=== PATIENT | male | born 1960 | race Caucasian/White ===

== ENCOUNTER → 2017-11-30 09:32 | Outpatient (CLI) | payer OTHER, SELFPAY ==
[2017-11-30 12:21] LABS: ALB/GLOB Ratio 0.9 RATIO (0.9-2.4); AST(SGOT) 29 U/L (15-37); Alanine Aminotransfer ALT/SGPT 60 U/L (16-61); Albumin, Serum 3.5 g/dL (3.2-5.0); Alkaline Phosphatase 19 U/L (45-117); Anion Gap 6 (5-15); BUN 20 mg/dL (7-18); BUN/Creat Ratio 16.7 RATIO (10-20); Calcium,Total 8.7 mg/dL (8.5-10.1); Chloride 103 mmol/L (98-107); Cholesterol 179 mg/dL (200); EST Glomerular Filtration Rate 66 mL/min (>60); Est Glom Filt Rate - Afr Amer 80 mL/min (>60); Globulin 3.8 g/dL (2.2-4.2); Glucose 101 mg/dL (74-106); High Density Lipoprotein 44 mg/dL; PSA,Total - Annual Screen 0.57 ng/mL (0.00-4.00); Potassium 3.9 mmol/L (3.5-5.1); Protein, Total 7.3 g/dL (6.4-8.2); Sodium Level 138 mmol/L (136-145); Triglycerides 98 mg/dL; Very Low Density Lipoprotein 20 mg/dL (5-40)
== END ==
PROVIDERS: Family Provider Family Medicine; PCP Family Medicine; Visit Provider Family Medicine
DX: I10 Essential (primary) hypertension (principal); R35.0 Frequency of micturition
CPT/HCPCS: 36415; 80053; 80061; 84153; G0103

== ENCOUNTER → 2018-03-16 14:08 | Outpatient (CLI) | payer OTHER, SELFPAY ==
[2018-03-16 10:17] VITALS: BMI 33.0
--- OUTSIDE RECORDS SUMMARY | 2018-05-11 13:40 | XMS RPT_ITS ---
:1960 Author Organization [place] Support Name Relationship Address Phone [facility] Unavailable [address] + [place] [address] [facility] Unavailable [address] + [place] [address] [facility] Unavailable [address] + [place] [address] [facility] Unavailable [address] + [place] [address] [facility] Unavailable [address] + [place] [address] [facility] Unavailable [address] + [place] [address] [facility] Unavailable [address] + [place] [address] [facility] Unavailable [address] + [place] [address] [facility] Unavailable [address] + [place] [address] [facility] Unavailable [address] + [place] [address] [facility] Unavailable [address] + [place] [address] [facility] Unavailable [address] + [place] [address] [facility] Unavailable [address] + [place] [address] [facility] Unavailable [address] + [place] [address] [facility] Unavailable [address] + [place] [address] TRACY JACQUES/BETZY Unavailable [address] [facility] + [place] [address] CHARAN JACQUES Unavailable Unavailable + CHARAN JACQUES Unavailable Unavailable + [facility] Unavailable [address] + [place] [address] SAWYERTRACY Mcmanus/BETZY Unavailable [address] + [place] [address] Care Team Providers Name Role Phone ANUEL JAIMES, MR. SANDOVAL Attending Unavailable BROWN, GABINO Primary Care Unavailable EDE AGEE (THEODORE) Referring Unavailable Shabana Reeves Attending Unavailable Brown, Gabino Primary Care Unavailable Harvey, Juan Alberto [employer] Consulting Unavailable Liliane Santos Attending Unavailable Brown, Gabino Attending Unavailable Brown, Gabino Referring Unavailable Brown, Gabino Primary Care Unavailable Harvey, Juan Alberto [employer] Attending Unavailable Harvey, Juan Alberto [employer] Referring Unavailable Brown, Gabino Primary Care Unavailable Ede Agee Attending Unavailable Brown, Gabino Primary Care Unavailable Harvey, Juan Alberto [employer] Attending Unavailable Brown, Gabino Primary Care Unavailable Harvey, Juan Alberto [employer] Consulting Unavailable Harvey, Juan Alberto [employer] SAL[employer] Attending Unavailable Brown, Gabino Primary Care Unavailable Brown, Gabino Attending Unavailable Brown, Gabino Referring Unavailable Harvey, Juan Alberto [employer] Attending Unavailable Brown, Gabino Referring Unavailable Harvey, Juan Alberto [employer] SAL[employer] Attending Unavailable Brown, Gabino Referring Unavailable Harvey, Juan Alberto [employer] Attending Unavailable Brown, Gabino Referring Unavailable Brown, Gabino Attending Unavailable Brown, Gabino Referring Unavailable Brown, Gabino Attending Unavailable Brown, Gabino Referring Unavailable Harvey, Juan Alberto [employer] Attending Unavailable Brown, Gabino Attending Unavailable Brown, Gabino Referring Unavailable Brown, Gabino Primary Care Unavailable PROBLEMS PROBLEMS DATE TYPE CONDITION / CODE ATTENDING STATUS SOURCE 03/19/2018 Unknown T81.89XA - Other Juan Alberto Harvey Active [place] complications of [employer] Community procedures, not Hospital elsewhere Repository classified, initial encounter / T81.89XA(ICD-10) 01/30/2018 Unknown I10 - Essential Juan Alberto Harvey Active [place] (primary) [employer] Community hypertension / Hospital I10(ICD-10) Repository 11/30/2017 Unknown R35.0 - Frequency Brown, Gabino Active [place] of micturition / Community R35.0(ICD-10) Hospital Repository 05/04/2017 Active Unknown / NA Active [facility] UNK(Unknown) [facility] [place] Repository 03/16/2017 Unknown LOW BACK PAIN / Ede Agee Active [place] M54.5(ICD-10) [facility] Repository PROCEDURES PROCEDURES No Procedure Records FoundRESULTS RESULTS INTERNAL MEDICINE Observed: 04/03/2018 Status: F Source: [place] OFFICE VISIT 1:10 PM [facility] [place] [address] [place] [address] [place] [address] OFFICE VISIT Date of Service: 04/03/18 MR#: [id number] Acct: [id number] Name: FERMIN JACQUES Rep #: [id number] : 1960 Provider: Gabino Gandhi DO Age/Sex: 57/M Location: [facility] Status: Signed Intake Vital Signs04/03/18 Body Mass Index (BMI) 33.0 04/03/18 Height 6 ft 1 in Intake Visit Reasons: new wound starting on back 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: Incision on back draining Is patient in pain?: Yes (left leg) Allergies No Known Allergies Allergy (Verified 03/16/18 10:16) Medications albuterol sulfate HFA 90 mcg/actuation aerosol inhaler 2 puff INHALATION Q6H PRN 11/22/17 [History Confirmed 03/16/18] diclofenac 1 % topical gel 2 g TOPICAL ONCE 11/29/17 [History Confirmed 03/16/18] cyclobenzaprine 10 mg tablet 5 - 10 mg PO TID PRN #30 tab 01/30/18 [Rx Confirmed 03/16/18] ibuprofen 800 mg tablet 800 mg PO BID-TID PRN #30 tab 01/30/18 [Rx Confirmed 03/16/18] lisinopril 10 mg tablet 10 mg PO DAILY #90 tab 01/30/18 [Rx Confirmed 03/16/18] amoxicillin 875 mg-potassium clavulanate 125 mg tablet 1 tab PO BID 03/16/18 [History Confirmed 03/16/18] PFSH Medical History Hypertension (Chronic) Neuroma (Chronic) LEYDI (obstructive sleep apnea) (Acute) Surgical History History of anal fissures (Acute) History of colonoscopy (Acute) History of orthopedic surgery (Acute) History of umbilical hernia repair (Acute) Family History Grandfather Cancer Father Prostate cancer Grandfather CVA (cerebral vascular accident) Social History Smoking Status: Never smoker how long ago did patient quit smokin alcohol intake: never substance use type: does not use HPI HPI 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: Incision on back draining Details: FERMIN JACQUES, is a 57 M who presents to the office today for evaluation of a new lesion on the back, intermittent left thigh pain, and stiffness of his ring finger and his left hand. ROS Const Constitutional: No weight change, body ache, chills, fatigue, sleep problems, fever(s), change in appetite, snoring, weakness, frequent falls, headache(s) or excessive sweating Eyes Eyes: No change in vision, eye pain, light sensitivity or blurry vision ENT ENT: No headache(s), abnormal hearing, ear pain, tinnitus, nasal congestion, sore throat or neck pain Resp Respiratory: No snoring, cough, shortness of breath or wheezing Cardio Cardiology: No excessive sweating, chest pain at rest, chest pain with exertion, shortness of breath, dyspnea on exertion, palpitations, orthopnea or lightheadedness Gastro GI: No abdominal pain, change in bowel habits, constipation, diarrhea, vomiting, nausea/dyspepsia or cramping Genitourinary Male: No painful urination, urinary incontinence, urinary frequency, urinary urgency, blood in urine, testicle pain or other Musc Musculoskeletal: Positive for joint pain (left hand joints) and other (upper left thigh is sore and tingling); no neck pain, abnormal walking, back pain, limited range of motion, numbness, tingling or muscle weakness Skin Skin: Positive for other (cyst on back ); no redness, dry skin, itching, lesions, wounds or rash Breast Breast: Positive for other (cyst on back ) Neuro Neurology: No weakness, frequent falls, headache(s), abnormal hearing, abnormal walking, numbness, tingling, abnormal speech, dizziness or memory loss Psych Psychiatric: No change in appetite, No memory loss, No anxiety, No depression, No Thoughts of harming yourself/Others Endo Endocrine: No fatigue, excessive sweating, cold intolerance, increased thirst/drinking, heat intolerance, flushing or increased hunger Aller/Imm Allergy/Immunologic: No wheezing, itchy eyes, hives or seasonal allergy symptoms Leland/Lymp Hematologic/Lymphatic: No easy bleeding, easy bruising or enlarged lymph nodes Exam Const General: healthy appearing Nutritional Appearance: well nourished Musc Musculoskeletal: No joint tenderness, joint redness, joint warmth, decreased ROM, spinal deformity, scoliosis to L, scoliosis to R, lordosis or muscle weakness Skin Lesions: lesion noted (1 cm lesion, clear drainage no erythema) Neuro General: oriented x3 Cranial Nerves: CN's II-XI intact bilaterally Extrem General: normal to inspection Assessment AND Plan Problems 1. Nonhealing surgical wound T81.89XA 2. Hypertension I10 3. Radicular low back pain M54.10 Plan Patient had a very small less than 1 cm superficial skin cyst almost look just like a pimple that had tended over and was draining clear ear fluid. I marsupialized this lesion using silver nitrate told him to keep it covered with antibiotic ointment and to have it followed up by the wound clinic at the same time he has the chronic draining wound on his left side evaluated. The pain in the thigh appeared to be radicular and coming from the back he sees a chiropractor for this. And the right hand pain and could be an early tenosynovitis but he had really no restriction it was just more comfortable when he flexed his fingers and when he extended him I suggested using capsaicin cream for that and if that did not work perhaps referring him to hand surgeon for an injection. Coding Level of Care Code Off vis,est,level 3 Diagnoses Nonhealing surgical wound T81.89XA Hypertension I10 Radicular low back pain M54.10 04/03/18 1310 <Electronically signed by Gabino Gandhi DO> Date Gabino Gandhi DO Cosigner Signature: Date (if applicable) CC: WOUND CTR HISTORY Observed: 03/22/2018 Status: F Source: [place] AND PHYSICAL 5:39 PM [facility] [address] [place] [address] Wound Ctr History AND Physical 03/22/18 1726 MR#: [id number] Acct: [id number] Name: FERMIN JACQUES Rep #: [id number] : 1960 57 From: Juan Alberto Harvey [employer] PCP: Gabino Gandhi, DO Status: REG RCR Y Location: WC (1) Nonhealing surgical wound Status: Acute Current Visit: Yes Code(s): T81.89XA - Other complications of procedures, not elsewhere classified, initial encounter (2) Hypertension Status: Chronic Current Visit: No Code(s): I10 - Essential (primary) hypertension (3) Sebaceous cyst Status: Chronic Current Visit: No Code(s): L72.3 - Sebaceous cyst History of Present Illness Date of Service: 03/22/18 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: Nonhealing wound on left lumbar back status post sebaceous cyst I AND D on 02/14/2018 History of Wound: February 14, 2018 the patient had an i and d of a sebaceous cyst by his PCP. The patient has had ongoing moderate amount of serosanguineous drainage and nonhealing of the area since. The patient presents today and states the area is still draining bloody drainage. His does dressing changes to the site daily with christie, which she is currently out of. He has been doing the Christie for approximately 4 weeks. He denies any other treatments and denies any other aggravating or relieving factors. A recent wound culture was taken last week and was negative. He denies fever chills or other signs of infection. The patient otherwise denies any fever, chills, nausea, vomiting, shortness of breath, chest pain or pressure, palpitations, orthopnea, lower extremity edema, syncope or presyncopal episodes. Past Medical History Past Medical History: Chronic Problems (Last Reviewed 03/16/18 @ 10:09 by Val Yanez) Sebaceous cyst (Chronic) Hypertension (Chronic) Neuroma (Chronic) Surgical History: - Allergies/Adverse Reactions: Allergies No Known Allergies Allergy (Verified 03/16/18 10:16) Home Medications: Ambulatory Orders Medication Instructions Recorded albuterol sulfate HFA 90 2 puff INHALATION Q6H PRN 11/22/17 - Family History Paternal Family History: Family History (Last Reviewed 03/16/18 @ 10:09 by Val Yanez) Grandfather Cancer Father Prostate cancer Grandfather CVA (cerebral vascular accident) Cancer - Prostate, - - Strip colon polyps Smoking Status: Never smoker Review of Systems Constitutional: Denies: Chills, Fever, Weight Change Eyes: Denies: Pain, Vision Change HEENT: Denies: Difficulty Hearing, Difficulty Swallowing, Sinus Congestion Cardiovascular: Denies: Chest Pain, Palpitations Respiratory: Denies: Cough, Shortness of Breath Gastrointestinal: Denies: Diarrhea, Nausea, Vomiting Genitourinary: Denies: Dysuria, Hematuria Skin: Reports: Wounds - See HPI Endocrine: Denies: Heat/ Cold Intolerance, Polydipsia, Polyuria Hematologic/ Lymphatic: Denies: Easy Bruising, Easy Bleeding - Physical Exam Vital Signs Temp Pulse Resp BP 98.2 F 101 H 16 133/79 H 03/22/18 13:32 03/22/18 13:32 03/22/18 13:32 03/22/18 13:32 General: Alert, Oriented x3, Cooperative, No apparent distress HEENT: Atraumatic Oral: Moist Mucosa Lungs: Clear to auscultation, Normal air movement Cardiovascular: Regular rate, Regular Rhythm Abdomen: Bowel Sounds Present, Soft, Non Tender, Non-Distended, Obese Extremities: No clubbing, No cyanosis, No edema, Peripheral Pulses Normal Skin: Ulcer/ Wound - Nonhealing postsurgical wound I AND D of the left lumbar back with adherent slough in wound bed, no signs of obvious infection at this time, site was tender to palpation. No fluctuance felt. 0.5 circular undermining Wound Measurements and Assessment WC - Nurse 1 - General Ulcer Measurement Start: 03/22/18 13:32 Freq: Status: Active Protocol: Activity Type Activity Date Activity User E-Sign Co-Sign Detail Recorded Client Recorded Date Recorded By Document 03/22/18 13:32 [id number] 03/22/18 13:53 Wound Center Nurse 1 [Ulcer Assessment] #1 left lumbar back non healing post WC - Nurse 2 - General Ulcer CM Notes Start: 03/22/18 13:32 Freq: Status: Active Protocol: Activity Type Activity Date Activity User E-Sign Co-Sign Detail Recorded Client Recorded Date Recorded By Document 03/22/18 14:25 [id number] 03/22/18 14:46 Wound Center Nurse 2 [Procedure/Treatment] #1 left lumbar back non healing post surgical -Time 14:34 -Correct Patient Yes -Correct Side, Site, Position Yes Musculoskeletal: No Tenderness to Palpation of Joints or Extremities, No Muscle Wasting Lymphatic: No Cervical, Supraclavicular, or Inguinal Adenopathy Neurological: Neuro grossly intact Psych/Mental Status: Normal Affect, Appropriate, Alert and oriented to time, place, person, mood and affect Debridement Note Post-Debridement Measurements/Treatment - Nurse 2 - General Ulcer CM Notes Start: 03/22/18 13:32 Freq: Status: Active Protocol: Activity Type Activity Date Activity User E-Sign Co-Sign Detail Recorded Client Recorded Date Recorded By Document 03/22/18 14:25 [id number] 03/22/18 14:46 Wound Center Nurse 2 #1 left lumbar back non healing post Wound debrided: Nonhealing postsurgical wound left lumbar status post I AND D sebaceous cyst Laterality: Left Type of Debridement: Excisional debridement Anesthesia Used: 5% Lidocaine Gel, - - Lidocaine and epinephrine injection for localized anesthesia Depth: in the subcutaneous layer Percentage of wound debrided: 100 Instrument Used: 7mm curette, #15 blade, Forceps Tissue Removed: After site was anesthetized, excess necrotic tissue excised and slough Severity: Fat Layer Exposed Amount of bleeding with debridement: Mild Bleeding Controlled with: Pressure Patient tolerated procedure well Assessment/Plan Active Problems (Last Reviewed 03/16/18 @ 10:09 by Val Yanez) Nonhealing surgical wound (Acute) Assessment: Nonhealing post surgical wound status post I AND D sebaceous cyst Plan: The patient was seen and examined at the wound center today and was updated on the plan of care. A subcutaneous debridement was performed today. The patient tolerated the procedure well. The patients wound care will consist of: Packing the site with Christie daily, will apply for snapvac given the serosanguineous drainage and depth and will also apply for pure apply given the fact that he has had standard wound care times 4 weeks and still has delayed healing. Wound cultures were collected last week and were negative. Baseline bloodwork reviewed from PCP and an A1c should be ordered next week. Patient educated on the importance of diet on wound healing and instructed to increase protein and vitamin C intake. Patient verbalized understanding. Patient will follow up at wound healing center in one week or sooner if needed. Patient is leaving for a [facility] trip and is only able to be seen on Monday of the following week. He will be seen by Yamileth STAUFFER for his pure apply application and VAC application. Pending insurance approval. This note was generated with [employer]so[employer] dictation software. It may contain incorrect words, spelling, and punctuation that were not noted in checking the note before signing. Code Visit Office Visits / Consults: 38481 OV L3 Est 111xxx-113xx: [id number] Pooja subq tissue 20 sq cm/< 03/22/18 1739 <Electronically signed by Juan Alberto DOMINGUEZ> Date Juan Alberto DOMINGUEZ CC: Signed INTERNAL MEDICINE Observed: 03/19/2018 Status: F Source: [place] OFFICE VISIT 12:12 PM [facility] [place] [address] [place] [address] OFFICE VISIT Date of Service: 03/16/18 MR#: [id number] Acct: [id number] Name: FERMIN JACQUES Rep #: [id number] : 1960 Provider: Juan Alberto Harvey NP Age/Sex: 57/M Location: [facility] Status: Signed Intake Vital Signs03/16/18 Body Mass Index (BMI) 33.0 03/16/18 Height 6 ft 1 in Intake Visit Reasons: 2 week follow up 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: Incision on back draining Is patient in pain?: No Allergies No Known Allergies Allergy (Verified 03/16/18 10:16) Medications albuterol sulfate HFA 90 mcg/actuation aerosol inhaler 2 puff INHALATION Q6H PRN 11/22/17 [History Confirmed 03/16/18] diclofenac 1 % topical gel 2 g TOPICAL ONCE 11/29/17 [History Confirmed 03/16/18] cyclobenzaprine 10 mg tablet 5 - 10 mg PO TID PRN #30 tab 01/30/18 [Rx Confirmed 03/16/18] ibuprofen 800 mg tablet 800 mg PO BID-TID PRN #30 tab 01/30/18 [Rx Confirmed 03/16/18] lisinopril 10 mg tablet 10 mg PO DAILY #90 tab 01/30/18 [Rx Confirmed 03/16/18] amoxicillin 875 mg-potassium clavulanate 125 mg tablet 1 tab PO BID 03/16/18 [History Confirmed 03/16/18] Nurse's Note: Pt presents for a 2 wk f/u. [facility] Medical History Hypertension (Chronic) Neuroma (Chronic) LEYDI (obstructive sleep apnea) (Acute) Surgical History History of anal fissures (Acute) History of colonoscopy (Acute) History of orthopedic surgery (Acute) History of umbilical hernia repair (Acute) Family History Grandfather Cancer Father Prostate cancer Grandfather CVA (cerebral vascular accident) Social History Smoking Status: Former smoker how long ago did patient quit smokin alcohol intake: never substance use type: does not use HPI HPI 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: Incision on back draining Details: FERMIN JACQUES, is a 57 M who presents to the office today for follow-up from i and d sebaceous cyst. The patient has a past medical history as listed above. February 14, 2018 the patient had an i and d of a sebaceous cyst in office. The patient has had ongoing drainage and nonhealing of the area since. The patient presents today and states the area is still draining bloody drainage. His does dressing changes to the site daily with christie. He denies fever chills or other signs of infection. The patient otherwise denies any fever, chills, nausea, vomiting, shortness of breath, chest pain or pressure, palpitations, orthopnea, lower extremity edema, syncope or presyncopal episodes. ROS Const Constitutional: No anorexia, body ache, chills, fever(s), decreased energy, malaise, night sweats, weight change, sleep problems, other, snoring, weakness, frequent falls, headache(s), abnormal sleep pattern, change in appetite, excessive sweating or fatigue Eyes Eyes: No blurry vision, change in vision, double vision, discharge, dry eyes, bulging eyes, floaters, eye pain, light sensitivity, spots in vision, tunnel vision, other or visual disturbances ENT ENT: No ear pain, ear discharge, ear pressure, hearing loss, tinnitus, dizziness/vertigo, balance problems, nosebleed/epistaxis, nasal congestion, nasal obstruction, nose pain, sinus pressure, sinus pain, nasal discharge, post nasal drip, facial pain, dental pain, dry mouth, bad breath, hoarseness, mouth lesions, mouth pain, sore throat, difficulty swallowing, neck pain, abnormal hearing, headache(s), other, lip swelling, throat swelling or tongue swelling Resp Respiratory: No cough, change in phlegm color, chest congestion, excessive phlegm production, hemoptysis, pain on inspiration, shortness of breath, pain with cough, snoring, stridor, other or wheezing Cardio Cardiology: No chest pain at rest, chest pain with exertion, leg pain with exertion, shortness of breath, dyspnea on exertion, generalized swelling, irregular heart rhythm, lightheadedness, orthopnea, radiating jaw, neck or arm pain, fast heart rate, slow heart rate, palpitations, other or excessive sweating Gastro GI: No abdominal pain, belching, bloating, change in bowel habits, change in stool character, coffee ground emesis, constipation, cramping, diarrhea, heartburn, difficulty swallowing, feeling full early, excessive flatus, incontinent of stools, Vomiting blood/hematemesis, blood in stool, loose stools, Black,tarry stools, nausea/dyspepsia, pain with swallowing, vomiting or other Genitourinary Male: No difficulty urinating, burning urination, painful urination, urinary incontinence, urinary frequency, urinary urgency, urinary hesitancy, urinary retention, blood in urine, Frequent nighttime urination/ nocturia, post void dribbling, suprapubic fullness, side pain, sexual problems, genital lesions, genital itching, erectile dysfunction, penile discharge, difficulty with ejaculations, blood in semen, scrotal swelling, testicle lump, testicle pain or other Musc Musculoskeletal: No joint pain, back pain, deformity, joint swelling, limited range of motion, loss of height, muscle cramps, decreased muscle mass, body aches, neck pain, radiating pain into limb, stiffness, other, abnormal walking, numbness or tingling Skin Skin: No acne, hair loss, change in hair, nail changes, boil, change in skin color, dry skin, redness, excessive hair growth, yellowing of the skin, lesions, rash, skin pain, skin ulcer, sores, skin swelling, wounds, other or itching Breast Breast: No change in breast shape, breast lump, breast pain, breast skin changes, breast swelling, nipple discharge or other Neuro Neurology: No abnormal walking, abnormal hearing, abnormal movements, abnormal speech, unsteady gait/balance, dizziness, weakness, frequent falls, headache(s), lack of coordination, loss of vision, numbness, tingling, visual disturbances, restless legs, fainting, tremor(s), other, behavioral changes, confusion or memory loss Psych Psychiatric: No abnormal sleep pattern, No lack of enjoyment, No anxiety, No behavioral changes, No change in appetite, No confusion, No depression, No difficulty concentrating, No hopelessness, No irritability, No memory loss, No mood swings, No panic attacks, No paranoia, No Thoughts of harming yourself/Others, No hallucinations, No other Endo Endocrine: No change in body appearance, cold intolerance, excessive sweating, fatigue, flushing, heat intolerance, increased thirst/drinking, increased hunger, increased urination or other Aller/Imm Allergy/Immunologic: No food intolerance, itchy eyes, lip swelling, seasonal allergy symptoms, throat swelling, tongue swelling, hives, wheezing or other Leland/Lymp Hematologic/Lymphatic: No easy bleeding, easy bruising, enlarged lymph nodes or other Exam Const General: cooperative, comfortable, no acute distress Nutritional Appearance: average body habitus, well nourished Orientation: alert, oriented x3 Limitations: mental status not altered [facility]: normal to inspection Ears: hearing grossly normal bilaterally Nose: external nose normal Eyes General: appearance normal, both eyes and all related structures Resp Effort AND Inspection: normal respiratory effort, able to speak in complete sentences, normal respiratory pattern, symmetric chest movement, no audible wheezes, no cough Auscultation: Bilateral: Clear to Auscultation Cardio Palpation: normal PMI Rate: regular rate Heart Sounds: S1 normal, S2 normal, normal S1 and S2, no click, no gallops, no murmurs, no rubs Skin General: no rashes or lesions noted Lesions: no lesions Rashes: no rashes Wounds: wounds noted (Left side mid back) Hair: normal Nails: normal Other: Incisional wound approximately 1 cm x 0.5 cm by 0.4 cm. Tunneling from 11:00 to 1:00 of 1.2 cm Neuro General: alert, awake, oriented x3, CN's II-XI intact bilaterally Speech: speech normal Gait: normal gait Motor: muscle tone normal throughout Extrem General: normal to inspection, normal gait, no edema, no pedal edema Psych Appearance: grossly normal Mental Status: mental status grossly normal Affect: normal affect Attitude: cooperative Thought Process: normal Assessment AND Plan Problems 1. Sebaceous cyst L72.3 Plan Repeat wound culture today due to delayed healing, no obvious clinical infection. Refer to wound center. Continue daily dressing changes until seen by wound center. Patient educated on signs and symptoms that would warrant emergency medical care. This note was generated with Isoflux dictation software. It may contain incorrect words, spelling, and punctuation that were not noted in checking the note before signing. Orders Orders: Referrals: Coding Level of Care Code No Charge Diagnoses Sebaceous cyst L72.3 03/19/18 1212 <Electronically signed by Juan Alberto DOMINGUEZ> Date Juan Alberto DOMINGUEZ Cosigner Signature: Date (if applicable) CC: Observed: 03/16/2018 Status: F Source: [place] CULTURE, WOUND 2:24 PM [facility] [facility] [place] Gram Stain Gram Stain 3+ Red Blood Cells 2+ White Blood Cells No organisms seen Wound Culture No growth aerobically. Performed By: #### [id number] #### [facility] [place], [id number] PROGRESS Observed: 03/10/2018 Status: COMPLETED Source: [place] 9:21 AM [facility] [place] REPOSITORY HNO ID: [id number] Author: Lebron Worthy Service: (none) Author Type: Nurse Practitioner Type: Progress Notes Filed: 03/10/2018 9:42 AM Note Text: Subjective HPI Fermin Jacques is a 57 year old male who presents with cough, sore throat, and head congestion, and left sided sinus pain for the past 10 days. He has used dayquil/nyquil and oregano nasal spray. Review of Systems Constitutional: Positive for chills. Negative for fever. HENT: Positive for congestion, sinus pain and sore throat. Respiratory: Positive for cough, sputum production and shortness of breath (occasional). Cardiovascular: Negative. Negative for chest pain. Gastrointestinal: Negative for nausea and vomiting. BP 106/72 Pulse 101 Temp 36.4 ?C (97.6 ?F) (Left Tympanic) Resp 20 Wt 112.4 kg (247 lb 12.8 oz) SpO2 98% BMI 33.61 kg/m? PAST MEDICAL HISTORY Diagnosis Date - Anal fissure - Anal fistula - Diverticulosis of colon (without mention of hemorrhage) - Hemorrhage of rectum and anus - Sleep apnea PAST SURGICAL HISTORY Procedure Laterality Date - COLONOSCOP W/ OR W/O [facility] 06/20/08 Sigmoid diverticulosis/anal scarring - FISTULECT/FISTULOT, SUBMUSCULAR [facility] - REPAIR UMBILICAL PRABHA,5+Y/O,REDUC 01/16/06 ALLERGIES Nka [Other] MEDICATIONS famotidine (PEPCID) 20 mg tablet Take 1 tablet by mouth at bedtime as needed. albuterol HFA (PROAIR HFA) 90 mcg/actuation inhaler Inhale 2 Puffs as instructed every 4 hours as needed. Diclofenac Sodium (VOLTAREN) 1 % gel Apply 1 g to affected area twice daily. lisinopril 10 mg ORAL tablet Take 10 mg by mouth once daily. FAMILY HISTORY Problem Relation Age of Onset - other (RSD [Other]) Mother - Prostate Cancer Father Social History Substance Use Topics - Smoking status: Never Smoker - Smokeless tobacco: Never Used - Alcohol use No Objective Physical Exam Constitutional: He is well-developed, well-nourished, and in no distress. HENT: Right Ear: Tympanic membrane, external ear and ear canal normal. Left Ear: Tympanic membrane, external ear and ear canal normal. Nose: Mucosal edema, rhinorrhea and sinus tenderness present. Left sinus exhibits maxillary sinus tenderness. Mouth/Throat: Uvula is midline, oropharynx is clear and moist and mucous membranes are normal. No posterior oropharyngeal edema or posterior oropharyngeal erythema. Eyes: Conjunctivae are normal. Neck: Neck supple. Cardiovascular: Normal rate and regular rhythm. Pulmonary/Chest: Effort normal and breath sounds normal. No respiratory distress. He has no wheezes. He has no rales. Lymphadenopathy: He has no cervical adenopathy. Neurological: He is alert. Skin: Skin is warm and dry. Nursing note and vitals reviewed. ASSESSMENT/PLAN: 1. Sinobronchitis - ICD9: 473.9, 490, ICD10: J32.9, J40 - Will begin treatment with Augmentin 875 mg PO BID for 10 days - Supportive care with plenty of fluids, rest, and analgesia prn. - FLUTICASONE 50 MCG/ACTUATION NASAL SPRAY,SUSPENSION - AMOXICILLIN 875 MG-POTASSIUM CLAVULANATE 125 MG TABLET - Follow-up with your PCP in 3-5 days if symptoms have not improved or sooner if symptoms worsen - Discussed red flags and need for immediate medical evaluation if any occur. - Discussed supportive care treatment with fluids, rest and analgesia. - Discussed expected course of illness Lebron Worthy APRN.FREDERIC GALLEGOSOV Observed: 03/10/2018 Status: COMPLETED Source: [place] 9:15 AM [facility] REPOSITORY Office Visit ([facility]) FERMIN JACQUES ([id number]) 1960 M Date Time Provider Department 03/10/18 9:15 AM LEBRON WORTHY (FREDERIC) [facility] During your visit today, we recorded the following information about you: Temperature Pulse Respiration Blood pressure 97.6 degrees 101/minute 20/minute 106/72 Weight 112.4 kg Lebron Worthy APRN.FREDERIC 03/10/2018 9:42 AM Signed Subjective HPI Fermin Jacques is a 57 year old male who presents with cough, sore throat, and head congestion, and left sided sinus pain for the past 10 days. He has used dayquil/nyquil and oregano nasal spray. Review of Systems Constitutional: Positive for chills. Negative for fever. HENT: Positive for congestion, sinus pain and sore throat. Respiratory: Positive for cough, sputum production and shortness of breath (occasional). Cardiovascular: Negative. Negative for chest pain. Gastrointestinal: Negative for nausea and vomiting. BP 106/72 Pulse 101 Temp 36.4 ?C (97.6 ?F) (Left Tympanic) Resp 20 Wt 112.4 kg (247 lb 12.8 oz) SpO2 98% BMI 33.61 kg/m? PAST MEDICAL HISTORY Diagnosis Date - Anal fissure - Anal fistula - Diverticulosis of colon (without mention of hemorrhage) - Hemorrhage of rectum and anus - Sleep apnea PAST SURGICAL HISTORY Procedure Laterality Date - COLONOSCOP W/ OR W/O [facility]C 06/20/08 Sigmoid diverticulosis/anal scarring - FISTULECT/FISTULOT, SUBMUSCULAR [facility] - REPAIR UMBILICAL PRABHA,5+Y/O,REDUC 01/16/06 ALLERGIES Nka [Other] MEDICATIONS famotidine (PEPCID) 20 mg tablet Take 1 tablet by mouth at bedtime as needed. albuterol HFA (PROAIR HFA) 90 mcg/actuation inhaler Inhale 2 Puffs as instructed every 4 hours as needed. Diclofenac Sodium (VOLTAREN) 1 % gel Apply 1 g to affected area twice daily. lisinopril 10 mg ORAL tablet Take 10 mg by mouth once daily. FAMILY HISTORY Problem Relation Age of Onset - other (RSD [Other]) Mother - Prostate Cancer Father Social History Substance Use Topics - Smoking status: Never Smoker - Smokeless tobacco: Never Used - Alcohol use No Objective Physical Exam Constitutional: He is well-developed, well-nourished, and in no distress. HENT: Right Ear: Tympanic membrane, external ear and ear canal normal. Left Ear: Tympanic membrane, external ear and ear canal normal. Nose: Mucosal edema, rhinorrhea and sinus tenderness present. Left sinus exhibits maxillary sinus tenderness. Mouth/Throat: Uvula is midline, oropharynx is clear and moist and mucous membranes are normal. No posterior oropharyngeal edema or posterior oropharyngeal erythema. Eyes: Conjunctivae are normal. Neck: Neck supple. Cardiovascular: Normal rate and regular rhythm. Pulmonary/Chest: Effort normal and breath sounds normal. No respiratory distress. He has no wheezes. He has no rales. Lymphadenopathy: He has no cervical adenopathy. Neurological: He is alert. Skin: Skin is warm and dry. Nursing note and vitals reviewed. ASSESSMENT/PLAN: 1. Sinobronchitis - ICD9: 473.9, 490, ICD10: J32.9, J40 - Will begin treatment with Augmentin 875 mg PO BID for 10 days - Supportive care with plenty of fluids, rest, and analgesia prn. - FLUTICASONE 50 MCG/ACTUATION NASAL SPRAY,SUSPENSION - AMOXICILLIN 875 MG-POTASSIUM CLAVULANATE 125 MG TABLET - Follow-up with your PCP in 3-5 days if symptoms have not improved or sooner if symptoms worsen - Discussed red flags and need for immediate medical evaluation if any occur. - Discussed supportive care treatment with fluids, rest and analgesia. - Discussed expected course of illness AJ Hyde APRN.CNP 03/10/2018 9:29 AM Signed ASSESSMENT/PLAN: 1. Sinobronchitis - ICD9: 473.9, 490, ICD10: J32.9, J40 - Will begin treatment with Augmentin 875 mg PO BID for 10 days - Supportive care with plenty of fluids, rest, and analgesia prn. - FLUTICASONE 50 MCG/ACTUATION NASAL SPRAY,SUSPENSION - AMOXICILLIN 875 MG-POTASSIUM CLAVULANATE 125 MG TABLET - Follow-up with your PCP in 3-5 days if symptoms have not improved or sooner if symptoms worsen - Discussed red flags and need for immediate medical evaluation if any occur. - Discussed supportive care treatment with fluids, rest and analgesia. - Discussed expected course of illness Lebron Worthy APRN.CNP Acute Sinusitis Each of us has four paired cavities (spaces) in our head that are connected to the nose by narrow channels. These cavities, known as sinuses, produce thin mucus that drains out of the channels of the nose. This drainage helps keep the nose clean and free of particles and bacteria. Normally, sinuses are filled with air. But when sinuses become blocked and filled with fluid, bacteria can grow and cause an infection (bacterial sinusitis). Conditions that cause sinus blockage include: ? the common cold ? allergic rhinitis (swelling of the lining of the nose due to allergies) ? nasal polyps (small growths in the lining of the nose), or ? a deviated septum (the wall between the left and right nostril is crooked). Allergies, such as hay fever, can also cause swelling and poor drainage of the sinuses. One confusing factor to consider is that many people with ?sinus headaches? are actually suffering from migraines. In fact, in large clinical studies, up to 90% of people who reported sinus headaches were diagnosed with migraines instead. Migraines can cause headaches in combination with facial pressure over the sinuses, a runny nose, and nasal congestion. If you have symptoms that involve the sinuses, it may be difficult to tell if you have sinusitis, a cold, nasal allergy, or even a migraine. This article will describe the symptoms, diagnosis, and treatment of sinusitis, and how to tell the difference between sinusitis, cold, migraines, and nasal allergy. What is sinusitis? Sinusitis is an inflammation, or swelling, of the tissue lining the sinuses. There are two types of sinusitis: ? Acute bacterial sinusitis: a sudden onset of cold symptoms such as runny nose, stuffy nose, and facial pain that does not go away after 10 days, or symptoms that seem to begin improving but return worse than the initial symptoms. It responds well to antibiotics and decongestants. ? Chronic sinusitis: a condition defined by nasal congestion, drainage, facial pain/pressure, and decreased sense of smell for at least 12 weeks. Who gets sinusitis? Every year, approximately 1 billion Americans have at least one episode of viral sinusitis. About 37 million will develop a bacterial sinusitis. People who have the following conditions have a higher risk of sinusitis: ? Nasal mucus membrane swelling, as from a common cold or allergies ? Blockage of drainage ducts, leading to trapping of mucus ? Structure differences that narrow the drainage ducts ? Conditions that result in an increased risk of infection ? Polyps (growths) In children, common factors in the environment that contribute to sinusitis include allergies, illness from other children at day care or school, and smoke in the environment. In adults, the contributing factors are most frequently viral infections, allergies, and smoking. What are the signs and symptoms of acute sinusitis? The primary symptoms of acute sinusitis include: ? Facial pain/pressure/tenderness ? Nasal stuffiness ? Nasal discharge (thick yellow or green discharge from nose), especially if it is long-lasting. These also may be present with viral illness. ? Loss of smell and taste ? Cough/congestion Additional symptoms may include: ? Fever of 102? or higher ? Ear pain ? Headache ? Bad breath ? Fatigue ? Ache in upper jaw and teeth How is sinusitis diagnosed? To diagnose sinusitis, your doctor will discuss your symptoms and examine your nose for swelling and drainage. Your personal history is most important in diagnosing sinusitis. A physical exam of the ears, nose, and throat is performed to look for signs of obstruction (blockage) or infection. Some patients may have conditions that may need to be referred to a specialist, such as an ear, nose, and throat (ENT) physician. How is sinusitis treated? Acute sinusitis. If you have a simple sinusitis infection, your health care provider may recommend treatment with [id number] medications for cold and allergy, nasal saline irrigation, and drinking fluids (as most sinusitis is viral). Use of prescription intranasal steroid sprays might be added to help control symptoms. However, non-prescription drops or sprays should not be used beyond 5 days -- or they may actually increase congestion. If symptoms do not improve after at least 10 days, if the symptoms seem to be getting worse, or if medications for cold or allergy do not improve symptoms, a bacterial infection may be causing the sinusitis. In this case, antibiotics are given for 7 days in adults and 10 days in children. Antibiotics should improve symptoms within 48 hours. Chronic sinusitis. Treating chronic sinusitis begins with controlling the underlying condition, which is most often allergies. Standard treatments include intranasal steroid sprays, topical antihistamine sprays, or antihistamine pills, and leukotriene antagonists such as montelukast. Often you will be encouraged to rinse the nose with saline irrigations. Sometimes medications may be added to these irrigations. If sinusitis is not controlled, the next step is a visit with an Ear, Nose and Throat Specialist. Will I need to make lifestyle changes? If you have indoor allergies, avoiding triggers -- such as animal dander and dust mites ? is recommended in addition to medications. Smoking is never recommended, but if you do smoke, strongly consider a program to help you stop smoking, as this may be the main reason you have sinus infections. No special diet is required, but drinking extra fluids helps to thin nasal secretions. What are the symptoms of the common cold? An upper respiratory infection (the common cold) is usually caused by a virus that infects the nose and throat. Most upper respiratory infections are not bacterial and do not respond to antibiotics. A cold may cause swelling in the sinuses, preventing the outflow of mucus. Cold symptoms include nasal congestion, runny nose, post-nasal drip (oeji-oc-tvty release of nasal fluid into the back of the throat), headache, achiness, and fatigue. Cough and fever may also go along with these symptoms. Cold symptoms usually build, peak, and slowly disappear. No treatment is necessary for a cold, but some medications can ease symptoms. For example, decongestants may decrease drainage and open the nasal passages. Analgesics (pain relievers) may help with fever and headache. Cough medication may help, as well. Colds will typically last from a few days to about a week. What is the harm in getting an antibiotic for a common cold? Viral infections like the common cold are not cured by antibiotics. Taking an antibiotic for a viral infection unnecessarily puts you at risk for side effects related to the antibiotic. In addition, the overuse of antibiotics leads to antibiotic resistance, which may make future infections more difficult to treat. Finally, the use of inappropriate medication increases health care costs unnecessarily. What are the symptoms of nasal allergy? Symptoms of nasal allergy include: ? Sneezing ? Itchy nose ? Clear, watery nasal discharge ? Nasal blockage ? Feeling fatigued How is nasal allergy treated? Usually medications are prescribed to relieve symptoms. These may include antihistamines, with or without decongestants, or steroid nasal sprays. Other nasal sprays, which deliver antihistamines or cromolyn sodium, are sometimes helpful. If allergy symptoms are chronic (long-term), allergy testing and allergy shots (immunotherapy) may be helpful. How can I tell if I have a sinus infection, cold, or nasal allergy? Although the symptoms of sinusitis and nasal allergy may occur with a common cold, in general, cold-related symptoms disappear within 1 week. The point at which a normal cold ends and a sinus condition begins is not always easy to know. If you are fighting off a cold and develop symptoms of a sinus infection or nasal allergy, see your health care provider. You will be asked to describe your symptoms and medical history. ? How do I know if my sinus condition requires the care of an ear, nose, and throat specialist? Most routine sinus conditions are easily cared for by primary care physicians. If, however, you are bothered by ongoing abnormal symptoms, recurring infections, or have abnormal X-ray findings or complications, a referral to a specialist is appropriate. References ? Carlo Schuster et al., IDSA Clinical Practice Guideline for Acute Bacterial Rhinosinusitis in Children and Adults. Clinical Infectious Diseases; 2012;54(8):2303-6858. ? Manuel Zheng, Sinusitis: Allergies, antibiotics, aspirin, asthma. [facility] Journal of Medicine 2006; 73(7): 671-678 ? [employer]. Sinusitis (Sinus Infection) Accessed 02/24/2015. ? [place] [employer], [employer]. Sinusitis Accessed 02/24/2015. ? [place] [employer]. Sinus Information Accessed 02/24/2015. ? Florentino FieldsP., Prevalence of migraine in patients with a history of self-reported or physician-diagnosed sinus headache. Arch Assistant [employer] Med, 2004. 164(16):1769-72. ? Copyright 4515-5293 [facility]. All rights reserved. Referring Provider: SELF [200] Allergies As of Date: 03/10/2018 Noted Allergy Reaction Nka [Other] 03/26/2003 Date Reviewed: 03/10/2018 Reviewed by: Lebron ([facility]) Zaynab - Fully Assessed Reason for Visit: URI [115] Cmt: x 1 week Primary Visit Diagnosis:Sinobronchitis [J32.9, J40] Order(s):fluticasone (FLONASE) 50 mcg/actuation nasal sprayUse 2 Sprays in each nostril once daily. 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 Sinobronchitis - ICD9: 473.9, 490, ICD10: J32.9, J40 - Will begin treatment with Augmentin 875 mg PO BID for 10 days - Supportive care with plenty of fluids, rest, and analgesia prn. - FLUTICASONE 50 MCG/ACTUATION NASAL SPRAY,SUSPENSION - AMOXICILLIN 875 MG-POTASSIUM CLAVULANATE 125 MG TABLET - Follow-up with your PCP in 3-5 days if symptoms have not improved or sooner if symptoms worsen - Discussed red flags and need for immediate medical evaluation if any occur. - Discussed supportive care treatment with fluids, rest and analgesia. - Discussed expected course of illness Lebron Worthy APRN.TAPE CALENDER Acute Sinusitis Each of us has four paired cavities (spaces) in our head that are connected to the nose by narrow channels. These cavities, known as sinuses, produce thin mucus that drains out of the channels of the nose. This drainage helps keep the nose clean and free of particles and bacteria. Normally, sinuses are filled with air. But when sinuses become blocked and filled with fluid, bacteria can grow and cause an infection (bacterial sinusitis). Conditions that cause sinus blockage include: ? the common cold ? allergic rhinitis (swelling of the lining of the nose due to allergies) ? nasal polyps (small growths in the lining of the nose), or ? a deviated septum (the wall between the left and right nostril is crooked). Allergies, such as hay fever, can also cause swelling and poor drainage of the sinuses. One confusing factor to consider is that many people with ?sinus headaches? are actually suffering from migraines. In fact, in large clinical studies, up to 90% of people who reported sinus headaches were diagnosed with migraines instead. Migraines can cause headaches in combination with facial pressure over the sinuses, a runny nose, and nasal congestion. If you have symptoms that involve the sinuses, it may be difficult to tell if you have sinusitis, a cold, nasal allergy, or even a migraine. This article will describe the symptoms, diagnosis, and treatment of sinusitis, and how to tell the difference between sinusitis, cold, migraines, and nasal allergy. What is sinusitis? Sinusitis is an inflammation, or swelling, of the tissue lining the sinuses. There are two types of sinusitis: ? Acute bacterial sinusitis: a sudden onset of cold symptoms such as runny nose, stuffy nose, and facial pain that does not go away after 10 days, or symptoms that seem to begin improving but return worse than the initial symptoms. It responds well to antibiotics and decongestants. ? Chronic sinusitis: a condition defined by nasal congestion, drainage, facial pain/pressure, and decreased sense of smell for at least 12 weeks. Who gets sinusitis? Every year, approximately 1 billion Americans have at least one episode of viral sinusitis. About 37 million will develop a bacterial sinusitis. People who have the following conditions have a higher risk of sinusitis: ? Nasal mucus membrane swelling, as from a common cold or allergies ? Blockage of drainage ducts, leading to trapping of mucus ? Structure differences that narrow the drainage ducts ? Conditions that result in an increased risk of infection ? Polyps (growths) In children, common factors in the environment that contribute to sinusitis include allergies, illness from other children at day care or school, and smoke in the environment. In adults, the contributing factors are most frequently viral infections, allergies, and smoking. What are the signs and symptoms of acute sinusitis? The primary symptoms of acute sinusitis include: ? Facial pain/pressure/tenderness ? Nasal stuffiness ? Nasal discharge (thick yellow or green discharge from nose), especially if it is long-lasting. These also may be present with viral illness. ? Loss of smell and taste ? Cough/congestion Additional symptoms may include: ? Fever of 102? or higher ? Ear pain ? Headache ? Bad breath ? Fatigue ? Ache in upper jaw and teeth How is sinusitis diagnosed? To diagnose sinusitis, your doctor will discuss your symptoms and examine your nose for swelling and drainage. Your personal history is most important in diagnosing sinusitis. A physical exam of the ears, nose, and throat is performed to look for signs of obstruction (blockage) or infection. Some patients may have conditions that may need to be referred to a specialist, such as an ear, nose, and throat (ENT) physician. How is sinusitis treated? Acute sinusitis. If you have a simple sinusitis infection, your health care provider may recommend treatment with [id number] medications for cold and allergy, nasal saline irrigation, and drinking fluids (as most sinusitis is viral). Use of prescription intranasal steroid sprays might be added to help control symptoms. However, non- prescription drops or sprays should not be used beyond 5 days -- or they may actually increase congestion. If symptoms do not improve after at least 10 days, if the symptoms seem to be getting worse, or if medications for cold or allergy do not improve symptoms, a bacterial infection may be causing the sinusitis. In this case, antibiotics are given for 7 days in adults and 10 days in children. Antibiotics should improve symptoms within 48 hours. Chronic sinusitis. Treating chronic sinusitis begins with controlling the underlying condition, which is most often allergies. Standard treatments include intranasal steroid sprays, topical antihistamine sprays, or antihistamine pills, and leukotriene antagonists such as montelukast. Often you will be encouraged to rinse the nose with saline irrigations. Sometimes medications may be added to these irrigations. If sinusitis is not controlled, the next step is a visit with an Ear, Nose and Throat Specialist. Will I need to make lifestyle changes? If you have indoor allergies, avoiding triggers -- such as animal dander and dust mites ? is recommended in addition to medications. Smoking is never recommended, but if you do smoke, strongly consider a program to help you stop smoking, as this may be the main reason you have sinus infections. No special diet is required, but drinking extra fluids helps to thin nasal secretions. What are the symptoms of the common cold? An upper respiratory infection (the common cold) is usually caused by a virus that infects the nose and throat. Most upper respiratory infections are not bacterial and do not respond to antibiotics. A cold may cause swelling in the sinuses, preventing the outflow of mucus. Cold symptoms include nasal congestion, runny nose, post- nasal drip ([id number]-[id number]-[id number] release of nasal fluid into the back of the throat), headache, achiness, and fatigue. Cough and fever may also go along with these symptoms. Cold symptoms usually build, peak, and slowly disappear. No treatment is necessary for a cold, but some medications can ease symptoms. For example, decongestants may decrease drainage and open the nasal passages. Analgesics (pain relievers) may help with fever and headache. Cough medication may help, as well. Colds will typically last from a few days to about a week. What is the harm in getting an antibiotic for a common cold? Viral infections like the common cold are not cured by antibiotics. Taking an antibiotic for a viral infection unnecessarily puts you at risk for side effects related to the antibiotic. In addition, the overuse of antibiotics leads to antibiotic resistance, which may make future infections more difficult to treat. Finally, the use of inappropriate medication increases health care costs unnecessarily. What are the symptoms of nasal allergy? Symptoms of nasal allergy include: ? Sneezing ? Itchy nose ? Clear, watery nasal discharge ? Nasal blockage ? Feeling fatigued How is nasal allergy treated? Usually medications are prescribed to relieve symptoms. These may include antihistamines, with or without decongestants, or steroid nasal sprays. Other nasal sprays, which deliver antihistamines or cromolyn sodium, are sometimes helpful. If allergy symptoms are chronic (long- term), allergy testing and allergy shots (immunotherapy) may be helpful. How can I tell if I have a sinus infection, cold, or nasal allergy? Although the symptoms of sinusitis and nasal allergy may occur with a common cold, in general, cold-related symptoms disappear within 1 week. The point at which a normal cold ends and a sinus condition begins is not always easy to know. If you are fighting off a cold and develop symptoms of a sinus infection or nasal allergy, see your health care provider. You will be asked to describe your symptoms and medical history. ? How do I know if my sinus condition requires the care of an ear, nose, and throat specialist? Most routine sinus conditions are easily cared for by primary care physicians. If, however, you are bothered by ongoing abnormal symptoms, recurring infections, or have abnormal X-ray findings or complications, a referral to a specialist is appropriate. References ? Lynne Schuster. et al., IDSA Clinical Practice Guideline for Acute Bacterial Rhinosinusitis in Children and Adults. Clinical Infectious Diseases; 2012;54(8):6152-6635. ? Manuel Zheng, Sinusitis: Allergies, antibiotics, aspirin, asthma. [facility] Journal of Medicine 2006; 73(7): 671-678 ? National [place] [employer]ious [employer]. Sinusitis (Sinus Infection) Accessed 02/24/2015. ? [place] [employer], [employer]. Sinusitis Accessed 02/24/2015. ? [place] [employer]. Sinus Information Accessed 02/24/2015. ? Todd Fields, Prevalence of migraine in patients with a history of self-reported or physician-diagnosed sinus headache. [employer] Med, 2004. 164(16):1769-72. ? Copyright 0474-3412 [facility]. All rights reserved. Prescriptions ordered this encounter Disp Refills Start End FLUTICASONE 50 MCG/ACTUATION NASAL S* 1 [place]* 0 03/10/2018 Route: EACH NOSTRIL Sig: Use 2 Sprays in each nostril once daily. Rinse mouth after use. AMOXICILLIN 875 MG-POTASSIUM CLAVULA* 20 t* 0 03/10/2018 03/20/2018 Route: ORAL Sig: Take 1 tablet by mouth twice daily for 10 days. Medications Discontinued During This Encounter famotidine (PEPCID) 20 mg tablet 30 t* 0 12/27/2016 03/10/2018 Route: ORAL Sig: Take 1 tablet by mouth at bedtime as needed. Disc: Reason for discontinue is not on file. Encounter Status:Closed by LEBRON WORTHY on 03/10/18 INTERNAL MEDICINE Observed: 03/05/2018 Status: F Source: [facility] OFFICE VISIT 2:46 PM [facility] [place] [address] [place] [address] OFFICE VISIT Date of Service: 03/02/18 MR#: [id number] Acct: [id number] Name: FERMIN JACQUES Rep #: [id number] : 1960 Provider: Juan Alberto Harvey NP Age/Sex: 57/M Location: [facility] Status: Signed Intake Intake Visit Reasons: 1 W FU wound 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: Surgical wound Allergies No Known Allergies Allergy (Verified 02/23/18 13:36) Medications albuterol sulfate HFA 90 mcg/actuation aerosol inhaler 2 puff INHALATION Q6H PRN 11/22/17 [History Confirmed 02/23/18] diclofenac 1 % topical gel 2 g TOPICAL ONCE 11/29/17 [History Confirmed 02/23/18] cyclobenzaprine 10 mg tablet 5 - 10 mg PO TID PRN #30 tab 01/30/18 [Rx Confirmed 02/23/18] ibuprofen 800 mg tablet 800 mg PO BID-TID PRN #30 tab 01/30/18 [Rx Confirmed 02/23/18] lisinopril 10 mg tablet 10 mg PO DAILY #90 tab 01/30/18 [Rx Confirmed 02/23/18] PFSH Medical History Hypertension (Chronic) Neuroma (Chronic) LEYDI (obstructive sleep apnea) (Acute) Surgical History History of anal fissures (Acute) History of colonoscopy (Acute) History of orthopedic surgery (Acute) History of umbilical hernia repair (Acute) Family History Grandfather Cancer Father Prostate cancer Grandfather CVA (cerebral vascular accident) Social History Smoking Status: Former smoker how long ago did patient quit smokin alcohol intake: never substance use type: does not use HPI HPI 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: Surgical wound Details: See scanned in documentation ROS Musc Musculoskeletal: No muscle weakness Exam Const General: cooperative, comfortable, no acute distress Nutritional Appearance: average body habitus, well nourished Orientation: alert, oriented x3 Limitations: mental status not altered [facility] Head: normal to inspection Ears: hearing grossly normal bilaterally Nose: external nose normal Eyes General: appearance normal, both eyes and all related structures Resp Effort AND Inspection: normal respiratory effort, able to speak in complete sentences, normal respiratory pattern, symmetric chest movement, no audible wheezes, no cough Auscultation: Bilateral: Clear to Auscultation Cardio Palpation: normal PMI Rate: regular rate Heart Sounds: S1 normal, S2 normal, normal S1 and S2, no click, no gallops, no murmurs, no rubs GI Inspection: normal to inspection Auscultation: normal bowel sounds, no hyperactive bowel sounds, no hypoactive bowel sounds Palpation: soft, no hepatosplenomegaly Musc Musculoskeletal: No joint tenderness, decreased ROM or muscle weakness Skin General: no rashes or lesions noted Lesions: no lesions Rashes: no rashes Wounds: wounds noted (Left side mid back) Hair: normal Nails: normal Other: Incisional wound approximately 0.4 cm with minor tunneling from 11 to 2:00. Neuro General: alert, awake, oriented x3, CN's II-XI intact bilaterally Speech: speech normal Gait: normal gait Motor: muscle tone normal throughout Extrem General: normal to inspection, normal gait, no edema, no pedal edema Psych Appearance: grossly normal Mental Status: mental status grossly normal Affect: normal affect Attitude: cooperative Thought Process: normal Assessment AND Plan Problems 1. Sebaceous cyst L72.3 Plan Coding Level of Care Code No Charge Diagnoses Sebaceous cyst L72.3 03/05/18 1446 <Electronically signed by Juan Alberto DOMINGUEZ> Date Juan Alberto DOMINGUEZ Cosigner Signature: Date (if applicable) CC: INTERNAL MEDICINE Observed: 02/27/2018 Status: F Source: [facility] OFFICE VISIT 2:15 PM [facility] [address] [place] [address] [place] [address] OFFICE VISIT Date of Service: 02/23/18 MR#: [id number] Acct: [id number] Name: FERMIN JACQUES Justina Rep #: [id number] : 1960 Provider: Juan Alberto Harvey NP Age/Sex: 57/M Location: [facility] Status: Signed Intake Vital Signs02/23/18 Height 6 ft 1 in 02/23/18 Weight: 250 lb 02/23/18 Body Mass Index (BMI) 33.0 02/23/18 Blood Pressure 111/76 Intake Visit Reasons: INCISION ON BACK DRAINING 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: Incision on back draining Is patient in pain?: No Allergies No Known Allergies Allergy (Verified 02/23/18 13:36) Medications albuterol sulfate HFA 90 mcg/actuation aerosol inhaler 2 puff INHALATION Q6H PRN 11/22/17 [History Confirmed 02/23/18] diclofenac 1 % topical gel 2 g TOPICAL ONCE 11/29/17 [History Confirmed 02/23/18] cyclobenzaprine 10 mg tablet 5 - 10 mg PO TID PRN #30 tab 01/30/18 [Rx Confirmed 02/23/18] ibuprofen 800 mg tablet 800 mg PO BID-TID PRN #30 tab 01/30/18 [Rx Confirmed 02/23/18] lisinopril 10 mg tablet 10 mg PO DAILY #90 tab 01/30/18 [Rx Confirmed 02/23/18] PFSH Medical History Hypertension (Chronic) Neuroma (Chronic) LEYDI (obstructive sleep apnea) (Acute) Surgical History History of anal fissures (Acute) History of colonoscopy (Acute) History of orthopedic surgery (Acute) History of umbilical hernia repair (Acute) Family History Grandfather Cancer Father Prostate cancer Grandfather CVA (cerebral vascular accident) Social History Smoking Status: Former smoker how long ago did patient quit smokin alcohol intake: never substance use type: does not use HPI HPI 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: Incision on back draining Details: FERMIN JACQUES, is a 57 M who presents to the office today for follow-up after sebaceous gland surgical removal. Patient was seen a week ago here in the office for sebaceous gland surgical removal incision has been draining clear bloody discharge. Discharge has been daily moderate amounts. He denies any fever, chills or rashes. The patient otherwise denies any fever, chills, nausea, vomiting, shortness of breath, chest pain or pressure, palpitations, orthopnea, lower extremity edema, syncope or presyncopal episodes. ROS Const Constitutional: No chills, fatigue, fever(s), frequent falls, malaise, weakness, sleep problems or change in appetite Eyes Eyes: No blurry vision, change in vision, double vision, discharge or visual disturbances ENT ENT: No abnormal hearing, ear pain, ear pressure, tinnitus or dizziness/vertigo Resp Respiratory: No cough, shortness of breath or wheezing Cardio Cardiology: No chest pain at rest, chest pain with exertion, shortness of breath, dyspnea on exertion, generalized swelling, irregular heart rhythm, lightheadedness, orthopnea, fast heart rate or palpitations Gastro GI: No abdominal pain, change in bowel habits, constipation, diarrhea, nausea/dyspepsia or vomiting Genitourinary Male: No difficulty urinating, burning urination, painful urination, urinary incontinence, urinary frequency, urinary urgency, urinary hesitancy, urinary retention, blood in urine, Frequent nighttime urination/ nocturia, sexual problems, testicle lump or testicle pain Musc Musculoskeletal: No joint pain, back pain, joint swelling, limited range of motion, muscle weakness, numbness or tingling Skin Skin: Positive for wounds (Incision draining - red) and sores (Incision site); no change in skin color, itching or rash Breast Breast: No breast lump or breast pain Neuro Neurology: No frequent falls, weakness, abnormal hearing, numbness, tingling, unsteady gait/balance, dizziness, loss of vision, memory loss or visual disturbances Psych Psychiatric: No memory loss, No anxiety, No change in appetite, No depression, No Thoughts of harming yourself/Others Endo Endocrine: No fatigue, heat intolerance, increased thirst/drinking, increased hunger or increased urination Aller/Imm Allergy/Immunologic: No wheezing, itchy eyes or seasonal allergy symptoms Leland/Lymp Hematologic/Lymphatic: No easy bleeding, easy bruising or enlarged lymph nodes Exam Const General: cooperative, comfortable, no acute distress Nutritional Appearance: average body habitus, well nourished Orientation: alert, oriented x3 Limitations: mental status not altered Resp Effort AND Inspection: normal respiratory effort, able to speak in complete sentences, normal respiratory pattern, symmetric chest movement, no audible wheezes, no cough Auscultation: Bilateral: Clear to Auscultation Cardio Palpation: normal PMI Rate: regular rate Heart Sounds: S1 normal, S2 normal, normal S1 and S2, no click, no gallops, no murmurs, no rubs Musc Musculoskeletal: No muscle weakness Skin General: elasticity normal, turgor normal Other: incision site on back drainaing serousanguinous drainage, depth of .5 cm and circular undermining, no signs of infection at this time. No tenderness or fluctuance noted. Neuro General: alert, awake, oriented x3, CN's II-XI intact bilaterally Speech: speech normal Gait: normal gait Motor: muscle tone normal throughout Assessment AND Plan Problems 1. Nonhealing surgical wound T81.89XA 2. Sebaceous cyst L72.3 Plan Evaluation of surgical site is non-reddened not erythematous or raised there is no purulent drainage only clear and bloody drainage. No signs of obvious infection around surgical incision. Dressed and bandaged wound, daily christie dressing changes ordered, supplies given, advised patient to return in 1 week if no change. Plan Detail Follow Up 1 Week 1 week or sooner if needed Coding Level of Care Code No Charge Diagnoses Nonhealing surgical wound T81.89XA Sebaceous cyst L72.3 02/27/18 1415 <Electronically signed by Juan Alberto DOMINGUEZ> Date Juan Alberto DOMINGUEZ Cosigner Signature: Date (if applicable) CC: INTERNAL MEDICINE Observed: 02/15/2018 Status: F Source: [facility] OFFICE VISIT 5:07 PM [facility] [place] [address] OFFICE VISIT Date of Service: 02/15/18 MR#: [id number] Acct: [id number] Name: FERMIN JACQUES Rep #: [id number] : 1960 Provider: Gabino Gandhi DO Age/Sex: 57/M Location: [facility] Status: Signed Intake Vital Signs02/15/18 Height 6 ft 1 in 02/15/18 Weight: 249 lb 02/15/18 Body Mass Index (BMI) 32.8 02/15/18 Blood Pressure 126/78 H 02/15/18 Blood Pressure Location Lt brachial Intake Visit Reasons: change packing 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: Remove packing Is patient in pain?: No Allergies No Known Allergies Allergy (Verified 02/15/18 16:20) Medications albuterol sulfate HFA 90 mcg/actuation aerosol inhaler 2 puff INHALATION Q6H PRN 11/22/17 [History Confirmed 02/15/18] diclofenac 1 % topical gel 2 g TOPICAL ONCE 11/29/17 [History Confirmed 02/15/18] cyclobenzaprine 10 mg tablet 5 - 10 mg PO TID PRN #30 tab 01/30/18 [Rx Confirmed 02/15/18] ibuprofen 800 mg tablet 800 mg PO BID-TID PRN #30 tab 01/30/18 [Rx Confirmed 02/15/18] lisinopril 10 mg tablet 10 mg PO DAILY #90 tab 01/30/18 [Rx Confirmed 02/15/18] PFSH Medical History Hypertension (Chronic) Neuroma (Chronic) LEYDI (obstructive sleep apnea) (Acute) Surgical History History of anal fissures (Acute) History of colonoscopy (Acute) History of orthopedic surgery (Acute) History of umbilical hernia repair (Acute) Family History Grandfather Cancer Father Prostate cancer Grandfather CVA (cerebral vascular accident) Social History Smoking Status: Former smoker how long ago did patient quit smokin alcohol intake: never substance use type: does not use HPI HPI 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: Remove packing Details: FERMIN JACQUES, is a 57 M who presents to the office today for ROS Const Constitutional: No chills, fatigue, fever(s), frequent falls, malaise, weakness, sleep problems or change in appetite Eyes Eyes: No blurry vision, change in vision, double vision, discharge or visual disturbances ENT ENT: No abnormal hearing, ear pain, ear pressure, tinnitus or dizziness/vertigo Resp Respiratory: No cough, shortness of breath or wheezing Cardio Cardiology: No chest pain at rest, chest pain with exertion, shortness of breath, dyspnea on exertion, generalized swelling, irregular heart rhythm, lightheadedness, orthopnea, fast heart rate or palpitations Gastro GI: No abdominal pain, change in bowel habits, constipation, diarrhea, nausea/dyspepsia or vomiting Genitourinary Male: No difficulty urinating, burning urination, painful urination, urinary incontinence, urinary frequency, urinary urgency, urinary hesitancy, urinary retention, blood in urine, Frequent nighttime urination/ nocturia, sexual problems, testicle lump or testicle pain Musc Musculoskeletal: No joint pain, back pain, joint swelling, limited range of motion, muscle weakness, numbness or tingling Skin Skin: No change in skin color, itching, rash or wounds Breast Breast: No breast lump or breast pain Neuro Neurology: No frequent falls, weakness, abnormal hearing, numbness, tingling, unsteady gait/balance, dizziness, loss of vision, memory loss or visual disturbances Psych Psychiatric: No memory loss, No anxiety, No change in appetite, No depression, No Thoughts of harming yourself/Others Endo Endocrine: No fatigue, heat intolerance, increased thirst/drinking, increased hunger or increased urination Aller/Imm Allergy/Immunologic: No wheezing, itchy eyes or seasonal allergy symptoms Leland/Lymp Hematologic/Lymphatic: No easy bleeding, easy bruising or enlarged lymph nodes Exam Musc Musculoskeletal: No muscle weakness Assessment AND Plan Problems 1. Sebaceous cyst L72.3 Plan Packing was removed from the cyst and there was absolutely no drainage was irrigated with peroxide I told him of my expectation that this is going to heal by secondary retention simply needs to be kept clean with a little black Band-Aid over it. I requested that his looks at it daily and if there is any sign of infection redness drainage or pain he is to let me know immediately otherwise if it has completely healed over as I expect in 10-14 days there is no reason to recheck, but if it has not healed over that I do want to recheck it in the office. Coding Level of Care Code No Charge Diagnoses Sebaceous cyst L72.3 02/15/18 4607 <Electronically signed by Gabino Gandhi DO> Date Gabino Gandhi DO Cosigner Signature: Date (if applicable) CC: INTERNAL MEDICINE Observed: 02/14/2018 Status: F Source: [facility] OFFICE VISIT 2:46 PM [facility] [address] [place] [address] [place] [address] OFFICE VISIT Date of Service: 02/14/18 MR#: [id number] Acct: [id number] Name: FERMIN JACQUES Rep #: [id number] : 1960 Provider: Gabino Gandhi DO Age/Sex: 57/M Location: [facility] Status: Signed Intake Vital Signs02/14/18 Height 6 ft 1 in Intake Visit Reasons: REMOVE CYST 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: 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 Is patient in pain?: No Allergies No Known Allergies Allergy (Verified 11/22/17 10:55) Medications albuterol sulfate HFA 90 mcg/actuation aerosol inhaler 2 puff INHALATION Q6H PRN 11/22/17 [History Confirmed 11/29/17] diclofenac 1 % topical gel 2 g TOPICAL ONCE 11/29/17 [History Confirmed 11/29/17] cyclobenzaprine 10 mg tablet 5 - 10 mg PO TID PRN #30 tab 01/30/18 [Rx Confirmed 01/30/18] ibuprofen 800 mg tablet 800 mg PO BID-TID PRN #30 tab 01/30/18 [Rx Confirmed 01/30/18] lisinopril 10 mg tablet 10 mg PO DAILY #90 tab 01/30/18 [Rx Confirmed 01/30/18] PFSH Medical History Hypertension (Chronic) Neuroma (Chronic) LEYDI (obstructive sleep apnea) (Acute) Surgical History History of anal fissures (Acute) History of colonoscopy (Acute) History of orthopedic surgery (Acute) History of umbilical hernia repair (Acute) Family History Grandfather Cancer Father Prostate cancer Grandfather CVA (cerebral vascular accident) Social History Smoking Status: Former smoker how long ago did patient quit smokin alcohol intake: never substance use type: does not use HPI HPI 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: cyst removal Details: FERMIN JACQUES, is a 57 M who presents to the office today for excision of a small lipoma or sebaceous cyst on the back. Since I last saw this patient he must of had some type of trauma to the area and the cyst is now hemorrhagic and appears filled with blood he says it is not painful although it had drained very foul-smelling material in the past. ROS Const Constitutional: No weight change, body ache, chills, fatigue, sleep problems, fever(s), change in appetite, snoring, weakness, frequent falls, headache(s) or excessive sweating Eyes Eyes: No change in vision, eye pain, light sensitivity or blurry vision ENT ENT: No headache(s), abnormal hearing, ear pain, tinnitus, nasal congestion, sore throat or neck pain Resp Respiratory: No snoring, cough, shortness of breath or wheezing Cardio Cardiology: No excessive sweating, chest pain at rest, chest pain with exertion, shortness of breath, dyspnea on exertion, palpitations, orthopnea or lightheadedness Gastro GI: No abdominal pain, change in bowel habits, constipation, diarrhea, vomiting, nausea/dyspepsia or cramping Genitourinary Male: No painful urination, urinary incontinence, urinary frequency, urinary urgency, blood in urine, testicle pain or other Musc Musculoskeletal: Positive for other (right sided pain along the rib line.); no neck pain, abnormal walking, joint pain, back pain, limited range of motion, numbness or tingling Skin Skin: No redness, dry skin, itching, lesions, wounds or rash Neuro Neurology: No weakness, frequent falls, headache(s), abnormal hearing, abnormal walking, numbness, tingling, abnormal speech, dizziness or memory loss Psych Psychiatric: No change in appetite, No memory loss, No anxiety, No depression, No Thoughts of harming yourself/Others Endo Endocrine: No fatigue, excessive sweating, cold intolerance, increased thirst/drinking, heat intolerance, flushing or increased hunger Aller/Imm Allergy/Immunologic: No wheezing, itchy eyes, hives or seasonal allergy symptoms Leland/Lymp Hematologic/Lymphatic: No easy bleeding, easy bruising or enlarged lymph nodes Office Procedures I AND D Alert Charlie Alert Billing: Yes Incision and Drainage 13004 Abscess Simp/Single Subungual Hematoma Details:: This patient had what appeared to be a simple sebaceous cyst on his back when I last saw him it was relatively small about 1 cm. On this visit however it is 2-1/2 cm and it is very dark in color after anesthetizing the area an incision was made and a fairly large amount of dark blood was evacuated along with mild to moderate amount of purulent drainage. Because of the bleeding and the infection I did not think complete excision was a good idea. So I packed the cyst with quarter inch iodoform gauze hemostasis was good it was bandaged will pull the gauze out tomorrow and hopefully get this lesion to heal by secondary intention. Assessment AND Plan Problems 1. Infected sebaceous cyst L72.3; L08.9 Coding Level of Care Code Off vis,est,level 3 Diagnoses Infected sebaceous cyst L72.3; L08.9 Additional Codes Incision and Drainage - I AND D: 09720 Abscess Simp/Single (15786) 02/14/18 1446 <Electronically signed by Gabino Gandhi DO> Date Gabino Gandhi DO Cosignmirtha Signature: Date (if applicable) CC: INTERNAL MEDICINE Observed: 01/30/2018 Status: F Source: [place] OFFICE VISIT 2:19 PM [facility] [address] [place], [place] [address] OFFICE VISIT Date of Service: 01/30/18 MR#: [id number] Acct: [id number] Name: FERMIN JACQUES Rep #: [id number] : 1960 Provider: Juan Alberto Harvey NP Age/Sex: 57/M Location: [facility] Status: Signed Intake Vital Signs01/30/18 Height 6 ft 1 in 01/30/18 Weight: 243 lb 01/30/18 Body Mass Index (BMI) 32.0 01/30/18 Blood Pressure 105/69 01/30/18 Blood Pressure Location Lt brachial 01/30/18 Blood Pressure Position Sitting Intake Visit Reasons: left arm pain for 2 weeks 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: pain in left arm Is patient in pain?: Yes (pain in left arm) Pain scale (1- 10): 5 Allergies No Known Allergies Allergy (Verified 11/22/17 10:55) Medications albuterol sulfate HFA 90 mcg/actuation aerosol inhaler 2 puff INHALATION Q6H PRN 11/22/17 [History Confirmed 11/29/17] diclofenac 1 % topical gel 2 g TOPICAL ONCE 11/29/17 [History Confirmed 11/29/17] cyclobenzaprine 10 mg tablet 5 - 10 mg PO TID PRN #30 tab 01/30/18 [Rx Confirmed 01/30/18] ibuprofen 800 mg tablet 800 mg PO BID-TID PRN #30 tab 01/30/18 [Rx Confirmed 01/30/18] lisinopril 10 mg tablet 10 mg PO DAILY #90 tab 01/30/18 [Rx Confirmed 01/30/18] PFSH Medical History Hypertension (Chronic) Neuroma (Chronic) LEYDI (obstructive sleep apnea) (Acute) Surgical History History of anal fissures (Acute) History of colonoscopy (Acute) History of orthopedic surgery (Acute) History of umbilical hernia repair (Acute) Family History Grandfather Cancer Father Prostate cancer Grandfather CVA (cerebral vascular accident) Social History Smoking Status: Former smoker how long ago did patient quit smokin alcohol intake: never substance use type: does not use HPI HPI 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: pain in left arm Details: FERMIN JACQUES, is a 57 M who presents to the office today for an acute visit for left shoulder pain x 2 weeks. Patient has a past medical history of hypertension. Patient states yesterday he had significant pain in his left shoulder area. The pain radiated down his left arm, down his left side of his chest and his left shoulder blade area. He denied chest pain, palpitations, shortness of breath or diaphoresis. He denied weakness to his left side, trouble with speech or facial droop. He described the pain as aching with muscle spasm and states that the pain was so bad he needed help with dressing. He denies any trauma or injury but he states he does left his 2 children frequently, who weigh about 50 pounds each. He attempted to use Tylenol for pain relief but had no effectiveness. Today he states the pain is significantly better but still bothersome (4/10 dull intermittent pain, worse with different position changes such as internal rotation). He denies any other aggravating or alleviating factors. The patient otherwise denies any fever, chills, nausea, vomiting, shortness of breath, chest pain or pressure, palpitations, orthopnea, lower extremity edema, syncope or presyncopal episodes. ROS Const Constitutional: No weight change, body ache, chills, fatigue, sleep problems, fever(s), change in appetite, snoring, weakness, frequent falls, headache(s) or excessive sweating Eyes Eyes: No change in vision, eye pain, light sensitivity or blurry vision ENT ENT: No headache(s), abnormal hearing, ear pain, tinnitus, nasal congestion, sore throat or neck pain Resp Respiratory: No snoring, cough, shortness of breath or wheezing Cardio Cardiology: No excessive sweating, chest pain at rest, chest pain with exertion, shortness of breath, dyspnea on exertion, palpitations, orthopnea or lightheadedness Gastro GI: No abdominal pain, change in bowel habits, constipation, diarrhea, vomiting, nausea/dyspepsia or cramping Genitourinary Male: No painful urination, urinary incontinence, urinary frequency, urinary urgency, blood in urine, testicle pain or other Musc Musculoskeletal: Positive for numbness, tingling (left arm) and other (left arm pain, especially in the elbow); no neck pain, abnormal walking, joint pain, back pain, limited range of motion or muscle weakness Skin Skin: No redness, dry skin, itching, lesions, wounds or rash Neuro Neurology: Positive for numbness and tingling (left arm); no weakness, frequent falls, headache(s), abnormal hearing, abnormal walking, abnormal speech, dizziness or memory loss Psych Psychiatric: No change in appetite, No memory loss, No anxiety, No depression, No Thoughts of harming yourself/Others Endo Endocrine: No fatigue, excessive sweating, cold intolerance, increased thirst/drinking, heat intolerance, flushing or increased hunger Aller/Imm Allergy/Immunologic: No wheezing, itchy eyes, hives or seasonal allergy symptoms Leland/Lymp Hematologic/Lymphatic: No easy bleeding, easy bruising or enlarged lymph nodes Exam Const General: cooperative, comfortable, no acute distress Nutritional Appearance: average body habitus, well nourished Orientation: alert, oriented x3 Limitations: mental status not altered Eyes General: appearance normal, both eyes and all related structures Resp Effort AND Inspection: normal respiratory effort, able to speak in complete sentences, normal respiratory pattern, symmetric chest movement, no audible wheezes, no cough Auscultation: Bilateral: Clear to Auscultation Cardio Palpation: normal PMI Rate: regular rate Heart Sounds: S1 normal, S2 normal, normal S1 and S2, no click, no gallops, no murmurs, no rubs Musc Musculoskeletal: No joint tenderness, decreased ROM or muscle weakness Cervical Spine: cervical ROM normal and cervical muscular tenderness Other: Palpable muscle tension noted left posterior shoulder, palpable tenderness on exam to left tricep area, full ROM Skin General: no rashes or lesions noted, elasticity normal, turgor normal Lesions: no lesions Rashes: no rashes Neuro General: alert, awake, oriented x3, CN's II-XI intact bilaterally Speech: speech normal Gait: normal gait Motor: muscle tone normal throughout, strength 5/5 throughout Sensory Exam: no sensory deficits noted Extrem General: normal to inspection, normal gait, no edema, no pedal edema, full ROM (To left arm and shoulder, active and passive) Psych Appearance: grossly normal Mental Status: mental status grossly normal Affect: normal affect Attitude: cooperative Thought Process: normal Assessment AND Plan Problems 1. Acute pain of left shoulder M25.512 2. Strain of left triceps muscle S46.312A Plan The patient's symptoms are consistent with that of an acute muscular strain. Given patient prescription for ibuprofen and Flexeril as needed. Patient educated on medication side effects. Encouraged not to drive while taking Flexeril. Encouraged to take ibuprofen with food. Patient educated on signs and symptoms that would warrant emergency medical care. Advised on ice therapy as well. If problem persists may need referral to PT and/or imaging. Patient follow-up as previously scheduled or sooner if needed. This note was generated with Isoflux dictation software. It may contain incorrect words, spelling, and punctuation that were not noted in checking the note before signing. Medications New: Plan Detail Follow Up As previously scheduled Coding Level of Care Code Off vis,est,level 3 Diagnoses Acute pain of left shoulder M25.512 Strain of left triceps muscle S46.312A 01/30/18 1419 <Electronically signed by Juan Alberto DOMINGUEZ> Date Juan Alberto DOMINGUEZ Cosigner Signature: Date (if applicable) CC: COMPREHENSIVE METABOLIC Collected: 11/30/2017 Status: F Source: [place] 9:[place] [facility] [place] CODE TESTS RESULT OUT OF RANGE REFERENCE UNITS LAB L501.0100 74-106 mg/dL Normal GLU 101 Result Comment: Fasting Glucose result from 100 to 125 mg/dL suggests IMPAIRED HOMEOSTASIS per A.D.A. criteria. Please note revised GLUCOSE reference range effective 2017. LAB L501.1000 7-18 mg/dL High BUN 20 LAB L501.1100 0.70-1.30 mg/dL Normal CREAT,SERUM 1.20 Result Comment: The validity of the calculated GFR AND GFRAA in patients over 70 years has not been determined. Clinical correlation is essential. LAB L501.1110 >60 mL/min Normal EST GFR 66 Result Comment: Non- GFR Calc LAB L501.1115 >60 mL/min Normal EST GFR - AA 80 Result Comment: GFR Calc LAB L501.1300 10-20 RATIO Normal BUN/CRE 16.7 LAB L501.1500 6.4-8.2 g/dL T Normal PROT 7.3 LAB L501.1800 3.2-5.0 g/dL Normal ALB 3.5 LAB L501.1950 2.2-4.2 g/dL Normal GLOB 3.8 LAB L501.2000 0.9-2.4 RATIO Normal A/G 0.9 LAB L501.2200 8.5-10.1 mg/dL CA Normal 8.7 LAB L501.4100 15-37 U/L Normal AST 29 LAB L501.4305 45-117 U/L Low ALK P 19 LAB L501.4405 16-61 U/L Normal ALT 60 LAB L501.4600 0.20-1.00 mg/dL T Normal BILI 0.60 LAB L501.5300 136-145 mmol/L NA Normal 138 LAB L501.5600 3.5-5.1 mmol/L K Normal 3.9 LAB L501.5900 98-107 mmol/L CL Normal 103 LAB L501.6100 21.0-32.0 mmol/L Normal CO2 29.0 LAB L501.6200 5-15 Normal GAP 6 Performed By: #### L500.4050, L500.4100, L501.9910 #### [facility] [address] [place], [address] LIPID PROFILE Collected: 11/30/2017 Status: F Source: [place] 9:40 AM [facility] [place] TYPE CODE TESTS RESULT OUT OF RANGE REFERENCE UNITS LAB L501.4900 200 mg/dL Normal CHOL 179 Result Comment: <200 mg/dL Desirable 200-240 mg/dL Borderline >240 mg/dL High Risk LAB L501.5000 mg/dL Normal TRIG 98 Result Comment: The drugs N-Acetylcysteine and Metamizole may falsely depress this assay. Serum Triglycerides Reference Interval Normal <150 mg/dL Borderline high 150 - 199 mg/dL High 200 - 499 mg/dL Very High > or = 500 mg/dL LAB L501.6400 mg/dL Normal HDL 44 Result Comment: The drugs N-Acetylcysteine and Metamizole may falsely depress this assay. Reference Range HDL <40 mg/dL Low HDL Cholesterol HDL >or= 60 mg/dL High HDL Cholesterol LAB L501.6500 0-130 mg/dL Normal LDL 115 LAB L501.6600 5-40 mg/dL Normal VLDL 20 Performed By: #### L500.4050, L500.4100, L501.9910 #### [facility] [address] [place], [address] PSA,TOTAL - ANNUAL Collected: 11/30/2017 Status: F Source: [place] 9:40 AM [facility] [place] CODE TESTS RESULT OUT OF RANGE REFERENCE UNITS LAB L501.9910 0.00-4.00 ng/mL Normal PSA,TOT 0.57 SCREEN Result Comment: This test was performed using the TPSA assay method for the [employer] chemistry system. Values obtained with different assay methods cannot be used interchangably. When changing PSA assays in the course of monitoring a patient, additional sequential testing should be carried out to confirm baseline values. Performed By: #### L500.4050, L500.4100, L501.9910 #### [facility] [address] [place], [address] INTERNAL MEDICINE Observed: 11/29/2017 Status: F Source: [place] OFFICE VISIT 12:57 PM [facility] [place] [facility] [address] [place] [address] OFFICE VISIT Date of Service: 11/29/17 MR#: [id number] Acct: [id number] Name: FERMIN JACQUES Rep #: [id number] : 1960 Provider: Gabino Gandhi DO Age/Sex: 57/M Location: [facility] Status: Signed Intake Vital Signs11/29/17 Height 6 ft 1 in 11/29/17 Weight: 240 lb 11/29/17 Body Mass Index (BMI) 31.6 11/29/17 Blood Pressure 112/70 Intake Visit Reasons: PHYSICAL 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: PHYSICAL Is patient in pain?: Yes (left foot) Pain scale (1-10): 3 Allergies No Known Allergies Allergy (Verified 11/22/17 10:55) Medications Lisinopril [Prinivil] 10 mg PO DAILY 03/23/17 [History Confirmed 11/29/17] albuterol sulfate HFA 90 mcg/actuation aerosol inhaler 2 puff INHALATION Q6H PRN 11/22/17 [History Confirmed 11/29/17] diclofenac 1 % topical gel 2 g TOPICAL ONCE 11/29/17 [History Confirmed 11/29/17] PFSH Medical History Hypertension (Chronic) Neuroma (Chronic) LEYDI (obstructive sleep apnea) (Acute) Surgical History History of anal fissures (Acute) History of colonoscopy (Acute) History of orthopedic surgery (Acute) History of umbilical hernia repair (Acute) Family History Grandfather Cancer Father Prostate cancer Grandfather CVA (cerebral vascular accident) Social History Smoking Status: Former smoker how long ago did patient quit smokin alcohol intake: never substance use type: does not use HPI HPI 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: PHYSICAL Details: FERMIN JACQUES, is a 57 M who presents to the office today for a routine check up ROS Const Constitutional: No weight change, body ache, chills, fatigue, sleep problems, fever(s), change in appetite, snoring, weakness, frequent falls, headache(s) or excessive sweating Eyes Eyes: No change in vision, eye pain, light sensitivity or blurry vision ENT ENT: No headache(s), abnormal hearing, ear pain, tinnitus, nasal congestion, sore throat or neck pain Resp Respiratory: No snoring, cough, shortness of breath or wheezing Cardio Cardiology: No excessive sweating, chest pain at rest, chest pain with exertion, shortness of breath, dyspnea on exertion, palpitations, orthopnea or lightheadedness Gastro GI: No abdominal pain, change in bowel habits, constipation, diarrhea, vomiting, nausea/dyspepsia or cramping Genitourinary Male: No painful urination, urinary incontinence, urinary frequency, urinary urgency, blood in urine, testicle pain or other Musc Musculoskeletal: Positive for numbness (left leg, upper thigh) and tingling; no neck pain, abnormal walking, joint pain, back pain, limited range of motion or muscle weakness Skin Skin: Positive for lesions (bump on back); no redness, dry skin, itching, wounds or rash Neuro Neurology: Positive for numbness (left leg, upper thigh) and tingling; no weakness, frequent falls, headache(s), abnormal hearing, abnormal walking, abnormal speech, dizziness or memory loss Psych Psychiatric: No change in appetite, No memory loss, No anxiety, No depression, No Thoughts of harming yourself/Others Endo Endocrine: No fatigue, excessive sweating, cold intolerance, increased thirst/drinking, heat intolerance, flushing or increased hunger Aller/Imm Allergy/Immunologic: No wheezing, itchy eyes, hives or seasonal allergy symptoms Leland/Lymp Hematologic/Lymphatic: No easy bleeding, easy bruising or enlarged lymph nodes Exam Const General: cooperative Nutritional Appearance: average body habitus Orientation: oriented x3 HENMT Head: normal to inspection Ears: hearing grossly normal bilaterally Nose: external nose normal Face and sinus: normal facial exam Mouth: oral mucosae normal Teeth and gingiva: dentition normal Throat: posterior oropharynx normal Eyes General: appearance normal, both eyes and all related structures Neck Neck: normal visual inspection Neck mass: No Thyroid: thyroid normal Resp Effort AND Inspection: normal respiratory effort Auscultation: Bilateral: Clear to Auscultation Cardio Palpation: normal PMI Rate: regular rate Rhythm: regular rhythm GI Inspection: normal to inspection Auscultation: normal bowel sounds Musc Musculoskeletal: No joint tenderness, joint redness, joint warmth, decreased ROM, spinal deformity, scoliosis to L, scoliosis to R, lordosis or muscle weakness Thoracic/Lumbar Spine: thoracic and lumbar spine normal to inspection Skin Lesions: lesion noted (lipoma on the back about 3 cm in size) Extrem General: normal to inspection, normal exam except as noted Other: 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 Assessment AND Plan Problems 1. Annual physical exam Z00.00 2. Hypertension I10 Plan This patient was seen today for a routine annual exam. He really voices only 2 significant complaints one is a small lipoma on his back and the other is that he has been treated for a neuroma of his left foot. Otherwise physical examination was completely normal labs were ordered he needs to be seen on a yearly basis. Orders Orders: Plan Detail Follow Up 1 Year Coding Level of Care Code Off vis,est,prev 40-64yrs Diagnoses Annual physical exam Z00.00 Hypertension I10 11/29/17 1257 <Electronically signed by Gabino Gandhi DO> Date Gabino Gandhi DO Cosigner Signature: Date (if applicable) CC: PROGRESS Observed: 08/06/2017 Status: COMPLETED Source: [place] 10:47 AM [facility] REPOSITORY HNO ID: [id number] Author: Jennifer (Frederic) Older Service: (none) Author Type: Nurse Practitioner Type: Progress Notes Filed: 08/06/2017 10:56 AM Note Text: CC: Patient presents with: Cough HPI: Fermin Jacques is a 57 year old male who presents to the office with complaint of respiratory symptoms for 3 days. Symptoms are worsening Associated symptoms includes sore throat, nasal congestion, body aches and cough. Denies fever, wheezing and dyspnea. Treatments tried include OTC cold medicine with minor relief of symptoms. Sick contacts: unknown. History of asthma, frequent episodes of bronchitis, chronic bronchitis, bronchiectasis or COPD: No Smoker: No Seasonal/environmental allergies: No The ROS is otherwise negative. The patient's pmh, medications, allergies, and past visits are reviewed. PHYSICAL EXAM: BP 100/70 Pulse 97 Temp 36 ?C (96.8 ?F) (Left Tympanic) Resp 18 Wt 108.4 kg (239 lb) SpO2 95% BMI 32.41 kg/m2 General appearance: tired/ill appearing, in no acute distress Head: Normocephalic Eyes: conjunctiva pink and moist, no icterus, sclera white, non-injected Ears: Right ear: External ear/canal- Normal, TM - dull. Left ear: External ear/canal- Normal, TM - dull Nose: mucosa erythematous and swollen, no sinus tenderness. Oropharynx:mild erythema Neck:supple and positive findings: few small anterior cervical nodes Heart: Negative. RRR without obvious murmur, gallop, or rubs. No ectopy. Lungs: clear to auscultation, without rales or wheeze, good air exchange ASSESSMENT/PLAN: 1. Viral URI with cough - ICD9: 465.9, ICD10: J06.9, B97.89 - Discussed viral etiology and rationale for treatment. - Symptomatic treatment with prn analgesia - Supportive care with fluids and rest - The patient may also use OTC cough and cold meds as needed. - Follow up in 5 to 7 days if symptoms persist or sooner if worsening of symptoms Prescription instructions reviewed with patient as applicable. Potential red flag symptoms discussed with the patient. Reviewed appropriate action plan to take if red flag symptoms occur. Patient agreeable to treatment plan. Jennifer Castellanos APRN.CNP CNOV Observed: 08/06/2017 Status: COMPLETED Source: [place] 10:45 AM [facility] REPOSITORY Office Visit ([facility]) SAWYERFERMIN Horn ([id number]) 1960 M Date Time Provider Department 08/06/17 10:45 AM JENNIFER CASTELLANOS (FREDERIC) [facility] During your visit today, we recorded the following information about you: Temperature Pulse Respiration Blood pressure 96.8 degrees 97/minute 18/minute 100/70 Weight 108.4 kg Jennifer Castellanos APRN.CNP 08/06/2017 10:56 AM Signed CC: Patient presents with: Cough HPI: Fermin Gonzalesntz is a 57 year old male who presents to the office with complaint of respiratory symptoms for 3 days. Symptoms are worsening Associated symptoms includes sore throat, nasal congestion, body aches and cough. Denies fever, wheezing and dyspnea. Treatments tried include OTC cold medicine with minor relief of symptoms. Sick contacts: unknown. History of asthma, frequent episodes of bronchitis, chronic bronchitis, bronchiectasis or COPD: No Smoker: No Seasonal/environmental allergies: No The ROS is otherwise negative. The patient's pmh, medications, allergies, and past visits are reviewed. PHYSICAL EXAM: BP 100/70 Pulse 97 Temp 36 ?C (96.8 ?F) (Left Tympanic) Resp 18 Wt 108.4 kg (239 lb) SpO2 95% BMI 32.41 kg/m2 General appearance: tired/ill appearing, in no acute distress Head: Normocephalic Eyes: conjunctiva pink and moist, no icterus, sclera white, non-injected Ears: Right ear: External ear/canal- Normal, TM - dull. Left ear: External ear/canal- Normal, TM - dull Nose: mucosa erythematous and swollen, no sinus tenderness. Oropharynx:mild erythema Neck:supple and positive findings: few small anterior cervical nodes Heart: Negative. RRR without obvious murmur, gallop, or rubs. No ectopy. Lungs: clear to auscultation, without rales or wheeze, good air exchange ASSESSMENT/PLAN: 1. Viral URI with cough - ICD9: 465.9, ICD10: J06.9, B97.89 - Discussed viral etiology and rationale for treatment. - Symptomatic treatment with prn analgesia - Supportive care with fluids and rest - The patient may also use OTC cough and cold meds as needed. - Follow up in 5 to 7 days if symptoms persist or sooner if worsening of symptoms Prescription instructions reviewed with patient as applicable. Potential red flag symptoms discussed with the patient. Reviewed appropriate action plan to take if red flag symptoms occur. Patient agreeable to treatment plan. AJ Black APRN.FREDERIC 08/06/2017 10:53 AM Signed Here is some cold and flu information to help ease your symptoms: 1.) Get more rest than you usually do - this will speed your recovery. If you push hard with your usual busy schedule, you will be sicker longer. 2.) Drink a lot of water - enough to make you urinate every 2-3 hours (your urine should be a light yellow color). This helps thin the phlegm and sooth the airways. Gatorade (G2) is less in sugar and replaces your electrolytes if not eating well. 3.) Run a cool mist humidifier in your bedroom on high with the door closed. This is a natural way to decongest, and it helps lessen scratchy throats, nasal stuffiness and coughs. 4.) For those without blood pressure concerns, take over the counter combination medication such as Tylenol cold and flu. Those with high blood pressure and not with prostate problems can try lcon-dic-kjxbyuh Coricidin HBP for congestion. 5) For nasal congestion, sinus pain/pressure: Nasal spray such as Flonase of Nasacort, available over the counter General information: * Green or yellow color does not mean you need an antibiotic; secretions can be green or yellow with viruses, such as the common cold * The average cold lasts 6-12 days. If you are not improving or are worsening by day 10 of symptoms follow up with the office Referring Provider: SELF [200] Allergies As of Date: 08/06/2017 Noted Allergy Reaction Nka [Other] 03/26/2003 Date Reviewed: 08/06/2017 Reviewed by: Page Gray Ma - Fully Assessed Reason for Visit: Cough [28] Primary Visit Diagnosis:Viral URI with cough [J06.9, B97.89] Prescriptions as of 08/06/2017 Sig: ALBUTEROL SULFATE HFA 90 MCG/* Inhale 2 Puffs as instructed * DICLOFENAC 1 % TOPICAL GEL Apply 1 g to affected area tw* * LISINOPRIL 10 MG TABLET Take 10 mg by mouth once laz* FAMOTIDINE 20 MG TABLET Take 1 tablet by mouth at bed* Problem List As Of Date 08/06/2017 Noted Resolved HERNIA UMBILICAL [K42.9] INVALID FOR* 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 If you push hard with your usual busy schedule, you will be sicker longer. 2.) Drink a lot of water - enough to make you urinate every 2-3 hours (your urine should be a light yellow color). This helps thin the phlegm and sooth the airways. Gatorade (G2) is less in sugar and replaces your electrolytes if not eating well. 3.) Run a cool mist humidifier in your bedroom on high with the door closed. This is a natural way to decongest, and it helps lessen scratchy throats, nasal stuffiness and coughs. 4.) For those without blood pressure concerns, take over the counter combination medication such as Tylenol cold and flu. Those with high blood pressure and not with prostate problems can try jspo-nin-nzyepdf Coricidin HBP for congestion. 5) For nasal congestion, sinus pain/pressure: Nasal spray such as Flonase of Nasacort, available over the counter General information: * Green or yellow color does not mean you need an antibiotic; secretions can be green or yellow with viruses, such as the common cold * The average cold lasts 6-12 days. If you are not improving or are worsening by day 10 of symptoms follow up with the office Encounter Status:Closed by JENNIFER CASTELLANOS CNP on 08/06/17 MRI LUMBAR SPINE WO Observed: 05/04/2017 Status: F Source: [place] IVCON 10:24 AM [facility] [place] REPOSITORY * * *Final Report* * * DATE OF EXAM: May 04 2017 10:24AM [facility] 0303 - MRI LUMBAR SPINE WO IVCON / PROCEDURE REASON: low back pain * * * * Physician Interpretation * * * * MRI LUMBAR SPINE WO IVCON HISTORY: Low back pain. COMPARISON: None. TECHNIQUE: Routine lumbosacral spine MR protocol without gadolinium. RESULT: MR LUMBAR: Counting reference: Lumbosacral junction. For the purposes of this report, L4-5 is considered the level of the iliac crest. Alignment: Alignment is anatomic. Bone marrow signal/fracture: No evidence of pathologic marrow infiltration. No evidence of prior fracture. Conus: The conus is within normal limits of signal intensity and morphology. Paraspinal soft tissues: Paraspinal soft tissues are within normal limits. Lower thoracic spine: Visualized lower thoracic canal and foramina are patent. T12-L1: Canal and foramina are patent. L1-L2: Canal and foramina are patent. L2-L3: Canal and foramina are patent L3-L4: Canal and foramina are patent L4-L5: Mild to moderate facet degenerative changes. Canal and foramina are patent. L5-S1: Moderate facet degenerative change. Canal and foramina are patent. Sacrum and iliac wings: The visualized sacrum and iliac wings are within normal limits. IMPRESSION: Facet degenerative changes in the lower lumbar spine. Canal and foramina remain patent Frame Stripper And Crusher: CURTIS Transcribe Date/Time: May 04 2017 10:22A Dictated by : ANKITA LIGHT MD This examination was interpreted and the report reviewed and electronically signed by: ANKITA LIGHT MD on May 04 2017 10:24AM EST [id number] Observed: 05/04/2017 Status: COMPLETED Source: [place] 9:44 AM [facility] REPOSITORY O ID: [id number] Author: Betzy Whitman Service: (none) Author Type: (none) Type: Progress Notes Filed: 05/04/2017 9:44 AM Note Text: Radiology Service Progress Note PATIENT NAME: Fermin Jacques DATE OF SERVICE: May 04, 2017 TIME: 9:44 AM PATIENT IDENTITY VERIFICATION COMPLETED USING TWO (2) METHODS: Patient confirmed name verbally and Date of . PATIENT GENDER DATA: Male PATIENT RELEVANT IMPLANT DATA REVIEWED: Yes RADIOLOGY DEPARTMENT: MR; Exam(s) Completed: Spine: Lumbar spine PERIPHERAL IV DATA: Not applicable SIGNED BY: Betzy Morley Rt May 04, 2017 9:44 AM PT D/C SUMMARY (1) Observed: 04/21/2017 Status: F Source: [place] 3:33 PM [facility] [address] [place] [address]. [address] [place], [place] [address] Fax REHABILITATION SERVICES DISCHARGE SUMMARY MR#: [id number] Acct: [id number] Name: FERMIN JACQUES Rep #: [id number] : 1960 56 From: David Zuniga PT, Cert. T, OCS Referring Dr.: Ede Agee Status: REG RCR Insurance: [facility] - PT D/C Summary It has been my pleasure to treat FERMIN JACQUES under orders from Ede Agee, for the diagnosis of LOW BACK PAIN for a total of 8 visit(s). Discharge Date: Please see the following information for a summary of their discharge status. - Subjective Subjective: Dont much better.But better from intial pain. Worse at night. Today some better. Ex's makes symtoms worse the next day - Pain Bilateral Back Pain Intensity (Out of 10): 2 - Overall Improvement % Improvement: 10 - Objective Objective/Function: POSTURE: mild foward posture. GAIT: normal liane. PALAPTION: tender thoracic lumbar paraspinals. LUMBAR THORACIC MOD LOSS ALL PLANES. FLEXABILITY: hams mod tightness ,piriformis tight - Goals Goal 1:: Independant with HEP Goal Progress: Goal Met Goal 2:: Independant with posture/body mechanics Goal Progress: Progressing Goal 3:: Decrease thoracic /lumbar pain by 75% or greater to improve function. Goal Progress: Progressing Goal 4:: Improve throcic ROM WFL for function of recovery Goal Progress: Progressing Goal 5:: Patient be able to perform ADL'S and job demands without limitations Goal Progress: Progressing Goal 6:: D/C to prophalaxis Goal Progress: Progressing - Plan Plan: D/C. RECOMMEND MRI - D/C Information If there are questions or concerns regarding this patient's physical therapy, please feel free to call me at [phone]. Thank you for the referral of this patient. Sincerely, David Zuniga PT, <Electronically signed by David Zuniga PT, Cert. T, OCS> 04/21/17 1533 CC: Ede Agee; Gabino Gandhi MD BENJAMIN Signed .GFR Collected: 04/04/2017 Status: F Source: [place] 5:00 PM [facility] REPOSITORY TYPE CODE TESTS RESULT OUT OF REFERENCE UNITS RANGE LAB GFRAA(LOINC ml/min/1.73 ) sqm GFR 80 [place] Result Comment: GFR Population mean for , Non- Americans Ages 20-29 = 116 mL/min/1.73 sq.m. Ages 30-39 = 107 mL/min/1.73 sq.m. Ages 40-49 = 99 mL/min/1.73 sq.m. Ages 50-59 = 93 mL/min/1.73 sq.m. Ages 60-69 = 85 mL/min/1.73 sq.m. Ages 70+ = 75 mL/min/1.73 sq.m. Chronic Kidney Disease: Less than 60 mL/min/1.73 square meters End Stage Renal Disease: Less than 15 mL/min/1.73 square meters LAB GFRNO(LOINC) ml/min/1.73sqm GFR Non- >60 Result Comment: GFR Population mean for , Non- Americans Ages 20-29 = 116 mL/min/1.73 sq.m. Ages 30-39 = 107 mL/min/1.73 sq.m. Ages 40-49 = 99 mL/min/1.73 sq.m. Ages 50-59 = 93 mL/min/1.73 sq.m. Ages 60-69 = 85 mL/min/1.73 sq.m. Ages 70+ = 75 mL/min/1.73 sq.m. Chronic Kidney Disease: Less than 60 mL/min/1.73 square meters End Stage Renal Disease: Less than 15 mL/min/1.73 square meters Performed By: #### CMP, GFR #### [address] [place], [place] [address] CMP Collected: 04/04/2017 Status: F Source: [place] 5:00 PM [facility] REPOSITORY TYPE CODE TESTS RESULT OUT OF REFERENCE UNITS RANGE LAB 1547-9 70-105 mg/dL GLUCOSE High 111 LAB NA(LOINC) 136-146 mEq/L Sodium Level 141 LAB K(LOINC) 3.5-5.1 mEq/L Potassium Level 4.2 LAB CL(LOINC) 98-107 mEq/L Chloride 107 LAB CO2(LOINC) 22-29 mEq/L CO2 28 LAB EBAL(LOINC mEq/L ) Electrolyte Balance 6.0 LAB BUN(LOINC) 7.0-18.0 mg/dL BUN High 23.4 LAB CRE(LOINC) 0.6-1.2 mg/dL Creatinine Lvl (s) 1.1 LAB BC(LOINC) 7-27 ratio BUN/Creatinine 21 Ratio LAB CA(LOINC) 8.4-10.2 mg/dL Calcium Lvl 8.8 LAB PROT(LOINC 6.0-8.3 G/dL ) Total Protein 6.3 LAB ALB(LOINC) 3.5-5.0 G/dL Albumin Level 4.0 LAB GLB(LOINC) G/dL Globulin 2.3 LAB AG(LOINC) 1.1-2.5 ratio A/G Ratio 1.7 LAB BILT(LOINC 0.2-1.0 mg/dL ) Bili Total 0.2 LAB AP(LOINC) 40-135 IU/L Low Alk Phos 30 LAB AST(LOINC) 10-40 IU/L AST/SGOT 21 LAB ALT(LOINC) 10-35 IU/L ALT/SGPT 32 Performed By: #### CMP, GFR #### [address] [place], [place] [address] INITAL EVALUATION (1) Observed: 02/16/2017 Status: F Source: [place] - [place] 3:58 PM [facility] [address] [place] [address] Fax REHABILITATION SERVICES INITIAL EVALUATION MR#: [id number] Acct: [id number] Name: FERMIN JACQUES Rep #: [id number] : 1960 56 From: David Zuniga PT, Cert. MDT, OCS Referring Dr.: Ede Agee Status: REG RCR Insurance: [facility] Patient's Visit Information FERMIN JACQUES is a 56 year old M referred to Physical Therapy by Ede Agee with a diagnosis of LOW BACK PAIN. Date of Evaluation: 02/13/17 Physical Therapist: David Zuniga PT, - Visit Plan Frequency: 2x /Week Duration: 4 Weeks Plan: thoracic posture /strengthening ex's ,posture,mobilization - Subjective Subjective: This 56 y/o male presents to physical therapy with low back pain . Although , mid thoracic spine about 6weeks. Syptome worse several weeks ago unable to get out of bed. Seen Dr Swenson recommended muscle relaxers,did x-rays.Seen DR Mcrae chiropractor tried manipulation. Symptosm worse at night ,morning. Symptoms better on the move. Denies parathesia/tingling. Coughing/sneezing (+). Bowel/bladder good. Symptoms better with MEDS. 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 SOCAIL: - Pain Bilateral Back Pain Intensity (Out of 10): 1 Pain Intensity Range: 10 - Objective POSTURE:rounded shoulders foward ,mild thoracic spine. NEURO: denies parathesia/tingling,reflexes L3-4,L4-5,L5-S1. MMT: UE 4/5,QUADS/HAMS/HIP ANKLE 4/5. LUMBAR ROM: flexion min loss,extension min ,side glides min loss. THORACIC ROM: flexion min loss,extension mod loss,rotation mod. --SLR. SYMMMTRIES : align - Special Tests Thoracic Sitting: Flexion - Mechanical Response: No effect Thoracic Sitting: Flexion - Symptoms During Testing: No effect Thoracic Sitting: Flexion - Symptoms After Testing: No effect Thoracic Sitting: Extension - Mechanical Response: No effect Thoracic Sitting: Extension - Symptoms During Testing: Increases Thoracic Sitting: Extension - Symptoms After Testing: No worse Thoracic Sitting: Right rotation - Mechanical Response: No effect Thoracic Sitting: Right Rotation - Symptoms During Testing: Increases Thoracic Sitting: Right Rotation - Symptoms After Testing: No worse Thoracic Sitting: Left rotation - Mechanical Response: No effect Thoracic Sitting: Left Rotation - Symptoms During Testing: Increases Thoracic Sitting: Left Rotation - Symptoms After Testing: No worse L/S Slump test left side: Negative L/S Slump test right side: Negative L/S Left Straight Leg Raise: Negative L/S Right Straight Leg Raise: Negative Lumbar Standing: Flexion - Mechanical Response: No effect Lumbar Standing: Flexion - Symptoms During Testing: No effect Lumbar Standing: Flexion - Symptoms After Testing: No effect Lumbar Standing: Extension - Mechanical Response: No effect Lumbar Standing: Extension - Symptoms During Testing: No effect Lumbar Standing: Extension - Symptoms After Testing: No effect - Goals Goal 1:: Independant with HEP Goal Time Frame: 2-4 Weeks Goal 2:: Independant with posture/body mechanics Goal Time Frame: 2-4 Weeks Goal 3:: Decrease thoracic /lumbar pain by 75% or greater to improve function. Goal Time Frame: 2-4 Weeks Goal 4:: Improve throcic ROM WFL for function of recovery Goal Time Frame: 2-4 Weeks Goal 5:: Patient be able to perform ADL'S and job demands without limitations Goal Time Frame: 2-4 Weeks Goal 6:: D/C to prophalaxis Goal Time Frame: 2-4 Weeks - Rehabilitation Potential Physical Therapy Diagnosis: This patient has low thoracic pain possible derrangemnt with decrease posture ,pain ,loss thoracic ROM thus benifit from skilled PT Rehabilitation Potential: Good - Anticipated Interventions Patient/Client Instruction: Educate patient on: Condition, Plan of Care For the Purpose of:: To decrease pain, To increase ROM, To improve muscle performance and motor function, To improve ability to perform ADL's, To increase tolerance to activity/condition/position, To improve ability of physical actions for home/community/work/leisure, To improve health of tissue, To decrease soft tissue restriction, To increase flexibility/ROM, To improve ability to perform tasks related to life management Therapeutic Exercise to Include: Strength training, Body mechanics, Postural training, Flexibilty training, Active ROM, Dean Exercises Comment: thoracic For the Purpose of:: To decrease pain, To increase ROM, To improve muscle performance and motor function, To improve ability to perform ADL's, To increase tolerance to activity/condition/position, To improve performance and independence with ADL's, To improve ability of physical actions for home/community/work/leisure, To improve health of tissue, To decrease soft tissue restriction, To increase flexibility/ROM, To improve ability to perform tasks related to life management Manual Therapy Techniques to Include: Mobilization Comment: thoracic For the Purpose of:: To decrease pain, To increase ROM, To improve muscle performance and motor function, To increase tolerance to activity/condition/position, To improve ability of physical actions for home/community/work/leisure, To improve health of tissue, To decrease soft tissue restriction, To increase flexibility/ROM, To improve ability to perform tasks related to life management IF ES: Yes Cryotherapy (ice pack, ice massage): Yes Thermo therapy (hot pack): Yes For the Purpose of:: To decrease pain, To increase ROM, To improve nutrient delivery to tissue, To increase oxygenation perfusion, To decrease soft tissue restriction, To increase flexibility/ROM Thank you for the opportunity to evaluate your patient. For Medicare and Medicare HMO plans, please review the plan of care and approve it. It will need to be FAXED BACK to us at [phone] for Medicare purposes. Please let me know if there are questions or concerns regarding this plan of care. Physician Signature: Date: <Electronically signed by David Zuniga PT, Cert. AMBROCIO, OCS> 02/16/17 1558 CC: Ede Agee; Gabino Gandhi MD BENJAMIN Signed For Medicare only, by signing this I certify the plan of care. Physicians Signature Date ALLERGIES ALLERGIES DATE TYPE / CODE NAME / CODE REACTION SEVERITY SOURCE 03/16/2018 Drug No Known Unknown [place] Allergy/[id number]( Allergies/[facility]) [id number]([facility] XNORM) Repository 03/26/2003 Miscellaneous OTHER [facility] Allergy/[id number]([facility] NOMED CT) Repository ENCOUNTERS ENCOUNTERS ADMIT/DISCHARGE ACCOUNT NUMBER ADMITTING ENCOUNTER LOCATION SOURCE CLASS 04/03/2018/04/03/20 [id number] Ambulatory BMSBuilding: [place] 18 BMS.[facility] Repository 04/02/2018 [id number] Ambulatory [facility] ding:WC Repository 03/26/2018 [id number] Ambulatory BMSBuilding: [place] BMS.CF.[facility] Repository 03/22/2018 [id number] Ambulatory BMSBuilding: [place] BMS.CF.[facility] Repository 03/16/2018 [id number] Ambulatory [facility] ding:LABSPEC Repository 03/16/2018/03/16/20 [id number] Ambulatory BMSBuilding: [place] 18 BMS.[facility] Repository 03/10/2018/03/12/20 [id number] Ambulatory [address] Repository 03/02/2018/03/02/20 [id number] Ambulatory BMSBuilding: [place] 18 BMS.[facility] Repository 02/23/2018/02/24/20 [id number] Ambulatory BMSBuilding: [place] 18 BMS.[facility] Repository 02/15/2018/02/16/20 [id number] Ambulatory BMSBuilding: [place] 18 BMS.[facility] Repository 02/14/2018/02/15/20 [id number] Ambulatory BMSBuilding: [place] 18 BMS.[facility] Repository 01/30/2018/01/31/20 [id number] Ambulatory BMSBuilding: [place] 18 BMS.[facility] Repository 11/30/2017 [id number] Ambulatory [facility] ding:MTLAB Repository 11/29/2017/11/30/19 [id number] Ambulatory BMSBuilding: [place] 18 BMS.[facility] Repository 11/22/2017 [id number] Ambulatory BMSBuilding: [place] BMS.[facility] Repository 08/06/2017/08/09/19 [id number] Ambulatory [address] Repository 05/04/2017/05/04/19 [id number] Ambulatory [address] Repository 04/04/2017/04/04/20 [id number] Ambulatory [address] ding:[facility] Repository 03/22/2017/03/22/20 [id number] Ambulatory [place] 17 [facility] ding:PT Repository PAYERS PAYERS ENCOUNTER GUARANTOR PAYER SUBSCRIBER SOURCE 04/03/2018 FERMIN Horn Primary FERMIN [id number] Insurance:MEDICAL FRANTZDOB: [facility] [id number] Number: Repository [address]Hda: 330 [id number] [phone] () Date:6660-73-[place] [address]01-[address]WP: 04/03/2018 Secondary NOT GIVENUNK [place] Insurance:SELF PAY [facility] Number: Effective Repository Date:2018-04-03 04/02/2018 FERMIN Justina Primary FERMIN Justina [id number] Insurance:MEDICAL FRANTZDOB: [facility] [id number] Number: Repository [address]Ftb: 330 [id number] [phone] () Date:8309-75-69IB[address] [address]ZA: 04/02/2018 Secondary NOT GIVENUNK [place] Insurance:SELF PAY [facility] Number: Effective Repository Date:2018-03-19 03/26/2018 FERMIN Justina Primary FERMIN Justina [id number] Insurance:MEDICAL FRANTZDOB: [facility] [id number], [place] Number: Repository [address]Jym: 330 [id number] [phone] (HP) Date:3880-75-44AM [address] [address]JR: 03/26/2018 Secondary NOT GIVENUNK [place] Insurance:SELF PAY [facility] Number: Effective Repository Date:2018-03-26 03/22/2018 FERMIN Horn Primary FERMIN Cruz [id number] Insurance:MEDICAL FRANTZDOB: [facility] [id number], [place] Number: Repository [address]Dzi: 330 [id number] [phone] (HP) Date:7502-76-84EX [address] [address]SB: 03/22/2018 Secondary NOT GIVENUNK [place] Insurance:SELF PAY [facility] Number: Effective Repository Date:2018-03-22 03/16/2018 FERMIN L Primary FERMIN Hawkinsoster [id number] Insurance:MEDICAL FRANTZDOB: [facility] [id number] Number: Repository [address]Zxx: 330 [id number] [phone] (HP) Date:8419-18-79UP [address] [address]CO: 03/16/2018 Secondary NOT GIVENUNK [place] Insurance:SELF PAY [facility] Number: Effective Repository Date:2018-03-16 03/16/2018 FERMIN L Primary FERMIN L [place] [id number] Insurance:MEDICAL FRANTZDOB: [facility] [id number] Number: Repository [address]Bhv: 330 [id number] [phone] (HP) Date:3075-77-22EI [address] [address]CK: 03/16/2018 Secondary NOT GIVENUNK [place] Insurance:SELF PAY [facility] Number: Effective Repository Date:2018-03-16 03/02/2018 FERMIN L Primary FERMIN Cruz [id number] Insurance:MEDICAL FRANTZDOB: [facility] [id number] [place] Number: Repository [address]Rjt: 330 [id number] [phone] (HP) Date:1929-58-93TY [address] [address]UR: 03/02/2018 Secondary NOT GIVENUNK [place] Insurance:SELF PAY [facility] Number: Effective Repository Date:2018-03-02 02/23/2018 FERMIN Horn Primary FERMIN Cruz [id number] Insurance:MEDICAL FRANTZDOB: [facility] [id number] [place] Number: Repository [address]Ayu: 330 [id number] [phone] (HP) Date:0455-64-35XJ [address] [address]WI: 02/23/2018 Secondary NOT GIVENUNK [place] Insurance:SELF PAY [facility] Number: Effective Repository Date:2018-02-23 02/15/2018 FERMIN Horn Primary FERMIN Cruz [id number] Insurance:MEDICAL FRANTZDOB: [facility] [id number], [place] Number: Repository [address]Qkt: 330 [id number] [phone] (HP) Date:1283-10-63TL [address] [place] [address]NK: 02/15/2018 Secondary NOT GIVENUNK [place] Insurance:SELF PAY [facility] Number: Effective Repository Date:2018-02-15 02/14/2018 FERMIN Horn Primary FERMIN Cruz [id number] Insurance:MEDICAL FRANTZDOB: [facility] [id number], [place] Number: Repository [address]Kif: 330 [id number] [phone] (HP) Date:0168-36-47VB [address] [address]ET: 02/14/2018 Secondary NOT GIVENUNK [place] Insurance:SELF PAY [facility] Number: Effective Repository Date:2018-02-13 01/30/2018 FERMIN Horn Primary FERMIN Horn [place] [id number] Insurance:MEDICAL FRANTZDOB: [facility] [id number], [place] Number: Repository [address]Reg: 330 [id number] [phone] (HP) Date:4373-78-00XN [address] [address]JJ: 01/30/2018 Secondary NOT GIVENUNK [place] Insurance:SELF PAY [facility] Number: Effective Repository Date:2018-01-30 11/30/2017 FERMIN Horn Primary FERMIN Horn [place] [id number] Insurance:MEDICAL FRANTZDOB: [facility] [id number] Number: Repository [address]Ubz: 330 [id number] [phone] (HP) Date:0063-18-30SS [address] [address]IX: 11/30/2017 Secondary NOT GIVENUNK [place] Insurance:SELF PAY [facility] Number: Effective Repository Date:2017-11-30 11/29/2017 FERMIN Horn Primary FERMIN Horn [place] [id number] Insurance:MEDICAL FRANTZDOB: [facility] [id number], [place] Number: Repository [address]Jsh: 330 [id number] [phone] (HP) Date:0845-28-10XN [address] [address]EJ: 11/29/2017 Secondary NOT GIVENUNK [place] Insurance:SELF PAY [facility] Number: Effective Repository Date:2017-11-29 11/22/2017 Fermin L Primary Fermin Horn [place] [id number] Insurance:MEDICAL FrantzDOB: [facility] [id number], [place] Number: Repository [address]Sxm: 330 [id number] [phone] (HP) Date:8578-44-20MU [address] [place] [address]ZS: 11/22/2017 Secondary NOT GIVENUNK [place] Insurance:SELF PAY [facility] Number: Effective Repository Date:2017-11-22 04/04/2017 FERMIN Horn [facility] FRANTZDOB: Insurance:SUPERMED FRANTZDOB: [facility] Number: [id number] Repository [place] [id number] [place], [place] Date:2017-04-04 - [place], [place] [address]Mth: [phone] [id number] [address]Wia: Name:[facility] [phone] ()Tel: [phone], [place] () (WP) [address]XU: ([phone] 03/22/2017 [id number] [facility] Insurance:MEDICAL FrantzDOB: [facility] [id number], [place] Number: Repository [address]Qfs: [id number] [phone] Date:1877-45-82KL [address] (HP) [address] [place] [address]UN: 03/22/2017 Secondary NOT GIVENUNK [place] Insurance:SELF PAY [facility] Number: Effective Repository Date:2017-02-13
== END ==
PROVIDERS: Family Provider Family Medicine; PCP Family Medicine; Referring Provider Nurse Practitioner Family; Visit Provider Nurse Practitioner Family
DX: T81.89XA Other complications of procedures, not elsewhere classified, initial encounter (principal)
CPT/HCPCS: 87070; 87205

== ENCOUNTER 2018-04-12 14:45 | Outpatient (RCR) | payer OTHER, SELFPAY ==
[2018-03-16 10:17] VITALS: BMI 33.0
[2018-03-22 13:32] VITALS: BP 133/79; PULSE 101; RESP 16; TEMP 36.8; BMI 33.0
--- NOTE | 2018-03-22 17:26 | PCM.WC.HP ---
(1) Nonhealing surgical wound Status: Acute Current Visit: Yes Code(s): T81.89XA - Other complications of procedures, not elsewhere classified, initial encounter (2) Hypertension Status: Chronic Current Visit: No Code(s): I10 - Essential (primary) hypertension (3) Sebaceous cyst Status: Chronic Current Visit: No Code(s): L72.3 - Sebaceous cyst History of Present Illness Date of Service: 03/22/18 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: Nonhealing wound on left lumbar back status post sebaceous cyst I&D on 02/14/2018 History of Wound: February 14, 2018 the patient had an i and d of a sebaceous cyst by his PCP. The patient has had ongoing moderate amount of serosanguineous drainage and nonhealing of the area since. The patient presents today and states the area is still draining bloody drainage. His does dressing changes to the site daily with saroj, which she is currently out of. He has been doing the Saroj for approximately 4 weeks. He denies any other treatments and denies any other aggravating or relieving factors. A recent wound culture was taken last week and was negative. He denies fever chills or other signs of infection. The patient otherwise denies any fever, chills, nausea, vomiting, shortness of breath, chest pain or pressure, palpitations, orthopnea, lower extremity edema, syncope or presyncopal episodes. Past Medical History Past Medical History: Chronic Problems (Last Reviewed 03/16/18 @ 10:09 by Val Yanez) Sebaceous cyst (Chronic) Hypertension (Chronic) Neuroma (Chronic) Surgical History: - Allergies/Adverse Reactions: Allergies No Known Allergies Allergy (Verified 03/16/18 10:16) Home Medications: Ambulatory Orders Medication Instructions Recorded albuterol sulfate HFA 90 2 puff INHALATION Q6H PRN 11/22/17 mcg/actuation aerosol inhaler diclofenac 1 % topical gel 2 g TOPICAL ONCE 11/29/17 cyclobenzaprine 10 mg tablet 5 - 10 mg PO TID PRN #30 tab 01/30/18 ibuprofen 800 mg tablet 800 mg PO BID-TID PRN #30 tab 01/30/18 lisinopril 10 mg tablet 10 mg PO DAILY #90 tab 01/30/18 amoxicillin 875 mg-potassium 1 tab PO BID 03/16/18 clavulanate 125 mg tablet - Family History Paternal Family History: Family History (Last Reviewed 03/16/18 @ 10:09 by Val Yanez) Grandfather Cancer Father Prostate cancer Grandfather CVA (cerebral vascular accident) Cancer - Prostate, - - Strip colon polyps Smoking Status: Never smoker Review of Systems Constitutional: Denies: Chills, Fever, Weight Change Eyes: Denies: Pain, Vision Change HEENT: Denies: Difficulty Hearing, Difficulty Swallowing, Sinus Congestion Cardiovascular: Denies: Chest Pain, Palpitations Respiratory: Denies: Cough, Shortness of Breath Gastrointestinal: Denies: Diarrhea, Nausea, Vomiting Genitourinary: Denies: Dysuria, Hematuria Skin: Reports: Wounds - See HPI Endocrine: Denies: Heat/ Cold Intolerance, Polydipsia, Polyuria Hematologic/ Lymphatic: Denies: Easy Bruising, Easy Bleeding - Physical Exam Vital Signs Temp Pulse Resp BP 98.2 F 101 H 16 133/79 H 03/22/18 13:32 03/22/18 13:32 03/22/18 13:32 03/22/18 13:32 General: Alert, Oriented x3, Cooperative, No apparent distress HEENT: Atraumatic Oral: Moist Mucosa Lungs: Clear to auscultation, Normal air movement Cardiovascular: Regular rate, Regular Rhythm Abdomen: Bowel Sounds Present, Soft, Non Tender, Non-Distended, Obese Extremities: No clubbing, No cyanosis, No edema, Peripheral Pulses Normal Skin: Ulcer/ Wound - Nonhealing postsurgical wound I&D of the left lumbar back with adherent slough in wound bed, no signs of obvious infection at this time, site was tender to palpation. No fluctuance felt. 0.5 circular undermining Wound Measurements and Assessment - Nurse 1 - General Ulcer Measurement Start: 03/22/18 13:32 Freq: Status: Active Protocol: Activity Type Activity Date Activity User E-Sign Co-Sign Detail Recorded Client Recorded Date Recorded By Document 03/22/18 13:32 [id number] 03/22/18 13:53 03/22/18 13:32 Wound Center Nurse 1 [Ulcer Assessment] #1 left lumbar back non healing post surgical -Combined with other wound No -Current Size (cm) - Length 1.6 -Current Size (cm) - Width 1.3 -Current Size (cm) - Depth 0.3 -Total Square Cm 2.08 -Date of Last Picture (Recall this 03/22/18 field) -Photo Taken Yes -Epithelialization None Present -Tunneling No -Undermining/Tunneling No -Circular Undermining No -Exudate Amt Large (67-100%) -Exudate Type Sanguineous -Wound Margin Distinct, Outline Attached -Granulation Amt None Present (0 %) -Granulation Quality N/A -Slough/Fibrin No -Necrosis Amt None Present (0 %) -Structure Exposed None/Limited to Skin Breakdown -Texture (Mayra-wound Skin Appearance) No Abnormality Assessed -Moisture (Mayra-wound Skin Appearance No Abnormality ) Assessed -Color (Mayra-wound Skin Appearance) No Abnormality Assessed -Temperature (Mayar-wound Skin No Abnormality Appearance) (Pt Warm) -Tenderness on Palpation (Mayra-wound Yes Skin Appearance) -Ulcer Cleansing Rinsed/ Irrigated with Saline -Foul Odor after Cleansing No -Anesthetic Used 4% Lidocaine Solution [Edema Assessment] -Lower Limb Edema Present NA WC - Nurse 2 - General Ulcer CM Notes Start: 03/22/18 13:32 Freq: Status: Active Protocol: Activity Type Activity Date Activity User E-Sign Co-Sign Detail Recorded Client Recorded Date Recorded By Document 03/22/18 14:25 [id number] 03/22/18 14:46 03/22/18 14:25 Wound Center Nurse 2 [Procedure/Treatment] #1 left lumbar back non healing post surgical -Time 14:34 -Correct Patient Yes -Correct Side, Site, Position Yes -Correct Procedure Yes -Procedure Performed Yes -Type of Procedure Debridement -Clinical Debridement Subcutaneous -Post Debridement Size (cm) - Length 1.6 -Post Debridement Size (cm) - Width 1.3 -Post Debridement Size (cm) - Depth 0.5 -Total Square Cm 2.08 -Wound/Ulcer Outcome Not Healed -Ulcer Cleansing Rinsed/ Irrigated with Saline -Foul Odor after Cleansing No -Bioengineered Tissue No -Injectable Lidocaine w/ Epi (%) 1 -Injectable Lidocaine w/ Epi (mls) 4 -Bleeding Controlled with Pressure Silver Nitrate -Other circular underming 0.5cm -Treatment Response Procedure Tolerated Well [See Physician Procedure note for Specifics] Pain Scale: 0-10 Numeric [Pain] -Is Patient Pain Free? Yes Musculoskeletal: No Tenderness to Palpation of Joints or Extremities, No Muscle Wasting Lymphatic: No Cervical, Supraclavicular, or Inguinal Adenopathy Neurological: Neuro grossly intact Psych/Mental Status: Normal Affect, Appropriate, Alert and oriented to time, place, person, mood and affect Debridement Note Post-Debridement Measurements/Treatment WC - Nurse 2 - General Ulcer CM Notes Start: 03/22/18 13:32 Freq: Status: Active Protocol: Activity Type Activity Date Activity User E-Sign Co-Sign Detail Recorded Client Recorded Date Recorded By Document 03/22/18 14:25 [id number] 03/22/18 14:46 03/22/18 14:25 Wound Center Nurse 2 #1 left lumbar back non healing post surgical -Time 14:34 -Correct Patient Yes -Correct Side, Site, Position Yes -Correct Procedure Yes -Procedure Performed Yes -Type of Procedure Debridement -Clinical Debridement Subcutaneous -Post Debridement Size (cm) - Length 1.6 -Post Debridement Size (cm) - Width 1.3 -Post Debridement Size (cm) - Depth 0.5 -Total Square Cm 2.08 -Wound/Ulcer Outcome Not Healed -Ulcer Cleansing Rinsed/ Irrigated with Saline -Foul Odor after Cleansing No -Bioengineered Tissue No -Injectable Lidocaine w/ Epi (%) 1 -Injectable Lidocaine w/ Epi (mls) 4 -Bleeding Controlled with Pressure Silver Nitrate -Other circular underming 0.5cm -Treatment Response Procedure Tolerated Well Pain Scale: 0-10 Numeric Is Patient Pain Free? Yes Wound debrided: Nonhealing postsurgical wound left lumbar status post I&D sebaceous cyst Laterality: Left Type of Debridement: Excisional debridement Anesthesia Used: 5% Lidocaine Gel, - - Lidocaine and epinephrine injection for localized anesthesia Depth: in the subcutaneous layer Percentage of wound debrided: 100 Instrument Used: 7mm curette, #15 blade, Forceps Tissue Removed: After site was anesthetized, excess necrotic tissue excised and slough Severity: Fat Layer Exposed Amount of bleeding with debridement: Mild Bleeding Controlled with: Pressure Patient tolerated procedure well Assessment/Plan Active Problems (Last Reviewed 03/16/18 @ 10:09 by Val Yanez) Nonhealing surgical wound (Acute) Assessment: Nonhealing post surgical wound status post I&D sebaceous cyst Plan: The patient was seen and examined at the wound center today and was updated on the plan of care. A subcutaneous debridement was performed today. The patient tolerated the procedure well. The patients wound care will consist of: Packing the site with Saroj daily, will apply for snapvac given the serosanguineous drainage and depth and will also apply for pure apply given the fact that he has had standard wound care times 4 weeks and still has delayed healing. Wound cultures were collected last week and were negative. Baseline bloodwork reviewed from PCP and an A1c should be ordered next week. Patient educated on the importance of diet on wound healing and instructed to increase protein and vitamin C intake. Patient verbalized understanding. Patient will follow up at wound healing center in one week or sooner if needed. Patient is leaving for a [facility] trip and is only able to be seen on Monday of the following week. He will be seen by Yamileth STAUFFER for his pure apply application and VAC application. Pending insurance approval. This note was generated with [employer] dictation software. It may contain incorrect words, spelling, and punctuation that were not noted in checking the note before signing. Code Visit Office Visits / Consults: [id number] OV L3 Est 111xxx-113xx: [id number] Pooja subq tissue 20 sq cm/<
--- NOTE | 2018-03-22 17:30 | HP.PCM_ITS ---
(1) Nonhealing surgical wound Status: Acute Current Visit: Yes Code(s): T81.89XA - Other complications of procedures, not elsewhere classified, initial encounter (2) Hypertension Status: Chronic Current Visit: No Code(s): I10 - Essential (primary) hypertension (3) Sebaceous cyst Status: Chronic Current Visit: No Code(s): L72.3 - Sebaceous cyst History of Present Illness Date of Service: 03/22/18 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: Nonhealing wound on left lumbar back status post sebaceous cyst I&D on 02/14/2018 History of Wound: February 14, 2018 the patient had an i and d of a sebaceous cyst by his PCP. The patient has had ongoing moderate amount of serosanguineous drainage and nonhealing of the area since. The patient presents today and states the area is still draining bloody drainage. His does dressing chavez ges to the site daily with saroj, which she is currently out of. He has been doing the Saroj for approximately 4 weeks. He denies any other treatments and denies any other aggravating or relieving factors. A recent wound culture was taken last week and was negative. He denies fever chills or other signs of infection. The patient otherwise denies any fever, chills, nausea, vomiting, shortness of breath, chest pain or pressure, palpitations, orthopnea, lower extremity edema, syncope or presyncopal episodes. Past Medical History Past Medical History: Chronic Problems (Last Reviewed 03/16/18 @ 10:09 by Val Yanez) Sebaceous cyst (Chronic) Hypertension (Chronic) Neuroma (Chronic) Surgical History: - Allergies/Adverse Reactions: Allergies No Known Allergies Allergy (Verified 03/16/18 10:16) Home Medications: Ambulatory Orders Medication Instructions Recorded albuterol sulfate HFA 90 2 puff INHALATION Q6H PRN 11/22/17 mcg/actuation aerosol inhaler diclofenac 1 % topical gel 2 g TOPICAL ONCE 11/29/17 cyclobenzaprine 10 mg tablet 5 - 10 mg PO TID PRN #30 tab 01/30/18 ibuprofen 800 mg tablet 800 mg PO BID-TID PRN #30 tab 01/30/18 lisinopril 10 mg tablet 10 mg PO DAILY #90 tab 01/30/18 amoxicillin 875 mg-potassium 1 tab PO BID 11/30/18 clavulanate 125 mg tablet - Family History Paternal Family History: Family History (Last Reviewed 03/16/18 @ 10:09 by Val Yanez) Grandfather Cancer Father Prostate cancer Grandfather CVA (cerebral vascular accident) Cancer - Prostate, - - Strip colon polyps Smoking Status: Never smoker Review of Systems Constitutional: Denies: Chills, Fever, Weight Change Eyes: Denies: Pain, Vision Change HEENT: Denies: Difficulty Hearing, Difficulty Swallowing, Sinus Congestion Cardiovascular: Denies: Chest Pain, Palpitations Respiratory: Denies: Cough, Shortness of Breath Gastrointestinal: Denies: Diarrhea, Nausea, Vomiting Genitourinary: Denies: Dysuria, Hematuria Skin: Reports: Wounds - See HPI Endocrine: Denies: Heat/ Cold Intolerance, Polydipsia, Polyuria Hematologic/ Lymphatic: Denies: Easy Bruising, Easy Bleeding - Physical Exam Vital Signs Temp Pulse Resp BP 98.2 F 101 H 16 133/79 H 03/22/18 13:32 03/22/18 13:32 03/22/18 13:32 03/22/18 13:32 General: Alert, Oriented x3, Cooperative, No apparent distress HEENT: Atraumatic Oral: Moist Mucosa Lungs: Clear to auscultation, Normal air movement Cardiovascular: Regular rate, Regular Rhythm Abdomen: Bowel Sounds Present, Soft, Non Tender, Non-Distended, Obese Extremities: No clubbing, No cyanosis, No edema, Peripheral Pulses Normal Skin: Ulcer/ Wound - Nonhealing postsurgical wound I&D of the left lumbar back with adherent slough in wound bed, no signs of obvious infection at this time, site was tender to palpation. No fluctuance felt. 0.5 circular undermining Wound Measurements and Assessment WC - Nurse 1 - General Ulcer Measurement Start: 03/22/18 13:32 Freq: Status: Active Protocol: Activity Type Activity Date Activity User E-Sign Co-Sign Detail Recorded Client Recorded Date Recorded By Document 03/22/18 13:32 [id number] 03/22/18 13:53 03/22/18 13:32 Wound Center Nurse 1 [Ulcer Assessment] #1 left lumbar back non healing post surgical -Combined with other wound No -Current Size (cm) - Length 1.6 -Current Size (cm) - Width 1.3 -Current Size (cm) - Depth 0.3 -Total Square Cm 2.08 -Date of Last Picture (Recall this 03/22/18 field) -Photo Taken Yes -Epithelialization None Present -Tunneling No -Undermining/Tunneling No -Circular Undermining No -Exudate Amt Large (67-100%) -Exudate Type Sanguineous -Wound Margin Distinct, Outline Attached -Granulation Amt None Present (0 %) -Granulation Quality N/A -Slough/Fibrin No -Necrosis Amt None Present (0 %) -Structure Exposed None/Limited to Skin Breakdown -Texture (Mayra-wound Skin Appearance) No Abnormality Assessed -Moisture (Mayra-wound Skin Appearance No Abnormality ) Assessed -Color (Mayra-wound Skin Appearance) No Abnormality Assessed -Temperature (Mayra-wound Skin No Abnormality Appearance) (Pt Warm) -Tenderness on Palpation (Mayra-wound Yes Skin Appearance) -Ulcer Cleansing Rinsed/ Irrigated with Saline -Foul Odor after Cleansing No -Anesthetic Used 4% Lidocaine Solution [Edema Assessment] -Lower Limb Edema Present NA WC - Nurse 2 - General Ulcer CM Notes Start: 03/22/18 13:32 Freq: Status: Active Protocol: Activity Type Activity Date Activity User E-Sign Co-Sign Detail Recorded Client Recorded Date Recorded By Document 03/22/18 14:25 [id number] 03/22/18 14:46 03/22/18 14:25 Wound Center Nurse 2 [Procedure/Treatment] #1 left lumbar back non healing post surgical -Time 14:34 -Correct Patient Yes -Correct Side, Site, Position Yes -Correct Procedure Yes -Procedure Performed Yes -Type of Procedure Debridement -Clinical Debridement Subcutaneous -Post Debridement Size (cm) - Length 1.6 -Post Debridement Size (cm) - Width 1.3 -Post Debridement Size (cm) - Depth 0.5 -Total Square Cm 2.08 -Wound/Ulcer Outcome Not Healed -Ulcer Cleansing Rinsed/ Irrigated with Saline -Foul Odor after Cleansing No -Bioengineered Tissue No -Injectable Lidocaine w/ Epi (%) 1 -Injectable Lidocaine w/ Epi (mls) 4 -Bleeding Controlled with Pressure Silver Nitrate -Other circular underming 0.5cm -Treatment Response Procedure Tolerated Well [See Physician Procedure note for Specifics] Pain Scale: 0-10 Numeric [Pain] -Is Patient Pain Free? Yes Musculoskeletal: No Tenderness to Palpation of Joints or Extremities, No Muscle Wasting Lymphatic: No Cervical, Supraclavicular, or Inguinal Adenopathy Neurological: Neuro grossly intact Psych/Mental Status: Normal Affect, Appropriate, Alert and oriented to time, place, person, mood and affect Debridement Note Post-Debridement Measurements/Treatment WC - Nurse 2 - General Ulcer CM Notes Start: 03/22/18 13:32 Freq: Status: Active Protocol: Activity Type Activity Date Activity User E-Sign Co-Sign Detail Recorded Client Recorded Date Recorded By Document 03/22/18 14:25 [id number] 03/22/18 14:46 03/22/18 14:25 Wound Center Nurse 2 #1 left lumbar back non healing post surgical -Time 14:34 -Correct Patient Yes -Correct Side, Site, Position Yes -Correct Procedure Yes -Procedure Performed Yes -Type of Procedure Debridement -Clinical Debridement Subcutaneous -Post Debridement Size (cm) - Length 1.6 -Post Debridement Size (cm) - Width 1.3 -Post Debridement Size (cm) - Depth 0.5 -Total Square Cm 2.08 -Wound/Ulcer Outcome Not Healed -Ulcer Cleansing Rinsed/ Irrigated with Saline -Foul Odor after Cleansing No -Bioengineered Tissue No -Injectable Lidocaine w/ Epi (%) 1 -Injectable Lidocaine w/ Epi (mls) 4 -Bleeding Controlled with Pressure Silver Nitrate -Other circular underming 0.5cm -Treatment Response Procedure Tolerated Well Pain Scale: 0-10 Numeric Is Patient Pain Free? Yes Wound debrided: Nonhealing postsurgical wound left lumbar status post I&D sebaceous cyst Laterality: Left Type of Debridement: Excisional debridement Anesthesia Used: 5% Lidocaine Gel, - - Lidocaine and epinephrine injection for localized anesthesia Depth: in the subcutaneous layer Percentage of wound debrided: 100 Instrument Used: 7mm curette, #15 blade, Forceps Tissue Removed: After site was anesthetized, excess necrotic tissue excised and slough Severity: Fat Layer Exposed Amount of bleeding with debridement: Mild Bleeding Controlled with: Pressure Patient tolerated procedure well Assessment/Plan Active Problems (Last Reviewed 03/16/18 @ 10:09 by Val Yanez) Nonhealing surgical wound (Acute) Assessment: Nonhealing post surgical wound status post I&D sebaceous cyst Plan: The patient was seen and examined at the wound center today and was updated on the plan of care. A subcutaneous debridement was performed today. The patient tolerated the procedure well. The patients wound care will consist of: Packing the site with Saroj daily, will apply for snapvac given the serosanguineous drainage and depth and will also apply for pure apply given the fact that he has had standard wound care times 4 weeks and still has delayed healing. Wound cultures were collected last week and were negative. Baseline bloodwork reviewed from PCP and an A1c should be ordered next week. Patient educated on the importance of diet on wound healing and instructed to increase protein and vitamin C intake. Patient verbalized understanding. Patient will follow up at wound healing center in one week or sooner if needed. Patient is leaving for a [facility] trip and is only able to be seen on Monday of the following week. He will be seen by Yamileth STAUFFER for his pure apply application and VAC application. Pending insurance approval. This note was generated with [employer] dictation software. It may contain incorrect words, spelling, and punctuation that were not noted in checking the note before signing. Code Visit Office Visits / Consults: [id number] OV L3 Est 111xxx-113xx: [id number] Pooja subq tissue 20 sq cm/<
[2018-03-26 09:47] VITALS: BP 134/74; PULSE 80; RESP 16; TEMP 36.8; BMI 33.0
--- NOTE | 2018-03-26 16:52 | PCM.WC.PN ---
(1) Nonhealing surgical wound Status: Acute Current Visit: Yes Code(s): T81.89XA - Other complications of procedures, not elsewhere classified, initial encounter (2) Sebaceous cyst Status: Acute Current Visit: No Code(s): L72.3 - Sebaceous cyst Type of Wound Date of Service: 03/26/18 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: Nonhealing wound on left lumbar back status post sebaceous cyst I&D on 02/14/2018 History of Wound: February 14, 2018 the patient had an i and d of a sebaceous cyst by his PCP. The patient has had ongoing moderate amount of serosanguineous drainage and nonhealing of the area since. The patient presents today and states the area is still draining bloody drainage. His does dressing changes to the site daily with saroj, which she is currently out of. He has been doing the Saroj for approximately 4 weeks. He denies any other treatments and denies any other aggravating or relieving factors. A recent wound culture was taken last week and was negative. He denies fever chills or other signs of infection. The patient otherwise denies any fever, chills, nausea, vomiting, shortness of breath, chest pain or pressure, palpitations, orthopnea, lower extremity edema, syncope or presyncopal episodes. Progress of Wound: Wound is clean and pink. - Physical Exam Vital Signs Temp Pulse Resp BP 98.2 F 80 16 134/74 H 03/26/18 09:47 03/26/18 09:47 03/26/18 09:47 03/26/18 09:47 General: Alert, Oriented x3, Cooperative HEENT: Atraumatic Oral: Moist Mucosa Lungs: Normal air movement Cardiovascular: Regular rate Extremities: No edema, Capillary Refill Less than 3 Seconds Skin: Ulcer/ Wound - Non healing wound left medial back, clean and dry Wound Measurements and Assessment WC - Nurse 1 - General Ulcer Measurement Start: 03/22/18 13:32 Freq: Status: Active Protocol: Activity Type Activity Date Activity User E-Sign Co-Sign Detail Recorded Client Recorded Date Recorded By Document 03/26/18 09:47 ARIADNE [id number] 03/26/18 09:59 ARIADNE 03/26/18 09:47 Wound Center Nurse 1 [Ulcer Assessment] #1 left lumbar back non healing post surgical -Combined with other wound No -Current Size (cm) - Length 1.9 -Current Size (cm) - Width 1.0 -Current Size (cm) - Depth 0.3 -Total Square Cm 1.90 -Photo Taken No -Epithelialization None Present -Tunneling No -Undermining/Tunneling Yes -Undermining/Tunneling Starts (O' 12 clock) -Undermining/Tunneling Ends (O'clock) 9 -Maximum Distance (cm) 0.3 -Circular Undermining No -Classification - Thickness Full Thickness without Exposed Support Structure -Exudate Amt Small (1-33%) -Exudate Type Serosanguineous -Wound Margin Distinct, Outline Attached -Granulation Amt Small (1-33%) -Granulation Quality Pale [place] -Slough/Fibrin Yes -Necrosis Amt None Present (0 %) -Necrotic Tissue Type Adherent Slough -Structure Exposed None/Limited to Skin Breakdown -Texture (Mayra-wound Skin Appearance) No Abnormality -Moisture (Mayra-wound Skin Appearance No Abnormality ) -Color (Mayra-wound Skin Appearance) No Abnormality -Temperature (Mayra-wound Skin No Abnormality Appearance) (Pt Warm) -Tenderness on Palpation (Mayra-wound No Skin Appearance) -Ulcer Cleansing Rinsed/ Irrigated with Saline -Foul Odor after Cleansing Yes -Anesthetic Used 5% Lidocaine Gel WC - Nurse 2 - General Ulcer CM Notes Start: 03/22/18 13:32 Freq: Status: Active Protocol: Activity Type Activity Date Activity User E-Sign Co-Sign Detail Recorded Client Recorded Date Recorded By Document 03/26/18 10:02 ARIADNE [id number] 03/26/18 10:14 ARIADNE 03/26/18 10:02 Wound Center Nurse 2 [Procedure/Treatment] -Time 10:13 -Correct Patient Yes -Correct Side, Site, Position Yes -Correct Procedure Yes -Procedure Performed Yes -Type of Procedure Debridement -Clinical Debridement Subcutaneous -Post Debridement Size (cm) - Length 2.0 -Post Debridement Size (cm) - Width 1.2 -Post Debridement Size (cm) - Depth 0.3 -Total Square Cm 2.40 -Wound/Ulcer Outcome Healed- Epithelialized -Ulcer Cleansing Rinsed/ Irrigated with Saline -Foul Odor after Cleansing No -Bioengineered Tissue No -Topical Lidocaine (%) 5 -Bleeding Controlled with NA -Offloading No -Treatment Response Procedure Tolerated Well [See Physician Procedure note for Specifics] Pain Scale: 0-10 Numeric [Pain] -Is Patient Pain Free? Yes Musculoskeletal: No Tenderness to Palpation of Joints or Extremities Neurological: Neuro grossly intact Psych/Mental Status: Normal Affect, Appropriate Debridement Note Post-Debridement Measurements/Treatment WC - Nurse 2 - General Ulcer CM Notes Start: 03/22/18 13:32 Freq: Status: Active Protocol: Activity Type Activity Date Activity User E-Sign Co-Sign Detail Recorded Client Recorded Date Recorded By Document 03/22/18 14:25 [id number] 03/22/18 14:46 Document 03/26/18 10:02 [id number] 03/26/18 10:14 03/22/18 03/26/18 14:25 10:02 Wound Center Nurse 2 #1 left lumbar back non healing post surgical -Time 14:34 10:13 -Correct Patient Yes Yes -Correct Side, Site, Position Yes Yes -Correct Procedure Yes Yes -Procedure Performed Yes Yes -Type of Procedure Debridement Debridement -Clinical Debridement Subcutaneous Subcutaneous -Post Debridement Size (cm) - Length 1.6 2.0 -Post Debridement Size (cm) - Width 1.3 1.2 -Post Debridement Size (cm) - Depth 0.5 0.3 -Total Square Cm 2.08 2.40 -Wound/Ulcer Outcome Not Healed Healed- Epithelialized -Ulcer Cleansing Rinsed/ Rinsed/ Irrigated with Irrigated with Saline Saline -Foul Odor after Cleansing No No -Bioengineered Tissue No No -Topical Lidocaine (%) 5 -Injectable Lidocaine w/ Epi (%) 1 -Injectable Lidocaine w/ Epi (mls) 4 -Bleeding Controlled with Pressure NA Silver Nitrate -Other circular underming 0.5cm -Offloading No -Treatment Response Procedure Procedure Tolerated Well Tolerated Well Pain Scale: 0-10 Numeric Is Patient Pain Free? Yes Yes Wound debrided: Left medial back opened wound Anesthesia Used: 4% Lidocaine Solution Depth: Down to and including healthy tissue, in the subcutaneous layer Percentage of wound debrided: 100 Instrument Used: 3mm curette Tissue Removed: Subcutaneous tissue and slough Severity: Limited To Skin Breakdown Amount of bleeding with debridement: Mild Bleeding Controlled with: Pressure Patient tolerated procedure well Assessment/Plan Active Problems (Last Reviewed 03/16/18 @ 10:09 by Val Yanez) Nonhealing surgical wound (Acute) Assessment: Nonhealing post surgical wound status post I&D sebaceous cyst Plan: This a courtesy visit. The patient typically sees Juan Alberto Harvey NP, but the patient is going to be out of town at the end of the week. The patient was seen and examined at the wound center today and was updated on the plan of care. A subcutaneous debridement was performed today. The patient tolerated the procedure well. We will start the SNAP VAC today. We are still waiting for approval for pure apply. Wound cultures were collected last week and were negative. Baseline bloodwork reviewed from PCP and an A1c should be ordered next week. Patient educated on the importance of diet on wound healing and instructed to increase protein and vitamin C intake. Patient verbalized understanding. Patient will follow up at wound healing center next Monday for a SNAP vac change, then to see Juan Alberto STAUFFER. Patient is leaving for a [facility] tomorrow. He will try to keep the VAC on for the week. He has been instructed that if he has issues with the VAC then he should do daily Saroj dressing changes. This note was generated with [employer] dictation software. It may contain incorrect words, spelling, and punctuation that were not noted in checking the note before signing. Code Visit 111xxx-113xx: [id number] Pooja subq tissue 20 sq cm/<
--- NOTE | 2018-03-26 16:59 | PN.PCM_ITS ---
(1) Nonhealing surgical wound Status: Acute Current Visit: Yes Code(s): T81.89XA - Other complications of procedures, not elsewhere classified, initial encounter (2) Sebaceous cyst Status: Acute Current Visit: No Code(s): L72.3 - Sebaceous cyst Type of Wound Date of Service: 03/26/18 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: Nonhealing wound on left lumbar back status post sebaceous cyst I&D on 02/14/2018 History of Wound: February 14, 2018 the patient had an i and d of a sebaceous cyst by his PCP. The patient has had ongoing moderate amount of serosanguineous drainage and nonhealing of the area since. The patient presents today and states the area is still draining bloody drainage. His does dressing changes to the site daily with saroj, which she is currently out of. He has been doing the Saroj for approximately 4 weeks. He denies any other treatments and denies any other aggravating or relieving factors. A recent wound culture was taken last week and was negative. He denies fever chills or other signs of infection. The patient otherwise denies any fever, chills, nausea, vomiting, shortness of breath, chest pain or pressure, palpitations, orthopnea, lower extremity edema, syncope or presyncopal episodes. Progress of Wound: Wound is clean and pink. - Physical Exam Vital Signs Temp Pulse Resp BP 98.2 F 80 16 134/74 H 03/26/18 09:47 03/26/18 09:47 03/26/18 09:47 03/26/18 09:47 General: Alert, Oriented x3, Cooperative HEENT: Atraumatic Oral: Moist Mucosa Lungs: Normal air movement Cardiovascular: Regular rate Extremities: No edema, Capillary Refill Less than 3 Seconds Skin: Ulcer/ Wound - Non healing wound left medial back, clean and dry Wound Measurements and Assessment WC - Nurse 1 - General Ulcer Measurement Start: 03/22/18 13:32 Freq: Status: Active Protocol: Activity Type Activity Date Activity User E-Sign Co-Sign Detail Recorded Client Recorded Date Recorded By Document 03/26/18 09:47 ARIADNE [id number] 03/26/18 09:59 ARIADNE 03/26/18 09:47 Wound Center Nurse 1 [Ulcer Assessment] #1 left lumbar back non healing post surgical -Combined with other wound No -Current Size (cm) - Length 1.9 -Current Size (cm) - Width 1.0 -Current Size (cm) - Depth 0.3 -Total Square Cm 1.90 -Photo Taken No -Epithelialization None Present -Tunneling No -Undermining/Tunneling Yes -Undermining/Tunneling Starts (O' 12 clock) -Undermining/Tunneling Ends (O'clock) 9 -Maximum Distance (cm) 0.3 -Circular Undermining No -Classification - Thickness Full Thickness without Exposed Support Structure -Exudate Amt Small (1-33%) -Exudate Type Serosanguineous -Wound Margin Distinct, Outline Attached -Granulation Amt Small (1-33%) -Granulation Quality Pale [place] -Slough/Fibrin Yes -Necrosis Amt None Present (0 %) -Necrotic Tissue Type Adherent Slough -Structure Exposed None/Limited to Skin Breakdown -Texture (Mayra-wound Skin Appearance) No Abnormality -Moisture (Mayra-wound Skin Appearance No Abnormality ) -Color (Mayra-wound Skin Appearance) No Abnormality -Temperature (Mayra-wound Skin No Abnormality Appearance) (Pt Warm) -Tenderness on Palpation (Mayra-wound No Skin Appearance) -Ulcer Cleansing Rinsed/ Irrigated with Saline -Foul Odor after Cleansing Yes -Anesthetic Used 5% Lidocaine Gel WC - Nurse 2 - General Ulcer CM Notes Start: 03/22/18 13:32 Freq: Status: Active Protocol: Activity Type Activity Date Activity User E-Sign Co-Sign Detail Recorded Client Recorded Date Recorded By Document 03/26/18 10:02 ARIADNE [id number] 03/26/18 10:14 ARIADNE 03/26/18 10:02 Wound Center Nurse 2 [Procedure/Treatment] -Time 10:13 -Correct Patient Yes -Correct Side, Site, Position Yes -Correct Procedure Yes -Procedure Performed Yes -Type of Procedure Debridement -Clinical Debridement Subcutaneous -Post Debridement Size (cm) - Length 2.0 -Post Debridement Size (cm) - Width 1.2 -Post Debridement Size (cm) - Depth 0.3 -Total Square Cm 2.40 -Wound/Ulcer Outcome Healed- Epithelialized -Ulcer Cleansing Rinsed/ Irrigated with Saline -Foul Odor after Cleansing No -Bioengineered Tissue No -Topical Lidocaine (%) 5 -Bleeding Controlled with NA -Offloading No -Treatment Response Procedure Tolerated Well [See Physician Procedure note for Specifics] Pain Scale: 0-10 Numeric [Pain] -Is Patient Pain Free? Yes Musculoskeletal: No Tenderness to Palpation of Joints or Extremities Neurological: Neuro grossly intact Psych/Mental Status: Normal Affect, Appropriate Debridement Note Post-Debridement Measurements/Treatment WC - Nurse 2 - General Ulcer CM Notes Start: 03/22/18 13:32 Freq: Status: Active Protocol: Activity Type Activity Date Activity User E-Sign Co-Sign Detail Recorded Client Recorded Date Recorded By Document 03/22/18 14:25 [id number] 03/22/18 14:46 Document 03/26/18 10:02 [id number] 03/26/18 10:14 03/22/18 03/26/18 14:25 10:02 Wound Center Nurse 2 #1 left lumbar back non healing post surgical -Time 14:34 10:13 -Correct Patient Yes Yes -Correct Side, Site, Position Yes Yes -Correct Procedure Yes Yes -Procedure Performed Yes Yes -Type of Procedure Debridement Debridement -Clinical Debridement Subcutaneous Subcutaneous -Post Debridement Size (cm) - Length 1.6 2.0 -Post Debridement Size (cm) - Width 1.3 1.2 -Post Debridement Size (cm) - Depth 0.5 0.3 -Total Square Cm 2.08 2.40 -Wound/Ulcer Outcome Not Healed Healed- Epithelialized -Ulcer Cleansing Rinsed/ Rinsed/ Irrigated with Irrigated with Saline Saline -Foul Odor after Cleansing No No -Bioengineered Tissue No No -Topical Lidocaine (%) 5 -Injectable Lidocaine w/ Epi (%) 1 -Injectable Lidocaine w/ Epi (mls) 4 -Bleeding Controlled with Pressure NA Silver Nitrate -Other circular underming 0.5cm -Offloading No -Treatment Response Procedure Procedure Tolerated Well Tolerated Well Pain Scale: 0-10 Numeric Is Patient Pain Free? Yes Yes Wound debrided: Left medial back opened wound Anesthesia Used: 4% Lidocaine Solution Depth: Down to and including healthy tissue, in the subcutaneous layer Percentage of wound debrided: 100 Instrument Used: 3mm curette Tissue Removed: Subcutaneous tissue and slough Severity: Limited To Skin Breakdown Amount of bleeding with debridement: Mild Bleeding Controlled with: Pressure Patient tolerated procedure well Assessment/Plan Active Problems (Last Reviewed 03/16/18 @ 10:09 by Val Yanez) Nonhealing surgical wound (Acute) Assessment: Nonhealing post surgical wound status post I&D sebaceous cyst Plan: This a courtesy visit. The patient typically sees Juan Alberto Harvey NP, but the patient is going to be out of town at the end of the week. The patient was seen and examined at the wound center today and was updated on the plan of care. A subcutaneous debridement was performed today. The patient tolerated the procedure well. We will start the SNAP VAC today. We are still waiting for approval for pure apply. Wound cultures were collected last week and were negative. Baseline bloodwork reviewed from PCP and an A1c should be ordered next week. Patient educated on the importance of diet on wound healing and instructed to increase protein and vitamin C intake. Patient verbalized understanding. Patient will follow up at wound healing center next Monday for a SNAP vac change, then to see Juan Alberto STAUFFER. Patient is leaving for a [facility] tomorrow. He will try to keep the VAC on for the week. He has been instructed that if he has issues with the VAC then he should do daily Saroj dressing changes. This note was generated with [employer] dictation software. It may contain incorrect words, spelling, and punctuation that were not noted in checking the note before signing. Code Visit 111xxx-113xx: 43434 Pooja subq tissue 20 sq cm/<
[2018-04-02 14:39] VITALS: BP 148/78; PULSE 89; RESP 18; TEMP 36.4; BMI 33.0
[2018-04-05 14:52] VITALS: BP 129/83; PULSE 113; RESP 16; TEMP 36.6; BMI 33.0
[2018-04-05 17:27] LABS: Absolute Lymphocyte Count 1.46 X10^3/ul (0.83-4.51); Absolute Neutrophil Count 5.6 X10^3/uL (2.0-7.7); Basophil# 0.03 X10^3/uL; Basophil% 0.4 % (0-1); Eosinophil# 0.07 X10^3/uL; Eosinophils% 0.9 % (0-5); Hematocrit 42.3 % (40-54); Hemoglobin 13.8 g/dl (13.0-16.5); Lymphocyte # 1.46 X10^3/ul (4.0); Lymphocyte % 18.9 % (19-41); Mean Corp Hgb Conc 32.6 g/gl (32-36); Mean Corpuscular Hgb 29.5 pg (27.0-32.0); Mean Corpuscular Volume 90.4 fL (80-94); Monocyte# 0.59 X10^3/uL; Monocyte% 7.6 % (0-10); Neutrophil # 5.58 X10^3/uL (2.7-7.7); Neutrophil % 72.2 % (47-70); Platelet Count 255 K/mm3 (150-450); RBC Distribution Width SD 42.6 fl (35.1-43.9); Red Blood Count 4.68 M/mm3 (4.6-6.2); White Blood Count 7.7 K/mm3 (4.4-11.0)
[2018-04-05 17:31] LABS: POSITIVE COUNT NO; POSITIVE DIFFERENTIAL NO; POSITIVE MORPHOLOGY NO
--- NOTE | 2018-04-05 20:44 | PCM.WC.PN ---
(1) Nonhealing surgical wound Status: Acute Code(s): T81.89XA - Other complications of procedures, not elsewhere classified, initial encounter Comment: x 2 s/p incision and drainage sebaceous cyst on left and right back (2) Hypertension Status: Chronic Code(s): I10 - Essential (primary) hypertension (3) Sebaceous cyst Status: Acute Code(s): L72.3 - Sebaceous cyst (4) Type 2 diabetes mellitus Status: Acute Qualifiers: Diabetes mellitus fci insulin use: without fci use Diabetes mellitus complication status: with skin complications Diabetes mellitus complication detail: with other skin complication Qualified Code(s): E11.628 - Type 2 diabetes mellitus with other skin complications Code(s): E11.9 - Type 2 diabetes mellitus without complications Type of Wound Date of Service: 04/05/18 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: Nonhealing wound on left lumbar back status post sebaceous cyst I&D on 02/14/2018 and right throacic back I and D of sebaceous cyst on 04/03/18 by pcp History of Wound: February 14, 2018 the patient had an i and d of a sebaceous cyst by his PCP. The patient has had ongoing moderate amount of serosanguineous drainage and nonhealing of the area since. The patient presents today and states the area is still draining bloody drainage. His does dressing changes to the site daily with saroj, which she is currently out of. He has been doing the Saroj for approximately 4 weeks. He denies any other treatments and denies any other aggravating or relieving factors. A recent wound culture was taken last week and was negative. He denies fever chills or other signs of infection. The patient otherwise denies any fever, chills, nausea, vomiting, shortness of breath, chest pain or pressure, palpitations, orthopnea, lower extremity edema, syncope or presyncopal episodes. Progress of Wound: Wound is clean and pink without signs of infection at this time, new wound status post I&D present right upper back without signs of infection either, large amount of slough present in wound bed. - Physical Exam Vital Signs Temp Pulse Resp BP 98 F 113 H 16 129/83 H 04/05/18 14:52 04/05/18 14:52 04/05/18 14:52 04/05/18 14:52 General: Alert, Oriented x3, Cooperative, No apparent distress HEENT: Atraumatic Oral: Moist Mucosa Lungs: Clear to auscultation Cardiovascular: Regular rate Abdomen: Soft, Non Tender, Obese Extremities: No clubbing, No cyanosis, No edema Skin: Ulcer/ Wound - See nursing documentation of wounds, left lower back wound without signs of infection healthy granular wound bed, some undermining present from 5 to 7 PM 0.5 cm, large amount of slough present right upper back status post I&D wound Neurological: Neuro grossly intact Psych/Mental Status: Normal Affect, Appropriate, Alert and oriented to time, place, person, mood and affect Debridement Note Post-Debridement Measurements/Treatment WC - Nurse 2 - General Ulcer CM Notes Start: 03/22/18 13:32 Freq: Status: Active Protocol: Activity Type Activity Date Activity User E-Sign Co-Sign Detail Recorded Client Recorded Date Recorded By Document 03/22/18 14:25 [id number] 03/22/18 14:46 TM Document 03/26/18 10:02 JS [id number] 03/26/18 10:14 JS Document 04/05/18 15:12 [id number] 04/05/18 15:15 03/22/18 03/26/18 04/05/18 14:25 10:02 15:12 Wound Center Nurse 2 # 2- RT SCAPULA -Time 15:15 -Correct Patient Yes -Correct Side, Site, Position Yes -Correct Procedure Yes -Procedure Performed Yes -Type of Procedure Debridement -Clinical Debridement Subcutaneous -Post Debridement Size (cm) - Length 0.6 -Post Debridement Size (cm) - Width 0.7 -Post Debridement Size (cm) - Depth 0.5 -Total Square Cm 0.42 -Wound/Ulcer Outcome Not Healed -Ulcer Cleansing Not Cleansed -Foul Odor after Cleansing No -Bioengineered Tissue No -Bleeding Controlled with Pressure -Offloading No -Treatment Response Procedure Tolerated Well #1 left lumbar back non healing post surgical -Time 14:34 10:13 15:12 -Correct Patient Yes Yes Yes -Correct Side, Site, Position Yes Yes Yes -Correct Procedure Yes Yes Yes -Procedure Performed Yes Yes Yes -Type of Procedure Debridement Debridement Debridement -Clinical Debridement Subcutaneous Subcutaneous Subcutaneous -Post Debridement Size (cm) - Length 1.6 2.0 2 -Post Debridement Size (cm) - Width 1.3 1.2 1.2 -Post Debridement Size (cm) - Depth 0.5 0.3 0.3 -Total Square Cm 2.08 2.40 2.4 -Wound/Ulcer Outcome Not Healed Healed- Not Healed Epithelialized -Ulcer Cleansing Rinsed/ Rinsed/ Not Cleansed Irrigated with Irrigated with Saline Saline -Foul Odor after Cleansing No No No -Bioengineered Tissue No No No -Topical Lidocaine (%) 5 -Injectable Lidocaine w/ Epi (%) 1 -Injectable Lidocaine w/ Epi (mls) 4 -Bleeding Controlled with Pressure NA NA Silver Nitrate -Other circular underming 0.5cm -Offloading No No -Treatment Response Procedure Procedure Procedure Tolerated Well Tolerated Well Tolerated Well Pain Scale: 0-10 Numeric Is Patient Pain Free? Yes Yes Yes Wound debrided: Left lower back wound Laterality: Left Type of Debridement: Excisional debridement Anesthesia Used: 5% Lidocaine Gel Depth: in the subcutaneous layer Percentage of wound debrided: 100 Instrument Used: 7mm curette Tissue Removed: Slough and devitalized tissue Severity: Fat Layer Exposed Amount of bleeding with debridement: Mild Bleeding Controlled with: Pressure Patient tolerated procedure well - Additional Wound Wound debrided: Right upper back wound Type of Debridement: Excisional debridement Anesthesia Used: 5% Lidocaine Gel Depth: in the subcutaneous layer Percentage of wound debrided: 100 Instrument Used: 7mm curette Tissue Removed: Slough and devitalized tissue Severity: Fat Layer Exposed Amount of bleeding with debridement: Mild Bleeding Controlled with: Pressure Assessment/Plan Assessment: Nonhealing post surgical wound status post I&D sebaceous cyst Plan: The patient was seen and examined at the wound center today and was updated on the plan of care. A subcutaneous debridement was performed today. The patient tolerated the procedure well. We will continue the SNAP VAC today on the left lower back wound and Saroj to the right upper back wound. Wound cultures were collected last week and were negative. Baseline bloodwork reviewed from PCP and an A1c was elevated at 6.6 and is being managed by PCP. Patient educated on the importance of diet on wound healing and instructed to increase protein and vitamin C intake. Discussed importance of improved glycemic control. Patient verbalized understanding. Patient will follow up at wound healing center in 1 week or sooner if needed. He has been instructed that if he has issues with the VAC then he should do daily Saroj dressing changes. This note was generated with [employer] software. It may contain incorrect words, spelling, and punctuation that were not noted in checking the note before signing. Code Visit 111xxx-113xx: 62252 Pooja subq tissue 20 sq cm/<
[2018-04-06 08:51] LABS: Hemoglobin A1c 6.6 % (4.2-6.3)
--- NOTE | 2018-04-11 08:48 | PN.PCM_ITS ---
(1) Nonhealing surgical wound Status: Acute Code(s): T81.89XA - Other complications of procedures, not elsewhere classified, initial encounter Comment: x 2 s/p incision and drainage sebaceous cyst on left and right back (2) Hypertension Status: Chronic Code(s): I10 - Essential (primary) hypertension (3) Sebaceous cyst Status: Acute Code(s): L72.3 - Sebaceous cyst (4) Type 2 diabetes mellitus Status: Acute Qualifiers: Diabetes mellitus skilled nursing insulin use: without skilled nursing use Diabetes mellitus complication status: with skin complications Diabetes mellitus complication detail: with other skin complication Qualified Code(s): E11.628 - Type 2 diabetes mellitus with other skin complications Code(s): E11.9 - Type 2 diabetes mellitus without complications Type of Wound Date of Service: 04/05/18 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: Nonhealing wound on left lumbar back status post sebaceous cyst I&D on 02/14/2018 and right throacic back I and D of sebaceous cyst on 04/03/18 by pcp History of Wound: February 14, 2018 the patient had an i and d of a sebaceous cyst by his PCP. The patient has had ongoing moderate amount of serosanguineous drainage and nonhealing of the area since. The patient presents today and states the area is still draining bloody drainage. His does dressing ch anges to the site daily with saroj, which she is currently out of. He has been doing the Saroj for approximately 4 weeks. He denies any other treatments and denies any other aggravating or relieving factors. A recent wound culture was taken last week and was negative. He denies fever chills or other signs of infection. The patient otherwise denies any fever, chills, nausea, vomiting, shortness of breath, chest pain or pressure, palpitations, orthopnea, lower extremity edema, syncope or presyncopal episodes. Progress of Wound: Wound is clean and pink without signs of infection at this time, new wound status post I&D present right upper back without signs of infection either, large amount of slough present in wound bed. - Physical Exam Vital Signs Temp Pulse Resp BP 98 F 113 H 16 129/83 H 04/05/18 14:52 04/05/18 14:52 04/05/18 14:52 04/05/18 14:52 General: Alert, Oriented x3, Cooperative, No apparent distress HEENT: Atraumatic Oral: Moist Mucosa Lungs: Clear to auscultation Cardiovascular: Regular rate Abdomen: Soft, Non Tender, Obese Extremities: No clubbing, No cyanosis, No edema Skin: Ulcer/ Wound - See nursing documentation of wounds, left lower back wound without signs of infection healthy granular wound bed, some undermining present from 5 to 7 PM 0.5 cm, large amount of slough present right upper back status post I&D wound Neurological: Neuro grossly intact Psych/Mental Status: Normal Affect, Appropriate, Alert and oriented to time, place, person, mood and affect Debridement Note Post-Debridement Measurements/Treatment WC - Nurse 2 - General Ulcer CM Notes Start: 03/22/18 13:32 Freq: Status: Active Protocol: Activity Type Activity Date Activity User E-Sign Co-Sign Detail Recorded Client Recorded Date Recorded By Document 03/22/18 14:25 [id number] 03/22/18 14:46 Document 03/26/18 10:02 JS [id number] 03/26/18 10:14 Document 04/05/18 15:12 [id number] 04/05/18 15:15 03/22/18 03/26/18 04/05/18 14:25 10:02 15:12 Wound Center Nurse 2 # 2- RT SCAPULA -Time 15:15 -Correct Patient Yes -Correct Side, Site, Position Yes -Correct Procedure Yes -Procedure Performed Yes -Type of Procedure Debridement -Clinical Debridement Subcutaneous -Post Debridement Size (cm) - Length 0.6 -Post Debridement Size (cm) - Width 0.7 -Post Debridement Size (cm) - Depth 0.5 -Total Square Cm 0.42 -Wound/Ulcer Outcome Not Healed -Ulcer Cleansing Not Cleansed -Foul Odor after Cleansing No -Bioengineered Tissue No -Bleeding Controlled with Pressure -Offloading No -Treatment Response Procedure Tolerated Well #1 left lumbar back non healing post surgical -Time 14:34 10:13 15:12 -Correct Patient Yes Yes Yes -Correct Side, Site, Position Yes Yes Yes -Correct Procedure Yes Yes Yes -Procedure Performed Yes Yes Yes -Type of Procedure Debridement Debridement Debridement -Clinical Debridement Subcutaneous Subcutaneous Subcutaneous -Post Debridement Size (cm) - Length 1.6 2.0 2 -Post Debridement Size (cm) - Width 1.3 1.2 1.2 -Post Debridement Size (cm) - Depth 0.5 0.3 0.3 -Total Square Cm 2.08 2.40 2.4 -Wound/Ulcer Outcome Not Healed Healed- Not Healed Epithelialized -Ulcer Cleansing Rinsed/ Rinsed/ Not Cleansed Irrigated with Irrigated with Saline Saline -Foul Odor after Cleansing No No No -Bioengineered Tissue No No No -Topical Lidocaine (%) 5 -Injectable Lidocaine w/ Epi (%) 1 -Injectable Lidocaine w/ Epi (mls) 4 -Bleeding Controlled with Pressure NA NA Silver Nitrate -Other circular underming 0.5cm -Offloading No No -Treatment Response Procedure Procedure Procedure Tolerated Well Tolerated Well Tolerated Well Pain Scale: 0-10 Numeric Is Patient Pain Free? Yes Yes Yes Wound debrided: Left lower back wound Laterality: Left Type of Debridement: Excisional debridement Anesthesia Used: 5% Lidocaine Gel Depth: in the subcutaneous layer Percentage of wound debrided: 100 Instrument Used: 7mm curette Tissue Removed: Slough and devitalized tissue Severity: Fat Layer Exposed Amount of bleeding with debridement: Mild Bleeding Controlled with: Pressure Patient tolerated procedure well - Additional Wound Wound debrided: Right upper back wound Type of Debridement: Excisional debridement Anesthesia Used: 5% Lidocaine Gel Depth: in the subcutaneous layer Percentage of wound debrided: 100 Instrument Used: 7mm curette Tissue Removed: Slough and devitalized tissue Severity: Fat Layer Exposed Amount of bleeding with debridement: Mild Bleeding Controlled with: Pressure Assessment/Plan Assessment: Nonhealing post surgical wound status post I&D sebaceous cyst Plan: The patient was seen and examined at the wound center today and was updated on the plan of care. A subcutaneous debridement was performed today. The patient tolerated the procedure well. We will continue the SNAP VAC today on the left lower back wound and Saroj to the right upper back wound. Wound cultures were collected last week and were negative. Baseline bloodwork reviewed from PCP and an A1c was elevated at 6.6 and is being managed by PCP. Patient educated on the importance of diet on wound healing and instructed to increase protein and vitamin C intake. Discussed importance of improved glycemic control. Patient verbalized understanding. Patient will follow up at wound healing center in 1 week or sooner if needed. He has been instructed that if he has issues with the VAC then he should do daily Saroj dressing changes. This note was generated with [employer] dictation software. It may contain incorrect words, spelling, and punctuation that were not noted in checking the note before signing. Code Visit 111xxx-113xx: [id number] Pooja subq tissue 20 sq cm/<
[2018-04-12 14:46] VITALS: BP 134/84; PULSE 89; RESP 18; TEMP 36.6; BMI 33.0
--- NOTE | 2018-04-12 20:17 | PCM.WC.PN ---
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 The patient has had ongoing moderate amount of serosanguineous drainage and nonhealing of the area since. The patient presents today and states the area is still draining bloody drainage. His does dressing changes to the site daily with saroj, which she is currently out of. He has been doing the Saroj for approximately 4 weeks. He denies any other treatments and denies any other aggravating or relieving factors. A recent wound culture was taken last week and was negative. He denies fever chills or other signs of infection. The patient otherwise denies any fever, chills, nausea, vomiting, shortness of breath, chest pain or pressure, palpitations, orthopnea, lower extremity edema, syncope or presyncopal episodes. Progress of Wound: Left back Wound is stable, size slightly worsened this week, tolerating snap vac well, clean and pink without signs of infection at this time, right upper back wound size improving without signs of infection either, large amount of slough present in wound bed. Patient was recently seen by his PCP and diagnosed with type 2 DM. - Physical Exam Vital Signs Temp Pulse Resp BP 98 F 89 18 134/84 H 04/12/18 14:46 04/12/18 14:46 04/12/18 14:46 04/12/18 14:46 General: Alert, Oriented x3, Cooperative, No apparent distress HEENT: Atraumatic Oral: Moist Mucosa Lungs: Clear to auscultation Cardiovascular: Regular rate Abdomen: Bowel Sounds Present, Soft, Non Tender, Obese Extremities: No clubbing, No cyanosis, No edema Skin: Ulcer/ Wound - Wound to left lower back and right upper back with adherent slough, no signs of obvious infection at this time, no purulent drainage, some serosanguineous drainage still present. Wound Measurements and Assessment WC - Nurse 1 - General Ulcer Measurement Start: 03/22/18 13:32 Freq: Status: Active Protocol: Activity Type Activity Date Activity User E-Sign Co-Sign Detail Recorded Client Recorded Date Recorded By Document 04/12/18 14:46 [facility] [id number] 04/12/18 14:48 BM 04/12/18 14:46 Wound Center Nurse 1 [Ulcer Assessment] # 2- RT SCAPULA -Combined with other wound No -Current Size (cm) - Length 0.4 -Current Size (cm) - Width 0.5 -Current Size (cm) - Depth 0.3 -Total Square Cm 0.20 -Photo Taken No -Epithelialization Small 1-33% -Tunneling No -Undermining/Tunneling No -Circular Undermining No -Exudate Amt Small (1-33%) -Exudate Type Sanguineous -Wound Margin Distinct, Outline Attached -Granulation Amt Large (67-100%) -Granulation Quality Red -Slough/Fibrin No -Necrosis Amt None Present (0 %) -Texture (Mayra-wound Skin Appearance) Scarring Rash -Moisture (Mayra-wound Skin Appearance Assessed ) -Color (Mayra-wound Skin Appearance) Assessed Erythema -Temperature (Mayra-wound Skin No Abnormality Appearance) (Pt Warm) -Tenderness on Palpation (Mayra-wound No Skin Appearance) -Ulcer Cleansing Rinsed/ Irrigated with Saline -Foul Odor after Cleansing No -Anesthetic Used 5% Lidocaine Gel #1 left lumbar back non healing post surgical -Combined with other wound No -Current Size (cm) - Length 2.3 -Current Size (cm) - Width 1.3 -Current Size (cm) - Depth 0.4 -Total Square Cm 2.99 -Photo Taken No -Epithelialization None Present -Tunneling No -Undermining/Tunneling No -Circular Undermining No -Exudate Amt Medium (34-66%) -Exudate Type Serosanguineous -Wound Margin Distinct, Outline Attached -Granulation Amt Large (67-100%) -Granulation Quality Red -Slough/Fibrin No -Necrosis Amt None Present (0 %) -Texture (Mayra-wound Skin Appearance) Scarring -Moisture (Mayra-wound Skin Appearance Assessed ) -Color (Mayra-wound Skin Appearance) Assessed -Temperature (Mayra-wound Skin No Abnormality Appearance) (Pt Warm) -Tenderness on Palpation (Mayra-wound No Skin Appearance) -Ulcer Cleansing Rinsed/ Irrigated with Saline -Foul Odor after Cleansing No -Anesthetic Used 5% Lidocaine Gel WC - Nurse 2 - General Ulcer CM Notes Start: 03/22/18 13:32 Freq: Status: Active Protocol: Activity Type Activity Date Activity User E-Sign Co-Sign Detail Recorded Client Recorded Date Recorded By Document 04/12/18 14:56 [email or web address] 04/12/18 15:00 04/12/18 14:56 Wound Center Nurse 2 [Procedure/Treatment] # 2- RT SCAPULA -Time 14:58 -Correct Patient Yes -Correct Side, Site, Position Yes -Correct Procedure Yes -Procedure Performed Yes -Type of Procedure Debridement -Clinical Debridement Subcutaneous -Post Debridement Size (cm) - Length 0.5 -Post Debridement Size (cm) - Width 0.6 -Post Debridement Size (cm) - Depth 0.4 -Total Square Cm 0.30 -Wound/Ulcer Outcome Not Healed -Ulcer Cleansing Not Cleansed -Foul Odor after Cleansing No -Bioengineered Tissue No -Bleeding Controlled with Pressure -Offloading No -Treatment Response Procedure Tolerated Well #1 left lumbar back non healing post surgical -Time 14:59 -Correct Patient Yes -Correct Side, Site, Position Yes -Correct Procedure Yes -Procedure Performed Yes -Type of Procedure Debridement -Clinical Debridement Subcutaneous -Post Debridement Size (cm) - Length 2.3 -Post Debridement Size (cm) - Width 1.2 -Post Debridement Size (cm) - Depth 0.3 -Total Square Cm 2.76 -Wound/Ulcer Outcome Not Healed -Ulcer Cleansing Not Cleansed -Foul Odor after Cleansing No -Bioengineered Tissue No -Bleeding Controlled with Pressure -Offloading No -Treatment Response Procedure Tolerated Well [See Physician Procedure note for Specifics] Pain Scale: 0-10 Numeric [Pain] -Is Patient Pain Free? Yes Neurological: Neuro grossly intact Psych/Mental Status: Normal Affect, Appropriate, Alert and oriented to time, place, person, mood and affect Debridement Note Post-Debridement Measurements/Treatment WC - Nurse 2 - General Ulcer CM Notes Start: 03/22/18 13:32 Freq: Status: Active Protocol: Activity Type Activity Date Activity User E-Sign Co-Sign Detail Recorded Client Recorded Date Recorded By Document 03/22/18 14:25 TM [email or web address] 03/22/18 14:46 TM Document 03/26/18 10:02 JS [email or web address] 03/26/18 10:14 JS Document 04/05/18 15:12 CS [id number] 04/05/18 15:15 CS Document 04/12/18 14:56 CS [id number] 04/12/18 15:00 CS 03/22/18 03/26/18 04/05/18 14:25 10:02 15:12 Wound Center Nurse 2 # 2- RT SCAPULA -Time 15:15 -Correct Patient Yes -Correct Side, Site, Position Yes -Correct Procedure Yes -Procedure Performed Yes -Type of Procedure Debridement -Clinical Debridement Subcutaneous -Post Debridement Size (cm) - Length 0.6 -Post Debridement Size (cm) - Width 0.7 -Post Debridement Size (cm) - Depth 0.5 -Total Square Cm 0.42 -Wound/Ulcer Outcome Not Healed -Ulcer Cleansing Not Cleansed -Foul Odor after Cleansing No -Bioengineered Tissue No -Bleeding Controlled with Pressure -Offloading No -Treatment Response Procedure Tolerated Well #1 left lumbar back non healing post surgical -Time 14:34 10:13 15:12 -Correct Patient Yes Yes Yes -Correct Side, Site, Position Yes Yes Yes -Correct Procedure Yes Yes Yes -Procedure Performed Yes Yes Yes -Type of Procedure Debridement Debridement Debridement -Clinical Debridement Subcutaneous Subcutaneous Subcutaneous -Post Debridement Size (cm) - Length 1.6 2.0 2 -Post Debridement Size (cm) - Width 1.3 1.2 1.2 -Post Debridement Size (cm) - Depth 0.5 0.3 0.3 -Total Square Cm 2.08 2.40 2.4 -Wound/Ulcer Outcome Not Healed Healed- Not Healed Epithelialized -Ulcer Cleansing Rinsed/ Rinsed/ Not Cleansed Irrigated with Irrigated with Saline Saline -Foul Odor after Cleansing No No No -Bioengineered Tissue No No No -Topical Lidocaine (%) 5 -Injectable Lidocaine w/ Epi (%) 1 -Injectable Lidocaine w/ Epi (mls) 4 -Bleeding Controlled with Pressure NA NA Silver Nitrate -Other circular underming 0.5cm -Offloading No No -Treatment Response Procedure Procedure Procedure Tolerated Well Tolerated Well Tolerated Well Pain Scale: 0-10 Numeric Is Patient Pain Free? Yes Yes Yes 04/12/18 14:56 Wound Center Nurse 2 # 2- RT SCAPULA -Time 14:58 -Correct Patient Yes -Correct Side, Site, Position Yes -Correct Procedure Yes -Procedure Performed Yes -Type of Procedure Debridement -Clinical Debridement Subcutaneous -Post Debridement Size (cm) - Length 0.5 -Post Debridement Size (cm) - Width 0.6 -Post Debridement Size (cm) - Depth 0.4 -Total Square Cm 0.30 -Wound/Ulcer Outcome Not Healed -Ulcer Cleansing Not Cleansed -Foul Odor after Cleansing No -Bioengineered Tissue No -Bleeding Controlled with Pressure -Offloading No -Treatment Response Procedure Tolerated Well #1 left lumbar back non healing post surgical -Time 14:59 -Correct Patient Yes -Correct Side, Site, Position Yes -Correct Procedure Yes -Procedure Performed Yes -Type of Procedure Debridement -Clinical Debridement Subcutaneous -Post Debridement Size (cm) - Length 2.3 -Post Debridement Size (cm) - Width 1.2 -Post Debridement Size (cm) - Depth 0.3 -Total Square Cm 2.76 -Wound/Ulcer Outcome Not Healed -Ulcer Cleansing Not Cleansed -Foul Odor after Cleansing No -Bioengineered Tissue No -Topical Lidocaine (%) -Injectable Lidocaine w/ Epi (%) -Injectable Lidocaine w/ Epi (mls) -Bleeding Controlled with Pressure -Other -Offloading No -Treatment Response Procedure Tolerated Well Pain Scale: 0-10 Numeric Is Patient Pain Free? Yes Wound debrided: Wound left lower back Laterality: Left Type of Debridement: Excisional debridement Anesthesia Used: 5% Lidocaine Gel Depth: in the subcutaneous layer Percentage of wound debrided: 100 Instrument Used: 7mm curette Tissue Removed: Slough and devitalized tissue Severity: Fat Layer Exposed Bleeding Controlled with: Pressure Patient continues to have undermining from 5 to 6:00 - Additional Wound Wound debrided: Wound right upper back Laterality: Right Type of Debridement: Excisional debridement Anesthesia Used: 5% Lidocaine Gel Depth: in the subcutaneous layer Percentage of wound debrided: 100 Instrument Used: 5mm curette Tissue Removed: Circular undermining 0.4, slough and devitalized tissue removed Severity: Fat Layer Exposed Amount of bleeding with debridement: Mild Bleeding Controlled with: Pressure Patient tolerated procedure: Patient tolerated procedure well Assessment/Plan Active Problems (Last Reviewed 04/03/18 @ 13:04 by Ryan Gandhi, DO) Nonhealing surgical wound (Acute) x 2 s/p incision and drainage sebaceous cyst on left and right back Type 2 diabetes mellitus (Acute) Sebaceous cyst (Acute) Hypertension (Chronic) Assessment: Nonhealing post surgical wound status post I&D sebaceous cyst Plan: The patient was seen and examined at the wound center today and was updated on the plan of care. A subcutaneous debridement was performed today. The patient tolerated the procedure well. We will continue the SNAP VAC today on the left lower back wound and Saroj to the right upper back wound. Wound cultures were collected last week and were negative. Baseline bloodwork reviewed from PCP and an A1c was elevated at 6.6 and is being managed by PCP. Patient educated on the importance of diet on wound healing and instructed to increase protein and vitamin C intake. Discussed importance of improved glycemic control. Patient verbalized understanding. Patient will follow up at wound healing center in 1 week or sooner if needed. He has been instructed that if he has issues with the VAC then he should do daily Saroj dressing changes. Due to patient's delayed wound healing and treatment failure of greater than 4 weeks standard wound care, will apply for the use of epicord or another skin substitute for the wound to the left lower back. This note was generated with [employer] dictation software. It may contain incorrect words, spelling, and punctuation that were not noted in checking the note before signing. Code Visit 111xxx-113xx: [id number] Pooja subq tissue 20 sq cm/<
--- NOTE | 2018-04-13 08:21 | PN.PCM_ITS ---
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 The patient has had ongoing moderate amount of serosanguineous drainage and nonhealing of the area since. The patient presents today and states the area is still draining bloody drainage. His does dressing changes to the site daily with saroj, which she is currently out of. He has been doing the Saroj for approximately 4 weeks. He denies any other treatments and denies any other aggravating or relieving factors. A recent wound culture was taken last week and was negative. He denies fever chills or other signs of infection. The patient otherwise denies any fever, chills, nausea, vomiting, shortness of breath, chest pain or pressure, palpitations, orthopnea, lower extremity edema, syncope or presyncopal episodes. Progress of Wound: Left back Wound is stable, size slightly worsened this week, tolerating snap vac well, clean and pink without signs of infection at this time, right upper back wound size improving without signs of infection either, large amount of slough present in wound bed. Patient was recently seen by his PCP and diagnosed with type 2 DM. - Physical Exam Vital Signs Temp Pulse Resp BP 98 F 89 18 134/84 H 04/12/18 14:46 04/12/18 14:46 04/12/18 14:46 04/12/18 14:46 General: Alert, Oriented x3, Cooperative, No apparent distress HEENT: Atraumatic Oral: Moist Mucosa Lungs: Clear to auscultation Cardiovascular: Regular rate Abdomen: Bowel Sounds Present, Soft, Non Tender, Obese Extremities: No clubbing, No cyanosis, No edema Skin: Ulcer/ Wound - Wound to left lower back and right upper back with adherent slough, no signs of obvious infection at this time, no purulent drainage, some serosanguineous drainage still present. Wound Measurements and Assessment WC - Nurse 1 - General Ulcer Measurement Start: 03/22/18 13:32 Freq: Status: Active Protocol: Activity Type Activity Date Activity User E-Sign Co-Sign Detail Recorded Client Recorded Date Recorded By Document 04/12/18 14:46 [facility] [id number] 04/12/18 14:48 BM 04/12/18 14:46 Wound Center Nurse 1 [Ulcer Assessment] # 2- RT SCAPULA -Combined with other wound No -Current Size (cm) - Length 0.4 -Current Size (cm) - Width 0.5 -Current Size (cm) - Depth 0.3 -Total Square Cm 0.20 -Photo Taken No -Epithelialization Small 1-33% -Tunneling No -Undermining/Tunneling No -Circular Undermining No -Exudate Amt Small (1-33%) -Exudate Type Sanguineous -Wound Margin Distinct, Outline Attached -Granulation Amt Large (67-100%) -Granulation Quality Red -Slough/Fibrin No -Necrosis Amt None Present (0 %) -Texture (Mayra-wound Skin Appearance) Scarring Rash -Moisture (Mayra-wound Skin Appearance Assessed ) -Color (Mayra-wound Skin Appearance) Assessed Erythema -Temperature (Mayra-wound Skin No Abnormality Appearance) (Pt Warm) -Tenderness on Palpation (Mayra-wound No Skin Appearance) -Ulcer Cleansing Rinsed/ Irrigated with Saline -Foul Odor after Cleansing No -Anesthetic Used 5% Lidocaine Gel #1 left lumbar back non healing post surgical -Combined with other wound No -Current Size (cm) - Length 2.3 -Current Size (cm) - Width 1.3 -Current Size (cm) - Depth 0.4 -Total Square Cm 2.99 -Photo Taken No -Epithelialization None Present -Tunneling No -Undermining/Tunneling No -Circular Undermining No -Exudate Amt Medium (34-66%) -Exudate Type Serosanguineous -Wound Margin Distinct, Outline Attached -Granulation Amt Large (67-100%) -Granulation Quality Red -Slough/Fibrin No -Necrosis Amt None Present (0 %) -Texture (Mayra-wound Skin Appearance) Scarring -Moisture (Mayra-wound Skin Appearance Assessed ) -Color (Mayra-wound Skin Appearance) Assessed -Temperature (Mayra-wound Skin No Abnormality Appearance) (Pt Warm) -Tenderness on Palpation (Mayra-wound No Skin Appearance) -Ulcer Cleansing Rinsed/ Irrigated with Saline -Foul Odor after Cleansing No -Anesthetic Used 5% Lidocaine Gel WC - Nurse 2 - General Ulcer CM Notes Start: 03/22/18 13:32 Freq: Status: Active Protocol: Activity Type Activity Date Activity User E-Sign Co-Sign Detail Recorded Client Recorded Date Recorded By Document 04/12/18 14:56 [id number] 04/12/18 15:00 04/12/18 14:56 Wound Center Nurse 2 [Procedure/Treatment] # 2- RT SCAPULA -Time 14:58 -Correct Patient Yes -Correct Side, Site, Position Yes -Correct Procedure Yes -Procedure Performed Yes -Type of Procedure Debridement -Clinical Debridement Subcutaneous -Post Debridement Size (cm) - Length 0.5 -Post Debridement Size (cm) - Width 0.6 -Post Debridement Size (cm) - Depth 0.4 -Total Square Cm 0.30 -Wound/Ulcer Outcome Not Healed -Ulcer Cleansing Not Cleansed -Foul Odor after Cleansing No -Bioengineered Tissue No -Bleeding Controlled with Pressure -Offloading No -Treatment Response Procedure Tolerated Well #1 left lumbar back non healing post surgical -Time 14:59 -Correct Patient Yes -Correct Side, Site, Position Yes -Correct Procedure Yes -Procedure Performed Yes -Type of Procedure Debridement -Clinical Debridement Subcutaneous -Post Debridement Size (cm) - Length 2.3 -Post Debridement Size (cm) - Width 1.2 -Post Debridement Size (cm) - Depth 0.3 -Total Square Cm 2.76 -Wound/Ulcer Outcome Not Healed -Ulcer Cleansing Not Cleansed -Foul Odor after Cleansing No -Bioengineered Tissue No -Bleeding Controlled with Pressure -Offloading No -Treatment Response Procedure Tolerated Well [See Physician Procedure note for Specifics] Pain Scale: 0-10 Numeric [Pain] -Is Patient Pain Free? Yes Neurological: Neuro grossly intact Psych/Mental Status: Normal Affect, Appropriate, Alert and oriented to time, place, person, mood and affect Debridement Note Post-Debridement Measurements/Treatment WC - Nurse 2 - General Ulcer CM Notes Start: 03/22/18 13:32 Freq: Status: Active Protocol: Activity Type Activity Date Activity User E-Sign Co-Sign Detail Recorded Client Recorded Date Recorded By Document 03/22/18 14:25 TM [id number] 03/22/18 14:46 TM Document 03/26/18 10:02 JS [id number] 03/26/18 10:14 JS Document 04/05/18 15:12 CS [id number] 04/05/18 15:15 CS Document 04/12/18 14:56 CS [id number] 04/12/18 15:00 CS 03/22/18 03/26/18 04/05/18 14:25 10:02 15:12 Wound Center Nurse 2 # 2- RT SCAPULA -Time 15:15 -Correct Patient Yes -Correct Side, Site, Position Yes -Correct Procedure Yes -Procedure Performed Yes -Type of Procedure Debridement -Clinical Debridement Subcutaneous -Post Debridement Size (cm) - Length 0.6 -Post Debridement Size (cm) - Width 0.7 -Post Debridement Size (cm) - Depth 0.5 -Total Square Cm 0.42 -Wound/Ulcer Outcome Not Healed -Ulcer Cleansing Not Cleansed -Foul Odor after Cleansing No -Bioengineered Tissue No -Bleeding Controlled with Pressure -Offloading No -Treatment Response Procedure Tolerated Well #1 left lumbar back non healing post surgical -Time 14:34 10:13 15:12 -Correct Patient Yes Yes Yes -Correct Side, Site, Position Yes Yes Yes -Correct Procedure Yes Yes Yes -Procedure Performed Yes Yes Yes -Type of Procedure Debridement Debridement Debridement -Clinical Debridement Subcutaneous Subcutaneous Subcutaneous -Post Debridement Size (cm) - Length 1.6 2.0 2 -Post Debridement Size (cm) - Width 1.3 1.2 1.2 -Post Debridement Size (cm) - Depth 0.5 0.3 0.3 -Total Square Cm 2.08 2.40 2.4 -Wound/Ulcer Outcome Not Healed Healed- Not Healed Epithelialized -Ulcer Cleansing Rinsed/ Rinsed/ Not Cleansed Irrigated with Irrigated with Saline Saline -Foul Odor after Cleansing No No No -Bioengineered Tissue No No No -Topical Lidocaine (%) 5 -Injectable Lidocaine w/ Epi (%) 1 -Injectable Lidocaine w/ Epi (mls) 4 -Bleeding Controlled with Pressure NA NA Silver Nitrate -Other circular underming 0.5cm -Offloading No No -Treatment Response Procedure Procedure Procedure Tolerated Well Tolerated Well Tolerated Well Pain Scale: 0-10 Numeric Is Patient Pain Free? Yes Yes Yes 04/12/18 14:56 Wound Center Nurse 2 # 2- RT SCAPULA -Time 14:58 -Correct Patient Yes -Correct Side, Site, Position Yes -Correct Procedure Yes -Procedure Performed Yes -Type of Procedure Debridement -Clinical Debridement Subcutaneous -Post Debridement Size (cm) - Length 0.5 -Post Debridement Size (cm) - Width 0.6 -Post Debridement Size (cm) - Depth 0.4 -Total Square Cm 0.30 -Wound/Ulcer Outcome Not Healed -Ulcer Cleansing Not Cleansed -Foul Odor after Cleansing No -Bioengineered Tissue No -Bleeding Controlled with Pressure -Offloading No -Treatment Response Procedure Tolerated Well #1 left lumbar back non healing post surgical -Time 14:59 -Correct Patient Yes -Correct Side, Site, Position Yes -Correct Procedure Yes -Procedure Performed Yes -Type of Procedure Debridement -Clinical Debridement Subcutaneous -Post Debridement Size (cm) - Length 2.3 -Post Debridement Size (cm) - Width 1.2 -Post Debridement Size (cm) - Depth 0.3 -Total Square Cm 2.76 -Wound/Ulcer Outcome Not Healed -Ulcer Cleansing Not Cleansed -Foul Odor after Cleansing No -Bioengineered Tissue No -Topical Lidocaine (%) -Injectable Lidocaine w/ Epi (%) -Injectable Lidocaine w/ Epi (mls) -Bleeding Controlled with Pressure -Other -Offloading No -Treatment Response Procedure Tolerated Well Pain Scale: 0-10 Numeric Is Patient Pain Free? Yes Wound debrided: Wound left lower back Laterality: Left Type of Debridement: Excisional debridement Anesthesia Used: 5% Lidocaine Gel Depth: in the subcutaneous layer Percentage of wound debrided: 100 Instrument Used: 7mm curette Tissue Removed: Slough and devitalized tissue Severity: Fat Layer Exposed Bleeding Controlled with: Pressure Patient continues to have undermining from 5 to 6:00 - Additional Wound Wound debrided: Wound right upper back Laterality: Right Type of Debridement: Excisional debridement Anesthesia Used: 5% Lidocaine Gel Depth: in the subcutaneous layer Percentage of wound debrided: 100 Instrument Used: 5mm curette Tissue Removed: Circular undermining 0.4, slough and devitalized tissue removed Severity: Fat Layer Exposed Amount of bleeding with debridement: Mild Bleeding Controlled with: Pressure Patient tolerated procedure: Patient tolerated procedure well Assessment/Plan Active Problems (Last Reviewed 04/03/18 @ 13:04 by Ryan Gandhi, DO) Nonhealing surgical wound (Acute) x 2 s/p incision and drainage sebaceous cyst on left and right back Type 2 diabetes mellitus (Acute) Sebaceous cyst (Acute) Hypertension (Chronic) Assessment: Nonhealing post surgical wound status post I&D sebaceous cyst Plan: The patient was seen and examined at the wound center today and was updated on the plan of care. A subcutaneous debridement was performed today. The patient tolerated the procedure well. We will continue the SNAP VAC today on the left lower back wound and Saroj to the right upper back wound. Wound cultures were collected last week and were negative. Baseline bloodwork reviewed from PCP and an A1c was elevated at 6.6 and is being managed by PCP. Patient educated on the importance of diet on wound healing and instructed to increase protein and vitamin C intake. Discussed importance of improved glycemic control. Patient verbalized understanding. Patient will follow up at wound healing center in 1 week or sooner if needed. He has been instructed that if he has issues with the VAC then he should do daily Saroj dressing changes. Due to patient's delayed wound healing and treatment failure of greater than 4 weeks standard wound care, will apply for the use of epicord or another skin substitute for the wound to the left lower back. This note was generated with [employer] dictation software. It may contain incorrect words, spelling, and punctuation that were not noted in checking the note before signing. Code Visit 111xxx-113xx: [id number] Pooja subq tissue 20 sq cm/<
== END 2018-04-16 23:59 ==
LOC: WC 14:45
PROVIDERS: Family Provider Family Medicine; PCP Family Medicine; Visit Provider Nurse Practitioner Family
DX: T81.89XA Other complications of procedures, not elsewhere classified, initial encounter (principal); Y83.8 Other surgical procedures as the cause of abnormal reaction of the patient, or of later complication, without mention of misadventure at the time of the procedure; I10 Essential (primary) hypertension; L72.3 Sebaceous cyst; E11.9 Type 2 diabetes mellitus without complications
CPT/HCPCS: 11042; 83036; 85025; 97607; 99212; 99213; G0463

== ENCOUNTER 2018-05-10 16:00 | Outpatient (RCR) | payer OTHER, SELFPAY ==
[2018-04-26 13:59] VITALS: BMI 33.0
== END 2018-05-17 23:59 ==
LOC: DC 16:00
PROVIDERS: Family Provider Family Medicine; PCP Family Medicine; Referring Provider Internal Medicine; Visit Provider Internal Medicine
DX: E11.9 Type 2 diabetes mellitus without complications (principal); Z71.3 Dietary counseling and surveillance
CPT/HCPCS: 97802; G0108

== ENCOUNTER 2018-05-17 13:00 | Outpatient (RCR) | payer OTHER, SELFPAY ==
[2018-04-17 01:28] VITALS: BP 134/84; PULSE 89; RESP 18; TEMP 36.6
[2018-04-19 15:06] VITALS: BP 121/74; PULSE 85; RESP 18; TEMP 36.6; BMI 33.0
--- NOTE | 2018-04-20 08:13 | PN.PCM_ITS ---
(1) Nonhealing surgical wound Status: Acute Current Visit: Yes Code(s): T81.89XA - Other complications of procedures, not elsewhere classified, initial encounter Comment: x 2 s/p incision and drainage sebaceous cyst on left and right back (2) Sebaceous cyst Status: Acute Current Visit: Yes Code(s): L72.3 - Sebaceous cyst (3) Type 2 diabetes mellitus Status: Acute Current Visit: Yes Qualifiers: Code(s): E11.9 - Type 2 diabetes mellitus without complications (4) Hypertension Status: Chronic Current Visit: No Code(s): I10 - Essential (primary) hypertension Type of Wound Date of Service: 04/19/18 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: Nonhealing wound on left lumbar back status post sebaceous cyst I&D on 02/14/2018 and right thoracic back I and D of sebaceous cyst on 04/03/18 by pcp History of Wound: February 14, 2018 the patient had an i and d of a sebaceous cyst by his PCP. The patient has had ongoing moderate amount of serosanguineous drainage and nonhealing of the area since. The patient presents today and states the area is still draining bloody drainage. His does dressing changes to the site daily with saroj, which she is currently out of. He has been doing the Saroj for approximately 4 weeks. He denies any other treatments and denies any other aggravating or relieving factors. A recent wound culture was taken last week and was negative. He denies fever chills or other signs of infection. The patient otherwise denies any fever, chills, nausea, vomiting, shortness of breath, chest pain or pressure, palpitations, orthopnea, lower extremity edema, syncope or presyncopal episodes. Progress of Wound: Left back Wound is stable, size slightly improved this week, tolerating snap vac well, clean and pink without signs of infection at this time, right upper back wound size improving without signs of infection either, large amount of slough present in wound bed. Patient was recently seen by his PCP and diagnosed with type 2 DM. - Physical Exam Vital Signs Temp Pulse Resp BP 97.9 F 85 18 121/74 H 04/19/18 15:06 04/19/18 15:06 04/19/18 15:06 04/19/18 15:06 General: Alert, Oriented x3, Cooperative, No apparent distress HEENT: Atraumatic Oral: Moist Mucosa Lungs: Clear to auscultation Cardiovascular: Regular rate Abdomen: Soft, Non Tender, Obese Extremities: No clubbing, No cyanosis, No edema Skin: Ulcer/ Wound - wound to left back with adhernat slough, still a pocket from 5-7 pm, no purulent drainage or signs of infection at this time, wound to right upper back with adherhant slough, no signs of infection Wound Measurements and Assessment WC - Nurse 1 - General Ulcer Measurement Start: 04/19/18 15:06 Freq: Status: Active Protocol: Activity Type Activity Date Activity User E-Sign Co-Sign Detail Recorded Client Recorded Date Recorded By Document 04/19/18 15:06 DL [id number] 04/19/18 15:18 DL 04/19/18 15:06 Wound Center Nurse 1 [Ulcer Assessment] # 2- RT SCAPULA -Current Size (cm) - Length 0.4 -Current Size (cm) - Width 0.4 -Current Size (cm) - Depth 0.2 -Total Square Cm 0.16 -Photo Taken No -Exudate Amt Small (1-33%) -Exudate Type Serosanguineous -Wound Margin Flat & Intact -Granulation Amt Large (67-100%) -Granulation Quality Red -Necrosis Amt Small (1-33%) -Necrotic Tissue Type Adherent Slough -Structure Exposed N/A -Texture (Mayra-wound Skin Appearance) Scarring -Moisture (Mayra-wound Skin Appearance No Abnormality ) -Color (Mayra-wound Skin Appearance) No Abnormality -Temperature (Mayra-wound Skin No Abnormality Appearance) (Pt Warm) -Tenderness on Palpation (Mayra-wound No Skin Appearance) -Ulcer Cleansing Wound Cleanser -Foul Odor after Cleansing No -Anesthetic Used 5% Lidocaine Gel #1 left lumbar back non healing post surgical -Current Size (cm) - Length 2.2 -Current Size (cm) - Width 1.3 -Current Size (cm) - Depth 0.2 -Total Square Cm 2.86 -Photo Taken No -Undermining/Tunneling Starts (O' 4 clock) -Undermining/Tunneling Ends (O'clock) 7 -Maximum Distance (cm) 0.3 -Exudate Amt Small (1-33%) -Exudate Type Serosanguineous -Wound Margin Thickened & Rolled Under -Granulation Amt Large (67-100%) -Granulation Quality Red -Necrosis Amt Small (1-33%) -Necrotic Tissue Type Adherent Slough -Structure Exposed N/A -Texture (Mayra-wound Skin Appearance) Scarring -Moisture (Mayra-wound Skin Appearance Dry/Scaly ) -Color (Mayra-wound Skin Appearance) No Abnormality -Temperature (Mayra-wound Skin No Abnormality Appearance) (Pt Warm) -Tenderness on Palpation (Mayra-wound No Skin Appearance) -Ulcer Cleansing Rinsed/ Irrigated with Saline -Foul Odor after Cleansing No -Anesthetic Used 5% Lidocaine Gel WC - Nurse 2 - General Ulcer CM Notes Start: 04/19/18 15:06 Freq: Status: Active Protocol: Activity Type Activity Date Activity User E-Sign Co-Sign Detail Recorded Client Recorded Date Recorded By Document 04/19/18 15:27 [id number] 04/19/18 15:28 04/19/18 15:27 Wound Center Nurse 2 [Procedure/Treatment] # 2- RT SCAPULA -Time 15:27 -Correct Patient Yes -Correct Side, Site, Position Yes -Correct Procedure Yes -Procedure Performed Yes -Type of Procedure Debridement -Clinical Debridement Subcutaneous -Post Debridement Size (cm) - Length 0.4 -Post Debridement Size (cm) - Width 0.4 -Post Debridement Size (cm) - Depth 0.2 -Total Square Cm 0.16 -Wound/Ulcer Outcome Not Healed -Ulcer Cleansing Not Cleansed -Foul Odor after Cleansing No -Bioengineered Tissue No -Bleeding Controlled with Pressure -Offloading No -Treatment Response Procedure Tolerated Well #1 left lumbar back non healing post surgical -Time 15:27 -Correct Patient Yes -Correct Side, Site, Position Yes -Correct Procedure Yes -Procedure Performed Yes -Type of Procedure Debridement -Clinical Debridement Subcutaneous -Post Debridement Size (cm) - Length 2.1 -Post Debridement Size (cm) - Width 1.5 -Post Debridement Size (cm) - Depth 0.2 -Total Square Cm 3.15 -Wound/Ulcer Outcome Not Healed -Ulcer Cleansing Not Cleansed -Foul Odor after Cleansing No -Bioengineered Tissue No -Bleeding Controlled with Pressure -Offloading No -Treatment Response Procedure Tolerated Well [See Physician Procedure note for Specifics] Pain Scale: 0-10 Numeric [Pain] -Is Patient Pain Free? Yes Neurological: Neuro grossly intact Psych/Mental Status: Normal Affect, Appropriate, Alert and oriented to time, place, person, mood and affect Debridement Note Post-Debridement Measurements/Treatment WC - Nurse 2 - General Ulcer CM Notes Start: 04/19/18 15:06 Freq: Status: Active Protocol: Activity Type Activity Date Activity User E-Sign Co-Sign Detail Recorded Client Recorded Date Recorded By Document 04/19/18 15:27 [id number] 04/19/18 15:28 04/19/18 15:27 Wound Center Nurse 2 # 2- RT SCAPULA -Time 15:27 -Correct Patient Yes -Correct Side, Site, Position Yes -Correct Procedure Yes -Procedure Performed Yes -Type of Procedure Debridement -Clinical Debridement Subcutaneous -Post Debridement Size (cm) - Length 0.4 -Post Debridement Size (cm) - Width 0.4 -Post Debridement Size (cm) - Depth 0.2 -Total Square Cm 0.16 -Wound/Ulcer Outcome Not Healed -Ulcer Cleansing Not Cleansed -Foul Odor after Cleansing No -Bioengineered Tissue No -Bleeding Controlled with Pressure -Offloading No -Treatment Response Procedure Tolerated Well #1 left lumbar back non healing post surgical -Time 15:27 -Correct Patient Yes -Correct Side, Site, Position Yes -Correct Procedure Yes -Procedure Performed Yes -Type of Procedure Debridement -Clinical Debridement Subcutaneous -Post Debridement Size (cm) - Length 2.1 -Post Debridement Size (cm) - Width 1.5 -Post Debridement Size (cm) - Depth 0.2 -Total Square Cm 3.15 -Wound/Ulcer Outcome Not Healed -Ulcer Cleansing Not Cleansed -Foul Odor after Cleansing No -Bioengineered Tissue No -Bleeding Controlled with Pressure -Offloading No -Treatment Response Procedure Tolerated Well Pain Scale: 0-10 Numeric Is Patient Pain Free? Yes Wound debrided: left back wound s/p i and d Laterality: Left Type of Debridement: Excisional debridement Anesthesia Used: 5% Lidocaine Gel Depth: in the subcutaneous layer Percentage of wound debrided: 100 Instrument Used: 7mm curette Tissue Removed: slough and devitalized tissue Severity: Fat Layer Exposed Amount of bleeding with debridement: Mild Bleeding Controlled with: Pressure Patient tolerated procedure well - Additional Wound Wound debrided: right back wound s/p i and d Laterality: Right Type of Debridement: Excisional debridement Anesthesia Used: 5% Lidocaine Gel Depth: in the subcutaneous layer Percentage of wound debrided: 100 Instrument Used: 7mm curette Tissue Removed: slough and devitalized tissue Severity: Fat Layer Exposed Amount of bleeding with debridement: Mild Bleeding Controlled with: Pressure Patient tolerated procedure: Patient tolerated procedure well Assessment/Plan Active Problems (Last Reviewed 04/03/18 @ 13:04 by Ryan Gandhi DO) Nonhealing surgical wound (Acute) x 2 s/p incision and drainage sebaceous cyst on left and right back Type 2 diabetes mellitus (Acute) Sebaceous cyst (Acute) Assessment: Nonhealing post surgical wound status post I&D sebaceous cyst Plan: The patient was seen and examined at the wound center today and was updated on the plan of care. A subcutaneous debridement was performed today. The patient tolerated the procedure well. We will continue the SNAP VAC today on the left lower back wound and Saroj to the right upper back wound. Wound cultures were collected last week and were negative. Baseline bloodwork reviewed from PCP and an A1c was elevated at 6.6 and is being managed by PCP. Patient educated on the importance of diet on wound healing and instructed to increase protein and vitamin C intake. Discussed importance of improved glycemic control. Patient verbalized understanding. Patient will follow up at wound healing center in 1 week or sooner if needed. He has been instructed that if he has issues with the VAC then he should do daily Saroj dressing changes. Due to patient's delayed wound healing and treatment failure of greater than 4 weeks standard wound care, will apply for the use of epicord or another skin s ubstitute for the wound to the left lower back. This note was generated with [employer] dictation software. It may contain incorrect words, spelling, and punctuation that were not noted in checking the note before signing. Code Visit 111xxx-113xx: 33271 Pooja subq tissue 20 sq cm/<
[2018-04-26 13:59] VITALS: BP 121/73; PULSE 89; RESP 16; TEMP 36.2; BMI 33.0
--- NOTE | 2018-04-26 16:44 | PCM.WC.PN ---
(1) Nonhealing surgical wound Status: Acute Current Visit: Yes Code(s): T81.89XA - Other complications of procedures, not elsewhere classified, initial encounter Comment: x 2 s/p incision and drainage sebaceous cyst on left and right back (2) Sebaceous cyst Status: Acute Current Visit: Yes Code(s): L72.3 - Sebaceous cyst (3) Type 2 diabetes mellitus Status: Acute Current Visit: Yes Qualifiers: Code(s): E11.9 - Type 2 diabetes mellitus without complications (4) Hypertension Status: Chronic Current Visit: No Code(s): I10 - Essential (primary) hypertension Type of Wound Date of Service: 04/26/18 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: Nonhealing wound on left lumbar back status post sebaceous cyst I&D on 02/14/2018 and right thoracic back I and D of sebaceous cyst on 04/03/18 by pcp History of Wound: February 14, 2018 the patient had an i and d of a sebaceous cyst by his PCP. The patient has had ongoing moderate amount of serosanguineous drainage and nonhealing of the area since. The patient presents today and states the area is still draining bloody drainage. His does dressing changes to the site daily with saroj, which she is currently out of. He has been doing the Saroj for approximately 4 weeks. He denies any other treatments and denies any other aggravating or relieving factors. A recent wound culture was taken last week and was negative. He denies fever chills or other signs of infection. The patient otherwise denies any fever, chills, nausea, vomiting, shortness of breath, chest pain or pressure, palpitations, orthopnea, lower extremity edema, syncope or presyncopal episodes. Progress of Wound: Left back Wound is stable, size slightly worsened this week,tolerated vac well with moderate serosanguinous drainage, clean and pink without signs of infection at this time, right upper back wound size stable without signs of infection either, large amount of slough present in wound bed. Patient was recently seen by his PCP and diagnosed with type 2 DM. - Physical Exam Vital Signs Temp Pulse Resp BP 97.1 F L 89 16 121/73 H 04/26/18 13:59 04/26/18 13:59 04/26/18 13:59 04/26/18 13:59 General: Alert, Oriented x3, Cooperative, No apparent distress HEENT: Atraumatic Lungs: Clear to auscultation Cardiovascular: Regular rate Abdomen: Soft, Non Tender Extremities: No clubbing, No cyanosis, No edema Skin: Ulcer/ Wound - Wound to left lower back with adherent slough to wound bed, site still undermines by 0.5 cm and is painful from 5 PM to 7 PM. No obvious signs of infection however at this time. Wound to right upper back with adherent slough, no signs of obvious infection at this time. Wound Measurements and Assessment WC - Nurse 1 - General Ulcer Measurement Start: 04/19/18 15:06 Freq: Status: Active Protocol: Activity Type Activity Date Activity User E-Sign Co-Sign Detail Recorded Client Recorded Date Recorded By Document 04/26/18 13:59 MD [id number] 04/26/18 14:05 MD 04/26/18 13:59 Wound Center Nurse 1 [Ulcer Assessment] # 2- RT SCAPULA -Combined with other wound No -Current Size (cm) - Length 0.5 -Current Size (cm) - Width 0.5 -Current Size (cm) - Depth 0.3 -Total Square Cm 0.25 -Photo Taken No -Epithelialization None Present -Tunneling No -Undermining/Tunneling No -Circular Undermining No -Exudate Amt Small -Exudate Type Serosanguineous -Wound Margin Distinct, Outline Attached -Granulation Amt Large (67-100%) -Granulation Quality Red -Slough/Fibrin No -Necrosis Amt None Present (0 %) -Texture (Mayra-wound Skin Appearance) Assessed Scarring -Moisture (Mayra-wound Skin Appearance Assessed ) Dry/Scaly -Color (Mayra-wound Skin Appearance) Assessed -Temperature (Mayra-wound Skin No Abnormality Appearance) (Pt Warm) -Tenderness on Palpation (Mayra-wound Yes Skin Appearance) -Ulcer Cleansing Rinsed/ Irrigated with Saline -Foul Odor after Cleansing No -Anesthetic Used 5% Lidocaine Gel #1 left lumbar back non healing post surgical -Combined with other wound No -Current Size (cm) - Length 2.4 -Current Size (cm) - Width 1.5 -Current Size (cm) - Depth 0.2 -Total Square Cm 3.60 -Photo Taken No -Epithelialization None Present -Tunneling No -Undermining/Tunneling Yes -Undermining/Tunneling Starts (O' 4 clock) -Undermining/Tunneling Ends (O'clock) 8 -Maximum Distance (cm) 0.5 -Circular Undermining No -Exudate Amt Medium -Exudate Type Sanguineous -Wound Margin Thickened -Granulation Amt Large (67-100%) -Granulation Quality Red -Slough/Fibrin No -Necrosis Amt None Present (0 %) -Texture (Mayra-wound Skin Appearance) Scarring -Moisture (Mayra-wound Skin Appearance Dry/Scaly ) -Color (Mayra-wound Skin Appearance) Assessed -Temperature (Mayra-wound Skin No Abnormality Appearance) (Pt Warm) -Tenderness on Palpation (Mayra-wound Yes Skin Appearance) -Ulcer Cleansing Rinsed/ Irrigated with Saline -Foul Odor after Cleansing No -Anesthetic Used 5% Lidocaine Gel WC - Nurse 2 - General Ulcer CM Notes Start: 04/19/18 15:06 Freq: Status: Active Protocol: Activity Type Activity Date Activity User E-Sign Co-Sign Detail Recorded Client Recorded Date Recorded By Document 04/26/18 14:43 DV [id number] 04/26/18 15:00 DV 04/26/18 14:43 Wound Center Nurse 2 [Procedure/Treatment] # 2- RT SCAPULA -Time 14:45 -Correct Patient Yes -Correct Side, Site, Position Yes -Correct Procedure Yes -Procedure Performed Yes -Type of Procedure Debridement -Clinical Debridement Subcutaneous -Post Debridement Size (cm) - Length 0.5 -Post Debridement Size (cm) - Width 0.5 -Post Debridement Size (cm) - Depth 0.3 -Total Square Cm 0.25 -Wound/Ulcer Outcome Not Healed -Ulcer Cleansing Rinsed/ Irrigated with Saline -Foul Odor after Cleansing No -Bioengineered Tissue No -Bleeding Controlled with Pressure -Offloading No -Treatment Response Procedure Tolerated Well #1 left lumbar back non healing post surgical -Time 14:46 -Correct Patient Yes -Correct Side, Site, Position Yes -Correct Procedure Yes -Procedure Performed Yes -Type of Procedure Debridement -Clinical Debridement Subcutaneous -Post Debridement Size (cm) - Length 2.3 -Post Debridement Size (cm) - Width 1.5 -Post Debridement Size (cm) - Depth 0.4 -Total Square Cm 3.45 -Wound/Ulcer Outcome Not Healed -Ulcer Cleansing Rinsed/ Irrigated with Saline -Foul Odor after Cleansing No -Bioengineered Tissue No -Bleeding Controlled with Pressure -Offloading No -Treatment Response Procedure Tolerated Well [See Physician Procedure note for Specifics] Pain Scale: 0-10 Numeric [Pain] -Is Patient Pain Free? Yes Musculoskeletal: No Muscle Wasting Neurological: Neuro grossly intact Psych/Mental Status: Normal Affect, Appropriate, Alert and oriented to time, place, person, mood and affect Debridement Note Post-Debridement Measurements/Treatment WC - Nurse 2 - General Ulcer CM Notes Start: 04/19/18 15:06 Freq: Status: Active Protocol: Activity Type Activity Date Activity User E-Sign Co-Sign Detail Recorded Client Recorded Date Recorded By Document 04/19/18 15:27 CS [id number] 04/19/18 15:28 CS Document 04/26/18 14:43 DV [id number] 04/26/18 15:00 DV 04/19/18 04/26/18 15:27 14:43 Wound Center Nurse 2 # 2- RT SCAPULA -Time 15:27 14:45 -Correct Patient Yes Yes -Correct Side, Site, Position Yes Yes -Correct Procedure Yes Yes -Procedure Performed Yes Yes -Type of Procedure Debridement Debridement -Clinical Debridement Subcutaneous Subcutaneous -Post Debridement Size (cm) - Length 0.4 0.5 -Post Debridement Size (cm) - Width 0.4 0.5 -Post Debridement Size (cm) - Depth 0.2 0.3 -Total Square Cm 0.16 0.25 -Wound/Ulcer Outcome Not Healed Not Healed -Ulcer Cleansing Not Cleansed Rinsed/ Irrigated with Saline -Foul Odor after Cleansing No No -Bioengineered Tissue No No -Bleeding Controlled with Pressure Pressure -Offloading No No -Treatment Response Procedure Procedure Tolerated Well Tolerated Well #1 left lumbar back non healing post surgical -Time 15:27 14:46 -Correct Patient Yes Yes -Correct Side, Site, Position Yes Yes -Correct Procedure Yes Yes -Procedure Performed Yes Yes -Type of Procedure Debridement Debridement -Clinical Debridement Subcutaneous Subcutaneous -Post Debridement Size (cm) - Length 2.1 2.3 -Post Debridement Size (cm) - Width 1.5 1.5 -Post Debridement Size (cm) - Depth 0.2 0.4 -Total Square Cm 3.15 3.45 -Wound/Ulcer Outcome Not Healed Not Healed -Ulcer Cleansing Not Cleansed Rinsed/ Irrigated with Saline -Foul Odor after Cleansing No No -Bioengineered Tissue No No -Bleeding Controlled with Pressure Pressure -Offloading No No -Treatment Response Procedure Procedure Tolerated Well Tolerated Well Pain Scale: 0-10 Numeric Is Patient Pain Free? Yes Yes Wound debrided: Left lower back wound status post incision and drainage sebaceous cyst Laterality: Left Type of Debridement: Excisional debridement Anesthesia Used: 5% Lidocaine Gel Depth: in the subcutaneous layer Percentage of wound debrided: 100 Instrument Used: 5mm curette Tissue Removed: Slough and devitalized tissue Severity: Fat Layer Exposed Amount of bleeding with debridement: Mild Bleeding Controlled with: Pressure Patient tolerated procedure well - Additional Wound Wound debrided: Right upper back wound status post I&D sebaceous cyst Laterality: Right Type of Debridement: Excisional debridement Anesthesia Used: 5% Lidocaine Gel Depth: in the subcutaneous layer Percentage of wound debrided: 100 Instrument Used: 5mm curette Tissue Removed: Slough and devitalized tissue Severity: Fat Layer Exposed Amount of bleeding with debridement: Mild Bleeding Controlled with: Pressure Patient tolerated procedure: Patient tolerated procedure well Assessment/Plan Active Problems (Last Reviewed 04/26/18 @ 13:21 by Liliane Santos) Nonhealing surgical wound (Acute) x 2 s/p incision and drainage sebaceous cyst on left and right back Type 2 diabetes mellitus (Acute) Sebaceous cyst (Acute) Assessment: Nonhealing post surgical wound status post I&D sebaceous cyst Plan: The patient was seen and examined at the wound center today and was updated on the plan of care. A subcutaneous debridement was performed today. The patient tolerated the procedure well. We will placed on hold the SNAP VAC today and take a break from the silver containing wound products and utilize Aquacel extra to both wounds. Wound cultures were collected prior and were negative, however given patient's increase in pain, wound cultures were collected today to the left lower back wound. Baseline bloodwork reviewed from PCP and an A1c was elevated at 6.6 and is being managed by PCP. Patient educated on the importance of diet on wound healing and instructed to increase protein and vitamin C intake. Discussed importance of improved glycemic control. Patient verbalized understanding. Patient will follow up at wound healing center in 1 week or sooner if needed. Due to patient's delayed wound healing and treatment failure of greater than 4 weeks standard wound care, will apply for the use of epicord or another skin substitute for the wound to the left lower back. This note was generated with [employer] software. It may contain incorrect words, spelling, and punctuation that were not noted in checking the note before signing. Code Visit 111xxx-113xx: 20599 Pooja subq tissue 20 sq cm/<
--- NOTE | 2018-04-26 16:49 | PN.PCM_ITS ---
(1) Nonhealing surgical wound Status: Acute Current Visit: Yes Code(s): T81.89XA - Other complications of procedures, not elsewhere classified, initial encounter Comment: x 2 s/p incision and drainage sebaceous cyst on left and right back (2) Sebaceous cyst Status: Acute Current Visit: Yes Code(s): L72.3 - Sebaceous cyst (3) Type 2 diabetes mellitus Status: Acute Current Visit: Yes Qualifiers: Code(s): E11.9 - Type 2 diabetes mellitus without complications (4) Hypertension Status: Chronic Current Visit: No Code(s): I10 - Essential (primary) hypertension Type of Wound Date of Service: 04/26/18 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: Nonhealing wound on left lumbar back status post sebaceous cyst I&D on 02/14/2018 and right thoracic back I and D of sebaceous cyst on 04/03/18 by pcp History of Wound: February 14, 2018 the patient had an i and d of a sebaceous cyst by his PCP. The patient has had ongoing moderate amount of serosanguineous drainage and nonhealing of the area since. The patient presents today and states the area is still draining bloody drainage. His does dressing changes to the site daily with saroj, which she is currently out of. He has been doing the Saroj for approximately 4 weeks. He denies any other treatments and denies any other aggravating or relieving factors. A recent wound culture was taken last week and was negative. He denies fever chills or other signs of infection. The patient otherwise denies any fever, chills, nausea, vomiting, shortness of breath, chest pain or pressure, palpitations, orthopnea, lower extremity edema, syncope or presyncopal episodes. Progress of Wound: Left back Wound is stable, size slightly worsened this week,tolerated vac well with moderate serosanguinous drainage, clean and pink without signs of infection at this time, right upper back wound size stable without signs of infection either, large amount of slough present in wound bed. Patient was recently seen by his PCP and diagnosed with type 2 DM. - Physical Exam Vital Signs Temp Pulse Resp BP 97.1 F L 89 16 121/73 H 04/26/18 13:59 04/26/18 13:59 04/26/18 13:59 04/26/18 13:59 General: Alert, Oriented x3, Cooperative, No apparent distress HEENT: Atraumatic Lungs: Clear to auscultation Cardiovascular: Regular rate Abdomen: Soft, Non Tender Extremities: No clubbing, No cyanosis, No edema Skin: Ulcer/ Wound - Wound to left lower back with adherent slough to wound bed, site still undermines by 0.5 cm and is painful from 5 PM to 7 PM. No obvious signs of infection however at this time. Wound to right upper back with adherent slough, no signs of obvious infection at this time. Wound Measurements and Assessment WC - Nurse 1 - General Ulcer Measurement Start: 04/19/18 15:06 Freq: Status: Active Protocol: Activity Type Activity Date Activity User E-Sign Co-Sign Detail Recorded Client Recorded Date Recorded By Document 04/26/18 13:59 [place] [id number] 04/26/18 14:05 [place] 04/26/18 13:59 Wound Center Nurse 1 [Ulcer Assessment] # 2- RT SCAPULA -Combined with other wound No -Current Size (cm) - Length 0.5 -Current Size (cm) - Width 0.5 -Current Size (cm) - Depth 0.3 -Total Square Cm 0.25 -Photo Taken No -Epithelialization None Present -Tunneling No -Undermining/Tunneling No -Circular Undermining No -Exudate Amt Small -Exudate Type Serosanguineous -Wound Margin Distinct, Outline Attached -Granulation Amt Large (67-100%) -Granulation Quality Red -Slough/Fibrin No -Necrosis Amt None Present (0 %) -Texture (Mayra-wound Skin Appearance) Assessed Scarring -Moisture (Mayra-wound Skin Appearance Assessed ) Dry/Scaly -Color (Mayra-wound Skin Appearance) Assessed -Temperature (Mayra-wound Skin No Abnormality Appearance) (Pt Warm) -Tenderness on Palpation (Mayra-wound Yes Skin Appearance) -Ulcer Cleansing Rinsed/ Irrigated with Saline -Foul Odor after Cleansing No -Anesthetic Used 5% Lidocaine Gel #1 left lumbar back non healing post surgical -Combined with other wound No -Current Size (cm) - Length 2.4 -Current Size (cm) - Width 1.5 -Current Size (cm) - Depth 0.2 -Total Square Cm 3.60 -Photo Taken No -Epithelialization None Present -Tunneling No -Undermining/Tunneling Yes -Undermining/Tunneling Starts (O' 4 clock) -Undermining/Tunneling Ends (O'clock) 8 -Maximum Distance (cm) 0.5 -Circular Undermining No -Exudate Amt Medium -Exudate Type Sanguineous -Wound Margin Thickened -Granulation Amt Large (67-100%) -Granulation Quality Red -Slough/Fibrin No -Necrosis Amt None Present (0 %) -Texture (Mayra-wound Skin Appearance) Scarring -Moisture (Mayra-wound Skin Appearance Dry/Scaly ) -Color (Mayra-wound Skin Appearance) Assessed -Temperature (Mayra-wound Skin No Abnormality Appearance) (Pt Warm) -Tenderness on Palpation (Mayra-wound Yes Skin Appearance) -Ulcer Cleansing Rinsed/ Irrigated with Saline -Foul Odor after Cleansing No -Anesthetic Used 5% Lidocaine Gel WC - Nurse 2 - General Ulcer CM Notes Start: 04/19/18 15:06 Freq: Status: Active Protocol: Activity Type Activity Date Activity User E-Sign Co-Sign Detail Recorded Client Recorded Date Recorded By Document 04/26/18 14:43 DV [id number] 04/26/18 15:00 DV 04/26/18 14:43 Wound Center Nurse 2 [Procedure/Treatment] # 2- RT SCAPULA -Time 14:45 -Correct Patient Yes -Correct Side, Site, Position Yes -Correct Procedure Yes -Procedure Performed Yes -Type of Procedure Debridement -Clinical Debridement Subcutaneous -Post Debridement Size (cm) - Length 0.5 -Post Debridement Size (cm) - Width 0.5 -Post Debridement Size (cm) - Depth 0.3 -Total Square Cm 0.25 -Wound/Ulcer Outcome Not Healed -Ulcer Cleansing Rinsed/ Irrigated with Saline -Foul Odor after Cleansing No -Bioengineered Tissue No -Bleeding Controlled with Pressure -Offloading No -Treatment Response Procedure Tolerated Well #1 left lumbar back non healing post surgical -Time 14:46 -Correct Patient Yes -Correct Side, Site, Position Yes -Correct Procedure Yes -Procedure Performed Yes -Type of Procedure Debridement -Clinical Debridement Subcutaneous -Post Debridement Size (cm) - Length 2.3 -Post Debridement Size (cm) - Width 1.5 -Post Debridement Size (cm) - Depth 0.4 -Total Square Cm 3.45 -Wound/Ulcer Outcome Not Healed -Ulcer Cleansing Rinsed/ Irrigated with Saline -Foul Odor after Cleansing No -Bioengineered Tissue No -Bleeding Controlled with Pressure -Offloading No -Treatment Response Procedure Tolerated Well [See Physician Procedure note for Specifics] Pain Scale: 0-10 Numeric [Pain] -Is Patient Pain Free? Yes Musculoskeletal: No Muscle Wasting Neurological: Neuro grossly intact Psych/Mental Status: Normal Affect, Appropriate, Alert and oriented to time, place, person, mood and affect Debridement Note Post-Debridement Measurements/Treatment WC - Nurse 2 - General Ulcer CM Notes Start: 04/19/18 15:06 Freq: Status: Active Protocol: Activity Type Activity Date Activity User E-Sign Co-Sign Detail Recorded Client Recorded Date Recorded By Document 04/19/18 15:27 CS [id number] 04/19/18 15:28 CS Document 04/26/18 14:43 DV [id number] 04/26/18 15:00 DV 04/19/18 04/26/18 15:27 14:43 Wound Center Nurse 2 # 2- RT SCAPULA -Time 15:27 14:45 -Correct Patient Yes Yes -Correct Side, Site, Position Yes Yes -Correct Procedure Yes Yes -Procedure Performed Yes Yes -Type of Procedure Debridement Debridement -Clinical Debridement Subcutaneous Subcutaneous -Post Debridement Size (cm) - Length 0.4 0.5 -Post Debridement Size (cm) - Width 0.4 0.5 -Post Debridement Size (cm) - Depth 0.2 0.3 -Total Square Cm 0.16 0.25 -Wound/Ulcer Outcome Not Healed Not Healed -Ulcer Cleansing Not Cleansed Rinsed/ Irrigated with Saline -Foul Odor after Cleansing No No -Bioengineered Tissue No No -Bleeding Controlled with Pressure Pressure -Offloading No No -Treatment Response Procedure Procedure Tolerated Well Tolerated Well #1 left lumbar back non healing post surgical -Time 15:27 14:46 -Correct Patient Yes Yes -Correct Side, Site, Position Yes Yes -Correct Procedure Yes Yes -Procedure Performed Yes Yes -Type of Procedure Debridement Debridement -Clinical Debridement Subcutaneous Subcutaneous -Post Debridement Size (cm) - Length 2.1 2.3 -Post Debridement Size (cm) - Width 1.5 1.5 -Post Debridement Size (cm) - Depth 0.2 0.4 -Total Square Cm 3.15 3.45 -Wound/Ulcer Outcome Not Healed Not Healed -Ulcer Cleansing Not Cleansed Rinsed/ Irrigated with Saline -Foul Odor after Cleansing No No -Bioengineered Tissue No No -Bleeding Controlled with Pressure Pressure -Offloading No No -Treatment Response Procedure Procedure Tolerated Well Tolerated Well Pain Scale: 0-10 Numeric Is Patient Pain Free? Yes Yes Wound debrided: Left lower back wound status post incision and drainage sebaceous cyst Laterality: Left Type of Debridement: Excisional debridement Anesthesia Used: 5% Lidocaine Gel Depth: in the subcutaneous layer Percentage of wound debrided: 100 Instrument Used: 5mm curette Tissue Removed: Slough and devitalized tissue Severity: Fat Layer Exposed Amount of bleeding with debridement: Mild Bleeding Controlled with: Pressure Patient tolerated procedure well - Additional Wound Wound debrided: Right upper back wound status post I&D sebaceous cyst Laterality: Right Type of Debridement: Excisional debridement Anesthesia Used: 5% Lidocaine Gel Depth: in the subcutaneous layer Percentage of wound debrided: 100 Instrument Used: 5mm curette Tissue Removed: Slough and devitalized tissue Severity: Fat Layer Exposed Amount of bleeding with debridement: Mild Bleeding Controlled with: Pressure Patient tolerated procedure: Patient tolerated procedure well Assessment/Plan Active Problems (Last Reviewed 04/26/18 @ 13:21 by Liliane Santos) Nonhealing surgical wound (Acute) x 2 s/p incision and drainage sebaceous cyst on left and right back Type 2 diabetes mellitus (Acute) Sebaceous cyst (Acute) Assessment: Nonhealing post surgical wound status post I&D sebaceous cyst Plan: The patient was seen and examined at the wound center today and was updated on the plan of care. A subcutaneous debridement was performed today. The patient tolerated the procedure well. We will placed on hold the SNAP VAC today and take a break from the silver containing wound products and utilize Aquacel extra to both wounds. Wound cultures were collected prior and were negative, however given patient's increase in pain, wound cultures were collected today to the left lower back wound. Baseline bloodwork reviewed from PCP and an A1c was elevated at 6.6 and is being managed by PCP. Patient educated on the importance of diet on wound healing and instructed to increase protein and vitamin C intake. Discussed importance of improved glycemic control. Patient verbalized understanding. Patient will follow up at wound healing center in 1 week or sooner if needed. Due to patient's delayed wound healing and treatment failure of greater than 4 weeks standard wound care, will apply for the use of epicord or another skin substitute for the wound to the left lower back. This note was generated with [employer] software. It may contain incorrect words, s pelling, and punctuation that were not noted in checking the note before signing. Code Visit 111xxx-113xx: 03698 Pooja subq tissue 20 sq cm/<
[2018-05-03 14:11] VITALS: BP 124/62; PULSE 97; RESP 18; TEMP 37; BMI 33.0
--- NOTE | 2018-05-03 15:21 | PCM.WC.PN ---
(1) Nonhealing surgical wound Status: Acute Current Visit: Yes Code(s): T81.89XA - Other complications of procedures, not elsewhere classified, initial encounter Comment: x 2 s/p incision and drainage sebaceous cyst on left and right back (2) Sebaceous cyst Status: Acute Current Visit: Yes Code(s): L72.3 - Sebaceous cyst (3) Type 2 diabetes mellitus Status: Acute Current Visit: Yes Qualifiers: Code(s): E11.9 - Type 2 diabetes mellitus without complications (4) Hypertension Status: Chronic Current Visit: No Code(s): I10 - Essential (primary) hypertension Type of Wound Date of Service: 05/03/18 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: Nonhealing wound on left lumbar back status post sebaceous cyst I&D on 02/14/2018 and right thoracic back I and D of sebaceous cyst on 04/03/18 by pcp History of Wound: February 14, 2018 the patient had an i and d of a sebaceous cyst by his PCP. The patient has had ongoing moderate amount of serosanguineous drainage and nonhealing of the area since. The patient presents today and states the area is still draining bloody drainage. His does dressing changes to the site daily with saroj, which she is currently out of. He has been doing the Saroj for approximately 4 weeks. He denies any other treatments and denies any other aggravating or relieving factors. A recent wound culture was taken last week and was negative. He denies fever chills or other signs of infection. The patient otherwise denies any fever, chills, nausea, vomiting, shortness of breath, chest pain or pressure, palpitations, orthopnea, lower extremity edema, syncope or presyncopal episodes. Progress of Wound: Left back Wound is stable, still having moderate serosanguinous drainage, clean and pink without signs of infection at this time, right upper back wound size stable without signs of infection either, large amount of slough present in wound bed. Patient was recently seen by his PCP and diagnosed with type 2 DM. - Physical Exam Vital Signs Temp Pulse Resp BP 98.6 F 97 18 124/62 H 05/03/18 14:11 05/03/18 14:11 05/03/18 14:11 05/03/18 14:11 General: Alert, Oriented x3, Cooperative, No apparent distress HEENT: Atraumatic, PERRLA Lungs: Clear to auscultation, Normal air movement Cardiovascular: Regular rate, Regular Rhythm Abdomen: Soft, Non Tender, Obese Extremities: No clubbing, No cyanosis, No edema Skin: Ulcer/ Wound - Wounds to left lower back and right upper back with adherent slough to wound bed, some undermining present from 5:00 to 9:00 on left lower back wound Wound Measurements and Assessment WC - Nurse 1 - General Ulcer Measurement Start: 04/19/18 15:06 Freq: Status: Active Protocol: Activity Type Activity Date Activity User E-Sign Co-Sign Detail Recorded Client Recorded Date Recorded By Document 05/03/18 14:11 RB [id number] 05/03/18 14:22 RB 05/03/18 14:11 Wound Center Nurse 1 [Ulcer Assessment] # 2- RT SCAPULA -Combined with other wound No -Current Size (cm) - Length 0.5 -Current Size (cm) - Width 0.7 -Current Size (cm) - Depth 0.4 -Total Square Cm 0.35 -Tunneling No -Undermining/Tunneling No -Circular Undermining No -Exudate Amt Small -Exudate Type Serosanguineous -Wound Margin Distinct, Outline Attached -Granulation Amt Large (67-100%) -Granulation Quality [place] Red -Slough/Fibrin Yes -Necrosis Amt Small (1-33%) -Necrotic Tissue Type Adherent Slough -Structure Exposed N/A -Texture (Mayra-wound Skin Appearance) Assessed -Moisture (Mayra-wound Skin Appearance Assessed ) -Color (Mayra-wound Skin Appearance) Assessed -Temperature (Mayra-wound Skin No Abnormality Appearance) (Pt Warm) -Tenderness on Palpation (Mayra-wound No Skin Appearance) -Ulcer Cleansing Rinsed/ Irrigated with Saline -Foul Odor after Cleansing No -Anesthetic Used 5% Lidocaine Gel #1 left lumbar back non healing post surgical -Combined with other wound No -Current Size (cm) - Length 2.4 -Current Size (cm) - Width 1.5 -Current Size (cm) - Depth 0.2 -Total Square Cm 3.60 -Tunneling No -Undermining/Tunneling No -Circular Undermining No -Exudate Amt Small -Exudate Type Serosanguineous -Wound Margin Distinct, Outline Attached -Granulation Amt Large (67-100%) -Granulation Quality [place] Red -Slough/Fibrin Yes -Necrosis Amt Small (1-33%) -Necrotic Tissue Type Adherent Slough -Structure Exposed N/A -Texture (Mayra-wound Skin Appearance) Assessed -Moisture (Mayra-wound Skin Appearance Assessed ) -Color (Mayra-wound Skin Appearance) Assessed -Temperature (Mayra-wound Skin No Abnormality Appearance) (Pt Warm) -Tenderness on Palpation (Mayra-wound No Skin Appearance) -Ulcer Cleansing Rinsed/ Irrigated with Saline -Foul Odor after Cleansing No -Anesthetic Used 5% Lidocaine Gel WC - Nurse 2 - General Ulcer CM Notes Start: 04/19/18 15:06 Freq: Status: Active Protocol: Activity Type Activity Date Activity User E-Sign Co-Sign Detail Recorded Client Recorded Date Recorded By Document 05/03/18 14:44 [id number] 05/03/18 14:47 CS 05/03/18 14:44 Wound Center Nurse 2 [Procedure/Treatment] # 2- RT SCAPULA -Time 14:44 -Correct Patient Yes -Correct Side, Site, Position Yes -Correct Procedure Yes -Procedure Performed Yes -Type of Procedure Debridement -Clinical Debridement Subcutaneous -Post Debridement Size (cm) - Length 0.7 -Post Debridement Size (cm) - Width 0.7 -Post Debridement Size (cm) - Depth 0.4 -Total Square Cm 0.49 -Wound/Ulcer Outcome Not Healed -Ulcer Cleansing Not Cleansed -Foul Odor after Cleansing No -Bioengineered Tissue No -Bleeding Controlled with Pressure -Offloading No -Treatment Response Procedure Tolerated Well #1 left lumbar back non healing post surgical -Time 14:44 -Correct Patient Yes -Correct Side, Site, Position Yes -Correct Procedure Yes -Procedure Performed Yes -Type of Procedure Debridement -Clinical Debridement Subcutaneous -Post Debridement Size (cm) - Length 2.1 -Post Debridement Size (cm) - Width 1.6 -Post Debridement Size (cm) - Depth 0.3 -Total Square Cm 3.36 -Wound/Ulcer Outcome Not Healed -Ulcer Cleansing Not Cleansed -Foul Odor after Cleansing No -Bioengineered Tissue No -Bleeding Controlled with Pressure -Offloading No -Treatment Response Procedure Tolerated Well [See Physician Procedure note for Specifics] Pain Scale: 0-10 Numeric [Pain] -Is Patient Pain Free? Yes Musculoskeletal: No Tenderness to Palpation of Joints or Extremities Neurological: Neuro grossly intact Psych/Mental Status: Normal Affect, Appropriate, Alert and oriented to time, place, person, mood and affect Debridement Note Post-Debridement Measurements/Treatment WC - Nurse 2 - General Ulcer CM Notes Start: 04/19/18 15:06 Freq: Status: Active Protocol: Activity Type Activity Date Activity User E-Sign Co-Sign Detail Recorded Client Recorded Date Recorded By Document 04/19/18 15:27 [id number] 04/19/18 15:28 CS Document 04/26/18 14:43 DV [id number] 04/26/18 15:00 DV Document 05/03/18 14:44 CS [id number] 05/03/18 14:47 CS 04/19/18 04/26/18 05/03/18 15:27 14:43 14:44 Wound Center Nurse 2 # 2- RT SCAPULA -Time 15:27 14:45 14:44 -Correct Patient Yes Yes Yes -Correct Side, Site, Position Yes Yes Yes -Correct Procedure Yes Yes Yes -Procedure Performed Yes Yes Yes -Type of Procedure Debridement Debridement Debridement -Clinical Debridement Subcutaneous Subcutaneous Subcutaneous -Post Debridement Size (cm) - Length 0.4 0.5 0.7 -Post Debridement Size (cm) - Width 0.4 0.5 0.7 -Post Debridement Size (cm) - Depth 0.2 0.3 0.4 -Total Square Cm 0.16 0.25 0.49 -Wound/Ulcer Outcome Not Healed Not Healed Not Healed -Ulcer Cleansing Not Cleansed Rinsed/ Not Cleansed Irrigated with Saline -Foul Odor after Cleansing No No No -Bioengineered Tissue No No No -Bleeding Controlled with Pressure Pressure Pressure -Offloading No No No -Treatment Response Procedure Procedure Procedure Tolerated Well Tolerated Well Tolerated Well #1 left lumbar back non healing post surgical -Time 15:27 14:46 14:44 -Correct Patient Yes Yes Yes -Correct Side, Site, Position Yes Yes Yes -Correct Procedure Yes Yes Yes -Procedure Performed Yes Yes Yes -Type of Procedure Debridement Debridement Debridement -Clinical Debridement Subcutaneous Subcutaneous Subcutaneous -Post Debridement Size (cm) - Length 2.1 2.3 2.1 -Post Debridement Size (cm) - Width 1.5 1.5 1.6 -Post Debridement Size (cm) - Depth 0.2 0.4 0.3 -Total Square Cm 3.15 3.45 3.36 -Wound/Ulcer Outcome Not Healed Not Healed Not Healed -Ulcer Cleansing Not Cleansed Rinsed/ Not Cleansed Irrigated with Saline -Foul Odor after Cleansing No No No -Bioengineered Tissue No No No -Bleeding Controlled with Pressure Pressure Pressure -Offloading No No No -Treatment Response Procedure Procedure Procedure Tolerated Well Tolerated Well Tolerated Well Pain Scale: 0-10 Numeric Is Patient Pain Free? Yes Yes Yes Wound debrided: Wound to left lower back status post I&D sebaceous cyst Laterality: Left Type of Debridement: Excisional debridement Anesthesia Used: 5% Lidocaine Gel Depth: in the subcutaneous layer Percentage of wound debrided: 100 Instrument Used: 5mm curette Tissue Removed: Slough and devitalized tissue Severity: Fat Layer Exposed Amount of bleeding with debridement: Mild Bleeding Controlled with: Pressure Patient tolerated procedure well - Additional Wound Wound debrided: Wound right upper back status post I&D sebaceous cyst Laterality: Right Type of Debridement: Excisional debridement Anesthesia Used: 5% Lidocaine Gel Depth: in the subcutaneous layer Percentage of wound debrided: 100 Instrument Used: 3mm curette Tissue Removed: Slough and devitalized tissue Severity: Fat Layer Exposed Amount of bleeding with debridement: Mild Bleeding Controlled with: Pressure Patient tolerated procedure: Patient tolerated procedure well Assessment/Plan Active Problems (Last Reviewed 04/26/18 @ 13:21 by Liliane Santos) Nonhealing surgical wound (Acute) x 2 s/p incision and drainage sebaceous cyst on left and right back Type 2 diabetes mellitus (Acute) Sebaceous cyst (Acute) Assessment: Nonhealing post surgical wound status post I&D sebaceous cyst Plan: The patient was seen and examined at the wound center today and was updated on the plan of care. A subcutaneous debridement was performed today. The patient tolerated the procedure well. We will resume the SNAP VAC today and Aquacel extra to right upper back wound. Wound cultures were collected and showed staph epidermidis and patient was placed on a course of doxycycline which she is tolerating well. Baseline bloodwork reviewed from PCP and an A1c was elevated at 6.6 and is being managed by PCP. Patient educated on the importance of diet on wound healing and instructed to increase protein and vitamin C intake. Discussed importance of improved glycemic control. Patient verbalized understanding. Patient will follow up at wound healing center in 1 week or sooner if needed. Due to patient's delayed wound healing and treatment failure of greater than 4 weeks standard wound care, will apply for the use of epicord or another skin substitute for the wound to the left lower back. This note was generated with [employer] dictation software. It may contain incorrect words, spelling, and punctuation that were not noted in checking the note before signing. Code Visit 111xxx-113xx: 41586 Pooja subq tissue 20 sq cm/<
--- NOTE | 2018-05-04 14:25 | PN.PCM_ITS ---
(1) Nonhealing surgical wound Status: Acute Current Visit: Yes Code(s): T81.89XA - Other complications of procedures, not elsewhere classified, initial encounter Comment: x 2 s/p incision and drainage sebaceous cyst on left and right back (2) Sebaceous cyst Status: Acute Current Visit: Yes Code(s): L72.3 - Sebaceous cyst (3) Type 2 diabetes mellitus Status: Acute Current Visit: Yes Qualifiers: Code(s): E11.9 - Type 2 diabetes mellitus without complications (4) Hypertension Status: Chronic Current Visit: No Code(s): I10 - Essential (primary) hypertension Type of Wound Date of Service: 05/03/18 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: Nonhealing wound on left lumbar back status post sebaceous cyst I&D on 02/14/2018 and right thoracic back I and D of sebaceous cyst on 04/03/18 by pcp History of Wound: February 14, 2018 the patient had an i and d of a sebaceous cyst by his PCP. The patient has had ongoing moderate amount of serosanguineous drainage and nonhealing of the area since. The patient presents today and states the area is still draining bloody drainage. His does dressing changes to the site daily with saroj, which she is currently out of. He has been doing the Saroj for approximately 4 weeks. He denies any other treatments and denies any other aggravating or relieving factors. A recent wound culture was taken last week and was negative. He denies fever chills or other signs of infection. The patient otherwise denies any fever, chills, nausea, vomiting, shortness of breath, chest pain or pressure, palpitations, orthopnea, lower extremity edema, syncope or presyncopal episodes. Progress of Wound: Left back Wound is stable, still having moderate serosanguinous drainage, clean and pink without signs of infection at this time, right upper back wound size stable without signs of infection either, large amount of slough present in wound bed. Patient was recently seen by his PCP and diagnosed with type 2 DM. - Physical Exam Vital Signs Temp Pulse Resp BP 98.6 F 97 18 124/62 H 05/03/18 14:11 05/03/18 14:11 05/03/18 14:11 05/03/18 14:11 General: Alert, Oriented x3, Cooperative, No apparent distress HEENT: Atraumatic, PERRLA Lungs: Clear to auscultation, Normal air movement Cardiovascular: Regular rate, Regular Rhythm Abdomen: Soft, Non Tender, Obese Extremities: No clubbing, No cyanosis, No edema Skin: Ulcer/ Wound - Wounds to left lower back and right upper back with adherent slough to wound bed, some undermining present from 5:00 to 9:00 on left lower back wound Wound Measurements and Assessment WC - Nurse 1 - General Ulcer Measurement Start: 04/19/18 15:06 Freq: Status: Active Protocol: Activity Type Activity Date Activity User E-Sign Co-Sign Detail Recorded Client Recorded Date Recorded By Document 05/03/18 14:11 RB [id number] 05/03/18 14:22 RB 05/03/18 14:11 Wound Center Nurse 1 [Ulcer Assessment] # 2- RT SCAPULA -Combined with other wound No -Current Size (cm) - Length 0.5 -Current Size (cm) - Width 0.7 -Current Size (cm) - Depth 0.4 -Total Square Cm 0.35 -Tunneling No -Undermining/Tunneling No -Circular Undermining No -Exudate Amt Small -Exudate Type Serosanguineous -Wound Margin Distinct, Outline Attached -Granulation Amt Large (67-100%) -Granulation Quality [place] Red -Slough/Fibrin Yes -Necrosis Amt Small (1-33%) -Necrotic Tissue Type Adherent Slough -Structure Exposed N/A -Texture (Mayra-wound Skin Appearance) Assessed -Moisture (Mayra-wound Skin Appearance Assessed ) -Color (Mayra-wound Skin Appearance) Assessed -Temperature (Mayra-wound Skin No Abnormality Appearance) (Pt Warm) -Tenderness on Palpation (Mayra-wound No Skin Appearance) -Ulcer Cleansing Rinsed/ Irrigated with Saline -Foul Odor after Cleansing No -Anesthetic Used 5% Lidocaine Gel #1 left lumbar back non healing post surgical -Combined with other wound No -Current Size (cm) - Length 2.4 -Current Size (cm) - Width 1.5 -Current Size (cm) - Depth 0.2 -Total Square Cm 3.60 -Tunneling No -Undermining/Tunneling No -Circular Undermining No -Exudate Amt Small -Exudate Type Serosanguineous -Wound Margin Distinct, Outline Attached -Granulation Amt Large (67-100%) -Granulation Quality [place] Red -Slough/Fibrin Yes -Necrosis Amt Small (1-33%) -Necrotic Tissue Type Adherent Slough -Structure Exposed N/A -Texture (Mayra-wound Skin Appearance) Assessed -Moisture (Mayra-wound Skin Appearance Assessed ) -Color (Mayra-wound Skin Appearance) Assessed -Temperature (Mayra-wound Skin No Abnormality Appearance) (Pt Warm) -Tenderness on Palpation (Mayra-wound No Skin Appearance) -Ulcer Cleansing Rinsed/ Irrigated with Saline -Foul Odor after Cleansing No -Anesthetic Used 5% Lidocaine Gel WC - Nurse 2 - General Ulcer CM Notes Start: 04/19/18 15:06 Freq: Status: Active Protocol: Activity Type Activity Date Activity User E-Sign Co-Sign Detail Recorded Client Recorded Date Recorded By Document 05/03/18 14:44 [id number] 05/03/18 14:47 CS 05/03/18 14:44 Wound Center Nurse 2 [Procedure/Treatment] # 2- RT SCAPULA -Time 14:44 -Correct Patient Yes -Correct Side, Site, Position Yes -Correct Procedure Yes -Procedure Performed Yes -Type of Procedure Debridement -Clinical Debridement Subcutaneous -Post Debridement Size (cm) - Length 0.7 -Post Debridement Size (cm) - Width 0.7 -Post Debridement Size (cm) - Depth 0.4 -Total Square Cm 0.49 -Wound/Ulcer Outcome Not Healed -Ulcer Cleansing Not Cleansed -Foul Odor after Cleansing No -Bioengineered Tissue No -Bleeding Controlled with Pressure -Offloading No -Treatment Response Procedure Tolerated Well #1 left lumbar back non healing post surgical -Time 14:44 -Correct Patient Yes -Correct Side, Site, Position Yes -Correct Procedure Yes -Procedure Performed Yes -Type of Procedure Debridement -Clinical Debridement Subcutaneous -Post Debridement Size (cm) - Length 2.1 -Post Debridement Size (cm) - Width 1.6 -Post Debridement Size (cm) - Depth 0.3 -Total Square Cm 3.36 -Wound/Ulcer Outcome Not Healed -Ulcer Cleansing Not Cleansed -Foul Odor after Cleansing No -Bioengineered Tissue No -Bleeding Controlled with Pressure -Offloading No -Treatment Response Procedure Tolerated Well [See Physician Procedure note for Specifics] Pain Scale: 0-10 Numeric [Pain] -Is Patient Pain Free? Yes Musculoskeletal: No Tenderness to Palpation of Joints or Extremities Neurological: Neuro grossly intact Psych/Mental Status: Normal Affect, Appropriate, Alert and oriented to time, place, person, mood and affect Debridement Note Post-Debridement Measurements/Treatment WC - Nurse 2 - General Ulcer CM Notes Start: 04/19/18 15:06 Freq: Status: Active Protocol: Activity Type Activity Date Activity User E-Sign Co-Sign Detail Recorded Client Recorded Date Recorded By Document 04/19/18 15:27 [id number] 04/19/18 15:28 CS Document 04/26/18 14:43 DV [id number] 04/26/18 15:00 DV Document 05/03/18 14:44 CS [id number] 05/03/18 14:47 CS 04/19/18 04/26/18 05/03/18 15:27 14:43 14:44 Wound Center Nurse 2 # 2- RT SCAPULA -Time 15:27 14:45 14:44 -Correct Patient Yes Yes Yes -Correct Side, Site, Position Yes Yes Yes -Correct Procedure Yes Yes Yes -Procedure Performed Yes Yes Yes -Type of Procedure Debridement Debridement Debridement -Clinical Debridement Subcutaneous Subcutaneous Subcutaneous -Post Debridement Size (cm) - Length 0.4 0.5 0.7 -Post Debridement Size (cm) - Width 0.4 0.5 0.7 -Post Debridement Size (cm) - Depth 0.2 0.3 0.4 -Total Square Cm 0.16 0.25 0.49 -Wound/Ulcer Outcome Not Healed Not Healed Not Healed -Ulcer Cleansing Not Cleansed Rinsed/ Not Cleansed Irrigated with Saline -Foul Odor after Cleansing No No No -Bioengineered Tissue No No No -Bleeding Controlled with Pressure Pressure Pressure -Offloading No No No -Treatment Response Procedure Procedure Procedure Tolerated Well Tolerated Well Tolerated Well #1 left lumbar back non healing post surgical -Time 15:27 14:46 14:44 -Correct Patient Yes Yes Yes -Correct Side, Site, Position Yes Yes Yes -Correct Procedure Yes Yes Yes -Procedure Performed Yes Yes Yes -Type of Procedure Debridement Debridement Debridement -Clinical Debridement Subcutaneous Subcutaneous Subcutaneous -Post Debridement Size (cm) - Length 2.1 2.3 2.1 -Post Debridement Size (cm) - Width 1.5 1.5 1.6 -Post Debridement Size (cm) - Depth 0.2 0.4 0.3 -Total Square Cm 3.15 3.45 3.36 -Wound/Ulcer Outcome Not Healed Not Healed Not Healed -Ulcer Cleansing Not Cleansed Rinsed/ Not Cleansed Irrigated with Saline -Foul Odor after Cleansing No No No -Bioengineered Tissue No No No -Bleeding Controlled with Pressure Pressure Pressure -Offloading No No No -Treatment Response Procedure Procedure Procedure Tolerated Well Tolerated Well Tolerated Well Pain Scale: 0-10 Numeric Is Patient Pain Free? Yes Yes Yes Wound debrided: Wound to left lower back status post I&D sebaceous cyst Laterality: Left Type of Debridement: Excisional debridement Anesthesia Used: 5% Lidocaine Gel Depth: in the subcutaneous layer Percentage of wound debrided: 100 Instrument Used: 5mm curette Tissue Removed: Slough and devitalized tissue Severity: Fat Layer Exposed Amount of bleeding with debridement: Mild Bleeding Controlled with: Pressure Patient tolerated procedure well - Additional Wound Wound debrided: Wound right upper back status post I&D sebaceous cyst Laterality: Right Type of Debridement: Excisional debridement Anesthesia Used: 5% Lidocaine Gel Depth: in the subcutaneous layer Percentage of wound debrided: 100 Instrument Used: 3mm curette Tissue Removed: Slough and devitalized tissue Severity: Fat Layer Exposed Amount of bleeding with debridement: Mild Bleeding Controlled with: Pressure Patient tolerated procedure: Patient tolerated procedure well Assessment/Plan Active Problems (Last Reviewed 04/26/18 @ 13:21 by Liliane Santos) Nonhealing surgical wound (Acute) x 2 s/p incision and drainage sebaceous cyst on left and right back Type 2 diabetes mellitus (Acute) Sebaceous cyst (Acute) Assessment: Nonhealing post surgical wound status post I&D sebaceous cyst Plan: The patient was seen and examined at the wound center today and was updated on the plan of care. A subcutaneous debridement was performed today. The patient tolerated the procedure well. We will resume the SNAP VAC today and Aquacel extra to right upper back wound. Wound cultures were collected and showed staph epidermidis and patient was placed on a course of doxycycline which she is tolerating well. Baseline bloodwork reviewed from PCP and an A1c was elevated at 6.6 and is being managed by PCP. Patient educated on the importance of diet on wound healing and instructed to increase protein and vitamin C intake. Discussed importance of improved glycemic control. Patient verbalized understanding. Patient will follow up at wound healing center in 1 week or sooner if needed. Due to patient's delayed wound healing and treatment failure of greater than 4 weeks standard wound care, will apply for the use of epicord or another skin substitute for the wound to the left lower back. This note was generated with [employer] dictation software. It may contain incorrect words, spelling, and punctuation that were not noted in checking the note before signing. Code Visit 111xxx-113xx: 22596 Pooja subq tissue 20 sq cm/<
[2018-05-07 13:27] VITALS: BP 102/66; PULSE 81; RESP 16; TEMP 36.9; BMI 33.0
[2018-05-10 13:26] VITALS: BP 132/76; PULSE 87; RESP 18; TEMP 36.6; BMI 33.0
--- NOTE | 2018-05-10 20:31 | PCM.WC.PN ---
(1) Nonhealing surgical wound Status: Acute Current Visit: Yes Code(s): T81.89XA - Other complications of procedures, not elsewhere classified, initial encounter Comment: x 2 s/p incision and drainage sebaceous cyst on left and right back (2) Sebaceous cyst Status: Acute Current Visit: Yes Code(s): L72.3 - Sebaceous cyst (3) Type 2 diabetes mellitus Status: Acute Current Visit: Yes Qualifiers: Code(s): E11.9 - Type 2 diabetes mellitus without complications (4) Hypertension Status: Chronic Current Visit: No Code(s): I10 - Essential (primary) hypertension Type of Wound Date of Service: 05/10/18 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: Nonhealing wound on left lumbar back status post sebaceous cyst I&D on 02/14/2018 and right thoracic back I and D of sebaceous cyst on 04/03/18 by pcp History of Wound: February 14, 2018 the patient had an i and d of a sebaceous cyst by his PCP. The patient has had ongoing moderate amount of serosanguineous drainage and nonhealing of the area since. The patient presents today and states the area is still draining bloody drainage. His does dressing changes to the site daily with saroj, which she is currently out of. He has been doing the Saroj for approximately 4 weeks. He denies any other treatments and denies any other aggravating or relieving factors. A recent wound culture was taken last week and was negative. He denies fever chills or other signs of infection. The patient otherwise denies any fever, chills, nausea, vomiting, shortness of breath, chest pain or pressure, palpitations, orthopnea, lower extremity edema, syncope or presyncopal episodes. Progress of Wound: Left back Wound is stable, still having moderate serosanguinous drainage, clean and pink without signs of infection at this time, right upper back wound size stable without signs of infection either, moderate amount of slough present in wound bed. Patient was recently seen by his PCP and diagnosed with type 2 DM. He has finished his doxycycline for his staph epidermidis that was shown in his most recent wound culture. - Physical Exam Vital Signs Temp Pulse Resp BP 97.8 F 87 18 132/76 H 05/10/18 13:26 05/10/18 13:26 05/10/18 13:26 05/10/18 13:26 General: Alert, Oriented x3, Cooperative, No apparent distress HEENT: Atraumatic Lungs: Clear to auscultation Cardiovascular: Regular rate Abdomen: Bowel Sounds Present, Soft, Non Tender, Obese Extremities: No clubbing, No cyanosis, No edema Skin: Ulcer/ Wound - Wound to left lower back and right upper back with adherent slough, no signs of infection at this time, no redness, warmth, or streaking. Left lower back wound still has 0.4 cm of undermining from 6:00 to 9:00. Wound Measurements and Assessment WC - Nurse 1 - General Ulcer Measurement Start: 04/19/18 15:06 Freq: Status: Active Protocol: Activity Type Activity Date Activity User E-Sign Co-Sign Detail Recorded Client Recorded Date Recorded By Document 05/10/18 13:26 RB [id number] 05/10/18 13:28 RB 05/10/18 13:26 Wound Center Nurse 1 [Ulcer Assessment] # 2- RT SCAPULA -Combined with other wound No -Current Size (cm) - Length 0.5 -Current Size (cm) - Width 0.7 -Current Size (cm) - Depth 0.4 -Total Square Cm 0.35 -Photo Taken No -Epithelialization Small 1-33% -Tunneling No -Undermining/Tunneling No -Circular Undermining No -Exudate Amt Small -Exudate Type Serosanguineous -Wound Margin Thickened & Rolled Under -Granulation Amt Medium (34-66%) -Granulation Quality [place] -Slough/Fibrin Yes -Necrosis Amt Small (1-33%) -Necrotic Tissue Type Adherent Slough -Structure Exposed N/A -Texture (Mayra-wound Skin Appearance) Assessed -Moisture (Mayra-wound Skin Appearance Assessed ) -Color (Mayra-wound Skin Appearance) Assessed -Temperature (Mayra-wound Skin No Abnormality Appearance) (Pt Warm) -Tenderness on Palpation (Mayra-wound No Skin Appearance) -Ulcer Cleansing Wound Cleanser -Foul Odor after Cleansing No -Anesthetic Used 5% Lidocaine Gel #1 left lumbar back non healing post surgical -Combined with other wound No -Current Size (cm) - Length 3 -Current Size (cm) - Width 1.7 -Current Size (cm) - Depth 0.3 -Total Square Cm 5.1 -Photo Taken No -Epithelialization Small 1-33% -Tunneling No -Undermining/Tunneling No -Circular Undermining No -Exudate Amt Medium -Exudate Type Serosanguineous -Wound Margin Distinct, Outline Attached -Granulation Amt Medium (34-66%) -Granulation Quality [place] -Slough/Fibrin Yes -Necrosis Amt Small (1-33%) -Necrotic Tissue Type Adherent Slough -Structure Exposed N/A -Texture (Mayra-wound Skin Appearance) Assessed Excoriation -Moisture (Mayra-wound Skin Appearance Assessed ) -Color (Mayra-wound Skin Appearance) Assessed -Temperature (Mayra-wound Skin No Abnormality Appearance) (Pt Warm) -Ulcer Cleansing Wound Cleanser -Foul Odor after Cleansing No -Anesthetic Used 5% Lidocaine Gel [Edema Assessment] -Lower Limb Edema Present NA WC - Nurse 2 - General Ulcer CM Notes Start: 04/19/18 15:06 Freq: Status: Active Protocol: Activity Type Activity Date Activity User E-Sign Co-Sign Detail Recorded Client Recorded Date Recorded By Document 05/10/18 13:36 [id number] 05/10/18 13:40 05/10/18 13:36 Wound Center Nurse 2 [Procedure/Treatment] # 2- RT SCAPULA -Time 13:36 -Correct Patient Yes -Correct Side, Site, Position Yes -Correct Procedure Yes -Procedure Performed Yes -Type of Procedure Debridement -Clinical Debridement Subcutaneous -Post Debridement Size (cm) - Length 0.9 -Post Debridement Size (cm) - Width 0.8 -Post Debridement Size (cm) - Depth 0.5 -Total Square Cm 0.72 -Wound/Ulcer Outcome Not Healed -Ulcer Cleansing Not Cleansed -Foul Odor after Cleansing No -Bioengineered Tissue No -Bleeding Controlled with Pressure -Offloading No -Treatment Response Procedure Tolerated Well #1 left lumbar back non healing post surgical -Time 13:37 -Correct Patient Yes -Correct Side, Site, Position Yes -Correct Procedure Yes -Procedure Performed Yes -Type of Procedure Debridement -Clinical Debridement Subcutaneous -Post Debridement Size (cm) - Length 2.1 -Post Debridement Size (cm) - Width 1.6 -Post Debridement Size (cm) - Depth 0.3 -Total Square Cm 3.36 -Wound/Ulcer Outcome Not Healed -Ulcer Cleansing Not Cleansed -Foul Odor after Cleansing No -Bioengineered Tissue No -Bleeding Controlled with Pressure -Offloading No -Treatment Response Procedure Tolerated Well [See Physician Procedure note for Specifics] Pain Scale: 0-10 Numeric [Pain] -Is Patient Pain Free? Yes Neurological: Neuro grossly intact Psych/Mental Status: Normal Affect, Appropriate, Alert and oriented to time, place, person, mood and affect Debridement Note Post-Debridement Measurements/Treatment WC - Nurse 2 - General Ulcer CM Notes Start: 04/19/18 15:06 Freq: Status: Active Protocol: Activity Type Activity Date Activity User E-Sign Co-Sign Detail Recorded Client Recorded Date Recorded By Document 04/19/18 15:27 CS [id number] 04/19/18 15:28 CS Document 04/26/18 14:43 DV [id number] 04/26/18 15:00 DV Document 05/03/18 14:44 CS [id number] 05/03/18 14:47 CS Document 05/10/18 13:36 CS [id number] 05/10/18 13:40 CS 04/19/18 04/26/18 05/03/18 15:27 14:43 14:44 Wound Center Nurse 2 # 2- RT SCAPULA -Time 15:27 14:45 14:44 -Correct Patient Yes Yes Yes -Correct Side, Site, Position Yes Yes Yes -Correct Procedure Yes Yes Yes -Procedure Performed Yes Yes Yes -Type of Procedure Debridement Debridement Debridement -Clinical Debridement Subcutaneous Subcutaneous Subcutaneous -Post Debridement Size (cm) - Length 0.4 0.5 0.7 -Post Debridement Size (cm) - Width 0.4 0.5 0.7 -Post Debridement Size (cm) - Depth 0.2 0.3 0.4 -Total Square Cm 0.16 0.25 0.49 -Wound/Ulcer Outcome Not Healed Not Healed Not Healed -Ulcer Cleansing Not Cleansed Rinsed/ Not Cleansed Irrigated with Saline -Foul Odor after Cleansing No No No -Bioengineered Tissue No No No -Bleeding Controlled with Pressure Pressure Pressure -Offloading No No No -Treatment Response Procedure Procedure Procedure Tolerated Well Tolerated Well Tolerated Well #1 left lumbar back non healing post surgical -Time 15:27 14:46 14:44 -Correct Patient Yes Yes Yes -Correct Side, Site, Position Yes Yes Yes -Correct Procedure Yes Yes Yes -Procedure Performed Yes Yes Yes -Type of Procedure Debridement Debridement Debridement -Clinical Debridement Subcutaneous Subcutaneous Subcutaneous -Post Debridement Size (cm) - Length 2.1 2.3 2.1 -Post Debridement Size (cm) - Width 1.5 1.5 1.6 -Post Debridement Size (cm) - Depth 0.2 0.4 0.3 -Total Square Cm 3.15 3.45 3.36 -Wound/Ulcer Outcome Not Healed Not Healed Not Healed -Ulcer Cleansing Not Cleansed Rinsed/ Not Cleansed Irrigated with Saline -Foul Odor after Cleansing No No No -Bioengineered Tissue No No No -Bleeding Controlled with Pressure Pressure Pressure -Offloading No No No -Treatment Response Procedure Procedure Procedure Tolerated Well Tolerated Well Tolerated Well Pain Scale: 0-10 Numeric Is Patient Pain Free? Yes Yes Yes 05/10/18 13:36 Wound Center Nurse 2 # 2- RT SCAPULA -Time 13:36 -Correct Patient Yes -Correct Side, Site, Position Yes -Correct Procedure Yes -Procedure Performed Yes -Type of Procedure Debridement -Clinical Debridement Subcutaneous -Post Debridement Size (cm) - Length 0.9 -Post Debridement Size (cm) - Width 0.8 -Post Debridement Size (cm) - Depth 0.5 -Total Square Cm 0.72 -Wound/Ulcer Outcome Not Healed -Ulcer Cleansing Not Cleansed -Foul Odor after Cleansing No -Bioengineered Tissue No -Bleeding Controlled with Pressure -Offloading No -Treatment Response Procedure Tolerated Well #1 left lumbar back non healing post surgical -Time 13:37 -Correct Patient Yes -Correct Side, Site, Position Yes -Correct Procedure Yes -Procedure Performed Yes -Type of Procedure Debridement -Clinical Debridement Subcutaneous -Post Debridement Size (cm) - Length 2.1 -Post Debridement Size (cm) - Width 1.6 -Post Debridement Size (cm) - Depth 0.3 -Total Square Cm 3.36 -Wound/Ulcer Outcome Not Healed -Ulcer Cleansing Not Cleansed -Foul Odor after Cleansing No -Bioengineered Tissue No -Bleeding Controlled with Pressure -Offloading No -Treatment Response Procedure Tolerated Well Pain Scale: 0-10 Numeric Is Patient Pain Free? Yes Wound debrided: Left lower back wound Laterality: Left Type of Debridement: Excisional debridement Anesthesia Used: 5% Lidocaine Gel Depth: in the subcutaneous layer Percentage of wound debrided: 100 Instrument Used: 5mm curette Tissue Removed: Slough and devitalized tissue Severity: Fat Layer Exposed Amount of bleeding with debridement: Mild Bleeding Controlled with: Pressure Patient tolerated procedure well - Additional Wound Wound debrided: Right upper back wound Laterality: Right Type of Debridement: Excisional debridement Anesthesia Used: 5% Lidocaine Gel Depth: in the subcutaneous layer Percentage of wound debrided: 100 Instrument Used: 5mm curette Tissue Removed: Slough and devitalized tissue Severity: Fat Layer Exposed Amount of bleeding with debridement: Mild Bleeding Controlled with: Pressure Patient tolerated procedure: Patient tolerated procedure well Assessment/Plan Active Problems (Last Reviewed 04/26/18 @ 13:21 by Liliane Santos) Nonhealing surgical wound (Acute) x 2 s/p incision and drainage sebaceous cyst on left and right back Type 2 diabetes mellitus (Acute) Sebaceous cyst (Acute) Assessment: Nonhealing post surgical wound status post I&D sebaceous cyst Plan: The patient was seen and examined at the wound center today and was updated on the plan of care. A subcutaneous debridement was performed today. The patient tolerated the procedure well. We will resume the SNAP VAC today and Aquacel extra to right upper back wound. Wound cultures were collected and showed staph epidermidis and patient was placed on a course of doxycycline which he completed. Baseline bloodwork reviewed from PCP and an A1c was elevated at 6.6 and is being managed by PCP. Patient educated on the importance of diet on wound healing and instructed to increase protein supplementation to 3 times a day and vitamin C intake. Discussed importance of improved glycemic control. Patient verbalized understanding. Patient will follow up at wound healing center in 1 week or sooner if needed. Due to patient's delayed wound healing and treatment failure of greater than 4 weeks standard wound care, will apply for the use of epicord or another skin substitute for the wound to the left lower back. This note was generated with [employer] software. It may contain incorrect words, spelling, and punctuation that were not noted in checking the note before signing. Code Visit 111xxx-113xx: 52020 Pooja subq tissue 20 sq cm/<
--- NOTE | 2018-05-13 11:35 | PN.PCM_ITS ---
(1) Nonhealing surgical wound Status: Acute Current Visit: Yes Code(s): T81.89XA - Other complications of procedures, not elsewhere classified, initial encounter Comment: x 2 s/p incision and drainage sebaceous cyst on left and right back (2) Sebaceous cyst Status: Acute Current Visit: Yes Code(s): L72.3 - Sebaceous cyst (3) Type 2 diabetes mellitus Status: Acute Current Visit: Yes Qualifiers: Code(s): E11.9 - Type 2 diabetes mellitus without complications (4) Hypertension Status: Chronic Current Visit: No Code(s): I10 - Essential (primary) hypertension Type of Wound Date of Service: 05/10/18 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: Nonhealing wound on left lumbar back status post sebaceous cyst I&D on 02/14/2018 and right thoracic back I and D of sebaceous cyst on 04/03/18 by pcp History of Wound: February 14, 2018 the patient had an i and d of a sebaceous cyst by his PCP. The patient has had ongoing moderate amount of serosanguineous drainage and nonhealing of the area since. The patient presents today and states the area is still draining bloody drainage. His does dressing changes to the site daily with saroj, which she is currently out of. He has been doing the Saroj for approximately 4 weeks. He denies any other treatments and denies any other aggravating or relieving factors. A recent wound culture was taken last week and was negative. He denies fever chills or other signs of infection. The patient otherwise denies any fever, chills, nausea, vomiting, shortness of breath, chest pain or pressure, palpitations, orthopnea, lower extremity edema, syncope or presyncopal episodes. Progress of Wound: Left back Wound is stable, still having moderate serosanguinous drainage, clean and pink without signs of infection at this time, right upper back wound size stable without signs of infection either, moderate amount of slough present in wound bed. Patient was recently seen by his PCP and diagnosed with type 2 DM. He has finished his doxycycline for his staph epidermidis that was shown in his most recent wound culture. - Physical Exam Vital Signs Temp Pulse Resp BP 97.8 F 87 18 132/76 H 05/10/18 13:26 05/10/18 13:26 05/10/18 13:26 05/10/18 13:26 General: Alert, Oriented x3, Cooperative, No apparent distress HEENT: Atraumatic Lungs: Clear to auscultation Cardiovascular: Regular rate Abdomen: Bowel Sounds Present, Soft, Non Tender, Obese Extremities: No clubbing, No cyanosis, No edema Skin: Ulcer/ Wound - Wound to left lower back and right upper back with adherent slough, no signs of infection at this time, no redness, warmth, or streaking. Left lower back wound still has 0.4 cm of undermining from 6:00 to 9:00. Wound Measurements and Assessment WC - Nurse 1 - General Ulcer Measurement Start: 04/19/18 15:06 Freq: Status: Active Protocol: Activity Type Activity Date Activity User E-Sign Co-Sign Detail Recorded Client Recorded Date Recorded By Document 05/10/18 13:26 RB [id number] 05/10/18 13:28 RB 05/10/18 13:26 Wound Center Nurse 1 [Ulcer Assessment] # 2- RT SCAPULA -Combined with other wound No -Current Size (cm) - Length 0.5 -Current Size (cm) - Width 0.7 -Current Size (cm) - Depth 0.4 -Total Square Cm 0.35 -Photo Taken No -Epithelialization Small 1-33% -Tunneling No -Undermining/Tunneling No -Circular Undermining No -Exudate Amt Small -Exudate Type Serosanguineous -Wound Margin Thickened & Rolled Under -Granulation Amt Medium (34-66%) -Granulation Quality [place] -Slough/Fibrin Yes -Necrosis Amt Small (1-33%) -Necrotic Tissue Type Adherent Slough -Structure Exposed N/A -Texture (Mayra-wound Skin Appearance) Assessed -Moisture (Mayra-wound Skin Appearance Assessed ) -Color (Mayra-wound Skin Appearance) Assessed -Temperature (Mayra-wound Skin No Abnormality Appearance) (Pt Warm) -Tenderness on Palpation (Mayra-wound No Skin Appearance) -Ulcer Cleansing Wound Cleanser -Foul Odor after Cleansing No -Anesthetic Used 5% Lidocaine Gel #1 left lumbar back non healing post surgical -Combined with other wound No -Current Size (cm) - Length 3 -Current Size (cm) - Width 1.7 -Current Size (cm) - Depth 0.3 -Total Square Cm 5.1 -Photo Taken No -Epithelialization Small 1-33% -Tunneling No -Undermining/Tunneling No -Circular Undermining No -Exudate Amt Medium -Exudate Type Serosanguineous -Wound Margin Distinct, Outline Attached -Granulation Amt Medium (34-66%) -Granulation Quality [place] -Slough/Fibrin Yes -Necrosis Amt Small (1-33%) -Necrotic Tissue Type Adherent Slough -Structure Exposed N/A -Texture (Mayra-wound Skin Appearance) Assessed Excoriation -Moisture (Mayra-wound Skin Appearance Assessed ) -Color (Mayra-wound Skin Appearance) Assessed -Temperature (Mayra-wound Skin No Abnormality Appearance) (Pt Warm) -Ulcer Cleansing Wound Cleanser -Foul Odor after Cleansing No -Anesthetic Used 5% Lidocaine Gel [Edema Assessment] -Lower Limb Edema Present NA WC - Nurse 2 - General Ulcer CM Notes Start: 04/19/18 15:06 Freq: Status: Active Protocol: Activity Type Activity Date Activity User E-Sign Co-Sign Detail Recorded Client Recorded Date Recorded By Document 05/10/18 13:36 [id number] 05/10/18 13:40 05/10/18 13:36 Wound Center Nurse 2 [Procedure/Treatment] # 2- RT SCAPULA -Time 13:36 -Correct Patient Yes -Correct Side, Site, Position Yes -Correct Procedure Yes -Procedure Performed Yes -Type of Procedure Debridement -Clinical Debridement Subcutaneous -Post Debridement Size (cm) - Length 0.9 -Post Debridement Size (cm) - Width 0.8 -Post Debridement Size (cm) - Depth 0.5 -Total Square Cm 0.72 -Wound/Ulcer Outcome Not Healed -Ulcer Cleansing Not Cleansed -Foul Odor after Cleansing No -Bioengineered Tissue No -Bleeding Controlled with Pressure -Offloading No -Treatment Response Procedure Tolerated Well #1 left lumbar back non healing post surgical -Time 13:37 -Correct Patient Yes -Correct Side, Site, Position Yes -Correct Procedure Yes -Procedure Performed Yes -Type of Procedure Debridement -Clinical Debridement Subcutaneous -Post Debridement Size (cm) - Length 2.1 -Post Debridement Size (cm) - Width 1.6 -Post Debridement Size (cm) - Depth 0.3 -Total Square Cm 3.36 -Wound/Ulcer Outcome Not Healed -Ulcer Cleansing Not Cleansed -Foul Odor after Cleansing No -Bioengineered Tissue No -Bleeding Controlled with Pressure -Offloading No -Treatment Response Procedure Tolerated Well [See Physician Procedure note for Specifics] Pain Scale: 0-10 Numeric [Pain] -Is Patient Pain Free? Yes Neurological: Neuro grossly intact Psych/Mental Status: Normal Affect, Appropriate, Alert and oriented to time, place, person, mood and affect Debridement Note Post-Debridement Measurements/Treatment WC - Nurse 2 - General Ulcer CM Notes Start: 04/19/18 15:06 Freq: Status: Active Protocol: Activity Type Activity Date Activity User E-Sign Co-Sign Detail Recorded Client Recorded Date Recorded By Document 04/19/18 15:27 CS [id number] 04/19/18 15:28 CS Document 04/26/18 14:43 DV [id number] 04/26/18 15:00 DV Document 05/03/18 14:44 CS [id number] 05/03/18 14:47 CS Document 05/10/18 13:36 CS [id number] 05/10/18 13:40 CS 04/19/18 04/26/18 05/03/18 15:27 14:43 14:44 Wound Center Nurse 2 # 2- RT SCAPULA -Time 15:27 14:45 14:44 -Correct Patient Yes Yes Yes -Correct Side, Site, Position Yes Yes Yes -Correct Procedure Yes Yes Yes -Procedure Performed Yes Yes Yes -Type of Procedure Debridement Debridement Debridement -Clinical Debridement Subcutaneous Subcutaneous Subcutaneous -Post Debridement Size (cm) - Length 0.4 0.5 0.7 -Post Debridement Size (cm) - Width 0.4 0.5 0.7 -Post Debridement Size (cm) - Depth 0.2 0.3 0.4 -Total Square Cm 0.16 0.25 0.49 -Wound/Ulcer Outcome Not Healed Not Healed Not Healed -Ulcer Cleansing Not Cleansed Rinsed/ Not Cleansed Irrigated with Saline -Foul Odor after Cleansing No No No -Bioengineered Tissue No No No -Bleeding Controlled with Pressure Pressure Pressure -Offloading No No No -Treatment Response Procedure Procedure Procedure Tolerated Well Tolerated Well Tolerated Well #1 left lumbar back non healing post surgical -Time 15:27 14:46 14:44 -Correct Patient Yes Yes Yes -Correct Side, Site, Position Yes Yes Yes -Correct Procedure Yes Yes Yes -Procedure Performed Yes Yes Yes -Type of Procedure Debridement Debridement Debridement -Clinical Debridement Subcutaneous Subcutaneous Subcutaneous -Post Debridement Size (cm) - Length 2.1 2.3 2.1 -Post Debridement Size (cm) - Width 1.5 1.5 1.6 -Post Debridement Size (cm) - Depth 0.2 0.4 0.3 -Total Square Cm 3.15 3.45 3.36 -Wound/Ulcer Outcome Not Healed Not Healed Not Healed -Ulcer Cleansing Not Cleansed Rinsed/ Not Cleansed Irrigated with Saline -Foul Odor after Cleansing No No No -Bioengineered Tissue No No No -Bleeding Controlled with Pressure Pressure Pressure -Offloading No No No -Treatment Response Procedure Procedure Procedure Tolerated Well Tolerated Well Tolerated Well Pain Scale: 0-10 Numeric Is Patient Pain Free? Yes Yes Yes 05/10/18 13:36 Wound Center Nurse 2 # 2- RT SCAPULA -Time 13:36 -Correct Patient Yes -Correct Side, Site, Position Yes -Correct Procedure Yes -Procedure Performed Yes -Type of Procedure Debridement -Clinical Debridement Subcutaneous -Post Debridement Size (cm) - Length 0.9 -Post Debridement Size (cm) - Width 0.8 -Post Debridement Size (cm) - Depth 0.5 -Total Square Cm 0.72 -Wound/Ulcer Outcome Not Healed -Ulcer Cleansing Not Cleansed -Foul Odor after Cleansing No -Bioengineered Tissue No -Bleeding Controlled with Pressure -Offloading No -Treatment Response Procedure Tolerated Well #1 left lumbar back non healing post surgical -Time 13:37 -Correct Patient Yes -Correct Side, Site, Position Yes -Correct Procedure Yes -Procedure Performed Yes -Type of Procedure Debridement -Clinical Debridement Subcutaneous -Post Debridement Size (cm) - Length 2.1 -Post Debridement Size (cm) - Width 1.6 -Post Debridement Size (cm) - Depth 0.3 -Total Square Cm 3.36 -Wound/Ulcer Outcome Not Healed -Ulcer Cleansing Not Cleansed -Foul Odor after Cleansing No -Bioengineered Tissue No -Bleeding Controlled with Pressure -Offloading No -Treatment Response Procedure Tolerated Well Pain Scale: 0-10 Numeric Is Patient Pain Free? Yes Wound debrided: Left lower back wound Laterality: Left Type of Debridement: Excisional debridement Anesthesia Used: 5% Lidocaine Gel Depth: in the subcutaneous layer Percentage of wound debrided: 100 Instrument Used: 5mm curette Tissue Removed: Slough and devitalized tissue Severity: Fat Layer Exposed Amount of bleeding with debridement: Mild Bleeding Controlled with: Pressure Patient tolerated procedure well - Additional Wound Wound debrided: Right upper back wound Laterality: Right Type of Debridement: Excisional debridement Anesthesia Used: 5% Lidocaine Gel Depth: in the subcutaneous layer Percentage of wound debrided: 100 Instrument Used: 5mm curette Tissue Removed: Slough and devitalized tissue Severity: Fat Layer Exposed Amount of bleeding with debridement: Mild Bleeding Controlled with: Pressure Patient tolerated procedure: Patient tolerated procedure well Assessment/Plan Active Problems (Last Reviewed 04/26/18 @ 13:21 by Liliane Santos) Nonhealing surgical wound (Acute) x 2 s/p incision and drainage sebaceous cyst on left and right back Type 2 diabetes mellitus (Acute) Sebaceous cyst (Acute) Assessment: Nonhealing post surgical wound status post I&D sebaceous cyst Plan: The patient was seen and examined at the wound center today and was updated on the plan of care. A subcutaneous debridement was performed today. The patient tolerated the procedure well. We will resume the SNAP VAC today and Aquacel extra to right upper back wound. Wound cultures were collected and showed staph epidermidis and patient was placed on a course of doxycycline which he completed. Baseline bloodwork reviewed from PCP and an A1c was elevated at 6.6 and is being managed by PCP. Patient educated on the importance of diet on wound healing and instructed to increase protein supplementation to 3 times a day and vitamin C intake. Discussed importance of improved glycemic control. Patient verbalized understanding. Patient will follow up at wound healing center in 1 week or sooner if needed. Due to patient's delayed wound healing and treatment failure of greater than 4 weeks standard wound care, will apply for the use of epicord or another skin substitute for the wound to the left lower back. This note was generated with [employer] software. It may contain incorrect words, spelling, and punctuation that were not noted in checking the note before signing. Code Visit [id number]: 16016 Pooja subq tissue 20 sq cm/<
[2018-05-14 13:07] VITALS: BP 115/53; PULSE 110; RESP 16; TEMP 35.7; BMI 33.0
[2018-05-17 13:09] VITALS: BP 104/65; PULSE 90; RESP 18; TEMP 36.4; BMI 33.0
--- NOTE | 2018-05-18 16:15 | PCM.WC.PN ---
(1) Nonhealing surgical wound Status: Acute Code(s): T81.89XA - Other complications of procedures, not elsewhere classified, initial encounter Comment: x 2 s/p incision and drainage sebaceous cyst on left and right back (2) Sebaceous cyst Status: Acute Code(s): L72.3 - Sebaceous cyst (3) Type 2 diabetes mellitus Status: Acute Qualifiers: Code(s): E11.9 - Type 2 diabetes mellitus without complications (4) Hypertension Status: Chronic Code(s): I10 - Essential (primary) hypertension Type of Wound Date of Service: 05/17/18 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: Nonhealing wound on left lumbar back status post sebaceous cyst I&D on 02/14/2018 and right thoracic back I and D of sebaceous cyst on 04/03/18 by pcp History of Wound: February 14, 2018 the patient had an i and d of a sebaceous cyst by his PCP. The patient has had ongoing moderate amount of serosanguineous drainage and nonhealing of the area since. The patient presents today and states the area is still draining bloody drainage. His does dressing changes to the site daily with saroj, which she is currently out of. He has been doing the Saroj for approximately 4 weeks. He denies any other treatments and denies any other aggravating or relieving factors. A recent wound culture was taken last week and was negative. He denies fever chills or other signs of infection. The patient otherwise denies any fever, chills, nausea, vomiting, shortness of breath, chest pain or pressure, palpitations, orthopnea, lower extremity edema, syncope or presyncopal episodes. Progress of Wound: Left back Wound is stable, still having moderate serosanguinous drainage, clean and pink without signs of infection at this time, right upper back wound size stable without signs of infection either, moderate amount of slough present in wound bed. Patient was recently seen by his PCP and diagnosed with type 2 DM. He has finished his doxycycline for his staph epidermidis that was shown in his most recent wound culture. Patient does have an upcoming appointment for plastic surgery in consultation on 05/21/2018. In brief, the patient has failed standard wound care over the last 4 months with the use of collagen products, wound VAC, and serial debridements. Patient's been cultured twice and grew staph epidermidis which was treated with a course of doxycycline. Patient's wounds continue to slowly worsen each week. Patient continues to maintain good blood sugar control for his diabetes, utilize protein supplementation, and do daily dressing changes. Denies any signs of systemic infection or localized infection at this time. - Physical Exam Vital Signs Temp Pulse Resp BP 97.6 F L 90 18 104/65 05/17/18 13:09 05/17/18 13:09 05/17/18 13:09 05/17/18 13:09 General: Alert, Oriented x3, Cooperative, No apparent distress HEENT: Atraumatic Oral: Moist Mucosa Lungs: Clear to auscultation Cardiovascular: Regular rate Abdomen: Soft, Non Tender, Obese Extremities: No clubbing, No cyanosis, No edema Skin: Ulcer/ Wound - Wound to right upper back and left lower back with adherent slough to wound bed, wound to left lower back with 0.3 mm undermining present from 6 to 9 PM, no obvious signs of infection at this time, wound bed is granular, moist, and beefy red. Wound Measurements and Assessment WC - Nurse 1 - General Ulcer Measurement Start: 04/19/18 15:06 Freq: Status: Active Protocol: Activity Type Activity Date Activity User E-Sign Co-Sign Detail Recorded Client Recorded Date Recorded By Document 05/17/18 13:09 [id number] 05/17/18 13:18 DL 05/17/18 13:09 Wound Center Nurse 1 [Ulcer Assessment] # 2- RT SCAPULA -Current Size (cm) - Length 0.8 -Current Size (cm) - Width 1 -Current Size (cm) - Depth 0.3 -Total Square Cm 0.8 -Photo Taken No -Maximum Distance #2 (cm) 0.2 -Circular Undermining Yes -Exudate Amt Small -Exudate Type Serosanguineous -Wound Margin Distinct, Outline Attached -Granulation Amt Large (67-100%) -Granulation Quality Red -Necrosis Amt Small (1-33%) -Necrotic Tissue Type Adherent Slough -Structure Exposed N/A -Texture (Mayra-wound Skin Appearance) Scarring -Moisture (Mayra-wound Skin Appearance No Abnormality ) -Color (Mayra-wound Skin Appearance) No Abnormality -Temperature (Mayra-wound Skin No Abnormality Appearance) (Pt Warm) -Tenderness on Palpation (Mayra-wound Yes Skin Appearance) -Ulcer Cleansing Rinsed/ Irrigated with Saline -Foul Odor after Cleansing No -Anesthetic Used 5% Lidocaine Gel #1 left lumbar back non healing post surgical -Current Size (cm) - Length 2.7 -Current Size (cm) - Width 1.8 -Current Size (cm) - Depth 0.5 -Total Square Cm 4.86 -Undermining/Tunneling Starts (O' 7 clock) -Undermining/Tunneling Ends (O'clock) 10 -Maximum Distance (cm) 0.2 -Exudate Amt Small -Exudate Type Sanguineous -Wound Margin Thickened & Rolled Under -Granulation Amt Large (67-100%) -Granulation Quality Red -Necrosis Amt Small (1-33%) -Necrotic Tissue Type Adherent Slough -Structure Exposed N/A -Texture (Mayra-wound Skin Appearance) Scarring -Moisture (Mayra-wound Skin Appearance No Abnormality ) -Color (Mayra-wound Skin Appearance) No Abnormality -Tenderness on Palpation (Mayra-wound Yes Skin Appearance) -Foul Odor after Cleansing No -Anesthetic Used 5% Lidocaine Gel WC - Nurse 2 - General Ulcer CM Notes Start: 04/19/18 15:06 Freq: Status: Active Protocol: Activity Type Activity Date Activity User E-Sign Co-Sign Detail Recorded Client Recorded Date Recorded By Document 05/17/18 13:46 MW [id number] 05/17/18 13:52 MW 05/17/18 13:46 Wound Center Nurse 2 [Procedure/Treatment] # 2- RT SCAPULA -Time 13:47 -Correct Patient Yes -Correct Side, Site, Position Yes -Correct Procedure Yes -Procedure Performed Yes -Type of Procedure Debridement -Clinical Debridement Subcutaneous -Post Debridement Size (cm) - Length 1.0 -Post Debridement Size (cm) - Width 0.9 -Post Debridement Size (cm) - Depth 0.3 -Total Square Cm 0.90 -Wound/Ulcer Outcome Not Healed -Ulcer Cleansing Rinsed/ Irrigated with Saline -Foul Odor after Cleansing No -Bioengineered Tissue No -Bleeding Controlled with Pressure -Offloading No -Treatment Response Procedure Tolerated Well #1 left lumbar back non healing post surgical -Time 13:47 -Correct Patient Yes -Correct Side, Site, Position Yes -Correct Procedure Yes -Procedure Performed Yes -Type of Procedure Debridement -Clinical Debridement Subcutaneous -Post Debridement Size (cm) - Length 2.8 -Post Debridement Size (cm) - Width 1.9 -Post Debridement Size (cm) - Depth 0.4 -Total Square Cm 5.32 -Wound/Ulcer Outcome Not Healed -Ulcer Cleansing Rinsed/ Irrigated with Saline -Foul Odor after Cleansing No -Bioengineered Tissue No -Bleeding Controlled with Pressure -Other undermining 7 to 9- 0.3cm -Offloading No -Treatment Response Procedure Tolerated Well [See Physician Procedure note for Specifics] Pain Scale: 0-10 Numeric [Pain] -Is Patient Pain Free? Yes Neurological: Neuro grossly intact Psych/Mental Status: Normal Affect, Appropriate, Alert and oriented to time, place, person, mood and affect Debridement Note Post-Debridement Measurements/Treatment WC - Nurse 2 - General Ulcer CM Notes Start: 04/19/18 15:06 Freq: Status: Active Protocol: Activity Type Activity Date Activity User E-Sign Co-Sign Detail Recorded Client Recorded Date Recorded By Document 04/19/18 15:27 CS [id number] 04/19/18 15:28 CS Document 04/26/18 14:43 DV [id number] 04/26/18 15:00 DV Document 05/03/18 14:44 CS [id number] 05/03/18 14:47 CS Document 05/10/18 13:36 CS [id number] 05/10/18 13:40 CS Document 05/17/18 13:46 MW [id number] 05/17/18 13:52 MW 04/19/18 04/26/18 05/03/18 15:27 14:43 14:44 Wound Center Nurse 2 # 2- RT SCAPULA -Time 15:27 14:45 14:44 -Correct Patient Yes Yes Yes -Correct Side, Site, Position Yes Yes Yes -Correct Procedure Yes Yes Yes -Procedure Performed Yes Yes Yes -Type of Procedure Debridement Debridement Debridement -Clinical Debridement Subcutaneous Subcutaneous Subcutaneous -Post Debridement Size (cm) - Length 0.4 0.5 0.7 -Post Debridement Size (cm) - Width 0.4 0.5 0.7 -Post Debridement Size (cm) - Depth 0.2 0.3 0.4 -Total Square Cm 0.16 0.25 0.49 -Wound/Ulcer Outcome Not Healed Not Healed Not Healed -Ulcer Cleansing Not Cleansed Rinsed/ Not Cleansed Irrigated with Saline -Foul Odor after Cleansing No No No -Bioengineered Tissue No No No -Bleeding Controlled with Pressure Pressure Pressure -Offloading No No No -Treatment Response Procedure Procedure Procedure Tolerated Well Tolerated Well Tolerated Well #1 left lumbar back non healing post surgical -Time 15:27 14:46 14:44 -Correct Patient Yes Yes Yes -Correct Side, Site, Position Yes Yes Yes -Correct Procedure Yes Yes Yes -Procedure Performed Yes Yes Yes -Type of Procedure Debridement Debridement Debridement -Clinical Debridement Subcutaneous Subcutaneous Subcutaneous -Post Debridement Size (cm) - Length 2.1 2.3 2.1 -Post Debridement Size (cm) - Width 1.5 1.5 1.6 -Post Debridement Size (cm) - Depth 0.2 0.4 0.3 -Total Square Cm 3.15 3.45 3.36 -Wound/Ulcer Outcome Not Healed Not Healed Not Healed -Ulcer Cleansing Not Cleansed Rinsed/ Not Cleansed Irrigated with Saline -Foul Odor after Cleansing No No No -Bioengineered Tissue No No No -Bleeding Controlled with Pressure Pressure Pressure -Other -Offloading No No No -Treatment Response Procedure Procedure Procedure Tolerated Well Tolerated Well Tolerated Well Pain Scale: 0-10 Numeric Is Patient Pain Free? Yes Yes Yes 05/10/18 05/17/18 13:36 13:46 Wound Center Nurse 2 # 2- RT SCAPULA -Time 13:36 13:47 -Correct Patient Yes Yes -Correct Side, Site, Position Yes Yes -Correct Procedure Yes Yes -Procedure Performed Yes Yes -Type of Procedure Debridement Debridement -Clinical Debridement Subcutaneous Subcutaneous -Post Debridement Size (cm) - Length 0.9 1.0 -Post Debridement Size (cm) - Width 0.8 0.9 -Post Debridement Size (cm) - Depth 0.5 0.3 -Total Square Cm 0.72 0.90 -Wound/Ulcer Outcome Not Healed Not Healed -Ulcer Cleansing Not Cleansed Rinsed/ Irrigated with Saline -Foul Odor after Cleansing No No -Bioengineered Tissue No No -Bleeding Controlled with Pressure Pressure -Offloading No No -Treatment Response Procedure Procedure Tolerated Well Tolerated Well #1 left lumbar back non healing post surgical -Time 13:37 13:47 -Correct Patient Yes Yes -Correct Side, Site, Position Yes Yes -Correct Procedure Yes Yes -Procedure Performed Yes Yes -Type of Procedure Debridement Debridement -Clinical Debridement Subcutaneous Subcutaneous -Post Debridement Size (cm) - Length 2.1 2.8 -Post Debridement Size (cm) - Width 1.6 1.9 -Post Debridement Size (cm) - Depth 0.3 0.4 -Total Square Cm 3.36 5.32 -Wound/Ulcer Outcome Not Healed Not Healed -Ulcer Cleansing Not Cleansed Rinsed/ Irrigated with Saline -Foul Odor after Cleansing No No -Bioengineered Tissue No No -Bleeding Controlled with Pressure Pressure -Other undermining 7 to 9- 0.3cm -Offloading No No -Treatment Response Procedure Procedure Tolerated Well Tolerated Well Pain Scale: 0-10 Numeric Is Patient Pain Free? Yes Yes Wound debrided: Wound to left lower back Laterality: Left Type of Debridement: Excisional debridement Anesthesia Used: 5% Lidocaine Gel Depth: in the subcutaneous layer Percentage of wound debrided: 100 Instrument Used: 7mm curette Tissue Removed: Slough and devitalized tissue Severity: Fat Layer Exposed Amount of bleeding with debridement: Mild Bleeding Controlled with: Pressure Patient tolerated procedure well - Additional Wound Wound debrided: Wound to right upper back Laterality: Right Type of Debridement: Excisional debridement Anesthesia Used: 5% Lidocaine Gel Depth: in the subcutaneous layer Percentage of wound debrided: 100 Instrument Used: 5mm curette Tissue Removed: Slough and devitalized tissue Severity: Fat Layer Exposed Amount of bleeding with debridement: Mild Bleeding Controlled with: Pressure Patient tolerated procedure: Patient tolerated procedure well Assessment/Plan Assessment: Nonhealing post surgical wound status post I&D sebaceous cyst Plan: The patient was seen and examined at the wound center today and was updated on the plan of care. A subcutaneous debridement was performed today. The patient tolerated the procedure well. For wound care the patient will continue with Saroj to both wounds. Wound cultures were collected in April 2018 and showed staph epidermidis and patient was placed on a course of doxycycline which he completed. Baseline bloodwork reviewed from PCP and an A1c was elevated at 6.6 and is being managed by PCP. Patient educated on the importance of diet on wound healing and instructed to increase protein supplementation to 3 times a day and vitamin C intake. Discussed importance of improved glycemic control. Patient verbalized understanding. Patient will follow up at wound healing center in 1 week for plastic surgery consultation in 2 weeks with myself or sooner if needed. This note was generated with [email or web address] software. It may contain incorrect words, spelling, and punctuation that were not noted in checking the note before signing. Code Visit [id number]: [id number] Pooja subq tissue 20 sq cm/<
--- NOTE | 2018-05-18 16:20 | PN.PCM_ITS ---
(1) Nonhealing surgical wound Status: Acute Code(s): T81.89XA - Other complications of procedures, not elsewhere classified, initial encounter Comment: x 2 s/p incision and drainage sebaceous cyst on left and right back (2) Sebaceous cyst Status: Acute Code(s): L72.3 - Sebaceous cyst (3) Type 2 diabetes mellitus Status: Acute Qualifiers: Code(s): E11.9 - Type 2 diabetes mellitus without complications (4) Hypertension Status: Chronic Code(s): I10 - Essential (primary) hypertension Type of Wound Date of Service: 05/17/18 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: Nonhealing wound on left lumbar back status post sebaceous cyst I&D on 02/14/2018 and right thoracic back I and D of sebaceous cyst on 04/03/18 by pcp History of Wound: February 14, 2018 the patient had an i and d of a sebaceous cyst by his PCP. The patient has had ongoing moderate amount of serosanguineous drainage and nonhealing of the area since. The patient presents today and states the area is still draining bloody drainage. His does dressing changes to the site daily with saroj, which she is currently out of. He has been doing the Saroj for approximately 4 weeks. He denies any other treatments and denies any other aggravating or relieving factors. A recent wound culture was taken last week and was negative. He denies fever chills or other signs of infection. The patient otherwise denies any fever, chills, nausea, vomiting, shortness of breath, chest pain or pressure, palpitations, orthopnea, lower extremity edema, syncope or presyncopal episodes. Progress of Wound: Left back Wound is stable, still having moderate serosanguinous drainage, clean and pink without signs of infection at this time, right upper back wound size stable without signs of infection either, moderate amount of slough present in wound bed. Patient was recently seen by his PCP and diagnosed with type 2 DM. He has finished his doxycycline for his staph epidermidis that was shown in his most recent wound culture. Patient does have an upcoming appointment for plastic surgery in consultation on 05/21/2018. In brief, the patient has failed standard wound care over the last 4 months with the use of collagen products, wound VAC, and serial debridements. Patient's been cultured twice and grew staph epidermidis which was treated with a course of doxycycline. Patient's wounds continue to slowly worsen each week. Patient continues to maintain good blood sugar control for his diabetes, utilize protein supplementation, and do daily dressing changes. Denies any signs of systemic infection or localized infection at this time. - Physical Exam Vital Signs Temp Pulse Resp BP 97.6 F L 90 18 104/65 05/17/18 13:09 05/17/18 13:09 05/17/18 13:09 05/17/18 13:09 General: Alert, Oriented x3, Cooperative, No apparent distress HEENT: Atraumatic Oral: Moist Mucosa Lungs: Clear to auscultation Cardiovascular: Regular rate Abdomen: Soft, Non Tender, Obese Extremities: No clubbing, No cyanosis, No edema Skin: Ulcer/ Wound - Wound to right upper back and left lower back with adherent slough to wound bed, wound to left lower back with 0.3 mm undermining present from 6 to 9 PM, no obvious signs of infection at this time, wound bed is granular, moist, and beefy red. Wound Measurements and Assessment WC - Nurse 1 - General Ulcer Measurement Start: 04/19/18 15:06 Freq: Status: Active Protocol: Activity Type Activity Date Activity User E-Sign Co-Sign Detail Recorded Client Recorded Date Recorded By Document 05/17/18 13:09 [id number] 05/17/18 13:18 DL 05/17/18 13:09 Wound Center Nurse 1 [Ulcer Assessment] # 2- RT SCAPULA -Current Size (cm) - Length 0.8 -Current Size (cm) - Width 1 -Current Size (cm) - Depth 0.3 -Total Square Cm 0.8 -Photo Taken No -Maximum Distance #2 (cm) 0.2 -Circular Undermining Yes -Exudate Amt Small -Exudate Type Serosanguineous -Wound Margin Distinct, Outline Attached -Granulation Amt Large (67-100%) -Granulation Quality Red -Necrosis Amt Small (1-33%) -Necrotic Tissue Type Adherent Slough -Structure Exposed N/A -Texture (Mayra-wound Skin Appearance) Scarring -Moisture (Mayra-wound Skin Appearance No Abnormality ) -Color (Mayra-wound Skin Appearance) No Abnormality -Temperature (Mayra-wound Skin No Abnormality Appearance) (Pt Warm) -Tenderness on Palpation (Mayar-wound Yes Skin Appearance) -Ulcer Cleansing Rinsed/ Irrigated with Saline -Foul Odor after Cleansing No -Anesthetic Used 5% Lidocaine Gel #1 left lumbar back non healing post surgical -Current Size (cm) - Length 2.7 -Current Size (cm) - Width 1.8 -Current Size (cm) - Depth 0.5 -Total Square Cm 4.86 -Undermining/Tunneling Starts (O' 7 clock) -Undermining/Tunneling Ends (O'clock) 10 -Maximum Distance (cm) 0.2 -Exudate Amt Small -Exudate Type Sanguineous -Wound Margin Thickened & Rolled Under -Granulation Amt Large (67-100%) -Granulation Quality Red -Necrosis Amt Small (1-33%) -Necrotic Tissue Type Adherent Slough -Structure Exposed N/A -Texture (Mayra-wound Skin Appearance) Scarring -Moisture (Mayra-wound Skin Appearance No Abnormality ) -Color (Mayra-wound Skin Appearance) No Abnormality -Tenderness on Palpation (Mayra-wound Yes Skin Appearance) -Foul Odor after Cleansing No -Anesthetic Used 5% Lidocaine Gel WC - Nurse 2 - General Ulcer CM Notes Start: 04/19/18 15:06 Freq: Status: Active Protocol: Activity Type Activity Date Activity User E-Sign Co-Sign Detail Recorded Client Recorded Date Recorded By Document 05/17/18 13:46 MW [id number] 05/17/18 13:52 MW 05/17/18 13:46 Wound Center Nurse 2 [Procedure/Treatment] # 2- RT SCAPULA -Time 13:47 -Correct Patient Yes -Correct Side, Site, Position Yes -Correct Procedure Yes -Procedure Performed Yes -Type of Procedure Debridement -Clinical Debridement Subcutaneous -Post Debridement Size (cm) - Length 1.0 -Post Debridement Size (cm) - Width 0.9 -Post Debridement Size (cm) - Depth 0.3 -Total Square Cm 0.90 -Wound/Ulcer Outcome Not Healed -Ulcer Cleansing Rinsed/ Irrigated with Saline -Foul Odor after Cleansing No -Bioengineered Tissue No -Bleeding Controlled with Pressure -Offloading No -Treatment Response Procedure Tolerated Well #1 left lumbar back non healing post surgical -Time 13:47 -Correct Patient Yes -Correct Side, Site, Position Yes -Correct Procedure Yes -Procedure Performed Yes -Type of Procedure Debridement -Clinical Debridement Subcutaneous -Post Debridement Size (cm) - Length 2.8 -Post Debridement Size (cm) - Width 1.9 -Post Debridement Size (cm) - Depth 0.4 -Total Square Cm 5.32 -Wound/Ulcer Outcome Not Healed -Ulcer Cleansing Rinsed/ Irrigated with Saline -Foul Odor after Cleansing No -Bioengineered Tissue No -Bleeding Controlled with Pressure -Other undermining 7 to 9- 0.3cm -Offloading No -Treatment Response Procedure Tolerated Well [See Physician Procedure note for Specifics] Pain Scale: 0-10 Numeric [Pain] -Is Patient Pain Free? Yes Neurological: Neuro grossly intact Psych/Mental Status: Normal Affect, Appropriate, Alert and oriented to time, p lace, person, mood and affect Debridement Note Post-Debridement Measurements/Treatment WC - Nurse 2 - General Ulcer CM Notes Start: 04/19/18 15:06 Freq: Status: Active Protocol: Activity Type Activity Date Activity User E-Sign Co-Sign Detail Recorded Client Recorded Date Recorded By Document 04/19/18 15:27 CS [id number] 04/19/18 15:28 CS Document 04/26/18 14:43 DV [id number] 04/26/18 15:00 DV Document 05/03/18 14:44 CS [id number] 05/03/18 14:47 CS Document 05/10/18 13:36 CS [id number] 05/10/18 13:40 CS Document 05/17/18 13:46 MW [id number] 05/17/18 13:52 MW 04/19/18 04/26/18 05/03/18 15:27 14:43 14:44 Wound Center Nurse 2 # 2- RT SCAPULA -Time 15:27 14:45 14:44 -Correct Patient Yes Yes Yes -Correct Side, Site, Position Yes Yes Yes -Correct Procedure Yes Yes Yes -Procedure Performed Yes Yes Yes -Type of Procedure Debridement Debridement Debridement -Clinical Debridement Subcutaneous Subcutaneous Subcutaneous -Post Debridement Size (cm) - Length 0.4 0.5 0.7 -Post Debridement Size (cm) - Width 0.4 0.5 0.7 -Post Debridement Size (cm) - Depth 0.2 0.3 0.4 -Total Square Cm 0.16 0.25 0.49 -Wound/Ulcer Outcome Not Healed Not Healed Not Healed -Ulcer Cleansing Not Cleansed Rinsed/ Not Cleansed Irrigated with Saline -Foul Odor after Cleansing No No No -Bioengineered Tissue No No No -Bleeding Controlled with Pressure Pressure Pressure -Offloading No No No -Treatment Response Procedure Procedure Procedure Tolerated Well Tolerated Well Tolerated Well #1 left lumbar back non healing post surgical -Time 15:27 14:46 14:44 -Correct Patient Yes Yes Yes -Correct Side, Site, Position Yes Yes Yes -Correct Procedure Yes Yes Yes -Procedure Performed Yes Yes Yes -Type of Procedure Debridement Debridement Debridement -Clinical Debridement Subcutaneous Subcutaneous Subcutaneous -Post Debridement Size (cm) - Length 2.1 2.3 2.1 -Post Debridement Size (cm) - Width 1.5 1.5 1.6 -Post Debridement Size (cm) - Depth 0.2 0.4 0.3 -Total Square Cm 3.15 3.45 3.36 -Wound/Ulcer Outcome Not Healed Not Healed Not Healed -Ulcer Cleansing Not Cleansed Rinsed/ Not Cleansed Irrigated with Saline -Foul Odor after Cleansing No No No -Bioengineered Tissue No No No -Bleeding Controlled with Pressure Pressure Pressure -Other -Offloading No No No -Treatment Response Procedure Procedure Procedure Tolerated Well Tolerated Well Tolerated Well Pain Scale: 0-10 Numeric Is Patient Pain Free? Yes Yes Yes 05/10/18 05/17/18 13:36 13:46 Wound Center Nurse 2 # 2- RT SCAPULA -Time 13:36 13:47 -Correct Patient Yes Yes -Correct Side, Site, Position Yes Yes -Correct Procedure Yes Yes -Procedure Performed Yes Yes -Type of Procedure Debridement Debridement -Clinical Debridement Subcutaneous Subcutaneous -Post Debridement Size (cm) - Length 0.9 1.0 -Post Debridement Size (cm) - Width 0.8 0.9 -Post Debridement Size (cm) - Depth 0.5 0.3 -Total Square Cm 0.72 0.90 -Wound/Ulcer Outcome Not Healed Not Healed -Ulcer Cleansing Not Cleansed Rinsed/ Irrigated with Saline -Foul Odor after Cleansing No No -Bioengineered Tissue No No -Bleeding Controlled with Pressure Pressure -Offloading No No -Treatment Response Procedure Procedure Tolerated Well Tolerated Well #1 left lumbar back non healing post surgical -Time 13:37 13:47 -Correct Patient Yes Yes -Correct Side, Site, Position Yes Yes -Correct Procedure Yes Yes -Procedure Performed Yes Yes -Type of Procedure Debridement Debridement -Clinical Debridement Subcutaneous Subcutaneous -Post Debridement Size (cm) - Length 2.1 2.8 -Post Debridement Size (cm) - Width 1.6 1.9 -Post Debridement Size (cm) - Depth 0.3 0.4 -Total Square Cm 3.36 5.32 -Wound/Ulcer Outcome Not Healed Not Healed -Ulcer Cleansing Not Cleansed Rinsed/ Irrigated with Saline -Foul Odor after Cleansing No No -Bioengineered Tissue No No -Bleeding Controlled with Pressure Pressure -Other undermining 7 to 9- 0.3cm -Offloading No No -Treatment Response Procedure Procedure Tolerated Well Tolerated Well Pain Scale: 0-10 Numeric Is Patient Pain Free? Yes Yes Wound debrided: Wound to left lower back Laterality: Left Type of Debridement: Excisional debridement Anesthesia Used: 5% Lidocaine Gel Depth: in the subcutaneous layer Percentage of wound debrided: 100 Instrument Used: 7mm curette Tissue Removed: Slough and devitalized tissue Severity: Fat Layer Exposed Amount of bleeding with debridement: Mild Bleeding Controlled with: Pressure Patient tolerated procedure well - Additional Wound Wound debrided: Wound to right upper back Laterality: Right Type of Debridement: Excisional debridement Anesthesia Used: 5% Lidocaine Gel Depth: in the subcutaneous layer Percentage of wound debrided: 100 Instrument Used: 5mm curette Tissue Removed: Slough and devitalized tissue Severity: Fat Layer Exposed Amount of bleeding with debridement: Mild Bleeding Controlled with: Pressure Patient tolerated procedure: Patient tolerated procedure well Assessment/Plan Assessment: Nonhealing post surgical wound status post I&D sebaceous cyst Plan: The patient was seen and examined at the wound center today and was updated on the plan of care. A subcutaneous debridement was performed today. The patient tolerated the procedure well. For wound care the patient will continue with Saroj to both wounds. Wound cultures were collected in April 2018 and showed staph epidermidis and patient was placed on a course of doxycycline which he completed. Baseline bloodwork reviewed from PCP and an A1c was elevated at 6.6 and is being managed by PCP. Patient educated on the importance of diet on wound healing and instructed to increase protein supplementation to 3 times a day and vitamin C intake. Discussed importance of improved glycemic control. Patient verbalized understanding. Patient will follow up at wound healing center in 1 week for plastic surgery consultation in 2 weeks with myself or sooner if needed. This note was generated with [employer] software. It may contain incorrect words, spelling, and punctuation that were not noted in checking the note before signing. Code Visit [id number]: [id number] Pooja subq tissue 20 sq cm/<
== END 2018-05-17 23:59 ==
LOC: WC 13:00
PROVIDERS: Family Provider Family Medicine; PCP Family Medicine; Referring Provider Nurse Practitioner Family; Visit Provider Nurse Practitioner Family
DX: T81.89XA Other complications of procedures, not elsewhere classified, initial encounter (principal); Y83.8 Other surgical procedures as the cause of abnormal reaction of the patient, or of later complication, without mention of misadventure at the time of the procedure; I10 Essential (primary) hypertension; L72.3 Sebaceous cyst; E11.9 Type 2 diabetes mellitus without complications
CPT/HCPCS: 11042; 87070; 87075; 87077; 87186; 87205; 97607; 99213; G0463

== ENCOUNTER 2018-05-31 13:07 | Outpatient (RCR) | payer OTHER, SELFPAY | END 2018-06-14 23:59 | LOC: DC 13:07 | PROVIDERS: Family Provider Family Medicine; PCP Family Medicine; Referring Provider Internal Medicine; Visit Provider Internal Medicine | DX: E11.9 Type 2 diabetes mellitus without complications (principal); Z71.3 Dietary counseling and surveillance | CPT/HCPCS: 97803 ==

== ENCOUNTER 2018-06-07 15:22 | Outpatient (RCR) | payer OTHER, SELFPAY ==
[2018-05-18 01:30] VITALS: BP 104/65; PULSE 90; RESP 18; TEMP 36.4
[2018-05-21 08:08] VITALS: BP 120/63; PULSE 82; RESP 18; TEMP 36.7; BMI 33.0
--- NOTE | 2018-05-21 09:57 | HP.PCM_ITS ---
History of Present Illness Date of Service: 05/21/18 - WOUND CENTER CONSULT REFERRING PHYSICIAN: Juan Alberto Harvey NP. DIGITAL PRODUCT SPECIALIST: Dr. Lemus. 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: Nonhealing diabetic ulcers left lateral middle back and right lateral middle back. History of Wound: Patient presents today for continued evaluation and treatment of his nonhealing diabetic ulcers right lateral middle back and left lateral middle back. Patient states he had I&D procedures by his PCP of sebaceous cysts on his back in January, and March,. He has been coming to the Wound Center since March. Various wound care modalities have been tried such as a SNAP VAC, Puroply, and most recently Christie dressing changes. Healing has been slow. Patient is diabetic and his recent HgbA1c was 6.6. He had a recent wound culture on 04/26/18 which showed Staphylococcus epidermidis and he was treated with Doxycycline. Patient takes nutritional supplementation with protein to help the healing process. 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 Since healing is slow, I was asked to evaluate this patient for surgical options for treatment. 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) Nonhealing ulcers right lateral middle back and left lateral middle back Trigger finger, left ring finger (Chronic) Hypertension (Chronic) Neuroma (Chronic) Surgical History: - Allergies/Adverse Reactions: Allergies No Known Allergies Allergy (Verified 04/26/18 13:20) Home Medications: Ambulatory Orders Medication Instructions Recorded albuterol sulfate HFA 90 2 puff INHALATION Q6H PRN 11/22/17 mcg/actuation aerosol inhaler diclofenac 1 % topical gel 2 g TOPICAL ONCE 11/29/17 cyclobenzaprine 10 mg tablet 5 - 10 mg PO TID PRN #30 tab 01/30/18 ibuprofen 800 mg tablet 800 mg PO BID-TID PRN #30 tab 01/30/18 lisinopril 10 mg tablet 10 mg PO DAILY #90 tab 01/30/18 blood sugar diagnostic strips See Dose Instructions .ROUTE 04/06/18 .MEDSUPPLY #50 ea blood-glucose meter kit See Dose Instructions .ROUTE 04/06/18 .MEDSUPPLY #1 ea lancets 28 gauge See Dose Instructions .ROUTE 04/06/18 .MEDSUPPLY #50 ea metformin ER 500 mg 500 mg PO QPM #90 tab 04/22/18 tablet,extended release 24hr Kenalog 40 mg/mL suspension for 10 mg INTRAARTIC ONCE #0.25 ml NS 04/26/18 injection - Family History Paternal Family History: Family History (Last Reviewed 04/26/18 @ 13:21 by Liliane Santos) Grandfather Cancer Father Prostate cancer Grandfather CVA (cerebral vascular accident) Cancer - Prostate, - - Strip colon polyps Smoking Status: Never smoker Review of Systems Constitutional: Denies: Chills, Fever, Weight Change. Eyes: Denies: Pain, Vision Change. HEENT: Denies: Difficulty Hearing, Difficulty Swallowing, Sinus Congestion. Cardiovascular: Denies: Chest Pain, Palpitations. Respiratory: Denies: Cough, Shortness of Breath. Gastrointestinal: Denies: Diarrhea, Nausea, Vomiting. Genitourinary: Denies: Dysuria, Hematuria. Skin: Reports: Wounds - See HPI. Endocrine: Denies: Heat/ Cold Intolerance, Polydipsia, Polyuria. Hematologic/ Lymphatic: Denies: Easy Bruising, Easy Bleeding - Physical Exam Vital Signs Temp Pulse Resp BP 98.0 F 82 18 120/63 05/21/18 08:08 05/21/18 08:08 05/21/18 08:08 05/21/18 08:08 General: Alert, Oriented x3 HEENT: PERRLA, EOMI Oral: Moist Mucosa Neck: Supple Lungs: Clear to auscultation Cardiovascular: Regular rate, Regular Rhythm Abdomen: Soft, Non-Distended Extremities: No clubbing, No cyanosis, No edema Skin: Ulcer/ Wound - There are nonhealing diabetic ulcers right lateral middle back and left lateral middle back. Good granulation tissue is seen. No evidence of cellulitis, fluctuance, or purulent drainage. Mild tenderness to palpation. Measures 2.5 x 1.8 x 0.3 cm on the left and 0.8 x 0.9 x 0.3 cm on the right. Wound Measurements and Assessment WC - Nurse 1 - General Ulcer Measurement Start: 05/21/18 08:08 Freq: Status: Active Protocol: Activity Type Activity Date Activity User E-Sign Co-Sign Detail Recorded Client Recorded Date Recorded By Document 05/21/18 08:08 MW [id number] 05/21/18 08:19 MW 02/04/19 08:08 Wound Center Nurse 1 [Ulcer Assessment] # 2- RT SCAPULA -Combined with other wound No -Current Size (cm) - Length 0.8 -Current Size (cm) - Width 0.9 -Current Size (cm) - Depth 0.3 -Total Square Cm 0.72 -Photo Taken No -Epithelialization None Present -Tunneling No -Undermining/Tunneling No -Circular Undermining No -Exudate Amt Small -Exudate Type Serosanguineous -Wound Margin Distinct, Outline Attached -Granulation Amt Large (67-100%) -Granulation Quality [place] -Slough/Fibrin Yes -Necrosis Amt Small (1-33%) -Necrotic Tissue Type Adherent Slough -Texture (Mayra-wound Skin Appearance) Assessed Scarring -Moisture (Mayra-wound Skin Appearance No Abnormality ) Assessed -Color (Mayra-wound Skin Appearance) No Abnormality Assessed -Temperature (Mayra-wound Skin No Abnormality Appearance) (Pt Warm) -Tenderness on Palpation (Mayra-wound No Skin Appearance) -Ulcer Cleansing Rinsed/ Irrigated with Saline -Foul Odor after Cleansing No -Anesthetic Used 4% Lidocaine Solution 5% Lidocaine Gel #1 left lumbar back non healing post surgical -Combined with other wound No -Current Size (cm) - Length 2.5 -Current Size (cm) - Width 1.8 -Current Size (cm) - Depth 0.3 -Total Square Cm 4.50 -Photo Taken No -Epithelialization None Present -Tunneling No -Undermining/Tunneling No -Circular Undermining No -Exudate Amt Small -Exudate Type Serosanguineous -Wound Margin Thickened & Rolled Under -Granulation Amt Large (67-100%) -Granulation Quality [place] -Slough/Fibrin Yes -Necrosis Amt Small (1-33%) -Necrotic Tissue Type Adherent Slough -Structure Exposed N/A -Texture (Mayra-wound Skin Appearance) Assessed Scarring -Moisture (Mayra-wound Skin Appearance No Abnormality ) Assessed -Color (Mayra-wound Skin Appearance) No Abnormality Assessed -Temperature (Mayra-wound Skin No Abnormality Appearance) (Pt Warm) -Tenderness on Palpation (Mayra-wound No Skin Appearance) -Ulcer Cleansing Rinsed/ Irrigated with Saline -Foul Odor after Cleansing No -Anesthetic Used 4% Lidocaine Solution 5% Lidocaine Gel [Edema Assessment] -Lower Limb Edema Present No WC - Nurse 2 - General Ulcer CM Notes Start: 05/21/18 08:08 Freq: Status: Active Protocol: Activity Type Activity Date Activity User E-Sign Co-Sign Detail Recorded Client Recorded Date Recorded By Document 05/21/18 09:07 JF [id number] 05/21/18 09:08 05/21/18 09:07 Wound Center Nurse 2 [Procedure/Treatment] # 2- RT SCAPULA -Correct Patient No -Correct Side, Site, Position No -Correct Procedure No -Procedure Performed No #1 left lumbar back non healing post surgical -Correct Patient No -Correct Side, Site, Position No -Correct Procedure No -Procedure Performed No [See Physician Procedure note for Specifics] Pain Scale: 0-10 Numeric [Pain] -Is Patient Pain Free? Yes Lymphatic: - - no axillary adenopathy. Neurological: Cranial nerves II-XII grossly intact Psych/Mental Status: Normal Affect, Appropriate Debridement Note Post-Debridement Measurements/Treatment WC - Nurse 2 - General Ulcer CM Notes Start: 05/21/18 08:08 Freq: Status: Active Protocol: Activity Type Activity Date Activity User E-Sign Co-Sign Detail Recorded Client Recorded Date Recorded By Document 05/21/18 09:07 JF [id number] 05/21/18 09:08 05/21/18 09:07 Wound Center Nurse 2 # 2- RT SCAPULA -Correct Patient No -Correct Side, Site, Position No -Correct Procedure No -Procedure Performed No #1 left lumbar back non healing post surgical -Correct Patient No -Correct Side, Site, Position No -Correct Procedure No -Procedure Performed No Pain Scale: 0-10 Numeric Is Patient Pain Free? Yes Wound debrided: #1 Left lateral middle back. Laterality: Left Wound Grade/Stage: 2. No debridement was completed today - his PCP will debride the ulcer later this week. - Additional Wound Wound debrided: #2 Right lateral middle back. Laterality: Right Wound Grade/Stage: 2. Patient tolerated procedure: - - No debridement was done today as his PCP will debride the ulcer later this week. Assessment/Plan Assessment: 1. Nonhealing diabetic ulcer right lateral middle back. 2. Nonhealing diabetic ulcer left lateral middle back. 3. Diabetes mellitus. Plan: Continue Christie dressing changes daily. Patient's HgbA1c was 6.6. Discussed with the patient that healing has been slow. Recommended operative debridement and wound closure with a local skin flap or skin grafting can be done. A delay in healing can be caused by presence of a foreign body, infection, inflammatory process such as autoimmune disease, radiation therapy, or cancer. Will send tissue to Pathology for analysis to rule out carcinoma and to Microbiology for culture. A positive culture will necessitate antibiotic therapy. Since the SNAP VAC has been stopped, the measurements are slightly smaller. The patient wants to think about this surgery and let me know when he wants to proceed. Surgery can be done under local anesthesia and IV sedation on an outpatient basis. Patient was informed of the risks and complications of the procedure including alternatives to surgery. These were discussed with him personally. He voices understanding and wishes to proceed with the current plan of continued wound care and will consider surgery over the next few weeks. Depending on the healing progress, would consider another wound culture. When he decides on surgery, will need a wound culture preop. Followup one week.
[2018-05-24 13:29] VITALS: BP 116/69; PULSE 98; RESP 18; TEMP 37.1; BMI 33.0
--- NOTE | 2018-05-24 16:03 | PCM.WC.PN ---
(1) Nonhealing surgical wound Status: Acute Current Visit: Yes Code(s): T81.89XA - Other complications of procedures, not elsewhere classified, initial encounter Comment: x 2 s/p incision and drainage sebaceous cyst on left and right back (2) Sebaceous cyst Status: Acute Current Visit: Yes Code(s): L72.3 - Sebaceous cyst (3) Type 2 diabetes mellitus Status: Acute Current Visit: Yes Qualifiers: Code(s): E11.9 - Type 2 diabetes mellitus without complications (4) Hypertension Status: Chronic Current Visit: No Code(s): I10 - Essential (primary) hypertension Type of Wound Date of Service: 05/24/18 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: Nonhealing diabetic ulcers left lateral middle back and right lateral middle back. History of Wound: Patient presents today for continued evaluation and treatment of his nonhealing diabetic ulcers right lateral middle back and left lateral middle back. Patient states he had I&D procedures by his PCP of sebaceous cysts on his back in January, and March,. He has been coming [facility] since March. Various wound care modalities have been tried such as a SNAP VAC, Puroply, and most recently Christie dressing changes. Healing has been slow. Patient is diabetic and his recent HgbA1c was 6.6. He had a recent wound culture on 04/26/18 which showed Staphylococcus epidermidis and he was treated with Doxycycline. Patient takes nutritional supplementation with protein to help the healing process. 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 Since healing is slow, I was asked to evaluate this patient for surgical options for treatment. Progress of Wound: Left back Wound has slight improvement, still having moderate serosanguinous drainage, clean and pink without signs of infection at this time, right upper back wound size stable/slowly deteriorating without signs of infection either, moderate amount of slough present in wound bed. Patient was recently seen by his PCP and diagnosed with type 2 DM. Plastic surgery was consulted earlier this week and discussed surgical options, patient wishes to hold off at this time. - Physical Exam Vital Signs Temp Pulse Resp BP 98.7 F 98 18 116/69 05/24/18 13:29 05/24/18 13:29 05/24/18 13:29 05/24/18 13:29 General: Alert, Oriented x3, Cooperative, No apparent distress HEENT: Atraumatic Lungs: Clear to auscultation Cardiovascular: Regular rate Abdomen: Soft, Non Tender, Obese Extremities: No clubbing, No cyanosis, No edema Skin: Ulcer/ Wound - Wound to right and left back with adherent slough present, no purulent drainage, erythema, odor, redness or streaking present. Wound Measurements and Assessment WC - Nurse 1 - General Ulcer Measurement Start: 05/21/18 08:08 Freq: Status: Active Protocol: Activity Type Activity Date Activity User E-Sign Co-Sign Detail Recorded Client Recorded Date Recorded By Document 05/24/18 13:29 NM [id number] 05/24/18 13:33 NM 05/24/18 13:29 Wound Center Nurse 1 [Ulcer Assessment] # 2- RT SCAPULA -Combined with other wound No -Current Size (cm) - Length 0.9 -Current Size (cm) - Width 0.9 -Current Size (cm) - Depth 0.2 -Total Square Cm 0.81 -Photo Taken No -Epithelialization Medium 34-66% -Tunneling No -Undermining/Tunneling No -Circular Undermining No -Exudate Amt Small -Exudate Type Serosanguineous -Wound Margin Thickened & Rolled Under -Granulation Amt Large (67-100%) -Granulation Quality Pale [place] -Slough/Fibrin No -Necrosis Amt None Present (0 %) -Texture (Mayra-wound Skin Appearance) Assessed -Moisture (Mayra-wound Skin Appearance Assessed ) -Color (Mayra-wound Skin Appearance) Assessed -Temperature (Mayra-wound Skin No Abnormality Appearance) (Pt Warm) -Tenderness on Palpation (Mayra-wound No Skin Appearance) -Ulcer Cleansing Rinsed/ Irrigated with Saline -Foul Odor after Cleansing No -Anesthetic Used 4% Lidocaine Solution 5% Lidocaine Gel #1 left lumbar back non healing post surgical -Combined with other wound No -Current Size (cm) - Length 2.5 -Current Size (cm) - Width 1.9 -Current Size (cm) - Depth 0.3 -Total Square Cm 4.75 -Photo Taken No -Epithelialization Large 67-100% -Tunneling No -Undermining/Tunneling No -Circular Undermining No -Exudate Amt Small -Exudate Type Serosanguineous -Wound Margin Thickened & Rolled Under -Granulation Amt Large (67-100%) -Granulation Quality Pale [place] -Slough/Fibrin No -Texture (Mayra-wound Skin Appearance) Assessed -Moisture (Mayra-wound Skin Appearance Assessed ) -Color (Mayra-wound Skin Appearance) Assessed -Temperature (Mayra-wound Skin No Abnormality Appearance) (Pt Warm) -Tenderness on Palpation (Mayra-wound No Skin Appearance) -Ulcer Cleansing Rinsed/ Irrigated with Saline -Foul Odor after Cleansing No -Anesthetic Used 5% Lidocaine Gel WC - Nurse 2 - General Ulcer CM Notes Start: 05/21/18 08:08 Freq: Status: Active Protocol: Activity Type Activity Date Activity User E-Sign Co-Sign Detail Recorded Client Recorded Date Recorded By Document 05/24/18 13:51 DV [id number] 05/24/18 13:57 DV 05/24/18 13:51 Wound Center Nurse 2 [Procedure/Treatment] # 2- RT SCAPULA -Time 13:52 -Correct Patient Yes -Correct Side, Site, Position Yes -Correct Procedure Yes -Procedure Performed Yes -Type of Procedure Debridement -Clinical Debridement Subcutaneous -Post Debridement Size (cm) - Length 1.0 -Post Debridement Size (cm) - Width 1.0 -Post Debridement Size (cm) - Depth 0.5 -Total Square Cm 1.00 -Wound/Ulcer Outcome Not Healed -Ulcer Cleansing Rinsed/ Irrigated with Saline -Foul Odor after Cleansing No -Bioengineered Tissue No -Bleeding Controlled with Pressure #1 left lumbar back non healing post surgical -Time 13:54 -Correct Patient Yes -Correct Side, Site, Position Yes -Correct Procedure Yes -Procedure Performed Yes -Type of Procedure Debridement -Clinical Debridement Subcutaneous -Post Debridement Size (cm) - Length 2.5 -Post Debridement Size (cm) - Width 1.5 -Post Debridement Size (cm) - Depth 0.3 -Total Square Cm 3.75 -Wound/Ulcer Outcome Not Healed -Ulcer Cleansing Rinsed/ Irrigated with Saline -Foul Odor after Cleansing No -Bleeding Controlled with Pressure -Treatment Response Procedure Tolerated Well [See Physician Procedure note for Specifics] Pain Scale: 0-10 Numeric [Pain] -Is Patient Pain Free? Yes Neurological: Neuro grossly intact Psych/Mental Status: Normal Affect, Appropriate, Alert and oriented to time, place, person, mood and affect Debridement Note Post-Debridement Measurements/Treatment WC - Nurse 2 - General Ulcer CM Notes Start: 05/21/18 08:08 Freq: Status: Active Protocol: Activity Type Activity Date Activity User E-Sign Co-Sign Detail Recorded Client Recorded Date Recorded By Document 05/21/18 09:07 [facility] [id number] 05/21/18 09:08 Document 05/24/18 13:51 DV [id number] 05/24/18 13:57 DV 05/21/18 05/24/18 09:07 13:51 Wound Center Nurse 2 # 2- RT SCAPULA -Time 13:52 -Correct Patient No Yes -Correct Side, Site, Position No Yes -Correct Procedure No Yes -Procedure Performed No Yes -Type of Procedure Debridement -Clinical Debridement Subcutaneous -Post Debridement Size (cm) - Length 1.0 -Post Debridement Size (cm) - Width 1.0 -Post Debridement Size (cm) - Depth 0.5 -Total Square Cm 1.00 -Wound/Ulcer Outcome Not Healed -Ulcer Cleansing Rinsed/ Irrigated with Saline -Foul Odor after Cleansing No -Bioengineered Tissue No -Bleeding Controlled with Pressure #1 left lumbar back non healing post surgical -Time 13:54 -Correct Patient No Yes -Correct Side, Site, Position No Yes -Correct Procedure No Yes -Procedure Performed No Yes -Type of Procedure Debridement -Clinical Debridement Subcutaneous -Post Debridement Size (cm) - Length 2.5 -Post Debridement Size (cm) - Width 1.5 -Post Debridement Size (cm) - Depth 0.3 -Total Square Cm 3.75 -Wound/Ulcer Outcome Not Healed -Ulcer Cleansing Rinsed/ Irrigated with Saline -Foul Odor after Cleansing No -Bleeding Controlled with Pressure -Treatment Response Procedure Tolerated Well Pain Scale: 0-10 Numeric Is Patient Pain Free? Yes Yes Wound debrided: Left lower back wound Laterality: Left Type of Debridement: Excisional debridement Anesthesia Used: 5% Lidocaine Gel Depth: in the subcutaneous layer Percentage of wound debrided: 100 Instrument Used: 5mm curette Tissue Removed: Slough and devitalized tissue Severity: Fat Layer Exposed Amount of bleeding with debridement: Mild Bleeding Controlled with: Pressure Patient tolerated procedure well - Additional Wound Wound debrided: Right upper back wound Laterality: Right Type of Debridement: Excisional debridement Anesthesia Used: 5% Lidocaine Gel Depth: in the subcutaneous layer Percentage of wound debrided: 100 Instrument Used: 5mm curette Tissue Removed: Slough and devitalized tissue Severity: Fat Layer Exposed Amount of bleeding with debridement: Mild Bleeding Controlled with: Pressure Patient tolerated procedure: Patient tolerated procedure well Assessment/Plan Active Problems (Last Reviewed 04/26/18 @ 13:21 by Liliane Santos) Nonhealing surgical wound (Acute) x 2 s/p incision and drainage sebaceous cyst on left and right back Type 2 diabetes mellitus (Acute) Sebaceous cyst (Acute) Assessment: 1. Nonhealing diabetic ulcer right lateral middle back. 2. Nonhealing diabetic ulcer left lateral middle back. 3. Diabetes mellitus. Plan: The patient was seen and examined at the wound center today and was updated on the plan of care. A subcutaneous debridement was performed today. The patient tolerated the procedure well. The patients wound care will consist of: Moistened Christie daily. Wound cultures were collected prior which showed staph epidermidis and patient was treated with a course of doxycycline. Plastic surgery was consulted prior and discussed surgical options, however patient wishes to hold off at this time. Patient educated on the importance of diet on wound healing and instructed to increase protein and vitamin C intake. Patient verbalized understanding. Patient will follow up at wound healing center in one week or sooner if needed. This note was generated with [employer] dictation software. It may contain incorrect words, spelling, and punctuation that were not noted in checking the note before signing. Code Visit 111xxx-113xx: [id number] Pooja subq tissue 20 sq cm/<
--- NOTE | 2018-05-25 16:08 | PN.PCM_ITS ---
(1) Nonhealing surgical wound Status: Acute Current Visit: Yes Code(s): T81.89XA - Other complications of procedures, not elsewhere classified, initial encounter Comment: x 2 s/p incision and drainage sebaceous cyst on left and right back (2) Sebaceous cyst Status: Acute Current Visit: Yes Code(s): L72.3 - Sebaceous cyst (3) Type 2 diabetes mellitus Status: Acute Current Visit: Yes Qualifiers: Code(s): E11.9 - Type 2 diabetes mellitus without complications (4) Hypertension Status: Chronic Current Visit: No Code(s): I10 - Essential (primary) hypertension Type of Wound Date of Service: 05/24/18 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: Nonhealing diabetic ulcers left lateral middle back and right lateral middle back. History of Wound: Patient presents today for continued evaluation and treatment of his nonhealing diabetic ulcers right lateral middle back and left lateral middle back. Patient states he had I&D procedures by his PCP of sebaceous cysts on his back in January, and March,. He has been coming to the [facility] Center since March. Various wound care modalities have been tried such as a SNAP VAC, Puroply, and most recently Christie dressing changes. Healing has been slow. Patient is diabetic and his recent HgbA1c was 6.6. He had a recent wound culture on 04/26/18 which showed Staphylococcus epidermidis and he was treated with Doxycycline. Patient takes nutritional supplementation with protein to help the healing process. 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 Since healing is slow, I was asked to evaluate this patient for surgical options for treatment. Progress of Wound: Left back Wound has slight improvement, still having moderate serosanguinous drainage, clean and pink without signs of infection at this time, right upper back wound size stable/slowly deteriorating without signs of infection either, moderate amount of slough present in wound bed. Patient was recently seen by his PCP and diagnosed with type 2 DM. Plastic surgery was consulted earlier this week and discussed surgical options, patient wishes to hold off at this time. - Physical Exam Vital Signs Temp Pulse Resp BP 98.7 F 98 18 116/69 05/24/18 13:29 05/24/18 13:29 05/24/18 13:29 05/24/18 13:29 General: Alert, Oriented x3, Cooperative, No apparent distress HEENT: Atraumatic Lungs: Clear to auscultation Cardiovascular: Regular rate Abdomen: Soft, Non Tender, Obese Extremities: No clubbing, No cyanosis, No edema Skin: Ulcer/ Wound - Wound to right and left back with adherent slough present, no purulent drainage, erythema, odor, redness or streaking present. Wound Measurements and Assessment WC - Nurse 1 - General Ulcer Measurement Start: 05/21/18 08:08 Freq: Status: Active Protocol: Activity Type Activity Date Activity User E-Sign Co-Sign Detail Recorded Client Recorded Date Recorded By Document 05/24/18 13:29 PA [id number] 05/24/18 13:33 PA 05/24/18 13:29 Wound Center Nurse 1 [Ulcer Assessment] # 2- RT SCAPULA -Combined with other wound No -Current Size (cm) - Length 0.9 -Current Size (cm) - Width 0.9 -Current Size (cm) - Depth 0.2 -Total Square Cm 0.81 -Photo Taken No -Epithelialization Medium 34-66% -Tunneling No -Undermining/Tunneling No -Circular Undermining No -Exudate Amt Small -Exudate Type Serosanguineous -Wound Margin Thickened & Rolled Under -Granulation Amt Large (67-100%) -Granulation Quality Pale [place] -Slough/Fibrin No -Necrosis Amt None Present (0 %) -Texture (Mayra-wound Skin Appearance) Assessed -Moisture (Mayra-wound Skin Appearance Assessed ) -Color (Mayra-wound Skin Appearance) Assessed -Temperature (Mayra-wound Skin No Abnormality Appearance) (Pt Warm) -Tenderness on Palpation (Mayra-wound No Skin Appearance) -Ulcer Cleansing Rinsed/ Irrigated with Saline -Foul Odor after Cleansing No -Anesthetic Used 4% Lidocaine Solution 5% Lidocaine Gel #1 left lumbar back non healing post surgical -Combined with other wound No -Current Size (cm) - Length 2.5 -Current Size (cm) - Width 1.9 -Current Size (cm) - Depth 0.3 -Total Square Cm 4.75 -Photo Taken No -Epithelialization Large 67-100% -Tunneling No -Undermining/Tunneling No -Circular Undermining No -Exudate Amt Small -Exudate Type Serosanguineous -Wound Margin Thickened & Rolled Under -Granulation Amt Large (67-100%) -Granulation Quality Pale [place] -Slough/Fibrin No -Texture (Mayra-wound Skin Appearance) Assessed -Moisture (Mayra-wound Skin Appearance Assessed ) -Color (Mayra-wound Skin Appearance) Assessed -Temperature (Mayra-wound Skin No Abnormality Appearance) (Pt Warm) -Tenderness on Palpation (Mayra-wound No Skin Appearance) -Ulcer Cleansing Rinsed/ Irrigated with Saline -Foul Odor after Cleansing No -Anesthetic Used 5% Lidocaine Gel WC - Nurse 2 - General Ulcer CM Notes Start: 05/21/18 08:08 Freq: Status: Active Protocol: Activity Type Activity Date Activity User E-Sign Co-Sign Detail Recorded Client Recorded Date Recorded By Document 05/24/18 13:51 DV [id number] 05/24/18 13:57 DV 05/24/18 13:51 Wound Center Nurse 2 [Procedure/Treatment] # 2- RT SCAPULA -Time 13:52 -Correct Patient Yes -Correct Side, Site, Position Yes -Correct Procedure Yes -Procedure Performed Yes -Type of Procedure Debridement -Clinical Debridement Subcutaneous -Post Debridement Size (cm) - Length 1.0 -Post Debridement Size (cm) - Width 1.0 -Post Debridement Size (cm) - Depth 0.5 -Total Square Cm 1.00 -Wound/Ulcer Outcome Not Healed -Ulcer Cleansing Rinsed/ Irrigated with Saline -Foul Odor after Cleansing No -Bioengineered Tissue No -Bleeding Controlled with Pressure #1 left lumbar back non healing post surgical -Time 13:54 -Correct Patient Yes -Correct Side, Site, Position Yes -Correct Procedure Yes -Procedure Performed Yes -Type of Procedure Debridement -Clinical Debridement Subcutaneous -Post Debridement Size (cm) - Length 2.5 -Post Debridement Size (cm) - Width 1.5 -Post Debridement Size (cm) - Depth 0.3 -Total Square Cm 3.75 -Wound/Ulcer Outcome Not Healed -Ulcer Cleansing Rinsed/ Irrigated with Saline -Foul Odor after Cleansing No -Bleeding Controlled with Pressure -Treatment Response Procedure Tolerated Well [See Physician Procedure note for Specifics] Pain Scale: 0-10 Numeric [Pain] -Is Patient Pain Free? Yes Neurological: Neuro grossly intact Psych/Mental Status: Normal Affect, Appropriate, Alert and oriented to time, place, person, mood and affect Debridement Note Post-Debridement Measurements/Treatment WC - Nurse 2 - General Ulcer CM Notes Start: 05/21/18 08:08 Freq: Status: Active Protocol: Activity Type Activity Date Activity User E-Sign Co-Sign Detail Recorded Client Recorded Date Recorded By Document 05/21/18 09:07 [facility] [id number] 05/21/18 09:08 Document 05/24/18 13:51 DV [id number] 05/24/18 13:57 DV 05/21/18 05/24/18 09:07 13:51 Wound Center Nurse 2 # 2- RT SCAPULA -Time 13:52 -Correct Patient No Yes -Correct Side, Site, Position No Yes -Correct Procedure No Yes -Procedure Performed No Yes -Type of Procedure Debridement -Clinical Debridement Subcutaneous -Post Debridement Size (cm) - Length 1.0 -Post Debridement Size (cm) - Width 1.0 -Post Debridement Size (cm) - Depth 0.5 -Total Square Cm 1.00 -Wound/Ulcer Outcome Not Healed -Ulcer Cleansing Rinsed/ Irrigated with Saline -Foul Odor after Cleansing No -Bioengineered Tissue No -Bleeding Controlled with Pressure #1 left lumbar back non healing post surgical -Time 13:54 -Correct Patient No Yes -Correct Side, Site, Position No Yes -Correct Procedure No Yes -Procedure Performed No Yes -Type of Procedure Debridement -Clinical Debridement Subcutaneous -Post Debridement Size (cm) - Length 2.5 -Post Debridement Size (cm) - Width 1.5 -Post Debridement Size (cm) - Depth 0.3 -Total Square Cm 3.75 -Wound/Ulcer Outcome Not Healed -Ulcer Cleansing Rinsed/ Irrigated with Saline -Foul Odor after Cleansing No -Bleeding Controlled with Pressure -Treatment Response Procedure Tolerated Well Pain Scale: 0-10 Numeric Is Patient Pain Free? Yes Yes Wound debrided: Left lower back wound Laterality: Left Type of Debridement: Excisional debridement Anesthesia Used: 5% Lidocaine Gel Depth: in the subcutaneous layer Percentage of wound debrided: 100 Instrument Used: 5mm curette Tissue Removed: Slough and devitalized tissue Severity: Fat Layer Exposed Amount of bleeding with debridement: Mild Bleeding Controlled with: Pressure Patient tolerated procedure well - Additional Wound Wound debrided: Right upper back wound Laterality: Right Type of Debridement: Excisional debridement Anesthesia Used: 5% Lidocaine Gel Depth: in the subcutaneous layer Percentage of wound debrided: 100 Instrument Used: 5mm curette Tissue Removed: Slough and devitalized tissue Severity: Fat Layer Exposed Amount of bleeding with debridement: Mild Bleeding Controlled with: Pressure Patient tolerated procedure: Patient tolerated procedure well Assessment/Plan Active Problems (Last Reviewed 04/26/18 @ 13:21 by Liliane Santos) Nonhealing surgical wound (Acute) x 2 s/p incision and drainage sebaceous cyst on left and right back Type 2 diabetes mellitus (Acute) Sebaceous cyst (Acute) Assessment: 1. Nonhealing diabetic ulcer right lateral middle back. 2. Nonhealing diabetic ulcer left lateral middle back. 3. Diabetes mellitus. Plan: The patient was seen and examined at the wound center today and was updated on the plan of care. A subcutaneous debridement was performed today. The patient tolerated the procedure well. The patients wound care will consist of: Moistened Christie daily. Wound cultures were collected prior which showed staph epidermidis and patient was treated with a course of doxycycline. Plastic surgery was consulted prior and discussed surgical options, however patient wishes to hold off at this time. Patient educated on the importance of diet on wound healing and instructed to increase protein and vitamin C intake. Patient verbalized understanding. Patient will follow up at wound healing center in one week or sooner if needed. This note was generated with [employer] dictation software. It may contain incorrect words, spelling, and punctuation that were not noted in checking the note before signing. Code Visit 111xxx-113xx: [id number] Pooja subq tissue 20 sq cm/<
[2018-05-31 14:47] VITALS: BP 142/75; PULSE 91; RESP 18; TEMP 36.6; BMI 33.0
--- NOTE | 2018-05-31 16:39 | PCM.WC.PN ---
(1) Nonhealing surgical wound Status: Acute Code(s): T81.89XA - Other complications of procedures, not elsewhere classified, initial encounter Comment: x 2 s/p incision and drainage sebaceous cyst on left and right back (2) Sebaceous cyst Status: Acute Code(s): L72.3 - Sebaceous cyst (3) Type 2 diabetes mellitus Status: Acute Qualifiers: Code(s): E11.9 - Type 2 diabetes mellitus without complications (4) Hypertension Status: Chronic Code(s): I10 - Essential (primary) hypertension Type of Wound Date of Service: 05/31/18 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: Nonhealing diabetic ulcers left lateral middle back and right lateral middle back. History of Wound: Patient presents today for continued evaluation and treatment of his nonhealing diabetic ulcers right lateral middle back and left lateral middle back. Patient states he had I&D procedures by his PCP of sebaceous cysts on his back in January, and March,. He has been coming to the [facility] since March. Various wound care modalities have been tried such as a SNAP VAC, Puroply, and most recently Christie dressing changes. Healing has been slow. Patient is diabetic and his recent HgbA1c was 6.6. He had a recent wound culture on 04/26/18 which showed Staphylococcus epidermidis and he was treated with Doxycycline. Patient takes nutritional supplementation with protein to help the healing process. Patient denies any systemic or local signs of infection at this time. Progress of Wound: Both wounds continue with delayed wound healing without much improvement, without signs of infection either, moderate amount of slough present in wound bed. Patient was recently seen by his PCP and diagnosed with type 2 DM. Plastic surgery was consulted prior and discussed surgical options, patient wishes to hold off at this time. - Physical Exam Vital Signs Temp Pulse Resp BP 97.8 F 91 18 142/75 H 05/31/18 14:47 05/31/18 14:47 05/31/18 14:47 05/31/18 14:47 General: Alert, Oriented x3, Cooperative, No apparent distress HEENT: Atraumatic Oral: Moist Mucosa Lungs: Clear to auscultation Cardiovascular: Regular rate Abdomen: Soft, Non Tender, Obese Extremities: No clubbing, No cyanosis, No edema Skin: Ulcer/ Wound - Wound to left and right back with adherent slough, no signs of infection at this time, small amount of serosanguineous drainage Musculoskeletal: No Tenderness to Palpation of Joints or Extremities, No Muscle Wasting Neurological: Neuro grossly intact Psych/Mental Status: Normal Affect, Appropriate, Alert and oriented to time, place, person, mood and affect Debridement Note Post-Debridement Measurements/Treatment WC - Nurse 2 - General Ulcer CM Notes Start: 05/21/18 08:08 Freq: Status: Active Protocol: Activity Type Activity Date Activity User E-Sign Co-Sign Detail Recorded Client Recorded Date Recorded By Document 05/21/18 09:07 [id number] 05/21/18 09:08 JF Document 05/24/18 13:51 DV [id number] 05/24/18 13:57 DV Document 05/31/18 15:45 DV [id number] 05/31/18 15:48 DV 05/21/18 05/24/18 05/31/18 09:07 13:51 15:45 Wound Center Nurse 2 # 2- RT SCAPULA -Time 13:52 15:45 -Correct Patient No Yes Yes -Correct Side, Site, Position No Yes Yes -Correct Procedure No Yes Yes -Procedure Performed No Yes Yes -Type of Procedure Debridement Debridement -Clinical Debridement Subcutaneous Subcutaneous -Post Debridement Size (cm) - Length 1.0 1.1 -Post Debridement Size (cm) - Width 1.0 1.0 -Post Debridement Size (cm) - Depth 0.5 0.3 -Total Square Cm 1.00 1.10 -Wound/Ulcer Outcome Not Healed Not Healed -Ulcer Cleansing Rinsed/ Rinsed/ Irrigated with Irrigated with Saline Saline -Foul Odor after Cleansing No No -Bioengineered Tissue No No -Bleeding Controlled with Pressure Pressure -Offloading No -Treatment Response Procedure Tolerated Well #1 left lumbar back non healing post surgical -Time 13:54 15:46 -Correct Patient No Yes Yes -Correct Side, Site, Position No Yes Yes -Correct Procedure No Yes Yes -Procedure Performed No Yes Yes -Type of Procedure Debridement Debridement -Clinical Debridement Subcutaneous Subcutaneous -Post Debridement Size (cm) - Length 2.5 2.5 -Post Debridement Size (cm) - Width 1.5 2.0 -Post Debridement Size (cm) - Depth 0.3 0.4 -Total Square Cm 3.75 5.00 -Wound/Ulcer Outcome Not Healed Not Healed -Ulcer Cleansing Rinsed/ Rinsed/ Irrigated with Irrigated with Saline Saline -Foul Odor after Cleansing No No -Bioengineered Tissue No -Bleeding Controlled with Pressure Pressure -Offloading No -Treatment Response Procedure Procedure Tolerated Well Tolerated Well Pain Scale: 0-10 Numeric Is Patient Pain Free? Yes Yes Yes Wound debrided: Right upper back wound Laterality: Right Type of Debridement: Excisional debridement Anesthesia Used: 5% Lidocaine Gel Depth: in the subcutaneous layer Percentage of wound debrided: 100 Instrument Used: 5mm curette Tissue Removed: Slough and devitalized tissue Severity: Fat Layer Exposed Amount of bleeding with debridement: Mild Bleeding Controlled with: Pressure Patient tolerated procedure well - Additional Wound Wound debrided: Left thoracic back wound Laterality: Left Type of Debridement: Excisional debridement Anesthesia Used: 4% Lidocaine Solution Depth: in the subcutaneous layer Percentage of wound debrided: 100 Instrument Used: 5mm curette Tissue Removed: Slough and devitalized tissue Severity: Fat Layer Exposed Amount of bleeding with debridement: Mild Bleeding Controlled with: Pressure Patient tolerated procedure: Patient tolerated procedure well Assessment/Plan Assessment: 1. Nonhealing diabetic ulcer right lateral middle back. 2. Nonhealing diabetic ulcer left lateral middle back. 3. Diabetes mellitus. Plan: The patient was seen and examined at the wound center today and was updated on the plan of care. A subcutaneous debridement was performed today. The patient tolerated the procedure well. The patients wound care will consist of: application of hydrofera blue change daily. Wound cultures were collected prior which showed staph epidermidis and patient was treated with a course of doxycycline. Plastic surgery was consulted prior and discussed surgical options, however patient wishes to hold off at this time. Patient educated on the importance of diet on wound healing and instructed to increase protein and vitamin C intake. Patient also encouraged to continue with tight blood glucose control for management of his diabetes. Patient verbalized understanding. Patient will follow up at wound healing center in one week or sooner if needed. This note was generated with [employer] dictation software. It may contain incorrect words, spelling, and punctuation that were not noted in checking the note before signing. Code Visit 111xxx-[id number]: [id number] Pooja subq tissue 20 sq cm/<
--- NOTE | 2018-06-05 15:43 | PN.PCM_ITS ---
(1) Nonhealing surgical wound Status: Acute Code(s): T81.89XA - Other complications of procedures, not elsewhere classified, initial encounter Comment: x 2 s/p incision and drainage sebaceous cyst on left and right back (2) Sebaceous cyst Status: Acute Code(s): L72.3 - Sebaceous cyst (3) Type 2 diabetes mellitus Status: Acute Qualifiers: Code(s): E11.9 - Type 2 diabetes mellitus without complications (4) Hypertension Status: Chronic Code(s): I10 - Essential (primary) hypertension Type of Wound Date of Service: 05/31/18 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: Nonhealing diabetic ulcers left lateral middle back and right lateral middle back. History of Wound: Patient presents today for continued evaluation and treatment of his nonhealing diabetic ulcers right lateral middle back and left lateral middle back. Patient states he had I&D procedures by his PCP of sebaceous cysts on his back in January, and March,. He has been coming to the Wound Center since March. Various wound care modalities have been tried such as a SNAP VAC, Puroply, and most recently Christie dressing changes. Healing has been slow. Patient is diabetic and his recent HgbA1c was 6.6. He had a recent wound culture on 04/26/18 which showed Staphylococcus epidermidis and he was treated with Doxycycline. Patient takes nutritional supplementation with protein to help the healing process. Patient denies any systemic or local signs of infection at this time. Progress of Wound: Both wounds continue with delayed wound healing without much improvement, without signs of infection either, moderate amount of slough present in wound bed. Patient was recently seen by his PCP and diagnosed with type 2 DM. Plastic surgery was consulted prior and discussed surgical options, patient wishes to hold off at this time. - Physical Exam Vital Signs Temp Pulse Resp BP 97.8 F 91 18 142/75 H 05/31/18 14:47 05/31/18 14:47 05/31/18 14:47 05/31/18 14:47 General: Alert, Oriented x3, Cooperative, No apparent distress HEENT: Atraumatic Oral: Moist Mucosa Lungs: Clear to auscultation Cardiovascular: Regular rate Abdomen: Soft, Non Tender, Obese Extremities: No clubbing, No cyanosis, No edema Skin: Ulcer/ Wound - Wound to left and right back with adherent slough, no signs of infection at this time, small amount of serosanguineous drainage Musculoskeletal: No Tenderness to Palpation of Joints or Extremities, No Muscle Wasting Neurological: Neuro grossly intact Psych/Mental Status: Normal Affect, Appropriate, Alert and oriented to time, place, person, mood and affect Debridement Note Post-Debridement Measurements/Treatment WC - Nurse 2 - General Ulcer CM Notes Start: 05/21/18 08:08 Freq: Status: Active Protocol: Activity Type Activity Date Activity User E-Sign Co-Sign Detail Recorded Client Recorded Date Recorded By Document 05/21/18 09:07 [id number] 05/21/18 09:08 JF Document 05/24/18 13:51 DV [id number] 05/24/18 13:57 DV Document 05/31/18 15:45 DV [id number] 05/31/18 15:48 DV 05/21/18 05/24/18 05/31/18 09:07 13:51 15:45 Wound Center Nurse 2 # 2- RT SCAPULA -Time 13:52 15:45 -Correct Patient No Yes Yes -Correct Side, Site, Position No Yes Yes -Correct Procedure No Yes Yes -Procedure Performed No Yes Yes -Type of Procedure Debridement Debridement -Clinical Debridement Subcutaneous Subcutaneous -Post Debridement Size (cm) - Length 1.0 1.1 -Post Debridement Size (cm) - Width 1.0 1.0 -Post Debridement Size (cm) - Depth 0.5 0.3 -Total Square Cm 1.00 1.10 -Wound/Ulcer Outcome Not Healed Not Healed -Ulcer Cleansing Rinsed/ Rinsed/ Irrigated with Irrigated with Saline Saline -Foul Odor after Cleansing No No -Bioengineered Tissue No No -Bleeding Controlled with Pressure Pressure -Offloading No -Treatment Response Procedure Tolerated Well #1 left lumbar back non healing post surgical -Time 13:54 15:46 -Correct Patient No Yes Yes -Correct Side, Site, Position No Yes Yes -Correct Procedure No Yes Yes -Procedure Performed No Yes Yes -Type of Procedure Debridement Debridement -Clinical Debridement Subcutaneous Subcutaneous -Post Debridement Size (cm) - Length 2.5 2.5 -Post Debridement Size (cm) - Width 1.5 2.0 -Post Debridement Size (cm) - Depth 0.3 0.4 -Total Square Cm 3.75 5.00 -Wound/Ulcer Outcome Not Healed Not Healed -Ulcer Cleansing Rinsed/ Rinsed/ Irrigated with Irrigated with Saline Saline -Foul Odor after Cleansing No No -Bioengineered Tissue No -Bleeding Controlled with Pressure Pressure -Offloading No -Treatment Response Procedure Procedure Tolerated Well Tolerated Well Pain Scale: 0-10 Numeric Is Patient Pain Free? Yes Yes Yes Wound debrided: Right upper back wound Laterality: Right Type of Debridement: Excisional debridement Anesthesia Used: 5% Lidocaine Gel Depth: in the subcutaneous layer Percentage of wound debrided: 100 Instrument Used: 5mm curette Tissue Removed: Slough and devitalized tissue Severity: Fat Layer Exposed Amount of bleeding with debridement: Mild Bleeding Controlled with: Pressure Patient tolerated procedure well - Additional Wound Wound debrided: Left thoracic back wound Laterality: Left Type of Debridement: Excisional debridement Anesthesia Used: 4% Lidocaine Solution Depth: in the subcutaneous layer Percentage of wound debrided: 100 Instrument Used: 5mm curette Tissue Removed: Slough and devitalized tissue Severity: Fat Layer Exposed Amount of bleeding with debridement: Mild Bleeding Controlled with: Pressure Patient tolerated procedure: Patient tolerated procedure well Assessment/Plan Assessment: 1. Nonhealing diabetic ulcer right lateral middle back. 2. Nonhealing diabetic ulcer left lateral middle back. 3. Diabetes mellitus. Plan: The patient was seen and examined at the wound center today and was updated on the plan of care. A subcutaneous debridement was performed today. The patient tolerated the procedure well. The patients wound care will consist of: application of hydrofera blue change daily. Wound cultures were collected prior which showed staph epidermidis and patient was treated with a course of doxycycline. Plastic surgery was consulted prior and discussed surgical options, however patient wishes to hold off at this time. Patient educated on the importance of diet on wound healing and instructed to increase protein and vitamin C intake. Patient also encouraged to continue with tight blood glucose control for management of his diabetes. Patient verbalized understanding. Patient will follow up at wound healing center in one week or sooner if needed. This note was generated with [employer] dictation software. It may contain incorrect words, spelling, and punctuation that were not noted in checking the note before signing. Code Visit 111xxx-[id number]: [id number] Pooja subq tissue 20 sq cm/<
[2018-06-07 13:20] VITALS: BP 119/70; PULSE 91; RESP 16; TEMP 36.8; BMI 33.0
--- NOTE | 2018-06-07 16:43 | PCM.WC.PN ---
(1) Nonhealing surgical wound Status: Acute Current Visit: Yes Code(s): T81.89XA - Other complications of procedures, not elsewhere classified, initial encounter Comment: x 2 s/p incision and drainage sebaceous cyst on left and right back (2) Sebaceous cyst Status: Acute Current Visit: Yes Code(s): L72.3 - Sebaceous cyst (3) Type 2 diabetes mellitus Status: Acute Current Visit: Yes Qualifiers: Code(s): E11.9 - Type 2 diabetes mellitus without complications (4) Hypertension Status: Chronic Current Visit: Yes Code(s): I10 - Essential (primary) hypertension Type of Wound Date of Service: 06/07/18 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: Nonhealing diabetic ulcers left lateral middle back and right lateral middle back. History of Wound: Patient presents today for continued evaluation and treatment of his nonhealing diabetic ulcers right lateral middle back and left lateral middle back. Patient states he had I&D procedures by his PCP of sebaceous cysts on his back in January, and March,. He has been coming to [facility] since March. Various wound care modalities have been tried such as a SNAP VAC, Puroply, and most recently Christie dressing changes. Healing has been slow. Patient is diabetic and his recent HgbA1c was 6.6. He had a recent wound culture on 04/26/18 which showed Staphylococcus epidermidis and he was treated with Doxycycline. Patient takes nutritional supplementation with protein to help the healing process. Patient denies any systemic or local signs of infection at this time. Progress of Wound: Both wounds continue with delayed wound healing without much improvement, without signs of infection either, moderate amount of slough present in wound bed. Patient was recently seen by his PCP and diagnosed with type 2 DM. Plastic surgery was consulted prior and discussed surgical options, patient patient now wishes to undergo surgical excision at this time given the amount of delayed wound healing. - Physical Exam Vital Signs Temp Pulse Resp BP 98.2 F 91 16 119/70 06/07/18 13:20 06/07/18 13:20 06/07/18 13:20 06/07/18 13:20 General: Alert, Oriented x3, Cooperative, No apparent distress HEENT: Atraumatic Oral: Moist Mucosa Lungs: Clear to auscultation Cardiovascular: Regular rate Abdomen: Soft, Non Tender, Obese Extremities: No clubbing, No cyanosis, No edema Skin: Ulcer/ Wound - Wound to right and left thoracic lumbar region with adherent slough to wound bed, slightly erythematous wound edges, serosanguineous drainage, otherwise no purulent drainage or foul smelling discharge at this time Wound Measurements and Assessment WC - Nurse 1 - General Ulcer Measurement Start: 05/21/18 08:08 Freq: Status: Active Protocol: Activity Type Activity Date Activity User E-Sign Co-Sign Detail Recorded Client Recorded Date Recorded By Document 06/07/18 13:20 [facility] [id number] 06/07/18 13:30 [facility] 06/07/18 13:20 Wound Center Nurse 1 [Ulcer Assessment] # 2- RT SCAPULA -Combined with other wound No -Current Size (cm) - Length 2.7 -Current Size (cm) - Width 1.8 -Current Size (cm) - Depth 0.3 -Total Square Cm 4.86 -Photo Taken No -Epithelialization None Present -Tunneling No -Undermining/Tunneling No -Circular Undermining No -Exudate Amt Small -Exudate Type Sanguineous -Wound Margin Thickened -Granulation Amt Large (67-100%) -Granulation Quality Red -Slough/Fibrin Yes -Necrosis Amt Small (1-33%) -Necrotic Tissue Type Adherent Slough -Texture (Mayra-wound Skin Appearance) Scarring -Moisture (Mayra-wound Skin Appearance Assessed ) -Color (Mayra-wound Skin Appearance) Erythema -Temperature (Mayra-wound Skin No Abnormality Appearance) (Pt Warm) -Tenderness on Palpation (Mayra-wound Yes Skin Appearance) -Ulcer Cleansing Rinsed/ Irrigated with Saline -Foul Odor after Cleansing No -Anesthetic Used 4% Lidocaine Solution 5% Lidocaine Gel #1 left lumbar back non healing post surgical -Combined with other wound No -Current Size (cm) - Length 1.2 -Current Size (cm) - Width 1 -Current Size (cm) - Depth 0.3 -Total Square Cm 1.2 -Photo Taken No -Epithelialization None Present -Tunneling No -Undermining/Tunneling No -Circular Undermining No -Exudate Amt Small -Exudate Type Sanguineous -Wound Margin Thickened -Granulation Amt Large (67-100%) -Granulation Quality Red -Slough/Fibrin Yes -Necrosis Amt Small (1-33%) -Necrotic Tissue Type Adherent Slough -Texture (Mayra-wound Skin Appearance) Scarring Rash -Moisture (Mayra-wound Skin Appearance Assessed ) -Color (Mayra-wound Skin Appearance) Erythema -Temperature (Mayra-wound Skin No Abnormality Appearance) (Pt Warm) -Tenderness on Palpation (Mayra-wound Yes Skin Appearance) -Ulcer Cleansing Rinsed/ Irrigated with Saline -Foul Odor after Cleansing No -Anesthetic Used 4% Lidocaine Solution 5% Lidocaine Gel WC - Nurse 2 - General Ulcer CM Notes Start: 05/21/18 08:08 Freq: Status: Active Protocol: Activity Type Activity Date Activity User E-Sign Co-Sign Detail Recorded Client Recorded Date Recorded By Document 06/07/18 14:08 DV [id number] 06/07/18 14:13 DV 06/07/18 14:08 Wound Center Nurse 2 [Procedure/Treatment] # 2- RT SCAPULA -Time 14:09 -Correct Patient Yes -Correct Side, Site, Position Yes -Correct Procedure Yes -Procedure Performed Yes -Type of Procedure Debridement -Clinical Debridement Subcutaneous -Post Debridement Size (cm) - Length 1.2 -Post Debridement Size (cm) - Width 1.1 -Post Debridement Size (cm) - Depth 0.4 -Total Square Cm 1.32 -Wound/Ulcer Outcome Not Healed -Ulcer Cleansing Rinsed/ Irrigated with Saline -Foul Odor after Cleansing No -Bioengineered Tissue No -Bleeding Controlled with Pressure -Offloading No -Treatment Response Procedure Tolerated Well #1 left lumbar back non healing post surgical -Time 14:10 -Correct Patient Yes -Correct Side, Site, Position Yes -Correct Procedure Yes -Procedure Performed Yes -Type of Procedure Debridement -Clinical Debridement Subcutaneous -Post Debridement Size (cm) - Length 3.0 -Post Debridement Size (cm) - Width 1.9 -Post Debridement Size (cm) - Depth 0.2 -Total Square Cm 5.70 -Wound/Ulcer Outcome Not Healed -Ulcer Cleansing Rinsed/ Irrigated with Saline -Foul Odor after Cleansing No -Bioengineered Tissue No -Bleeding Controlled with Pressure -Offloading No -Treatment Response Procedure Tolerated Well [See Physician Procedure note for Specifics] Pain Scale: 0-10 Numeric [Pain] -Is Patient Pain Free? Yes Neurological: Neuro grossly intact Psych/Mental Status: Normal Affect, Appropriate, Alert and oriented to time, place, person, mood and affect Debridement Note Post-Debridement Measurements/Treatment WC - Nurse 2 - General Ulcer CM Notes Start: 05/21/18 08:08 Freq: Status: Active Protocol: Activity Type Activity Date Activity User E-Sign Co-Sign Detail Recorded Client Recorded Date Recorded By Document 05/21/18 09:07 [email or web address] [id number] 05/21/18 09:08 Document 05/24/18 13:51 DV [id number] 05/24/18 13:57 DV Document 05/31/18 15:45 DV [id number] 05/31/18 15:48 DV Document 06/07/18 14:08 DV [id number] 06/07/18 14:13 DV 05/21/18 05/24/18 05/31/18 09:07 13:51 15:45 Wound Center Nurse 2 # 2- RT SCAPULA -Time 13:52 15:45 -Correct Patient No Yes Yes -Correct Side, Site, Position No Yes Yes -Correct Procedure No Yes Yes -Procedure Performed No Yes Yes -Type of Procedure Debridement Debridement -Clinical Debridement Subcutaneous Subcutaneous -Post Debridement Size (cm) - Length 1.0 1.1 -Post Debridement Size (cm) - Width 1.0 1.0 -Post Debridement Size (cm) - Depth 0.5 0.3 -Total Square Cm 1.00 1.10 -Wound/Ulcer Outcome Not Healed Not Healed -Ulcer Cleansing Rinsed/ Rinsed/ Irrigated with Irrigated with Saline Saline -Foul Odor after Cleansing No No -Bioengineered Tissue No No -Bleeding Controlled with Pressure Pressure -Offloading No -Treatment Response Procedure Tolerated Well #1 left lumbar back non healing post surgical -Time 13:54 15:46 -Correct Patient No Yes Yes -Correct Side, Site, Position No Yes Yes -Correct Procedure No Yes Yes -Procedure Performed No Yes Yes -Type of Procedure Debridement Debridement -Clinical Debridement Subcutaneous Subcutaneous -Post Debridement Size (cm) - Length 2.5 2.5 -Post Debridement Size (cm) - Width 1.5 2.0 -Post Debridement Size (cm) - Depth 0.3 0.4 -Total Square Cm 3.75 5.00 -Wound/Ulcer Outcome Not Healed Not Healed -Ulcer Cleansing Rinsed/ Rinsed/ Irrigated with Irrigated with Saline Saline -Foul Odor after Cleansing No No -Bioengineered Tissue No -Bleeding Controlled with Pressure Pressure -Offloading No -Treatment Response Procedure Procedure Tolerated Well Tolerated Well Pain Scale: 0-10 Numeric Is Patient Pain Free? Yes Yes Yes 06/07/18 14:08 Wound Center Nurse 2 # 2- RT SCAPULA -Time 14:09 -Correct Patient Yes -Correct Side, Site, Position Yes -Correct Procedure Yes -Procedure Performed Yes -Type of Procedure Debridement -Clinical Debridement Subcutaneous -Post Debridement Size (cm) - Length 1.2 -Post Debridement Size (cm) - Width 1.1 -Post Debridement Size (cm) - Depth 0.4 -Total Square Cm 1.32 -Wound/Ulcer Outcome Not Healed -Ulcer Cleansing Rinsed/ Irrigated with Saline -Foul Odor after Cleansing No -Bioengineered Tissue No -Bleeding Controlled with Pressure -Offloading No -Treatment Response Procedure Tolerated Well #1 left lumbar back non healing post surgical -Time 14:10 -Correct Patient Yes -Correct Side, Site, Position Yes -Correct Procedure Yes -Procedure Performed Yes -Type of Procedure Debridement -Clinical Debridement Subcutaneous -Post Debridement Size (cm) - Length 3.0 -Post Debridement Size (cm) - Width 1.9 -Post Debridement Size (cm) - Depth 0.2 -Total Square Cm 5.70 -Wound/Ulcer Outcome Not Healed -Ulcer Cleansing Rinsed/ Irrigated with Saline -Foul Odor after Cleansing No -Bioengineered Tissue No -Bleeding Controlled with Pressure -Offloading No -Treatment Response Procedure Tolerated Well Pain Scale: 0-10 Numeric Is Patient Pain Free? Yes Wound debrided: Diabetic wound of right back Laterality: Right Type of Debridement: Excisional debridement Anesthesia Used: 5% Lidocaine Gel Depth: in the subcutaneous layer Percentage of wound debrided: 100 Instrument Used: 5mm curette Tissue Removed: Slough and devitalized tissue Severity: Fat Layer Exposed Amount of bleeding with debridement: Mild Bleeding Controlled with: Pressure Patient tolerated procedure well - Additional Wound Wound debrided: Diabetic wound of left back Laterality: Left Type of Debridement: Excisional debridement Anesthesia Used: 5% Lidocaine Gel Depth: in the subcutaneous layer Percentage of wound debrided: 100 Instrument Used: 5mm curette Tissue Removed: Slough and devitalized tissue Severity: Fat Layer Exposed Amount of bleeding with debridement: Mild Bleeding Controlled with: Pressure Patient tolerated procedure: Patient tolerated procedure well Assessment/Plan Active Problems (Last Reviewed 04/26/18 @ 13:21 by Liliane Santos) Nonhealing surgical wound (Acute) x 2 s/p incision and drainage sebaceous cyst on left and right back Type 2 diabetes mellitus (Acute) Sebaceous cyst (Acute) Hypertension (Chronic) Assessment: 1. Nonhealing diabetic ulcer right lateral middle back. 2. Nonhealing diabetic ulcer left lateral middle back. 3. Diabetes mellitus. Plan: The patient was seen and examined at the wound center today and was updated on the plan of care. A subcutaneous debridement was performed today. The patient tolerated the procedure well. The patients wound care will consist of: application of Christie change daily. Wound cultures were collected today as he wishes to undergo surgical excision given the duration of delayed wound healing and increase in pain which was an option given by a plastic surgery, will also check a BMP prior. Patient educated on the importance of diet on wound healing and instructed to increase protein and vitamin C intake. Patient also encouraged to continue with tight blood glucose control for management of his diabetes. Patient verbalized understanding. Patient will follow up at wound healing center in one week or sooner if needed. This note was generated with [employer] dictation software. It may contain incorrect words, spelling, and punctuation that were not noted in checking the note before signing. Code Visit [id number]: [id number] Pooja subq tissue 20 sq cm/<
[2018-06-07 17:44] LABS: M R Staph aureus DNA By PCR Negative (Negative); Probe Check PASS; Specimen Processing Control PASS; Staph aureus DNA By PCR NEGATIVE (Negative)
[2018-06-07 17:44] LABS: M R Staph aureus DNA By PCR Negative (Negative); Probe Check PASS; Specimen Processing Control PASS; Staph aureus DNA By PCR NEGATIVE (Negative)
--- NOTE | 2018-06-08 16:47 | PN.PCM_ITS ---
(1) Nonhealing surgical wound Status: Acute Current Visit: Yes Code(s): T81.89XA - Other complications of procedures, not elsewhere classified, initial encounter Comment: x 2 s/p incision and drainage sebaceous cyst on left and right back (2) Sebaceous cyst Status: Acute Current Visit: Yes Code(s): L72.3 - Sebaceous cyst (3) Type 2 diabetes mellitus Status: Acute Current Visit: Yes Qualifiers: Code(s): E11.9 - Type 2 diabetes mellitus without complications (4) Hypertension Status: Chronic Current Visit: Yes Code(s): I10 - Essential (primary) hypertension Type of Wound Date of Service: 06/07/18 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: Nonhealing diabetic ulcers left lateral middle back and right lateral middle back. History of Wound: Patient presents today for continued evaluation and treatment of his nonhealing diabetic ulcers right lateral middle back and left lateral middle back. Patient states he had I&D procedures by his PCP of sebaceous cysts on his back in January, and March,. He has been coming to the [facility] since March. Various wound care modalities have been tried such as a SNAP VAC, Puroply, and most recently Christie dressing changes. Healing has been slow. Patient is diabetic and his recent HgbA1c was 6.6. He had a recent wound culture on 04/26/18 which showed Staphylococcus epidermidis and he was treated with Doxycycline. Patient takes nutritional supplementation with protein to help the healing process. Patient denies any systemic or local signs of infection at this time. Progress of Wound: Both wounds continue with delayed wound healing without much improvement, without signs of infection either, moderate amount of slough present in wound bed. Patient was recently seen by his PCP and diagnosed with type 2 DM. Plastic surgery was consulted prior and discussed surgical options, patient patient now wishes to undergo surgical excision at this time given the amount of delayed wound healing. - Physical Exam Vital Signs Temp Pulse Resp BP 98.2 F 91 16 119/70 06/07/18 13:20 06/07/18 13:20 06/07/18 13:20 06/07/18 13:20 General: Alert, Oriented x3, Cooperative, No apparent distress HEENT: Atraumatic Oral: Moist Mucosa Lungs: Clear to auscultation Cardiovascular: Regular rate Abdomen: Soft, Non Tender, Obese Extremities: No clubbing, No cyanosis, No edema Skin: Ulcer/ Wound - Wound to right and left thoracic lumbar region with adherent slough to wound bed, slightly erythematous wound edges, serosanguineous drainage, otherwise no purulent drainage or foul smelling discharge at this time Wound Measurements and Assessment WC - Nurse 1 - General Ulcer Measurement Start: 05/21/18 08:08 Freq: Status: Active Protocol: Activity Type Activity Date Activity User E-Sign Co-Sign Detail Recorded Client Recorded Date Recorded By Document 06/07/18 13:20 [facility] [id number] 06/07/18 13:30 [facility] 06/07/18 13:20 Wound Center Nurse 1 [Ulcer Assessment] # 2- RT SCAPULA -Combined with other wound No -Current Size (cm) - Length 2.7 -Current Size (cm) - Width 1.8 -Current Size (cm) - Depth 0.3 -Total Square Cm 4.86 -Photo Taken No -Epithelialization None Present -Tunneling No -Undermining/Tunneling No -Circular Undermining No -Exudate Amt Small -Exudate Type Sanguineous -Wound Margin Thickened -Granulation Amt Large (67-100%) -Granulation Quality Red -Slough/Fibrin Yes -Necrosis Amt Small (1-33%) -Necrotic Tissue Type Adherent Slough -Texture (Mayra-wound Skin Appearance) Scarring -Moisture (Mayra-wound Skin Appearance Assessed ) -Color (Mayra-wound Skin Appearance) Erythema -Temperature (Mayra-wound Skin No Abnormality Appearance) (Pt Warm) -Tenderness on Palpation (Mayra-wound Yes Skin Appearance) -Ulcer Cleansing Rinsed/ Irrigated with Saline -Foul Odor after Cleansing No -Anesthetic Used 4% Lidocaine Solution 5% Lidocaine Gel #1 left lumbar back non healing post surgical -Combined with other wound No -Current Size (cm) - Length 1.2 -Current Size (cm) - Width 1 -Current Size (cm) - Depth 0.3 -Total Square Cm 1.2 -Photo Taken No -Epithelialization None Present -Tunneling No -Undermining/Tunneling No -Circular Undermining No -Exudate Amt Small -Exudate Type Sanguineous -Wound Margin Thickened -Granulation Amt Large (67-100%) -Granulation Quality Red -Slough/Fibrin Yes -Necrosis Amt Small (1-33%) -Necrotic Tissue Type Adherent Slough -Texture (Mayra-wound Skin Appearance) Scarring Rash -Moisture (Mayra-wound Skin Appearance Assessed ) -Color (Mayra-wound Skin Appearance) Erythema -Temperature (Mayra-wound Skin No Abnormality Appearance) (Pt Warm) -Tenderness on Palpation (Mayra-wound Yes Skin Appearance) -Ulcer Cleansing Rinsed/ Irrigated with Saline -Foul Odor after Cleansing No -Anesthetic Used 4% Lidocaine Solution 5% Lidocaine Gel WC - Nurse 2 - General Ulcer CM Notes Start: 05/21/18 08:08 Freq: Status: Active Protocol: Activity Type Activity Date Activity User E-Sign Co-Sign Detail Recorded Client Recorded Date Recorded By Document 06/07/18 14:08 DV [id number] 06/07/18 14:13 DV 06/07/18 14:08 Wound Center Nurse 2 [Procedure/Treatment] # 2- RT SCAPULA -Time 14:09 -Correct Patient Yes -Correct Side, Site, Position Yes -Correct Procedure Yes -Procedure Performed Yes -Type of Procedure Debridement -Clinical Debridement Subcutaneous -Post Debridement Size (cm) - Length 1.2 -Post Debridement Size (cm) - Width 1.1 -Post Debridement Size (cm) - Depth 0.4 -Total Square Cm 1.32 -Wound/Ulcer Outcome Not Healed -Ulcer Cleansing Rinsed/ Irrigated with Saline -Foul Odor after Cleansing No -Bioengineered Tissue No -Bleeding Controlled with Pressure -Offloading No -Treatment Response Procedure Tolerated Well #1 left lumbar back non healing post surgical -Time 14:10 -Correct Patient Yes -Correct Side, Site, Position Yes -Correct Procedure Yes -Procedure Performed Yes -Type of Procedure Debridement -Clinical Debridement Subcutaneous -Post Debridement Size (cm) - Length 3.0 -Post Debridement Size (cm) - Width 1.9 -Post Debridement Size (cm) - Depth 0.2 -Total Square Cm 5.70 -Wound/Ulcer Outcome Not Healed -Ulcer Cleansing Rinsed/ Irrigated with Saline -Foul Odor after Cleansing No -Bioengineered Tissue No -Bleeding Controlled with Pressure -Offloading No -Treatment Response Procedure Tolerated Well [See Physician Procedure note for Specifics] Pain Scale: 0-10 Numeric [Pain] -Is Patient Pain Free? Yes Neurological: Neuro grossly intact Psych/Mental Status: Normal Affect, Appropriate, Alert and oriented to time, place, person, mood and affect Debridement Note Post-Debridement Measurements/Treatment WC - Nurse 2 - General Ulcer CM Notes Start: 05/21/18 08:08 Freq: Status: Active Protocol: Activity Type Activity Date Activity User E-Sign Co-Sign Detail Recorded Client Recorded Date Recorded By Document 05/21/18 09:07 [facility] [id number] 05/21/18 09:08 Document 05/24/18 13:51 DV [id number] 05/24/18 13:57 DV Document 05/31/18 15:45 DV [id number] 05/31/18 15:48 DV Document 06/07/18 14:08 DV [id number] 06/07/18 14:13 DV 05/21/18 05/24/18 05/31/18 09:07 13:51 15:45 Wound Center Nurse 2 # 2- RT SCAPULA -Time 13:52 15:45 -Correct Patient No Yes Yes -Correct Side, Site, Position No Yes Yes -Correct Procedure No Yes Yes -Procedure Performed No Yes Yes -Type of Procedure Debridement Debridement -Clinical Debridement Subcutaneous Subcutaneous -Post Debridement Size (cm) - Length 1.0 1.1 -Post Debridement Size (cm) - Width 1.0 1.0 -Post Debridement Size (cm) - Depth 0.5 0.3 -Total Square Cm 1.00 1.10 -Wound/Ulcer Outcome Not Healed Not Healed -Ulcer Cleansing Rinsed/ Rinsed/ Irrigated with Irrigated with Saline Saline -Foul Odor after Cleansing No No -Bioengineered Tissue No No -Bleeding Controlled with Pressure Pressure -Offloading No -Treatment Response Procedure Tolerated Well #1 left lumbar back non healing post surgical -Time 13:54 15:46 -Correct Patient No Yes Yes -Correct Side, Site, Position No Yes Yes -Correct Procedure No Yes Yes -Procedure Performed No Yes Yes -Type of Procedure Debridement Debridement -Clinical Debridement Subcutaneous Subcutaneous -Post Debridement Size (cm) - Length 2.5 2.5 -Post Debridement Size (cm) - Width 1.5 2.0 -Post Debridement Size (cm) - Depth 0.3 0.4 -Total Square Cm 3.75 5.00 -Wound/Ulcer Outcome Not Healed Not Healed -Ulcer Cleansing Rinsed/ Rinsed/ Irrigated with Irrigated with Saline Saline -Foul Odor after Cleansing No No -Bioengineered Tissue No -Bleeding Controlled with Pressure Pressure -Offloading No -Treatment Response Procedure Procedure Tolerated Well Tolerated Well Pain Scale: 0-10 Numeric Is Patient Pain Free? Yes Yes Yes 06/07/18 14:08 Wound Center Nurse 2 # 2- RT SCAPULA -Time 14:09 -Correct Patient Yes -Correct Side, Site, Position Yes -Correct Procedure Yes -Procedure Performed Yes -Type of Procedure Debridement -Clinical Debridement Subcutaneous -Post Debridement Size (cm) - Length 1.2 -Post Debridement Size (cm) - Width 1.1 -Post Debridement Size (cm) - Depth 0.4 -Total Square Cm 1.32 -Wound/Ulcer Outcome Not Healed -Ulcer Cleansing Rinsed/ Irrigated with Saline -Foul Odor after Cleansing No -Bioengineered Tissue No -Bleeding Controlled with Pressure -Offloading No -Treatment Response Procedure Tolerated Well #1 left lumbar back non healing post surgical -Time 14:10 -Correct Patient Yes -Correct Side, Site, Position Yes -Correct Procedure Yes -Procedure Performed Yes -Type of Procedure Debridement -Clinical Debridement Subcutaneous -Post Debridement Size (cm) - Length 3.0 -Post Debridement Size (cm) - Width 1.9 -Post Debridement Size (cm) - Depth 0.2 -Total Square Cm 5.70 -Wound/Ulcer Outcome Not Healed -Ulcer Cleansing Rinsed/ Irrigated with Saline -Foul Odor after Cleansing No -Bioengineered Tissue No -Bleeding Controlled with Pressure -Offloading No -Treatment Response Procedure Tolerated Well Pain Scale: 0-10 Numeric Is Patient Pain Free? Yes Wound debrided: Diabetic wound of right back Laterality: Right Type of Debridement: Excisional debridement Anesthesia Used: 5% Lidocaine Gel Depth: in the subcutaneous layer Percentage of wound debrided: 100 Instrument Used: 5mm curette Tissue Removed: Slough and devitalized tissue Severity: Fat Layer Exposed Amount of bleeding with debridement: Mild Bleeding Controlled with: Pressure Patient tolerated procedure well - Additional Wound Wound debrided: Diabetic wound of left back Laterality: Left Type of Debridement: Excisional debridement Anesthesia Used: 5% Lidocaine Gel Depth: in the subcutaneous layer Percentage of wound debrided: 100 Instrument Used: 5mm curette Tissue Removed: Slough and devitalized tissue Severity: Fat Layer Exposed Amount of bleeding with debridement: Mild Bleeding Controlled with: Pressure Patient tolerated procedure: Patient tolerated procedure well Assessment/Plan Active Problems (Last Reviewed 04/26/18 @ 13:21 by Liliane Santos) Nonhealing surgical wound (Acute) x 2 s/p incision and drainage sebaceous cyst on left and right back Type 2 diabetes mellitus (Acute) Sebaceous cyst (Acute) Hypertension (Chronic) Assessment: 1. Nonhealing diabetic ulcer right lateral middle back. 2. Nonhealing diabetic ulcer left lateral middle back. 3. Diabetes mellitus. Plan: The patient was seen and examined at the wound center today and was updated on the plan of care. A subcutaneous debridement was performed today. The patient tolerated the procedure well. The patients wound care will consist of: application of Christie change daily. Wound cultures were collected today as he wishes to undergo surgical excision given the duration of delayed wound healing and increase in pain which was an option given by a plastic surgery, will also check a BMP prior. Patient educated on the importance of diet on wound healing and instructed to increase protein and vitamin C intake. Patient also encouraged to continue with tight blood glucose control for management of his diabetes. Patient verbalized understanding. Patient will follow up at wound healing center in one week or sooner if needed. This note was generated with [employer] dictation software. It may contain incorrect words, spelling, and punctuation that were not noted in checking the note before signing. Code Visit 111xxx-113xx: 48879 Pooja subq tissue 20 sq cm/<
== END 2018-06-14 23:59 ==
LOC: WC 15:22
PROVIDERS: Family Provider Family Medicine; PCP Family Medicine; Referring Provider Nurse Practitioner Family; Visit Provider Nurse Practitioner Family
DX: T81.89XA Other complications of procedures, not elsewhere classified, initial encounter (principal); Y83.8 Other surgical procedures as the cause of abnormal reaction of the patient, or of later complication, without mention of misadventure at the time of the procedure; I10 Essential (primary) hypertension; L72.3 Sebaceous cyst; E11.9 Type 2 diabetes mellitus without complications
CPT/HCPCS: 11042; 87070; 87075; 87077; 87186; 87205; 87640; 99213; G0463

== ENCOUNTER 2018-06-12 11:02 | Day surgery (SDC) | payer OTHER, SELFPAY ==
[2018-06-12] VITALS (8 sets, daily range): BP systolic 92–119; BP diastolic 59–77; PULSE 60–84; RESP 16–18; TEMP 36.6–36.8; O2SAT 94–99; BMI 29.7
--- NOTE | 2018-06-12 12:30 | UL_PTH ---
PATIENT: BILL JACQUES LOC: [facility] [place] U#:[id number] AGE/SX: 57/M ROOM: RE06/12/[address]: Dr. David Lemus MD : 1960 BED: DIS: 06/12/2018 SPEC #: [id number] RECD: 06/13/18 16:19 STATUS: LORAINE REKristyn #: [id number] DELMY: 06/12/18 12:[address]: David Lemus DEPT: SURGICAL PATHOLOGY RECD BY: Jerry Tompkins ENTERED: 06/14/18 12:17 SP TYPE: ULCER OTHR DR: Dr. Ryan Gandhi, DO Tissues: A - Back, NOS B - Back, NOS Procedures: PAS Fungus (control) Special Stain Group I Surgery Specimen Level III AFB Stain (control) HEADER OPERATION: Right and left lateral mid back surgical preparation PRE-OP DIAGNOSIS: Nonhealing diabetic ulcers of right lateral middle back and left lateral middle back TISSUE SUBMITTED: A - Right lateral middle back ulcer, suture at 12 o'clock, B - Left lateral middle back ulcer, suture at 12 o'clock MICROSCOPIC DIAGNOSIS A. Right lateral middle back ulcer: Focal ulceration and associated acute and chronic inflammation and abscess formation. Special stains for acid fast bacilli and fungi are negative for organisms; matched controls are appropriate. B. Left lateral middle back ulcer: Focal ulceration and associated acute and chronic inflammation and abscess formation. Special stains for acid fast bacilli and fungi are negative for organisms; matched controls are appropriate. RIGO:js 06/18/18 MICROSCOPIC DESCRIPTION Slides are reviewed. GROSS DESCRIPTION A - Received in fixative is one container labeled with the patient's name and designated right lateral middle back ulcer, suture at 12 o'clock. The specimen consists of a elvira-shaped piece of sharma-white skin ellipse measuring 3.2 x 3 cm and up to 1 cm in thickness. There is a central area of round ulceration measuring 1 x 1 cm and depth of 0.5 cm. The specimen is inked as follows: 12 to 3 o'clock - black, 3 to 6 o'clock - blue, 6 to 9 o'clock - green and 9 to 12 o'clock - yellow. The entire specimen is submitted in seven cassettes. Cassette 1 contains the 6 and 12 o'clock tips. Sections will be submitted after overnight fixation. B - Received in fixative is one container labeled with the patient's name and designated left lateral middle back ulcer, suture at 12 o'clock. The specimen consists of a elvira-shaped piece of sharma-white skin ellipse measuring 6 x 4.2 x 1.2 cm. The skin surface shows focal area of ulceration measuring 3 x 2 cm. The entire specimen is submitted in 11 cassettes. Cassette 1 contains the 6 and 12 o'clock tips. Sections will be submitted after overnight fixation. / SJ:js 06/14/18 TC:2 CPT: 48773 x2, 59657 x4
[2018-06-12] MEDS: levoFLOXacin IV 500 MG/100 ML BAG 100 MG IV (12:32)
[2018-06-12 12:35] LABS: Bedside Glucose 90 mg/dL (70-110)
[2018-06-12] MEDS: Mupirocin Ointment 22gm Tube 1 APPLIC (13:43)
--- NOTE | 2018-06-12 13:50 | PCM.OPRPT ---
Report of Operation Date of Procedure: 06/12/18 Pre-Operative Diagnosis: 1. 1.2 cm nonhealing diabetic ulcer right lateral middle back. 2. 3 cm nonhealing diabetic ulcer left lateral middle back. 3. Diabetes mellitus. Post-Operative Diagnosis: Same. Surgery/Procedure Performed:: 1. Surgical preparation right lateral middle back with excision 1.2 cm nonhealing diabetic ulcer and rhomboid transposition skin flap reconstruction (18 cm2). 2. Surgical preparation left lateral middle back with excision 3 cm nonhealing diabetic ulcer and rhomboid transpositon skin flap reconstruciton (50 cm2). 3. Diabetes mellitus. Description of Surgical Findings:: Patient presented for evaluation and treatment of his nonhealing diabetic ulcers right lateral middle back and left lateral middle back. Patient states he had I&D procedures by his PCP of sebaceous cysts on his back in January, and March,. He has been coming to the Wound Center since March. Various wound care modalities have been tried such as a SNAP VAC, Puroply, and most recently Christie dressing changes. Healing has been slow. Patient is diabetic and his recent HgbA1c was 6.6. He had a recent wound culture on 04/26/18 which showed Staphylococcus epidermidis and he was treated with Doxycycline. Recent wound culture on 06/07/18 for surgery showed Staphylococcus lugdunensis and Actinomyces odontolyticus. Patient takes nutritional supplementation with protein to help the healing process. 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 Since healing is slow, I was asked to evaluate this patient for surgical options for treatment. Patient was informed of the risks and complications of the procedure including alternatives to surgery. These were discussed with the patient personally. Patient voices understanding and wishes to proceed. Some of the risks and complications were included in a form from the [employer]. Size of defect right lateral middle back - 3 x 3 cm. Size of defect left lateral middle back - 5 x 5 cm. I used Marlin absorbable hemostat. Reference Number - [id number]. Lot Number - [id number]. Expiration - February 11, 2023. recruiting manager: None Type of Anesthesia:: Local MAC - xylocaine with epinephrine and IV sedation. Specimen's removed: 1. Nonhealing diabetic ulcer right lateral middle back to Pathology and Microbiology. 2. Nonhealing diabetic ulcer left lateral middle back to Pathology and Microbiology. Drains: None. Estimated Blood Loss (mL): 20 ml. Description of Procedure: Patient was taken to OR in supine position and was given IV sedation. He was then placed in the prone position. The back was prepped and draped in the usual fashion. SCD's were placed for DVT prophylaxis. Perioperative antibiotics were given intravenously. The nonhealing diabetic ulcers right lateral middle back and left lateral middle back were infiltrated with xylocaine and epinephrine. After waiting 5 minutes for the anesthetic to take effect, I excised both ulcers in a rhomboid fashion with a 1 cm margin in all directions. I proceeded with a 1 cm margin in case carcinoma is present, so the margin would be adequate. A suture was marked at the 12 oclock position for pathology orientation. The ulcerated lesions were sent to Pathology for analysis to rule out carcinoma. The ulcers were excised at the level of the muscular fascia. I also sent a piece of tissue in the ulcerations to Microbiology for culture. A positive culture will necessitate antibiotic therapy. For the right lateral middle back the size of the defect after excision was 3 x 3 cm. For the left lateral middle back the size of the defect after excision was 5 x 5 cm. I designed rhomboid flaps adjacent to the defects. Incisions were made and the flaps were elevated on a subcutaneous pedicle at the level of the muscular fascia. Hemostasis was obtained with electrocautery. The wounds were then sprayed with Marlin absorbable hemostat to minimize seroma formation postop. Both rhomboid flaps were transposed into their defects with minimal tension and minimal distortion. The size of the defect on the right and the size of the flap needed to close the defect was 18 cm2. The size of the defect on the left and the size of the flap needed to close the defect was 50 cm2. The wounds were then closed in a layered fashion with 3-0 Monocryl interrupted sutures for the deep dermis and subcutaneous tissue. The skin was approximated with 3-0 Prolene simple interrupted sutures. Antibiotic ointment was applied to both incisions followed by gauze compression dressing. At the end of the procedure, there was no vascular compromise on the skin flaps. Patient tolerated the procedure well and was sent to PACU in satisfactory condition. Patient will be sent home on antibiotics and pain medication. Patient will followup in a week for a wound check and for discussion of the pathology report and for discussion of the microbiology report and for removal of the sutures. A positive culture may necessitate antibiotic modification. He will be initially discharged home on Augmentin for the preop culture that showed Staphylococcus lugdunensis and Actinomyces odontolyticus. Grafts/Implants Used: None. - Complications None. - Admit VTE Documentation VTE Present on Admission: No VTE Mechan Device Prophylaxis: SCD's VTE Pharm Prophylaxis ordered?: No Code Visit Surgery Charges CPT - 18370 ICD-10 - L98.492, E11.9 13454 L98.492, E11.9 32195 L98.492, E11.9 95095 L98.492, E11.9
--- NOTE | 2018-06-12 13:55 | OP.PCM_ITS ---
Report of Operation Date of Procedure: 06/12/18 Pre-Operative Diagnosis: 1. 1.2 cm nonhealing diabetic ulcer right lateral middle back. 2. 3 cm nonhealing diabetic ulcer left lateral middle back. 3. Diabetes mellitus. Post-Operative Diagnosis: Same. Surgery/Procedure Performed:: 1. Surgical preparation right lateral middle back with excision 1.2 cm nonhealing diabetic ulcer and rhomboid transposition skin flap reconstruction (18 cm2). 2. Surgical preparation left lateral middle back with excision 3 cm nonhealing diabetic ulcer and rhomboid transpositon skin flap reconstruciton (50 cm2). 3. Diabetes mellitus. Description of Surgical Findings:: Patient presented for evaluation and treatment of his nonhealing diabetic ulcers right lateral middle back and left lateral middle back. Patient states he had I&D procedures by his PCP of sebaceous cysts on his back in January, and March,. He has been coming [facility] since March. Various wound care modalities have been tried such as a SNAP VAC, Puroply, and most recently Christie dressing changes. Healing has been slow. Patient is diabetic and his recent HgbA1c was 6.6. He had a recent wound culture on 04/26/18 which showed Staphylococcus epidermidis and he was treated with Doxycycline. Recent wound culture on 06/07/18 for surgery showed Staphylococcus lugdunensis and Actinomyces odontolyticus. Patient takes nutritional supplementation with pr otein to help the healing process. 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 Since healing is slow, I was asked to evaluate this patient for surgical options for treatment. Patient was informed of the risks and complications of the procedure including alternatives to surgery. These were discussed with the patient personally. Patient voices understanding and wishes to proceed. Some of the risks and complications were included in a form from the [employer]. Size of defect right lateral middle back - 3 x 3 cm. Size of defect left lateral middle back - 5 x 5 cm. I used Marlin absorbable hemostat. Reference Number - [id number]. Lot Number - [id number]. Expiration - February 11, 2023. juvenile correctional officer: None Type of Anesthesia:: Local MAC - xylocaine with epinephrine and IV sedation. Specimen's removed: 1. Nonhealing diabetic ulcer right lateral middle back to Pathology and Microbiology. 2. Nonhealing diabetic ulcer left lateral middle back to Pathology and Microbiology. Drains: None. Estimated Blood Loss (mL): 20 ml. Description of Procedure: Patient was taken to OR in supine position and was given IV sedation. He was then placed in the prone position. The back was prepped and draped in the usual fashion. SCD's were placed for DVT prophylaxis. Perioperative antibiotics were given intravenously. The nonhealing diabetic ulcers right lateral middle back and left lateral middle back were infiltrated with xylocaine and epinephrine. After waiting 5 minutes for the anesthetic to take effect, I excised both ulcers in a rhomboid fashion with a 1 cm margin in all directions. I proceeded with a 1 cm margin in case carcinoma is present, so the margin would be adequate. A suture was marked at the 12 oclock position for pathology orientation. The ulcerated lesions were sent to Pathology for analysis to rule out carcinoma. The ulcers were excised at the level of the muscular fascia. I also sent a piece of tissue in the ulcerations to Microbiology for culture. A positive culture will necessitate antibiotic therapy. For the right lateral middle back the size of the defect after excision was 3 x 3 cm. For the left lateral middle back the size of the defect after excision was 5 x 5 cm. I designed rhomboid flaps adjacent to the defects. Incisions were made and the flaps were elevated on a subcutaneous pedicle at the level of the muscular fascia. Hemostasis was obtained with electrocautery. The wounds were then sprayed with Marlin absorbable hemostat to minimize seroma formation postop. Both rhomboid flaps were transposed into their defects with minimal tension and minimal distortion. The size of the defect on the right and the size of the flap needed to close the defect was 18 cm2. The size of the defect on the left and the size of the flap needed to close the defect was 50 cm2. The wounds were then closed in a layered fashion with 3-0 Monocryl interrupted sutures for the deep dermis and subcutaneous tissue. The skin was approximated with 3-0 Prolene simple interrupted sutures. Antibiotic ointment was applied to both incisions followed by gauze compression dressing. At the end of the procedure, there was no vascular compromise on the skin flaps. Patient tolerated the procedure well and was sent to PACU in satisfactory condition. Patient will be sent home on antibiotics and pain medication. Patient will followup in a week for a wound check and for discussion of the pathology report and for discussion of the microbiology report and for removal of the sutures. A positive culture may necessitate antibiotic modification. He will be initially discharged home on Augmentin for the preop culture that showed Staphylococcus lugdunensis and Actinomyces odontolyticus. Grafts/Implants Used: None. - Complications None. - Admit VTE Documentation VTE Present on Admission: No VTE Mechan Device Prophylaxis: SCD's VTE Pharm Prophylaxis ordered?: No Code Visit Surgery Charges CPT - 60973 ICD-10 - L98.492, E11.9 72124 L98.492, E11.9 04589 L98.492, E11.9 51625 L98.492, E11.9
--- NOTE | 2018-06-12 14:00 | PCM.DC ---
You will use the following diet at home:: Calorie/Carbohydrate Controlled (specify 1200, 1400, etc) Discharge Activity: May not drive while taking narcotic pain medications., May Shower - in two days., - - no heavy lifting. May shower in (days): 2 May resume sexual activity in: No Restrictions Weight Bearing Status: Weight bearing as tolerated Lifting Restrictions: 20 lbs. Call your doctor if your incision/area has: Continuous Slow Oozing, Sudden Increased Bleeding, Increased Pain/ Swelling, Increased Redness, Foul Smelling Discharge, Swelling at the incision site Call your doctor if you observe: Fever of 101 or Higher, Coldness, Increased Pain, Shortness of breath, Chest pain, Calf discomfort, Uncontrolled pain Suture Line Care: - - after operative dressing removed in two days, apply antibiotic ointment to suture line daily. Change Dressing in (Days):: 2 Cleanse incision/area with: - - may get incisions wet in the shower in two days. Allergies/Adverse Reactions: Allergies No Known Allergies Allergy (Verified 06/08/18 15:35) Medications to take at Discharge albuterol sulfate HFA 90 mcg/actuation aerosol inhaler 2 puff INHALATION Q6H PRN 11/22/17 diclofenac 1 % topical gel 2 g TOPICAL ONCE 11/29/17 lisinopril 10 mg tablet 10 mg PO DAILY #90 tab 01/30/18 blood sugar diagnostic strips See Dose Instructions .ROUTE .MEDSUPPLY #50 ea 04/06/18 blood-glucose meter kit See Dose Instructions .ROUTE .MEDSUPPLY #1 ea 04/06/18 lancets 28 gauge See Dose Instructions .ROUTE .MEDSUPPLY #50 ea 04/06/18 metformin ER 500 mg tablet,extended release 24hr 500 mg PO QPM #90 tab 04/22/18 0.9% Saline Lock 5 - 15 ml IV UD PRN syringe 06/12/18 Amoxicillin/Potassium Clav [Amox-Clav 875-125 mg Tablet] 1 tab PO BID #28 tab 06/12/18 Lactobacillus Acidophilus/Fos [Acidophilus Probiotic Tablet] 1 ea PO BID #30 tab 06/12/18 Oxycodone HCl/Acetaminophen [Percocet 5/325] 1 - 2 tab PO 4X/DAY PRN PRN 5 Days #40 tab 06/12/18 The following prescriptions were given: Oxycodone HCl/Acetaminophen [Percocet 5/325] 1 - 2 tab PO 4X/DAY PRN PRN 5 Days #40 tab PRN Reason: Pain Amoxicillin/Potassium Clav [Amox-Clav 875-125 mg Tablet] 1 tab PO BID #28 tab Lactobacillus Acidophilus/Fos [Acidophilus Probiotic Tablet] 1 ea PO BID #30 tab Primary Care Physician: Ryan Gandhi DO [Primary Care Provider] - Test Results: Test results from this visit will be discussed in further detail at your follow-up appointment, if applicable. Please Follow Up With: David Lemus MD When: one week. call [phone] for appt. Proposed Discharge Date: 06/12/18
--- NOTE | 2018-06-12 14:03 | DCINST_ITS ---
You will use the following diet at home:: Calorie/Carbohydrate Controlled (specify 1200, 1400, etc) Discharge Activity: May not drive while taking narcotic pain medications., May Shower - in two days., - - no heavy lifting. May shower in (days): 2 May resume sexual activity in: No Restrictions Weight Bearing Status: Weight bearing as tolerated Lifting Restrictions: 20 lbs. Call your doctor if your incision/area has: Continuous Slow Oozing, Sudden Increased Bleeding, Increased Pain/ Swelling, Increased Redness, Foul Smelling Discharge, Swelling at the incision site Call your doctor if you observe: Fever of 101 or Higher, Coldness, Increased Pain, Shortness of breath, Chest pain, Calf discomfort, Uncontrolled pain Suture Line Care: - - after operative dressing removed in two days, apply antibiotic ointment to suture line daily. Change Dressing in (Days):: 2 Cleanse incision/area with: - - may get incisions wet in the shower in two days. Allergies/Adverse Reactions: Allergies No Known Allergies Allergy (Verified 06/08/18 15:35) Medications to take at Discharge albuterol sulfate HFA 90 mcg/actuation aerosol inhaler 2 puff INHALATION Q6H PRN 11/22/17 diclofenac 1 % topical gel 2 g TOPICAL ONCE 11/29/17 lisinopril 10 mg tablet 10 mg PO DAILY #90 tab 01/30/18 blood sugar diagnostic strips See Dose Instructions .ROUTE .MEDSUPPLY #50 ea 04/06/18 blood-glucose meter kit See Dose Instructions .ROUTE .MEDSUPPLY #1 ea 04/06/18 lancets 28 gauge See Dose Instructions .ROUTE .MEDSUPPLY #50 ea 04/06/18 metformin ER 500 mg tablet,extended release 24hr 500 mg PO QPM #90 tab 04/22/18 0.9% Saline Lock 5 - 15 ml IV UD PRN syringe 06/12/18 Amoxicillin/Potassium Clav [Amox-Clav 875-125 mg Tablet] 1 tab PO BID #28 tab 06/12/18 Lactobacillus Acidophilus/Fos [Acidophilus Probiotic Tablet] 1 ea PO BID #30 tab 06/12/18 Oxycodone HCl/Acetaminophen [Percocet 5/325] 1 - 2 tab PO 4X/DAY PRN PRN 5 Days #40 tab 06/12/18 The following prescriptions were given: Oxycodone HCl/Acetaminophen [Percocet 5/325] 1 - 2 tab PO 4X/DAY PRN PRN 5 Days #40 tab PRN Reason: Pain Amoxicillin/Potassium Clav [Amox-Clav 875-125 mg Tablet] 1 tab PO BID #28 tab Lactobacillus Acidophilus/Fos [Acidophilus Probiotic Tablet] 1 ea PO BID #30 tab Primary Care Physician: Ryan Gandhi DO [Primary Care Provider] - Test Results: Test results from this visit will be discussed in further detail at your follow- up appointment, if applicable. Please Follow Up With: David Lemus MD When: one week. call [phone] for appt. Proposed Discharge Date: 06/12/18
[2018-06-12 14:21] LABS: Bedside Glucose 134 mg/dL (70-110)
== END 2018-06-12 15:30 | disposition home or self-care (01) ==
LOC: SDC 11:05 → AC 11:10
PROVIDERS: Family Provider Family Medicine; PCP Family Medicine; Referring Provider Surgery; Visit Provider Surgery
PROC: (CPT 11406; principal; 2018-06-12 12:15)
DX: E11.622 Type 2 diabetes mellitus with other skin ulcer (principal); L98.422 Non-pressure chronic ulcer of back with fat layer exposed; I10 Essential (primary) hypertension; G47.30 Sleep apnea, unspecified; Z79.84 Long term (current) use of oral hypoglycemic drugs; Z79.899 Other long term (current) drug therapy
CPT/HCPCS: 00300; 11406; 15650; 82962; 87015; 87070; 87075; 87077; 87102; 87116; 87186; 87205; 87206; 88304; 88312; J7120; J2405

== ENCOUNTER → 2018-07-09 13:58 | Outpatient (CLI) | payer OTHER, SELFPAY ==
[2018-07-09 11:04] VITALS: BMI 29.5
== END ==
PROVIDERS: Family Provider Family Medicine; PCP Family Medicine; Referring Provider Surgery; Visit Provider Surgery
DX: T81.89XA Other complications of procedures, not elsewhere classified, initial encounter (principal); E11.9 Type 2 diabetes mellitus without complications
CPT/HCPCS: 87070; 87075; 87077; 87186; 87205

== ENCOUNTER 2018-07-18 19:06 | Emergency (ER) | payer OTHER, SELFPAY ==
[2018-07-09 11:04] VITALS: BMI 29.5
[2018-07-18 19:07] VITALS: BP 119/73; PULSE 83; RESP 18; TEMP 36.7; O2SAT 97; BMI 29.7
--- NOTE | 2018-07-18 20:15 | ED.VISSUMM ---
- ER Visit Summary Date of Service: 07/18/18 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: Left calf pain History of Present Illness: The patient is a 58 M nontraumatic left calf pain since this afternoon. No chest pains or shortness of breath. No history of DVT PE. Reports having cyst on his back removed 5 months ago with continued wound care followed by Dr. Lemus. Went to urgent care sent to the ED for evaluation. Physical Examination: General: Alert and oriented ?3, no acute distress HEENT: Normocephalic, atraumatic. Moist mucosa membranes Neck: supple, nontender. Cardiovascular: Regular rate and rhythm, no murmurs Respiratory: Normal breath sounds, symmetric, no distress Abdomen: Soft, nontender, nondistended Extremities: Left leg: No medial thigh tenderness there is calf tenderness with no swelling or asymmetry. DP pulses intact. No edema. Neuro: no focal neurological deficits. Test Results: Left leg ultrasound: Negative for DVT Emergency Department Course and Treatment: Pulses intact distally. Ultrasound left leg negative for DVT. Discussed monitoring symptoms Tylenol or Motrin as needed. Follow-up with PCP. All questions were answered. Treatment Plan: [] Disposition: Discharge Impression: Left calf muscle strain This note was generated with [employer] dictation software. It may contain incorrect words, spelling, and punctuation that were not noted in review of the chart prior to signing ED Disposition - Plan for ED Patient: Disposition: Home or Assisted Living Diagnosis: Left calf muscle strain Instructions: ED Strain Muscle Ext Referrals: Ryan Gandhi DO [Primary Care Provider] - 5-7 Days Additional Instructions: left leg DVT study negative.
--- NOTE | 2018-07-18 20:17 | US_ITS ---
STUDY: VENOUS DOPPLER ULTRASOUND - LEFT LOWER EXTREMITY REASON FOR EXAM: Male, 58 years old. Calf pain. TECHNIQUE: Ultrasound evaluation of the deep vein system to include medina-scale imaging and compression was performed. Medina-scale imaging and Doppler sonographic evaluation, including duplex spectral analysis and qualitative color flow sonography, was performed. COMPARISON: None. FINDINGS: Common Femoral Vein: Normal compression, spontaneity and augmentation. Normal color Doppler. Common Femoral Vein/Greater Saphenous Junction: Normal compression. Femoral Proximal: Normal compression. Femoral Middle: Normal compression, spontaneity and augmentation. Normal color Doppler. Femoral Distal: Normal compression, spontaneity and augmentation. Normal color Doppler. Popliteal Vein: Normal compression, spontaneity and augmentation. Normal color Doppler. Posterior Tibial Vein: Normal compression. Peroneal Vein: Normal compression. US/Venous Duplex Imag/Limited/Uni IMPRESSION: No demonstrated deep vein thrombosis. Electronically Signed: Selina Evans MD at 21:21 EDT Tel , Service support ,
[2018-07-18 21:33] VITALS: BP 115/76; PULSE 83; RESP 12; O2SAT 99
== END 2018-07-18 21:43 | disposition home or self-care (01) ==
PROVIDERS: Emergency Provider Emergency Medicine; Family Provider Family Medicine; PCP Family Medicine
DX: S86.112A Strain of other muscle(s) and tendon(s) of posterior muscle group at lower leg level, left leg, initial encounter (principal); I10 Essential (primary) hypertension; X58.XXXA Exposure to other specified factors, initial encounter; Y93.89 Activity, other specified; Y92.89 Other specified places as the place of occurrence of the external cause; Y99.8 Other external cause status
CPT/HCPCS: 93971; 99282

== ENCOUNTER 2018-07-23 10:17 | Outpatient (RCR) | payer OTHER, SELFPAY ==
[2018-06-15 01:11] VITALS: BMI 33.0
== END 2018-07-23 23:59 | disposition home or self-care (01) ==
LOC: DC 10:17
PROVIDERS: Family Provider Family Medicine; PCP Family Medicine; Referring Provider Internal Medicine; Visit Provider Internal Medicine
DX: E11.9 Type 2 diabetes mellitus without complications (principal); Z71.3 Dietary counseling and surveillance
CPT/HCPCS: 97803

== ENCOUNTER 2018-08-14 13:00 | Outpatient (RCR) | payer OTHER, SELFPAY ==
[2018-07-30 13:58] VITALS: BMI 29.7
[2018-08-06 11:32] VITALS: BP 115/66; PULSE 72; RESP 18; TEMP 36.6; BMI 29.7
--- NOTE | 2018-08-06 13:02 | PN.PCM_ITS ---
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 Comment: Nonhealing ulcers right lateral middle back and left lateral middle back (2) Nonhealing surgical wound Status: Acute Current Visit: Yes Code(s): T81.89XA - Other complications of procedures, not elsewhere classified, initial encounter Comment: right lateral middle back and left lateral middle back after excision of nonhealing diabetic ulcers with skin flap reconstruction (3) Type 2 diabetes mellitus Status: Chronic Current Visit: Yes Qualifiers: Code(s): E11.9 - Type 2 diabetes mellitus without complications Type of Wound Date of Service: 08/06/18 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: Nonhealing diabetic ulcers left lateral middle back and right lateral middle back. History of Wound: Patient presents today for continued evaluation and treatment of his nonhealing diabetic ulcers right lateral middle back and left lateral middle back. Patient states he had I&D procedures by his PCP of sebaceous cysts on his back in January, and March,. He has been coming to the [facility] Center since March. Various wound care modalities have been tried such as a SNAP VAC, Puroply, and most recently Christie dressing changes. Healing has been slow. Patient is diabetic and his recent HgbA1c was 6.6. He had a recent wound culture on 04/26/18 which showed Staphylococcus epidermidis and he was treated with Doxycycline. Patient takes nutritional supplementation with protein to help the healing process. On 06/12/18 Dr. Lemus to to the OR where he underwent surgical preparation right lateral middle back with excision 1.2 cm nonhealing diabetic ulcer and rhomboid transposition skin flap reconstruction (18 cm2) and surgical preparation left lateral middle back with excision 3 cm nonhealing diabetic ulcer and rhomboid transposition skin flap reconstruction (50 cm2). The operative culture of the left grew left lateral middle back ulcer grew Staphylococcus lugdunsis and Staphylococcus epidermidis. He was placed on Augmentin. These flaps opened up and started to drain. A wound culture was done on where the left lateral middle back ulcer grew Staphylococcus haemolyticus. He was placed on Levaquin. Patient denies any fevers or loss of appetite today. Progress of Wound: Right back ulcer is improved. Left ulcer has tunneling. - Physical Exam Vital Signs Temp Pulse Resp BP 97.8 F 72 18 115/66 08/06/18 11:32 08/06/18 11:32 08/06/18 11:32 08/06/18 11:32 General: Alert, Oriented x3, Cooperative HEENT: Atraumatic Oral: Moist Mucosa Lungs: Normal air movement Cardiovascular: Regular rate Extremities: No edema, Capillary Refill Less than 3 Seconds, Peripheral Pulses Normal Skin: Ulcer/ Wound - Left middle back ulcer and right middle back ulcer. Wound Measurements and Assessment WC - Nurse 1 - General Ulcer Measurement Start: 08/06/18 11:31 Freq: Status: Active Protocol: Activity Type Activity Date Activity User E-Sign Co-Sign Detail Recorded Client Recorded Date Recorded By Document 08/06/18 11:32 DL [id number] 08/06/18 11:44 DL 08/06/18 11:32 [facility] Center Nurse 1 [Ulcer Assessment] # 2- RT SCAPULA -Current Size (cm) - Length 0.2 -Current Size (cm) - Width 0.3 -Current Size (cm) - Depth 0.1 -Total Square Cm 0.06 -Photo Taken Yes -Exudate Amt None Present -Wound Margin Flat & Intact -Granulation Amt Small (1-33%) -Granulation Quality [place] -Necrosis Amt None Present (0 %) -Structure Exposed N/A -Texture (Mayra-wound Skin Appearance) Scarring -Moisture (Mayra-wound Skin Appearance No Abnormality ) -Color (Mayra-wound Skin Appearance) No Abnormality -Temperature (Mayra-wound Skin No Abnormality Appearance) (Pt Warm) -Tenderness on Palpation (Mayra-wound No Skin Appearance) -Ulcer Cleansing Wound Cleanser -Foul Odor after Cleansing No -Anesthetic Used 5% Lidocaine Gel #1 left lumbar back non healing post surgical -Current Size (cm) - Length 5 -Current Size (cm) - Width 3.4 -Current Size (cm) - Depth 0.2 -Total Square Cm 17.0 -Photo Taken Yes -Undermining/Tunneling Starts (O' 11 clock) -Undermining/Tunneling Ends (O'clock) 12 -Maximum Distance (cm) 2 -Exudate Amt Small -Exudate Type Serosanguineous -Wound Margin Distinct, Outline Attached -Granulation Amt Large (67-100%) -Granulation Quality [place] -Necrosis Amt Small (1-33%) -Necrotic Tissue Type Adherent Slough -Structure Exposed N/A -Texture (Mayra-wound Skin Appearance) Scarring -Moisture (Mayra-wound Skin Appearance No Abnormality ) -Color (Mayra-wound Skin Appearance) Rubor -Temperature (Mayra-wound Skin No Abnormality Appearance) (Pt Warm) -Tenderness on Palpation (Mayra-wound No Skin Appearance) -Ulcer Cleansing Wound Cleanser -Foul Odor after Cleansing No -Anesthetic Used 4% Lidocaine Solution WC - Nurse 2 - General Ulcer CM Notes Start: 08/06/18 11:31 Freq: Status: Active Protocol: Activity Type Activity Date Activity User E-Sign Co-Sign Detail Recorded Client Recorded Date Recorded By Document 08/06/18 12:13 [email or web address] [id number] 08/06/18 12:24 [facility] 08/06/18 12:13 [facility] Center Nurse 2 [Procedure/Treatment] # 2- RT SCAPULA -Time 12:14 -Correct Patient Yes -Correct Side, Site, Position Yes -Correct Procedure Yes -Procedure Performed Yes -Type of Procedure Debridement -Clinical Debridement Subcutaneous -Post Debridement Size (cm) - Length 0.5 -Post Debridement Size (cm) - Width 1.0 -Post Debridement Size (cm) - Depth 0.2 -Total Square Cm 0.50 -Wound/Ulcer Outcome Not Healed -Ulcer Cleansing Rinsed/ Irrigated with Saline -Foul Odor after Cleansing No -Bioengineered Tissue No -Bleeding Controlled with Pressure -Offloading No -Treatment Response Procedure Tolerated Well #1 left lumbar back non healing post surgical -Time 12:14 -Correct Patient Yes -Correct Side, Site, Position Yes -Correct Procedure Yes -Procedure Performed Yes -Type of Procedure Debridement -Clinical Debridement Subcutaneous -Post Debridement Size (cm) - Length 5 -Post Debridement Size (cm) - Width 3 -Post Debridement Size (cm) - Depth 0.2 -Total Square Cm 15 -Wound/Ulcer Outcome Not Healed -Ulcer Cleansing Rinsed/ Irrigated with Saline -Foul Odor after Cleansing No -Bioengineered Tissue No -Bleeding Controlled with Pressure -Offloading No -Treatment Response Procedure Tolerated Well [See Physician Procedure note for Specifics] Pain Scale: 0-10 Numeric [Pain] -Is Patient Pain Free? Yes Musculoskeletal: No Tenderness to Palpation of Joints or Extremities Neurological: Neuro grossly intact Psych/Mental Status: Normal Affect, Appropriate Debridement Note Post-Debridement Measurements/Treatment WC - Nurse 2 - General Ulcer CM Notes Start: 08/06/18 11:31 Freq: Status: Active Protocol: Activity Type Activity Date Activity User E-Sign Co-Sign Detail Recorded Client Recorded Date Recorded By Document 08/06/18 12:13 [facility] [id number] 08/06/18 12:24 [facility] 08/06/18 12:13 [facility] Center Nurse 2 # 2- RT SCAPULA -Time 12:14 -Correct Patient Yes -Correct Side, Site, Position Yes -Correct Procedure Yes -Procedure Performed Yes -Type of Procedure Debridement -Clinical Debridement Subcutaneous -Post Debridement Size (cm) - Length 0.5 -Post Debridement Size (cm) - Width 1.0 -Post Debridement Size (cm) - Depth 0.2 -Total Square Cm 0.50 -Wound/Ulcer Outcome Not Healed -Ulcer Cleansing Rinsed/ Irrigated with Saline -Foul Odor after Cleansing No -Bioengineered Tissue No -Bleeding Controlled with Pressure -Offloading No -Treatment Response Procedure Tolerated Well #1 left lumbar back non healing post surgical -Time 12:14 -Correct Patient Yes -Correct Side, Site, Position Yes -Correct Procedure Yes -Procedure Performed Yes -Type of Procedure Debridement -Clinical Debridement Subcutaneous -Post Debridement Size (cm) - Length 5 -Post Debridement Size (cm) - Width 3 -Post Debridement Size (cm) - Depth 0.2 -Total Square Cm 15 -Wound/Ulcer Outcome Not Healed -Ulcer Cleansing Rinsed/ Irrigated with Saline -Foul Odor after Cleansing No -Bioengineered Tissue No -Bleeding Controlled with Pressure -Offloading No -Treatment Response Procedure Tolerated Well Pain Scale: 0-10 Numeric Is Patient Pain Free? Yes Wound debrided: Right middle back ulcer Laterality: Right Type of Debridement: Excisional debridement Anesthesia Used: 4% Lidocaine Solution Depth: Down to and including healthy tissue, in the subcutaneous layer Percentage of wound debrided: 100 Instrument Used: 7mm curette Tissue Removed: Subcutaneous tissue and slough Severity: Fat Layer Exposed Amount of bleeding with debridement: Mild Bleeding Controlled with: Compression and gauze Patient tolerated procedure well - Additional Wound Wound debrided: Left middle back ulcer Laterality: Left Type of Debridement: Excisional debridement Anesthesia Used: 4% Lidocaine Solution Depth: Down to and including healthy tissue, in the subcutaneous layer Percentage of wound debrided: 100 Instrument Used: 5mm curette Tissue Removed: Subcutaneous tissue and slough Severity: Fat Layer Exposed Amount of bleeding with debridement: Mild Bleeding Controlled with: Pressure Patient tolerated procedure: Patient tolerated procedure well Assessment/Plan Active Problems (Last Reviewed 07/05/18 @ 16:08 by Ryan Gandhi DO) Non-pressure chronic ulcer of skin of other sites with fat layer exposed (Chronic) Nonhealing ulcers right lateral middle back and left lateral middle back Nonhealing surgical wound (Acute) right lateral middle back and left lateral middle back after excision of nonhealing diabetic ulcers with skin flap reconstruction Type 2 diabetes mellitus (Chronic) Assessment: 1. Nonhealing diabetic ulcer right lateral middle back. 2. Nonhealing diabetic ulcer left lateral middle back. 3. Diabetes mellitus. Plan: The patient was seen and examined at the wound center today and was updated on the plan of care. A subcutaneous debridement was performed today. The patient tolerated the procedure well. The patients wound care will consist of: right middle back will continue the aquacel silver dressing changes daily. The left middle back will apply for SNAP vac to the ulcer. Unti it is approved, we will continue aquacel silver until approved. He will follow up in one week. Code Visit 22507
[2018-08-09 09:07] VITALS: BP 115/72; PULSE 71; RESP 18; TEMP 36.3; BMI 29.7
--- NOTE | 2018-08-09 09:34 | WC ---
pt states a nurse called him yesterday and stated snap was approved. L lumbar wounds window paned with drape and snap applied
[2018-08-14 13:03] VITALS: BP 116/84; PULSE 97; RESP 16; TEMP 36.4; BMI 29.7
--- NOTE | 2018-08-14 17:03 | PCM.WC.PN ---
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 Comment: Nonhealing ulcers right lateral middle back and left lateral middle back (2) Type 2 diabetes mellitus Status: Chronic Qualifiers: Code(s): E11.9 - Type 2 diabetes mellitus without complications Type of Wound Date of Service: 08/14/18 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: Nonhealing diabetic ulcers left lateral middle back and right lateral middle back. History of Wound: Patient presents today for continued evaluation and treatment of his nonhealing diabetic ulcers right lateral middle back and left lateral middle back. Patient states he had I&D procedures by his PCP of sebaceous cysts on his back in January, and March,. He has been coming to [facility] since March. Various wound care modalities have been tried such as a SNAP VAC, Puroply, and most recently Christie dressing changes. Healing has been slow. Patient is diabetic and his recent HgbA1c was 6.6. Patient takes nutritional supplementation with protein to help the healing process. On 06/12/18 Dr. Lemus to to the OR where he underwent surgical preparation right lateral middle back with excision 1.2 cm nonhealing diabetic ulcer and rhomboid transposition skin flap reconstruction (18 cm2) and surgical preparation left lateral middle back with excision 3 cm nonhealing diabetic ulcer and rhomboid transposition skin flap reconstruction (50 cm2). The operative culture of the left grew left lateral middle back ulcer grew Staphylococcus lugdunsis and Staphylococcus epidermidis. He was placed on Augmentin. These flaps opened up and started to drain. A wound culture was done on where the left lateral middle back ulcer grew Staphylococcus haemolyticus. He was placed on Levaquin. Restarted the SNAP VAC to the left back ulcer. Using aquacel silver to the right back ulcer. Patient denies any fevers or loss of appetite today. Progress of Wound: Right back ulcer and left back ulcer have both improved. - Physical Exam Vital Signs Temp Pulse Resp BP 97.5 F L 97 16 116/84 H 08/14/18 13:03 08/14/18 13:03 08/14/18 13:03 08/14/18 13:03 General: Alert, Oriented x3, Cooperative HEENT: Atraumatic Oral: Moist Mucosa Lungs: Normal air movement Cardiovascular: Regular rate Extremities: No edema, Capillary Refill Less than 3 Seconds, Peripheral Pulses Normal Skin: Ulcer/ Wound - Left middle back and right middle back uclers Wound Measurements and Assessment WC - Nurse 1 - General Ulcer Measurement Start: 08/06/18 11:31 Freq: Status: Active Protocol: Activity Type Activity Date Activity User E-Sign Co-Sign Detail Recorded Client Recorded Date Recorded By Document 08/14/18 13:03 MW [id number] 08/14/18 13:15 MW 08/14/18 13:03 Wound Center Nurse 1 [Ulcer Assessment] # 3- RT SCAPULA cluster -Combined with other wound No -Current Size (cm) - Length 0.1 -Current Size (cm) - Width 0.1 -Current Size (cm) - Depth 0.1 -Total Square Cm 0.01 -Photo Taken No -Epithelialization Large 67-100% -Tunneling No -Undermining/Tunneling No -Circular Undermining No -Exudate Amt None Present -Wound Margin Flat & Intact -Granulation Amt None Present (0 %) -Granulation Quality N/A -Slough/Fibrin Yes -Necrosis Amt Small (1-33%) -Necrotic Tissue Type Adherent Slough -Structure Exposed N/A -Texture (Mayra-wound Skin Appearance) Assessed Scarring -Moisture (Mayra-wound Skin Appearance Assessed ) Dry/Scaly -Color (Mayra-wound Skin Appearance) No Abnormality Assessed -Temperature (Mayra-wound Skin No Abnormality Appearance) (Pt Warm) -Tenderness on Palpation (Mayra-wound No Skin Appearance) -Ulcer Cleansing soap and water -Anesthetic Used 5% Lidocaine Gel #4 left lumbar back non healing post surgical -Combined with other wound No -Current Size (cm) - Length 5.0 -Current Size (cm) - Width 4.0 -Current Size (cm) - Depth 0.4 -Total Square Cm 20.00 -Photo Taken No -Epithelialization Small 1-33% -Tunneling No -Undermining/Tunneling No -Circular Undermining No -Exudate Amt Medium -Exudate Type Serosanguineous -Wound Margin Flat & Intact -Granulation Amt Medium (34-66%) -Granulation Quality [place] -Slough/Fibrin Yes -Necrosis Amt Small (1-33%) -Necrotic Tissue Type Adherent Slough -Structure Exposed N/A -Texture (Mayra-wound Skin Appearance) Assessed Scarring -Moisture (Mayra-wound Skin Appearance No Abnormality ) Assessed -Color (Mayra-wound Skin Appearance) No Abnormality Assessed -Temperature (Mayra-wound Skin No Abnormality Appearance) (Pt Warm) -Tenderness on Palpation (Mayra-wound Yes Skin Appearance) -Ulcer Cleansing soap and water -Foul Odor after Cleansing No -Anesthetic Used 5% Lidocaine Gel [Edema Assessment] -Lower Limb Edema Present No WC - Nurse 2 - General Ulcer CM Notes Start: 08/06/18 11:31 Freq: Status: Active Protocol: Activity Type Activity Date Activity User E-Sign Co-Sign Detail Recorded Client Recorded Date Recorded By Document 08/14/18 13:26 [facility] [id number] 08/14/18 13:30 [facility] 08/14/18 13:26 Wound Center Nurse 2 [Procedure/Treatment] # 3- RT SCAPULA cluster -Time 13:29 -Correct Patient Yes -Correct Side, Site, Position Yes -Correct Procedure Yes -Procedure Performed Yes -Type of Procedure Debridement -Clinical Debridement Subcutaneous -Post Debridement Size (cm) - Length 1.7 -Post Debridement Size (cm) - Width 0.7 -Post Debridement Size (cm) - Depth 0.2 -Total Square Cm 1.19 -Wound/Ulcer Outcome Not Healed -Ulcer Cleansing Rinsed/ Irrigated with Saline -Foul Odor after Cleansing No -Bioengineered Tissue No -Bleeding Controlled with Pressure -Offloading No -Treatment Response Procedure Tolerated Well #4 left lumbar back non healing post surgical -Time 13:27 -Correct Patient Yes -Correct Side, Site, Position Yes -Correct Procedure Yes -Procedure Performed Yes -Type of Procedure Debridement -Clinical Debridement Subcutaneous -Post Debridement Size (cm) - Length 5 -Post Debridement Size (cm) - Width 3 -Post Debridement Size (cm) - Depth 0.5 -Total Square Cm 15 -Wound/Ulcer Outcome Not Healed -Ulcer Cleansing Rinsed/ Irrigated with Saline -Foul Odor after Cleansing No -Bioengineered Tissue No -Bleeding Controlled with Pressure -Other 9:00-4.6/ 12:00 -1.4cm/ 2:00--3 .5cm -Offloading No -Treatment Response Procedure Tolerated Well [See Physician Procedure note for Specifics] Pain Scale: 0-10 Numeric [Pain] -Is Patient Pain Free? Yes Musculoskeletal: No Tenderness to Palpation of Joints or Extremities Neurological: Neuro grossly intact Psych/Mental Status: Normal Affect, Appropriate Debridement Note Post-Debridement Measurements/Treatment WC - Nurse 2 - General Ulcer CM Notes Start: 08/06/18 11:31 Freq: Status: Active Protocol: Activity Type Activity Date Activity User E-Sign Co-Sign Detail Recorded Client Recorded Date Recorded By Document 08/06/18 12:13 [id number] 08/06/18 12:24 Document 08/14/18 13:26 [id number] 08/14/18 13:30 08/06/18 08/14/18 12:13 13:26 Wound Center Nurse 2 # 3- RT SCAPULA cluster -Time 12:14 13:29 -Correct Patient Yes Yes -Correct Side, Site, Position Yes Yes -Correct Procedure Yes Yes -Procedure Performed Yes Yes -Type of Procedure Debridement Debridement -Clinical Debridement Subcutaneous Subcutaneous -Post Debridement Size (cm) - Length 0.5 1.7 -Post Debridement Size (cm) - Width 1.0 0.7 -Post Debridement Size (cm) - Depth 0.2 0.2 -Total Square Cm 0.50 1.19 -Wound/Ulcer Outcome Not Healed Not Healed -Ulcer Cleansing Rinsed/ Rinsed/ Irrigated with Irrigated with Saline Saline -Foul Odor after Cleansing No No -Bioengineered Tissue No No -Bleeding Controlled with Pressure Pressure -Offloading No No -Treatment Response Procedure Procedure Tolerated Well Tolerated Well #4 left lumbar back non healing post surgical -Time 12:14 13:27 -Correct Patient Yes Yes -Correct Side, Site, Position Yes Yes -Correct Procedure Yes Yes -Procedure Performed Yes Yes -Type of Procedure Debridement Debridement -Clinical Debridement Subcutaneous Subcutaneous -Post Debridement Size (cm) - Length 5 5 -Post Debridement Size (cm) - Width 3 3 -Post Debridement Size (cm) - Depth 0.2 0.5 -Total Square Cm 15 15 -Wound/Ulcer Outcome Not Healed Not Healed -Ulcer Cleansing Rinsed/ Rinsed/ Irrigated with Irrigated with Saline Saline -Foul Odor after Cleansing No No -Bioengineered Tissue No No -Bleeding Controlled with Pressure Pressure -Other 9:00-4.6/ 12:00 -1.4cm/ 2:00--3 .5cm -Offloading No No -Treatment Response Procedure Procedure Tolerated Well Tolerated Well Pain Scale: 0-10 Numeric Is Patient Pain Free? Yes Yes Wound debrided: Left middle back Type of Debridement: Excisional debridement Anesthesia Used: 5% Lidocaine Gel Depth: Down to and including healthy tissue, in the subcutaneous layer Percentage of wound debrided: 100 Instrument Used: 5mm curette Tissue Removed: Subcutaneous tissue and slough Severity: Fat Layer Exposed Amount of bleeding with debridement: Mild Bleeding Controlled with: Pressure Patient tolerated procedure well - Additional Wound Wound debrided: Right middle back Laterality: Right Type of Debridement: Excisional debridement Anesthesia Used: 5% Lidocaine Gel Depth: Down to and including healthy tissue, in the subcutaneous layer Percentage of wound debrided: 100 Instrument Used: 5mm curette Tissue Removed: Subcutaneous tissue and slough Severity: Fat Layer Exposed Amount of bleeding with debridement: Mild Bleeding Controlled with: Pressure Patient tolerated procedure: Patient tolerated procedure well Assessment/Plan Assessment: 1. Nonhealing diabetic ulcer right lateral middle back. 2. Nonhealing diabetic ulcer left lateral middle back. 3. Diabetes mellitus. Plan: The patient was seen and examined at the wound center today and was updated on the plan of care. A subcutaneous debridement was performed today. The patient tolerated the procedure well. The patients wound care will consist of: right middle back will continue the aquacel silver dressing changes daily. The left middle back will apply for SNAP vac to the ulcer. There has been improvement with the left back ulcer in the tunneling/undermining. Encouraged high protein intake to help with wound healing. He will follow up in one week. Code Visit [id number]
== END 2018-08-14 23:59 ==
LOC: WC 13:00
PROVIDERS: Family Provider Family Medicine; PCP Family Medicine; Visit Provider Surgery
DX: E11.622 Type 2 diabetes mellitus with other skin ulcer (principal); L98.422 Non-pressure chronic ulcer of back with fat layer exposed
CPT/HCPCS: 11042; 97607; 99212; G0463

== ENCOUNTER 2018-09-03 15:00 | Outpatient (RCR) | payer OTHER, SELFPAY ==
[2018-08-15 01:56] VITALS: BP 116/84; PULSE 97; RESP 16; TEMP 36.4
[2018-08-17 09:43] VITALS: BP 109/65; PULSE 84; RESP 16; TEMP 36.1; BMI 29.7
[2018-08-20 14:22] VITALS: BP 104/46; PULSE 67; RESP 18; TEMP 36.6; BMI 29.7
--- NOTE | 2018-08-20 16:27 | PN.PCM_ITS ---
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 Comment: Nonhealing ulcers right lateral middle back and left lateral middle back (2) Nonhealing surgical wound Status: Chronic Current Visit: Yes Code(s): T81.89XA - Other complications of procedures, not elsewhere classified, initial encounter Comment: right lateral middle back and left lateral middle back after excision of nonhealing di abetic ulcers with skin flap reconstruction (3) Type 2 diabetes mellitus Status: Chronic Current Visit: Yes Qualifiers: Code(s): E11.9 - Type 2 diabetes mellitus without complications Type of Wound Date of Service: 08/20/18 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: Nonhealing diabetic ulcers left lateral middle back and right lateral middle back. History of Wound: Patient presents today for continued evaluation and treatment of his nonhealing diabetic ulcers right lateral middle back and left lateral middle back. Patient states he had I&D procedures by his PCP of sebaceous cysts on his back in January, and March,. He has been coming to the Wound Center since March. Various wound care modalities have been tried such as a SNAP VAC, Puroply, and most recently Christie dressing changes. Healing has been slow. Patient is diabetic and his recent HgbA1c was 6.6. He had a recent wound culture on 04/26/18 which showed Staphylococcus epidermidis and he was treated with Doxycycline. Patient takes nutritional supplementation with protein to help the healing process. On 06/12/18 Dr. Lemus to to the OR where he underwent surgical preparation right lateral middle back with excision 1.2 cm nonhealing diabetic ulcer and rhomboid transposition skin flap reconstruction (18 cm2) and surgical preparation left lateral middle back with excision 3 cm nonhealing diabetic ulcer and rhomboid transposition skin flap reconstruction (50 cm2). The operative culture of the left grew left lateral middle back ulcer grew Staphylococcus lugdunsis and Staphylococcus epidermidis. He was placed on Augmentin. These flaps opened up and started to drain. A wound culture was done on where the left lateral middle back ulcer grew Staphylococcus haemolyticus. He was placed on Levaquin. Patient denies any fevers or loss of appetite today. Progress of Wound: Right back ulcer has improved and is almost healed. Left ulcer is improving and the tunneling is decreasing. - Physical Exam Vital Signs Temp Pulse Resp BP 97.8 F 67 18 104/46 L 08/20/18 14:22 08/20/18 14:22 08/20/18 14:22 08/20/18 14:22 General: Alert, Oriented x3, Cooperative HEENT: Atraumatic Oral: Moist Mucosa Cardiovascular: Regular rate Extremities: No edema, Capillary Refill Less than 3 Seconds Skin: Ulcer/ Wound - Left back ulcer has tunneling but is improving, right back ulcer is almost healed. Wound Measurements and Assessment WC - Nurse 1 - General Ulcer Measurement Start: 08/17/18 09:43 Freq: Status: Active Protocol: Activity Type Activity Date Activity User E-Sign Co-Sign Detail Recorded Client Recorded Date Recorded By Document 08/20/18 14:22 DL [id number] 08/20/18 14:38 DL 08/20/18 14:22 Wound Center Nurse 1 [Ulcer Assessment] # 3- RT SCAPULA cluster -Current Size (cm) - Length 0 -Current Size (cm) - Width 0 -Current Size (cm) - Depth 0 -Total Square Cm 0 -Photo Taken Yes -Exudate Amt None Present -Wound Margin Flat & Intact -Granulation Amt Large (67-100%) -Granulation Quality [place] -Necrosis Amt None Present (0 %) -Structure Exposed N/A -Texture (Mayra-wound Skin Appearance) Scarring -Moisture (Mayra-wound Skin Appearance No Abnormality ) -Color (Mayra-wound Skin Appearance) No Abnormality -Temperature (Mayra-wound Skin No Abnormality Appearance) (Pt Warm) -Tenderness on Palpation (Mayra-wound No Skin Appearance) -Ulcer Cleansing Wound Cleanser -Foul Odor after Cleansing No #4 left lumbar back non healing post surgical -Current Size (cm) - Length 5.5 -Current Size (cm) - Width 3 -Current Size (cm) - Depth 0.2 -Total Square Cm 16.5 -Photo Taken No -Tunneling Position (O'clock) 12 -Tunneling Distance (cm) 1 -Exudate Amt Small -Exudate Type Serosanguineous -Wound Margin Distinct, Outline Attached -Granulation Amt Large (67-100%) -Granulation Quality Red -Necrosis Amt None Present (0 %) -Structure Exposed N/A -Texture (Mayra-wound Skin Appearance) Scarring -Moisture (Mayra-wound Skin Appearance No Abnormality ) -Color (Mayra-wound Skin Appearance) No Abnormality -Temperature (Mayra-wound Skin No Abnormality Appearance) (Pt Warm) -Tenderness on Palpation (Mayra-wound No Skin Appearance) -Ulcer Cleansing Wound Cleanser -Foul Odor after Cleansing No -Anesthetic Used 4% Lidocaine Solution WC - Nurse 2 - General Ulcer CM Notes Start: 08/17/18 09:43 Freq: Status: Active Protocol: Activity Type Activity Date Activity User E-Sign Co-Sign Detail Recorded Client Recorded Date Recorded By Document 08/20/18 15:12 [facility] [id number] 08/20/18 15:16 [facility] 08/20/18 15:12 Wound Center Nurse 2 [Procedure/Treatment] # 3- RT SCAPULA cluster -Time 15:12 -Correct Patient Yes -Correct Side, Site, Position Yes -Correct Procedure Yes -Procedure Performed Yes -Type of Procedure Debridement -Clinical Debridement Subcutaneous -Post Debridement Size (cm) - Length 2 -Post Debridement Size (cm) - Width 1 -Post Debridement Size (cm) - Depth 0.1 -Total Square Cm 2 -Wound/Ulcer Outcome Not Healed -Ulcer Cleansing Rinsed/ Irrigated with Saline -Foul Odor after Cleansing No -Bioengineered Tissue No -Bleeding Controlled with Pressure -Offloading No -Treatment Response Procedure Tolerated Well #4 left lumbar back non healing post surgical -Time 15:13 -Correct Patient Yes -Correct Side, Site, Position Yes -Correct Procedure Yes -Procedure Performed Yes -Type of Procedure Debridement -Clinical Debridement Subcutaneous -Post Debridement Size (cm) - Length 4.5 -Post Debridement Size (cm) - Width 6 -Post Debridement Size (cm) - Depth 1.1 -Total Square Cm 27.0 -Wound/Ulcer Outcome Not Healed -Ulcer Cleansing Rinsed/ Irrigated with Saline -Foul Odor after Cleansing No -Bioengineered Tissue No -Bleeding Controlled with Pressure -Other 9:00-2.2cm/12: 00-1.1cm/ 2:00- 2.1cm -Offloading No -Treatment Response Procedure Tolerated Well [See Physician Procedure note for Specifics] Pain Scale: 0-10 Numeric [Pain] -Is Patient Pain Free? Yes Musculoskeletal: No Tenderness to Palpation of Joints or Extremities Neurological: Neuro grossly intact Psych/Mental Status: Normal Affect, Appropriate Debridement Note Post-Debridement Measurements/Treatment WC - Nurse 2 - General Ulcer CM Notes Start: 08/17/18 09:43 Freq: Status: Active Protocol: Activity Type Activity Date Activity User E-Sign Co-Sign Detail Recorded Client Recorded Date Recorded By Document 08/20/18 15:12 [facility] [id number] 08/20/18 15:16 [facility] 08/20/18 15:12 Wound Center Nurse 2 # 3- RT SCAPULA cluster -Time 15:12 -Correct Patient Yes -Correct Side, Site, Position Yes -Correct Procedure Yes -Procedure Performed Yes -Type of Procedure Debridement -Clinical Debridement Subcutaneous -Post Debridement Size (cm) - Length 2 -Post Debridement Size (cm) - Width 1 -Post Debridement Size (cm) - Depth 0.1 -Total Square Cm 2 -Wound/Ulcer Outcome Not Healed -Ulcer Cleansing Rinsed/ Irrigated with Saline -Foul Odor after Cleansing No -Bioengineered Tissue No -Bleeding Controlled with Pressure -Offloading No -Treatment Response Procedure Tolerated Well #4 left lumbar back non healing post surgical -Time 15:13 -Correct Patient Yes -Correct Side, Site, Position Yes -Correct Procedure Yes -Procedure Performed Yes -Type of Procedure Debridement -Clinical Debridement Subcutaneous -Post Debridement Size (cm) - Length 4.5 -Post Debridement Size (cm) - Width 6 -Post Debridement Size (cm) - Depth 1.1 -Total Square Cm 27.0 -Wound/Ulcer Outcome Not Healed -Ulcer Cleansing Rinsed/ Irrigated with Saline -Foul Odor after Cleansing No -Bioengineered Tissue No -Bleeding Controlled with Pressure -Other 9:00-2.2cm/12: 00-1.1cm/ 2:00- 2.1cm -Offloading No -Treatment Response Procedure Tolerated Well Pain Scale: 0-10 Numeric Is Patient Pain Free? Yes Wound debrided: Right back Type of Debridement: Excisional debridement Anesthesia Used: 5% Lidocaine Gel Depth: Down to and including healthy tissue, in the subcutaneous layer Percentage of wound debrided: 100 Instrument Used: 3mm curette Tissue Removed: Subcutaneous tissue and slough Severity: Limited To Skin Breakdown Amount of bleeding with debridement: Mild Bleeding Controlled with: Pressure Patient tolerated procedure well - Additional Wound Wound debrided: Left back Laterality: Left Type of Debridement: Excisional debridement Anesthesia Used: 5% Lidocaine Gel Depth: Down to and including healthy tissue, in the subcutaneous layer Percentage of wound debrided: 100 Instrument Used: 5mm curette Tissue Removed: Subcutaneous tissue and slough Severity: Fat Layer Exposed Amount of bleeding with debridement: Mild Bleeding Controlled with: Pressure Patient tolerated procedure: Patient tolerated procedure well Assessment/Plan Active Problems (Last Reviewed 07/05/18 @ 16:08 by Ryan Gandhi DO) 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 Assessment: 1. Nonhealing diabetic ulcer right lateral middle back. 2. Nonhealing diabetic ulcer left lateral middle back. 3. Diabetes mellitus. Plan: The patient was seen and examined at the wound center today and was updated on the plan of care. A subcutaneous debridement was performed today. The patient tolerated the procedure well. The patients wound care will consist of: right middle back will place collagen hydrogel with adaptic dressing. The left middle back will apply a SNAP vac to the ulcer. He will return for a VAC change. He will follow up in one week. Code Visit [id number]
[2018-08-24 08:00] VITALS: BP 106/92; PULSE 77; RESP 16; TEMP 36.1; BMI 29.7
[2018-08-27 15:17] VITALS: BP 136/80; PULSE 91; RESP 18; TEMP 36.8; BMI 29.7
--- NOTE | 2018-08-27 16:56 | PN.PCM_ITS ---
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 Comment: Nonhealing ulcers right lateral middle back and left lateral middle back (2) Nonhealing surgical wound Status: Chronic Current Visit: Yes Code(s): T81.89XA - Other complications of procedures, not elsewhere classified, initial encounter Comment: right lateral middle back and left lateral middle back after excision of nonhealing di abetic ulcers with skin flap reconstruction (3) Type 2 diabetes mellitus Status: Chronic Current Visit: Yes Qualifiers: Code(s): E11.9 - Type 2 diabetes mellitus without complications Type of Wound Date of Service: 08/27/18 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: Nonhealing diabetic ulcers left lateral middle back and right lateral middle back. History of Wound: Patient presents today for continued evaluation and treatment of his nonhealing diabetic ulcers right lateral middle back and left lateral middle back. Patient states he had I&D procedures by his PCP of sebaceous cysts on his back in January, and March,. He has been coming to the [facility] since March. Various wound care modalities have been tried such as a SNAP VAC, Puroply, and most recently Christie dressing changes. Healing has been slow. Patient is diabetic and his recent HgbA1c was 6.6. He had a recent wound culture on 04/26/18 which showed Staphylococcus epidermidis and he was treated with Doxycycline. Patient takes nutritional supplementation with protein to help the healing process. On 06/12/18 Dr. Lemus to to the OR where he underwent surgical preparation right lateral middle back with excision 1.2 cm nonhealing diabetic ulcer and rhomboid transposition skin flap reconstruction (18 cm2) and surgical preparation left lateral middle back with excision 3 cm nonhealing diabetic ulcer and rhomboid transposition skin flap reconstruction (50 cm2). The operative culture of the left grew left lateral middle back ulcer grew Staphylococcus lugdunsis and Staphylococcus epidermidis. He was placed on Augmentin. These flaps opened up and started to drain. A wound culture was done on where the left lateral middle back ulcer grew Staphylococcus haemolyticus. He was placed on Levaquin. Patient denies any fevers or loss of appetite today. Progress of Wound: Right back ulcer has improved and is healed. Left ulcer is improving and the tunneling is stable. - Physical Exam Vital Signs Temp Pulse Resp BP 98.3 F 91 18 136/80 H 08/27/18 15:17 08/27/18 15:17 08/27/18 15:17 08/27/18 15:17 General: Alert, Oriented x3, Cooperative HEENT: Atraumatic, PERRLA Oral: Moist Mucosa Lungs: Normal air movement Cardiovascular: Regular rate Extremities: No edema, Capillary Refill Less than 3 Seconds Skin: Ulcer/ Wound - Right back ulcer is healed. Left back ulcer is improved, the tunneling is stable Wound Measurements and Assessment WC - Nurse 1 - General Ulcer Measurement Start: 08/17/18 09:43 Freq: Status: Active Protocol: Activity Type Activity Date Activity User E-Sign Co-Sign Detail Recorded Client Recorded Date Recorded By Document 08/27/18 15:17 DL [id number] 08/27/18 15:32 DL 08/27/18 15:17 Wound Center Nurse 1 [Ulcer Assessment] # 3- RT SCAPULA cluster -Current Size (cm) - Length 0.1 -Current Size (cm) - Width 0.1 -Current Size (cm) - Depth 0.1 -Total Square Cm 0.01 -Photo Taken No -Exudate Amt None Present -Wound Margin Distinct, Outline Attached -Granulation Amt Large (67-100%) -Granulation Quality [place] -Necrosis Amt None Present (0 %) -Structure Exposed N/A -Texture (Mayra-wound Skin Appearance) Scarring -Moisture (Mayra-wound Skin Appearance No Abnormality ) -Color (Mayra-wound Skin Appearance) No Abnormality -Temperature (Mayra-wound Skin No Abnormality Appearance) (Pt Warm) -Tenderness on Palpation (Mayra-wound No Skin Appearance) -Ulcer Cleansing Rinsed/ Irrigated with Saline -Foul Odor after Cleansing No #4 left lumbar back non healing post surgical -Current Size (cm) - Length 5 -Current Size (cm) - Width 4 -Current Size (cm) - Depth 0.3 -Total Square Cm 20 -Photo Taken No -Tunneling Position (O'clock) 12 -Tunneling Distance (cm) 1.1 -Exudate Amt Small -Exudate Type Sanguineous -Wound Margin Distinct, Outline Attached -Granulation Amt Large (67-100%) -Granulation Quality Red -Necrosis Amt Small (1-33%) -Necrotic Tissue Type Adherent Slough -Structure Exposed N/A -Texture (Mayra-wound Skin Appearance) Scarring -Moisture (Mayra-wound Skin Appearance No Abnormality ) -Color (Mayra-wound Skin Appearance) No Abnormality -Temperature (Mayra-wound Skin No Abnormality Appearance) (Pt Warm) -Tenderness on Palpation (Mayra-wound No Skin Appearance) -Ulcer Cleansing Wound Cleanser -Foul Odor after Cleansing No -Anesthetic Used 5% Lidocaine Gel WC - Nurse 2 - General Ulcer CM Notes Start: 08/17/18 09:43 Freq: Status: Active Protocol: Activity Type Activity Date Activity User E-Sign Co-Sign Detail Recorded Client Recorded Date Recorded By Document 08/27/18 16:19 [facility] [id number] 08/27/18 16:23 [facility] 08/27/18 16:19 Wound Center Nurse 2 [Procedure/Treatment] # 3- RT SCAPULA cluster -Correct Patient No -Correct Side, Site, Position No -Correct Procedure No -Procedure Performed No -Post Debridement Size (cm) - Length 0 -Post Debridement Size (cm) - Width 0 -Post Debridement Size (cm) - Depth 0 -Total Square Cm 0 -Wound/Ulcer Outcome Healed- Epithelialized #4 left lumbar back non healing post surgical -Time 16:20 -Correct Patient Yes -Correct Side, Site, Position Yes -Correct Procedure Yes -Procedure Performed Yes -Type of Procedure Debridement -Clinical Debridement Subcutaneous -Post Debridement Size (cm) - Length 4.5 -Post Debridement Size (cm) - Width 5.7 -Post Debridement Size (cm) - Depth 1.0 -Total Square Cm 25.65 -Wound/Ulcer Outcome Not Healed -Ulcer Cleansing Rinsed/ Irrigated with Saline -Foul Odor after Cleansing No -Bioengineered Tissue No -Bleeding Controlled with Pressure -Other 11:00-1.8cm/12: 00-0.9cm/2:00-2 .3cm -Offloading No -Treatment Response Procedure Tolerated Well [See Physician Procedure note for Specifics] Pain Scale: 0-10 Numeric [Pain] -Is Patient Pain Free? Yes Debridement Note Post-Debridement Measurements/Treatment SANDEEP - Nurse 2 - General Ulcer CM Notes Start: 08/17/18 09:43 Freq: Status: Active Protocol: Activity Type Activity Date Activity User E-Sign Co-Sign Detail Recorded Client Recorded Date Recorded By Document 08/20/18 15:12 [id number] 08/20/18 15:16 Document 08/27/18 16:19 [id number] 08/27/18 16:23 08/20/18 08/27/18 15:12 16:19 Wound Center Nurse 2 # 3- RT SCAPULA cluster -Time 15:12 -Correct Patient Yes No -Correct Side, Site, Position Yes No -Correct Procedure Yes No -Procedure Performed Yes No -Type of Procedure Debridement -Clinical Debridement Subcutaneous -Post Debridement Size (cm) - Length 2 0 -Post Debridement Size (cm) - Width 1 0 -Post Debridement Size (cm) - Depth 0.1 0 -Total Square Cm 2 0 -Wound/Ulcer Outcome Not Healed Healed- Epithelialized -Ulcer Cleansing Rinsed/ Irrigated with Saline -Foul Odor after Cleansing No -Bioengineered Tissue No -Bleeding Controlled with Pressure -Offloading No -Treatment Response Procedure Tolerated Well #4 left lumbar back non healing post surgical -Time 15:13 16:20 -Correct Patient Yes Yes -Correct Side, Site, Position Yes Yes -Correct Procedure Yes Yes -Procedure Performed Yes Yes -Type of Procedure Debridement Debridement -Clinical Debridement Subcutaneous Subcutaneous -Post Debridement Size (cm) - Length 4.5 4.5 -Post Debridement Size (cm) - Width 6 5.7 -Post Debridement Size (cm) - Depth 1.1 1.0 -Total Square Cm 27.0 25.65 -Wound/Ulcer Outcome Not Healed Not Healed -Ulcer Cleansing Rinsed/ Rinsed/ Irrigated with Irrigated with Saline Saline -Foul Odor after Cleansing No No -Bioengineered Tissue No No -Bleeding Controlled with Pressure Pressure -Other 9:00-2.2cm/12: 11:00-1.8cm/12: 00-1.1cm/ 2:00- 00-0.9cm/2:00-2 2.1cm .3cm -Offloading No No -Treatment Response Procedure Procedure Tolerated Well Tolerated Well Pain Scale: 0-10 Numeric Is Patient Pain Free? Yes Yes Wound debrided: Left back Laterality: Left Type of Debridement: Excisional debridement Anesthesia Used: 5% Lidocaine Gel Depth: Down to and including healthy tissue, in the subcutaneous layer Percentage of wound debrided: 100 Instrument Used: 3mm curette Tissue Removed: Subcutaneous tissue and slough Severity: Fat Layer Exposed Amount of bleeding with debridement: Mild Bleeding Controlled with: Pressure Patient tolerated procedure well Assessment/Plan Active Problems (Last Reviewed 07/05/18 @ 16:08 by Ryan Gandhi DO) 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 Assessment: 1. Nonhealing diabetic ulcer right lateral middle back. 2. Nonhealing diabetic ulcer left lateral middle back. 3. Diabetes mellitus. Plan: The patient was seen and examined at the wound center today and was updated on the plan of care. A subcutaneous debridement was performed today. The patient tolerated the procedure well. The patients wound care will consist of: right middle back is healed. The left middle back will continue to apply a SNAP vac to the ulcer. He will return for a VAC change. He will follow up in one week. Code Visit [id number]
[2018-08-31 08:14] VITALS: BP 102/67; PULSE 74; RESP 18; TEMP 36.2; BMI 29.7
[2018-09-03 15:45] VITALS: BP 120/51; PULSE 88; RESP 18; TEMP 36.6; BMI 29.7
--- NOTE | 2018-09-03 17:11 | PCM.WC.PN ---
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 Comment: Nonhealing ulcers right lateral middle back and left lateral middle back (2) Nonhealing surgical wound Status: Chronic Current Visit: Yes Code(s): T81.89XA - Other complications of procedures, not elsewhere classified, initial encounter Comment: right lateral middle back and left lateral middle back after excision of nonhealing diabetic ulcers with skin flap reconstruction (3) Type 2 diabetes mellitus Status: Chronic Current Visit: Yes Qualifiers: Code(s): E11.9 - Type 2 diabetes mellitus without complications Type of Wound Date of Service: 09/03/18 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: Nonhealing diabetic ulcers left lateral middle back and right lateral middle back. History of Wound: Patient presents today for continued evaluation and treatment of his nonhealing diabetic ulcers right lateral middle back and left lateral middle back. Patient states he had I&D procedures by his PCP of sebaceous cysts on his back in January, and March,. He has been coming to the Wound Center since March. Various wound care modalities have been tried such as a SNAP VAC, Puroply, and Christie dressing changes. Healing has been slow. Patient is diabetic and his recent HgbA1c was 6.6. He had a recent wound culture on 04/26/18 which showed Staphylococcus epidermidis and he was treated with Doxycycline. Patient takes nutritional supplementation with protein to help the healing process. On 06/12/18 Dr. Lemus to to the OR where he underwent surgical preparation right lateral middle back with excision 1.2 cm nonhealing diabetic ulcer and rhomboid transposition skin flap reconstruction (18 cm2) and surgical preparation left lateral middle back with excision 3 cm nonhealing diabetic ulcer and rhomboid transposition skin flap reconstruction (50 cm2). The operative culture of the left grew left lateral middle back ulcer grew Staphylococcus lugdunsis and Staphylococcus epidermidis. He was placed on Augmentin. These flaps opened up and started to drain. A wound culture was done on where the left lateral middle back ulcer grew Staphylococcus haemolyticus. He was placed on Levaquin. Patient denies any fevers or loss of appetite today. Progress of Wound: Right back ulcer is healed. Left ulcer is stable, tunneling is showing no improvement. - Physical Exam Vital Signs Temp Pulse Resp BP 97.8 F 88 18 120/51 L 09/03/18 15:45 09/03/18 15:45 09/03/18 15:45 09/03/18 15:45 General: Alert, Oriented x3, Cooperative HEENT: Atraumatic Oral: Moist Mucosa Lungs: Normal air movement Cardiovascular: Regular rate Extremities: No edema, Capillary Refill Less than 3 Seconds Skin: Ulcer/ Wound - Right back is healed. Left back is stable, not showing much improvment with the SNAP vac. Wound Measurements and Assessment WC - Nurse 1 - General Ulcer Measurement Start: 08/17/18 09:43 Freq: Status: Active Protocol: Activity Type Activity Date Activity User E-Sign Co-Sign Detail Recorded Client Recorded Date Recorded By Document 09/03/18 15:45 AN [id number] 09/03/18 15:53 AN 09/03/18 15:45 Wound Center Nurse 1 [Ulcer Assessment] #4 left lumbar back non healing post surgical -Current Size (cm) - Length 4.4 -Current Size (cm) - Width 3.4 -Current Size (cm) - Depth 0.2 -Total Square Cm 14.96 -Photo Taken No -Exudate Type Serosanguineous -Wound Margin Distinct, Outline Attached -Granulation Amt Large (67-100%) -Granulation Quality [place] Red -Necrosis Amt Small (1-33%) -Necrotic Tissue Type Adherent Slough -Structure Exposed N/A -Texture (Mayra-wound Skin Appearance) Scarring -Moisture (Mayra-wound Skin Appearance No Abnormality ) -Color (Mayra-wound Skin Appearance) No Abnormality -Temperature (Mayra-wound Skin No Abnormality Appearance) (Pt Warm) -Tenderness on Palpation (Mayra-wound No Skin Appearance) -Ulcer Cleansing Wound Cleanser -Foul Odor after Cleansing No -Anesthetic Used 4% Lidocaine Solution WC - Nurse 2 - General Ulcer CM Notes Start: 08/17/18 09:43 Freq: Status: Active Protocol: Activity Type Activity Date Activity User E-Sign Co-Sign Detail Recorded Client Recorded Date Recorded By Document 09/03/18 16:06 AN [id number] 09/03/18 16:07 AN 09/03/18 16:06 Wound Center Nurse 2 [Procedure/Treatment] -Time 16:06 -Correct Patient Yes -Correct Side, Site, Position Yes -Correct Procedure Yes -Procedure Performed Yes -Type of Procedure Debridement -Clinical Debridement Subcutaneous -Post Debridement Size (cm) - Length 5.5 -Post Debridement Size (cm) - Width 3.2 -Post Debridement Size (cm) - Depth 0.5 -Total Square Cm 17.60 -Wound/Ulcer Outcome Not Healed -Ulcer Cleansing Rinsed/ Irrigated with Saline -Foul Odor after Cleansing No -Bioengineered Tissue No -Bleeding Controlled with Pressure -Offloading No -Treatment Response Procedure Tolerated Well [See Physician Procedure note for Specifics] Pain Scale: 0-10 Numeric [Pain] -Is Patient Pain Free? Yes Musculoskeletal: No Tenderness to Palpation of Joints or Extremities Neurological: Neuro grossly intact Psych/Mental Status: Normal Affect, Appropriate Debridement Note Post-Debridement Measurements/Treatment WC - Nurse 2 - General Ulcer CM Notes Start: 08/17/18 09:43 Freq: Status: Active Protocol: Activity Type Activity Date Activity User E-Sign Co-Sign Detail Recorded Client Recorded Date Recorded By Document 08/20/18 15:12 [id number] 08/20/18 15:16 Document 08/27/18 16:19 [id number] 08/27/18 16:23 Document 09/03/18 16:06 AN [id number] 09/03/18 16:07 AN 08/20/18 08/27/18 09/03/18 15:12 16:19 16:06 Wound Center Nurse 2 # 3- RT SCAPULA cluster -Time 15:12 -Correct Patient Yes No -Correct Side, Site, Position Yes No -Correct Procedure Yes No -Procedure Performed Yes No -Type of Procedure Debridement -Clinical Debridement Subcutaneous -Post Debridement Size (cm) - Length 2 0 -Post Debridement Size (cm) - Width 1 0 -Post Debridement Size (cm) - Depth 0.1 0 -Total Square Cm 2 0 -Wound/Ulcer Outcome Not Healed Healed- Epithelialized -Ulcer Cleansing Rinsed/ Irrigated with Saline -Foul Odor after Cleansing No -Bioengineered Tissue No -Bleeding Controlled with Pressure -Offloading No -Treatment Response Procedure Tolerated Well #4 left lumbar back non healing post surgical -Time 15:13 16:20 16:06 -Correct Patient Yes Yes Yes -Correct Side, Site, Position Yes Yes Yes -Correct Procedure Yes Yes Yes -Procedure Performed Yes Yes Yes -Type of Procedure Debridement Debridement Debridement -Clinical Debridement Subcutaneous Subcutaneous Subcutaneous -Post Debridement Size (cm) - Length 4.5 4.5 5.5 -Post Debridement Size (cm) - Width 6 5.7 3.2 -Post Debridement Size (cm) - Depth 1.1 1.0 0.5 -Total Square Cm 27.0 25.65 17.60 -Wound/Ulcer Outcome Not Healed Not Healed Not Healed -Ulcer Cleansing Rinsed/ Rinsed/ Rinsed/ Irrigated with Irrigated with Irrigated with Saline Saline Saline -Foul Odor after Cleansing No No No -Bioengineered Tissue No No No -Bleeding Controlled with Pressure Pressure Pressure -Other 9:00-2.2cm/12: 11:00-1.8cm/12: 00-1.1cm/ 2:00- 00-0.9cm/2:00-2 2.1cm .3cm -Offloading No No No -Treatment Response Procedure Procedure Procedure Tolerated Well Tolerated Well Tolerated Well Pain Scale: 0-10 Numeric Is Patient Pain Free? Yes Yes Yes Wound debrided: Left back Laterality: Left Type of Debridement: Excisional debridement Anesthesia Used: 5% Lidocaine Gel Depth: Down to and including healthy tissue, in the subcutaneous layer Percentage of wound debrided: 100 Instrument Used: 3mm curette Tissue Removed: Subcutaneous tissue and slough Severity: Limited To Skin Breakdown Amount of bleeding with debridement: Mild Bleeding Controlled with: Pressure Patient tolerated procedure well Assessment/Plan Active Problems (Last Reviewed 07/05/18 @ 16:08 by Ryan Gandhi DO) 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 Assessment: 1. Nonhealing diabetic ulcer right lateral middle back. 2. Nonhealing diabetic ulcer left lateral middle back. 3. Diabetes mellitus. Plan: The patient was seen and examined at the wound center today and was updated on the plan of care. A subcutaneous debridement was performed today. The patient tolerated the procedure well. The patients wound care will consist of: right middle back is healed and thhe left middle back will stop the SNAP vac and start using Dakin's solution to the ulcer. Discussed with him having Dr. Slaby do a skin graft to the the left back and he is declining surgery at this time. He is supposed to go to [facility] with his in September to visit her family there. He would like to do daily dressing changes at this time. He will follow up in one week. Code Visit [id number]
== END 2018-09-14 23:59 ==
LOC: WC 15:00
PROVIDERS: Family Provider Family Medicine; PCP Family Medicine; Visit Provider Surgery
DX: E11.622 Type 2 diabetes mellitus with other skin ulcer (principal); L98.422 Non-pressure chronic ulcer of back with fat layer exposed; L98.421 Non-pressure chronic ulcer of back limited to breakdown of skin
CPT/HCPCS: 11042; 11045; 97605; 97607; 99212; 99213; G0463

== ENCOUNTER → 2018-10-22 | Outpatient (CLI) | payer OTHER, SELFPAY ==
[2018-10-22 14:19] VITALS: BMI 29.7
== END | disposition home or self-care (01) ==
LOC: LABSPEC 17:22
PROVIDERS: Family Provider Family Medicine; PCP Family Medicine; Visit Provider Nurse Practitioner Family
DX: L98.492 Non-pressure chronic ulcer of skin of other sites with fat layer exposed (principal); T81.89XA Other complications of procedures, not elsewhere classified, initial encounter; E11.9 Type 2 diabetes mellitus without complications
CPT/HCPCS: 87070; 87077; 87186; 87205

== ENCOUNTER 2018-11-12 12:00 | Outpatient (RCR) | payer OTHER, SELFPAY ==
[2018-09-12 10:03] VITALS: BMI 29.7
[2018-11-02 08:08] VITALS: BMI 29.7
[2018-11-06 15:43] VITALS: BP 121/75; PULSE 78; RESP 18; TEMP 36.6; BMI 29.7
--- NOTE | 2018-11-06 17:57 | PCM.WC.PN ---
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 Comment: Nonhealing ulcers right lateral middle back and left lateral middle back (2) Type 2 diabetes mellitus Status: Chronic Current Visit: Yes Qualifiers: Code(s): E11.9 - Type 2 diabetes mellitus without complications Type of Wound Date of Service: 11/06/18 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: Nonhealing diabetic ulcers left lateral middle back and right lateral middle back. History of Wound: Patient presents today for continued evaluation and treatment of his nonhealing diabetic ulcers right lateral middle back and left lateral middle back. Patient states he had I&D procedures by his PCP of sebaceous cysts on his back in January, and March,. He has been coming to the [facility] since March. Various wound care modalities have been tried such as a SNAP VAC, Puroply, and Christie dressing changes. Healing has been slow. Patient is diabetic and his recent HgbA1c was 5.8 from 10/23/18. He had a wound culture on 04/26/18 which showed Staphylococcus epidermidis and he was treated with Doxycycline. Patient takes nutritional supplementation with protein to help the healing process. On 06/12/18 Dr. Lemus to to the OR where he underwent surgical preparation right lateral middle back with excision 1.2 cm nonhealing diabetic ulcer and rhomboid transposition skin flap reconstruction (18 cm2) and surgical preparation left lateral middle back with excision 3 cm nonhealing diabetic ulcer and rhomboid transposition skin flap reconstruction (50 cm2). The operative culture of the left grew left lateral middle back ulcer grew Staphylococcus lugdunsis and Staphylococcus epidermidis. He was placed on Augmentin. These flaps opened up and started to drain. A wound culture was done on 07/09/18 where the left lateral middle back ulcer grew Staphylococcus haemolyticus. He was placed on Levaquin. Wound Culture from 10/22/18 grew Staphylococcus auras and he was started on Bactrim DS. Patient denies any fevers or loss of appetite today. Progress of Wound: Non healing ulcer right lateral middle back and non heaing ulcers left lateral middle back. - Physical Exam Vital Signs Temp Pulse Resp BP 98 F 78 18 121/75 H 11/06/18 15:43 11/06/18 15:43 11/06/18 15:43 11/06/18 15:43 General: Alert, Oriented x3, Cooperative HEENT: Atraumatic Lungs: Normal air movement Cardiovascular: Regular rate Abdomen: Soft Extremities: No edema, Capillary Refill Less than 3 Seconds Skin: Ulcer/ Wound - Right medial and left medial back Wound Measurements and Assessment WC - Nurse 1 - General Ulcer Measurement Start: 11/06/18 15:43 Freq: Status: Active Protocol: Activity Type Activity Date Activity User E-Sign Co-Sign Detail Recorded Client Recorded Date Recorded By Document 11/06/18 15:43 RB [id number] 11/06/18 16:00 RB 11/06/18 15:43 Wound Center Nurse 1 [Ulcer Assessment] 6. L lumbar back -Combined with other wound No -Current Size (cm) - Length 5 -Current Size (cm) - Width 4.7 -Current Size (cm) - Depth 0.2 -Total Square Cm 23.5 -Tunneling No -Undermining/Tunneling No -Circular Undermining No -Exudate Amt Medium -Exudate Type Serosanguineous -Wound Margin Thickened & Rolled Under -Granulation Amt Medium (34-66%) -Granulation Quality [place] -Slough/Fibrin Yes -Necrosis Amt Small (1-33%) -Necrotic Tissue Type Adherent Slough -Structure Exposed N/A -Texture (Mayra-wound Skin Appearance) Assessed, Friable, Scarring -Moisture (Mayra-wound Skin Appearance Assessed ) -Color (Mayra-wound Skin Appearance) Assessed -Temperature (Mayra-wound Skin No Abnormality Appearance) (Pt Warm) -Tenderness on Palpation (Mayra-wound No Skin Appearance) -Ulcer Cleansing Wound Cleanser -Foul Odor after Cleansing No -Anesthetic Used 4% Lidocaine Solution,5% Lidocaine Gel 5. R scapula -Combined with other wound No -Current Size (cm) - Length 0.5 -Current Size (cm) - Width 1.7 -Current Size (cm) - Depth 0.2 -Total Square Cm 0.85 -Tunneling No -Undermining/Tunneling No -Circular Undermining No -Exudate Amt Medium -Exudate Type Serosanguineous -Wound Margin Thickened & Rolled Under -Granulation Amt Medium (34-66%) -Granulation Quality [place],Red -Necrosis Amt Small (1-33%) -Necrotic Tissue Type Adherent Slough -Structure Exposed N/A -Texture (Mayra-wound Skin Appearance) Assessed, Friable, Scarring -Moisture (Mayra-wound Skin Appearance Assessed ) -Color (Mayra-wound Skin Appearance) Assessed -Temperature (Mayra-wound Skin No Abnormality Appearance) (Pt Warm) -Tenderness on Palpation (Mayra-wound No Skin Appearance) -Ulcer Cleansing Wound Cleanser -Foul Odor after Cleansing No -Anesthetic Used 4% Lidocaine Solution,5% Lidocaine Gel WC - Nurse 2 - General Ulcer CM Notes Start: 11/06/18 15:43 Freq: Status: Active Protocol: Activity Type Activity Date Activity User E-Sign Co-Sign Detail Recorded Client Recorded Date Recorded By Document 11/06/18 16:54 MW [id number] 11/06/18 17:02 MW 11/06/18 16:54 Wound Center Nurse 2 [Procedure/Treatment] 6. L lumbar back -Time 16:54 -Correct Patient Yes -Correct Side, Site, Position Yes -Correct Procedure Yes -Procedure Performed Yes -Type of Procedure Debridement -Clinical Debridement Subcutaneous -Post Debridement Size (cm) - Length 4.0 -Post Debridement Size (cm) - Width 5.0 -Post Debridement Size (cm) - Depth 0.3 -Total Square Cm 20.00 -Wound/Ulcer Outcome Not Healed -Ulcer Cleansing Rinsed/ Irrigated with Saline -Foul Odor after Cleansing No -Bioengineered Tissue No -Bleeding Controlled with Pressure -Other undermining @ 12 - 0.5cm , @7 - 0.5cm -Offloading No -Treatment Response Procedure Tolerated Well 5. R scapula -Time 16:55 -Correct Patient Yes -Correct Side, Site, Position Yes -Correct Procedure Yes -Procedure Performed Yes -Type of Procedure Debridement -Clinical Debridement Subcutaneous -Post Debridement Size (cm) - Length 1.0 -Post Debridement Size (cm) - Width 2.2 -Post Debridement Size (cm) - Depth 0.2 -Total Square Cm 2.20 -Wound/Ulcer Outcome Not Healed -Ulcer Cleansing Rinsed/ Irrigated with Saline -Foul Odor after Cleansing No -Bioengineered Tissue No -Bleeding Controlled with Pressure -Offloading No -Treatment Response Procedure Tolerated Well [See Physician Procedure note for Specifics] Musculoskeletal: No Tenderness to Palpation of Joints or Extremities Neurological: Neuro grossly intact Psych/Mental Status: Normal Affect, Appropriate Debridement Note Post-Debridement Measurements/Treatment WC - Nurse 2 - General Ulcer CM Notes Start: 11/06/18 15:43 Freq: Status: Active Protocol: Activity Type Activity Date Activity User E-Sign Co-Sign Detail Recorded Client Recorded Date Recorded By Document 11/06/18 16:54 MW [id number] 11/06/18 17:02 MW 11/06/18 16:54 Wound Center Nurse 2 6. L lumbar back -Time 16:54 -Correct Patient Yes -Correct Side, Site, Position Yes -Correct Procedure Yes -Procedure Performed Yes -Type of Procedure Debridement -Clinical Debridement Subcutaneous -Post Debridement Size (cm) - Length 4.0 -Post Debridement Size (cm) - Width 5.0 -Post Debridement Size (cm) - Depth 0.3 -Total Square Cm 20.00 -Wound/Ulcer Outcome Not Healed -Ulcer Cleansing Rinsed/ Irrigated with Saline -Foul Odor after Cleansing No -Bioengineered Tissue No -Bleeding Controlled with Pressure -Other undermining @ 12 - 0.5cm , @7 - 0.5cm -Offloading No -Treatment Response Procedure Tolerated Well 5. R scapula -Time 16:55 -Correct Patient Yes -Correct Side, Site, Position Yes -Correct Procedure Yes -Procedure Performed Yes -Type of Procedure Debridement -Clinical Debridement Subcutaneous -Post Debridement Size (cm) - Length 1.0 -Post Debridement Size (cm) - Width 2.2 -Post Debridement Size (cm) - Depth 0.2 -Total Square Cm 2.20 -Wound/Ulcer Outcome Not Healed -Ulcer Cleansing Rinsed/ Irrigated with Saline -Foul Odor after Cleansing No -Bioengineered Tissue No -Bleeding Controlled with Pressure -Offloading No -Treatment Response Procedure Tolerated Well Wound debrided: right lateral middle back Laterality: Right Type of Debridement: Excisional debridement Anesthesia Used: 5% Lidocaine Gel Depth: Down to and including healthy tissue, in the subcutaneous layer Percentage of wound debrided: 100 Instrument Used: 5mm curette Tissue Removed: Subcutaneous tissue and slough Severity: Fat Layer Exposed Amount of bleeding with debridement: Mild Bleeding Controlled with: Compression and gauze Patient tolerated procedure well - Additional Wound Wound debrided: Left lateral middle back Laterality: Left Type of Debridement: Excisional debridement Anesthesia Used: 5% Lidocaine Gel Depth: Down to and including healthy tissue, in the subcutaneous layer Percentage of wound debrided: 100 Instrument Used: 5mm curette Tissue Removed: Subcutaneous tissue and slough Severity: Fat Layer Exposed Amount of bleeding with debridement: Mild Bleeding Controlled with: Compression and gauze Patient tolerated procedure: Patient tolerated procedure well Assessment/Plan Active Problems (Last Reviewed 10/23/18 @ 12:33 by Ryan Gandhi DO) Non-pressure chronic ulcer of skin of other sites with fat layer exposed (Chronic) Nonhealing ulcers right lateral middle back and left lateral middle back Type 2 diabetes mellitus (Chronic) Assessment: 1. Nonhealing diabetic ulcer right lateral middle back. 2. Nonhealing diabetic ulcer left lateral middle back. 3. Diabetes mellitus. Plan: The patient was seen and examined at the wound center today and was updated on the plan of care. A subcutaneous debridement was performed today. The patient tolerated the procedure well. The patients wound care will consist of: right middle back ulcer and the left middle back ulcers. We will apply for Theraskin to see if this will help heal his ulcers. He really would like to avoid having another surgery, therefore it is medically necessary for him to have an advanced skin product to get these ulcers to heal. Continue daily silver dressing changes. He will continue his Bactrim DS for his positive wound culture on 10/22/18 Staphylocoocus aureas. He will follow up in one week. Code Visit [id number]: 98353 Pooja subq tissue 20 sq cm/< Add On Codes: 15628 Pooja subq tissue add-on
[2018-11-12 12:05] VITALS: BP 128/77; PULSE 73; RESP 18; TEMP 37.1; BMI 29.7
--- NOTE | 2018-11-12 18:19 | PN.PCM_ITS ---
Type of Wound Date of Service: 11/12/18 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: Nonhealing diabetic ulcers left lateral middle back and right lateral middle back. History of Wound: Patient presents today for continued evaluation and treatment of his nonhealing diabetic ulcers right lateral middle back and left lateral middle back. Patient states he had I&D procedures by his PCP of sebaceous cysts on his back in January, and March,. He has been coming to the Wound Center since March. Various wound care modalities have been tried such as a SNAP VAC, Puroply, and Christie dressing changes. Healing has been slow. Patient is diabetic and his recent HgbA1c was 5.8 from 10/23/18. He had a wound culture on 04/26/18 which showed Staphylococcus epidermidis and he was treated with Doxycycline. Patient takes nutritional supplementation with protein to help the healing process. On 06/12/18 Dr. Lemus took him to the OR where he underwent surgical preparation right lateral middle back with excision 1.2 cm nonhealing diabetic ulcer and rhomboid transposition skin flap reconstruction (18 cm2) and surgical preparation left lateral middle back with excision 3 cm nonhealing diabetic ulcer and rhomboid transposition skin flap reconstruction (50 cm2). The operative culture of the left grew left lateral middle back ulcer grew Staphylococcus lugdunsis and Staphylococcus epidermidis. He was placed on Augmentin. These flaps opened up and started to drain. A wound culture was done on 07/09/18 where the left lateral middle back ulcer grew Staphylococcus haemolyticus. He was placed on Levaquin. Wound Culture from 10/22/18 grew Staphylococcus aureus and he was started on Bactrim DS. Patient denies any fevers or loss of appetite today. He has been approved for [employer] and will have it applied today. Progress of Wound: Non healing ulcer right lateral middle back and non heaing ulcers left lateral middle back. - Physical Exam Vital Signs Temp Pulse Resp BP 98.7 F 73 18 128/77 H 11/12/18 12:05 11/12/18 12:05 11/12/18 12:05 11/12/18 12:05 Debridement Note Post-Debridement Measurements/Treatment WC - Nurse 2 - General Ulcer CM Notes Start: 11/06/18 15:43 Freq: Status: Active Protocol: Activity Type Activity Date Activity User E-Sign Co-Sign Detail Recorded Client Recorded Date Recorded By Document 11/06/18 16:54 MW [id number] 11/06/18 17:02 MW Document 11/12/18 12:27 MW [id number] 11/12/18 12:34 MW 11/06/18 11/12/18 16:54 12:27 Wound Center Nurse 2 6. L lumbar back -Time 16:54 12:27 -Correct Patient Yes Yes -Correct Side, Site, Position Yes Yes -Correct Procedure Yes Yes -Procedure Performed Yes Yes -Type of Procedure Debridement Debridement -Clinical Debridement Subcutaneous Subcutaneous -Post Debridement Size (cm) - Length 4.0 5.3 -Post Debridement Size (cm) - Width 5.0 4.6 -Post Debridement Size (cm) - Depth 0.3 0.2 -Total Square Cm 20.00 24.38 -Wound/Ulcer Outcome Not Healed Not Healed -Ulcer Cleansing Rinsed/ Rinsed/ Irrigated with Irrigated with Saline Saline -Foul Odor after Cleansing No No -Bioengineered Tissue No Yes -Type of bioengineered Tissue THERASKIN -Bleeding Controlled with Pressure Pressure -Other undermining @ 12 - 0.5cm , @7 - 0.5cm -Offloading No No -Treatment Response Procedure Procedure Tolerated Well Tolerated Well 5. R scapula -Time 16:55 12:28 -Correct Patient Yes Yes -Correct Side, Site, Position Yes Yes -Correct Procedure Yes Yes -Procedure Performed Yes Yes -Type of Procedure Debridement Debridement -Clinical Debridement Subcutaneous Subcutaneous -Post Debridement Size (cm) - Length 1.0 1.9 -Post Debridement Size (cm) - Width 2.2 1.7 -Post Debridement Size (cm) - Depth 0.2 0.1 -Total Square Cm 2.20 3.23 -Wound/Ulcer Outcome Not Healed Not Healed -Ulcer Cleansing Rinsed/ Rinsed/ Irrigated with Irrigated with Saline Saline -Foul Odor after Cleansing No No -Bioengineered Tissue No Yes -Type of bioengineered Tissue [place] -Bleeding Controlled with Pressure Pressure -Offloading No No -Treatment Response Procedure Procedure Tolerated Well Tolerated Well Pain Scale: 0-10 Numeric Is Patient Pain Free? Yes Wound debrided: #5 Right lateral middle back. Laterality: Right Wound Grade/Stage: 2. Type of Debridement: Excisional debridement Anesthesia Used: 4% Lidocaine Solution Depth: Down to and including healthy tissue, in the subcutaneous layer Percentage of wound debrided: 100 Instrument Used: 5mm curette Tissue Removed: subcutaneous tissue. Severity: Fat Layer Exposed Amount of bleeding with debridement: Mild Bleeding Controlled with: Pressure Patient tolerated procedure well, - - Theraskin application #1 was done today. - Additional Wound Wound debrided: #6 Left lateral middle back. Laterality: Left Wound Grade/Stage: 2. Type of Debridement: Excisional debridement Anesthesia Used: 4% Lidocaine Solution Depth: Down to and including healthy tissue, in the subcutaneous layer Percentage of wound debrided: 100 Instrument Used: 5mm curette Tissue Removed: subcutaneous tissue. Severity: Fat Layer Exposed Amount of bleeding with debridement: Mild Bleeding Controlled with: Pressure, Silver Nitrate Patient tolerated procedure: - - Theraskin application #1 was done today. Assessment/Plan Assessment: 1. Nonhealing diabetic ulcer right lateral middle back. 2. Nonhealing diabetic ulcer left lateral middle back. 3. Diabetes mellitus. Plan: Theraskin #1 was applied today without difficulty. I used 39 cm2. Continue daily silver dressing changes. He will continue his Bactrim DS for his the Staphylocoocus aureus culture from 10/22/18. He will follow up in one week for another Theraskin application.
== END 2018-11-14 23:59 ==
LOC: WC 12:00
PROVIDERS: Family Provider Family Medicine; PCP Family Medicine; Visit Provider Nurse Practitioner Family
DX: E11.622 Type 2 diabetes mellitus with other skin ulcer (principal); L98.422 Non-pressure chronic ulcer of back with fat layer exposed; L72.3 Sebaceous cyst
CPT/HCPCS: 11042; 11045; 15271; 15272; 15275; 99213; Q4121; G0463

== ENCOUNTER → 2018-12-05 | Outpatient (CLI) | payer OTHER, SELFPAY ==
[2018-12-05 14:43] VITALS: BMI 29.7
[2018-12-05 17:33] LABS: Absolute Lymphocyte Count 1.34 X10^3/uL (0.83-4.51); Absolute Neutrophil Count 2.8 X10^3/uL (2.0-7.7); Basophil# 0.04 X10^3/uL; Basophil% 0.8 % (0-1); Eosinophil# 0.11 X10^3/uL; Eosinophils% 2.3 % (0-5); Hematocrit 41.4 % (40-54); Hemoglobin 13.2 g/dL (13.0-16.5); Lymphocyte # 1.34 X10^3/ul (4.0); Lymphocyte % 27.6 % (19-41); Mean Corp Hgb Conc 31.9 g/dL (32-36); Mean Corpuscular Hgb 28.9 pg (27.0-32.0); Mean Corpuscular Volume 90.6 fL (80-94); Mean Platelet Vol. 9.4 fl (6.2-12.0); Monocyte# 0.51 X10^3/uL; Monocyte% 10.5 % (0-10); NRBC Flagged by Analyzer 0 % (0-5); Neutrophil # 2.83 X10^3/uL (2.7-7.7); Neutrophil % 58.4 % (47-70); Platelet Count 222 K/mm3 (150-450); RBC Distribution Width CV 12.9 % (11.6-14.6); RBC Distribution Width SD 42.8 fl (35.1-43.9); Red Blood Count 4.57 M/mm3 (4.6-6.2); White Blood Count 4.9 K/mm3 (4.4-11.0)
[2018-12-05 17:52] LABS: Erythrocyte Sedimentation Rate 25 mm/hr (0-20)
[2018-12-05 18:28] LABS: ALB/GLOB Ratio 0.9 RATIO (0.9-2.4); AST(SGOT) 18 U/L (15-37); Alanine Aminotransfer ALT/SGPT 37 U/L (16-61); Albumin, Serum 3.5 g/dL (3.2-5.0); Alkaline Phosphatase 32 U/L (45-117); Anion Gap 7 (5-15); BUN 27 mg/dL (7-18); BUN/Creat Ratio 18.4 RATIO (10-20); Calcium,Total 8.9 mg/dL (8.5-10.1); Chloride 106 mmol/L (98-107); Creatinine, Serum 1.47 mg/dL (0.70-1.30); EST Glomerular Filtration Rate 52 mL/min (>60); Est Glom Filt Rate - Afr Amer 63 mL/min (>60); Globulin 3.9 g/dL (2.2-4.2); Glucose 97 mg/dL (74-106); Potassium 3.8 mmol/L (3.5-5.1); Prealbumin 22.5 mg/dL (20.0-40.0); Protein, Total 7.4 g/dL (6.4-8.2); Rheumatoid Factor < 10.0 IU/mL (<15); Sodium Level 140 mmol/L (136-145)
[2018-12-05 19:18] LABS: HIV - WCH Non-Reactive (Nonreactive)
[2018-12-08 03:06] LABS: HEPATITIS B SURFACE AG Negative (Negative); Hepatitis A AB, Total Positive (Negative); Hepatitis A IgM Antibody Negative (Negative); Hepatitis B Core AB IgM Negative (Negative); Hepatitis B Core Ab Total Negative (Negative); Hepatitis C Ab <0.1 s/co ratio (0.0-0.9)
[2018-12-10 13:45] LABS: CCP IgG Antibodies 45 units (0-19); Hep B Surface Antibodies Reactive (.)
[2018-12-10 13:55] LABS: ANTINUCLEAR ANTIBODIES DIRECT Negative (Negative)
== END | disposition home or self-care (01) ==
LOC: MTLAB 15:42
PROVIDERS: Family Provider Family Medicine; PCP Family Medicine; Referring Provider Nurse Practitioner Family; Visit Provider Nurse Practitioner Family
DX: T81.89XA Other complications of procedures, not elsewhere classified, initial encounter (principal); M25.50 Pain in unspecified joint; I10 Essential (primary) hypertension; E11.9 Type 2 diabetes mellitus without complications; L98.492 Non-pressure chronic ulcer of skin of other sites with fat layer exposed; Z20.5 Contact with and (suspected) exposure to viral hepatitis
CPT/HCPCS: 36415; 80053; 84134; 85025; 85652; 86038; 86200; 86225; 86235; 86431; 86703; 86704; 86705; 86706; 86708; 86709; 86803; 87340

== ENCOUNTER 2018-12-10 11:00 | Outpatient (RCR) | payer OTHER, SELFPAY ==
[2018-11-15 01:16] VITALS: BP 128/77; PULSE 73; RESP 18; TEMP 37.1
[2018-11-19 08:16] VITALS: BP 126/71; PULSE 62; RESP 18; TEMP 35.8; BMI 29.7
--- NOTE | 2018-11-19 10:52 | PCM.WC.PN ---
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 Comment: Nonhealing ulcers right lateral middle back and left lateral middle back (2) Type 2 diabetes mellitus Status: Chronic Qualifiers: Code(s): E11.9 - Type 2 diabetes mellitus without complications Type of Wound Date of Service: 11/19/18 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: Nonhealing diabetic ulcers left lateral middle back and right lateral middle back. History of Wound: Patient presents today for continued evaluation and treatment of his nonhealing diabetic ulcers right lateral middle back and left lateral middle back. Patient states he had I&D procedures by his PCP of sebaceous cysts on his back in January, and March,. He has been coming to the Wound Center since March. Various wound care modalities have been tried such as a SNAP VAC, Puroply, and Christie dressing changes. Healing has been slow. Patient is diabetic and his recent HgbA1c was 5.8 from 10/23/18. He had a wound culture on 04/26/18 which showed Staphylococcus epidermidis and he was treated with Doxycycline. Patient takes nutritional supplementation with protein to help the healing process. On 06/12/18 Dr. Lemus to to the OR where he underwent surgical preparation right lateral middle back with excision 1.2 cm nonhealing diabetic ulcer and rhomboid transposition skin flap reconstruction (18 cm2) and surgical preparation left lateral middle back with excision 3 cm nonhealing diabetic ulcer and rhomboid transposition skin flap reconstruction (50 cm2). The operative culture of the left grew left lateral middle back ulcer grew Staphylococcus lugdunsis and Staphylococcus epidermidis. He was placed on Augmentin. These flaps opened up and started to drain. A wound culture was done on 07/09/18 where the left lateral middle back ulcer grew Staphylococcus haemolyticus. He was placed on Levaquin. Wound Culture from 10/22/18 grew Staphylococcus auras and he was started on Bactrim DS. He was approved for Theraskin and first treatment was applied 11/12/18. The product is not available today so we will leave it on for another week. Patient denies any fevers or loss of appetite today. Progress of Wound: Right back ulcer is healed. Left ulcer is stable, tunneling is showing no improvement. - Physical Exam Vital Signs Temp Pulse Resp BP 96.4 F L 62 18 126/71 H 11/19/18 08:16 11/19/18 08:16 11/19/18 08:16 11/19/18 08:16 General: Alert, Oriented x3, Cooperative HEENT: Atraumatic Oral: Moist Mucosa Lungs: Normal air movement Cardiovascular: Regular rate Extremities: No edema, Peripheral Pulses Normal Skin: Ulcer/ Wound - Left lateral middle back and right lateral middle back ulcers. Theraskin and wound veil is intact. Wound Measurements and Assessment WC - Nurse 1 - General Ulcer Measurement Start: 11/19/18 08:16 Freq: Status: Active Protocol: Activity Type Activity Date Activity User E-Sign Co-Sign Detail Recorded Client Recorded Date Recorded By Document 11/19/18 08:16 DL [id number] 11/19/18 08:22 DL 11/19/18 08:16 Wound Center Nurse 1 [Ulcer Assessment] 6. L lumbar back -Exudate Amt Small -Exudate Type Serosanguineous -Texture (Mayra-wound Skin Appearance) Scarring -Tenderness on Palpation (Mayra-wound No Skin Appearance) -Foul Odor after Cleansing No 5. R scapula -Exudate Amt Medium -Exudate Type Serosanguineous -Foul Odor after Cleansing No WC - Nurse 2 - General Ulcer CM Notes Start: 11/19/18 08:16 Freq: Status: Active Protocol: Activity Type Activity Date Activity User E-Sign Co-Sign Detail Recorded Client Recorded Date Recorded By Document 11/19/18 09:00 JF [id number] 11/19/18 09:01 11/19/18 09:00 Wound Center Nurse 2 [Procedure/Treatment] 6. L lumbar back -Correct Patient No -Correct Side, Site, Position No -Correct Procedure No -Procedure Performed No -Wound/Ulcer Outcome Not Healed 5. R scapula -Correct Patient No -Correct Side, Site, Position No -Correct Procedure No -Procedure Performed No -Wound/Ulcer Outcome Not Healed [See Physician Procedure note for Specifics] Pain Scale: 0-10 Numeric [Pain] -Is Patient Pain Free? Yes Musculoskeletal: No Tenderness to Palpation of Joints or Extremities Neurological: Neuro grossly intact Psych/Mental Status: Normal Affect, Appropriate Debridement Note Post-Debridement Measurements/Treatment WC - Nurse 2 - General Ulcer CM Notes Start: 11/19/18 08:16 Freq: Status: Active Protocol: Activity Type Activity Date Activity User E-Sign Co-Sign Detail Recorded Client Recorded Date Recorded By Document 11/19/18 09:00 [id number] 11/19/18 09:01 [facility] 11/19/18 09:00 Wound Center Nurse 2 6. L lumbar back -Correct Patient No -Correct Side, Site, Position No -Correct Procedure No -Procedure Performed No -Wound/Ulcer Outcome Not Healed 5. R scapula -Correct Patient No -Correct Side, Site, Position No -Correct Procedure No -Procedure Performed No -Wound/Ulcer Outcome Not Healed Pain Scale: 0-10 Numeric Is Patient Pain Free? Yes No debridement was completed today Assessment/Plan Assessment: 1. Nonhealing diabetic ulcer right lateral middle back. 2. Nonhealing diabetic ulcer left lateral middle back. 3. Diabetes mellitus. Plan: The patient was seen and examined at the wound center today and was updated on the plan of care. A subcutaneous debridement was performed today. The patient tolerated the procedure well. The patients wound care will consist of: right middle back ulcer and the left middle back ulcers. We will apply for Theraskin to see if this will help heal his ulcers. He really would like to avoid having another surgery, therefore it is medically necessary for him to have an advanced skin product to get these ulcers to heal. Continue daily silver dressing changes. He will continue his Bactrim DS for his positive wound culture on 10/22/18 Staphylocoocus aureas. He will follow up in one week. Code Visit Office Visits / Consults: [id number] OV L3 Est
[2018-11-26 13:42] VITALS: BP 127/68; PULSE 93; RESP 16; TEMP 36.7; BMI 29.7
--- NOTE | 2018-11-26 23:47 | PCM.WC.PN ---
Type of Wound Date of Service: 11/26/18 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: Nonhealing diabetic ulcers left lateral middle back and right lateral middle back. History of Wound: Patient presents today for continued evaluation and treatment of his nonhealing diabetic ulcers right lateral middle back and left lateral middle back. Patient states he had I&D procedures by his PCP of sebaceous cysts on his back in January, and March,. He has been coming to [facility] since March. Various wound care modalities have been tried such as a SNAP VAC, Puroply, and Christie dressing changes. Healing has been slow. Patient is diabetic and his recent HgbA1c was 5.8 from 10/23/18. He had a wound culture on 04/26/18 which showed Staphylococcus epidermidis and he was treated with Doxycycline. Patient takes nutritional supplementation with protein to help the healing process. On 06/12/18 Dr. Lemus took him to the OR where he underwent surgical preparation right lateral middle back with excision 1.2 cm nonhealing diabetic ulcer and rhomboid transposition skin flap reconstruction (18 cm2) and surgical preparation left lateral middle back with excision 3 cm nonhealing diabetic ulcer and rhomboid transposition skin flap reconstruction (50 cm2). The operative culture of the left grew left lateral middle back ulcer grew Staphylococcus lugdunsis and Staphylococcus epidermidis. He was placed on Augmentin. These flaps opened up and started to drain. A wound culture was done on 07/09/18 where the left lateral middle back ulcer grew Staphylococcus haemolyticus. He was placed on Levaquin. Wound Culture from 10/22/18 grew Staphylococcus aureus and he was started on Bactrim DS. Patient denies any fevers or loss of appetite today. He has been approved for Theraskin. He had Therakin #1 applied. Progress of Wound: Slight improvement. - Physical Exam Vital Signs Temp Pulse Resp BP 98.0 F 93 16 127/68 H 11/26/18 13:42 11/26/18 13:42 11/26/18 13:42 11/26/18 13:42 Wound Measurements and Assessment WC - Nurse 1 - General Ulcer Measurement Start: 11/19/18 08:16 Freq: Status: Active Protocol: Activity Type Activity Date Activity User E-Sign Co-Sign Detail Recorded Client Recorded Date Recorded By Document 11/26/18 13:42 DV [id number] 11/26/18 13:51 DV 11/26/18 13:42 Wound Center Nurse 1 [Ulcer Assessment] 6. L lumbar back -Combined with other wound No -Current Size (cm) - Length 4.5 -Current Size (cm) - Width 4.5 -Current Size (cm) - Depth 0.2 -Total Square Cm 20.25 -Photo Taken No -Epithelialization None Present -Tunneling No -Undermining/Tunneling No -Circular Undermining No -Exudate Amt Medium -Exudate Type Serosanguineous -Wound Margin Flat & Intact -Granulation Amt Large (67-100%) -Granulation Quality Red -Slough/Fibrin Yes -Necrosis Amt Small (1-33%) -Necrotic Tissue Type Adherent Slough -Structure Exposed N/A -Texture (Mayra-wound Skin Appearance) Assessed, Scarring -Moisture (Mayra-wound Skin Appearance Assessed,Dry/ ) Scaly -Color (Mayra-wound Skin Appearance) Assessed -Temperature (Mayra-wound Skin No Abnormality Appearance) (Pt Warm) -Tenderness on Palpation (Mayra-wound No Skin Appearance) -Ulcer Cleansing Wound Cleanser -Foul Odor after Cleansing No -Anesthetic Used 4% Lidocaine Solution 5. R scapula -Combined with other wound No -Current Size (cm) - Length 1.5 -Current Size (cm) - Width 2.5 -Current Size (cm) - Depth 0.2 -Total Square Cm 3.75 -Photo Taken No -Epithelialization None Present -Tunneling No -Undermining/Tunneling No -Circular Undermining No -Exudate Amt Small -Exudate Type Serosanguineous -Wound Margin Flat & Intact -Granulation Amt Large (67-100%) -Granulation Quality Red -Slough/Fibrin Yes -Necrosis Amt Small (1-33%) -Necrotic Tissue Type Adherent Slough -Structure Exposed N/A -Texture (Mayra-wound Skin Appearance) Assessed, Scarring -Moisture (Mayra-wound Skin Appearance Assessed,Dry/ ) Scaly -Color (Mayra-wound Skin Appearance) Assessed -Temperature (Mayra-wound Skin No Abnormality Appearance) (Pt Warm) -Tenderness on Palpation (Mayra-wound No Skin Appearance) -Ulcer Cleansing Wound Cleanser -Foul Odor after Cleansing No -Anesthetic Used 4% Lidocaine Solution [Edema Assessment] -Lower Limb Edema Present NA WC - Nurse 2 - General Ulcer CM Notes Start: 11/19/18 08:16 Freq: Status: Active Protocol: Activity Type Activity Date Activity User E-Sign Co-Sign Detail Recorded Client Recorded Date Recorded By Document 11/26/18 13:57 DV [id number] 11/26/18 14:04 DV 11/26/18 13:57 Wound Center Nurse 2 [Procedure/Treatment] 6. L lumbar back -Time 14:01 -Correct Patient Yes -Correct Side, Site, Position Yes -Correct Procedure Yes -Procedure Performed Yes -Type of Procedure Debridement -Clinical Debridement Subcutaneous -Post Debridement Size (cm) - Length 4.5 -Post Debridement Size (cm) - Width 4.6 -Post Debridement Size (cm) - Depth 0.2 -Total Square Cm 20.70 -Wound/Ulcer Outcome Not Healed -Ulcer Cleansing Rinsed/ Irrigated with Saline -Foul Odor after Cleansing No -Bioengineered Tissue Yes -Type of bioengineered Tissue THERASKIN -Expiration Date 06/25/23 -Product Lot Number [id number] -Percent Used 100 -Saline Lot Number [id number] -Bleeding Controlled with Pressure -Offloading No -Treatment Response Procedure Tolerated Well 5. R scapula -Time 14:03 -Correct Patient Yes -Correct Side, Site, Position Yes -Correct Procedure Yes -Procedure Performed Yes -Type of Procedure Debridement -Clinical Debridement Subcutaneous -Post Debridement Size (cm) - Length 1.5 -Post Debridement Size (cm) - Width 2.6 -Post Debridement Size (cm) - Depth 0.2 -Total Square Cm 3.90 -Wound/Ulcer Outcome Not Healed -Ulcer Cleansing Rinsed/ Irrigated with Saline -Foul Odor after Cleansing No -Bioengineered Tissue Yes -Type of bioengineered Tissue THERASKIN -Expiration Date 06/25/23 -Product Lot Number [id number] -Percent Used 100 -Saline Lot Number [id number] -Bleeding Controlled with Pressure -Offloading No -Treatment Response Procedure Tolerated Well [See Physician Procedure note for Specifics] Pain Scale: 0-10 Numeric [Pain] -Is Patient Pain Free? Yes Debridement Note Post-Debridement Measurements/Treatment WC - Nurse 2 - General Ulcer CM Notes Start: 11/19/18 08:16 Freq: Status: Active Protocol: Activity Type Activity Date Activity User E-Sign Co-Sign Detail Recorded Client Recorded Date Recorded By Document 11/19/18 09:00 [id number] 11/19/18 09:01 JF Document 11/26/18 13:57 DV [id number] 11/26/18 14:04 DV 11/19/18 11/26/18 09:00 13:57 Wound Center Nurse 2 6. L lumbar back -Time 14:01 -Correct Patient No Yes -Correct Side, Site, Position No Yes -Correct Procedure No Yes -Procedure Performed No Yes -Type of Procedure Debridement -Clinical Debridement Subcutaneous -Post Debridement Size (cm) - Length 4.5 -Post Debridement Size (cm) - Width 4.6 -Post Debridement Size (cm) - Depth 0.2 -Total Square Cm 20.70 -Wound/Ulcer Outcome Not Healed Not Healed -Ulcer Cleansing Rinsed/ Irrigated with Saline -Foul Odor after Cleansing No -Bioengineered Tissue Yes -Type of bioengineered Tissue THERASKIN -Expiration Date 06/25/23 -Product Lot Number [id number] -Percent Used 100 -Saline Lot Number [id number] -Bleeding Controlled with Pressure -Offloading No -Treatment Response Procedure Tolerated Well 5. R scapula -Time 14:03 -Correct Patient No Yes -Correct Side, Site, Position No Yes -Correct Procedure No Yes -Procedure Performed No Yes -Type of Procedure Debridement -Clinical Debridement Subcutaneous -Post Debridement Size (cm) - Length 1.5 -Post Debridement Size (cm) - Width 2.6 -Post Debridement Size (cm) - Depth 0.2 -Total Square Cm 3.90 -Wound/Ulcer Outcome Not Healed Not Healed -Ulcer Cleansing Rinsed/ Irrigated with Saline -Foul Odor after Cleansing No -Bioengineered Tissue Yes -Type of bioengineered Tissue THERASKIN #2 -Expiration Date 06/25/23 -Product Lot Number [id number] -Percent Used 100 -Saline Lot Number [id number] -Bleeding Controlled with Pressure -Offloading No -Treatment Response Procedure Tolerated Well Pain Scale: 0-10 Numeric Is Patient Pain Free? Yes Yes Wound debrided: #5 Right lateral middle back. Laterality: Right Wound Grade/Stage: 2. Type of Debridement: Excisional debridement Anesthesia Used: 4% Lidocaine Solution Depth: Down to and including healthy tissue, in the subcutaneous layer Percentage of wound debrided: 100 Instrument Used: 5mm curette Tissue Removed: subcutaneous tissue. Severity: Fat Layer Exposed Amount of bleeding with debridement: Mild Bleeding Controlled with: Pressure Patient tolerated procedure well, - - Theraskin #2 applied today. Expiration - 06/25/23. Product Lot Number - [id number]. Percent used - 100%. Saline Lot Number - [id number]. - Additional Wound Wound debrided: #6 Left lateral middle back. Laterality: Left Wound Grade/Stage: 2. Type of Debridement: Excisional debridement Anesthesia Used: 4% Lidocaine Solution Depth: Down to and including healthy tissue, in the subcutaneous layer Percentage of wound debrided: 100 Instrument Used: 5mm curette Tissue Removed: subcutaneous tissue. Severity: Fat Layer Exposed Amount of bleeding with debridement: Mild Bleeding Controlled with: Pressure Patient tolerated procedure: Patient tolerated procedure well, - - Theraskin #2 applied today. Expiration - 06/25/23. Product Lot Number - [id number]. Percent used - 100%. Saline Lot Number - [id number]. Assessment/Plan Assessment: 1. Nonhealing diabetic ulcer right lateral middle back. 2. Nonhealing diabetic ulcer left lateral middle back. 3. Diabetes mellitus. Plan: Theraskin #2 was applied today without difficulty. I used 39 cm2. Continue daily silver dressing changes. He will continue his Bactrim DS for the Staphylocoocus aureus culture from 10/22/18. Renewed his Percocet for pain (20 tabs). He will follow up in one week for another Theraskin application.
[2018-12-03 13:43] VITALS: BP 144/79; PULSE 88; TEMP 36.9; BMI 29.7
--- NOTE | 2018-12-03 21:44 | PCM.WC.PN ---
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 History of Wound: Patient presents today for continued evaluation and treatment of his nonhealing diabetic ulcers right lateral middle back and left lateral middle back. Patient states he had I&D procedures by his PCP of sebaceous cysts on his back in January, and March,. He has been coming to the [facility] since March. Various wound care modalities have been tried such as a SNAP VAC, Puroply, and Christie dressing changes. Healing has been slow. Patient is diabetic and his recent HgbA1c was 5.8 from 10/23/18. He had a wound culture on 04/26/18 which showed Staphylococcus epidermidis and he was treated with Doxycycline. Patient takes nutritional supplementation with protein to help the healing process. On 06/12/18 Dr. Lemus took him to the OR where he underwent surgical preparation right lateral middle back with excision 1.2 cm nonhealing diabetic ulcer and rhomboid transposition skin flap reconstruction (18 cm2) and surgical preparation left lateral middle back with excision 3 cm nonhealing diabetic ulcer and rhomboid transposition skin flap reconstruction (50 cm2). The operative culture of the left grew left lateral middle back ulcer grew Staphylococcus lugdunsis and Staphylococcus epidermidis. He was placed on Augmentin. These flaps opened up and started to drain. A wound culture was done on 07/09/18 where the left lateral middle back ulcer grew Staphylococcus haemolyticus. He was placed on Levaquin. Wound Culture from 10/22/18 grew Staphylococcus aureus and he was started on Bactrim DS. Patient denies any fevers or loss of appetite today. He has not shown as much improvement as we had hoped with the two application of Theraskin thus far, obtained a wound culture to make sure there isn't bacteria preventing wound healing. If the cultures are positive then we may need change his current antibiotic of Bactrim. Referred him back to his PCP for blood work up to make sure there is nothing medical going on to prevent wound healing. He had Therakin #3 applied today. Progress of Wound: Stable. - Physical Exam Vital Signs Temp Pulse Resp BP 98.4 F 88 16 144/79 H 12/03/18 13:43 12/03/18 13:43 11/26/18 13:42 12/03/18 13:43 General: Alert, Oriented x3, Cooperative HEENT: Atraumatic Oral: Moist Mucosa Lungs: Normal air movement Cardiovascular: Regular rate Extremities: No edema, Capillary Refill Less than 3 Seconds Skin: Ulcer/ Wound - Right middle back and left middle back Wound Measurements and Assessment WC - Nurse 1 - General Ulcer Measurement Start: 11/19/18 08:16 Freq: Status: Active Protocol: Activity Type Activity Date Activity User E-Sign Co-Sign Detail Recorded Client Recorded Date Recorded By Document 12/03/18 13:43 [place] [id number] 12/03/18 13:56 [place] 12/03/18 13:43 Wound Center Nurse 1 [Ulcer Assessment] 6. L lumbar back -Current Size (cm) - Length 5.5 -Current Size (cm) - Width 5.0 -Current Size (cm) - Depth 0.1 -Total Square Cm 27.50 -Exudate Amt Small -Exudate Type Serosanguineous -Wound Margin Flat & Intact -Granulation Amt Large (67-100%) -Granulation Quality Pale,[place] -Slough/Fibrin No -Texture (Mayra-wound Skin Appearance) Assessed -Moisture (Mayra-wound Skin Appearance Assessed, ) Maceration -Color (Mayra-wound Skin Appearance) Assessed -Temperature (Mayra-wound Skin No Abnormality Appearance) (Pt Warm) -Tenderness on Palpation (Mayra-wound Yes Skin Appearance) -Ulcer Cleansing Rinsed/ Irrigated with Saline -Foul Odor after Cleansing No -Anesthetic Used 4% Lidocaine Solution 5. R scapula -Current Size (cm) - Length 3.0 -Current Size (cm) - Width 1.5 -Current Size (cm) - Depth 0.1 -Total Square Cm 4.50 -Exudate Amt Small -Exudate Type Serosanguineous -Wound Margin Flat & Intact -Granulation Amt Large (67-100%) -Granulation Quality Pale,[place] -Slough/Fibrin No -Texture (Mayra-wound Skin Appearance) Assessed -Moisture (Mayra-wound Skin Appearance Assessed, ) Maceration -Color (Mayra-wound Skin Appearance) Assessed -Temperature (Mayra-wound Skin No Abnormality Appearance) (Pt Warm) -Tenderness on Palpation (Mayra-wound Yes Skin Appearance) -Ulcer Cleansing Rinsed/ Irrigated with Saline -Foul Odor after Cleansing No -Anesthetic Used 4% Lidocaine Solution [Edema Assessment] -Lower Limb Edema Present NA WC - Nurse 2 - General Ulcer CM Notes Start: 11/19/18 08:16 Freq: Status: Active Protocol: Activity Type Activity Date Activity User E-Sign Co-Sign Detail Recorded Client Recorded Date Recorded By Document 12/03/18 14:12 [facility] [id number] 12/03/18 14:15 [facility] 12/03/18 14:12 Wound Center Nurse 2 [Procedure/Treatment] 6. L lumbar back -Time 14:13 -Correct Patient Yes -Correct Side, Site, Position Yes -Correct Procedure Yes -Procedure Performed Yes -Type of Procedure Debridement -Clinical Debridement Subcutaneous -Post Debridement Size (cm) - Length 4.5 -Post Debridement Size (cm) - Width 4.5 -Post Debridement Size (cm) - Depth 0.2 -Total Square Cm 20.25 -Wound/Ulcer Outcome Not Healed -Ulcer Cleansing Rinsed/ Irrigated with Saline -Foul Odor after Cleansing No -Bioengineered Tissue Yes -Type of bioengineered Tissue THERASKIN -Expiration Date 08/09/23 -Product Lot Number [id number] -Percent Used 100 -Saline Lot Number [id number] -Bleeding Controlled with Pressure -Offloading No -Treatment Response Procedure Tolerated Well 5. R scapula -Time 14:14 -Correct Patient Yes -Correct Side, Site, Position Yes -Correct Procedure Yes -Procedure Performed Yes -Type of Procedure Debridement -Clinical Debridement Subcutaneous -Post Debridement Size (cm) - Length 1.1 -Post Debridement Size (cm) - Width 3 -Post Debridement Size (cm) - Depth 0.1 -Total Square Cm 3.3 -Wound/Ulcer Outcome Not Healed -Ulcer Cleansing Rinsed/ Irrigated with Saline -Foul Odor after Cleansing No -Bioengineered Tissue Yes -Type of bioengineered Tissue THERASKIN -Expiration Date 08/09/23 -Product Lot Number [id number] -Percent Used 100 -Saline Lot Number [id number] -Bleeding Controlled with Pressure -Offloading No -Treatment Response Procedure Tolerated Well [See Physician Procedure note for Specifics] Pain Scale: 0-10 Numeric [Pain] -Is Patient Pain Free? Yes Musculoskeletal: No Tenderness to Palpation of Joints or Extremities Neurological: Neuro grossly intact Psych/Mental Status: Normal Affect, Appropriate Debridement Note Post-Debridement Measurements/Treatment WC - Nurse 2 - General Ulcer CM Notes Start: 11/19/18 08:16 Freq: Status: Active Protocol: Activity Type Activity Date Activity User E-Sign Co-Sign Detail Recorded Client Recorded Date Recorded By Document 11/19/18 09:00 [id number] 11/19/18 09:01 Document 11/26/18 13:57 DV [id number] 11/26/18 14:04 Document 12/03/18 14:12 [id number] 12/03/18 14:15 11/19/18 11/26/18 12/03/18 09:00 13:57 14:12 Wound Center Nurse 2 6. L lumbar back -Time 14:01 14:13 -Correct Patient No Yes Yes -Correct Side, Site, Position No Yes Yes -Correct Procedure No Yes Yes -Procedure Performed No Yes Yes -Type of Procedure Debridement Debridement -Clinical Debridement Subcutaneous Subcutaneous -Post Debridement Size (cm) - Length 4.5 4.5 -Post Debridement Size (cm) - Width 4.6 4.5 -Post Debridement Size (cm) - Depth 0.2 0.2 -Total Square Cm 20.70 20.25 -Wound/Ulcer Outcome Not Healed Not Healed Not Healed -Ulcer Cleansing Rinsed/ Rinsed/ Irrigated with Irrigated with Saline Saline -Foul Odor after Cleansing No No -Bioengineered Tissue Yes Yes -Type of bioengineered Tissue THERASKIN THERASKIN -Expiration Date 06/25/23 08/09/23 -Product Lot Number [id number] -Percent Used 100 100 -Saline Lot Number [id number] -Bleeding Controlled with Pressure Pressure -Offloading No No -Treatment Response Procedure Procedure Tolerated Well Tolerated Well 5. R scapula -Time 14:03 14:14 -Correct Patient No Yes Yes -Correct Side, Site, Position No Yes Yes -Correct Procedure No Yes Yes -Procedure Performed No Yes Yes -Type of Procedure Debridement Debridement -Clinical Debridement Subcutaneous Subcutaneous -Post Debridement Size (cm) - Length 1.5 1.1 -Post Debridement Size (cm) - Width 2.6 3 -Post Debridement Size (cm) - Depth 0.2 0.1 -Total Square Cm 3.90 3.3 -Wound/Ulcer Outcome Not Healed Not Healed Not Healed -Ulcer Cleansing Rinsed/ Rinsed/ Irrigated with Irrigated with Saline Saline -Foul Odor after Cleansing No No -Bioengineered Tissue Yes Yes -Type of bioengineered Tissue THERASKIN THERASKIN -Expiration Date 06/25/23 08/09/23 -Product Lot Number [id number] -Percent Used 100 100 -Saline Lot Number [id number] -Bleeding Controlled with Pressure Pressure -Offloading No No -Treatment Response Procedure Procedure Tolerated Well Tolerated Well Pain Scale: 0-10 Numeric Is Patient Pain Free? Yes Yes Yes Wound debrided: Right middle back Type of Debridement: Excisional debridement Anesthesia Used: 4% Lidocaine Solution, 5% Lidocaine Gel Depth: Down to and including healthy tissue, in the subcutaneous layer Percentage of wound debrided: 100 Instrument Used: 7mm curette Tissue Removed: Subcutaneous tissue and slough Severity: Fat Layer Exposed Amount of bleeding with debridement: Mild Bleeding Controlled with: Compression and gauze Patient tolerated procedure well, Patient did not tolerate procedure well - Additional Wound Wound debrided: Left middle back ulcer Type of Debridement: Excisional debridement Anesthesia Used: 4% Lidocaine Solution, 5% Lidocaine Gel Depth: Down to and including healthy tissue, in the subcutaneous layer Percentage of wound debrided: 100 Instrument Used: 7mm curette Tissue Removed: Subcutaneous tissue and slough Severity: Fat Layer Exposed Amount of bleeding with debridement: Mild Bleeding Controlled with: Pressure, Compression and gauze Patient tolerated procedure: Patient tolerated procedure well Assessment/Plan Assessment: 1. Nonhealing diabetic ulcer right lateral middle back. 2. Nonhealing diabetic ulcer left lateral middle back. 3. Diabetes mellitus. Plan: Theraskin #3 was applied today without difficulty. I used 39 cm2. 100% of the product was used. He will continue his Bactrim DS for the Staphylocoocus aureus culture from 10/22/18. He has not shown as much improvement as we had expected with the two applications of Theraskin, obtained a wound culture to make sure there isn't bacteria preventing wound healing. If the cultures are positive then we may need change or add to his current antibiotic of Bactrim. Referred him back to his PCP for blood work up to make sure there is nothing medical going on to prevent wound healing. He had Dimitri #3 applied today. He will follow up in one week. Code Visit [id number]: [id number] Skin sub graft trnk/arm/leg
[2018-12-10 11:30] VITALS: BP 125/69; PULSE 83; RESP 16; TEMP 36.9; BMI 29.7
--- NOTE | 2018-12-10 17:18 | PN.PCM_ITS ---
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 Comment: Nonhealing ulcers right lateral middle back and left lateral middle back (2) Type 2 diabetes mellitus Status: Chronic Qualifiers: Code(s): E11.9 - Type 2 diabetes mellitus without complications Type of Wound Date of Service: 12/10/18 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: Nonhealing diabetic ulcers left lateral middle back and right lateral middle back. History of Wound: Patient presents today for continued evaluation and treatment of his nonhealing diabetic ulcers right lateral middle back and left lateral middle back. Patient states he had I&D procedures by his PCP of sebaceous cysts on his back in January, and March,. He has been coming to [facility] since March. Various wound care modalities have been tried such as a SNAP VAC, Puroply, and Christie dressing changes. Healing has been slow. Patient is diabetic and his recent HgbA1c was 5.8 from 10/23/18. He had a wound culture on 04/26/18 which showed Staphylococcus epidermidis and he was treated with Doxycycline. Patient takes nutritional supplementation with protein to help the healing process. On 06/12/18 Dr. Lemus took him to the OR where he underwent surgical preparation right lateral middle back with excision 1.2 cm nonhealing diabetic ulcer and rhomboid transposition skin flap reconstruction (18 cm2) and surgical preparation left lateral middle back with excision 3 cm nonhealing diabetic ulcer and rhomboid transposition skin flap reconstruction (50 cm2). The operative culture of the left grew left lateral middle back ulcer grew Staphylococcus lugdunsis and Staphylococcus epidermidis. He was placed on Augmentin. These flaps opened up and started to drain. A wound culture was done on 07/09/18 where the left lateral middle back ulcer grew Staphylococcus haemolyticus. He was placed on Levaquin. Wound Culture from 10/22/18 grew Staphylococcus aureus and he was started on Bactrim DS. Patient denies any fevers or loss of appetite today. He has not shown as much improvement as we had hoped with the two application of Theraskin thus far, obtained a wound culture to make sure there isn't bacteria preventing wound healing. If the cultures are positive then we may need change his current antibiotic of Bactrim. Referred him back to his PCP for blood work up to make sure there is nothing medical going on to prevent wound healing. He had Therakin #3 applied last week. Progress of Wound: Stable. - Physical Exam Vital Signs Temp Pulse Resp BP 98.4 F 83 16 125/69 H 12/10/18 11:30 12/10/18 11:30 12/10/18 11:30 12/10/18 11:30 General: Alert, Oriented x3, Cooperative HEENT: Atraumatic Oral: Moist Mucosa Lungs: Normal air movement Cardiovascular: Regular rate Extremities: No edema, Capillary Refill Less than 3 Seconds Skin: Ulcer/ Wound - Right middle back ulcer and left middle back ulcer Wound Measurements and Assessment WC - Nurse 1 - General Ulcer Measurement Start: 11/19/18 08:16 Freq: Status: Active Protocol: Activity Type Activity Date Activity User E-Sign Co-Sign Detail Recorded Client Recorded Date Recorded By Document 12/10/18 11:30 MW [id number] 12/10/18 11:33 MW 12/10/18 11:30 Wound Center Nurse 1 [Ulcer Assessment] 6. L lumbar back -Combined with other wound No [Edema Assessment] -Lower Limb Edema Present No WC - Nurse 2 - General Ulcer CM Notes Start: 11/19/18 08:16 Freq: Status: Active Protocol: Activity Type Activity Date Activity User E-Sign Co-Sign Detail Recorded Client Recorded Date Recorded By Document 12/10/18 12:02 [id number] 12/10/18 12:03 12/10/18 12:02 Wound Center Nurse 2 [Procedure/Treatment] 6. L lumbar back -Correct Patient No -Correct Side, Site, Position No -Correct Procedure No -Procedure Performed No -Wound/Ulcer Outcome Not Healed -Ulcer Cleansing Rinsed/ Irrigated with Saline -Foul Odor after Cleansing No 5. R scapula -Correct Patient No -Correct Side, Site, Position No -Correct Procedure No -Procedure Performed No -Wound/Ulcer Outcome Not Healed -Bleeding Controlled with Pressure -Offloading No -Treatment Response Procedure Tolerated Well [See Physician Procedure note for Specifics] Pain Scale: 0-10 Numeric [Pain] -Is Patient Pain Free? Yes Musculoskeletal: No Tenderness to Palpation of Joints or Extremities Neurological: Neuro grossly intact Psych/Mental Status: Normal Affect, Appropriate Debridement Note Post-Debridement Measurements/Treatment WC - Nurse 2 - General Ulcer CM Notes Start: 11/19/18 08:16 Freq: Status: Active Protocol: Activity Type Activity Date Activity User E-Sign Co-Sign Detail Recorded Client Recorded Date Recorded By Document 11/19/18 09:00 [id number] 11/19/18 09:01 Document 11/26/18 13:57 [id number] 11/26/18 14:04 DV Document 12/03/18 14:12 [id number] 12/03/18 14:15 Document 12/10/18 12:02 [id number] 12/10/18 12:03 11/19/18 11/26/18 12/03/18 09:00 13:57 14:12 Wound Center Nurse 2 6. L lumbar back -Time 14:01 14:13 -Correct Patient No Yes Yes -Correct Side, Site, Position No Yes Yes -Correct Procedure No Yes Yes -Procedure Performed No Yes Yes -Type of Procedure Debridement Debridement -Clinical Debridement Subcutaneous Subcutaneous -Post Debridement Size (cm) - Length 4.5 4.5 -Post Debridement Size (cm) - Width 4.6 4.5 -Post Debridement Size (cm) - Depth 0.2 0.2 -Total Square Cm 20.70 20.25 -Wound/Ulcer Outcome Not Healed Not Healed Not Healed -Ulcer Cleansing Rinsed/ Rinsed/ Irrigated with Irrigated with Saline Saline -Foul Odor after Cleansing No No -Bioengineered Tissue Yes Yes -Type of bioengineered Tissue THERASKIN THERASKIN -Expiration Date 06/25/23 08/09/23 -Product Lot Number [id number] -Percent Used 100 100 -Saline Lot Number [id number] -Bleeding Controlled with Pressure Pressure -Offloading No No -Treatment Response Procedure Procedure Tolerated Well Tolerated Well 5. R scapula -Time 14:03 14:14 -Correct Patient No Yes Yes -Correct Side, Site, Position No Yes Yes -Correct Procedure No Yes Yes -Procedure Performed No Yes Yes -Type of Procedure Debridement Debridement -Clinical Debridement Subcutaneous Subcutaneous -Post Debridement Size (cm) - Length 1.5 1.1 -Post Debridement Size (cm) - Width 2.6 3 -Post Debridement Size (cm) - Depth 0.2 0.1 -Total Square Cm 3.90 3.3 -Wound/Ulcer Outcome Not Healed Not Healed Not Healed -Ulcer Cleansing Rinsed/ Rinsed/ Irrigated with Irrigated with Saline Saline -Foul Odor after Cleansing No No -Bioengineered Tissue Yes Yes -Type of bioengineered Tissue THERASKIN THERASKIN -Expiration Date 06/25/23 08/09/23 -Product Lot Number [id number] -Percent Used 100 100 -Saline Lot Number [id number] -Bleeding Controlled with Pressure Pressure -Offloading No No -Treatment Response Procedure Procedure Tolerated Well Tolerated Well Pain Scale: 0-10 Numeric Is Patient Pain Free? Yes Yes Yes 12/10/18 12:02 Wound Center Nurse 2 6. L lumbar back -Time -Correct Patient No -Correct Side, Site, Position No -Correct Procedure No -Procedure Performed No -Type of Procedure -Clinical Debridement -Post Debridement Size (cm) - Length -Post Debridement Size (cm) - Width -Post Debridement Size (cm) - Depth -Total Square Cm -Wound/Ulcer Outcome Not Healed -Ulcer Cleansing Rinsed/ Irrigated with Saline -Foul Odor after Cleansing No -Bioengineered Tissue -Type of bioengineered Tissue -Expiration Date -Product Lot Number -Percent Used -Saline Lot Number -Bleeding Controlled with -Offloading -Treatment Response 5. R scapula -Time -Correct Patient No -Correct Side, Site, Position No -Correct Procedure No -Procedure Performed No -Type of Procedure -Clinical Debridement -Post Debridement Size (cm) - Length -Post Debridement Size (cm) - Width -Post Debridement Size (cm) - Depth -Total Square Cm -Wound/Ulcer Outcome Not Healed -Ulcer Cleansing -Foul Odor after Cleansing -Bioengineered Tissue -Type of bioengineered Tissue -Expiration Date -Product Lot Number -Percent Used -Saline Lot Number -Bleeding Controlled with Pressure -Offloading No -Treatment Response Procedure Tolerated Well Pain Scale: 0-10 Numeric Is Patient Pain Free? Yes No debridement was completed today Assessment/Plan Assessment: 1. Nonhealing diabetic ulcer right lateral middle back. 2. Nonhealing diabetic ulcer left lateral middle back. 3. Diabetes mellitus. Plan: Theraskin #3 was applied last week. I used 39 cm2. 100% of the product was used. He will continue his Bactrim DS for the Staphylocoocus aureus culture from 10/22/18. He has not shown as much improvement as we had expected with the two applications of Theraskin, obtained a wound culture to make sure there isn't bacteria preventing wound healing. Wound cultures from 12/03/2018 grew Staphylococcus aureus, Staphylococcus epidermidis, Staphylococcus haemolyticus. He was instructed to stop the Bactrim and was ordered Doxycycline. We referred him back to his PCP for blood work up to make sure there is nothing medical going on to prevent wound healing, those lab results are not back yet. He had Therakin #3 applied last week. Measured ulcers and they appear smaller. Will leave the TheraSkin in place this week, then continue with TheraSkin treatment n ext week. He will follow up in one week. Code Visit Office Visits / Consults: [id number] OV L3 Est
== END 2018-12-15 23:59 ==
LOC: WC 11:00
PROVIDERS: Family Provider Family Medicine; PCP Family Medicine; Visit Provider Nurse Practitioner Family
DX: E11.622 Type 2 diabetes mellitus with other skin ulcer (principal); L98.422 Non-pressure chronic ulcer of back with fat layer exposed; L72.3 Sebaceous cyst
CPT/HCPCS: 15271; 15272; 87070; 87075; 87077; 87186; 87205; 99213; Q4121; Q4187; G0463

== ENCOUNTER 2018-12-25 07:32 | Day surgery (SDC) | payer OTHER, SELFPAY ==
[2018-12-18 14:34] VITALS: BMI 29.7
--- NOTE | 2018-12-24 22:56 | PCM.HP.BLA ---
History and Physical Date of Admission: 12/25/18 HISTORY OF PRESENT ILLNESS 58 year old man presents with nonhealing diabetic ulcers right lateral middle back and left lateral middle back. Patient states he had I&D procedures by his PCP of sebaceous cysts on his back in January, and March,. He developed nonhealing ulcers and was taken to surgery on 06/12/18 where he underwent surgical preparation right lateral middle back with excision 1.2 cm nonhealing diabetic ulcer and rhomboid transposition skin flap reconstruction (18 cm2) and surgical preparation left lateral middle back with excision 3 cm nonhealing diabetic ulcer and rhomboid transposition skin flap reconstruction (50 cm2). There was concern for skin cancer at that time because of the nonhealing nature of the ulcers. Pathology was negative for carcinoma. Operative culture was positive for Staphylococcus epidermidis and Staphylococcus lugdunensis on the left. The right side was negative. He was treated with antibiotics. He has intermittently had the left side cultured which has always shown Staphylococcus. His most recent culture was done on 12/03/18 which showed Staphylococcus aureus, Staphylococcus epidermidis, and Methicillin resistant Staphylococcus haemolyticus. He was placed on Doxycycline. Thera-skin allograft was recently tried on these nonhealing ulcers without much improvement. It was recommended to the patient to proceed with an operative debridement of these ulcers to see if a fresh wound base was needed to jump start the healing process. Will also place Thera-skin in the OR as well. Will send the tissue to Pathology and to Microbiology as well. His latest HgbA1c was 5.8 on 10/23/18. He was not interested in an autograft for reconstruction because of the fear that the donor site may have trouble healing as well. PAST MEDICAL HISTORY Nonhealing ulcers right lateral middle back and left lateral middle back Trigger finger, left ring finger Hypertension Neuroma PAST SURGICAL HISTORY surgical preparation right lateral middle back with excision 1.2 cm nonhealing diabetic ulcer and rhomboid transposition skin flap reconstruction (18 cm2) and surgical preparation left lateral middle back with excision 3 cm nonhealing diabetic ulcer and rhomboid transposition skin flap reconstruction (50 cm2) - 06/12/18 ALLERGIES No Known Allergies Allergy MEDICATIONS Albuterol. Diclofenac. Doxycycline. Acidophilus. FAMILY HISTORY Grandfather - Cancer Father - Prostate cancer Grandfather - CVA (cerebral vascular accident) SOCIAL HISTORY Smoking Status: Never smoker REVIEW OF SYSTEMS Constitutional: Denies: Chills, Fever, Weight Change. Eyes: Denies: Pain, Vision Change. HEENT: Denies: Difficulty Hearing, Difficulty Swallowing, Sinus Congestion. Cardiovascular: Denies: Chest Pain, Palpitations. Respiratory: Denies: Cough, Shortness of Breath. Gastrointestinal: Denies: Diarrhea, Nausea, Vomiting. Genitourinary: Denies: Dysuria, Hematuria. Skin: Reports: Wounds - See HPI. Endocrine: Denies: Heat/ Cold Intolerance, Polydipsia, Polyuria. Hematologic/ Lymphatic: Denies: Easy Bruising, Easy Bleeding PHYSICAL EXAMINATION General: Alert, Oriented x3 HEENT: PERRLA, EOMI Oral: Moist Mucosa Neck: Supple Lungs: Clear to auscultation Cardiovascular: Regular rate, Regular Rhythm Abdomen: Soft, Non-Distended Extremities: No clubbing, No cyanosis, No edema Skin: Ulcer/ Wound - There are nonhealing diabetic ulcers right lateral middle back and left lateral middle back. Good granulation tissue is seen. No evidence of cellulitis, fluctuance, or purulent drainage. Mild tenderness to palpation. Measures 6 X 5 cm on the left and 4 X 2 cm on the right. Lymphatic: - - no axillary adenopathy. Neurological: Cranial nerves II-XII grossly intact Psych/Mental Status: Normal Affect, Appropriate ASSESSMENT 1. Nonhealing diabetic ulcer right lateral middle back. 2. Nonhealing diabetic ulcer left lateral middle back. 3. Diabetes mellitus. PLAN Continue Doxycycline antibiotics. Recommend operative intervention with excisional debridement of the nonhealing diabetic ulcers right lateral middle back and left lateral middle back. Will send tissue to Pathology for analysis to rule out carcinoma and to Microbiology for culture. A positive culture will necessitate antibiotic therapy. Will place a Thera-skin allograft over the surgical wounds. Will continue placement of Thera-skin allograft at the Wound Center on a weekly basis. The patient did not want to use an autograft because of the concern that his donor site would not heal properly. His latest HgbA1c was 5.8 on 10/23/18. Surgery will be done under general anesthesia on an outpatient basis. Patient was informed of the risks and complications of the procedure including alternatives to surgery. These were discussed with the patient personally. Patient voices understanding and wishes to proceed.
[2018-12-25 08:01] VITALS: BP 125/65; PULSE 76; RESP 16; TEMP 36.7; O2SAT 100; BMI 28.0
[2018-12-25] MEDS: Lactated Ringers 1,000 ML 100 ML IV (08:16)
[2018-12-25] MEDS: Vancomycin IV 1,000 MG/200 ML BAG 200 MG IV (08:16)
--- NOTE | 2018-12-25 09:00 | UL_PTH ---
PATIENT: BILL JACQUES [place] [facility] [id number] AGE/SX: 58/M ROOM: RE12/25/[address]: Dr. David Lemus MD : 1960 BED: DIS: 12/25/2018 SPEC #: [id number] RECD: 12/25/18 10:53 STATUS: LORAINE REQ #: [id number] DELMY: 12/25/18 09:[address]: David Lemus DEPT: SURGICAL PATHOLOGY RECD BY: Sheila Martinez ENTERED: 12/25/18 12:03 SP TYPE: ULCER OTHR DR: Dr. Ryan Gandhi, DO Tissues: A - ULCER B - ULCER Procedures: PAS Fungus (control) Special Stain Group I Surgery Specimen Level IV HEADER OPERATION: Surgical prep bilateral back with excisional debridement PRE-OP DIAGNOSIS: Nonhealing diabetic ulcer right lateral middle back TISSUE SUBMITTED: A. Left lateral middle back, B. Right lateral middle back MICROSCOPIC DIAGNOSIS A. Skin and soft tissue, left lateral middle back, excision: Ulceration with associated acute and chronic inflammation and granulation. Negative for fungal organisms. See comment. B. Skin and soft tissue, right lateral middle back, excision: Ulceration with associated acute and chronic inflammation and granulation. Negative for fungal organisms. See comment. AM:js 12/26/18 COMMENT A & B. PASF stain with matched control supports the above diagnosis. MICROSCOPIC DESCRIPTION Slides are reviewed. GROSS DESCRIPTION A - Received in fixative is one container labeled with the patient's name and designated left lateral middle back diabetic ulcer. The specimen consists of an irregular piece of sharma-white skin measuring 6.5 x 3 cm and up to 0.7 cm in thickness. The skin surface shows extensive area of ulceration. Hog Feeder sections are submitted in two cassettes. B - Received in fixative is one container labeled with the patient's name and designated right lateral middle back diabetic ulcer. The specimen consists of a piece of skin with underlying tissue measuring 4 x 1.5 x 1.5 cm. The skin surface shows extensive ulceration. The entire specimen is submitted in two cassettes. / RIGO:js 12/25/18 TC:2 CPT: 37733 x2, 74114 x2
[2018-12-25] MEDS: Mupirocin Ointment 22gm Tube 1 APPLIC (10:14)
[2018-12-25 10:31] VITALS: BP 125/65; BP 129/69; PULSE 74; RESP 14; TEMP 36.2; O2SAT 95
--- NOTE | 2018-12-25 10:32 | PCM.OPRPT ---
Report of Operation Date of Procedure: 12/25/18 Pre-Operative Diagnosis: 1. Nonhealing diabetic ulcer right lateral middle back. 2. Nonhealing diabetic ulcer left lateral middle back. 3. Diabetes mellitus. Post-Operative Diagnosis: Same. Surgery/Procedure Performed:: 1. Surgical preparation left lateral middle back with excisional debridement nonhealing diabetic ulcer and reconstruction with placement of Thera-skin allograft (56 cm2) and AmnioFill Placental Connective Tissue Powder (500 mg) and placement of TAYLOR NPWT. 2. Surgical preparation right lateral middle back with excisional debridement nonhealing diabetic ulcer and reconstruction with placement of Thera-skin allograft (15 cm2) and AmnioFill Placental Connective Tissue Powder (250 mg) and placement of TAYLOR NPWT. Description of Surgical Findings:: 58 year old man presents with nonhealing diabetic ulcers right lateral middle back and left lateral middle back. Patient states he had I&D procedures by his PCP of sebaceous cysts on his back in January, and March,. He developed nonhealing ulcers and was taken to surgery on 06/12/18 where he underwent surgical preparation right lateral middle back with excision 1.2 cm nonhealing diabetic ulcer and rhomboid transposition skin flap reconstruction (18 cm2) and surgical preparation left lateral middle back with excision 3 cm nonhealing diabetic ulcer and rhomboid transposition skin flap reconstruction (50 cm2). There was concern for skin cancer at that time because of the nonhealing nature of the ulcers. Pathology was negative for carcinoma. Operative culture was positive for Staphylococcus epidermidis and Staphylococcus lugdunensis on the left. The right side was negative. He was treated with antibiotics. He has intermittently had the left side cultured which has always shown Staphylococcus. His most recent culture was done on 12/03/18 which showed Staphylococcus aureus, Staphylococcus epidermidis, and Methicillin resistant Staphylococcus haemolyticus. He was placed on Doxycycline. Thera-skin allograft was recently tried on these nonhealing ulcers without much improvement. It was recommended to the patient to proceed with an operative debridement of these ulcers to see if a fresh wound base was needed to jump start the healing process. Will also place Thera-skin in the OR as well. Will send the tissue to Pathology and to Microbiology as well. His latest HgbA1c was 5.8 on 10/23/18. He was not interested in an autograft for reconstruction because of the fear that the donor site may have trouble healing as well. Size of graft left lateral middle back - 8 x 7 cm. Size of graft right lateral middle back - 5 x 3 cm. I used Thera-skin Allograft, (3 x 6 inches or 116 cm2, 56 cm2 on the left and 15 cm2 on the right). Catalog Number - [id number]. Lot Number - [id number]. ID Number - [id number]. Expiration - September 27, 2023. I used AmnioFill Placental Connective Tissue Powder, (500 mg on the left and 250 mg on the right). Catalog Number - [id number]. Lot Number - [id number]. Expiration - May 18, 2023, (left). Catalog Number - [id number]. Lot Number - [id number]. Expiration - May 18, 2023, (right). customer support analyst: None Type of Anesthesia:: Local MAC - xylocaine with epinephrine and IV sedation. Specimen's removed: 1. Nonhealing diabetic ulcer left lateral middle back to Pathology and Microbiology. 2. Nonhealing diabetic ulcer right lateral middle back to Pathology and Microbiology. Drains: None. Estimated Blood Loss (mL): 25 ml. Description of Procedure: Patient was taken to OR in supine position and was given IV sedation. He was placed in the prone position. The back was prepped and draped in the usual fashion. SCD's were placed for DVT prophylaxis. Perioperative antibiotics were given intravenously. The nonhealing diabetic ulcers on the left lateral middle back and right lateral middle back were infiltrated with xylocaine and epinephrine. After waiting 5 minutes for the anesthetic to take effect, I proceeded with excisional debridement of these nonhealing diabetic ulcers down into the subcutaneous tissue. Some of the tissue was sent to Pathology for analysis to rule out carcinoma. Some of the tissue was sent to Microbiology for culture. A positive culture will necessitate antibiotic therapy. The wounds were irrigated with saline. Hemostasis was obtained with electrocautery. The size of the wound left lateral middle back was 8 x 7 cm or 56 cm2. The size of the wound right lateral middle back was 5 x 3 cm or 15 cm2. I sprayed AmnioFill Placental Connective Tissue Powder into both wounds. I used 500 mg in the left lateral middle back wound and I used 250 mg in the right lateral middle back wound. This will help improve the base of the wounds for healing with the Thera-skin allograft. I then placed Thera-skin allograft into both back wounds and secured to the skin edge using surgical clips. Surgical clips were also used for central quilting stabilization. The size of the Thera-skin allograft for the left lateral middle back wound was 8 x 7 cm or 56 cm2. The size of the Thera-skin allograft for the right lateral middle back wound was 5 x 3 cm or 15 cm2. I then applied Bactroban ointment to the graft followed by Mepitel nonadherent dressing. I used TAYLOR NPWT device to stabilize the graft during the initial healing process. Patient tolerated the procedure well and was sent to PACU in satisfactory condition. Patient will be sent home on antibiotics and pain medication. Patient will followup at the Wound Center next week for a wound check and takedown of the TAYLOR NPWT device and for discussion of the pathology report and for discussion of the Microbiology report. He will stay on Doxycycline perioperatively. Will continue re-application of Thera-skin at the Wound Center as needed. Grafts/Implants Used: Thera-skin allograft. AmnioFill Placental Connective Tissue Powder. - Complications None. - Admit VTE Documentation VTE Present on Admission: No VTE Mechan Device Prophylaxis: SCD's VTE Pharm Prophylaxis ordered?: No Code Visit Surgery Charges CPT - 23752 ICD-10 - L98.492, E11.9 45194 L98.492, E11.9 86557 L98.492, E11.9 68922 L98.492, E11.9 17471 L98.492, E11.9 34291 L98.492, E11.9
--- NOTE | 2018-12-25 10:38 | DCINST_ITS ---
You will use the following diet at home:: Calorie/Carbohydrate Controlled (specify 1200, 1400, etc) Discharge Activity: May Shower - wrap trunk with saran wrap during the shower. don't get TAYLOR dressing wet., - - no heavy lifting. May shower in (days): 2 - use saran wrap. do not get TAYLOR wet. May resume sexual activity in: No Restrictions Weight Bearing Status: Weight bearing as tolerated Lifting Restrictions: 20 lbs. Call your doctor if your incision/area has: Continuous Slow Oozing, Sudden Increased Bleeding, Increased Pain/ Swelling, Increased Redness, Foul Smelling Discharge, Swelling at the incision site Call your doctor if you observe: Fever of 101 or Higher, Coldness, Increased Pain, Shortness of breath, Chest pain, Calf discomfort, Uncontrolled pain Suture Line Care: - - TAYLOR NPWT device dressing. Change Dressing in (Days):: 6 - will change TAYLOR dressing at wound center. Cleanse incision/area with: - - may shower in two days. do not get TAYLOR wet. may use saran wrap around his trunk to cover the TAYLOR during the shower. Allergies/Adverse Reactions: Allergies No Known Allergies Allergy (Verified 12/24/18 11:47) Medications to take at Discharge albuterol sulfate HFA 90 mcg/actuation aerosol inhaler 2 puff INHALATION Q6H PRN 11/22/17 diclofenac 1 % topical gel 2 g TOPICAL ONCE PRN 10/23/18 Doxycycline Monohydrate 100 mg PO BID 14 Days #28 tab 12/25/18 Lactobacillus Acidophilus/Fos [Acidophilus Probiotic Tablet] 1 tab PO BID #30 tab 12/25/18 Oxycodone HCl/Acetaminophen [Percocet 5/325] 1 tab PO Q4H PRN PRN 7 Days #40 tab 12/25/18 The following prescriptions were given: Lactobacillus Acidophilus/Fos [Acidophilus Probiotic Tablet] 1 tab PO BID #30 tab Prescription Printed Doxycycline Monohydrate 100 mg PO BID 14 Days #28 tab Prescription Printed Oxycodone HCl/Acetaminophen [Percocet 5/325] 1 tab PO Q4H PRN PRN 7 Days #40 tab PRN Reason: Pain Prescription Printed Primary Care Physician: Ryan Gandhi DO [Primary Care Provider] - Test Results: Test results from this visit will be discussed in further detail at your follow- up appointment, if applicable. Please Follow Up With: David Lemus MD When: one week at wound center. call [phone] for appt. Proposed Discharge Date: 12/25/18
[2018-12-25 10:40] VITALS: BP 121/71; BP 125/65; PULSE 66; RESP 14; O2SAT 98
[2018-12-25 10:45] VITALS: BP 116/76; BP 125/65; PULSE 72; RESP 14; O2SAT 98
[2018-12-25 10:49] VITALS: BP 123/80; BP 125/65; PULSE 72; RESP 16; TEMP 36.2; O2SAT 98
[2018-12-25 11:31] VITALS: BP 125/65
== END 2018-12-25 12:00 | disposition home or self-care (01) ==
LOC: SDC 07:33 → AC 07:34
PROVIDERS: Family Provider Family Medicine; PCP Family Medicine; Referring Provider Surgery; Visit Provider Surgery
PROC: (CPT 15271; principal; 2018-12-25 08:45)
DX: E11.622 Type 2 diabetes mellitus with other skin ulcer (principal); L98.428 Non-pressure chronic ulcer of back with other specified severity; I10 Essential (primary) hypertension; G47.30 Sleep apnea, unspecified; Z87.891 Personal history of nicotine dependence
CPT/HCPCS: 00300; 15271; 15272; Q4121; 87070; 87075; 87077; 87102; 87186; 87205; 87206; 88304; 88305; 88312; J7120

== ENCOUNTER 2019-01-07 08:00 | Outpatient (RCR) | payer OTHER, SELFPAY ==
[2018-12-16 01:01] VITALS: BP 125/69; PULSE 83; RESP 16; TEMP 36.9
[2018-12-18 14:34] VITALS: BP 130/63; PULSE 76; RESP 18; TEMP 36.6; BMI 29.7
--- NOTE | 2018-12-18 17:11 | PCM.WC.PN ---
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 Comment: Nonhealing ulcers right lateral middle back and left lateral middle back (2) Type 2 diabetes mellitus Status: Chronic Qualifiers: Code(s): E11.9 - Type 2 diabetes mellitus without complications Type of Wound Date of Service: 12/18/18 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: Nonhealing diabetic ulcers left lateral middle back and right lateral middle back. History of Wound: Patient presents today for continued evaluation and treatment of his nonhealing diabetic ulcers right lateral middle back and left lateral middle back. Patient states he had I&D procedures by his PCP of sebaceous cysts on his back in January, and March,. He has been coming to the Wound Center since March. Various wound care modalities have been tried such as a SNAP VAC, Puroply, and Christie dressing changes. Healing has been slow. Patient is diabetic and his recent HgbA1c was 5.8 from 10/23/18. He had a wound culture on 04/26/18 which showed Staphylococcus epidermidis and he was treated with Doxycycline. Patient takes nutritional supplementation with protein to help the healing process. On 06/12/18 Dr. Lemus took him to the OR where he underwent surgical preparation right lateral middle back with excision 1.2 cm nonhealing diabetic ulcer and rhomboid transposition skin flap reconstruction (18 cm2) and surgical preparation left lateral middle back with excision 3 cm nonhealing diabetic ulcer and rhomboid transposition skin flap reconstruction (50 cm2). The operative culture of the left grew left lateral middle back ulcer grew Staphylococcus lugdunsis and Staphylococcus epidermidis. He was placed on Augmentin. These flaps opened up and started to drain. A wound culture was done on 07/09/18 where the left lateral middle back ulcer grew Staphylococcus haemolyticus. He was placed on Levaquin. Wound Culture from 10/22/18 grew Staphylococcus aureus and he was started on Bactrim DS. Patient denies any fevers or loss of appetite today. He has not shown as much improvement as we had hoped with the two application of Theraskin thus far, obtained a wound culture to make sure there isn't bacteria preventing wound healing. If the cultures are positive then we may need change his current antibiotic of Bactrim. Referred him back to his PCP for blood work up to make sure there is nothing medical going on to prevent wound healing. He had Therakin #4 applied last week. Progress of Wound: Stable. - Physical Exam Vital Signs Temp Pulse Resp BP 97.8 F 76 18 130/63 H 12/18/18 14:34 12/18/18 14:34 12/18/18 14:34 12/18/18 14:34 General: Alert, Oriented x3, Cooperative HEENT: Atraumatic Oral: Moist Mucosa Lungs: Normal air movement Cardiovascular: Regular rate Extremities: No edema, Capillary Refill Less than 3 Seconds Skin: Ulcer/ Wound - Two ulcer on left and right middle back Wound Measurements and Assessment WC - Nurse 1 - General Ulcer Measurement Start: 12/18/18 14:34 Freq: Status: Active Protocol: Activity Type Activity Date Activity User E-Sign Co-Sign Detail Recorded Client Recorded Date Recorded By Document 12/18/18 14:34 RB [id number] 12/18/18 14:38 RB 12/18/18 14:34 Wound Center Nurse 1 [Ulcer Assessment] 6. L lumbar back -Combined with other wound No -Current Size (cm) - Length 5.8 -Current Size (cm) - Width 5.1 -Current Size (cm) - Depth 0.2 -Total Square Cm 29.58 -Tunneling No -Undermining/Tunneling No -Circular Undermining No -Exudate Amt Medium -Exudate Type Serosanguineous -Wound Margin Flat & Intact -Granulation Amt Medium (34-66%) -Granulation Quality [place] -Slough/Fibrin Yes -Necrosis Amt Medium (34-66%) -Necrotic Tissue Type Adherent Slough -Structure Exposed N/A -Texture (Mayra-wound Skin Appearance) Assessed, Scarring -Moisture (Mayra-wound Skin Appearance Assessed ) -Color (Mayra-wound Skin Appearance) Assessed -Temperature (Mayra-wound Skin No Abnormality Appearance) (Pt Warm) -Tenderness on Palpation (Mayra-wound No Skin Appearance) -Ulcer Cleansing Wound Cleanser -Foul Odor after Cleansing No -Anesthetic Used 4% Lidocaine Solution,5% Lidocaine Gel 5. R scapula -Combined with other wound No -Current Size (cm) - Length 3.8 -Current Size (cm) - Width 1.5 -Current Size (cm) - Depth 0.1 -Total Square Cm 5.70 -Tunneling No -Undermining/Tunneling No -Circular Undermining No -Exudate Amt Medium -Exudate Type Serosanguineous -Wound Margin Flat & Intact -Granulation Amt Medium (34-66%) -Granulation Quality [place] -Slough/Fibrin Yes -Necrosis Amt Medium (34-66%) -Necrotic Tissue Type Adherent Slough -Structure Exposed N/A -Texture (Mayra-wound Skin Appearance) Assessed, Scarring -Moisture (Mayra-wound Skin Appearance Assessed ) -Color (Mayra-wound Skin Appearance) Assessed -Temperature (Mayra-wound Skin No Abnormality Appearance) (Pt Warm) -Tenderness on Palpation (Mayra-wound No Skin Appearance) -Ulcer Cleansing Wound Cleanser -Foul Odor after Cleansing No -Anesthetic Used 4% Lidocaine Solution,5% Lidocaine Gel WC - Nurse 2 - General Ulcer CM Notes Start: 12/18/18 14:34 Freq: Status: Active Protocol: Activity Type Activity Date Activity User E-Sign Co-Sign Detail Recorded Client Recorded Date Recorded By Document 12/18/18 14:57 [id number] 12/18/18 15:09 12/18/18 14:57 Wound Center Nurse 2 [Procedure/Treatment] 6. L lumbar back -Time 14:57 -Correct Patient Yes -Correct Side, Site, Position Yes -Correct Procedure Yes -Procedure Performed Yes -Type of Procedure Debridement -Clinical Debridement Subcutaneous -Post Debridement Size (cm) - Length 6 -Post Debridement Size (cm) - Width 4.5 -Post Debridement Size (cm) - Depth 0.2 -Total Square Cm 27.0 -Wound/Ulcer Outcome Not Healed -Ulcer Cleansing Rinsed/ Irrigated with Saline -Foul Odor after Cleansing No -Bioengineered Tissue Yes -Type of bioengineered Tissue THERASKIN -Expiration Date 09/20/23 -Product Lot Number [id number] -Percent Used 100 -Saline Lot Number [id number] -Bleeding Controlled with Pressure -Offloading No -Treatment Response Procedure Tolerated Well 5. R scapula -Time 14:58 -Correct Patient Yes -Correct Side, Site, Position Yes -Correct Procedure Yes -Procedure Performed Yes -Type of Procedure Debridement -Clinical Debridement Subcutaneous -Post Debridement Size (cm) - Length 1.7 -Post Debridement Size (cm) - Width 1.7 -Post Debridement Size (cm) - Depth 0.1 -Total Square Cm 2.89 -Wound/Ulcer Outcome Not Healed -Ulcer Cleansing Rinsed/ Irrigated with Saline -Foul Odor after Cleansing No -Bioengineered Tissue Yes -Type of bioengineered Tissue THERASKIN -Expiration Date 09/20/23 -Product Lot Number [id number] -Percent Used 100 -Saline Lot Number [id number] -Bleeding Controlled with Pressure -Offloading No -Treatment Response Procedure Tolerated Well [See Physician Procedure note for Specifics] Pain Scale: 0-10 Numeric [Pain] -Is Patient Pain Free? Yes Musculoskeletal: No Tenderness to Palpation of Joints or Extremities Neurological: Neuro grossly intact Psych/Mental Status: Normal Affect, Appropriate Debridement Note Post-Debridement Measurements/Treatment WC - Nurse 2 - General Ulcer CM Notes Start: 12/18/18 14:34 Freq: Status: Active Protocol: Activity Type Activity Date Activity User E-Sign Co-Sign Detail Recorded Client Recorded Date Recorded By Document 12/18/18 14:57 [id number] 12/18/18 15:09 12/18/18 14:57 Wound Center Nurse 2 6. L lumbar back -Time 14:57 -Correct Patient Yes -Correct Side, Site, Position Yes -Correct Procedure Yes -Procedure Performed Yes -Type of Procedure Debridement -Clinical Debridement Subcutaneous -Post Debridement Size (cm) - Length 6 -Post Debridement Size (cm) - Width 4.5 -Post Debridement Size (cm) - Depth 0.2 -Total Square Cm 27.0 -Wound/Ulcer Outcome Not Healed -Ulcer Cleansing Rinsed/ Irrigated with Saline -Foul Odor after Cleansing No -Bioengineered Tissue Yes -Type of bioengineered Tissue THERASKIN -Expiration Date 09/20/23 -Product Lot Number [id number] -Percent Used 100 -Saline Lot Number [id number] -Bleeding Controlled with Pressure -Offloading No -Treatment Response Procedure Tolerated Well 5. R scapula -Time 14:58 -Correct Patient Yes -Correct Side, Site, Position Yes -Correct Procedure Yes -Procedure Performed Yes -Type of Procedure Debridement -Clinical Debridement Subcutaneous -Post Debridement Size (cm) - Length 1.7 -Post Debridement Size (cm) - Width 1.7 -Post Debridement Size (cm) - Depth 0.1 -Total Square Cm 2.89 -Wound/Ulcer Outcome Not Healed -Ulcer Cleansing Rinsed/ Irrigated with Saline -Foul Odor after Cleansing No -Bioengineered Tissue Yes -Type of bioengineered Tissue THERASKIN -Expiration Date 09/20/23 -Product Lot Number [id number] -Percent Used 100 -Saline Lot Number [id number] -Bleeding Controlled with Pressure -Offloading No -Treatment Response Procedure Tolerated Well Pain Scale: 0-10 Numeric Is Patient Pain Free? Yes Wound debrided: Right middle back Laterality: Right Type of Debridement: Excisional debridement Anesthesia Used: 4% Lidocaine Solution, 5% Lidocaine Gel Depth: Down to and including healthy tissue, in the subcutaneous layer Percentage of wound debrided: 100 Instrument Used: 7mm curette Tissue Removed: Subcutaneous tissue and slough Severity: Fat Layer Exposed Amount of bleeding with debridement: Mild Bleeding Controlled with: Pressure, Compression and gauze Patient tolerated procedure well - Additional Wound Wound debrided: Left middle back ulcer Laterality: Left Type of Debridement: Excisional debridement Anesthesia Used: 4% Lidocaine Solution, 5% Lidocaine Gel Depth: Down to and including healthy tissue, in the subcutaneous layer Percentage of wound debrided: 100 Instrument Used: 5mm curette Tissue Removed: Subcutaneous tissue and slough Severity: Fat Layer Exposed Amount of bleeding with debridement: Mild Bleeding Controlled with: Pressure, Compression and gauze Patient tolerated procedure: Patient tolerated procedure well Assessment/Plan Assessment: 1. Nonhealing diabetic ulcer right lateral middle back. 2. Nonhealing diabetic ulcer left lateral middle back. 3. Diabetes mellitus. Plan: Theraskin #3 applied. I used 39 cm2. 100% of the product was used. He has not shown as much improvement as we had expected with the two applications of Theraskin, obtained a wound culture to make sure there isn't bacteria preventing wound healing. Wound cultures from 12/03/2018 grew Staphylococcus aureus, Staphylococcus epidermidis, Staphylococcus haemolyticus. He was instructed to stop the Bactrim and was ordered Doxycycline. We referred him back to his PCP for blood work up to make sure there is nothing medical going on to prevent wound healing, those lab results are not back yet. He continues to have more discomfort with the ulcers now than he has in the past. He is interested in having a surgical debridement with the placement of Theraskin afterward. Discussed options including nonsurgical options, and he would like to proceed with the surgical debridement. Reviewed risks and complications and he verbalizes understanding. This has been scheduled for next Monday. Code Visit 111xxx-113xx: 61186 Pooja subq tissue 20 sq cm/< Add On Codes: 86351 Pooja subq tissue add-on
[2018-12-31 08:12] VITALS: BP 109/65; PULSE 69; RESP 18; TEMP 37.1; BMI 29.7
--- NOTE | 2018-12-31 08:51 | PN.PCM_ITS ---
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 History of Wound: Patient presents today for continued evaluation and treatment of his nonhealing diabetic ulcers right lateral middle back and left lateral middle back. Patient states he had I&D procedures by his PCP of sebaceous cysts on his back in January, and March,. He has been coming to the [facility] since March. Various wound care modalities have been tried such as a SNAP VAC, Puroply, and Christie dressing changes. Healing has been slow. Patient is diabetic and his recent HgbA1c was 5.8 from 10/23/18. He had a wound culture on 04/26/18 which showed Staphylococcus epidermidis and he was treated with Doxycycline. Patient takes nutritional supplementation with protein to h elp the healing process. On 06/12/18 Dr. Lemus took him to the OR where he underwent surgical preparation right lateral middle back with excision 1.2 cm nonhealing diabetic ulcer and rhomboid transposition skin flap reconstruction (18 cm2) and surgical preparation left lateral middle back with excision 3 cm nonhealing diabetic ulcer and rhomboid transposition skin flap reconstruction (50 cm2). The operative culture of the left grew left lateral middle back ulcer grew Staphylococcus lugdunsis and Staphylococcus epidermidis. He was placed on Augmentin. These flaps opened up and started to drain. A wound culture was done on 07/09/18 where the left lateral middle back ulcer grew Staphylococcus haemolyticus. He was placed on Levaquin. Wound Culture from 10/22/18 grew Staphylococcus aureus and he was started on Bactrim DS. Patient denies any fevers or loss of appetite today. He has not shown as much improvement as we had hoped with the two application of Theraskin thus far, obtained a wound culture to make sure there isn't bacteria preventing wound healing. If the cultures are positive then we may need change his current antibiotic of Bactrim. Referred him back to his PCP for blood work up to make sure there is nothing medical going on to prevent wound healing. He had Therakin #3 placed. He went to OR on 12/25/18 for surgical preparation left lateral middle back with excisional debridement nonhealing diabetic ulcer and reconstruction with placement of Thera-skin allograft (56 cm2) and AmnioFill Placental Connective Tissue Powder (500 mg) and placement of TAYLOR NPWT and surgical preparation right lateral middle back with excisional debridement nonhealing diabetic ulcer and reconstruction with placement of Thera-skin allograft (15 cm2) and AmnioFill Placental Connective Tissue Powder (250 mg) and placement of TAYLOR NPWT. This week the ulcers look good. The operative theraskin is still in place. He would definately benefit from having the TAYLOR dressing placed at least for another week. There has been improvement of the depth of the ulcer. He is currently not having any of the pain that he was having before the surgical debridement. Progress of Wound: Ulcers improved with the TAYLOR vac that was placed after surgery last week. - Physical Exam Vital Signs Temp Pulse Resp BP 98.8 F 69 18 109/65 12/31/18 08:12 12/31/18 08:12 12/31/18 08:12 12/31/18 08:12 General: Alert, Oriented x3, Cooperative HEENT: Atraumatic Oral: Moist Mucosa Lungs: Normal air movement Cardiovascular: Regular rate Extremities: No edema Skin: Ulcer/ Wound - right lateral middle back and left lateral middle back ulcers currently with theraskin that was placed in the OR with surgical clips in place. Wound Measurements and Assessment WC - Nurse 1 - General Ulcer Measurement Start: 12/18/18 14:34 Freq: Status: Active Protocol: Activity Type Activity Date Activity User E-Sign Co-Sign Detail Recorded Client Recorded Date Recorded By Document 12/31/18 08:12 DL [id number] 12/31/18 08:24 DL 12/31/18 08:12 Wound Center Nurse 1 [Ulcer Assessment] 6. L lumbar back -Current Size (cm) - Length 0.1 -Current Size (cm) - Width 0.1 -Current Size (cm) - Depth 0.1 -Total Square Cm 0.01 -Photo Taken No -Exudate Amt Small -Exudate Type Serosanguineous -Wound Margin Distinct, Outline Attached -Texture (Mayra-wound Skin Appearance) No Abnormality -Moisture (Mayra-wound Skin Appearance No Abnormality ) -Color (Mayra-wound Skin Appearance) No Abnormality -Temperature (Mayra-wound Skin No Abnormality Appearance) (Pt Warm) -Tenderness on Palpation (Mayra-wound No Skin Appearance) -Ulcer Cleansing Wound Cleanser -Foul Odor after Cleansing No 5. R scapula -Current Size (cm) - Length 0.1 -Current Size (cm) - Width 0.1 -Current Size (cm) - Depth 1.1 -Total Square Cm 0.01 -Photo Taken No -Exudate Amt Small -Exudate Type Serosanguineous -Wound Margin Distinct, Outline Attached -Texture (Mayra-wound Skin Appearance) No Abnormality -Moisture (Mayra-wound Skin Appearance No Abnormality ) -Color (Mayra-wound Skin Appearance) No Abnormality -Temperature (Mayra-wound Skin No Abnormality Appearance) (Pt Warm) -Tenderness on Palpation (Mayra-wound No Skin Appearance) -Ulcer Cleansing Wound Cleanser -Foul Odor after Cleansing No WC - Nurse 2 - General Ulcer CM Notes Start: 12/18/18 14:34 Freq: Status: Active Protocol: Activity Type Activity Date Activity User E-Sign Co-Sign Detail Recorded Client Recorded Date Recorded By Document 12/31/18 08:36 [id number] 12/31/18 08:37 12/31/18 08:36 Wound Center Nurse 2 [Procedure/Treatment] 6. L lumbar back -Correct Patient No -Correct Side, Site, Position No -Correct Procedure No -Procedure Performed No -Wound/Ulcer Outcome Not Healed 5. R scapula -Correct Patient No -Correct Side, Site, Position No -Correct Procedure No -Procedure Performed No -Wound/Ulcer Outcome Not Healed [See Physician Procedure note for Specifics] Pain Scale: 0-10 Numeric [Pain] -Is Patient Pain Free? Yes Musculoskeletal: No Tenderness to Palpation of Joints or Extremities Neurological: Neuro grossly intact Psych/Mental Status: Normal Affect, Appropriate Debridement Note Post-Debridement Measurements/Treatment WC - Nurse 2 - General Ulcer CM Notes Start: 12/18/18 14:34 Freq: Status: Active Protocol: Activity Type Activity Date Activity User E-Sign Co-Sign Detail Recorded Client Recorded Date Recorded By Document 12/18/18 14:57 [id number] 12/18/18 15:09 Document 12/31/18 08:36 [id number] 12/31/18 08:37 12/18/18 12/31/18 14:57 08:36 Wound Center Nurse 2 6. L lumbar back -Time 14:57 -Correct Patient Yes No -Correct Side, Site, Position Yes No -Correct Procedure Yes No -Procedure Performed Yes No -Type of Procedure Debridement -Clinical Debridement Subcutaneous -Post Debridement Size (cm) - Length 6 -Post Debridement Size (cm) - Width 4.5 -Post Debridement Size (cm) - Depth 0.2 -Total Square Cm 27.0 -Wound/Ulcer Outcome Not Healed Not Healed -Ulcer Cleansing Rinsed/ Irrigated with Saline -Foul Odor after Cleansing No -Bioengineered Tissue Yes -Type of bioengineered Tissue THERASKIN -Expiration Date 09/20/23 -Product Lot Number [id number] -Percent Used 100 -Saline Lot Number [id number] -Bleeding Controlled with Pressure -Offloading No -Treatment Response Procedure Tolerated Well 5. R scapula -Time 14:58 -Correct Patient Yes No -Correct Side, Site, Position Yes No -Correct Procedure Yes No -Procedure Performed Yes No -Type of Procedure Debridement -Clinical Debridement Subcutaneous -Post Debridement Size (cm) - Length 1.7 -Post Debridement Size (cm) - Width 1.7 -Post Debridement Size (cm) - Depth 0.1 -Total Square Cm 2.89 -Wound/Ulcer Outcome Not Healed Not Healed -Ulcer Cleansing Rinsed/ Irrigated with Saline -Foul Odor after Cleansing No -Bioengineered Tissue Yes -Type of bioengineered Tissue THERASKIN -Expiration Date 09/20/23 -Product Lot Number [id number] -Percent Used 100 -Saline Lot Number [id number] -Bleeding Controlled with Pressure -Offloading No -Treatment Response Procedure Tolerated Well Pain Scale: 0-10 Numeric Is Patient Pain Free? 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 Nonhealing diabetic ulcer right lateral middle back. 2. Nonhealing diabetic ulcer left lateral middle back. 3. Diabetes mellitus. Plan: Theraskin #3 was applied 12/18/09. I used 39 cm2. 100% of the product was used. Wound cultures from 12/03/2018 grew Staphylococcus aureus, Staphylococcus epidermidis, Staphylococcus haemolyticus. He was instructed to stop the Bactrim and was ordered Doxycycline. We referred him back to his PCP for blood work up to make sure there is nothing medical going on to prevent wound healing, those lab results are not back yet. He went to OR on 12/25/18 for surgical preparation left lateral middle back with excisional debridement nonhealing diabetic ulcer and reconstruction with placement of Thera-skin allograft (56 cm2) and AmnioFill Placental Connective Tissue Powder (500 mg) and placement of TAYLOR NPWT and surgical preparation right lateral middle back with excisional debridement nonhealing diabetic ulcer and reconstruction with placement of Thera-skin allograft (15 cm2) and AmnioFill Placental Connective Tissue Powder (250 mg) and placement of TAYLOR NPWT. This week the ulcers look good. The operative theraskin is still in place. He would definately benefit from having the TAYLOR dressing placed at least for another week. There has been improvement of the depth of the ulcer. He is currently not having any of the pain that he was having before the surgical debridement. We need to await for approval of TAYLOR so will dress july wound with dry gauze. Hopefully TAYLOR will be approved within the next couple days so that we do not lose the progress that the surgical debridement and theraskin have done. Follow up this week for the TAYLOR vac placement then next week. Code Visit 30129
[2019-01-04 13:39] VITALS: BP 113/61; PULSE 88; RESP 20; TEMP 36.4; BMI 29.7
[2019-01-07 08:10] VITALS: BP 117/70; PULSE 69; RESP 16; TEMP 36.8; BMI 29.7
--- NOTE | 2019-01-07 23:00 | PCM.WC.PN ---
Type of Wound Date of Service: 01/07/19 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: Nonhealing diabetic ulcers left lateral middle back and right lateral middle back. History of Wound: Surgery 12/25/18 - 1. Surgical preparation left lateral middle back with excisional debridement nonhealing diabetic ulcer and reconstruction with placement of Thera-skin allograft (56 cm2) and AmnioFill Placental Connective Tissue Powder (500 mg) and placement of TAYLOR NPWT. 2. Surgical preparation right lateral middle back with excisional debridement nonhealing diabetic ulcer and reconstruction with placement of Thera-skin allograft (15 cm2) and AmnioFill Placental Connective Tissue Powder (250 mg) and placement of TAYLOR NPWT. Wound care - TAYLOR NPWT. Operative culture - MRSE in the left lateral middle back ulcer and the right lateral middle back ulcer. He is currently on Doxycycline. Patient is diabetic and his recent HgbA1c was 5.8 from 10/23/18. The operative theraskin is still in place. He is currently not having any of the pain that he was having before the surgical debridement. Today he denies fever. His appetite is ok. Progress of Wound: Improved since surgery on 12/25/18. - Physical Exam Vital Signs Temp Pulse Resp BP 98.2 F 69 16 117/70 01/07/19 08:10 01/07/19 08:10 01/07/19 08:10 01/07/19 08:10 Wound Measurements and Assessment WC - Nurse 1 - General Ulcer Measurement Start: 12/18/18 14:34 Freq: Status: Active Protocol: Activity Type Activity Date Activity User E-Sign Co-Sign Detail Recorded Client Recorded Date Recorded By Document 01/07/19 08:10 MW [id number] 01/07/19 08:19 MW 01/07/19 08:10 Wound Center Nurse 1 [Ulcer Assessment] 6. L lumbar back -Combined with other wound No 5. R scapula -Combined with other wound No [Edema Assessment] -Lower Limb Edema Present No WC - Nurse 2 - General Ulcer CM Notes Start: 12/18/18 14:34 Freq: Status: Active Protocol: Activity Type Activity Date Activity User E-Sign Co-Sign Detail Recorded Client Recorded Date Recorded By Document 01/07/19 09:37 JF [id number] 01/07/19 09:37 JF 01/07/19 09:37 Wound Center Nurse 2 [Procedure/Treatment] 6. L lumbar back -Correct Patient No -Correct Side, Site, Position No -Correct Procedure No -Procedure Performed No -Wound/Ulcer Outcome Not Healed 5. R scapula -Correct Patient No -Correct Side, Site, Position No -Correct Procedure No -Procedure Performed No -Wound/Ulcer Outcome Not Healed [See Physician Procedure note for Specifics] Pain Scale: 0-10 Numeric [Pain] -Is Patient Pain Free? Yes Debridement Note Post-Debridement Measurements/Treatment WC - Nurse 2 - General Ulcer CM Notes Start: 12/18/18 14:34 Freq: Status: Active Protocol: Activity Type Activity Date Activity User E-Sign Co-Sign Detail Recorded Client Recorded Date Recorded By Document 12/18/18 14:57 [id number] 12/18/18 15:09 Document 12/31/18 08:36 [id number] 12/31/18 08:37 Document 01/07/19 09:37 [id number] 01/07/19 09:37 12/18/18 12/31/18 01/07/19 14:57 08:36 09:37 Wound Center Nurse 2 6. L lumbar back -Time 14:57 -Correct Patient Yes No No -Correct Side, Site, Position Yes No No -Correct Procedure Yes No No -Procedure Performed Yes No No -Type of Procedure Debridement -Clinical Debridement Subcutaneous -Post Debridement Size (cm) - Length 6 -Post Debridement Size (cm) - Width 4.5 -Post Debridement Size (cm) - Depth 0.2 -Total Square Cm 27.0 -Wound/Ulcer Outcome Not Healed Not Healed Not Healed -Ulcer Cleansing Rinsed/ Irrigated with Saline -Foul Odor after Cleansing No -Bioengineered Tissue Yes -Type of bioengineered Tissue THERASKIN -Expiration Date 09/20/23 -Product Lot Number [id number] -Percent Used 100 -Saline Lot Number [id number] -Bleeding Controlled with Pressure -Offloading No -Treatment Response Procedure Tolerated Well 5. R scapula -Time 14:58 -Correct Patient Yes No No -Correct Side, Site, Position Yes No No -Correct Procedure Yes No No -Procedure Performed Yes No No -Type of Procedure Debridement -Clinical Debridement Subcutaneous -Post Debridement Size (cm) - Length 1.7 -Post Debridement Size (cm) - Width 1.7 -Post Debridement Size (cm) - Depth 0.1 -Total Square Cm 2.89 -Wound/Ulcer Outcome Not Healed Not Healed Not Healed -Ulcer Cleansing Rinsed/ Irrigated with Saline -Foul Odor after Cleansing No -Bioengineered Tissue Yes -Type of bioengineered Tissue THERASKIN -Expiration Date 09/20/23 -Product Lot Number [id number] -Percent Used 100 -Saline Lot Number [id number] -Bleeding Controlled with Pressure -Offloading No -Treatment Response Procedure Tolerated Well Pain Scale: 0-10 Numeric Is Patient Pain Free? Yes Yes Yes Wound debrided: #5 Right lateral middle back. Laterality: Right Wound Grade/Stage: 2. No debridement was completed today - He had recent surgery on 12/25/18 with placement of Thera-Skin graft. The surgical clips were removed today without difficulty. The Thera-Skin allograft shows good adherence. - Additional Wound Wound debrided: #6 Left lateral middle back. Laterality: Left Wound Grade/Stage: 2. Patient tolerated procedure: - - No debridement was done today as he had recent surgery on 12/25/18 with placement of Thera-Skin graft. The surgical clips were removed today without difficulty. The Thera-Skin allograft shows good adherence. Assessment/Plan Assessment: 1. Nonhealing diabetic ulcer right lateral middle back. 2. Nonhealing diabetic ulcer left lateral middle back. 3. Diabetes mellitus. Plan: Theraskin shows good adherence with granulation tissue. Continue TAYLOR NPWT to the graft. Continue Doxycycline for MRSE in both ulcers. This week the ulcers look good. The operative Thera-Skin is still in place. The surgical clips were removed today without difficulty. He is currently not having any of the pain that he was having before the surgical debridement. gauze. Followup one week for another application of Thera-Skin.
== END 2019-01-14 23:59 ==
LOC: WC 08:00
PROVIDERS: Family Provider Family Medicine; PCP Family Medicine; Visit Provider Nurse Practitioner Family
DX: E11.622 Type 2 diabetes mellitus with other skin ulcer (principal); L98.422 Non-pressure chronic ulcer of back with fat layer exposed; L72.3 Sebaceous cyst
CPT/HCPCS: 11042; 11045; 15271; 15272; 97607; 99212; 99213; Q4121; G0463

== ENCOUNTER 2019-02-12 14:15 | Outpatient (RCR) | payer OTHER, SELFPAY ==
[2019-01-15 00:55] VITALS: BP 117/70; PULSE 69; RESP 16; TEMP 36.8; BMI 28.0
[2019-01-15 13:27] VITALS: BP 147/75; PULSE 89; RESP 18; TEMP 37.1; O2SAT 97; BMI 28.0
--- NOTE | 2019-01-15 14:31 | PN.PCM_ITS ---
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 Comment: Nonhealing ulcers right lateral middle back and left lateral middle back (2) Type 2 diabetes mellitus Status: Chronic Current Visit: Yes Qualifiers: Code(s): E11.9 - Type 2 diabetes mellitus without complications Type of Wound Date of Service: 01/15/19 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: Nonhealing diabetic ulcers left lateral middle back and right lateral middle back. History of Wound: Patient presents today for continued evaluation and treatment of his nonhealing diabetic ulcers right lateral middle back and left lateral middle back. Patient states he had I&D procedures by his PCP of sebaceous cysts on his back in January, and March,. He has been coming to the [facility] since March. Various wound care modalities have been tried such as a SNAP VAC, Puroply, and Christie dressing changes. Healing has been slow. Patient is diabetic and his recent HgbA1c was 5.8 from 10/23/18. He had a wound culture on 04/26/18 which showed Staphylococcus epidermidis and he was treated with Doxycycline. Patient takes nutritional supplementation with protein to h elp the healing process. On 06/12/18 Dr. Lemus took him to the OR where he underwent surgical preparation right lateral middle back with excision 1.2 cm nonhealing diabetic ulcer and rhomboid transposition skin flap reconstruction (18 cm2) and surgical preparation left lateral middle back with excision 3 cm nonhealing diabetic ulcer and rhomboid transposition skin flap reconstruction (50 cm2). The operative culture of the left grew left lateral middle back ulcer grew Staphylococcus lugdunsis and Staphylococcus epidermidis. He was placed on Augmentin. These flaps opened up and started to drain. A wound culture was done on 07/09/18 where the left lateral middle back ulcer grew Staphylococcus haemolyticus. He was placed on Levaquin. Wound Culture from 10/22/18 grew Staphylococcus aureus and he was started on Bactrim DS. Patient denies any fevers or loss of appetite today. He has not shown as much improvement as we had hoped with the two application of Theraskin thus far, obtained a wound culture to make sure there isn't bacteria preventing wound healing. If the cultures are positive then we may need change his current antibiotic of Bactrim. Referred him back to his PCP for blood work up to make sure there is nothing medical going on to prevent wound healing. He had Therakin placed. He went to OR on 12/25/18 for surgical preparation left lateral middle back with excisional d ebridement nonhealing diabetic ulcer and reconstruction with placement of Thera- skin allograft (56 cm2) and AmnioFill Placental Connective Tissue Powder (500 mg) and placement of TAYLOR NPWT and surgical preparation right lateral middle back with excisional debridement nonhealing diabetic ulcer and reconstruction with placement of Thera-skin allograft (15 cm2) and AmnioFill Placental Connective Tissue Powder (250 mg) and placement of TAYLOR NPWT. The operative theraskin is still in place on the left and Theraskin placed on the right ulcer. 100 % of product used today. Continue TAYLOR dressing. There has been improvement of the depth of the ulcer. He is currently not having any of the pain that he was having before the surgical debridement. Denies fever or chills. States appetite is good. Progress of Wound: Improving - Physical Exam Vital Signs Temp Pulse Resp BP Pulse Ox 98.8 F 89 18 147/75 H 97 01/15/19 13:27 01/15/19 13:27 01/15/19 13:27 01/15/19 13:27 01/15/19 13:27 General: Alert, Oriented x3, Cooperative HEENT: Atraumatic Oral: Moist Mucosa Lungs: Normal air movement Cardiovascular: Regular rate Extremities: No edema, Capillary Refill Less than 3 Seconds Skin: Ulcer/ Wound - Right mid back ulcer and left mid back ulcer Wound Measurements and Assessment WC - Nurse 1 - General Ulcer Measurement Start: 01/15/19 13:27 Freq: Status: Active Protocol: Activity Type Activity Date Activity User E-Sign Co-Sign Detail Recorded Client Recorded Date Recorded By Document 01/15/19 13:27 PA [id number] 01/15/19 13:33 PA 01/15/19 13:27 Wound Center Nurse 1 [Ulcer Assessment] 6. L lumbar back -Current Size (cm) - Length 7.5 -Current Size (cm) - Width 6.2 -Current Size (cm) - Depth 0.1 -Total Square Cm 46.50 -Epithelialization Medium 34-66% -Exudate Amt Small -Exudate Type Serosanguineous -Wound Margin Flat & Intact -Granulation Amt Medium (34-66%) -Granulation Quality Pale,[place] -Necrosis Amt Medium (34-66%) -Necrotic Tissue Type Adherent Slough -Texture (Mayra-wound Skin Appearance) Assessed, Scarring -Moisture (Mayra-wound Skin Appearance Assessed ) -Color (Mayra-wound Skin Appearance) Assessed -Temperature (Mayra-wound Skin No Abnormality Appearance) (Pt Warm) -Tenderness on Palpation (Mayra-wound No Skin Appearance) -Ulcer Cleansing Rinsed/ Irrigated with Saline -Foul Odor after Cleansing No -Anesthetic Used 4% Lidocaine Solution 5. R scapula -Current Size (cm) - Length 5.5 -Current Size (cm) - Width 2.8 -Current Size (cm) - Depth 0.1 -Total Square Cm 15.40 -Epithelialization Medium 34-66% -Exudate Amt Small -Exudate Type Serosanguineous -Wound Margin Flat & Intact -Granulation Amt Medium (34-66%) -Granulation Quality Pale,[place] -Necrosis Amt Medium (34-66%) -Necrotic Tissue Type Adherent Slough -Texture (Mayra-wound Skin Appearance) Assessed, Scarring -Moisture (Mayra-wound Skin Appearance Assessed ) -Color (Mayra-wound Skin Appearance) Assessed -Temperature (Mayra-wound Skin No Abnormality Appearance) (Pt Warm) -Tenderness on Palpation (Mayra-wound No Skin Appearance) -Ulcer Cleansing Rinsed/ Irrigated with Saline -Foul Odor after Cleansing No -Anesthetic Used 4% Lidocaine Solution [Edema Assessment] -Lower Limb Edema Present NA WC - Nurse 2 - General Ulcer CM Notes Start: 01/15/19 13:27 Freq: Status: Active Protocol: Activity Type Activity Date Activity User E-Sign Co-Sign Detail Recorded Client Recorded Date Recorded By Document 01/15/19 13:54 [facility] [id number] 01/15/19 14:05 [facility] 01/15/19 13:54 Wound Center Nurse 2 [Procedure/Treatment] 6. L lumbar back -Time 13:54 -Correct Patient Yes -Correct Side, Site, Position Yes -Correct Procedure Yes -Procedure Performed Yes -Type of Procedure Debridement -Clinical Debridement Subcutaneous -Post Debridement Size (cm) - Length 5.5 -Post Debridement Size (cm) - Width 8.5 -Post Debridement Size (cm) - Depth 0.2 -Total Square Cm 46.75 -Wound/Ulcer Outcome Not Healed -Ulcer Cleansing Rinsed/ Irrigated with Saline -Foul Odor after Cleansing No -Bioengineered Tissue No -Offloading No -Treatment Response Procedure Tolerated Well 5. R scapula -Time 13:54 -Correct Patient Yes -Correct Side, Site, Position Yes -Correct Procedure Yes -Procedure Performed Yes -Type of Procedure Debridement -Clinical Debridement Subcutaneous -Post Debridement Size (cm) - Length 5.5 -Post Debridement Size (cm) - Width 3 -Post Debridement Size (cm) - Depth 0.2 -Total Square Cm 16.5 -Wound/Ulcer Outcome Not Healed -Ulcer Cleansing Rinsed/ Irrigated with Saline -Foul Odor after Cleansing No -Bioengineered Tissue Yes -Type of bioengineered Tissue THERASKIN -Expiration Date 11/05/20 -Product Lot Number [id number] -Percent Used 100 -Bleeding Controlled with Pressure -Other saline [id number] -Offloading No -Treatment Response Procedure Tolerated Well [See Physician Procedure note for Specifics] Pain Scale: 0-10 Numeric [Pain] -Is Patient Pain Free? Yes Musculoskeletal: No Tenderness to Palpation of Joints or Extremities Lymphatic: No Cervical, Supraclavicular, or Inguinal Adenopathy Neurological: Neuro grossly intact Psych/Mental Status: Normal Affect, Appropriate Debridement Note Post-Debridement Measurements/Treatment WC - Nurse 2 - General Ulcer CM Notes Start: 01/15/19 13:27 Freq: Status: Active Protocol: Activity Type Activity Date Activity User E-Sign Co-Sign Detail Recorded Client Recorded Date Recorded By Document 01/15/19 13:54 [id number] 01/15/19 14:05 [facility] 01/15/19 13:54 Wound Center Nurse 2 6. L lumbar back -Time 13:54 -Correct Patient Yes -Correct Side, Site, Position Yes -Correct Procedure Yes -Procedure Performed Yes -Type of Procedure Debridement -Clinical Debridement Subcutaneous -Post Debridement Size (cm) - Length 5.5 -Post Debridement Size (cm) - Width 8.5 -Post Debridement Size (cm) - Depth 0.2 -Total Square Cm 46.75 -Wound/Ulcer Outcome Not Healed -Ulcer Cleansing Rinsed/ Irrigated with Saline -Foul Odor after Cleansing No -Bioengineered Tissue No -Offloading No -Treatment Response Procedure Tolerated Well 5. R scapula -Time 13:54 -Correct Patient Yes -Correct Side, Site, Position Yes -Correct Procedure Yes -Procedure Performed Yes -Type of Procedure Debridement -Clinical Debridement Subcutaneous -Post Debridement Size (cm) - Length 5.5 -Post Debridement Size (cm) - Width 3 -Post Debridement Size (cm) - Depth 0.2 -Total Square Cm 16.5 -Wound/Ulcer Outcome Not Healed -Ulcer Cleansing Rinsed/ Irrigated with Saline -Foul Odor after Cleansing No -Bioengineered Tissue Yes -Type of bioengineered Tissue THERASKIN -Expiration Date 11/05/20 -Product Lot Number [id number] -Percent Used 100 -Bleeding Controlled with Pressure -Other saline [id number] -Offloading No -Treatment Response Procedure Tolerated Well Pain Scale: 0-10 Numeric Is Patient Pain Free? Yes Wound debrided: Right middle back ulcer Laterality: Right Type of Debridement: Excisional debridement Anesthesia Used: 4% Lidocaine Solution, 5% Lidocaine Gel Depth: Down to and including healthy tissue, in the subcutaneous layer Percentage of wound debrided: 100 Instrument Used: 7mm curette Tissue Removed: Subcutaneous tissue and slough Severity: Fat Layer Exposed Amount of bleeding with debridement: Moderate Bleeding Controlled with: Pressure, Compression and gauze Patient tolerated procedure well - Additional Wound Wound debrided: Left middle back ulcer Laterality: Left Type of Debridement: Selective debridement Anesthesia Used: 4% Lidocaine Solution, 5% Lidocaine Gel Depth: Down to and including healthy tissue, in the subcutaneous layer Percentage of wound debrided: 80 Instrument Used: 5mm curette Tissue Removed: Subcutaneous tissue and slough Amount of bleeding with debridement: Mild Bleeding Controlled with: Pressure, Compression and gauze Assessment/Plan Active Problems (Last Reviewed 12/26/18 @ 14:24 by Yeimy Li) Non-pressure chronic ulcer of skin of other sites with fat layer exposed (Chronic) Nonhealing ulcers right lateral middle back and left lateral middle back Type 2 diabetes mellitus (Chronic) Assessment: 1. Nonhealing diabetic ulcer right lateral middle back. 2. Nonhealing diabetic ulcer left lateral middle back. 3. Diabetes mellitus. Plan: Theraskin #3 was applied 12/18/09. Wound cultures from 12/03/2018 grew Staphylococcus aureus, Staphylococcus epidermidis, Staphylococcus haemolyticus. He was instructed to stop the Bactrim and was ordered Doxycycline. We referred him back to his PCP for blood work up to make sure there is nothing medical going on to prevent wound healing, those lab results are not back yet. He went to OR on 12/25/18 for surgical preparation left lateral middle back with excisional debridement nonhealing diabetic ulcer and reconstruction with placement of Thera-skin allograft (56 cm2) and AmnioFill Placental Connective Tissue Powder (500 mg) and placement of TAYLOR NPWT and surgical preparation right lateral middle back with excisional debridement nonhealing diabetic ulcer and reconstruction with placement of Thera-skin allograft (15 cm2) and AmnioFill Placental Connective Tissue Powder (250 mg) and placement of TAYLOR NPWT. Theraskin placed on the right middle back ulcer after debridement. 100% of the product was used. The operative theraskin is still in place on the left middle back ulcer. Continue TAYLOR NWPT. There has been improvement of the depth of the ulcers. He is currently not having any of the pain that he was having before the surgical debridement. Follow up this week for the TAYLOR vac placement then next week. Code Visit 150xxx-152xx: 31812 Skin sub graft trnk/arm/leg
[2019-01-22 13:30] VITALS: BP 132/76; PULSE 79; RESP 16; BMI 28.0
--- NOTE | 2019-01-22 15:32 | PCM.WC.PN ---
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 Comment: Nonhealing ulcers right lateral middle back and left lateral middle back (2) Type 2 diabetes mellitus Status: Chronic Qualifiers: Code(s): E11.9 - Type 2 diabetes mellitus without complications Type of Wound Date of Service: 01/22/19 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: Nonhealing diabetic ulcers left lateral middle back and right lateral middle back. History of Wound: Surgery 12/25/18 - 1. Surgical preparation left lateral middle back with excisional debridement nonhealing diabetic ulcer and reconstruction with placement of Thera-skin allograft (56 cm2) and AmnioFill Placental Connective Tissue Powder (500 mg) and placement of TAYLOR NPWT. 2. Surgical preparation right lateral middle back with excisional debridement nonhealing diabetic ulcer and reconstruction with placement of Thera-skin allograft (15 cm2) and AmnioFill Placental Connective Tissue Powder (250 mg) and placement of TAYLOR NPWT. Wound care -He has had 4 Theraskin placements before his surgery and #5 placed on right ulcer last week. Operative culture - MRSE in the left lateral middle back ulcer and the right lateral middle back ulcer. He is currently on Doxycycline. Patient is diabetic and his recent HgbA1c was 5.8 from 10/23/18. The operative theraskin is still in place. He is currently not having any of the pain that he was having before the surgical debridement. Today he denies fever. His appetite is ok. Progress of Wound: Improving - Physical Exam Vital Signs Temp Pulse Resp BP Pulse Ox 98.8 F 79 16 132/76 H 97 01/15/19 13:27 01/22/19 13:30 01/22/19 13:30 01/22/19 13:30 01/15/19 13:27 General: Alert, Oriented x3, Cooperative HEENT: Atraumatic Oral: Moist Mucosa Lungs: Normal air movement Cardiovascular: Regular rate Extremities: No edema, Capillary Refill Less than 3 Seconds Skin: Ulcer/ Wound - Right and left middle back ulcers Wound Measurements and Assessment WC - Nurse 1 - General Ulcer Measurement Start: 01/15/19 13:27 Freq: Status: Active Protocol: Activity Type Activity Date Activity User E-Sign Co-Sign Detail Recorded Client Recorded Date Recorded By Document 01/22/19 13:30 [place] [id number] 01/22/19 13:36 [place] 01/22/19 13:30 Wound Center Nurse 1 [Ulcer Assessment] 6. L lumbar back -Current Size (cm) - Length 6.5 -Current Size (cm) - Width 6.4 -Current Size (cm) - Depth 0.1 -Total Square Cm 41.60 -Exudate Amt Small -Exudate Type Sanguineous -Wound Margin Flat & Intact -Granulation Amt Large (67-100%) -Granulation Quality Red -Slough/Fibrin No -Texture (Mayra-wound Skin Appearance) Assessed -Moisture (Mayra-wound Skin Appearance Assessed, ) Maceration -Color (Mayra-wound Skin Appearance) Assessed -Temperature (Mayra-wound Skin No Abnormality Appearance) (Pt Warm) -Tenderness on Palpation (Mayra-wound Yes Skin Appearance) -Ulcer Cleansing Rinsed/ Irrigated with Saline -Anesthetic Used 4% Lidocaine Solution 5. R scapula -Current Size (cm) - Length 0.1 -Current Size (cm) - Width 0.1 -Current Size (cm) - Depth 0.1 -Total Square Cm 0.01 -Wound Margin Flat & Intact -Texture (Mayra-wound Skin Appearance) Assessed -Color (Mayra-wound Skin Appearance) Assessed -Temperature (Mayra-wound Skin No Abnormality Appearance) (Pt Warm) -Tenderness on Palpation (Mayra-wound No Skin Appearance) -Ulcer Cleansing Rinsed/ Irrigated with Saline WC - Nurse 2 - General Ulcer CM Notes Start: 01/15/19 13:27 Freq: Status: Active Protocol: Activity Type Activity Date Activity User E-Sign Co-Sign Detail Recorded Client Recorded Date Recorded By Document 01/22/19 14:28 [id number] 01/22/19 14:30 01/22/19 14:28 Wound Center Nurse 2 [Procedure/Treatment] 6. L lumbar back -Time 14:28 -Correct Patient Yes -Correct Side, Site, Position Yes -Correct Procedure Yes -Procedure Performed Yes -Type of Procedure Debridement -Clinical Debridement Subcutaneous -Post Debridement Size (cm) - Length 5.5 -Post Debridement Size (cm) - Width 7 -Post Debridement Size (cm) - Depth 0.2 -Total Square Cm 38.5 -Wound/Ulcer Outcome Not Healed -Ulcer Cleansing Rinsed/ Irrigated with Saline -Foul Odor after Cleansing No -Bioengineered Tissue No -Bleeding Controlled with Pressure -Offloading No -Treatment Response Procedure Tolerated Well 5. R scapula -Correct Patient No -Correct Side, Site, Position No -Correct Procedure No -Procedure Performed No [See Physician Procedure note for Specifics] Pain Scale: 0-10 Numeric [Pain] -Is Patient Pain Free? Yes Musculoskeletal: No Tenderness to Palpation of Joints or Extremities Neurological: Neuro grossly intact Psych/Mental Status: Normal Affect, Appropriate Debridement Note Post-Debridement Measurements/Treatment WC - Nurse 2 - General Ulcer CM Notes Start: 01/15/19 13:27 Freq: Status: Active Protocol: Activity Type Activity Date Activity User E-Sign Co-Sign Detail Recorded Client Recorded Date Recorded By Document 01/15/19 13:54 [id number] 01/15/19 14:05 Document 01/22/19 14:28 [id number] 01/22/19 14:30 01/15/19 01/22/19 13:54 14:28 Wound Center Nurse 2 6. L lumbar back -Time 13:54 14:28 -Correct Patient Yes Yes -Correct Side, Site, Position Yes Yes -Correct Procedure Yes Yes -Procedure Performed Yes Yes -Type of Procedure Debridement Debridement -Clinical Debridement Subcutaneous Subcutaneous -Post Debridement Size (cm) - Length 5.5 5.5 -Post Debridement Size (cm) - Width 8.5 7 -Post Debridement Size (cm) - Depth 0.2 0.2 -Total Square Cm 46.75 38.5 -Wound/Ulcer Outcome Not Healed Not Healed -Ulcer Cleansing Rinsed/ Rinsed/ Irrigated with Irrigated with Saline Saline -Foul Odor after Cleansing No No -Bioengineered Tissue No No -Bleeding Controlled with Pressure -Offloading No No -Treatment Response Procedure Procedure Tolerated Well Tolerated Well 5. R scapula -Time 13:54 -Correct Patient Yes No -Correct Side, Site, Position Yes No -Correct Procedure Yes No -Procedure Performed Yes No -Type of Procedure Debridement -Clinical Debridement Subcutaneous -Post Debridement Size (cm) - Length 5.5 -Post Debridement Size (cm) - Width 3 -Post Debridement Size (cm) - Depth 0.2 -Total Square Cm 16.5 -Wound/Ulcer Outcome Not Healed -Ulcer Cleansing Rinsed/ Irrigated with Saline -Foul Odor after Cleansing No -Bioengineered Tissue Yes -Type of bioengineered Tissue THERASKIN -Expiration Date 11/05/20 -Product Lot Number [id number] -Percent Used 100 -Bleeding Controlled with Pressure -Other saline [id number] -Offloading No -Treatment Response Procedure Tolerated Well Pain Scale: 0-10 Numeric Is Patient Pain Free? Yes Yes Wound debrided: Left middle back ulcer Laterality: Right Type of Debridement: Excisional debridement Anesthesia Used: 4% Lidocaine Solution, 5% Lidocaine Gel, - - 1 % lidocaine 5 cc injected Depth: Down to and including healthy tissue Percentage of wound debrided: 100 Instrument Used: 7mm curette, - - scissors and pickups Tissue Removed: hyper granulation tissue Severity: Limited To Skin Breakdown Amount of bleeding with debridement: Moderate Bleeding Controlled with: Pressure, Compression and gauze Patient tolerated procedure well Having difficulty removing the theraskin due to the amount of hypergranulation of tissue. No debridement of the right middle back ulcer. Assessment/Plan Assessment: 1. Nonhealing diabetic ulcer right lateral middle back. 2. Nonhealing diabetic ulcer left lateral middle back. 3. Diabetes mellitus. Plan: Theraskin on the left is has hypergranulation tissue and is difficult removing the theraskin. Stop TAYLOR NPWT to the graft, it is causing hypergranulation, will stop the TAYLOR. Continue Doxycycline for MRSE in both ulcers. The right ulcer looks back. He is currently not having any of the pain that he was having before the surgical debridement. gauze. He has had 4 application of Theraskin to the left middle back and 5 applications to the right middle back. Patient is interested in having a second opinion on options. He still is hesitant to having an autograft. Followup one week for another application of Thera-Skin. Code Visit 111xxx-113xx: 55602 Pooja subq tissue 20 sq cm/< Add On Codes: 56430 Pooja subq tissue add-on
[2019-01-29 13:53] VITALS: BP 138/78; PULSE 83; RESP 16; TEMP 37; BMI 28.0
--- NOTE | 2019-01-29 14:00 | WC ---
brian left intact to r scapula
--- NOTE | 2019-01-29 17:04 | PN.PCM_ITS ---
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 Comment: Nonhealing ulcers right lateral middle back and left lateral middle back (2) Type 2 diabetes mellitus Status: Chronic Current Visit: Yes Qualifiers: Code(s): E11.9 - Type 2 diabetes mellitus without complications Type of Wound Date of Service: 01/29/19 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: Nonhealing diabetic ulcers left lateral middle back and right lateral middle back. History of Wound: Surgery 12/25/18 - 1. Surgical preparation left lateral middle back with excisional debridement nonhealing diabetic ulcer and reconstruction with placement of Thera-skin allograft (56 cm2) and AmnioFill Placental Connective Tissue Powder (500 mg) and placement of TAYLOR NPWT. 2. Surgical pr eparation right lateral middle back with excisional debridement nonhealing diabetic ulcer and reconstruction with placement of Thera-skin allograft (15 cm2) and AmnioFill Placental Connective Tissue Powder (250 mg) and placement of TAYLOR NPWT. Wound care -He has had 4 Theraskin placements before his surgery and #6 placed on right ulcer this week. 50% of Theraskin was used on the right and the remainder was placed on the left upper ulcer. The left ulcer had hypergranulation of the theraskin with the TAYLOR and we have had a difficult time debriding the theraskin. The remainder theraskin from the right was placed over an area that has been debrided. Operative culture - MRSE in the left lateral middle back ulcer and the right lateral middle back ulcer. He is currently on Doxycycline. Patient is diabetic and his recent HgbA1c was 5.8 from 10/23/18. The operative theraskin is still in place. He is currently not having any of the pain that he was having before the surgical debridement. Today he denies fever. His appetite is ok. Progress of Wound: Improving - Physical Exam Vital Signs Temp Pulse Resp BP Pulse Ox 98.6 F 83 16 138/78 H 97 01/29/19 13:53 01/29/19 13:53 01/29/19 13:53 01/29/19 13:53 01/15/19 13:27 General: Alert, Oriented x3, Cooperative HEENT: Atraumatic, PERRLA Oral: Moist Mucosa Lungs: Normal air movement Cardiovascular: Regular rate Extremities: No edema, Capillary Refill Less than 3 Seconds Skin: Ulcer/ Wound - Right and left middle back ulcers Wound Measurements and Assessment WC - Nurse 1 - General Ulcer Measurement Start: 01/15/19 13:27 Freq: Status: Active Protocol: Activity Type Activity Date Activity User E-Sign Co-Sign Detail Recorded Client Recorded Date Recorded By Document 01/29/19 13:53 [facility] [id number] 01/29/19 14:00 [facility] 01/29/19 13:53 Wound Center Nurse 1 [Ulcer Assessment] 6. L lumbar back -Combined with other wound No -Current Size (cm) - Length 7 -Current Size (cm) - Width 5.8 -Current Size (cm) - Depth 0.2 -Total Square Cm 40.6 -Photo Taken No -Epithelialization None Present -Tunneling No -Undermining/Tunneling No -Circular Undermining No -Exudate Amt Small -Exudate Type Serous -Wound Margin Distinct, Outline Attached -Granulation Amt Large (67-100%) -Granulation Quality Red -Slough/Fibrin Yes -Necrosis Amt Small (1-33%) -Necrotic Tissue Type Adherent Slough -Texture (Mayra-wound Skin Appearance) Assessed -Moisture (Mayra-wound Skin Appearance Assessed ) -Color (Mayra-wound Skin Appearance) Assessed -Temperature (Mayra-wound Skin No Abnormality Appearance) (Pt Warm) -Tenderness on Palpation (Mayra-wound No Skin Appearance) -Ulcer Cleansing Rinsed/ Irrigated with Saline -Foul Odor after Cleansing No -Anesthetic Used 5% Lidocaine Gel 5. R scapula -Combined with other wound No -Current Size (cm) - Length 0.1 -Current Size (cm) - Width 0.1 -Current Size (cm) - Depth 0.1 -Total Square Cm 0.01 -Photo Taken No WC - Nurse 2 - General Ulcer CM Notes Start: 01/15/19 13:27 Freq: Status: Active Protocol: Activity Type Activity Date Activity User E-Sign Co-Sign Detail Recorded Client Recorded Date Recorded By Document 01/29/19 14:20 [id number] 01/29/19 14:34 01/29/19 14:20 Wound Center Nurse 2 [Procedure/Treatment] 6. L lumbar back -Time 14:33 -Correct Patient Yes -Correct Side, Site, Position Yes -Correct Procedure Yes -Procedure Performed Yes -Type of Procedure Debridement -Clinical Debridement Subcutaneous -Post Debridement Size (cm) - Length 4.5 -Post Debridement Size (cm) - Width 7.5 -Post Debridement Size (cm) - Depth 0.3 -Total Square Cm 33.75 -Wound/Ulcer Outcome Not Healed -Ulcer Cleansing Rinsed/ Irrigated with Saline -Foul Odor after Cleansing No -Bioengineered Tissue Yes -Type of bioengineered Tissue THERASKIN -Expiration Date 08/06/23 -Product Lot Number [id number] -Percent Used 100 -Saline Lot Number [id number] -Bleeding Controlled with Pressure -Offloading No -Treatment Response Procedure Tolerated Well 5. R scapula -Time 14:21 -Correct Patient Yes -Correct Side, Site, Position Yes -Correct Procedure Yes -Procedure Performed Yes -Type of Procedure Debridement -Clinical Debridement Subcutaneous -Post Debridement Size (cm) - Length 5.0 -Post Debridement Size (cm) - Width 2.3 -Post Debridement Size (cm) - Depth 0.2 -Total Square Cm 11.50 -Wound/Ulcer Outcome Not Healed -Ulcer Cleansing Rinsed/ Irrigated with Saline -Foul Odor after Cleansing No -Bioengineered Tissue Yes -Type of bioengineered Tissue [place]ER[place]IN -Expiration Date 08/06/23 -Product Lot Number [id number] -Percent Used 100 -Saline Lot Number [id number] -Bleeding Controlled with Pressure -Offloading No -Treatment Response Procedure Tolerated Well [See Physician Procedure note for Specifics] Pain Scale: 0-10 Numeric [Pain] -Is Patient Pain Free? Yes Musculoskeletal: No Tenderness to Palpation of Joints or Extremities Neurological: Neuro grossly intact Psych/Mental Status: Normal Affect, Appropriate Debridement Note Post-Debridement Measurements/Treatment WC - Nurse 2 - General Ulcer CM Notes Start: 01/15/19 13:27 Freq: Status: Active Protocol: Activity Type Activity Date Activity User E-Sign Co-Sign Detail Recorded Client Recorded Date Recorded By Document 01/15/19 13:54 [id number] 01/15/19 14:05 Document 01/22/19 14:28 [id number] 01/22/19 14:30 Document 01/29/19 14:20 [id number] 01/29/19 14:34 01/15/19 01/22/19 01/29/19 13:54 14:28 14:20 Wound Center Nurse 2 6. L lumbar back -Time 13:54 14:28 14:33 -Correct Patient Yes Yes Yes -Correct Side, Site, Position Yes Yes Yes -Correct Procedure Yes Yes Yes -Procedure Performed Yes Yes Yes -Type of Procedure Debridement Debridement Debridement -Clinical Debridement Subcutaneous Subcutaneous Subcutaneous -Post Debridement Size (cm) - Length 5.5 5.5 4.5 -Post Debridement Size (cm) - Width 8.5 7 7.5 -Post Debridement Size (cm) - Depth 0.2 0.2 0.3 -Total Square Cm 46.75 38.5 33.75 -Wound/Ulcer Outcome Not Healed Not Healed Not Healed -Ulcer Cleansing Rinsed/ Rinsed/ Rinsed/ Irrigated with Irrigated with Irrigated with Saline Saline Saline -Foul Odor after Cleansing No No No -Bioengineered Tissue No No Yes -Type of bioengineered Tissue THER[place]IN -Expiration Date 08/06/23 -Product Lot Number [id number] -Percent Used 100 -Saline Lot Number [id number] -Bleeding Controlled with Pressure Pressure -Offloading No No No -Treatment Response Procedure Procedure Procedure Tolerated Well Tolerated Well Tolerated Well 5. R scapula -Time 13:54 14:21 -Correct Patient Yes No Yes -Correct Side, Site, Position Yes No Yes -Correct Procedure Yes No Yes -Procedure Performed Yes No Yes -Type of Procedure Debridement Debridement -Clinical Debridement Subcutaneous Subcutaneous -Post Debridement Size (cm) - Length 5.5 5.0 -Post Debridement Size (cm) - Width 3 2.3 -Post Debridement Size (cm) - Depth 0.2 0.2 -Total Square Cm 16.5 11.50 -Wound/Ulcer Outcome Not Healed Not Healed -Ulcer Cleansing Rinsed/ Rinsed/ Irrigated with Irrigated with Saline Saline -Foul Odor after Cleansing No No -Bioengineered Tissue Yes Yes -Type of bioengineered Tissue THERASKIN THERASKIN -Expiration Date 11/05/20 08/06/23 -Product Lot Number [id number] -Percent Used 100 100 -Saline Lot Number [id number] -Bleeding Controlled with Pressure Pressure -Other saline [id number] -Offloading No No -Treatment Response Procedure Procedure Tolerated Well Tolerated Well Pain Scale: 0-10 Numeric Is Patient Pain Free? Yes Yes Yes Wound debrided: Right middle back Laterality: Right Type of Debridement: Excisional debridement Anesthesia Used: 4% Lidocaine Solution, 5% Lidocaine Gel Depth: Down to and including healthy tissue, in the subcutaneous layer, to muscle Percentage of wound debrided: 100 Instrument Used: 5mm curette Tissue Removed: Subcutaneous tissue and slough Severity: Fat Layer Exposed Amount of bleeding with debridement: Mild Bleeding Controlled with: Pressure, Compression and gauze Patient tolerated procedure well - Additional Wound Wound debrided: left middle back ulcer Laterality: Left Type of Debridement: Excisional debridement Anesthesia Used: 4% Lidocaine Solution, 5% Lidocaine Gel Depth: Down to and including healthy tissue, in the subcutaneous layer Percentage of wound debrided: 100 Instrument Used: 7mm curette Tissue Removed: Subcutaneous tissue and slough Severity: Fat Layer Exposed Amount of bleeding with debridement: Moderate Bleeding Controlled with: Pressure, Compression and gauze Patient tolerated procedure: Patient tolerated procedure well Assessment/Plan Active Problems (Last Reviewed 12/26/18 @ 14:24 by Yeimy Li) Non-pressure chronic ulcer of skin of other sites with fat layer exposed (Chronic) Nonhealing ulcers right lateral middle back and left lateral middle back Type 2 diabetes mellitus (Chronic) Assessment: 1. Nonhealing diabetic ulcer right lateral middle back. 2. Nonhealing diabetic ulcer left lateral middle back. 3. Diabetes mellitus. Plan: Theraskin on the left is has hypergranulation tissue and is difficult removing the theraskin. Aggressive debridement today to get more of the theraskin removed. Theraskin #6 placed on left ulcer. 50% ulcer placed on the right. The remaining theraskin placed on the left ulcer where the theraksin has been removed. Continue Doxycycline for MRSE in both ulcers. The right ulcer looks back. He is currently not having any of the pain that he was having before the surgical debridement. gauze. He has had 4 application of Theraskin to the left middle back and 5 applications to the right middle back. Patient is interested in having a second opinion on options. He still is hesitant to having an autograft. Referred to plastic surgery at [facility] at the end of January. Followup one week Code Visit [id number]: [id number] Skin sub graft trnk/arm/leg
[2019-02-05 13:51] VITALS: BP 130/74; PULSE 78; RESP 16; TEMP 36.4; BMI 28.0
--- NOTE | 2019-02-05 14:44 | PCM.WC.PN ---
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 Comment: Nonhealing ulcers right lateral middle back and left lateral middle back (2) Type 2 diabetes mellitus Status: Chronic Current Visit: Yes Qualifiers: Code(s): E11.9 - Type 2 diabetes mellitus without complications Type of Wound Date of Service: 02/05/19 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: Nonhealing diabetic ulcers left lateral middle back and right lateral middle back. History of Wound: Surgery 12/25/18 - 1. Surgical preparation left lateral middle back with excisional debridement nonhealing diabetic ulcer and reconstruction with placement of Thera-skin allograft (56 cm2) and AmnioFill Placental Connective Tissue Powder (500 mg) and placement of TAYLOR NPWT. 2. Surgical preparation right lateral middle back with excisional debridement nonhealing diabetic ulcer and reconstruction with placement of Thera-skin allograft (15 cm2) and AmnioFill Placental Connective Tissue Powder (250 mg) and placement of TAYLOR NPWT. Wound care -He has had 4 Theraskin placements before his surgery and #7 placed on right ulcer this week. 50% of Theraskin was used on the right and the remainder was placed on the left upper ulcer. The left ulcer had hypergranulation of the theraskin with the TAYLOR and we have had a difficult time debriding the theraskin. The remainder theraskin from the right was placed over an area that has been debrided. Operative culture - MRSE in the left lateral middle back ulcer and the right lateral middle back ulcer. He is currently on Doxycycline. Patient is diabetic and his recent HgbA1c was 5.8 from 10/23/18. The operative theraskin is still in place. He is currently not having any of the pain that he was having before the surgical debridement. Today he denies fever. His appetite is ok. Progress of Wound: Improving - Physical Exam Vital Signs Temp Pulse Resp BP Pulse Ox 97.5 F L 78 16 130/74 H 97 02/05/19 13:51 02/05/19 13:51 02/05/19 13:51 02/05/19 13:51 01/15/19 13:27 General: Alert, Oriented x3, Cooperative HEENT: Atraumatic Oral: Moist Mucosa Lungs: Normal air movement Cardiovascular: Regular rate Extremities: No edema, Capillary Refill Less than 3 Seconds Skin: Ulcer/ Wound - Lef Wound Measurements and Assessment WC - Nurse 1 - General Ulcer Measurement Start: 01/15/19 13:27 Freq: Status: Active Protocol: Activity Type Activity Date Activity User E-Sign Co-Sign Detail Recorded Client Recorded Date Recorded By Document 02/05/19 13:51 [facility] [id number] 02/05/19 14:03 [facility] 02/05/19 13:51 Wound Center Nurse 1 [Ulcer Assessment] 6. L lumbar back -Combined with other wound No -Current Size (cm) - Length 6 -Current Size (cm) - Width 6 -Current Size (cm) - Depth 0.1 -Total Square Cm 36 -Photo Taken No -Epithelialization None Present -Tunneling No -Undermining/Tunneling No -Circular Undermining No -Exudate Amt Small -Exudate Type Serosanguineous -Wound Margin Distinct, Outline Attached -Granulation Amt Medium (34-66%) -Granulation Quality Red -Slough/Fibrin Yes -Necrosis Amt Small (1-33%) -Necrotic Tissue Type Adherent Slough -Texture (Mayra-wound Skin Appearance) Assessed, Scarring -Moisture (Mayra-wound Skin Appearance Assessed ) -Color (Mayra-wound Skin Appearance) Assessed -Temperature (Mayra-wound Skin No Abnormality Appearance) (Pt Warm) -Tenderness on Palpation (Mayra-wound No Skin Appearance) -Ulcer Cleansing soap and water -Foul Odor after Cleansing No -Anesthetic Used 5% Lidocaine Gel 5. R scapula -Combined with other wound No -Current Size (cm) - Length 0.1 -Current Size (cm) - Width 0.1 -Current Size (cm) - Depth 0.1 -Total Square Cm 0.01 -Photo Taken No -Epithelialization None Present -Tunneling No -Undermining/Tunneling No -Circular Undermining No -Exudate Amt Small -Exudate Type Serosanguineous -Wound Margin Distinct, Outline Attached -Granulation Amt Small (1-33%) -Granulation Quality Red -Slough/Fibrin Yes -Necrosis Amt Medium (34-66%) -Necrotic Tissue Type Adherent Slough -Texture (Mayra-wound Skin Appearance) Assessed, Scarring -Moisture (Mayra-wound Skin Appearance Assessed ) -Color (Mayra-wound Skin Appearance) Assessed -Temperature (Mayra-wound Skin No Abnormality Appearance) (Pt Warm) -Tenderness on Palpation (Mayra-wound No Skin Appearance) -Ulcer Cleansing soap and water -Foul Odor after Cleansing No -Anesthetic Used 5% Lidocaine Gel WC - Nurse 2 - General Ulcer CM Notes Start: 01/15/19 13:27 Freq: Status: Active Protocol: Activity Type Activity Date Activity User E-Sign Co-Sign Detail Recorded Client Recorded Date Recorded By Document 02/05/19 14:14 [id number] 02/05/19 14:23 02/05/19 14:14 Wound Center Nurse 2 [Procedure/Treatment] 6. L lumbar back -Correct Patient No -Correct Side, Site, Position No -Correct Procedure No -Procedure Performed No -Wound/Ulcer Outcome Not Healed -Bleeding Controlled with Pressure -Offloading No -Treatment Response Procedure Tolerated Well 5. R scapula -Time 14:18 -Correct Patient Yes -Correct Side, Site, Position Yes -Correct Procedure Yes -Procedure Performed Yes -Type of Procedure Debridement -Clinical Debridement Subcutaneous -Post Debridement Size (cm) - Length 4.5 -Post Debridement Size (cm) - Width 2.2 -Post Debridement Size (cm) - Depth 0.1 -Total Square Cm 9.90 -Wound/Ulcer Outcome Not Healed -Ulcer Cleansing Rinsed/ Irrigated with Saline -Foul Odor after Cleansing No -Bioengineered Tissue Yes -Type of bioengineered Tissue THERASKIN -Expiration Date 12/07/21 -Product Lot Number [id number] -Percent Used 100 -Saline Lot Number [id number] -Bleeding Controlled with Pressure -Offloading No -Treatment Response Procedure Tolerated Well [See Physician Procedure note for Specifics] Pain Scale: 0-10 Numeric [Pain] -Is Patient Pain Free? Yes Musculoskeletal: No Tenderness to Palpation of Joints or Extremities Neurological: Neuro grossly intact Psych/Mental Status: Normal Affect, Appropriate Debridement Note Post-Debridement Measurements/Treatment WC - Nurse 2 - General Ulcer CM Notes Start: 01/15/19 13:27 Freq: Status: Active Protocol: Activity Type Activity Date Activity User E-Sign Co-Sign Detail Recorded Client Recorded Date Recorded By Document 01/15/19 13:54 [email or web address] [id number] 01/15/19 14:05 Document 01/22/19 14:28 [id number] 01/22/19 14:30 Document 01/29/19 14:20 [id number] 01/29/19 14:34 Document 02/05/19 14:14 [id number] 02/05/19 14:23 01/15/19 01/22/19 01/29/19 13:54 14:28 14:20 Wound Center Nurse 2 6. L lumbar back -Time 13:54 14:28 14:33 -Correct Patient Yes Yes Yes -Correct Side, Site, Position Yes Yes Yes -Correct Procedure Yes Yes Yes -Procedure Performed Yes Yes Yes -Type of Procedure Debridement Debridement Debridement -Clinical Debridement Subcutaneous Subcutaneous Subcutaneous -Post Debridement Size (cm) - Length 5.5 5.5 4.5 -Post Debridement Size (cm) - Width 8.5 7 7.5 -Post Debridement Size (cm) - Depth 0.2 0.2 0.3 -Total Square Cm 46.75 38.5 33.75 -Wound/Ulcer Outcome Not Healed Not Healed Not Healed -Ulcer Cleansing Rinsed/ Rinsed/ Rinsed/ Irrigated with Irrigated with Irrigated with Saline Saline Saline -Foul Odor after Cleansing No No No -Bioengineered Tissue No No Yes -Type of bioengineered Tissue THER[place]IN -Expiration Date 08/06/23 -Product Lot Number [id number] -Percent Used 100 -Saline Lot Number [id number] -Bleeding Controlled with Pressure Pressure -Offloading No No No -Treatment Response Procedure Procedure Procedure Tolerated Well Tolerated Well Tolerated Well 5. R scapula -Time 13:54 14:21 -Correct Patient Yes No Yes -Correct Side, Site, Position Yes No Yes -Correct Procedure Yes No Yes -Procedure Performed Yes No Yes -Type of Procedure Debridement Debridement -Clinical Debridement Subcutaneous Subcutaneous -Post Debridement Size (cm) - Length 5.5 5.0 -Post Debridement Size (cm) - Width 3 2.3 -Post Debridement Size (cm) - Depth 0.2 0.2 -Total Square Cm 16.5 11.50 -Wound/Ulcer Outcome Not Healed Not Healed -Ulcer Cleansing Rinsed/ Rinsed/ Irrigated with Irrigated with Saline Saline -Foul Odor after Cleansing No No -Bioengineered Tissue Yes Yes -Type of bioengineered Tissue THERASKIN THERASKIN -Expiration Date 11/05/20 08/06/23 -Product Lot Number [id number] -Percent Used 100 100 -Saline Lot Number [id number] -Bleeding Controlled with Pressure Pressure -Other saline [id number] -Offloading No No -Treatment Response Procedure Procedure Tolerated Well Tolerated Well Pain Scale: 0-10 Numeric Is Patient Pain Free? Yes Yes Yes 02/05/19 14:14 Wound Center Nurse 2 6. L lumbar back -Time -Correct Patient No -Correct Side, Site, Position No -Correct Procedure No -Procedure Performed No -Type of Procedure -Clinical Debridement -Post Debridement Size (cm) - Length -Post Debridement Size (cm) - Width -Post Debridement Size (cm) - Depth -Total Square Cm -Wound/Ulcer Outcome Not Healed -Ulcer Cleansing -Foul Odor after Cleansing -Bioengineered Tissue -Type of bioengineered Tissue -Expiration Date -Product Lot Number -Percent Used -Saline Lot Number -Bleeding Controlled with Pressure -Offloading No -Treatment Response Procedure Tolerated Well 5. R scapula -Time 14:18 -Correct Patient Yes -Correct Side, Site, Position Yes -Correct Procedure Yes -Procedure Performed Yes -Type of Procedure Debridement -Clinical Debridement Subcutaneous -Post Debridement Size (cm) - Length 4.5 -Post Debridement Size (cm) - Width 2.2 -Post Debridement Size (cm) - Depth 0.1 -Total Square Cm 9.90 -Wound/Ulcer Outcome Not Healed -Ulcer Cleansing Rinsed/ Irrigated with Saline -Foul Odor after Cleansing No -Bioengineered Tissue Yes -Type of bioengineered Tissue [place]ER[place]IN -Expiration Date 12/07/21 -Product Lot Number [id number] -Percent Used 100 -Saline Lot Number [id number] -Bleeding Controlled with Pressure -Other -Offloading No -Treatment Response Procedure Tolerated Well Pain Scale: 0-10 Numeric Is Patient Pain Free? 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 Nonhealing diabetic ulcer right lateral middle back. 2. Nonhealing diabetic ulcer left lateral middle back. 3. Diabetes mellitus. Plan: Theraskin on the left is has hypergranulation tissue and is difficult removing the theraskin. Aggressive debridement today to get more of the theraskin removed. Theraskin #7 placed on right ulcer. 100% of Theraskin placed on the right. Left ulcer has theraskin on it and will leave it on for another week. Continue Doxycycline for MRSE in both ulcers. He is currently not having any of the pain that he was having before the surgical debridement. gauze. He has had 4 application of Theraskin to the left middle back and 5 applications to the right middle back. Patient is interested in having a second opinion on options. He still is hesitant to having an autograft. Referred to plastic surgery at [facility] on . Followup one week Code Visit [id number]: [id number] Skin sub graft trnk/arm/leg
[2019-02-12 14:23] VITALS: BP 124/71; PULSE 85; RESP 16; TEMP 36.6; BMI 28.0
--- NOTE | 2019-02-12 17:52 | PN.PCM_ITS ---
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 Comment: Nonhealing ulcers right lateral middle back and left lateral middle back (2) Type 2 diabetes mellitus Status: Chronic Qualifiers: Code(s): E11.9 - Type 2 diabetes mellitus without complications Type of Wound Date of Service: 02/12/19 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: Nonhealing diabetic ulcers left lateral middle back and right lateral middle back. History of Wound: Surgery 12/25/18 - 1. Surgical preparation left lateral middle back with excisional debridement nonhealing diabetic ulcer and reconstruction with placement of Thera-skin allograft (56 cm2) and AmnioFill Placental Connective Tissue Powder (500 mg) and placement of TAYLOR NPWT. 2. Surgical preparation right lateral middle back with excisional debridement nonhealing diabetic ulcer and reconstruction with placement of Thera-skin allograft (15 cm2) and AmnioFill Placental Connective Tissue Powder (250 mg) and placement of TAYLOR NPWT. Wound care -He has had 4 Theraskin placements before his surgery and #7 placed on right ulcer last week. 50% of Theraskin was used on the right and the remainder was placed on the left upper ulcer. The left ulcer had hypergranulation of the theraskin with the TAYLOR and we have had a difficult time debriding the theraskin. The remainder theraskin from the right was placed over an area that has been debrided. Operative culture - MRSE in the left lateral middle back ulcer and the right lateral middle back ulcer. He is currently on Doxycycline. Patient is diabetic and his recent HgbA1c was 5.8 from 10/23/18. He is currently not having any of the pain that he was having before the surgical debridement. He went to [facility] for a second opinion last week and they recommend an autograft of the right ulcer. They did not discuss the left ulcer. He would like Dr. Lemus to do the autografts to both ulcers with TAYLOR NWPT afterwards (with amniofil placed at the time of the autografts). This will be scheduled for next week. We will not place any theraskin today. Today he denies fever. His appetite is ok. Progress of Wound: Improving - Physical Exam Vital Signs Temp Pulse Resp BP Pulse Ox 97.8 F 85 16 124/71 H 97 02/12/19 14:23 02/12/19 14:23 02/12/19 14:23 02/12/19 14:23 01/15/19 13:27 General: Alert, Oriented x3, Cooperative HEENT: Atraumatic Oral: Moist Mucosa Lungs: Normal air movement Cardiovascular: Regular rate Extremities: No edema, Capillary Refill Less than 3 Seconds Skin: Ulcer/ Wound - Right middle back and left middle back ulcers. Wound Measurements and Assessment WC - Nurse 1 - General Ulcer Measurement Start: 01/15/19 13:27 Freq: Status: Active Protocol: Activity Type Activity Date Activity User E-Sign Co-Sign Detail Recorded Client Recorded Date Recorded By Document 02/12/19 14:23 DL [id number] 02/12/19 14:31 DL 02/12/19 14:23 Wound Center Nurse 1 [Ulcer Assessment] 6. L lumbar back -Combined with other wound No -Current Size (cm) - Length 6.7 -Current Size (cm) - Width 3.8 -Current Size (cm) - Depth 0.1 -Total Square Cm 25.46 -Photo Taken No -Epithelialization Small 1-33% -Tunneling No -Undermining/Tunneling No -Circular Undermining No -Exudate Amt Small -Exudate Type Serosanguineous -Wound Margin Distinct, Outline Attached -Granulation Amt Large (67-100%) -Granulation Quality Red -Slough/Fibrin Yes -Necrosis Amt Small (1-33%) -Necrotic Tissue Type Adherent Slough -Texture (Mayra-wound Skin Appearance) Assessed, Scarring -Moisture (Mayra-wound Skin Appearance Assessed ) -Color (Mayra-wound Skin Appearance) Assessed -Temperature (Mayra-wound Skin No Abnormality Appearance) (Pt Warm) -Tenderness on Palpation (Mayra-wound No Skin Appearance) -Ulcer Cleansing Rinsed/ Irrigated with Saline -Foul Odor after Cleansing No -Anesthetic Used 5% Lidocaine Gel 5. R scapula -Combined with other wound No -Current Size (cm) - Length 4.4 -Current Size (cm) - Width 1.4 -Current Size (cm) - Depth 0.1 -Total Square Cm 6.16 -Photo Taken No -Epithelialization Small 1-33% -Tunneling No -Undermining/Tunneling No -Circular Undermining No -Exudate Amt Small -Exudate Type Serosanguineous -Wound Margin Distinct, Outline Attached -Granulation Amt Small (1-33%) -Granulation Quality Red -Slough/Fibrin Yes -Necrosis Amt Large (67-100%) -Necrotic Tissue Type Adherent Slough -Texture (Mayra-wound Skin Appearance) Assessed, Scarring -Moisture (Mayra-wound Skin Appearance Assessed ) -Color (Mayra-wound Skin Appearance) Assessed -Temperature (Mayra-wound Skin No Abnormality Appearance) (Pt Warm) -Tenderness on Palpation (Mayra-wound No Skin Appearance) -Ulcer Cleansing soap and water -Foul Odor after Cleansing No -Anesthetic Used 5% Lidocaine Gel WC - Nurse 2 - General Ulcer CM Notes Start: 01/15/19 13:27 Freq: Status: Active Protocol: Activity Type Activity Date Activity User E-Sign Co-Sign Detail Recorded Client Recorded Date Recorded By Document 02/12/19 14:55 [id number] 02/12/19 15:02 02/12/19 14:55 Wound Center Nurse 2 [Procedure/Treatment] 6. L lumbar back -Time 14:56 -Correct Patient Yes -Correct Side, Site, Position Yes -Correct Procedure Yes -Procedure Performed Yes -Type of Procedure Debridement -Clinical Debridement Subcutaneous -Post Debridement Size (cm) - Length 7 -Post Debridement Size (cm) - Width 3 -Post Debridement Size (cm) - Depth 0.2 -Total Square Cm 21 -Wound/Ulcer Outcome Not Healed -Ulcer Cleansing Rinsed/ Irrigated with Saline -Foul Odor after Cleansing No -Bioengineered Tissue No -Bleeding Controlled with Pressure -Offloading No -Treatment Response Procedure Tolerated Well 5. R scapula -Time 14:56 -Correct Patient Yes -Correct Side, Site, Position Yes -Correct Procedure Yes -Procedure Performed Yes -Type of Procedure Debridement -Clinical Debridement Subcutaneous -Post Debridement Size (cm) - Length 4.5 -Post Debridement Size (cm) - Width 1.3 -Post Debridement Size (cm) - Depth 0.1 -Total Square Cm 5.85 -Wound/Ulcer Outcome Not Healed -Ulcer Cleansing Rinsed/ Irrigated with Saline -Foul Odor after Cleansing No -Bioengineered Tissue No -Bleeding Controlled with Pressure -Offloading No -Treatment Response Procedure Tolerated Well [See Physician Procedure note for Specifics] Pain Scale: 0-10 Numeric [Pain] -Is Patient Pain Free? Yes Musculoskeletal: No Tenderness to Palpation of Joints or Extremities Neurological: Neuro grossly intact Psych/Mental Status: Normal Affect, Appropriate Debridement Note Post-Debridement Measurements/Treatment WC - Nurse 2 - General Ulcer CM Notes Start: 01/15/19 13:27 Freq: Status: Active Protocol: Activity Type Activity Date Activity User E-Sign Co-Sign Detail Recorded Client Recorded Date Recorded By Document 01/15/19 13:54 [id number] 01/15/19 14:05 Document 01/22/19 14:28 [id number] 01/22/19 14:30 Document 01/29/19 14:20 [id number] 01/29/19 14:34 Document 02/05/19 14:14 [id number] 02/05/19 14:23 Document 02/12/19 14:55 [id number] 02/12/19 15:02 01/15/19 01/22/19 01/29/19 13:54 14:28 14:20 Wound Center Nurse 2 6. L lumbar back -Time 13:54 14:28 14:33 -Correct Patient Yes Yes Yes -Correct Side, Site, Position Yes Yes Yes -Correct Procedure Yes Yes Yes -Procedure Performed Yes Yes Yes -Type of Procedure Debridement Debridement Debridement -Clinical Debridement Subcutaneous Subcutaneous Subcutaneous -Post Debridement Size (cm) - Length 5.5 5.5 4.5 -Post Debridement Size (cm) - Width 8.5 7 7.5 -Post Debridement Size (cm) - Depth 0.2 0.2 0.3 -Total Square Cm 46.75 38.5 33.75 -Wound/Ulcer Outcome Not Healed Not Healed Not Healed -Ulcer Cleansing Rinsed/ Rinsed/ Rinsed/ Irrigated with Irrigated with Irrigated with Saline Saline Saline -Foul Odor after Cleansing No No No -Bioengineered Tissue No No Yes -Type of bioengineered Tissue THERASKIN -Expiration Date 08/06/23 -Product Lot Number [id number] -Percent Used 100 -Saline Lot Number [id number] -Bleeding Controlled with Pressure Pressure -Offloading No No No -Treatment Response Procedure Procedure Procedure Tolerated Well Tolerated Well Tolerated Well 5. R scapula -Time 13:54 14:21 -Correct Patient Yes No Yes -Correct Side, Site, Position Yes No Yes -Correct Procedure Yes No Yes -Procedure Performed Yes No Yes -Type of Procedure Debridement Debridement -Clinical Debridement Subcutaneous Subcutaneous -Post Debridement Size (cm) - Length 5.5 5.0 -Post Debridement Size (cm) - Width 3 2.3 -Post Debridement Size (cm) - Depth 0.2 0.2 -Total Square Cm 16.5 11.50 -Wound/Ulcer Outcome Not Healed Not Healed -Ulcer Cleansing Rinsed/ Rinsed/ Irrigated with Irrigated with Saline Saline -Foul Odor after Cleansing No No -Bioengineered Tissue Yes Yes -Type of bioengineered Tissue THERASKIN THERASKIN -Expiration Date 11/05/20 08/06/23 -Product Lot Number [id number] -Percent Used 100 100 -Saline Lot Number [id number] -Bleeding Controlled with Pressure Pressure -Other saline [id number] -Offloading No No -Treatment Response Procedure Procedure Tolerated Well Tolerated Well Pain Scale: 0-10 Numeric Is Patient Pain Free? Yes Yes Yes 02/05/19 02/12/19 14:14 14:55 Wound Center Nurse 2 6. L lumbar back -Time 14:56 -Correct Patient No Yes -Correct Side, Site, Position No Yes -Correct Procedure No Yes -Procedure Performed No Yes -Type of Procedure Debridement -Clinical Debridement Subcutaneous -Post Debridement Size (cm) - Length 7 -Post Debridement Size (cm) - Width 3 -Post Debridement Size (cm) - Depth 0.2 -Total Square Cm 21 -Wound/Ulcer Outcome Not Healed Not Healed -Ulcer Cleansing Rinsed/ Irrigated with Saline -Foul Odor after Cleansing No -Bioengineered Tissue No -Type of bioengineered Tissue -Expiration Date -Product Lot Number -Percent Used -Saline Lot Number -Bleeding Controlled with Pressure Pressure -Offloading No No -Treatment Response Procedure Procedure Tolerated Well Tolerated Well 5. R scapula -Time 14:18 14:56 -Correct Patient Yes Yes -Correct Side, Site, Position Yes Yes -Correct Procedure Yes Yes -Procedure Performed Yes Yes -Type of Procedure Debridement Debridement -Clinical Debridement Subcutaneous Subcutaneous -Post Debridement Size (cm) - Length 4.5 4.5 -Post Debridement Size (cm) - Width 2.2 1.3 -Post Debridement Size (cm) - Depth 0.1 0.1 -Total Square Cm 9.90 5.85 -Wound/Ulcer Outcome Not Healed Not Healed -Ulcer Cleansing Rinsed/ Rinsed/ Irrigated with Irrigated with Saline Saline -Foul Odor after Cleansing No No -Bioengineered Tissue Yes No -Type of bioengineered Tissue THERASKIN -Expiration Date 12/07/21 -Product Lot Number [id number] -Percent Used 100 -Saline Lot Number [id number] -Bleeding Controlled with Pressure Pressure -Other -Offloading No No -Treatment Response Procedure Procedure Tolerated Well Tolerated Well Pain Scale: 0-10 Numeric Is Patient Pain Free? Yes Yes Wound debrided: Left middle back ulcer Laterality: Left Type of Debridement: Excisional debridement Anesthesia Used: 5% Lidocaine Gel Depth: Down to and including healthy tissue, in the subcutaneous layer Percentage of wound debrided: 100 Instrument Used: 7mm curette Tissue Removed: Subcutaneous tissue and slough Severity: Fat Layer Exposed Amount of bleeding with debridement: Moderate Bleeding Controlled with: Pressure, Compression and gauze Patient tolerated procedure well - Additional Wound Wound debrided: middle back ulcer Laterality: Right Type of Debridement: Excisional debridement Anesthesia Used: 5% Lidocaine Gel Depth: Down to and including healthy tissue, in the subcutaneous layer Percentage of wound debrided: 100 Instrument Used: 5mm curette Tissue Removed: Subcutaneous tissue and slough Severity: Fat Layer Exposed Amount of bleeding with debridement: Mild Bleeding Controlled with: Compression and gauze Patient tolerated procedure: Patient tolerated procedure well Assessment/Plan Assessment: 1. Nonhealing diabetic ulcer right lateral middle back. 2. Nonhealing diabetic ulcer left lateral middle back. 3. Diabetes mellitus. Plan: Theraskin #7 placed on right ulcer last week. 100% of Theraskin placed on the right. Left ulcer had theraskin on for 2 weeks. Removed Theraskin from both ulcers. Debrided both ulcers. Wound care will be daily silver dressings. He went to [facility] for a second opinion last week and they recommend an autograft of the right ulcer. They did not discuss the left ulcer. He would like Dr. Lemus to do the autografts to both ulcers with TAYLOR NWPT afterwards (with amniofil placed at the time of the autografts). This will be scheduled for next week. We will not place any theraskin today. Continue Doxycycline for MRSE in both ulcers. He is currently not having any of the pain that he was having before the surgical debridement. gauze. Follow up after auto graft is placed next week. Code Visit 111xxx-113xx: 45727 Pooja subq tissue 20 sq cm/< Add On Codes: 71303 Pooja subq tissue add-on
== END 2019-02-14 23:59 ==
LOC: WC 14:15
PROVIDERS: Family Provider Family Medicine; PCP Family Medicine; Visit Provider Nurse Practitioner Family
DX: E11.622 Type 2 diabetes mellitus with other skin ulcer (principal); L98.422 Non-pressure chronic ulcer of back with fat layer exposed; L98.421 Non-pressure chronic ulcer of back limited to breakdown of skin
CPT/HCPCS: 11042; 11045; 15271; 15272; 97607; Q4121

== ENCOUNTER 2019-02-18 06:23 | Day surgery (SDC) | payer OTHER, SELFPAY ==
[2019-02-05 13:51] VITALS: BMI 28.0
--- NOTE | 2019-02-17 15:41 | PCM.HP.BLA ---
History and Physical Date of Admission: 02/18/19 HISTORY OF PRESENT ILLNESS 58 year old man presents with nonhealing diabetic ulcers right lateral middle back and left lateral middle back. Patient states he had I&D procedures by his PCP of sebaceous cysts on his back in January, and March,. He developed nonhealing ulcers and was taken to surgery on 06/12/18 where he underwent surgical preparation right lateral middle back with excision 1.2 cm nonhealing diabetic ulcer and rhomboid transposition skin flap reconstruction (18 cm2) and surgical preparation left lateral middle back with excision 3 cm nonhealing diabetic ulcer and rhomboid transposition skin flap reconstruction (50 cm2). There was concern for skin cancer at that time because of the nonhealing nature of the ulcers. Pathology was negative for carcinoma. Operative culture was positive for Staphylococcus epidermidis and Staphylococcus lugdunensis on the left. The right side was negative. He was treated with antibiotics. He has intermittently had the left side cultured which has always shown Staphylococcus. His most recent culture was done on 12/03/18 which showed Staphylococcus aureus, Staphylococcus epidermidis, and Methicillin resistant Staphylococcus haemolyticus. He was placed on Doxycycline. Thera-skin allograft was recently tried on these nonhealing ulcers without much improvement. It was recommended to the patient to proceed with an operative debridement of these ulcers to see if a fresh wound base was needed to jump start the healing process. Will also place Thera-skin in the OR as well. Will send the tissue to Pathology and to Microbiology as well. His latest HgbA1c was 5.8 on 10/23/18. On 12/25/18, he went back to surgery where he underwent surgical preparation left lateral middle back with excisional debridement nonhealing diabetic ulcer and reconstruction with placement of Thera-skin allograft (56 cm2) and AmnioFill Placental Connective Tissue Powder (500 mg) and placement of TAYLOR NPWT and surgical preparation right lateral middle back with excisional debridement nonhealing diabetic ulcer and reconstruction with placement of Thera-skin allograft (15 cm2) and AmnioFill Placental Connective Tissue Powder (250 mg) and placement of TAYLOR NPWT. Operative culture showed Staphylococcus aureus and he was treated with Doxycycline. After surgery he had additional applications of Thera-skin. The ulcers improved but still had evidence of nonhealing. Initially he was hesitant about proceeding with an autograft because of the fear of the donor incision not healing. He went to [facility] for a second opinion, and they recommended skin grafting using his own tissue (autograft). That convinced him to proceed with the autograft, and he wanted it done locally here in [place]. PAST MEDICAL HISTORY Nonhealing ulcers right lateral middle back and left lateral middle back Trigger finger, left ring finger Hypertension Neuroma PAST SURGICAL HISTORY surgical preparation right lateral middle back with excision 1.2 cm nonhealing diabetic ulcer and rhomboid transposition skin flap reconstruction (18 cm2) and surgical preparation left lateral middle back with excision 3 cm nonhealing diabetic ulcer and rhomboid transposition skin flap reconstruction (50 cm2) - 06/12/18 surgical preparation left lateral middle back with excisional debridement nonhealing diabetic ulcer and reconstruction with placement of Thera-skin allograft (56 cm2) and AmnioFill Placental Connective Tissue Powder (500 mg) and placement of TAYLOR NPWT and surgical preparation right lateral middle back with excisional debridement nonhealing diabetic ulcer and reconstruction with placement of Thera-skin allograft (15 cm2) and AmnioFill Placental Connective Tissue Powder (250 mg) and placement of TAYLOR NPWT - 12/25/18 ALLERGIES No Known Allergies Allergy MEDICATIONS Albuterol. Diclofenac. Doxycycline. Acidophilus. FAMILY HISTORY Grandfather - Cancer Father - Prostate cancer Grandfather - CVA (cerebral vascular accident) SOCIAL HISTORY Smoking Status: Never smoker REVIEW OF SYSTEMS Constitutional: Denies: Chills, Fever, Weight Change. Eyes: Denies: Pain, Vision Change. HEENT: Denies: Difficulty Hearing, Difficulty Swallowing, Sinus Congestion. Cardiovascular: Denies: Chest Pain, Palpitations. Respiratory: Denies: Cough, Shortness of Breath. Gastrointestinal: Denies: Diarrhea, Nausea, Vomiting. Genitourinary: Denies: Dysuria, Hematuria. Skin: Reports: Wounds - See HPI. Endocrine: Denies: Heat/ Cold Intolerance, Polydipsia, Polyuria. Hematologic/ Lymphatic: Denies: Easy Bruising, Easy Bleeding PHYSICAL EXAMINATION General: Alert, Oriented x3 HEENT: PERRLA, EOMI Oral: Moist Mucosa Neck: Supple Lungs: Clear to auscultation Cardiovascular: Regular rate, Regular Rhythm Abdomen: Soft, Non-Distended Extremities: No clubbing, No cyanosis, No edema Skin: Ulcer/ Wound - There are nonhealing diabetic ulcers right lateral middle back and left lateral middle back. Good granulation tissue is seen. No evidence of cellulitis, fluctuance, or purulent drainage. Minimal tenderness to palpation. There is some healing of the Thera-skin as not all of it could be debrided at this time without increasing pain and bleeding. Measures 7.5 X 4.5 cm on the left and 5 X 2.5 cm on the right. Lymphatic: - - no axillary adenopathy. Neurological: Cranial nerves II-XII grossly intact Psych/Mental Status: Normal Affect, Appropriate ASSESSMENT 1. Nonhealing diabetic ulcer right lateral middle back, s/p debridement and placement of Thera-skin. 2. Nonhealing diabetic ulcer left lateral middle back, s/p debridement and placement of Thera-skin. 3. Diabetes mellitus. PLAN Continue Doxycycline antibiotics. Recommend operative intervention with excisional debridement of the nonhealing diabetic ulcers right lateral middle back and left lateral middle back. Will send tissue to Pathology for analysis to rule out carcinoma and to Microbiology for culture. A positive culture will necessitate antibiotic therapy. Will use his own skin for the skin graft (autograft). To improve healing, will use AmnioFill placental connective tissue powder underneath the graft. Will place a TAYLOR NPWT device over the skin grafts for compression to help with healing of the graft. The TAYLOR NPWT device will be removed up to a week after surgery. His latest HgbA1c was 5.8 on 10/23/18. Surgery will be done under general anesthesia on an outpatient basis. Patient was informed of the risks and complications of the procedure including alternatives to surgery. These were discussed with the patient personally. Patient voices understanding and wishes to proceed.
[2019-02-18] VITALS (7 sets, daily range): BP systolic 113–147; BP diastolic 69–80; PULSE 58–76; RESP 14–18; TEMP 36–36.8; O2SAT 93–100; BMI 28.4
[2019-02-18] MEDS: Lactated Ringers 1,000 ML 75 ML IV (06:58)
--- NOTE | 2019-02-18 08:00 | UL_PTH ---
PATIENT: BILL JACQUES LOC: [facility] [place] U#:[id number] AGE/SX: 58/M ROOM: RE02/18/[address]: Dr. David Lemus MD : 1960 BED: DIS: 02/18/2019 SPEC #: [id number] RECD: 02/18/19 13:58 STATUS: LORAINE REQ #: [id number] DELMY: 02/18/19 08:[address]: David Lemus DEPT: SURGICAL PATHOLOGY RECD BY: Sheila Martinez ENTERED: 02/18/19 14:20 SP TYPE: ULCER OTHR DR: Dr. Ryan Gandhi, DO Tissues: A - ULCER B - ULCER Procedures: Surgery Specimen Level III HEADER OPERATION: Surgical prep left lateral middle back and right lateral middle back PRE-OP DIAGNOSIS: Nonhealing diabetic ulcer right and left middle back status post debridement and placement of Thera-skin TISSUE SUBMITTED: A. Nonhealing diabetic ulcers, right lateral middle back, B. Nonhealing diabetic ulcers left lateral middle back MICROSCOPIC DIAGNOSIS A. Nonhealing diabetic ulcer, right lateral middle back, debridement: A piece of skin with underlying tissue with ulceration, acute and chronic inflammation, focal abscess formation, granulation tissue reaction and foreign body giant cell reaction. B. Nonhealing diabetic ulcer, left lateral middle back, debridement: A piece of skin with underlying tissue with ulceration, acute and chronic inflammation, granulation tissue reaction and foreign body giant cell reaction. RIGO:js 02/19/19 MICROSCOPIC DESCRIPTION Slides are reviewed. GROSS DESCRIPTION A - Received in fixative is one container labeled with the patient's name and designated nonhealing diabetic ulcers, right lateral middle back. The specimen consists of a piece of sharma-white skin measuring 3.5 x 3 cm and up to 0.5 cm in thickness. The skin surface shows area of ulceration measuring 2.5 x 1.5 cm. No mass lesion is identified. Menagerie Superintendent sections are submitted in two cassettes. B - Received in fixative is one container labeled with the patient's name and designated nonhealing diabetic ulcers, left lateral middle back. The specimen consists of a piece of sharma-white skin measuring 5.5 x 5 cm and up to 0.8 cm in thickness. The skin surface shows area of ulceration measuring 4 x 4 cm. No mass lesion is identified. Menagerie Superintendent sections are submitted in two cassettes. / RIGO:js 02/18/19 TC:2 CPT: 34714 x2
[2019-02-18] MEDS: Cefazolin 2 GM in 0.9% Normal Saline 100 ML IV (08:45)
[2019-02-18] MEDS: Mupirocin Ointment 22gm Tube 1 APPLIC (11:01)
--- NOTE | 2019-02-18 11:41 | OP.PCM_ITS ---
Report of Operation Date of Procedure: 02/18/19 Pre-Operative Diagnosis: 1. Nonhealing diabetic ulcer right lateral middle back, s/p debridement and placement of Thera-skin. 2. Nonhealing diabetic ulcer left lateral middle back, s/p debridement and placement of Thera-skin. 3. Diabetes mellitus. Post-Operative Diagnosis: Same. Surgery/Procedure Performed:: 1. Surgical preparation right lateral middle back with excision nonhealing diabetic ulcer. 2. Reconstruction with STSG from right posterior flank (21 cm2) and placement AmnioFill Placental Connective Tissue Powder (250 mg) and placement TAYLOR NPWT. 3. Surgical preparation left lateral middle back with excision nonhealing diabetic ulcer. 4. Reconstruction with STSG from left posterior flank (48 cm2) and placement of AmnioFill Placental Connective Tissue Powder (500 mg) and placement of TAYLOR NPWT. Description of Surgical Findings:: 58 year old man presents with nonhealing diabetic ulcers right lateral middle back and left lateral middle back. Patient states he had I&D procedures by his PCP of sebaceous cysts on his back in January, and March,. He developed nonhealing ulcers and was taken to surgery on 06/12/18 where he underwent surgical preparation right lateral middle back with excision 1.2 cm nonhealing diabetic ulcer and rhomboid transposition skin flap reconstruction (18 cm2) and surgical preparation left lateral middle back with excision 3 cm nonhealing diabetic ulcer and rhomboid transposition skin flap reconstruction (50 cm2). There was concern for skin cancer at that time because of the nonhealing nature of the ulcers. Pathology was negative for carcinoma. Operative culture was positive for Staphylococcus epidermidis and Staphylococcus lugdunensis on the left. The right side was negative. He was treated with antibiotics. He has intermittently had the left side cultured which has always shown Staphylococcus. His most recent culture was done on 12/03/18 which showed Staphylococcus aureus, Staphylococcus epidermidis, and Methicillin resistant Staphylococcus haemolyticus. He was placed on Doxycycline. Thera-skin allograft was recently tried on these nonhealing ulcers without much improvement. It was recommended to the patient to proceed with an operative debridement of these ulcers to see if a fresh wound base was needed to jump start the healing process. Will also place Thera-skin in the OR as well. Will send the tissue to Pathology and to Microbiology as well. His latest HgbA1c was 5.8 on 10/23/18. On 12/25/18, he went back to surgery where he underwent surgical preparation left lateral middle back with excisional debridement nonhealing diabetic ulcer and reconstruction with placement of Thera-skin allograft (56 cm2) and AmnioFill Placental Connective Tissue Powder (500 mg) and placement of TAYLOR NPWT and surgical preparation right lateral middle back with excisional debridement nonhealing diabetic ulcer and reconstruction with placement of Thera-skin allograft (15 cm2) and AmnioFill Placental Connective Tissue Powder (250 mg) and placement of TAYLOR NPWT. Operative culture showed Staphylococcus aureus and he was treated with Doxycycline. After surgery he had additional applications of Thera-skin. The ulcers improved but still had evidence of nonhealing. Initially he was hesitant about proceeding with an autograft because of the fear of the donor incision not healing. He went to [facility] for a second opinion, and they recommended skin grafting using his own tissue (autograft). That convinced him to proceed with the autograft, and he wanted it done locally here in [place]. Patient was informed of the risks and complications of the procedure including alternatives to surgery. These were discussed with the patient personally. Patient voices understanding and wishes to proceed. Some of the risks and complications were included in a form from the [employer]. Size of skin graft right lateral middle back - 3 x 7 cm. Size of skin graft left lateral middle back - 8 x 6 cm. I used AmnioFill Placental Connective Tissue Powder, (500 mg) to the left back wound). Lot Number - [id number]. Catalog Number - [id number]. Expiration - September 16, 2023. I used AmnioFill Placental Connective Tissue Powder, (250 mg to the right back wound). Lot Number - [id number]. Catalog Number - [id number]. Expiration - October 16, 2023. I used Marlin absorbable hemostat. Reference Number - [id number]. Lot Number - [id number]. Expiration - November 12, 2023. linux unix system administrator: Joselin Jaramillo. Type of Anesthesia:: General Specimen's removed: 1. Nonhealing diabetic ulcer right lateral middle back to Pathology and Microbiology. 2. Nonhealing diabetic ulcer left lateral middle back to Pathology and Microbiology. Drains: None. Estimated Blood Loss (mL): 50 ml. Description of Procedure: Patient was taken to OR in supine position and was placed under general anesthesia. He was placed in the prone position. The back was prepped and draped including the posterior flanks in the usual fashion. SCD's were placed for DVT prophylaxis. Perioperative antibiotics were given intravenously. The nonhealing diabetic ulcers on the left lateral middle back and right lateral middle back were infiltrated with xylocaine and epinephrine. After waiting 5 minutes for the anesthetic to take effect, I proceeded with excisional debridement of these nonhealing diabetic ulcers down into the subcutaneous tissue. Some of the tissue was sent to Pathology for analysis to rule out carcinoma. Some of the tissue was sent to Microbiology for culture. A positive culture will necessitate antibiotic therapy. The wounds were irrigated with saline. Hemostasis was obtained with electrocautery. The size of the wound left lateral middle back was 8 x 6 cm or 48 cm2. The size of the wound right lateral middle back was 3 x 7 cm or 21 cm2. I sprayed AmnioFill Placental Connective Tissue Powder into both wounds. I used 500 mg in the left lateral middle back wound and I used 250 mg in the right lateral middle back wound. This will help improve the base of the wounds for healing of the skin grafts. I marked out ellipses on both posterior flanks and infiltrated the markings with xylocaine with epinephrine. After waiting 5 minutes for the anesthetic to take effect, I made elliptical incisions in both the right and then the left post erior flanks. I removed the subcutaneous tissue from the undersurface of the dermis and additional deep dermis to make these thick split thickness skin grafts. Both skin grafts were placed on stretch and meshed with a 15 Scalpel. The skin grafts were placed in saline. For both of the donor incisions, I removed additional subcutaneous tissue to aid in wound closure. Hemostasis was obtained with electrocautery. The wounds were irrigated with saline. I sprayed Marlin absorbable hemostat into both posterior flank donor wounds. I then closed the right posterior flank wound and then the left posterior flank wound in a layered fashion with 2-0 Vicryl figure of eight interrupted sutures for the Artur's fascial layer. The deep dermis and subcutaneous tissue was approximated with 3-0 Monocryl interrupted sutures. The skin was approximated with 3-0 V lock unidirectional barbed running subcuticular suture. This was followed by Histoacryl skin tissue adhesive followed by gauze dressing. I then placed the split thickness skin grafts into the left lateral middle back wound and then the right lateral middle back wound. The skin grafts were secured to the skin edges with 3-0 Chromic simple interrupted sutures. I then used 3-0 Chromic interrupted sutures for central quilting stabilization. The size of the skin graft for the left lateral middle back wound was 8 x 6 cm or 48 cm2. The size of the skin graft for the right lateral middle back wound was 3 x 7 cm or 21 cm2. I then applied Bactroban ointment to the grafts followed by Mepitel nonadherent dressing. I used TAYLOR NPWT device to stabilize the graft during the initial healing process. He will be sent home with a compression francisco wrap. Patient tolerated the procedure well and was sent to PACU in satisfactory condition. Patient will be sent home on antibiotics and pain medication. Patient will followup at the Wound Center next week for a wound check and takedown of the TAYLOR NPWT device and for discussion of the pathology report and for discussion of the Microbiology report. He will stay on Doxycycline perioperatively. Depending on the amount of drainage present at the time of the TAYLOR NPWT device change, reapplication of the TAYLOR NPWT may be necessary. Grafts/Implants Used: AmnioFill Placental Connective Tissue Powder, (250 mg and 500 mg). - Complications None. - Admit VTE Documentation VTE Present on Admission: No VTE Mechan Device Prophylaxis: SCD's VTE Pharm Prophylaxis ordered?: No Code Visit Surgery Charges CPT - 27134 ICD-10 - L98.492, E11.9 15794 L98.492, E11.9 92875 L98.492, E11.9 83343 L98.492, E11.9
--- NOTE | 2019-02-18 11:59 | DCINST_ITS ---
You will use the following diet at home:: Calorie/Carbohydrate Controlled (specify 1200, 1400, etc) Discharge Activity: May not drive while taking narcotic pain medications., May Shower - in two days. Wear saran wrap over trunk to cover the TAYLOR device while showering. Avoid getting the TAYLOR dressing wet., - - keep head elevated. no h eavy lifting. May shower in (days): 2 - wear saran wrap over the TAYLOR device during the shower. May resume sexual activity in: No Restrictions Weight Bearing Status: Weight bearing as tolerated Lifting Restrictions: 20 lbs. Keep extremity elevated above heart level: - - elevate head. Call your doctor if your incision/area has: Continuous Slow Oozing, Sudden Increased Bleeding, Increased Pain/ Swelling, Increased Redness, Foul Smelling Discharge, Swelling at the incision site, - - if the TAYLOR device stops blinking green and is blinking yellow. Call your doctor if you observe: Fever of 101 or Higher, Coldness, Increased Pain, Shortness of breath, Chest pain, Calf discomfort, Uncontrolled pain Suture Line Care: - - dry dressing daily to the bilateral flank areas. Change Dressing in (Days):: 2 - bilateral flank dressings only. Remove Dressing in (days):: 7 - will remove the TAYLOR dressing at wound center. Allergies/Adverse Reactions: Allergies No Known Allergies Allergy (Verified 02/14/19 14:25) Medications to take at Discharge albuterol sulfate HFA 90 mcg/actuation aerosol inhaler 2 puff INHALATION Q6H PRN 11/22/17 Multivitamin with Minerals [Multiple Vitamin] 1 ea PO DAILY 02/14/19 Doxycycline [Vibramycin] 100 mg PO BID #28 cap 02/18/19 Lactobacillus Acidophilus/Fos [Acidophilus Probiotic Tablet] 1 ea PO BID #30 tab 02/18/19 Oxycodone HCl/Acetaminophen [Percocet 5/325] 1 tab PO Q4H PRN PRN 7 Days #40 tab 02/18/19 The following prescriptions were given: Lactobacillus Acidophilus/Fos [Acidophilus Probiotic Tablet] 1 ea PO BID #30 tab Prescription Printed Oxycodone HCl/Acetaminophen [Percocet 5/325] 1 tab PO Q4H PRN PRN 7 Days #40 tab PRN Reason: Pain Score 4-5/10 Prescription Printed Doxycycline [Vibramycin] 100 mg PO BID #28 cap Prescription Printed Primary Care Physician: Ryan Gandhi DO [Primary Care Provider] - Test Results: Test results from this visit will be discussed in further detail at your follow- up appointment, if applicable. Please Follow Up With: David Lemus MD When: monday at wound center 02/25/19. call [phone] for appt. Proposed Discharge Date: 02/18/19
[2019-02-18] MEDS: oxyCODONE 5 MG Tablet PO (13:20)
[2019-02-18] MEDS: Acetaminophen 325 MG Tablet PO (13:20)
== END 2019-02-18 14:20 | disposition home or self-care (01) ==
LOC: SDC 06:24 → AC 06:24
PROVIDERS: Family Provider Family Medicine; PCP Family Medicine; Referring Provider Surgery; Visit Provider Surgery
PROC: (CPT 11406; principal; 2019-02-18 07:45)
DX: E11.622 Type 2 diabetes mellitus with other skin ulcer (principal); L98.429 Non-pressure chronic ulcer of back with unspecified severity; I10 Essential (primary) hypertension; Z79.899 Other long term (current) drug therapy; Z87.891 Personal history of nicotine dependence
CPT/HCPCS: 11406; 15100; 87070; 87075; 87077; 87102; 87106; 87176; 87186; 87205; 87206; 88304; J7120; J2405

== ENCOUNTER → 2019-02-26 | Outpatient (CLI) | payer OTHER, SELFPAY ==
[2019-02-25 13:20] VITALS: BMI 28.4
--- NOTE | 2019-02-26 15:09 | EKG12_ITS ---
Test Reason : PRE HBO Blood Pressure : / mmHG Vent. Rate : 081 BPM Atrial Rate : 081 BPM P-R Int : 188 ms QRS Dur : 084 ms QT Int : 374 ms P-R-T Axes : 052 076 051 degrees QTc Int : 434 ms Sinus rhythm with sinus arrhythmia with occasional Premature ventricular complexes Otherwise normal ECG Confirmed by TESSIE DIEGO, SHERICE ([id number]), social media editor SAIDA OBRIEN ([id number]) on 02/27/2019 9:41:00 AM Referred By: ANGELICA Cool Confirmed By:SHERICE KURTZ MD
--- NOTE | 2019-02-26 15:30 | RAD_ITS ---
STUDY: X-RAY CHEST REASON FOR EXAM: Male, 58 years old. Chest pain and cough TECHNIQUE: PA and lateral views of the chest. COMPARISON: None. FINDINGS: The lungs are clear and expanded. There is no demonstrated pleural abnormality. Normal size heart. Normal mediastinum and vanda. Normal visualized pulmonary arteries. Normal visualized aortic arch and descending thoracic aorta. There are diffuse degenerative changes of the visualized thoracic spine. Normal visualized ribs, clavicles, and shoulders. There is no demonstrated abnormality of the visualized soft tissue structures of the upper abdomen. RAD/Chest PA and Lateral IMPRESSION: No acute pulmonary process Electronically Signed: Irving Mejias MD at 15:51 EST , Service support ,
[2019-02-26 16:19] LABS: ALB/GLOB Ratio 0.8 RATIO (0.9-2.4); AST(SGOT) 27 U/L (15-37); Alanine Aminotransfer ALT/SGPT 50 U/L (16-61); Albumin, Serum 3.3 g/dL (3.2-5.0); Alkaline Phosphatase 32 U/L (45-117); Anion Gap 5 (5-15); BUN 20 mg/dL (7-18); BUN/Creat Ratio 18.9 RATIO (10-20); Calcium,Total 9.1 mg/dL (8.5-10.1); Chloride 108 mmol/L (98-107); Creatinine, Serum 1.06 mg/dL (0.70-1.30); EST Glomerular Filtration Rate 76 mL/min (>60); Est Glom Filt Rate - Afr Amer 92 mL/min (>60); Globulin 3.9 g/dL (2.2-4.2); Glucose 127 mg/dL (74-106); Potassium 3.7 mmol/L (3.5-5.1); Protein, Total 7.2 g/dL (6.4-8.2); Sodium Level 142 mmol/L (136-145)
[2019-02-26 16:37] LABS: Hemoglobin A1c 5.9 % (4.2-6.3)
== END | disposition home or self-care (01) ==
LOC: LAB 14:37
PROVIDERS: Family Provider Family Medicine; PCP Family Medicine; Referring Provider Nurse Practitioner Family; Visit Provider Nurse Practitioner Family
DX: E11.622 Type 2 diabetes mellitus with other skin ulcer (principal); L98.422 Non-pressure chronic ulcer of back with fat layer exposed; T86.829 Unspecified complication of skin graft (allograft) (autograft)
CPT/HCPCS: 36415; 71046; 80053; 83036; 93005

== ENCOUNTER 2019-03-13 10:00 | Outpatient (RCR) | payer OTHER, SELFPAY ==
[2019-02-15 00:54] VITALS: BP 124/71; PULSE 85; RESP 16; TEMP 36.6; O2SAT 97
[2019-02-21 08:45] VITALS: BMI 28.4
[2019-02-25 13:20] VITALS: BP 127/86; PULSE 83; RESP 16; TEMP 37; BMI 28.4
--- NOTE | 2019-02-25 14:55 | PN.PCM_ITS ---
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 Comment: Nonhealing ulcers right lateral middle back and left lateral middle back (2) Unspecified complication of skin graft (allograft) (autograft) Status: Acute Current Visit: Yes Code(s): T86.829 - Unspecified complication of skin graft (allograft) (autograft) (3) Skin graft (allograft) (autograft) failure Status: Acute Current Visit: Yes Code(s): T86.821 - Skin graft (allograft) (autograft) failure (4) Type 2 diabetes mellitus Status: Chronic Current Visit: Yes Qualifiers: Code(s): E11.9 - Type 2 diabetes mellitus without complications Type of Wound Date of Service: 02/25/19 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: Nonhealing diabetic ulcers left lateral middle back and right lateral middle back. History of Wound: Surgery 12/25/18 - 1. Surgical preparation left lateral middle back with excisional debridement nonhealing diabetic ulcer and reconstruction with placement of Thera-skin allograft (56 cm2) and AmnioFill Placental Connective Tissue Powder (500 mg) and placement of TAYLOR NPWT. 2. Surgical preparation right lateral middle back with excisional debridement nonhealing diabetic ulcer and reconstruction with placement of Thera-skin allograft (15 cm2) and AmnioFill Placental Connective Tissue Powder (250 mg) and placement of TAYLOR NPWT. Wound care -He has had 4 Theraskin placements before his surgery and #7 placed on right ulcer this week. 50% of Theraskin was used on the right and the remainder was placed on the left upper ulcer. The left ulcer had hypergranulation of the theraskin with the TAYLOR and we have had a difficult time debriding the theraskin. The remainder theraskin from the right was placed over an area that has been debrided. Operative culture - MRSE in the left lateral middle back ulcer and the right lateral middle back ulcer. Patient is diabetic and his recent HgbA1c was 5.8 from 10/23/18. Surgery 02/18/19 - 1. Surgical preparation right lateral middle back with excision non healing diabetic ulcer. 2. Reconstruction with STSG from right posterior flank (21 cm2) and placment Amnio Fill Placental Connective Tissue Powder (250 mg) and placement TAYLOR NPWT. 3. Surgical preparation left lateral middle back with excision nonhealing diabetic ulcer. 4. Reconstruction with STSG from left posterio flank (48 cm2) and placment of AmnioFill Placental Connective Tissue Powder (500mg) and placement of TAYLOR NPWT. Surgical cultures came back positive for Staphylococcus epidermidis and Staphylococcus epidermidis #2, and Corynebacterium amycolatum/ xer. Stopped his Doxycycline and started him on Clindamycin. Today he denies fever. His appetite is ok. Progress of Wound: Improving - Physical Exam Vital Signs Temp Pulse Resp BP Pulse Ox 98.6 F 83 16 127/86 H 97 02/25/19 13:20 02/25/19 13:20 02/25/19 13:20 02/25/19 13:20 02/15/19 00:54 General: Alert, Oriented x3, Cooperative HEENT: Atraumatic, PERRLA, TM's Clear Oral: Moist Mucosa Neck: Supple Lungs: Clear to auscultation, Normal air movement, No rhonchi, No wheeze Cardiovascular: Regular rate, Regular Rhythm, No murmurs Abdomen: Bowel Sounds Present, Soft Extremities: No edema, Capillary Refill Less than 3 Seconds Skin: Ulcer/ Wound - Right middle back ulcer with skin graft with vascularization but with 10% skin graft compromise. Left middle back ulcer with skin graft that has 15% compromise. Wound Measurements and Assessment WC - Nurse 1 - General Ulcer Measurement Start: 02/25/19 13:20 Freq: Status: Active Protocol: Activity Type Activity Date Activity User E-Sign Co-Sign Detail Recorded Client Recorded Date Recorded By Document 02/25/19 13:20 MW [id number] 02/25/19 13:29 MW 02/25/19 13:20 Wound Center Nurse 1 [Ulcer Assessment] 6. L lumbar back -Combined with other wound No -Current Size (cm) - Length 6.6 -Current Size (cm) - Width 7.0 -Current Size (cm) - Depth 0.1 -Total Square Cm 46.20 -Date of Last Picture (Recall this 02/25/19 field) -Photo Taken Yes -Epithelialization None Present -Tunneling No -Undermining/Tunneling No -Circular Undermining No -Texture (Mayra-wound Skin Appearance) Assessed -Moisture (Mayra-wound Skin Appearance Assessed ) -Color (Mayra-wound Skin Appearance) Assessed -Ulcer Cleansing surrounding skin soap and water 5. R scapula -Combined with other wound No -Current Size (cm) - Length 4.0 -Current Size (cm) - Width 4.5 -Current Size (cm) - Depth 0.1 -Total Square Cm 18.00 -Date of Last Picture (Recall this 02/25/19 field) -Photo Taken Yes -Epithelialization None Present -Tunneling No -Undermining/Tunneling No -Circular Undermining No -Texture (Mayra-wound Skin Appearance) Assessed -Moisture (Mayra-wound Skin Appearance Assessed ) -Color (Mayra-wound Skin Appearance) Not Assessed -Ulcer Cleansing surrounding skin soap and water -Foul Odor after Cleansing No [Edema Assessment] -Lower Limb Edema Present No WC - Nurse 2 - General Ulcer CM Notes Start: 02/25/19 13:20 Freq: Status: Active Protocol: Activity Type Activity Date Activity User E-Sign Co-Sign Detail Recorded Client Recorded Date Recorded By Document 02/25/19 13:39 [id number] 02/25/19 13:40 02/25/19 13:39 Wound Center Nurse 2 [Procedure/Treatment] 6. L lumbar back -Correct Patient No -Correct Side, Site, Position No -Correct Procedure No -Procedure Performed No -Wound/Ulcer Outcome Not Healed -Ulcer Cleansing Rinsed/ Irrigated with Saline -Foul Odor after Cleansing No -Bioengineered Tissue No -Bleeding Controlled with Pressure -Offloading No -Treatment Response Procedure Tolerated Well 5. R scapula -Correct Patient No -Correct Side, Site, Position No -Correct Procedure No -Procedure Performed No -Wound/Ulcer Outcome Not Healed -Ulcer Cleansing Rinsed/ Irrigated with Saline -Foul Odor after Cleansing No -Bioengineered Tissue No -Bleeding Controlled with Pressure -Offloading No -Treatment Response Procedure Tolerated Well [See Physician Procedure note for Specifics] Pain Scale: 0-10 Numeric [Pain] -Is Patient Pain Free? Yes Musculoskeletal: No Muscle Wasting Neurological: Neuro grossly intact Psych/Mental Status: Normal Affect, Appropriate Debridement Note Post-Debridement Measurements/Treatment WC - Nurse 2 - General Ulcer CM Notes Start: 02/25/19 13:20 Freq: Status: Active Protocol: Activity Type Activity Date Activity User E-Sign Co-Sign Detail Recorded Client Recorded Date Recorded By Document 02/25/19 13:39 [id number] 02/25/19 13:40 [facility] 02/25/19 13:39 Wound Center Nurse 2 6. L lumbar back -Correct Patient No -Correct Side, Site, Position No -Correct Procedure No -Procedure Performed No -Wound/Ulcer Outcome Not Healed -Ulcer Cleansing Rinsed/ Irrigated with Saline -Foul Odor after Cleansing No -Bioengineered Tissue No -Bleeding Controlled with Pressure -Offloading No -Treatment Response Procedure Tolerated Well 5. R scapula -Correct Patient No -Correct Side, Site, Position No -Correct Procedure No -Procedure Performed No -Wound/Ulcer Outcome Not Healed -Ulcer Cleansing Rinsed/ Irrigated with Saline -Foul Odor after Cleansing No -Bioengineered Tissue No -Bleeding Controlled with Pressure -Offloading No -Treatment Response Procedure Tolerated Well Pain Scale: 0-10 Numeric Is Patient Pain Free? 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 Nonhealing diabetic ulcer right lateral middle back. 2. Nonhealing diabetic ulcer left lateral middle back. 3. Diabetes mellitus. Plan: He has had 7 application of Theraskin total. Patient had a second opinion on options at plastic surgery at [facility] who recommended an autograft. He would like to proceed with an autograft but have it at [place]. Surgery 02/18/19 - 1. Surgical preparation right lateral middle back with excision non healing diabetic ulcer. 2. Reconstruction with STSG from right posterior flank (21 cm2) and placment Amnio Fill Placental Connective Tissue Powder (250 mg) and placement TAYLOR NPWT. 3. Surgical preparation left lateral middle back with excision nonhealing diabetic ulcer. 4. Reconstruction with STSG from left posterio flank (48 cm2) and placment of AmnioFill Placental Connective Tissue Powder (500mg) and placement of TAYLOR NPWT. Surgical cultures came back positive for Staphylococcus epidermidis and Staphylococcus epidermidis #2, and Corynebacterium amycolatum/xer. Stopped his Doxycycline and started him on Clindamycin. He is having some compromise of the skin graft. On the right he has 10% compromise and on the left 15% compromise. He would benefit from having HBO therapy to help prevent further compromise of his skin graft. He should have 20-40 treatments at 2 [facility]. Will order a chest xray, EKG, labwork for a current CMP and HgA1C. Will continue to TAYLOR NPWT for another week since he is having a significant amount of drainage from his left middle back graft. Shital sibley one week Code Visit [id number]
[2019-03-04 13:13] VITALS: BP 110/71; PULSE 87; RESP 20; TEMP 37.1; BMI 28.4
--- NOTE | 2019-03-04 16:14 | PCM.WC.PN ---
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 Comment: Nonhealing ulcers right lateral middle back and left lateral middle back (2) Unspecified complication of skin graft (allograft) (autograft) Status: Acute Current Visit: Yes Code(s): T86.829 - Unspecified complication of skin graft (allograft) (autograft) (3) Skin graft (allograft) (autograft) failure Status: Acute Current Visit: Yes Code(s): T86.821 - Skin graft (allograft) (autograft) failure (4) Type 2 diabetes mellitus Status: Chronic Current Visit: Yes Qualifiers: Code(s): E11.9 - Type 2 diabetes mellitus without complications Type of Wound Date of Service: 03/04/19 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: Nonhealing diabetic ulcers left lateral middle back and right lateral middle back. History of Wound: Surgery 12/25/18 - 1. Surgical preparation left lateral middle back with excisional debridement nonhealing diabetic ulcer and reconstruction with placement of Thera-skin allograft (56 cm2) and AmnioFill Placental Connective Tissue Powder (500 mg) and placement of TAYLOR NPWT. 2. Surgical preparation right lateral middle back with excisional debridement nonhealing diabetic ulcer and reconstruction with placement of Thera-skin allograft (15 cm2) and AmnioFill Placental Connective Tissue Powder (250 mg) and placement of TAYLOR NPWT. Wound care -He has had 4 Theraskin placements before his surgery and #7 placed on right ulcer this week. 50% of Theraskin was used on the right and the remainder was placed on the left upper ulcer. The left ulcer had hypergranulation of the theraskin with the TAYLOR and we have had a difficult time debriding the theraskin. The remainder theraskin from the right was placed over an area that has been debrided. Operative culture - MRSE in the left lateral middle back ulcer and the right lateral middle back ulcer. Patient is diabetic and his recent HgbA1c was 5.8 from 10/23/18. Surgery 02/18/19 - 1. Surgical preparation right lateral middle back with excision non healing diabetic ulcer. 2. Reconstruction with STSG from right posterior flank (21 cm2) and placment Amnio Fill Placental Connective Tissue Powder (250 mg) and placement TAYLOR NPWT. 3. Surgical preparation left lateral middle back with excision nonhealing diabetic ulcer. 4. Reconstruction with STSG from left posterio flank (48 cm2) and placment of AmnioFill Placental Connective Tissue Powder (500mg) and placement of TAYLOR NPWT. Surgical cultures came back positive for Staphylococcus epidermidis and Staphylococcus epidermidis #2, and Corynebacterium amycolatum/xer. Stopped his Doxycycline and started him on Clindamycin. He has been approved for HBOT because of the compromise of his grafts. Today he denies fever. His appetite is ok. Progress of Wound: Stable - Physical Exam Vital Signs Temp Pulse Resp BP Pulse Ox 98.8 F 87 20 H 110/71 97 03/04/19 13:13 03/04/19 13:13 03/04/19 13:13 03/04/19 13:13 02/15/19 00:54 General: Alert, Oriented x3, Cooperative HEENT: Atraumatic Oral: Moist Mucosa Lungs: Normal air movement Cardiovascular: Regular rate Extremities: Capillary Refill Less than 3 Seconds Skin: Ulcer/ Wound - Left middle back and right middle back ulcers with skin graft. Wound Measurements and Assessment WC - Nurse 1 - General Ulcer Measurement Start: 02/25/19 13:20 Freq: Status: Active Protocol: Activity Type Activity Date Activity User E-Sign Co-Sign Detail Recorded Client Recorded Date Recorded By Document 03/04/19 13:13 DL [id number] 03/04/19 13:22 DL 03/04/19 13:13 Wound Center Nurse 1 [Ulcer Assessment] 6. L lumbar back -Current Size (cm) - Length 3.7 -Current Size (cm) - Width 6 -Current Size (cm) - Depth 0.1 -Total Square Cm 22.2 -Photo Taken No -Exudate Amt Small -Exudate Type Serosanguineous -Wound Margin Distinct, Outline Attached -Granulation Amt Medium (34-66%) -Granulation Quality Aquilla,Red -Necrosis Amt Medium (34-66%) -Necrotic Tissue Type Adherent Slough -Structure Exposed N/A -Texture (Mayra-wound Skin Appearance) Scarring -Moisture (Mayra-wound Skin Appearance No Abnormality ) -Color (Mayra-wound Skin Appearance) Erythema,Rubor -Temperature (Mayra-wound Skin No Abnormality Appearance) (Pt Warm) -Tenderness on Palpation (Mayra-wound No Skin Appearance) -Ulcer Cleansing Wound Cleanser -Foul Odor after Cleansing No -Anesthetic Used 4% Lidocaine Solution 5. R scapula -Current Size (cm) - Length 5.7 -Current Size (cm) - Width 8 -Current Size (cm) - Depth 1.3 -Total Square Cm 45.6 -Photo Taken No -Undermining/Tunneling Starts (O' 11 clock) -Undermining/Tunneling Ends (O'clock) 1 -Maximum Distance (cm) 1.1 -Circular Undermining No -Exudate Amt Small -Exudate Type Serosanguineous -Wound Margin Distinct, Outline Attached -Granulation Amt Medium (34-66%) -Granulation Quality Aquilla -Necrosis Amt Medium (34-66%) -Necrotic Tissue Type Adherent Slough -Structure Exposed N/A -Texture (Mayra-wound Skin Appearance) Scarring -Moisture (Mayra-wound Skin Appearance No Abnormality ) -Color (Mayra-wound Skin Appearance) Erythema,Rubor -Temperature (Mayra-wound Skin No Abnormality Appearance) (Pt Warm) -Ulcer Cleansing Wound Cleanser -Foul Odor after Cleansing No -Anesthetic Used 4% Lidocaine Solution WC - Nurse 2 - General Ulcer CM Notes Start: 02/25/19 13:20 Freq: Status: Active Protocol: Activity Type Activity Date Activity User E-Sign Co-Sign Detail Recorded Client Recorded Date Recorded By Document 03/04/19 13:41 [id number] 03/04/19 13:43 03/04/19 13:41 Wound Center Nurse 2 [Procedure/Treatment] 6. L lumbar back -Time 13:42 -Correct Patient Yes -Correct Side, Site, Position Yes -Correct Procedure Yes -Procedure Performed Yes -Type of Procedure Debridement -Clinical Debridement Selective -Post Debridement Size (cm) - Length 0.4 -Post Debridement Size (cm) - Width 2.3 -Post Debridement Size (cm) - Depth 1.0 -Total Square Cm 0.92 -Wound/Ulcer Outcome Not Healed -Ulcer Cleansing Rinsed/ Irrigated with Saline -Foul Odor after Cleansing No -Bioengineered Tissue No -Bleeding Controlled with Pressure -Offloading No -Treatment Response Procedure Tolerated Well 5. R scapula -Correct Patient No -Correct Side, Site, Position No -Correct Procedure No -Procedure Performed No -Wound/Ulcer Outcome Not Healed [See Physician Procedure note for Specifics] Pain Scale: 0-10 Numeric [Pain] -Is Patient Pain Free? Yes Musculoskeletal: No Muscle Wasting Neurological: Neuro grossly intact Psych/Mental Status: Normal Affect, Appropriate Debridement Note Post-Debridement Measurements/Treatment WC - Nurse 2 - General Ulcer CM Notes Start: 02/25/19 13:20 Freq: Status: Active Protocol: Activity Type Activity Date Activity User E-Sign Co-Sign Detail Recorded Client Recorded Date Recorded By Document 02/25/19 13:39 [id number] 02/25/19 13:40 Document 03/04/19 13:41 [id number] 03/04/19 13:43 02/25/19 03/04/19 13:39 13:41 Wound Center Nurse 2 6. L lumbar back -Time 13:42 -Correct Patient No Yes -Correct Side, Site, Position No Yes -Correct Procedure No Yes -Procedure Performed No Yes -Type of Procedure Debridement -Clinical Debridement Selective -Post Debridement Size (cm) - Length 0.4 -Post Debridement Size (cm) - Width 2.3 -Post Debridement Size (cm) - Depth 1.0 -Total Square Cm 0.92 -Wound/Ulcer Outcome Not Healed Not Healed -Ulcer Cleansing Rinsed/ Rinsed/ Irrigated with Irrigated with Saline Saline -Foul Odor after Cleansing No No -Bioengineered Tissue No No -Bleeding Controlled with Pressure Pressure -Offloading No No -Treatment Response Procedure Procedure Tolerated Well Tolerated Well 5. R scapula -Correct Patient No No -Correct Side, Site, Position No No -Correct Procedure No No -Procedure Performed No No -Wound/Ulcer Outcome Not Healed Not Healed -Ulcer Cleansing Rinsed/ Irrigated with Saline -Foul Odor after Cleansing No -Bioengineered Tissue No -Bleeding Controlled with Pressure -Offloading No -Treatment Response Procedure Tolerated Well Pain Scale: 0-10 Numeric Is Patient Pain Free? Yes Yes Wound debrided: Edge separation of ucler at 12 o'clock Laterality: Left Type of Debridement: Selective debridement Anesthesia Used: 5% Lidocaine Gel Depth: Down to and including healthy tissue, in the subcutaneous layer Percentage of wound debrided: 10 Instrument Used: 3mm curette Tissue Removed: subcutaneous tissue and slough Severity: Fat Layer Exposed Amount of bleeding with debridement: Mild Bleeding Controlled with: Pressure, Compression and gauze Patient tolerated procedure well Assessment/Plan Active Problems (Last Reviewed 02/21/19 @ 08:45 by Yeimy Li) Unspecified complication of skin graft (allograft) (autograft) (Acute) Skin graft (allograft) (autograft) failure (Acute) Non-pressure chronic ulcer of skin of other sites with fat layer exposed (Chronic) Nonhealing ulcers right lateral middle back and left lateral middle back Type 2 diabetes mellitus (Chronic) Assessment: 1. Nonhealing diabetic ulcer right lateral middle back. 2. Nonhealing diabetic ulcer left lateral middle back. 3. Diabetes mellitus. Plan: He has had 7 application of Theraskin total. Patient had a second opinion on options at plastic surgery at [facility] who recommended an autograft. Surgery 02/18/19 - 1. Surgical preparation right lateral middle back with excision non healing diabetic ulcer. 2. Reconstruction with STSG from right posterior flank (21 cm2) and placment Amnio Fill Placental Connective Tissue Powder (250 mg) and placement TAYLOR NPWT. 3. Surgical preparation left lateral middle back with excision nonhealing diabetic ulcer. 4. Reconstruction with STSG from left posterio flank (48 cm2) and placment of AmnioFill Placental Connective Tissue Powder (500mg) and placement of TAYLOR NPWT. Surgical cultures came back positive for Staphylococcus epidermidis and Staphylococcus epidermidis #2, and Corynebacterium amycolatum/xer. Stopped his Doxycycline and started him on Clindamycin. He is having some compromise of the skin graft. On the right he has 10% compromise and on the left 15% compromise. He would benefit from having HBO therapy to help prevent further compromise of his skin graft. He was approved for HBOT which will start this week. Chest x-ray and ECG normal. HgA1C 5.9 from 02/26/19. Will continue to TAYLOR NPWT for another week since he is having a significant amount of drainage from his left middle back graft. Followup one week Code Visit [id number]
--- NOTE | 2019-03-05 12:47 | HBO.PN.PCM_ITS ---
History of Present Illness Date of Service: 03/05/19 Presenting 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: Nonhealing diabetic ulcers left lateral middle back and right lateral middle back. BILL JACQUES is a 58 year old currently undergoing hyperbaric oxygen therapy for Nonhealing diabetic ulcers left lateral middle back and right lateral middle back With graft compromise. Progress: Today represents the patient's initial hyperbaric oxygen therapy session, of a planned total of 40 sessions. Tolerance of hyperbaric oxygen therapy: Hyperbaric oxygen therapy was administered today as per our facility's protocol. The patient tolerated hyperbaric oxygen therapy well without complaints or complications. Upon emergence from the hyperbaric oxygen chamber, the patient's vital signs remained stable. Past Medical History Chronic Problems (Last Reviewed 02/21/19 @ 08:45 by Yeimy Li) LEYDI (obstructive sleep apnea) (Chronic) Diabetes (Chronic) Hearing problem (Chronic) Non-pressure chronic ulcer of skin of other sites with fat layer exposed (Ch ronic) Nonhealing ulcers right lateral middle back and left lateral middle back Nonhealing surgical wound (Chronic) right lateral middle back and left lateral middle back after excision of nonhealing diabetic ulcers with skin flap reconstruction Type 2 diabetes mellitus (Chronic) Trigger finger, left ring finger (Chronic) Hypertension (Chronic) Neuroma (Chronic) Allergies/Adverse Reactions: Allergies No Known Allergies Allergy (Verified 02/21/19 08:44) Home Medications: Ambulatory Orders Medication Instructions Recorded albuterol sulfate HFA 90 2 puff INHALATION Q6H PRN 11/22/17 mcg/actuation aerosol inhaler Multivitamin with Minerals 1 ea PO DAILY 02/14/19 [Multiple Vitamin] Doxycycline [Vibramycin] 100 mg PO BID #28 cap 02/18/19 Lactobacillus Acidophilus/Fos 1 ea PO BID #30 tab 02/18/19 [Acidophilus Probiotic Tablet] clindamycin HCl 300 mg capsule 300 mg PO Q8H 14 Days #42 cap 02/21/19 Paternal Family History: Family History (Last Reviewed 02/21/19 @ 08:45 by Yeimy Li) Grandfather Cancer Father Prostate cancer Grandfather CVA (cerebral vascular accident) Family History: Cancer, - Smoking Status: Unknown if ever smoked Physical Exam Vital Signs Temp Pulse Resp BP Pulse Ox 98.8 F 87 20 H 110/71 97 03/04/19 13:13 03/04/19 13:13 03/04/19 13:13 03/04/19 13:13 02/15/19 00:54 General: Alert, Oriented x3, Cooperative, No apparent distress HEENT: Atraumatic, TM's Clear Lungs: Clear to auscultation, Normal air movement Cardiovascular: Regular rate, Regular Rhythm Psych/Mental Status: Normal Affect, Appropriate, Alert and oriented to time, place, person, mood and affect Assessment/Plan Active Problems (Last Reviewed 02/21/19 @ 08:45 by Yeimy Li) Unspecified complication of skin graft (allograft) (autograft) (Acute) 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
[2019-03-05 14:20] VITALS: BP 109/61; PULSE 79; RESP 16; TEMP 36.7
--- NOTE | 2019-03-06 12:45 | PCM.HBO.PN ---
History of Present Illness Date of Service: 03/06/19 Presenting 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: Nonhealing diabetic ulcers left lateral middle back and right lateral middle back. BILL JACQUES is a 58 year old currently undergoing hyperbaric oxygen therapy for Nonhealing diabetic ulcers left lateral middle back and right lateral middle back With graft compromise. Progress: Today represents the patient's2nd hyperbaric oxygen therapy session, of a planned total of 40 sessions. Tolerance of hyperbaric oxygen therapy: Hyperbaric oxygen therapy was administered today as per our facility's protocol. The patient tolerated hyperbaric oxygen therapy well without complaints or complications. Upon emergence from the hyperbaric oxygen chamber, the patient's vital signs remained stable. 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 Trigger finger, left ring finger (Chronic) Hypertension (Chronic) Neuroma (Chronic) Allergies/Adverse Reactions: Allergies No Known Allergies Allergy (Verified 02/21/19 08:44) Home Medications: Ambulatory Orders Medication Instructions Recorded albuterol sulfate HFA 90 2 puff INHALATION Q6H PRN 11/22/17 mcg/actuation aerosol inhaler Multivitamin with Minerals 1 ea PO DAILY 02/14/19 [Multiple Vitamin] Doxycycline [Vibramycin] 100 mg PO BID #28 cap 02/18/19 Lactobacillus Acidophilus/Fos 1 ea PO BID #30 tab 02/18/19 [Acidophilus Probiotic Tablet] clindamycin HCl 300 mg capsule 300 mg PO Q8H 14 Days #42 cap 02/21/19 Paternal Family History: Family History (Last Reviewed 02/21/19 @ 08:45 by Yeimy Li) Grandfather Cancer Father Prostate cancer Grandfather CVA (cerebral vascular accident) Family History: Cancer, - Smoking Status: Unknown if ever smoked Physical Exam Vital Signs Temp Pulse Resp BP Pulse Ox 98.8 F 87 20 H 110/71 97 03/04/19 13:13 03/04/19 13:13 03/04/19 13:13 03/04/19 13:13 02/15/19 00:54 General: Alert, Oriented x3, Cooperative, No apparent distress HEENT: Atraumatic, TM's Clear Lungs: Clear to auscultation, Normal air movement Cardiovascular: Regular rate, Regular Rhythm Psych/Mental Status: Normal Affect, Appropriate, Alert and oriented to time, place, person, mood and affect Assessment/Plan Active Problems (Last Reviewed 02/21/19 @ 08:45 by Yeimy Li) Unspecified complication of skin graft (allograft) (autograft) (Acute) 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
[2019-03-06 12:57] VITALS: BP 124/72; BP 132/70; PULSE 83; PULSE 88; RESP 16; RESP 18; TEMP 36.7; TEMP 36.9
[2019-03-07 12:29] VITALS: BP 124/75; BP 132/70; PULSE 75; PULSE 88; RESP 16; RESP 18; TEMP 36.6; TEMP 36.8
--- NOTE | 2019-03-07 13:07 | HBO.PN.PCM_ITS ---
History of Present Illness Date of Service: 03/07/19 Presenting 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: Nonhealing diabetic ulcers left lateral middle back and right lateral middle back. BILL JACQUES is a 58 year old currently undergoing hyperbaric oxygen therapy for Nonhealing diabetic ulcers left lateral middle back and right lateral middle back With graft compromise. Progress: Today represents the patient's 3rd hyperbaric oxygen therapy session, of a planned total of 40 sessions. Tolerance of hyperbaric oxygen therapy: Hyperbaric oxygen therapy was administered today as per our facility's protocol. The patient tolerated hyperbaric oxygen therapy well without complaints or complications. Upon emergence from the hyperbaric oxygen chamber, the patient's vital signs remained stable. 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 c) Nonhealing ulcers right lateral middle back and left lateral middle back Nonhealing surgical wound (Chronic) right lateral middle back and left lateral middle back after excision of nonhealing diabetic ulcers with skin flap reconstruction Type 2 diabetes mellitus (Chronic) Trigger finger, left ring finger (Chronic) Hypertension (Chronic) Neuroma (Chronic) Allergies/Adverse Reactions: Allergies No Known Allergies Allergy (Verified 02/21/19 08:44) Home Medications: Ambulatory Orders Medication Instructions Recorded albuterol sulfate HFA 90 2 puff INHALATION Q6H PRN 11/22/17 mcg/actuation aerosol inhaler Multivitamin with Minerals 1 ea PO DAILY 02/14/19 [Multiple Vitamin] Doxycycline [Vibramycin] 100 mg PO BID #28 cap 02/18/19 Lactobacillus Acidophilus/Fos 1 ea PO BID #30 tab 02/18/19 [Acidophilus Probiotic Tablet] Paternal Family History: Family History (Last Reviewed 02/21/19 @ 08:45 by Yeimy Li) Grandfather Cancer Father Prostate cancer Grandfather CVA (cerebral vascular accident) Family History: Cancer, - Smoking Status: Unknown if ever smoked Physical Exam Vital Signs Temp Pulse Resp BP Pulse Ox 98.2 F 88 18 124/75 H 97 03/07/19 12:29 03/07/19 12:29 03/07/19 12:29 03/07/19 12:29 02/15/19 00:54 General: Alert, Oriented x3, Cooperative, No apparent distress HEENT: Atraumatic, TM's Clear Lungs: Clear to auscultation, Normal air movement Cardiovascular: Regular rate, Regular Rhythm Psych/Mental Status: Normal Affect, Appropriate, Alert and oriented to time, place, person, mood and affect Assessment/Plan Active Problems (Last Reviewed 02/21/19 @ 08:45 by Yeimy Li) Unspecified complication of skin graft (allograft) (autograft) (Acute) 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
[2019-03-08 10:33] VITALS: BP 149/81; PULSE 79; RESP 16; TEMP 36.4
--- NOTE | 2019-03-08 13:44 | HBO.PN.PCM_ITS ---
History of Present Illness Date of Service: 03/08/19 Presenting 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: Nonhealing diabetic ulcers left lateral middle back and right lateral middle back. BILL JACQUES is a 58 year old currently undergoing hyperbaric oxygen therapy for Nonhealing diabetic ulcers left lateral middle back and right lateral middle back With graft compromise. Progress: Today represents the patient's 4th hyperbaric oxygen therapy session, of a planned total of 40 sessions. Tolerance of hyperbaric oxygen therapy: Hyperbaric oxygen therapy was administered today as per our facility's protocol. The patient tolerated hyperbaric oxygen therapy well without complaints or complications. Upon emergence from the hyperbaric oxygen chamber, the patient's vital signs remained stable. 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 c) Nonhealing ulcers right lateral middle back and left lateral middle back Nonhealing surgical wound (Chronic) right lateral middle back and left lateral middle back after excision of nonhealing diabetic ulcers with skin flap reconstruction Type 2 diabetes mellitus (Chronic) Trigger finger, left ring finger (Chronic) Hypertension (Chronic) Neuroma (Chronic) Allergies/Adverse Reactions: Allergies No Known Allergies Allergy (Verified 02/21/19 08:44) Home Medications: Ambulatory Orders Medication Instructions Recorded albuterol sulfate HFA 90 2 puff INHALATION Q6H PRN 11/22/17 mcg/actuation aerosol inhaler Multivitamin with Minerals 1 ea PO DAILY 02/14/19 [Multiple Vitamin] Doxycycline [Vibramycin] 100 mg PO BID #28 cap 02/18/19 Lactobacillus Acidophilus/Fos 1 ea PO BID #30 tab 02/18/19 [Acidophilus Probiotic Tablet] Paternal Family History: Family History (Last Reviewed 02/21/19 @ 08:45 by Yeimy Li) Grandfather Cancer Father Prostate cancer Grandfather CVA (cerebral vascular accident) Family History: Cancer, - Lives: Spouse/ Significant Other Smoking Status: Unknown if ever smoked Tobacco Use: Non-smoker Alcohol: None Drugs: None Physical Exam Vital Signs Temp Pulse Resp BP Pulse Ox 97.5 F L 79 16 149/81 H 97 03/08/19 10:33 03/08/19 10:33 03/08/19 10:33 03/08/19 10:33 02/15/19 00:54 General: Alert, Oriented x3, Cooperative, No apparent distress Psych/Mental Status: Normal Affect, Appropriate Assessment/Plan Active Problems (Last Reviewed 02/21/19 @ 08:45 by Yeimy Li) Unspecified complication of skin graft (allograft) (autograft) (Acute) 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
[2019-03-11 11:09] VITALS: BP 133/69; PULSE 80; RESP 20; TEMP 36.6; BMI 28.4
[2019-03-11 13:24] VITALS: BP 133/69; BP 138/76; PULSE 68; PULSE 80; RESP 16; RESP 18; TEMP 36.5; TEMP 36.7
--- NOTE | 2019-03-11 14:04 | HBO.PN.PCM_ITS ---
History of Present Illness Date of Service: 03/11/19 Presenting 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: Nonhealing diabetic ulcers left lateral middle back and right lateral middle back. BILL JACQUES is a 58 year old currently undergoing hyperbaric oxygen therapy for Nonhealing diabetic ulcers left lateral middle back and right lateral middle back With graft compromise. Progress: Today represents the patient's 5th hyperbaric oxygen therapy session, of a planned total of 40 sessions. Tolerance of hyperbaric oxygen therapy: Hyperbaric oxygen therapy was administered today as per our facility's protocol. The patient tolerated hyperbaric oxygen therapy well without complaints or complications. Upon emergence from the hyperbaric oxygen chamber, the patient's vital signs remained stable. 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 c) Nonhealing ulcers right lateral middle back and left lateral middle back Nonhealing surgical wound (Chronic) right lateral middle back and left lateral middle back after excision of nonhealing diabetic ulcers with skin flap reconstruction Type 2 diabetes mellitus (Chronic) Trigger finger, left ring finger (Chronic) Hypertension (Chronic) Neuroma (Chronic) Allergies/Adverse Reactions: Allergies No Known Allergies Allergy (Verified 02/21/19 08:44) Home Medications: Ambulatory Orders Medication Instructions Recorded albuterol sulfate HFA 90 2 puff INHALATION Q6H PRN 11/22/17 mcg/actuation aerosol inhaler Multivitamin with Minerals 1 ea PO DAILY 02/14/19 [Multiple Vitamin] Doxycycline [Vibramycin] 100 mg PO BID #28 cap 02/18/19 Lactobacillus Acidophilus/Fos 1 ea PO BID #30 tab 02/18/19 [Acidophilus Probiotic Tablet] Paternal Family History: Family History (Last Reviewed 02/21/19 @ 08:45 by Yeimy Li) Grandfather Cancer Father Prostate cancer Grandfather CVA (cerebral vascular accident) Family History: Cancer, - Lives: Spouse/ Significant Other Smoking Status: Unknown if ever smoked Tobacco Use: Non-smoker Alcohol: None Drugs: None Physical Exam Vital Signs Temp Pulse Resp BP Pulse Ox 98.0 F 80 18 133/69 H 97 03/11/19 13:24 03/11/19 13:24 03/11/19 13:24 03/11/19 13:24 02/15/19 00:54 General: Alert, Oriented x3, Cooperative HEENT: Atraumatic, TM's Clear Lungs: Clear to auscultation, Normal air movement Cardiovascular: Regular rate, Regular Rhythm Psych/Mental Status: Normal Affect, Appropriate, Alert and oriented to time, place, person, mood and affect Assessment/Plan Active Problems (Last Reviewed 02/21/19 @ 08:45 by Yeimy Li) Unspecified complication of skin graft (allograft) (autograft) (Acute) 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
--- NOTE | 2019-03-11 14:06 | PCM.WC.PN ---
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 Comment: Nonhealing ulcers right lateral middle back and left lateral middle back (2) Unspecified complication of skin graft (allograft) (autograft) Status: Acute Code(s): T86.829 - Unspecified complication of skin graft (allograft) (autograft) (3) Skin graft (allograft) (autograft) failure Status: Acute Code(s): T86.821 - Skin graft (allograft) (autograft) failure (4) Type 2 diabetes mellitus Status: Chronic Qualifiers: Code(s): E11.9 - Type 2 diabetes mellitus without complications Type of Wound Date of Service: 03/11/19 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: Nonhealing diabetic ulcers left lateral middle back and right lateral middle back. History of Wound: Surgery 12/25/18 - 1. Surgical preparation left lateral middle back with excisional debridement nonhealing diabetic ulcer and reconstruction with placement of Thera-skin allograft (56 cm2) and AmnioFill Placental Connective Tissue Powder (500 mg) and placement of TAYLOR NPWT. 2. Surgical preparation right lateral middle back with excisional debridement nonhealing diabetic ulcer and reconstruction with placement of Thera-skin allograft (15 cm2) and AmnioFill Placental Connective Tissue Powder (250 mg) and placement of TAYLOR NPWT. Had 7 placements of Theraskin. Operative culture - MRSE in the left lateral middle back ulcer and the right lateral middle back ulcer. Patient is diabetic and his recent HgbA1c was 5.8 from 10/23/18. Surgery 02/18/19 - 1. Surgical preparation right lateral middle back with excision non healing diabetic ulcer. 2. Reconstruction with STSG from right posterior flank (21 cm2) and placment Amnio Fill Placental Connective Tissue Powder (250 mg) and placement TAYLOR NPWT. 3. Surgical preparation left lateral middle back with excision nonhealing diabetic ulcer. 4. Reconstruction with STSG from left posterio flank (48 cm2) and placment of AmnioFill Placental Connective Tissue Powder (500mg) and placement of TAYLOR NPWT. Surgical cultures came back positive for Staphylococcus epidermidis and Staphylococcus epidermidis #2, and Corynebacterium amycolatum/xer. Stopped his Doxycycline and started him on Clindamycin. He has been approved for HBOT because of the compromise of his grafts he is tolerating it well. Wound care- stop TAYLOR and start calcium alginate dressings. Today he denies fever. His appetite is ok. Progress of Wound: Stable - Physical Exam Vital Signs Temp Pulse Resp BP Pulse Ox 98.0 F 80 18 133/69 H 97 03/11/19 13:24 03/11/19 13:24 03/11/19 13:24 03/11/19 13:24 02/15/19 00:54 General: Alert, Oriented x3, Cooperative HEENT: Atraumatic Oral: Moist Mucosa Lungs: Normal air movement Cardiovascular: Regular rate Extremities: No edema, Capillary Refill Less than 3 Seconds Skin: Ulcer/ Wound - Right middle back and left middle back ulcers. Left ulcer has some separation at 11-12 o'clock, will monitor it closely. Wound Measurements and Assessment WC - Nurse 1 - General Ulcer Measurement Start: 02/25/19 13:20 Freq: Status: Active Protocol: Activity Type Activity Date Activity User E-Sign Co-Sign Detail Recorded Client Recorded Date Recorded By Document 03/11/19 11:09 DL [id number] 03/11/19 11:18 DL 03/11/19 11:09 Wound Center Nurse 1 [Ulcer Assessment] 6. L lumbar back -Current Size (cm) - Length 9 -Current Size (cm) - Width 5.4 -Current Size (cm) - Depth 0.1 -Total Square Cm 48.6 -Photo Taken No -Exudate Amt Small -Exudate Type Serosanguineous -Wound Margin Distinct, Outline Attached -Granulation Amt Medium (34-66%) -Granulation Quality [place],Red -Necrosis Amt Medium (34-66%) -Necrotic Tissue Type Adherent Slough -Structure Exposed N/A -Texture (Mayra-wound Skin Appearance) Scarring -Moisture (Mayra-wound Skin Appearance No Abnormality ) -Color (Mayra-wound Skin Appearance) No Abnormality -Temperature (Mayra-wound Skin No Abnormality Appearance) (Pt Warm) -Tenderness on Palpation (Mayra-wound No Skin Appearance) -Ulcer Cleansing Wound Cleanser -Foul Odor after Cleansing No -Anesthetic Used 4% Lidocaine Solution 5. R scapula -Current Size (cm) - Length 6 -Current Size (cm) - Width 3.5 -Current Size (cm) - Depth 0.1 -Total Square Cm 21.0 -Photo Taken No -Exudate Amt Small -Exudate Type Serosanguineous -Wound Margin Distinct, Outline Attached -Granulation Amt Medium (34-66%) -Granulation Quality [place],Red -Necrosis Amt Medium (34-66%) -Necrotic Tissue Type Adherent Slough -Texture (Mayra-wound Skin Appearance) Scarring -Moisture (Mayra-wound Skin Appearance No Abnormality ) -Color (Mayra-wound Skin Appearance) No Abnormality -Temperature (Mayra-wound Skin No Abnormality Appearance) (Pt Warm) -Tenderness on Palpation (Mayra-wound No Skin Appearance) -Ulcer Cleansing Wound Cleanser -Foul Odor after Cleansing No -Anesthetic Used 4% Lidocaine Solution WC - Nurse 2 - General Ulcer CM Notes Start: 02/25/19 13:20 Freq: Status: Active Protocol: Activity Type Activity Date Activity User E-Sign Co-Sign Detail Recorded Client Recorded Date Recorded By Document 03/11/19 12:12 [email or web address] [id number] 03/11/19 12:16 [facility] 03/11/19 12:12 Wound Center Nurse 2 [Procedure/Treatment] 6. L lumbar back -Time 12:12 -Correct Patient Yes -Correct Side, Site, Position Yes -Correct Procedure Yes -Procedure Performed Yes -Type of Procedure Debridement -Clinical Debridement Selective -Post Debridement Size (cm) - Length 0.5 -Post Debridement Size (cm) - Width 3.0 -Post Debridement Size (cm) - Depth 0.5 -Total Square Cm 1.50 -Wound/Ulcer Outcome Not Healed -Ulcer Cleansing Rinsed/ Irrigated with Saline -Foul Odor after Cleansing No -Bioengineered Tissue No -Bleeding Controlled with Pressure -Offloading No -Treatment Response Procedure Tolerated Well 5. R scapula -Time 12:14 -Correct Patient No -Correct Side, Site, Position No -Correct Procedure No -Procedure Performed No -Wound/Ulcer Outcome Not Healed -Ulcer Cleansing Rinsed/ Irrigated with Saline -Foul Odor after Cleansing No -Bioengineered Tissue No [See Physician Procedure note for Specifics] Pain Scale: 0-10 Numeric [Pain] -Is Patient Pain Free? Yes Debridement Note Post-Debridement Measurements/Treatment WC - Nurse 2 - General Ulcer CM Notes Start: 02/25/19 13:20 Freq: Status: Active Protocol: Activity Type Activity Date Activity User E-Sign Co-Sign Detail Recorded Client Recorded Date Recorded By Document 02/25/19 13:39 [id number] 02/25/19 13:40 Document 03/04/19 13:41 [id number] 03/04/19 13:43 Document 03/11/19 12:12 [id number] 03/11/19 12:16 02/25/19 03/04/19 03/11/19 13:39 13:41 12:12 Wound Center Nurse 2 6. L lumbar back -Time 13:42 12:12 -Correct Patient No Yes Yes -Correct Side, Site, Position No Yes Yes -Correct Procedure No Yes Yes -Procedure Performed No Yes Yes -Type of Procedure Debridement Debridement -Clinical Debridement Selective Selective -Post Debridement Size (cm) - Length 0.4 0.5 -Post Debridement Size (cm) - Width 2.3 3.0 -Post Debridement Size (cm) - Depth 1.0 0.5 -Total Square Cm 0.92 1.50 -Wound/Ulcer Outcome Not Healed Not Healed Not Healed -Ulcer Cleansing Rinsed/ Rinsed/ Rinsed/ Irrigated with Irrigated with Irrigated with Saline Saline Saline -Foul Odor after Cleansing No No No -Bioengineered Tissue No No No -Bleeding Controlled with Pressure Pressure Pressure -Offloading No No No -Treatment Response Procedure Procedure Procedure Tolerated Well Tolerated Well Tolerated Well 5. R scapula -Time 12:14 -Correct Patient No No No -Correct Side, Site, Position No No No -Correct Procedure No No No -Procedure Performed No No No -Wound/Ulcer Outcome Not Healed Not Healed Not Healed -Ulcer Cleansing Rinsed/ Rinsed/ Irrigated with Irrigated with Saline Saline -Foul Odor after Cleansing No No -Bioengineered Tissue No No -Bleeding Controlled with Pressure -Offloading No -Treatment Response Procedure Tolerated Well Pain Scale: 0-10 Numeric Is Patient Pain Free? Yes Yes Yes Wound debrided: left middle back ulcer Laterality: Left Type of Debridement: Selective debridement Anesthesia Used: 5% Lidocaine Gel Depth: Down to and including healthy tissue, in the subcutaneous layer Percentage of wound debrided: 20 Instrument Used: 3mm curette Tissue Removed: subcutaneous tissue and slough Severity: Fat Layer Exposed Amount of bleeding with debridement: Mild Bleeding Controlled with: Pressure Patient tolerated procedure well Assessment/Plan Assessment: 1. Nonhealing diabetic ulcer right lateral middle back. 2. Nonhealing diabetic ulcer left lateral middle back. 3. Diabetes mellitus. Plan: He has had 7 application of Theraskin total. Patient had a second opinion on options at plastic surgery at [facility] who recommended an autograft. Surgery 02/18/19 - 1. Surgical preparation right lateral middle back with excision non healing diabetic ulcer. 2. Reconstruction with STSG from right posterior flank (21 cm2) and placment Amnio Fill Placental Connective Tissue Powder (250 mg) and placement TAYLOR NPWT. 3. Surgical preparation left lateral middle back with excision nonhealing diabetic ulcer. 4. Reconstruction with STSG from left posterio flank (48 cm2) and placment of AmnioFill Placental Connective Tissue Powder (500mg) and placement of TAYLOR NPWT. Surgical cultures came back positive for Staphylococcus epidermidis and Staphylococcus epidermidis #2, and Corynebacterium amycolatum/xer. Stopped his Doxycycline and started him on Clindamycin. He is having some compromise of the skin graft. On the right he has 10% compromise and on the left 15% compromise. He would benefit from having HBO therapy to help prevent further compromise of his skin graft. He was approved for HBOT and is tolerating it well thus far. Chest x-ray and ECG normal. HgA1C 5.9 from 02/26/19. Stop TAYLOR NPWT due to hypergranulation and start calcium alginate dressing daily. He has some separation at 11-12 o'clock on the left middle back ulcer. A selective debridement was performed today. Will monitor this area closely. Followup one week Code Visit [id number]
--- NOTE | 2019-03-12 12:20 | PCM.HBO.PN ---
History of Present Illness Date of Service: 03/12/19 Presenting 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: Nonhealing diabetic ulcers left lateral middle back and right lateral middle back. BILL JACQUES is a 58 year old currently undergoing hyperbaric oxygen therapy for Nonhealing diabetic ulcers left lateral middle back and right lateral middle back With graft compromise. Progress: Today represents the patient's 6th hyperbaric oxygen therapy session, of a planned total of 40 sessions. Tolerance of hyperbaric oxygen therapy: Hyperbaric oxygen therapy was administered today as per our facility's protocol. The patient tolerated hyperbaric oxygen therapy well without complaints or complications. Upon emergence from the hyperbaric oxygen chamber, the patient's vital signs remained stable. 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 Trigger finger, left ring finger (Chronic) Hypertension (Chronic) Neuroma (Chronic) Allergies/Adverse Reactions: Allergies No Known Allergies Allergy (Verified 02/21/19 08:44) Home Medications: Ambulatory Orders Medication Instructions Recorded albuterol sulfate HFA 90 2 puff INHALATION Q6H PRN 11/22/17 mcg/actuation aerosol inhaler Multivitamin with Minerals 1 ea PO DAILY 02/14/19 [Multiple Vitamin] Doxycycline [Vibramycin] 100 mg PO BID #28 cap 02/18/19 Lactobacillus Acidophilus/Fos 1 ea PO BID #30 tab 02/18/19 [Acidophilus Probiotic Tablet] Paternal Family History: Family History (Last Reviewed 02/21/19 @ 08:45 by Yeimy Li) Grandfather Cancer Father Prostate cancer Grandfather CVA (cerebral vascular accident) Family History: Cancer, - Lives: Spouse/ Significant Other Smoking Status: Unknown if ever smoked Tobacco Use: Non-smoker Alcohol: None Drugs: None Physical Exam Vital Signs Temp Pulse Resp BP Pulse Ox 98.0 F 80 18 133/69 H 97 03/11/19 13:24 03/11/19 13:24 03/11/19 13:24 03/11/19 13:24 02/15/19 00:54 General: Alert, Oriented x3, Cooperative HEENT: Atraumatic, TM's Clear Lungs: Clear to auscultation, Normal air movement Cardiovascular: Regular rate, Regular Rhythm Psych/Mental Status: Normal Affect, Appropriate, Alert and oriented to time, place, person, mood and affect Assessment/Plan Active Problems (Last Reviewed 02/21/19 @ 08:45 by Yeimy Li) Unspecified complication of skin graft (allograft) (autograft) (Acute) 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
[2019-03-12 15:50] VITALS: BP 112/72; BP 125/79; PULSE 75; PULSE 88; RESP 16; TEMP 36.7
[2019-03-13 10:12] VITALS: BP 118/80; BP 131/79; PULSE 69; PULSE 79; RESP 16; RESP 18; TEMP 36.3; TEMP 36.5
--- NOTE | 2019-03-13 11:19 | HBO.PN.PCM_ITS ---
History of Present Illness Date of Service: 03/13/19 Presenting 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: Nonhealing diabetic ulcers left lateral middle back and right lateral middle back. BILL JACQUES is a 58 year old currently undergoing hyperbaric oxygen therapy for Nonhealing diabetic ulcers left lateral middle back and right lateral middle back With graft compromise. Progress: Today represents the patient's 7th hyperbaric oxygen therapy session, of a planned total of 40 sessions. Tolerance of hyperbaric oxygen therapy: Hyperbaric oxygen therapy was administered today as per our facility's protocol. The patient tolerated hyperbaric oxygen therapy well without complaints or complications. Upon emergence from the hyperbaric oxygen chamber, the patient's vital signs remained stable. 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 c) Nonhealing ulcers right lateral middle back and left lateral middle back Nonhealing surgical wound (Chronic) right lateral middle back and left lateral middle back after excision of nonhealing diabetic ulcers with skin flap reconstruction Type 2 diabetes mellitus (Chronic) Trigger finger, left ring finger (Chronic) Hypertension (Chronic) Neuroma (Chronic) Allergies/Adverse Reactions: Allergies No Known Allergies Allergy (Verified 02/21/19 08:44) Home Medications: Ambulatory Orders Medication Instructions Recorded albuterol sulfate HFA 90 2 puff INHALATION Q6H PRN 11/22/17 mcg/actuation aerosol inhaler Multivitamin with Minerals 1 ea PO DAILY 02/14/19 [Multiple Vitamin] Doxycycline [Vibramycin] 100 mg PO BID #28 cap 02/18/19 Lactobacillus Acidophilus/Fos 1 ea PO BID #30 tab 02/18/19 [Acidophilus Probiotic Tablet] Paternal Family History: Family History (Last Reviewed 02/21/19 @ 08:45 by Yeimy Li) Grandfather Cancer Father Prostate cancer Grandfather CVA (cerebral vascular accident) Family History: Cancer, - Lives: Spouse/ Significant Other Smoking Status: Unknown if ever smoked Tobacco Use: Non-smoker Alcohol: None Drugs: None Physical Exam Vital Signs Temp Pulse Resp BP Pulse Ox 97.7 F L 79 18 118/80 97 03/13/19 10:12 03/13/19 10:12 03/13/19 10:12 03/13/19 10:12 02/15/19 00:54 Assessment/Plan Active Problems (Last Reviewed 02/21/19 @ 08:45 by Yeimy Li) Unspecified complication of skin graft (allograft) (autograft) (Acute) 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
== END 2019-03-16 23:59 ==
LOC: WC 10:00
PROVIDERS: Family Provider Family Medicine; PCP Family Medicine; Visit Provider Nurse Practitioner Family
DX: E11.622 Type 2 diabetes mellitus with other skin ulcer (principal); L98.422 Non-pressure chronic ulcer of back with fat layer exposed; T86.821 Skin graft (allograft) (autograft) failure
CPT/HCPCS: 97597; 97607; 99183; 99212; G0277; G0463

== ENCOUNTER → 2019-03-19 13:00 | Outpatient (CLI) | payer OTHER, SELFPAY ==
[2019-03-18 10:37] VITALS: BMI 28.4
[2019-03-19 14:04] LABS: ALB/GLOB Ratio 1.1 RATIO (0.9-2.4); AST(SGOT) 18 U/L (15-37); Alanine Aminotransfer ALT/SGPT 36 U/L (16-61); Albumin, Serum 3.9 g/dL (3.2-5.0); Alkaline Phosphatase 22 U/L (45-117); Anion Gap 4 (5-15); BUN 27 mg/dL (7-18); BUN/Creat Ratio 24.3 RATIO (10-20); Calcium,Total 9.6 mg/dL (8.5-10.1); Chloride 104 mmol/L (98-107); Creatinine, Serum 1.11 mg/dL (0.70-1.30); EST Glomerular Filtration Rate 72 mL/min (>60); Est Glom Filt Rate - Afr Amer 87 mL/min (>60); Globulin 3.7 g/dL (2.2-4.2); Glucose 85 mg/dL (74-106); Protein, Total 7.6 g/dL (6.4-8.2); Sodium Level 138 mmol/L (136-145)
== END ==
PROVIDERS: Family Provider Family Medicine; PCP Family Medicine; Referring Provider Nurse Practitioner Family; Visit Provider Nurse Practitioner Family
DX: L98.492 Non-pressure chronic ulcer of skin of other sites with fat layer exposed (principal); T81.89XA Other complications of procedures, not elsewhere classified, initial encounter
CPT/HCPCS: 36415; 80053

== ENCOUNTER 2019-04-16 08:00 | Outpatient (RCR) | payer OTHER, SELFPAY ==
[2019-03-11 11:09] VITALS: BMI 28.4
[2019-03-17 00:43] VITALS: BP 131/79; PULSE 69; RESP 16; TEMP 36.3; O2SAT 97
[2019-03-18 10:37] VITALS: BP 118/77; PULSE 77; RESP 18; TEMP 36.2; BMI 28.4
[2019-03-18 12:51] VITALS: BP 116/70; BP 136/78; PULSE 60; PULSE 75; RESP 16; RESP 18; TEMP 36.3
--- NOTE | 2019-03-18 13:05 | PCM.HBO.PN ---
History of Present Illness Date of Service: 03/18/19 Presenting 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: Nonhealing diabetic ulcers left lateral middle back and right lateral middle back. BILL JACQUES is a 58 year old currently undergoing hyperbaric oxygen therapy for Nonhealing diabetic ulcers left lateral middle back and right lateral middle back with graft compromise. Progress: Today represent the patient's eighth hyperbaric oxygen therapy session, of a total planned 40 sessions. Tolerance of hyperbaric oxygen therapy: Hyperbaric oxygen therapy was administered today as per our facility's protocol. The patient tolerated hyperbaric oxygen therapy well, without complaints. He does appear to have some barotrauma to the right tympanic membrane posttreatment. He did admit to feeling some discomfort in the right ear on descent. Patient will be referred to research and development researcher. I would suggest that the patient hold off on any additional hyperbaric oxygen treatments until cleared by research and development researcher. Vital signs were stable. Patient was just charged home. 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 Trigger finger, left ring finger (Chronic) Hypertension (Chronic) Neuroma (Chronic) Allergies/Adverse Reactions: Allergies No Known Allergies Allergy (Verified 02/21/19 08:44) Home Medications: Ambulatory Orders Medication Instructions Recorded albuterol sulfate HFA 90 2 puff INHALATION Q6H PRN 11/22/17 mcg/actuation aerosol inhaler Multivitamin with Minerals 1 ea PO DAILY 02/14/19 [Multiple Vitamin] Doxycycline [Vibramycin] 100 mg PO BID #28 cap 02/18/19 Lactobacillus Acidophilus/Fos 1 ea PO BID #30 tab 02/18/19 [Acidophilus Probiotic Tablet] doxycycline monohydrate 100 mg 100 mg PO BID 30 Days #60 tab 03/13/19 tablet fluconazole 200 mg tablet 400 mg PO DAILY 30 Days #60 tab 03/13/19 Paternal Family History: Family History (Last Reviewed 02/21/19 @ 08:45 by Yeimy Li) Grandfather Cancer Father Prostate cancer Grandfather CVA (cerebral vascular accident) Family History: Cancer, - Smoking Status: Unknown if ever smoked Tobacco Use: Non-smoker Physical Exam Vital Signs Temp Pulse Resp BP Pulse Ox 97.3 F L 75 18 116/70 97 03/18/19 12:51 03/18/19 12:51 03/18/19 12:51 03/18/19 12:51 03/17/19 00:43 General: Alert, Oriented x3, Cooperative, No apparent distress HEENT: Atraumatic, TM's Clear Lungs: Clear to auscultation, Normal air movement Cardiovascular: Regular rate, Regular Rhythm Psych/Mental Status: Normal Affect, Appropriate, Alert and oriented to time, place, person, mood and affect Assessment/Plan Sending for research and development researcher evaluation for possible right tympanic membrane barotrauma. Further treatment is on hold until cleared by ENT.
--- NOTE | 2019-03-18 13:40 | PN.PCM_ITS ---
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 History of Wound: Surgery 12/25/18 - 1. Surgical preparation left lateral middle back with excisional debridement nonhealing diabetic ulcer and reconstruction with placement of Thera-skin allograft (56 cm2) and AmnioFill Placental Connective Tissue Powder (500 mg) and placement of TAYLOR NPWT. 2. Surgical preparation right lateral middle back with excisional debridement nonhealing diabetic ulcer and reconstruction with placement of Thera-skin allograft (15 cm2) and AmnioFill Placental Connective Tissue Powder (250 mg) and placement of TAYLOR NPWT. Had 7 placements of Theraskin. Operative culture - MRSE in the left lateral middle back ulcer and the right lateral middle back ulcer. Patient is diabetic and his recent HgbA1c was 5.8 from 10/23/18. Surgery 02/18/19 - 1. Surgical preparation right lateral middle back with excision non healing diabetic ulcer. 2. Reconstruction with STSG from right posterior flank (21 cm2) and placment Amnio Fill Placental Connective Tissue Powder (250 mg) and placement TAYLOR NPWT. 3. Surgical preparation left lateral middle back with excision nonhealing diabetic ulcer. 4. Reconstruction with STSG from left posterio flank (48 cm2) and placment of AmnioFill Placental Connective Tissue Powder (500mg) and placement of TAYLOR NPWT. Surgical cultures came back positive for Staphylococcus epidermidis and Staphylococcus epidermidis #2, and Cor ynebacterium amycolatum/xer. Stopped his Doxycycline. Renewed his Clindamycin. He was started on Diflucan for positive surgical fungal culture for Salma albican. He has been approved for HBOT because of the compromise of his grafts he is tolerating it well. Wound care- daily calcium alginate dressings. Today he denies fever. His appetite is ok. Progress of Wound: Improved - Physical Exam Vital Signs Temp Pulse Resp BP Pulse Ox 97.3 F L 75 18 116/70 97 03/18/19 12:51 03/18/19 12:51 03/18/19 12:51 03/18/19 12:51 03/17/19 00:43 General: Alert, Oriented x3, Cooperative HEENT: Atraumatic Oral: Moist Mucosa Lungs: Normal air movement Cardiovascular: Regular rate Abdomen: Soft Extremities: Capillary Refill Less than 3 Seconds Skin: Ulcer/ Wound - left middle back and right middle back ulcers are both are showing improvement with HBOT Wound Measurements and Assessment WC - Nurse 1 - General Ulcer Measurement Start: 03/18/19 10:37 Freq: Status: Active Protocol: Activity Type Activity Date Activity User E-Sign Co-Sign Detail Recorded Client Recorded Date Recorded By Document 03/18/19 10:37 DL [id number] 03/18/19 10:45 DL 03/18/19 10:37 Wound Center Nurse 1 [Ulcer Assessment] 6. L lumbar back -Current Size (cm) - Length 9 -Current Size (cm) - Width 4.8 -Current Size (cm) - Depth 0.2 -Total Square Cm 43.2 -Photo Taken No -Exudate Amt Small -Exudate Type Serosanguineous -Wound Margin Distinct, Outline Attached -Granulation Amt Medium (34-66%) -Granulation Quality Red -Necrosis Amt Medium (34-66%) -Necrotic Tissue Type Adherent Slough -Structure Exposed N/A -Texture (Mayra-wound Skin Appearance) Scarring -Moisture (Mayra-wound Skin Appearance No Abnormality ) -Color (Mayra-wound Skin Appearance) No Abnormality -Temperature (Mayra-wound Skin No Abnormality Appearance) (Pt Warm) -Tenderness on Palpation (Mayra-wound No Skin Appearance) -Ulcer Cleansing Wound Cleanser -Foul Odor after Cleansing No -Anesthetic Used 4% Lidocaine Solution 5. R scapula -Current Size (cm) - Length 5.5 -Current Size (cm) - Width 1 -Current Size (cm) - Depth 0.1 -Total Square Cm 5.5 -Photo Taken No -Exudate Amt Small -Exudate Type Serosanguineous -Wound Margin Distinct, Outline Attached -Granulation Amt Medium (34-66%) -Granulation Quality Red -Necrosis Amt Medium (34-66%) -Necrotic Tissue Type Adherent Slough -Structure Exposed N/A -Texture (Mayra-wound Skin Appearance) Scarring -Moisture (Mayra-wound Skin Appearance No Abnormality ) -Color (Mayra-wound Skin Appearance) No Abnormality -Temperature (Mayra-wound Skin No Abnormality Appearance) (Pt Warm) -Tenderness on Palpation (Mayra-wound No Skin Appearance) -Ulcer Cleansing Rinsed/ Irrigated with Saline -Foul Odor after Cleansing No -Anesthetic Used 4% Lidocaine Solution WC - Nurse 2 - General Ulcer CM Notes Start: 03/18/19 10:37 Freq: Status: Active Protocol: Activity Type Activity Date Activity User E-Sign Co-Sign Detail Recorded Client Recorded Date Recorded By Document 03/18/19 11:10 [email or web address] [id number] 03/18/19 11:20 [facility] 03/18/19 11:10 Wound Center Nurse 2 [Procedure/Treatment] 6. L lumbar back -Time 11:10 -Correct Patient Yes -Correct Side, Site, Position Yes -Correct Procedure Yes -Procedure Performed Yes -Type of Procedure Debridement -Clinical Debridement Selective -Post Debridement Size (cm) - Length 7 -Post Debridement Size (cm) - Width 7.5 -Post Debridement Size (cm) - Depth 0.3 -Total Square Cm 52.5 -Wound/Ulcer Outcome Not Healed -Ulcer Cleansing Rinsed/ Irrigated with Saline -Foul Odor after Cleansing No -Bioengineered Tissue No -Bleeding Controlled with Pressure -Offloading No -Treatment Response Procedure Tolerated Well 5. R scapula -Time 11:10 -Correct Patient Yes -Correct Side, Site, Position Yes -Correct Procedure Yes -Procedure Performed Yes -Type of Procedure Debridement -Clinical Debridement Selective -Post Debridement Size (cm) - Length 4.6 -Post Debridement Size (cm) - Width 4.5 -Post Debridement Size (cm) - Depth 0.3 -Total Square Cm 20.70 -Wound/Ulcer Outcome Not Healed -Ulcer Cleansing Rinsed/ Irrigated with Saline -Foul Odor after Cleansing No -Bioengineered Tissue No -Bleeding Controlled with Pressure -Offloading No -Treatment Response Procedure Tolerated Well [See Physician Procedure note for Specifics] Pain Scale: 0-10 Numeric [Pain] -Is Patient Pain Free? Yes Musculoskeletal: No Muscle Wasting Psych/Mental Status: Normal Affect, Appropriate Debridement Note Post-Debridement Measurements/Treatment WC - Nurse 2 - General Ulcer CM Notes Start: 03/18/19 10:37 Freq: Status: Active Protocol: Activity Type Activity Date Activity User E-Sign Co-Sign Detail Recorded Client Recorded Date Recorded By Document 03/18/19 11:10 [id number] 03/18/19 11:20 [facility] 03/18/19 11:10 Wound Center Nurse 2 6. L lumbar back -Time 11:10 -Correct Patient Yes -Correct Side, Site, Position Yes -Correct Procedure Yes -Procedure Performed Yes -Type of Procedure Debridement -Clinical Debridement Selective -Post Debridement Size (cm) - Length 7 -Post Debridement Size (cm) - Width 7.5 -Post Debridement Size (cm) - Depth 0.3 -Total Square Cm 52.5 -Wound/Ulcer Outcome Not Healed -Ulcer Cleansing Rinsed/ Irrigated with Saline -Foul Odor after Cleansing No -Bioengineered Tissue No -Bleeding Controlled with Pressure -Offloading No -Treatment Response Procedure Tolerated Well 5. R scapula -Time 11:10 -Correct Patient Yes -Correct Side, Site, Position Yes -Correct Procedure Yes -Procedure Performed Yes -Type of Procedure Debridement -Clinical Debridement Selective -Post Debridement Size (cm) - Length 4.6 -Post Debridement Size (cm) - Width 4.5 -Post Debridement Size (cm) - Depth 0.3 -Total Square Cm 20.70 -Wound/Ulcer Outcome Not Healed -Ulcer Cleansing Rinsed/ Irrigated with Saline -Foul Odor after Cleansing No -Bioengineered Tissue No -Bleeding Controlled with Pressure -Offloading No -Treatment Response Procedure Tolerated Well Pain Scale: 0-10 Numeric Is Patient Pain Free? Yes Wound debrided: middle back ulcer Laterality: Right Type of Debridement: Selective debridement Anesthesia Used: 5% Lidocaine Gel Depth: Down to and including healthy tissue, in the subcutaneous layer Percentage of wound debrided: 100 Instrument Used: 5mm curette Tissue Removed: subcutaneous tissue and slough Severity: Fat Layer Exposed Amount of bleeding with debridement: Mild Bleeding Controlled with: Pressure Patient tolerated procedure well - Additional Wound Wound debrided: middle back ulcer Laterality: Left Type of Debridement: Selective debridement Anesthesia Used: 5% Lidocaine Gel Depth: Down to and including healthy tissue, in the subcutaneous layer Percentage of wound debrided: 100 Instrument Used: 5mm curette Tissue Removed: subcutaneous tissue and slough Severity: Fat Layer Exposed Amount of bleeding with debridement: Mild Bleeding Controlled with: Pressure Patient tolerated procedure: Patient tolerated procedure well Assessment/Plan Active Problems (Last Updated 03/22/19 @ 16:03 by Terra Conteh DO) 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 Assessment: 1. Nonhealing diabetic ulcer right lateral middle back. 2. Nonhealing diabetic ulcer left lateral middle back. 3. Diabetes mellitus. Plan: He has had 7 application of Theraskin total. Patient had a second opinion on options at plastic surgery at [facility] who recommended an autograft. Surgery 02/18/19 - 1. Surgical preparation right lateral middle back with excision non healing diabetic ulcer. 2. Reconstruction with STSG from right posterior flank (21 cm2) and placment Amnio Fill Placental Connective Tissue Powder (250 mg) and placement TAYLOR NPWT. 3. Surgical preparation left lateral middle back with excision nonhealing diabetic ulcer. 4. Reconstruction with STSG from left posterio flank (48 cm2) and placment of AmnioFill Placental Connective Tissue Powder (500mg) and placement of TAYLOR NPWT. Surgical cultures came back positive for Staphylococcus epidermidis and Staphylococcus epidermidis #2, and Corynebacterium amycolatum/xer. Stopped his Doxycycline and started him on Clindamycin which was refilled this week. Surgical culture also came back positive for Salma albicans which he was started on diflucan. He is having some compromise of the skin graft. On the right he has 10% compromise and on the left 15% compromise. He would benefit from having HBO therapy to help prevent further compromise of his skin graft. He was approved for HBOT and is tolerating it well thus far. Chest x-ray and ECG normal. HgA1C 5.9 from 02/26/19. Stop TAYLOR NPWT due to hypergranulation and start calcium alginate dressing daily. He has some separation at 11-12 o'clock on the left middle back ulcer which has shown improvement. A selective debridement was performed today. Will monitor this area closely. Followup one week Code Visit [id number]
--- NOTE | 2019-03-20 13:10 | PCM.HBO.PN ---
History of Present Illness Date of Service: 03/20/19 Presenting 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: Nonhealing diabetic ulcers left lateral middle back and right lateral middle back. BILL JACQUES is a 58 year old currently undergoing hyperbaric oxygen therapy for Nonhealing diabetic ulcers left lateral middle back and right lateral middle back with graft compromise. Progress: Today represent the patient's eighth hyperbaric oxygen therapy session, of a total planned 40 sessions. Tolerance of hyperbaric oxygen therapy: Hyperbaric oxygen therapy was administered today as per our facility's protocol. Status post placement of eustachian tube to the right tympanic membrane. The patient tolerated hyperbaric oxygen therapy well, without complaints. No signs of complications. Vital signs were stable. He was discharged in good condition. 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 Trigger finger, left ring finger (Chronic) Hypertension (Chronic) Neuroma (Chronic) Allergies/Adverse Reactions: Allergies No Known Allergies Allergy (Verified 02/21/19 08:44) Home Medications: Ambulatory Orders Medication Instructions Recorded albuterol sulfate HFA 90 2 puff INHALATION Q6H PRN 11/22/17 mcg/actuation aerosol inhaler Multivitamin with Minerals 1 ea PO DAILY 02/14/19 [Multiple Vitamin] Doxycycline [Vibramycin] 100 mg PO BID #28 cap 02/18/19 Lactobacillus Acidophilus/Fos 1 ea PO BID #30 tab 02/18/19 [Acidophilus Probiotic Tablet] doxycycline monohydrate 100 mg 100 mg PO BID 30 Days #60 tab 03/13/19 tablet fluconazole 200 mg tablet 400 mg PO DAILY 30 Days #60 tab 03/13/19 Paternal Family History: Family History (Last Reviewed 02/21/19 @ 08:45 by Yeimy Li) Grandfather Cancer Father Prostate cancer Grandfather CVA (cerebral vascular accident) Family History: Cancer, - Smoking Status: Unknown if ever smoked Tobacco Use: Non-smoker Physical Exam Vital Signs Temp Pulse Resp BP Pulse Ox 97.3 F L 75 18 116/70 97 03/18/19 12:51 03/18/19 12:51 03/18/19 12:51 03/18/19 12:51 03/17/19 00:43 General: Alert, Oriented x3, Cooperative HEENT: Atraumatic, TM's Clear Lungs: Clear to auscultation, Normal air movement Cardiovascular: Regular rate, Regular Rhythm Psych/Mental Status: Normal Affect, Appropriate, Alert and oriented to time, place, person, mood and affect Assessment/Plan The patient appears to be tolerating hyperbaric oxygen therapy well, which will be continued as per his medical plan.
[2019-03-20 14:23] VITALS: BP 121/68; BP 129/80; PULSE 84; PULSE 88; RESP 16; RESP 18; TEMP 36.1; TEMP 36.4
[2019-03-21 10:14] VITALS: BP 123/79; BP 130/75; PULSE 63; PULSE 80; RESP 16; RESP 18; TEMP 36.1; TEMP 36.3
--- NOTE | 2019-03-21 10:52 | PCM.HBO.PN ---
History of Present Illness Date of Service: 03/21/19 Presenting 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: Nonhealing diabetic ulcers left lateral middle back and right lateral middle back. BILL JACQUES is a 58 year old currently undergoing hyperbaric oxygen therapy for Nonhealing diabetic ulcers left lateral middle back and right lateral middle back with graft compromise. Progress: Today represent the patient's 10th hyperbaric oxygen therapy session, of a total planned 40 sessions. Tolerance of hyperbaric oxygen therapy: Hyperbaric oxygen therapy was administered today as per our facility's protocol. Status post placement of eustachian tube to the right tympanic membrane. The patient tolerated hyperbaric oxygen therapy well, without complaints. No signs of complications. Vital signs were stable. He was discharged in good condition. 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 Trigger finger, left ring finger (Chronic) Hypertension (Chronic) Neuroma (Chronic) Allergies/Adverse Reactions: Allergies No Known Allergies Allergy (Verified 02/21/19 08:44) Home Medications: Ambulatory Orders Medication Instructions Recorded albuterol sulfate HFA 90 2 puff INHALATION Q6H PRN 11/22/17 mcg/actuation aerosol inhaler Multivitamin with Minerals 1 ea PO DAILY 02/14/19 [Multiple Vitamin] Doxycycline [Vibramycin] 100 mg PO BID #28 cap 02/18/19 Lactobacillus Acidophilus/Fos 1 ea PO BID #30 tab 02/18/19 [Acidophilus Probiotic Tablet] doxycycline monohydrate 100 mg 100 mg PO BID 30 Days #60 tab 03/13/19 tablet fluconazole 200 mg tablet 400 mg PO DAILY 30 Days #60 tab 03/13/19 Paternal Family History: Family History (Last Reviewed 02/21/19 @ 08:45 by Yeimy Li) Grandfather Cancer Father Prostate cancer Grandfather CVA (cerebral vascular accident) Family History: Cancer, - Smoking Status: Unknown if ever smoked Tobacco Use: Non-smoker Physical Exam Vital Signs Temp Pulse Resp BP Pulse Ox 97.4 F L 80 18 123/79 H 97 03/21/19 10:14 03/21/19 10:14 03/21/19 10:14 03/21/19 10:14 03/17/19 00:43 General: Alert, Oriented x3, Cooperative, No apparent distress HEENT: Atraumatic, Normocephalic Lungs: Normal air movement Cardiovascular: Regular rate Psych/Mental Status: Normal Affect Assessment/Plan The patient appears to be tolerating hyperbaric oxygen therapy well, which will be continued as per his medical plan.
[2019-03-22 10:19] VITALS: BP 129/69; BP 137/69; PULSE 67; PULSE 73; RESP 16; TEMP 36.2
--- NOTE | 2019-03-22 16:00 | PCM.HBO.PN ---
History of Present Illness Date of Service: 03/22/19 Presenting 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: Nonhealing diabetic ulcers left lateral middle back and right lateral middle back. BILL JACQUES is a 58 year old currently undergoing hyperbaric oxygen therapy for Nonhealing diabetic ulcers left lateral middle back and right lateral middle back with graft compromise. Progress: Today represent the patient's 11th hyperbaric oxygen therapy session, of a total planned 40 sessions. Tolerance of hyperbaric oxygen therapy: Hyperbaric oxygen therapy was administered today as per our facility's protocol. Status post placement of eustachian tube to the right tympanic membrane on Monday03/19/19. The patient tolerated hyperbaric oxygen therapy well, without complaints. No signs of complications. Vital signs were stable. He was discharged in good condition. 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 Trigger finger, left ring finger (Chronic) Hypertension (Chronic) Neuroma (Chronic) Allergies/Adverse Reactions: Allergies No Known Allergies Allergy (Verified 02/21/19 08:44) Home Medications: Ambulatory Orders Medication Instructions Recorded albuterol sulfate HFA 90 2 puff INHALATION Q6H PRN 11/22/17 mcg/actuation aerosol inhaler Multivitamin with Minerals 1 ea PO DAILY 02/14/19 [Multiple Vitamin] Doxycycline [Vibramycin] 100 mg PO BID #28 cap 02/18/19 Lactobacillus Acidophilus/Fos 1 ea PO BID #30 tab 02/18/19 [Acidophilus Probiotic Tablet] doxycycline monohydrate 100 mg 100 mg PO BID 30 Days #60 tab 03/13/19 tablet fluconazole 200 mg tablet 400 mg PO DAILY 30 Days #60 tab 03/13/19 Paternal Family History: Family History (Last Reviewed 02/21/19 @ 08:45 by Yeimy Li) Grandfather Cancer Father Prostate cancer Grandfather CVA (cerebral vascular accident) Family History: Cancer, - Smoking Status: Unknown if ever smoked Tobacco Use: Non-smoker Physical Exam Vital Signs Temp Pulse Resp BP Pulse Ox 97.2 F L 73 16 129/69 H 97 03/22/19 10:19 03/22/19 10:19 03/22/19 10:19 03/22/19 10:03/17/19 00:43 General: Alert, Oriented x3, Cooperative, No apparent distress Psych/Mental Status: Normal Affect, Appropriate Assessment/Plan Active Problems (Last Reviewed 02/21/19 @ 08:45 by Yeimy Li) Unspecified complication of skin graft (allograft) (autograft) (Acute) Skin graft (allograft) (autograft) failure (Acute) Diabetes (Chronic) 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
[2019-03-25 10:49] VITALS: BP 135/70; PULSE 86; RESP 16; TEMP 36.8; BMI 28.4
[2019-03-25 12:22] VITALS: BP 135/71; BP 148/79; PULSE 78; PULSE 86; RESP 16; RESP 18; TEMP 36.4; TEMP 36.8
--- NOTE | 2019-03-25 13:25 | PCM.HBO.PN ---
History of Present Illness Date of Service: 03/25/19 Presenting 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: Nonhealing diabetic ulcers left lateral middle back and right lateral middle back. BILL JACQUES is a 58 year old currently undergoing hyperbaric oxygen therapy for Nonhealing diabetic ulcers left lateral middle back and right lateral middle back with graft compromise. Progress: Today represent the patient's 12th hyperbaric oxygen therapy session, of a total planned 40 sessions. Tolerance of hyperbaric oxygen therapy: Hyperbaric oxygen therapy was administered today as per our facility's protocol. Status post placement of eustachian tube to the right tympanic membrane on Monday03/19/19. The patient tolerated hyperbaric oxygen therapy well, without complaints. No signs of complications. Vital signs were stable. He was discharged in good condition. 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 Trigger finger, left ring finger (Chronic) Hypertension (Chronic) Neuroma (Chronic) Allergies/Adverse Reactions: Allergies No Known Allergies Allergy (Verified 02/21/19 08:44) Home Medications: Ambulatory Orders Medication Instructions Recorded albuterol sulfate HFA 90 2 puff INHALATION Q6H PRN 11/22/17 mcg/actuation aerosol inhaler Multivitamin with Minerals 1 ea PO DAILY 02/14/19 [Multiple Vitamin] Doxycycline [Vibramycin] 100 mg PO BID #28 cap 02/18/19 Lactobacillus Acidophilus/Fos 1 ea PO BID #30 tab 02/18/19 [Acidophilus Probiotic Tablet] doxycycline monohydrate 100 mg 100 mg PO BID 30 Days #60 tab 03/13/19 tablet fluconazole 200 mg tablet 400 mg PO DAILY 30 Days #60 tab 03/13/19 Paternal Family History: Family History (Last Reviewed 02/21/19 @ 08:45 by Yeimy Li) Grandfather Cancer Father Prostate cancer Grandfather CVA (cerebral vascular accident) Family History: Cancer, - Smoking Status: Unknown if ever smoked Tobacco Use: Non-smoker Physical Exam Vital Signs Temp Pulse Resp BP Pulse Ox 98.2 F 86 16 135/71 H 97 03/25/19 12:22 03/25/19 12:22 03/25/19 12:22 03/25/19 12:22 03/17/19 00:43 General: Alert, Oriented x3, Cooperative, No apparent distress HEENT: Atraumatic, TM's Clear Lungs: Clear to auscultation, Normal air movement Cardiovascular: Regular rate, Regular Rhythm Psych/Mental Status: Normal Affect, Appropriate, Alert and oriented to time, place, person, mood and affect Assessment/Plan Active Problems (Last Updated 03/22/19 @ 16:03 by Terra Conteh DO) 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
--- NOTE | 2019-03-25 14:47 | PN.PCM_ITS ---
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 Current Visit: Yes Code(s): T86.829 - Unspecified complication of skin graft (allograft) (autograft) (3) Skin graft (allograft) (autograft) failure Status: Chronic Current Visit: Yes Code(s): T86.821 - Skin graft (allograft) (autograft) failure (4) Type 2 diabetes mellitus Status: Chronic Current Visit: Yes Qualifiers: Code(s): E11.9 - Type 2 diabetes mellitus without complications Type of Wound Date of Service: 03/25/19 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: Nonhealing diabetic ulcers left lateral middle back and right lateral middle back. History of Wound: Surgery 12/25/18 - 1. Surgical preparation left lateral middle back with excisional debridement nonhealing diabetic ulcer and reconstruction with placement of Thera-skin allograft (56 cm2) and AmnioFill Placental Connective Tissue Powder (500 mg) and placement of TAYLOR NPWT. 2. Surgical preparation right lateral middle back with excisional debridement nonhealing diabetic ulcer and reconstruction with placement of Thera-skin allograft (15 cm2) and AmnioFill Placental Connective Tissue Powder (250 mg) and placement of TAYLOR NPWT. Had 7 placements of Theraskin. Operative culture - MRSE in the left lateral middle back ulcer and the right lateral middle back ulcer. Patient is diabetic and his recent HgbA1c was 5.8 from 10/23/18. Surgery 02/18/19 - 1. Surgical preparation right lateral middle back with excision non healing diabetic ulcer. 2. Reconstruction with STSG from right posterior flank (21 cm2) and placment Amnio Fill Placental Connective Tissue Powder (250 mg) and placement TAYLOR NPWT. 3. Surgical preparation left lateral middle back with excision nonhealing diabetic ulcer. 4. Reconstruction with STSG from left posterio flank (48 cm2) and placment of AmnioFill Placental Connective Tissue Powder (500mg) and placement of TAYLOR NPWT. Surgical cultures came back positive for Staphylococcus epidermidis and Staphylococcus epidermidis #2, and Cor ynebacterium amycolatum/xer. Stopped his Doxycycline. Renewed his Clindamycin. He was started on Diflucan for positive surgical fungal culture for Salma albican. He has been approved for HBOT because of the compromise of his grafts he is tolerating it well. Wound care- daily calcium alginate dressings. Today he denies fever. His appetite is ok. Progress of Wound: Improved - Physical Exam Vital Signs Temp Pulse Resp BP Pulse Ox 98.2 F 86 16 135/71 H 97 03/25/19 12:22 03/25/19 12:22 03/25/19 12:22 03/25/19 12:22 03/17/19 00:43 General: Alert, Oriented x3, Cooperative HEENT: Atraumatic Oral: Moist Mucosa Lungs: Normal air movement Cardiovascular: Regular rate Extremities: Capillary Refill Less than 3 Seconds Skin: Ulcer/ Wound - left middle back ulcer cluster and right middle back ulcer cluster. Skin graft is healing well with the help of the HBOT therapy. There has been an improvement in the ulcers. Wound Measurements and Assessment WC - Nurse 1 - General Ulcer Measurement Start: 03/18/19 10:37 Freq: Status: Active Protocol: Activity Type Activity Date Activity User E-Sign Co-Sign Detail Recorded Client Recorded Date Recorded By Document 03/25/19 10:49 [facility] [id number] 03/25/19 10:57 [facility] 03/25/19 10:49 Wound Center Nurse 1 [Ulcer Assessment] 6. L lumbar back -Combined with other wound No -Current Size (cm) - Length 6.9 -Current Size (cm) - Width 5.9 -Current Size (cm) - Depth 0.1 -Total Square Cm 40.71 -Photo Taken No -Epithelialization Medium 34-66% -Tunneling No -Undermining/Tunneling No -Circular Undermining No -Exudate Amt Small -Exudate Type Serosanguineous -Wound Margin Distinct, Outline Attached -Granulation Amt Medium (34-66%) -Granulation Quality Red -Slough/Fibrin Yes -Necrosis Amt Medium (34-66%) -Necrotic Tissue Type Adherent Slough -Texture (Mayra-wound Skin Appearance) Assessed, Scarring -Moisture (Mayra-wound Skin Appearance Assessed ) -Color (Mayra-wound Skin Appearance) Assessed -Temperature (Mayra-wound Skin No Abnormality Appearance) (Pt Warm) -Tenderness on Palpation (Mayra-wound No Skin Appearance) -Ulcer Cleansing Rinsed/ Irrigated with Saline -Foul Odor after Cleansing No -Anesthetic Used 5% Lidocaine Gel 5. R scapula -Combined with other wound No -Current Size (cm) - Length 4.5 -Current Size (cm) - Width 3.4 -Current Size (cm) - Depth 0.3 -Total Square Cm 15.30 -Photo Taken No -Epithelialization Small 1-33% -Tunneling No -Undermining/Tunneling No -Circular Undermining No -Exudate Amt Small -Exudate Type Serosanguineous -Wound Margin Distinct, Outline Attached -Granulation Amt Small (1-33%) -Granulation Quality Red -Slough/Fibrin Yes -Necrosis Amt Medium (34-66%) -Necrotic Tissue Type Adherent Slough -Texture (Mayra-wound Skin Appearance) Assessed -Moisture (Mayra-wound Skin Appearance Assessed ) -Color (Mayra-wound Skin Appearance) Assessed -Temperature (Mayra-wound Skin No Abnormality Appearance) (Pt Warm) -Tenderness on Palpation (Mayra-wound No Skin Appearance) -Ulcer Cleansing Rinsed/ Irrigated with Saline -Foul Odor after Cleansing No -Anesthetic Used 5% Lidocaine Gel WC - Nurse 2 - General Ulcer CM Notes Start: 03/18/19 10:37 Freq: Status: Active Protocol: Activity Type Activity Date Activity User E-Sign Co-Sign Detail Recorded Client Recorded Date Recorded By Document 03/25/19 11:09 [facility] [id number] 03/25/19 11:23 [facility] 03/25/19 11:09 Wound Center Nurse 2 [Procedure/Treatment] 6. L lumbar back -Time 11:12 -Correct Patient Yes -Correct Side, Site, Position Yes -Correct Procedure Yes -Procedure Performed Yes -Type of Procedure Debridement -Clinical Debridement Selective -Post Debridement Size (cm) - Length 8.5 -Post Debridement Size (cm) - Width 5 -Post Debridement Size (cm) - Depth 0.2 -Total Square Cm 42.5 -Wound/Ulcer Outcome Not Healed -Ulcer Cleansing Rinsed/ Irrigated with Saline -Foul Odor after Cleansing No -Bioengineered Tissue No -Bleeding Controlled with Pressure -Offloading No -Treatment Response Procedure Tolerated Well 5. R scapula -Time 11:12 -Correct Patient Yes -Correct Side, Site, Position Yes -Correct Procedure Yes -Procedure Performed Yes -Type of Procedure Debridement -Clinical Debridement Selective -Post Debridement Size (cm) - Length 5.7 -Post Debridement Size (cm) - Width 3.0 -Post Debridement Size (cm) - Depth 0.4 -Total Square Cm 17.10 -Wound/Ulcer Outcome Not Healed -Ulcer Cleansing Rinsed/ Irrigated with Saline -Foul Odor after Cleansing No -Bioengineered Tissue No -Bleeding Controlled with Pressure -Offloading No -Treatment Response Procedure Tolerated Well [See Physician Procedure note for Specifics] Pain Scale: 0-10 Numeric [Pain] -Is Patient Pain Free? Yes Musculoskeletal: No Muscle Wasting Neurological: Neuro grossly intact Psych/Mental Status: Normal Affect, Appropriate Debridement Note Post-Debridement Measurements/Treatment WC - Nurse 2 - General Ulcer CM Notes Start: 03/18/19 10:37 Freq: Status: Active Protocol: Activity Type Activity Date Activity User E-Sign Co-Sign Detail Recorded Client Recorded Date Recorded By Document 03/18/19 11:10 [id number] 03/18/19 11:20 Document 03/25/19 11:09 [id number] 03/25/19 11:23 03/18/19 03/25/19 11:10 11:09 Wound Center Nurse 2 6. L lumbar back -Time 11:10 11:12 -Correct Patient Yes Yes -Correct Side, Site, Position Yes Yes -Correct Procedure Yes Yes -Procedure Performed Yes Yes -Type of Procedure Debridement Debridement -Clinical Debridement Selective Selective -Post Debridement Size (cm) - Length 7 8.5 -Post Debridement Size (cm) - Width 7.5 5 -Post Debridement Size (cm) - Depth 0.3 0.2 -Total Square Cm 52.5 42.5 -Wound/Ulcer Outcome Not Healed Not Healed -Ulcer Cleansing Rinsed/ Rinsed/ Irrigated with Irrigated with Saline Saline -Foul Odor after Cleansing No No -Bioengineered Tissue No No -Bleeding Controlled with Pressure Pressure -Offloading No No -Treatment Response Procedure Procedure Tolerated Well Tolerated Well 5. R scapula -Time 11:10 11:12 -Correct Patient Yes Yes -Correct Side, Site, Position Yes Yes -Correct Procedure Yes Yes -Procedure Performed Yes Yes -Type of Procedure Debridement Debridement -Clinical Debridement Selective Selective -Post Debridement Size (cm) - Length 4.6 5.7 -Post Debridement Size (cm) - Width 4.5 3.0 -Post Debridement Size (cm) - Depth 0.3 0.4 -Total Square Cm 20.70 17.10 -Wound/Ulcer Outcome Not Healed Not Healed -Ulcer Cleansing Rinsed/ Rinsed/ Irrigated with Irrigated with Saline Saline -Foul Odor after Cleansing No No -Bioengineered Tissue No No -Bleeding Controlled with Pressure Pressure -Offloading No No -Treatment Response Procedure Procedure Tolerated Well Tolerated Well Pain Scale: 0-10 Numeric Is Patient Pain Free? Yes Yes Wound debrided: Middle back ulcer cluster Laterality: Left Type of Debridement: Selective debridement Anesthesia Used: 5% Lidocaine Gel Depth: Down to and including healthy tissue, in the subcutaneous layer Percentage of wound debrided: 40 Instrument Used: 5mm curette Tissue Removed: Subcutaneous tissues and slough Severity: Limited To Skin Breakdown Amount of bleeding with debridement: Mild Bleeding Controlled with: Pressure Patient tolerated procedure well - Additional Wound Wound debrided: Middle back ulcer cluster Laterality: Right Type of Debridement: Excisional debridement Anesthesia Used: 5% Lidocaine Gel Depth: Down to and including healthy tissue, in the subcutaneous layer Percentage of wound debrided: 40 Instrument Used: 3mm curette Tissue Removed: Subcutaneous tissue and slough Severity: Fat Layer Exposed Amount of bleeding with debridement: Mild Bleeding Controlled with: Pressure, Compression and gauze Patient tolerated procedure: Patient tolerated procedure well Assessment/Plan Active Problems (Last Updated 03/22/19 @ 16:03 by Terra Conteh DO) Unspecified complication of skin graft (allograft) (autograft) (Chronic) Skin graft (allograft) (autograft) failure (Chronic) Diabetes (Chronic) Non-pressure chronic ulcer of skin of other sites with fat layer exposed ( Chronic) Nonhealing ulcers right lateral middle back and left lateral middle back Nonhealing surgical wound (Chronic) right lateral middle back and left lateral middle back after excision of nonhealing diabetic ulcers with skin flap reconstruction Type 2 diabetes mellitus (Chronic) Assessment: 1. Nonhealing diabetic ulcer right lateral middle back. 2. Nonhealing diabetic ulcer left lateral middle back. 3. Diabetes mellitus. Plan: He has had 7 application of Theraskin total. Patient had a second opinion on options at plastic surgery at [facility] who recommended an autograft. Surgery 02/18/19 - 1. Surgical preparation right lateral middle back with excision non healing diabetic ulcer. 2. Reconstruction with STSG from right posterior flank (21 cm2) and placment Amnio Fill Placental Connective Tissue Powder (250 mg) and placement TAYLOR NPWT. 3. Surgical preparation left lateral middle back with excision nonhealing diabetic ulcer. 4. Reconstruction with STSG from left posterio flank (48 cm2) and placment of AmnioFill Placental Connective Tissue Powder (500mg) and placement of TAYLOR NPWT. Surgical cultures came back positive for Staphylococcus epidermidis and Staphylococcus epidermidis #2, and Corynebacterium amycolatum/xer. Stopped his Doxycycline and started him on Clindamycin which was refilled this week. Surgical culture also came back positive for Salma albicans which he was started on diflucan. He is having some compromise of the skin graft. On the right he has 10% compromise and on the left 15% compromise. He would benefit from having HBO therapy to help prevent further compromise of his skin graft. He was approved for HBOT and is tolerating it well thus far. Chest x-ray and ECG normal. HgA1C 5.9 from 02/26/19. Stop TAYLOR NPWT due to hypergranulation and start calcium alginate dressing daily. He has some separation at 11-12 o'clock on the left middle back ulcer which has shown improvement. A selective debridement was performed today. Will monitor this area closely. Followup one week Code Visit [id number]
[2019-03-26 12:37] VITALS: BP 119/60; BP 122/71; PULSE 64; PULSE 86; RESP 16; RESP 18; TEMP 36.3; TEMP 36.7
--- NOTE | 2019-03-26 13:16 | PCM.HBO.PN ---
History of Present Illness Date of Service: 03/26/19 Presenting 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: Nonhealing diabetic ulcers left lateral middle back and right lateral middle back with failing/compromised flap/graft. BILL JACQUES is a 58 year old currently undergoing hyperbaric oxygen therapy for Nonhealing diabetic ulcers left lateral middle back and right lateral middle back with graft compromise. Progress: Today represent the patient's 13th hyperbaric oxygen therapy session, of a total planned 40 sessions. Tolerance of hyperbaric oxygen therapy: Hyperbaric oxygen therapy was administered today as per our facility's protocol. The patient is status-post placement of a right tympanic membrane tube on Monday03/19/19. The patient tolerated hyperbaric oxygen therapy well today, without complaints or complications. Vital signs were stable following his hyperbaric session. He was discharged in good condition. Tympanic membranes were normal in appearance prior to hyperbaric oxygen therapy, and lungs were clear to auscultation. Hyperbaric oxygen therapy was administered at 2 manda for a total of 90 minutes, with no air breaks. 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 Trigger finger, left ring finger (Chronic) Hypertension (Chronic) Neuroma (Chronic) Allergies/Adverse Reactions: Allergies No Known Allergies Allergy (Verified 02/21/19 08:44) Home Medications: Ambulatory Orders Medication Instructions Recorded albuterol sulfate HFA 90 2 puff INHALATION Q6H PRN 11/22/17 mcg/actuation aerosol inhaler Multivitamin with Minerals 1 ea PO DAILY 02/14/19 [Multiple Vitamin] Doxycycline [Vibramycin] 100 mg PO BID #28 cap 02/18/19 Lactobacillus Acidophilus/Fos 1 ea PO BID #30 tab 02/18/19 [Acidophilus Probiotic Tablet] doxycycline monohydrate 100 mg 100 mg PO BID 30 Days #60 tab 03/13/19 tablet fluconazole 200 mg tablet 400 mg PO DAILY 30 Days #60 tab 03/13/19 Paternal Family History: Family History (Last Reviewed 02/21/19 @ 08:45 by Yeimy Li) Grandfather Cancer Father Prostate cancer Grandfather CVA (cerebral vascular accident) Family History: Cancer, - Smoking Status: Unknown if ever smoked Tobacco Use: Non-smoker Physical Exam Vital Signs Temp Pulse Resp BP Pulse Ox 98.0 F 86 18 119/60 97 03/26/19 12:37 03/26/19 12:37 03/26/19 12:37 03/26/19 12:37 03/17/19 00:43 General: Alert, Oriented x3, Cooperative, No apparent distress, Well developed, Well nourished HEENT: Atraumatic, PERRLA, EOMI, Normocephalic, TM's Clear Lungs: Clear to auscultation, Normal air movement, No rhonchi, No wheeze, No rales Cardiovascular: Regular Rhythm, Normal S1, Normal S2 Psych/Mental Status: Normal Affect, Appropriate, Alert and oriented to time, place, person, mood and affect Assessment/Plan Active Problems (Last Updated 03/22/19 @ 16:03 by Terra Conteh DO) 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
[2019-03-27 10:02] VITALS: BP 123/71; BP 132/79; PULSE 72; PULSE 77; RESP 16; RESP 18; TEMP 36.4
--- NOTE | 2019-03-27 12:57 | PCM.HBO.PN ---
History of Present Illness Date of Service: 03/27/19 Presenting 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: Nonhealing diabetic ulcers left lateral middle back and right lateral middle back with failing/compromised flap/graft. BILL JACQUES is a 58 year old currently undergoing hyperbaric oxygen therapy for Nonhealing diabetic ulcers left lateral middle back and right lateral middle back with graft compromise. Progress: Today represent the patient's 14th hyperbaric oxygen therapy session, of a total planned 40 sessions. Tolerance of hyperbaric oxygen therapy: Hyperbaric oxygen therapy was administered today as per our facility's protocol. The patient is status-post placement of a right tympanic membrane tube on Monday03/19/19. The patient tolerated hyperbaric oxygen therapy well today, without complaints or complications. Vital signs were stable following his hyperbaric session. He was discharged in good condition. Tympanic membranes were normal in appearance prior to hyperbaric oxygen therapy, and lungs were clear to auscultation. Hyperbaric oxygen therapy was administered at 2 manda for a total of 90 minutes, with no air breaks. 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 Trigger finger, left ring finger (Chronic) Hypertension (Chronic) Neuroma (Chronic) Allergies/Adverse Reactions: Allergies No Known Allergies Allergy (Verified 02/21/19 08:44) Home Medications: Ambulatory Orders Medication Instructions Recorded albuterol sulfate HFA 90 2 puff INHALATION Q6H PRN 11/22/17 mcg/actuation aerosol inhaler Multivitamin with Minerals 1 ea PO DAILY 02/14/19 [Multiple Vitamin] Doxycycline [Vibramycin] 100 mg PO BID #28 cap 02/18/19 Lactobacillus Acidophilus/Fos 1 ea PO BID #30 tab 02/18/19 [Acidophilus Probiotic Tablet] doxycycline monohydrate 100 mg 100 mg PO BID 30 Days #60 tab 03/13/19 tablet fluconazole 200 mg tablet 400 mg PO DAILY 30 Days #60 tab 03/13/19 Paternal Family History: Family History (Last Reviewed 02/21/19 @ 08:45 by Yeimy Li) Grandfather Cancer Father Prostate cancer Grandfather CVA (cerebral vascular accident) Family History: Cancer, - Smoking Status: Unknown if ever smoked Tobacco Use: Non-smoker Physical Exam Vital Signs Temp Pulse Resp BP Pulse Ox 97.6 F L 77 18 123/71 H 97 03/27/19 10:02 03/27/19 10:02 03/27/19 10:02 03/27/19 10:02 03/17/19 00:43 Assessment/Plan Active Problems (Last Updated 03/22/19 @ 16:03 by Terra Conteh DO) 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
[2019-03-28 10:22] VITALS: BP 119/87; BP 132/76; PULSE 74; PULSE 77; RESP 16; RESP 18; TEMP 36.3; TEMP 36.4
--- NOTE | 2019-03-28 10:28 | PCM.HBO.PN ---
History of Present Illness Date of Service: 03/28/19 Presenting 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: Nonhealing diabetic ulcers left lateral middle back and right lateral middle back with failing/compromised flap/graft. BILL JACQUES is a 58 year old currently undergoing hyperbaric oxygen therapy for Nonhealing diabetic ulcers left lateral middle back and right lateral middle back with graft compromise. Progress: Today represent the patient's 15th hyperbaric oxygen therapy session, of a total planned 40 sessions. Tolerance of hyperbaric oxygen therapy: Hyperbaric oxygen therapy was administered today as per our facility's protocol. The patient is status-post placement of a right tympanic membrane tube on Monday03/19/19. The patient tolerated hyperbaric oxygen therapy well today, without complaints or complications. Vital signs were stable following his hyperbaric session. He was discharged in good condition. Tympanic membranes were normal in appearance prior to hyperbaric oxygen therapy, and lungs were clear to auscultation. Hyperbaric oxygen therapy was administered at 2 manda for a total of 90 minutes, with no air breaks. 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 Trigger finger, left ring finger (Chronic) Hypertension (Chronic) Neuroma (Chronic) Allergies/Adverse Reactions: Allergies No Known Allergies Allergy (Verified 02/21/19 08:44) Home Medications: Ambulatory Orders Medication Instructions Recorded albuterol sulfate HFA 90 2 puff INHALATION Q6H PRN 11/22/17 mcg/actuation aerosol inhaler Multivitamin with Minerals 1 ea PO DAILY 02/14/19 [Multiple Vitamin] Doxycycline [Vibramycin] 100 mg PO BID #28 cap 02/18/19 Lactobacillus Acidophilus/Fos 1 ea PO BID #30 tab 02/18/19 [Acidophilus Probiotic Tablet] doxycycline monohydrate 100 mg 100 mg PO BID 30 Days #60 tab 03/13/19 tablet fluconazole 200 mg tablet 400 mg PO DAILY 30 Days #60 tab 03/13/19 Paternal Family History: Family History (Last Reviewed 02/21/19 @ 08:45 by Yeimy Li) Grandfather Cancer Father Prostate cancer Grandfather CVA (cerebral vascular accident) Family History: Cancer, - Smoking Status: Unknown if ever smoked Tobacco Use: Non-smoker Physical Exam Vital Signs Temp Pulse Resp BP Pulse Ox 97.5 F L 77 18 132/76 H 97 03/28/19 10:22 03/28/19 10:22 03/28/19 10:22 03/28/19 10:22 03/17/19 00:43 General: Alert, Oriented x3, Cooperative, No apparent distress HEENT: Atraumatic, Normocephalic Lungs: Normal air movement Psych/Mental Status: Normal Affect Assessment/Plan Active Problems (Last Updated 03/22/19 @ 16:03 by Terra Conteh DO) 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
[2019-03-29 10:34] VITALS: BP 128/73; BP 140/78; PULSE 64; PULSE 75; RESP 16; RESP 18; TEMP 36.2; TEMP 36.3
--- NOTE | 2019-03-29 15:44 | PCM.HBO.PN ---
History of Present Illness Date of Service: 03/29/19 Presenting 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: Nonhealing diabetic ulcers left lateral middle back and right lateral middle back with failing/compromised flap/graft. BILL JACQUES is a 58 year old currently undergoing hyperbaric oxygen therapy for Nonhealing diabetic ulcers left lateral middle back and right lateral middle back with graft compromise. Progress: Today represent the patient's 17th hyperbaric oxygen therapy session, of a total planned 40 sessions. Tolerance of hyperbaric oxygen therapy: Hyperbaric oxygen therapy was administered today as per our facility's protocol. The patient is status-post placement of a right tympanic membrane tube on Monday03/19/19. The patient tolerated hyperbaric oxygen therapy well today, without complaints or complications. Vital signs were stable following his hyperbaric session. He was discharged in good condition. Tympanic membranes were normal in appearance prior to hyperbaric oxygen therapy, and lungs were clear to auscultation. Hyperbaric oxygen therapy was administered at 2 manda for a total of 90 minutes, with no air breaks. 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 Trigger finger, left ring finger (Chronic) Hypertension (Chronic) Neuroma (Chronic) Allergies/Adverse Reactions: Allergies No Known Allergies Allergy (Verified 02/21/19 08:44) Home Medications: Ambulatory Orders Medication Instructions Recorded albuterol sulfate HFA 90 2 puff INHALATION Q6H PRN 11/22/17 mcg/actuation aerosol inhaler Multivitamin with Minerals 1 ea PO DAILY 02/14/19 [Multiple Vitamin] Doxycycline [Vibramycin] 100 mg PO BID #28 cap 02/18/19 Lactobacillus Acidophilus/Fos 1 ea PO BID #30 tab 02/18/19 [Acidophilus Probiotic Tablet] doxycycline monohydrate 100 mg 100 mg PO BID 30 Days #60 tab 03/13/19 tablet fluconazole 200 mg tablet 400 mg PO DAILY 30 Days #60 tab 03/13/19 Paternal Family History: Family History (Last Reviewed 02/21/19 @ 08:45 by Yeimy Li) Grandfather Cancer Father Prostate cancer Grandfather CVA (cerebral vascular accident) Family History: Cancer, - Smoking Status: Unknown if ever smoked Tobacco Use: Non-smoker Alcohol: None Drugs: None Physical Exam Vital Signs Temp Pulse Resp BP Pulse Ox 97.4 F L 75 18 140/78 H 97 03/29/19 10:34 03/29/19 10:34 03/29/19 10:34 03/29/19 10:34 03/17/19 00:43 General: Alert, Oriented x3, Cooperative, No apparent distress Psych/Mental Status: Normal Affect, Appropriate Assessment/Plan Active Problems (Last Updated 03/22/19 @ 16:03 by Terra Conteh DO) 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
[2019-04-01 09:15] VITALS: BP 149/79; PULSE 70; RESP 18; TEMP 36.1; BMI 28.4
[2019-04-01 10:06] VITALS: BP 132/79; BP 132/83; PULSE 59; PULSE 71; RESP 16; RESP 18; TEMP 36.2
--- NOTE | 2019-04-01 17:49 | PN.PCM_ITS ---
Type of Wound Date of Service: 04/01/19 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: Nonhealing diabetic ulcers left lateral middle back and right lateral middle back with compromised skin grafts. History of Wound: Surgery 02/18/19 - 1. Surgical preparation right lateral middle back with excision nonhealing diabetic ulcer. 2. Reconstruction with STSG from right posterior flank (21 cm2) and placement AmnioFill Placental Connective Tissue Powder (250 mg) and placement TAYLOR NPWT. 3. Surgical preparation left lateral middle back with excision nonhealing diabetic ulcer. 4. Reconstruction with STSG from left posterior flank (48 cm2) and placement of AmnioFill Placental Connective Tissue Powder (500 mg) and placement of TAYLOR NPWT. Wound care - Calcium alginate. Operative cultures - MRSE, Staphylococcus epidermidis, and Corynebacterium amycolatum/xer in the left lateral middle back and Corynebacterium amycolatum/xer and Salma albicans in the right lateral middle back. Prealbumin from 12/05/18 was 22.5. Encourage nutritonal supplementation with protein to help the healing process. He developed some compromise to the skin grafts on his back. He has started HBO treatments and has tolerated them thus far. Today he denies fever. His appetite is good. Progress of Wound: Improved. - Physical Exam Vital Signs Temp Pulse Resp BP Pulse Ox 97.2 F L 71 18 132/83 H 97 04/01/19 10:06 04/01/19 10:06 04/01/19 10:06 04/01/19 10:06 03/17/19 00:43 Wound Measurements and Assessment WC - Nurse 1 - General Ulcer Measurement Start: 03/18/19 10:37 Freq: Status: Active Protocol: Activity Type Activity Date Activity User E-Sign Co-Sign Detail Recorded Client Recorded Date Recorded By Document 04/01/19 09:15 RB [id number] 04/01/19 09:17 RB 04/01/19 09:15 Wound Center Nurse 1 [Ulcer Assessment] 6. L lumbar back -Combined with other wound No -Current Size (cm) - Length 5.8 -Current Size (cm) - Width 6 -Current Size (cm) - Depth 0.1 -Total Square Cm 34.8 -Tunneling No -Undermining/Tunneling No -Circular Undermining No -Exudate Amt Medium -Exudate Type Serosanguineous -Wound Margin Fibrotic Scar, Thickened Scar -Granulation Amt Medium (34-66%) -Granulation Quality [place] -Slough/Fibrin Yes -Necrosis Amt Small (1-33%) -Necrotic Tissue Type Adherent Slough -Structure Exposed N/A -Texture (Mayra-wound Skin Appearance) Assessed, Scarring -Moisture (Mayra-wound Skin Appearance Assessed ) -Color (Mayra-wound Skin Appearance) Assessed -Temperature (Mayra-wound Skin No Abnormality Appearance) (Pt Warm) -Tenderness on Palpation (Mayra-wound No Skin Appearance) -Ulcer Cleansing Rinsed/ Irrigated with Saline -Foul Odor after Cleansing No -Anesthetic Used 4% Lidocaine Solution,5% Lidocaine Gel 5. R scapula -Combined with other wound No -Current Size (cm) - Length 3 -Current Size (cm) - Width 4.2 -Current Size (cm) - Depth 0.2 -Total Square Cm 12.6 -Tunneling No -Undermining/Tunneling No -Circular Undermining No -Exudate Amt Medium -Exudate Type Serosanguineous -Wound Margin Fibrotic Scar, Thickened Scar -Granulation Amt Medium (34-66%) -Granulation Quality [place] -Slough/Fibrin Yes -Necrosis Amt Small (1-33%) -Necrotic Tissue Type Adherent Slough -Structure Exposed N/A -Texture (Mayra-wound Skin Appearance) Assessed, Scarring -Moisture (Mayra-wound Skin Appearance Assessed ) -Color (Mayra-wound Skin Appearance) Assessed -Temperature (Mayra-wound Skin No Abnormality Appearance) (Pt Warm) -Tenderness on Palpation (Mayra-wound No Skin Appearance) -Ulcer Cleansing Wound Cleanser -Foul Odor after Cleansing No -Anesthetic Used 4% Lidocaine Solution,5% Lidocaine Gel WC - Nurse 2 - General Ulcer CM Notes Start: 03/18/19 10:37 Freq: Status: Active Protocol: Activity Type Activity Date Activity User E-Sign Co-Sign Detail Recorded Client Recorded Date Recorded By Document 04/01/19 09:39 [email or web address] [id number] 04/01/19 09:46 [facility] 04/01/19 09:39 Wound Center Nurse 2 [Procedure/Treatment] 6. L lumbar back -Time 09:40 -Correct Patient Yes -Correct Side, Site, Position Yes -Correct Procedure Yes -Procedure Performed Yes -Type of Procedure Debridement -Clinical Debridement Selective -Post Debridement Size (cm) - Length 8 -Post Debridement Size (cm) - Width 4.5 -Post Debridement Size (cm) - Depth 0.1 -Total Square Cm 36.0 -Wound/Ulcer Outcome Not Healed -Ulcer Cleansing Rinsed/ Irrigated with Saline -Foul Odor after Cleansing No -Bioengineered Tissue No -Bleeding Controlled with Pressure -Offloading No -Treatment Response Procedure Tolerated Well 5. R scapula -Time 09:40 -Correct Patient Yes -Correct Side, Site, Position Yes -Correct Procedure Yes -Procedure Performed Yes -Type of Procedure Debridement -Clinical Debridement Selective -Post Debridement Size (cm) - Length 5.5 -Post Debridement Size (cm) - Width 3 -Post Debridement Size (cm) - Depth 0.3 -Total Square Cm 16.5 -Wound/Ulcer Outcome Not Healed -Ulcer Cleansing Rinsed/ Irrigated with Saline -Foul Odor after Cleansing No -Bioengineered Tissue No -Bleeding Controlled with Pressure -Offloading No -Treatment Response Procedure Tolerated Well [See Physician Procedure note for Specifics] Pain Scale: 0-10 Numeric [Pain] -Is Patient Pain Free? Yes Debridement Note Post-Debridement Measurements/Treatment WC - Nurse 2 - General Ulcer CM Notes Start: 03/18/19 10:37 Freq: Status: Active Protocol: Activity Type Activity Date Activity User E-Sign Co-Sign Detail Recorded Client Recorded Date Recorded By Document 03/18/19 11:10 [id number] 03/18/19 11:20 Document 03/25/19 11:09 [id number] 03/25/19 11:23 Document 04/01/19 09:39 [id number] 04/01/19 09:46 03/18/19 03/25/19 04/01/19 11:10 11:09 09:39 Wound Center Nurse 2 6. L lumbar back -Time 11:10 11:12 09:40 -Correct Patient Yes Yes Yes -Correct Side, Site, Position Yes Yes Yes -Correct Procedure Yes Yes Yes -Procedure Performed Yes Yes Yes -Type of Procedure Debridement Debridement Debridement -Clinical Debridement Selective Selective Selective -Post Debridement Size (cm) - Length 7 8.5 8 -Post Debridement Size (cm) - Width 7.5 5 4.5 -Post Debridement Size (cm) - Depth 0.3 0.2 0.1 -Total Square Cm 52.5 42.5 36.0 -Wound/Ulcer Outcome Not Healed Not Healed Not Healed -Ulcer Cleansing Rinsed/ Rinsed/ Rinsed/ Irrigated with Irrigated with Irrigated with Saline Saline Saline -Foul Odor after Cleansing No No No -Bioengineered Tissue No No No -Bleeding Controlled with Pressure Pressure Pressure -Offloading No No No -Treatment Response Procedure Procedure Procedure Tolerated Well Tolerated Well Tolerated Well 5. R scapula -Time 11:10 11:12 09:40 -Correct Patient Yes Yes Yes -Correct Side, Site, Position Yes Yes Yes -Correct Procedure Yes Yes Yes -Procedure Performed Yes Yes Yes -Type of Procedure Debridement Debridement Debridement -Clinical Debridement Selective Selective Selective -Post Debridement Size (cm) - Length 4.6 5.7 5.5 -Post Debridement Size (cm) - Width 4.5 3.0 3 -Post Debridement Size (cm) - Depth 0.3 0.4 0.3 -Total Square Cm 20.70 17.10 16.5 -Wound/Ulcer Outcome Not Healed Not Healed Not Healed -Ulcer Cleansing Rinsed/ Rinsed/ Rinsed/ Irrigated with Irrigated with Irrigated with Saline Saline Saline -Foul Odor after Cleansing No No No -Bioengineered Tissue No No No -Bleeding Controlled with Pressure Pressure Pressure -Offloading No No No -Treatment Response Procedure Procedure Procedure Tolerated Well Tolerated Well Tolerated Well Pain Scale: 0-10 Numeric Is Patient Pain Free? Yes Yes Yes Wound debrided: #5 Right lateral middle back. Laterality: Right Wound Grade/Stage: 2. Type of Debridement: Selective debridement Anesthesia Used: 4% Lidocaine Solution Depth: Down to and including healthy tissue Percentage of wound debrided: 100 Instrument Used: 3mm curette Tissue Removed: scattered dermis. Severity: Limited To Skin Breakdown Amount of bleeding with debridement: Mild Bleeding Controlled with: Pressure Patient tolerated procedure well - Additional Wound Wound debrided: #6 Left lateral middle back. Laterality: Left Wound Grade/Stage: 2. Type of Debridement: Selective debridement Anesthesia Used: 4% Lidocaine Solution Depth: Down to and including healthy tissue Percentage of wound debrided: 100 Instrument Used: 3mm curette Tissue Removed: scattered dermis. 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 Nonhealing diabetic ulcer right lateral middle back. 2. Nonhealing diabetic ulcer left lateral middle back. 3. Diabetes mellitus. 4. s/p surgical preparation right lateral middle back with excision nonhealing diabetic ulcer and reconstruction with STSG from right posterior flank (21 cm2) and placement AmnioFill Placental Connective Tissue Powder (250 mg) and placement TAYLOR NPWT and surgical preparation left lateral middle back with excision nonhealing diabetic ulcer and reconstruction with STSG from left posterior flank (48 cm2) and placement of AmnioFill Placental Connective Tissue Powder (500 mg) and placement of TAYLOR NPWT. 5. Mild compromised skin grafts. Plan: Continue Calcium Alginate to the compromised areas of both skin graft ulcers. He is tolerating HBO. He will continue the treatments to help salvage the compromised skin grafts. Operative cultures showed Corynebaterium amycolatum/xer and Salma albicans in the right lateral middle back ulcer and MRSE, Staphylococcus epidermidis, and Corynebacterium amycolatum/xer in the left lateral middle back ulcer. He is finishing the Cleocin and will continue the Diflucan. Will need to check a CMP while on Diflucan. Prealbumin from 12/05/18 was 22.5. Encourage nutritional supplementation with protein to help the healing process. Followup one week. Code Visit Wound Center Charges CPT - 19088 ICD-10 - V58.49, L98.492. E11.9, T86.829
--- NOTE | 2019-04-01 18:03 | PCM.HBO.PN ---
History of Present Illness Date of Service: 04/01/19 Presenting 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: Nonhealing diabetic ulcers left lateral middle back and right lateral middle back with compromised skin grafts. BILL JACQUES is a 58 year old currently undergoing hyperbaric oxygen therapy for Nonhealing diabetic ulcers left lateral middle back and right lateral middle back with compromised skin grafts. Progress: Today represent the patient's 17th hyperbaric oxygen therapy session, of a total planned 40 sessions. Tolerance of hyperbaric oxygen therapy: Hyperbaric oxygen therapy was administered today as per our facility's protocol. The patient is status-post placement of a right tympanic membrane tube on Monday03/19/19. The patient tolerated hyperbaric oxygen therapy well today, without complaints or complications. Vital signs were stable following his hyperbaric session. He was discharged in good condition. . 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 Trigger finger, left ring finger (Chronic) Hypertension (Chronic) Neuroma (Chronic) Allergies/Adverse Reactions: Allergies No Known Allergies Allergy (Verified 02/21/19 08:44) Home Medications: Ambulatory Orders Medication Instructions Recorded albuterol sulfate 90 mcg/actuation 2 puff INHALATION Q6H PRN 11/22/17 aerosol inhaler Multivitamin with Minerals 1 ea PO DAILY 02/14/19 [Multiple Vitamin] Doxycycline [Vibramycin] 100 mg PO BID #28 cap 02/18/19 Lactobacillus Acidophilus/Fos 1 ea PO BID #30 tab 02/18/19 [Acidophilus Probiotic Tablet] doxycycline monohydrate 100 mg 100 mg PO BID 30 Days #60 tab 03/13/19 tablet fluconazole 200 mg tablet 400 mg PO DAILY 30 Days #60 tab 03/13/19 Paternal Family History: Family History (Last Reviewed 02/21/19 @ 08:45 by Yeimy Li) Grandfather Cancer Father Prostate cancer Grandfather CVA (cerebral vascular accident) Family History: Cancer, - Smoking Status: Unknown if ever smoked Tobacco Use: Non-smoker Alcohol: None Drugs: None Physical Exam Vital Signs Temp Pulse Resp BP Pulse Ox 97.2 F L 71 18 132/83 H 97 04/01/19 10:06 04/01/19 10:06 04/01/19 10:06 04/01/19 10:06 03/17/19 00:43 Assessment/Plan Active Problems (Last Updated 03/22/19 @ 16:03 by Terra Conteh DO) 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
[2019-04-02 10:15] VITALS: BP 133/79; BP 140/86; PULSE 76; PULSE 79; RESP 16; RESP 18; TEMP 36.4
--- NOTE | 2019-04-02 12:15 | PCM.HBO.PN ---
History of Present Illness Date of Service: 04/02/19 Presenting 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: Nonhealing diabetic ulcers left lateral middle back and right lateral middle back with failing/compromised flap/graft. BILL JACQUES is a 58 year old currently undergoing hyperbaric oxygen therapy for Nonhealing diabetic ulcers left lateral middle back and right lateral middle back with graft compromise. Progress: Today represent the patient's 18th hyperbaric oxygen therapy session, of a total planned 40 sessions. Tolerance of hyperbaric oxygen therapy: Hyperbaric oxygen therapy was administered today as per our facility's protocol. The patient is status-post placement of a right tympanic membrane tube on Monday03/19/19. The patient tolerated hyperbaric oxygen therapy well today, without complaints or complications. Vital signs were stable following his hyperbaric session. He was discharged in good condition. Tympanic membranes were normal in appearance prior to hyperbaric oxygen therapy, and lungs were clear to auscultation. Hyperbaric oxygen therapy was administered at 2 manda for a total of 90 minutes, with no air breaks. 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 Trigger finger, left ring finger (Chronic) Hypertension (Chronic) Neuroma (Chronic) Allergies/Adverse Reactions: Allergies No Known Allergies Allergy (Verified 02/21/19 08:44) Home Medications: Ambulatory Orders Medication Instructions Recorded albuterol sulfate 90 mcg/actuation 2 puff INHALATION Q6H PRN 11/22/17 aerosol inhaler Multivitamin with Minerals 1 ea PO DAILY 02/14/19 [Multiple Vitamin] Doxycycline [Vibramycin] 100 mg PO BID #28 cap 02/18/19 Lactobacillus Acidophilus/Fos 1 ea PO BID #30 tab 02/18/19 [Acidophilus Probiotic Tablet] doxycycline monohydrate 100 mg 100 mg PO BID 30 Days #60 tab 03/13/19 tablet fluconazole 200 mg tablet 400 mg PO DAILY 30 Days #60 tab 03/13/19 Paternal Family History: Family History (Last Reviewed 02/21/19 @ 08:45 by Yeimy Li) Grandfather Cancer Father Prostate cancer Grandfather CVA (cerebral vascular accident) Family History: Cancer, - Smoking Status: Unknown if ever smoked Tobacco Use: Non-smoker Alcohol: None Drugs: None Physical Exam Vital Signs Temp Pulse Resp BP Pulse Ox 97.6 F L 79 18 133/79 H 97 04/02/19 10:15 04/02/19 10:15 04/02/19 10:15 04/02/19 10:15 03/17/19 00:43 General: Alert, Oriented x3, Cooperative, No apparent distress, Well developed, Well nourished HEENT: Atraumatic, PERRLA, EOMI, Normocephalic Lungs: Clear to auscultation, Normal air movement, No rhonchi, No wheeze, No rales Psych/Mental Status: Normal Affect, Appropriate, Alert and oriented to time, place, person, mood and affect Assessment/Plan Active Problems (Last Updated 03/22/19 @ 16:03 by Terra Conteh DO) 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
--- NOTE | 2019-04-03 11:06 | PCM.HBO.PN ---
History of Present Illness Date of Service: 04/03/19 Presenting 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: Nonhealing diabetic ulcers left lateral middle back and right lateral middle back with failing/compromised flap/graft. BILL JACQUES is a 58 year old currently undergoing hyperbaric oxygen therapy for Nonhealing diabetic ulcers left lateral middle back and right lateral middle back with graft compromise. Progress: Today represent the patient's th hyperbaric oxygen therapy session, of a total planned 40 sessions. Tolerance of hyperbaric oxygen therapy: Hyperbaric oxygen therapy was administered today as per our facility's protocol. The patient is status-post placement of a right tympanic membrane tube on Monday03/19/19. The patient tolerated hyperbaric oxygen therapy well today, without complaints or complications. Vital signs were stable following his hyperbaric session. He was discharged in good condition. Tympanic membranes were normal in appearance prior to hyperbaric oxygen therapy, and lungs were clear to auscultation. Hyperbaric oxygen therapy was administered at 2 manda for a total of 90 minutes, with no air breaks. 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 Trigger finger, left ring finger (Chronic) Hypertension (Chronic) Neuroma (Chronic) Allergies/Adverse Reactions: Allergies No Known Allergies Allergy (Verified 02/21/19 08:44) Home Medications: Ambulatory Orders Medication Instructions Recorded albuterol sulfate 90 mcg/actuation 2 puff INHALATION Q6H PRN 11/22/17 aerosol inhaler Multivitamin with Minerals 1 ea PO DAILY 02/14/19 [Multiple Vitamin] Doxycycline [Vibramycin] 100 mg PO BID #28 cap 02/18/19 Lactobacillus Acidophilus/Fos 1 ea PO BID #30 tab 02/18/19 [Acidophilus Probiotic Tablet] doxycycline monohydrate 100 mg 100 mg PO BID 30 Days #60 tab 03/13/19 tablet fluconazole 200 mg tablet 400 mg PO DAILY 30 Days #60 tab 03/13/19 Paternal Family History: Family History (Last Reviewed 02/21/19 @ 08:45 by Yeimy Li) Grandfather Cancer Father Prostate cancer Grandfather CVA (cerebral vascular accident) Family History: Cancer, - Smoking Status: Unknown if ever smoked Tobacco Use: Non-smoker Alcohol: None Drugs: None Physical Exam Vital Signs Temp Pulse Resp BP Pulse Ox 97.6 F L 79 18 133/79 H 97 04/02/19 10:15 04/02/19 10:15 04/02/19 10:15 04/02/19 10:15 03/17/19 00:43 Assessment/Plan Active Problems (Last Updated 03/22/19 @ 16:03 by Terra Conteh DO) 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
[2019-04-03 11:09] VITALS: BP 126/78; BP 137/75; PULSE 64; PULSE 76; RESP 16; RESP 18; TEMP 36.4; TEMP 36.7
[2019-04-04 10:22] VITALS: BP 134/82; BP 143/76; PULSE 84; RESP 16; RESP 18; TEMP 36.3; TEMP 36.6
--- NOTE | 2019-04-04 10:44 | PCM.HBO.PN ---
History of Present Illness Date of Service: 04/04/19 Presenting 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: Nonhealing diabetic ulcers left lateral middle back and right lateral middle back with compromised skin grafts. BILL JACQUES is a 58 year old currently undergoing hyperbaric oxygen therapy for Nonhealing diabetic ulcers left lateral middle back and right lateral middle back with compromised skin grafts. Progress: Today represent the patient's 18th hyperbaric oxygen therapy session, of a total planned 40 sessions. Tolerance of hyperbaric oxygen therapy: Hyperbaric oxygen therapy was administered today as per our facility's protocol. The patient is status-post placement of a right tympanic membrane tube on Monday03/19/19. The patient tolerated hyperbaric oxygen therapy well today, without complaints or complications. Vital signs were stable following his hyperbaric session. He was discharged in good condition. . 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 Trigger finger, left ring finger (Chronic) Hypertension (Chronic) Neuroma (Chronic) Allergies/Adverse Reactions: Allergies No Known Allergies Allergy (Verified 02/21/19 08:44) Home Medications: Ambulatory Orders Medication Instructions Recorded albuterol sulfate 90 mcg/actuation 2 puff INHALATION Q6H PRN 11/22/17 aerosol inhaler Multivitamin with Minerals 1 ea PO DAILY 02/14/19 [Multiple Vitamin] Doxycycline [Vibramycin] 100 mg PO BID #28 cap 02/18/19 Lactobacillus Acidophilus/Fos 1 ea PO BID #30 tab 02/18/19 [Acidophilus Probiotic Tablet] doxycycline monohydrate 100 mg 100 mg PO BID 30 Days #60 tab 03/13/19 tablet fluconazole 200 mg tablet 400 mg PO DAILY 30 Days #60 tab 03/13/19 Paternal Family History: Family History (Last Reviewed 02/21/19 @ 08:45 by Yeimy Li) Grandfather Cancer Father Prostate cancer Grandfather CVA (cerebral vascular accident) Family History: Cancer, - Smoking Status: Unknown if ever smoked Tobacco Use: Non-smoker Alcohol: None Drugs: None Physical Exam Vital Signs Temp Pulse Resp BP Pulse Ox 97.9 F 84 18 143/76 H 97 04/04/19 10:22 04/04/19 10:22 04/04/19 10:22 04/04/19 10:22 03/17/19 00:43 General: Alert, Oriented x3, Cooperative, No apparent distress HEENT: Atraumatic, Normocephalic Lungs: Normal air movement Psych/Mental Status: Normal Affect Assessment/Plan Active Problems (Last Updated 03/22/19 @ 16:03 by Terra Conteh DO) 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
[2019-04-05 11:10] VITALS: BP 121/79; BP 130/76; PULSE 77; PULSE 83; RESP 16; RESP 18; TEMP 36.3; TEMP 36.4
--- NOTE | 2019-04-05 13:24 | PCM.HBO.PN ---
History of Present Illness Date of Service: 04/05/19 Presenting 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: Nonhealing diabetic ulcers left lateral middle back and right lateral middle back with compromised skin grafts. BILL JACQUES is a 58 year old currently undergoing hyperbaric oxygen therapy for Nonhealing diabetic ulcers left lateral middle back and right lateral middle back with compromised skin grafts. Progress: Today represent the patient's 21st hyperbaric oxygen therapy session, of a total planned 40 sessions. Tolerance of hyperbaric oxygen therapy: Hyperbaric oxygen therapy was administered today as per our facility's protocol. The patient is status-post placement of a right tympanic membrane tube on Monday03/19/19. The patient tolerated hyperbaric oxygen therapy well today, without complaints or complications. Vital signs were stable following his hyperbaric session. He was discharged in good condition. . 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 Trigger finger, left ring finger (Chronic) Hypertension (Chronic) Neuroma (Chronic) Allergies/Adverse Reactions: Allergies No Known Allergies Allergy (Verified 02/21/19 08:44) Home Medications: Ambulatory Orders Medication Instructions Recorded albuterol sulfate 90 mcg/actuation 2 puff INHALATION Q6H PRN 11/22/17 aerosol inhaler Multivitamin with Minerals 1 ea PO DAILY 02/14/19 [Multiple Vitamin] Doxycycline [Vibramycin] 100 mg PO BID #28 cap 02/18/19 Lactobacillus Acidophilus/Fos 1 ea PO BID #30 tab 02/18/19 [Acidophilus Probiotic Tablet] doxycycline monohydrate 100 mg 100 mg PO BID 30 Days #60 tab 03/13/19 tablet fluconazole 200 mg tablet 400 mg PO DAILY 30 Days #60 tab 03/13/19 Paternal Family History: Family History (Last Reviewed 02/21/19 @ 08:45 by Yeimy Li) Grandfather Cancer Father Prostate cancer Grandfather CVA (cerebral vascular accident) Family History: Cancer, - Smoking Status: Unknown if ever smoked Tobacco Use: Non-smoker Alcohol: None Drugs: None Physical Exam Vital Signs Temp Pulse Resp BP Pulse Ox 97.6 F L 83 18 130/76 H 97 04/05/19 11:10 04/05/19 11:10 04/05/19 11:10 04/05/19 11:10 03/17/19 00:43 General: Alert, Oriented x3, Cooperative, No apparent distress Psych/Mental Status: Normal Affect, Appropriate Assessment/Plan Active Problems (Last Updated 03/22/19 @ 16:03 by Terra Conteh DO) 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
[2019-04-08 08:22] VITALS: BP 135/63; PULSE 62; RESP 16; TEMP 36.4; BMI 28.4
[2019-04-08 09:34] VITALS: BP 130/79; BP 141/90; PULSE 58; PULSE 69; RESP 16; RESP 18; TEMP 36.3
--- NOTE | 2019-04-08 15:41 | PCM.WC.PN ---
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 History of Wound: Surgery 02/18/19 - 1. Surgical preparation right lateral middle back with excision nonhealing diabetic ulcer. 2. Reconstruction with STSG from right posterior flank (21 cm2) and placement AmnioFill Placental Connective Tissue Powder (250 mg) and placement TAYLOR NPWT. 3. Surgical preparation left lateral middle back with excision nonhealing diabetic ulcer. 4. Reconstruction with STSG from left posterior flank (48 cm2) and placement of AmnioFill Placental Connective Tissue Powder (500 mg) and placement of TAYLOR NPWT. Wound care - Calcium alginate. Operative cultures - MRSE, Staphylococcus epidermidis, and Corynebacterium amycolatum/xer in the left lateral middle back and Corynebacterium amycolatum/xer and Salma albicans in the right lateral middle back. Prealbumin from 12/05/18 was 22.5. Encourage nutritonal supplementation with protein to help the healing process. He developed some compromise to the skin grafts on his back. He has started HBO treatments and has tolerated them thus far. Today he denies fever. His appetite is good. Progress of Wound: Improved. - Physical Exam Vital Signs Temp Pulse Resp BP Pulse Ox 97.3 F L 69 18 130/79 H 97 04/08/19 09:34 04/08/19 09:34 04/08/19 09:34 04/08/19 09:34 03/17/19 00:43 General: Alert, Oriented x3, Cooperative HEENT: Atraumatic Oral: Moist Mucosa Lungs: Clear to auscultation, Normal air movement Cardiovascular: Regular rate Skin: Ulcer/ Wound - left and right medial back ulcers Wound Measurements and Assessment WC - Nurse 1 - General Ulcer Measurement Start: 03/18/19 10:37 Freq: Status: Active Protocol: Activity Type Activity Date Activity User E-Sign Co-Sign Detail Recorded Client Recorded Date Recorded By Document 04/08/19 08:22 [facility] [id number] 04/08/19 08:27 [facility] 04/08/19 08:22 Wound Center Nurse 1 [Ulcer Assessment] 6. L lumbar back -Combined with other wound No -Current Size (cm) - Length 3 -Current Size (cm) - Width 4.2 -Current Size (cm) - Depth 0.2 -Total Square Cm 12.6 -Photo Taken No -Epithelialization Small 1-33% -Tunneling No -Undermining/Tunneling No -Circular Undermining No -Exudate Amt Small -Exudate Type Serosanguineous -Wound Margin Distinct, Outline Attached -Granulation Amt Large (67-100%) -Granulation Quality Red -Slough/Fibrin Yes -Necrosis Amt Small (1-33%) -Necrotic Tissue Type Adherent Slough -Texture (Mayra-wound Skin Appearance) Assessed, Scarring -Moisture (Mayra-wound Skin Appearance Assessed,Dry/ ) Scaly -Color (Mayra-wound Skin Appearance) Assessed -Temperature (Mayra-wound Skin No Abnormality Appearance) (Pt Warm) -Tenderness on Palpation (Mayra-wound No Skin Appearance) -Ulcer Cleansing Rinsed/ Irrigated with Saline -Foul Odor after Cleansing No -Anesthetic Used 5% Lidocaine Gel 5. R scapula -Combined with other wound No -Current Size (cm) - Length 6.7 -Current Size (cm) - Width 5.6 -Current Size (cm) - Depth 0.1 -Total Square Cm 37.52 -Photo Taken No -Epithelialization Small 1-33% -Tunneling No -Undermining/Tunneling No -Circular Undermining No -Exudate Amt Small -Exudate Type Serosanguineous -Wound Margin Distinct, Outline Attached -Granulation Amt Large (67-100%) -Granulation Quality Red -Slough/Fibrin Yes -Necrosis Amt Small (1-33%) -Necrotic Tissue Type Adherent Slough -Texture (Mayra-wound Skin Appearance) Assessed, Scarring -Moisture (Mayra-wound Skin Appearance Assessed,Dry/ ) Scaly -Color (Mayra-wound Skin Appearance) Assessed -Temperature (Mayra-wound Skin No Abnormality Appearance) (Pt Warm) -Tenderness on Palpation (Mayra-wound No Skin Appearance) -Ulcer Cleansing Rinsed/ Irrigated with Saline -Foul Odor after Cleansing No -Anesthetic Used 5% Lidocaine Gel WC - Nurse 2 - General Ulcer CM Notes Start: 03/18/19 10:37 Freq: Status: Active Protocol: Activity Type Activity Date Activity User E-Sign Co-Sign Detail Recorded Client Recorded Date Recorded By Document 04/08/19 09:02 [facility] [id number] 04/08/19 09:08 [facility] 04/08/19 09:02 Wound Center Nurse 2 [Procedure/Treatment] 6. L lumbar back -Time 09:02 -Correct Patient Yes -Correct Side, Site, Position Yes -Correct Procedure Yes -Procedure Performed Yes -Type of Procedure Debridement -Clinical Debridement Subcutaneous -Post Debridement Size (cm) - Length 8.0 -Post Debridement Size (cm) - Width 4.4 -Post Debridement Size (cm) - Depth 0.1 -Total Square Cm 35.20 -Wound/Ulcer Outcome Not Healed -Ulcer Cleansing Rinsed/ Irrigated with Saline -Foul Odor after Cleansing No -Bioengineered Tissue No -Bleeding Controlled with Pressure -Offloading No -Treatment Response Procedure Tolerated Well 5. R scapula -Time 09:03 -Correct Patient Yes -Correct Side, Site, Position Yes -Correct Procedure Yes -Procedure Performed Yes -Type of Procedure Debridement -Clinical Debridement Subcutaneous -Post Debridement Size (cm) - Length 6.7 -Post Debridement Size (cm) - Width 2.5 -Post Debridement Size (cm) - Depth 0.2 -Total Square Cm 16.75 -Wound/Ulcer Outcome Not Healed -Ulcer Cleansing Rinsed/ Irrigated with Saline -Foul Odor after Cleansing No -Bioengineered Tissue No -Bleeding Controlled with Pressure -Offloading No -Treatment Response Procedure Tolerated Well [See Physician Procedure note for Specifics] Pain Scale: 0-10 Numeric [Pain] -Is Patient Pain Free? Yes Musculoskeletal: No Tenderness to Palpation of Joints or Extremities Neurological: Neuro grossly intact Psych/Mental Status: Normal Affect, Appropriate Debridement Note Post-Debridement Measurements/Treatment WC - Nurse 2 - General Ulcer CM Notes Start: 03/18/19 10:37 Freq: Status: Active Protocol: Activity Type Activity Date Activity User E-Sign Co-Sign Detail Recorded Client Recorded Date Recorded By Document 03/18/19 11:10 [id number] 03/18/19 11:20 Document 03/25/19 11:09 [id number] 03/25/19 11:23 Document 04/01/19 09:39 [id number] 04/01/19 09:46 Document 04/08/19 09:02 [id number] 04/08/19 09:08 03/18/19 03/25/19 04/01/19 11:10 11:09 09:39 Wound Center Nurse 2 6. L lumbar back -Time 11:10 11:12 09:40 -Correct Patient Yes Yes Yes -Correct Side, Site, Position Yes Yes Yes -Correct Procedure Yes Yes Yes -Procedure Performed Yes Yes Yes -Type of Procedure Debridement Debridement Debridement -Clinical Debridement Selective Selective Selective -Post Debridement Size (cm) - Length 7 8.5 8 -Post Debridement Size (cm) - Width 7.5 5 4.5 -Post Debridement Size (cm) - Depth 0.3 0.2 0.1 -Total Square Cm 52.5 42.5 36.0 -Wound/Ulcer Outcome Not Healed Not Healed Not Healed -Ulcer Cleansing Rinsed/ Rinsed/ Rinsed/ Irrigated with Irrigated with Irrigated with Saline Saline Saline -Foul Odor after Cleansing No No No -Bioengineered Tissue No No No -Bleeding Controlled with Pressure Pressure Pressure -Offloading No No No -Treatment Response Procedure Procedure Procedure Tolerated Well Tolerated Well Tolerated Well 5. R scapula -Time 11:10 11:12 09:40 -Correct Patient Yes Yes Yes -Correct Side, Site, Position Yes Yes Yes -Correct Procedure Yes Yes Yes -Procedure Performed Yes Yes Yes -Type of Procedure Debridement Debridement Debridement -Clinical Debridement Selective Selective Selective -Post Debridement Size (cm) - Length 4.6 5.7 5.5 -Post Debridement Size (cm) - Width 4.5 3.0 3 -Post Debridement Size (cm) - Depth 0.3 0.4 0.3 -Total Square Cm 20.70 17.10 16.5 -Wound/Ulcer Outcome Not Healed Not Healed Not Healed -Ulcer Cleansing Rinsed/ Rinsed/ Rinsed/ Irrigated with Irrigated with Irrigated with Saline Saline Saline -Foul Odor after Cleansing No No No -Bioengineered Tissue No No No -Bleeding Controlled with Pressure Pressure Pressure -Offloading No No No -Treatment Response Procedure Procedure Procedure Tolerated Well Tolerated Well Tolerated Well Pain Scale: 0-10 Numeric Is Patient Pain Free? Yes Yes Yes 04/08/19 09:02 Wound Center Nurse 2 6. L lumbar back -Time 09:02 -Correct Patient Yes -Correct Side, Site, Position Yes -Correct Procedure Yes -Procedure Performed Yes -Type of Procedure Debridement -Clinical Debridement Subcutaneous -Post Debridement Size (cm) - Length 8.0 -Post Debridement Size (cm) - Width 4.4 -Post Debridement Size (cm) - Depth 0.1 -Total Square Cm 35.20 -Wound/Ulcer Outcome Not Healed -Ulcer Cleansing Rinsed/ Irrigated with Saline -Foul Odor after Cleansing No -Bioengineered Tissue No -Bleeding Controlled with Pressure -Offloading No -Treatment Response Procedure Tolerated Well 5. R scapula -Time 09:03 -Correct Patient Yes -Correct Side, Site, Position Yes -Correct Procedure Yes -Procedure Performed Yes -Type of Procedure Debridement -Clinical Debridement Subcutaneous -Post Debridement Size (cm) - Length 6.7 -Post Debridement Size (cm) - Width 2.5 -Post Debridement Size (cm) - Depth 0.2 -Total Square Cm 16.75 -Wound/Ulcer Outcome Not Healed -Ulcer Cleansing Rinsed/ Irrigated with Saline -Foul Odor after Cleansing No -Bioengineered Tissue No -Bleeding Controlled with Pressure -Offloading No -Treatment Response Procedure Tolerated Well Pain Scale: 0-10 Numeric Is Patient Pain Free? Yes Wound debrided: middle back Laterality: Right Type of Debridement: Excisional debridement Anesthesia Used: 5% Lidocaine Gel Depth: Down to and including healthy tissue, in the subcutaneous layer Percentage of wound debrided: 100 Instrument Used: 3mm curette Tissue Removed: Subcutaneous tissue and slough Severity: Fat Layer Exposed Amount of bleeding with debridement: Mild Bleeding Controlled with: Pressure Patient tolerated procedure well - Additional Wound Wound debrided: middle back ulcer Laterality: Left Type of Debridement: Excisional debridement Anesthesia Used: 5% Lidocaine Gel Depth: Down to and including healthy tissue, in the subcutaneous layer Percentage of wound debrided: 100 Instrument Used: 3mm curette Tissue Removed: subcutaneous tissue and slough Severity: Fat Layer Exposed Amount of bleeding with debridement: Mild Bleeding Controlled with: Pressure Patient tolerated procedure: Patient tolerated procedure well Assessment/Plan Active Problems (Last Updated 03/22/19 @ 16:03 by Terra Conteh DO) 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 Assessment: 1. Nonhealing diabetic ulcer right lateral middle back. 2. Nonhealing diabetic ulcer left lateral middle back. 3. Diabetes mellitus. 4. s/p surgical preparation right lateral middle back with excision nonhealing diabetic ulcer and reconstruction with STSG from right posterior flank (21 cm2) and placement AmnioFill Placental Connective Tissue Powder (250 mg) and placement TAYLOR NPWT and surgical preparation left lateral middle back with excision nonhealing diabetic ulcer and reconstruction with STSG from left posterior flank (48 cm2) and placement of AmnioFill Placental Connective Tissue Powder (500 mg) and placement of TAYLOR NPWT. 5. Mild compromised skin grafts. Plan: Continue Calcium Alginate to the compromised areas of both skin graft ulcers. He is tolerating HBO. He will continue the treatments to help salvage the compromised skin grafts. Operative cultures showed Corynebaterium amycolatum/xer and Salma albicans in the right lateral middle back ulcer and MRSE, Staphylococcus epidermidis, and Corynebacterium amycolatum/xer in the left lateral middle back ulcer. He is finishing the Cleocin and will continue the Diflucan. Will need to check a CMP while on Diflucan. Prealbumin from 12/05/18 was 22.5. Encourage nutritional supplementation with protein to help the healing process. Followup one week. Code Visit 30631
--- NOTE | 2019-04-08 15:42 | PCM.HBO.PN ---
History of Present Illness Date of Service: 04/08/19 Presenting 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: Nonhealing diabetic ulcers left lateral middle back and right lateral middle back with compromised skin grafts. BILL JACQUES is a 58 year old currently undergoing hyperbaric oxygen therapy for Nonhealing diabetic ulcers left lateral middle back and right lateral middle back with compromised skin grafts. Progress: Today represent the patient's 22nd hyperbaric oxygen therapy session, of a total planned 40 sessions. Tolerance of hyperbaric oxygen therapy: Hyperbaric oxygen therapy was administered today as per our facility's protocol. The patient is status-post placement of a right tympanic membrane tube on Monday03/19/19. The patient tolerated hyperbaric oxygen therapy well today, without complaints or complications. Vital signs were stable following his hyperbaric session. He was discharged in good condition. . 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 Trigger finger, left ring finger (Chronic) Hypertension (Chronic) Neuroma (Chronic) Allergies/Adverse Reactions: Allergies No Known Allergies Allergy (Verified 02/21/19 08:44) Home Medications: Ambulatory Orders Medication Instructions Recorded albuterol sulfate 90 mcg/actuation 2 puff INHALATION Q6H PRN 11/22/17 aerosol inhaler Multivitamin with Minerals 1 ea PO DAILY 02/14/19 [Multiple Vitamin] Doxycycline [Vibramycin] 100 mg PO BID #28 cap 02/18/19 Lactobacillus Acidophilus/Fos 1 ea PO BID #30 tab 02/18/19 [Acidophilus Probiotic Tablet] doxycycline monohydrate 100 mg 100 mg PO BID 30 Days #60 tab 03/13/19 tablet fluconazole 200 mg tablet 400 mg PO DAILY 30 Days #60 tab 03/13/19 Paternal Family History: Family History (Last Reviewed 02/21/19 @ 08:45 by Yeimy Li) Grandfather Cancer Father Prostate cancer Grandfather CVA (cerebral vascular accident) Family History: Cancer, - Smoking Status: Unknown if ever smoked Tobacco Use: Non-smoker Alcohol: None Drugs: None Physical Exam Vital Signs Temp Pulse Resp BP Pulse Ox 97.3 F L 69 18 130/79 H 97 04/08/19 09:34 04/08/19 09:34 04/08/19 09:34 04/08/19 09:34 03/17/19 00:43 General: Alert, Oriented x3, Cooperative HEENT: Atraumatic, TM's Clear Lungs: Clear to auscultation, Normal air movement Cardiovascular: Regular rate Psych/Mental Status: Normal Affect Assessment/Plan Patient appears to be tolerating hyperbaric oxygen therapy well, which will be continued as per the patient's medical plan. Code Visit [id number]
[2019-04-12 08:14] VITALS: BP 112/81; BP 133/96; PULSE 65; PULSE 71; RESP 16; RESP 18; TEMP 36.2; TEMP 36.4
--- NOTE | 2019-04-12 10:42 | PCM.HBO.PN ---
History of Present Illness Date of Service: 04/12/19 Presenting 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: Nonhealing diabetic ulcers left lateral middle back and right lateral middle back with compromised skin grafts. BILL JACQUES is a 58 year old currently undergoing hyperbaric oxygen therapy for Nonhealing diabetic ulcers left lateral middle back and right lateral middle back with compromised skin grafts. Progress: Today represent the patient's 23rd hyperbaric oxygen therapy session, of a total planned 40 sessions. Tolerance of hyperbaric oxygen therapy: Hyperbaric oxygen therapy was administered today as per our facility's protocol. The patient is status-post placement of a right tympanic membrane tube on Monday03/19/19. The patient tolerated hyperbaric oxygen therapy well today, without complaints or complications. Vital signs were stable following his hyperbaric session. He was discharged in good condition. . 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 Trigger finger, left ring finger (Chronic) Hypertension (Chronic) Neuroma (Chronic) Allergies/Adverse Reactions: Allergies No Known Allergies Allergy (Verified 02/21/19 08:44) Home Medications: Ambulatory Orders Medication Instructions Recorded albuterol sulfate 90 mcg/actuation 2 puff INHALATION Q6H PRN 11/22/17 aerosol inhaler Multivitamin with Minerals 1 ea PO DAILY 02/14/19 [Multiple Vitamin] Doxycycline [Vibramycin] 100 mg PO BID #28 cap 02/18/19 Lactobacillus Acidophilus/Fos 1 ea PO BID #30 tab 02/18/19 [Acidophilus Probiotic Tablet] fluconazole 200 mg tablet 400 mg PO DAILY 30 Days #60 tab 03/13/19 Paternal Family History: Family History (Last Reviewed 02/21/19 @ 08:45 by Yeimy Li) Grandfather Cancer Father Prostate cancer Grandfather CVA (cerebral vascular accident) Family History: Cancer, - Smoking Status: Unknown if ever smoked Tobacco Use: Non-smoker Alcohol: None Drugs: None Physical Exam Vital Signs Temp Pulse Resp BP Pulse Ox 97.2 F L 71 18 133/96 H 97 04/12/19 08:14 04/12/19 08:14 04/12/19 08:14 04/12/19 08:14 03/17/19 00:43 General: Alert, Oriented x3, Cooperative, No apparent distress HEENT: Atraumatic, PERRLA, TM's Clear, - - Right tympanostomy tube Lungs: Clear to auscultation, Normal air movement, No rhonchi, No wheeze, No rales Cardiovascular: Regular rate, Regular Rhythm, Normal S1, Normal S2, No murmurs Psych/Mental Status: Normal Affect, Alert and oriented to time, place, person, mood and affect Assessment/Plan Active Problems (Last Updated 03/22/19 @ 16:03 by Terra Conteh DO) 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
[2019-04-15 08:18] VITALS: BP 169/76; PULSE 65; RESP 18; TEMP 36.8; BMI 28.4
[2019-04-15 09:45] VITALS: BP 133/82; BP 137/75; PULSE 60; PULSE 67; RESP 16; RESP 18; TEMP 36.2; TEMP 36.5
--- NOTE | 2019-04-15 13:46 | PCM.WC.PN ---
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 History of Wound: Surgery 02/18/19 - 1. Surgical preparation right lateral middle back with excision nonhealing diabetic ulcer. 2. Reconstruction with STSG from right posterior flank (21 cm2) and placement AmnioFill Placental Connective Tissue Powder (250 mg) and placement TAYLOR NPWT. 3. Surgical preparation left lateral middle back with excision nonhealing diabetic ulcer. 4. Reconstruction with STSG from left posterior flank (48 cm2) and placement of AmnioFill Placental Connective Tissue Powder (500 mg) and placement of TAYLOR NPWT. Wound care - Calcium alginate. Operative cultures - MRSE, Staphylococcus epidermidis, and Corynebacterium amycolatum/xer in the left lateral middle back and Corynebacterium amycolatum/xer and Salma albicans in the right lateral middle back. Prealbumin from 12/05/18 was 22.5. Encourage nutritonal supplementation with protein to help the healing process. He developed some compromise to the skin grafts on his back. He has started HBO treatments and has tolerated them thus far. He is having increased pain on his right middle back ulcer. Will send a wound culture today. Depending on the results of the culture, it may necessatate treatment with antibiotics. Today he denies fever. His appetite is good. Progress of Wound: Improved. - Physical Exam Vital Signs Temp Pulse Resp BP Pulse Ox 97.7 F L 67 18 137/75 H 97 04/15/19 09:45 04/15/19 09:45 04/15/19 09:45 04/15/19 09:45 03/17/19 00:43 General: Alert, Oriented x3, Cooperative HEENT: Atraumatic Oral: Moist Mucosa Lungs: Normal air movement Cardiovascular: Regular rate Extremities: Capillary Refill Less than 3 Seconds Skin: Ulcer/ Wound - Right middle back ulcer and left middle back ulcer. Wound Measurements and Assessment WC - Nurse 1 - General Ulcer Measurement Start: 03/18/19 10:37 Freq: Status: Active Protocol: Activity Type Activity Date Activity User E-Sign Co-Sign Detail Recorded Client Recorded Date Recorded By Document 04/15/19 08:18 [id number] 04/15/19 08:25 [facility] 04/15/19 08:18 Wound Center Nurse 1 [Ulcer Assessment] 6. L lumbar back -Combined with other wound No -Current Size (cm) - Length 4.9 -Current Size (cm) - Width 4.5 -Current Size (cm) - Depth 0.2 -Total Square Cm 22.05 -Photo Taken No -Epithelialization Medium 34-66% -Tunneling No -Undermining/Tunneling No -Circular Undermining No -Exudate Amt Medium -Exudate Type Serosanguineous -Wound Margin Flat & Intact -Granulation Amt Medium (34-66%) -Granulation Quality Red -Slough/Fibrin Yes -Necrosis Amt Medium (34-66%) -Necrotic Tissue Type Adherent Slough -Structure Exposed N/A -Texture (Mayra-wound Skin Appearance) Assessed -Moisture (Mayra-wound Skin Appearance Assessed,Dry/ ) Scaly -Color (Mayra-wound Skin Appearance) Assessed -Temperature (Mayra-wound Skin No Abnormality Appearance) (Pt Warm) -Tenderness on Palpation (Mayra-wound No Skin Appearance) -Ulcer Cleansing Rinsed/ Irrigated with Saline -Foul Odor after Cleansing No -Anesthetic Used 4% Lidocaine Solution 5. R scapula -Combined with other wound No -Current Size (cm) - Length 4 -Current Size (cm) - Width 4 -Current Size (cm) - Depth 0.2 -Total Square Cm 16 -Photo Taken No -Epithelialization Small 1-33% -Tunneling No -Undermining/Tunneling No -Circular Undermining No -Exudate Amt Medium -Exudate Type Serosanguineous -Wound Margin Flat & Intact -Granulation Amt Medium (34-66%) -Granulation Quality Red -Slough/Fibrin Yes -Necrosis Amt Medium (34-66%) -Necrotic Tissue Type Adherent Slough -Structure Exposed N/A -Texture (Mayra-wound Skin Appearance) Assessed -Moisture (Mayra-wound Skin Appearance Assessed,Dry/ ) Scaly -Color (Mayra-wound Skin Appearance) Assessed -Temperature (Mayra-wound Skin No Abnormality Appearance) (Pt Warm) -Tenderness on Palpation (Mayra-wound No Skin Appearance) -Ulcer Cleansing Rinsed/ Irrigated with Saline -Foul Odor after Cleansing No -Anesthetic Used 4% Lidocaine Solution [Edema Assessment] -Lower Limb Edema Present NA WC - Nurse 2 - General Ulcer CM Notes Start: 03/18/19 10:37 Freq: Status: Active Protocol: Activity Type Activity Date Activity User E-Sign Co-Sign Detail Recorded Client Recorded Date Recorded By Document 04/15/19 08:47 [facility] [id number] 04/15/19 08:55 [facility] 04/15/19 08:47 Wound Center Nurse 2 [Procedure/Treatment] 6. L lumbar back -Time 08:49 -Correct Patient Yes -Correct Side, Site, Position Yes -Correct Procedure Yes -Procedure Performed Yes -Type of Procedure Debridement -Clinical Debridement Subcutaneous -Post Debridement Size (cm) - Length 8 -Post Debridement Size (cm) - Width 4.6 -Post Debridement Size (cm) - Depth 0.3 -Total Square Cm 36.8 -Wound/Ulcer Outcome Not Healed -Ulcer Cleansing Rinsed/ Irrigated with Saline -Foul Odor after Cleansing No -Bioengineered Tissue No -Bleeding Controlled with Pressure -Offloading No -Treatment Response Procedure Tolerated Well 5. R scapula -Time 08:49 -Correct Patient Yes -Correct Side, Site, Position Yes -Correct Procedure Yes -Procedure Performed Yes -Type of Procedure Debridement -Clinical Debridement Subcutaneous -Post Debridement Size (cm) - Length 6.5 -Post Debridement Size (cm) - Width 2.4 -Post Debridement Size (cm) - Depth 0.4 -Total Square Cm 15.60 -Wound/Ulcer Outcome Not Healed -Ulcer Cleansing Rinsed/ Irrigated with Saline -Foul Odor after Cleansing No -Bioengineered Tissue No -Bleeding Controlled with Pressure -Offloading No -Treatment Response Procedure Tolerated Well [See Physician Procedure note for Specifics] Pain Scale: 0-10 Numeric [Pain] -Is Patient Pain Free? Yes Musculoskeletal: No Tenderness to Palpation of Joints or Extremities Neurological: Neuro grossly intact Psych/Mental Status: Normal Affect, Appropriate Debridement Note Post-Debridement Measurements/Treatment WC - Nurse 2 - General Ulcer CM Notes Start: 03/18/19 10:37 Freq: Status: Active Protocol: Activity Type Activity Date Activity User E-Sign Co-Sign Detail Recorded Client Recorded Date Recorded By Document 03/18/19 11:10 [id number] 03/18/19 11:20 Document 03/25/19 11:09 [id number] 03/25/19 11:23 Document 04/01/19 09:39 [id number] 04/01/19 09:46 Document 04/08/19 09:02 [id number] 04/08/19 09:08 Document 04/15/19 08:47 [id number] 04/15/19 08:55 03/18/19 03/25/19 04/01/19 11:10 11:09 09:39 Wound Center Nurse 2 6. L lumbar back -Time 11:10 11:12 09:40 -Correct Patient Yes Yes Yes -Correct Side, Site, Position Yes Yes Yes -Correct Procedure Yes Yes Yes -Procedure Performed Yes Yes Yes -Type of Procedure Debridement Debridement Debridement -Clinical Debridement Selective Selective Selective -Post Debridement Size (cm) - Length 7 8.5 8 -Post Debridement Size (cm) - Width 7.5 5 4.5 -Post Debridement Size (cm) - Depth 0.3 0.2 0.1 -Total Square Cm 52.5 42.5 36.0 -Wound/Ulcer Outcome Not Healed Not Healed Not Healed -Ulcer Cleansing Rinsed/ Rinsed/ Rinsed/ Irrigated with Irrigated with Irrigated with Saline Saline Saline -Foul Odor after Cleansing No No No -Bioengineered Tissue No No No -Bleeding Controlled with Pressure Pressure Pressure -Offloading No No No -Treatment Response Procedure Procedure Procedure Tolerated Well Tolerated Well Tolerated Well 5. R scapula -Time 11:10 11:12 09:40 -Correct Patient Yes Yes Yes -Correct Side, Site, Position Yes Yes Yes -Correct Procedure Yes Yes Yes -Procedure Performed Yes Yes Yes -Type of Procedure Debridement Debridement Debridement -Clinical Debridement Selective Selective Selective -Post Debridement Size (cm) - Length 4.6 5.7 5.5 -Post Debridement Size (cm) - Width 4.5 3.0 3 -Post Debridement Size (cm) - Depth 0.3 0.4 0.3 -Total Square Cm 20.70 17.10 16.5 -Wound/Ulcer Outcome Not Healed Not Healed Not Healed -Ulcer Cleansing Rinsed/ Rinsed/ Rinsed/ Irrigated with Irrigated with Irrigated with Saline Saline Saline -Foul Odor after Cleansing No No No -Bioengineered Tissue No No No -Bleeding Controlled with Pressure Pressure Pressure -Offloading No No No -Treatment Response Procedure Procedure Procedure Tolerated Well Tolerated Well Tolerated Well Pain Scale: 0-10 Numeric Is Patient Pain Free? Yes Yes Yes 04/08/19 04/15/19 09:02 08:47 Wound Center Nurse 2 6. L lumbar back -Time 09:02 08:49 -Correct Patient Yes Yes -Correct Side, Site, Position Yes Yes -Correct Procedure Yes Yes -Procedure Performed Yes Yes -Type of Procedure Debridement Debridement -Clinical Debridement Subcutaneous Subcutaneous -Post Debridement Size (cm) - Length 8.0 8 -Post Debridement Size (cm) - Width 4.4 4.6 -Post Debridement Size (cm) - Depth 0.1 0.3 -Total Square Cm 35.20 36.8 -Wound/Ulcer Outcome Not Healed Not Healed -Ulcer Cleansing Rinsed/ Rinsed/ Irrigated with Irrigated with Saline Saline -Foul Odor after Cleansing No No -Bioengineered Tissue No No -Bleeding Controlled with Pressure Pressure -Offloading No No -Treatment Response Procedure Procedure Tolerated Well Tolerated Well 5. R scapula -Time 09:03 08:49 -Correct Patient Yes Yes -Correct Side, Site, Position Yes Yes -Correct Procedure Yes Yes -Procedure Performed Yes Yes -Type of Procedure Debridement Debridement -Clinical Debridement Subcutaneous Subcutaneous -Post Debridement Size (cm) - Length 6.7 6.5 -Post Debridement Size (cm) - Width 2.5 2.4 -Post Debridement Size (cm) - Depth 0.2 0.4 -Total Square Cm 16.75 15.60 -Wound/Ulcer Outcome Not Healed Not Healed -Ulcer Cleansing Rinsed/ Rinsed/ Irrigated with Irrigated with Saline Saline -Foul Odor after Cleansing No No -Bioengineered Tissue No No -Bleeding Controlled with Pressure Pressure -Offloading No No -Treatment Response Procedure Procedure Tolerated Well Tolerated Well Pain Scale: 0-10 Numeric Is Patient Pain Free? Yes Yes Wound debrided: middle back ulcer Laterality: Right Type of Debridement: Selective debridement Anesthesia Used: 5% Lidocaine Gel Depth: Down to and including healthy tissue, in the subcutaneous layer Percentage of wound debrided: 30 Instrument Used: 3mm curette Tissue Removed: subcutaneous tissue and slough Severity: Limited To Skin Breakdown Amount of bleeding with debridement: Mild Bleeding Controlled with: Pressure Patient tolerated procedure well - Additional Wound Wound debrided: middle back ulcer Laterality: Left Type of Debridement: Selective debridement Anesthesia Used: 5% Lidocaine Gel Depth: Down to and including healthy tissue, in the subcutaneous layer Percentage of wound debrided: 30 Instrument Used: 3mm curette Tissue Removed: subcutaneous tissue and slough Severity: Limited To Skin Breakdown Amount of bleeding with debridement: Mild Bleeding Controlled with: Pressure Patient tolerated procedure: Patient tolerated procedure well Assessment/Plan Active Problems (Last Updated 04/19/19 @ 13:25 by Terra Conteh DO) Unspecified complication of skin graft (allograft) (autograft) (Chronic) 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 Nonhealing diabetic ulcer right lateral middle back. 2. Nonhealing diabetic ulcer left lateral middle back. 3. Diabetes mellitus. 4. s/p surgical preparation right lateral middle back with excision nonhealing diabetic ulcer and reconstruction with STSG from right posterior flank (21 cm2) and placement AmnioFill Placental Connective Tissue Powder (250 mg) and placement TAYLOR NPWT and surgical preparation left lateral middle back with excision nonhealing diabetic ulcer and reconstruction with STSG from left posterior flank (48 cm2) and placement of AmnioFill Placental Connective Tissue Powder (500 mg) and placement of TAYLOR NPWT. 5. Mild compromised skin grafts. Plan: Continue Calcium Alginate to the compromised areas of both skin graft ulcers. He is tolerating HBO. He will continue the treatments to help salvage the compromised skin grafts. Operative cultures showed Corynebaterium amycolatum/xer and Salma albicans in the right lateral middle back ulcer and MRSE, Staphylococcus epidermidis, and Corynebacterium amycolatum/xer in the left lateral middle back ulcer. He is finishing the Cleocin and will continue the Diflucan. Will need to check a CMP while on Diflucan. He has been having increased pain on his right middle back ulcer, sent a culture. Depending on the results of the culture, it may necessatate treatment with an antibiotic. Prealbumin from 12/05/18 was 22.5. Encourage nutritional supplementation with protein to help the healing process. Followup one week. Code Visit [id number]: [id number] Global Visit
--- NOTE | 2019-04-15 13:46 | PCM.HBO.PN ---
History of Present Illness Date of Service: 04/15/19 Presenting 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: Nonhealing diabetic ulcers left lateral middle back and right lateral middle back with compromised skin grafts. BILL JACQUES is a 58 year old currently undergoing hyperbaric oxygen therapy for Nonhealing diabetic ulcers left lateral middle back and right lateral middle back with compromised skin grafts. Progress: Today represent the patient's 24th hyperbaric oxygen therapy session, of a total planned 40 sessions. Tolerance of hyperbaric oxygen therapy: Hyperbaric oxygen therapy was administered today as per our facility's protocol. The patient is status-post placement of a right tympanic membrane tube on Monday03/19/19. The patient tolerated hyperbaric oxygen therapy well today, without complaints or complications. Vital signs were stable following his hyperbaric session. He was discharged in good condition. 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 Trigger finger, left ring finger (Chronic) Hypertension (Chronic) Neuroma (Chronic) Allergies/Adverse Reactions: Allergies No Known Allergies Allergy (Verified 02/21/19 08:44) Home Medications: Ambulatory Orders Medication Instructions Recorded albuterol sulfate 90 mcg/actuation 2 puff INHALATION Q6H PRN 11/22/17 aerosol inhaler Multivitamin with Minerals 1 ea PO DAILY 02/14/19 [Multiple Vitamin] Doxycycline [Vibramycin] 100 mg PO BID #28 cap 02/18/19 Lactobacillus Acidophilus/Fos 1 ea PO BID #30 tab 02/18/19 [Acidophilus Probiotic Tablet] fluconazole 200 mg tablet 400 mg PO DAILY 30 Days #60 tab 03/13/19 Paternal Family History: Family History (Last Reviewed 02/21/19 @ 08:45 by Yeimy Li) Grandfather Cancer Father Prostate cancer Grandfather CVA (cerebral vascular accident) Family History: Cancer, - Smoking Status: Unknown if ever smoked Tobacco Use: Non-smoker Alcohol: None Drugs: None Physical Exam Vital Signs Temp Pulse Resp BP Pulse Ox 97.7 F L 67 18 137/75 H 97 04/15/19 09:45 04/15/19 09:45 04/15/19 09:45 04/15/19 09:45 03/17/19 00:43 General: Alert, Oriented x3, Cooperative HEENT: Atraumatic, TM's Clear - right ear tube visualized Lungs: Clear to auscultation, Normal air movement Cardiovascular: Regular rate, Regular Rhythm Psych/Mental Status: Normal Affect, Appropriate Assessment/Plan Active Problems (Last Updated 03/22/19 @ 16:03 by Terra Conteh DO) 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 Code Visit 64553
[2019-04-16 08:31] VITALS: BP 127/80; BP 128/83; PULSE 56; PULSE 63; RESP 16; RESP 18; TEMP 36.1; TEMP 36.3
--- NOTE | 2019-04-16 13:58 | PCM.HBO.PN ---
History of Present Illness Date of Service: 04/16/19 Presenting 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: Nonhealing diabetic ulcers left lateral middle back and right lateral middle back with compromised skin grafts. BILL JACQUES is a 58 year old currently undergoing hyperbaric oxygen therapy for non-healing diabetic ulcers left lateral middle back and right lateral middle back with compromised skin grafts. Progress: Today represent the patient's 25th hyperbaric oxygen therapy session, of a total planned 40 sessions. Tolerance of hyperbaric oxygen therapy: Hyperbaric oxygen therapy was administered today as per our facility's protocol. The patient is status-post placement of a right tympanic membrane tube on Monday03/19/19. The patient tolerated hyperbaric oxygen therapy well today, without complaints or complications. The treatment protocol today for hyperbaric oxygen therapy was a total of 90 minutes at 2 manda, with no air breaks. Vital signs were stable following his hyperbaric session. He was discharged in good condition. 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 Trigger finger, left ring finger (Chronic) Hypertension (Chronic) Neuroma (Chronic) Allergies/Adverse Reactions: Allergies No Known Allergies Allergy (Verified 02/21/19 08:44) Home Medications: Ambulatory Orders Medication Instructions Recorded albuterol sulfate 90 mcg/actuation 2 puff INHALATION Q6H PRN 11/22/17 aerosol inhaler Multivitamin with Minerals 1 ea PO DAILY 02/14/19 [Multiple Vitamin] Doxycycline [Vibramycin] 100 mg PO BID #28 cap 02/18/19 Lactobacillus Acidophilus/Fos 1 ea PO BID #30 tab 02/18/19 [Acidophilus Probiotic Tablet] fluconazole 200 mg tablet 400 mg PO DAILY 30 Days #60 tab 03/13/19 Paternal Family History: Family History (Last Reviewed 02/21/19 @ 08:45 by Yeimy Li) Grandfather Cancer Father Prostate cancer Grandfather CVA (cerebral vascular accident) Family History: Cancer, - Smoking Status: Unknown if ever smoked Tobacco Use: Non-smoker Alcohol: None Drugs: None Physical Exam Vital Signs Temp Pulse Resp BP Pulse Ox 97.3 F L 63 18 127/80 H 97 04/16/19 08:31 04/16/19 08:31 04/16/19 08:31 04/16/19 08:31 03/17/19 00:43 General: Alert, Oriented x3, Cooperative, No apparent distress, Well developed, Well nourished HEENT: Atraumatic, PERRLA, EOMI, Normocephalic Lungs: Normal air movement Psych/Mental Status: Normal Affect, Appropriate, Alert and oriented to time, place, person, mood and affect Assessment/Plan Active Problems (Last Updated 03/22/19 @ 16:03 by Terra Conteh DO) 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
== END 2019-04-16 23:59 ==
LOC: WC 08:00
PROVIDERS: Family Provider Family Medicine; PCP Family Medicine; Visit Provider Nurse Practitioner Family
DX: E11.622 Type 2 diabetes mellitus with other skin ulcer (principal); T86.821 Skin graft (allograft) (autograft) failure; L98.422 Non-pressure chronic ulcer of back with fat layer exposed; Y83.2 Surgical operation with anastomosis, bypass or graft as the cause of abnormal reaction of the patient, or of later complication, without mention of misadventure at the time of the procedure; L98.421 Non-pressure chronic ulcer of back limited to breakdown of skin
CPT/HCPCS: 11042; 11045; 87070; 87075; 87077; 87186; 87205; 97597; 97598; 99183; G0277

== ENCOUNTER → 2019-04-18 11:13 | Outpatient (CLI) | payer OTHER, SELFPAY ==
[2019-04-15 08:18] VITALS: BMI 28.4
[2019-04-18 13:00] LABS: ALB/GLOB Ratio 1.1 RATIO (0.9-2.4); AST(SGOT) 22 U/L (15-37); Alanine Aminotransfer ALT/SGPT 40 U/L (16-61); Albumin, Serum 3.8 g/dL (3.2-5.0); Alkaline Phosphatase 24 U/L (45-117); Anion Gap 4 (5-15); BUN 29 mg/dL (7-18); BUN/Creat Ratio 26.1 RATIO (10-20); Calcium,Total 9.1 mg/dL (8.5-10.1); Chloride 108 mmol/L (98-107); Creatinine, Serum 1.11 mg/dL (0.70-1.30); EST Glomerular Filtration Rate 72 mL/min (>60); Est Glom Filt Rate - Afr Amer 87 mL/min (>60); Globulin 3.6 g/dL (2.2-4.2); Glucose 84 mg/dL (74-106); Protein, Total 7.4 g/dL (6.4-8.2); Sodium Level 142 mmol/L (136-145)
== END ==
PROVIDERS: Family Provider Family Medicine; PCP Family Medicine; Referring Provider Nurse Practitioner Family; Visit Provider Nurse Practitioner Family
DX: L98.429 Non-pressure chronic ulcer of back with unspecified severity (principal)
CPT/HCPCS: 36415; 80053

== ENCOUNTER → 2019-04-25 11:43 | Outpatient (CLI) | payer OTHER, SELFPAY ==
[2019-04-25 10:31] VITALS: BMI 28.4
--- NOTE | 2019-04-25 11:45 | RAD_ITS ---
STUDY: X-RAY - LUMBAR SPINE REASON FOR EXAM: Male, 58 years old. mid to low back pain, feels a lump TECHNIQUE: 3 view(s) of the lumbar spine were obtained. COMPARISON: 01/20/2017 FINDINGS: Normal lumbar lordosis. There is no substantial scoliosis. There is a normal alignment of the vertebrae. There is mild multilevel endplate spondylosis of the lumbar vertebrae. There is mild multi-level degenerative disc disease with multi-level disc space narrowing. There is no demonstrated fracture. There is atherosclerotic calcification of the abdominal aorta without a demonstrated aneurysm. RAD/Lumbar Spine 2 or 3 Views IMPRESSION: No change and no acute abnormality. Mild degenerative changes. Electronically Signed: João Laughlin MD at 18:31 EST , Service support ,
== END ==
PROVIDERS: Family Provider Family Medicine; PCP Family Medicine; Referring Provider Nurse Practitioner Family; Visit Provider Nurse Practitioner Family
DX: M54.5 Low back pain (principal)
CPT/HCPCS: 72100

== ENCOUNTER 2019-05-13 08:00 | Outpatient (RCR) | payer OTHER, SELFPAY ==
[2019-04-15 08:18] VITALS: BMI 28.4
[2019-04-17 00:35] VITALS: BP 128/83; PULSE 56; RESP 16; TEMP 36.1; O2SAT 97
[2019-04-18 08:38] VITALS: BP 121/79; BP 127/82; PULSE 68; PULSE 77; RESP 16; RESP 18; TEMP 36.5; TEMP 36.7
--- NOTE | 2019-04-18 13:04 | PCM.HBO.PN ---
History of Present Illness Date of Service: 04/18/19 Presenting 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: Nonhealing diabetic ulcers left lateral middle back and right lateral middle back with compromised skin grafts. BILL JACQUES is a 58 year old currently undergoing hyperbaric oxygen therapy for Progress: Tolerance of hyperbaric oxygen therapy: Tolerating hyperbaric oxygen therapy #26 without problems vital signs stable 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 Trigger finger, left ring finger (Chronic) Hypertension (Chronic) Neuroma (Chronic) Allergies/Adverse Reactions: Allergies No Known Allergies Allergy (Verified 02/21/19 08:44) Home Medications: Ambulatory Orders Medication Instructions Recorded albuterol sulfate 90 mcg/actuation 2 puff INHALATION Q6H PRN 11/22/17 aerosol inhaler Multivitamin with Minerals 1 ea PO DAILY 02/14/19 [Multiple Vitamin] Doxycycline [Vibramycin] 100 mg PO BID #28 cap 02/18/19 Lactobacillus Acidophilus/Fos 1 ea PO BID #30 tab 02/18/19 [Acidophilus Probiotic Tablet] fluconazole 200 mg tablet 400 mg PO DAILY 30 Days #60 tab 03/13/19 Paternal Family History: Family History (Last Reviewed 02/21/19 @ 08:45 by Yeimy Li) Grandfather Cancer Father Prostate cancer Grandfather CVA (cerebral vascular accident) Family History: Cancer, - Smoking Status: Unknown if ever smoked Tobacco Use: Non-smoker Physical Exam Vital Signs Temp Pulse Resp BP Pulse Ox 98.0 F 77 18 127/82 H 97 04/18/19 08:38 04/18/19 08:38 04/18/19 08:38 04/18/19 08:38 04/17/19 00:35 Assessment/Plan Active Problems (Last Updated 03/22/19 @ 16:03 by Terra Conteh DO) Diabetes (Chronic) Nonhealing surgical wound (Chronic) right lateral middle back and left lateral middle back after excision of nonhealing diabetic ulcers with skin flap reconstruction Continue hyperbaric oxygen therapy
[2019-04-19 08:36] VITALS: BP 128/84; BP 137/87; PULSE 54; PULSE 61; RESP 16; RESP 18; TEMP 36.1; TEMP 36.2
--- NOTE | 2019-04-19 13:18 | HBO.PN.PCM_ITS ---
History of Present Illness Date of Service: 04/19/19 Presenting 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: Nonhealing diabetic ulcers left lateral middle back and right lateral middle back with compromised skin grafts. BILL JACQUES is a 58 year old currently undergoing hyperbaric oxygen therapy for nonhealing diabetic ulcers of his left lateral mid-back and right lateral mid-back with compromised skin grafts. Progress: Today represents the patient's 27th hyperbaric oxygen therapy session of a total planned 40 sessions. Tolerance of hyperbaric oxygen therapy: Hyperbaric oxygen therapy was administered today as per our facility's protocol. The patient is status-post placement of a right tympanic membrane tube on Monday03/19/19. Hyperbaric oxygen therapy was administered for a total of 90 minutes at 2.0 HAO without any air breaks. The patient tolerated hyperbaric oxygen therapy well without complaints or complications. Vital signs were stable and he was discharged in good condition. See clinical panel for blood sugars. 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 Trigger finger, left ring finger (Chronic) Hypertension (Chronic) Neuroma (Chronic) Allergies/Adverse Reactions: Allergies No Known Allergies Allergy (Verified 02/21/19 08:44) Home Medications: Ambulatory Orders Medication Instructions Recorded albuterol sulfate 90 mcg/actuation 2 puff INHALATION Q6H PRN 11/22/17 aerosol inhaler Multivitamin with Minerals 1 ea PO DAILY 02/14/19 [Multiple Vitamin] Doxycycline [Vibramycin] 100 mg PO BID #28 cap 02/18/19 Lactobacillus Acidophilus/Fos 1 ea PO BID #30 tab 02/18/19 [Acidophilus Probiotic Tablet] fluconazole 200 mg tablet 400 mg PO DAILY 30 Days #60 tab 03/13/19 linezolid 600 mg tablet 600 mg PO Q12H 30 Days #60 tab 04/18/19 Paternal Family History: Family History (Last Reviewed 02/21/19 @ 08:45 by Yeimy Li) Grandfather Cancer Father Prostate cancer Grandfather CVA (cerebral vascular accident) Family History: Cancer, - Lives: Spouse/ Significant Other Smoking Status: Unknown if ever smoked Tobacco Use: Non-smoker Alcohol: None Drugs: None Physical Exam Vital Signs Temp Pulse Resp BP Pulse Ox 97.1 F L 54 L 18 128/84 H 97 04/19/19 08:36 04/19/19 08:36 04/19/19 08:36 04/19/19 08:36 04/17/19 00:35 General: Alert, Oriented x3, Cooperative, No apparent distress Psych/Mental Status: Normal Affect, Appropriate Assessment/Plan Active Problems (Last Updated 04/18/19 @ 13:05 by Sophie Garcia APPLICATION CONSULTANT-C) 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
[2019-04-22 08:26] VITALS: BMI 28.4
--- NOTE | 2019-04-22 14:41 | PCM.WC.PN ---
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 Current Visit: Yes Code(s): T86.829 - Unspecified complication of skin graft (allograft) (autograft) (3) Skin graft (allograft) (autograft) failure Status: Chronic Current Visit: Yes Code(s): T86.821 - Skin graft (allograft) (autograft) failure (4) Diabetes Status: Chronic Current Visit: No Code(s): E11.9 - Type 2 diabetes mellitus without complications Type of Wound Date of Service: 04/22/19 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: Nonhealing diabetic ulcers left lateral middle back and right lateral middle back with compromised skin grafts. History of Wound: Surgery 02/18/19 - 1. Surgical preparation right lateral middle back with excision nonhealing diabetic ulcer. 2. Reconstruction with STSG from right posterior flank (21 cm2) and placement AmnioFill Placental Connective Tissue Powder (250 mg) and placement TAYLOR NPWT. 3. Surgical preparation left lateral middle back with excision nonhealing diabetic ulcer. 4. Reconstruction with STSG from left posterior flank (48 cm2) and placement of AmnioFill Placental Connective Tissue Powder (500 mg) and placement of TAYLOR NPWT. Wound care - Calcium alginate. Operative cultures - MRSE, Staphylococcus epidermidis, and Corynebacterium amycolatum/xer in the left lateral middle back and Corynebacterium amycolatum/xer and Salma albicans in the right lateral middle back. Prealbumin from 12/05/18 was 22.5. Encourage nutritonal supplementation with protein to help the healing process. He developed some compromise to the skin grafts on his back. He has started HBO treatments and has tolerated them thus far. Today he denies fever. His appetite is good. Progress of Wound: Right improved, left is stable. - Physical Exam Vital Signs Temp Pulse Resp BP Pulse Ox 97.1 F L 54 L 18 128/84 H 97 04/19/19 08:36 04/19/19 08:36 04/19/19 08:36 04/19/19 08:36 04/17/19 00:35 General: Alert, Oriented x3, Cooperative HEENT: Atraumatic Oral: Moist Mucosa Lungs: Normal air movement Cardiovascular: Regular rate Extremities: Capillary Refill Less than 3 Seconds Skin: Ulcer/ Wound - Right middle back ulcer and left middle back ulcer Wound Measurements and Assessment WC - Nurse 1 - General Ulcer Measurement Start: 04/18/19 08:38 Freq: Status: Active Protocol: Activity Type Activity Date Activity User E-Sign Co-Sign Detail Recorded Client Recorded Date Recorded By Document 04/22/19 08:26 MW [id number] 04/22/19 08:37 MW 04/22/19 08:26 Wound Center Nurse 1 [Ulcer Assessment] 6. L lumbar back -Combined with other wound No -Current Size (cm) - Length 6.5 -Current Size (cm) - Width 7.5 -Current Size (cm) - Depth 0.1 -Total Square Cm 48.75 -Date of Last Picture (Recall this 04/22/19 field) -Photo Taken Yes -Epithelialization Small 1-33% -Tunneling No -Undermining/Tunneling No -Circular Undermining No -Exudate Amt Small -Exudate Type Serosanguineous -Wound Margin Flat & Intact -Granulation Amt Large (67-100%) -Granulation Quality Red -Slough/Fibrin Yes -Necrosis Amt Small (1-33%) -Necrotic Tissue Type Adherent Slough -Structure Exposed N/A -Texture (Mayra-wound Skin Appearance) Assessed, Scarring -Moisture (Mayra-wound Skin Appearance No Abnormality, ) Assessed -Color (Mayra-wound Skin Appearance) No Abnormality, Assessed -Temperature (Mayra-wound Skin No Abnormality Appearance) (Pt Warm) -Tenderness on Palpation (Mayra-wound No Skin Appearance) -Foul Odor after Cleansing No -Anesthetic Used 5% Lidocaine Gel 5. R scapula -Combined with other wound No -Current Size (cm) - Length 3.5 -Current Size (cm) - Width 4.5 -Current Size (cm) - Depth 0.2 -Total Square Cm 15.75 -Date of Last Picture (Recall this 04/22/19 field) -Photo Taken Yes -Epithelialization Small 1-33% -Tunneling No -Undermining/Tunneling No -Circular Undermining No -Exudate Amt Small -Exudate Type Serosanguineous -Wound Margin Flat & Intact -Granulation Amt Large (67-100%) -Granulation Quality Red -Slough/Fibrin Yes -Necrosis Amt Small (1-33%) -Necrotic Tissue Type Adherent Slough -Structure Exposed N/A -Texture (Mayra-wound Skin Appearance) Assessed, Scarring -Moisture (Mayra-wound Skin Appearance No Abnormality, ) Assessed -Color (Mayra-wound Skin Appearance) No Abnormality, Assessed -Temperature (Mayra-wound Skin No Abnormality Appearance) (Pt Warm) -Tenderness on Palpation (Mayra-wound No Skin Appearance) -Ulcer Cleansing Rinsed/ Irrigated with Saline -Foul Odor after Cleansing No -Anesthetic Used 5% Lidocaine Gel [Edema Assessment] -Lower Limb Edema Present No WC - Nurse 2 - General Ulcer CM Notes Start: 04/18/19 08:38 Freq: Status: Active Protocol: Activity Type Activity Date Activity User E-Sign Co-Sign Detail Recorded Client Recorded Date Recorded By Document 04/22/19 08:53 [facility] [id number] 04/22/19 09:02 [facility] 04/22/19 08:53 Wound Center Nurse 2 [Procedure/Treatment] 6. L lumbar back -Time 08:53 -Correct Patient Yes -Correct Side, Site, Position Yes -Correct Procedure Yes -Procedure Performed Yes -Type of Procedure Debridement -Clinical Debridement Subcutaneous -Post Debridement Size (cm) - Length 8.0 -Post Debridement Size (cm) - Width 4.7 -Post Debridement Size (cm) - Depth 0.2 -Total Square Cm 37.60 -Wound/Ulcer Outcome Not Healed -Ulcer Cleansing Rinsed/ Irrigated with Saline -Foul Odor after Cleansing No -Bioengineered Tissue No -Bleeding Controlled with Pressure -Offloading No -Treatment Response Procedure Tolerated Well 5. R scapula -Time 08:54 -Correct Patient Yes -Correct Side, Site, Position Yes -Correct Procedure Yes -Procedure Performed Yes -Type of Procedure Debridement -Clinical Debridement Subcutaneous -Post Debridement Size (cm) - Length 5.7 -Post Debridement Size (cm) - Width 1.8 -Post Debridement Size (cm) - Depth 0.2 -Total Square Cm 10.26 -Wound/Ulcer Outcome Not Healed -Ulcer Cleansing Rinsed/ Irrigated with Saline -Foul Odor after Cleansing No -Bioengineered Tissue No -Bleeding Controlled with Pressure -Offloading No -Treatment Response Procedure Tolerated Well [See Physician Procedure note for Specifics] Pain Scale: 0-10 Numeric [Pain] -Is Patient Pain Free? Yes Musculoskeletal: No Muscle Wasting Neurological: Neuro grossly intact Psych/Mental Status: Normal Affect, Appropriate Debridement Note Post-Debridement Measurements/Treatment WC - Nurse 2 - General Ulcer CM Notes Start: 04/18/19 08:38 Freq: Status: Active Protocol: Activity Type Activity Date Activity User E-Sign Co-Sign Detail Recorded Client Recorded Date Recorded By Document 04/22/19 08:53 [id number] 04/22/19 09:02 [facility] 04/22/19 08:53 Wound Center Nurse 2 6. L lumbar back -Time 08:53 -Correct Patient Yes -Correct Side, Site, Position Yes -Correct Procedure Yes -Procedure Performed Yes -Type of Procedure Debridement -Clinical Debridement Subcutaneous -Post Debridement Size (cm) - Length 8.0 -Post Debridement Size (cm) - Width 4.7 -Post Debridement Size (cm) - Depth 0.2 -Total Square Cm 37.60 -Wound/Ulcer Outcome Not Healed -Ulcer Cleansing Rinsed/ Irrigated with Saline -Foul Odor after Cleansing No -Bioengineered Tissue No -Bleeding Controlled with Pressure -Offloading No -Treatment Response Procedure Tolerated Well 5. R scapula -Time 08:54 -Correct Patient Yes -Correct Side, Site, Position Yes -Correct Procedure Yes -Procedure Performed Yes -Type of Procedure Debridement -Clinical Debridement Subcutaneous -Post Debridement Size (cm) - Length 5.7 -Post Debridement Size (cm) - Width 1.8 -Post Debridement Size (cm) - Depth 0.2 -Total Square Cm 10.26 -Wound/Ulcer Outcome Not Healed -Ulcer Cleansing Rinsed/ Irrigated with Saline -Foul Odor after Cleansing No -Bioengineered Tissue No -Bleeding Controlled with Pressure -Offloading No -Treatment Response Procedure Tolerated Well Pain Scale: 0-10 Numeric Is Patient Pain Free? Yes Wound debrided: middle back ulcer Laterality: Right Type of Debridement: Excisional debridement Anesthesia Used: 5% Lidocaine Gel Depth: Down to and including healthy tissue, in the subcutaneous layer Percentage of wound debrided: 100 Instrument Used: 3mm curette Tissue Removed: subcutaneous tissue and slough Severity: Fat Layer Exposed Amount of bleeding with debridement: Mild Bleeding Controlled with: Pressure Patient tolerated procedure well - Additional Wound Wound debrided: middle back ulcer Laterality: Left Type of Debridement: Excisional debridement Anesthesia Used: 5% Lidocaine Gel Depth: Down to and including healthy tissue, in the subcutaneous layer Percentage of wound debrided: 100 Instrument Used: 3mm curette Tissue Removed: subcutaneous tissue and slough Severity: Fat Layer Exposed Amount of bleeding with debridement: Mild Bleeding Controlled with: Pressure Patient tolerated procedure: Patient tolerated procedure well Assessment/Plan Active Problems (Last Updated 04/19/19 @ 13:25 by Terra Conteh DO) Unspecified complication of skin graft (allograft) (autograft) (Chronic) 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 Nonhealing diabetic ulcer right lateral middle back. 2. Nonhealing diabetic ulcer left lateral middle back. 3. Diabetes mellitus. 4. s/p surgical preparation right lateral middle back with excision nonhealing diabetic ulcer and reconstruction with STSG from right posterior flank (21 cm2) and placement AmnioFill Placental Connective Tissue Powder (250 mg) and placement TAYLOR NPWT and surgical preparation left lateral middle back with excision nonhealing diabetic ulcer and reconstruction with STSG from left posterior flank (48 cm2) and placement of AmnioFill Placental Connective Tissue Powder (500 mg) and placement of TAYLOR NPWT. 5. Mild compromised skin grafts. Plan: Continue Calcium Alginate to the compromised areas of both skin graft ulcers. He is tolerating HBO. He will continue the treatments to help salvage the compromised skin grafts. Operative cultures showed Corynebaterium amycolatum/xer and Salma albicans in the right lateral middle back ulcer and MRSE, Staphylococcus epidermidis, and Corynebacterium amycolatum/xer in the left lateral middle back ulcer. He is finishing the Cleocin and will continue the Diflucan. Checked a CMP on 04/18/19 which was normal. Will continue to monitor while on Diflucan. Wound culture from 04/15/19 positive for resistant Staphylococcus epidermidis. Started him on Linzolid. Prealbumin from 12/05/18 was 22.5. Encourage nutritional supplementation with protein to help the healing process. He is having issues with headache today and is going to not do his HBOT today. Followup one week. Code Visit [id number]
[2019-04-23 12:13] VITALS: BP 126/72; BP 135/76; PULSE 69; PULSE 80; RESP 16; RESP 18; TEMP 36.2; TEMP 36.6
--- NOTE | 2019-04-23 12:48 | PCM.HBO.PN ---
History of Present Illness Date of Service: 04/23/19 Presenting 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: Nonhealing diabetic ulcers left lateral middle back and right lateral middle back with compromised skin grafts. BILL JACQUES is a 58 year old currently undergoing hyperbaric oxygen therapy for nonhealing diabetic ulcers of his left lateral mid-back and right lateral mid-back with compromised skin grafts. Progress: Today represents the patient's 28th hyperbaric oxygen therapy session of a total planned 40 sessions. Tolerance of hyperbaric oxygen therapy: Hyperbaric oxygen therapy was administered today as per our facility's protocol. The patient is status-post placement of a right tympanic membrane tube on Monday03/19/19. Hyperbaric oxygen therapy was administered for a total of 90 minutes at 2.0 HAO without any air breaks. The patient tolerated hyperbaric oxygen therapy well without complaints or complications. Vital signs were stable and he was discharged in good condition. 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 Trigger finger, left ring finger (Chronic) Hypertension (Chronic) Neuroma (Chronic) Allergies/Adverse Reactions: Allergies No Known Allergies Allergy (Verified 02/21/19 08:44) Home Medications: Ambulatory Orders Medication Instructions Recorded albuterol sulfate 90 mcg/actuation 2 puff INHALATION Q6H PRN 11/22/17 aerosol inhaler Multivitamin with Minerals 1 ea PO DAILY 02/14/19 [Multiple Vitamin] Doxycycline [Vibramycin] 100 mg PO BID #28 cap 02/18/19 Lactobacillus Acidophilus/Fos 1 ea PO BID #30 tab 02/18/19 [Acidophilus Probiotic Tablet] fluconazole 200 mg tablet 400 mg PO DAILY 30 Days #60 tab 03/13/19 linezolid 600 mg tablet 600 mg PO Q12H 30 Days #60 tab 04/18/19 Paternal Family History: Family History (Last Reviewed 02/21/19 @ 08:45 by Yeimy Li) Grandfather Cancer Father Prostate cancer Grandfather CVA (cerebral vascular accident) Family History: Cancer, - Lives: Spouse/ Significant Other Smoking Status: Unknown if ever smoked Tobacco Use: Non-smoker Alcohol: None Drugs: None Physical Exam Vital Signs Temp Pulse Resp BP Pulse Ox 97.8 F 80 18 126/72 H 97 04/23/19 12:13 04/23/19 12:13 04/23/19 12:13 04/23/19 12:13 04/17/19 00:35 General: Alert, Oriented x3, Cooperative, No apparent distress, Well developed, Well nourished HEENT: Atraumatic, PERRLA, EOMI, Normocephalic Lungs: Normal air movement Psych/Mental Status: Normal Affect, Appropriate, Alert and oriented to time, place, person, mood and affect Assessment/Plan Active Problems (Last Updated 04/19/19 @ 13:25 by Terra Conteh DO) Unspecified complication of skin graft (allograft) (autograft) (Chronic) 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
[2019-04-25 10:31] VITALS: BMI 28.4
[2019-04-25 14:07] VITALS: BP 130/81; BP 141/81; PULSE 59; PULSE 83; RESP 16; RESP 18; TEMP 36.3; TEMP 36.5
--- NOTE | 2019-04-25 17:01 | PCM.HBO.PN ---
History of Present Illness Date of Service: 04/25/19 Presenting 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: Nonhealing diabetic ulcers left lateral middle back and right lateral middle back with compromised skin grafts. BILL JACQUES is a 58 year old currently undergoing hyperbaric oxygen therapy for nonhealing diabetic ulcers of his left lateral mid-back and right lateral mid-back with compromised skin grafts. Progress: Today represents the patient's 29th hyperbaric oxygen therapy session of a total planned 40 sessions. Tolerance of hyperbaric oxygen therapy: Hyperbaric oxygen therapy was administered today as per our facility's protocol. The patient is status-post placement of a right tympanic membrane tube on Monday03/19/19. Hyperbaric oxygen therapy was administered for a total of 90 minutes at 2.0 HAO without any air breaks. The patient tolerated hyperbaric oxygen therapy well without complaints or complications. Vital signs were stable and he was discharged in good condition. 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 Trigger finger, left ring finger (Chronic) Hypertension (Chronic) Neuroma (Chronic) Allergies/Adverse Reactions: Allergies No Known Allergies Allergy (Verified 02/21/19 08:44) Home Medications: Ambulatory Orders Medication Instructions Recorded albuterol sulfate 90 mcg/actuation 2 puff INHALATION Q6H PRN 11/22/17 aerosol inhaler Multivitamin with Minerals 1 ea PO DAILY 02/14/19 [Multiple Vitamin] Lactobacillus Acidophilus/Fos 1 ea PO BID #30 tab 02/18/19 [Acidophilus Probiotic Tablet] fluconazole 200 mg tablet 400 mg PO DAILY 30 Days #60 tab 03/13/19 linezolid 600 mg tablet 600 mg PO Q12H 30 Days #60 tab 04/18/19 diclofenac sodium 1 % topical gel 2 g TOPICAL ONCE 04/25/19 Paternal Family History: Family History (Last Reviewed 02/21/19 @ 08:45 by Yeimy Li) Grandfather Cancer Father Prostate cancer Grandfather CVA (cerebral vascular accident) Family History: Cancer, - Lives: Spouse/ Significant Other Smoking Status: Unknown if ever smoked Tobacco Use: Non-smoker Alcohol: None Drugs: None Physical Exam Vital Signs Temp Pulse Resp BP Pulse Ox 97.4 F L 59 L 18 141/81 H 97 04/25/19 14:07 04/25/19 14:07 04/25/19 14:07 04/25/19 14:04/17/19 00:35 General: Alert, Oriented x3, Cooperative, No apparent distress HEENT: Atraumatic, PERRLA, EOMI, Normocephalic, TM's Clear - Tympanostomy tube right ear, EAC Clear Lungs: Clear to auscultation, Normal air movement, No rhonchi, No wheeze, No rales Cardiovascular: Regular rate, Regular Rhythm, Normal S1, Normal S2, No murmurs Psych/Mental Status: Normal Affect, Appropriate, Alert and oriented to time, place, person, mood and affect Assessment/Plan Active Problems (Last Updated 04/19/19 @ 13:25 by Terra Conteh DO) Unspecified complication of skin graft (allograft) (autograft) (Chronic) 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
[2019-04-26 10:09] VITALS: BP 111/78; BP 124/75; PULSE 72; PULSE 73; RESP 16; RESP 18; TEMP 36.2; TEMP 36.3
--- NOTE | 2019-04-26 14:53 | PCM.HBO.PN ---
History of Present Illness Date of Service: 04/26/19 Presenting 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: Nonhealing diabetic ulcers left lateral middle back and right lateral middle back with compromised skin grafts. BILL JACQUES is a 58 year old currently undergoing hyperbaric oxygen therapy for nonhealing diabetic ulcers of his left lateral mid-back and right lateral mid-back with compromised skin grafts. Progress: Today represents the patient's 30th hyperbaric oxygen therapy session of a total planned 40 sessions. Tolerance of hyperbaric oxygen therapy: Hyperbaric oxygen therapy was administered today as per our facility's protocol. The patient is status-post placement of a right tympanic membrane tube on Monday03/19/19. Hyperbaric oxygen therapy was administered for a total of 90 minutes at 2.0 HAO without any air breaks. The patient tolerated hyperbaric oxygen therapy well without complaints or complications. Vital signs were stable and he was discharged in good condition. 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 Trigger finger, left ring finger (Chronic) Hypertension (Chronic) Neuroma (Chronic) Allergies/Adverse Reactions: Allergies No Known Allergies Allergy (Verified 02/21/19 08:44) Home Medications: Ambulatory Orders Medication Instructions Recorded albuterol sulfate 90 mcg/actuation 2 puff INHALATION Q6H PRN 11/22/17 aerosol inhaler Multivitamin with Minerals 1 ea PO DAILY 02/14/19 [Multiple Vitamin] Lactobacillus Acidophilus/Fos 1 ea PO BID #30 tab 02/18/19 [Acidophilus Probiotic Tablet] fluconazole 200 mg tablet 400 mg PO DAILY 30 Days #60 tab 03/13/19 linezolid 600 mg tablet 600 mg PO Q12H 30 Days #60 tab 04/18/19 diclofenac sodium 1 % topical gel 2 g TOPICAL ONCE 04/25/19 Paternal Family History: Family History (Last Reviewed 02/21/19 @ 08:45 by Yeimy Li) Grandfather Cancer Father Prostate cancer Grandfather CVA (cerebral vascular accident) Family History: Cancer, - Lives: Spouse/ Significant Other Smoking Status: Unknown if ever smoked Tobacco Use: Non-smoker Alcohol: None Drugs: None Physical Exam Vital Signs Temp Pulse Resp BP Pulse Ox 97.4 F L 73 18 124/75 H 97 04/26/19 10:04/26/19 10:04/26/19 10:04/26/19 10:04/17/19 00:35 General: Alert, Oriented x3, Cooperative, No apparent distress Psych/Mental Status: Normal Affect, Appropriate Assessment/Plan Active Problems (Last Updated 04/19/19 @ 13:25 by Terra Conteh DO) Unspecified complication of skin graft (allograft) (autograft) (Chronic) 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
[2019-04-29 08:22] VITALS: BP 134/74; PULSE 54; RESP 18; BMI 28.4
[2019-04-29 10:51] VITALS: BP 110/86; BP 113/65; PULSE 76; PULSE 77; RESP 16; TEMP 36.2; TEMP 36.3
--- NOTE | 2019-04-29 14:11 | PCM.HBO.PN ---
History of Present Illness Date of Service: 04/29/19 Presenting 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: Nonhealing diabetic ulcers left lateral middle back and right lateral middle back with compromised skin grafts. BILL JACQUES is a 58 year old currently undergoing hyperbaric oxygen therapy for nonhealing diabetic ulcers of his left lateral mid-back and right lateral mid-back with compromised skin grafts. Progress: Today represents the patient's 31 st hyperbaric oxygen therapy session of a total planned 40 sessions. Tolerance of hyperbaric oxygen therapy: Hyperbaric oxygen therapy was administered today as per our facility's protocol. The patient is status-post placement of a right tympanic membrane tube on Monday03/19/19. Hyperbaric oxygen therapy was administered for a total of 90 minutes at 2.0 HAO without any air breaks. The patient tolerated hyperbaric oxygen therapy well without complaints or complications. Vital signs were stable and he was discharged in good condition. 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 Trigger finger, left ring finger (Chronic) Hypertension (Chronic) Neuroma (Chronic) Allergies/Adverse Reactions: Allergies No Known Allergies Allergy (Verified 02/21/19 08:44) Home Medications: Ambulatory Orders Medication Instructions Recorded albuterol sulfate 90 mcg/actuation 2 puff INHALATION Q6H PRN 11/22/17 aerosol inhaler Multivitamin with Minerals 1 ea PO DAILY 02/14/19 [Multiple Vitamin] Lactobacillus Acidophilus/Fos 1 ea PO BID #30 tab 02/18/19 [Acidophilus Probiotic Tablet] fluconazole 200 mg tablet 400 mg PO DAILY 30 Days #60 tab 03/13/19 linezolid 600 mg tablet 600 mg PO Q12H 30 Days #60 tab 04/18/19 diclofenac sodium 1 % topical gel 2 g TOPICAL ONCE 04/25/19 Paternal Family History: Family History (Last Reviewed 02/21/19 @ 08:45 by Yeimy Li) Grandfather Cancer Father Prostate cancer Grandfather CVA (cerebral vascular accident) Family History: Cancer, - Lives: Spouse/ Significant Other Smoking Status: Unknown if ever smoked Tobacco Use: Non-smoker Alcohol: None Drugs: None Physical Exam Vital Signs Temp Pulse Resp BP Pulse Ox 97.2 F L 77 16 113/65 97 04/29/19 10:51 04/29/19 10:51 04/29/19 10:51 04/29/19 10:51 04/17/19 00:35 General: Alert, Oriented x3, Cooperative HEENT: Atraumatic, TM's Clear - ear tube present in right TM Lungs: Clear to auscultation, Normal air movement Cardiovascular: Regular rate, Regular Rhythm Psych/Mental Status: Normal Affect, Appropriate Assessment/Plan Active Problems (Last Updated 04/19/19 @ 13:25 by Terra Conteh DO) Unspecified complication of skin graft (allograft) (autograft) (Chronic) 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 Code Visit 11336
--- NOTE | 2019-04-29 14:14 | PCM.WC.PN ---
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 Current Visit: Yes Code(s): T86.829 - Unspecified complication of skin graft (allograft) (autograft) (3) Skin graft (allograft) (autograft) failure Status: Chronic Current Visit: Yes Code(s): T86.821 - Skin graft (allograft) (autograft) failure (4) Diabetes Status: Chronic Current Visit: Yes Code(s): E11.9 - Type 2 diabetes mellitus without complications Type of Wound Date of Service: 04/29/19 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: Nonhealing diabetic ulcers left lateral middle back and right lateral middle back with compromised skin grafts. History of Wound: Surgery 02/18/19 - 1. Surgical preparation right lateral middle back with excision nonhealing diabetic ulcer. 2. Reconstruction with STSG from right posterior flank (21 cm2) and placement AmnioFill Placental Connective Tissue Powder (250 mg) and placement TAYLOR NPWT. 3. Surgical preparation left lateral middle back with excision nonhealing diabetic ulcer. 4. Reconstruction with STSG from left posterior flank (48 cm2) and placement of AmnioFill Placental Connective Tissue Powder (500 mg) and placement of TAYLOR NPWT. Wound care - Will stop the Calcium alginate and start collagen hydrogel covered by adaptic. Operative cultures - MRSE, Staphylococcus epidermidis, and Corynebacterium amycolatum/xer in the left lateral middle back and Corynebacterium amycolatum/xer and Salma albicans in the right lateral middle back. Prealbumin from 12/05/18 was 22.5. Encourage nutritonal supplementation with protein to help the healing process. He developed some compromise to the skin grafts on his back. He has started HBO treatments and has tolerated them thus far. He is having increased pain on his right middle back ulcer. Will send a wound culture today. Depending on the results of the culture, it may necessatate treatment with antibiotics. Today he denies fever. His appetite is good. Progress of Wound: Right improved, left is stable. - Physical Exam Vital Signs Temp Pulse Resp BP Pulse Ox 97.2 F L 77 16 113/65 97 04/29/19 10:51 04/29/19 10:51 04/29/19 10:51 04/29/19 10:51 04/17/19 00:35 General: Alert, Oriented x3, Cooperative HEENT: Atraumatic Oral: Moist Mucosa Lungs: Normal air movement Cardiovascular: Regular rate Extremities: No edema, Capillary Refill Less than 3 Seconds Skin: Ulcer/ Wound - Right middle back and left middle back ulcers Wound Measurements and Assessment - Nurse 1 - General Ulcer Measurement Start: 04/18/19 08:38 Freq: Status: Active Protocol: Activity Type Activity Date Activity User E-Sign Co-Sign Detail Recorded Client Recorded Date Recorded By Document 04/29/19 08:22 BS [id number] 04/29/19 08:28 BS 04/29/19 08:22 Wound Center Nurse 1 [Ulcer Assessment] 6. L lumbar back -Combined with other wound No -Current Size (cm) - Length 6 -Current Size (cm) - Width 8 -Current Size (cm) - Depth 0.2 -Total Square Cm 48 -Anesthetic Used 4% Lidocaine Solution 5. R scapula -Combined with other wound No -Current Size (cm) - Length 2.5 -Current Size (cm) - Width 6.5 -Current Size (cm) - Depth 0.2 -Total Square Cm 16.25 -Anesthetic Used 4% Lidocaine Solution - Nurse 2 - General Ulcer CM Notes Start: 04/18/19 08:38 Freq: Status: Active Protocol: Activity Type Activity Date Activity User E-Sign Co-Sign Detail Recorded Client Recorded Date Recorded By Document 04/29/19 08:44 [id number] 04/29/19 08:47 04/29/19 08:44 Wound Center Nurse 2 [Procedure/Treatment] 6. L lumbar back -Time 08:44 -Correct Patient Yes -Correct Side, Site, Position Yes -Correct Procedure Yes -Procedure Performed Yes -Type of Procedure Debridement -Clinical Debridement Subcutaneous -Post Debridement Size (cm) - Length 8 -Post Debridement Size (cm) - Width 5.2 -Post Debridement Size (cm) - Depth 0.2 -Total Square Cm 41.6 -Wound/Ulcer Outcome Not Healed -Ulcer Cleansing Rinsed/ Irrigated with Saline -Foul Odor after Cleansing No -Bioengineered Tissue No -Bleeding Controlled with Pressure -Offloading No -Treatment Response Procedure Tolerated Well 5. R scapula -Time 08:45 -Correct Patient Yes -Correct Side, Site, Position Yes -Correct Procedure Yes -Procedure Performed Yes -Type of Procedure Debridement -Clinical Debridement Subcutaneous -Post Debridement Size (cm) - Length 6.3 -Post Debridement Size (cm) - Width 2.1 -Post Debridement Size (cm) - Depth 0.3 -Total Square Cm 13.23 -Wound/Ulcer Outcome Not Healed -Ulcer Cleansing Rinsed/ Irrigated with Saline -Foul Odor after Cleansing No -Bioengineered Tissue No -Bleeding Controlled with Pressure -Offloading No -Treatment Response Procedure Tolerated Well [See Physician Procedure note for Specifics] Pain Scale: 0-10 Numeric [Pain] -Is Patient Pain Free? Yes Musculoskeletal: No Tenderness to Palpation of Joints or Extremities Neurological: Neuro grossly intact Psych/Mental Status: Normal Affect, Appropriate Debridement Note Post-Debridement Measurements/Treatment WC - Nurse 2 - General Ulcer CM Notes Start: 04/18/19 08:38 Freq: Status: Active Protocol: Activity Type Activity Date Activity User E-Sign Co-Sign Detail Recorded Client Recorded Date Recorded By Document 04/22/19 08:53 [id number] 04/22/19 09:02 Document 04/29/19 08:44 [id number] 04/29/19 08:47 04/22/19 04/29/19 08:53 08:44 Wound Center Nurse 2 6. L lumbar back -Time 08:53 08:44 -Correct Patient Yes Yes -Correct Side, Site, Position Yes Yes -Correct Procedure Yes Yes -Procedure Performed Yes Yes -Type of Procedure Debridement Debridement -Clinical Debridement Subcutaneous Subcutaneous -Post Debridement Size (cm) - Length 8.0 8 -Post Debridement Size (cm) - Width 4.7 5.2 -Post Debridement Size (cm) - Depth 0.2 0.2 -Total Square Cm 37.60 41.6 -Wound/Ulcer Outcome Not Healed Not Healed -Ulcer Cleansing Rinsed/ Rinsed/ Irrigated with Irrigated with Saline Saline -Foul Odor after Cleansing No No -Bioengineered Tissue No No -Bleeding Controlled with Pressure Pressure -Offloading No No -Treatment Response Procedure Procedure Tolerated Well Tolerated Well 5. R scapula -Time 08:54 08:45 -Correct Patient Yes Yes -Correct Side, Site, Position Yes Yes -Correct Procedure Yes Yes -Procedure Performed Yes Yes -Type of Procedure Debridement Debridement -Clinical Debridement Subcutaneous Subcutaneous -Post Debridement Size (cm) - Length 5.7 6.3 -Post Debridement Size (cm) - Width 1.8 2.1 -Post Debridement Size (cm) - Depth 0.2 0.3 -Total Square Cm 10.26 13.23 -Wound/Ulcer Outcome Not Healed Not Healed -Ulcer Cleansing Rinsed/ Rinsed/ Irrigated with Irrigated with Saline Saline -Foul Odor after Cleansing No No -Bioengineered Tissue No No -Bleeding Controlled with Pressure Pressure -Offloading No No -Treatment Response Procedure Procedure Tolerated Well Tolerated Well Pain Scale: 0-10 Numeric Is Patient Pain Free? Yes Yes Wound debrided: middle lateral back Laterality: Right Type of Debridement: Excisional debridement Anesthesia Used: 5% Lidocaine Gel Depth: Down to and including healthy tissue, in the subcutaneous layer Percentage of wound debrided: 100 Instrument Used: 3mm curette Tissue Removed: subcutaneous tissue and slough Severity: Fat Layer Exposed Amount of bleeding with debridement: Mild Bleeding Controlled with: Pressure Patient tolerated procedure well - Additional Wound Wound debrided: middle lateral back Laterality: Left Type of Debridement: Excisional debridement Anesthesia Used: 5% Lidocaine Gel Depth: Down to and including healthy tissue, in the subcutaneous layer Percentage of wound debrided: 100 Instrument Used: 3mm curette Tissue Removed: subcutaneous tissue and slough Severity: Fat Layer Exposed Amount of bleeding with debridement: Mild Bleeding Controlled with: Pressure Patient tolerated procedure: Patient tolerated procedure well Assessment/Plan Active Problems (Last Reviewed 04/30/19 @ 09:14 by Ryan Gandhi DO) Unspecified complication of skin graft (allograft) (autograft) (Chronic) Skin graft (allograft) (autograft) failure (Chronic) Diabetes (Chronic) 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 Nonhealing diabetic ulcer right lateral middle back. 2. Nonhealing diabetic ulcer left lateral middle back. 3. Diabetes mellitus. 4. s/p surgical preparation right lateral middle back with excision nonhealing diabetic ulcer and reconstruction with STSG from right posterior flank (21 cm2) and placement AmnioFill Placental Connective Tissue Powder (250 mg) and placement TAYLOR NPWT and surgical preparation left lateral middle back with excision nonhealing diabetic ulcer and reconstruction with STSG from left posterior flank (48 cm2) and placement of AmnioFill Placental Connective Tissue Powder (500 mg) and placement of TAYLOR NPWT. 5. Mild compromised skin grafts. Plan: Stop CalciumAlginate to the compromised areas of both skin graft ulcers and start collagen hydrogel covered with adaptic. He is tolerating HBO. He will continue the treatments to help salvage the compromised skin grafts. Operative cultures showed Corynebaterium amycolatum/xer and Salma albicans in the right lateral middle back ulcer and MRSE, Staphylococcus epidermidis, and Corynebacterium amycolatum/xer in the left lateral middle back ulcer. He is finishing the Cleocin and will continue the Diflucan. Will need to check a CMP while on Diflucan. He has been having increased pain on his right middle back ulcer, sent a culture. Depending on the results of the culture, it may necessatate treatment with an antibiotic. Prealbumin from 12/05/18 was 22.5. Encourage nutritional supplementation with protein to help the healing process. Followup one week. Code Visit [id number]: [id number] Global Visit
[2019-04-30 09:07] VITALS: BMI 28.4
[2019-04-30 11:10] VITALS: BP 116/77; BP 149/96; PULSE 63; PULSE 66; RESP 18; RESP 20; TEMP 36.2; TEMP 36.3
--- NOTE | 2019-04-30 13:05 | PCM.HBO.PN ---
History of Present Illness Date of Service: 04/30/19 Presenting 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: Nonhealing diabetic ulcers left lateral middle back and right lateral middle back with compromised skin grafts. BILL JACQUES is a 58 year old currently undergoing hyperbaric oxygen therapy for nonhealing diabetic ulcers of his left lateral mid-back and right lateral mid-back with compromised skin grafts. Progress: Today represents the patient's 32nd hyperbaric oxygen therapy session of a total planned 40 sessions. Tolerance of hyperbaric oxygen therapy: Hyperbaric oxygen therapy was administered today as per our facility's protocol. The patient is status-post placement of a right tympanic membrane tube on Monday03/19/19. Hyperbaric oxygen therapy was administered for a total of 90 minutes at 2.0 HAO without any air breaks. The patient tolerated hyperbaric oxygen therapy well without complaints or complications. Vital signs were stable and he was discharged in good condition. 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 Trigger finger, left ring finger (Chronic) Hypertension (Chronic) Neuroma (Chronic) Allergies/Adverse Reactions: Allergies No Known Allergies Allergy (Verified 02/21/19 08:44) Home Medications: Ambulatory Orders Medication Instructions Recorded Multivitamin with Minerals 1 ea PO DAILY 02/14/19 [Multiple Vitamin] Lactobacillus Acidophilus/Fos 1 ea PO BID #30 tab 02/18/19 [Acidophilus Probiotic Tablet] linezolid 600 mg tablet 600 mg PO Q12H 30 Days #60 tab 04/18/19 diclofenac sodium 1 % topical gel 2 g TOPICAL ONCE 04/25/19 albuterol sulfate 90 mcg/actuation 2 puff INHALATION Q6H PRN #8.5 g 04/30/19 aerosol inhaler lisinopril 5 mg tablet 5 mg PO DAILY 04/30/19 Paternal Family History: Family History (Last Reviewed 04/30/19 @ 09:14 by Ryan Gandhi DO) Grandfather Cancer Father Prostate cancer Grandfather CVA (cerebral vascular accident) Family History: Cancer, - Lives: Spouse/ Significant Other Smoking Status: Unknown if ever smoked Tobacco Use: Non-smoker Alcohol: None Drugs: None Physical Exam Vital Signs Temp Pulse Resp BP Pulse Ox 97.4 F L 63 20 H 149/96 H 97 04/30/19 11:10 04/30/19 11:10 04/30/19 11:10 04/30/19 11:10 04/17/19 00:35 General: Alert, Oriented x3, Cooperative, No apparent distress, Well developed, Well nourished HEENT: Atraumatic, PERRLA, EOMI, Normocephalic Lungs: Normal air movement Psych/Mental Status: Normal Affect, Appropriate, Alert and oriented to time, place, person, mood and affect Assessment/Plan Active Problems (Last Reviewed 04/30/19 @ 09:14 by Ryan Gandhi DO) Unspecified complication of skin graft (allograft) (autograft) (Chronic) 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
[2019-05-01 08:39] VITALS: BP 122/74; BP 131/75; PULSE 60; PULSE 67; RESP 16; RESP 18; TEMP 36.1; TEMP 36.2
--- NOTE | 2019-05-01 10:52 | PCM.HBO.PN ---
History of Present Illness Date of Service: 05/01/19 Presenting 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: Nonhealing diabetic ulcers left lateral middle back and right lateral middle back with compromised skin grafts. BILL JACQUES is a 58 year old currently undergoing hyperbaric oxygen therapy for nonhealing diabetic ulcers of his left lateral mid-back and right lateral mid-back with compromised skin grafts. Progress: Today represents the patient's 33nd hyperbaric oxygen therapy session of a total planned 40 sessions. Tolerance of hyperbaric oxygen therapy: Hyperbaric oxygen therapy was administered today as per our facility's protocol. The patient is status-post placement of a right tympanic membrane tube on Monday03/19/19. Hyperbaric oxygen therapy was administered for a total of 90 minutes at 2.0 HAO without any air breaks. The patient tolerated hyperbaric oxygen therapy well without complaints or complications. Vital signs were stable and he was discharged in good condition. 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 Trigger finger, left ring finger (Chronic) Hypertension (Chronic) Neuroma (Chronic) Allergies/Adverse Reactions: Allergies No Known Allergies Allergy (Verified 02/21/19 08:44) Home Medications: Ambulatory Orders Medication Instructions Recorded Multivitamin with Minerals 1 ea PO DAILY 02/14/19 [Multiple Vitamin] Lactobacillus Acidophilus/Fos 1 ea PO BID #30 tab 02/18/19 [Acidophilus Probiotic Tablet] linezolid 600 mg tablet 600 mg PO Q12H 30 Days #60 tab 04/18/19 diclofenac sodium 1 % topical gel 2 g TOPICAL ONCE 04/25/19 albuterol sulfate 90 mcg/actuation 2 puff INHALATION Q6H PRN #8.5 g 04/30/19 aerosol inhaler lisinopril 5 mg tablet 5 mg PO DAILY 04/30/19 Paternal Family History: Family History (Last Reviewed 04/30/19 @ 09:14 by Ryan Gandhi DO) Grandfather Cancer Father Prostate cancer Grandfather CVA (cerebral vascular accident) Family History: Cancer, - Lives: Spouse/ Significant Other Smoking Status: Unknown if ever smoked Tobacco Use: Non-smoker Alcohol: None Drugs: None Physical Exam Vital Signs Temp Pulse Resp BP Pulse Ox 97.2 F L 60 18 131/75 H 97 05/01/19 08:39 05/01/19 08:39 05/01/19 08:39 05/01/19 08:39 04/17/19 00:35 Assessment/Plan Active Problems (Last Reviewed 04/30/19 @ 09:14 by Ryan Gandhi DO) Unspecified complication of skin graft (allograft) (autograft) (Chronic) Skin graft (allograft) (autograft) failure (Chronic) Diabetes (Chronic) 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
[2019-05-02 08:25] VITALS: BP 120/80; BP 130/72; PULSE 59; PULSE 68; RESP 16; RESP 18; TEMP 36.2
--- NOTE | 2019-05-02 11:51 | PCM.HBO.PN ---
History of Present Illness Date of Service: 05/02/19 Presenting 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: Nonhealing diabetic ulcers left lateral middle back and right lateral middle back with compromised skin grafts. BILL JACQUES is a 58 year old currently undergoing hyperbaric oxygen therapy for nonhealing diabetic ulcers of his left lateral mid-back and right lateral mid-back with compromised skin grafts. Progress: Today represents the patient's 34th hyperbaric oxygen therapy session of a total planned 40 sessions. Tolerance of hyperbaric oxygen therapy: Hyperbaric oxygen therapy was administered today as per our facility's protocol. The patient is status-post placement of a right tympanic membrane tube on Monday03/19/19. Hyperbaric oxygen therapy was administered for a total of 90 minutes at 2.0 HAO without any air breaks. The patient tolerated hyperbaric oxygen therapy well without complaints or complications. Vital signs were stable and he was discharged in good condition. 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 Trigger finger, left ring finger (Chronic) Hypertension (Chronic) Neuroma (Chronic) Allergies/Adverse Reactions: Allergies No Known Allergies Allergy (Verified 02/21/19 08:44) Home Medications: Ambulatory Orders Medication Instructions Recorded Multivitamin with Minerals 1 ea PO DAILY 02/14/19 [Multiple Vitamin] Lactobacillus Acidophilus/Fos 1 ea PO BID #30 tab 02/18/19 [Acidophilus Probiotic Tablet] linezolid 600 mg tablet 600 mg PO Q12H 30 Days #60 tab 04/18/19 diclofenac sodium 1 % topical gel 2 g TOPICAL ONCE 04/25/19 albuterol sulfate 90 mcg/actuation 2 puff INHALATION Q6H PRN #8.5 g 04/30/19 aerosol inhaler lisinopril 5 mg tablet 5 mg PO DAILY 04/30/19 Paternal Family History: Family History (Last Reviewed 04/30/19 @ 09:14 by Ryan Gandhi DO) Grandfather Cancer Father Prostate cancer Grandfather CVA (cerebral vascular accident) Family History: Cancer, - Lives: Spouse/ Significant Other Smoking Status: Unknown if ever smoked Tobacco Use: Non-smoker Alcohol: None Drugs: None Physical Exam Vital Signs Temp Pulse Resp BP Pulse Ox 97.2 F L 59 L 18 130/72 H 97 05/02/19 08:25 05/02/19 08:25 05/02/19 08:25 05/02/19 08:25 04/17/19 00:35 General: Alert, Oriented x3, Cooperative, No apparent distress HEENT: Atraumatic, Normocephalic Lungs: Normal air movement Psych/Mental Status: Normal Affect Assessment/Plan Active Problems (Last Reviewed 04/30/19 @ 09:14 by Ryan Gandhi DO) Unspecified complication of skin graft (allograft) (autograft) (Chronic) Skin graft (allograft) (autograft) failure (Chronic) Diabetes (Chronic) 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 Code Visit HBO Supervision.
--- NOTE | 2019-05-03 08:21 | PCM.HBO.PN ---
History of Present Illness Date of Service: 05/03/19 Presenting 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: Nonhealing diabetic ulcers left lateral middle back and right lateral middle back with compromised skin grafts. BILL JACQUES is a 58 year old currently undergoing hyperbaric oxygen therapy for nonhealing diabetic ulcers of his left lateral mid-back and right lateral mid-back with compromised skin grafts. Progress: Today represents the patient's 35th hyperbaric oxygen therapy session of a total planned 40 sessions. Tolerance of hyperbaric oxygen therapy: Hyperbaric oxygen therapy was administered today as per our facility's protocol. The patient is status-post placement of a right tympanic membrane tube on Monday03/19/19. Hyperbaric oxygen therapy was administered for a total of 90 minutes at 2.0 HAO without any air breaks. The patient tolerated hyperbaric oxygen therapy well without complaints or complications. Vital signs were stable and he was discharged in good condition. 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 Trigger finger, left ring finger (Chronic) Hypertension (Chronic) Neuroma (Chronic) Allergies/Adverse Reactions: Allergies No Known Allergies Allergy (Verified 02/21/19 08:44) Home Medications: Ambulatory Orders Medication Instructions Recorded Multivitamin with Minerals 1 ea PO DAILY 02/14/19 [Multiple Vitamin] Lactobacillus Acidophilus/Fos 1 ea PO BID #30 tab 02/18/19 [Acidophilus Probiotic Tablet] linezolid 600 mg tablet 600 mg PO Q12H 30 Days #60 tab 04/18/19 diclofenac sodium 1 % topical gel 2 g TOPICAL ONCE 04/25/19 albuterol sulfate 90 mcg/actuation 2 puff INHALATION Q6H PRN #8.5 g 04/30/19 aerosol inhaler lisinopril 5 mg tablet 5 mg PO DAILY 04/30/19 Paternal Family History: Family History (Last Reviewed 04/30/19 @ 09:14 by Ryan Gandhi DO) Grandfather Cancer Father Prostate cancer Grandfather CVA (cerebral vascular accident) Family History: Cancer, - Lives: Spouse/ Significant Other Smoking Status: Unknown if ever smoked Tobacco Use: Non-smoker Alcohol: None Drugs: None Physical Exam Vital Signs Temp Pulse Resp BP Pulse Ox 97.2 F L 59 L 18 130/72 H 97 05/02/19 08:25 05/02/19 08:25 05/02/19 08:25 05/02/19 08:25 04/17/19 00:35 General: Alert, Oriented x3, Cooperative, No apparent distress HEENT: Atraumatic, TM's Clear Lungs: Clear to auscultation, Normal air movement Cardiovascular: Regular rate, Regular Rhythm Psych/Mental Status: Normal Affect, Appropriate, Alert and oriented to time, place, person, mood and affect Assessment/Plan Active Problems (Last Reviewed 04/30/19 @ 09:14 by Ryan Gandhi DO) Unspecified complication of skin graft (allograft) (autograft) (Chronic) Skin graft (allograft) (autograft) failure (Chronic) Diabetes (Chronic) 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
[2019-05-03 13:38] VITALS: BP 118/73; BP 124/78; PULSE 57; PULSE 58; RESP 16; RESP 18; TEMP 36.2; TEMP 36.3
[2019-05-06 08:47] VITALS: BP 127/81; BP 127/82; PULSE 63; PULSE 66; RESP 16; RESP 18; TEMP 36.1; TEMP 36.2
[2019-05-06 11:04] VITALS: BP 127/81; PULSE 63; RESP 16; TEMP 36.2; BMI 28.4
--- NOTE | 2019-05-06 17:38 | PCM.WC.PN ---
Type of Wound Date of Service: 05/06/19 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: Nonhealing diabetic ulcers left lateral middle back and right lateral middle back with compromised skin grafts. History of Wound: Surgery 02/18/19 - 1. Surgical preparation right lateral middle back with excision nonhealing diabetic ulcer. 2. Reconstruction with STSG from right posterior flank (21 cm2) and placement AmnioFill Placental Connective Tissue Powder (250 mg) and placement TAYLOR NPWT. 3. Surgical preparation left lateral middle back with excision nonhealing diabetic ulcer. 4. Reconstruction with STSG from left posterior flank (48 cm2) and placement of AmnioFill Placental Connective Tissue Powder (500 mg) and placement of TAYLOR NPWT. Wound care - Collagen hydrogel. Operative cultures - MRSE, Staphylococcus epidermidis, and Corynebacterium amycolatum/xer in the left lateral middle back and Corynebacterium amycolatum/xer and Salma albicans in the right lateral middle back. He was placed on Cleocin and Diflucan and has finished them. A repeat culture on 04/15/19 showed MRSE. He was placed on Zyvox. Prealbumin from 12/05/18 was 22.5. Encourage nutritonal supplementation with protein to help the healing process. He developed some compromise to the skin grafts on his back. He has started HBO treatments and has tolerated them thus far. He has 4 out of 40 treatments remaining. Today he denies fever. His appetite is good. Progress of Wound: Improved. - Physical Exam Vital Signs Temp Pulse Resp BP Pulse Ox 97.1 F L 63 16 127/81 H 97 05/06/19 11:04 05/06/19 11:04 05/06/19 11:04 05/06/19 11:04 04/17/19 00:35 Wound Measurements and Assessment WC - Nurse 1 - General Ulcer Measurement Start: 04/18/19 08:38 Freq: Status: Active Protocol: Activity Type Activity Date Activity User E-Sign Co-Sign Detail Recorded Client Recorded Date Recorded By Document 05/06/19 11:04 [email or web address] [id number] 05/06/19 11:10 DL 05/06/19 11:04 Wound Center Nurse 1 [Ulcer Assessment] 6. L lumbar back -Current Size (cm) - Length 3.3 -Current Size (cm) - Width 7.3 -Current Size (cm) - Depth 0.1 -Total Square Cm 24.09 -Photo Taken No -Exudate Amt Small -Exudate Type Serosanguineous -Wound Margin Distinct, Outline Attached -Granulation Amt Large (67-100%) -Granulation Quality Red -Necrosis Amt Small (1-33%) -Necrotic Tissue Type Adherent Slough -Structure Exposed N/A -Texture (Mayra-wound Skin Appearance) Scarring -Moisture (Mayra-wound Skin Appearance No Abnormality ) -Color (Mayra-wound Skin Appearance) No Abnormality -Temperature (Mayra-wound Skin No Abnormality Appearance) (Pt Warm) -Tenderness on Palpation (Mayra-wound No Skin Appearance) -Ulcer Cleansing Wound Cleanser -Foul Odor after Cleansing No -Anesthetic Used 4% Lidocaine Solution,5% Lidocaine Gel 5. R scapula -Current Size (cm) - Length 4 -Current Size (cm) - Width 4.8 -Current Size (cm) - Depth 0.2 -Total Square Cm 19.2 -Photo Taken No -Exudate Amt Small -Exudate Type Serosanguineous -Wound Margin Distinct, Outline Attached -Granulation Amt Large (67-100%) -Granulation Quality Red -Necrosis Amt Small (1-33%) -Necrotic Tissue Type Adherent Slough -Structure Exposed N/A -Texture (Mayra-wound Skin Appearance) Scarring -Moisture (Mayra-wound Skin Appearance No Abnormality ) -Color (Mayra-wound Skin Appearance) No Abnormality -Temperature (Mayra-wound Skin No Abnormality Appearance) (Pt Warm) -Tenderness on Palpation (Mayra-wound No Skin Appearance) -Ulcer Cleansing Wound Cleanser -Foul Odor after Cleansing No WC - Nurse 2 - General Ulcer CM Notes Start: 04/18/19 08:38 Freq: Status: Active Protocol: Activity Type Activity Date Activity User E-Sign Co-Sign Detail Recorded Client Recorded Date Recorded By Document 05/06/19 11:28 [facility] [id number] 05/06/19 11:31 [facility] 05/06/19 11:28 Wound Center Nurse 2 [Procedure/Treatment] 6. L lumbar back -Time 11:30 -Correct Patient Yes -Correct Side, Site, Position Yes -Correct Procedure Yes -Procedure Performed Yes -Type of Procedure Debridement -Clinical Debridement Subcutaneous -Post Debridement Size (cm) - Length 7.5 -Post Debridement Size (cm) - Width 5 -Post Debridement Size (cm) - Depth 0.2 -Total Square Cm 37.5 -Wound/Ulcer Outcome Not Healed -Ulcer Cleansing Rinsed/ Irrigated with Saline -Foul Odor after Cleansing No -Bioengineered Tissue No -Bleeding Controlled with Pressure -Offloading No -Treatment Response Procedure Tolerated Well 5. R scapula -Time 11:31 -Correct Patient Yes -Correct Side, Site, Position Yes -Correct Procedure Yes -Procedure Performed Yes -Type of Procedure Debridement -Clinical Debridement Subcutaneous -Post Debridement Size (cm) - Length 5.7 -Post Debridement Size (cm) - Width 2.6 -Post Debridement Size (cm) - Depth 0.3 -Total Square Cm 14.82 -Wound/Ulcer Outcome Not Healed -Ulcer Cleansing Rinsed/ Irrigated with Saline -Foul Odor after Cleansing No -Bioengineered Tissue No -Bleeding Controlled with Pressure -Offloading No -Treatment Response Procedure Tolerated Well [See Physician Procedure note for Specifics] Pain Scale: 0-10 Numeric [Pain] -Is Patient Pain Free? Yes Debridement Note Post-Debridement Measurements/Treatment WC - Nurse 2 - General Ulcer CM Notes Start: 04/18/19 08:38 Freq: Status: Active Protocol: Activity Type Activity Date Activity User E-Sign Co-Sign Detail Recorded Client Recorded Date Recorded By Document 04/22/19 08:53 [email or web address] 04/22/19 09:02 Document 04/29/19 08:44 [id number] 04/29/19 08:47 Document 05/06/19 11:28 [id number] 05/06/19 11:31 04/22/19 04/29/19 05/06/19 08:53 08:44 11:28 Wound Center Nurse 2 6. L lumbar back -Time 08:53 08:44 11:30 -Correct Patient Yes Yes Yes -Correct Side, Site, Position Yes Yes Yes -Correct Procedure Yes Yes Yes -Procedure Performed Yes Yes Yes -Type of Procedure Debridement Debridement Debridement -Clinical Debridement Subcutaneous Subcutaneous Subcutaneous -Post Debridement Size (cm) - Length 8.0 8 7.5 -Post Debridement Size (cm) - Width 4.7 5.2 5 -Post Debridement Size (cm) - Depth 0.2 0.2 0.2 -Total Square Cm 37.60 41.6 37.5 -Wound/Ulcer Outcome Not Healed Not Healed Not Healed -Ulcer Cleansing Rinsed/ Rinsed/ Rinsed/ Irrigated with Irrigated with Irrigated with Saline Saline Saline -Foul Odor after Cleansing No No No -Bioengineered Tissue No No No -Bleeding Controlled with Pressure Pressure Pressure -Offloading No No No -Treatment Response Procedure Procedure Procedure Tolerated Well Tolerated Well Tolerated Well 5. R scapula -Time 08:54 08:45 11:31 -Correct Patient Yes Yes Yes -Correct Side, Site, Position Yes Yes Yes -Correct Procedure Yes Yes Yes -Procedure Performed Yes Yes Yes -Type of Procedure Debridement Debridement Debridement -Clinical Debridement Subcutaneous Subcutaneous Subcutaneous -Post Debridement Size (cm) - Length 5.7 6.3 5.7 -Post Debridement Size (cm) - Width 1.8 2.1 2.6 -Post Debridement Size (cm) - Depth 0.2 0.3 0.3 -Total Square Cm 10.26 13.23 14.82 -Wound/Ulcer Outcome Not Healed Not Healed Not Healed -Ulcer Cleansing Rinsed/ Rinsed/ Rinsed/ Irrigated with Irrigated with Irrigated with Saline Saline Saline -Foul Odor after Cleansing No No No -Bioengineered Tissue No No No -Bleeding Controlled with Pressure Pressure Pressure -Offloading No No No -Treatment Response Procedure Procedure Procedure Tolerated Well Tolerated Well Tolerated Well Pain Scale: 0-10 Numeric Is Patient Pain Free? Yes Yes Yes Wound debrided: #5 Right lateral middle back. Laterality: Right Wound Grade/Stage: 2. Type of Debridement: Excisional debridement Anesthesia Used: 4% Lidocaine Solution Depth: Down to and including healthy tissue, in the subcutaneous layer Percentage of wound debrided: 100 Instrument Used: 3mm curette Tissue Removed: subcutaneous tissue. Severity: Fat Layer Exposed Amount of bleeding with debridement: Mild Bleeding Controlled with: Pressure Patient tolerated procedure well - Additional Wound Wound debrided: #6 Left lateral middle back. Laterality: Left Wound Grade/Stage: 2. Type of Debridement: Excisional debridement Anesthesia Used: 4% Lidocaine Solution Depth: Down to and including healthy tissue, in the subcutaneous layer Percentage of wound debrided: 100 Instrument Used: 3mm curette Tissue Removed: subcutaneous tissue. 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 Nonhealing diabetic ulcer right lateral middle back. 2. Nonhealing diabetic ulcer left lateral middle back. 3. Diabetes mellitus. 4. s/p surgical preparation right lateral middle back with excision nonhealing diabetic ulcer and reconstruction with STSG from right posterior flank (21 cm2) and placement AmnioFill Placental Connective Tissue Powder (250 mg) and placement TAYLOR NPWT and surgical preparation left lateral middle back with excision nonhealing diabetic ulcer and reconstruction with STSG from left posterior flank (48 cm2) and placement of AmnioFill Placental Connective Tissue Powder (500 mg) and placement of TAYLOR NPWT. 5. Mild compromised skin grafts. Plan: Continue Collagen hydrogel to the compromised areas of both skin graft ulcers. He is tolerating HBO. He will continue the treatments to help salvage the compromised skin grafts. He has 4 out of 40 treatments left. Operative cultures showed Corynebaterium amycolatum/xer and Salma albicans in the right lateral middle back ulcer and MRSE, Staphylococcus epidermidis, and Corynebacterium amycolatum/xer in the left lateral middle back ulcer. He has finished the Cleocin and the Diflucan. His LFT's on 02/26/19 were normal. A recent culture on 04/15/19 showed MRSE and he was placed on Zyvox. Prealbumin from 12/05/18 was 22.5. Encourage nutritional supplementation with protein to help the healing process. Followup one week. Code Visit [id number]: [id number] Global Visit - ICD-10 - V58.49, L98.492. E11.9, T86.829
--- NOTE | 2019-05-06 17:49 | HBO.PN.PCM_ITS ---
History of Present Illness Date of Service: 05/06/19 Presenting 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: Nonhealing diabetic ulcers left lateral middle back and right lateral middle back with compromised skin grafts. BILL JACQUES is a 58 year old currently undergoing hyperbaric oxygen therapy for nonhealing diabetic ulcers of his left lateral mid-back and right lateral mid-back with compromised skin grafts. Progress: Today represents the patient's 36th hyperbaric oxygen therapy session of a total planned 40 sessions. Tolerance of hyperbaric oxygen therapy: Hyperbaric oxygen therapy was administered today as per our facility's protocol. The patient is status-post placement of a right tympanic membrane tube on Monday03/19/19. The patient tolerated hyperbaric oxygen therapy well without complaints or complications. Vital signs were stable and he was discharged in good condition. 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) LEYDI (obstructive sleep apnea) (Chronic) Diabetes (Chronic) Hearing problem (Chronic) Non-pressure chronic ulcer of skin of other sites with fat layer exposed (Chr onic) Nonhealing ulcers right lateral middle back and left lateral middle back Nonhealing surgical wound (Chronic) right lateral middle back and left lateral middle back after excision of nonhealing diabetic ulcers with skin flap reconstruction Type 2 diabetes mellitus (Chronic) Trigger finger, left ring finger (Chronic) Hypertension (Chronic) Neuroma (Chronic) Allergies/Adverse Reactions: Allergies No Known Allergies Allergy (Verified 02/21/19 08:44) Home Medications: Ambulatory Orders Medication Instructions Recorded Multivitamin with Minerals 1 ea PO DAILY 02/14/19 [Multiple Vitamin] Lactobacillus Acidophilus/Fos 1 ea PO BID #30 tab 02/18/19 [Acidophilus Probiotic Tablet] linezolid 600 mg tablet 600 mg PO Q12H 30 Days #60 tab 04/18/19 diclofenac sodium 1 % topical gel 2 g TOPICAL ONCE 04/25/19 albuterol sulfate 90 mcg/actuation 2 puff INHALATION Q6H PRN #8.5 g 04/30/19 aerosol inhaler lisinopril 5 mg tablet 5 mg PO DAILY 04/30/19 Paternal Family History: Family History (Last Reviewed 04/30/19 @ 09:14 by Ryan Gandhi DO) Grandfather Cancer Father Prostate cancer Grandfather CVA (cerebral vascular accident) Family History: Cancer, - Lives: Spouse/ Significant Other Smoking Status: Unknown if ever smoked Tobacco Use: Non-smoker Alcohol: None Drugs: None Physical Exam Vital Signs Temp Pulse Resp BP Pulse Ox 97.1 F L 63 16 127/81 H 97 05/06/19 11:04 05/06/19 11:04 05/06/19 11:04 05/06/19 11:04 04/17/19 00:35 Assessment/Plan Active Problems (Last Reviewed 04/30/19 @ 09:14 by Ryan Gandhi DO) Unspecified complication of skin graft (allograft) (autograft) (Chronic) Skin graft (allograft) (autograft) failure (Chronic) Diabetes (Chronic) 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
[2019-05-07 08:40] VITALS: BP 123/71; BP 126/80; PULSE 66; RESP 16; RESP 18; TEMP 36.2; TEMP 36.3
--- NOTE | 2019-05-07 11:47 | PCM.HBO.PN ---
History of Present Illness Date of Service: 05/07/19 Presenting 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: Nonhealing diabetic ulcers left lateral middle back and right lateral middle back with compromised skin grafts. BILL JACQUES is a 58 year old currently undergoing hyperbaric oxygen therapy for nonhealing diabetic ulcers of his left lateral mid-back and right lateral mid-back with compromised skin grafts. Progress: Today represents the patient's 37th hyperbaric oxygen therapy session of a total planned 40 sessions. Tolerance of hyperbaric oxygen therapy: Hyperbaric oxygen therapy was administered today as per our facility's protocol. The patient is status-post placement of a right tympanic membrane tube on Monday03/19/19. Hyperbaric oxygen therapy was administered for a total of 90 minutes at 2.0 HAO without any air breaks. The patient tolerated hyperbaric oxygen therapy well without complaints or complications. Vital signs were stable and he was discharged in good condition. 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 Trigger finger, left ring finger (Chronic) Hypertension (Chronic) Neuroma (Chronic) Allergies/Adverse Reactions: Allergies No Known Allergies Allergy (Verified 02/21/19 08:44) Home Medications: Ambulatory Orders Medication Instructions Recorded Multivitamin with Minerals 1 ea PO DAILY 02/14/19 [Multiple Vitamin] Lactobacillus Acidophilus/Fos 1 ea PO BID #30 tab 02/18/19 [Acidophilus Probiotic Tablet] linezolid 600 mg tablet 600 mg PO Q12H 30 Days #60 tab 04/18/19 diclofenac sodium 1 % topical gel 2 g TOPICAL ONCE 04/25/19 albuterol sulfate 90 mcg/actuation 2 puff INHALATION Q6H PRN #8.5 g 04/30/19 aerosol inhaler lisinopril 5 mg tablet 5 mg PO DAILY 04/30/19 Paternal Family History: Family History (Last Reviewed 04/30/19 @ 09:14 by Ryan Gandhi DO) Grandfather Cancer Father Prostate cancer Grandfather CVA (cerebral vascular accident) Family History: Cancer, - Lives: Spouse/ Significant Other Smoking Status: Unknown if ever smoked Tobacco Use: Non-smoker Alcohol: None Drugs: None Physical Exam Vital Signs Temp Pulse Resp BP Pulse Ox 97.4 F L 66 18 123/71 H 97 05/07/19 08:40 05/07/19 08:40 05/07/19 08:40 05/07/19 08:40 04/17/19 00:35 General: Alert, Oriented x3, Cooperative, No apparent distress, Well developed, Well nourished HEENT: Atraumatic, PERRLA, EOMI, Normocephalic Lungs: Normal air movement Psych/Mental Status: Normal Affect, Appropriate, Alert and oriented to time, place, person, mood and affect Assessment/Plan Active Problems (Last Reviewed 04/30/19 @ 09:14 by Ryan Gandhi DO) Unspecified complication of skin graft (allograft) (autograft) (Chronic) Skin graft (allograft) (autograft) failure (Chronic) Diabetes (Chronic) 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
[2019-05-08 08:30] VITALS: BP 116/71; BP 128/78; PULSE 62; PULSE 69; RESP 16; RESP 18; TEMP 35.9; TEMP 36.4
--- NOTE | 2019-05-08 11:41 | HBO.PN.PCM_ITS ---
History of Present Illness Date of Service: 05/08/19 Presenting 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: Nonhealing diabetic ulcers left lateral middle back and right lateral middle back with compromised skin grafts. BILL JACQUES is a 58 year old currently undergoing hyperbaric oxygen therapy for nonhealing diabetic ulcers of his left lateral mid-back and right lateral mid-back with compromised skin grafts. Progress: Today represents the patient's 38th hyperbaric oxygen therapy session of a total planned 40 sessions. Tolerance of hyperbaric oxygen therapy: Hyperbaric oxygen therapy was administered today as per our facility's protocol. The patient is status-post placement of a right tympanic membrane tube on Monday03/19/19. The patient tolerated hyperbaric oxygen therapy well without complaints or complications. Vital signs were stable and he was discharged in good condition. 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) LEYDI (obstructive sleep apnea) (Chronic) Diabetes (Chronic) Hearing problem (Chronic) Non-pressure chronic ulcer of skin of other sites with fat layer exposed (Chr onic) Nonhealing ulcers right lateral middle back and left lateral middle back Nonhealing surgical wound (Chronic) right lateral middle back and left lateral middle back after excision of nonhealing diabetic ulcers with skin flap reconstruction Type 2 diabetes mellitus (Chronic) Trigger finger, left ring finger (Chronic) Hypertension (Chronic) Neuroma (Chronic) Allergies/Adverse Reactions: Allergies No Known Allergies Allergy (Verified 02/21/19 08:44) Home Medications: Ambulatory Orders Medication Instructions Recorded Multivitamin with Minerals 1 ea PO DAILY 02/14/19 [Multiple Vitamin] Lactobacillus Acidophilus/Fos 1 ea PO BID #30 tab 02/18/19 [Acidophilus Probiotic Tablet] linezolid 600 mg tablet 600 mg PO Q12H 30 Days #60 tab 04/18/19 diclofenac sodium 1 % topical gel 2 g TOPICAL ONCE 04/25/19 albuterol sulfate 90 mcg/actuation 2 puff INHALATION Q6H PRN #8.5 g 04/30/19 aerosol inhaler lisinopril 5 mg tablet 5 mg PO DAILY 04/30/19 Paternal Family History: Family History (Last Reviewed 04/30/19 @ 09:14 by Ryan Gandhi DO) Grandfather Cancer Father Prostate cancer Grandfather CVA (cerebral vascular accident) Family History: Cancer, - Lives: Spouse/ Significant Other Smoking Status: Unknown if ever smoked Tobacco Use: Non-smoker Alcohol: None Drugs: None Physical Exam Vital Signs Temp Pulse Resp BP Pulse Ox 97.6 F L 69 18 116/71 97 05/08/19 08:30 05/08/19 08:30 05/08/19 08:30 05/08/19 08:30 04/17/19 00:35 Assessment/Plan Active Problems (Last Reviewed 04/30/19 @ 09:14 by Ryan Gandhi DO) Unspecified complication of skin graft (allograft) (autograft) (Chronic) Skin graft (allograft) (autograft) failure (Chronic) Diabetes (Chronic) 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
--- NOTE | 2019-05-09 08:24 | HBO.PN.PCM_ITS ---
History of Present Illness Date of Service: 05/09/19 Presenting 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: Nonhealing diabetic ulcers left lateral middle back and right lateral middle back with compromised skin grafts. BILL JACQUES is a 58 year old currently undergoing hyperbaric oxygen therapy for nonhealing diabetic ulcers of his left lateral mid-back and right lateral mid-back with compromised skin grafts. Progress: Today represents the patient's 39th hyperbaric oxygen therapy session of a total planned 40 sessions. Tolerance of hyperbaric oxygen therapy: Hyperbaric oxygen therapy was administered today as per our facility's protocol. The patient is status-post placement of a right tympanic membrane tube on Monday03/19/19. The patient tolerated hyperbaric oxygen therapy well without complaints or complications. Vital signs were stable and he was discharged in good condition. 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) LEYDI (obstructive sleep apnea) (Chronic) Diabetes (Chronic) Hearing problem (Chronic) Non-pressure chronic ulcer of skin of other sites with fat layer exposed (Chr onic) Nonhealing ulcers right lateral middle back and left lateral middle back Nonhealing surgical wound (Chronic) right lateral middle back and left lateral middle back after excision of nonhealing diabetic ulcers with skin flap reconstruction Type 2 diabetes mellitus (Chronic) Trigger finger, left ring finger (Chronic) Hypertension (Chronic) Neuroma (Chronic) Allergies/Adverse Reactions: Allergies No Known Allergies Allergy (Verified 02/21/19 08:44) Home Medications: Ambulatory Orders Medication Instructions Recorded Multivitamin with Minerals 1 ea PO DAILY 02/14/19 [Multiple Vitamin] Lactobacillus Acidophilus/Fos 1 ea PO BID #30 tab 02/18/19 [Acidophilus Probiotic Tablet] linezolid 600 mg tablet 600 mg PO Q12H 30 Days #60 tab 04/18/19 diclofenac sodium 1 % topical gel 2 g TOPICAL ONCE 04/25/19 albuterol sulfate 90 mcg/actuation 2 puff INHALATION Q6H PRN #8.5 g 04/30/19 aerosol inhaler lisinopril 5 mg tablet 5 mg PO DAILY 04/30/19 Paternal Family History: Family History (Last Reviewed 04/30/19 @ 09:14 by Ryan Gandhi DO) Grandfather Cancer Father Prostate cancer Grandfather CVA (cerebral vascular accident) Family History: Cancer, - Lives: Spouse/ Significant Other Smoking Status: Unknown if ever smoked Tobacco Use: Non-smoker Alcohol: None Drugs: None Physical Exam Vital Signs Temp Pulse Resp BP Pulse Ox 97.6 F L 69 18 116/71 97 05/08/19 08:30 05/08/19 08:30 05/08/19 08:30 05/08/19 08:30 04/17/19 00:35 General: Alert, Oriented x3, Cooperative, No apparent distress HEENT: Atraumatic, TM's Clear Lungs: Clear to auscultation, Normal air movement Cardiovascular: Regular rate, Regular Rhythm Psych/Mental Status: Normal Affect, Appropriate, Alert and oriented to time, place, person, mood and affect Assessment/Plan Active Problems (Last Reviewed 04/30/19 @ 09:14 by Ryan Gandhi DO) Unspecified complication of skin graft (allograft) (autograft) (Chronic) Skin graft (allograft) (autograft) failure (Chronic) Diabetes (Chronic) 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
[2019-05-09 08:40] VITALS: BP 109/69; BP 127/80; PULSE 68; PULSE 69; RESP 16; RESP 18; TEMP 36.3; TEMP 36.5
--- NOTE | 2019-05-10 08:28 | PCM.HBO.PN ---
History of Present Illness Date of Service: 05/10/19 Presenting 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: Nonhealing diabetic ulcers left lateral middle back and right lateral middle back with compromised skin grafts. BILL JACQUES is a 58 year old currently undergoing hyperbaric oxygen therapy for nonhealing diabetic ulcers of his left lateral mid-back and right lateral mid-back with compromised skin grafts. Progress: Today represents the patient's 40th and last scheduled hyperbaric oxygen therapy session of a total planned 40 sessions. Tolerance of hyperbaric oxygen therapy: Hyperbaric oxygen therapy was administered today as per our facility's protocol. The patient is status-post placement of a right tympanic membrane tube on Monday03/19/19. The patient tolerated hyperbaric oxygen therapy well without complaints or complications. Vital signs were stable and he was discharged in good condition. 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 Trigger finger, left ring finger (Chronic) Hypertension (Chronic) Neuroma (Chronic) Allergies/Adverse Reactions: Allergies No Known Allergies Allergy (Verified 02/21/19 08:44) Home Medications: Ambulatory Orders Medication Instructions Recorded Multivitamin with Minerals 1 ea PO DAILY 02/14/19 [Multiple Vitamin] Lactobacillus Acidophilus/Fos 1 ea PO BID #30 tab 02/18/19 [Acidophilus Probiotic Tablet] linezolid 600 mg tablet 600 mg PO Q12H 30 Days #60 tab 04/18/19 diclofenac sodium 1 % topical gel 2 g TOPICAL ONCE 04/25/19 albuterol sulfate 90 mcg/actuation 2 puff INHALATION Q6H PRN #8.5 g 04/30/19 aerosol inhaler lisinopril 5 mg tablet 5 mg PO DAILY 04/30/19 Paternal Family History: Family History (Last Reviewed 04/30/19 @ 09:14 by Ryan Gandhi DO) Grandfather Cancer Father Prostate cancer Grandfather CVA (cerebral vascular accident) Family History: Cancer, - Lives: Spouse/ Significant Other Smoking Status: Unknown if ever smoked Tobacco Use: Non-smoker Alcohol: None Drugs: None Physical Exam Vital Signs Temp Pulse Resp BP Pulse Ox 97.7 F L 68 18 109/69 97 05/09/19 08:40 05/09/19 08:40 05/09/19 08:40 05/09/19 08:40 04/17/19 00:35 General: Alert, Oriented x3, Cooperative, No apparent distress HEENT: Atraumatic, TM's Clear Lungs: Clear to auscultation, Normal air movement Cardiovascular: Regular rate, Regular Rhythm Psych/Mental Status: Normal Affect, Appropriate, Alert and oriented to time, place, person, mood and affect Assessment/Plan Active Problems (Last Reviewed 04/30/19 @ 09:14 by Ryan Gandhi DO) Unspecified complication of skin graft (allograft) (autograft) (Chronic) Skin graft (allograft) (autograft) failure (Chronic) Diabetes (Chronic) 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 The patient will continue with medical management of his wound, per his plan.
[2019-05-10 09:50] VITALS: BP 112/69; BP 112/78; PULSE 73; PULSE 79; RESP 18; TEMP 19.9; TEMP 36.2
[2019-05-13 08:11] VITALS: BP 117/71; PULSE 79; RESP 18; TEMP 36.7; BMI 28.4
--- NOTE | 2019-05-13 13:15 | PN.PCM_ITS ---
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 History of Wound: Surgery 02/18/19 - 1. Surgical preparation right lateral middle back with excision nonhealing diabetic ulcer. 2. Reconstruction with STSG from right posterior flank (21 cm2) and placement AmnioFill Placental Connective Tissue Powder (250 mg) and placement TAYLOR NPWT. 3. Surgical preparation left lateral middle back with excision nonhealing diabetic ulcer. 4. Reconstruction with STSG from left posterior flank (48 cm2) and placement of AmnioFill Placental Connective Tissue Powder (500 mg) and placement of TAYLOR NPWT. Wound care - Collagen hydrogel. Will apply for [employer]. He would benefit from an advanced wound healing product to help complete his healing process. Operative cultures - MRSE, Staphylococcus epidermidis, and Corynebacterium amycolatum/xer in the left lateral middle back and Corynebacterium amycolatum/xer and Salma albicans in the right lateral middle back. He was placed on Cleocin and Diflucan and has finished them. A repeat culture on 04/15/19 showed MRSE. He was placed on Zyvox. Prealbumin from 12/05/18 was 22.5. Encourage nutritonal supplementation with protein to help the healing process. He developed some compromise to the skin grafts on his back. He completed hisHBO treatments last week. Today he denies fever. His appetite is good. Progress of Wound: Improved. - Physical Exam Vital Signs Temp Pulse Resp BP Pulse Ox 98.0 F 79 18 117/71 97 05/13/19 08:11 05/13/19 08:11 05/13/19 08:11 05/13/19 08:11 04/17/19 00:35 General: Alert, Oriented x3, Cooperative HEENT: Atraumatic Oral: Moist Mucosa Lungs: Normal air movement Cardiovascular: Regular rate Extremities: No edema, Capillary Refill Less than 3 Seconds Skin: Ulcer/ Wound - Right middle back and left middle back ulcers Wound Measurements and Assessment WC - Nurse 1 - General Ulcer Measurement Start: 04/18/19 08:38 Freq: Status: Active Protocol: Activity Type Activity Date Activity User E-Sign Co-Sign Detail Recorded Client Recorded Date Recorded By Document 05/13/19 08:11 [facility] [id number] 05/13/19 08:13 [facility] 05/13/19 08:11 Wound Center Nurse 1 [Ulcer Assessment] 6. L lumbar back -Combined with other wound No -Current Size (cm) - Length 5 -Current Size (cm) - Width 8 -Current Size (cm) - Depth 0.2 -Total Square Cm 40 -Photo Taken No -Epithelialization None Present -Tunneling No -Undermining/Tunneling No -Circular Undermining No -Exudate Amt Medium -Exudate Type Serosanguineous -Wound Margin Flat & Intact -Granulation Amt Large (67-100%) -Granulation Quality Red -Slough/Fibrin Yes -Necrosis Amt Small (1-33%) -Necrotic Tissue Type Adherent Slough -Structure Exposed N/A -Texture (Mayra-wound Skin Appearance) Assessed -Moisture (Mayra-wound Skin Appearance Assessed,Dry/ ) Scaly -Color (Mayra-wound Skin Appearance) Assessed -Temperature (Mayra-wound Skin No Abnormality Appearance) (Pt Warm) -Tenderness on Palpation (Mayra-wound No Skin Appearance) -Ulcer Cleansing Rinsed/ Irrigated with Saline -Foul Odor after Cleansing No -Anesthetic Used 4% Lidocaine Solution 5. R scapula -Combined with other wound No -Current Size (cm) - Length 4 -Current Size (cm) - Width 6 -Current Size (cm) - Depth 0.2 -Total Square Cm 24 -Photo Taken No -Epithelialization None Present -Tunneling No -Undermining/Tunneling No -Circular Undermining No -Exudate Amt Small -Exudate Type Serosanguineous -Wound Margin Flat & Intact -Granulation Amt Large (67-100%) -Granulation Quality Red -Slough/Fibrin Yes -Necrosis Amt Small (1-33%) -Necrotic Tissue Type Adherent Slough -Structure Exposed N/A -Texture (Mayra-wound Skin Appearance) Assessed, Scarring -Moisture (Mayra-wound Skin Appearance Assessed,Dry/ ) Scaly -Color (Mayra-wound Skin Appearance) Assessed -Temperature (Mayra-wound Skin No Abnormality Appearance) (Pt Warm) -Tenderness on Palpation (Mayra-wound No Skin Appearance) -Ulcer Cleansing Rinsed/ Irrigated with Saline -Foul Odor after Cleansing No -Anesthetic Used 4% Lidocaine Solution [Edema Assessment] -Lower Limb Edema Present NA WC - Nurse 2 - General Ulcer CM Notes Start: 04/18/19 08:38 Freq: Status: Active Protocol: Activity Type Activity Date Activity User E-Sign Co-Sign Detail Recorded Client Recorded Date Recorded By Document 05/13/19 08:37 [facility] [id number] 05/13/19 08:47 [facility] 05/13/19 08:37 Wound Center Nurse 2 [Procedure/Treatment] 6. L lumbar back -Time 08:41 -Correct Patient Yes -Correct Side, Site, Position Yes -Correct Procedure Yes -Procedure Performed Yes -Type of Procedure Debridement -Clinical Debridement Subcutaneous -Post Debridement Size (cm) - Length 8 -Post Debridement Size (cm) - Width 5.1 -Post Debridement Size (cm) - Depth 0.2 -Total Square Cm 40.8 -Wound/Ulcer Outcome Not Healed -Ulcer Cleansing Rinsed/ Irrigated with Saline -Foul Odor after Cleansing No -Bioengineered Tissue No -Bleeding Controlled with Pressure -Offloading No -Treatment Response Procedure Tolerated Well 5. R scapula -Time 08:42 -Correct Patient Yes -Correct Side, Site, Position Yes -Correct Procedure Yes -Procedure Performed Yes -Type of Procedure Debridement -Clinical Debridement Subcutaneous -Post Debridement Size (cm) - Length 5.5 -Post Debridement Size (cm) - Width 2.0 -Post Debridement Size (cm) - Depth 0.3 -Total Square Cm 11.00 -Wound/Ulcer Outcome Not Healed -Ulcer Cleansing Rinsed/ Irrigated with Saline -Foul Odor after Cleansing No -Bioengineered Tissue No -Bleeding Controlled with Pressure -Offloading No -Treatment Response Procedure Tolerated Well [See Physician Procedure note for Specifics] Pain Scale: 0-10 Numeric [Pain] -Is Patient Pain Free? Yes Musculoskeletal: No Muscle Wasting Neurological: Neuro grossly intact Psych/Mental Status: Normal Affect, Appropriate Debridement Note Post-Debridement Measurements/Treatment WC - Nurse 2 - General Ulcer CM Notes Start: 04/18/19 08:38 Freq: Status: Active Protocol: Activity Type Activity Date Activity User E-Sign Co-Sign Detail Recorded Client Recorded Date Recorded By Document 04/22/19 08:53 [id number] 04/22/19 09:02 Document 04/29/19 08:44 [id number] 04/29/19 08:47 Document 05/06/19 11:28 [id number] 05/06/19 11:31 Document 05/13/19 08:37 [id number] 05/13/19 08:47 04/22/19 04/29/19 05/06/19 08:53 08:44 11:28 Wound Center Nurse 2 6. L lumbar back -Time 08:53 08:44 11:30 -Correct Patient Yes Yes Yes -Correct Side, Site, Position Yes Yes Yes -Correct Procedure Yes Yes Yes -Procedure Performed Yes Yes Yes -Type of Procedure Debridement Debridement Debridement -Clinical Debridement Subcutaneous Subcutaneous Subcutaneous -Post Debridement Size (cm) - Length 8.0 8 7.5 -Post Debridement Size (cm) - Width 4.7 5.2 5 -Post Debridement Size (cm) - Depth 0.2 0.2 0.2 -Total Square Cm 37.60 41.6 37.5 -Wound/Ulcer Outcome Not Healed Not Healed Not Healed -Ulcer Cleansing Rinsed/ Rinsed/ Rinsed/ Irrigated with Irrigated with Irrigated with Saline Saline Saline -Foul Odor after Cleansing No No No -Bioengineered Tissue No No No -Bleeding Controlled with Pressure Pressure Pressure -Offloading No No No -Treatment Response Procedure Procedure Procedure Tolerated Well Tolerated Well Tolerated Well 5. R scapula -Time 08:54 08:45 11:31 -Correct Patient Yes Yes Yes -Correct Side, Site, Position Yes Yes Yes -Correct Procedure Yes Yes Yes -Procedure Performed Yes Yes Yes -Type of Procedure Debridement Debridement Debridement -Clinical Debridement Subcutaneous Subcutaneous Subcutaneous -Post Debridement Size (cm) - Length 5.7 6.3 5.7 -Post Debridement Size (cm) - Width 1.8 2.1 2.6 -Post Debridement Size (cm) - Depth 0.2 0.3 0.3 -Total Square Cm 10.26 13.23 14.82 -Wound/Ulcer Outcome Not Healed Not Healed Not Healed -Ulcer Cleansing Rinsed/ Rinsed/ Rinsed/ Irrigated with Irrigated with Irrigated with Saline Saline Saline -Foul Odor after Cleansing No No No -Bioengineered Tissue No No No -Bleeding Controlled with Pressure Pressure Pressure -Offloading No No No -Treatment Response Procedure Procedure Procedure Tolerated Well Tolerated Well Tolerated Well Pain Scale: 0-10 Numeric Is Patient Pain Free? Yes Yes Yes 05/13/19 08:37 Wound Center Nurse 2 6. L lumbar back -Time 08:41 -Correct Patient Yes -Correct Side, Site, Position Yes -Correct Procedure Yes -Procedure Performed Yes -Type of Procedure Debridement -Clinical Debridement Subcutaneous -Post Debridement Size (cm) - Length 8 -Post Debridement Size (cm) - Width 5.1 -Post Debridement Size (cm) - Depth 0.2 -Total Square Cm 40.8 -Wound/Ulcer Outcome Not Healed -Ulcer Cleansing Rinsed/ Irrigated with Saline -Foul Odor after Cleansing No -Bioengineered Tissue No -Bleeding Controlled with Pressure -Offloading No -Treatment Response Procedure Tolerated Well 5. R scapula -Time 08:42 -Correct Patient Yes -Correct Side, Site, Position Yes -Correct Procedure Yes -Procedure Performed Yes -Type of Procedure Debridement -Clinical Debridement Subcutaneous -Post Debridement Size (cm) - Length 5.5 -Post Debridement Size (cm) - Width 2.0 -Post Debridement Size (cm) - Depth 0.3 -Total Square Cm 11.00 -Wound/Ulcer Outcome Not Healed -Ulcer Cleansing Rinsed/ Irrigated with Saline -Foul Odor after Cleansing No -Bioengineered Tissue No -Bleeding Controlled with Pressure -Offloading No -Treatment Response Procedure Tolerated Well Pain Scale: 0-10 Numeric Is Patient Pain Free? Yes Wound debrided: Middle back cluster Laterality: Right Type of Debridement: Excisional debridement Anesthesia Used: 5% Lidocaine Gel Depth: Down to and including healthy tissue, in the subcutaneous layer, to muscle Percentage of wound debrided: 100 Instrument Used: 3mm curette Tissue Removed: Subcutaneous tissue and slough Severity: Fat Layer Exposed Amount of bleeding with debridement: Mild Bleeding Controlled with: Pressure Patient tolerated procedure well - Additional Wound Wound debrided: Middle back cluster Laterality: Left Type of Debridement: Excisional debridement Anesthesia Used: 5% Lidocaine Gel Depth: Down to and including healthy tissue, in the subcutaneous layer Percentage of wound debrided: 100 Instrument Used: 3mm curette Tissue Removed: Subcutaneous tissue and slough Severity: Fat Layer Exposed Amount of bleeding with debridement: None Bleeding Controlled with: Pressure Patient tolerated procedure: Patient tolerated procedure well Assessment/Plan Assessment: 1. Nonhealing diabetic ulcer right lateral middle back. 2. Nonhealing diabetic ulcer left lateral middle back. 3. Diabetes mellitus. 4. s/p surgical preparation right lateral middle back with excision nonhealing diabetic ulcer and reconstruction with STSG from right posterior flank (21 cm2) and placement AmnioFill Placental Connective Tissue Powder (250 mg) and placement TAYLOR NPWT and surgical preparation left lateral middle back with excision nonhealing diabetic ulcer and reconstruction with STSG from left posterior flank (48 cm2) and placement of AmnioFill Placental Connective Tissue Powder (500 mg) and placement of TAYLOR NPWT. 5. Mild compromised skin grafts. Plan: Continue Collagen hydrogel to the compromised areas of both skin graft ulcers, cover with Adaptic. He would benefit from [employer] advanced wound healing product to help finish healing his right and left cluster ulcer. He completed HBO last week. Operative cultures showed Corynebaterium amycolatum/xer and Salma albicans in the right lateral middle back ulcer and MRSE, Staphylococcus epidermidis, and Corynebacterium amycolatum/xer in the left lateral middle back ulcer. He has finished the Cleocin and the Diflucan. His LFT's on 02/26/19 were normal. A recent culture on 04/15/19 showed MRSE and he was placed on Zyvox, which he is tolerating. Prealbumin from 12/05/18 was 22.5. Encourage nutritional supplementation with protein to help the healing process. Followup one week. Code Visit [id number]: [id number] Global Visit
== END 2019-05-17 23:59 ==
LOC: WC 08:00
PROVIDERS: Family Provider Family Medicine; PCP Family Medicine; Visit Provider Nurse Practitioner Family
DX: E11.622 Type 2 diabetes mellitus with other skin ulcer (principal); L98.422 Non-pressure chronic ulcer of back with fat layer exposed; T86.821 Skin graft (allograft) (autograft) failure; Y83.2 Surgical operation with anastomosis, bypass or graft as the cause of abnormal reaction of the patient, or of later complication, without mention of misadventure at the time of the procedure; R51 Headache; G47.33 Obstructive sleep apnea (adult) (pediatric); I10 Essential (primary) hypertension
CPT/HCPCS: 11042; 11045; 99183; G0277

== ENCOUNTER 2019-06-10 08:00 | Outpatient (RCR) | payer OTHER, SELFPAY ==
[2019-05-18 00:37] VITALS: BP 117/71; PULSE 79; RESP 18; TEMP 36.7; O2SAT 97
[2019-05-20 08:10] VITALS: BP 117/72; PULSE 75; RESP 20; TEMP 36.6; BMI 28.4
--- NOTE | 2019-05-20 14:57 | PCM.WC.PN ---
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 History of Wound: Surgery 02/18/19 - 1. Surgical preparation right lateral middle back with excision nonhealing diabetic ulcer. 2. Reconstruction with STSG from right posterior flank (21 cm2) and placement AmnioFill Placental Connective Tissue Powder (250 mg) and placement TAYLOR NPWT. 3. Surgical preparation left lateral middle back with excision nonhealing diabetic ulcer. 4. Reconstruction with STSG from left posterior flank (48 cm2) and placement of AmnioFill Placental Connective Tissue Powder (500 mg) and placement of TAYLOR NPWT. Wound care - Collagen hydrogel with adaptic. Applied for [employer], waiting for insurance approval. He would benefit from an advanced wound healing product to help complete his healing process. Operative cultures - MRSE, Staphylococcus epidermidis, and Corynebacterium amycolatum/xer in the left lateral middle back and Corynebacterium amycolatum/xer and Salma albicans in the right lateral middle back. He was placed on Cleocin and Diflucan and has finished them. A repeat culture on 04/15/19 showed MRSE. He was placed on Zyvox. Prealbumin from 12/05/18 was 22.5. Encourage nutritonal supplementation with protein to help the healing process. He developed some compromise to the skin grafts on his back. He completed his HBO treatments. Today he denies fever. His appetite is good. Progress of Wound: Improved. - Physical Exam Vital Signs Temp Pulse Resp BP Pulse Ox 97.8 F 75 20 H 117/72 97 05/20/19 08:10 05/20/19 08:10 05/20/19 08:10 05/20/19 08:10 05/18/19 00:37 General: Alert, Oriented x3, Cooperative HEENT: Atraumatic Oral: Moist Mucosa Lungs: Normal air movement Cardiovascular: Regular rate Extremities: Capillary Refill Less than 3 Seconds Skin: Ulcer/ Wound - right middle lateral back and left middle lateral back ulcers Wound Measurements and Assessment WC - Nurse 1 - General Ulcer Measurement Start: 05/20/19 08:10 Freq: Status: Active Protocol: Activity Type Activity Date Activity User E-Sign Co-Sign Detail Recorded Client Recorded Date Recorded By Document 05/20/19 08:10 DL [id number] 05/20/19 08:17 DL 05/20/19 08:10 Wound Center Nurse 1 [Ulcer Assessment] 6. L lumbar back -Current Size (cm) - Length 4.7 -Current Size (cm) - Width 7.2 -Current Size (cm) - Depth 0.2 -Total Square Cm 33.84 -Photo Taken No -Epithelialization Large 67-100% -Exudate Amt Small -Exudate Type Serosanguineous -Wound Margin Distinct, Outline Attached -Granulation Amt Large (67-100%) -Granulation Quality Red -Necrosis Amt Small (1-33%) -Necrotic Tissue Type Adherent Slough -Structure Exposed N/A -Texture (Mayra-wound Skin Appearance) Scarring -Moisture (Mayra-wound Skin Appearance No Abnormality ) -Color (Mayra-wound Skin Appearance) No Abnormality -Temperature (Mayra-wound Skin No Abnormality Appearance) (Pt Warm) -Tenderness on Palpation (Mayra-wound No Skin Appearance) -Ulcer Cleansing Rinsed/ Irrigated with Saline -Foul Odor after Cleansing No -Anesthetic Used 4% Lidocaine Solution 5. R scapula -Current Size (cm) - Length 4 -Current Size (cm) - Width 4 -Current Size (cm) - Depth 0.2 -Total Square Cm 16 -Photo Taken No -Exudate Amt Small -Exudate Type Serosanguineous -Wound Margin Distinct, Outline Attached -Granulation Amt Large (67-100%) -Granulation Quality Red -Necrosis Amt Small (1-33%) -Necrotic Tissue Type Adherent Slough -Texture (Mayra-wound Skin Appearance) Scarring -Moisture (Mayra-wound Skin Appearance No Abnormality ) -Color (Mayra-wound Skin Appearance) No Abnormality -Temperature (Mayra-wound Skin No Abnormality Appearance) (Pt Warm) -Tenderness on Palpation (Mayra-wound Yes Skin Appearance) -Ulcer Cleansing Rinsed/ Irrigated with Saline -Foul Odor after Cleansing No -Anesthetic Used 4% Lidocaine Solution SANDEEP - Nurse 2 - General Ulcer CM Notes Start: 05/20/19 08:10 Freq: Status: Active Protocol: Activity Type Activity Date Activity User E-Sign Co-Sign Detail Recorded Client Recorded Date Recorded By Document 05/20/19 08:31 [id number] 05/20/19 08:37 05/20/19 08:31 Wound Center Nurse 2 [Procedure/Treatment] 6. L lumbar back -Time 08:31 -Correct Patient Yes -Correct Side, Site, Position Yes -Correct Procedure Yes -Procedure Performed Yes -Type of Procedure Debridement -Clinical Debridement Subcutaneous -Post Debridement Size (cm) - Length 8.5 -Post Debridement Size (cm) - Width 4.5 -Post Debridement Size (cm) - Depth 0.2 -Total Square Cm 38.25 -Wound/Ulcer Outcome Not Healed -Ulcer Cleansing Rinsed/ Irrigated with Saline -Foul Odor after Cleansing No -Bioengineered Tissue No -Bleeding Controlled with Pressure -Offloading No -Treatment Response Procedure Tolerated Well 5. R scapula -Time 08:31 -Correct Patient Yes -Correct Side, Site, Position Yes -Correct Procedure Yes -Procedure Performed Yes -Type of Procedure Debridement -Clinical Debridement Subcutaneous -Post Debridement Size (cm) - Length 5.8 -Post Debridement Size (cm) - Width 2.4 -Post Debridement Size (cm) - Depth 0.2 -Total Square Cm 13.92 -Wound/Ulcer Outcome Not Healed -Ulcer Cleansing Rinsed/ Irrigated with Saline -Foul Odor after Cleansing No -Bioengineered Tissue No -Bleeding Controlled with Pressure -Offloading No -Treatment Response Procedure Tolerated Well [See Physician Procedure note for Specifics] Pain Scale: 0-10 Numeric [Pain] -Is Patient Pain Free? Yes Musculoskeletal: No Muscle Wasting Neurological: Neuro grossly intact Psych/Mental Status: Normal Affect, Appropriate Debridement Note Post-Debridement Measurements/Treatment SANDEEP - Nurse 2 - General Ulcer CM Notes Start: 05/20/19 08:10 Freq: Status: Active Protocol: Activity Type Activity Date Activity User E-Sign Co-Sign Detail Recorded Client Recorded Date Recorded By Document 05/20/19 08:31 [id number] 05/20/19 08:37 [facility] 05/20/19 08:31 Wound Center Nurse 2 6. L lumbar back -Time 08:31 -Correct Patient Yes -Correct Side, Site, Position Yes -Correct Procedure Yes -Procedure Performed Yes -Type of Procedure Debridement -Clinical Debridement Subcutaneous -Post Debridement Size (cm) - Length 8.5 -Post Debridement Size (cm) - Width 4.5 -Post Debridement Size (cm) - Depth 0.2 -Total Square Cm 38.25 -Wound/Ulcer Outcome Not Healed -Ulcer Cleansing Rinsed/ Irrigated with Saline -Foul Odor after Cleansing No -Bioengineered Tissue No -Bleeding Controlled with Pressure -Offloading No -Treatment Response Procedure Tolerated Well 5. R scapula -Time 08:31 -Correct Patient Yes -Correct Side, Site, Position Yes -Correct Procedure Yes -Procedure Performed Yes -Type of Procedure Debridement -Clinical Debridement Subcutaneous -Post Debridement Size (cm) - Length 5.8 -Post Debridement Size (cm) - Width 2.4 -Post Debridement Size (cm) - Depth 0.2 -Total Square Cm 13.92 -Wound/Ulcer Outcome Not Healed -Ulcer Cleansing Rinsed/ Irrigated with Saline -Foul Odor after Cleansing No -Bioengineered Tissue No -Bleeding Controlled with Pressure -Offloading No -Treatment Response Procedure Tolerated Well Pain Scale: 0-10 Numeric Is Patient Pain Free? Yes Wound debrided: middle lateral back ulcer cluster Laterality: Left Type of Debridement: Excisional debridement Anesthesia Used: 5% Lidocaine Gel Depth: Down to and including healthy tissue, in the subcutaneous layer Percentage of wound debrided: 100 Instrument Used: 3mm curette Tissue Removed: subcutaneous tissue and slough Severity: Limited To Skin Breakdown Amount of bleeding with debridement: Mild Bleeding Controlled with: Pressure Patient tolerated procedure well - Additional Wound Wound debrided: middle lateral back Laterality: Right Type of Debridement: Excisional debridement Anesthesia Used: 5% Lidocaine Gel Depth: Down to and including healthy tissue, in the subcutaneous layer Percentage of wound debrided: 100 Instrument Used: 3mm curette Tissue Removed: subcutaneous tissue and slough Severity: Limited To Skin Breakdown Amount of bleeding with debridement: Mild Bleeding Controlled with: Pressure Patient tolerated procedure: Patient tolerated procedure well Assessment/Plan Assessment: 1. Nonhealing diabetic ulcer right lateral middle back. 2. Nonhealing diabetic ulcer left lateral middle back. 3. Diabetes mellitus. 4. s/p surgical preparation right lateral middle back with excision nonhealing diabetic ulcer and reconstruction with STSG from right posterior flank (21 cm2) and placement AmnioFill Placental Connective Tissue Powder (250 mg) and placement TAYLOR NPWT and surgical preparation left lateral middle back with excision nonhealing diabetic ulcer and reconstruction with STSG from left posterior flank (48 cm2) and placement of AmnioFill Placental Connective Tissue Powder (500 mg) and placement of TAYLOR NPWT. 5. Mild compromised skin grafts. Plan: Continue Collagen hydrogel to the compromised areas of both skin graft ulcers, cover with Adaptic. He would benefit from [employer] advanced wound healing product to help finish healing his right and left cluster ulcer. He completed HBO. Operative cultures showed Corynebaterium amycolatum/xer and Salma albicans in the right lateral middle back ulcer and MRSE, Staphylococcus epidermidis, and Corynebacterium amycolatum/xer in the left lateral middle back ulcer. He has finished the Cleocin and the Diflucan. His LFT's on 02/26/19 were normal. A recent culture on 04/15/19 showed MRSE and he was placed on Zyvox, which he is tolerating. Prealbumin from 12/05/18 was 22.5. Encourage nutritional supplementation with protein to help the healing process. Followup one week. Code Visit [id number]: [id number] Global Visit
[2019-05-27 08:09] VITALS: BP 125/69; PULSE 79; RESP 18; TEMP 36.6; BMI 28.4
--- NOTE | 2019-05-27 12:17 | PN.PCM_ITS ---
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 History of Wound: Surgery 02/18/19 - 1. Surgical preparation right lateral middle back with excision nonhealing diabetic ulcer. 2. Reconstruction with STSG from right posterior flank (21 cm2) and placement AmnioFill Placental Connective Tissue Powder (250 mg) and placement TAYLOR NPWT. 3. Surgical preparation left lateral middle back with excision nonhealing diabetic ulcer. 4. Reconstruction with STSG from left posterior flank (48 cm2) and placement of AmnioFill Placental Connective Tissue Powder (500 mg) and placement of TAYLOR NPWT. Wound care - Collagen hydrogel with adaptic. Applied for Outcome Referrals, waiting for insurance approval. He would benefit from an advanced wound healing product to help complete his healing process. Operative cultures - MRSE, Staphylococcus epidermidis, and Corynebacterium amycolatum/xer in the left lateral middle back and Corynebacterium amycolatum/xer and Salma albicans in the right lateral middle back. He was placed on Cleocin and Diflucan and has finished them. A repeat culture on 04/15/19 showed MRSE. He was placed on Zyvox. Prealbumin from 12/05/18 was 22.5. Encourage nutritonal supplementation with protein to help the healing process. He developed some compromise to the skin grafts on his back. He completed his HBO treatments. Cultures were obtained today bilaterally. If there is bacterial growth, it may necessitate treatment with antibiotics. Today he denies fever. His appetite is good. Progress of Wound: Improved. - Physical Exam Vital Signs Temp Pulse Resp BP Pulse Ox 97.9 F 79 18 125/69 H 97 05/27/19 08:09 05/27/19 08:09 05/27/19 08:09 05/27/19 08:09 05/18/19 00:37 General: Alert, Oriented x3, Cooperative HEENT: Atraumatic Oral: Moist Mucosa Lungs: Normal air movement Cardiovascular: Regular rate Abdomen: Soft Extremities: No edema, Capillary Refill Less than 3 Seconds Skin: Ulcer/ Wound - Right middle back ulcer cluster and left middle back ulcer cluster Wound Measurements and Assessment WC - Nurse 1 - General Ulcer Measurement Start: 05/20/19 08:10 Freq: Status: Active Protocol: Activity Type Activity Date Activity User E-Sign Co-Sign Detail Recorded Client Recorded Date Recorded By Document 05/27/19 08:09 BS [id number] 05/27/19 08:17 BS 05/27/19 08:09 Wound Center Nurse 1 [Ulcer Assessment] 6. L lumbar back -Combined with other wound No -Current Size (cm) - Length 9 -Current Size (cm) - Width 4.5 -Current Size (cm) - Depth 0.1 -Total Square Cm 40.5 -Anesthetic Used 4% Lidocaine Solution 5. R scapula -Combined with other wound No -Current Size (cm) - Length 2 -Current Size (cm) - Width 4 -Current Size (cm) - Depth 0.1 -Total Square Cm 8 -Temperature (Mayra-wound Skin No Abnormality Appearance) (Pt Warm) -Tenderness on Palpation (Mayra-wound No Skin Appearance) -Ulcer Cleansing Rinsed/ Irrigated with Saline -Foul Odor after Cleansing No -Anesthetic Used 4% Lidocaine Solution WC - Nurse 2 - General Ulcer CM Notes Start: 05/20/19 08:10 Freq: Status: Active Protocol: Activity Type Activity Date Activity User E-Sign Co-Sign Detail Recorded Client Recorded Date Recorded By Document 05/27/19 08:53 [facility] [id number] 05/27/19 09:01 [facility] 05/27/19 08:53 Wound Center Nurse 2 [Procedure/Treatment] 6. L lumbar back -Time 08:53 -Correct Patient Yes -Correct Side, Site, Position Yes -Correct Procedure Yes -Procedure Performed Yes -Type of Procedure Debridement -Clinical Debridement Subcutaneous -Post Debridement Size (cm) - Length 5.5 -Post Debridement Size (cm) - Width 8.3 -Post Debridement Size (cm) - Depth 0.3 -Total Square Cm 45.65 -Wound/Ulcer Outcome Not Healed -Ulcer Cleansing Rinsed/ Irrigated with Saline -Foul Odor after Cleansing No -Bioengineered Tissue No -Bleeding Controlled with Pressure -Offloading No -Treatment Response Procedure Tolerated Well 5. R scapula -Time 08:54 -Correct Patient Yes -Correct Side, Site, Position Yes -Correct Procedure Yes -Procedure Performed Yes -Type of Procedure Debridement -Clinical Debridement Subcutaneous -Post Debridement Size (cm) - Length 5.8 -Post Debridement Size (cm) - Width 1.7 -Post Debridement Size (cm) - Depth 0.3 -Total Square Cm 9.86 -Wound/Ulcer Outcome Not Healed -Ulcer Cleansing Rinsed/ Irrigated with Saline -Foul Odor after Cleansing No -Bioengineered Tissue No -Bleeding Controlled with Pressure -Offloading No -Treatment Response Procedure Tolerated Well [See Physician Procedure note for Specifics] Pain Scale: 0-10 Numeric [Pain] -Is Patient Pain Free? Yes Musculoskeletal: No Muscle Wasting Neurological: Neuro grossly intact Psych/Mental Status: Normal Affect, Appropriate Debridement Note Post-Debridement Measurements/Treatment WC - Nurse 2 - General Ulcer CM Notes Start: 05/20/19 08:10 Freq: Status: Active Protocol: Activity Type Activity Date Activity User E-Sign Co-Sign Detail Recorded Client Recorded Date Recorded By Document 05/20/19 08:31 [id number] 05/20/19 08:37 Document 05/27/19 08:53 [id number] 05/27/19 09:01 05/20/19 05/27/19 08:31 08:53 Wound Center Nurse 2 6. L lumbar back -Time 08:31 08:53 -Correct Patient Yes Yes -Correct Side, Site, Position Yes Yes -Correct Procedure Yes Yes -Procedure Performed Yes Yes -Type of Procedure Debridement Debridement -Clinical Debridement Subcutaneous Subcutaneous -Post Debridement Size (cm) - Length 8.5 5.5 -Post Debridement Size (cm) - Width 4.5 8.3 -Post Debridement Size (cm) - Depth 0.2 0.3 -Total Square Cm 38.25 45.65 -Wound/Ulcer Outcome Not Healed Not Healed -Ulcer Cleansing Rinsed/ Rinsed/ Irrigated with Irrigated with Saline Saline -Foul Odor after Cleansing No No -Bioengineered Tissue No No -Bleeding Controlled with Pressure Pressure -Offloading No No -Treatment Response Procedure Procedure Tolerated Well Tolerated Well 5. R scapula -Time 08:31 08:54 -Correct Patient Yes Yes -Correct Side, Site, Position Yes Yes -Correct Procedure Yes Yes -Procedure Performed Yes Yes -Type of Procedure Debridement Debridement -Clinical Debridement Subcutaneous Subcutaneous -Post Debridement Size (cm) - Length 5.8 5.8 -Post Debridement Size (cm) - Width 2.4 1.7 -Post Debridement Size (cm) - Depth 0.2 0.3 -Total Square Cm 13.92 9.86 -Wound/Ulcer Outcome Not Healed Not Healed -Ulcer Cleansing Rinsed/ Rinsed/ Irrigated with Irrigated with Saline Saline -Foul Odor after Cleansing No No -Bioengineered Tissue No No -Bleeding Controlled with Pressure Pressure -Offloading No No -Treatment Response Procedure Procedure Tolerated Well Tolerated Well Pain Scale: 0-10 Numeric Is Patient Pain Free? Yes Yes Wound debrided: middle back Laterality: Right Type of Debridement: Excisional debridement Anesthesia Used: 5% Lidocaine Gel Depth: Down to and including healthy tissue, in the subcutaneous layer Percentage of wound debrided: 100 Instrument Used: 3mm curette Tissue Removed: Subcutaneous tissue and slough Severity: Limited To Skin Breakdown Amount of bleeding with debridement: Mild Bleeding Controlled with: Pressure Patient tolerated procedure well - Additional Wound Wound debrided: middle back cluster Laterality: Left Type of Debridement: Excisional debridement Anesthesia Used: 5% Lidocaine Gel Depth: Down to and including healthy tissue, in the subcutaneous layer Percentage of wound debrided: 100 Instrument Used: 3mm curette Tissue Removed: Subcutaneous tissue and slough Severity: Limited To Skin Breakdown Amount of bleeding with debridement: Mild Bleeding Controlled with: Pressure Patient tolerated procedure: Patient tolerated procedure well Assessment/Plan Active Problems (Last Reviewed 04/30/19 @ 09:[address] 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 Nonhealing diabetic ulcer right lateral middle back. 2. Nonhealing diabetic ulcer left lateral middle back. 3. Diabetes mellitus. 4. s/p surgical preparation right lateral middle back with excision nonhealing diabetic ulcer and reconstruction with STSG from right posterior flank (21 cm2) and placement AmnioFill Placental Connective Tissue Powder (250 mg) and placement TAYLOR NPWT and surgical preparation left lateral middle back with excision nonhealing diabetic ulcer and reconstruction with STSG from left posterior flank (48 cm2) and placement of AmnioFill Placental Connective Tissue Powder (500 mg) and placement of TAYLOR NPWT. 5. Mild compromised skin grafts. Plan: Continue Collagen hydrogel to the compromised areas of both skin graft ulcers, cover with Adaptic. He would benefit from Silentium advanced wound healing product to help finish healing his right and left cluster ulcer. Waiting for approval from his insurance company. He completed HBO. Operative cultures showed Corynebaterium amycolatum/xer and Salma albicans in the right lateral middle back ulcer and MRSE, Staphylococcus epidermidis, and Corynebacterium amycolatum/xer in the left lateral middle back ulcer. He has finished the Cleocin and the Diflucan. His LFT's on 02/26/19 were normal. A culture on 04/15/19 showed MRSE and he was placed on Zyvox, which he is tolerating. A culture was obtained today of both ulcer clustes due to the pain he is having in one area on both ulcers. Prealbumin from 12/05/18 was 22.5. Encourage nutritional supplementation with protein to help the healing process. Followup one week. Code Visit [id number]: [id number] Global Visit
[2019-06-03 08:15] VITALS: BP 120/67; PULSE 70; RESP 16; TEMP 36.8; BMI 28.4
--- NOTE | 2019-06-03 17:22 | PN.PCM_ITS ---
Type of Wound Date of Service: 06/03/19 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: Nonhealing diabetic ulcers left lateral middle back and right lateral middle back with compromised skin grafts. History of Wound: Surgery 02/18/19 - 1. Surgical preparation right lateral middle back with excision nonhealing diabetic ulcer. 2. Reconstruction with STSG from right posterior flank (21 cm2) and placement AmnioFill Placental Connective Tissue Powder (250 mg) and placement TAYLOR NPWT. 3. Surgical preparation left lateral middle back with excision nonhealing diabetic ulcer. 4. Reconstruction with STSG from left posterior flank (48 cm2) and placement of AmnioFill Placental Connective Tissue Powder (500 mg) and placement of TAYLOR NPWT. Wound care - Collagen hydrogel. Operative cultures - MRSE, Staphylococcus epidermidis, and Corynebacterium amycolatum/xer in the left lateral middle back and Corynebacterium amycolatum/xer and Salma albicans in the right lateral middle back. He was placed on Cleocin and Diflucan and has finished them. A repeat culture on 04/15/19 showed MRSE. He was placed on Zyvox and has finished them. Repeat wound culture on 05/27/19 showed Staphylococcus epidermidis in both ulcers. Doxycycline was restarted. Prealbumin from 12/05/18 was 22.5. Encourage nutritonal supplementation with protein to help the healing process. He developed some compromise to the skin grafts on his back. He completed HBO treatments and has tolerated them. Today he denies fever. His appetite is good. He is interested in placement of Amnio [place] advanced skin product to the ulcers. Insurance approval has been obtained. Progress of Wound: Improved. - Physical Exam Vital Signs Temp Pulse Resp BP Pulse Ox 98.2 F 70 16 120/67 97 06/03/19 08:15 06/03/19 08:15 06/03/19 08:15 06/03/19 08:15 05/18/19 00:37 Wound Measurements and Assessment WC - Nurse 1 - General Ulcer Measurement Start: 05/20/19 08:10 Freq: Status: Active Protocol: Activity Type Activity Date Activity User E-Sign Co-Sign Detail Recorded Client Recorded Date Recorded By Document 06/03/19 08:15 MW [id number] 06/03/19 08:22 MW 06/03/19 08:15 Wound Center Nurse 1 [Ulcer Assessment] 6. L lumbar back -Combined with other wound No -Current Size (cm) - Length 6.0 -Current Size (cm) - Width 7.5 -Current Size (cm) - Depth 0.1 -Total Square Cm 45.00 -Photo Taken No -Epithelialization None Present -Tunneling No -Undermining/Tunneling No -Circular Undermining No -Exudate Amt Small -Exudate Type Serosanguineous -Wound Margin Flat & Intact -Granulation Amt Medium (34-66%) -Granulation Quality [place] -Slough/Fibrin Yes -Necrosis Amt Small (1-33%) -Necrotic Tissue Type Adherent Slough -Structure Exposed N/A -Texture (Mayra-wound Skin Appearance) Assessed, Scarring -Moisture (Mayra-wound Skin Appearance No Abnormality, ) Assessed -Color (Mayra-wound Skin Appearance) No Abnormality, Assessed -Temperature (Mayra-wound Skin No Abnormality Appearance) (Pt Warm) -Tenderness on Palpation (Mayra-wound No Skin Appearance) -Ulcer Cleansing Rinsed/ Irrigated with Saline -Foul Odor after Cleansing No -Anesthetic Used 5% Lidocaine Gel 5. R scapula -Combined with other wound No -Current Size (cm) - Length 3.8 -Current Size (cm) - Width 4.7 -Current Size (cm) - Depth 0.1 -Total Square Cm 17.86 -Photo Taken No -Epithelialization None Present -Tunneling No -Undermining/Tunneling No -Circular Undermining No -Exudate Amt Small -Exudate Type Serosanguineous -Wound Margin Flat & Intact -Granulation Amt Medium (34-66%) -Granulation Quality [place] -Slough/Fibrin Yes -Necrosis Amt Small (1-33%) -Necrotic Tissue Type Adherent Slough -Structure Exposed N/A -Texture (Mayra-wound Skin Appearance) Assessed, Scarring -Moisture (Mayra-wound Skin Appearance No Abnormality, ) Assessed -Color (Mayra-wound Skin Appearance) No Abnormality, Assessed -Temperature (Mayra-wound Skin No Abnormality Appearance) (Pt Warm) -Tenderness on Palpation (Mayra-wound No Skin Appearance) -Ulcer Cleansing Rinsed/ Irrigated with Saline -Foul Odor after Cleansing No -Anesthetic Used 5% Lidocaine Gel [Edema Assessment] -Lower Limb Edema Present No WC - Nurse 2 - General Ulcer CM Notes Start: 05/20/19 08:10 Freq: Status: Active Protocol: Activity Type Activity Date Activity User E-Sign Co-Sign Detail Recorded Client Recorded Date Recorded By Document 06/03/19 08:33 [id number] 06/03/19 08:36 06/03/19 08:33 Wound Center Nurse 2 [Procedure/Treatment] 6. L lumbar back -Time 08:34 -Correct Patient Yes -Correct Side, Site, Position Yes -Correct Procedure Yes -Procedure Performed Yes -Type of Procedure Debridement -Clinical Debridement Subcutaneous -Post Debridement Size (cm) - Length 5 -Post Debridement Size (cm) - Width 3.5 -Post Debridement Size (cm) - Depth 0.2 -Total Square Cm 17.5 -Wound/Ulcer Outcome Not Healed -Ulcer Cleansing Rinsed/ Irrigated with Saline -Foul Odor after Cleansing No -Bioengineered Tissue No -Expiration Date 01/22/24 -Product Lot Number [id number] -Percent Used 100 -Saline Lot Number [id number] -Bleeding Controlled with Pressure -Other amnioexcel -Offloading No -Treatment Response Procedure Tolerated Well 5. R scapula -Time 08:35 -Correct Patient Yes -Correct Side, Site, Position Yes -Correct Procedure Yes -Procedure Performed Yes -Type of Procedure Debridement -Clinical Debridement Subcutaneous -Post Debridement Size (cm) - Length 6.0 -Post Debridement Size (cm) - Width 2.2 -Post Debridement Size (cm) - Depth 0.2 -Total Square Cm 13.20 -Wound/Ulcer Outcome Not Healed -Ulcer Cleansing Rinsed/ Irrigated with Saline -Foul Odor after Cleansing No -Bioengineered Tissue No -Expiration Date 01/22/24 -Product Lot Number [id number] -Percent Used 100 -Saline Lot Number [id number] -Bleeding Controlled with Pressure -Other amnioexcel -Offloading No -Treatment Response Procedure Tolerated Well [See Physician Procedure note for Specifics] Pain Scale: 0-10 Numeric [Pain] -Is Patient Pain Free? Yes Debridement Note Post-Debridement Measurements/Treatment WC - Nurse 2 - General Ulcer CM Notes Start: 05/20/19 08:10 Freq: Status: Active Protocol: Activity Type Activity Date Activity User E-Sign Co-Sign Detail Recorded Client Recorded Date Recorded By Document 05/20/19 08:31 [id number] 05/20/19 08:37 Document 05/27/19 08:53 [id number] 05/27/19 09:01 Document 06/03/19 08:33 [id number] 06/03/19 08:36 05/20/19 05/27/19 06/03/19 08:31 08:53 08:33 Wound Center Nurse 2 6. L lumbar back -Time 08:31 08:53 08:34 -Correct Patient Yes Yes Yes -Correct Side, Site, Position Yes Yes Yes -Correct Procedure Yes Yes Yes -Procedure Performed Yes Yes Yes -Type of Procedure Debridement Debridement Debridement -Clinical Debridement Subcutaneous Subcutaneous Subcutaneous -Post Debridement Size (cm) - Length 8.5 5.5 5 -Post Debridement Size (cm) - Width 4.5 8.3 3.5 -Post Debridement Size (cm) - Depth 0.2 0.3 0.2 -Total Square Cm 38.25 45.65 17.5 -Wound/Ulcer Outcome Not Healed Not Healed Not Healed -Ulcer Cleansing Rinsed/ Rinsed/ Rinsed/ Irrigated with Irrigated with Irrigated with Saline Saline Saline -Foul Odor after Cleansing No No No -Bioengineered Tissue No No No -Expiration Date 01/22/24 -Product Lot Number [id number] -Percent Used 100 -Saline Lot Number [id number] -Bleeding Controlled with Pressure Pressure Pressure -Other amnioexcel -Offloading No No No -Treatment Response Procedure Procedure Procedure Tolerated Well Tolerated Well Tolerated Well 5. R scapula -Time 08:31 08:54 08:35 -Correct Patient Yes Yes Yes -Correct Side, Site, Position Yes Yes Yes -Correct Procedure Yes Yes Yes -Procedure Performed Yes Yes Yes -Type of Procedure Debridement Debridement Debridement -Clinical Debridement Subcutaneous Subcutaneous Subcutaneous -Post Debridement Size (cm) - Length 5.8 5.8 6.0 -Post Debridement Size (cm) - Width 2.4 1.7 2.2 -Post Debridement Size (cm) - Depth 0.2 0.3 0.2 -Total Square Cm 13.92 9.86 13.20 -Wound/Ulcer Outcome Not Healed Not Healed Not Healed -Ulcer Cleansing Rinsed/ Rinsed/ Rinsed/ Irrigated with Irrigated with Irrigated with Saline Saline Saline -Foul Odor after Cleansing No No No -Bioengineered Tissue No No No -Expiration Date 01/22/24 -Product Lot Number [id number] -Percent Used 100 -Saline Lot Number [id number] -Bleeding Controlled with Pressure Pressure Pressure -Other amnioexcel -Offloading No No No -Treatment Response Procedure Procedure Procedure Tolerated Well Tolerated Well Tolerated Well Pain Scale: 0-10 Numeric Is Patient Pain Free? Yes Yes Yes Wound debrided: #5 Right lateral middle back. Laterality: Right Wound Grade/Stage: 2. Type of Debridement: Excisional debridement Anesthesia Used: 4% Lidocaine Solution Depth: Down to and including healthy tissue, in the subcutaneous layer Percentage of wound debrided: 100 Instrument Used: 3mm curette Tissue Removed: subcutaneous tissue. Severity: Fat Layer Exposed Amount of bleeding with debridement: Mild Bleeding Controlled with: Pressure Patient tolerated procedure well, - - I placed Amnio [place] into the ulcer. This is application #1. Expiration - 01/22/24. Product Lot Number - [id number]. Percent used - 100%. Saline Lot Number - [id number]. - Additional Wound Wound debrided: #6 Left lateral middle back. Laterality: Left Wound Grade/Stage: 2. Type of Debridement: Excisional debridement Anesthesia Used: 4% Lidocaine Solution Depth: Down to and including healthy tissue, in the subcutaneous layer Percentage of wound debrided: 100 Instrument Used: 3mm curette Tissue Removed: subcutaneous tissue. Severity: Fat Layer Exposed Amount of bleeding with debridement: Mild Bleeding Controlled with: Pressure Patient tolerated procedure: Patient tolerated procedure well, - - I placed Amnio [place] into the ulcer. This is application #1. Expiration - 01/22/24. Product Lot Number - [id number]. Percent used - 100%. Saline Lot Number - [id number]. Assessment/Plan Assessment: 1. Nonhealing diabetic ulcer right lateral middle back. 2. Nonhealing diabetic ulcer left lateral middle back. 3. Diabetes mellitus. 4. s/p surgical preparation right lateral middle back with excision nonhealing diabetic ulcer and reconstruction with STSG from right posterior flank (21 cm2) and placement AmnioFill Placental Connective Tissue Powder (250 mg) and placement TAYLOR NPWT and surgical preparation left lateral middle back with excision nonhealing diabetic ulcer and reconstruction with STSG from left posterior flank (48 cm2) and placement of AmnioFill Placental Connective Tissue Powder (500 mg) and placement of TAYLOR NPWT. 5. Mild compromised skin grafts. Plan: Amnio [place] advanced skin product was placed on both back ulcers today without difficulty. It was application #1. A veil was placed with steri-strips and a dry dressing. He has finished the HBO. Operative cultures showed Corynebaterium amycolatum/xer and Salma albicans in the right lateral middle back ulcer and MRSE, Staphylococcus epidermidis, and Corynebacterium amycolatum/xer in the left lateral middle back ulcer. He has finished the Cleocin and the Diflucan. His LFT's on 02/26/19 were normal. A recent culture on 04/15/19 showed MRSE and he was placed on Zyvox and has finished them. Another wound culture was done on 05/27/19. It showed Staphylococcus epidermidis in both ulcers. He restarted his Doxycycline. Had a discussion with the patient about his persistent Staphylococcus in the ulcers despite multiple oral antibiotic treatments. He would benefit from IV antibiotics to see if that helps to jump start the healing process. He is almost healed but there are scattered areas of nonhealing. In addition to the IV antibiotics, another operative debridement may be necessary in case any abnormal residual scar tissue is present that is hindering healing as well. He will think about that option but for now he wants to try more oral antibiotics and Amnio [place] product. Prealbumin from 12/05/18 was 22.5. Encourage nutritional supplementation with protein to help the healing process. Followup one week. Code Visit [id number]: [id number] Skin sub graft trnk/arm/leg - ICD-10 - L98.492. E11.9, T86.829 Add On Codes: 76413 Skin sub graft t/a/l add-on - ICD-10 - L98.492. E11.9, T86.829
[2019-06-10 08:18] VITALS: BP 109/69; PULSE 61; RESP 18; TEMP 36.9; BMI 28.4
--- NOTE | 2019-06-10 10:09 | PN.PCM_ITS ---
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 History of Wound: Surgery 02/18/19 - 1. Surgical preparation right lateral middle back with excision nonhealing diabetic ulcer. 2. Reconstruction with STSG from right posterior flank (21 cm2) and placement AmnioFill Placental Connective Tissue Powder (250 mg) and placement TAYLOR NPWT. 3. Surgical preparation left lateral middle back with excision nonhealing diabetic ulcer. 4. Reconstruction with STSG from left posterior flank (48 cm2) and placement of AmnioFill Placental Connective Tissue Powder (500 mg) and placement of TAYLOR NPWT. Wound care - He had Amnio excel #1 placed last week. He has increase in the size of his ulcers. Will apply Medihoney once daily after washing with chlorahexadine or dial soap. Operative cultures - MRSE, Staphylococcus epidermidis, and Corynebacterium amycolatum/xer in the left lateral middle back and Corynebacterium amycolatum/xer and Salma albicans in the right lateral middle back. He was placed on Cleocin and Diflucan and has finished them. A r epeat culture on 04/15/19 showed MRSE. He was placed on Zyvox and has finished them. Repeat wound culture on 05/27/19 showed Staphylococcus epidermidis in both ulcers. Doxycycline was restarted. Prealbumin from 12/05/18 was 22.5. Encourage nutritonal supplementation with protein to help the healing process. He developed some compromise to the skin grafts on his back. He completed HBO treatments and has tolerated them. Today he denies fever. His appetite is good. Progress of Wound: Increased ulcer clusters with new openings. - Physical Exam Vital Signs Temp Pulse Resp BP Pulse Ox 98.4 F 61 18 109/69 97 06/10/19 08:18 06/10/19 08:18 06/10/19 08:18 06/10/19 08:18 05/18/19 00:37 General: Alert, Oriented x3, Cooperative HEENT: Atraumatic Oral: Moist Mucosa Lungs: Normal air movement Cardiovascular: Regular rate Extremities: No edema, Capillary Refill Less than 3 Seconds Skin: Ulcer/ Wound - Right lateral middle back ulcer cluster and left middle back ulcer clusters. There are new areas that have opened up this week and some of the older areas have enlarged. Wound Measurements and Assessment WC - Nurse 1 - General Ulcer Measurement Start: 05/20/19 08:10 Freq: Status: Active Protocol: Activity Type Activity Date Activity User E-Sign Co-Sign Detail Recorded Client Recorded Date Recorded By Document 06/10/19 08:18 DL [id number] 06/10/19 08:30 DL 06/10/19 08:18 Wound Center Nurse 1 [Ulcer Assessment] 6. L lumbar back -Current Size (cm) - Length 7 -Current Size (cm) - Width 8 -Current Size (cm) - Depth 0.2 -Total Square Cm 56 -Photo Taken No -Exudate Amt Small -Exudate Type Serosanguineous -Wound Margin Distinct, Outline Attached -Granulation Amt Medium (34-66%) -Granulation Quality [place],Red -Necrosis Amt Medium (34-66%) -Necrotic Tissue Type Adherent Slough -Structure Exposed N/A -Texture (Mayra-wound Skin Appearance) Scarring -Moisture (Mayra-wound Skin Appearance No Abnormality ) -Color (Mayra-wound Skin Appearance) No Abnormality -Temperature (Mayra-wound Skin No Abnormality Appearance) (Pt Warm) -Tenderness on Palpation (Mayra-wound No Skin Appearance) -Ulcer Cleansing Wound Cleanser -Foul Odor after Cleansing No -Anesthetic Used 4% Lidocaine Solution 5. R scapula -Current Size (cm) - Length 5.1 -Current Size (cm) - Width 4.2 -Current Size (cm) - Depth 0.2 -Total Square Cm 21.42 -Photo Taken No -Exudate Amt Small -Exudate Type Serosanguineous -Wound Margin Distinct, Outline Attached -Granulation Amt Medium (34-66%) -Granulation Quality [place] -Necrosis Amt Medium (34-66%) -Necrotic Tissue Type Adherent Slough -Structure Exposed N/A -Texture (Mayra-wound Skin Appearance) Scarring -Moisture (Mayra-wound Skin Appearance No Abnormality ) -Color (Mayra-wound Skin Appearance) No Abnormality -Temperature (Mayra-wound Skin No Abnormality Appearance) (Pt Warm) -Tenderness on Palpation (Mayra-wound No Skin Appearance) -Ulcer Cleansing Wound Cleanser -Foul Odor after Cleansing No -Anesthetic Used 4% Lidocaine Solution WC - Nurse 2 - General Ulcer CM Notes Start: 05/20/19 08:10 Freq: Status: Active Protocol: Activity Type Activity Date Activity User E-Sign Co-Sign Detail Recorded Client Recorded Date Recorded By Document 06/10/19 08:49 [facility] [id number] 06/10/19 08:59 [facility] 06/10/19 08:49 Wound Center Nurse 2 [Procedure/Treatment] 6. L lumbar back -Time 08:50 -Correct Patient Yes -Correct Side, Site, Position Yes -Correct Procedure Yes -Procedure Performed Yes -Type of Procedure Debridement -Clinical Debridement Subcutaneous -Post Debridement Size (cm) - Length 9.8 -Post Debridement Size (cm) - Width 4.4 -Post Debridement Size (cm) - Depth 0.3 -Total Square Cm 43.12 -Wound/Ulcer Outcome Not Healed -Ulcer Cleansing Rinsed/ Irrigated with Saline -Foul Odor after Cleansing No -Bioengineered Tissue No -Bleeding Controlled with Pressure -Offloading No -Treatment Response Procedure Tolerated Well 5. R scapula -Time 08:50 -Correct Patient Yes -Correct Side, Site, Position Yes -Correct Procedure Yes -Procedure Performed Yes -Type of Procedure Debridement -Clinical Debridement Subcutaneous -Post Debridement Size (cm) - Length 6.5 -Post Debridement Size (cm) - Width 2.2 -Post Debridement Size (cm) - Depth 0.3 -Total Square Cm 14.30 -Wound/Ulcer Outcome Not Healed -Ulcer Cleansing Rinsed/ Irrigated with Saline -Foul Odor after Cleansing No -Bioengineered Tissue No -Bleeding Controlled with Pressure -Offloading No -Treatment Response Procedure Tolerated Well [See Physician Procedure note for Specifics] Pain Scale: 0-10 Numeric [Pain] -Is Patient Pain Free? Yes Musculoskeletal: No Tenderness to Palpation of Joints or Extremities Neurological: Neuro grossly intact Psych/Mental Status: Normal Affect, Appropriate Debridement Note Post-Debridement Measurements/Treatment WC - Nurse 2 - General Ulcer CM Notes Start: 05/20/19 08:10 Freq: Status: Active Protocol: Activity Type Activity Date Activity User E-Sign Co-Sign Detail Recorded Client Recorded Date Recorded By Document 05/20/19 08:31 [id number] 05/20/19 08:37 Document 05/27/19 08:53 [id number] 05/27/19 09:01 Document 06/03/19 08:33 [id number] 06/03/19 08:36 Document 06/10/19 08:49 [id number] 06/10/19 08:59 05/20/19 05/27/19 06/03/19 08:31 08:53 08:33 Wound Center Nurse 2 6. L lumbar back -Time 08:31 08:53 08:34 -Correct Patient Yes Yes Yes -Correct Side, Site, Position Yes Yes Yes -Correct Procedure Yes Yes Yes -Procedure Performed Yes Yes Yes -Type of Procedure Debridement Debridement Debridement -Clinical Debridement Subcutaneous Subcutaneous Subcutaneous -Post Debridement Size (cm) - Length 8.5 5.5 5 -Post Debridement Size (cm) - Width 4.5 8.3 3.5 -Post Debridement Size (cm) - Depth 0.2 0.3 0.2 -Total Square Cm 38.25 45.65 17.5 -Wound/Ulcer Outcome Not Healed Not Healed Not Healed -Ulcer Cleansing Rinsed/ Rinsed/ Rinsed/ Irrigated with Irrigated with Irrigated with Saline Saline Saline -Foul Odor after Cleansing No No No -Bioengineered Tissue No No No -Expiration Date 01/22/24 -Product Lot Number [id number] -Percent Used 100 -Saline Lot Number [id number] -Bleeding Controlled with Pressure Pressure Pressure -Other amnioexcel -Offloading No No No -Treatment Response Procedure Procedure Procedure Tolerated Well Tolerated Well Tolerated Well 5. R scapula -Time 08:31 08:54 08:35 -Correct Patient Yes Yes Yes -Correct Side, Site, Position Yes Yes Yes -Correct Procedure Yes Yes Yes -Procedure Performed Yes Yes Yes -Type of Procedure Debridement Debridement Debridement -Clinical Debridement Subcutaneous Subcutaneous Subcutaneous -Post Debridement Size (cm) - Length 5.8 5.8 6.0 -Post Debridement Size (cm) - Width 2.4 1.7 2.2 -Post Debridement Size (cm) - Depth 0.2 0.3 0.2 -Total Square Cm 13.92 9.86 13.20 -Wound/Ulcer Outcome Not Healed Not Healed Not Healed -Ulcer Cleansing Rinsed/ Rinsed/ Rinsed/ Irrigated with Irrigated with Irrigated with Saline Saline Saline -Foul Odor after Cleansing No No No -Bioengineered Tissue No No No -Expiration Date 01/22/24 -Product Lot Number [id number] -Percent Used 100 -Saline Lot Number [id number] -Bleeding Controlled with Pressure Pressure Pressure -Other amnioexcel -Offloading No No No -Treatment Response Procedure Procedure Procedure Tolerated Well Tolerated Well Tolerated Well Pain Scale: 0-10 Numeric Is Patient Pain Free? Yes Yes Yes 06/10/19 08:49 Wound Center Nurse 2 6. L lumbar back -Time 08:50 -Correct Patient Yes -Correct Side, Site, Position Yes -Correct Procedure Yes -Procedure Performed Yes -Type of Procedure Debridement -Clinical Debridement Subcutaneous -Post Debridement Size (cm) - Length 9.8 -Post Debridement Size (cm) - Width 4.4 -Post Debridement Size (cm) - Depth 0.3 -Total Square Cm 43.12 -Wound/Ulcer Outcome Not Healed -Ulcer Cleansing Rinsed/ Irrigated with Saline -Foul Odor after Cleansing No -Bioengineered Tissue No -Expiration Date -Product Lot Number -Percent Used -Saline Lot Number -Bleeding Controlled with Pressure -Other -Offloading No -Treatment Response Procedure Tolerated Well 5. R scapula -Time 08:50 -Correct Patient Yes -Correct Side, Site, Position Yes -Correct Procedure Yes -Procedure Performed Yes -Type of Procedure Debridement -Clinical Debridement Subcutaneous -Post Debridement Size (cm) - Length 6.5 -Post Debridement Size (cm) - Width 2.2 -Post Debridement Size (cm) - Depth 0.3 -Total Square Cm 14.30 -Wound/Ulcer Outcome Not Healed -Ulcer Cleansing Rinsed/ Irrigated with Saline -Foul Odor after Cleansing No -Bioengineered Tissue No -Expiration Date -Product Lot Number -Percent Used -Saline Lot Number -Bleeding Controlled with Pressure -Other -Offloading No -Treatment Response Procedure Tolerated Well Pain Scale: 0-10 Numeric Is Patient Pain Free? Yes Wound debrided: Lateral middle back ulcer cluster Laterality: Right Type of Debridement: Excisional debridement Anesthesia Used: 5% Lidocaine Gel Depth: Down to and including healthy tissue, in the subcutaneous layer Percentage of wound debrided: 100 Instrument Used: 3mm curette, 5mm curette Tissue Removed: Subcutaneous tissue and slough Severity: Fat Layer Exposed Amount of bleeding with debridement: Mild Bleeding Controlled with: Pressure, Compression and gauze Patient tolerated procedure well - Additional Wound Wound debrided: Lateral middle back ulcer cluster Laterality: Left Type of Debridement: Excisional debridement Anesthesia Used: 5% Lidocaine Gel Depth: Down to and including healthy tissue, in the subcutaneous layer Percentage of wound debrided: 100 Instrument Used: 3mm curette Tissue Removed: Subcutaneous tissue and slough Severity: Fat Layer Exposed Amount of bleeding with debridement: Mild Bleeding Controlled with: Pressure, Compression and gauze Patient tolerated procedure: Patient tolerated procedure well Assessment/Plan Active Problems (Last Reviewed 04/30/19 @ 09:[address] 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 Nonhealing diabetic ulcer right lateral middle back. 2. Nonhealing diabetic ulcer left lateral middle back. 3. Diabetes mellitus. 4. s/p surgical preparation right lateral middle back with excision nonhealing diabetic ulcer and reconstruction with STSG from right posterior flank (21 cm2) and placement AmnioFill Placental Connective Tissue Powder (250 mg) and placement TAYLOR NPWT and surgical preparation left lateral middle back with excision nonhealing diabetic ulcer and reconstruction with STSG from left posterior flank (48 cm2) and placement of AmnioFill Placental Connective Tissue Powder (500 mg) and placement of TAYLOR NPWT. 5. Mild compromised skin grafts. Plan: Amnio [place] advanced skin product was placed on both back ulcers last week. It was application #1. A veil was placed with steri-strips and a dry dressing. This week he has more areas opened and several of the previously open areas have enlarged. Will have him wash daily with either chlorhexidine or Dial soap and then apply meta honey to the open areas. We may revisit the amnio XL in the future. He has finished the HBO. Operative cultures showed Corynebaterium amycolatum/xer and Salma albicans in the right lateral middle back ulcer and MRSE, Staphylococcus epidermidis, and Corynebacterium amycolatum/xer in the left lateral middle back ulcer. He has finished the Cleocin and the Diflucan. His LFT's on 02/26/19 were normal. A recent culture on 04/15/19 showed MRSE and he was placed on Zyvox and has finished them. Another wound culture was done on 05/27/19. It showed Staphylococcus epidermidis in both ulcers. He restarted his Doxycycline. Had a discussion with the patient about his persistent Staphylococcus in the ulcers despite multiple oral antibiotic treatments. He would benefit from IV antibiotics to see if that helps to jump start the healing process. He is almost healed but there are scattered areas of nonhealing. In addition to the IV antibiotics, another operative debridement may be necessary in case any abnormal residual scar tissue is present that is hindering healing as well. He will think about that option but for now he wants to try more oral antibiotics and Amnio [place] product. Prealbumin from 12/05/18 was 22.5. Encourage nutritional supplementation with protein to help the healing process. Due to the increase in his ulcer clusters and the length of time this is been going on, we will refer him to Dr. Jerez for another wound center evaluation, to see if he has any other suggestions. Followup one week. Code Visit 111xxx-113xx: [id number] Pooja subq tissue 20 sq cm/< Add On Codes: 94799 Pooja subq tissue add-on - x2
== END 2019-06-15 23:59 ==
LOC: WC 08:00
PROVIDERS: Family Provider Family Medicine; PCP Family Medicine; Visit Provider Nurse Practitioner Family
DX: E11.622 Type 2 diabetes mellitus with other skin ulcer (principal); L98.421 Non-pressure chronic ulcer of back limited to breakdown of skin; T86.821 Skin graft (allograft) (autograft) failure; Y83.2 Surgical operation with anastomosis, bypass or graft as the cause of abnormal reaction of the patient, or of later complication, without mention of misadventure at the time of the procedure; L98.422 Non-pressure chronic ulcer of back with fat layer exposed
CPT/HCPCS: 11042; 11045; 15271; 15272; 87070; 87075; 87077; 87186; 87205; Q4137

== ENCOUNTER 2019-07-15 08:00 | Outpatient (RCR) | payer OTHER, SELFPAY ==
[2019-06-16 00:30] VITALS: BP 109/69; PULSE 61; RESP 18; TEMP 36.9; O2SAT 97
[2019-06-18 08:04] VITALS: BP 104/66; PULSE 77; RESP 18; TEMP 36.5; BMI 28.4
--- NOTE | 2019-06-18 14:45 | PCM.WC.HP ---
(1) Chronic renal insufficiency, stage I Status: Chronic Current Visit: No Code(s): N18.1 - Chronic kidney disease, stage 1 (2) Diabetes Status: Chronic Current Visit: Yes Qualifiers: Diabetes mellitus type: type 2 Code(s): E11.9 - Type 2 diabetes mellitus without complications (3) Hypertension Status: Chronic Current Visit: No Code(s): I10 - Essential (primary) hypertension (4) Non-pressure chronic ulcer of skin of other sites with fat layer exposed Status: Chronic Current Visit: Yes Code(s): L98.492 - Non-pressure chronic ulcer of skin of other sites with fat layer exposed Comment: Nonhealing ulcers right lateral middle back and left lateral middle back (5) Nonhealing surgical wound Status: Chronic Current Visit: Yes Qualifiers: Encounter type: subsequent encounter Qualified Code(s): T81.89XD - Other complications of procedures, not elsewhere classified, subsequent encounter Code(s): T81.89XA - Other complications of procedures, not elsewhere classified, initial encounter Comment: right lateral middle back and left lateral middle back after excision of nonhealing diabetic ulcers with skin flap reconstruction (6) LEYDI (obstructive sleep apnea) Status: Chronic Current Visit: No Code(s): G47.33 - Obstructive sleep apnea (adult) (pediatric) (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 Current Visit: No Code(s): T86.821 - Skin graft (allograft) (autograft) failure (8) Type 2 diabetes mellitus Status: Chronic Current Visit: No Qualifiers: Code(s): E11.9 - Type 2 diabetes mellitus without complications (9) Unspecified complication of skin graft (allograft) (autograft) Status: Chronic Current Visit: Yes Qualifiers: Transplant complication type: failure Qualified Code(s): T86.821 - Skin graft (allograft) (autograft) failure Code(s): T86.829 - Unspecified complication of skin graft (allograft) (autograft) (10) History of bleeding ulcers Status: Resolved Current Visit: No Code(s): Z87.11 - Personal history of peptic ulcer disease (11) Dehiscence of external surgical wound Status: Chronic Current Visit: Yes Qualifiers: Encounter type: initial encounter Qualified Code(s): T81.31XA - Disruption of external operation (surgical) wound, not elsewhere classified, initial encounter Code(s): T81.31XA - Disruption of external operation (surgical) wound, not elsewhere classified, initial encounter History of Present Illness Date of Service: 06/18/19 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: Nonhealing diabetic ulcers left lateral middle back and right lateral middle back with compromised skin grafts. History of Wound: Surgery 02/18/19 - 1. Surgical preparation right lateral middle back with excision nonhealing diabetic ulcer. 2. Reconstruction with STSG from right posterior flank (21 cm2) and placement AmnioFill Placental Connective Tissue Powder (250 mg) and placement TAYLOR NPWT. 3. Surgical preparation left lateral middle back with excision nonhealing diabetic ulcer. 4. Reconstruction with STSG from left posterior flank (48 cm2) and placement of AmnioFill Placental Connective Tissue Powder (500 mg) and placement of TAYLOR NPWT. Wound care - He had Amnio excel #1 placed last week. He has increase in the size of his ulcers. Will apply Medihoney once daily after washing with chlorahexadine or dial soap. Operative cultures - MRSE, Staphylococcus epidermidis, and Corynebacterium amycolatum/xer in the left lateral middle back and Corynebacterium amycolatum/xer and Salma albicans in the right lateral middle back. He was placed on Cleocin and Diflucan and has finished them. A repeat culture on 04/15/19 showed MRSE. He was placed on Zyvox and has finished them. Repeat wound culture on 05/27/19 showed Staphylococcus epidermidis in both ulcers. Doxycycline was restarted. Prealbumin from 12/05/18 was 22.5. Encourage nutritonal supplementation with protein to help the healing process. He developed some compromise to the skin grafts on his back. He completed HBO treatments and has tolerated them. Today he denies fever. His appetite is good. This is a 58-year-old male who has been under the care of providers at the [facility] since March 2018. Prior to his initial presentation here, he was treated by his primary care physician for bothersome sebaceous cysts of the back. The patient's primary care physician apparently incised and drained the cysts, for the purpose of decompression. It is presumed that they may have been infected at the time of incision and drainage. The patient then presented thereafter for evaluation and management at the wound center, and has been under care since early 2018. A variety of methods and interventions have been implemented in an effort to achieve healing. Wound infections have been treated with courses of antibiotics tailored to culture and sensitivity results. On June 12, 2018, the patient underwent surgical debridement, wound excision, and skin graft of right- and left- sided mid back wounds. Wound compromise of the skin grafts developed, and the patient underwent a series of 40 hyperbaric oxygen therapy sessions, which were completed on May 10, 2019. The patient has also undergone a series of allograft applications, negative pressure wound therapy, and other contemporary wound care measures. Despite all interventions, the ulcerations on the patient's back have failed to heal to completion. He presents today for further evaluation, where it is noted that the right lateral abdominal wall skin graft donor site has also become dehiscent, and the site of a new open wound. It is noted that the ulcerations on the patient's back have recently enlarged, despite all measures to promote healing. The patient has a history of diabetes mellitus. He has purposely made efforts to lose weight, and has recently lost approximately 45 pounds. He is generally active and functional. Past Medical History Past Medical History: Chronic Problems (Last Reviewed 04/30/19 @ 09:[address] Ryan Gandhi, DO) Chronic renal insufficiency, stage I (Chronic) Dehiscence of external surgical wound (Chronic) Unspecified complication of skin graft (allograft) (autograft) (Chronic) Skin graft (allograft) (autograft) failure (Chronic) LEYDI (obstructive sleep apnea) (Chronic) Diabetes (Chronic) Hearing problem (Chronic) 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 Trigger finger, left ring finger (Chronic) Hypertension (Chronic) Neuroma (Chronic) Past Medical History: The patient's history is negative for myocardial infarction, congestive heart failure, cerebrovascular accident, pulmonary disease, thyroid disease, and hyperlipidemia. Patient's other medical problems are listed elsewhere. Surgical History: - - Patient is undergone right radial tunnel syndrome surgery, umbilical hernia repair, and 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 Allergies/Adverse Reactions: Allergies No Known Allergies Allergy (Verified 02/21/19 08:44) Home Medications: Ambulatory Orders Medication Instructions Recorded Multivitamin with Minerals 1 ea PO DAILY 02/14/19 [Multiple Vitamin] Lactobacillus Acidophilus/Fos 1 ea PO BID #30 tab 02/18/19 [Acidophilus Probiotic Tablet] diclofenac sodium 1 % topical gel 2 g TOPICAL ONCE 04/25/19 albuterol sulfate 90 mcg/actuation 2 puff INHALATION Q6H PRN #8.5 g 04/30/19 aerosol inhaler lisinopril 5 mg tablet 5 mg PO DAILY 04/30/19 - Family History Paternal Family History: Family History (Last Reviewed 04/30/19 @ 09:[address] 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 He is . He denies the use of tobacco and alcohol products. Lives: Spouse/ Significant Other Smoking Status: Unknown if ever smoked Tobacco Use: Non-smoker Alcohol: None Drugs: None Review of Systems Constitutional: Denies: Chills, Fever, Weight Change Eyes: Denies: Pain, Vision Change HEENT: Denies: Difficulty Hearing, Difficulty Swallowing, Sinus Congestion Cardiovascular: Denies: Chest Pain, Palpitations Respiratory: Denies: Cough, Shortness of Breath Gastrointestinal: Denies: Diarrhea, Nausea, Vomiting Genitourinary: Denies: Dysuria, Hematuria Endocrine: Denies: Heat/ Cold Intolerance, Polydipsia, Polyuria Hematologic/ Lymphatic: Denies: Easy Bruising, Easy Bleeding - Physical Exam Vital Signs Temp Pulse Resp BP Pulse Ox 97.7 F L 77 18 104/66 97 06/18/19 08:04 06/18/19 08:04 06/18/19 08:04 06/18/19 08:04 06/16/19 00:30 General: Alert, Oriented x3, Cooperative, No apparent distress, Well developed, Well nourished, - - The patient is of relatively normal body habitus. HEENT: Atraumatic, PERRLA, EOMI, Normocephalic Oral: Moist Mucosa Neck: Supple, No JVD, Negative Carotid Bruits, Negative Hepatojugular Reflux, No Nodes, No Nuchal Rigidity, Trachea Midline Lungs: Clear to auscultation, Normal air movement, No rhonchi, No wheeze, No rales, Diminished Cardiovascular: Regular rate, Regular Rhythm, Normal S1, Normal S2, No murmurs Abdomen: Soft, Non Tender, Non-Distended Extremities: No clubbing, No cyanosis, No edema, No Calf Tenderness Skin: No rashes, - - Clustered superficial ulcerations are noted on the patient's right and left mid back. These clustered ulcerations are located at the site of a previous skin flap reconstruction which was performed on June 12, 2018. There is a mild amount of bioburden at the site of these clustered ulcerations. Jareth ulceration is not apparent. However, swab cultures have been obtained of the right mid back ulceration, for both aerobic and anaerobic growth. A well-healed skin flap donor site is noted on the left lateral abdomen. A dehiscent skin flap donor site is noted on the right lateral abdomen. The dehiscence is small, and located in the midportion of the linear incision. There is no sign of infection or ulceration at the donor site dehiscence. Wound Measurements and Assessment WC - Nurse 1 - General Ulcer Measurement Start: 06/18/19 08:04 Freq: Status: Active Protocol: Activity Type Activity Date Activity User E-Sign Co-Sign Detail Recorded Client Recorded Date Recorded By Document 06/18/19 08:04 DL [id number] 06/18/19 08:17 DL 06/18/19 08:04 Wound Center Nurse 1 [Ulcer Assessment] #7 R Lower Side -Current Size (cm) - Length 0.7 -Current Size (cm) - Width 0.6 -Current Size (cm) - Depth 0.2 -Total Square Cm 0.42 -Photo Taken Yes -Exudate Amt Small -Exudate Type Serosanguineous -Wound Margin Distinct, Outline Attached -Granulation Amt Small (1-33%) -Granulation Quality [place] -Necrosis Amt Small (1-33%) -Necrotic Tissue Type Adherent Slough -Structure Exposed N/A -Texture (Mayra-wound Skin Appearance) Scarring -Moisture (Mayra-wound Skin Appearance No Abnormality ) -Color (Mayra-wound Skin Appearance) Rubor -Temperature (Mayra-wound Skin No Abnormality Appearance) (Pt Warm) -Tenderness on Palpation (Mayra-wound No Skin Appearance) -Ulcer Cleansing Wound Cleanser -Foul Odor after Cleansing No -Anesthetic Used 4% Lidocaine Solution 6. L lumbar back -Current Size (cm) - Length 6.2 -Current Size (cm) - Width 8.8 -Current Size (cm) - Depth 0.2 -Total Square Cm 54.56 -Photo Taken No -Exudate Amt Small -Exudate Type Serosanguineous -Wound Margin Distinct, Outline Attached -Granulation Amt Medium (34-66%) -Granulation Quality Red -Necrosis Amt Medium (34-66%) -Necrotic Tissue Type Adherent Slough -Structure Exposed N/A -Texture (Mayra-wound Skin Appearance) Scarring -Moisture (Mayra-wound Skin Appearance No Abnormality ) -Color (Mayra-wound Skin Appearance) Rubor -Temperature (Mayra-wound Skin No Abnormality Appearance) (Pt Warm) -Tenderness on Palpation (Mayra-wound Yes Skin Appearance) -Ulcer Cleansing Wound Cleanser -Foul Odor after Cleansing No -Anesthetic Used 4% Lidocaine Solution 5. R scapula -Current Size (cm) - Length 5.1 -Current Size (cm) - Width 4.8 -Current Size (cm) - Depth 0.2 -Total Square Cm 24.48 -Photo Taken No -Exudate Amt Small -Exudate Type Serosanguineous -Wound Margin Distinct, Outline Attached -Granulation Amt Medium (34-66%) -Granulation Quality Red -Necrosis Amt Medium (34-66%) -Necrotic Tissue Type Adherent Slough -Structure Exposed N/A -Texture (Mayra-wound Skin Appearance) Scarring -Moisture (Mayra-wound Skin Appearance No Abnormality ) -Color (Mayra-wound Skin Appearance) Rubor -Temperature (Mayra-wound Skin No Abnormality Appearance) (Pt Warm) -Tenderness on Palpation (Mayra-wound No Skin Appearance) -Ulcer Cleansing Wound Cleanser -Foul Odor after Cleansing No -Anesthetic Used 4% Lidocaine Solution WC - Nurse 2 - General Ulcer CM Notes Start: 06/18/19 08:04 Freq: Status: Active Protocol: Activity Type Activity Date Activity User E-Sign Co-Sign Detail Recorded Client Recorded Date Recorded By Document 06/18/19 08:43 DV [id number] 06/18/19 08:54 DV 06/18/19 08:43 Wound Center Nurse 2 [Procedure/Treatment] #7 R Lower Side -Time 08:47 -Correct Patient Yes -Correct Side, Site, Position Yes -Correct Procedure Yes -Procedure Performed Yes -Type of Procedure Debridement -Clinical Debridement Subcutaneous -Post Debridement Size (cm) - Length 0.3 -Post Debridement Size (cm) - Width 0.9 -Post Debridement Size (cm) - Depth 0.4 -Total Square Cm 0.27 -Wound/Ulcer Outcome Not Healed -Ulcer Cleansing Rinsed/ Irrigated with Saline -Foul Odor after Cleansing No -Bioengineered Tissue No -Bleeding Controlled with Pressure -Offloading No -Treatment Response Procedure Tolerated Well 6. L lumbar back -Time 08:49 -Correct Patient Yes -Correct Side, Site, Position Yes -Correct Procedure Yes -Procedure Performed Yes -Type of Procedure Debridement -Clinical Debridement Subcutaneous -Post Debridement Size (cm) - Length 10.0 -Post Debridement Size (cm) - Width 4.4 -Post Debridement Size (cm) - Depth 0.3 -Total Square Cm 44.00 -Wound/Ulcer Outcome Not Healed -Ulcer Cleansing Rinsed/ Irrigated with Saline -Foul Odor after Cleansing No -Bioengineered Tissue No -Bleeding Controlled with Pressure -Offloading No -Treatment Response Procedure Tolerated Well 5. R scapula -Time 08:50 -Correct Patient Yes -Correct Side, Site, Position Yes -Correct Procedure Yes -Procedure Performed Yes -Type of Procedure Debridement -Clinical Debridement Subcutaneous -Post Debridement Size (cm) - Length 6.5 -Post Debridement Size (cm) - Width 2.3 -Post Debridement Size (cm) - Depth 0.3 -Total Square Cm 14.95 -Wound/Ulcer Outcome Not Healed -Ulcer Cleansing Rinsed/ Irrigated with Saline -Foul Odor after Cleansing No -Bioengineered Tissue No -Bleeding Controlled with Pressure -Treatment Response Procedure Tolerated Well [See Physician Procedure note for Specifics] Pain Scale: 0-10 Numeric [Pain] -Is Patient Pain Free? Yes Musculoskeletal: No Muscle Wasting Neurological: Cranial nerves II-XII grossly intact, Neuro grossly intact Psych/Mental Status: Normal Affect, Appropriate, Alert and oriented to time, place, person, mood and affect Debridement Note Post-Debridement Measurements/Treatment WC - Nurse 2 - General Ulcer CM Notes Start: 06/18/19 08:04 Freq: Status: Active Protocol: Activity Type Activity Date Activity User E-Sign Co-Sign Detail Recorded Client Recorded Date Recorded By Document 06/18/19 08:43 DV [id number] 06/18/19 08:54 DV 06/18/19 08:43 Wound Center Nurse 2 #7 R Lower Side -Time 08:47 -Correct Patient Yes -Correct Side, Site, Position Yes -Correct Procedure Yes -Procedure Performed Yes -Type of Procedure Debridement -Clinical Debridement Subcutaneous -Post Debridement Size (cm) - Length 0.3 -Post Debridement Size (cm) - Width 0.9 -Post Debridement Size (cm) - Depth 0.4 -Total Square Cm 0.27 -Wound/Ulcer Outcome Not Healed -Ulcer Cleansing Rinsed/ Irrigated with Saline -Foul Odor after Cleansing No -Bioengineered Tissue No -Bleeding Controlled with Pressure -Offloading No -Treatment Response Procedure Tolerated Well 6. L lumbar back -Time 08:49 -Correct Patient Yes -Correct Side, Site, Position Yes -Correct Procedure Yes -Procedure Performed Yes -Type of Procedure Debridement -Clinical Debridement Subcutaneous -Post Debridement Size (cm) - Length 10.0 -Post Debridement Size (cm) - Width 4.4 -Post Debridement Size (cm) - Depth 0.3 -Total Square Cm 44.00 -Wound/Ulcer Outcome Not Healed -Ulcer Cleansing Rinsed/ Irrigated with Saline -Foul Odor after Cleansing No -Bioengineered Tissue No -Bleeding Controlled with Pressure -Offloading No -Treatment Response Procedure Tolerated Well 5. R scapula -Time 08:50 -Correct Patient Yes -Correct Side, Site, Position Yes -Correct Procedure Yes -Procedure Performed Yes -Type of Procedure Debridement -Clinical Debridement Subcutaneous -Post Debridement Size (cm) - Length 6.5 -Post Debridement Size (cm) - Width 2.3 -Post Debridement Size (cm) - Depth 0.3 -Total Square Cm 14.95 -Wound/Ulcer Outcome Not Healed -Ulcer Cleansing Rinsed/ Irrigated with Saline -Foul Odor after Cleansing No -Bioengineered Tissue No -Bleeding Controlled with Pressure -Treatment Response Procedure Tolerated Well Pain Scale: 0-10 Numeric Is Patient Pain Free? Yes Laterality: Right - Mid back Type of Debridement: Excisional debridement Anesthesia Used: 5% Lidocaine Gel Depth: Down to and including healthy tissue, in the subcutaneous layer Percentage of wound debrided: 100 Instrument Used: 5mm curette Tissue Removed: Bioburden and nonviable tissue Severity: Fat Layer Exposed Amount of bleeding with debridement: Mild Bleeding Controlled with: Compression and gauze Patient tolerated procedure well - Additional Wound Laterality: Left - Mid back Type of Debridement: Excisional debridement Anesthesia Used: 5% Lidocaine Gel Depth: Down to and including healthy tissue, in the subcutaneous layer Percentage of wound debrided: 100 Instrument Used: 5mm curette Tissue Removed: Bioburden and nonviable tissue Severity: Fat Layer Exposed Amount of bleeding with debridement: Mild Bleeding Controlled with: Compression and gauze Patient tolerated procedure: Patient tolerated procedure well Assessment/Plan Active Problems (Last Reviewed 04/30/19 @ 09:[address] Ryan Gandhi, DO) Dehiscence of external surgical wound (Chronic) Unspecified complication of skin graft (allograft) (autograft) (Chronic) Diabetes (Chronic) Non-pressure chronic ulcer of skin of other sites with fat layer exposed (Chronic) Nonhealing ulcers right lateral middle back and left lateral middle back Nonhealing surgical wound (Chronic) right lateral middle back and left lateral middle back after excision of nonhealing diabetic ulcers with skin flap reconstruction Assessment: 1. Nonhealing diabetic ulcer right lateral middle back. 2. Nonhealing diabetic ulcer left lateral middle back. 3. Diabetes mellitus. 4. s/p surgical preparation right lateral middle back with excision nonhealing diabetic ulcer and reconstruction with STSG from right posterior flank (21 cm2) and placement AmnioFill Placental Connective Tissue Powder (250 mg) and placement TAYLOR NPWT and surgical preparation left lateral middle back with excision nonhealing diabetic ulcer and reconstruction with STSG from left posterior flank (48 cm2) and placement of AmnioFill Placental Connective Tissue Powder (500 mg) and placement of TAYLOR NPWT. 5. Mild compromised skin grafts. Plan: Amnio Hanna advanced skin product was placed on both back ulcers last week. It was application #1. A veil was placed with steri-strips and a dry dressing. This week he has more areas opened and several of the previously open areas have enlarged. Will have him wash daily with either chlorhexidine or Dial soap and then apply meta honey to the open areas. We may revisit the amnio XL in the future. He has finished the HBO. Operative cultures showed Corynebaterium amycolatum/xer and Salma albicans in the right lateral middle back ulcer and MRSE, Staphylococcus epidermidis, and Corynebacterium amycolatum/xer in the left lateral middle back ulcer. He has finished the Cleocin and the Diflucan. His LFT's on 02/26/19 were normal. A recent culture on 04/15/19 showed MRSE and he was placed on Zyvox and has finished them. Another wound culture was done on 05/27/19. It showed Staphylococcus epidermidis in both ulcers. He restarted his Doxycycline. Had a discussion with the patient about his persistent Staphylococcus in the ulcers despite multiple oral antibiotic treatments. He would benefit from IV antibiotics to see if that helps to jump start the healing process. He is almost healed but there are scattered areas of nonhealing. In addition to the IV antibiotics, another operative debridement may be necessary in case any abnormal residual scar tissue is present that is hindering healing as well. He will think about that option but for now he wants to try more oral antibiotics and Amnio Hanna product. Prealbumin from 12/05/18 was 22.5. Encourage nutritional supplementation with protein to help the healing process. Due to the increase in his ulcer clusters and the length of time this is been going on, we will refer him to Dr. Jerez for another wound center evaluation, to see if he has any other suggestions. Followup one week. Upon evaluation, it is evident that the patient has a very complicated past medical history. Despite all efforts to date, the ulcerations on his back have failed to heal. In fact, recently, the ulcerations have enlarged, becoming larger in size. The reason for which the ulcerations have failed to heal, and have worsened, remains enigmatic. In speaking with the patient, he indicates that the intervention which seemed to result in the most improvement was that of hyperbaric oxygen therapy. He has undergone a total of 40 such treatments. It may well be that reimplementation of hyperbaric oxygen therapy will be of benefit. In addition, wound infection or colonization may impair wound healing. Swab cultures have been obtained today for both aerobic and anaerobic growth, and results will be awaited. It is my intention to speak with Yamileth Reeves NP, and Dr. Lemus to discuss further treatment options. Certainly, bacterial infection and or impaired tissue perfusion may account for the lack of healing progress. Were either or both of these factors still exist, appropriate antibiotic management and hyperbaric oxygen therapy may be of benefit. I agree with the role of skin substitutes, though determining the optimal product may be consequential. I will plan to discuss the matter in more detail with the patient's other providers in an effort to create a collaborative plan of management moving forward. Another consideration would be to evaluate the patient in terms of an autoimmune process. Malignancy appears to have been ruled out based upon prior biopsy results. Cultures, if positive, may reveal some evidence of recurring infection by similar organisms to prior infections, which may have specific implications. The patient is to use MediHoney topically on a daily basis until he is reevaluated next week.
[2019-06-18 15:08] LABS: M R Staph aureus DNA By PCR Negative (Negative); Probe Check PASS; Specimen Processing Control PASS; Staph aureus DNA By PCR NEGATIVE (Negative)
[2019-06-24 07:58] VITALS: BP 117/60; PULSE 72; RESP 18; TEMP 37.1; BMI 28.4
--- NOTE | 2019-06-24 09:56 | PCM.WC.PN ---
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 Current Visit: Yes Code(s): T86.821 - Skin graft (allograft) (autograft) failure (4) Dehiscence of external surgical wound Status: Chronic Current Visit: Yes Qualifiers: Encounter type: initial encounter Qualified Code(s): T81.31XA - Disruption of external operation (surgical) wound, not elsewhere classified, initial encounter Code(s): T81.31XA - Disruption of external operation (surgical) wound, not elsewhere classified, initial encounter (5) Type 2 diabetes mellitus Status: Chronic Current Visit: Yes Qualifiers: Code(s): E11.9 - Type 2 diabetes mellitus without complications Type of Wound Date of Service: 06/24/19 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: Nonhealing diabetic ulcers left lateral middle back and right lateral middle back with compromised skin grafts. History of Wound: Surgery 02/18/19 - 1. Surgical preparation right lateral middle back with excision nonhealing diabetic ulcer. 2. Reconstruction with STSG from right posterior flank (21 cm2) and placement AmnioFill Placental Connective Tissue Powder (250 mg) and placement TAYLOR NPWT. 3. Surgical preparation left lateral middle back with excision nonhealing diabetic ulcer. 4. Reconstruction with STSG from left posterior flank (48 cm2) and placement of AmnioFill Placental Connective Tissue Powder (500 mg) and placement of TAYLOR NPWT. Wound care - OTC antibiotic ointment once daily after washing with chlorahexadine or dial soap.. He had Amnio excel #1 placed which he had an increase in the size of his ulcers. Will have him use nasal mupirocin twice daily x 5 days to cover a potential colonization of staph epi. Operative cultures - MRSE, Staphylococcus epidermidis, and Corynebacterium amycolatum/xer in the left lateral middle back and Corynebacterium amycolatum/xer and Salma albicans in the right lateral middle back. He was placed on Cleocin and Diflucan and has finished them. A repeat culture on 04/15/19 showed MRSE. He was placed on Zyvox and has finished them. Repeat wound culture on 05/27/19 showed Staphylococcus epidermidis in both ulcers. Doxycycline was restarted. Prealbumin from 12/05/18 was 22.5. Wound culture from 06/17/19 negative for growth. Encourage nutritonal supplementation with protein to help the healing process. He developed some compromise to the skin grafts on his back. He completed HBO treatments and has tolerated them. Today he denies fever. His appetite is good. He saw Dr. Jerez last week as a consult: This is a 58-year-old male who has been under the care of providers at the [facility] since March 2018. Prior to his initial presentation here, he was treated by his primary care physician for bothersome sebaceous cysts of the back. The patient's primary care physician apparently incised and drained the cysts, for the purpose of decompression. It is presumed that they may have been infected at the time of incision and drainage. The patient then presented thereafter for evaluation and management at the wound center, and has been under care since early 2018. A variety of methods and interventions have been implemented in an effort to achieve healing. Wound infections have been treated with courses of antibiotics tailored to culture and sensitivity results. On June 12, 2018, the patient underwent surgical debridement, wound excision, and skin graft of right- and left- sided mid back wounds. Wound compromise of the skin grafts developed, and the patient underwent a series of 40 hyperbaric oxygen therapy sessions, which were completed on May 10, 2019. The patient has also undergone a series of allograft applications, negative pressure wound therapy, and other contemporary wound care measures. Despite all interventions, the ulcerations on the patient's back have failed to heal to completion. He presents today for further evaluation, where it is noted that the right lateral abdominal wall skin graft donor site has also become dehiscent, and the site of a new open wound. It is noted that the ulcerations on the patient's back have recently enlarged, despite all measures to promote healing. The patient has a history of diabetes mellitus. He has purposely made efforts to lose weight, and has recently lost approximately 45 pounds. He is generally active and functional. Progress of Wound: Increased ulcer clusters with new openings. Right donor site also has small opening. - Physical Exam Vital Signs Temp Pulse Resp BP Pulse Ox 98.7 F 72 18 117/60 97 06/24/19 07:58 06/24/19 07:58 06/24/19 07:58 06/24/19 07:58 06/16/19 00:30 General: Alert, Oriented x3, Cooperative HEENT: Atraumatic Oral: Moist Mucosa Lungs: Normal air movement Cardiovascular: Regular rate Abdomen: Bowel Sounds Present Extremities: Capillary Refill Less than 3 Seconds Skin: Ulcer/ Wound - Left lateral middle back ulcer cluster, right lateral middle back ulcer cluster, right flank donor site with small opening that is new. Wound Measurements and Assessment WC - Nurse 1 - General Ulcer Measurement Start: 06/18/19 08:04 Freq: Status: Active Protocol: Activity Type Activity Date Activity User E-Sign Co-Sign Detail Recorded Client Recorded Date Recorded By Document 06/24/19 07:58 [facility] [id number] 06/24/19 08:03 [facility] 06/24/19 07:58 Wound Center Nurse 1 [Ulcer Assessment] #7 R Lower Side -Combined with other wound No -Current Size (cm) - Length 0.3 -Current Size (cm) - Width 1.1 -Current Size (cm) - Depth 0.1 -Total Square Cm 0.33 -Photo Taken Yes -Epithelialization Small 1-33% -Tunneling No -Undermining/Tunneling No -Circular Undermining No -Exudate Amt Small -Exudate Type Serosanguineous -Wound Margin Flat & Intact -Granulation Amt Large (67-100%) -Granulation Quality Red -Slough/Fibrin Yes -Necrosis Amt Small (1-33%) -Necrotic Tissue Type Adherent Slough -Structure Exposed N/A -Texture (Mayra-wound Skin Appearance) Assessed, Scarring -Moisture (Mayra-wound Skin Appearance Assessed,Dry/ ) Scaly -Color (Mayra-wound Skin Appearance) Assessed -Temperature (Mayra-wound Skin No Abnormality Appearance) (Pt Warm) -Tenderness on Palpation (Mayra-wound No Skin Appearance) -Ulcer Cleansing Rinsed/ Irrigated with Saline -Foul Odor after Cleansing No -Anesthetic Used 4% Lidocaine Solution 6. L lumbar back -Combined with other wound No -Current Size (cm) - Length 6.5 -Current Size (cm) - Width 9 -Current Size (cm) - Depth 0.1 -Total Square Cm 58.5 -Photo Taken Yes -Epithelialization Small 1-33% -Tunneling No -Undermining/Tunneling No -Circular Undermining No -Exudate Amt Small -Exudate Type Serosanguineous -Wound Margin Flat & Intact -Granulation Amt Large (67-100%) -Granulation Quality Red -Slough/Fibrin Yes -Necrosis Amt Small (1-33%) -Necrotic Tissue Type Adherent Slough -Structure Exposed N/A -Texture (Mayra-wound Skin Appearance) Assessed, Scarring -Moisture (Mayra-wound Skin Appearance Assessed,Dry/ ) Scaly -Color (Mayra-wound Skin Appearance) Assessed -Temperature (Mayra-wound Skin No Abnormality Appearance) (Pt Warm) -Tenderness on Palpation (Mayra-wound No Skin Appearance) -Ulcer Cleansing Rinsed/ Irrigated with Saline -Foul Odor after Cleansing No -Anesthetic Used 4% Lidocaine Solution 5. R scapula -Combined with other wound No -Current Size (cm) - Length 4.4 -Current Size (cm) - Width 4.6 -Current Size (cm) - Depth 0.1 -Total Square Cm 20.24 -Photo Taken Yes -Epithelialization Small 1-33% -Tunneling No -Undermining/Tunneling No -Circular Undermining No -Exudate Amt Medium -Exudate Type Serosanguineous -Wound Margin Flat & Intact -Granulation Amt Large (67-100%) -Granulation Quality Red -Slough/Fibrin Yes -Necrosis Amt Small (1-33%) -Necrotic Tissue Type Adherent Slough -Structure Exposed N/A -Texture (Mayra-wound Skin Appearance) Assessed, Scarring -Moisture (Mayra-wound Skin Appearance Assessed,Dry/ ) Scaly -Color (Mayra-wound Skin Appearance) Assessed -Temperature (Mayra-wound Skin No Abnormality Appearance) (Pt Warm) -Tenderness on Palpation (Mayra-wound No Skin Appearance) -Ulcer Cleansing Rinsed/ Irrigated with Saline -Foul Odor after Cleansing No -Anesthetic Used 4% Lidocaine Solution [Edema Assessment] -Lower Limb Edema Present NA WC - Nurse 2 - General Ulcer CM Notes Start: 06/18/19 08:04 Freq: Status: Active Protocol: Activity Type Activity Date Activity User E-Sign Co-Sign Detail Recorded Client Recorded Date Recorded By Document 06/24/19 08:34 [facility] [id number] 06/24/19 08:47 [facility] 06/24/19 08:34 Wound Center Nurse 2 [Procedure/Treatment] #7 R Lower Side -Time 08:36 -Correct Patient Yes -Correct Side, Site, Position Yes -Correct Procedure Yes -Procedure Performed Yes -Type of Procedure Debridement -Clinical Debridement Subcutaneous -Post Debridement Size (cm) - Length 0.3 -Post Debridement Size (cm) - Width 1.0 -Post Debridement Size (cm) - Depth 0.2 -Total Square Cm 0.30 -Wound/Ulcer Outcome Not Healed -Ulcer Cleansing Rinsed/ Irrigated with Saline -Foul Odor after Cleansing No -Bioengineered Tissue No -Bleeding Controlled with Pressure -Offloading No -Treatment Response Procedure Tolerated Well 6. L lumbar back -Time 08:36 -Correct Patient Yes -Correct Side, Site, Position Yes -Correct Procedure Yes -Procedure Performed Yes -Type of Procedure Debridement -Clinical Debridement Subcutaneous -Post Debridement Size (cm) - Length 9.9 -Post Debridement Size (cm) - Width 5.5 -Post Debridement Size (cm) - Depth 0.3 -Total Square Cm 54.45 -Wound/Ulcer Outcome Not Healed -Ulcer Cleansing Rinsed/ Irrigated with Saline -Foul Odor after Cleansing No -Bioengineered Tissue No -Bleeding Controlled with Pressure -Offloading No -Treatment Response Procedure Tolerated Well 5. R scapula -Time 08:39 -Correct Patient Yes -Correct Side, Site, Position Yes -Correct Procedure Yes -Procedure Performed Yes -Type of Procedure Debridement -Clinical Debridement Subcutaneous -Post Debridement Size (cm) - Length 6.5 -Post Debridement Size (cm) - Width 2.2 -Post Debridement Size (cm) - Depth 0.3 -Total Square Cm 14.30 -Wound/Ulcer Outcome Not Healed -Ulcer Cleansing Rinsed/ Irrigated with Saline -Foul Odor after Cleansing No -Bioengineered Tissue No -Bleeding Controlled with Pressure -Offloading No -Treatment Response Procedure Tolerated Well [See Physician Procedure note for Specifics] Pain Scale: 0-10 Numeric [Pain] -Is Patient Pain Free? Yes Musculoskeletal: No Tenderness to Palpation of Joints or Extremities Neurological: Neuro grossly intact Psych/Mental Status: Normal Affect, Appropriate Debridement Note Post-Debridement Measurements/Treatment WC - Nurse 2 - General Ulcer CM Notes Start: 06/18/19 08:04 Freq: Status: Active Protocol: Activity Type Activity Date Activity User E-Sign Co-Sign Detail Recorded Client Recorded Date Recorded By Document 06/18/19 08:43 DV [id number] 06/18/19 08:54 DV Document 06/24/19 08:34 [id number] 06/24/19 08:47 06/18/19 06/24/19 08:43 08:34 Wound Center Nurse 2 #7 R Lower Side -Time 08:47 08:36 -Correct Patient Yes Yes -Correct Side, Site, Position Yes Yes -Correct Procedure Yes Yes -Procedure Performed Yes Yes -Type of Procedure Debridement Debridement -Clinical Debridement Subcutaneous Subcutaneous -Post Debridement Size (cm) - Length 0.3 0.3 -Post Debridement Size (cm) - Width 0.9 1.0 -Post Debridement Size (cm) - Depth 0.4 0.2 -Total Square Cm 0.27 0.30 -Wound/Ulcer Outcome Not Healed Not Healed -Ulcer Cleansing Rinsed/ Rinsed/ Irrigated with Irrigated with Saline Saline -Foul Odor after Cleansing No No -Bioengineered Tissue No No -Bleeding Controlled with Pressure Pressure -Offloading No No -Treatment Response Procedure Procedure Tolerated Well Tolerated Well 6. L lumbar back -Time 08:49 08:36 -Correct Patient Yes Yes -Correct Side, Site, Position Yes Yes -Correct Procedure Yes Yes -Procedure Performed Yes Yes -Type of Procedure Debridement Debridement -Clinical Debridement Subcutaneous Subcutaneous -Post Debridement Size (cm) - Length 10.0 9.9 -Post Debridement Size (cm) - Width 4.4 5.5 -Post Debridement Size (cm) - Depth 0.3 0.3 -Total Square Cm 44.00 54.45 -Wound/Ulcer Outcome Not Healed Not Healed -Ulcer Cleansing Rinsed/ Rinsed/ Irrigated with Irrigated with Saline Saline -Foul Odor after Cleansing No No -Bioengineered Tissue No No -Bleeding Controlled with Pressure Pressure -Offloading No No -Treatment Response Procedure Procedure Tolerated Well Tolerated Well 5. R scapula -Time 08:50 08:39 -Correct Patient Yes Yes -Correct Side, Site, Position Yes Yes -Correct Procedure Yes Yes -Procedure Performed Yes Yes -Type of Procedure Debridement Debridement -Clinical Debridement Subcutaneous Subcutaneous -Post Debridement Size (cm) - Length 6.5 6.5 -Post Debridement Size (cm) - Width 2.3 2.2 -Post Debridement Size (cm) - Depth 0.3 0.3 -Total Square Cm 14.95 14.30 -Wound/Ulcer Outcome Not Healed Not Healed -Ulcer Cleansing Rinsed/ Rinsed/ Irrigated with Irrigated with Saline Saline -Foul Odor after Cleansing No No -Bioengineered Tissue No No -Bleeding Controlled with Pressure Pressure -Offloading No -Treatment Response Procedure Procedure Tolerated Well Tolerated Well Pain Scale: 0-10 Numeric Is Patient Pain Free? Yes Yes Wound debrided: Lateral middle back ulcer cluster Laterality: Right Type of Debridement: Excisional debridement Anesthesia Used: 5% Lidocaine Gel Depth: Down to and including healthy tissue, in the subcutaneous layer Percentage of wound debrided: 100 Instrument Used: 5mm curette Tissue Removed: Subcutaneous tissue and slough Severity: Limited To Skin Breakdown Amount of bleeding with debridement: Mild Bleeding Controlled with: Pressure Patient tolerated procedure well Base of open areas are beefy pink. - Additional Wound Wound debrided: Lateral middle back ulcer clusters Laterality: Left Type of Debridement: Excisional debridement Anesthesia Used: 4% Lidocaine Solution, 5% Lidocaine Gel Depth: Down to and including healthy tissue, in the subcutaneous layer Percentage of wound debrided: 100 Instrument Used: 3mm curette Tissue Removed: Subcutaneous tissue and slough Severity: Fat Layer Exposed Amount of bleeding with debridement: Mild Bleeding Controlled with: Pressure Patient tolerated procedure: Patient tolerated procedure well - Additional Wound Wound debrided: Flank donor site with small opening Laterality: Right Type of Debridement: Excisional debridement Anesthesia Used: 5% Lidocaine Gel Depth: Down to and including healthy tissue, in the subcutaneous layer Percentage of wound debrided: 100 Instrument Used: 3mm curette Tissue Removed: Subcutaneous tissue and slough Severity: Limited To Skin Breakdown Amount of bleeding with debridement: Mild Bleeding Controlled with: Pressure Patient tolerated procedure: Patient tolerated procedure well Assessment/Plan Active Problems (Last Reviewed 04/30/19 @ 09:[address] 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 Nonhealing diabetic ulcer right lateral middle back. 2. Nonhealing diabetic ulcer left lateral middle back. 3. Diabetes mellitus. 4. s/p surgical preparation right lateral middle back with excision nonhealing diabetic ulcer and reconstruction with STSG from right posterior flank (21 cm2) and placement AmnioFill Placental Connective Tissue Powder (250 mg) and placement TAYLOR NPWT and surgical preparation left lateral middle back with excision nonhealing diabetic ulcer and reconstruction with STSG from left posterior flank (48 cm2) and placement of AmnioFill Placental Connective Tissue Powder (500 mg) and placement of TAYLOR NPWT. 5. Mild compromised skin grafts. Plan: Amnio [place] advanced skin product was placed on both back ulcers, he developed more areas opened and several of the previously open areas have enlarged. Will have him wash daily with either chlorhexidine or Dial soap and then apply OTC antibiotic ointment (this is something the patient bought that is a collagen hydrogel with silver in it- he would like to try it). Will have him use mupirocin ointment twice daily to nares to make sure he does not have any colonization of staph epi. He has finished the HBO. Operative cultures showed Corynebaterium amycolatum/xer and Salma albicans in the right lateral middle back ulcer and MRSE, Staphylococcus epidermidis, and Corynebacterium amycolatum/xer in the left lateral middle back ulcer. He has finished the Cleocin and the Diflucan. His LFT's on 02/26/19 were normal. A recent culture on 04/15/19 showed MRSE and he was placed on Zyvox and has finished them. Another wound culture was done on 05/27/19. It showed Staphylococcus epidermidis in both ulcers. He restarted his Doxycycline. Had a discussion with the patient about his persistent Staphylococcus in the ulcers despite multiple oral antibiotic treatments. He would benefit from IV antibiotics to see if that helps to jump start the healing process. In addition to the IV antibiotics, another operative debridement may be necessary in case any abnormal residual scar tissue is present that is hindering healing as well. He will think about that option but for now he wants to try more oral antibiotics and Amnio [place] product. Prealbumin from 12/05/18 was 22.5. Encourage nutritional supplementation with protein to help the healing process. He saw Dr. Jerez last week as consult. Will look into possible further HBO therapy since that is the one thing the patient feels has worked the best. Will discuss with Dr. Lemus. Follow up one week. Dr. Jerez's plan: Upon evaluation, it is evident that the patient has a very complicated past medical history. Despite all efforts to date, the ulcerations on his back have failed to heal. In fact, recently, the ulcerations have enlarged, becoming larger in size. The reason for which the ulcerations have failed to heal, and have worsened, remains enigmatic. In speaking with the patient, he indicates that the intervention which seemed to result in the most improvement was that of hyperbaric oxygen therapy. He has undergone a total of 40 such treatments. It may well be that reimplementation of hyperbaric oxygen therapy will be of benefit. In addition, wound infection or colonization may impair wound healing. Swab cultures have been obtained today for both aerobic and anaerobic growth, and results will be awaited. It is my intention to speak with Shabana Reeves, [facility], and Dr. Lemus to discuss further treatment options. Certainly, bacterial infection and or impaired tissue perfusion may account for the lack of healing progress. Were either or both of these factors still exist, appropriate antibiotic management and hyperbaric oxygen therapy may be of benefit. I agree with the role of skin substitutes, though determining the optimal product may be consequential. I will plan to discuss the matter in more detail with the patient's other providers in an effort to create a collaborative plan of management moving forward. Another consideration would be to evaluate the patient in terms of an autoimmune process. Malignancy appears to have been ruled out based upon prior biopsy results. Cultures, if positive, may reveal some evidence of recurring infection by similar organisms to prior infections, which may have specific implications. The patient is to use MediHoney topically on a daily basis until he is reevaluated next week. [id number]: [id number] Pooja subq tissue 20 sq cm/< Add On Codes: [id number] Pooja subq tissue add-on - x3
[2019-07-01 07:58] VITALS: BP 127/76; PULSE 78; RESP 16; TEMP 37.2; BMI 28.4
--- NOTE | 2019-07-01 09:54 | PCM.WC.PN ---
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 Current Visit: Yes Code(s): T86.821 - Skin graft (allograft) (autograft) failure (4) Dehiscence of external surgical wound Status: Chronic Current Visit: Yes Qualifiers: Encounter type: initial encounter Qualified Code(s): T81.31XA - Disruption of external operation (surgical) wound, not elsewhere classified, initial encounter Code(s): T81.31XA - Disruption of external operation (surgical) wound, not elsewhere classified, initial encounter (5) Type 2 diabetes mellitus Status: Chronic Current Visit: Yes Qualifiers: Code(s): E11.9 - Type 2 diabetes mellitus without complications Type of Wound Date of Service: 07/01/19 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: Nonhealing diabetic ulcers left lateral middle back and right lateral middle back with compromised skin grafts. History of Wound: Surgery 02/18/19 - 1. Surgical preparation right lateral middle back with excision nonhealing diabetic ulcer. 2. Reconstruction with STSG from right posterior flank (21 cm2) and placement AmnioFill Placental Connective Tissue Powder (250 mg) and placement TAYLOR NPWT. 3. Surgical preparation left lateral middle back with excision nonhealing diabetic ulcer. 4. Reconstruction with STSG from left posterior flank (48 cm2) and placement of AmnioFill Placental Connective Tissue Powder (500 mg) and placement of TAYLOR NPWT. Wound care - OTC antibiotic ointment once daily after washing with chlorahexadine or dial soap. He had Amnio excel #1 placed which he had an increase in the size of his ulcers. Will have him use nasal mupirocin twice daily x 5 days to cover a potential colonization of staph epi. Operative cultures - MRSE, Staphylococcus epidermidis, and Corynebacterium amycolatum/xer in the left lateral middle back and Corynebacterium amycolatum/xer and Salma albicans in the right lateral middle back. He was placed on Cleocin and Diflucan and has finished them. A repeat culture on 04/15/19 showed MRSE. He was placed on Zyvox and has finished them. Repeat wound culture on 05/27/19 showed Staphylococcus epidermidis in both ulcers. Doxycycline was restarted. Prealbumin from 12/05/18 was 22.5. Wound culture from 06/17/19 negative for growth. Encourage nutritonal supplementation with protein to help the healing process. He developed some compromise to the skin grafts on his back. He completed HBO treatments and has tolerated them. Today he denies fever. His appetite is good. He will see Dr. Lemus next week who can discuss surgical options or more HBO therapy since the patient states that is the only thing that really has helped his wound progress the effectively. He saw Dr. Jerez as a consult on 06/18/19: This is a 58-year-old male who has been under the care of providers at the [facility] since March 2018. Prior to his initial presentation here, he was treated by his primary care physician for bothersome sebaceous cysts of the back. The patient's primary care physician apparently incised and drained the cysts, for the purpose of decompression. It is presumed that they may have been infected at the time of incision and drainage. The patient then presented thereafter for evaluation and management at the wound center, and has been under care since early 2018. A variety of methods and interventions have been implemented in an effort to achieve healing. Wound infections have been treated with courses of antibiotics tailored to culture and sensitivity results. On June 12, 2018, the patient underwent surgical debridement, wound excision, and skin graft of right- and left- sided mid back wounds. Wound compromise of the skin grafts developed, and the patient underwent a series of 40 hyperbaric oxygen therapy sessions, which were completed on May 10, 2019. The patient has also undergone a series of allograft applications, negative pressure wound therapy, and other contemporary wound care measures. Despite all interventions, the ulcerations on the patient's back have failed to heal to completion. He presents today for further evaluation, where it is noted that the right lateral abdominal wall skin graft donor site has also become dehiscent, and the site of a new open wound. It is noted that the ulcerations on the patient's back have recently enlarged, despite all measures to promote healing. The patient has a history of diabetes mellitus. He has purposely made efforts to lose weight, and has recently lost approximately 45 pounds. He is generally active and functional. Progress of Wound: Increased ulcer clusters with new openings. Right donor site also has small opening. - Physical Exam Vital Signs Temp Pulse Resp BP Pulse Ox 98.9 F 78 16 127/76 H 97 07/01/19 07:58 07/01/19 07:58 07/01/19 07:58 07/01/19 07:58 06/16/19 00:30 General: Alert, Oriented x3, Cooperative HEENT: Atraumatic Oral: Moist Mucosa Lungs: Normal air movement Cardiovascular: Regular rate Abdomen: Soft Extremities: Capillary Refill Less than 3 Seconds Skin: Ulcer/ Wound - right lateral middle back skin graft with ulcer cluster, left lateral middle back skin graft ulcer cluster and left flank ulcer Wound Measurements and Assessment WC - Nurse 1 - General Ulcer Measurement Start: 06/18/19 08:04 Freq: Status: Active Protocol: Activity Type Activity Date Activity User E-Sign Co-Sign Detail Recorded Client Recorded Date Recorded By Document 07/01/19 07:58 MW [id number] 07/01/19 08:03 MW 07/01/19 07:58 Wound Center Nurse 1 [Ulcer Assessment] #7 R Lower Side -Combined with other wound No -Current Size (cm) - Length 0.3 -Current Size (cm) - Width 0.6 -Current Size (cm) - Depth 0.2 -Total Square Cm 0.18 -Photo Taken No -Epithelialization None Present -Tunneling No -Undermining/Tunneling No -Circular Undermining No -Exudate Amt Small -Exudate Type Serous -Wound Margin Flat & Intact -Granulation Amt Large (67-100%) -Granulation Quality [place] -Slough/Fibrin Yes -Necrosis Amt Small (1-33%) -Necrotic Tissue Type Adherent Slough -Structure Exposed N/A -Texture (Mayra-wound Skin Appearance) Assessed, Scarring -Moisture (Mayra-wound Skin Appearance No Abnormality, ) Assessed -Color (Mayra-wound Skin Appearance) No Abnormality, Assessed -Temperature (Mayra-wound Skin No Abnormality Appearance) (Pt Warm) -Tenderness on Palpation (Mayra-wound No Skin Appearance) -Ulcer Cleansing Rinsed/ Irrigated with Saline -Foul Odor after Cleansing No -Anesthetic Used 5% Lidocaine Gel 6. L lumbar back -Combined with other wound No -Current Size (cm) - Length 8.0 -Current Size (cm) - Width 9.4 -Current Size (cm) - Depth 0.2 -Total Square Cm 75.20 -Photo Taken No -Epithelialization None Present -Tunneling No -Undermining/Tunneling No -Circular Undermining No -Exudate Amt Small -Exudate Type Serosanguineous -Wound Margin Flat & Intact -Granulation Amt Large (67-100%) -Granulation Quality [place] -Necrosis Amt Small (1-33%) -Necrotic Tissue Type Adherent Slough -Structure Exposed N/A -Texture (Mayra-wound Skin Appearance) Assessed, Scarring -Moisture (Mayra-wound Skin Appearance No Abnormality, ) Assessed -Color (Mayra-wound Skin Appearance) No Abnormality, Assessed -Temperature (Mayra-wound Skin No Abnormality Appearance) (Pt Warm) -Tenderness on Palpation (Mayra-wound Yes Skin Appearance) -Ulcer Cleansing Rinsed/ Irrigated with Saline -Foul Odor after Cleansing No -Anesthetic Used 5% Lidocaine Gel 5. R scapula -Combined with other wound No -Current Size (cm) - Length 4.0 -Current Size (cm) - Width 4.8 -Current Size (cm) - Depth 0.2 -Total Square Cm 19.20 -Photo Taken No -Epithelialization None Present -Tunneling No -Undermining/Tunneling No -Circular Undermining No -Exudate Amt Small -Exudate Type Serosanguineous -Wound Margin Flat & Intact -Granulation Amt Large (67-100%) -Granulation Quality [place] -Slough/Fibrin Yes -Necrosis Amt Small (1-33%) -Necrotic Tissue Type Adherent Slough -Structure Exposed N/A -Texture (Mayra-wound Skin Appearance) Assessed, Scarring -Moisture (Mayra-wound Skin Appearance No Abnormality, ) Assessed -Color (Mayra-wound Skin Appearance) No Abnormality, Assessed -Temperature (Mayra-wound Skin No Abnormality Appearance) (Pt Warm) -Tenderness on Palpation (Mayra-wound No Skin Appearance) -Ulcer Cleansing Rinsed/ Irrigated with Saline -Foul Odor after Cleansing No -Anesthetic Used 5% Lidocaine Gel [Edema Assessment] -Lower Limb Edema Present No WC - Nurse 2 - General Ulcer CM Notes Start: 06/18/19 08:04 Freq: Status: Active Protocol: Activity Type Activity Date Activity User E-Sign Co-Sign Detail Recorded Client Recorded Date Recorded By Document 07/01/19 08:23 [facility] [id number] 07/01/19 08:31 [facility] 07/01/19 08:23 Wound Center Nurse 2 [Procedure/Treatment] #7 R Lower Side -Time 08:23 -Correct Patient Yes -Correct Side, Site, Position Yes -Correct Procedure Yes -Procedure Performed Yes -Type of Procedure Debridement -Clinical Debridement Subcutaneous -Post Debridement Size (cm) - Length 0.5 -Post Debridement Size (cm) - Width 1.2 -Post Debridement Size (cm) - Depth 0.2 -Total Square Cm 0.60 -Wound/Ulcer Outcome Not Healed -Ulcer Cleansing Rinsed/ Irrigated with Saline -Foul Odor after Cleansing No -Bioengineered Tissue No -Bleeding Controlled with Pressure -Offloading No -Treatment Response Procedure Tolerated Well 6. L lumbar back -Time 08:23 -Correct Patient Yes -Correct Side, Site, Position Yes -Correct Procedure Yes -Procedure Performed Yes -Type of Procedure Debridement -Clinical Debridement Subcutaneous -Post Debridement Size (cm) - Length 10.2 -Post Debridement Size (cm) - Width 5.2 -Post Debridement Size (cm) - Depth 0.2 -Total Square Cm 53.04 -Wound/Ulcer Outcome Not Healed -Ulcer Cleansing Rinsed/ Irrigated with Saline -Foul Odor after Cleansing No -Bioengineered Tissue No -Bleeding Controlled with Pressure -Offloading No -Treatment Response Procedure Tolerated Well 5. R scapula -Time 08:24 -Correct Patient Yes -Correct Side, Site, Position Yes -Correct Procedure Yes -Procedure Performed Yes -Type of Procedure Debridement -Clinical Debridement Subcutaneous -Post Debridement Size (cm) - Length 7.1 -Post Debridement Size (cm) - Width 2.2 -Post Debridement Size (cm) - Depth 0.2 -Total Square Cm 15.62 -Wound/Ulcer Outcome Not Healed -Ulcer Cleansing Rinsed/ Irrigated with Saline -Foul Odor after Cleansing No -Bioengineered Tissue No -Bleeding Controlled with Pressure -Offloading No -Treatment Response Procedure Tolerated Well [See Physician Procedure note for Specifics] Pain Scale: 0-10 Numeric [Pain] -Is Patient Pain Free? Yes Musculoskeletal: No Tenderness to Palpation of Joints or Extremities Neurological: Neuro grossly intact Psych/Mental Status: Normal Affect, Appropriate Debridement Note Post-Debridement Measurements/Treatment WC - Nurse 2 - General Ulcer CM Notes Start: 06/18/19 08:04 Freq: Status: Active Protocol: Activity Type Activity Date Activity User E-Sign Co-Sign Detail Recorded Client Recorded Date Recorded By Document 06/18/19 08:43 DV [id number] 06/18/19 08:54 DV Document 06/24/19 08:34 JF [id number] 06/24/19 08:47 JF Document 07/01/19 08:23 JF [id number] 07/01/19 08:31 06/18/19 06/24/19 07/01/19 08:43 08:34 08:23 Wound Center Nurse 2 #7 R Lower Side -Time 08:47 08:36 08:23 -Correct Patient Yes Yes Yes -Correct Side, Site, Position Yes Yes Yes -Correct Procedure Yes Yes Yes -Procedure Performed Yes Yes Yes -Type of Procedure Debridement Debridement Debridement -Clinical Debridement Subcutaneous Subcutaneous Subcutaneous -Post Debridement Size (cm) - Length 0.3 0.3 0.5 -Post Debridement Size (cm) - Width 0.9 1.0 1.2 -Post Debridement Size (cm) - Depth 0.4 0.2 0.2 -Total Square Cm 0.27 0.30 0.60 -Wound/Ulcer Outcome Not Healed Not Healed Not Healed -Ulcer Cleansing Rinsed/ Rinsed/ Rinsed/ Irrigated with Irrigated with Irrigated with Saline Saline Saline -Foul Odor after Cleansing No No No -Bioengineered Tissue No No No -Bleeding Controlled with Pressure Pressure Pressure -Offloading No No No -Treatment Response Procedure Procedure Procedure Tolerated Well Tolerated Well Tolerated Well 6. L lumbar back -Time 08:49 08:36 08:23 -Correct Patient Yes Yes Yes -Correct Side, Site, Position Yes Yes Yes -Correct Procedure Yes Yes Yes -Procedure Performed Yes Yes Yes -Type of Procedure Debridement Debridement Debridement -Clinical Debridement Subcutaneous Subcutaneous Subcutaneous -Post Debridement Size (cm) - Length 10.0 9.9 10.2 -Post Debridement Size (cm) - Width 4.4 5.5 5.2 -Post Debridement Size (cm) - Depth 0.3 0.3 0.2 -Total Square Cm 44.00 54.45 53.04 -Wound/Ulcer Outcome Not Healed Not Healed Not Healed -Ulcer Cleansing Rinsed/ Rinsed/ Rinsed/ Irrigated with Irrigated with Irrigated with Saline Saline Saline -Foul Odor after Cleansing No No No -Bioengineered Tissue No No No -Bleeding Controlled with Pressure Pressure Pressure -Offloading No No No -Treatment Response Procedure Procedure Procedure Tolerated Well Tolerated Well Tolerated Well 5. R scapula -Time 08:50 08:39 08:24 -Correct Patient Yes Yes Yes -Correct Side, Site, Position Yes Yes Yes -Correct Procedure Yes Yes Yes -Procedure Performed Yes Yes Yes -Type of Procedure Debridement Debridement Debridement -Clinical Debridement Subcutaneous Subcutaneous Subcutaneous -Post Debridement Size (cm) - Length 6.5 6.5 7.1 -Post Debridement Size (cm) - Width 2.3 2.2 2.2 -Post Debridement Size (cm) - Depth 0.3 0.3 0.2 -Total Square Cm 14.95 14.30 15.62 -Wound/Ulcer Outcome Not Healed Not Healed Not Healed -Ulcer Cleansing Rinsed/ Rinsed/ Rinsed/ Irrigated with Irrigated with Irrigated with Saline Saline Saline -Foul Odor after Cleansing No No No -Bioengineered Tissue No No No -Bleeding Controlled with Pressure Pressure Pressure -Offloading No No -Treatment Response Procedure Procedure Procedure Tolerated Well Tolerated Well Tolerated Well Pain Scale: 0-10 Numeric Is Patient Pain Free? Yes Yes Yes Wound debrided: flank ulcer Laterality: Right Type of Debridement: Excisional debridement Anesthesia Used: 4% Lidocaine Solution, 5% Lidocaine Gel Depth: Down to and including healthy tissue, in the subcutaneous layer Percentage of wound debrided: 100 Instrument Used: 3mm curette Tissue Removed: subcutaneous tissue and slough Severity: Fat Layer Exposed Amount of bleeding with debridement: Mild Bleeding Controlled with: Pressure Patient tolerated procedure well - Additional Wound Wound debrided: lateral middle back ulcer cluster in skin grafted area Laterality: Right Type of Debridement: Excisional debridement Anesthesia Used: 4% Lidocaine Solution, 5% Lidocaine Gel Depth: Down to and including healthy tissue, in the subcutaneous layer Percentage of wound debrided: 100 Instrument Used: 5mm curette Tissue Removed: subcutaneous tissue and slough Severity: Fat Layer Exposed Amount of bleeding with debridement: Mild Bleeding Controlled with: Pressure Patient tolerated procedure: Patient did not tolerate procedure well - Patient has increased pain and sensitivity to this ulcer cluster, he can hardly stand to have it touched but does manage to allow debridement. - Additional Wound Wound debrided: middle back skin graft with ulcer clusters in the graft Laterality: Left Type of Debridement: Excisional debridement Anesthesia Used: 4% Lidocaine Solution, 5% Lidocaine Gel Depth: Down to and including healthy tissue, in the subcutaneous layer Percentage of wound debrided: 100 Instrument Used: 5mm curette Tissue Removed: subcutaneous tissue and slough Severity: Fat Layer Exposed Amount of bleeding with debridement: Mild Bleeding Controlled with: Pressure, Compression and gauze Patient tolerated procedure: Patient tolerated procedure well Assessment/Plan Active Problems (Last Reviewed 04/30/19 @ 09:[address] 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 Nonhealing diabetic ulcer right lateral middle back. 2. Nonhealing diabetic ulcer left lateral middle back. 3. Diabetes mellitus. 4. s/p surgical preparation right lateral middle back with excision nonhealing diabetic ulcer and reconstruction with STSG from right posterior flank (21 cm2) and placement AmnioFill Placental Connective Tissue Powder (250 mg) and placement TAYLOR NPWT and surgical preparation left lateral middle back with excision nonhealing diabetic ulcer and reconstruction with STSG from left posterior flank (48 cm2) and placement of AmnioFill Placental Connective Tissue Powder (500 mg) and placement of TAYLOR NPWT. 5. Mild compromised skin grafts. Plan: Amnio [place] advanced skin product was placed on both back ulcers, he developed more areas opened and several of the previously open areas have enlarged. Will have him wash daily with either chlorhexidine or Dial soap and then apply OTC antibiotic ointment (this is something the patient bought that is a collagen hydrogel with silver in it- he would like to try it). He completed the mupirocin ointment twice daily to nares to make sure he does not have any colonization of staph epi. He has finished the HBO. Operative cultures showed Corynebaterium amycolatum/xer and Salma albicans in the right lateral middle back ulcer and MRSE, Staphylococcus epidermidis, and Corynebacterium amycolatum/xer in the left lateral middle back ulcer. He has finished the Cleocin and the Diflucan. His LFT's on 02/26/19 were normal. A recent culture on 04/15/19 showed MRSE and he was placed on Zyvox and has finished them. Another wound culture was done on 05/27/19. It showed Staphylococcus epidermidis in both ulcers. He restarted his Doxycycline. Dr. Jerez did cultures on 06/18/19 when he saw him and they were negative for bacterial growth, but patient was still on Doxycycline when the cultures were obtained. Had a discussion with the patient about his persistent Staphylococcus in the ulcers despite multiple oral antibiotic treatments. He would benefit from IV antibiotics to see if that helps to jump start the healing process. In addition to the IV antibiotics, another operative debridement may be necessary in case any abnormal residual scar tissue is present that is hindering healing as well. He will think about that option but for now he wants to try more oral antibiotics and Amnio [place] product. Prealbumin from 12/05/18 was 22.5. Encourage nutritional supplementation with protein to help the healing process. He saw Dr. Jerez last week as consult. Will look into possible further HBO therapy since that is the one thing the patient feels has worked the best. Will discuss with Dr. Lemus. Follow up one week. Dr. Jerez's plan: Upon evaluation, it is evident that the patient has a very complicated past medical history. Despite all efforts to date, the ulcerations on his back have failed to heal. In fact, recently, the ulcerations have enlarged, becoming larger in size. The reason for which the ulcerations have failed to heal, and have worsened, remains enigmatic. In speaking with the patient, he indicates that the intervention which seemed to result in the most improvement was that of hyperbaric oxygen therapy. He has undergone a total of 40 such treatments. It may well be that reimplementation of hyperbaric oxygen therapy will be of benefit. In addition, wound infection or colonization may impair wound healing. Swab cultures have been obtained today for both aerobic and anaerobic growth, and results will be awaited. It is my intention to speak with Shabana Reeves NP, and Dr. Lemus to discuss further treatment options. Certainly, bacterial infection and or impaired tissue perfusion may account for the lack of healing progress. Were either or both of these factors still exist, appropriate antibiotic management and hyperbaric oxygen therapy may be of benefit. I agree with the role of skin substitutes, though determining the optimal product may be consequential. I will plan to discuss the matter in more detail with the patient's other providers in an effort to create a collaborative plan of management moving forward. Another consideration would be to evaluate the patient in terms of an autoimmune process. Malignancy appears to have been ruled out based upon prior biopsy results. Cultures, if positive, may reveal some evidence of recurring infection by similar organisms to prior infections, which may have specific implications. The patient is to use MediHoney topically on a daily basis until he is reevaluated next week. [id number]: [id number] Pooja subq tissue 20 sq cm/< Add On Codes: [id number] Pooja subq tissue add-on - x3
[2019-07-08 08:03] VITALS: BP 110/65; PULSE 78; RESP 18; TEMP 35.9; BMI 28.4
--- NOTE | 2019-07-08 17:17 | PCM.WC.PN ---
Type of Wound Date of Service: 07/08/19 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: Nonhealing diabetic ulcers left lateral middle back and right lateral middle back with compromised skin grafts. History of Wound: Surgery 02/18/19 - 1. Surgical preparation right lateral middle back with excision nonhealing diabetic ulcer. 2. Reconstruction with STSG from right posterior flank (21 cm2) and placement AmnioFill Placental Connective Tissue Powder (250 mg) and placement TAYLOR NPWT. 3. Surgical preparation left lateral middle back with excision nonhealing diabetic ulcer. 4. Reconstruction with STSG from left posterior flank (48 cm2) and placement of AmnioFill Placental Connective Tissue Powder (500 mg) and placement of TAYLOR NPWT. Wound care - OTC antibiotic ointment once daily after washing with chlorhexadine or dial soap. Wound cultures from 05/27/19 showed Staphylococcus epidermidis in both ulcers. He was started on Doxycycline. While on Doxycycline, he had another wound culture done on 06/18/19 which was negative. He has had persistent cultures over the past year showing MRSE, Staphylococcus aureus, Methicillin resistant Staphylococcus haemolyticus, Staphylococcus lugdunensis, and Salma albicans. Prealbumin from 12/05/18 was 22.5. Encourage nutritonal supplementation with protein to help the healing process. He developed some compromise to the skin grafts on his back. He completed HBO treatments and has tolerated them. Today he denies fever. His appetite is good. Amnio [place] advanced skin product has been placed without improvement in the scattered ulcerations in the skin grafts. He is also developing increasing pain in the ulcerations making wound center debridements less than optimal. He has also noticed a small opening in the right posterior flank donor incision. Progress of Wound: Increased ulcer clusters with new openings. Right donor site also has small opening. - Physical Exam Vital Signs Temp Pulse Resp BP Pulse Ox 96.7 F L 78 18 110/65 97 07/08/19 08:03 07/08/19 08:03 07/08/19 08:03 07/08/19 08:03 06/16/19 00:30 Wound Measurements and Assessment WC - Nurse 1 - General Ulcer Measurement Start: 06/18/19 08:04 Freq: Status: Active Protocol: Activity Type Activity Date Activity User E-Sign Co-Sign Detail Recorded Client Recorded Date Recorded By Document 07/08/19 08:03 DL [id number] 07/08/19 08:10 DL 07/08/19 08:03 Wound Center Nurse 1 [Ulcer Assessment] #7 R Lower Side -Current Size (cm) - Length 0.4 -Current Size (cm) - Width 0.5 -Current Size (cm) - Depth 0.2 -Total Square Cm 0.20 -Photo Taken No -Exudate Amt Small -Exudate Type Serosanguineous -Wound Margin Distinct, Outline Attached -Granulation Amt Small (1-33%) -Granulation Quality Red -Necrosis Amt Small (1-33%) -Necrotic Tissue Type Adherent Slough -Structure Exposed N/A -Texture (Mayra-wound Skin Appearance) Scarring -Moisture (Mayra-wound Skin Appearance Maceration ) -Color (Mayra-wound Skin Appearance) Erythema,Rubor -Temperature (Mayra-wound Skin No Abnormality Appearance) (Pt Warm) -Tenderness on Palpation (Mayra-wound No Skin Appearance) -Ulcer Cleansing Wound Cleanser -Foul Odor after Cleansing No -Anesthetic Used 4% Lidocaine Solution 6. L lumbar back -Current Size (cm) - Length 7.4 -Current Size (cm) - Width 8.6 -Current Size (cm) - Depth 0.2 -Total Square Cm 63.64 -Photo Taken No -Exudate Amt Small -Exudate Type Serosanguineous -Wound Margin Distinct, Outline Attached -Granulation Amt Medium (34-66%) -Granulation Quality Red -Necrosis Amt Medium (34-66%) -Necrotic Tissue Type Adherent Slough -Structure Exposed N/A -Texture (Mayra-wound Skin Appearance) Scarring -Moisture (Mayra-wound Skin Appearance Maceration ) -Color (Mayra-wound Skin Appearance) Erythema,Rubor -Temperature (Mayra-wound Skin No Abnormality Appearance) (Pt Warm) -Tenderness on Palpation (Mayra-wound No Skin Appearance) -Ulcer Cleansing Wound Cleanser -Foul Odor after Cleansing No -Anesthetic Used 4% Lidocaine Solution 5. R scapula -Current Size (cm) - Length 6 -Current Size (cm) - Width 5 -Current Size (cm) - Depth 0.2 -Total Square Cm 30 -Photo Taken No -Exudate Amt Small -Exudate Type Serosanguineous -Wound Margin Distinct, Outline Attached -Granulation Amt Medium (34-66%) -Granulation Quality Red -Necrosis Amt Medium (34-66%) -Necrotic Tissue Type Adherent Slough -Structure Exposed N/A -Texture (Mayra-wound Skin Appearance) Scarring -Moisture (Mayra-wound Skin Appearance Maceration ) -Color (Mayra-wound Skin Appearance) Erythema,Rubor -Temperature (Mayra-wound Skin No Abnormality Appearance) (Pt Warm) -Tenderness on Palpation (Mayra-wound No Skin Appearance) -Ulcer Cleansing Wound Cleanser -Foul Odor after Cleansing No -Anesthetic Used 4% Lidocaine Solution WC - Nurse 2 - General Ulcer CM Notes Start: 06/18/19 08:04 Freq: Status: Active Protocol: Activity Type Activity Date Activity User E-Sign Co-Sign Detail Recorded Client Recorded Date Recorded By Document 07/08/19 08:33 [facility] [id number] 07/08/19 08:35 [facility] 07/08/19 08:33 Wound Center Nurse 2 [Procedure/Treatment] #7 R Lower Side -Time 08:34 -Correct Patient Yes -Correct Side, Site, Position Yes -Correct Procedure Yes -Procedure Performed Yes -Type of Procedure Debridement -Clinical Debridement Subcutaneous -Post Debridement Size (cm) - Length 0.5 -Post Debridement Size (cm) - Width 0.5 -Post Debridement Size (cm) - Depth 0.2 -Total Square Cm 0.25 -Wound/Ulcer Outcome Not Healed -Ulcer Cleansing Rinsed/ Irrigated with Saline -Foul Odor after Cleansing No -Bioengineered Tissue No -Bleeding Controlled with Pressure -Offloading No -Treatment Response Procedure Tolerated Well 6. L lumbar back -Time 08:34 -Correct Patient Yes -Correct Side, Site, Position Yes -Correct Procedure Yes -Procedure Performed Yes -Type of Procedure Debridement -Clinical Debridement Subcutaneous -Post Debridement Size (cm) - Length 7.5 -Post Debridement Size (cm) - Width 8.6 -Post Debridement Size (cm) - Depth 0.2 -Total Square Cm 64.50 -Wound/Ulcer Outcome Not Healed -Ulcer Cleansing Rinsed/ Irrigated with Saline -Foul Odor after Cleansing No -Bioengineered Tissue No -Bleeding Controlled with Pressure -Offloading No -Treatment Response Procedure Tolerated Well 5. R scapula -Time 08:34 -Correct Patient Yes -Correct Side, Site, Position Yes -Correct Procedure Yes -Procedure Performed Yes -Type of Procedure Debridement -Clinical Debridement Subcutaneous -Post Debridement Size (cm) - Length 6.1 -Post Debridement Size (cm) - Width 5 -Post Debridement Size (cm) - Depth 0.2 -Total Square Cm 30.5 -Wound/Ulcer Outcome Not Healed -Ulcer Cleansing Rinsed/ Irrigated with Saline -Foul Odor after Cleansing No -Bioengineered Tissue No -Bleeding Controlled with Pressure -Offloading No -Treatment Response Procedure Tolerated Well [See Physician Procedure note for Specifics] Pain Scale: 0-10 Numeric [Pain] -Is Patient Pain Free? Yes Debridement Note Post-Debridement Measurements/Treatment WC - Nurse 2 - General Ulcer CM Notes Start: 06/18/19 08:04 Freq: Status: Active Protocol: Activity Type Activity Date Activity User E-Sign Co-Sign Detail Recorded Client Recorded Date Recorded By Document 06/18/19 08:43 DV [id number] 06/18/19 08:54 DV Document 06/24/19 08:34 JF [id number] 06/24/19 08:47 JF Document 07/01/19 08:23 JF [id number] 07/01/19 08:31 JF Document 07/08/19 08:33 [id number] 07/08/19 08:35 JF 06/18/19 06/24/19 07/01/19 08:43 08:34 08:23 Wound Center Nurse 2 #7 R Lower Side -Time 08:47 08:36 08:23 -Correct Patient Yes Yes Yes -Correct Side, Site, Position Yes Yes Yes -Correct Procedure Yes Yes Yes -Procedure Performed Yes Yes Yes -Type of Procedure Debridement Debridement Debridement -Clinical Debridement Subcutaneous Subcutaneous Subcutaneous -Post Debridement Size (cm) - Length 0.3 0.3 0.5 -Post Debridement Size (cm) - Width 0.9 1.0 1.2 -Post Debridement Size (cm) - Depth 0.4 0.2 0.2 -Total Square Cm 0.27 0.30 0.60 -Wound/Ulcer Outcome Not Healed Not Healed Not Healed -Ulcer Cleansing Rinsed/ Rinsed/ Rinsed/ Irrigated with Irrigated with Irrigated with Saline Saline Saline -Foul Odor after Cleansing No No No -Bioengineered Tissue No No No -Bleeding Controlled with Pressure Pressure Pressure -Offloading No No No -Treatment Response Procedure Procedure Procedure Tolerated Well Tolerated Well Tolerated Well 6. L lumbar back -Time 08:49 08:36 08:23 -Correct Patient Yes Yes Yes -Correct Side, Site, Position Yes Yes Yes -Correct Procedure Yes Yes Yes -Procedure Performed Yes Yes Yes -Type of Procedure Debridement Debridement Debridement -Clinical Debridement Subcutaneous Subcutaneous Subcutaneous -Post Debridement Size (cm) - Length 10.0 9.9 10.2 -Post Debridement Size (cm) - Width 4.4 5.5 5.2 -Post Debridement Size (cm) - Depth 0.3 0.3 0.2 -Total Square Cm 44.00 54.45 53.04 -Wound/Ulcer Outcome Not Healed Not Healed Not Healed -Ulcer Cleansing Rinsed/ Rinsed/ Rinsed/ Irrigated with Irrigated with Irrigated with Saline Saline Saline -Foul Odor after Cleansing No No No -Bioengineered Tissue No No No -Bleeding Controlled with Pressure Pressure Pressure -Offloading No No No -Treatment Response Procedure Procedure Procedure Tolerated Well Tolerated Well Tolerated Well 5. R scapula -Time 08:50 08:39 08:24 -Correct Patient Yes Yes Yes -Correct Side, Site, Position Yes Yes Yes -Correct Procedure Yes Yes Yes -Procedure Performed Yes Yes Yes -Type of Procedure Debridement Debridement Debridement -Clinical Debridement Subcutaneous Subcutaneous Subcutaneous -Post Debridement Size (cm) - Length 6.5 6.5 7.1 -Post Debridement Size (cm) - Width 2.3 2.2 2.2 -Post Debridement Size (cm) - Depth 0.3 0.3 0.2 -Total Square Cm 14.95 14.30 15.62 -Wound/Ulcer Outcome Not Healed Not Healed Not Healed -Ulcer Cleansing Rinsed/ Rinsed/ Rinsed/ Irrigated with Irrigated with Irrigated with Saline Saline Saline -Foul Odor after Cleansing No No No -Bioengineered Tissue No No No -Bleeding Controlled with Pressure Pressure Pressure -Offloading No No -Treatment Response Procedure Procedure Procedure Tolerated Well Tolerated Well Tolerated Well Pain Scale: 0-10 Numeric Is Patient Pain Free? Yes Yes Yes 07/08/19 08:33 Wound Center Nurse 2 #7 Right posterior flank -Time 08:34 -Correct Patient Yes -Correct Side, Site, Position Yes -Correct Procedure Yes -Procedure Performed Yes -Type of Procedure Debridement -Clinical Debridement Subcutaneous -Post Debridement Size (cm) - Length 0.5 -Post Debridement Size (cm) - Width 0.5 -Post Debridement Size (cm) - Depth 0.2 -Total Square Cm 0.25 -Wound/Ulcer Outcome Not Healed -Ulcer Cleansing Rinsed/ Irrigated with Saline -Foul Odor after Cleansing No -Bioengineered Tissue No -Bleeding Controlled with Pressure -Offloading No -Treatment Response Procedure Tolerated Well #6 Left lateral middle back -Time 08:34 -Correct Patient Yes -Correct Side, Site, Position Yes -Correct Procedure Yes -Procedure Performed Yes -Type of Procedure Debridement -Clinical Debridement Subcutaneous -Post Debridement Size (cm) - Length 7.5 -Post Debridement Size (cm) - Width 8.6 -Post Debridement Size (cm) - Depth 0.2 -Total Square Cm 64.50 -Wound/Ulcer Outcome Not Healed -Ulcer Cleansing Rinsed/ Irrigated with Saline -Foul Odor after Cleansing No -Bioengineered Tissue No -Bleeding Controlled with Pressure -Offloading No -Treatment Response Procedure Tolerated Well #5 Right lateral middle back -Time 08:34 -Correct Patient Yes -Correct Side, Site, Position Yes -Correct Procedure Yes -Procedure Performed Yes -Type of Procedure Debridement -Clinical Debridement Subcutaneous -Post Debridement Size (cm) - Length 6.1 -Post Debridement Size (cm) - Width 5 -Post Debridement Size (cm) - Depth 0.2 -Total Square Cm 30.5 -Wound/Ulcer Outcome Not Healed -Ulcer Cleansing Rinsed/ Irrigated with Saline -Foul Odor after Cleansing No -Bioengineered Tissue No -Bleeding Controlled with Pressure -Offloading No -Treatment Response Procedure Tolerated Well Pain Scale: 0-10 Numeric Is Patient Pain Free? Yes Wound debrided: #5 Right lateral middle back. Laterality: Right Wound Grade/Stage: 2. Type of Debridement: Excisional debridement Anesthesia Used: 4% Lidocaine Solution Depth: Down to and including healthy tissue, in the subcutaneous layer Percentage of wound debrided: 100 Instrument Used: 5mm curette Tissue Removed: subcutaneous tissue. Severity: Fat Layer Exposed Amount of bleeding with debridement: Mild Bleeding Controlled with: Pressure Patient tolerated procedure well - Additional Wound Wound debrided: #6 Left lateral middle back. Laterality: Left Wound Grade/Stage: 2. Type of Debridement: Excisional debridement Anesthesia Used: 4% Lidocaine Solution Depth: Down to and including healthy tissue, in the subcutaneous layer Percentage of wound debrided: 100 Instrument Used: 5mm curette Tissue Removed: subcutaneous tissue. Severity: Fat Layer Exposed Amount of bleeding with debridement: Mild Bleeding Controlled with: Pressure Patient tolerated procedure: Patient tolerated procedure well - Additional Wound Wound debrided: #7 Right posterior flank. Laterality: Right Wound Grade/Stage: 2. Type of Debridement: Excisional debridement Anesthesia Used: 4% Lidocaine Solution Depth: Down to and including healthy tissue, in the subcutaneous layer Percentage of wound debrided: 100 Instrument Used: 3mm curette Tissue Removed: subcutaneous tissue. Severity: Fat Layer Exposed Amount of bleeding with debridement: Mild Bleeding Controlled with: Pressure Patient tolerated procedure: Patient tolerated procedure well Assessment/Plan Active Problems (Last Reviewed 04/30/19 @ 09:[address] 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 Nonhealing diabetic ulcer right lateral middle back. 2. Nonhealing diabetic ulcer left lateral middle back. 3. Nonhealing diabetic ulcer right posterior flank. 4. Diabetes mellitus. 5. s/p surgical preparation right lateral middle back with excision nonhealing diabetic ulcer and reconstruction with STSG from right posterior flank (21 cm2) and placement AmnioFill Placental Connective Tissue Powder (250 mg) and placement TAYLOR NPWT and surgical preparation left lateral middle back with excision nonhealing diabetic ulcer and reconstruction with STSG from left posterior flank (48 cm2) and placement of AmnioFill Placental Connective Tissue Powder (500 mg) and placement of TAYLOR NPWT. 6. Mild compromised skin grafts. Plan: Amnio [place] advanced skin product was tried on both back ulcers, and he developed more areas of ulceration. Will have him wash daily with either chlorhexidine or Dial soap and then apply OTC antibiotic ointment (this is something the patient bought that is a collagen hydrogel with silver in it- he would like to try it). He completed the mupirocin ointment twice daily to nares to make sure he does not have any colonization of staph epi. He has finished the HBO. A wound culture was done on 05/27/19. It showed Staphylococcus epidermidis in both ulcers. He restarted his Doxycycline. Dr. Jerez did cultures on 06/18/19 when he saw him and they were negative for bacterial growth, but patient was still on Doxycycline when the cultures were obtained. Had a discussion with the patient about his persistent Staphylococcus in the ulcers despite multiple oral antibiotic treatments. He would benefit from IV antibiotics to see if that helps to jump start the healing process. In addition to the IV antibiotics, another operative debridement may be necessary in case any abnormal residual scar tissue is present that is hindering healing as well. He will think about that option and will let us know. This would necessitate admission to the hospital to get the IV antibiotics started. With persistent Staph, will start Vancomycin. In the meantime, continue the wound care and finish the Doxycycline. Prealbumin from 12/05/18 was 22.5. Encourage nutritional supplementation with protein to help the healing process. For his increasing pain with wound center debridements, will renew his Percocet for pain (28 tabs). Followup one week.
[2019-07-15 08:16] VITALS: BP 124/67; PULSE 78; RESP 18; TEMP 35.3; BMI 28.4
--- NOTE | 2019-07-15 09:10 | PCM.WC.PN ---
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 Current Visit: Yes Code(s): T86.821 - Skin graft (allograft) (autograft) failure (4) Dehiscence of external surgical wound Status: Chronic Current Visit: Yes Qualifiers: Encounter type: initial encounter Qualified Code(s): T81.31XA - Disruption of external operation (surgical) wound, not elsewhere classified, initial encounter Code(s): T81.31XA - Disruption of external operation (surgical) wound, not elsewhere classified, initial encounter (5) Type 2 diabetes mellitus Status: Chronic Current Visit: Yes Qualifiers: Code(s): E11.9 - Type 2 diabetes mellitus without complications Type of Wound Date of Service: 07/15/19 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: Nonhealing diabetic ulcers left lateral middle back and right lateral middle back with compromised skin grafts. History of Wound: Surgery 02/18/19 - 1. Surgical preparation right lateral middle back with excision nonhealing diabetic ulcer. 2. Reconstruction with STSG from right posterior flank (21 cm2) and placement AmnioFill Placental Connective Tissue Powder (250 mg) and placement TAYLOR NPWT. 3. Surgical preparation left lateral middle back with excision nonhealing diabetic ulcer. 4. Reconstruction with STSG from left posterior flank (48 cm2) and placement of AmnioFill Placental Connective Tissue Powder (500 mg) and placement of TAYLOR NPWT. Wound care - Stop the mupirocin ointment and start Silver dressing daily. Wound cultures from 05/27/19 showed Staphylococcus epidermidis in both ulcers. He was started on Doxycycline. While on Doxycycline, he had another wound culture done on 06/18/19 which was negative. He has had persistent cultures over the past year showing MRSE, Staphylococcus aureus, Methicillin resistant Staphylococcus haemolyticus, Staphylococcus lugdunensis, and Salma albicans. Prealbumin from 12/05/18 was 22.5. Encourage nutritonal supplementation with protein to help the healing process. He developed some compromise to the skin grafts on his back. He completed HBO treatments and has tolerated them. Today he denies fever. His appetite is good. Amnio [place] advanced skin product has been placed without improvement in the scattered ulcerations in the skin grafts. He is also developing increasing pain in the ulcerations making wound center debridements less than optimal. He has also noticed a small opening in the right posterior flank donor incision. Progress of Wound: The ulcer clusters have increased in size to the point that they are covering more area where the skin graft had been. He is also having increase in pain. - Physical Exam Vital Signs Temp Pulse Resp BP Pulse Ox 95.6 F L 78 18 124/67 H 97 07/15/19 08:16 07/15/19 08:16 07/15/19 08:16 07/15/19 08:16 06/16/19 00:30 General: Alert, Oriented x3, Cooperative HEENT: Atraumatic Oral: Moist Mucosa Lungs: Normal air movement Cardiovascular: Regular rate Extremities: Capillary Refill Less than 3 Seconds Skin: Ulcer/ Wound - Right middle lateral back ulcer, left middle lateral back ulcer cluster, right flank ulcer Wound Measurements and Assessment WC - Nurse 1 - General Ulcer Measurement Start: 06/18/19 08:04 Freq: Status: Active Protocol: Activity Type Activity Date Activity User E-Sign Co-Sign Detail Recorded Client Recorded Date Recorded By Document 07/15/19 08:16 DL [id number] 07/15/19 08:22 DL 07/15/19 08:16 Wound Center Nurse 1 [Ulcer Assessment] #7 R Lower Side -Combined with other wound No -Current Size (cm) - Length 0.8 -Current Size (cm) - Width 1.2 -Current Size (cm) - Depth 0.2 -Total Square Cm 0.96 -Photo Taken No -Tunneling No -Undermining/Tunneling No -Circular Undermining No -Exudate Amt Small -Exudate Type Serosanguineous -Wound Margin Thickened & Rolled Under -Granulation Amt Medium (34-66%) -Granulation Quality Red -Slough/Fibrin Yes -Necrosis Amt Medium (34-66%) -Necrotic Tissue Type Adherent Slough -Structure Exposed N/A -Texture (Mayra-wound Skin Appearance) Scarring -Moisture (Mayra-wound Skin Appearance Assessed ) -Color (Mayra-wound Skin Appearance) Assessed -Temperature (Mayra-wound Skin No Abnormality Appearance) (Pt Warm) -Tenderness on Palpation (Mayra-wound No Skin Appearance) -Ulcer Cleansing Wound Cleanser -Foul Odor after Cleansing No -Anesthetic Used 4% Lidocaine Solution,5% Lidocaine Gel 6. L lumbar back -Combined with other wound No -Current Size (cm) - Length 6 -Current Size (cm) - Width 10 -Current Size (cm) - Depth 0.2 -Total Square Cm 60 -Photo Taken No -Tunneling No -Undermining/Tunneling No -Circular Undermining No -Exudate Amt Small -Exudate Type Serosanguineous -Wound Margin Thickened & Rolled Under -Granulation Amt Medium (34-66%) -Granulation Quality Red -Slough/Fibrin Yes -Necrosis Amt Medium (34-66%) -Necrotic Tissue Type Adherent Slough -Structure Exposed N/A -Texture (Mayra-wound Skin Appearance) Scarring -Moisture (Mayra-wound Skin Appearance Assessed ) -Color (Mayra-wound Skin Appearance) Assessed -Temperature (Mayra-wound Skin No Abnormality Appearance) (Pt Warm) -Tenderness on Palpation (Mayra-wound No Skin Appearance) -Ulcer Cleansing Wound Cleanser -Foul Odor after Cleansing No -Anesthetic Used 4% Lidocaine Solution,5% Lidocaine Gel 5. R scapula -Combined with other wound No -Current Size (cm) - Length 2.8 -Current Size (cm) - Width 6.6 -Current Size (cm) - Depth 0.2 -Total Square Cm 18.48 -Photo Taken No -Tunneling No -Undermining/Tunneling No -Circular Undermining No -Exudate Amt Small -Exudate Type Serosanguineous -Wound Margin Thickened & Rolled Under -Granulation Amt Medium (34-66%) -Granulation Quality Red -Slough/Fibrin Yes -Necrosis Amt Medium (34-66%) -Necrotic Tissue Type Adherent Slough -Structure Exposed N/A -Texture (Mayra-wound Skin Appearance) Assessed, Scarring -Moisture (Mayra-wound Skin Appearance Assessed ) -Color (Mayra-wound Skin Appearance) Assessed -Temperature (Mayra-wound Skin No Abnormality Appearance) (Pt Warm) -Tenderness on Palpation (Mayra-wound No Skin Appearance) -Ulcer Cleansing Wound Cleanser -Foul Odor after Cleansing No -Anesthetic Used 4% Lidocaine Solution,5% Lidocaine Gel WC - Nurse 2 - General Ulcer CM Notes Start: 06/18/19 08:04 Freq: Status: Active Protocol: Activity Type Activity Date Activity User E-Sign Co-Sign Detail Recorded Client Recorded Date Recorded By Document 07/15/19 08:31 MW [id number] 07/15/19 08:40 MW 07/15/19 08:31 Wound Center Nurse 2 [Procedure/Treatment] #7 R Lower Side -Time 08:31 -Correct Patient Yes -Correct Side, Site, Position Yes -Correct Procedure Yes -Procedure Performed Yes -Type of Procedure Debridement -Clinical Debridement Subcutaneous -Post Debridement Size (cm) - Length 1.0 -Post Debridement Size (cm) - Width 1.5 -Post Debridement Size (cm) - Depth 0.3 -Total Square Cm 1.50 -Wound/Ulcer Outcome Not Healed -Ulcer Cleansing Rinsed/ Irrigated with Saline -Foul Odor after Cleansing No -Bioengineered Tissue No -Bleeding Controlled with Pressure -Offloading No -Treatment Response Procedure Tolerated Well 6. L lumbar back -Time 08:31 -Correct Patient Yes -Correct Side, Site, Position Yes -Correct Procedure Yes -Procedure Performed Yes -Type of Procedure Debridement -Clinical Debridement Subcutaneous -Post Debridement Size (cm) - Length 10.5 -Post Debridement Size (cm) - Width 4.5 -Post Debridement Size (cm) - Depth 0.3 -Total Square Cm 47.25 -Wound/Ulcer Outcome Not Healed -Ulcer Cleansing Rinsed/ Irrigated with Saline -Foul Odor after Cleansing No -Bioengineered Tissue No -Bleeding Controlled with Pressure -Offloading No -Treatment Response Procedure Tolerated Well 5. R scapula -Time 08:31 -Correct Patient Yes -Correct Side, Site, Position Yes -Correct Procedure Yes -Procedure Performed Yes -Type of Procedure Debridement -Clinical Debridement Subcutaneous -Post Debridement Size (cm) - Length 7.4 -Post Debridement Size (cm) - Width 3.0 -Post Debridement Size (cm) - Depth 0.3 -Total Square Cm 22.20 -Wound/Ulcer Outcome Not Healed -Ulcer Cleansing Rinsed/ Irrigated with Saline -Foul Odor after Cleansing No -Bioengineered Tissue No -Bleeding Controlled with Pressure -Offloading No -Treatment Response Procedure Tolerated Well [See Physician Procedure note for Specifics] Pain Scale: 0-10 Numeric [Pain] -Is Patient Pain Free? Yes Musculoskeletal: No Tenderness to Palpation of Joints or Extremities Neurological: Neuro grossly intact Psych/Mental Status: Normal Affect, Appropriate Debridement Note Post-Debridement Measurements/Treatment WC - Nurse 2 - General Ulcer CM Notes Start: 06/18/19 08:04 Freq: Status: Active Protocol: Activity Type Activity Date Activity User E-Sign Co-Sign Detail Recorded Client Recorded Date Recorded By Document 06/18/19 08:43 DV [id number] 06/18/19 08:54 DV Document 06/24/19 08:34 JF [id number] 06/24/19 08:47 JF Document 07/01/19 08:23 JF [id number] 07/01/19 08:31 JF Document 07/08/19 08:33 JF [id number] 07/08/19 08:35 JF Document 07/15/19 08:31 MW [id number] 07/15/19 08:40 MW 06/18/19 06/24/19 07/01/19 08:43 08:34 08:23 Wound Center Nurse 2 #7 R Lower Side -Time 08:47 08:36 08:23 -Correct Patient Yes Yes Yes -Correct Side, Site, Position Yes Yes Yes -Correct Procedure Yes Yes Yes -Procedure Performed Yes Yes Yes -Type of Procedure Debridement Debridement Debridement -Clinical Debridement Subcutaneous Subcutaneous Subcutaneous -Post Debridement Size (cm) - Length 0.3 0.3 0.5 -Post Debridement Size (cm) - Width 0.9 1.0 1.2 -Post Debridement Size (cm) - Depth 0.4 0.2 0.2 -Total Square Cm 0.27 0.30 0.60 -Wound/Ulcer Outcome Not Healed Not Healed Not Healed -Ulcer Cleansing Rinsed/ Rinsed/ Rinsed/ Irrigated with Irrigated with Irrigated with Saline Saline Saline -Foul Odor after Cleansing No No No -Bioengineered Tissue No No No -Bleeding Controlled with Pressure Pressure Pressure -Offloading No No No -Treatment Response Procedure Procedure Procedure Tolerated Well Tolerated Well Tolerated Well 6. L lumbar back -Time 08:49 08:36 08:23 -Correct Patient Yes Yes Yes -Correct Side, Site, Position Yes Yes Yes -Correct Procedure Yes Yes Yes -Procedure Performed Yes Yes Yes -Type of Procedure Debridement Debridement Debridement -Clinical Debridement Subcutaneous Subcutaneous Subcutaneous -Post Debridement Size (cm) - Length 10.0 9.9 10.2 -Post Debridement Size (cm) - Width 4.4 5.5 5.2 -Post Debridement Size (cm) - Depth 0.3 0.3 0.2 -Total Square Cm 44.00 54.45 53.04 -Wound/Ulcer Outcome Not Healed Not Healed Not Healed -Ulcer Cleansing Rinsed/ Rinsed/ Rinsed/ Irrigated with Irrigated with Irrigated with Saline Saline Saline -Foul Odor after Cleansing No No No -Bioengineered Tissue No No No -Bleeding Controlled with Pressure Pressure Pressure -Offloading No No No -Treatment Response Procedure Procedure Procedure Tolerated Well Tolerated Well Tolerated Well 5. R scapula -Time 08:50 08:39 08:24 -Correct Patient Yes Yes Yes -Correct Side, Site, Position Yes Yes Yes -Correct Procedure Yes Yes Yes -Procedure Performed Yes Yes Yes -Type of Procedure Debridement Debridement Debridement -Clinical Debridement Subcutaneous Subcutaneous Subcutaneous -Post Debridement Size (cm) - Length 6.5 6.5 7.1 -Post Debridement Size (cm) - Width 2.3 2.2 2.2 -Post Debridement Size (cm) - Depth 0.3 0.3 0.2 -Total Square Cm 14.95 14.30 15.62 -Wound/Ulcer Outcome Not Healed Not Healed Not Healed -Ulcer Cleansing Rinsed/ Rinsed/ Rinsed/ Irrigated with Irrigated with Irrigated with Saline Saline Saline -Foul Odor after Cleansing No No No -Bioengineered Tissue No No No -Bleeding Controlled with Pressure Pressure Pressure -Offloading No No -Treatment Response Procedure Procedure Procedure Tolerated Well Tolerated Well Tolerated Well Pain Scale: 0-10 Numeric Is Patient Pain Free? Yes Yes Yes 07/08/19 07/15/19 08:33 08:31 Wound Center Nurse 2 #7 R Lower Side -Time 08:34 08:31 -Correct Patient Yes Yes -Correct Side, Site, Position Yes Yes -Correct Procedure Yes Yes -Procedure Performed Yes Yes -Type of Procedure Debridement Debridement -Clinical Debridement Subcutaneous Subcutaneous -Post Debridement Size (cm) - Length 0.5 1.0 -Post Debridement Size (cm) - Width 0.5 1.5 -Post Debridement Size (cm) - Depth 0.2 0.3 -Total Square Cm 0.25 1.50 -Wound/Ulcer Outcome Not Healed Not Healed -Ulcer Cleansing Rinsed/ Rinsed/ Irrigated with Irrigated with Saline Saline -Foul Odor after Cleansing No No -Bioengineered Tissue No No -Bleeding Controlled with Pressure Pressure -Offloading No No -Treatment Response Procedure Procedure Tolerated Well Tolerated Well 6. L lumbar back -Time 08:34 08:31 -Correct Patient Yes Yes -Correct Side, Site, Position Yes Yes -Correct Procedure Yes Yes -Procedure Performed Yes Yes -Type of Procedure Debridement Debridement -Clinical Debridement Subcutaneous Subcutaneous -Post Debridement Size (cm) - Length 7.5 10.5 -Post Debridement Size (cm) - Width 8.6 4.5 -Post Debridement Size (cm) - Depth 0.2 0.3 -Total Square Cm 64.50 47.25 -Wound/Ulcer Outcome Not Healed Not Healed -Ulcer Cleansing Rinsed/ Rinsed/ Irrigated with Irrigated with Saline Saline -Foul Odor after Cleansing No No -Bioengineered Tissue No No -Bleeding Controlled with Pressure Pressure -Offloading No No -Treatment Response Procedure Procedure Tolerated Well Tolerated Well 5. R scapula -Time 08:34 08:31 -Correct Patient Yes Yes -Correct Side, Site, Position Yes Yes -Correct Procedure Yes Yes -Procedure Performed Yes Yes -Type of Procedure Debridement Debridement -Clinical Debridement Subcutaneous Subcutaneous -Post Debridement Size (cm) - Length 6.1 7.4 -Post Debridement Size (cm) - Width 5 3.0 -Post Debridement Size (cm) - Depth 0.2 0.3 -Total Square Cm 30.5 22.20 -Wound/Ulcer Outcome Not Healed Not Healed -Ulcer Cleansing Rinsed/ Rinsed/ Irrigated with Irrigated with Saline Saline -Foul Odor after Cleansing No No -Bioengineered Tissue No No -Bleeding Controlled with Pressure Pressure -Offloading No No -Treatment Response Procedure Procedure Tolerated Well Tolerated Well Pain Scale: 0-10 Numeric Is Patient Pain Free? Yes Yes Wound debrided: Middle lateral back ulcer Laterality: Left Type of Debridement: Excisional debridement Anesthesia Used: 5% Lidocaine Gel Depth: Down to and including healthy tissue, in the subcutaneous layer Percentage of wound debrided: 100 Instrument Used: 5mm curette Tissue Removed: Subcutaneous tissue and slough Severity: Fat Layer Exposed Amount of bleeding with debridement: Mild Bleeding Controlled with: Pressure Patient did not tolerate procedure well - Additional Wound Wound debrided: Middle lateral back Laterality: Right Type of Debridement: Excisional debridement Anesthesia Used: 5% Lidocaine Gel Depth: Down to and including healthy tissue, in the subcutaneous layer Percentage of wound debrided: 100 Instrument Used: 5mm curette Tissue Removed: Subcutaneous tissue and slough Severity: Fat Layer Exposed Amount of bleeding with debridement: Mild Bleeding Controlled with: Pressure, Compression and gauze Patient tolerated procedure: Patient tolerated procedure well, Patient did not tolerate procedure well - Additional Wound Wound debrided: Flank ulcer Laterality: Right Type of Debridement: Excisional debridement Anesthesia Used: 5% Lidocaine Gel Depth: Down to and including healthy tissue, in the subcutaneous layer Percentage of wound debrided: 100 Instrument Used: 3mm curette Tissue Removed: Subcutaneous tissue and slough Severity: Fat Layer Exposed Amount of bleeding with debridement: Mild Bleeding Controlled with: Pressure Patient tolerated procedure: Patient tolerated procedure well Assessment/Plan Active Problems (Last Reviewed 04/30/19 @ 09:[address] 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 Nonhealing diabetic ulcer right lateral middle back. 2. Nonhealing diabetic ulcer left lateral middle back. 3. Nonhealing diabetic ulcer right posterior flank. 4. Diabetes mellitus. 5. s/p surgical preparation right lateral middle back with excision nonhealing diabetic ulcer and reconstruction with STSG from right posterior flank (21 cm2) and placement AmnioFill Placental Connective Tissue Powder (250 mg) and placement TAYLOR NPWT and surgical preparation left lateral middle back with excision nonhealing diabetic ulcer and reconstruction with STSG from left posterior flank (48 cm2) and placement of AmnioFill Placental Connective Tissue Powder (500 mg) and placement of TAYLOR NPWT. 6. Mild compromised skin grafts. Plan: Amnio [place] advanced skin product was tried on both back ulcers, and he developed more areas of ulceration. He washes daily with either chlorhexidine or Dial soap and will have him start daily Silver dressing changes due to the significant amount of enlargement of his ulcers. He is having increased amount of pain, especially with debridement. He had a difficult time with the debridement today due to the increased pain. He has finished the HBO. A wound culture was done on 05/27/19. It showed Staphylococcus epidermidis in both ulcers. He restarted his Doxycycline. Dr. Jerez did cultures on 06/18/19 when he saw him and they were negative for bacterial growth, but patient was still on Doxycycline when the cultures were obtained. Had a discussion with the patient about his persistent Staphylococcus in the ulcers despite multiple oral antibiotic treatments. He would benefit from IV antibiotics to see if that helps to jump start the healing process. In addition to the IV antibiotics, another operative debridement may be necessary in case any abnormal residual scar tissue is present that is hindering healing as well. He will think about that option and will let us know. This would necessitate admission to the hospital to get the IV antibiotics started. With persistent Staph, will start Vancomycin. In the meantime, continue the wound care and finish the Doxycycline. Prealbumin from 12/05/18 was 22.5. Encourage nutritional supplementation with protein to help the healing process. Followup one week. [id number]: [id number] Pooja subq tissue 20 sq cm/< Add On Codes: [id number] Pooja subq tissue add-on - x3
== END 2019-07-16 23:59 ==
LOC: WC 08:00
PROVIDERS: Family Provider Family Medicine; PCP Family Medicine; Visit Provider Nurse Practitioner Family
DX: E11.622 Type 2 diabetes mellitus with other skin ulcer (principal); T86.821 Skin graft (allograft) (autograft) failure; Y83.2 Surgical operation with anastomosis, bypass or graft as the cause of abnormal reaction of the patient, or of later complication, without mention of misadventure at the time of the procedure; L98.422 Non-pressure chronic ulcer of back with fat layer exposed; G47.33 Obstructive sleep apnea (adult) (pediatric); T81.31XA Disruption of external operation (surgical) wound, not elsewhere classified, initial encounter; E11.22 Type 2 diabetes mellitus with diabetic chronic kidney disease; N18.1 Chronic kidney disease, stage 1; I12.9 Hypertensive chronic kidney disease with stage 1 through stage 4 chronic kidney disease, or unspecified chronic kidney disease; Z79.899 Other long term (current) drug therapy; L98.421 Non-pressure chronic ulcer of back limited to breakdown of skin
CPT/HCPCS: 11042; 11045; 87070; 87075; 87205; 87640

== ENCOUNTER 2019-07-22 16:34 | Inpatient (IN) | payer OTHER, SELFPAY ==
[2019-07-22 15:00] VITALS: BMI 28.4
[2019-07-22 16:01] VITALS: BMI 28.2
[2019-07-22 16:17] VITALS: BMI 28.2
[2019-07-22 16:29] VITALS: BP 100/70; PULSE 77; RESP 14; TEMP 37.1; O2SAT 97
[2019-07-22 18:29] LABS: Hematocrit 38.1 % (40-54); Hemoglobin 12.3 g/dL (13.0-16.5); Mean Corp Hgb Conc 32.3 g/dL (32-36); Mean Corpuscular Hgb 29.5 pg (27.0-32.0); Mean Corpuscular Volume 91.4 fL (80-94); Mean Platelet Vol. 9.2 fl (6.2-12.0); Platelet Count 284 K/mm3 (150-450); RBC Distribution Width CV 12.8 % (11.6-14.6); RBC Distribution Width SD 42.5 fl (35.1-43.9); Red Blood Count 4.17 M/mm3 (4.6-6.2); White Blood Count 6.1 K/mm3 (4.4-11.0)
[2019-07-22 18:36] LABS: Erythrocyte Sedimentation Rate 35 mm/hr (0-20)
[2019-07-22 19:02] LABS: ALB/GLOB Ratio 0.9 RATIO (0.9-2.4); AST(SGOT) 19 U/L (15-37); Alanine Aminotransfer ALT/SGPT 28 U/L (16-61); Albumin, Serum 3.6 g/dL (3.2-5.0); Alkaline Phosphatase 37 U/L (45-117); Anion Gap 6 (5-15); BUN 26 mg/dL (7-18); BUN/Creat Ratio 21.8 RATIO (10-20); Chloride 103 mmol/L (98-107); Creatinine, Serum 1.19 mg/dL (0.70-1.30); EST Glomerular Filtration Rate 66 mL/min (>60); Est Glom Filt Rate - Afr Amer 80 mL/min (>60); Estimated Creatinine Clearance 72.46 ml/min; Globulin 3.8 g/dL (2.2-4.2); Glucose 131 mg/dL (74-106); Potassium 3.9 mmol/L (3.5-5.1); Prealbumin 18.7 mg/dL (20.0-40.0); Protein, Total 7.4 g/dL (6.4-8.2); Sodium Level 138 mmol/L (136-145)
[2019-07-22 19:05] LABS: Hemoglobin A1c 5.9 % (4.2-6.3)
[2019-07-22] MEDS: Lactated Ringers 1,000 ML 60 ML IV (21:02)
[2019-07-22] MEDS: HYDROmorphone 0.5 MG/0.5 ML SYRINGE IV (21:04)
[2019-07-22] MEDS: 0.9% Saline Lock 10 ML Syringe IV ×2 (21:04→21:09)
[2019-07-22 21:30] VITALS: BP 126/70; PULSE 83; RESP 18; TEMP 36.8; O2SAT 94
[2019-07-22] MEDS: Docusate Sodium 100 MG Capsule PO (21:39)
--- NOTE | 2019-07-22 22:12 | PCM.RX.CS ---
Consult Pharmacy has been consulted to manage selected antiobiotic: Vancomycin Type of Consult: New start Suspected Infection: Skin/Soft tissue Prior Doses of Antibiotics Received/Current Regimen: Medications Vancomycin HCl (Vancomycin) 1,000 mg in 200 mls @ 200 mls/hr IV Q12H DIAMOND Discontinued Medications Vancomycin HCl 1,500 mg/ (Sodium Chloride) 530 mls @ 250 mls/hr IV X1 ONE Stop: 07/22/19 19:37 Last Admin: 07/22/19 21:03 Dose: 250 mls/hr Labs: Sodium 138 mmol/L (136-145) 07/22/19 18:10 Potassium 3.9 mmol/L (3.5-5.1) 07/22/19 18:10 Chloride 103 mmol/L (98-107) 07/22/19 18:10 Carbon Dioxide 29.0 mmol/L (21.0-32.0) 07/22/19 18:10 Anion Gap 6 (5-15) 07/22/19 18:10 BUN 26 mg/dL (7-18) H 07/22/19 18:10 Creatinine 1.19 mg/dL (0.70-1.30) 07/22/19 18:10 Est GFR (MDRD) Af Amer 80 mL/min (>60) 07/22/19 18:10 Est GFR (MDRD) Non-Af 66 mL/min (>60) 07/22/19 18:10 BUN/Creatinine Ratio 21.8 RATIO (10-20) H 07/22/19 18:10 Glucose 131 mg/dL (74-106) H 07/22/19 18:10 Weight used for dosin.4 kg Estimated Creatinine Clearance: 72 Goal Trough: 10-15 mcg/mL Pharmacy Plan for Drug Dosing: Pharmacy Service will continue to monitor and adjust dosing as required. Follow-Up Labs: Trough Vancomycin Labs to be done on [date and time ordered]: 07/24/19 @0830
[2019-07-22] MEDS: oxyCODONE 5 MG Tablet 10 MG PO (23:11)
[2019-07-22 23:25] LABS: M R Staph aureus DNA By PCR Negative (Negative); Probe Check PASS; Specimen Processing Control PASS; Staph aureus DNA By PCR NEGATIVE (Negative)
--- NOTE | 2019-07-22 23:25 | PCM.HP.BLA ---
History and Physical Date of Admission: 07/22/19 HISTORY OF PRESENT ILLNESS 59 year old man presented to the Wound Center today with increasing pain and redness and swelling and drainage from his nonhealing infected diabetic ulcers right lateral middle back and left lateral middle back. These ulcers started a year ago and multiple attempts at wound closure were done with skin flaps and skin grafts. The wound cultures have shown resistant Staphylococcus and Salma albicans. He has been treated with multiple oral antibiotics over this time frame. He had some compromise to the skin graft and needed HBO treatments. The skin graft was salvaged. Recently he started developing increasing pain and redness and swelling and drainage with near total breakdown of the skin grafts. He denies fever at this time. The patient has a history of diabetes , and I am concerned that he has an underlying necrotizing process because of the recent destruction of the skin graft tissue. He had been on Doxycycline recently and has failed outpatient therapy. He is being admitted for IV antibiotics and more aggressive wound care with Silver dressing changes daily. PAST MEDICAL HISTORY Nonhealing ulcers right lateral middle back and left lateral middle back Diabetes mellitus Trigger finger, left ring finger Hypertension Neuroma PAST SURGICAL HISTORY surgical preparation right lateral middle back with excision 1.2 cm nonhealing diabetic ulcer and rhomboid transposition skin flap reconstruction (18 cm2) and surgical preparation left lateral middle back with excision 3 cm nonhealing diabetic ulcer and rhomboid transposition skin flap reconstruction (50 cm2) - 06/12/18 surgical preparation left lateral middle back with excisional debridement nonhealing diabetic ulcer and reconstruction with placement of Thera-skin allograft (56 cm2) and AmnioFill Placental Connective Tissue Powder (500 mg) and placement of TAYLOR NPWT and surgical preparation right lateral middle back with excisional debridement nonhealing diabetic ulcer and reconstruction with placement of Thera-skin allograft (15 cm2) and AmnioFill Placental Connective Tissue Powder (250 mg) and placement of TAYLOR NPWT - 12/25/18 1. Surgical preparation right lateral middle back with excision nonhealing diabetic ulcer. 2. Reconstruction with STSG from right posterior flank (21 cm2) and placement AmnioFill Placental Connective Tissue Powder (250 mg) and placement TAYLOR NPWT. 3. Surgical preparation left lateral middle back with excision nonhealing diabetic ulcer. 4. Reconstruction with STSG from left posterior flank (48 cm2) and placement of AmnioFill Placental Connective Tissue Powder (500 mg) and placement of TAYLOR NPWT - 02/18/19 ALLERGIES No Known Allergies MEDICATIONS Albuterol. Diclofenac. Doxycycline. Acidophilus. FAMILY HISTORY Grandfather - Cancer Father - Prostate cancer Grandfather - CVA (cerebral vascular accident) SOCIAL HISTORY Smoking Status: Never smoker REVIEW OF SYSTEMS Constitutional: Denies: Chills, Fever, Weight Change. Eyes: Denies: Pain, Vision Change. HEENT: Denies: Difficulty Hearing, Difficulty Swallowing, Sinus Congestion. Cardiovascular: Denies: Chest Pain, Palpitations. Respiratory: Denies: Cough, Shortness of Breath. Gastrointestinal: Denies: Diarrhea, Nausea, Vomiting. Genitourinary: Denies: Dysuria, Hematuria. Skin: Reports: Wounds - See HPI. Endocrine: Denies: Heat/ Cold Intolerance, Polydipsia, Polyuria. Hematologic/ Lymphatic: Denies: Easy Bruising, Easy Bleeding PHYSICAL EXAMINATION General: Alert, Oriented x3 HEENT: PERRLA, EOMI Oral: Moist Mucosa Neck: Supple Lungs: Clear to auscultation Cardiovascular: Regular rate, Regular Rhythm Abdomen: Soft, Non-Distended Extremities: No clubbing, No cyanosis, No edema Skin: Ulcer/ Wound - There are nonhealing diabetic ulcers right lateral middle back and left lateral middle back. Tissue destruction is noted, worse on the left. There is redness. Some drainage noted. Increased tenderness with palpation, much worse than last month. It has been difficult wearing a shirt secondary to the pain. The ulcer on the left lateral middle back measures worse at 10 x 7 cm. The ulcer on the right lateral middle back measures worse at 6 x 6 cm. Lymphatic: - - no axillary adenopathy. Neurological: Cranial nerves II-XII grossly intact Psych/Mental Status: Normal Affect, Appropriate ASSESSMENT 1. Worsening nonhealing infected diabetic ulcer right lateral middle back. 2. Worsening nonhealing infected diabetic ulcer left lateral middle back. 3. Diabetes mellitus. PLAN He had been on Doxycycline antibiotics, and the ulcers worsened with increasing pain and redness and swelling and drainage suggestive of a necrotizing process. He has failed outpatient therapy and admission to the hospital was recommended to start IV antibiotics with Vancomycin and Diflucan because of previous cultures showing resistant Staph and Salma albicans. Will have PICC line placed. Will also be more aggressive with wound care by starting Silver dressing changes daily. Will check a HgbA1c. I anticipate increased metabolic demands with the worsening infected ulcers. Will check a Prealbumin and encourage nutritional supplementation with protein to help the healing process. I am concerned that because of his diabetes, if more aggressive treatment is not done, a more systemic infection may develop which can be life threatening. If the diabetic ulcers continue to deteriorate with tissue destruction despite IV antibiotics, will need urgent operative debridement. After discharge, will followup at the Wound Center.
[2019-07-23] VITALS (13 sets, daily range): BP systolic 99–139; BP diastolic 58–73; PULSE 64–105; RESP 16–18; TEMP 36.3–37.2; O2SAT 93–99; BMI 28.2
[2019-07-23] MEDS: oxyCODONE 5 MG Tablet 10 MG PO ×3 (03:37→23:01)
--- NOTE | 2019-07-23 09:15 | NURSING ---
Discussed patient with Dr Lemus. Dr Lemus had been in to see patient and plans to take pt to surgery later today. possible need for wound VAC post op. will leave dressings in place since pt is going to surgery later today. pt sitting up in chair at this time. does not appear to be painful at this time.
[2019-07-23] MEDS: Vancomycin IV 1,000 MG/200 ML BAG 200 MG IV ×2 (09:44→20:21)
--- NOTE | 2019-07-23 10:33 | PN.SURG_ITS ---
Subjective: Patient has more pain in his back ulcers. - Physical Exam Vitals/I&O's: Vital Signs Temp Pulse Resp BP Pulse Ox 97.4 F L 64 16 105/60 97 07/23/19 08:50 07/23/19 08:56 07/23/19 08:50 07/23/19 08:50 07/23/19 08:50 Oxygen Delivery Method Room Air Weight: 208 lb 1.862 oz Body Mass Index (BMI) 28.2 Finger Stick Blood Glucose 134 Intake and Output for Last 24 Hours 07/21/19 07/22/19 07/23/19 23:59 23:59 23:59 Intake Total 1710 / 1710 1262 / 1262 Balance 1710 / 1710 1262 / 1262 General: Alert, Oriented x3 HEENT: PERRLA, EOMI Oral: Moist Mucosa Neck: Supple Lungs: Clear to auscultation Cardiovascular: Regular rate, Regular Rhythm Abdomen: Soft, Non-Distended Skin: Ulcer/ Wound - more tenderness is noted in the back ulcers. More drainage is noted. Abnormal granulation tissue present with some fluctuance. Neurological: Cranial nerves II-XII grossly intact Psych/Mental Status: Normal Affect, Appropriate Laboratory Results 07/22/19 18:10: WBC 6.1, RBC 4.17 L, Hgb 12.3 L, Hct 38.1 L, MCV 91.4, MCH 29.5, MCHC 32.3, RDW Std Deviation 42.5, RDW Coeff of Bernardino 12.8, Plt Count 284, MPV 9.2, ESR 35 H 07/22/19 18:10: Sodium 138, Potassium 3.9, Chloride 103, Carbon Dioxide 29.0, Anion Gap 6, BUN 26 H, Creatinine 1.19, Estim Creat Clear Calc 72.46, Est GFR (MDRD) Af Amer 80, Est GFR (MDRD) Non-Af 66, BUN/Creatinine Ratio 21.8 H, Glucose 131 H, Calcium 9.0, Total Bilirubin 0.30, AST 19, ALT 28, Alkaline Phosphatase 37 L, C-React Prot Ext Range 34.90 H, Total Protein 7.4, Albumin 3.6, Globulin 3.8, Albumin/Globulin Ratio 0.9, Prealbumin 18.7 L 07/22/19 18:10: Hemoglobin A1c 5.9 07/22/19 21:25: S.aureus Protein A PCR NEGATIVE, MRSA (PCR) Negative 07/22/19 21:25: S.aureus Protein A PCR NEGATIVE, MRSA (PCR) Negative Current Medications Albuterol Sulfate (Ventolin Aerosols) 2.5 mg INHALATION Q6H PRN PRN Reason: SOB &/OR WHEEZING Docusate Sodium (Colace) 100 mg PO BID [facility] Last Admin: 07/23/19 09:18 Dose: Not Given Documented by: Heparin Sodium (Beef Lung) () 50 units IV UD PRN PRN Reason: PICC Line Heparin Flush Hydromorphone HCl (Dilaudid Inj) 0.5 mg IV Q8H PRN PRN PRN Reason: Pain Score 6-10/10 Last Admin: 07/22/19 21:04 Dose: 0.5 mg Documented by: Lactated Ringer's () 1,000 mls @ 60 mls/hr IV .[id number] [facility] Last Infusion: 07/23/19 09:44 Dose: 0 mls/hr Documented by: Vancomycin IV Pharmacy to Dose (1 ea/ Sodium Chloride) 500 mls @ 250 mls/hr IV PRN PRN; Protocol PRN Reason: Rx to Dose Vancomycin HCl (Vancomycin) 1,000 mg in 200 mls @ 200 mls/hr IV Q12H [facility] Last Admin: 07/23/19 09:44 Dose: 200 mls/hr Documented by: Lisinopril (Zestril) 5 mg PO DAILY [facility] Last Admin: 07/23/19 09:18 Dose: Not Given Documented by: Non-Formulary Medication (Diclofenac Sodium) 2 g TOPICAL DAILY PRN PRN PRN Reason: Pain Score 1-10/10 Nutritional [facility] Last Admin: 07/23/19 09:17 Dose: Not Given Documented by: Ondansetron HCl (Zofran) 4 mg IV Q6H PRN PRN PRN Reason: NAUSEA Oxycodone HCl (Oxyir) 10 mg PO Q4H PRN PRN PRN Reason: Pain Score 6-10/10 Last Admin: 07/23/19 03:37 Dose: 10 mg Documented by: Promethazine HCl (Phenergan Tablet) 25 mg PO Q4H PRN PRN PRN Reason: NAUSEA/VOMITING Sodium Chloride () 10 - 40 ml IV UD PRN PRN Reason: Open End PICC Flush Last Admin: 07/22/19 21:09 Dose: 10 ml Documented by: Sodium Chloride (0.9% Nacl (Sterile) Posiflush) 10 - 40 ml IV UD PRN PRN Reason: Port access or dressing change Sodium Chloride () 10 - 40 ml IV UD PRN PRN Reason: SALINE FLUSH Medical Necessity - Tobacco Use Smoking Status: Never smoker Tobacco Use: Non-smoker Assessment/Plan All Active Problems (Last Reviewed 04/30/19 @ 09:[address] Ryan Gandhi, DO) Bone fracture (Resolved) History of bleeding ulcers (Resolved) Sebaceous cyst (Acute) Screening for intestinal cancer (Acute) 1. Worsening nonhealing infected diabetic ulcer right lateral middle back. 2. Worsening nonhealing infected diabetic ulcer left lateral middle back. 3. Diabetes mellitus. Continue Vancomycin and Diflucan because of previous cultures showing resistant Staph and Slama albicans. PICC line has been placed. Continue Silver dressing changes. HgbA1c was 5.9. I anticipate increased metabolic demands with the worsening infected ulcers. Prealbumin was 18.7. Encourage nutritional supplementation with protein to help the healing process. The diabetic ulcers continue to deteriorate with tissue destruction despite IV antibiotics. Will proceed with urgent operative debridement today. Postop will begin wound care with the VAC. Patient was informed of the risks and complications of the procedure including alternatives to surgery. These were discussed with the patient personally. Patient voices understanding and wishes to proceed. Essential Procedure Criteria Procedure Essential: Yes Criteria Note: On 07/02/2019 the [place] Department of Health ([facility]) Public Order signed by [facility] Director Jory Collins M.D., regarding the Management of Non- Essential Surgeries and Procedures for the purpose of preserving Personal Protective Equipment (PPE) and critical hospital capacity and resources within [place] went into effect as of 07/03/2019 at 5:00PM. According to the [facility] Public Order: This action will remain in full force and effect until the State of Emergency declared by the Governor no longer exists or the Director of the [facility] rescinds or modifies this Order.. This [facility] order stated all non-essential or elective surgeries and procedures that utilize PPE should be delayed unless there is undue risk to the current or future health of a patient. After reviewing the aforementioned [facility] Public Order and the patients clinical case, I have determined that the scheduled procedure meets the criteria to go forward. Risk to Patient if Procedure Delayed: Risk of rapidly worsening to severe symptoms - worsening painful infected diabetic ulcers
[2019-07-23] MEDS: HYDROmorphone 0.5 MG/0.5 ML SYRINGE IV (10:55)
[2019-07-23] MEDS: 0.9% Saline Lock 10 ML Syringe IV ×2 (10:56→16:13)
--- NOTE | 2019-07-23 11:03 | CASEMGMT ---
ARIAS DE LEON Face to Face with patient for initial transition planning/care coordination assessment. ARIAS DE LEON introduced self and role at [facility]. Patient lying in bed, alert and oriented. Patient willing to participate in assessment and is able to answer all questions appropriately. Care providers, pharmacy, and demographics verified. Patient wishes to discharge home and will need HHC and IV ATBs at discharge. ARIAS DE LEON reviewed companies and patient would like [facility] HHC and [facility]. Patient states he has no further needs or concerns at this time. CM to follow for discharge planning needs that may arise. PCP: Hiram Specialists: Mariah Fong Pharmacy: [facility] Insurance: Prescription Benefit: yes Living Will/HPOA: yes, Hna Amezquita LNOK: , who is teachable Living Arrangements: Patient lives with in 2 story home with bed and bath on first floor. Patient states he is independent at home. Transportation: self/ DME/HHC: Patient states he has raised toilet and bipap at home. No HHC previously. Patient would like [facility] HHC and [facility]. ARIAS DE LEON sent referrals and awaiting call back. Disposition Plan: Patient to discharge home with HHC, family support, and follow-up plans in place. Mel LOWE, RN, CM
[2019-07-23] MEDS: Lactated Ringers 1,000 ML 100 ML IV ×2 (12:40→14:57)
--- NOTE | 2019-07-23 13:00 | UL_PTH ---
PATIENT: BILL JACQUES LOC: [facility] U#:[id number] AGE/SX: 59/M ROOM: [facility] RE07/22/[address]: Dr. David Lemus MD : 1960 BED: 1 DIS: 07/24/2019 SPEC #: [id number] RECD: 07/23/19 14:35 STATUS: SOUDarío REQ #: [id number] DELMY: 07/23/19 13:[address]: David Lemus DEPT: SURGICAL PATHOLOGY RECD BY: Remington Reynolds ENTERED: 07/24/19 09:30 SP TYPE: ULCER OTHR DR: Dr. Ryan Gandhi, DO Tissues: A - Back, NOS B - Back, NOS Procedures: Special Stain Group I Surgery Specimen Level III AFB Stain (control) GMS Stain (control) HEADER OPERATION: Surgical preparation right lateral middle back and left lateral middle back PRE-OP DIAGNOSIS: Worsening nonhealing infected diabetic ulcer right and left lateral middle back TISSUE SUBMITTED: A - Diabetic ulcer right lateral middle back, B - Diabetic ulcer left lateral middle back MICROSCOPIC DIAGNOSIS A. Diabetic ulcer right lateral middle back: Focal ulceration, associated acute and chronic inflammation, granulation tissue reaction, abscess formation and focal foreign body giant cell reaction. Special stains for acid fast bacilli and fungi are negative for organisms; matched controls are appropriate. B. Diabetic ulcer left lateral middle back: Focal ulceration, associated acute and chronic inflammation, granulation tissue reaction, abscess formation and focal foreign body giant cell reaction. Special stains for acid fast bacilli and fungi are negative for organisms; matched controls are appropriate. SJ:js 07/25/19 MICROSCOPIC DESCRIPTION Slides are reviewed. GROSS DESCRIPTION A - Received in fixative is one container labeled with the patient's name and designated diabetic ulcer right lateral middle back. The specimen consists of an irregular piece of sharma-white skin with underlying tissue measuring 7.5 x 3.5 cm and up to 1.5 cm in thickness. Two areas of ulceration are noted on the skin surface measuring 2 and 3 cm in greatest dimension. Sections do not reveal any mass lesion. Personnel Security Specialist sections are submitted in two cassettes. B - Received in fixative is one container labeled with the patient's name and designated diabetic ulcer left lateral middle back. The specimen consists of a piece of sharma-white skin with underlying tissue measuring 9 x 6 cm and up to 2 cm in thickness. The skin surface shows an extensive area of ulceration with the largest measuring 3.5 cm in greatest dimension. Sections do not reveal any mass lesion. Personnel Security Specialist sections are submitted in two cassettes. / SJ:js 07/24/19 TC:2 CPT: 75703 x2, 30498 x4
[2019-07-23 13:05] LABS: Bedside Glucose 103 mg/dL (70-110)
--- NOTE | 2019-07-23 13:30 | CASEMGMT ---
Call from Tayler at [employer] and she states that pt still has about $1000 left on deductible and then it will be paid at 100%. She states that pt's cost/day will be about $18.84. Tayler's contact info is [phone]. Pt is just went down for surgery so this RN CM will inform him tomorrow am. Pt has been set up with [facility] per preference for SN at this time and Lili at [facility] is aware that pt most likely will be discharged tomorrow per Dr. Lemus, voices understanding. SStaten RN CM
--- NOTE | 2019-07-23 14:33 | PCM.OPRPT ---
Report of Operation Date of Procedure: 07/23/19 Pre-Operative Diagnosis: 1. Worsening nonhealing infected diabetic ulcer right lateral middle back. 2. Worsening nonhealing infected diabetic ulcer left lateral middle back. 3. Diabetes mellitus. Post-Operative Diagnosis: Same. Surgery/Procedure Performed:: 1. Surgical preparation right lateral middle back with incision and drainage and excisional debridement nonhealing infected diabetic ulcer (66 cm2). 2. Surgical preparation left lateral middle back with incision and drainage and excisional debridement nonhealing infected diabetic ulcer (137.75 cm2). Description of Surgical Findings:: 59 year old man presented to [facility] today with increasing pain and redness and swelling and drainage from his nonhealing infected diabetic ulcers right lateral middle back and left lateral middle back. These ulcers started a year ago and multiple attempts at wound closure were done with skin flaps and skin grafts. The wound cultures have shown resistant Staphylococcus and Salma albicans. He has been treated with multiple oral antibiotics over this time frame. He had some compromise to the skin graft and needed HBO treatments. The skin graft was salvaged. Recently he started developing increasing pain and redness and swelling and drainage with near total breakdown of the skin grafts. He denies fever at this time. The patient has a history of diabetes , and I am concerned that he has an underlying necrotizing process because of the recent destruction of the skin graft tissue. He had been on Doxycycline recently and has failed outpatient therapy. He is being admitted for IV antibiotics with Vancomycin and Diflucan because of previous cultures showing resistant Staph and Salma albicans. I am concerned that because of his diabetes, if more aggressive treatment is not done, a more systemic infection may develop which can be life threatening. The diabetic ulcers continue to deteriorate with tissue destruction despite IV antibiotics. Will proceed with urgent operative debridement today. Postop will begin wound care with the VAC. Patient was informed of the risks and complications of the procedure including alternatives to surgery. These were discussed with the patient personally. Patient voices understanding and wishes to proceed. Size of defect right lateral middle back - 6 x 11 x 2 cm. Size of defect left lateral middle back - 9.5 x 14.5 x 1.5 cm. salon customer experience specialist: None Type of Anesthesia:: General Specimen's removed: 1. Nonhealing infected diabetic ulcer right lateral middle back to Pathology and Microbiology. 2. Nonhealing infected diabetic ulcer left lateral middle back to Pathology and Microbiology. Drains: None. Estimated Blood Loss (mL): 50 ml. Description of Procedure: Patient was taken to OR in supine position and was placed under general anesthesia. He was then placed in the prone position. The back was prepped and draped in the usual fashion. SCD's were placed for DVT prophylaxis. Perioperative antibiotics were given intravenously. Using xylocaine with epinephrine, the nonhealing diabetic ulcers right lateral middle back and left lateral middle back were infiltrated. After waiting 5 minutes for the anesthetic to take effect, I proceeded with incision and drainage of these nonhealing diabetic ulcers down into the subcutaneous tissue. No pus was seen. A lot of fat necrosis was seen extending to the underlying muscle. The fat necrosis was excised and debrided. There was abnormal granulation tissue seen in the ulcers that were also excised and debrided. Half the soft tissue for each ulcer was sent to Pathology for analysis to rule out carcinoma and half the soft tissue for each ulcer was sent to Microbiology for culture. A positive culture may necessitate antibiotic modification. The wounds were irrigated with saline. Hemostasis was obtained with electrocautery. The size of the wounds, right lateral middle back and left lateral middle back, after incision and drainage and excisional debridement are 6 x 11 x 2 cm or 66 cm2 for the right lateral middle back ulcer and 9.5 x 14.5 x 1.5 cm or 137.75 cm2 for the left lateral middle back ulcer. The wounds were dressed with Mepitel nonadherent dressing followed by Kerlix gauze and Betadine followed by dry Kerlix gauze and ABD pads. Patient tolerated the procedure well and was sent to PACU in satisfactory condition. Patient will be sent upstairs for continued postop care. The VAC will be applied tomorrow. Will continue IV Vancomycin. If the operative cultures are positive, then antibiotic modification may be necessary. Grafts/Implants Used: None. - Complications None. - Admit VTE Documentation VTE Present on Admission: No VTE Mechan Device Prophylaxis: SCD's VTE Pharm Prophylaxis ordered?: No Surgery Charges CPT - 48100 ICD-10 - L98.492, L03.312, E11.9, T86.829 62427 L98.492, L03.312, E11.9, T86.829 40814 L98.492, L03.312, E11.9, T86.829
[2019-07-23] MEDS: HYDROmorphone 1 MG/ML Syringe IV (16:13)
[2019-07-23] MEDS: Docusate Sodium 100 MG Capsule PO (20:21)
[2019-07-24] MEDS: Lactated Ringers 1,000 ML 100 ML IV (01:33)
[2019-07-24 04:30] VITALS: BP 119/59; PULSE 93; RESP 18; TEMP 37.2; O2SAT 94
[2019-07-24] MEDS: Lisinopril 5 MG Tablet PO (09:23)
[2019-07-24] MEDS: Vancomycin IV 1,000 MG/200 ML BAG 200 MG IV (09:23)
[2019-07-24] MEDS: Docusate Sodium 100 MG Capsule PO (09:24)
[2019-07-24] MEDS: HYDROmorphone 1 MG/ML Syringe IV (09:26)
[2019-07-24] MEDS: 0.9% Saline Lock 10 ML Syringe IV ×2 (09:27→14:45)
[2019-07-24 09:36] VITALS: BP 115/62; PULSE 97; RESP 16; TEMP 37.4; O2SAT 93
[2019-07-24 10:28] LABS: Hematocrit 37.3 % (40-54); Hemoglobin 12.2 g/dL (13.0-16.5); Mean Corp Hgb Conc 32.7 g/dL (32-36); Mean Corpuscular Hgb 29.8 pg (27.0-32.0); Mean Corpuscular Volume 91.2 fL (80-94); Mean Platelet Vol. 8.8 fl (6.2-12.0); Platelet Count 269 K/mm3 (150-450); RBC Distribution Width CV 12.9 % (11.6-14.6); Red Blood Count 4.09 M/mm3 (4.6-6.2); White Blood Count 7.3 K/mm3 (4.4-11.0)
--- NOTE | 2019-07-24 10:55 | NURSING ---
wound photo: back
[2019-07-24 11:12] LABS: Anion Gap 3 (5-15); BUN 20 mg/dL (7-18); BUN/Creat Ratio 16.8 RATIO (10-20); Calcium,Total 9.3 mg/dL (8.5-10.1); Chloride 105 mmol/L (98-107); Creatinine, Serum 1.19 mg/dL (0.70-1.30); EST Glomerular Filtration Rate 66 mL/min (>60); Est Glom Filt Rate - Afr Amer 80 mL/min (>60); Estimated Creatinine Clearance 72.46 ml/min; Glucose 145 mg/dL (74-106); Potassium 4.1 mmol/L (3.5-5.1); Sodium Level 138 mmol/L (136-145)
--- NOTE | 2019-07-24 11:53 | PCM.RX.CS ---
Consult Pharmacy has been consulted to manage selected antiobiotic: Vancomycin Type of Consult: Follow-up Suspected Infection: Skin/Soft tissue Labs: Sodium 138 mmol/L (136-145) 07/24/19 09:14 Potassium 4.1 mmol/L (3.5-5.1) 07/24/19 09:14 Chloride 105 mmol/L (98-107) 07/24/19 09:14 Carbon Dioxide 30.0 mmol/L (21.0-32.0) 07/24/19 09:14 Anion Gap 3 (5-15) L 07/24/19 09:14 BUN 20 mg/dL (7-18) H 07/24/19 09:14 Creatinine 1.19 mg/dL (0.70-1.30) 07/24/19 09:14 Est GFR (MDRD) Af Amer 80 mL/min (>60) 07/24/19 09:14 Est GFR (MDRD) Non-Af 66 mL/min (>60) 07/24/19 09:14 BUN/Creatinine Ratio 16.8 RATIO (10-20) 07/24/19 09:14 Glucose 145 mg/dL (74-106) H 07/24/19 09:14 Vancomycin Trough 39.0 ug/mL (5.0-15.0) H 07/24/19 09:14 Microbiology: Microbiology 07/23/19 14:25 Tissue Ulcer - Back Gram Stain - Final 07/23/19 14:25 Tissue Ulcer - Back Wound Culture - Preliminary 07/23/19 14:25 Tissue Ulcer - Back Gram Stain - Final 07/23/19 14:25 Tissue Ulcer - Back Wound Culture - Preliminary No growth-Final to follow 07/22/19 21:25 Wound Drainage - Back Gram Stain - Final 07/22/19 21:25 Wound Drainage - Back Wound Culture - Preliminary No growth-Final to follow Weight used for dosin kg Pharmacy Plan for Drug Dosing: Trough level resulted at 39. Pt has received a dose of Vancomycin 1500mg on 07/22/2019 and 2 doses of Vancomycin 1000mg prior to the trough. Pt's SrCr is stable and unchanged at 1.19. Recommendation is to hold current doses of Vancomycin and check another level on 07/24/2019 at 2030 in case of false reading. Pharmacy Service will continue to monitor and adjust dosing as required. Follow-Up Labs: Trough Vancomycin - 07/24/19 at 2030
--- NOTE | 2019-07-24 12:49 | CASEMGMT ---
Pt updated on plan on care, [facility] and [facility] prices at this time-pt voices understanding and states he would like this RN CM to call this with all of the same info as he feels he is 'a little cloudy' at this time after having pain meds. Per Myleswound RN, pt's vac should get approval today and pt will be able to go home with vac, [facility], and [facility] at discharge. Call to Tayler at [facility] to make sure that they will still have meds delivered this afternoon for start of care tonight and she verifies that they will. This RN CM advised her to call pt's on her cell phone with all details per pt preference, voices understanding. Call to pt's , Han Amezquita, to update on all at this time and she voices understanding at this time. Pt/ voice no further questions/concerns/needs at this time. [facility] is aware that pt will need start of care tonight at around 1999,voices understanding. Fe BIANCHI CM
--- NOTE | 2019-07-24 14:20 | NURSING ---
Pt switched over to the home VAC. pt to be discharged later today. Pt denies questions or further needs.
[2019-07-24] MEDS: oxyCODONE 5 MG Tablet 10 MG PO (14:45)
--- NOTE | 2019-07-24 16:39 | PCM.DC.SUM ---
Discharge Date and Diagnosis Date of Admission: 07/22/19 Date of Discharge: 07/24/19 - Primary Discharge Diagnosis Worsening nonhealing infected diabetic ulcer right lateral middle back. Worsening nonhealing infected diabetic ulcer left lateral middle back. 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 Surgical preparation right lateral middle back with incision and drainage and excisional debridement nonhealing infected diabetic ulcer (66 cm2). 2. Surgical preparation left lateral middle back with incision and drainage and excisional debridement nonhealing infected diabetic ulcer (137.75 cm2). Procedures: PICC line placement, Wound vac placement Summary of Care Provided: 59 year old man presented to [facility] 07/22/19 with increasing pain and redness and swelling and drainage from his nonhealing infected diabetic ulcers right lateral middle back and left lateral middle back. These ulcers started a year ago and multiple attempts at wound closure were done with skin flaps and skin grafts. The wound cultures have shown resistant Staphylococcus and Salma albicans. He has been treated with multiple oral antibiotics over this time frame. He had some compromise to the skin graft and needed HBO treatments. The skin graft was salvaged. Recently he started developing increasing pain and redness and swelling and drainage with near total breakdown of the skin grafts. He denies fever at this time. The patient has a history of diabetes , and I am concerned that he has an underlying necrotizing process because of the recent destruction of the skin graft tissue. He had been on Doxycycline recently and has failed outpatient therapy. He is being admitted for IV antibiotics with Vancomycin and Diflucan because of previous cultures showing resistant Staph and Salma albicans. I am concerned that because of his diabetes, if more aggressive treatment is not done, a more systemic infection may develop which can be life threatening. The diabetic ulcers continue to deteriorate with tissue destruction despite IV antibiotics. Will proceed with urgent operative debridement today, 07/23/19, where he underwent surgical preparation right lateral middle back with incision and drainage and excisional debridement nonhealing infected diabetic ulcer (66 cm2) and surgical preparation left lateral middle back with incision and drainage and excisional debridement nonhealing infected diabetic ulcer (137.75 cm2). He tolerated the procedure well. The VAC was applied the following day 07/24/19. The VAC was approved. Valium was added because of spasm from the VAC. The IV antibiotics were set up for home and he was discharged home in satisfactory condition. Operative cultures are pending thus far. When they are available, if they are positive, then antibiotic modification may be necessary. Followup [facility] on Monday07/29/19. Wrote scripts for Vancomycin for a 6 week course of therapy, for Acidophilus, for Percocet for pain (40 tabs) and for Valium for spasm (30 tabs). Condition upon discharge is good. Subjective: Postop #1 Patient has wound pain. VAC applied today. - Physical Exam Vitals/I&O's: Vital Signs Temp Pulse Resp BP Pulse Ox 99.4 F H 97 16 115/62 93 07/24/19 09:36 07/24/19 09:36 07/24/19 09:36 07/24/19 09:36 07/24/19 09:36 Oxygen Delivery Method Room Air Weight: 208 lb 1.862 oz Body Mass Index (BMI) 28.2 Finger Stick Blood Glucose 134 Intake and Output for Last 24 Hours 07/22/19 07/23/19 07/24/19 23:59 23:59 23:59 Intake Total 1710 / 1710 2804 / 3304 3200.00 / 3200.00 Balance 1710 / 1710 2804 / 3304 3200.00 / 3200.00 General: Alert, Oriented x3 HEENT: PERRLA, EOMI Oral: Moist Mucosa Neck: Supple Abdomen: Soft, Non-Distended Skin: Ulcer/ Wound - back wounds (right lateral middle back and left lateral middle back) are stable. No active bleeding seen. VAC applied today. Neurological: Cranial nerves II-XII grossly intact Psych/Mental Status: Normal Affect, Appropriate Microbiology Past 72 Hours 07/23/19 14:25 Tissue Ulcer - Back Gram Stain - Final 07/23/19 14:25 Tissue Ulcer - Back Wound Culture - Preliminary 07/23/19 14:25 Tissue Ulcer - Back Gram Stain - Final 07/23/19 14:25 Tissue Ulcer - Back Wound Culture - Preliminary No growth-Final to follow 07/22/19 21:25 Wound Drainage - Back Gram Stain - Final 07/22/19 21:25 Wound Drainage - Back Wound Culture - Preliminary No growth-Final to follow Laboratory Results 07/24/19 09:14: Vancomycin Trough 39.0 H 07/24/19 09:14: WBC 7.3, RBC 4.09 L, Hgb 12.2 L, Hct 37.3 L, MCV 91.2, MCH 29.8, MCHC 32.7, RDW Std Deviation 43.0, RDW Coeff of Bernardino 12.9, Plt Count 269, MPV 8.8 07/24/19 09:14: Sodium 138, Potassium 4.1, Chloride 105, Carbon Dioxide 30.0, Anion Gap 3 L, BUN 20 H, Creatinine 1.19, Estim Creat Clear Calc 72.46, Est GFR (MDRD) Af Amer 80, Est GFR (MDRD) Non-Af 66, BUN/Creatinine Ratio 16.8, Glucose 145 H, Calcium 9.3 Current Medications Albuterol Sulfate (Ventolin Aerosols) 2.5 mg INHALATION Q6H PRN PRN Reason: SOB &/OR WHEEZING Diazepam (Valium) 5 mg PO 4X/DAY PRN PRN PRN Reason: SPASMS Docusate Sodium (Colace) 100 mg PO BID [facility] Last Admin: 07/24/19 09:24 Dose: 100 mg Documented by: Heparin Sodium (Beef Lung) () 50 units IV UD PRN PRN Reason: PICC Line Heparin Flush Hydromorphone HCl (Dilaudid Inj) 1 mg IV Q4H PRN PRN PRN Reason: Pain Score 6-10/10 Last Admin: 07/24/19 09:26 Dose: 1 mg Documented by: Lactated Ringer's () 1,000 mls @ 60 mls/hr IV .[id number] [facility] Last Admin: 07/24/19 05:06 Dose: Not Given Documented by: Vancomycin IV Pharmacy to Dose (1 ea/ Sodium Chloride) 500 mls @ 250 mls/hr IV PRN PRN; Protocol PRN Reason: Rx to Dose Fluconazole (Diflucan) 200 mg in 100 mls @ 100 mls/hr IV Q24 [facility] Last Infusion: 07/24/19 12:05 Dose: Infused Documented by: Lactated Ringer's () 1,000 mls @ 100 mls/hr IV .Q10H [facility] Last Infusion: 07/24/19 14:45 Dose: Infused Documented by: Lisinopril (Zestril) 5 mg PO DAILY [facility] Last Admin: 07/24/19 09:23 Dose: 5 mg Documented by: Nutritional Formula ([place] Flavor) 1 packet PO BIDCM [facility] Last Admin: 07/24/19 09:23 Dose: 1 packet Documented by: Ondansetron HCl (Zofran) 4 mg IV Q6H PRN PRN PRN Reason: NAUSEA Oxycodone HCl (Oxyir) 10 mg PO Q4H PRN PRN PRN Reason: Pain Score 4-5/10 Last Admin: 07/24/19 14:45 Dose: 10 mg Documented by: Promethazine HCl (Phenergan Tablet) 25 mg PO Q4H PRN PRN PRN Reason: NAUSEA/VOMITING Sodium Chloride () 10 - 40 ml IV UD PRN PRN Reason: Open End PICC Flush Last Admin: 07/24/19 14:45 Dose: 10 ml Documented by: Sodium Chloride (0.9% Nacl (Sterile) Posiflush) 10 - 40 ml IV UD PRN PRN Reason: Port access or dressing change Sodium Chloride () 10 - 40 ml IV UD PRN PRN Reason: SALINE FLUSH Discharge Diet: Carb Control Diet, - - encourage nutritional supplementation with protein to help the healing process. Home Medications: Medications to take at Discharge diclofenac sodium 1 % topical gel 2 g TOPICAL DAILY PRN PRN 04/25/19 albuterol sulfate 90 mcg/actuation aerosol inhaler 2 puff INHALATION Q6H PRN #8.5 g 04/30/19 lisinopril 5 mg tablet 5 mg PO DAILY 04/30/19 Vancomycin IV [Vancomycin] 1,000 mg IV Q12H #82 bag 07/23/19 Diazepam [Valium] 5 mg PO 4X/DAY PRN PRN #30 tab 07/24/19 Lactobacillus Acidophilus/Fos [Acidophilus Probiotic Tablet] 1 ea PO BID #60 tab 07/24/19 Oxycodone HCl/Acetaminophen [Oxycodone-Acetaminophen 5-325] 1 tab PO .[id number] PRN PRN 7 Days #40 tab MDD PAIN 07/24/19 Following Prescrptions Were Given to Patient: Lactobacillus Acidophilus/Fos [Acidophilus Probiotic Tablet] 1 ea PO BID #60 tab [id number] Oxycodone HCl/Acetaminophen [Oxycodone-Acetaminophen 5-325] 1 tab PO .[id number] PRN PRN 7 Days #40 tab MDD PAIN PRN Reason: Pain Score 4-5/10 Transmission Status: Received by [id number] Diazepam [Valium] 5 mg PO 4X/DAY PRN PRN #30 tab PRN Reason: Spasms Transmission Status: Received by [id number] Vancomycin IV [Vancomycin] 1,000 mg IV Q12H #82 bag Prescription Printed Primary Care Physician: Ryan Gandhi DO [Primary Care Provider] - Please Follow Up With: David Lemus MD When: Monday07/29/19 at [facility]. Call [phone] for appointment time. Disposition: Home with Home Health Minutes spent on discharge:: 30 Patient Condition:: Good Medical Necessity - Tobacco Use Smoking Status: Never smoker Tobacco Use: Non-smoker Meaningful Use Info Meaningful Use Diagnoses (Choose all that apply): None applicable Inpatient E&M: 21766 Disch Hosp - ICD-10 - L98.492, L03.312, E11.9, T86.829
--- NOTE | 2019-07-24 16:45 | PCM.DC ---
- Discharge Diagnoses Current Active Problems: Current Active and Chronic Problems (Last Reviewed 04/30/19 @ 09:[address] 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 Discharge Activity: May not drive while taking narcotic pain medications., May Shower - in two days on the days the vac is changed. May shower in (days): 2 - may shower on the days the vac is changed. May resume sexual activity in: No Restrictions Weight Bearing Status: Weight bearing as tolerated Call your doctor if your incision/area has: Continuous Slow Oozing, Sudden Increased Bleeding, Increased Pain/ Swelling, Increased Redness, Foul Smelling Discharge, Swelling at the incision site Call your doctor if you observe: Fever of 101 or Higher, Coldness, Increased Pain, Shortness of breath, Chest pain, Calf discomfort, Uncontrolled pain Suture Line Care: - - vac changes to back three times per week at 150 mmHg continuous suction. Change Dressing in (Days):: 2 - vac changes three times per week. Cleanse incision/area with: Soap & Water - may cleanse the wound with soap and water at the time of the vac change., - - may shower on the days the vac is changed. Additional Dressing/Incision Instructions:: Home Health to assist with vac changes three times per week at 150 mmHg continous suction. May cleanse the wound with soap and water at the time of the vac change. Additional Instructions: Home Health to draw labs qMonday (CBC, CMP, ESR, CRP, and Vancomycin Trough). Please fax results to [phone] and [phone]. Pharmacy to dose the Vancomycin. Allergies/Adverse Reactions: Allergies No Known Allergies Allergy (Verified 02/21/19 08:44) Medications to take at Discharge diclofenac sodium 1 % topical gel 2 g TOPICAL DAILY PRN PRN 04/25/19 albuterol sulfate 90 mcg/actuation aerosol inhaler 2 puff INHALATION Q6H PRN #8.5 g 04/30/19 lisinopril 5 mg tablet 5 mg PO DAILY 04/30/19 Vancomycin IV [Vancomycin] 1,000 mg IV Q12H #82 bag 07/23/19 Diazepam [Valium] 5 mg PO 4X/DAY PRN PRN #30 tablet 07/24/19 Lactobacillus Acidophilus/Fos [Acidophilus Probiotic Tablet] 1 ea PO BID #60 tab 07/24/19 Oxycodone HCl/Acetaminophen [Oxycodone-Acetaminophen 5-325] 1 tab PO .[id number] PRN PRN 7 Days #40 tab MDD PAIN 07/24/19 The following prescriptions were given: Lactobacillus Acidophilus/Fos [Acidophilus Probiotic Tablet] 1 ea PO BID #60 tab Transmission Status: Pending to [facility] Oxycodone HCl/Acetaminophen [Oxycodone-Acetaminophen 5-325] 1 tab PO .[id number] PRN PRN 7 Days #40 tab MDD PAIN PRN Reason: Pain Score 4-5/10 Transmission Status: Sent to [facility] Diazepam [Valium] 5 mg PO 4X/DAY PRN PRN #30 tablet PRN Reason: Spasms [facility] Vancomycin IV [Vancomycin] 1,000 mg IV Q12H #82 bag Prescription Printed Primary Care Physician: Ryan Gandhi DO [Primary Care Provider] - Test Results: Test results from this visit will be discussed in further detail at your follow-up appointment, if applicable. Please Follow Up With: David Lemus MD When: 07/29/19, at [facility]. Call [phone] for appointment time. Proposed Discharge Date: 07/24/19
--- NOTE | 2019-07-24 16:58 | PCA ---
Faxed discharge paperwork to [facility] home health and spoke with Gemma,nurse on-call, on the phone and notified her of discharge.
[2019-07-24 17:09] VITALS: BP 122/68; PULSE 101; RESP 18; TEMP 36.9; O2SAT 94
== END 2019-07-24 17:35 | disposition home or self-care (01) | DRG 623 ==
PROVIDERS: Admitting Provider Surgery; PCP Family Medicine; Visit Provider Surgery
PROC: 0JB70ZZ Excision of Back Subcutaneous Tissue and Fascia, Open Approach (ICD-10-PCS; principal; 2019-07-23 12:50)
DX: E11.622 Type 2 diabetes mellitus with other skin ulcer (principal); Z16.30 Resistance to unspecified antimicrobial drugs; T86.821 Skin graft (allograft) (autograft) failure; L02.212 Cutaneous abscess of back [any part, except buttock and flank]; L98.422 Non-pressure chronic ulcer of back with fat layer exposed; Z79.899 Other long term (current) drug therapy; B95.8 Unspecified staphylococcus as the cause of diseases classified elsewhere; B37.9 Candidiasis, unspecified; G47.33 Obstructive sleep apnea (adult) (pediatric); I12.9 Hypertensive chronic kidney disease with stage 1 through stage 4 chronic kidney disease, or unspecified chronic kidney disease; N18.1 Chronic kidney disease, stage 1; E11.22 Type 2 diabetes mellitus with diabetic chronic kidney disease
CPT/HCPCS: 36415; 36569; 80048; 80053; 80202; 82962; 83036; 84134; 85027; 85652; 86140; 87015; 87070; 87075; 87077; 87102; 87116; 87186; 87205; 87206; 87640; 88304; 88305; 88312; 97802; J7040; J7120; A4216; J2405

== ENCOUNTER → 2019-07-29 | Outpatient (CLI) | payer OTHER, SELFPAY ==
[2019-07-23 11:37] VITALS: BMI 28.2
[2019-07-29 11:21] LABS: Vancomycin, Trough Level 11.7 ug/mL (5.0-15.0)
== END | disposition home or self-care (01) ==
LOC: LABSPEC 10:38
PROVIDERS: PCP Surgery; Referring Provider Surgery; Visit Provider Surgery
DX: T86.828 Other complications of skin graft (allograft) (autograft) (principal); E11.622 Type 2 diabetes mellitus with other skin ulcer; L98.492 Non-pressure chronic ulcer of skin of other sites with fat layer exposed
CPT/HCPCS: 80202

== ENCOUNTER → 2019-08-05 | Outpatient (CLI) | payer OTHER, SELFPAY ==
[2019-08-05 13:59] VITALS: BMI 28.2
[2019-08-05 14:57] LABS: Hematocrit 38.1 % (40-54); Mean Corp Hgb Conc 31.5 g/dL (32-36); Mean Corpuscular Hgb 28.4 pg (27.0-32.0); Mean Corpuscular Volume 90.3 fL (80-94); Mean Platelet Vol. 9.9 fl (6.2-12.0); Platelet Count 299 K/mm3 (150-450); RBC Distribution Width CV 12.7 % (11.6-14.6); Red Blood Count 4.22 M/mm3 (4.6-6.2); White Blood Count 5.8 K/mm3 (4.4-11.0)
[2019-08-05 15:01] LABS: ALB/GLOB Ratio 0.9 RATIO (0.9-2.4); AST(SGOT) 17 U/L (15-37); Alanine Aminotransfer ALT/SGPT 29 U/L (16-61); Albumin, Serum 3.5 g/dL (3.2-5.0); Alkaline Phosphatase 25 U/L (45-117); Anion Gap 6 (5-15); BUN 19 mg/dL (7-18); BUN/Creat Ratio 19.3 RATIO (10-20); Calcium,Total 9.2 mg/dL (8.5-10.1); Chloride 102 mmol/L (98-107); Creatinine, Serum 0.99 mg/dL (0.70-1.30); EST Glomerular Filtration Rate 82 mL/min (>60); Est Glom Filt Rate - Afr Amer 100 mL/min (>60); Glucose 92 mg/dL (74-106); Potassium 3.9 mmol/L (3.5-5.1); Protein, Total 7.5 g/dL (6.4-8.2); Sodium Level 139 mmol/L (136-145)
[2019-08-05 15:05] LABS: Vancomycin, Trough Level 12.5 ug/mL (5.0-15.0)
[2019-08-05 15:08] LABS: Erythrocyte Sedimentation Rate 32 mm/hr (0-20)
== END | disposition home or self-care (01) ==
LOC: LABSPEC 14:01
PROVIDERS: PCP Surgery; Referring Provider Surgery; Visit Provider Surgery
DX: S21.209D Unspecified open wound of unspecified back wall of thorax without penetration into thoracic cavity, subsequent encounter (principal); X58.XXXD Exposure to other specified factors, subsequent encounter; I12.9 Hypertensive chronic kidney disease with stage 1 through stage 4 chronic kidney disease, or unspecified chronic kidney disease; E11.22 Type 2 diabetes mellitus with diabetic chronic kidney disease; N18.9 Chronic kidney disease, unspecified; G47.33 Obstructive sleep apnea (adult) (pediatric); D36.10 Benign neoplasm of peripheral nerves and autonomic nervous system, unspecified
CPT/HCPCS: 80053; 80202; 85027; 85652; 86140

== ENCOUNTER 2019-08-12 11:30 | Outpatient (RCR) | payer OTHER, SELFPAY ==
[2019-07-17 00:26] VITALS: BP 124/67; PULSE 78; RESP 18; TEMP 35.3; O2SAT 97
[2019-07-22 15:00] VITALS: BP 121/68; PULSE 73; RESP 18; TEMP 36.6
--- NOTE | 2019-07-22 16:01 | PCM.WC.PN ---
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 History of Wound: Surgery 02/18/19 - 1. Surgical preparation right lateral middle back with excision nonhealing diabetic ulcer. 2. Reconstruction with STSG from right posterior flank (21 cm2) and placement AmnioFill Placental Connective Tissue Powder (250 mg) and placement TAYLOR NPWT. 3. Surgical preparation left lateral middle back with excision nonhealing diabetic ulcer. 4. Reconstruction with STSG from left posterior flank (48 cm2) and placement of AmnioFill Placental Connective Tissue Powder (500 mg) and placement of TAYLOR NPWT. Wound care - Stop the mupirocin ointment and start Silver dressing daily. Wound cultures from 05/27/19 showed Staphylococcus epidermidis in both ulcers. He was started on Doxycycline. While on Doxycycline, he had another wound culture done on 06/18/19 which was negative. He has had persistent cultures over the past year showing MRSE, Staphylococcus aureus, Methicillin resistant Staphylococcus haemolyticus, Staphylococcus lugdunensis, and Salma albicans. Prealbumin from 12/05/18 was 22.5. Encourage nutritonal supplementation with protein to help the healing process. He developed some compromise to the skin grafts on his back. He completed HBO treatments and has tolerated them. Today he denies fever. His appetite is good. Amnio [place] advanced skin product has been placed without improvement in the scattered ulcerations in the skin grafts. He is also developing increasing pain in the ulcerations making wound center debridements less than optimal. He has also noticed a small opening in the right posterior flank donor incision. Progress of Wound: The ulcer clusters have increased in size to the point that they are covering more area where the skin graft had been. He is also having increase in pain and drainage. Spoke with Dr. Lemus and he would like to have him admitted for IV antibiotics for worsening infection. - Physical Exam Vital Signs Temp Pulse Resp BP Pulse Ox 97.8 F 73 18 121/68 H 97 07/22/19 15:00 07/22/19 15:00 07/22/19 15:00 07/22/19 15:00 07/17/19 00:26 General: Alert, Oriented x3, Cooperative HEENT: Atraumatic Oral: Moist Mucosa Neck: Supple Lungs: Clear to auscultation, Normal air movement Cardiovascular: Regular rate Abdomen: Bowel Sounds Present, Soft Extremities: No edema, Capillary Refill Less than 3 Seconds Skin: Ulcer/ Wound - Right middle lateral back ulcer and left middle lateral back ulcers are both enlarged, with increased pain and drainage. Wound Measurements and Assessment WC - Nurse 1 - General Ulcer Measurement Start: 07/22/19 15:00 Freq: Status: Active Protocol: Activity Type Activity Date Activity User E-Sign Co-Sign Detail Recorded Client Recorded Date Recorded By Document 07/22/19 15:00 DL [id number] 07/22/19 15:08 DL 07/22/19 15:00 Wound Center Nurse 1 [Ulcer Assessment] #7 R Lower Side -Current Size (cm) - Length 1 -Current Size (cm) - Width 1.7 -Current Size (cm) - Depth 0.2 -Total Square Cm 1.7 -Photo Taken No -Exudate Amt Small -Exudate Type Serosanguineous -Wound Margin Distinct, Outline Attached -Granulation Amt Medium (34-66%) -Granulation Quality Red -Necrosis Amt Medium (34-66%) -Necrotic Tissue Type Adherent Slough -Structure Exposed N/A -Texture (Mayra-wound Skin Appearance) Scarring -Moisture (Mayra-wound Skin Appearance No Abnormality ) -Color (Mayra-wound Skin Appearance) Erythema,Rubor -Temperature (Mayra-wound Skin No Abnormality Appearance) (Pt Warm) -Tenderness on Palpation (Mayra-wound No Skin Appearance) -Ulcer Cleansing Rinsed/ Irrigated with Saline -Foul Odor after Cleansing No -Anesthetic Used 4% Lidocaine Solution 6. L lumbar back -Current Size (cm) - Length 7 -Current Size (cm) - Width 9.6 -Current Size (cm) - Depth 0.3 -Total Square Cm 67.2 -Photo Taken Yes -Exudate Amt Medium -Exudate Type Serosanguineous -Wound Margin Distinct, Outline Attached -Granulation Amt Medium (34-66%) -Granulation Quality Red -Necrosis Amt Medium (34-66%) -Necrotic Tissue Type Adherent Slough -Structure Exposed N/A -Texture (Mayra-wound Skin Appearance) Scarring -Moisture (Mayra-wound Skin Appearance No Abnormality ) -Color (Mayra-wound Skin Appearance) Erythema,Rubor -Temperature (Mayra-wound Skin No Abnormality Appearance) (Pt Warm) -Tenderness on Palpation (Mayra-wound Yes Skin Appearance) -Ulcer Cleansing Rinsed/ Irrigated with Saline -Foul Odor after Cleansing No -Anesthetic Used 4% Lidocaine Solution 5. R scapula -Current Size (cm) - Length 6 -Current Size (cm) - Width 5.5 -Current Size (cm) - Depth 0.2 -Total Square Cm 33.0 -Photo Taken No -Exudate Amt Medium -Exudate Type Serosanguineous -Wound Margin Distinct, Outline Attached -Granulation Amt Medium (34-66%) -Granulation Quality Red -Necrosis Amt Medium (34-66%) -Necrotic Tissue Type Adherent Slough -Structure Exposed N/A -Texture (Mayra-wound Skin Appearance) Scarring -Moisture (Mayra-wound Skin Appearance No Abnormality ) -Color (Mayra-wound Skin Appearance) Erythema,Rubor -Temperature (Mayra-wound Skin No Abnormality Appearance) (Pt Warm) -Tenderness on Palpation (Mayra-wound No Skin Appearance) -Ulcer Cleansing Rinsed/ Irrigated with Saline -Foul Odor after Cleansing Yes -Anesthetic Used 4% Lidocaine Solution WC - Nurse 2 - General Ulcer CM Notes Start: 07/22/19 15:00 Freq: Status: Active Protocol: Activity Type Activity Date Activity User E-Sign Co-Sign Detail Recorded Client Recorded Date Recorded By Document 07/22/19 15:21 [facility] [id number] 07/22/19 15:22 [facility] 07/22/19 15:21 Wound Center Nurse 2 [Procedure/Treatment] #7 R Lower Side -Correct Patient No -Correct Side, Site, Position No -Correct Procedure No -Procedure Performed No -Wound/Ulcer Outcome Not Healed 6. L lumbar back -Correct Patient No -Correct Side, Site, Position No -Correct Procedure No -Procedure Performed No -Wound/Ulcer Outcome Not Healed 5. R scapula -Correct Patient No -Correct Side, Site, Position No -Correct Procedure No -Procedure Performed No -Wound/Ulcer Outcome Not Healed [See Physician Procedure note for Specifics] Pain Scale: 0-10 Numeric [Pain] -Is Patient Pain Free? Yes Musculoskeletal: No Tenderness to Palpation of Joints or Extremities Lymphatic: - - No cervical adenopathy Neurological: Neuro grossly intact Psych/Mental Status: Normal Affect, Appropriate Debridement Note Post-Debridement Measurements/Treatment WC - Nurse 2 - General Ulcer CM Notes Start: 07/22/19 15:00 Freq: Status: Active Protocol: Activity Type Activity Date Activity User E-Sign Co-Sign Detail Recorded Client Recorded Date Recorded By Document 07/22/19 15:21 [id number] 07/22/19 15:22 [facility] 07/22/19 15:21 Wound Center Nurse 2 #7 R Lower Side -Correct Patient No -Correct Side, Site, Position No -Correct Procedure No -Procedure Performed No -Wound/Ulcer Outcome Not Healed 6. L lumbar back -Correct Patient No -Correct Side, Site, Position No -Correct Procedure No -Procedure Performed No -Wound/Ulcer Outcome Not Healed 5. R scapula -Correct Patient No -Correct Side, Site, Position No -Correct Procedure No -Procedure Performed No -Wound/Ulcer Outcome Not Healed Pain Scale: 0-10 Numeric Is Patient Pain Free? Yes No debridement was completed today Assessment/Plan Active Problems (Last Reviewed 04/30/19 @ 09:[address] 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 Worsening nonhealing diabetic ulcer right lateral middle back. 2. Worsening nonhealing diabetic ulcer left lateral middle back. 3. Nonhealing diabetic ulcer right posterior flank. 4. Diabetes mellitus. 5. s/p surgical preparation right lateral middle back with excision nonhealing diabetic ulcer and reconstruction with STSG from right posterior flank (21 cm2) and placement AmnioFill Placental Connective Tissue Powder (250 mg) and placement TAYLOR NPWT and surgical preparation left lateral middle back with excision nonhealing diabetic ulcer and reconstruction with STSG from left posterior flank (48 cm2) and placement of AmnioFill Placental Connective Tissue Powder (500 mg) and placement of TAYLOR NPWT. 6. Mild compromised skin grafts. Plan: Amnio [place] advanced skin product was tried on both back ulcers, and he developed more areas of ulceration. He washes daily with either chlorhexidine or Dial soap and will have him start daily Silver dressing changes due to the significant amount of enlargement of his ulcers. He is having increased amount of pain. I spoke with Dr. Lemus about my concern of the enlarging ulcers and the increased pain. He would like to start him on IV antibiotics for worsening infection. He will plan on admitting him for PICC line and IV antibiotics. Patient is to go to the hospital to get admitted before 4:30 he can go to the registration desk. (Greater than 25 minutes spent on coordination of care with Dr. Lemus and patient education on different options of care). He has finished the HBO. A wound culture was done on 05/27/19. It showed Staphylococcus epidermidis in both ulcers. He restarted his Doxycycline. Dr. Jerez did cultures on 06/18/19 when he saw him and they were negative for bacterial growth, but patient was still on Doxycycline when the cultures were obtained. Had a discussion with the patient about his persistent Staphylococcus in the ulcers despite multiple oral antibiotic treatments. He would benefit from IV antibiotics to see if that helps to jump start the healing process. In addition to the IV antibiotics, another operative debridement may be necessary in case any abnormal residual scar tissue is present that is hindering healing as well. He will think about that option and will let us know. This would necessitate admission to the hospital to get the IV antibiotics started. With persistent Staph, will start Vancomycin. In the meantime, continue the wound care and finish the Doxycycline. Prealbumin from 12/05/18 was 22.5. Encourage nutritional supplementation with protein to help the healing process. Followup one week. Office Visits / Consults: [id number] L4 Est
[2019-07-29 14:45] VITALS: BP 107/71; PULSE 82; RESP 20; TEMP 36.8; BMI 28.4
--- NOTE | 2019-07-29 15:02 | PN.PCM_ITS ---
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 History of Wound: Surgery 07/23/19 - 1. Surgical preparation right lateral middle back with incision and drainage and excisional debridement nonhealing infected diabetic ulcer (66 cm2). 2. Surgical preparation left lateral middle back with incision and drainage and excisional debridement nonhealing infected diabetic ulcer (137.75 cm2). Surgical wound cultures from 07/23/19 were positive for resistant Staphylococcus epidermidis. He was started on IV Vancomycin for treatment. Wound care- Wound VAC at 150mmHg. He has [facility] to help with his wound VAC changes. He states his pain has been controlled with his pain medication. He also has a right flank ulcer from his previous donor tissue that has a small opening that we are placing Silver dressing daily to that area. Surgery 02/18/19 - 1. Surgical preparation right lateral middle back with excision nonhealing diabetic ulcer. 2. Reconstruction with STSG from right posterior flank (21 cm2) and placement AmnioFill Placental Connective Tissue Powder (250 mg) and placement TAYLOR NPWT. 3. Surgical preparation left lateral middle back with excision nonhealing diabetic ulcer. 4. Reconstruction with STSG from left posterior flank (48 cm2) and placement of AmnioFill Placental Connective Tissue Powder (500 mg) and placement of TAYLOR NPWT. Wound care - Stop the mupirocin ointment and start Silver dressing daily. Wound cultures from 05/27/19 showed Staphylococcus epidermidis in both ulcers. He was started on Doxycycline. While on Doxycycline, he had another wound culture done on 06/18/19 which was negative. He has had persistent cultures over the past year showing MRSE, Staphylococcus aureus, Methicillin resistant Staphylococcus haemolyticus, Staphylococcus lugdunensis, and Salma albicans. Prealbumin from 12/05/18 was 22.5. Encourage nutritonal supplementation with protein to help the healing process. He developed some compromise to the skin g rafts on his back. He completed HBO treatments and has tolerated them. Today he denies fever. His appetite is good. Amnio Carroll advanced skin product has been placed without improvement in the scattered ulcerations in the skin grafts. He is also developing increasing pain in the ulcerations making wound center debridements less than optimal. He has also noticed a small opening in the right posterior flank donor incision. Progress of Wound: Patient was admitted on 07/22/19 after being seen at the wound center for worsening right middle back and left middle back ulcers that were more painful and increased drainage. On 07/23/19 he was taken to surgery for incision and drainage of these two ulcers and started on IV Vancomycin. Today they are stable with the wound VAC. - Physical Exam Vital Signs Temp Pulse Resp BP Pulse Ox 98.2 F 82 20 H 107/71 97 07/29/19 14:45 07/29/19 14:45 07/29/19 14:45 07/29/19 14:45 07/17/19 00:26 General: Alert, Oriented x3, Cooperative HEENT: Atraumatic Oral: Moist Mucosa Lungs: Normal air movement Cardiovascular: Regular rate Extremities: Capillary Refill Less than 3 Seconds Skin: Ulcer/ Wound - Right middle back ulcer and left middle back ulcer. Right flank donor site ulcer Wound Measurements and Assessment WC - Nurse 1 - General Ulcer Measurement Start: 07/22/19 15:00 Freq: Status: Active Protocol: Activity Type Activity Date Activity User E-Sign Co-Sign Detail Recorded Client Recorded Date Recorded By Document 07/29/19 14:45 DL [id number] 07/29/19 14:59 DL 07/29/19 14:45 Wound Center Nurse 1 [Ulcer Assessment] #7 R Lower Side -Current Size (cm) - Length 1 -Current Size (cm) - Width 2.2 -Current Size (cm) - Depth 0.3 -Total Square Cm 2.2 -Photo Taken No -Exudate Amt Small -Exudate Type Serosanguineous -Wound Margin Distinct, Outline Attached -Granulation Amt Large (67-100%) -Granulation Quality Red -Slough/Fibrin Yes -Necrosis Amt Small (1-33%) -Structure Exposed N/A -Texture (Mayra-wound Skin Appearance) Scarring -Moisture (Mayra-wound Skin Appearance No Abnormality ) -Color (Mayra-wound Skin Appearance) Erythema,Rubor -Temperature (Mayra-wound Skin No Abnormality Appearance) (Pt Warm) -Tenderness on Palpation (Mayra-wound Yes Skin Appearance) -Ulcer Cleansing Wound Cleanser -Foul Odor after Cleansing No -Anesthetic Used 4% Lidocaine Solution 6. L lumbar back -Current Size (cm) - Length 7.2 -Current Size (cm) - Width 14.3 -Current Size (cm) - Depth 1.2 -Total Square Cm 102.96 -Photo Taken No -Exudate Amt Medium -Exudate Type Serosanguineous -Wound Margin Distinct, Outline Attached -Granulation Amt Large (67-100%) -Granulation Quality Red -Necrosis Amt Small (1-33%) -Necrotic Tissue Type Adherent Slough -Structure Exposed N/A -Texture (Mayra-wound Skin Appearance) Scarring -Moisture (Mayra-wound Skin Appearance No Abnormality ) -Color (Mayra-wound Skin Appearance) Rubor -Temperature (Mayra-wound Skin No Abnormality Appearance) (Pt Warm) -Tenderness on Palpation (Mayra-wound Yes Skin Appearance) -Ulcer Cleansing Wound Cleanser -Foul Odor after Cleansing No -Anesthetic Used 4% Lidocaine Solution 5. R scapula -Current Size (cm) - Length 5 -Current Size (cm) - Width 11.2 -Current Size (cm) - Depth 1.3 -Total Square Cm 56.0 -Photo Taken No -Exudate Amt Medium -Exudate Type Serosanguineous -Wound Margin Distinct, Outline Attached -Granulation Amt Large (67-100%) -Granulation Quality Red -Necrosis Amt Small (1-33%) -Necrotic Tissue Type Adherent Slough -Structure Exposed N/A -Texture (Mayra-wound Skin Appearance) Scarring -Moisture (Mayra-wound Skin Appearance No Abnormality ) -Color (Mayra-wound Skin Appearance) Rubor -Temperature (Mayra-wound Skin No Abnormality Appearance) (Pt Warm) -Tenderness on Palpation (Mayra-wound Yes Skin Appearance) -Ulcer Cleansing Wound Cleanser -Foul Odor after Cleansing No -Anesthetic Used 4% Lidocaine Solution Neurological: Neuro grossly intact Psych/Mental Status: Normal Affect, Appropriate Debridement Note Post-Debridement Measurements/Treatment WC - Nurse 2 - General Ulcer CM Notes Start: 07/22/19 15:00 Freq: Status: Active Protocol: Activity Type Activity Date Activity User E-Sign Co-Sign Detail Recorded Client Recorded Date Recorded By Document 07/22/19 15:21 [id number] 07/22/19 15:22 [facility] 07/22/19 15:21 Wound Center Nurse 2 #7 R Lower Side -Correct Patient No -Correct Side, Site, Position No -Correct Procedure No -Procedure Performed No -Wound/Ulcer Outcome Not Healed 6. L lumbar back -Correct Patient No -Correct Side, Site, Position No -Correct Procedure No -Procedure Performed No -Wound/Ulcer Outcome Not Healed 5. R scapula -Correct Patient No -Correct Side, Site, Position No -Correct Procedure No -Procedure Performed No -Wound/Ulcer Outcome Not Healed Pain Scale: 0-10 Numeric Is Patient Pain Free? Yes Wound debrided: Flank ulcer Laterality: Right Type of Debridement: Excisional debridement Anesthesia Used: 5% Lidocaine Gel Depth: Down to and including healthy tissue, in the subcutaneous layer Percentage of wound debrided: 100 Instrument Used: 3mm curette Tissue Removed: Subcutaneous tissue and slough Severity: Fat Layer Exposed Amount of bleeding with debridement: Mild Bleeding Controlled with: Pressure Patient tolerated procedure well Assessment/Plan Active Problems (Last Reviewed 04/30/19 @ 09:[address] 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 Worsening nonhealing diabetic ulcer right lateral middle back. 2. Worsening nonhealing diabetic ulcer left lateral middle back. 3. Nonhealing diabetic ulcer right posterior flank. 4. Diabetes mellitus. 5. s/p surgical preparation right lateral middle back with excision nonhealing diabetic ulcer and reconstruction with STSG from right posterior flank (21 cm2) and placement AmnioFill Placental Connective Tissue Powder (250 mg) and placement TAYLOR NPWT and surgical preparation left lateral middle back with excision nonhealing diabetic ulcer and reconstruction with STSG from left posterior flank (48 cm2) and placement of AmnioFill Placental Connective Tissue Powder (500 mg) and placement of TAYLOR NPWT. 6. Mild compromised skin grafts. Plan: Surgery 07/23/19 - 1. Surgical preparation right lateral middle back with incision and drainage and excisional debridement nonhealing infected diabetic ulcer (66 cm2). 2. Surgical preparation left lateral middle back with incision and drainage and excisional debridement nonhealing infected diabetic ulcer (137.75 cm2). Surgical wound cultures from 07/23/19 were positive for resistant Staphylococcus epidermidis. He was started on IV Vancomycin for treatment after PICC line placed. Wound care- Wound VAC at 150mmHg. Labs from 07/22/19- Prealbumin 18.7 and HgA1c 5.9. He states his pain is well controlled with pain medication and valium for the muscle spasms. Encourage nutritional supplementation with protein to help the healing process. Followup one week. His previous history of this ulcer is: He had Amnio Carroll placed but the ulcers worsened on it. He has finished the HBO which is the only intervention thus far that he made significant progress. A wound culture was done on 05/27/19. It showed Staphylococcus epidermidis in both ulcers. He restarted his Doxycycline. Dr. Jerez did cultures on 06/18/19 when he saw him and they were negative for bacterial growth, but patient was still on Doxycycline when the cultures were obtained. Had a discussion with the patient about his persistent Staphylococcus in the ulcers despite multiple oral antibiotic treatments. He would benefit from IV antibiotics to see if that helps to jump start the healing process. In addition to the IV antibiotics, another operative debridement may be necessary in case any abnormal residual scar tissue is present that is hindering healing as well. He will think about that option and will let us know. This would necessitate admission to the hospital to get the IV antibiotics started. With persistent Staph, will start Vancomycin. In the meantime, continue the wound care and finish the Doxycycline. Prealbumin from 12/05/18 was 22.5. [id number]: [id number] Global Visit
[2019-08-05 12:05] VITALS: BP 117/60; PULSE 91; RESP 18; TEMP 36.4; BMI 28.4
--- NOTE | 2019-08-05 21:26 | PCM.WC.PN ---
Type of Wound Date of Service: 08/05/19 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: Nonhealing diabetic ulcers left lateral middle back and right lateral middle back with compromised skin grafts and nonhealing ulcer right flank. History of Wound: Surgery 07/23/19 - 1. Surgical preparation right lateral middle back with incision and drainage and excisional debridement nonhealing infected diabetic ulcer (66 cm2). 2. Surgical preparation left lateral middle back with incision and drainage and excisional debridement nonhealing infected diabetic ulcer (137.75 cm2). Wound care - VAC. For the right flank ulcer, Silver dressings daily. Operative cultures from 07/23/19 were positive for resistant Staphylococcus epidermidis (MRSE). He was started on IV Vancomycin since he has been on Doxycyline, Cleocin, and Zyvox in the past for the persistent Staph infections. Surgery 02/18/19 - 1. Surgical preparation right lateral middle back with excision nonhealing diabetic ulcer. 2. Reconstruction with STSG from right posterior flank (21 cm2) and placement AmnioFill Placental Connective Tissue Powder (250 mg) and placement TAYLOR NPWT. 3. Surgical preparation left lateral middle back with excision nonhealing diabetic ulcer. 4. Reconstruction with STSG from left posterior flank (48 cm2) and placement of AmnioFill Placental Connective Tissue Powder (500 mg) and placement of TAYLOR NPWT. He developed compromise to the healing skin grafts that necessitated HBO Treatments. He has had persistent cultures over the past year showing MRSE, Staphylococcus aureus, Methicillin resistant Staphylococcus haemolyticus, Staphylococcus lugdunensis, and Salma albicans. He has been on Doxycycline, Cleocin, and Zyvox, and Diflucan in the past. Prealbumin from 07/22/19 was 18.7. Encourage nutritonal supplementation with protein to help the healing process. His HgbA1c from 07/22/19 was 5.9. His weekly labs while on Vancomycin showed from 08/05/19 a Creatinine of 0.99, improved from 1.19 from 07/22/19. The AST from 08/05/19 was 19 and it was 17 from 07/22/19. The ALT from 08/05/19 was 29 and it was 28 from 07/22/19. The Alkaline Phosphatase from 08/05/19 was 25 and it was 37 from 07/22/19. The Total Bilirubin from 08/05/19 was 0.5 and it was 0.3 from 07/22/19. Today he denies fever. His appetite is good. Progress of Wound: Recent surgery on 07/23/19. - Physical Exam Vital Signs Temp Pulse Resp BP Pulse Ox 97.5 F L 91 18 117/60 97 08/05/19 12:05 08/05/19 12:05 08/05/19 12:05 08/05/19 12:05 07/17/19 00:26 Wound Measurements and Assessment WC - Nurse 1 - General Ulcer Measurement Start: 07/22/19 15:00 Freq: Status: Active Protocol: Activity Type Activity Date Activity User E-Sign Co-Sign Detail Recorded Client Recorded Date Recorded By Document 08/05/19 12:05 RB [id number] 08/05/19 12:10 RB 08/05/19 12:05 Wound Center Nurse 1 [Ulcer Assessment] #7 Right Flank -Combined with other wound No -Current Size (cm) - Length 1.4 -Current Size (cm) - Width 2.4 -Current Size (cm) - Depth 0.2 -Total Square Cm 3.36 -Tunneling No -Undermining/Tunneling No -Circular Undermining No -Exudate Amt Medium -Exudate Type Serosanguineous -Wound Margin Flat & Intact -Granulation Amt Medium (34-66%) -Granulation Quality Big Pool,Red -Slough/Fibrin Yes -Necrosis Amt Medium (34-66%) -Necrotic Tissue Type Adherent Slough -Structure Exposed N/A -Texture (Mayra-wound Skin Appearance) Assessed -Moisture (Mayra-wound Skin Appearance Assessed ) -Color (Mayra-wound Skin Appearance) Assessed -Temperature (Mayra-wound Skin No Abnormality Appearance) (Pt Warm) -Tenderness on Palpation (Mayra-wound No Skin Appearance) -Ulcer Cleansing Wound Cleanser -Foul Odor after Cleansing No -Anesthetic Used 4% Lidocaine Solution,5% Lidocaine Gel #6 Left Lateral Middle Back -Combined with other wound No -Current Size (cm) - Length 8 -Current Size (cm) - Width 14.2 -Current Size (cm) - Depth 1.5 -Total Square Cm 113.6 -Tunneling No -Undermining/Tunneling No -Circular Undermining No -Exudate Amt Large -Exudate Type Serosanguineous -Wound Margin Thickened & Rolled Under -Granulation Amt Medium (34-66%) -Granulation Quality Big Pool,Red -Slough/Fibrin Yes -Necrosis Amt Medium (34-66%) -Necrotic Tissue Type Adherent Slough -Structure Exposed N/A -Texture (Mayra-wound Skin Appearance) Assessed, Excoriation -Moisture (Mayra-wound Skin Appearance Assessed ) -Color (Mayra-wound Skin Appearance) Assessed -Temperature (Mayra-wound Skin No Abnormality Appearance) (Pt Warm) -Tenderness on Palpation (Mayra-wound No Skin Appearance) -Ulcer Cleansing Wound Cleanser -Foul Odor after Cleansing No -Anesthetic Used 4% Lidocaine Solution,5% Lidocaine Gel #5 Right Lateral Middle Back -Combined with other wound No -Current Size (cm) - Length 6.2 -Current Size (cm) - Width 8.5 -Current Size (cm) - Depth 1 -Total Square Cm 52.70 -Tunneling No -Undermining/Tunneling No -Circular Undermining No -Exudate Amt Large -Exudate Type Serosanguineous -Wound Margin Thickened & Rolled Under -Granulation Amt Medium (34-66%) -Granulation Quality Big Pool -Slough/Fibrin Yes -Necrosis Amt Medium (34-66%) -Necrotic Tissue Type Adherent Slough -Structure Exposed N/A -Texture (Mayra-wound Skin Appearance) Assessed, Excoriation -Moisture (Mayra-wound Skin Appearance Assessed ) -Color (Mayra-wound Skin Appearance) Assessed -Temperature (Mayra-wound Skin No Abnormality Appearance) (Pt Warm) -Tenderness on Palpation (Mayra-wound No Skin Appearance) -Ulcer Cleansing Wound Cleanser -Foul Odor after Cleansing No -Anesthetic Used 4% Lidocaine Solution,5% Lidocaine Gel WC - Nurse 2 - General Ulcer CM Notes Start: 07/22/19 15:00 Freq: Status: Active Protocol: Activity Type Activity Date Activity User E-Sign Co-Sign Detail Recorded Client Recorded Date Recorded By Document 08/05/19 12:14 [facility] [id number] 08/05/19 12:20 [facility] 08/05/19 12:14 Wound Center Nurse 2 [Procedure/Treatment] #7 Right Flank -Time 12:19 -Correct Patient Yes -Correct Side, Site, Position Yes -Correct Procedure Yes -Procedure Performed Yes -Type of Procedure Debridement -Clinical Debridement Subcutaneous -Post Debridement Size (cm) - Length 1.2 -Post Debridement Size (cm) - Width 2.5 -Post Debridement Size (cm) - Depth 0.3 -Total Square Cm 3.00 -Wound/Ulcer Outcome Not Healed -Ulcer Cleansing Rinsed/ Irrigated with Saline -Foul Odor after Cleansing No -Bioengineered Tissue No -Bleeding Controlled with Pressure -Offloading No -Treatment Response Procedure Tolerated Well #6 Left Lateral Middle Back -Time 12:15 -Correct Patient Yes -Correct Side, Site, Position Yes -Correct Procedure Yes -Procedure Performed Yes -Type of Procedure Debridement -Clinical Debridement Muscle -Post Debridement Size (cm) - Length 6.5 -Post Debridement Size (cm) - Width 14.5 -Post Debridement Size (cm) - Depth 1.0 -Total Square Cm 94.25 -Wound/Ulcer Outcome Not Healed -Ulcer Cleansing Rinsed/ Irrigated with Saline -Foul Odor after Cleansing No -Bioengineered Tissue No -Bleeding Controlled with Pressure -Offloading No -Treatment Response Procedure Tolerated Well #5 Right Lateral Middle Back -Time 12:15 -Correct Patient Yes -Correct Side, Site, Position Yes -Correct Procedure Yes -Procedure Performed Yes -Type of Procedure Debridement -Clinical Debridement Muscle -Post Debridement Size (cm) - Length 11.0 -Post Debridement Size (cm) - Width 5.5 -Post Debridement Size (cm) - Depth 1.0 -Total Square Cm 60.50 -Wound/Ulcer Outcome Not Healed -Ulcer Cleansing Rinsed/ Irrigated with Saline -Foul Odor after Cleansing No -Bioengineered Tissue No -Bleeding Controlled with Pressure -Offloading No -Treatment Response Procedure Tolerated Well [See Physician Procedure note for Specifics] Pain Scale: 0-10 Numeric [Pain] -Is Patient Pain Free? Yes Debridement Note Post-Debridement Measurements/Treatment WC - Nurse 2 - General Ulcer CM Notes Start: 07/22/19 15:00 Freq: Status: Active Protocol: Activity Type Activity Date Activity User E-Sign Co-Sign Detail Recorded Client Recorded Date Recorded By Document 07/22/19 15:21 JF [id number] 07/22/19 15:22 JF Document 07/29/19 15:17 DL [id number] 07/29/19 15:18 DL Document 08/05/19 12:14 JF [id number] 08/05/19 12:20 JF 07/22/19 07/29/19 08/05/19 15:21 15:17 12:14 Wound Center Nurse 2 #7 Right Flank -Time 15:20 12:19 -Correct Patient No Yes Yes -Correct Side, Site, Position No Yes Yes -Correct Procedure No Yes Yes -Procedure Performed No Yes Yes -Type of Procedure Debridement Debridement -Clinical Debridement Subcutaneous Subcutaneous -Post Debridement Size (cm) - Length 1.0 1.2 -Post Debridement Size (cm) - Width 2.0 2.5 -Post Debridement Size (cm) - Depth 0.2 0.3 -Total Square Cm 2.00 3.00 -Wound/Ulcer Outcome Not Healed Not Healed Not Healed -Ulcer Cleansing Rinsed/ Irrigated with Saline -Foul Odor after Cleansing No -Bioengineered Tissue No -Bleeding Controlled with Pressure -Offloading No -Treatment Response Procedure Tolerated Well #6 Left Lateral Middle Back -Time 12:15 -Correct Patient No No Yes -Correct Side, Site, Position No No Yes -Correct Procedure No No Yes -Procedure Performed No No Yes -Type of Procedure Debridement -Clinical Debridement Muscle -Post Debridement Size (cm) - Length 6.5 -Post Debridement Size (cm) - Width 14.5 -Post Debridement Size (cm) - Depth 1.0 -Total Square Cm 94.25 -Wound/Ulcer Outcome Not Healed Not Healed Not Healed -Ulcer Cleansing Rinsed/ Irrigated with Saline -Foul Odor after Cleansing No -Bioengineered Tissue No -Bleeding Controlled with Pressure -Offloading No -Treatment Response Procedure Tolerated Well #5 Right Lateral Middle Back -Time 12:15 -Correct Patient No No Yes -Correct Side, Site, Position No No Yes -Correct Procedure No No Yes -Procedure Performed No No Yes -Type of Procedure Debridement -Clinical Debridement Muscle -Post Debridement Size (cm) - Length 11.0 -Post Debridement Size (cm) - Width 5.5 -Post Debridement Size (cm) - Depth 1.0 -Total Square Cm 60.50 -Wound/Ulcer Outcome Not Healed Not Healed Not Healed -Ulcer Cleansing Rinsed/ Irrigated with Saline -Foul Odor after Cleansing No -Bioengineered Tissue No -Bleeding Controlled with Pressure -Offloading No -Treatment Response Procedure Tolerated Well Pain Scale: 0-10 Numeric Is Patient Pain Free? Yes Yes Yes Wound debrided: #5 Right lateral middle back. Laterality: Right Wound Grade/Stage: 3. Type of Debridement: Excisional debridement Anesthesia Used: 4% Lidocaine Solution Depth: Down to and including healthy tissue, in the subcutaneous layer, to muscle Percentage of wound debrided: 100 Instrument Used: 7mm curette Tissue Removed: subcutaneous tissue and muscle Severity: Fat Layer Exposed - muscle is exposed. Amount of bleeding with debridement: Mild Bleeding Controlled with: Pressure Patient tolerated procedure well - Additional Wound Wound debrided: #6 Left lateral middle back. Laterality: Left Wound Grade/Stage: 3. Type of Debridement: Excisional debridement Anesthesia Used: 4% Lidocaine Solution Depth: Down to and including healthy tissue, in the subcutaneous layer, to muscle Percentage of wound debrided: 100 Instrument Used: 7mm curette Tissue Removed: subcutaneous tissue and muscle. Severity: Fat Layer Exposed - muscle is exposed. Amount of bleeding with debridement: Mild Bleeding Controlled with: Pressure Patient tolerated procedure: Patient tolerated procedure well - Additional Wound Wound debrided: #7 Right flank. Laterality: Right Wound Grade/Stage: 2. Type of Debridement: Excisional debridement Anesthesia Used: 4% Lidocaine Solution Depth: Down to and including healthy tissue, in the subcutaneous layer Percentage of wound debrided: 100 Instrument Used: 3mm curette Tissue Removed: subcutaneous tissue. Severity: Fat Layer Exposed Amount of bleeding with debridement: Mild Bleeding Controlled with: Pressure Patient tolerated procedure: Patient tolerated procedure well Assessment/Plan Active Problems (Last Reviewed 04/30/19 @ 09:[address] 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 Nonhealing diabetic ulcer right lateral middle back. 2. Nonhealing diabetic ulcer left lateral middle back. 3. Nonhealing diabetic ulcer right posterior flank. 4. Diabetes mellitus. 5. s/p surgical preparation right lateral middle back with incision and drainage and excisional debridement nonhealing infected diabetic ulcer (66 cm2) and surgical preparation left lateral middle back with incision and drainage and excisional debridement nonhealing infected diabetic ulcer (137.75 cm2). 6. Mild compromised skin grafts. Plan: Continue the VAC to both back ulcers to be changed three times per week at 150 mmHg continuous suction. For the right flank ulcer, continue Silver dressing changes daily. Continue IV Vancomycin for the MRSE. Labs from 07/22/19- Prealbumin 18.7 and HgA1c 5.9. Encourage nutritional supplementation with protein to help the healing process. His weekly labs while on Vancomycin showed from 08/05/19 a Creatinine of 0.99, improved from 1.19 from 07/22/19. The AST from 08/05/19 was 19 and it was 17 from 07/22/19. The ALT from 08/05/19 was 29 and it was 28 from 07/22/19. The Alkaline Phosphatase from 08/05/19 was 25 and it was 37 from 07/22/19. The Total Bilirubin from 08/05/19 was 0.5 and it was 0.3 from 07/22/19. Renewed his Percocet for pain (28 tabs) and his Valium for spasm (20 tabs). Followup one week. [id number]: [id number] Pooja musc/fascia 20 sq cm/< - ICD-10 - L98.492, L03.312, E11.9, T86.829 Add On Codes: 88187 Pooja musc/fascia add-on - X 7 Units ICD-10 - L98.492, L03.312, E11.9, T86.829 Multi Select Codes - Integumentary Integumentary CPT Codes: 09897 Pooja subq tissue 20 sq cm/< - ICD-10 - L98.492, L03.312, E11.9, T86.829
[2019-08-12 11:40] VITALS: BP 112/62; PULSE 74; RESP 20; TEMP 36.2; BMI 28.4
--- NOTE | 2019-08-12 11:59 | PN.PCM_ITS ---
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 History of Wound: Surgery 07/23/19 - 1. Surgical preparation right lateral middle back with incision and drainage and excisional debridement nonhealing infected diabetic ulcer (66 cm2). 2. Surgical preparation left lateral middle back with incision and drainage and excisional debridement nonhealing infected diabetic ulcer (137.75 cm2). Wound care - VAC. For the right flank ulcer, Silver dressings daily. Operative cultures from 07/23/19 were positive for resistant Staphylococcus epidermidis (MRSE). He was started on IV Vancomycin since he has been on Doxycyline, Cleocin, and Zyvox in the past for the persistent Staph infections. Surgery 02/18/19 - 1. Surgical preparation right lateral middle back with excision nonhealing diabetic ulcer. 2. Reconstruction with STSG from right posterior flank (21 cm2) and placement AmnioFill Placental Connective Tissue Powder (250 mg) and placement TAYLOR NPWT. 3. Surgical preparation left lateral middle back with excision nonhealing diabetic ulcer. 4. Reconstruction with STSG from left posterior flank (48 cm2) and placement of AmnioFill Ru cental Connective Tissue Powder (500 mg) and placement of TAYLOR NPWT. He developed compromise to the healing skin grafts that necessitated HBO Treatments. He has had persistent cultures over the past year showing MRSE, Staphylococcus aureus, Methicillin resistant Staphylococcus haemolyticus, Staphylococcus lugdunensis, and Salma albicans. He has been on Doxycycline, Cleocin, and Zyvox, and Diflucan in the past. Prealbumin from 07/22/19 was 18.7. Encourage nutritonal supplementation with protein to help the healing process. His HgbA1c from 07/22/19 was 5.9. His weekly labs while on Vancomycin showed from 08/05/19 a Creatinine of 0.99, improved from 1.19 from 07/22/19. The AST from 08/05/19 was 19 and it was 17 from 07/22/19. The ALT from 08/05/19 was 29 and it was 28 from 07/22/19. The Alkaline Phosphatase from 08/05/19 was 25 and it was 37 from 07/22/19. The Total Bilirubin from 08/05/19 was 0.5 and it was 0.3 from 07/22/19. Today he denies fever. His appetite is good. Progress of Wound: Recent surgery on 07/23/19. Depth decreasing bilateral back ulcers. Right flank ulcer stable. - Physical Exam Vital Signs Temp Pulse Resp BP Pulse Ox 97.1 F L 74 20 H 112/62 97 08/12/19 11:40 08/12/19 11:40 08/12/19 11:40 08/12/19 11:40 07/17/19 00:26 General: Alert, Oriented x3, Cooperative HEENT: Atraumatic Oral: Moist Mucosa Lungs: Normal air movement Cardiovascular: Regular rate Extremities: No edema, Capillary Refill Less than 3 Seconds Skin: Ulcer/ Wound - Right lateral middle back ulcer, left lateral middle back ulcer and right flank ulcer are stable and beefy pink. Wound Measurements and Assessment WC - Nurse 1 - General Ulcer Measurement Start: 07/22/19 15:00 Freq: Status: Active Protocol: Activity Type Activity Date Activity User E-Sign Co-Sign Detail Recorded Client Recorded Date Recorded By Document 08/12/19 11:40 DL [id number] 08/12/19 11:54 DL 08/12/19 11:40 Wound Center Nurse 1 [Ulcer Assessment] #7 R Lower Side -Current Size (cm) - Length 1 -Current Size (cm) - Width 2.6 -Current Size (cm) - Depth 0.3 -Total Square Cm 2.6 -Photo Taken No -Exudate Amt Small -Exudate Type Serosanguineous -Wound Margin Distinct, Outline Attached -Granulation Amt Large (67-100%) -Granulation Quality Red -Necrosis Amt Small (1-33%) -Necrotic Tissue Type Adherent Slough -Structure Exposed N/A -Texture (Mayra-wound Skin Appearance) Excoriation, Scarring -Moisture (Mayra-wound Skin Appearance No Abnormality ) -Color (Mayra-wound Skin Appearance) No Abnormality, Rubor -Temperature (Mayra-wound Skin No Abnormality Appearance) (Pt Warm) -Tenderness on Palpation (Mayra-wound No Skin Appearance) -Ulcer Cleansing Wound Cleanser -Foul Odor after Cleansing No -Anesthetic Used 4% Lidocaine Solution 6. L lumbar back -Current Size (cm) - Length 6.4 -Current Size (cm) - Width 14 -Current Size (cm) - Depth 0.5 -Total Square Cm 89.6 -Photo Taken No -Exudate Amt Medium -Exudate Type Serosanguineous -Wound Margin Distinct, Outline Attached -Granulation Amt Large (67-100%) -Granulation Quality Red -Necrosis Amt Small (1-33%) -Necrotic Tissue Type Adherent Slough -Structure Exposed N/A -Texture (Mayra-wound Skin Appearance) Excoriation, Scarring -Moisture (Mayra-wound Skin Appearance No Abnormality ) -Color (Mayra-wound Skin Appearance) Rubor -Temperature (Mayra-wound Skin No Abnormality Appearance) (Pt Warm) -Tenderness on Palpation (Mayra-wound No Skin Appearance) -Ulcer Cleansing Wound Cleanser -Foul Odor after Cleansing No -Anesthetic Used 4% Lidocaine Solution 5. R scapula -Current Size (cm) - Length 5 -Current Size (cm) - Width 11 -Current Size (cm) - Depth 0.9 -Total Square Cm 55 -Photo Taken No -Exudate Amt Medium -Exudate Type Serosanguineous -Wound Margin Distinct, Outline Attached -Granulation Amt Large (67-100%) -Granulation Quality Red -Necrosis Amt Small (1-33%) -Necrotic Tissue Type Adherent Slough -Structure Exposed N/A -Texture (Mayra-wound Skin Appearance) Excoriation, Scarring -Moisture (Mayra-wound Skin Appearance No Abnormality ) -Color (Mayra-wound Skin Appearance) No Abnormality -Temperature (Mayra-wound Skin No Abnormality Appearance) (Pt Warm) -Tenderness on Palpation (Mayra-wound No Skin Appearance) -Ulcer Cleansing Wound Cleanser -Foul Odor after Cleansing No -Anesthetic Used 5% Lidocaine Gel Neurological: Neuro grossly intact Psych/Mental Status: Normal Affect, Appropriate Debridement Note Post-Debridement Measurements/Treatment WC - Nurse 2 - General Ulcer CM Notes Start: 07/22/19 15:00 Freq: Status: Active Protocol: Activity Type Activity Date Activity User E-Sign Co-Sign Detail Recorded Client Recorded Date Recorded By Document 07/22/19 15:21 JF [id number] 07/22/19 15:22 JF Document 07/29/19 15:17 DL [id number] 07/29/19 15:18 DL Document 08/05/19 12:14 JF [id number] 08/05/19 12:20 JF 07/22/19 07/29/19 08/05/19 15:21 15:17 12:14 Wound Center Nurse 2 #7 R Lower Side -Time 15:20 12:19 -Correct Patient No Yes Yes -Correct Side, Site, Position No Yes Yes -Correct Procedure No Yes Yes -Procedure Performed No Yes Yes -Type of Procedure Debridement Debridement -Clinical Debridement Subcutaneous Subcutaneous -Post Debridement Size (cm) - Length 1.0 1.2 -Post Debridement Size (cm) - Width 2.0 2.5 -Post Debridement Size (cm) - Depth 0.2 0.3 -Total Square Cm 2.00 3.00 -Wound/Ulcer Outcome Not Healed Not Healed Not Healed -Ulcer Cleansing Rinsed/ Irrigated with Saline -Foul Odor after Cleansing No -Bioengineered Tissue No -Bleeding Controlled with Pressure -Offloading No -Treatment Response Procedure Tolerated Well 6. L lumbar back -Time 12:15 -Correct Patient No No Yes -Correct Side, Site, Position No No Yes -Correct Procedure No No Yes -Procedure Performed No No Yes -Type of Procedure Debridement -Clinical Debridement Muscle -Post Debridement Size (cm) - Length 6.5 -Post Debridement Size (cm) - Width 14.5 -Post Debridement Size (cm) - Depth 1.0 -Total Square Cm 94.25 -Wound/Ulcer Outcome Not Healed Not Healed Not Healed -Ulcer Cleansing Rinsed/ Irrigated with Saline -Foul Odor after Cleansing No -Bioengineered Tissue No -Bleeding Controlled with Pressure -Offloading No -Treatment Response Procedure Tolerated Well 5. R scapula -Time 12:15 -Correct Patient No No Yes -Correct Side, Site, Position No No Yes -Correct Procedure No No Yes -Procedure Performed No No Yes -Type of Procedure Debridement -Clinical Debridement Muscle -Post Debridement Size (cm) - Length 11.0 -Post Debridement Size (cm) - Width 5.5 -Post Debridement Size (cm) - Depth 1.0 -Total Square Cm 60.50 -Wound/Ulcer Outcome Not Healed Not Healed Not Healed -Ulcer Cleansing Rinsed/ Irrigated with Saline -Foul Odor after Cleansing No -Bioengineered Tissue No -Bleeding Controlled with Pressure -Offloading No -Treatment Response Procedure Tolerated Well Pain Scale: 0-10 Numeric Is Patient Pain Free? Yes Yes Yes Wound debrided: Lateral middle back ulcer Laterality: Right Type of Debridement: Excisional debridement Anesthesia Used: 4% Lidocaine Solution, 5% Lidocaine Gel Depth: Down to and including healthy tissue, in the subcutaneous layer, to muscle Percentage of wound debrided: 100 Instrument Used: 7mm curette Tissue Removed: Subcutaneous tissue and slough into the muscle Severity: Fat Layer Exposed Amount of bleeding with debridement: Mild Bleeding Controlled with: Pressure Patient tolerated procedure well - Additional Wound Wound debrided: Lateral middle back ulcer Laterality: Left Type of Debridement: Excisional debridement Anesthesia Used: 4% Lidocaine Solution, 5% Lidocaine Gel Depth: Down to and including healthy tissue, in the subcutaneous layer, to muscle Percentage of wound debrided: 100 Instrument Used: 7mm curette Tissue Removed: Subcutaneous tissue and slough into the muscle. Severity: Fat Layer Exposed Amount of bleeding with debridement: Mild Bleeding Controlled with: Pressure Patient tolerated procedure: Patient tolerated procedure well - Additional Wound Wound debrided: Flank ulcer Laterality: Right Type of Debridement: Excisional debridement Anesthesia Used: 5% Lidocaine Gel Depth: Down to and including healthy tissue, in the subcutaneous layer Percentage of wound debrided: 100 Instrument Used: 3mm curette Tissue Removed: Subcutaneous tissue and slough Severity: Fat Layer Exposed Amount of bleeding with debridement: Mild Bleeding Controlled with: Pressure Patient tolerated procedure: Patient tolerated procedure well Assessment/Plan Assessment: 1. Nonhealing diabetic ulcer right lateral middle back. 2. Nonhealing diabetic ulcer left lateral middle back. 3. Nonhealing diabetic ulcer right posterior flank. 4. Diabetes mellitus. 5. s/p surgical preparation right lateral middle back with incision and drainage and excisional debridement nonhealing infected diabetic ulcer (66 cm2) and surgical preparation left lateral middle back with incision and drainage and excisional debridement nonhealing infected diabetic ulcer (137.75 cm2). 6. Mild compromised skin grafts. Plan: Continue the VAC to both back ulcers to be changed three times per week at 150 mmHg continuous suction. For the right flank ulcer, continue Silver dressing changes daily. Continue IV Vancomycin for the MRSE. Labs from 07/22/19- Prealbumin 18.7 and HgA1c 5.9. Encourage nutritional supplementation with protein to help the healing process. His weekly labs while on Vancomycin showed from 08/05/19 a Creatinine of 0.99, improved from 1.19 from 07/22/19. The AST from 08/05/19 was 19 and it was 17 from 07/22/19. The ALT from 08/05/19 was 29 and it was 28 from 07/22/19. The Alkaline Phosphatase from 08/05/19 was 25 and it was 37 from 07/22/19. The Total Bilirubin from 08/05/19 was 0.5 and it was 0.3 from 07/22/19. Followup one week. [id number]: [id number] Pooja musc/fascia 20 sq cm/< - right and left lateral middle back ulcers Add On Codes: 29526 Pooja musc/fascia add-on - x7 Multi Select Codes - Integumentary Integumentary CPT Codes: 96106 Pooja subq tissue 20 sq cm/< - right flank ulcer
[2019-08-12 12:57] LABS: Erythrocyte Sedimentation Rate 23 mm/hr (0-20)
[2019-08-12 12:58] LABS: Hematocrit 37.6 % (40-54); Hemoglobin 11.9 g/dL (13.0-16.5); Mean Corp Hgb Conc 31.6 g/dL (32-36); Mean Corpuscular Hgb 28.8 pg (27.0-32.0); Platelet Count 274 K/mm3 (150-450); RBC Distribution Width CV 12.8 % (11.6-14.6); Red Blood Count 4.13 M/mm3 (4.6-6.2); White Blood Count 5.3 K/mm3 (4.4-11.0)
[2019-08-12 13:09] LABS: Vancomycin, Trough Level 12.2 ug/mL (5.0-15.0)
[2019-08-12 13:22] LABS: ALB/GLOB Ratio 0.9 RATIO (0.9-2.4); AST(SGOT) 17 U/L (15-37); Alanine Aminotransfer ALT/SGPT 28 U/L (16-61); Albumin, Serum 3.4 g/dL (3.2-5.0); Alkaline Phosphatase 28 U/L (45-117); Anion Gap 4 (5-15); BUN 18 mg/dL (7-18); BUN/Creat Ratio 17.5 RATIO (10-20); Calcium,Total 9.1 mg/dL (8.5-10.1); Chloride 107 mmol/L (98-107); Creatinine, Serum 1.03 mg/dL (0.70-1.30); EST Glomerular Filtration Rate 78 mL/min (>60); Est Glom Filt Rate - Afr Amer 95 mL/min (>60); Globulin 3.7 g/dL (2.2-4.2); Glucose 150 mg/dL (74-106); Potassium 3.5 mmol/L (3.5-5.1); Protein, Total 7.1 g/dL (6.4-8.2); Sodium Level 141 mmol/L (136-145)
== END 2019-08-15 23:59 ==
LOC: WC 11:30
PROVIDERS: Family Provider Family Medicine; PCP Family Medicine; Referring Provider Nurse Practitioner Family; Visit Provider Nurse Practitioner Family
DX: E11.622 Type 2 diabetes mellitus with other skin ulcer (principal); T86.821 Skin graft (allograft) (autograft) failure; Y83.2 Surgical operation with anastomosis, bypass or graft as the cause of abnormal reaction of the patient, or of later complication, without mention of misadventure at the time of the procedure; L98.422 Non-pressure chronic ulcer of back with fat layer exposed
CPT/HCPCS: 11042; 11043; 11046; 80053; 80202; 85027; 85652; 86140; 97606; 99214; G0463

== ENCOUNTER 2019-09-02 10:51 | Outpatient (RCR) | payer OTHER, SELFPAY ==
[2019-08-19 13:26] VITALS: BMI 28.2
[2019-08-20 13:44] LABS: Hematocrit 37.1 % (40-54); Hemoglobin 11.5 g/dL (13.0-16.5); Mean Corpuscular Hgb 28.8 pg (27.0-32.0); Mean Corpuscular Volume 92.8 fL (80-94); Mean Platelet Vol. 9.9 fl (6.2-12.0); Platelet Count 225 K/mm3 (150-450); RBC Distribution Width CV 12.8 % (11.6-14.6); RBC Distribution Width SD 43.8 fl (35.1-43.9); White Blood Count 4.4 K/mm3 (4.4-11.0)
[2019-08-20 13:57] LABS: Vancomycin, Trough Level 12.4 ug/mL (5.0-15.0)
[2019-08-20 14:01] LABS: ALB/GLOB Ratio 0.9 RATIO (0.9-2.4); AST(SGOT) 18 U/L (15-37); Alanine Aminotransfer ALT/SGPT 29 U/L (16-61); Albumin, Serum 3.3 g/dL (3.2-5.0); Alkaline Phosphatase 22 U/L (45-117); Anion Gap 4 (5-15); BUN 18 mg/dL (7-18); BUN/Creat Ratio 17.5 RATIO (10-20); Calcium,Total 8.8 mg/dL (8.5-10.1); Chloride 106 mmol/L (98-107); Creatinine, Serum 1.03 mg/dL (0.70-1.30); EST Glomerular Filtration Rate 78 mL/min (>60); Est Glom Filt Rate - Afr Amer 95 mL/min (>60); Globulin 3.7 g/dL (2.2-4.2); Glucose 121 mg/dL (74-106); Potassium 4.4 mmol/L (3.5-5.1); Sodium Level 139 mmol/L (136-145)
[2019-08-20 14:19] LABS: Erythrocyte Sedimentation Rate 17 mm/hr (0-20)
[2019-09-02 11:13] LABS: Erythrocyte Sedimentation Rate 28 mm/hr (0-20)
[2019-09-02 11:14] LABS: Hematocrit 36.4 % (40-54); Hemoglobin 11.7 g/dL (13.0-16.5); Mean Corp Hgb Conc 32.1 g/dL (32-36); Mean Corpuscular Hgb 28.7 pg (27.0-32.0); Mean Corpuscular Volume 89.4 fL (80-94); Mean Platelet Vol. 9.7 fl (6.2-12.0); Platelet Count 238 K/mm3 (150-450); RBC Distribution Width CV 12.8 % (11.6-14.6); RBC Distribution Width SD 42.2 fl (35.1-43.9); Red Blood Count 4.07 M/mm3 (4.6-6.2); White Blood Count 4.7 K/mm3 (4.4-11.0)
[2019-09-02 11:17] LABS: ALB/GLOB Ratio 0.9 RATIO (0.9-2.4); AST(SGOT) 16 U/L (15-37); Alanine Aminotransfer ALT/SGPT 27 U/L (16-61); Albumin, Serum 3.5 g/dL (3.2-5.0); Alkaline Phosphatase 24 U/L (45-117); Anion Gap 5 (5-15); BUN 20 mg/dL (7-18); BUN/Creat Ratio 21.1 RATIO (10-20); Calcium,Total 8.8 mg/dL (8.5-10.1); Chloride 108 mmol/L (98-107); Creatinine, Serum 0.95 mg/dL (0.70-1.30); EST Glomerular Filtration Rate 86 mL/min (>60); Est Glom Filt Rate - Afr Amer 104 mL/min (>60); Globulin 3.7 g/dL (2.2-4.2); Glucose 90 mg/dL (74-106); Potassium 3.6 mmol/L (3.5-5.1); Protein, Total 7.2 g/dL (6.4-8.2); Sodium Level 140 mmol/L (136-145); Vancomycin, Trough Level 10.8 ug/mL (5.0-15.0)
== END 2019-09-02 18:00 | disposition home or self-care (01) ==
LOC: HHLAB 10:51
PROVIDERS: PCP Surgery; Referring Provider Family Medicine; Visit Provider Family Medicine
DX: T86.821 Skin graft (allograft) (autograft) failure (principal); E11.622 Type 2 diabetes mellitus with other skin ulcer
CPT/HCPCS: 80053; 80202; 85027; 85652; 86140

== ENCOUNTER 2019-09-02 14:00 | Outpatient (RCR) | payer OTHER, SELFPAY ==
[2019-08-16 00:09] VITALS: BP 112/62; PULSE 74; RESP 20; TEMP 36.2; O2SAT 97; BMI 28.2
[2019-08-19 13:26] VITALS: BP 113/69; PULSE 77; RESP 18; TEMP 36.6; BMI 28.2
--- NOTE | 2019-08-19 14:41 | PN.PCM_ITS ---
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 Comment: Nonhealing ulcers right lateral middle back and left lateral middle back (2) Dehiscence of external surgical wound Status: Chronic Current Visit: Yes Qualifiers: Encounter type: initial encounter Qualified Code(s): T81.31XA - Disruption of external operation (surgical) wound, not elsewhere classified, initial encounter Code(s): T81.31XA - Disruption of external operation (surgical) wound, not elsewhere classified, initial encounter (3) Cellulitis of mid back region Status: Acute Current Visit: Yes Code(s): L03.312 - Cellulitis of back [any part except buttock] (4) Type 2 diabetes mellitus Status: Chronic Current Visit: Yes Qualifiers: Code(s): E11.9 - Type 2 diabetes mellitus without complications Type of Wound Date of Service: 08/19/19 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: Nonhealing diabetic ulcers left lateral middle back and right lateral middle back with compromised skin grafts and nonhealing ulcer right flank. History of Wound: Surgery 07/23/19 - 1. Surgical preparation right lateral middle back with incision and drainage and excisional debridement nonhealing infected diabetic ulcer (66 cm2). 2. Surgical preparation left lateral middle back with incision and drainage and excisional debridement nonhealing infected diabetic ulcer (137.75 cm2). Wound care - VAC to the right and left middle lateral back ulcers. For the right flank ulcer will start daily Medihoney covered by gauze. Operative cultures from 07/23/19 were positive for resistant Staphylococcus epidermidis (MRSE). He was started on IV Vancomycin since he has been on Doxycyline, Cleocin, and Zyvox in the past for the persistent Staph infections. Surgery 02/18/19 - 1. Surgical preparation right lateral middle back with excision nonhealing diabetic ulcer. 2. Reconstruction with STSG from right posterior flank (21 cm2) and placement AmnioFill Placental Connective Tissue Powder (250 mg) and placement TAYLOR NPWT. 3. Surgical preparation left lateral middle back with excision nonhealing diabetic ulcer. 4. Reconstruction with STSG from left posterior flank (48 cm2) and placement of AmnioFill Placental Connective Tissue Powder (500 mg) and placement of TAYLOR NPWT. He developed compromise to the healing skin grafts that necessitated HBO Treatments. He has had persistent cultures over the past year showing MRSE, Staphylococcus aureus, Methicillin resistant Staphylococcus haemolyticus, Staphylococcus lugdunensis, and Salma albicans. He has been on Doxycycline, Cleocin, and Zyvox, and Diflucan in the past. Prealbumin from 07/22/19 was 18.7. Encourage nutritonal supplementation with protein to help the healing process. His HgbA1c from 07/22/19 was 5.9. His weekly labs while on Vancomycin showed from 08/12/19 a Creatinine of 1.03. The AST from 08/12/19 was 17. The ALT from 08/12/19 was 28. The Alkaline Phosphatase from 08/12/19 was 28. The Total Bilirubin from 08/12/19 was 0.3. They were not able to obtain labs today, they will try to draw them tomorrow. Today he denies fever. His appetite is good. Progress of Wound: Recent surgery on 07/23/19. Ulcers are stable. - Physical Exam Vital Signs Temp Pulse Resp BP Pulse Ox 97.8 F 77 18 113/69 97 08/19/19 13:26 08/19/19 13:26 08/19/19 13:26 08/19/19 13:26 08/16/19 00:09 General: Alert, Oriented x3, Cooperative HEENT: Atraumatic Oral: Moist Mucosa Lungs: Normal air movement Cardiovascular: Regular rate Abdomen: Soft Extremities: No edema, Capillary Refill Less than 3 Seconds Skin: Ulcer/ Wound - Left middle lateral back ulcer, right middle lateral back ulcer, and right flank ulcer (which is increasing in pain and tenderness). Wound Measurements and Assessment WC - Nurse 1 - General Ulcer Measurement Start: 08/19/19 13:25 Freq: Status: Active Protocol: Activity Type Activity Date Activity User E-Sign Co-Sign Detail Recorded Client Recorded Date Recorded By Document 08/19/19 13:26 [facility] [id number] 08/19/19 13:28 [facility] 08/19/19 13:26 Wound Center Nurse 1 [Ulcer Assessment] #7 R Lower Side -Combined with other wound No -Current Size (cm) - Length 1.5 -Current Size (cm) - Width 2.9 -Current Size (cm) - Depth 0.2 -Total Square Cm 4.35 -Photo Taken No -Epithelialization None Present -Tunneling No -Undermining/Tunneling No -Circular Undermining No -Exudate Amt Small -Exudate Type Serosanguineous -Wound Margin Flat & Intact -Granulation Amt Large (67-100%) -Granulation Quality Red -Slough/Fibrin Yes -Necrosis Amt Small (1-33%) -Necrotic Tissue Type Adherent Slough -Structure Exposed N/A -Texture (Mayra-wound Skin Appearance) Assessed -Moisture (Mayra-wound Skin Appearance Assessed,Dry/ ) Scaly -Color (Mayra-wound Skin Appearance) Assessed -Temperature (Mayra-wound Skin No Abnormality Appearance) (Pt Warm) -Tenderness on Palpation (Mayra-wound No Skin Appearance) -Ulcer Cleansing Wound Cleanser -Foul Odor after Cleansing No -Anesthetic Used 4% Lidocaine Solution 6. L lumbar back -Combined with other wound No -Current Size (cm) - Length 8.0 -Current Size (cm) - Width 13.6 -Current Size (cm) - Depth 0.4 -Total Square Cm 108.80 -Photo Taken No -Epithelialization Small 1-33% -Tunneling No -Undermining/Tunneling No -Circular Undermining No -Exudate Amt Medium -Exudate Type Serosanguineous -Wound Margin Flat & Intact -Granulation Amt Large (67-100%) -Granulation Quality Red -Slough/Fibrin Yes -Necrosis Amt Small (1-33%) -Necrotic Tissue Type Adherent Slough -Structure Exposed Fascia,Muscle -Texture (Mayra-wound Skin Appearance) Assessed -Moisture (Mayra-wound Skin Appearance Assessed,Dry/ ) Scaly -Color (Mayra-wound Skin Appearance) Assessed -Temperature (Mayra-wound Skin No Abnormality Appearance) (Pt Warm) -Tenderness on Palpation (Mayra-wound No Skin Appearance) -Ulcer Cleansing Wound Cleanser -Foul Odor after Cleansing No -Anesthetic Used 4% Lidocaine Solution 5. R scapula -Combined with other wound No -Current Size (cm) - Length 5.5 -Current Size (cm) - Width 11 -Current Size (cm) - Depth 0.3 -Total Square Cm 60.5 -Photo Taken No -Epithelialization Small 1-33% -Tunneling No -Undermining/Tunneling No -Circular Undermining No -Exudate Amt Medium -Exudate Type Serosanguineous -Wound Margin Flat & Intact -Granulation Amt Large (67-100%) -Granulation Quality Red -Slough/Fibrin Yes -Necrosis Amt Small (1-33%) -Necrotic Tissue Type Adherent Slough -Structure Exposed N/A -Texture (Mayra-wound Skin Appearance) Assessed -Moisture (Mayra-wound Skin Appearance Assessed,Dry/ ) Scaly -Color (Mayra-wound Skin Appearance) Assessed -Temperature (Mayra-wound Skin No Abnormality Appearance) (Pt Warm) -Tenderness on Palpation (Mayra-wound No Skin Appearance) -Ulcer Cleansing Wound Cleanser -Foul Odor after Cleansing No -Anesthetic Used 4% Lidocaine Solution [Edema Assessment] -Lower Limb Edema Present NA WC - Nurse 2 - General Ulcer CM Notes Start: 08/19/19 13:25 Freq: Status: Active Protocol: Activity Type Activity Date Activity User E-Sign Co-Sign Detail Recorded Client Recorded Date Recorded By Document 08/19/19 13:50 [id number] 08/19/19 14:03 08/19/19 13:50 Wound Center Nurse 2 [Procedure/Treatment] #7 R Lower Side -Time 13:59 -Correct Patient Yes -Correct Side, Site, Position Yes -Correct Procedure Yes -Procedure Performed Yes -Type of Procedure Debridement -Clinical Debridement Subcutaneous -Post Debridement Size (cm) - Length 1.4 -Post Debridement Size (cm) - Width 3.0 -Post Debridement Size (cm) - Depth 0.3 -Total Square Cm 4.20 -Wound/Ulcer Outcome Not Healed -Ulcer Cleansing Rinsed/ Irrigated with Saline -Foul Odor after Cleansing No -Bioengineered Tissue No -Bleeding Controlled with Pressure -Offloading No -Treatment Response Procedure Tolerated Well 6. L lumbar back -Time 13:59 -Correct Patient Yes -Correct Side, Site, Position Yes -Correct Procedure Yes -Procedure Performed Yes -Type of Procedure Debridement -Clinical Debridement Muscle -Post Debridement Size (cm) - Length 14.3 -Post Debridement Size (cm) - Width 6.0 -Post Debridement Size (cm) - Depth 1.5 -Total Square Cm 85.80 -Wound/Ulcer Outcome Not Healed -Ulcer Cleansing Rinsed/ Irrigated with Saline -Foul Odor after Cleansing No -Bioengineered Tissue No -Bleeding Controlled with Pressure -Offloading No -Treatment Response Procedure Tolerated Well 5. R scapula -Time 14:00 -Correct Patient Yes -Correct Side, Site, Position Yes -Correct Procedure Yes -Procedure Performed Yes -Type of Procedure Debridement -Clinical Debridement Muscle -Post Debridement Size (cm) - Length 11.4 -Post Debridement Size (cm) - Width 5.0 -Post Debridement Size (cm) - Depth 1.0 -Total Square Cm 57.00 -Wound/Ulcer Outcome Not Healed -Ulcer Cleansing Rinsed/ Irrigated with Saline -Foul Odor after Cleansing No -Bioengineered Tissue No -Bleeding Controlled with Pressure -Other tunnel 10-12:00 2.5cm -Offloading No -Treatment Response Procedure Tolerated Well [See Physician Procedure note for Specifics] Pain Scale: 0-10 Numeric [Pain] -Is Patient Pain Free? Yes Musculoskeletal: No Tenderness to Palpation of Joints or Extremities Neurological: Neuro grossly intact Psych/Mental Status: Normal Affect, Appropriate Debridement Note Post-Debridement Measurements/Treatment WC - Nurse 2 - General Ulcer CM Notes Start: 08/19/19 13:25 Freq: Status: Active Protocol: Activity Type Activity Date Activity User E-Sign Co-Sign Detail Recorded Client Recorded Date Recorded By Document 08/19/19 13:50 [id number] 08/19/19 14:03 [facility] 08/19/19 13:50 Wound Center Nurse 2 #7 R Lower Side -Time 13:59 -Correct Patient Yes -Correct Side, Site, Position Yes -Correct Procedure Yes -Procedure Performed Yes -Type of Procedure Debridement -Clinical Debridement Subcutaneous -Post Debridement Size (cm) - Length 1.4 -Post Debridement Size (cm) - Width 3.0 -Post Debridement Size (cm) - Depth 0.3 -Total Square Cm 4.20 -Wound/Ulcer Outcome Not Healed -Ulcer Cleansing Rinsed/ Irrigated with Saline -Foul Odor after Cleansing No -Bioengineered Tissue No -Bleeding Controlled with Pressure -Offloading No -Treatment Response Procedure Tolerated Well 6. L lumbar back -Time 13:59 -Correct Patient Yes -Correct Side, Site, Position Yes -Correct Procedure Yes -Procedure Performed Yes -Type of Procedure Debridement -Clinical Debridement Muscle -Post Debridement Size (cm) - Length 14.3 -Post Debridement Size (cm) - Width 6.0 -Post Debridement Size (cm) - Depth 1.5 -Total Square Cm 85.80 -Wound/Ulcer Outcome Not Healed -Ulcer Cleansing Rinsed/ Irrigated with Saline -Foul Odor after Cleansing No -Bioengineered Tissue No -Bleeding Controlled with Pressure -Offloading No -Treatment Response Procedure Tolerated Well 5. R scapula -Time 14:00 -Correct Patient Yes -Correct Side, Site, Position Yes -Correct Procedure Yes -Procedure Performed Yes -Type of Procedure Debridement -Clinical Debridement Muscle -Post Debridement Size (cm) - Length 11.4 -Post Debridement Size (cm) - Width 5.0 -Post Debridement Size (cm) - Depth 1.0 -Total Square Cm 57.00 -Wound/Ulcer Outcome Not Healed -Ulcer Cleansing Rinsed/ Irrigated with Saline -Foul Odor after Cleansing No -Bioengineered Tissue No -Bleeding Controlled with Pressure -Other tunnel 10-12:00 2.5cm -Offloading No -Treatment Response Procedure Tolerated Well Pain Scale: 0-10 Numeric Is Patient Pain Free? Yes Wound debrided: middle lateral back ulcer Laterality: Right Type of Debridement: Excisional debridement Anesthesia Used: 4% Lidocaine Solution, 5% Lidocaine Gel Depth: Down to and including healthy tissue, in the subcutaneous layer, to mus eddie Percentage of wound debrided: 100 Instrument Used: 7mm curette Tissue Removed: Subcutaneous tissue and slough into the muscle Severity: Fat Layer Exposed Amount of bleeding with debridement: Mild Patient tolerated procedure well There is a new area of undermining at 10-12 o'clock that has increased tenderness with debridement and palpation. - Additional Wound Wound debrided: Lateral middle back ulcer Laterality: Left Type of Debridement: Excisional debridement Anesthesia Used: 4% Lidocaine Solution, 5% Lidocaine Gel Depth: Down to and including healthy tissue, in the subcutaneous layer, to muscle Percentage of wound debrided: 100 Instrument Used: 7mm curette Tissue Removed: Subcutaneous tissue and slough into the muscle. Severity: Fat Layer Exposed Amount of bleeding with debridement: Mild Patient tolerated procedure: Patient tolerated procedure well - Additional Wound Wound debrided: Flank ulcer Laterality: Right Type of Debridement: Excisional debridement Anesthesia Used: 4% Lidocaine Solution, 5% Lidocaine Gel Depth: Down to and including healthy tissue, in the subcutaneous layer Percentage of wound debrided: 100 Instrument Used: 3mm curette Tissue Removed: Subcutaneous tissue and slough Severity: Fat Layer Exposed Amount of bleeding with debridement: Mild Bleeding Controlled with: Pressure Patient tolerated procedure: Patient did not tolerate procedure well - Patient is having increased pain and sensitivity with debridment in this area. Assessment/Plan Active Problems (Last Reviewed 04/30/19 @ 09:[address] 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 Nonhealing diabetic ulcer right lateral middle back. 2. Nonhealing diabetic ulcer left lateral middle back. 3. Nonhealing diabetic ulcer right posterior flank. 4. Diabetes mellitus. 5. s/p surgical preparation right lateral middle back with incision and drainage and excisional debridement nonhealing infected diabetic ulcer (66 cm2) and surgical preparation left lateral middle back with incision and drainage and excisional debridement nonhealing infected diabetic ulcer (137.75 cm2). 6. Mild compromised skin grafts. Plan: Continue the VAC to both back ulcers to be changed three times per week at 150 mmHg continuous suction. Make sure to have foam placed in the undermining area on the right middle lateral back ulcer. For the right flank ulcer, will stop Silver and start daily Medihoney to see if this will help with the pain and discomfort of this area. Continue IV Vancomycin for the MRSE. Labs from 07/22/19- Prealbumin 18.7 and HgA1c 5.9. Encourage nutritional supplementation with protein to help the healing process. His weekly labs while on Vancomycin showed from His weekly labs while on Vancomycin showed from 08/12/19 a Creatinine of 1.03. The AST from 08/12/19 was 17. The ALT from 08/12/19 was 28. The Alkaline Phosphatase from 08/12/19 was 28. The Total Bilirubin from 08/12/19 was 0.3. They were not able to obtain labs today, they will try to draw them tomorrow. Renewed Percocet (21) and Valium (14). PDMP reviewed. Followup one week. [id number]: [id number] Pooja musc/fascia 20 sq cm/< - Right middle and left middle lateral back ulcers Add On Codes: 77841 Pooja musc/fascia add-on - Right middle and left middle lateral back ulcers Multi Select Codes - Integumentary Integumentary CPT Codes: 84310 Pooja subq tissue 20 sq cm/< - right flank ulcer
[2019-08-26 13:45] VITALS: BP 112/62; PULSE 75; RESP 20; TEMP 36.7; BMI 28.2
--- NOTE | 2019-08-26 14:54 | PN.PCM_ITS ---
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 Comment: Nonhealing ulcers right lateral middle back and left lateral middle back (2) Dehiscence of external surgical wound Status: Chronic Qualifiers: Encounter type: initial encounter Qualified Code(s): T81.31XA - Disruption of external operation (surgical) wound, not elsewhere classified, initial encounter Code(s): T81.31XA - Disruption of external operation (surgical) wound, not elsewhere classified, initial encounter (3) Type 2 diabetes mellitus Status: Chronic Qualifiers: Code(s): E11.9 - Type 2 diabetes mellitus without complications Type of Wound Date of Service: 08/26/19 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: Nonhealing diabetic ulcers left lateral middle back and right lateral middle back with compromised skin grafts and nonhealing ulcer right flank. History of Wound: Surgery 07/23/19 - 1. Surgical preparation right lateral middle back with incision and drainage and excisional debridement nonhealing infected diabetic ulcer (66 cm2). 2. Surgical preparation left lateral middle back with incision and drainage and excisional debridement nonhealing infected diabetic ulcer (137.75 cm2). Wound care - VAC to the right and left middle lateral back ulcers. For the right flank ulcer will continue daily Medihoney covered by gauze. Operative cultures from 07/23/19 were positive for resistant Staphylococcus epidermidis (MRSE). He was started on IV Vancomycin since he has been on Doxycyline, Cleocin, and Zyvox in the past for the persistent Staph infections. Surgery 02/18/19 - 1. Surgical preparation right lateral middle back with excision nonhealing diabetic ulcer. 2. Reconstruction with STSG from right posterior flank (21 cm2) and placement AmnioFill Placental Connective Tissue Powder (250 mg) and placement TAYLOR NPWT. 3. Surgical preparation left lateral middle back with excision nonhealing diabetic ulcer. 4. Reconstruction with STSG from left posterior flank (48 cm2) and placement of AmnioFill Placental Connective Tissue Powder (500 mg) and placement of TAYLOR NPWT. He developed compromise to the healing skin grafts that necessitated HBO Treatments. He has had persistent cultures over the past year showing MRSE, Staphylococcus aureus, Methicillin resistant Staphylococcus haemolyticus, Staph ylococcus lugdunensis, and Salma albicans. He has been on Doxycycline, Cleocin, and Zyvox, and Diflucan in the past. Prealbumin from 07/22/19 was 18.7. Encourage nutritonal supplementation with protein to help the healing process. His HgbA1c from 07/22/19 was 5.9. His weekly labs while on Vancomycin showed from 08/26/19 a Creatinine of 1.08. The AST from 08/26/19 was 17. The ALT from 08/26/19 was 17. The Alkaline Phosphatase from 08/26/19 was 25. The Total Bilirubin from 08/26/19 was 0.3. Today he denies fever. His appetite is good. Progress of Wound: Recent surgery on 07/23/19. Ulcers are showing mild improvement. - Physical Exam Vital Signs Temp Pulse Resp BP Pulse Ox 98.1 F 75 20 H 112/62 97 08/26/19 13:45 08/26/19 13:45 08/26/19 13:45 08/26/19 13:45 08/16/19 00:09 General: Alert, Oriented x3, Cooperative HEENT: Atraumatic Oral: Moist Mucosa Lungs: Normal air movement Cardiovascular: Regular rate Abdomen: Bowel Sounds Present Extremities: Capillary Refill Less than 3 Seconds Skin: Ulcer/ Wound - Right middle lateral back ulcer, left middle lateral back ulcer and right flank ulcer. There is some mild edema in the center, lower back beneath the ulcers. Wound Measurements and Assessment WC - Nurse 1 - General Ulcer Measurement Start: 08/19/19 13:25 Freq: Status: Active Protocol: Activity Type Activity Date Activity User E-Sign Co-Sign Detail Recorded Client Recorded Date Recorded By Document 08/26/19 13:45 DL [id number] 08/26/19 14:00 DL 08/26/19 13:45 Wound Center Nurse 1 [Ulcer Assessment] #7 R Lower Side -Current Size (cm) - Length 1.5 -Current Size (cm) - Width 3 -Current Size (cm) - Depth 0.2 -Total Square Cm 4.5 -Photo Taken No -Exudate Amt Small -Exudate Type Serosanguineous -Wound Margin Distinct, Outline Attached -Granulation Amt Large (67-100%) -Granulation Quality Red -Necrosis Amt Small (1-33%) -Necrotic Tissue Type Adherent Slough -Structure Exposed N/A -Texture (Mayra-wound Skin Appearance) Scarring -Moisture (Mayra-wound Skin Appearance No Abnormality ) -Color (Mayra-wound Skin Appearance) Erythema -Temperature (Myara-wound Skin No Abnormality Appearance) (Pt Warm) -Tenderness on Palpation (Mayra-wound No Skin Appearance) -Ulcer Cleansing Wound Cleanser -Foul Odor after Cleansing No -Anesthetic Used 4% Lidocaine Solution,5% Lidocaine Gel 6. L lumbar back -Current Size (cm) - Length 6 -Current Size (cm) - Width 13.5 -Current Size (cm) - Depth 1.1 -Total Square Cm 81.0 -Photo Taken No -Exudate Amt Medium -Exudate Type Serosanguineous -Wound Margin Distinct, Outline Attached -Granulation Amt Medium (34-66%) -Granulation Quality Red -Necrosis Amt Medium (34-66%) -Necrotic Tissue Type Adherent Slough -Structure Exposed N/A -Texture (Mayra-wound Skin Appearance) Scarring -Moisture (Mayra-wound Skin Appearance No Abnormality ) -Color (Mayra-wound Skin Appearance) Erythema,Rubor -Temperature (Mayra-wound Skin No Abnormality Appearance) (Pt Warm) -Tenderness on Palpation (Mayra-wound No Skin Appearance) -Ulcer Cleansing Wound Cleanser -Foul Odor after Cleansing No -Anesthetic Used 4% Lidocaine Solution,5% Lidocaine Gel 5. R scapula -Current Size (cm) - Length 4 -Current Size (cm) - Width 10.5 -Current Size (cm) - Depth 0.5 -Total Square Cm 42.0 -Photo Taken No -Tunneling Position (O'clock) 10 -Tunneling Distance (cm) 0.7 -Exudate Amt Medium -Exudate Type Serosanguineous -Wound Margin Distinct, Outline Attached -Granulation Amt Medium (34-66%) -Granulation Quality Red -Necrosis Amt Medium (34-66%) -Necrotic Tissue Type Adherent Slough -Structure Exposed N/A -Texture (Mayra-wound Skin Appearance) Scarring -Moisture (Mayra-wound Skin Appearance No Abnormality ) -Color (Mayra-wound Skin Appearance) Erythema,Rubor -Temperature (Mayra-wound Skin No Abnormality Appearance) (Pt Warm) -Tenderness on Palpation (Mayra-wound No Skin Appearance) -Ulcer Cleansing Wound Cleanser -Foul Odor after Cleansing No -Anesthetic Used 4% Lidocaine Solution,5% Lidocaine Gel WC - Nurse 2 - General Ulcer CM Notes Start: 08/19/19 13:25 Freq: Status: Active Protocol: Activity Type Activity Date Activity User E-Sign Co-Sign Detail Recorded Client Recorded Date Recorded By Document 08/26/19 14:27 [facility] [id number] 08/26/19 14:31 [facility] 08/26/19 14:27 Wound Center Nurse 2 [Procedure/Treatment] #7 R Lower Side -Time 14:28 -Correct Patient Yes -Correct Side, Site, Position Yes -Correct Procedure Yes -Procedure Performed Yes -Type of Procedure Debridement -Clinical Debridement Subcutaneous -Post Debridement Size (cm) - Length 1.5 -Post Debridement Size (cm) - Width 2.3 -Post Debridement Size (cm) - Depth 0.3 -Total Square Cm 3.45 -Wound/Ulcer Outcome Not Healed -Ulcer Cleansing Rinsed/ Irrigated with Saline -Foul Odor after Cleansing No -Bioengineered Tissue No -Bleeding Controlled with Pressure -Offloading No -Treatment Response Procedure Tolerated Well 6. L lumbar back -Time 14:28 -Correct Patient Yes -Correct Side, Site, Position Yes -Correct Procedure Yes -Procedure Performed Yes -Type of Procedure Debridement -Clinical Debridement Muscle -Post Debridement Size (cm) - Length 14 -Post Debridement Size (cm) - Width 6 -Post Debridement Size (cm) - Depth 1.0 -Total Square Cm 84 -Wound/Ulcer Outcome Not Healed -Ulcer Cleansing Rinsed/ Irrigated with Saline -Foul Odor after Cleansing No -Bioengineered Tissue No -Bleeding Controlled with Pressure -Offloading No -Treatment Response Procedure Tolerated Well 5. R scapula -Time 14:29 -Correct Patient Yes -Correct Side, Site, Position Yes -Correct Procedure Yes -Procedure Performed Yes -Type of Procedure Debridement -Clinical Debridement Muscle -Post Debridement Size (cm) - Length 9.8 -Post Debridement Size (cm) - Width 4 -Post Debridement Size (cm) - Depth 0.5 -Total Square Cm 39.2 -Wound/Ulcer Outcome Not Healed -Ulcer Cleansing Rinsed/ Irrigated with Saline -Foul Odor after Cleansing No -Bioengineered Tissue No -Bleeding Controlled with Pressure -Other 10-12:00---0. 8cm -Offloading No -Treatment Response Procedure Tolerated Well [See Physician Procedure note for Specifics] Pain Scale: 0-10 Numeric [Pain] -Is Patient Pain Free? Yes Musculoskeletal: No Tenderness to Palpation of Joints or Extremities Neurological: Neuro grossly intact Psych/Mental Status: Normal Affect, Appropriate Debridement Note Post-Debridement Measurements/Treatment WC - Nurse 2 - General Ulcer CM Notes Start: 08/19/19 13:25 Freq: Status: Active Protocol: Activity Type Activity Date Activity User E-Sign Co-Sign Detail Recorded Client Recorded Date Recorded By Document 08/19/19 13:50 [id number] 08/19/19 14:03 Document 08/26/19 14:27 [id number] 08/26/19 14:31 08/19/19 08/26/19 13:50 14:27 Wound Center Nurse 2 #7 R Lower Side -Time 13:59 14:28 -Correct Patient Yes Yes -Correct Side, Site, Position Yes Yes -Correct Procedure Yes Yes -Procedure Performed Yes Yes -Type of Procedure Debridement Debridement -Clinical Debridement Subcutaneous Subcutaneous -Post Debridement Size (cm) - Length 1.4 1.5 -Post Debridement Size (cm) - Width 3.0 2.3 -Post Debridement Size (cm) - Depth 0.3 0.3 -Total Square Cm 4.20 3.45 -Wound/Ulcer Outcome Not Healed Not Healed -Ulcer Cleansing Rinsed/ Rinsed/ Irrigated with Irrigated with Saline Saline -Foul Odor after Cleansing No No -Bioengineered Tissue No No -Bleeding Controlled with Pressure Pressure -Offloading No No -Treatment Response Procedure Procedure Tolerated Well Tolerated Well 6. L lumbar back -Time 13:59 14:28 -Correct Patient Yes Yes -Correct Side, Site, Position Yes Yes -Correct Procedure Yes Yes -Procedure Performed Yes Yes -Type of Procedure Debridement Debridement -Clinical Debridement Muscle Muscle -Post Debridement Size (cm) - Length 14.3 14 -Post Debridement Size (cm) - Width 6.0 6 -Post Debridement Size (cm) - Depth 1.5 1.0 -Total Square Cm 85.80 84 -Wound/Ulcer Outcome Not Healed Not Healed -Ulcer Cleansing Rinsed/ Rinsed/ Irrigated with Irrigated with Saline Saline -Foul Odor after Cleansing No No -Bioengineered Tissue No No -Bleeding Controlled with Pressure Pressure -Offloading No No -Treatment Response Procedure Procedure Tolerated Well Tolerated Well 5. R scapula -Time 14:00 14:29 -Correct Patient Yes Yes -Correct Side, Site, Position Yes Yes -Correct Procedure Yes Yes -Procedure Performed Yes Yes -Type of Procedure Debridement Debridement -Clinical Debridement Muscle Muscle -Post Debridement Size (cm) - Length 11.4 9.8 -Post Debridement Size (cm) - Width 5.0 4 -Post Debridement Size (cm) - Depth 1.0 0.5 -Total Square Cm 57.00 39.2 -Wound/Ulcer Outcome Not Healed Not Healed -Ulcer Cleansing Rinsed/ Rinsed/ Irrigated with Irrigated with Saline Saline -Foul Odor after Cleansing No No -Bioengineered Tissue No No -Bleeding Controlled with Pressure Pressure -Other tunnel 10-12:00 10-12:00---0. 2.5cm 8cm -Offloading No No -Treatment Response Procedure Procedure Tolerated Well Tolerated Well Pain Scale: 0-10 Numeric Is Patient Pain Free? Yes Yes Wound debrided: Middle lateral back ulcer Laterality: Right Type of Debridement: Excisional debridement Anesthesia Used: 5% Lidocaine Gel Depth: Down to and including healthy tissue, in the subcutaneous layer, to muscle Percentage of wound debrided: 100 Instrument Used: 5mm curette Tissue Removed: Subcutaneous tissue and slough into the muscle Severity: Fat Layer Exposed Amount of bleeding with debridement: Mild Bleeding Controlled with: Pressure Patient tolerated procedure well - Additional Wound Wound debrided: Middle lateral back ulcer Laterality: Left Type of Debridement: Excisional debridement Anesthesia Used: 5% Lidocaine Gel Depth: Down to and including healthy tissue, in the subcutaneous layer, to muscle Percentage of wound debrided: 100 Instrument Used: 7mm curette Tissue Removed: Subcutaneous tissue and slough into the muscle Severity: Fat Layer Exposed Amount of bleeding with debridement: Mild Bleeding Controlled with: Pressure Patient tolerated procedure: Patient tolerated procedure well - Additional Wound Wound debrided: flank ulcer Laterality: Right Type of Debridement: Excisional debridement Anesthesia Used: 5% Lidocaine Gel Depth: Down to and including healthy tissue, in the subcutaneous layer Percentage of wound debrided: 100 Instrument Used: 3mm curette Tissue Removed: Subcutaneous tissue and slough Severity: Fat Layer Exposed Amount of bleeding with debridement: None Bleeding Controlled with: Pressure Patient tolerated procedure: Patient tolerated procedure well Assessment/Plan Assessment: 1. Nonhealing diabetic ulcer right lateral middle back. 2. Nonhealing diabetic ulcer left lateral middle back. 3. Nonhealing diabetic ulcer right posterior flank. 4. Diabetes mellitus. 5. s/p surgical preparation right lateral middle back with incision and drainage and excisional debridement nonhealing infected diabetic ulcer (66 cm2) and surgical preparation left lateral middle back with incision and drainage and excisional debridement nonhealing infected diabetic ulcer (137.75 cm2). 6. Mild compromised skin grafts. Plan: Continue the VAC to both back ulcers to be changed three times per week at 150 mmHg continuous suction. Make sure to have foam placed in the undermining area on the right middle lateral back ulcer. For the right flank ulcer, will stop continue daily Medihoney to see if this will help with the pain and discomfort of this area. Continue IV Vancomycin for the MRSE. Labs from 07/22/19- Prealbumin 18.7 and HgA1c 5.9. Encourage nutritional supplementation with protein to help the healing process. His weekly labs while on Vancomycin showed from 08/26/19 a Creatinine of 1.08. The AST from 08/26/19 was 17. The ALT from 08/26/19 was 17. The Alkaline Phosphatase from 08/26/19 was 25. The Total Bilirubin from 08/26/19 was 0.3. Renewed Valium (21). PDMP reviewed. Followup one week. [id number]: 10820 Pooja musc/fascia 20 sq cm/< - right and left middle lateral back ulcers Add On Codes: 32841 Pooja musc/fascia add-on - x5 Multi Select Codes - Integumentary Integumentary CPT Codes: 79442 Pooja subq tissue 20 sq cm/< - right flank ulcer
[2019-08-26 15:16] LABS: Hematocrit 37.1 % (40-54); Hemoglobin 11.6 g/dL (13.0-16.5); Mean Corp Hgb Conc 31.3 g/dL (32-36); Mean Corpuscular Hgb 28.7 pg (27.0-32.0); Mean Corpuscular Volume 91.8 fL (80-94); Mean Platelet Vol. 9.4 fl (6.2-12.0); Platelet Count 240 K/mm3 (150-450); RBC Distribution Width CV 12.7 % (11.6-14.6); RBC Distribution Width SD 42.7 fl (35.1-43.9); Red Blood Count 4.04 M/mm3 (4.6-6.2); White Blood Count 4.1 K/mm3 (4.4-11.0)
[2019-08-26 15:33] LABS: AST(SGOT) 17 U/L (15-37); Alanine Aminotransfer ALT/SGPT 29 U/L (16-61); Albumin, Serum 3.6 g/dL (3.2-5.0); Alkaline Phosphatase 25 U/L (45-117); Anion Gap 5 (5-15); BUN 20 mg/dL (7-18); BUN/Creat Ratio 18.5 RATIO (10-20); Chloride 106 mmol/L (98-107); Creatinine, Serum 1.08 mg/dL (0.70-1.30); EST Glomerular Filtration Rate 74 mL/min (>60); Est Glom Filt Rate - Afr Amer 90 mL/min (>60); Globulin 3.6 g/dL (2.2-4.2); Glucose 91 mg/dL (74-106); Potassium 4.2 mmol/L (3.5-5.1); Protein, Total 7.2 g/dL (6.4-8.2); Sodium Level 140 mmol/L (136-145); Vancomycin, Trough Level 10.9 ug/mL (5.0-15.0)
[2019-08-26 15:35] LABS: Erythrocyte Sedimentation Rate 22 mm/hr (0-20)
[2019-09-02 14:13] VITALS: BP 122/68; PULSE 80; RESP 20; TEMP 37.1; BMI 28.2
--- NOTE | 2019-09-02 17:56 | PCM.WC.PN ---
Type of Wound Date of Service: 09/02/19 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: Nonhealing diabetic ulcers left lateral middle back and right lateral middle back and nonhealing diabetic ulcer right flank. History of Wound: Surgery 07/23/19 - 1. Surgical preparation right lateral middle back with incision and drainage and excisional debridement nonhealing infected diabetic ulcer (66 cm2). 2. Surgical preparation left lateral middle back with incision and drainage and excisional debridement nonhealing infected diabetic ulcer (137.75 cm2). Wound care - VAC to the right and left middle lateral back ulcers. For the right flank ulcer will continue daily Medihoney covered by gauze. Operative cultures from 07/23/19 were positive for resistant Staphylococcus epidermidis (MRSE). He was started on IV Vancomycin since he had been on Doxycyline, Cleocin, and Zyvox in the past for the persistent Staph infections. Surgery 02/18/19 - 1. Surgical preparation right lateral middle back with excision nonhealing diabetic ulcer. 2. Reconstruction with STSG from right posterior flank (21 cm2) and placement AmnioFill Placental Connective Tissue Powder (250 mg) and placement TAYLOR NPWT. 3. Surgical preparation left lateral middle back with excision nonhealing diabetic ulcer. 4. Reconstruction with STSG from left posterior flank (48 cm2) and placement of AmnioFill Placental Connective Tissue Powder (500 mg) and placement of TAYLOR NPWT. He developed compromise to the healing skin grafts that necessitated HBO Treatments. He has had persistent cultures over the past year showing MRSE, Staphylococcus aureus, Methicillin resistant Staphylococcus haemolyticus, Staphylococcus lugdunensis, and Salma albicans. He has been on Doxycycline, Cleocin, and Zyvox, and Diflucan in the past. Prealbumin from 07/22/19 was 18.7. Encourage nutritonal supplementation with protein to help the healing process. His HgbA1c from 07/22/19 was 5.9. His weekly labs while on Vancomycin showed from 08/26/19 a Creatinine of 1.08. The AST from 08/26/19 was 17. The ALT from 08/26/19 was 17. The Alkaline Phosphatase from 08/26/19 was 25. The Total Bilirubin from 08/26/19 was 0.3. Today he denies fever. His appetite is good. Progress of Wound: Mild improvement. - Physical Exam Vital Signs Temp Pulse Resp BP Pulse Ox 98.8 F 80 20 H 122/68 H 97 09/02/19 14:13 09/02/19 14:13 09/02/19 14:13 09/02/19 14:13 08/16/19 00:09 Wound Measurements and Assessment WC - Nurse 1 - General Ulcer Measurement Start: 08/19/19 13:25 Freq: Status: Active Protocol: Activity Type Activity Date Activity User E-Sign Co-Sign Detail Recorded Client Recorded Date Recorded By Document 09/02/19 14:13 DL [id number] 09/02/19 14:29 DL 09/02/19 14:13 Wound Center Nurse 1 [Ulcer Assessment] #7 R Lower Side -Current Size (cm) - Length 1.4 -Current Size (cm) - Width 3.4 -Current Size (cm) - Depth 0.2 -Total Square Cm 4.76 -Photo Taken No -Exudate Amt Small -Exudate Type Serosanguineous -Wound Margin Distinct, Outline Attached -Granulation Amt Medium (34-66%) -Granulation Quality Red -Necrosis Amt Medium (34-66%) -Necrotic Tissue Type Adherent Slough -Structure Exposed N/A -Texture (Mayra-wound Skin Appearance) Scarring -Moisture (Mayra-wound Skin Appearance No Abnormality ) -Color (Mayra-wound Skin Appearance) Erythema,Rubor -Temperature (Mayra-wound Skin No Abnormality Appearance) (Pt Warm) -Tenderness on Palpation (Mayra-wound No Skin Appearance) -Ulcer Cleansing Wound Cleanser -Foul Odor after Cleansing No -Anesthetic Used 4% Lidocaine Solution,5% Lidocaine Gel 6. L lumbar back -Current Size (cm) - Length 5.9 -Current Size (cm) - Width 13.8 -Current Size (cm) - Depth 0.3 -Total Square Cm 81.42 -Photo Taken No -Exudate Amt Medium -Exudate Type Serosanguineous -Wound Margin Distinct, Outline Attached -Granulation Amt Large (67-100%) -Granulation Quality Red -Necrosis Amt Small (1-33%) -Necrotic Tissue Type Adherent Slough -Structure Exposed N/A -Texture (Mayra-wound Skin Appearance) Scarring -Moisture (Mayra-wound Skin Appearance No Abnormality ) -Color (Mayra-wound Skin Appearance) Rubor -Temperature (Mayra-wound Skin No Abnormality Appearance) (Pt Warm) -Tenderness on Palpation (Mayra-wound No Skin Appearance) -Ulcer Cleansing Wound Cleanser -Foul Odor after Cleansing No -Anesthetic Used 4% Lidocaine Solution,5% Lidocaine Gel 5. R scapula -Current Size (cm) - Length 3.7 -Current Size (cm) - Width 9 -Current Size (cm) - Depth 0.2 -Total Square Cm 33.3 -Photo Taken No -Tunneling Position (O'clock) 11 -Tunneling Distance (cm) 0.6 -Exudate Amt Medium -Exudate Type Serosanguineous -Wound Margin Distinct, Outline Attached -Granulation Amt Medium (34-66%) -Granulation Quality Red -Necrosis Amt Medium (34-66%) -Necrotic Tissue Type Adherent Slough -Structure Exposed N/A -Texture (Mayra-wound Skin Appearance) Scarring -Moisture (Mayra-wound Skin Appearance Dry/Scaly ) -Color (Mayra-wound Skin Appearance) Erythema,Rubor -Temperature (Mayra-wound Skin No Abnormality Appearance) (Pt Warm) -Tenderness on Palpation (Mayra-wound No Skin Appearance) -Ulcer Cleansing Wound Cleanser -Foul Odor after Cleansing No -Anesthetic Used 4% Lidocaine Solution,5% Lidocaine Gel WC - Nurse 2 - General Ulcer CM Notes Start: 08/19/19 13:25 Freq: Status: Active Protocol: Activity Type Activity Date Activity User E-Sign Co-Sign Detail Recorded Client Recorded Date Recorded By Document 09/02/19 14:43 DL [id number] 09/02/19 14:47 DL 09/02/19 14:43 Wound Center Nurse 2 [Procedure/Treatment] #7 R Lower Side -Time 14:44 -Correct Patient Yes -Correct Side, Site, Position Yes -Correct Procedure Yes -Procedure Performed Yes -Type of Procedure Debridement -Clinical Debridement Subcutaneous -Post Debridement Size (cm) - Length 1.5 -Post Debridement Size (cm) - Width 3.1 -Post Debridement Size (cm) - Depth 0.2 -Total Square Cm 4.65 -Wound/Ulcer Outcome Not Healed -Ulcer Cleansing Rinsed/ Irrigated with Saline -Foul Odor after Cleansing No -Bioengineered Tissue No -Bleeding Controlled with Pressure -Offloading No -Treatment Response Procedure Tolerated Well 6. L lumbar back -Time 14:44 -Correct Patient Yes -Correct Side, Site, Position Yes -Correct Procedure Yes -Procedure Performed Yes -Type of Procedure Debridement -Clinical Debridement Muscle -Post Debridement Size (cm) - Length 5.8 -Post Debridement Size (cm) - Width 13.5 -Post Debridement Size (cm) - Depth 0.4 -Total Square Cm 78.30 -Wound/Ulcer Outcome Not Healed -Ulcer Cleansing Rinsed/ Irrigated with Saline -Foul Odor after Cleansing No -Bioengineered Tissue No -Bleeding Controlled with Pressure -Offloading No -Treatment Response Procedure Tolerated Well 5. R scapula -Time 14:44 -Correct Patient Yes -Correct Side, Site, Position Yes -Correct Procedure Yes -Procedure Performed Yes -Type of Procedure Debridement -Clinical Debridement Muscle -Post Debridement Size (cm) - Length 3.8 -Post Debridement Size (cm) - Width 9.5 -Post Debridement Size (cm) - Depth 0.3 -Total Square Cm 36.10 -Wound/Ulcer Outcome Not Healed -Ulcer Cleansing Rinsed/ Irrigated with Saline -Foul Odor after Cleansing No -Bioengineered Tissue No -Bleeding Controlled with Pressure -Offloading No -Treatment Response Procedure Tolerated Well [See Physician Procedure note for Specifics] Pain Scale: 0-10 Numeric [Pain] -Is Patient Pain Free? Yes Debridement Note Post-Debridement Measurements/Treatment WC - Nurse 2 - General Ulcer CM Notes Start: 08/19/19 13:25 Freq: Status: Active Protocol: Activity Type Activity Date Activity User E-Sign Co-Sign Detail Recorded Client Recorded Date Recorded By Document 08/19/19 13:50 [id number] 08/19/19 14:03 Document 08/26/19 14:27 [id number] 08/26/19 14:31 Document 09/02/19 14:43 DL [id number] 09/02/19 14:47 DL 08/19/19 08/26/19 09/02/19 13:50 14:27 14:43 Wound Center Nurse 2 #7 R Lower Side -Time 13:59 14:28 14:44 -Correct Patient Yes Yes Yes -Correct Side, Site, Position Yes Yes Yes -Correct Procedure Yes Yes Yes -Procedure Performed Yes Yes Yes -Type of Procedure Debridement Debridement Debridement -Clinical Debridement Subcutaneous Subcutaneous Subcutaneous -Post Debridement Size (cm) - Length 1.4 1.5 1.5 -Post Debridement Size (cm) - Width 3.0 2.3 3.1 -Post Debridement Size (cm) - Depth 0.3 0.3 0.2 -Total Square Cm 4.20 3.45 4.65 -Wound/Ulcer Outcome Not Healed Not Healed Not Healed -Ulcer Cleansing Rinsed/ Rinsed/ Rinsed/ Irrigated with Irrigated with Irrigated with Saline Saline Saline -Foul Odor after Cleansing No No No -Bioengineered Tissue No No No -Bleeding Controlled with Pressure Pressure Pressure -Offloading No No No -Treatment Response Procedure Procedure Procedure Tolerated Well Tolerated Well Tolerated Well 6. L lumbar back -Time 13:59 14:28 14:44 -Correct Patient Yes Yes Yes -Correct Side, Site, Position Yes Yes Yes -Correct Procedure Yes Yes Yes -Procedure Performed Yes Yes Yes -Type of Procedure Debridement Debridement Debridement -Clinical Debridement Muscle Muscle Muscle -Post Debridement Size (cm) - Length 14.3 14 5.8 -Post Debridement Size (cm) - Width 6.0 6 13.5 -Post Debridement Size (cm) - Depth 1.5 1.0 0.4 -Total Square Cm 85.80 84 78.30 -Wound/Ulcer Outcome Not Healed Not Healed Not Healed -Ulcer Cleansing Rinsed/ Rinsed/ Rinsed/ Irrigated with Irrigated with Irrigated with Saline Saline Saline -Foul Odor after Cleansing No No No -Bioengineered Tissue No No No -Bleeding Controlled with Pressure Pressure Pressure -Offloading No No No -Treatment Response Procedure Procedure Procedure Tolerated Well Tolerated Well Tolerated Well 5. R scapula -Time 14:00 14:29 14:44 -Correct Patient Yes Yes Yes -Correct Side, Site, Position Yes Yes Yes -Correct Procedure Yes Yes Yes -Procedure Performed Yes Yes Yes -Type of Procedure Debridement Debridement Debridement -Clinical Debridement Muscle Muscle Muscle -Post Debridement Size (cm) - Length 11.4 9.8 3.8 -Post Debridement Size (cm) - Width 5.0 4 9.5 -Post Debridement Size (cm) - Depth 1.0 0.5 0.3 -Total Square Cm 57.00 39.2 36.10 -Wound/Ulcer Outcome Not Healed Not Healed Not Healed -Ulcer Cleansing Rinsed/ Rinsed/ Rinsed/ Irrigated with Irrigated with Irrigated with Saline Saline Saline -Foul Odor after Cleansing No No No -Bioengineered Tissue No No No -Bleeding Controlled with Pressure Pressure Pressure -Other tunnel 10-12:00 10-12:00---0. 2.5cm 8cm -Offloading No No No -Treatment Response Procedure Procedure Procedure Tolerated Well Tolerated Well Tolerated Well Pain Scale: 0-10 Numeric Is Patient Pain Free? Yes Yes Yes Wound debrided: #5 Right lateral middle back. Laterality: Right Wound Grade/Stage: 3. Type of Debridement: Excisional debridement Anesthesia Used: 4% Lidocaine Solution Depth: Down to and including healthy tissue, in the subcutaneous layer Percentage of wound debrided: 100 Instrument Used: 7mm curette Tissue Removed: subcutaneous tissue and muscle. Severity: Fat Layer Exposed - muscle is exposed. Amount of bleeding with debridement: Mild Bleeding Controlled with: Pressure Patient tolerated procedure well - Additional Wound Wound debrided: #6 Left lateral middle back. Laterality: Left Wound Grade/Stage: 3. Type of Debridement: Excisional debridement Anesthesia Used: 4% Lidocaine Solution Depth: Down to and including healthy tissue, in the subcutaneous layer, to muscle Percentage of wound debrided: 100 Instrument Used: 7mm curette Tissue Removed: subcutaneous tissue and muscle. Severity: Fat Layer Exposed - muscle is exposed. Amount of bleeding with debridement: Mild Bleeding Controlled with: Pressure Patient tolerated procedure: Patient tolerated procedure well - Additional Wound Wound debrided: #7 Right flank. Laterality: Right Wound Grade/Stage: 2. Type of Debridement: Excisional debridement Anesthesia Used: 4% Lidocaine Solution Depth: Down to and including healthy tissue, in the subcutaneous layer Percentage of wound debrided: 100 Instrument Used: 3mm curette Tissue Removed: subcutaneous tissue. Severity: Fat Layer Exposed Amount of bleeding with debridement: Mild Bleeding Controlled with: Pressure Patient tolerated procedure: Patient tolerated procedure well Assessment/Plan Assessment: 1. Nonhealing diabetic ulcer right lateral middle back. 2. Nonhealing diabetic ulcer left lateral middle back. 3. Nonhealing diabetic ulcer right posterior flank. 4. Diabetes mellitus. 5. s/p surgical preparation right lateral middle back with incision and drainage and excisional debridement nonhealing infected diabetic ulcer (66 cm2) and surgical preparation left lateral middle back with incision and drainage and excisional debridement nonhealing infected diabetic ulcer (137.75 cm2). Plan: Continue the VAC to both back ulcers to be changed three times per week at 150 mmHg continuous suction. For the right flank ulcer, continue daily Medihoney to see if this will help with the pain and discomfort of this area. He has finished the IV Vancomycin for the MRSE. The PICC line was pulled today. Labs from 07/22/19- Prealbumin 18.7 and HgA1c 5.9. Encourage nutritional supplementation with protein to help the healing process. His weekly labs while on Vancomycin showed from 08/26/19 a Creatinine of 1.08. The AST from 08/26/19 was 17. The ALT from 08/26/19 was 17. The Alkaline Phosphatase from 08/26/19 was 25. The Total Bilirubin from 08/26/19 was 0.3. Renewed Valium (21). PDMP reviewed. Followup one week. If the right flank ulcer shows a plateau in the healing process, can consider operative debridement and complex secondary wound closure. [id number]: 70254 Pooja musc/fascia 20 sq cm/< - ICD-10 - L98.492, L03.312, E11.9, T86.829 Add On Codes: 30437 Pooja musc/fascia add-on - X5 units ICD-10 - L98.492, L03.312, E11.9, T86.829 Multi Select Codes - Integumentary Integumentary CPT Codes: 16335 Pooja subq tissue 20 sq cm/< - ICD-10 - L98.492, L03.312, E11.9, T86.829
== END 2019-09-15 23:59 ==
LOC: WC 14:00
PROVIDERS: Family Provider Family Medicine; PCP Surgery; Referring Provider Nurse Practitioner Family; Visit Provider Nurse Practitioner Family
DX: E11.622 Type 2 diabetes mellitus with other skin ulcer (principal); T81.31XA Disruption of external operation (surgical) wound, not elsewhere classified, initial encounter; Y83.2 Surgical operation with anastomosis, bypass or graft as the cause of abnormal reaction of the patient, or of later complication, without mention of misadventure at the time of the procedure; L98.422 Non-pressure chronic ulcer of back with fat layer exposed
CPT/HCPCS: 11042; 11043; 11046; 80053; 80202; 85027; 85652; 86140; 97606

== ENCOUNTER 2019-10-14 10:00 | Outpatient (RCR) | payer OTHER, SELFPAY ==
[2019-09-16 00:21] VITALS: BP 122/68; PULSE 80; RESP 20; TEMP 37.1; O2SAT 97
[2019-09-16 13:40] VITALS: BP 122/58; PULSE 81; RESP 18; TEMP 36.4; BMI 28.2
--- NOTE | 2019-09-16 16:11 | PCM.WC.PN ---
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 Comment: Nonhealing ulcers right lateral middle back and left lateral middle back (2) Dehiscence of external surgical wound Status: Chronic Qualifiers: Encounter type: initial encounter Qualified Code(s): T81.31XA - Disruption of external operation (surgical) wound, not elsewhere classified, initial encounter Code(s): T81.31XA - Disruption of external operation (surgical) wound, not elsewhere classified, initial encounter (3) Type 2 diabetes mellitus Status: Chronic Qualifiers: Code(s): E11.9 - Type 2 diabetes mellitus without complications Type of Wound Date of Service: 09/16/19 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: Nonhealing diabetic ulcers left lateral middle back and right lateral middle back and nonhealing diabetic ulcer right flank. History of Wound: Surgery 07/23/19 - 1. Surgical preparation right lateral middle back with incision and drainage and excisional debridement nonhealing infected diabetic ulcer (66 cm2). 2. Surgical preparation left lateral middle back with incision and drainage and excisional debridement nonhealing infected diabetic ulcer (137.75 cm2). Wound care - VAC to the right and left middle lateral back ulcers. We will take a wound VAC holiday for one week and do daily silver dressing changes. For the right flank ulcer will continue daily Medihoney covered by gauze. Operative cultures from 07/23/19 were positive for resistant Staphylococcus epidermidis (MRSE). He was started on IV Vancomycin since he had been on Doxycyline, Cleocin, and Zyvox in the past for the persistent Staph infections. Surgery 02/18/19 - 1. Surgical preparation right lateral middle back with excision nonhealing diabetic ulcer. 2. Reconstruction with STSG from right posterior flank (21 cm2) and placement AmnioFill Placental Connective Tissue Powder (250 mg) and placement TAYLOR NPWT. 3. Surgical preparation left lateral middle back with excision nonhealing diabetic ulcer. 4. Reconstruction with STSG from left posterior flank (48 cm2) and placement of AmnioFill Placental Connective Tissue Powder (500 mg) and placement of TAYLOR NPWT. He developed compromise to the healing skin grafts that necessitated HBO Treatments. He has had persistent cultures over the past year showing MRSE, Staphylococcus aureus, Methicillin resistant Staphylococcus haemolyticus, Staphylococcus lugdunensis, and Salma albicans. He has been on Doxycycline, Cleocin, and Zyvox, and Diflucan in the past. Prealbumin from 07/22/19 was 18.7. Encourage nutritonal supplementation with protein to help the healing process. His HgbA1c from 07/22/19 was 5.9. His weekly labs while on Vancomycin showed from 08/26/19 a Creatinine of 1.08. The AST from 08/26/19 was 17. The ALT from 08/26/19 was 17. The Alkaline Phosphatase from 08/26/19 was 25. The Total Bilirubin from 08/26/19 was 0.3. Today he denies fever. His appetite is good. Progress of Wound: Mild improvement. - Physical Exam Vital Signs Temp Pulse Resp BP Pulse Ox 97.6 F L 81 18 122/58 H 97 09/16/19 13:40 09/16/19 13:40 09/16/19 13:40 09/16/19 13:40 09/16/19 00:21 General: Alert, Oriented x3, Cooperative HEENT: Atraumatic Oral: Moist Mucosa Lungs: Normal air movement Cardiovascular: Regular rate Extremities: No edema, Capillary Refill Less than 3 Seconds Skin: Ulcer/ Wound - Right middle lateral back ulcer. Left middle lateral back ulcer. Right flank ulcer. The ulcers are all very hypersensitive to palpation and has increased pain with debridement. Wound Measurements and Assessment WC - Nurse 1 - General Ulcer Measurement Start: 09/16/19 13:40 Freq: Status: Active Protocol: Activity Type Activity Date Activity User E-Sign Co-Sign Detail Recorded Client Recorded Date Recorded By Document 09/16/19 13:40 [id number] 09/16/19 13:46 RB 09/16/19 13:40 Wound Center Nurse 1 [Ulcer Assessment] #7 R Lower Side -Combined with other wound No -Current Size (cm) - Length 2.1 -Current Size (cm) - Width 2.8 -Current Size (cm) - Depth 0.3 -Total Square Cm 5.88 -Tunneling No -Undermining/Tunneling No -Circular Undermining No -Exudate Amt Medium -Exudate Type Serosanguineous -Wound Margin Thickened & Rolled Under -Granulation Amt Medium (34-66%) -Granulation Quality Red -Slough/Fibrin Yes -Necrosis Amt Medium (34-66%) -Necrotic Tissue Type Adherent Slough -Structure Exposed N/A -Texture (Mayra-wound Skin Appearance) Assessed, Scarring -Moisture (Mayra-wound Skin Appearance Assessed ) -Color (Mayra-wound Skin Appearance) Assessed -Temperature (Mayra-wound Skin No Abnormality Appearance) (Pt Warm) -Tenderness on Palpation (Mayra-wound No Skin Appearance) -Ulcer Cleansing Wound Cleanser -Foul Odor after Cleansing No -Anesthetic Used 5% Lidocaine Gel 6. L lumbar back -Combined with other wound No -Current Size (cm) - Length 9.2 -Current Size (cm) - Width 10.4 -Current Size (cm) - Depth 0.2 -Total Square Cm 95.68 -Tunneling No -Undermining/Tunneling No -Circular Undermining No -Exudate Amt Large -Exudate Type Serosanguineous -Wound Margin Thickened & Rolled Under -Granulation Amt Large (67-100%) -Granulation Quality Red -Slough/Fibrin Yes -Necrosis Amt Small (1-33%) -Necrotic Tissue Type Adherent Slough -Structure Exposed N/A -Texture (Mayra-wound Skin Appearance) Scarring -Moisture (Mayra-wound Skin Appearance Assessed ) -Color (Mayra-wound Skin Appearance) Assessed -Temperature (Mayra-wound Skin No Abnormality Appearance) (Pt Warm) -Tenderness on Palpation (Mayra-wound No Skin Appearance) -Ulcer Cleansing Wound Cleanser -Foul Odor after Cleansing No -Anesthetic Used 5% Lidocaine Gel 5. R scapula -Combined with other wound No -Current Size (cm) - Length 6.5 -Current Size (cm) - Width 6.7 -Current Size (cm) - Depth 0.4 -Total Square Cm 43.55 -Tunneling No -Undermining/Tunneling Yes -Undermining/Tunneling Starts (O' 1 clock) -Undermining/Tunneling Ends (O'clock) 2 -Maximum Distance (cm) 0.3 -Circular Undermining No -Exudate Amt Large -Exudate Type Serosanguineous -Wound Margin Thickened & Rolled Under -Granulation Amt Large (67-100%) -Granulation Quality Red -Slough/Fibrin Yes -Necrosis Amt Small (1-33%) -Necrotic Tissue Type Adherent Slough -Structure Exposed N/A -Texture (Mayra-wound Skin Appearance) Scarring -Moisture (Mayra-wound Skin Appearance Assessed ) -Color (Mayra-wound Skin Appearance) Assessed -Temperature (Mayra-wound Skin No Abnormality Appearance) (Pt Warm) -Tenderness on Palpation (Mayra-wound No Skin Appearance) -Ulcer Cleansing Wound Cleanser -Foul Odor after Cleansing No -Anesthetic Used 5% Lidocaine Gel Musculoskeletal: Tenderness Neurological: Neuro grossly intact Psych/Mental Status: Normal Affect, Appropriate Debridement Note Wound debrided: Middle lateral back ulcer Laterality: Right Type of Debridement: Excisional debridement Anesthesia Used: 5% Lidocaine Gel Depth: Down to and including healthy tissue, in the subcutaneous layer, to muscle Percentage of wound debrided: 100 Instrument Used: 7mm curette Tissue Removed: The cutaneous tissue and slough into the muscle. Severity: Fat Layer Exposed Amount of bleeding with debridement: Mild Bleeding Controlled with: Pressure Patient tolerated procedure well - Additional Wound Wound debrided: Middle back lateral ulcer Laterality: Left Type of Debridement: Excisional debridement Anesthesia Used: 5% Lidocaine Gel Depth: Down to and including healthy tissue, in the subcutaneous layer, to muscle Percentage of wound debrided: 100 Instrument Used: 7mm curette Tissue Removed: Subcutaneous tissue and slough into the muscle. Severity: Fat Layer Exposed Amount of bleeding with debridement: Mild Bleeding Controlled with: Pressure Patient tolerated procedure: Patient tolerated procedure well - Additional Wound Wound debrided: Flank ulcer Laterality: Right Type of Debridement: Excisional debridement Anesthesia Used: 5% Lidocaine Gel Depth: Down to and including healthy tissue, in the subcutaneous layer Percentage of wound debrided: 100 Instrument Used: 3mm curette Tissue Removed: Subcutaneous tissue and slough Severity: Fat Layer Exposed Amount of bleeding with debridement: Mild Bleeding Controlled with: Pressure Patient tolerated procedure: Patient tolerated procedure well Assessment/Plan Assessment: 1. Nonhealing diabetic ulcer right lateral middle back. 2. Nonhealing diabetic ulcer left lateral middle back. 3. Nonhealing diabetic ulcer right posterior flank. 4. Diabetes mellitus. 5. s/p surgical preparation right lateral middle back with incision and drainage and excisional debridement nonhealing infected diabetic ulcer (66 cm2) and surgical preparation left lateral middle back with incision and drainage and excisional debridement nonhealing infected diabetic ulcer (137.75 cm2). Plan: Will take a wound VAC holiday for one week to see if this helps with his increasing pain. His back ulcers are filling in with most of the muscle being covered. For the right flank ulcer, continue daily Medihoney. This area is beefy pink and looking well. He has finished the IV Vancomycin for the MRSE. The PICC line was pulled today. Labs from 07/22/19- Prealbumin 18.7 and HgA1c 5.9. Encourage nutritional supplementation with protein to help the healing process. His weekly labs while on Vancomycin showed from 08/26/19 a Creatinine of 1.08. The AST from 08/26/19 was 17. The ALT from 08/26/19 was 17. The Alkaline Phosphatase from 08/26/19 was 25. The Total Bilirubin from 08/26/19 was 0.3. Followup one week. If the right flank ulcer shows a plateau in the healing process, can consider operative debridement and complex secondary wound closure. 111xxx-113xx: 86191 Global Visit
[2019-09-23 13:03] VITALS: RESP 16; TEMP 36.2; BMI 28.2
--- NOTE | 2019-09-23 15:52 | PCM.WC.PN ---
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 Comment: Nonhealing ulcers right lateral middle back and left lateral middle back (2) Dehiscence of external surgical wound Status: Chronic Current Visit: Yes Qualifiers: Encounter type: initial encounter Qualified Code(s): T81.31XA - Disruption of external operation (surgical) wound, not elsewhere classified, initial encounter Code(s): T81.31XA - Disruption of external operation (surgical) wound, not elsewhere classified, initial encounter (3) Type 2 diabetes mellitus Status: Chronic Current Visit: Yes Qualifiers: Code(s): E11.9 - Type 2 diabetes mellitus without complications Type of Wound Date of Service: 09/23/19 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: Nonhealing diabetic ulcers left lateral middle back and right lateral middle back and nonhealing diabetic ulcer right flank. History of Wound: Surgery 07/23/19 - 1. Surgical preparation right lateral middle back with incision and drainage and excisional debridement nonhealing infected diabetic ulcer (66 cm2). 2. Surgical preparation left lateral middle back with incision and drainage and excisional debridement nonhealing infected diabetic ulcer (137.75 cm2). Wound care - Will discontinue the wound VAC to the right and left middle lateral back ulcers. He took a VAC holiday last week and his back ulcers and mayra wound have improved. For the right flank ulcer will continue daily Medihoney covered by gauze, until he runs out of Medihoney, then will start daily Silver dressing changes. He is having increase pain in the right flank ulcer so a wound culture was obtained today, 09/23/19. Depending on the results of the wound culture, it may necessitate the need for treatment with antibiotics. Operative cultures from 07/23/19 were positive for resistant Staphylococcus epidermidis (MRSE). He was started on IV Vancomycin since he had been on Doxycyline, Cleocin, and Zyvox in the past for the persistent Staph infections. Surgery 02/18/19 - 1. Surgical preparation right lateral middle back with excision nonhealing diabetic ulcer. 2. Reconstruction with STSG from right posterior flank (21 cm2) and placement AmnioFill Placental Connective Tissue Powder (250 mg) and placement TAYLOR NPWT. 3. Surgical preparation left lateral middle back with excision nonhealing diabetic ulcer. 4. Reconstruction with STSG from left posterior flank (48 cm2) and placement of AmnioFill Placental Connective Tissue Powder (500 mg) and placement of TAYLOR NPWT. He developed compromise to the healing skin grafts that necessitated HBO Treatments. He has had persistent cultures over the past year showing MRSE, Staphylococcus aureus, Methicillin resistant Staphylococcus haemolyticus, Staphylococcus lugdunensis, and Salma albicans. He has been on Doxycycline, Cleocin, and Zyvox, and Diflucan in the past. Prealbumin from 07/22/19 was 18.7. Encourage nutritonal supplementation with protein to help the healing process. His HgbA1c from 07/22/19 was 5.9. His weekly labs while on Vancomycin showed from 08/26/19 a Creatinine of 1.08. The AST from 08/26/19 was 17. The ALT from 08/26/19 was 17. The Alkaline Phosphatase from 08/26/19 was 25. The Total Bilirubin from 08/26/19 was 0.3. Today he denies fever. His appetite is good. Progress of Wound: Improvement of the left middle lateral back ulcer and the right middle back lateral ulcer. There is now granulation tissue covering the muscle. The right flank ulcer is stable but increased pain and sensitivity. - Physical Exam Vital Signs Temp Pulse Resp BP Pulse Ox 97.1 F L 81 16 122/58 H 97 09/23/19 13:03 09/16/19 13:40 09/23/19 13:03 09/16/19 13:40 09/16/19 00:21 General: Alert, Oriented x3, Cooperative HEENT: Atraumatic Oral: Moist Mucosa Lungs: Normal air movement Cardiovascular: Regular rate Abdomen: Soft, Non Tender Extremities: Capillary Refill Less than 3 Seconds Skin: Ulcer/ Wound - Left middle, lateral back ulcer and right middle, lateral back ulcer are beefy pink. The depth has improved and there is now granulation tissue covering all the muscle and color is beefy pink. Right flank ulcer is stable, beefy pink and very tender to palpation. Wound Measurements and Assessment WC - Nurse 1 - General Ulcer Measurement Start: 09/16/19 13:40 Freq: Status: Active Protocol: Activity Type Activity Date Activity User E-Sign Co-Sign Detail Recorded Client Recorded Date Recorded By Document 09/23/19 13:03 [email or web address] [id number] 09/23/19 13:18 [facility] 09/23/19 13:03 Wound Center Nurse 1 [Ulcer Assessment] #7 R Lower Side -Combined with other wound No -Current Size (cm) - Length 1.8 -Current Size (cm) - Width 3.2 -Current Size (cm) - Depth 0.3 -Total Square Cm 5.76 -Photo Taken No -Epithelialization None Present -Tunneling No -Undermining/Tunneling No -Circular Undermining No -Exudate Amt Small -Exudate Type Serosanguineous -Wound Margin Thickened -Granulation Amt Medium (34-66%) -Granulation Quality Red -Slough/Fibrin Yes -Necrosis Amt Small (1-33%) -Necrotic Tissue Type Adherent Slough -Texture (Mayra-wound Skin Appearance) Assessed, Scarring -Moisture (Mayra-wound Skin Appearance Assessed ) -Color (Mayra-wound Skin Appearance) Assessed, Erythema -Temperature (Mayra-wound Skin No Abnormality Appearance) (Pt Warm) -Tenderness on Palpation (Mayra-wound No Skin Appearance) -Ulcer Cleansing Rinsed/ Irrigated with Saline -Foul Odor after Cleansing No -Anesthetic Used 5% Lidocaine Gel 6. L lumbar back -Combined with other wound No -Current Size (cm) - Length 5.8 -Current Size (cm) - Width 5.2 -Current Size (cm) - Depth 0.1 -Total Square Cm 30.16 -Photo Taken No -Epithelialization Small 1-33% -Tunneling No -Undermining/Tunneling No -Circular Undermining No -Exudate Amt Small -Exudate Type Serosanguineous -Wound Margin Distinct, Outline Attached -Granulation Amt Large (67-100%) -Granulation Quality Red -Slough/Fibrin Yes -Necrosis Amt Small (1-33%) -Necrotic Tissue Type Adherent Slough -Texture (Mayra-wound Skin Appearance) Assessed, Scarring -Moisture (Mayra-wound Skin Appearance Assessed ) -Color (Mayra-wound Skin Appearance) Assessed -Temperature (Mayra-wound Skin No Abnormality Appearance) (Pt Warm) -Tenderness on Palpation (Mayra-wound No Skin Appearance) -Ulcer Cleansing Rinsed/ Irrigated with Saline -Foul Odor after Cleansing No -Anesthetic Used 5% Lidocaine Gel 5. R scapula -Combined with other wound No -Current Size (cm) - Length 8.3 -Current Size (cm) - Width 9.4 -Current Size (cm) - Depth 0.1 -Total Square Cm 78.02 -Photo Taken No -Epithelialization Small 1-33% -Tunneling No -Undermining/Tunneling No -Circular Undermining No -Exudate Amt Small -Exudate Type Serosanguineous -Wound Margin Distinct, Outline Attached -Granulation Amt Large (67-100%) -Granulation Quality Red -Slough/Fibrin Yes -Necrosis Amt Small (1-33%) -Necrotic Tissue Type Adherent Slough -Texture (Mayra-wound Skin Appearance) Assessed, Scarring -Moisture (Mayra-wound Skin Appearance Assessed ) -Color (Mayra-wound Skin Appearance) Assessed -Temperature (Mayra-wound Skin No Abnormality Appearance) (Pt Warm) -Tenderness on Palpation (Mayra-wound No Skin Appearance) -Ulcer Cleansing Rinsed/ Irrigated with Saline -Foul Odor after Cleansing No -Anesthetic Used 5% Lidocaine Gel WC - Nurse 2 - General Ulcer CM Notes Start: 09/16/19 13:40 Freq: Status: Active Protocol: Activity Type Activity Date Activity User E-Sign Co-Sign Detail Recorded Client Recorded Date Recorded By Document 09/23/19 13:46 [email or web address] [id number] 09/23/19 13:54 [facility] 09/23/19 13:46 Wound Center Nurse 2 [Procedure/Treatment] #7 R Lower Side -Time 13:51 -Correct Patient Yes -Correct Side, Site, Position Yes -Correct Procedure Yes -Procedure Performed Yes -Type of Procedure Debridement -Clinical Debridement Subcutaneous -Post Debridement Size (cm) - Length 1.4 -Post Debridement Size (cm) - Width 3.5 -Post Debridement Size (cm) - Depth 0.2 -Total Square Cm 4.90 -Wound/Ulcer Outcome Not Healed -Ulcer Cleansing Rinsed/ Irrigated with Saline -Foul Odor after Cleansing No -Bioengineered Tissue No -Bleeding Controlled with Pressure -Offloading No -Treatment Response Procedure Tolerated Well 6. L lumbar back -Time 13:52 -Correct Patient Yes -Correct Side, Site, Position Yes -Correct Procedure Yes -Procedure Performed Yes -Type of Procedure Debridement -Clinical Debridement Subcutaneous -Post Debridement Size (cm) - Length 4.0 -Post Debridement Size (cm) - Width 11.7 -Post Debridement Size (cm) - Depth 0.2 -Total Square Cm 46.80 -Wound/Ulcer Outcome Not Healed -Ulcer Cleansing Rinsed/ Irrigated with Saline -Foul Odor after Cleansing No -Bioengineered Tissue No -Bleeding Controlled with Pressure -Offloading No -Treatment Response Procedure Tolerated Well 5. R scapula -Time 13:52 -Correct Patient Yes -Correct Side, Site, Position Yes -Correct Procedure Yes -Procedure Performed Yes -Type of Procedure Debridement -Clinical Debridement Subcutaneous -Post Debridement Size (cm) - Length 8.3 -Post Debridement Size (cm) - Width 2.7 -Post Debridement Size (cm) - Depth 0.3 -Total Square Cm 22.41 -Wound/Ulcer Outcome Not Healed -Ulcer Cleansing Rinsed/ Irrigated with Saline -Foul Odor after Cleansing No -Bioengineered Tissue No -Bleeding Controlled with Pressure -Offloading No -Treatment Response Procedure Tolerated Well [See Physician Procedure note for Specifics] Pain Scale: 0-10 Numeric [Pain] -Is Patient Pain Free? Yes Musculoskeletal: No Tenderness to Palpation of Joints or Extremities Neurological: Neuro grossly intact Psych/Mental Status: Normal Affect, Appropriate Debridement Note Post-Debridement Measurements/Treatment WC - Nurse 2 - General Ulcer CM Notes Start: 09/16/19 13:40 Freq: Status: Active Protocol: Activity Type Activity Date Activity User E-Sign Co-Sign Detail Recorded Client Recorded Date Recorded By Document 09/16/19 16:17 [email or web address] [id number] 09/16/19 16:20 Document 09/23/19 13:46 [id number] 09/23/19 13:54 09/16/19 09/23/19 16:17 13:46 Wound Center Nurse 2 #7 R Lower Side -Time 14:03 13:51 -Correct Patient Yes Yes -Correct Side, Site, Position Yes Yes -Correct Procedure Yes Yes -Procedure Performed Yes Yes -Type of Procedure Debridement Debridement -Clinical Debridement Subcutaneous Subcutaneous -Post Debridement Size (cm) - Length 1.6 1.4 -Post Debridement Size (cm) - Width 3.5 3.5 -Post Debridement Size (cm) - Depth 0.2 0.2 -Total Square Cm 5.60 4.90 -Wound/Ulcer Outcome Not Healed Not Healed -Ulcer Cleansing Rinsed/ Rinsed/ Irrigated with Irrigated with Saline Saline -Foul Odor after Cleansing No No -Bioengineered Tissue No -Bleeding Controlled with Pressure Pressure -Offloading No -Treatment Response Procedure Procedure Tolerated Well Tolerated Well 6. L lumbar back -Time 14:03 13:52 -Correct Patient Yes Yes -Correct Side, Site, Position Yes Yes -Correct Procedure Yes Yes -Procedure Performed Yes Yes -Type of Procedure Debridement Debridement -Clinical Debridement Subcutaneous Subcutaneous -Post Debridement Size (cm) - Length 5 4.0 -Post Debridement Size (cm) - Width 12.8 11.7 -Post Debridement Size (cm) - Depth 0.3 0.2 -Total Square Cm 64.0 46.80 -Wound/Ulcer Outcome Not Healed Not Healed -Ulcer Cleansing Rinsed/ Rinsed/ Irrigated with Irrigated with Saline Saline -Foul Odor after Cleansing No No -Bioengineered Tissue No -Bleeding Controlled with Pressure Pressure -Offloading No -Treatment Response Procedure Procedure Tolerated Well Tolerated Well 5. R scapula -Time 14:03 13:52 -Correct Patient Yes Yes -Correct Side, Site, Position Yes Yes -Correct Procedure Yes Yes -Procedure Performed Yes Yes -Type of Procedure Debridement Debridement -Clinical Debridement Subcutaneous Subcutaneous -Post Debridement Size (cm) - Length 3.2 8.3 -Post Debridement Size (cm) - Width 9 2.7 -Post Debridement Size (cm) - Depth 0.2 0.3 -Total Square Cm 28.8 22.41 -Wound/Ulcer Outcome Not Healed Not Healed -Ulcer Cleansing Rinsed/ Rinsed/ Irrigated with Irrigated with Saline Saline -Foul Odor after Cleansing No No -Bioengineered Tissue No -Bleeding Controlled with Pressure Pressure -Offloading No -Treatment Response Procedure Procedure Tolerated Well Tolerated Well Pain Scale: 0-10 Numeric Is Patient Pain Free? Yes Yes Wound debrided: middle lateral back ulcer Laterality: Right Type of Debridement: Excisional debridement Anesthesia Used: 5% Lidocaine Gel Depth: Down to and including healthy tissue, in the subcutaneous layer Percentage of wound debrided: 100 Instrument Used: 5mm curette Tissue Removed: Subcutaneous tissue and slough Severity: Fat Layer Exposed Amount of bleeding with debridement: Mild Bleeding Controlled with: Pressure Patient tolerated procedure well - Additional Wound Wound debrided: middle lateral back ulcer Laterality: Left Type of Debridement: Excisional debridement Anesthesia Used: 5% Lidocaine Gel Depth: Down to and including healthy tissue, in the subcutaneous layer Percentage of wound debrided: 100 Instrument Used: 7mm curette Tissue Removed: Subcutaneous tissue and slough Severity: Fat Layer Exposed Bleeding Controlled with: Pressure Patient tolerated procedure: Patient tolerated procedure well - Additional Wound Wound debrided: Flank ulcer Laterality: Right Type of Debridement: Excisional debridement Anesthesia Used: 5% Lidocaine Gel Depth: Down to and including healthy tissue, in the subcutaneous layer Percentage of wound debrided: 100 Instrument Used: 3mm curette Tissue Removed: Subcutaneous tissue and slough Severity: Fat Layer Exposed Amount of bleeding with debridement: Mild Bleeding Controlled with: Pressure Patient tolerated procedure: Patient tolerated procedure well Assessment/Plan Active Problems (Last Reviewed 04/30/19 @ 09:[address] 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 Nonhealing diabetic ulcer right lateral middle back. 2. Nonhealing diabetic ulcer left lateral middle back. 3. Nonhealing diabetic ulcer right posterior flank. 4. Diabetes mellitus. 5. s/p surgical preparation right lateral middle back with incision and drainage and excisional debridement nonhealing infected diabetic ulcer (66 cm2) and surgical preparation left lateral middle back with incision and drainage and excisional debridement nonhealing infected diabetic ulcer (137.75 cm2). Plan: Took a wound VAC holiday for one week which helped with his pain. His back ulcers are a nice beefy pink and the muscle is completely covered by granulation tissue. We will discontinue the wound VAC and do daily Silver dressing changes. He would benefit from an advanced wound healing product such as Epifix to help with the wound healing process. Since he has 3 ulcers, I would like to start using an advanced would healing product such as Epifix on the right middle lateral back. The right flank ulcer has increased pain. Cultured the ulcer today, 09/23/19. Will continue the Medihoney until he completes the tube then he can start daily silver dressing changes to the flank ulcer. He has finished the IV Vancomycin for the MRSE. Labs from 07/22/19- Prealbumin 18.7 and HgA1c 5.9. Encourage nutritional supplementation with protein to help the healing process. His weekly labs while on Vancomycin showed from 08/26/19 a Creatinine of 1.08. The AST from 5/11/20 was 17. The ALT from 08/26/19 was 17. The Alkaline Phosphatase from 08/26/19 was 25. The Total Bilirubin from 08/26/19 was 0.3. Followup one week. If the right flank ulcer shows a plateau in the healing process, can consider operative debridement and complex secondary wound closure. [id number]: [id number] Pooja subq tissue 20 sq cm/< Add On Codes: [id number] Pooja subq tissue add-on - x3
[2019-09-30 11:22] VITALS: RESP 16; TEMP 36.9; BMI 28.2
--- NOTE | 2019-09-30 14:45 | PCM.WC.PN ---
Type of Wound Date of Service: 09/30/19 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: Nonhealing diabetic ulcers left lateral middle back and right lateral middle back and nonhealing diabetic ulcer right flank. History of Wound: Surgery 07/23/19 - 1. Surgical preparation right lateral middle back with incision and drainage and excisional debridement nonhealing infected diabetic ulcer (66 cm2). 2. Surgical preparation left lateral middle back with incision and drainage and excisional debridement nonhealing infected diabetic ulcer (137.75 cm2). Wound care - Silver dressings. He has persistent pain in the right flank ulcer and a wound culture was obtained on 09/23/19 and it showed Staphylococcus aureus. He was started on Doxycycline. Operative cultures from 07/23/19 were positive for resistant Staphylococcus epidermidis (MRSE). He was started on IV Vancomycin since he had been on Doxycyline, Cleocin, and Zyvox in the past for the persistent Staph infections. Surgery 02/18/19 - 1. Surgical preparation right lateral middle back with excision nonhealing diabetic ulcer. 2. Reconstruction with STSG from right posterior flank (21 cm2) and placement AmnioFill Placental Connective Tissue Powder (250 mg) and placement TAYLOR NPWT. 3. Surgical preparation left lateral middle back with excision nonhealing diabetic ulcer. 4. Reconstruction with STSG from left posterior flank (48 cm2) and placement of AmnioFill Placental Connective Tissue Powder (500 mg) and placement of TAYLOR NPWT. He developed compromise to the healing skin grafts that necessitated HBO Treatments. He has had persistent cultures over the past year showing MRSE, Staphylococcus aureus, Methicillin resistant Staphylococcus haemolyticus, Staphylococcus lugdunensis, and Salma albicans. He has been on Doxycycline, Cleocin, and Zyvox, and Diflucan in the past. Prealbumin from 07/22/19 was 18.7. Encourage nutritonal supplementation with protein to help the healing process. His HgbA1c from 07/22/19 was 5.9. His weekly labs while on Vancomycin showed from 08/26/19 a Creatinine of 1.08. The AST from 08/26/19 was 17. The ALT from 08/26/19 was 17. The Alkaline Phosphatase from 08/26/19 was 25. The Total Bilirubin from 08/26/19 was 0.3. Today he denies fever. His appetite is good. Progress of Wound: Improved. - Physical Exam Vital Signs Temp Pulse Resp BP Pulse Ox 98.5 F 81 16 122/58 H 97 09/30/19 11:22 09/16/19 13:40 09/30/19 11:22 09/16/19 13:40 09/16/19 00:21 Wound Measurements and Assessment WC - Nurse 1 - General Ulcer Measurement Start: 09/16/19 13:40 Freq: Status: Active Protocol: Activity Type Activity Date Activity User E-Sign Co-Sign Detail Recorded Client Recorded Date Recorded By Document 09/30/19 11:22 [facility] [id number] 09/30/19 11:31 [facility] 09/30/19 11:22 Wound Center Nurse 1 [Ulcer Assessment] #7 R Lower Side -Combined with other wound No -Current Size (cm) - Length 1.9 -Current Size (cm) - Width 3.2 -Current Size (cm) - Depth 0.2 -Total Square Cm 6.08 -Photo Taken No -Epithelialization Small 1-33% -Tunneling No -Undermining/Tunneling No -Circular Undermining No -Exudate Amt Small -Exudate Type Serosanguineous -Wound Margin Distinct, Outline Attached -Granulation Amt Small (1-33%) -Granulation Quality Red -Slough/Fibrin Yes -Necrosis Amt Medium (34-66%) -Necrotic Tissue Type Adherent Slough -Texture (Mayra-wound Skin Appearance) Assessed, Scarring -Moisture (Mayra-wound Skin Appearance Assessed ) -Color (Mayra-wound Skin Appearance) Assessed -Temperature (Mayra-wound Skin No Abnormality Appearance) (Pt Warm) -Tenderness on Palpation (Mayra-wound Yes Skin Appearance) -Ulcer Cleansing Rinsed/ Irrigated with Saline -Foul Odor after Cleansing No -Anesthetic Used 5% Lidocaine Gel 6. L lumbar back -Combined with other wound No -Current Size (cm) - Length 7.9 -Current Size (cm) - Width 8.3 -Current Size (cm) - Depth 0.1 -Total Square Cm 65.57 -Photo Taken No -Epithelialization Small 1-33% -Tunneling No -Undermining/Tunneling No -Circular Undermining No -Exudate Amt Small -Exudate Type Serosanguineous -Wound Margin Distinct, Outline Attached -Granulation Amt Large (67-100%) -Granulation Quality Red -Slough/Fibrin Yes -Necrosis Amt Small (1-33%) -Necrotic Tissue Type Adherent Slough -Texture (Mayra-wound Skin Appearance) Assessed, Scarring -Moisture (Mayra-wound Skin Appearance Assessed ) -Color (Mayra-wound Skin Appearance) Assessed -Temperature (Mayra-wound Skin No Abnormality Appearance) (Pt Warm) -Tenderness on Palpation (Mayra-wound No Skin Appearance) -Ulcer Cleansing Rinsed/ Irrigated with Saline -Foul Odor after Cleansing No -Anesthetic Used 5% Lidocaine Gel 5. R scapula -Combined with other wound No -Current Size (cm) - Length 5.3 -Current Size (cm) - Width 2.5 -Current Size (cm) - Depth 0.1 -Total Square Cm 13.25 -Photo Taken No -Epithelialization Small 1-33% -Tunneling No -Undermining/Tunneling No -Circular Undermining No -Exudate Amt Small -Exudate Type Serosanguineous -Wound Margin Distinct, Outline Attached -Granulation Amt Large (67-100%) -Granulation Quality Red -Slough/Fibrin Yes -Necrosis Amt Small (1-33%) -Necrotic Tissue Type Adherent Slough -Texture (Mayra-wound Skin Appearance) Assessed, Scarring -Moisture (Mayra-wound Skin Appearance Assessed ) -Color (Mayra-wound Skin Appearance) Assessed -Temperature (Mayra-wound Skin No Abnormality Appearance) (Pt Warm) -Tenderness on Palpation (Mayra-wound No Skin Appearance) -Ulcer Cleansing Rinsed/ Irrigated with Saline -Foul Odor after Cleansing No -Anesthetic Used 5% Lidocaine Gel WC - Nurse 2 - General Ulcer CM Notes Start: 09/16/19 13:40 Freq: Status: Active Protocol: Activity Type Activity Date Activity User E-Sign Co-Sign Detail Recorded Client Recorded Date Recorded By Document 09/30/19 11:43 [facility] [id number] 09/30/19 11:47 [facility] 09/30/19 11:43 Wound Center Nurse 2 [Procedure/Treatment] #7 R Lower Side -Time 11:43 -Correct Patient Yes -Correct Side, Site, Position Yes -Correct Procedure Yes -Procedure Performed Yes -Type of Procedure Debridement -Clinical Debridement Subcutaneous -Post Debridement Size (cm) - Length 1.7 -Post Debridement Size (cm) - Width 3.8 -Post Debridement Size (cm) - Depth 0.2 -Total Square Cm 6.46 -Wound/Ulcer Outcome Not Healed -Ulcer Cleansing Rinsed/ Irrigated with Saline -Foul Odor after Cleansing No -Bioengineered Tissue No -Bleeding Controlled with Pressure -Offloading No -Treatment Response Procedure Tolerated Well 6. L lumbar back -Time 11:43 -Correct Patient Yes -Correct Side, Site, Position Yes -Correct Procedure Yes -Procedure Performed Yes -Type of Procedure Debridement -Clinical Debridement Subcutaneous -Post Debridement Size (cm) - Length 11.4 -Post Debridement Size (cm) - Width 3.5 -Post Debridement Size (cm) - Depth 0.2 -Total Square Cm 39.90 -Wound/Ulcer Outcome Not Healed -Ulcer Cleansing Rinsed/ Irrigated with Saline -Bleeding Controlled with Pressure -Offloading No -Treatment Response Procedure Tolerated Well 5. R scapula -Time 11:45 -Correct Patient Yes -Correct Side, Site, Position Yes -Correct Procedure Yes -Procedure Performed Yes -Type of Procedure Debridement -Clinical Debridement Subcutaneous -Post Debridement Size (cm) - Length 7.0 -Post Debridement Size (cm) - Width 1.9 -Post Debridement Size (cm) - Depth 0.1 -Total Square Cm 13.30 -Wound/Ulcer Outcome Not Healed -Ulcer Cleansing Rinsed/ Irrigated with Saline -Foul Odor after Cleansing No -Bioengineered Tissue No -Bleeding Controlled with Pressure -Offloading No -Treatment Response Procedure Tolerated Well [See Physician Procedure note for Specifics] Pain Scale: 0-10 Numeric [Pain] -Is Patient Pain Free? Yes Debridement Note Post-Debridement Measurements/Treatment WC - Nurse 2 - General Ulcer CM Notes Start: 09/16/19 13:40 Freq: Status: Active Protocol: Activity Type Activity Date Activity User E-Sign Co-Sign Detail Recorded Client Recorded Date Recorded By Document 09/16/19 16:17 PL [id number] 09/16/19 16:20 PL Document 09/23/19 13:46 [id number] 09/23/19 13:54 Document 09/30/19 11:43 [id number] 09/30/19 11:47 09/16/19 09/23/19 09/30/19 16:17 13:46 11:43 Wound Center Nurse 2 #7 R Lower Side -Time 14:03 13:51 11:43 -Correct Patient Yes Yes Yes -Correct Side, Site, Position Yes Yes Yes -Correct Procedure Yes Yes Yes -Procedure Performed Yes Yes Yes -Type of Procedure Debridement Debridement Debridement -Clinical Debridement Subcutaneous Subcutaneous Subcutaneous -Post Debridement Size (cm) - Length 1.6 1.4 1.7 -Post Debridement Size (cm) - Width 3.5 3.5 3.8 -Post Debridement Size (cm) - Depth 0.2 0.2 0.2 -Total Square Cm 5.60 4.90 6.46 -Wound/Ulcer Outcome Not Healed Not Healed Not Healed -Ulcer Cleansing Rinsed/ Rinsed/ Rinsed/ Irrigated with Irrigated with Irrigated with Saline Saline Saline -Foul Odor after Cleansing No No No -Bioengineered Tissue No No -Bleeding Controlled with Pressure Pressure Pressure -Offloading No No -Treatment Response Procedure Procedure Procedure Tolerated Well Tolerated Well Tolerated Well 6. L lumbar back -Time 14: 13:52 11:43 -Correct Patient Yes Yes Yes -Correct Side, Site, Position Yes Yes Yes -Correct Procedure Yes Yes Yes -Procedure Performed Yes Yes Yes -Type of Procedure Debridement Debridement Debridement -Clinical Debridement Subcutaneous Subcutaneous Subcutaneous -Post Debridement Size (cm) - Length 5 4.0 11.4 -Post Debridement Size (cm) - Width 12.8 11.7 3.5 -Post Debridement Size (cm) - Depth 0.3 0.2 0.2 -Total Square Cm 64.0 46.80 39.90 -Wound/Ulcer Outcome Not Healed Not Healed Not Healed -Ulcer Cleansing Rinsed/ Rinsed/ Rinsed/ Irrigated with Irrigated with Irrigated with Saline Saline Saline -Foul Odor after Cleansing No No -Bioengineered Tissue No -Bleeding Controlled with Pressure Pressure Pressure -Offloading No No -Treatment Response Procedure Procedure Procedure Tolerated Well Tolerated Well Tolerated Well 5. R scapula -Time 14:03 13:52 11:45 -Correct Patient Yes Yes Yes -Correct Side, Site, Position Yes Yes Yes -Correct Procedure Yes Yes Yes -Procedure Performed Yes Yes Yes -Type of Procedure Debridement Debridement Debridement -Clinical Debridement Subcutaneous Subcutaneous Subcutaneous -Post Debridement Size (cm) - Length 3.2 8.3 7.0 -Post Debridement Size (cm) - Width 9 2.7 1.9 -Post Debridement Size (cm) - Depth 0.2 0.3 0.1 -Total Square Cm 28.8 22.41 13.30 -Wound/Ulcer Outcome Not Healed Not Healed Not Healed -Ulcer Cleansing Rinsed/ Rinsed/ Rinsed/ Irrigated with Irrigated with Irrigated with Saline Saline Saline -Foul Odor after Cleansing No No No -Bioengineered Tissue No No -Bleeding Controlled with Pressure Pressure Pressure -Offloading No No -Treatment Response Procedure Procedure Procedure Tolerated Well Tolerated Well Tolerated Well Pain Scale: 0-10 Numeric Is Patient Pain Free? Yes Yes Yes Wound debrided: #5 Right lateral middle back. Laterality: Right Wound Grade/Stage: 2. Type of Debridement: Excisional debridement Anesthesia Used: 4% Lidocaine Solution Depth: Down to and including healthy tissue, in the subcutaneous layer Percentage of wound debrided: 100 Instrument Used: 5mm curette Tissue Removed: subcutaneous tissue. Severity: Fat Layer Exposed Amount of bleeding with debridement: Mild Bleeding Controlled with: Pressure Patient tolerated procedure well - Additional Wound Wound debrided: #6 Left middle lateral back. Laterality: Left Wound Grade/Stage: 2. Type of Debridement: Excisional debridement Anesthesia Used: 4% Lidocaine Solution Depth: Down to and including healthy tissue, in the subcutaneous layer Percentage of wound debrided: 100 Instrument Used: 5mm curette Tissue Removed: subcutaneous tissue. Severity: Fat Layer Exposed Amount of bleeding with debridement: Mild Bleeding Controlled with: Pressure Patient tolerated procedure: Patient tolerated procedure well - Additional Wound Wound debrided: #7 Right flank. Laterality: Right Wound Grade/Stage: 2. Type of Debridement: Excisional debridement Anesthesia Used: 4% Lidocaine Solution Depth: Down to and including healthy tissue, in the subcutaneous layer Percentage of wound debrided: 100 Instrument Used: 3mm curette Tissue Removed: subcutaneous tissue. Severity: Fat Layer Exposed Amount of bleeding with debridement: Mild Bleeding Controlled with: Pressure Patient tolerated procedure: Patient tolerated procedure well Assessment/Plan Active Problems (Last Reviewed 04/30/19 @ 09:[address] 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 Nonhealing diabetic ulcer right lateral middle back. 2. Nonhealing diabetic ulcer left lateral middle back. 3. Nonhealing diabetic ulcer right posterior flank. 4. Diabetes mellitus. 5. s/p surgical preparation right lateral middle back with incision and drainage and excisional debridement nonhealing infected diabetic ulcer (66 cm2) and surgical preparation left lateral middle back with incision and drainage and excisional debridement nonhealing infected diabetic ulcer (137.75 cm2). Plan: Continue Silver dressing changes. He would benefit from an advanced wound healing product such as Epifix to help with the wound healing process. Since he has 3 ulcers, I would like to start using an advanced would healing product such as Epifix on the right middle lateral back. The right flank ulcer has increased pain. Cultured the ulcer today on 09/23/19. It showed Staphylococcus aureus. He was placed on Doxycycline. He has finished the IV Vancomycin for the MRSE. Labs from 07/22/19- Prealbumin 18.7 and HgA1c 5.9. Encourage nutritional supplementation with protein to help the healing process. If the right flank ulcer shows a plateau in the healing process, can consider operative debridement and complex secondary wound closure. Followup one week. [id number]: [id number] Pooja subq tissue 20 sq cm/< - ICD-10 - L98.492, L03.312, E11.9, T86.829 Add On Codes: [id number] Pooja subq tissue add-on - X2 Units ICD-10 - L98.492, L03.312, E11.9, T86.829
[2019-10-07 11:43] VITALS: BP 110/68; PULSE 82; RESP 20; TEMP 36.3; BMI 28.2
--- NOTE | 2019-10-07 13:28 | PCM.WC.PN ---
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 Comment: Nonhealing ulcers right lateral middle back and left lateral middle back (2) Dehiscence of external surgical wound Status: Chronic Qualifiers: Encounter type: initial encounter Qualified Code(s): T81.31XA - Disruption of external operation (surgical) wound, not elsewhere classified, initial encounter Code(s): T81.31XA - Disruption of external operation (surgical) wound, not elsewhere classified, initial encounter (3) Type 2 diabetes mellitus Status: Chronic Qualifiers: Code(s): E11.9 - Type 2 diabetes mellitus without complications Type of Wound Date of Service: 10/07/19 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: Nonhealing diabetic ulcers left lateral middle back and right lateral middle back and nonhealing diabetic ulcer right flank. History of Wound: Surgery 07/23/19 - 1. Surgical preparation right lateral middle back with incision and drainage and excisional debridement nonhealing infected diabetic ulcer (66 cm2). 2. Surgical preparation left lateral middle back with incision and drainage and excisional debridement nonhealing infected diabetic ulcer (137.75 cm2). Wound care - Epifix #1 on right middle lateral back and right flank ulcers. Daily silver dressing changes to left middle back ulcer. He has persistent pain in the right flank ulcer and a wound culture was obtained on 09/23/19 and it showed Staphylococcus aureus. He was started on Doxycycline. Operative cultures from 07/23/19 were positive for resistant Staphylococcus epidermidis (MRSE). He was started on IV Vancomycin since he had been on Doxycyline, Cleocin, and Zyvox in the past for the persistent Staph infections. Surgery 02/18/19 - 1. Surgical preparation right lateral middle back with excision nonhealing diabetic ulcer. 2. Reconstruction with STSG from right posterior flank (21 cm2) and placement AmnioFill Placental Connective Tissue Powder (250 mg) and placement TAYLOR NPWT. 3. Surgical preparation left lateral middle back with excision nonhealing diabetic ulcer. 4. Reconstruction with STSG from left posterior flank (48 cm2) and placement of AmnioFill Placental Connective Tissue Powder (500 mg) and placement of TAYLOR NPWT. He developed compromise to the healing skin grafts that necessitated HBO Treatments. He has had persistent cultures over the past year showing MRSE, Staphylococcus aureus, Methicillin resistant Staphylococcus haemolyticus, Staphylococcus lugdunensis, and Salma albicans. He has been on Doxycycline, Cleocin, and Zyvox, and Diflucan in the past. Prealbumin from 07/22/19 was 18.7. Encourage nutritonal supplementation with protein to help the healing process. His HgbA1c from 07/22/19 was 5.9. His weekly labs while on Vancomycin showed from 08/26/19 a Creatinine of 1.08. The AST from 08/26/19 was 17. The ALT from 08/26/19 was 17. The Alkaline Phosphatase from 08/26/19 was 25. The Total Bilirubin from 08/26/19 was 0.3. Today he denies fever. His appetite is good. Progress of Wound: Improved. - Physical Exam Vital Signs Temp Pulse Resp BP Pulse Ox 97.4 F L 82 20 H 110/68 97 10/07/19 11:43 10/07/19 11:43 10/07/19 11:43 10/07/19 11:43 09/16/19 00:21 General: Alert, Oriented x3, Cooperative HEENT: Atraumatic Oral: Moist Mucosa Lungs: Normal air movement Cardiovascular: Regular rate Abdomen: Soft Extremities: Capillary Refill Less than 3 Seconds Skin: Ulcer/ Wound - Left middle lateral back ulcer, right middle lateral back ulcer and right flank ulcer. All ulcers are beefy pink. The two back ulcers have shown great improvement with granulation and decreased depth. Wound Measurements and Assessment WC - Nurse 1 - General Ulcer Measurement Start: 09/16/19 13:40 Freq: Status: Active Protocol: Activity Type Activity Date Activity User E-Sign Co-Sign Detail Recorded Client Recorded Date Recorded By Document 10/07/19 11:43 [id number] 10/07/19 11:51 BS 10/07/19 11:43 Wound Center Nurse 1 [Ulcer Assessment] #7 R Lower Side -Combined with other wound No -Current Size (cm) - Length 1.7 -Current Size (cm) - Width 3.3 -Current Size (cm) - Depth 0.2 -Total Square Cm 5.61 -Photo Taken No -Granulation Quality [place],Red -Texture (Mayra-wound Skin Appearance) Assessed, Scarring -Moisture (Mayra-wound Skin Appearance No Abnormality, ) Assessed -Color (Mayra-wound Skin Appearance) Assessed, Hemosiderin Staining -Temperature (Mayra-wound Skin No Abnormality Appearance) (Pt Warm) -Tenderness on Palpation (Mayra-wound Yes Skin Appearance) -Ulcer Cleansing Rinsed/ Irrigated with Saline -Foul Odor after Cleansing No -Anesthetic Used 4% Lidocaine Solution 6. L lumbar back -Combined with other wound No -Current Size (cm) - Length 3.4 -Current Size (cm) - Width 10.2 -Current Size (cm) - Depth 0.1 -Total Square Cm 34.68 -Granulation Quality [place],Red -Texture (Mayra-wound Skin Appearance) Assessed, Scarring -Moisture (Mayra-wound Skin Appearance No Abnormality, ) Assessed -Color (Mayra-wound Skin Appearance) Assessed, Hemosiderin Staining -Temperature (Mayra-wound Skin No Abnormality Appearance) (Pt Warm) -Tenderness on Palpation (Mayra-wound Yes Skin Appearance) -Ulcer Cleansing Rinsed/ Irrigated with Saline -Foul Odor after Cleansing No -Anesthetic Used 4% Lidocaine Solution 5. R scapula -Combined with other wound No -Current Size (cm) - Length 1.8 -Current Size (cm) - Width 4.1 -Current Size (cm) - Depth 0.1 -Total Square Cm 7.38 -Photo Taken No -Granulation Quality [place],Red -Texture (Mayra-wound Skin Appearance) Assessed, Scarring -Moisture (Mayra-wound Skin Appearance No Abnormality, ) Assessed -Color (Mayra-wound Skin Appearance) Assessed, Hemosiderin Staining -Temperature (Mayra-wound Skin No Abnormality Appearance) (Pt Warm) -Tenderness on Palpation (Mayra-wound Yes Skin Appearance) -Ulcer Cleansing Rinsed/ Irrigated with Saline -Foul Odor after Cleansing No -Anesthetic Used 4% Lidocaine Solution WC - Nurse 2 - General Ulcer CM Notes Start: 09/16/19 13:40 Freq: Status: Active Protocol: Activity Type Activity Date Activity User E-Sign Co-Sign Detail Recorded Client Recorded Date Recorded By Document 10/07/19 12:29 [facility] [id number] 10/07/19 12:41 [facility] 10/07/19 12:29 Wound Center Nurse 2 [Procedure/Treatment] #7 R Lower Side -Time 12:31 -Correct Patient Yes -Correct Side, Site, Position Yes -Correct Procedure Yes -Procedure Performed Yes -Type of Procedure Debridement -Clinical Debridement Subcutaneous -Post Debridement Size (cm) - Length 2.0 -Post Debridement Size (cm) - Width 3.7 -Post Debridement Size (cm) - Depth 0.2 -Total Square Cm 7.40 -Wound/Ulcer Outcome Not Healed -Ulcer Cleansing Rinsed/ Irrigated with Saline -Foul Odor after Cleansing No -Bioengineered Tissue Yes -Type of bioengineered Tissue EPIFIX -Expiration Date 04/17/24 -Product Lot Number [id number] -Percent Used 100 -Saline Lot Number [id number] -Bleeding Controlled with Pressure -Offloading No -Treatment Response Procedure Tolerated Well 6. L lumbar back -Time 12:29 -Correct Patient Yes -Correct Side, Site, Position Yes -Correct Procedure Yes -Procedure Performed Yes -Type of Procedure Debridement -Clinical Debridement Subcutaneous -Post Debridement Size (cm) - Length 10.4 -Post Debridement Size (cm) - Width 2.8 -Post Debridement Size (cm) - Depth 0.2 -Total Square Cm 29.12 -Wound/Ulcer Outcome Not Healed -Ulcer Cleansing Rinsed/ Irrigated with Saline -Foul Odor after Cleansing No -Bioengineered Tissue No -Bleeding Controlled with Pressure -Offloading No -Treatment Response Procedure Tolerated Well 5. R scapula -Time 12:30 -Correct Patient Yes -Correct Side, Site, Position Yes -Correct Procedure Yes -Procedure Performed Yes -Type of Procedure Debridement -Clinical Debridement Subcutaneous -Post Debridement Size (cm) - Length 0.7 -Post Debridement Size (cm) - Width 6.5 -Post Debridement Size (cm) - Depth 0.2 -Total Square Cm 4.55 -Wound/Ulcer Outcome Not Healed -Ulcer Cleansing Rinsed/ Irrigated with Saline -Foul Odor after Cleansing No -Bioengineered Tissue Yes -Type of bioengineered Tissue EPIFIX -Expiration Date 04/17/24 -Product Lot Number [id number] -Percent Used 100 -Saline Lot Number [id number] -Bleeding Controlled with Pressure -Offloading No -Treatment Response Procedure Tolerated Well [See Physician Procedure note for Specifics] Pain Scale: 0-10 Numeric [Pain] -Is Patient Pain Free? Yes Musculoskeletal: No Tenderness to Palpation of Joints or Extremities Neurological: Neuro grossly intact Psych/Mental Status: Normal Affect, Appropriate Debridement Note Post-Debridement Measurements/Treatment WC - Nurse 2 - General Ulcer CM Notes Start: 06/01/20 13:40 Freq: Status: Active Protocol: Activity Type Activity Date Activity User E-Sign Co-Sign Detail Recorded Client Recorded Date Recorded By Document 09/16/19 16:17 PL [id number] 09/16/19 16:20 PL Document 09/23/19 13:46 JF [id number] 09/23/19 13:54 Document 09/30/19 11:43 [id number] 09/30/19 11:47 JF Document 10/07/19 12:29 [id number] 10/07/19 12:41 09/16/19 09/23/19 09/30/19 16:17 13:46 11:43 Wound Center Nurse 2 #7 R Lower Side -Time 14:03 13:51 11:43 -Correct Patient Yes Yes Yes -Correct Side, Site, Position Yes Yes Yes -Correct Procedure Yes Yes Yes -Procedure Performed Yes Yes Yes -Type of Procedure Debridement Debridement Debridement -Clinical Debridement Subcutaneous Subcutaneous Subcutaneous -Post Debridement Size (cm) - Length 1.6 1.4 1.7 -Post Debridement Size (cm) - Width 3.5 3.5 3.8 -Post Debridement Size (cm) - Depth 0.2 0.2 0.2 -Total Square Cm 5.60 4.90 6.46 -Wound/Ulcer Outcome Not Healed Not Healed Not Healed -Ulcer Cleansing Rinsed/ Rinsed/ Rinsed/ Irrigated with Irrigated with Irrigated with Saline Saline Saline -Foul Odor after Cleansing No No No -Bioengineered Tissue No No -Type of bioengineered Tissue -Expiration Date -Product Lot Number -Percent Used -Saline Lot Number -Bleeding Controlled with Pressure Pressure Pressure -Offloading No No -Treatment Response Procedure Procedure Procedure Tolerated Well Tolerated Well Tolerated Well 6. L lumbar back -Time 14:03 13:52 11:43 -Correct Patient Yes Yes Yes -Correct Side, Site, Position Yes Yes Yes -Correct Procedure Yes Yes Yes -Procedure Performed Yes Yes Yes -Type of Procedure Debridement Debridement Debridement -Clinical Debridement Subcutaneous Subcutaneous Subcutaneous -Post Debridement Size (cm) - Length 5 4.0 11.4 -Post Debridement Size (cm) - Width 12.8 11.7 3.5 -Post Debridement Size (cm) - Depth 0.3 0.2 0.2 -Total Square Cm 64.0 46.80 39.90 -Wound/Ulcer Outcome Not Healed Not Healed Not Healed -Ulcer Cleansing Rinsed/ Rinsed/ Rinsed/ Irrigated with Irrigated with Irrigated with Saline Saline Saline -Foul Odor after Cleansing No No -Bioengineered Tissue No -Bleeding Controlled with Pressure Pressure Pressure -Offloading No No -Treatment Response Procedure Procedure Procedure Tolerated Well Tolerated Well Tolerated Well 5. R scapula -Time 14:03 13:52 11:45 -Correct Patient Yes Yes Yes -Correct Side, Site, Position Yes Yes Yes -Correct Procedure Yes Yes Yes -Procedure Performed Yes Yes Yes -Type of Procedure Debridement Debridement Debridement -Clinical Debridement Subcutaneous Subcutaneous Subcutaneous -Post Debridement Size (cm) - Length 3.2 8.3 7.0 -Post Debridement Size (cm) - Width 9 2.7 1.9 -Post Debridement Size (cm) - Depth 0.2 0.3 0.1 -Total Square Cm 28.8 22.41 13.30 -Wound/Ulcer Outcome Not Healed Not Healed Not Healed -Ulcer Cleansing Rinsed/ Rinsed/ Rinsed/ Irrigated with Irrigated with Irrigated with Saline Saline Saline -Foul Odor after Cleansing No No No -Bioengineered Tissue No No -Type of bioengineered Tissue -Expiration Date -Product Lot Number -Percent Used -Saline Lot Number -Bleeding Controlled with Pressure Pressure Pressure -Offloading No No -Treatment Response Procedure Procedure Procedure Tolerated Well Tolerated Well Tolerated Well Pain Scale: 0-10 Numeric Is Patient Pain Free? Yes Yes Yes 10/07/19 12:29 Wound Center Nurse 2 #7 R Lower Side -Time 12:31 -Correct Patient Yes -Correct Side, Site, Position Yes -Correct Procedure Yes -Procedure Performed Yes -Type of Procedure Debridement -Clinical Debridement Subcutaneous -Post Debridement Size (cm) - Length 2.0 -Post Debridement Size (cm) - Width 3.7 -Post Debridement Size (cm) - Depth 0.2 -Total Square Cm 7.40 -Wound/Ulcer Outcome Not Healed -Ulcer Cleansing Rinsed/ Irrigated with Saline -Foul Odor after Cleansing No -Bioengineered Tissue Yes -Type of bioengineered Tissue EPIFIX -Expiration Date 04/17/24 -Product Lot Number [id number] -Percent Used 100 -Saline Lot Number [id number] -Bleeding Controlled with Pressure -Offloading No -Treatment Response Procedure Tolerated Well 6. L lumbar back -Time 12:29 -Correct Patient Yes -Correct Side, Site, Position Yes -Correct Procedure Yes -Procedure Performed Yes -Type of Procedure Debridement -Clinical Debridement Subcutaneous -Post Debridement Size (cm) - Length 10.4 -Post Debridement Size (cm) - Width 2.8 -Post Debridement Size (cm) - Depth 0.2 -Total Square Cm 29.12 -Wound/Ulcer Outcome Not Healed -Ulcer Cleansing Rinsed/ Irrigated with Saline -Foul Odor after Cleansing No -Bioengineered Tissue No -Bleeding Controlled with Pressure -Offloading No -Treatment Response Procedure Tolerated Well 5. R scapula -Time 12:30 -Correct Patient Yes -Correct Side, Site, Position Yes -Correct Procedure Yes -Procedure Performed Yes -Type of Procedure Debridement -Clinical Debridement Subcutaneous -Post Debridement Size (cm) - Length 0.7 -Post Debridement Size (cm) - Width 6.5 -Post Debridement Size (cm) - Depth 0.2 -Total Square Cm 4.55 -Wound/Ulcer Outcome Not Healed -Ulcer Cleansing Rinsed/ Irrigated with Saline -Foul Odor after Cleansing No -Bioengineered Tissue Yes -Type of bioengineered Tissue EPIFIX -Expiration Date 04/17/24 -Product Lot Number [id number] -Percent Used 100 -Saline Lot Number [id number] -Bleeding Controlled with Pressure -Offloading No -Treatment Response Procedure Tolerated Well Pain Scale: 0-10 Numeric Is Patient Pain Free? Yes Wound debrided: middle lateral back ulcer Laterality: Left Type of Debridement: Excisional debridement Anesthesia Used: 5% Lidocaine Gel Depth: Down to and including healthy tissue, in the subcutaneous layer Percentage of wound debrided: 100 Instrument Used: 7mm curette Tissue Removed: Subcutaneous tissue and slough Severity: Fat Layer Exposed Amount of bleeding with debridement: Mild Bleeding Controlled with: Pressure Patient tolerated procedure well - Additional Wound Wound debrided: middle lateral back ulcer Laterality: Right Type of Debridement: Excisional debridement Anesthesia Used: 5% Lidocaine Gel Depth: in the subcutaneous layer Percentage of wound debrided: 100 Instrument Used: 5mm curette Tissue Removed: Subcutaneous tissue and slough Severity: Fat Layer Exposed Amount of bleeding with debridement: Mild Bleeding Controlled with: Pressure Patient tolerated procedure: Patient tolerated procedure well - Additional Wound Wound debrided: flank ulcer Laterality: Right Type of Debridement: Excisional debridement Anesthesia Used: 5% Lidocaine Gel Depth: Down to and including healthy tissue, in the subcutaneous layer Percentage of wound debrided: 100 Instrument Used: 5mm curette Tissue Removed: Subcutaneous tissue and slough Severity: Fat Layer Exposed Amount of bleeding with debridement: Mild Bleeding Controlled with: Pressure Patient tolerated procedure: Patient tolerated procedure well Assessment/Plan Assessment: 1. Nonhealing diabetic ulcer right lateral middle back. 2. Nonhealing diabetic ulcer left lateral middle back. 3. Nonhealing diabetic ulcer right posterior flank. 4. Diabetes mellitus. 5. s/p surgical preparation right lateral middle back with incision and drainage and excisional debridement nonhealing infected diabetic ulcer (66 cm2) and surgical preparation left lateral middle back with incision and drainage and excisional debridement nonhealing infected diabetic ulcer (137.75 cm2). Plan: Wound care - Epifix #1 to right middle lateral back ulcer and right flank ulcer. Both were covered with wound vail. Left middle lateral back ulcer will have daily aquacel- Ag dressing changes. Since he has 3 ulcers, I would like to start using an advanced would healing product such as Epifix on the right middle lateral back. Culture of right flank ulcer from 09/23/19 showed Staphylococcus aureus. He was placed on Doxycycline. He has finished the IV Vancomycin for the MRSE. Labs from 07/22/19- Prealbumin 18.7 and HgA1c 5.9. Encourage nutritional supplementation with protein to help the healing process. If the right flank ulcer shows a plateau in the healing process, can consider operative debridement and complex secondary wound closure. Renewed Percocet (14) and probiotics. PDMP reviewed. Followup one week. [id number]: [id number] Pooja subq tissue 20 sq cm/< Add On Codes: 34799 Pooja subq tissue add-on
[2019-10-14 10:07] VITALS: BP 114/72; PULSE 87; RESP 16; TEMP 36.2; BMI 28.2
--- NOTE | 2019-10-14 15:45 | PN.PCM_ITS ---
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 Comment: Nonhealing ulcers right lateral middle back and left lateral middle back (2) Dehiscence of external surgical wound Status: Chronic Current Visit: Yes Qualifiers: Encounter type: initial encounter Qualified Code(s): T81.31XA - Disruption of external operation (surgical) wound, not elsewhere classified, initial encounter Code(s): T81.31XA - Disruption of external operation (surgical) wound, not elsewhere classified, initial encounter (3) Type 2 diabetes mellitus Status: Chronic Current Visit: Yes Qualifiers: Code(s): E11.9 - Type 2 diabetes mellitus without complications Type of Wound Date of Service: 10/14/19 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: Nonhealing diabetic ulcers left lateral middle back and right lateral middle back and nonhealing diabetic ulcer right flank. History of Wound: Surgery 07/23/19 - 1. Surgical preparation right lateral middle back with incision and drainage and excisional debridement nonhealing infected diabetic ulcer (66 cm2). 2. Surgical preparation left lateral middle back with incision and drainage and excisional debridement nonhealing infected diabetic ulcer (137.75 cm2). Wound care - Epifix #2 on right middle lateral back and right flank ulcers. Daily silver dressing changes to left middle back ulcer. He has persistent pain in the right flank ulcer and a wound culture was obtained on 09/23/19 and it showed Staphylococcus aureus. He was started on Doxycycline. Operative cultures from 07/23/19 were positive for resistant Staphylococcus epidermidis (MRSE). He was started on IV Vancomycin since he had been on Doxycyline, Cleocin, and Zyvox in the past for the persistent Staph infections. Surgery 02/18/19 - 1. Surgical preparation right lateral middle back with excision nonhealing diabetic ulcer. 2. Reconstruction with STSG from right posterior flank (21 cm2) and placement AmnioFill Placental Connective Tissue Powder (250 mg) and placement TAYLOR NPWT. 3. Surgical preparation left lateral middle back with excision nonhealing diabetic ulcer. 4. Reconstruction with STSG from left posterior flank (48 cm2) and placement of AmnioFill Placental Connective Tissue Powder (500 mg) and placement of TAYLOR NPWT. He developed compromise to the healing skin grafts that necessitated HBO Treatments. He has had persistent cultures over the past year showing MRSE, Staphylococcus aureus, Methicillin resistant Staphylococcus haemolyticus, Staphylococcus lugdunensis, and Salma albicans. He has been on Doxycycline, Cleocin, and Zyvox, and Diflucan in the past. Prealbumin from 07/22/19 was 18.7. Encourage nutritonal supplementation with protein to help the healing process. His HgbA1c from 07/22/19 was 5.9. His weekly labs while on Vancomycin showed from 08/26/19 a Cre atinine of 1.08. The AST from 08/26/19 was 17. The ALT from 08/26/19 was 17. The Alkaline Phosphatase from 08/26/19 was 25. The Total Bilirubin from 08/26/19 was 0.3. Today he denies fever. His appetite is good. Progress of Wound: Improved. - Physical Exam Vital Signs Temp Pulse Resp BP Pulse Ox 97.2 F L 87 16 114/72 97 10/14/19 10:07 10/14/19 10:07 10/14/19 10:07 10/14/19 10:07 09/16/19 00:21 General: Alert, Oriented x3, Cooperative HEENT: Atraumatic Oral: Moist Mucosa Lungs: Normal air movement Cardiovascular: Regular rate Extremities: Capillary Refill Less than 3 Seconds Skin: Ulcer/ Wound - Left middle lateral back ulcer is beefy pink with good granulation tissue. Right middle back ulcer showing much improvement, beefy pink with good granulation tissue. Right flank ulcer continues to be sensitive to palpation. Good granulation tissue seen. Wound Measurements and Assessment WC - Nurse 1 - General Ulcer Measurement Start: 09/16/19 13:40 Freq: Status: Active Protocol: Activity Type Activity Date Activity User E-Sign Co-Sign Detail Recorded Client Recorded Date Recorded By Document 10/14/19 10:07 MW [id number] 10/14/19 10:21 MW 10/14/19 10:07 Wound Center Nurse 1 [Ulcer Assessment] #7 R Lower Side -Combined with other wound No -Current Size (cm) - Length 1.9 -Current Size (cm) - Width 3.9 -Current Size (cm) - Depth 0.2 -Total Square Cm 7.41 -Photo Taken No -Epithelialization Small 1-33% -Tunneling No -Undermining/Tunneling No -Circular Undermining No -Exudate Amt Small -Exudate Type Serosanguineous -Wound Margin Flat & Intact -Granulation Amt Large (67-100%) -Granulation Quality Red -Slough/Fibrin Yes -Necrosis Amt Small (1-33%) -Necrotic Tissue Type Adherent Slough -Structure Exposed N/A -Texture (Mayra-wound Skin Appearance) Assessed, Scarring -Moisture (Mayra-wound Skin Appearance No Abnormality, ) Assessed -Color (Mayra-wound Skin Appearance) No Abnormality, Assessed -Temperature (Mayra-wound Skin No Abnormality Appearance) (Pt Warm) -Tenderness on Palpation (Mayra-wound Yes Skin Appearance) -Ulcer Cleansing soap and water -Foul Odor after Cleansing No -Anesthetic Used 5% Lidocaine Gel 6. L lumbar back -Combined with other wound No -Current Size (cm) - Length 5.5 -Current Size (cm) - Width 7.0 -Current Size (cm) - Depth 0.1 -Total Square Cm 38.50 -Photo Taken No -Epithelialization Small 1-33% -Tunneling No -Undermining/Tunneling No -Circular Undermining No -Exudate Amt Small -Exudate Type Serosanguineous -Wound Margin Flat & Intact -Granulation Amt Large (67-100%) -Granulation Quality Red -Slough/Fibrin Yes -Necrosis Amt Small (1-33%) -Necrotic Tissue Type Adherent Slough -Structure Exposed N/A -Texture (Mayra-wound Skin Appearance) Assessed, Scarring -Moisture (Mayra-wound Skin Appearance No Abnormality, ) Assessed -Color (Mayra-wound Skin Appearance) No Abnormality, Assessed -Temperature (Mayra-wound Skin No Abnormality Appearance) (Pt Warm) -Tenderness on Palpation (Mayra-wound Yes Skin Appearance) -Ulcer Cleansing soap and water -Foul Odor after Cleansing No -Anesthetic Used 4% Lidocaine Solution 5. R scapula -Combined with other wound No -Current Size (cm) - Length 4.0 -Current Size (cm) - Width 3.5 -Current Size (cm) - Depth 0.1 -Total Square Cm 14.00 -Photo Taken No -Epithelialization Small 1-33% -Tunneling No -Undermining/Tunneling No -Circular Undermining No -Exudate Amt Medium -Exudate Type Serosanguineous -Wound Margin Flat & Intact -Granulation Amt Large (67-100%) -Granulation Quality Red -Slough/Fibrin Yes -Necrosis Amt Small (1-33%) -Necrotic Tissue Type Adherent Slough -Structure Exposed N/A -Texture (Mayra-wound Skin Appearance) Assessed, Localized Edema -Moisture (Mayra-wound Skin Appearance No Abnormality, ) Assessed -Color (Mayra-wound Skin Appearance) No Abnormality, Assessed -Temperature (Mayra-wound Skin No Abnormality Appearance) (Pt Warm) -Tenderness on Palpation (Mayra-wound Yes Skin Appearance) -Ulcer Cleansing soap and water -Foul Odor after Cleansing No -Anesthetic Used 4% Lidocaine Solution [Edema Assessment] -Lower Limb Edema Present No WC - Nurse 2 - General Ulcer CM Notes Start: 09/16/19 13:40 Freq: Status: Active Protocol: Activity Type Activity Date Activity User E-Sign Co-Sign Detail Recorded Client Recorded Date Recorded By Document 10/14/19 10:48 [facility] [id number] 10/14/19 10:57 [facility] 10/14/19 10:48 Wound Center Nurse 2 [Procedure/Treatment] #7 R Lower Side -Time 10:51 -Correct Patient Yes -Correct Side, Site, Position Yes -Correct Procedure Yes -Procedure Performed Yes -Type of Procedure Debridement -Clinical Debridement Subcutaneous -Post Debridement Size (cm) - Length 1.7 -Post Debridement Size (cm) - Width 4.0 -Post Debridement Size (cm) - Depth 0.3 -Total Square Cm 6.80 -Wound/Ulcer Outcome Not Healed -Ulcer Cleansing Rinsed/ Irrigated with Saline -Foul Odor after Cleansing No -Bioengineered Tissue Yes -Type of bioengineered Tissue EPIFIX -Expiration Date 06/15/24 -Product Lot Number [id number] -Percent Used 100 -Saline Lot Number [id number] -Bleeding Controlled with Pressure -Offloading No -Treatment Response Procedure Tolerated Well 6. L lumbar back -Time 10:56 -Correct Patient Yes -Correct Side, Site, Position Yes -Correct Procedure Yes -Procedure Performed Yes -Type of Procedure Debridement -Clinical Debridement Subcutaneous -Post Debridement Size (cm) - Length 2.4 -Post Debridement Size (cm) - Width 9.3 -Post Debridement Size (cm) - Depth 0.2 -Total Square Cm 22.32 -Wound/Ulcer Outcome Not Healed -Ulcer Cleansing Rinsed/ Irrigated with Saline -Foul Odor after Cleansing No -Bioengineered Tissue No -Bleeding Controlled with Pressure -Offloading No -Treatment Response Procedure Tolerated Well 5. R scapula -Time 10:52 -Correct Patient Yes -Correct Side, Site, Position Yes -Correct Procedure Yes -Procedure Performed Yes -Type of Procedure Debridement -Clinical Debridement Subcutaneous -Post Debridement Size (cm) - Length 6.4 -Post Debridement Size (cm) - Width 0.7 -Post Debridement Size (cm) - Depth 0.2 -Total Square Cm 4.48 -Wound/Ulcer Outcome Not Healed -Ulcer Cleansing Rinsed/ Irrigated with Saline -Foul Odor after Cleansing No -Bioengineered Tissue Yes -Type of bioengineered Tissue EPIFIX -Expiration Date 06/15/24 -Product Lot Number [id number] -Percent Used 100 -Saline Lot Number [id number] -Bleeding Controlled with Pressure -Offloading No -Treatment Response Procedure Tolerated Well [See Physician Procedure note for Specifics] Pain Scale: 0-10 Numeric [Pain] -Is Patient Pain Free? Yes Musculoskeletal: No Muscle Wasting Neurological: Neuro grossly intact Psych/Mental Status: Normal Affect, Appropriate Debridement Note Post-Debridement Measurements/Treatment WC - Nurse 2 - General Ulcer CM Notes Start: 09/16/19 13:40 Freq: Status: Active Protocol: Activity Type Activity Date Activity User E-Sign Co-Sign Detail Recorded Client Recorded Date Recorded By Document 09/16/19 16:17 [id number] 09/16/19 16:20 Document 09/23/19 13:46 [id number] 09/23/19 13:54 Document 09/30/19 11:43 [id number] 09/30/19 11:47 Document 10/07/19 12:29 [id number] 10/07/19 12:41 Document 10/14/19 10:48 [id number] 10/14/19 10:57 09/16/19 09/23/19 09/30/19 16:17 13:46 11:43 Wound Center Nurse 2 #7 R Lower Side -Time 14:03 13:51 11:43 -Correct Patient Yes Yes Yes -Correct Side, Site, Position Yes Yes Yes -Correct Procedure Yes Yes Yes -Procedure Performed Yes Yes Yes -Type of Procedure Debridement Debridement Debridement -Clinical Debridement Subcutaneous Subcutaneous Subcutaneous -Post Debridement Size (cm) - Length 1.6 1.4 1.7 -Post Debridement Size (cm) - Width 3.5 3.5 3.8 -Post Debridement Size (cm) - Depth 0.2 0.2 0.2 -Total Square Cm 5.60 4.90 6.46 -Wound/Ulcer Outcome Not Healed Not Healed Not Healed -Ulcer Cleansing Rinsed/ Rinsed/ Rinsed/ Irrigated with Irrigated with Irrigated with Saline Saline Saline -Foul Odor after Cleansing No No No -Bioengineered Tissue No No -Type of bioengineered Tissue -Expiration Date -Product Lot Number -Percent Used -Saline Lot Number -Bleeding Controlled with Pressure Pressure Pressure -Offloading No No -Treatment Response Procedure Procedure Procedure Tolerated Well Tolerated Well Tolerated Well 6. L lumbar back -Time 14:03 13:52 11:43 -Correct Patient Yes Yes Yes -Correct Side, Site, Position Yes Yes Yes -Correct Procedure Yes Yes Yes -Procedure Performed Yes Yes Yes -Type of Procedure Debridement Debridement Debridement -Clinical Debridement Subcutaneous Subcutaneous Subcutaneous -Post Debridement Size (cm) - Length 5 4.0 11.4 -Post Debridement Size (cm) - Width 12.8 11.7 3.5 -Post Debridement Size (cm) - Depth 0.3 0.2 0.2 -Total Square Cm 64.0 46.80 39.90 -Wound/Ulcer Outcome Not Healed Not Healed Not Healed -Ulcer Cleansing Rinsed/ Rinsed/ Rinsed/ Irrigated with Irrigated with Irrigated with Saline Saline Saline -Foul Odor after Cleansing No No -Bioengineered Tissue No -Bleeding Controlled with Pressure Pressure Pressure -Offloading No No -Treatment Response Procedure Procedure Procedure Tolerated Well Tolerated Well Tolerated Well 5. R scapula -Time 14:03 13:52 11:45 -Correct Patient Yes Yes Yes -Correct Side, Site, Position Yes Yes Yes -Correct Procedure Yes Yes Yes -Procedure Performed Yes Yes Yes -Type of Procedure Debridement Debridement Debridement -Clinical Debridement Subcutaneous Subcutaneous Subcutaneous -Post Debridement Size (cm) - Length 3.2 8.3 7.0 -Post Debridement Size (cm) - Width 9 2.7 1.9 -Post Debridement Size (cm) - Depth 0.2 0.3 0.1 -Total Square Cm 28.8 22.41 13.30 -Wound/Ulcer Outcome Not Healed Not Healed Not Healed -Ulcer Cleansing Rinsed/ Rinsed/ Rinsed/ Irrigated with Irrigated with Irrigated with Saline Saline Saline -Foul Odor after Cleansing No No No -Bioengineered Tissue No No -Type of bioengineered Tissue -Expiration Date -Product Lot Number -Percent Used -Saline Lot Number -Bleeding Controlled with Pressure Pressure Pressure -Offloading No No -Treatment Response Procedure Procedure Procedure Tolerated Well Tolerated Well Tolerated Well Pain Scale: 0-10 Numeric Is Patient Pain Free? Yes Yes Yes 10/07/19 10/14/19 12:29 10:48 Wound Center Nurse 2 #7 R Lower Side -Time 12:31 10:51 -Correct Patient Yes Yes -Correct Side, Site, Position Yes Yes -Correct Procedure Yes Yes -Procedure Performed Yes Yes -Type of Procedure Debridement Debridement -Clinical Debridement Subcutaneous Subcutaneous -Post Debridement Size (cm) - Length 2.0 1.7 -Post Debridement Size (cm) - Width 3.7 4.0 -Post Debridement Size (cm) - Depth 0.2 0.3 -Total Square Cm 7.40 6.80 -Wound/Ulcer Outcome Not Healed Not Healed -Ulcer Cleansing Rinsed/ Rinsed/ Irrigated with Irrigated with Saline Saline -Foul Odor after Cleansing No No -Bioengineered Tissue Yes Yes -Type of bioengineered Tissue EPIFIX EPIFIX -Expiration Date 04/17/24 06/15/24 -Product Lot Number [id number] -Percent Used 100 100 -Saline Lot Number [id number] -Bleeding Controlled with Pressure Pressure -Offloading No No -Treatment Response Procedure Procedure Tolerated Well Tolerated Well 6. L lumbar back -Time 12:29 10:56 -Correct Patient Yes Yes -Correct Side, Site, Position Yes Yes -Correct Procedure Yes Yes -Procedure Performed Yes Yes -Type of Procedure Debridement Debridement -Clinical Debridement Subcutaneous Subcutaneous -Post Debridement Size (cm) - Length 10.4 2.4 -Post Debridement Size (cm) - Width 2.8 9.3 -Post Debridement Size (cm) - Depth 0.2 0.2 -Total Square Cm 29.12 22.32 -Wound/Ulcer Outcome Not Healed Not Healed -Ulcer Cleansing Rinsed/ Rinsed/ Irrigated with Irrigated with Saline Saline -Foul Odor after Cleansing No No -Bioengineered Tissue No No -Bleeding Controlled with Pressure Pressure -Offloading No No -Treatment Response Procedure Procedure Tolerated Well Tolerated Well 5. R scapula -Time 12:30 10:52 -Correct Patient Yes Yes -Correct Side, Site, Position Yes Yes -Correct Procedure Yes Yes -Procedure Performed Yes Yes -Type of Procedure Debridement Debridement -Clinical Debridement Subcutaneous Subcutaneous -Post Debridement Size (cm) - Length 0.7 6.4 -Post Debridement Size (cm) - Width 6.5 0.7 -Post Debridement Size (cm) - Depth 0.2 0.2 -Total Square Cm 4.55 4.48 -Wound/Ulcer Outcome Not Healed Not Healed -Ulcer Cleansing Rinsed/ Rinsed/ Irrigated with Irrigated with Saline Saline -Foul Odor after Cleansing No No -Bioengineered Tissue Yes Yes -Type of bioengineered Tissue EPIFIX EPIFIX -Expiration Date 04/17/24 06/15/24 -Product Lot Number [id number] -Percent Used 100 100 -Saline Lot Number [id number] -Bleeding Controlled with Pressure Pressure -Offloading No No -Treatment Response Procedure Procedure Tolerated Well Tolerated Well Pain Scale: 0-10 Numeric Is Patient Pain Free? Yes Yes Wound debrided: Middle lateral back ulcer Laterality: Left Type of Debridement: Excisional debridement Anesthesia Used: 5% Lidocaine Gel Depth: Down to and including healthy tissue, in the subcutaneous layer Percentage of wound debrided: 100 Instrument Used: 7mm curette Tissue Removed: Subcutaneous tissue and slough Severity: Fat Layer Exposed Amount of bleeding with debridement: Mild Bleeding Controlled with: Pressure Patient tolerated procedure well - Additional Wound Wound debrided: Middle lateral back ulcer Laterality: Right Type of Debridement: Excisional debridement Anesthesia Used: 5% Lidocaine Gel Depth: Down to and including healthy tissue, in the subcutaneous layer Percentage of wound debrided: 100 Instrument Used: 5mm curette Tissue Removed: Subcutaneous tissue and slough Severity: Limited To Skin Breakdown Amount of bleeding with debridement: Mild Bleeding Controlled with: Pressure Patient tolerated procedure: Patient tolerated procedure well - Additional Wound Wound debrided: Flank ulcer Laterality: Right Type of Debridement: Excisional debridement Anesthesia Used: 5% Lidocaine Gel Depth: Down to and including healthy tissue, in the subcutaneous layer Percentage of wound debrided: 100 Instrument Used: 5mm curette Tissue Removed: Subcutaneous tissue and slough Severity: Fat Layer Exposed Amount of bleeding with debridement: Mild Bleeding Controlled with: Pressure Patient tolerated procedure: Patient tolerated procedure well - This ulcer continues to be very hypersensitive with palpation and debridement. Patient does tolerate the discomfort well. Assessment/Plan Active Problems (Last Reviewed 04/30/19 @ 09:[address] 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 Nonhealing diabetic ulcer right lateral middle back. 2. Nonhealing diabetic ulcer left lateral middle back. 3. Nonhealing diabetic ulcer right posterior flank. 4. Diabetes mellitus. 5. s/p surgical preparation right lateral middle back with incision and drainage and excisional debridement nonhealing infected diabetic ulcer (66 cm2) and surgical preparation left lateral middle back with incision and drainage and excisional debridement nonhealing infected diabetic ulcer (137.75 cm2). Plan: Wound care - Epifix #2 to right middle lateral back ulcer and right flank ulcer. Both were covered with wound vail. The right middle lateral back is show much improvement with 1 application of epi-fix. Left middle lateral back ulcer will have daily aquacel- Ag dressing changes. Since he has 3 ulcers, I would like to start using an advanced would healing product such as Epifix on the right middle lateral back. Culture of right flank ulcer from 09/23/19 showed Staphylococcus aureus. He was placed on Doxycycline. He has finished the IV Vancomycin for the MRSE. Labs from 07/22/19- Prealbumin 18.7 and HgA1c 5.9. Encourage nutritional supplementation with protein to help the healing process. If the right flank ulcer shows a plateau in the healing process, can consider operative debridement and complex secondary wound closure. Renewed Percocet (14) and probiotics. PDMP reviewed. Followup one week. [id number]: [id number] Pooja subq tissue 20 sq cm/< - Left middle lateral back ulcer [id number]: [id number] Skin sub graft trnk/arm/leg - Right middle lateral back and right flank ulcer for epi fix #2 applied
== END 2019-10-15 23:59 ==
LOC: WC 10:00
PROVIDERS: Family Provider Family Medicine; PCP Surgery; Referring Provider Nurse Practitioner Family; Visit Provider Nurse Practitioner Family
DX: E11.622 Type 2 diabetes mellitus with other skin ulcer (principal); T81.31XA Disruption of external operation (surgical) wound, not elsewhere classified, initial encounter; Y83.8 Other surgical procedures as the cause of abnormal reaction of the patient, or of later complication, without mention of misadventure at the time of the procedure; L98.422 Non-pressure chronic ulcer of back with fat layer exposed
CPT/HCPCS: 11042; 11045; 15271; 87070; 87075; 87077; 87186; 87205; 99212; Q4186; G0463

== ENCOUNTER 2019-11-11 09:00 | Outpatient (RCR) | payer OTHER, SELFPAY ==
[2019-10-16 00:22] VITALS: BP 114/72; PULSE 87; RESP 16; TEMP 36.2; O2SAT 97
[2019-10-21 08:05] VITALS: BP 112/63; PULSE 73; RESP 16; TEMP 36.6; BMI 28.2
--- NOTE | 2019-10-21 10:23 | PCM.WC.PN ---
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 History of Wound: Surgery 07/23/19 - 1. Surgical preparation right lateral middle back with incision and drainage and excisional debridement nonhealing infected diabetic ulcer (66 cm2). 2. Surgical preparation left lateral middle back with incision and drainage and excisional debridement nonhealing infected diabetic ulcer (137.75 cm2). Wound care - Epifix #2 on right middle lateral back and right flank ulcers last week. This week will do daily silver dressing changes to all the ulcers. Will plan on restarting the Epifix next week. He has persistent pain in the right flank ulcer and a wound culture was obtained on 09/23/19 and it showed Staphylococcus aureus. He was started on Doxycycline. Operative cultures from 07/23/19 were positive for resistant Staphylococcus epidermidis (MRSE). He was started on IV Vancomycin since he had been on Doxycyline, Cleocin, and Zyvox in the past for the persistent Staph infections. Surgery 02/18/19 - 1. Surgical preparation right lateral middle back with excision nonhealing diabetic ulcer. 2. Reconstruction with STSG from right posterior flank (21 cm2) and placement AmnioFill Placental Connective Tissue Powder (250 mg) and placement TAYLOR NPWT. 3. Surgical preparation left lateral middle back with excision nonhealing diabetic ulcer. 4. Reconstruction with STSG from left posterior flank (48 cm2) and placement of AmnioFill Placental Connective Tissue Powder (500 mg) and placement of TAYLOR NPWT. He developed compromise to the healing skin grafts that necessitated HBO Treatments. He has had persistent cultures over the past year showing MRSE, Staphylococcus aureus, Methicillin resistant Staphylococcus haemolyticus, Staphylococcus lugdunensis, and Salma albicans. He has been on Doxycycline, Cleocin, and Zyvox, and Diflucan in the past. Prealbumin from 07/22/19 was 18.7. Encourage nutritonal supplementation with protein to help the healing process. His HgbA1c from 07/22/19 was 5.9. His weekly labs while on Vancomycin showed from 08/26/19 a Creatinine of 1.08. The AST from 08/26/19 was 17. The ALT from 08/26/19 was 17. The Alkaline Phosphatase from 08/26/19 was 25. The Total Bilirubin from 08/26/19 was 0.3. Today he denies fever. His appetite is good. Progress of Wound: Stable. - Physical Exam Vital Signs Temp Pulse Resp BP Pulse Ox 97.8 F 73 16 112/63 97 10/21/19 08:05 10/21/19 08:05 10/21/19 08:05 10/21/19 08:05 10/16/19 00:22 General: Alert, Oriented x3, Cooperative HEENT: Atraumatic Oral: Moist Mucosa Lungs: Normal air movement Cardiovascular: Regular rate Extremities: Capillary Refill Less than 3 Seconds Skin: Ulcer/ Wound - Right middle lateral back ulcer and left middle lateral back ulcer are beefy pink with granulation tissue present. Right flank ulcer with granulation tissue present but continues to be hypersensitive to palpation. Wound Measurements and Assessment WC - Nurse 1 - General Ulcer Measurement Start: 10/21/19 08:05 Freq: Status: Active Protocol: Activity Type Activity Date Activity User E-Sign Co-Sign Detail Recorded Client Recorded Date Recorded By Document 10/21/19 08:05 MW [id number] 10/21/19 08:18 MW 10/21/19 08:05 Wound Center Nurse 1 [Ulcer Assessment] #7 R Lower Side -Combined with other wound No -Current Size (cm) - Length 2.0 -Current Size (cm) - Width 3.9 -Current Size (cm) - Depth 0.2 -Total Square Cm 7.80 -Date of Last Picture (Recall this 10/21/19 field) -Photo Taken Yes -Epithelialization Small 1-33% -Tunneling No -Undermining/Tunneling No -Circular Undermining No -Exudate Amt Medium -Exudate Type Serosanguineous -Wound Margin Flat & Intact -Granulation Amt Large (67-100%) -Granulation Quality Red -Slough/Fibrin Yes -Necrosis Amt Small (1-33%) -Necrotic Tissue Type Adherent Slough -Structure Exposed N/A -Texture (Mayra-wound Skin Appearance) Assessed, Scarring -Moisture (Mayra-wound Skin Appearance No Abnormality, ) Assessed -Color (Mayra-wound Skin Appearance) No Abnormality, Assessed -Temperature (Mayra-wound Skin No Abnormality Appearance) (Pt Warm) -Tenderness on Palpation (Mayra-wound Yes Skin Appearance) -Ulcer Cleansing soap and water -Foul Odor after Cleansing No -Anesthetic Used 5% Lidocaine Gel 6. L lumbar back -Combined with other wound No -Current Size (cm) - Length 5.0 -Current Size (cm) - Width 6.5 -Current Size (cm) - Depth 0.1 -Total Square Cm 32.50 -Date of Last Picture (Recall this 10/21/19 field) -Photo Taken Yes -Epithelialization Small 1-33% -Tunneling No -Undermining/Tunneling No -Circular Undermining No -Exudate Amt Medium -Exudate Type Serosanguineous -Wound Margin Flat & Intact -Granulation Amt Large (67-100%) -Granulation Quality Red -Slough/Fibrin Yes -Necrosis Amt Small (1-33%) -Necrotic Tissue Type Adherent Slough -Structure Exposed N/A -Texture (Mayra-wound Skin Appearance) Assessed, Scarring -Moisture (Mayra-wound Skin Appearance No Abnormality, ) Assessed -Color (Mayra-wound Skin Appearance) No Abnormality, Assessed -Temperature (Mayra-wound Skin No Abnormality Appearance) (Pt Warm) -Tenderness on Palpation (Mayra-wound Yes Skin Appearance) -Ulcer Cleansing soap and water -Foul Odor after Cleansing No -Anesthetic Used 5% Lidocaine Gel 5. R scapula -Combined with other wound No -Current Size (cm) - Length 0.7 -Current Size (cm) - Width 4.5 -Current Size (cm) - Depth 0.1 -Total Square Cm 3.15 -Date of Last Picture (Recall this 10/21/19 field) -Photo Taken Yes -Epithelialization Small 1-33% -Tunneling No -Undermining/Tunneling No -Circular Undermining No -Exudate Amt Medium -Exudate Type Serosanguineous -Wound Margin Flat & Intact -Granulation Amt Large (67-100%) -Granulation Quality Red -Slough/Fibrin Yes -Necrosis Amt Small (1-33%) -Necrotic Tissue Type Adherent Slough -Structure Exposed N/A -Texture (Mayra-wound Skin Appearance) Assessed, Scarring -Moisture (Mayra-wound Skin Appearance No Abnormality, ) Assessed -Temperature (Mayra-wound Skin No Abnormality Appearance) (Pt Warm) -Tenderness on Palpation (Mayra-wound Yes Skin Appearance) -Ulcer Cleansing soap and water -Foul Odor after Cleansing No -Anesthetic Used 5% Lidocaine Gel [Edema Assessment] -Lower Limb Edema Present No WC - Nurse 2 - General Ulcer CM Notes Start: 10/21/19 08:05 Freq: Status: Active Protocol: Activity Type Activity Date Activity User E-Sign Co-Sign Detail Recorded Client Recorded Date Recorded By Document 10/21/19 10:11 SHEFALI [id number] 10/21/19 10:13 PL 10/21/19 10:11 Wound Center Nurse 2 [Procedure/Treatment] #7 R Lower Side -Time 08:45 -Correct Patient Yes -Correct Side, Site, Position Yes -Correct Procedure Yes -Procedure Performed Yes -Type of Procedure Debridement -Clinical Debridement Subcutaneous -Post Debridement Size (cm) - Length 1.7 -Post Debridement Size (cm) - Width 4.4 -Post Debridement Size (cm) - Depth 0.3 -Total Square Cm 7.48 -Wound/Ulcer Outcome Not Healed -Ulcer Cleansing Rinsed/ Irrigated with Saline -Foul Odor after Cleansing No -Bleeding Controlled with Pressure -Treatment Response Procedure Tolerated Well 6. L lumbar back -Time 08:45 -Correct Patient Yes -Correct Side, Site, Position Yes -Correct Procedure Yes -Procedure Performed Yes -Type of Procedure Debridement -Clinical Debridement Subcutaneous -Post Debridement Size (cm) - Length 2 -Post Debridement Size (cm) - Width 8.8 -Post Debridement Size (cm) - Depth 0.2 -Total Square Cm 17.6 -Wound/Ulcer Outcome Not Healed -Ulcer Cleansing Rinsed/ Irrigated with Saline -Foul Odor after Cleansing No -Bleeding Controlled with Pressure -Treatment Response Procedure Tolerated Well 5. R scapula -Time 08:45 -Correct Patient Yes -Correct Side, Site, Position Yes -Correct Procedure Yes -Procedure Performed Yes -Type of Procedure Debridement -Clinical Debridement Subcutaneous -Post Debridement Size (cm) - Length 6.5 -Post Debridement Size (cm) - Width 0.9 -Post Debridement Size (cm) - Depth 0.2 -Total Square Cm 5.85 -Wound/Ulcer Outcome Not Healed -Ulcer Cleansing Rinsed/ Irrigated with Saline -Foul Odor after Cleansing No -Bleeding Controlled with Pressure -Treatment Response Procedure Tolerated Well [See Physician Procedure note for Specifics] Musculoskeletal: No Tenderness to Palpation of Joints or Extremities Neurological: Cranial nerves II-XII grossly intact Psych/Mental Status: Normal Affect, Appropriate Debridement Note Post-Debridement Measurements/Treatment WC - Nurse 2 - General Ulcer CM Notes Start: 10/21/19 08:05 Freq: Status: Active Protocol: Activity Type Activity Date Activity User E-Sign Co-Sign Detail Recorded Client Recorded Date Recorded By Document 10/21/19 10:11 SHEFALI [id number] 10/21/19 10:13 SHEFALI 10/21/19 10:11 Wound Center Nurse 2 #7 R Lower Side -Time 08:45 -Correct Patient Yes -Correct Side, Site, Position Yes -Correct Procedure Yes -Procedure Performed Yes -Type of Procedure Debridement -Clinical Debridement Subcutaneous -Post Debridement Size (cm) - Length 1.7 -Post Debridement Size (cm) - Width 4.4 -Post Debridement Size (cm) - Depth 0.3 -Total Square Cm 7.48 -Wound/Ulcer Outcome Not Healed -Ulcer Cleansing Rinsed/ Irrigated with Saline -Foul Odor after Cleansing No -Bleeding Controlled with Pressure -Treatment Response Procedure Tolerated Well 6. L lumbar back -Time 08:45 -Correct Patient Yes -Correct Side, Site, Position Yes -Correct Procedure Yes -Procedure Performed Yes -Type of Procedure Debridement -Clinical Debridement Subcutaneous -Post Debridement Size (cm) - Length 2 -Post Debridement Size (cm) - Width 8.8 -Post Debridement Size (cm) - Depth 0.2 -Total Square Cm 17.6 -Wound/Ulcer Outcome Not Healed -Ulcer Cleansing Rinsed/ Irrigated with Saline -Foul Odor after Cleansing No -Bleeding Controlled with Pressure -Treatment Response Procedure Tolerated Well 5. R scapula -Time 08:45 -Correct Patient Yes -Correct Side, Site, Position Yes -Correct Procedure Yes -Procedure Performed Yes -Type of Procedure Debridement -Clinical Debridement Subcutaneous -Post Debridement Size (cm) - Length 6.5 -Post Debridement Size (cm) - Width 0.9 -Post Debridement Size (cm) - Depth 0.2 -Total Square Cm 5.85 -Wound/Ulcer Outcome Not Healed -Ulcer Cleansing Rinsed/ Irrigated with Saline -Foul Odor after Cleansing No -Bleeding Controlled with Pressure -Treatment Response Procedure Tolerated Well Wound debrided: middle lateral back ulcer Laterality: Left Type of Debridement: Excisional debridement Anesthesia Used: 5% Lidocaine Gel Depth: Down to and including healthy tissue, in the subcutaneous layer Percentage of wound debrided: 100 Instrument Used: 7mm curette Tissue Removed: Subcutaneous tissue and slough Severity: Fat Layer Exposed Amount of bleeding with debridement: Mild Bleeding Controlled with: Pressure, Compression and gauze Patient tolerated procedure well - Additional Wound Wound debrided: middle lateral back ulcer Laterality: Right Type of Debridement: Excisional debridement Anesthesia Used: 5% Lidocaine Gel Depth: Down to and including healthy tissue, in the subcutaneous layer Percentage of wound debrided: 100 Instrument Used: 3mm curette Tissue Removed: Subcutaneous tissue and slough Severity: Fat Layer Exposed Amount of bleeding with debridement: Mild Bleeding Controlled with: Pressure, Compression and gauze Patient tolerated procedure: Patient tolerated procedure well - Additional Wound Wound debrided: flank ulcer Laterality: Right Type of Debridement: Excisional debridement Anesthesia Used: 5% Lidocaine Gel Depth: Down to and including healthy tissue, in the subcutaneous layer Percentage of wound debrided: 100 Instrument Used: 5mm curette Tissue Removed: Subcutaneous tissue and slough Severity: Fat Layer Exposed Amount of bleeding with debridement: Mild Bleeding Controlled with: Pressure, Compression and gauze Patient tolerated procedure: Patient tolerated procedure well Assessment/Plan Assessment: 1. Nonhealing diabetic ulcer right lateral middle back. 2. Nonhealing diabetic ulcer left lateral middle back. 3. Nonhealing diabetic ulcer right posterior flank. 4. Diabetes mellitus. 5. s/p surgical preparation right lateral middle back with incision and drainage and excisional debridement nonhealing infected diabetic ulcer (66 cm2) and surgical preparation left lateral middle back with incision and drainage and excisional debridement nonhealing infected diabetic ulcer (137.75 cm2). Plan: Wound care - Epifix #2 to right middle lateral back ulcer and right flank ulcer last week. Will place Epifix on hold for a week and do daily silver dressing changes to all three ulcers. He will be able to wash all the ulcers with soap and water daily. We will see if this will make an improvement in the size of his ulcers. Culture of right flank ulcer from 09/23/19 showed Staphylococcus aureus. He was placed on Doxycycline, which he still is taking. He has finished the IV Vancomycin for the MRSE. Labs from 07/22/19- Prealbumin 18.7 and HgA1c 5.9. Encourage nutritional supplementation with protein to help the healing process. If the right flank ulcer shows a plateau in the healing process, can consider operative debridement and complex secondary wound closure. Followup one week. [id number]: [id number] Pooja subq tissue 20 sq cm/< Add On Codes: [id number] Pooja subq tissue add-on
[2019-10-28 08:16] VITALS: BP 117/69; PULSE 64; RESP 20; TEMP 36.7; BMI 28.2
--- NOTE | 2019-10-28 15:31 | PCM.WC.PN ---
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 Comment: Nonhealing ulcers right lateral middle back and left lateral middle back (2) Dehiscence of external surgical wound Status: Chronic Current Visit: Yes Qualifiers: Code(s): T81.31XA - Disruption of external operation (surgical) wound, not elsewhere classified, initial encounter (3) Type 2 diabetes mellitus Status: Chronic Current Visit: Yes Qualifiers: Code(s): E11.9 - Type 2 diabetes mellitus without complications (4) Chronic renal insufficiency, stage I Status: Chronic Current Visit: Yes Code(s): N18.1 - Chronic kidney disease, stage 1 Type of Wound Date of Service: 10/28/19 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: Nonhealing diabetic ulcers left lateral middle back and right lateral middle back and nonhealing diabetic ulcer right flank. History of Wound: Surgery 07/23/19 - 1. Surgical preparation right lateral middle back with incision and drainage and excisional debridement nonhealing infected diabetic ulcer (66 cm2). 2. Surgical preparation left lateral middle back with incision and drainage and excisional debridement nonhealing infected diabetic ulcer (137.75 cm2). Wound care - Epifix #3 on right middle lateral back and left middle lateral back ulcers. Daily silver dressing changes to right flank ulcer. He has persistent pain in the right flank ulcer and a wound culture was obtained on 09/23/19 and it showed Staphylococcus aureus. He was started on Doxycycline. Operative cultures from 07/23/19 were positive for resistant Staphylococcus epidermidis (MRSE). He was started on IV Vancomycin since he had been on Doxycyline, Cleocin, and Zyvox in the past for the persistent Staph infections. Surgery 02/18/19 - 1. Surgical preparation right lateral middle back with excision nonhealing diabetic ulcer. 2. Reconstruction with STSG from right posterior flank (21 cm2) and placement AmnioFill Placental Connective Tissue Powder (250 mg) and placement TAYLOR NPWT. 3. Surgical preparation left lateral middle back with excision nonhealing diabetic ulcer. 4. Reconstruction with STSG from left posterior flank (48 cm2) and placement of AmnioFill Placental Connective Tissue Powder (500 mg) and placement of TAYLOR NPWT. He developed compromise to the healing skin grafts that necessitated HBO Treatments. He has had persistent cultures over the past year showing MRSE, Staphylococcus aureus, Methicillin resistant Staphylococcus haemolyticus, Staphylococcus lugdunensis, and Salma albicans. He has been on Doxycycline, Cleocin, and Zyvox, and Diflucan in the past. Prealbumin from 07/22/19 was 18.7. Encourage nutritonal supplementation with protein to help the healing process. His HgbA1c from 07/22/19 was 5.9. His weekly labs while on Vancomycin showed from 08/26/19 a Creatinine of 1.08. The AST from 08/26/19 was 17. The ALT from 08/26/19 was 17. The Alkaline Phosphatase from 08/26/19 was 25. The Total Bilirubin from 08/26/19 was 0.3. Today he denies fever. His appetite is good. Progress of Wound: Stable. - Physical Exam Vital Signs Temp Pulse Resp BP Pulse Ox 98.1 F 64 20 H 117/69 97 10/28/19 08:16 10/28/19 08:16 10/28/19 08:16 10/28/19 08:16 10/16/19 00:22 General: Alert, Oriented x3, Cooperative HEENT: Atraumatic Oral: Moist Mucosa Lungs: Normal air movement Cardiovascular: Regular rate Abdomen: Soft Skin: Ulcer/ Wound - Right middle lateral back ulcer and left middle lateral back ulcer are beefy pink with good granulation tissue. Right flank ulcer is extremely sensitive to light palpation. Wound Measurements and Assessment WC - Nurse 1 - General Ulcer Measurement Start: 10/21/19 08:05 Freq: Status: Active Protocol: Activity Type Activity Date Activity User E-Sign Co-Sign Detail Recorded Client Recorded Date Recorded By Document 10/28/19 08:16 DL [id number] 10/28/19 08:23 DL 10/28/19 08:16 Wound Center Nurse 1 [Ulcer Assessment] #7 R Lower Side -Current Size (cm) - Length 2 -Current Size (cm) - Width 4.7 -Current Size (cm) - Depth 0.2 -Total Square Cm 9.4 -Photo Taken No -Exudate Type Serosanguineous -Wound Margin Distinct, Outline Attached -Granulation Amt Medium (34-66%) -Granulation Quality Red -Necrosis Amt Medium (34-66%) -Necrotic Tissue Type Adherent Slough -Structure Exposed N/A -Texture (Mayra-wound Skin Appearance) Scarring -Moisture (Mayra-wound Skin Appearance No Abnormality ) -Color (Mayra-wound Skin Appearance) Rubor -Temperature (Mayra-wound Skin No Abnormality Appearance) (Pt Warm) -Tenderness on Palpation (Mayra-wound No Skin Appearance) -Ulcer Cleansing Wound Cleanser -Foul Odor after Cleansing No -Anesthetic Used 4% Lidocaine Solution 6. L lumbar back -Current Size (cm) - Length 2 -Current Size (cm) - Width 8 -Current Size (cm) - Depth 0.1 -Total Square Cm 16 -Photo Taken No -Exudate Amt Small -Exudate Type Serosanguineous -Wound Margin Distinct, Outline Attached -Granulation Amt Large (67-100%) -Granulation Quality [place],Red -Necrosis Amt Small (1-33%) -Necrotic Tissue Type Adherent Slough -Structure Exposed N/A -Texture (Mayra-wound Skin Appearance) Scarring -Moisture (Mayra-wound Skin Appearance No Abnormality ) -Color (Mayra-wound Skin Appearance) No Abnormality -Temperature (Mayra-wound Skin No Abnormality Appearance) (Pt Warm) -Tenderness on Palpation (Mayra-wound No Skin Appearance) -Ulcer Cleansing Wound Cleanser -Foul Odor after Cleansing No -Anesthetic Used 4% Lidocaine Solution 5. R scapula -Current Size (cm) - Length 0.7 -Current Size (cm) - Width 6 -Current Size (cm) - Depth 0.1 -Total Square Cm 4.2 -Photo Taken No -Exudate Amt Small -Exudate Type Serosanguineous -Wound Margin Distinct, Outline Attached -Granulation Amt Large (67-100%) -Granulation Quality [place],Red -Necrosis Amt Small (1-33%) -Necrotic Tissue Type Adherent Slough -Structure Exposed N/A -Texture (Mayra-wound Skin Appearance) Scarring -Moisture (Mayra-wound Skin Appearance No Abnormality ) -Color (Mayra-wound Skin Appearance) No Abnormality -Temperature (Mayra-wound Skin No Abnormality Appearance) (Pt Warm) -Ulcer Cleansing Wound Cleanser -Foul Odor after Cleansing No -Anesthetic Used 4% Lidocaine Solution WC - Nurse 2 - General Ulcer CM Notes Start: 10/21/19 08:05 Freq: Status: Active Protocol: Activity Type Activity Date Activity User E-Sign Co-Sign Detail Recorded Client Recorded Date Recorded By Document 10/28/19 08:53 [facility] [id number] 10/28/19 09:07 [facility] 10/28/19 08:53 Wound Center Nurse 2 [Procedure/Treatment] #7 R Lower Side -Time 08:57 -Correct Patient Yes -Correct Side, Site, Position Yes -Correct Procedure Yes -Procedure Performed Yes -Type of Procedure Debridement -Clinical Debridement Subcutaneous -Post Debridement Size (cm) - Length 2.0 -Post Debridement Size (cm) - Width 4.5 -Post Debridement Size (cm) - Depth 0.3 -Total Square Cm 9.00 -Wound/Ulcer Outcome Not Healed -Ulcer Cleansing Rinsed/ Irrigated with Saline -Foul Odor after Cleansing No -Bioengineered Tissue No -Bleeding Controlled with Pressure -Offloading No -Treatment Response Procedure Tolerated Well 6. L lumbar back -Time 08:57 -Correct Patient Yes -Correct Side, Site, Position Yes -Correct Procedure Yes -Procedure Performed Yes -Type of Procedure Debridement -Clinical Debridement Subcutaneous -Post Debridement Size (cm) - Length 1.8 -Post Debridement Size (cm) - Width 8.0 -Post Debridement Size (cm) - Depth 0.1 -Total Square Cm 14.40 -Wound/Ulcer Outcome Not Healed -Ulcer Cleansing Rinsed/ Irrigated with Saline -Foul Odor after Cleansing No -Bioengineered Tissue Yes -Type of bioengineered Tissue EPIFIX -Expiration Date 06/15/24 -Product Lot Number [id number] -Percent Used 100 -Saline Lot Number [id number] -Bleeding Controlled with Pressure -Offloading No -Treatment Response Procedure Tolerated Well 5. R scapula -Time 08:57 -Correct Patient Yes -Correct Side, Site, Position Yes -Correct Procedure Yes -Procedure Performed Yes -Type of Procedure Debridement -Clinical Debridement Subcutaneous -Post Debridement Size (cm) - Length 6.4 -Post Debridement Size (cm) - Width 1.0 -Post Debridement Size (cm) - Depth 0.2 -Total Square Cm 6.40 -Wound/Ulcer Outcome Not Healed -Ulcer Cleansing Rinsed/ Irrigated with Saline -Foul Odor after Cleansing No -Bioengineered Tissue Yes -Type of bioengineered Tissue EPIFIX -Expiration Date 06/15/24 -Product Lot Number [id number] -Percent Used 100 -Saline Lot Number [id number] -Bleeding Controlled with Pressure -Offloading No -Treatment Response Procedure Tolerated Well [See Physician Procedure note for Specifics] Pain Scale: 0-10 Numeric [Pain] -Is Patient Pain Free? Yes Musculoskeletal: No Tenderness to Palpation of Joints or Extremities Neurological: Cranial nerves II-XII grossly intact Psych/Mental Status: Normal Affect, Appropriate Debridement Note Post-Debridement Measurements/Treatment WC - Nurse 2 - General Ulcer CM Notes Start: 10/21/19 08:05 Freq: Status: Active Protocol: Activity Type Activity Date Activity User E-Sign Co-Sign Detail Recorded Client Recorded Date Recorded By Document 10/21/19 10:11 PL [id number] 10/21/19 10:13 PL Document 10/28/19 08:53 [id number] 10/28/19 09:07 10/21/19 10/28/19 10:11 08:53 Wound Center Nurse 2 #7 R Lower Side -Time 08:45 08:57 -Correct Patient Yes Yes -Correct Side, Site, Position Yes Yes -Correct Procedure Yes Yes -Procedure Performed Yes Yes -Type of Procedure Debridement Debridement -Clinical Debridement Subcutaneous Subcutaneous -Post Debridement Size (cm) - Length 1.7 2.0 -Post Debridement Size (cm) - Width 4.4 4.5 -Post Debridement Size (cm) - Depth 0.3 0.3 -Total Square Cm 7.48 9.00 -Wound/Ulcer Outcome Not Healed Not Healed -Ulcer Cleansing Rinsed/ Rinsed/ Irrigated with Irrigated with Saline Saline -Foul Odor after Cleansing No No -Bioengineered Tissue No -Bleeding Controlled with Pressure Pressure -Offloading No -Treatment Response Procedure Procedure Tolerated Well Tolerated Well 6. L lumbar back -Time 08:45 08:57 -Correct Patient Yes Yes -Correct Side, Site, Position Yes Yes -Correct Procedure Yes Yes -Procedure Performed Yes Yes -Type of Procedure Debridement Debridement -Clinical Debridement Subcutaneous Subcutaneous -Post Debridement Size (cm) - Length 2 1.8 -Post Debridement Size (cm) - Width 8.8 8.0 -Post Debridement Size (cm) - Depth 0.2 0.1 -Total Square Cm 17.6 14.40 -Wound/Ulcer Outcome Not Healed Not Healed -Ulcer Cleansing Rinsed/ Rinsed/ Irrigated with Irrigated with Saline Saline -Foul Odor after Cleansing No No -Bioengineered Tissue Yes -Type of bioengineered Tissue EPIFIX -Expiration Date 06/15/24 -Product Lot Number [id number] -Percent Used 100 -Saline Lot Number [id number] -Bleeding Controlled with Pressure Pressure -Offloading No -Treatment Response Procedure Procedure Tolerated Well Tolerated Well 5. R scapula -Time 08:45 08:57 -Correct Patient Yes Yes -Correct Side, Site, Position Yes Yes -Correct Procedure Yes Yes -Procedure Performed Yes Yes -Type of Procedure Debridement Debridement -Clinical Debridement Subcutaneous Subcutaneous -Post Debridement Size (cm) - Length 6.5 6.4 -Post Debridement Size (cm) - Width 0.9 1.0 -Post Debridement Size (cm) - Depth 0.2 0.2 -Total Square Cm 5.85 6.40 -Wound/Ulcer Outcome Not Healed Not Healed -Ulcer Cleansing Rinsed/ Rinsed/ Irrigated with Irrigated with Saline Saline -Foul Odor after Cleansing No No -Bioengineered Tissue Yes -Type of bioengineered Tissue EPIFIX -Expiration Date 06/15/24 -Product Lot Number [id number] -Percent Used 100 -Saline Lot Number [id number] -Bleeding Controlled with Pressure Pressure -Offloading No -Treatment Response Procedure Procedure Tolerated Well Tolerated Well Pain Scale: 0-10 Numeric Is Patient Pain Free? Yes Wound debrided: middle lateral back ulcer Laterality: Left Type of Debridement: Excisional debridement Anesthesia Used: 5% Lidocaine Gel Depth: Down to and including healthy tissue, in the subcutaneous layer Percentage of wound debrided: 100 Instrument Used: 7mm curette Tissue Removed: Subcutaneous tissue and slough Severity: Fat Layer Exposed Amount of bleeding with debridement: Mild Bleeding Controlled with: Compression and gauze - Additional Wound Wound debrided: middle lateral back ulcer Laterality: Right Type of Debridement: Excisional debridement Anesthesia Used: 5% Lidocaine Gel Depth: Down to and including healthy tissue, in the subcutaneous layer Percentage of wound debrided: 100 Instrument Used: 3mm curette Tissue Removed: Subcutaneous tissue and slough Severity: Fat Layer Exposed Amount of bleeding with debridement: Mild Bleeding Controlled with: Pressure, Compression and gauze Patient tolerated procedure: Patient tolerated procedure well - Additional Wound Wound debrided: flank ulcer Laterality: Right Anesthesia Used: - - Lidocaine 1% with epi, injected around the right flank ulcer Depth: Down to and including healthy tissue, in the subcutaneous layer Percentage of wound debrided: 100 Instrument Used: 5mm curette Tissue Removed: Subcutaneous tissue and slough Severity: Fat Layer Exposed Amount of bleeding with debridement: Mild Bleeding Controlled with: Pressure, Compression and gauze Patient tolerated procedure: Patient tolerated procedure well Assessment/Plan Active Problems (Last Reviewed 04/30/19 @ 09:[address] 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 Nonhealing diabetic ulcer right lateral middle back. 2. Nonhealing diabetic ulcer left lateral middle back. 3. Nonhealing diabetic ulcer right posterior flank. 4. Diabetes mellitus. 5. s/p surgical preparation right lateral middle back with incision and drainage and excisional debridement nonhealing infected diabetic ulcer (66 cm2) and surgical preparation left lateral middle back with incision and drainage and excisional debridement nonhealing infected diabetic ulcer (137.75 cm2). Plan: Wound care - Wound care - Epifix #3 on right middle lateral back and left middle lateral back ulcers. Daily silver dressing changes to right flank ulcer. Today injected Lidocaine 1% with epi around the right flank ulcer to be able to do a good subcutaneous debridement to healthy tissue. Patient tolerated the debridement well. Culture of right flank ulcer from 09/23/19 showed Staphylococcus aureus. He was placed on Doxycycline, which he still is taking. He has finished the IV Vancomycin for the MRSE. Labs from 07/22/19- Prealbumin 18.7 and HgA1c 5.9. Encourage nutritional supplementation with protein to help the healing process. If the right flank ulcer shows a plateau in the healing process, can consider operative debridement and complex secondary wound closure. Renewed Percocet (14). PDMP reviewed. Followup one week. [id number]: [id number] Pooja subq tissue 20 sq cm/< - right flank ulcer [id number]: [id number] Skin sub graft trnk/arm/leg - Right and left middle lateral back ulcers
[2019-11-04 10:15] VITALS: BP 120/62; PULSE 76; RESP 16; TEMP 36.3; BMI 28.2
--- NOTE | 2019-11-04 16:28 | PCM.WC.PN ---
Type of Wound Date of Service: 11/04/19 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: Nonhealing diabetic ulcers left lateral middle back and right lateral middle back and nonhealing diabetic ulcer right flank. History of Wound: Surgery 07/23/19 - 1. Surgical preparation right lateral middle back with incision and drainage and excisional debridement nonhealing infected diabetic ulcer (66 cm2). 2. Surgical preparation left lateral middle back with incision and drainage and excisional debridement nonhealing infected diabetic ulcer (137.75 cm2). Wound care - Epifix #3 on right middle lateral back and left middle lateral back ulcers. Daily silver dressing changes to right flank ulcer. He has persistent pain in the right flank ulcer and a wound culture was obtained on 09/23/19 and it showed Staphylococcus aureus. He was started on Doxycycline and has finished them. Operative cultures from 07/23/19 were positive for resistant Staphylococcus epidermidis (MRSE). He was started on IV Vancomycin since he had been on Doxycyline, Cleocin, and Zyvox in the past for the persistent Staph infections. He developed compromise to the healing skin grafts that necessitated HBO Treatments which he tolerated. Prealbumin from 07/22/19 was 18.7. Encourage nutritonal supplementation with protein to help the healing process. His HgbA1c from 07/22/19 was 5.9. Today he denies fever. His appetite is good. Progress of Wound: Improved. - Physical Exam Vital Signs Temp Pulse Resp BP Pulse Ox 97.4 F L 76 16 120/62 97 11/04/19 10:15 11/04/19 10:15 11/04/19 10:15 11/04/19 10:15 10/16/19 00:22 Wound Measurements and Assessment WC - Nurse 1 - General Ulcer Measurement Start: 10/21/19 08:05 Freq: Status: Active Protocol: Activity Type Activity Date Activity User E-Sign Co-Sign Detail Recorded Client Recorded Date Recorded By Document 11/04/19 10:15 [facility] [id number] 11/04/19 10:23 [facility] 11/04/19 10:15 Wound Center Nurse 1 [Ulcer Assessment] #7 R Lower Side -Current Size (cm) - Length 2.5 -Current Size (cm) - Width 4.1 -Current Size (cm) - Depth 0.3 -Total Square Cm 10.25 -Photo Taken No -Exudate Amt Small -Exudate Type Sanguineous -Wound Margin Distinct, Outline Attached -Granulation Amt Large (67-100%) -Granulation Quality Red -Necrosis Amt None Present (0 %) -Structure Exposed N/A -Texture (Mayra-wound Skin Appearance) Scarring -Moisture (Mayra-wound Skin Appearance No Abnormality ) -Color (Mayra-wound Skin Appearance) Rubor -Temperature (Mayra-wound Skin No Abnormality Appearance) (Pt Warm) -Tenderness on Palpation (Mayra-wound Yes Skin Appearance) -Ulcer Cleansing Wound Cleanser -Foul Odor after Cleansing No -Anesthetic Used 4% Lidocaine Solution,5% Lidocaine Gel 6. L lumbar back -Current Size (cm) - Length 4.8 -Current Size (cm) - Width 5.5 -Current Size (cm) - Depth 0.1 -Total Square Cm 26.40 -Photo Taken No -Exudate Amt Small -Exudate Type Serosanguineous -Wound Margin Distinct, Outline Attached -Granulation Amt Medium (34-66%) -Granulation Quality Red -Necrosis Amt Medium (34-66%) -Necrotic Tissue Type Adherent Slough -Structure Exposed N/A -Texture (Mayra-wound Skin Appearance) Scarring -Moisture (Mayra-wound Skin Appearance No Abnormality ) -Color (Mayra-wound Skin Appearance) No Abnormality -Temperature (Mayra-wound Skin No Abnormality Appearance) (Pt Warm) -Tenderness on Palpation (Mayra-wound No Skin Appearance) -Ulcer Cleansing Rinsed/ Irrigated with Saline -Foul Odor after Cleansing No -Anesthetic Used 4% Lidocaine Solution,5% Lidocaine Gel 5. R scapula -Current Size (cm) - Length 2 -Current Size (cm) - Width 0.9 -Current Size (cm) - Depth 0.1 -Total Square Cm 1.8 -Photo Taken No -Exudate Amt Small -Exudate Type Serosanguineous -Wound Margin Distinct, Outline Attached -Granulation Amt Large (67-100%) -Granulation Quality [place] -Necrosis Amt Small (1-33%) -Necrotic Tissue Type Adherent Slough -Structure Exposed N/A -Texture (Mayra-wound Skin Appearance) Scarring -Moisture (Mayra-wound Skin Appearance No Abnormality ) -Color (Mayra-wound Skin Appearance) No Abnormality -Temperature (Mayra-wound Skin No Abnormality Appearance) (Pt Warm) -Ulcer Cleansing Wound Cleanser -Foul Odor after Cleansing No -Anesthetic Used 4% Lidocaine Solution,5% Lidocaine Gel WC - Nurse 2 - General Ulcer CM Notes Start: 10/21/19 08:05 Freq: Status: Active Protocol: Activity Type Activity Date Activity User E-Sign Co-Sign Detail Recorded Client Recorded Date Recorded By Document 11/04/19 10:38 [facility] [id number] 11/04/19 10:52 [facility] 11/04/19 10:38 Wound Center Nurse 2 [Procedure/Treatment] #7 R Lower Side -Time 10:40 -Correct Patient Yes -Correct Side, Site, Position Yes -Correct Procedure Yes -Procedure Performed Yes -Type of Procedure Debridement -Clinical Debridement Subcutaneous -Post Debridement Size (cm) - Length 2.5 -Post Debridement Size (cm) - Width 4.2 -Post Debridement Size (cm) - Depth 0.3 -Total Square Cm 10.50 -Wound/Ulcer Outcome Not Healed -Ulcer Cleansing Rinsed/ Irrigated with Saline -Foul Odor after Cleansing No -Bioengineered Tissue No -Bleeding Controlled with Pressure -Offloading No -Treatment Response Procedure Tolerated Well 6. L lumbar back -Time 10:39 -Correct Patient Yes -Correct Side, Site, Position Yes -Correct Procedure Yes -Procedure Performed Yes -Type of Procedure Debridement -Clinical Debridement Subcutaneous -Post Debridement Size (cm) - Length 4.8 -Post Debridement Size (cm) - Width 5.6 -Post Debridement Size (cm) - Depth 0.1 -Total Square Cm 26.88 -Wound/Ulcer Outcome Not Healed -Ulcer Cleansing Rinsed/ Irrigated with Saline -Foul Odor after Cleansing No -Bioengineered Tissue Yes -Type of bioengineered Tissue EPIFIX -Expiration Date 06/15/24 -Product Lot Number [id number] -Percent Used 100 -Saline Lot Number [id number] -Bleeding Controlled with Pressure -Offloading No -Treatment Response Procedure Tolerated Well 5. R scapula -Time 10:39 -Correct Patient Yes -Correct Side, Site, Position Yes -Correct Procedure Yes -Procedure Performed Yes -Type of Procedure Debridement -Clinical Debridement Subcutaneous -Post Debridement Size (cm) - Length 2 -Post Debridement Size (cm) - Width 1 -Post Debridement Size (cm) - Depth 0.1 -Total Square Cm 2 -Wound/Ulcer Outcome Not Healed -Ulcer Cleansing Rinsed/ Irrigated with Saline -Foul Odor after Cleansing No -Bioengineered Tissue Yes -Type of bioengineered Tissue EPIFIX -Expiration Date 06/15/24 -Product Lot Number [id number] -Percent Used 100 -Saline Lot Number [id number] -Bleeding Controlled with Pressure -Offloading No -Treatment Response Procedure Tolerated Well [See Physician Procedure note for Specifics] Pain Scale: 0-10 Numeric [Pain] -Is Patient Pain Free? Yes Debridement Note Post-Debridement Measurements/Treatment WC - Nurse 2 - General Ulcer CM Notes Start: 10/21/19 08:05 Freq: Status: Active Protocol: Activity Type Activity Date Activity User E-Sign Co-Sign Detail Recorded Client Recorded Date Recorded By Document 10/21/19 10:11 PL [id number] 10/21/19 10:13 PL Document 10/28/19 08:53 [id number] 10/28/19 09:07 Document 11/04/19 10:38 [id number] 11/04/19 10:52 10/21/19 10/28/19 11/04/19 10:11 08:53 10:38 Wound Center Nurse 2 #7 R Lower Side -Time 08:45 08:57 10:40 -Correct Patient Yes Yes Yes -Correct Side, Site, Position Yes Yes Yes -Correct Procedure Yes Yes Yes -Procedure Performed Yes Yes Yes -Type of Procedure Debridement Debridement Debridement -Clinical Debridement Subcutaneous Subcutaneous Subcutaneous -Post Debridement Size (cm) - Length 1.7 2.0 2.5 -Post Debridement Size (cm) - Width 4.4 4.5 4.2 -Post Debridement Size (cm) - Depth 0.3 0.3 0.3 -Total Square Cm 7.48 9.00 10.50 -Wound/Ulcer Outcome Not Healed Not Healed Not Healed -Ulcer Cleansing Rinsed/ Rinsed/ Rinsed/ Irrigated with Irrigated with Irrigated with Saline Saline Saline -Foul Odor after Cleansing No No No -Bioengineered Tissue No No -Bleeding Controlled with Pressure Pressure Pressure -Offloading No No -Treatment Response Procedure Procedure Procedure Tolerated Well Tolerated Well Tolerated Well 6. L lumbar back -Time 08:45 08:57 10:39 -Correct Patient Yes Yes Yes -Correct Side, Site, Position Yes Yes Yes -Correct Procedure Yes Yes Yes -Procedure Performed Yes Yes Yes -Type of Procedure Debridement Debridement Debridement -Clinical Debridement Subcutaneous Subcutaneous Subcutaneous -Post Debridement Size (cm) - Length 2 1.8 4.8 -Post Debridement Size (cm) - Width 8.8 8.0 5.6 -Post Debridement Size (cm) - Depth 0.2 0.1 0.1 -Total Square Cm 17.6 14.40 26.88 -Wound/Ulcer Outcome Not Healed Not Healed Not Healed -Ulcer Cleansing Rinsed/ Rinsed/ Rinsed/ Irrigated with Irrigated with Irrigated with Saline Saline Saline -Foul Odor after Cleansing No No No -Bioengineered Tissue Yes Yes -Type of bioengineered Tissue EPIFIX EPIFIX -Expiration Date 06/15/24 06/15/24 -Product Lot Number [id number] -Percent Used 100 100 -Saline Lot Number [id number] -Bleeding Controlled with Pressure Pressure Pressure -Offloading No No -Treatment Response Procedure Procedure Procedure Tolerated Well Tolerated Well Tolerated Well 5. R scapula -Time 08:45 08:57 10:39 -Correct Patient Yes Yes Yes -Correct Side, Site, Position Yes Yes Yes -Correct Procedure Yes Yes Yes -Procedure Performed Yes Yes Yes -Type of Procedure Debridement Debridement Debridement -Clinical Debridement Subcutaneous Subcutaneous Subcutaneous -Post Debridement Size (cm) - Length 6.5 6.4 2 -Post Debridement Size (cm) - Width 0.9 1.0 1 -Post Debridement Size (cm) - Depth 0.2 0.2 0.1 -Total Square Cm 5.85 6.40 2 -Wound/Ulcer Outcome Not Healed Not Healed Not Healed -Ulcer Cleansing Rinsed/ Rinsed/ Rinsed/ Irrigated with Irrigated with Irrigated with Saline Saline Saline -Foul Odor after Cleansing No No No -Bioengineered Tissue Yes Yes -Type of bioengineered Tissue EPIFIX EPIFIX -Expiration Date 06/15/24 06/15/24 -Product Lot Number [id number] -Percent Used 100 100 -Saline Lot Number [id number] -Bleeding Controlled with Pressure Pressure Pressure -Offloading No No -Treatment Response Procedure Procedure Procedure Tolerated Well Tolerated Well Tolerated Well Pain Scale: 0-10 Numeric Is Patient Pain Free? Yes Yes Wound debrided: #5 Right lateral middle back. Laterality: Right Wound Grade/Stage: 2. Type of Debridement: Excisional debridement Anesthesia Used: 4% Lidocaine Solution Depth: Down to and including healthy tissue, in the subcutaneous layer Percentage of wound debrided: 100 Instrument Used: 3mm curette Tissue Removed: subcutaneous tissue. Severity: Fat Layer Exposed Amount of bleeding with debridement: Mild Bleeding Controlled with: Pressure Patient tolerated procedure well, - - EpiFix #4 was applied today. Expiration - 06/15/24. Product Lot Number - [id number]. Percent used - 100%. Saline Lot Number - [id number]. - Additional Wound Wound debrided: #6 Left lateral middle back. Laterality: Left Wound Grade/Stage: 2. Type of Debridement: Excisional debridement Anesthesia Used: 4% Lidocaine Solution Depth: Down to and including healthy tissue, in the subcutaneous layer Percentage of wound debrided: 100 Instrument Used: 5mm curette Tissue Removed: subcutaneous tissue. Severity: Fat Layer Exposed Amount of bleeding with debridement: Mild Bleeding Controlled with: Pressure Patient tolerated procedure: Patient tolerated procedure well, - - EpiFix #4 was applied today. Expiration - 06/15/24. Product Lot Number - [id number]. Percent used - 100%. Saline Lot Number - [id number]. - Additional Wound Wound debrided: #7 Right flank. Laterality: Right Wound Grade/Stage: 2. Type of Debridement: Excisional debridement Anesthesia Used: 4% Lidocaine Solution Depth: Down to and including healthy tissue, in the subcutaneous layer Percentage of wound debrided: 100 Instrument Used: 5mm curette Tissue Removed: subcutaneous tissue. Severity: Fat Layer Exposed Amount of bleeding with debridement: Mild Bleeding Controlled with: Pressure Patient tolerated procedure: Patient tolerated procedure well, - - A wound culture was obtained today. Assessment/Plan Assessment: 1. Nonhealing diabetic ulcer right lateral middle back. 2. Nonhealing diabetic ulcer left lateral middle back. 3. Nonhealing diabetic ulcer right posterior flank. 4. Diabetes mellitus. 5. s/p surgical preparation right lateral middle back with incision and drainage and excisional debridement nonhealing infected diabetic ulcer (66 cm2) and surgical preparation left lateral middle back with incision and drainage and excisional debridement nonhealing infected diabetic ulcer (137.75 cm2). Plan: Applied Epifix #4 (Placental connective tissue graft) today to right lateral middle back and left lateral middle back ulcers. This was dressed with a wound veil and steri-strips. 28.88 cm2 was used. Continue Silver dressing changes daily to the right flank. He has just stopped his Doxycycline. Another wound culture was obtained today. A positive culture may necessitate alternate antibiotics and possibly IV antibiotics if healing continues to be slow and painful. Labs from 07/22/19- Prealbumin 18.7 and HgA1c 5.9. Encourage nutritional supplementation with protein to help the healing process. If the right flank ulcer shows a plateau in the healing process, can consider operative debridement and complex secondary wound closure. Because of positioning on the operating table, he would like to wait until the EpiFix applications are completed and then proceed with surgery to close the right flank ulcer. Followup one week. [id number]: [id number] Skin sub graft trnk/arm/leg - ICD-10 - L98.492, L03.312, E11.9, T86.829 Add On Codes: 05276 Skin sub graft t/a/l add-on - ICD-10 - L98.492, L03.312, E11.9, T86.829 Multi Select Codes - Integumentary Integumentary CPT Codes: 02157 Pooja subq tissue 20 sq cm/< - ICD-10 - L98.492, L03.312, E11.9, T86.829
[2019-11-11 08:59] VITALS: BP 122/58; PULSE 78; RESP 20; TEMP 36.8; BMI 28.2
--- NOTE | 2019-11-11 10:20 | PN.PCM_ITS ---
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 Comment: Nonhealing ulcers right lateral middle back and left lateral middle back (2) Dehiscence of external surgical wound Status: Chronic Current Visit: Yes Qualifiers: Code(s): T81.31XA - Disruption of external operation (surgical) wound, not elsewhere classified, initial encounter (3) Type 2 diabetes mellitus Status: Chronic Current Visit: Yes Qualifiers: Code(s): E11.9 - Type 2 diabetes mellitus without complications (4) Chronic renal insufficiency, stage I Status: Chronic Current Visit: Yes Code(s): N18.1 - Chronic kidney disease, stage 1 Type of Wound Date of Service: 11/11/19 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: Nonhealing diabetic ulcers left lateral middle back and right lateral middle back and nonhealing diabetic ulcer right flank. History of Wound: Surgery 07/23/19 - 1. Surgical preparation right lateral middle back with incision and drainage and excisional debridement nonhealing infected diabetic ulcer (66 cm2). 2. Surgical preparation left lateral middle back with incision and drainage and excisional debridement nonhealing infected diabetic ulcer (137.75 cm2). Wound care - Epifix on right middle lateral back and left middle lateral back ulcers. Daily silver dressing changes to right flank ulcer. He has persistent pain in the right flank ulcer and a wound culture was obtained on 09/23/19 and it showed Staphylococcus aureus. He was started on Doxycycline and has finished them. Operative cultures from 07/23/19 were positive for resistant Staphylococcus epidermidis (MRSE). He was started on IV Vancomycin since he had been on Doxycyline, Cleocin, and Zyvox in the past for the persistent Staph infections. He developed compromise to the healing skin grafts that necessitated HBO Treatments which he tolerated. Prealbumin from 07/22/19 was 18.7. Encourage nutritonal supplementation with protein to help the healing process. His HgbA1c from 07/22/19 was 5.9. Today he denies fever. His appetite is good. Progress of Wound: Improved. - Physical Exam Vital Signs Temp Pulse Resp BP Pulse Ox 98.3 F 78 20 H 122/58 H 97 11/11/19 08:59 11/11/19 08:59 11/11/19 08:59 11/11/19 08:59 10/16/19 00:22 General: Alert, Oriented x3, Cooperative HEENT: Atraumatic Lungs: Normal air movement Cardiovascular: Regular rate Extremities: Capillary Refill Less than 3 Seconds Skin: Ulcer/ Wound - Right middle lateral back ulcer, left middle lateral back ulcer and right flank ulcer. Wound Measurements and Assessment WC - Nurse 1 - General Ulcer Measurement Start: 10/21/19 08:05 Freq: Status: Active Protocol: Activity Type Activity Date Activity User E-Sign Co-Sign Detail Recorded Client Recorded Date Recorded By Document 11/11/19 08:59 DL [id number] 11/11/19 09:08 DL 11/11/19 08:59 Wound Center Nurse 1 [Ulcer Assessment] #7 R Lower Side -Current Size (cm) - Length 2.2 -Current Size (cm) - Width 5 -Current Size (cm) - Depth 0.2 -Total Square Cm 11.0 -Photo Taken No -Exudate Amt Small -Exudate Type Sanguineous -Wound Margin Distinct, Outline Attached -Granulation Amt Large (67-100%) -Granulation Quality Red -Necrosis Amt None Present (0 %) -Structure Exposed N/A -Texture (Mayra-wound Skin Appearance) Scarring -Moisture (Mayra-wound Skin Appearance No Abnormality ) -Color (Mayra-wound Skin Appearance) Ecchymosis, Erythema -Tenderness on Palpation (Mayra-wound No Skin Appearance) -Ulcer Cleansing Wound Cleanser -Foul Odor after Cleansing No -Anesthetic Used 4% Lidocaine Solution 6. L lumbar back -Current Size (cm) - Length 2 -Current Size (cm) - Width 6.3 -Current Size (cm) - Depth 0.1 -Total Square Cm 12.6 -Photo Taken No -Exudate Amt Small -Exudate Type Serosanguineous -Wound Margin Distinct, Outline Attached -Granulation Amt Medium (34-66%) -Granulation Quality Red -Necrosis Amt Medium (34-66%) -Necrotic Tissue Type Adherent Slough -Structure Exposed N/A -Texture (Mayra-wound Skin Appearance) Scarring -Moisture (Mayra-wound Skin Appearance No Abnormality ) -Color (Mayra-wound Skin Appearance) No Abnormality -Temperature (Mayra-wound Skin No Abnormality Appearance) (Pt Warm) -Tenderness on Palpation (Mayra-wound No Skin Appearance) -Ulcer Cleansing Wound Cleanser -Foul Odor after Cleansing No -Anesthetic Used 4% Lidocaine Solution 5. R scapula -Current Size (cm) - Length 0.5 -Current Size (cm) - Width 3.8 -Current Size (cm) - Depth 0.1 -Total Square Cm 1.90 -Photo Taken No -Exudate Amt Small -Exudate Type Serosanguineous -Wound Margin Distinct, Outline Attached -Granulation Amt Large (67-100%) -Granulation Quality [place] -Necrosis Amt Small (1-33%) -Necrotic Tissue Type Adherent Slough -Structure Exposed N/A -Texture (Mayra-wound Skin Appearance) Scarring -Moisture (Mayra-wound Skin Appearance No Abnormality ) -Color (Mayra-wound Skin Appearance) No Abnormality -Temperature (Mayra-wound Skin No Abnormality Appearance) (Pt Warm) -Tenderness on Palpation (Mayra-wound No Skin Appearance) -Ulcer Cleansing Wound Cleanser -Foul Odor after Cleansing No -Anesthetic Used 4% Lidocaine Solution WC - Nurse 2 - General Ulcer CM Notes Start: 10/21/19 08:05 Freq: Status: Active Protocol: Activity Type Activity Date Activity User E-Sign Co-Sign Detail Recorded Client Recorded Date Recorded By Document 11/11/19 09:27 [facility] [id number] 11/11/19 09:38 [facility] 11/11/19 09:27 Wound Center Nurse 2 [Procedure/Treatment] #7 R Lower Side -Time 09:28 -Correct Patient Yes -Correct Side, Site, Position Yes -Correct Procedure Yes -Procedure Performed Yes -Type of Procedure Debridement -Clinical Debridement Subcutaneous -Post Debridement Size (cm) - Length 2.2 -Post Debridement Size (cm) - Width 5 -Post Debridement Size (cm) - Depth 0.3 -Total Square (cm) 11.0 -Wound/Ulcer Outcome Not Healed -Ulcer Cleansing Rinsed/ Irrigated with Saline -Foul Odor after Cleansing No -Bioengineered Tissue No -Bleeding Controlled with Pressure -Offloading No -Treatment Response Procedure Tolerated Well 6. L lumbar back -Time 09:29 -Correct Patient Yes -Correct Side, Site, Position Yes -Correct Procedure Yes -Procedure Performed Yes -Type of Procedure Debridement -Clinical Debridement Subcutaneous -Post Debridement Size (cm) - Length 7.4 -Post Debridement Size (cm) - Width 2 -Post Debridement Size (cm) - Depth 0.2 -Total Square (cm) 14.8 -Wound/Ulcer Outcome Not Healed -Ulcer Cleansing Rinsed/ Irrigated with Saline -Foul Odor after Cleansing No -Bioengineered Tissue Yes -Type of bioengineered Tissue EPIFIX -Expiration Date 06/15/24 -Product Lot Number [id number] -Percent Used 100 -Saline Lot Number [id number] -Bleeding Controlled with Pressure -Offloading No -Treatment Response Procedure Tolerated Well 5. R scapula -Time 09:29 -Correct Patient Yes -Correct Side, Site, Position Yes -Correct Procedure Yes -Procedure Performed Yes -Type of Procedure Debridement -Clinical Debridement Subcutaneous -Post Debridement Size (cm) - Length 3.3 -Post Debridement Size (cm) - Width 0.7 -Post Debridement Size (cm) - Depth 0.1 -Total Square (cm) 2.31 -Wound/Ulcer Outcome Not Healed -Ulcer Cleansing Rinsed/ Irrigated with Saline -Foul Odor after Cleansing No -Bioengineered Tissue Yes -Type of bioengineered Tissue EPIFIX -Expiration Date 06/15/24 -Product Lot Number [id number] -Percent Used 100 -Saline Lot Number [id number] -Bleeding Controlled with Pressure -Offloading No -Treatment Response Procedure Tolerated Well [See Physician Procedure note for Specifics] Pain Scale: 0-10 Numeric [Pain] -Is Patient Pain Free? Yes Musculoskeletal: No Tenderness to Palpation of Joints or Extremities Neurological: Cranial nerves II-XII grossly intact Psych/Mental Status: Normal Affect, Appropriate Debridement Note Post-Debridement Measurements/Treatment WC - Nurse 2 - General Ulcer CM Notes Start: 10/21/19 08:05 Freq: Status: Active Protocol: Activity Type Activity Date Activity User E-Sign Co-Sign Detail Recorded Client Recorded Date Recorded By Document 10/21/19 10:11 PL [id number] 10/21/19 10:13 PL Document 10/28/19 08:53 JF [id number] 10/28/19 09:07 JF Document 11/04/19 10:38 JF [id number] 11/04/19 10:52 JF Document 11/11/19 09:27 JF [id number] 11/11/19 09:38 JF 10/21/19 10/28/19 11/04/19 10:11 08:53 10:38 Wound Center Nurse 2 #7 R Lower Side -Time 08:45 08:57 10:40 -Correct Patient Yes Yes Yes -Correct Side, Site, Position Yes Yes Yes -Correct Procedure Yes Yes Yes -Procedure Performed Yes Yes Yes -Type of Procedure Debridement Debridement Debridement -Clinical Debridement Subcutaneous Subcutaneous Subcutaneous -Post Debridement Size (cm) - Length 1.7 2.0 2.5 -Post Debridement Size (cm) - Width 4.4 4.5 4.2 -Post Debridement Size (cm) - Depth 0.3 0.3 0.3 -Total Square (cm) 7.48 9.00 10.50 -Wound/Ulcer Outcome Not Healed Not Healed Not Healed -Ulcer Cleansing Rinsed/ Rinsed/ Rinsed/ Irrigated with Irrigated with Irrigated with Saline Saline Saline -Foul Odor after Cleansing No No No -Bioengineered Tissue No No -Bleeding Controlled with Pressure Pressure Pressure -Offloading No No -Treatment Response Procedure Procedure Procedure Tolerated Well Tolerated Well Tolerated Well 6. L lumbar back -Time : 08:57 10:39 -Correct Patient Yes Yes Yes -Correct Side, Site, Position Yes Yes Yes -Correct Procedure Yes Yes Yes -Procedure Performed Yes Yes Yes -Type of Procedure Debridement Debridement Debridement -Clinical Debridement Subcutaneous Subcutaneous Subcutaneous -Post Debridement Size (cm) - Length 2 1.8 4.8 -Post Debridement Size (cm) - Width 8.8 8.0 5.6 -Post Debridement Size (cm) - Depth 0.2 0.1 0.1 -Total Square (cm) 17.6 14.40 26.88 -Wound/Ulcer Outcome Not Healed Not Healed Not Healed -Ulcer Cleansing Rinsed/ Rinsed/ Rinsed/ Irrigated with Irrigated with Irrigated with Saline Saline Saline -Foul Odor after Cleansing No No No -Bioengineered Tissue Yes Yes -Type of bioengineered Tissue EPIFIX EPIFIX -Expiration Date 06/15/24 06/15/24 -Product Lot Number [id number] -Percent Used 100 100 -Saline Lot Number [id number] -Bleeding Controlled with Pressure Pressure Pressure -Offloading No No -Treatment Response Procedure Procedure Procedure Tolerated Well Tolerated Well Tolerated Well 5. R scapula -Time :45 08:57 10:39 -Correct Patient Yes Yes Yes -Correct Side, Site, Position Yes Yes Yes -Correct Procedure Yes Yes Yes -Procedure Performed Yes Yes Yes -Type of Procedure Debridement Debridement Debridement -Clinical Debridement Subcutaneous Subcutaneous Subcutaneous -Post Debridement Size (cm) - Length 6.5 6.4 2 -Post Debridement Size (cm) - Width 0.9 1.0 1 -Post Debridement Size (cm) - Depth 0.2 0.2 0.1 -Total Square (cm) 5.85 6.40 2 -Wound/Ulcer Outcome Not Healed Not Healed Not Healed -Ulcer Cleansing Rinsed/ Rinsed/ Rinsed/ Irrigated with Irrigated with Irrigated with Saline Saline Saline -Foul Odor after Cleansing No No No -Bioengineered Tissue Yes Yes -Type of bioengineered Tissue EPIFIX EPIFIX -Expiration Date 06/15/24 06/15/24 -Product Lot Number [id number] -Percent Used 100 100 -Saline Lot Number [id number] -Bleeding Controlled with Pressure Pressure Pressure -Offloading No No -Treatment Response Procedure Procedure Procedure Tolerated Well Tolerated Well Tolerated Well Pain Scale: 0-10 Numeric Is Patient Pain Free? Yes Yes 11/11/19 09:27 Wound Center Nurse 2 #7 R Lower Side -Time 09:28 -Correct Patient Yes -Correct Side, Site, Position Yes -Correct Procedure Yes -Procedure Performed Yes -Type of Procedure Debridement -Clinical Debridement Subcutaneous -Post Debridement Size (cm) - Length 2.2 -Post Debridement Size (cm) - Width 5 -Post Debridement Size (cm) - Depth 0.3 -Total Square (cm) 11.0 -Wound/Ulcer Outcome Not Healed -Ulcer Cleansing Rinsed/ Irrigated with Saline -Foul Odor after Cleansing No -Bioengineered Tissue No -Bleeding Controlled with Pressure -Offloading No -Treatment Response Procedure Tolerated Well 6. L lumbar back -Time 09:29 -Correct Patient Yes -Correct Side, Site, Position Yes -Correct Procedure Yes -Procedure Performed Yes -Type of Procedure Debridement -Clinical Debridement Subcutaneous -Post Debridement Size (cm) - Length 7.4 -Post Debridement Size (cm) - Width 2 -Post Debridement Size (cm) - Depth 0.2 -Total Square (cm) 14.8 -Wound/Ulcer Outcome Not Healed -Ulcer Cleansing Rinsed/ Irrigated with Saline -Foul Odor after Cleansing No -Bioengineered Tissue Yes -Type of bioengineered Tissue EPIFIX -Expiration Date 06/15/24 -Product Lot Number [id number] -Percent Used 100 -Saline Lot Number [id number] -Bleeding Controlled with Pressure -Offloading No -Treatment Response Procedure Tolerated Well 5. R scapula -Time 09:29 -Correct Patient Yes -Correct Side, Site, Position Yes -Correct Procedure Yes -Procedure Performed Yes -Type of Procedure Debridement -Clinical Debridement Subcutaneous -Post Debridement Size (cm) - Length 3.3 -Post Debridement Size (cm) - Width 0.7 -Post Debridement Size (cm) - Depth 0.1 -Total Square (cm) 2.31 -Wound/Ulcer Outcome Not Healed -Ulcer Cleansing Rinsed/ Irrigated with Saline -Foul Odor after Cleansing No -Bioengineered Tissue Yes -Type of bioengineered Tissue EPIFIX -Expiration Date 06/15/24 -Product Lot Number [id number] -Percent Used 100 -Saline Lot Number [id number] -Bleeding Controlled with Pressure -Offloading No -Treatment Response Procedure Tolerated Well Pain Scale: 0-10 Numeric Is Patient Pain Free? Yes Wound debrided: Left middle lateral back ulcer Laterality: Left Type of Debridement: Excisional debridement Anesthesia Used: 5% Lidocaine Gel Depth: Down to and including healthy tissue, in the subcutaneous layer Percentage of wound debrided: 100 Instrument Used: 5mm curette Tissue Removed: Subcutaneous tissue and slough Severity: Fat Layer Exposed Amount of bleeding with debridement: Mild Bleeding Controlled with: Pressure Patient tolerated procedure well - Additional Wound Wound debrided: Middle lateral back ulcer Laterality: Right Type of Debridement: Excisional debridement Anesthesia Used: 5% Lidocaine Gel Depth: Down to and including healthy tissue, in the subcutaneous layer Percentage of wound debrided: 100 Instrument Used: 3mm curette Tissue Removed: Subcutaneous tissue and slough Severity: Fat Layer Exposed Amount of bleeding with debridement: Mild Bleeding Controlled with: Pressure Patient tolerated procedure: Patient tolerated procedure well - Additional Wound Wound debrided: flank ulcer Laterality: Right Type of Debridement: Excisional debridement Anesthesia Used: 5% Lidocaine Gel Depth: Down to and including healthy tissue, in the subcutaneous layer Percentage of wound debrided: 100 Instrument Used: 5mm curette Tissue Removed: Subcutaneous tissue and slough Severity: Fat Layer Exposed Amount of bleeding with debridement: Mild Bleeding Controlled with: Pressure, Compression and gauze Patient tolerated procedure: Patient did not tolerate procedure well Assessment/Plan Active Problems (Last Reviewed 04/30/19 @ 09:[address] Ryan Gandhi, DO) Chronic renal insufficiency, stage I (Chronic) Dehiscence of external surgical wound (Chronic) Non-pressure chronic ulcer of skin of other sites with fat layer exposed (Chronic) Nonhealing ulcers right lateral middle back and left lateral middle back Type 2 diabetes mellitus (Chronic) Assessment: 1. Nonhealing diabetic ulcer right lateral middle back. 2. Nonhealing diabetic ulcer left lateral middle back. 3. Nonhealing diabetic ulcer right posterior flank. 4. Diabetes mellitus. 5. s/p surgical preparation right lateral middle back with incision and drainage and excisional debridement nonhealing infected diabetic ulcer (66 cm2) and surgical preparation left lateral middle back with incision and drainage and excisional debridement nonhealing infected diabetic ulcer (137.75 cm2). Plan: Applied Epifix #5 (Placental connective tissue graft) today to right lateral middle back and left lateral middle back ulcers. Topped with collagen hydrogel to help it from drying out. This was dressed with a wound veil and steri-strips. 28.88 cm2 was used. Continue Silver dressing changes daily to the right flank. Wound culture was obtained 11/04/19 from the right flank that was positive for Staphylococcus epidermidis and Corynebacterium amycolatum. Will start him Levaquin and a 10 day course of Augmentin. Labs from 07/22/19- Prealbumin 18.7 and HgA1c 5.9. Encourage nutritional supplementation with protein to help the healing process. If the right flank ulcer shows a plateau in the healing process, can consider operative debridement and complex secondary wound closure. Because of positioning on the operating table, he would like to wait until the EpiFix applications are completed and then proceed with surgery to close the right flank ulcer. Followup one week. [id number]: [id number] Pooja subq tissue 20 sq cm/< - Right flank ulcer [id number]: [id number] Skin sub graft trnk/arm/leg - Right middle back and left middle back ulcers
== END 2019-11-15 23:59 ==
LOC: WC 09:00
PROVIDERS: Family Provider Family Medicine; PCP Surgery; Referring Provider Nurse Practitioner Family; Visit Provider Nurse Practitioner Family
DX: L98.492 Non-pressure chronic ulcer of skin of other sites with fat layer exposed (principal); E11.622 Type 2 diabetes mellitus with other skin ulcer; T81.31XA Disruption of external operation (surgical) wound, not elsewhere classified, initial encounter; T86.821 Skin graft (allograft) (autograft) failure; N18.1 Chronic kidney disease, stage 1; E11.22 Type 2 diabetes mellitus with diabetic chronic kidney disease
CPT/HCPCS: 11042; 11045; 15271; 15272; 87070; 87075; 87077; 87186; 87205; Q4186

== ENCOUNTER 2019-12-16 11:30 | Outpatient (RCR) | payer OTHER, SELFPAY ==
[2019-11-16 00:22] VITALS: BP 122/58; PULSE 78; RESP 20; TEMP 36.8; O2SAT 97
[2019-11-18 08:57] VITALS: BP 118/74; PULSE 70; RESP 16; TEMP 35.9; BMI 28.2
--- NOTE | 2019-11-18 10:19 | PN.PCM_ITS ---
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 Comment: Nonhealing ulcers right lateral middle back and left lateral middle back (2) Dehiscence of external surgical wound Status: Chronic Current Visit: Yes Qualifiers: Code(s): T81.31XA - Disruption of external operation (surgical) wound, not elsewhere classified, initial encounter (3) Type 2 diabetes mellitus Status: Chronic Current Visit: Yes Qualifiers: Code(s): E11.9 - Type 2 diabetes mellitus without complications Type of Wound Date of Service: 11/18/19 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: Nonhealing diabetic ulcers left lateral middle back and right lateral middle back and nonhealing diabetic ulcer right flank. History of Wound: Surgery 07/23/19 - 1. Surgical preparation right lateral middle back with incision and drainage and excisional debridement nonhealing infected diabetic ulcer (66 cm2). 2. Surgical preparation left lateral middle back with incision and drainage and excisional debridement nonhealing infected diabetic ulcer (137.75 cm2). Wound care - Epifix on right middle lateral back and left middle lateral back ulcers. Daily silver dressing changes to right flank ulcer. He has persistent pain in the right flank ulcer and a wound culture was obtained on 09/23/19 and it showed Staphylococcus aureus. He was started on Doxycycline and has finished them. Operative cultures from 07/23/19 were positive for resistant Staphylococcus epidermidis (MRSE). He was started on IV Vancomycin since he had been on Doxycyline, Cleocin, and Zyvox in the past for the persistent Staph infections. He developed compromise to the healing skin grafts that necessitated HBO Treatments which he tolerated. Prealbumin from 07/22/19 was 18.7. Encourage nutritonal supplementation with protein to help the healing process. His HgbA1c from 07/22/19 was 5.9. Today he denies fever. His appetite is good. Progress of Wound: Improved. - Physical Exam Vital Signs Temp Pulse Resp BP Pulse Ox 96.6 F L 70 16 118/74 97 11/18/19 08:57 11/18/19 08:57 11/18/19 08:57 11/18/19 08:57 11/16/19 00:22 General: Alert, Oriented x3, Cooperative HEENT: Atraumatic Oral: Moist Mucosa Lungs: Normal air movement Cardiovascular: Regular rate Extremities: No edema, Capillary Refill Less than 3 Seconds Skin: Ulcer/ Wound - Left lateral middle back ulcer and right lateral middle back ulcer with good granulation tissue and healing well. Right flank ulcer beefy pink, it is very sensitive to palpation. Wound Measurements and Assessment WC - Nurse 1 - General Ulcer Measurement Start: 11/18/19 08:56 Freq: Status: Active Protocol: Activity Type Activity Date Activity User E-Sign Co-Sign Detail Recorded Client Recorded Date Recorded By Document 11/18/19 08:57 [facility] [id number] 11/18/19 09:16 [facility] 11/18/19 08:57 Wound Center Nurse 1 [Ulcer Assessment] #7 R Lower Side -Combined with other wound No -Current Size (cm) - Length 3 -Current Size (cm) - Width 5 -Current Size (cm) - Depth 0.4 -Total Square Cm 15 -Date of Last Picture (Recall this 11/18/19 field) -Photo Taken Yes -Epithelialization None Present -Tunneling No -Undermining/Tunneling No -Circular Undermining No -Exudate Amt Small -Exudate Type Serosanguineous -Wound Margin Thickened -Granulation Amt Large (67-100%) -Granulation Quality Red -Slough/Fibrin Yes -Necrosis Amt Large (67-100%) -Necrotic Tissue Type Adherent Slough -Texture (Mayra-wound Skin Appearance) Assessed, Scarring -Moisture (Mayra-wound Skin Appearance Assessed ) -Color (Mayra-wound Skin Appearance) Assessed -Temperature (Mayra-wound Skin No Abnormality Appearance) (Pt Warm) -Tenderness on Palpation (Mayra-wound Yes Skin Appearance) -Ulcer Cleansing SOAPY WATER -Foul Odor after Cleansing No -Anesthetic Used 5% Lidocaine Gel 6. L lumbar back -Combined with other wound No -Current Size (cm) - Length 4.2 -Current Size (cm) - Width 4.5 -Current Size (cm) - Depth 0.1 -Total Square Cm 18.90 -Date of Last Picture (Recall this 11/18/19 field) -Photo Taken Yes -Epithelialization Small 1-33% -Tunneling No -Undermining/Tunneling No -Circular Undermining No -Exudate Amt Small -Exudate Type Serosanguineous -Wound Margin Distinct, Outline Attached -Granulation Amt Medium (34-66%) -Granulation Quality Red -Slough/Fibrin Yes -Necrosis Amt Small (1-33%) -Necrotic Tissue Type Adherent Slough -Texture (Mayra-wound Skin Appearance) Assessed, Scarring -Moisture (Mayra-wound Skin Appearance Assessed,Dry/ ) Scaly -Color (Mayra-wound Skin Appearance) Assessed -Temperature (Mayra-wound Skin No Abnormality Appearance) (Pt Warm) -Tenderness on Palpation (Mayra-wound No Skin Appearance) -Ulcer Cleansing SOAPY WATER -Foul Odor after Cleansing No -Anesthetic Used 5% Lidocaine Gel 5. R scapula -Combined with other wound No -Current Size (cm) - Length 3.3 -Current Size (cm) - Width 0.8 -Current Size (cm) - Depth 0.1 -Total Square Cm 2.64 -Date of Last Picture (Recall this 11/18/19 field) -Photo Taken Yes -Epithelialization Medium 34-66% -Tunneling No -Undermining/Tunneling No -Circular Undermining No -Exudate Amt Small -Exudate Type Serosanguineous -Wound Margin Flat & Intact -Granulation Amt Large (67-100%) -Granulation Quality Red -Slough/Fibrin Yes -Necrosis Amt Small (1-33%) -Necrotic Tissue Type Adherent Slough -Texture (Mayra-wound Skin Appearance) Assessed, Scarring -Moisture (Mayra-wound Skin Appearance Assessed ) -Color (Mayra-wound Skin Appearance) Assessed -Temperature (Mayra-wound Skin No Abnormality Appearance) (Pt Warm) -Tenderness on Palpation (Mayra-wound No Skin Appearance) -Ulcer Cleansing SOAPY WATER -Foul Odor after Cleansing No -Anesthetic Used 5% Lidocaine Gel WC - Nurse 2 - General Ulcer CM Notes Start: 11/18/19 08:56 Freq: Status: Active Protocol: Activity Type Activity Date Activity User E-Sign Co-Sign Detail Recorded Client Recorded Date Recorded By Document 11/18/19 09:37 [facility] [id number] 11/18/19 09:50 [facility] 11/18/19 09:37 Wound Center Nurse 2 [Procedure/Treatment] #7 R Lower Side -Time 09:37 -Correct Patient Yes -Correct Side, Site, Position Yes -Correct Procedure Yes -Procedure Performed Yes -Type of Procedure Debridement -Clinical Debridement Subcutaneous -Post Debridement Size (cm) - Length 2.5 -Post Debridement Size (cm) - Width 5.3 -Post Debridement Size (cm) - Depth 0.3 -Total Square (cm) 13.25 -Wound/Ulcer Outcome Not Healed -Ulcer Cleansing Rinsed/ Irrigated with Saline -Foul Odor after Cleansing No -Bioengineered Tissue No -Bleeding Controlled with Pressure -Offloading No -Treatment Response Procedure Tolerated Well 6. L lumbar back -Time 09:38 -Correct Patient Yes -Correct Side, Site, Position Yes -Correct Procedure Yes -Procedure Performed Yes -Type of Procedure Debridement -Clinical Debridement Subcutaneous -Post Debridement Size (cm) - Length 6.8 -Post Debridement Size (cm) - Width 1.6 -Post Debridement Size (cm) - Depth 0.1 -Total Square (cm) 10.88 -Wound/Ulcer Outcome Not Healed -Ulcer Cleansing Rinsed/ Irrigated with Saline -Foul Odor after Cleansing No -Bioengineered Tissue Yes -Type of bioengineered Tissue EPIFIX -Expiration Date 08/15/24 -Product Lot Number [id number] -Percent Used 100 -Saline Lot Number [id number] -Bleeding Controlled with Pressure -Offloading No -Treatment Response Procedure Tolerated Well 5. R scapula -Time 09:38 -Correct Patient Yes -Correct Side, Site, Position Yes -Correct Procedure Yes -Procedure Performed Yes -Type of Procedure Debridement -Clinical Debridement Subcutaneous -Post Debridement Size (cm) - Length 0.8 -Post Debridement Size (cm) - Width 1 -Post Debridement Size (cm) - Depth 0.1 -Total Square (cm) 0.8 -Wound/Ulcer Outcome Not Healed -Ulcer Cleansing Rinsed/ Irrigated with Saline -Foul Odor after Cleansing No -Bioengineered Tissue Yes -Type of bioengineered Tissue EPIFIX -Expiration Date 08/15/24 -Product Lot Number [id number] -Percent Used 100 -Saline Lot Number [id number] -Bleeding Controlled with Pressure -Offloading No -Treatment Response Procedure Tolerated Well [See Physician Procedure note for Specifics] Pain Scale: 0-10 Numeric [Pain] -Is Patient Pain Free? Yes Musculoskeletal: No Tenderness to Palpation of Joints or Extremities Neurological: Cranial nerves II-XII grossly intact Psych/Mental Status: Normal Affect, Appropriate Debridement Note Post-Debridement Measurements/Treatment WC - Nurse 2 - General Ulcer CM Notes Start: 11/18/19 08:56 Freq: Status: Active Protocol: Activity Type Activity Date Activity User E-Sign Co-Sign Detail Recorded Client Recorded Date Recorded By Document 11/18/19 09:37 [facility] [id number] 11/18/19 09:50 [facility] 11/18/19 09:37 Wound Center Nurse 2 #7 R Lower Side -Time 09:37 -Correct Patient Yes -Correct Side, Site, Position Yes -Correct Procedure Yes -Procedure Performed Yes -Type of Procedure Debridement -Clinical Debridement Subcutaneous -Post Debridement Size (cm) - Length 2.5 -Post Debridement Size (cm) - Width 5.3 -Post Debridement Size (cm) - Depth 0.3 -Total Square (cm) 13.25 -Wound/Ulcer Outcome Not Healed -Ulcer Cleansing Rinsed/ Irrigated with Saline -Foul Odor after Cleansing No -Bioengineered Tissue No -Bleeding Controlled with Pressure -Offloading No -Treatment Response Procedure Tolerated Well 6. L lumbar back -Time 09:38 -Correct Patient Yes -Correct Side, Site, Position Yes -Correct Procedure Yes -Procedure Performed Yes -Type of Procedure Debridement -Clinical Debridement Subcutaneous -Post Debridement Size (cm) - Length 6.8 -Post Debridement Size (cm) - Width 1.6 -Post Debridement Size (cm) - Depth 0.1 -Total Square (cm) 10.88 -Wound/Ulcer Outcome Not Healed -Ulcer Cleansing Rinsed/ Irrigated with Saline -Foul Odor after Cleansing No -Bioengineered Tissue Yes -Type of bioengineered Tissue EPIFIX -Expiration Date 08/15/24 -Product Lot Number [id number] -Percent Used 100 -Saline Lot Number [id number] -Bleeding Controlled with Pressure -Offloading No -Treatment Response Procedure Tolerated Well 5. R scapula -Time 09:38 -Correct Patient Yes -Correct Side, Site, Position Yes -Correct Procedure Yes -Procedure Performed Yes -Type of Procedure Debridement -Clinical Debridement Subcutaneous -Post Debridement Size (cm) - Length 0.8 -Post Debridement Size (cm) - Width 1 -Post Debridement Size (cm) - Depth 0.1 -Total Square (cm) 0.8 -Wound/Ulcer Outcome Not Healed -Ulcer Cleansing Rinsed/ Irrigated with Saline -Foul Odor after Cleansing No -Bioengineered Tissue Yes -Type of bioengineered Tissue EPIFIX -Expiration Date 08/15/24 -Product Lot Number [id number] -Percent Used 100 -Saline Lot Number [id number] -Bleeding Controlled with Pressure -Offloading No -Treatment Response Procedure Tolerated Well Pain Scale: 0-10 Numeric Is Patient Pain Free? Yes Wound debrided: Lateral, middle back ulcer Laterality: Left Type of Debridement: Excisional debridement Anesthesia Used: 5% Lidocaine Gel Depth: Down to and including healthy tissue, in the subcutaneous layer Percentage of wound debrided: 100 Instrument Used: 5mm curette Tissue Removed: Subcutaneous tissue and slough Severity: Fat Layer Exposed Amount of bleeding with debridement: Mild Bleeding Controlled with: Pressure Patient tolerated procedure well - Additional Wound Wound debrided: lateral, middle back ulcer Laterality: Right Type of Debridement: Excisional debridement Anesthesia Used: 5% Lidocaine Gel Depth: Down to and including healthy tissue, in the subcutaneous layer Percentage of wound debrided: 100 Instrument Used: 3mm curette Tissue Removed: Subcutaneous tissue and slough Severity: Limited To Skin Breakdown Amount of bleeding with debridement: Mild Bleeding Controlled with: Pressure Patient tolerated procedure: Patient tolerated procedure well - Additional Wound Wound debrided: Flank ulcer Laterality: Right Type of Debridement: Excisional debridement Anesthesia Used: 5% Lidocaine Gel Depth: Down to and including healthy tissue, in the subcutaneous layer Percentage of wound debrided: 100 Instrument Used: 5mm curette Tissue Removed: Subcutaneous tissue and slough Severity: Fat Layer Exposed Amount of bleeding with debridement: Mild Bleeding Controlled with: Pressure, Compression and gauze Patient tolerated procedure: Patient did not tolerate procedure well Assessment/Plan Active Problems (Last Reviewed 04/30/19 @ 09:[address] 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 Nonhealing diabetic ulcer right lateral middle back. 2. Nonhea ling diabetic ulcer left lateral middle back. 3. Nonhealing diabetic ulcer right posterior flank. 4. Diabetes mellitus. 5. s/p surgical preparation right lateral middle back with incision and drainage and excisional debridement nonhealing infected diabetic ulcer (66 cm2) and surgical preparation left lateral middle back with incision and drainage and excisional debridement nonhealing infected diabetic ulcer (137.75 cm2). Plan: Applied Epifix #6 (Placental connective tissue graft) today to right lateral middle back and left lateral middle back ulcers. Topped with collagen hydrogel to help it from drying out. This was dressed with a wound veil and steri-strips. Continue Silver dressing changes daily to the right flank. Wound culture was obtained 11/04/19 from the right flank that was positive for Staphylococcus epidermidis and Corynebacterium amycolatum. He has been taking Levaquin and will finish Augmentin this week. Labs from 07/22/19- Prealbumin 18.7 and HgA1c 5.9. Encourage nutritional supplementation with protein to help the healing process. If the right flank ulcer shows a plateau in the healing process, can consider operative debridement and complex secondary wound closure. Because of positioning on the operating table, he would like to wait until the EpiFix applications are completed and then proceed with surgery to close the right flank ulcer. Followup one week. [id number]: [id number] Pooja subq tissue 20 sq cm/< - Right flank ulcer [id number]: [id number] Skin sub graft trnk/arm/leg - Right and left lateral back ulcers
[2019-11-25 09:07] VITALS: BP 107/73; PULSE 75; RESP 20; TEMP 37; BMI 28.2
--- NOTE | 2019-11-25 15:37 | PN.PCM_ITS ---
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 History of Wound: Surgery 07/23/19 - 1. Surgical preparation right lateral middle back with incision and drainage and excisional debridement nonhealing infected diabetic ulcer (66 cm2). 2. Surgical preparation left lateral middle back with incision and drainage and excisional debridement nonhealing infected diabetic ulcer (137.75 cm2). Wound care - Epifix on right middle lateral back and left middle lateral back ulcers. Daily silver dressing changes to right flank ulcer. He has persistent pain in the right flank ulcer and a wound culture was obtained on 09/23/19 and it showed Staphylococcus aureus. He was started on Doxycycline and has finished them. Operative cultures from 07/23/19 were positive for resistant Staphylococcus epidermidis (MRSE). He was started on IV Vancomycin since he had been on Doxycyline, Cleocin, and Zyvox in the past for the persistent Staph infections. He developed compromise to the healing skin grafts that necessitated HBO Treatments which he tolerated. Prealbumin from 07/22/19 was 18.7. Encourage nutritonal supplementation with protein to help the healing process. His HgbA1c from 07/22/19 was 5.9. Today he denies fever. His appetite is good. Progress of Wound: Improved. - Physical Exam Vital Signs Temp Pulse Resp BP Pulse Ox 98.6 F 75 20 H 107/73 97 11/25/19 09:07 11/25/19 09:07 11/25/19 09:07 11/25/19 09:07 11/16/19 00:22 General: Alert, Oriented x3, Cooperative HEENT: Atraumatic Oral: Moist Mucosa Lungs: Normal air movement Cardiovascular: Regular rate Extremities: No edema, Capillary Refill Less than 3 Seconds Skin: Ulcer/ Wound - Right flank ulcer pink and very sensitive to touch. Right middle lateral back improved. Left middle back improved but has a new area that opened in the healed area. Wound Measurements and Assessment WC - Nurse 1 - General Ulcer Measurement Start: 11/18/19 08:56 Freq: Status: Active Protocol: Activity Type Activity Date Activity User E-Sign Co-Sign Detail Recorded Client Recorded Date Recorded By Document 11/25/19 09:07 DL [id number] 11/25/19 09:19 DL 11/25/19 09:07 Wound Center Nurse 1 [Ulcer Assessment] #7 R Lower Side -Current Size (cm) - Length 2.4 -Current Size (cm) - Width 5.3 -Current Size (cm) - Depth 0.2 -Total Square Cm 12.72 -Photo Taken No -Exudate Amt Small -Exudate Type Serosanguineous -Wound Margin Distinct, Outline Attached -Granulation Amt Medium (34-66%) -Granulation Quality Red -Necrosis Amt Medium (34-66%) -Necrotic Tissue Type Adherent Slough -Structure Exposed N/A -Texture (Mayra-wound Skin Appearance) Scarring -Moisture (Mayra-wound Skin Appearance No Abnormality ) -Color (Mayra-wound Skin Appearance) Erythema -Temperature (Mayra-wound Skin No Abnormality Appearance) (Pt Warm) -Tenderness on Palpation (Mayra-wound Yes Skin Appearance) -Ulcer Cleansing Wound Cleanser -Foul Odor after Cleansing No -Anesthetic Used 4% Lidocaine Solution,5% Lidocaine Gel 6. L lumbar back -Current Size (cm) - Length 3.3 -Current Size (cm) - Width 6.6 -Current Size (cm) - Depth 0.1 -Total Square Cm 21.78 -Photo Taken No -Exudate Amt Small -Exudate Type Serosanguineous -Wound Margin Distinct, Outline Attached -Granulation Amt Large (67-100%) -Granulation Quality [place],Red -Necrosis Amt Small (1-33%) -Necrotic Tissue Type Adherent Slough -Structure Exposed N/A -Texture (Mayra-wound Skin Appearance) Scarring -Moisture (Mayra-wound Skin Appearance No Abnormality ) -Color (Mayra-wound Skin Appearance) No Abnormality -Temperature (Mayra-wound Skin No Abnormality Appearance) (Pt Warm) -Tenderness on Palpation (Mayra-wound No Skin Appearance) -Ulcer Cleansing Wound Cleanser -Foul Odor after Cleansing No -Anesthetic Used 4% Lidocaine Solution 5. R scapula -Current Size (cm) - Length 0.4 -Current Size (cm) - Width 2.8 -Current Size (cm) - Depth 0.1 -Total Square Cm 1.12 -Photo Taken No -Exudate Amt Small -Exudate Type Serosanguineous -Wound Margin Distinct, Outline Attached -Granulation Amt Large (67-100%) -Granulation Quality [place] -Necrosis Amt Small (1-33%) -Necrotic Tissue Type Adherent Slough -Structure Exposed N/A -Texture (Mayra-wound Skin Appearance) Scarring -Moisture (Mayra-wound Skin Appearance No Abnormality ) -Color (Mayra-wound Skin Appearance) No Abnormality -Temperature (Mayra-wound Skin No Abnormality Appearance) (Pt Warm) -Tenderness on Palpation (Mayra-wound No Skin Appearance) -Ulcer Cleansing Wound Cleanser -Foul Odor after Cleansing No -Anesthetic Used 4% Lidocaine Solution WC - Nurse 2 - General Ulcer CM Notes Start: 11/18/19 08:56 Freq: Status: Active Protocol: Activity Type Activity Date Activity User E-Sign Co-Sign Detail Recorded Client Recorded Date Recorded By Document 11/25/19 09:37 [facility] [id number] 11/25/19 09:43 [facility] 11/25/19 09:37 Wound Center Nurse 2 [Procedure/Treatment] #7 R Lower Side -Time 09:40 -Correct Patient Yes -Correct Side, Site, Position Yes -Correct Procedure Yes -Procedure Performed Yes -Type of Procedure Debridement -Clinical Debridement Subcutaneous -Post Debridement Size (cm) - Length 2.5 -Post Debridement Size (cm) - Width 5.3 -Post Debridement Size (cm) - Depth 0.3 -Total Square (cm) 13.25 -Wound/Ulcer Outcome Not Healed -Ulcer Cleansing Rinsed/ Irrigated with Saline -Foul Odor after Cleansing No -Bioengineered Tissue No -Bleeding Controlled with Pressure -Offloading No -Treatment Response Procedure Tolerated Well 6. L lumbar back -Time 09:38 -Correct Patient Yes -Correct Side, Site, Position Yes -Correct Procedure Yes -Procedure Performed Yes -Type of Procedure Debridement -Clinical Debridement Subcutaneous -Post Debridement Size (cm) - Length 6.6 -Post Debridement Size (cm) - Width 3 -Post Debridement Size (cm) - Depth 0.1 -Total Square (cm) 19.8 -Wound/Ulcer Outcome Not Healed -Ulcer Cleansing Rinsed/ Irrigated with Saline -Foul Odor after Cleansing No -Bioengineered Tissue No -Bleeding Controlled with Pressure -Offloading No -Treatment Response Procedure Tolerated Well 5. R scapula -Time 09:37 -Correct Patient Yes -Correct Side, Site, Position Yes -Correct Procedure Yes -Procedure Performed Yes -Type of Procedure Debridement -Clinical Debridement Subcutaneous -Post Debridement Size (cm) - Length 0.5 -Post Debridement Size (cm) - Width 5.0 -Post Debridement Size (cm) - Depth 0.1 -Total Square (cm) 2.50 -Wound/Ulcer Outcome Not Healed -Ulcer Cleansing Rinsed/ Irrigated with Saline -Foul Odor after Cleansing No -Bioengineered Tissue No -Bleeding Controlled with Pressure -Offloading No -Treatment Response Procedure Tolerated Well [See Physician Procedure note for Specifics] Pain Scale: 0-10 Numeric [Pain] -Is Patient Pain Free? Yes Musculoskeletal: No Tenderness to Palpation of Joints or Extremities Neurological: Cranial nerves II-XII grossly intact Psych/Mental Status: Normal Affect, Appropriate Debridement Note Post-Debridement Measurements/Treatment WC - Nurse 2 - General Ulcer CM Notes Start: 11/18/19 08:56 Freq: Status: Active Protocol: Activity Type Activity Date Activity User E-Sign Co-Sign Detail Recorded Client Recorded Date Recorded By Document 11/18/19 09:37 [id number] 11/18/19 09:50 Document 11/25/19 09:37 [id number] 11/25/19 09:43 11/18/19 11/25/19 09:37 09:37 Wound Center Nurse 2 #7 R Lower Side -Time 09:37 09:40 -Correct Patient Yes Yes -Correct Side, Site, Position Yes Yes -Correct Procedure Yes Yes -Procedure Performed Yes Yes -Type of Procedure Debridement Debridement -Clinical Debridement Subcutaneous Subcutaneous -Post Debridement Size (cm) - Length 2.5 2.5 -Post Debridement Size (cm) - Width 5.3 5.3 -Post Debridement Size (cm) - Depth 0.3 0.3 -Total Square (cm) 13.25 13.25 -Wound/Ulcer Outcome Not Healed Not Healed -Ulcer Cleansing Rinsed/ Rinsed/ Irrigated with Irrigated with Saline Saline -Foul Odor after Cleansing No No -Bioengineered Tissue No No -Bleeding Controlled with Pressure Pressure -Offloading No No -Treatment Response Procedure Procedure Tolerated Well Tolerated Well 6. L lumbar back -Time 09:38 09:38 -Correct Patient Yes Yes -Correct Side, Site, Position Yes Yes -Correct Procedure Yes Yes -Procedure Performed Yes Yes -Type of Procedure Debridement Debridement -Clinical Debridement Subcutaneous Subcutaneous -Post Debridement Size (cm) - Length 6.8 6.6 -Post Debridement Size (cm) - Width 1.6 3 -Post Debridement Size (cm) - Depth 0.1 0.1 -Total Square (cm) 10.88 19.8 -Wound/Ulcer Outcome Not Healed Not Healed -Ulcer Cleansing Rinsed/ Rinsed/ Irrigated with Irrigated with Saline Saline -Foul Odor after Cleansing No No -Bioengineered Tissue Yes No -Type of bioengineered Tissue EPIFIX -Expiration Date 08/15/24 -Product Lot Number [id number] -Percent Used 100 -Saline Lot Number [id number] -Bleeding Controlled with Pressure Pressure -Offloading No No -Treatment Response Procedure Procedure Tolerated Well Tolerated Well 5. R scapula -Time 09:38 09:37 -Correct Patient Yes Yes -Correct Side, Site, Position Yes Yes -Correct Procedure Yes Yes -Procedure Performed Yes Yes -Type of Procedure Debridement Debridement -Clinical Debridement Subcutaneous Subcutaneous -Post Debridement Size (cm) - Length 0.8 0.5 -Post Debridement Size (cm) - Width 1 5.0 -Post Debridement Size (cm) - Depth 0.1 0.1 -Total Square (cm) 0.8 2.50 -Wound/Ulcer Outcome Not Healed Not Healed -Ulcer Cleansing Rinsed/ Rinsed/ Irrigated with Irrigated with Saline Saline -Foul Odor after Cleansing No No -Bioengineered Tissue Yes No -Type of bioengineered Tissue EPIFIX -Expiration Date 08/15/24 -Product Lot Number [id number] -Percent Used 100 -Saline Lot Number [id number] -Bleeding Controlled with Pressure Pressure -Offloading No No -Treatment Response Procedure Procedure Tolerated Well Tolerated Well Pain Scale: 0-10 Numeric Is Patient Pain Free? Yes Yes Wound debrided: flank ulcer Laterality: Right Type of Debridement: Excisional debridement Anesthesia Used: 5% Lidocaine Gel Depth: Down to and including healthy tissue, in the subcutaneous layer Percentage of wound debrided: 100 Instrument Used: 5mm curette Tissue Removed: Subcutaneous tissue and slough Severity: Fat Layer Exposed Amount of bleeding with debridement: Mild Bleeding Controlled with: Pressure Patient did not tolerate procedure well - Additional Wound Wound debrided: Middle lateral back ulcer Laterality: Right Type of Debridement: Excisional debridement Anesthesia Used: 5% Lidocaine Gel Depth: Down to and including healthy tissue, in the subcutaneous layer Percentage of wound debrided: 100 Instrument Used: 3mm curette Tissue Removed: Subcutaneous tissue and slough Severity: Limited To Skin Breakdown Amount of bleeding with debridement: Mild Bleeding Controlled with: Pressure Patient tolerated procedure: Patient tolerated procedure well - Additional Wound Wound debrided: Middle lateral back ulcer Laterality: Left Type of Debridement: Excisional debridement Anesthesia Used: 5% Lidocaine Gel Depth: Down to and including healthy tissue, in the subcutaneous layer Percentage of wound debrided: 100 Instrument Used: 3mm curette Tissue Removed: Subcutaneous tissue and slough Severity: Limited To Skin Breakdown Amount of bleeding with debridement: Mild Bleeding Controlled with: Pressure Patient tolerated procedure: Patient tolerated procedure well Assessment/Plan Assessment: 1. Nonhealing diabetic ulcer right lateral middle back. 2. Nonhealing diabetic ulcer left lateral middle back. 3. Nonhealing diabetic ulcer right posterior flank. 4. Diabetes mellitus. 5. s/p surgical preparation right lateral middle back with incision and drainage and excisional debridement nonhealing infected diabetic ulcer (66 cm2) and surgical preparation left lateral middle back with incision and drainage and excisional debridement nonhealing infected diabetic ulcer (137.75 cm2). Plan: Applied Epifix #6 (Placental connective tissue graft) last week. Will hold epifix this week and do daily collagen hydrogel covered by adaptic so that the ulcers can be washed with soap and water daily. Continue Silver dressing changes daily to the right flank. Wound culture was obtained 11/04/19 from the right flank that was positive for Staphylococcus epidermidis and Corynebacterium amycolatum. He has been taking Levaquin and completed Augmentin. Labs from 07/22/19- Prealbumin 18.7 and HgA1c 5.9. Encourage nutritional supplementation with protein to help the healing process. If the right flank ulcer shows a plateau in the healing process, can consider operative debridement and complex secondary wound closure. Because of positioning on the operating table, he would like to wait until the EpiFix applications are completed and then proceed with surgery to close the right flank ulcer.\. Percocet renewed (14 tabs). PDMP reviewed. Followup one week. [id number]: [id number] Pooja subq tissue 20 sq cm/< Add On Codes: [id number] Pooja subq tissue add-on - x1
[2019-12-02 09:03] VITALS: BP 128/67; PULSE 75; RESP 16; TEMP 36.2; BMI 28.2
--- NOTE | 2019-12-02 16:40 | PN.PCM_ITS ---
Type of Wound Date of Service: 12/02/19 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: Nonhealing diabetic ulcers left lateral middle back and right lateral middle back and nonhealing diabetic ulcer right flank. History of Wound: Surgery 07/23/19 - 1. Surgical preparation right lateral middle back with incision and drainage and excisional debridement nonhealing infected diabetic ulcer (66 cm2). 2. Surgical preparation left lateral middle back with incision and drainage and excisional debridement nonhealing infected diabetic ulcer (137.75 cm2). Wound care - Epifix #6 on right middle lateral back and left middle lateral back ulcers. Daily silver dressing changes to right flank ulcer. He has persistent pain in the right flank ulcer and a wound culture was obtained on 09/23/19 and it showed Staphylococcus aureus. He was started on Doxycycline and has finished them. Repeat wound culture on 11/04/19 showed Staphylococcus epidermidis and Corynebacterium amycolatum. He was placed on Levaquin and Augmentin and has finished them. Operative cultures from 07/23/19 were positive for resistant Staphylococcus epidermidis (MRSE). He was started on IV Vancomycin since he had been on Doxycyline, Cleocin, and Zyvox in the past for the persistent Staph infections. He developed compromise to the healing skin grafts that necessitated HBO Treatments which he tolerated. Prealbumin from 07/22/19 was 18.7. Encourage nutritonal supplementation with protein to help the healing process. His HgbA1c from 07/22/19 was 5.9. Today he denies fever. His appetite is good. Progress of Wound: The left lateral middle back ulcer has improved and the right lateral middle back ulcer has healed and the right flank ulcer has persistent pain. - Physical Exam Vital Signs Temp Pulse Resp BP Pulse Ox 97.2 F L 75 16 128/67 H 97 12/02/19 09:03 12/02/19 09:03 12/02/19 09:03 12/02/19 09:03 11/16/19 00:22 Wound Measurements and Assessment WC - Nurse 1 - General Ulcer Measurement Start: 11/18/19 08:56 Freq: Status: Active Protocol: Activity Type Activity Date Activity User E-Sign Co-Sign Detail Recorded Client Recorded Date Recorded By Document 12/02/19 09:03 [facility] [id number] 12/02/19 09:16 BMF 12/02/19 09:03 Wound Center Nurse 1 [Ulcer Assessment] #7 R Lower Side -Combined with other wound No -Current Size (cm) - Length 2.4 -Current Size (cm) - Width 5 -Current Size (cm) - Depth 0.4 -Total Square Cm 12.0 -Photo Taken No -Epithelialization None Present -Tunneling No -Undermining/Tunneling No -Circular Undermining No -Exudate Amt Small -Exudate Type Serosanguineous -Wound Margin Distinct, Outline Attached -Granulation Amt Large (67-100%) -Granulation Quality Red -Slough/Fibrin Yes -Necrosis Amt Small (1-33%) -Necrotic Tissue Type Adherent Slough -Texture (Mayra-wound Skin Appearance) Assessed -Moisture (Mayra-wound Skin Appearance Assessed ) -Color (Mayra-wound Skin Appearance) Assessed -Temperature (Mayra-wound Skin No Abnormality Appearance) (Pt Warm) -Tenderness on Palpation (Mayra-wound Yes Skin Appearance) -Ulcer Cleansing Rinsed/ Irrigated with Saline -Foul Odor after Cleansing No -Anesthetic Used 5% Lidocaine Gel 6. L lumbar back -Combined with other wound No -Current Size (cm) - Length 4.1 -Current Size (cm) - Width 6.1 -Current Size (cm) - Depth 0.3 -Total Square Cm 25.01 -Photo Taken No -Epithelialization Small 1-33% -Tunneling No -Undermining/Tunneling No -Circular Undermining No -Exudate Amt Small -Exudate Type Serosanguineous -Wound Margin Distinct, Outline Attached -Granulation Amt Large (67-100%) -Granulation Quality Red -Slough/Fibrin No -Necrosis Amt None Present (0 %) -Texture (Mayra-wound Skin Appearance) Assessed, Scarring -Moisture (Mayra-wound Skin Appearance Assessed ) -Color (Mayra-wound Skin Appearance) Assessed -Temperature (Mayra-wound Skin No Abnormality Appearance) (Pt Warm) -Tenderness on Palpation (Mayra-wound No Skin Appearance) -Ulcer Cleansing Rinsed/ Irrigated with Saline -Foul Odor after Cleansing No -Anesthetic Used 5% Lidocaine Gel 5. R scapula -Combined with other wound No -Current Size (cm) - Length 0.1 -Current Size (cm) - Width 0.1 -Current Size (cm) - Depth 0.1 -Total Square Cm 0.01 -Epithelialization Large 67-100% -Tunneling No -Undermining/Tunneling No -Circular Undermining No -Texture (Mayra-wound Skin Appearance) Assessed, Scarring -Moisture (Mayra-wound Skin Appearance Assessed ) -Color (Mayra-wound Skin Appearance) Assessed -Temperature (Mayra-wound Skin No Abnormality Appearance) (Pt Warm) -Tenderness on Palpation (Mayra-wound No Skin Appearance) -Ulcer Cleansing Rinsed/ Irrigated with Saline -Foul Odor after Cleansing No -Anesthetic Used 5% Lidocaine Gel WC - Nurse 2 - General Ulcer CM Notes Start: 12/02/19 09:45 Freq: Status: Active Protocol: Activity Type Activity Date Activity User E-Sign Co-Sign Detail Recorded Client Recorded Date Recorded By Document 12/02/19 10:35 PL [id number] 12/02/19 10:39 PL 12/02/19 10:35 Wound Center Nurse 2 [Procedure/Treatment] #7 R Lower Side -Time 09:29 -Correct Patient Yes -Correct Side, Site, Position Yes -Correct Procedure Yes -Procedure Performed Yes -Type of Procedure Debridement -Clinical Debridement Subcutaneous -Tissue Removed Subcutaneous -Post Debridement (cm) - Length 23.5 -Post Debridement (cm) - Width 5.3 -Post Debridement (cm) - Depth 0.5 -Total Square (Post) (cm) 124.55 -Area of Debridement (cm) - Length 2.5 -Area of Debridement (cm) - Width 5.3 -Total Square (Area) (cm) 13.25 -Tunneling No -Undermining/Tunneling No -Wound/Ulcer Outcome Not Healed -Ulcer Cleansing Rinsed/ Irrigated with Saline -Foul Odor after Cleansing No -Bioengineered Tissue No -Type of Bioengineered Tissue Epifix Mesh -Bleeding Controlled with Pressure -Treatment Response Procedure Tolerated Well -Debridement - Subq, 1st 20sq cm Yes -Debridement, SubQ, ea addt'l 20sq cm 1 or part thereof -Epifix Mesh (per sq cm) 11 6. L lumbar back -Time 09:30 -Correct Patient Yes -Correct Side, Site, Position Yes -Correct Procedure Yes -Procedure Performed Yes -Type of Procedure Debridement -Clinical Debridement Subcutaneous -Tissue Removed Subcutaneous -Post Debridement (cm) - Length 6.2 -Post Debridement (cm) - Width 3.5 -Post Debridement (cm) - Depth 0.5 -Total Square (Post) (cm) 21.70 -Area of Debridement (cm) - Length 6.2 -Area of Debridement (cm) - Width 3.5 -Total Square (Area) (cm) 21.70 -Wound/Ulcer Outcome Not Healed -Bioengineered Tissue Yes -Type of Bioengineered Tissue Epifix Mesh -Expiration Date 08/15/24 -Product Lot Number [id number] -Percent Used 100 -Saline Lot Number [id number] -Bleeding Controlled with Pressure -Offloading No -Debridement - Subq, 1st 20sq cm Yes -Debridement, SubQ, ea addt'l 20sq cm 2 or part thereof -Apply Skin Sub/25 sq cm - Legs 1 Query Text:Total wound surface area up to 100 sq cm (4). -Epifix Mesh (per sq cm) 9 [See Physician Procedure note for Specifics] Pain Scale: 0-10 Numeric [Pain] -Is Patient Pain Free? Yes Debridement Note Post-Debridement Measurements/Treatment WC - Nurse 2 - General Ulcer CM Notes Start: 12/02/19 09:45 Freq: Status: Active Protocol: Activity Type Activity Date Activity User E-Sign Co-Sign Detail Recorded Client Recorded Date Recorded By Document 12/02/19 10:35 PL [id number] 12/02/19 10:39 PL 12/02/19 10:35 Wound Center Nurse 2 #7 R Lower Side -Time 09:29 -Correct Patient Yes -Correct Side, Site, Position Yes -Correct Procedure Yes -Procedure Performed Yes -Type of Procedure Debridement -Clinical Debridement Subcutaneous -Tissue Removed Subcutaneous -Post Debridement (cm) - Length 23.5 -Post Debridement (cm) - Width 5.3 -Post Debridement (cm) - Depth 0.5 -Total Square (Post) (cm) 124.55 -Area of Debridement (cm) - Length 23.5 -Area of Debridement (cm) - Width 5.3 -Total Square (Area) (cm) 124.55 -Tunneling No -Undermining/Tunneling No -Wound/Ulcer Outcome Not Healed -Ulcer Cleansing Rinsed/ Irrigated with Saline -Foul Odor after Cleansing No -Bioengineered Tissue No -Type of Bioengineered Tissue Epifix Mesh -Bleeding Controlled with Pressure -Treatment Response Procedure Tolerated Well -Debridement - Subq, 1st 20sq cm Yes -Debridement, SubQ, ea addt'l 20sq cm 1 or part thereof -Epifix Mesh (per sq cm) 11 6. L lumbar back -Time 09:30 -Correct Patient Yes -Correct Side, Site, Position Yes -Correct Procedure Yes -Procedure Performed Yes -Type of Procedure Debridement -Clinical Debridement Subcutaneous -Tissue Removed Subcutaneous -Post Debridement (cm) - Length 6.2 -Post Debridement (cm) - Width 3.5 -Post Debridement (cm) - Depth 0.5 -Total Square (Post) (cm) 21.70 -Area of Debridement (cm) - Length 6.2 -Area of Debridement (cm) - Width 3.5 -Total Square (Area) (cm) 21.70 -Wound/Ulcer Outcome Not Healed -Bioengineered Tissue Yes -Type of Bioengineered Tissue Epifix Mesh -Expiration Date 08/15/24 -Product Lot Number [id number] -Percent Used 100 -Saline Lot Number [id number] -Bleeding Controlled with Pressure -Offloading No -Debridement - Subq, 1st 20sq cm Yes -Debridement, SubQ, ea addt'l 20sq cm 2 or part thereof -Apply Skin Sub/25 sq cm - Legs 1 Query Text:Total wound surface area up to 100 sq cm (4). -Epifix Mesh (per sq cm) 9 Pain Scale: 0-10 Numeric Is Patient Pain Free? Yes Wound debrided: #5 Right lateral middle back. Laterality: Right Wound Grade/Stage: 2. No debridement was completed today - The ulcer has healed. - Additional Wound Wound debrided: #6 Left lateral middle back. Laterality: Left Wound Grade/Stage: 2. Type of Debridement: Excisional debridement Anesthesia Used: 4% Lidocaine Solution Depth: Down to and including healthy tissue, in the subcutaneous layer Percentage of wound debrided: 100 Instrument Used: 5mm curette Tissue Removed: subcutaneous tissue. Severity: Fat Layer Exposed Amount of bleeding with debridement: Mild Bleeding Controlled with: Pressure Patient tolerated procedure: Patient tolerated procedure well - EpiFix #7 was applied today. Expiration - 08/15/24. Product Lot Number - [id number]. Percent used - 100%. Saline Lot Number - [id number]. - Additional Wound Wound debrided: #7 Right flank. Laterality: Right Wound Grade/Stage: 2. Type of Debridement: Excisional debridement Anesthesia Used: 4% Lidocaine Solution Depth: Down to and including healthy tissue, in the subcutaneous layer Percentage of wound debrided: 100 Instrument Used: 5mm curette Tissue Removed: subcutaneous tissue. Severity: Fat Layer Exposed Amount of bleeding with debridement: Mild Bleeding Controlled with: Pressure Patient tolerated procedure: Patient tolerated procedure well Assessment/Plan Assessment: 1. Diabetic ulcer right lateral middle back, healed. 2. Nonhealing diabetic ulcer left lateral middle back. 3. Nonhealing diabetic ulcer right posterior flank. 4. Diabetes mellitus. 5. s/p surgical preparation right lateral middle back with incision and drainage and excisional debridement nonhealing infected diabetic ulcer (66 cm2) and surgical preparation left lateral middle back with incision and drainage and excisional debridement nonhealing infected diabetic ulcer (137.75 cm2). Plan: Applied Epifix #7 (Placental connective tissue graft) today to left lateral middle back ulcer. The right lateral middle back ulcer has healed. Continue Silver dressing changes daily to the right flank. Wound culture from 11/04/19 from the right flank was positive for Staphylococcus epidermidis and Corynebacterium amycolatum. He was placed on Levaquin and Augmentin and has finished them. Labs from 07/22/19- Prealbumin 18.7 and HgA1c 5.9. Encourage nutritional supplementation with protein to help the healing process. Since the right flank ulcer has persistent pain and has reached a plateau in the healing process, will proceed with operative debridement and complex secondary wound closure after the Epifix grafts have been placed. Because of positioning on the operating table, he would like to wait until the EpiFix applications are completed and then proceed with surgery to close the right flank ulcer. Tentatively will schedule end of December or early January. Followup one week. [id number]: [id number] Pooja subq tissue 20 sq cm/< - ICD-10 - L98.492, L03.312, E11.9, T86.829 Right flank ulcer [id number]-[id number]: [id number] Skin sub graft trnk/arm/leg - ICD-10 - L98.492, L03.312, E11.9, T86.829 Left lateral middle back ulcer
[2019-12-09 09:21] VITALS: BP 119/70; PULSE 70; RESP 16; TEMP 36.3; BMI 28.2
--- NOTE | 2019-12-09 11:55 | PN.PCM_ITS ---
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 Comment: Nonhealing ulcers right lateral middle back and left lateral middle back (2) Dehiscence of external surgical wound Status: Chronic Current Visit: Yes Qualifiers: Code(s): T81.31XA - Disruption of external operation (surgical) wound, not elsewhere classified, initial encounter (3) Type 2 diabetes mellitus Status: Chronic Current Visit: Yes Qualifiers: Code(s): E11.9 - Type 2 diabetes mellitus without complications Type of Wound Date of Service: 12/09/19 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: Nonhealing diabetic ulcers left lateral middle back and right lateral middle back and nonhealing diabetic ulcer right flank. History of Wound: Surgery 07/23/19 - 1. Surgical preparation right lateral middle back with incision and drainage and excisional debridement nonhealing infected diabetic ulcer (66 cm2). 2. Surgical preparation left lateral middle back with incision and drainage and excisional debridement nonhealing infected diabetic ulcer (137.75 cm2). Wound care - Epifix #7 on left middle lateral back ulcers. Daily silver dressing changes to right flank ulcer. He has persistent pain in the right flank ulcer and a wound culture was obtained on 09/23/19 and it showed Staphylococcus aureus. He was started on Doxycycline and has finished them. Repeat wound culture on 11/04/19 showed Staphylococcus epidermidis and Corynebacterium amycolatum. He was placed on Levaquin and Augmentin and has finished them. Operative cultures from 07/23/19 were positive for resistant Staphylococcus epidermidis (MRSE). He was started on IV Vancomycin since he had been on Doxycyline, Cleocin, and Zyvox in the past for the persistent Staph infections. He developed compromise to the healing skin grafts that necessitated HBO Treatments which he tolerated. Prealbumin from 07/22/19 was 18. 7. Encourage nutritonal supplementation with protein to help the healing process. His HgbA1c from 07/22/19 was 5.9. Today he denies fever. His appetite is good. Progress of Wound: The left lateral middle back ulcer has improved and the right lateral middle back ulcer remains healed and the right flank ulcer has persistent pain. - Physical Exam Vital Signs Temp Pulse Resp BP Pulse Ox 97.4 F L 70 16 119/70 97 12/09/19 09:21 12/09/19 09:21 12/09/19 09:21 12/09/19 09:21 11/16/19 00:22 General: Alert, Oriented x3, Cooperative HEENT: Atraumatic Oral: Moist Mucosa Lungs: Normal air movement Cardiovascular: Regular rate Extremities: Capillary Refill Less than 3 Seconds Skin: Ulcer/ Wound - Left lateral middle back ulcer is beefy pink and showing granulation. Right lateral middle back ulcer remains healed. Right flank ulcer remains very beefy red and extremely sensitive to light touch. Wound Measurements and Assessment WC - Nurse 1 - General Ulcer Measurement Start: 11/18/19 08:56 Freq: Status: Active Protocol: Activity Type Activity Date Activity User E-Sign Co-Sign Detail Recorded Client Recorded Date Recorded By Document 12/09/19 09:21 [facility] [id number] 12/09/19 09:30 [facility] 12/09/19 09:21 Wound Center Nurse 1 [Ulcer Assessment] #7 R Lower Side -Combined with other wound No -Current Size (cm) - Length 2.8 -Current Size (cm) - Width 4.8 -Current Size (cm) - Depth 0.5 -Total Square Cm 13.44 -Photo Taken No -Epithelialization None Present -Tunneling No -Undermining/Tunneling No -Circular Undermining No -Exudate Amt Small -Exudate Type Serosanguineous -Wound Margin Thickened -Granulation Amt Medium (34-66%) -Granulation Quality Red -Slough/Fibrin Yes -Necrosis Amt Medium (34-66%) -Necrotic Tissue Type Adherent Slough -Texture (Mayra-wound Skin Appearance) Assessed, Scarring -Moisture (Mayra-wound Skin Appearance Assessed ) -Color (Mayra-wound Skin Appearance) Assessed -Temperature (Mayra-wound Skin No Abnormality Appearance) (Pt Warm) -Tenderness on Palpation (Mayra-wound Yes Skin Appearance) -Ulcer Cleansing soapy water -Foul Odor after Cleansing No -Anesthetic Used 5% Lidocaine Gel 6. L lumbar back -Combined with other wound No -Current Size (cm) - Length 3.7 -Current Size (cm) - Width 5.3 -Current Size (cm) - Depth 0.4 -Total Square Cm 19.61 -Photo Taken No -Epithelialization Small 1-33% -Tunneling No -Undermining/Tunneling No -Circular Undermining No -Exudate Amt Small -Exudate Type Serosanguineous -Wound Margin Flat & Intact -Granulation Amt Medium (34-66%) -Granulation Quality Red -Slough/Fibrin Yes -Necrosis Amt Medium (34-66%) -Necrotic Tissue Type Adherent Slough -Texture (Mayra-wound Skin Appearance) Assessed, Scarring -Moisture (Mayra-wound Skin Appearance Assessed,Dry/ ) Scaly -Color (Mayra-wound Skin Appearance) Assessed -Temperature (Mayra-wound Skin No Abnormality Appearance) (Pt Warm) -Tenderness on Palpation (Mayra-wound No Skin Appearance) -Ulcer Cleansing soapy water -Foul Odor after Cleansing No -Anesthetic Used 5% Lidocaine Gel WC - Nurse 2 - General Ulcer CM Notes Start: 12/02/19 09:45 Freq: Status: Active Protocol: Activity Type Activity Date Activity User E-Sign Co-Sign Detail Recorded Client Recorded Date Recorded By Document 12/09/19 09:54 [id number] 12/09/19 10:08 12/09/19 09:54 Wound Center Nurse 2 [Procedure/Treatment] #7 R Lower Side -Time 09:54 -Correct Patient Yes -Correct Side, Site, Position Yes -Correct Procedure Yes -Procedure Performed Yes -Type of Procedure Debridement -Clinical Debridement Subcutaneous -Tissue Removed Subcutaneous -Post Debridement (cm) - Length 2.4 -Post Debridement (cm) - Width 5.8 -Post Debridement (cm) - Depth 0.3 -Total Square (Post) (cm) 13.92 -Area of Debridement (cm) - Length 2.4 -Area of Debridement (cm) - Width 5.8 -Total Square (Area) (cm) 13.92 -Tunneling No -Undermining/Tunneling No -Circular Undermining No -Wound/Ulcer Outcome Not Healed -Ulcer Cleansing Rinsed/ Irrigated with Saline -Foul Odor after Cleansing No -Bioengineered Tissue No -Bleeding Controlled with Pressure -Offloading No -Treatment Response Procedure Tolerated Well -Debridement - Subq, 1st 20sq cm Yes 6. L lumbar back -Time 09:55 -Correct Patient Yes -Correct Side, Site, Position Yes -Correct Procedure Yes -Procedure Performed Yes -Type of Procedure Debridement -Clinical Debridement Subcutaneous -Tissue Removed Subcutaneous -Post Debridement (cm) - Length 5.8 -Post Debridement (cm) - Width 3.2 -Post Debridement (cm) - Depth 0.5 -Total Square (Post) (cm) 18.56 -Area of Debridement (cm) - Length 5.8 -Area of Debridement (cm) - Width 3.2 -Total Square (Area) (cm) 18.56 -Tunneling No -Undermining/Tunneling No -Circular Undermining No -Wound/Ulcer Outcome Not Healed -Ulcer Cleansing Rinsed/ Irrigated with Saline -Foul Odor after Cleansing No -Bioengineered Tissue Yes -Type of Bioengineered Tissue Epifix -Expiration Date 07/16/24 -Product Lot Number [id number] -Percent Used 100 -Saline Lot Number [id number] -Bleeding Controlled with Pressure -Offloading No -Treatment Response Procedure Tolerated Well -Debridement - Subq, 1st 20sq cm Yes -Apply Skin Sub - 1st 25 sq cm - Legs 1 -Epifix (per sq cm) 4 [See Physician Procedure note for Specifics] Pain Scale: 0-10 Numeric [Pain] -Is Patient Pain Free? Yes - Nurse 3 - General Ulcer D/C NN Start: 12/02/19 23:14 Freq: Status: Active Protocol: Activity Type Activity Date Activity User E-Sign Co-Sign Detail Recorded Client Recorded Date Recorded By Document 12/09/19 10:15 DL [id number] 12/09/19 10:19 DL 12/09/19 10:15 Wound Care Nurse 3 [Wound Dressing] #7 R Lower Side -Ulcer Cleansing Rinsed/ Irrigated with Saline -Foul Odor after Cleansing No -Primary Dressing Applied Aquacel AG 4x4 -Primary Dressing Covered/Secured Dry Gauze, with Secured with Tape -Aquacel AG 4x4 1 6. L lumbar back -Ulcer Cleansing Rinsed/ Irrigated with Saline -Foul Odor after Cleansing No -Other Dressing epifix/steri strips/ veil -Primary Dressing Covered/Secured Dry Gauze, with Secured with Tape [Post Procedure Tolerated] -Treatment Response Procedure Tolerated Well Pain Scale: 0-10 Numeric [Pain] -Is Patient Pain Free? Yes - Visit Discharge [Visit Discharge Information] -Discharge Condition Stable -Ambulatory Status Ambulatory -Transportation Private Auto -Notes: dressing applied odilia Richter RN Musculoskeletal: No Tenderness to Palpation of Joints or Extremities Neurological: Cranial nerves II-XII grossly intact Psych/Mental Status: Normal Affect, Appropriate Debridement Note Post-Debridement Measurements/Treatment WC - Nurse 2 - General Ulcer CM Notes Start: 12/02/19 09:45 Freq: Status: Active Protocol: Activity Type Activity Date Activity User E-Sign Co-Sign Detail Recorded Client Recorded Date Recorded By Document 12/02/19 10:35 PL [id number] 12/02/19 10:39 PL Document 12/09/19 09:54 [id number] 12/09/19 10:08 JF 12/02/19 12/09/19 10:35 09:54 Wound Center Nurse 2 #7 R Lower Side -Time 09:29 09:54 -Correct Patient Yes Yes -Correct Side, Site, Position Yes Yes -Correct Procedure Yes Yes -Procedure Performed Yes Yes -Type of Procedure Debridement Debridement -Clinical Debridement Subcutaneous Subcutaneous -Tissue Removed Subcutaneous Subcutaneous -Post Debridement (cm) - Length 2.5 2.4 -Post Debridement (cm) - Width 5.3 5.8 -Post Debridement (cm) - Depth 0.5 0.3 -Total Square (Post) (cm) 13.25 13.92 -Area of Debridement (cm) - Length 2.5 2.4 -Area of Debridement (cm) - Width 5.3 5.8 -Total Square (Area) (cm) 13.25 13.92 -Tunneling No No -Undermining/Tunneling No No -Circular Undermining No -Wound/Ulcer Outcome Not Healed Not Healed -Ulcer Cleansing Rinsed/ Rinsed/ Irrigated with Irrigated with Saline Saline -Foul Odor after Cleansing No No -Bioengineered Tissue No No -Bleeding Controlled with Pressure Pressure -Offloading No -Treatment Response Procedure Procedure Tolerated Well Tolerated Well -Debridement - Subq, 1st 20sq cm Yes Yes 6. L lumbar back -Time 09:30 09:55 -Correct Patient Yes Yes -Correct Side, Site, Position Yes Yes -Correct Procedure Yes Yes -Procedure Performed Yes Yes -Type of Procedure Debridement Debridement -Clinical Debridement Subcutaneous Subcutaneous -Tissue Removed Subcutaneous Subcutaneous -Post Debridement (cm) - Length 6.2 5.8 -Post Debridement (cm) - Width 3.5 3.2 -Post Debridement (cm) - Depth 0.5 0.5 -Total Square (Post) (cm) 21.70 18.56 -Area of Debridement (cm) - Length 6.2 5.8 -Area of Debridement (cm) - Width 3.5 3.2 -Total Square (Area) (cm) 21.70 18.56 -Tunneling No -Undermining/Tunneling No -Circular Undermining No -Wound/Ulcer Outcome Not Healed Not Healed -Ulcer Cleansing Rinsed/ Irrigated with Saline -Foul Odor after Cleansing No -Bioengineered Tissue Yes Yes -Type of Bioengineered Tissue Epifix Mesh Epifix -Expiration Date 08/15/24 07/16/24 -Product Lot Number [id number] -Percent Used 100 100 -Saline Lot Number [id number] -Bleeding Controlled with Pressure Pressure -Offloading No No -Treatment Response Procedure Tolerated Well -Debridement - Subq, 1st 20sq cm No Yes -Debridement, SubQ, ea addt'l 20sq cm 2 or part thereof -Apply Skin Sub - 1st 25 sq cm - Legs 1 -Apply Skin Sub - each addt'l 25 sq cm 1 - Legs -Epifix (per sq cm) 4 -Epifix Mesh (per sq cm) 11 Pain Scale: 0-10 Numeric Is Patient Pain Free? Yes Yes - Nurse 3 - General Ulcer D/C NN Start: 12/02/19 23:14 Freq: Status: Active Protocol: Activity Type Activity Date Activity User E-Sign Co-Sign Detail Recorded Client Recorded Date Recorded By Document 12/09/19 10:15 DL [id number] 12/09/19 10:19 DL 12/09/19 10:15 Wound Care Nurse 3 #7 R Lower Side -Ulcer Cleansing Rinsed/ Irrigated with Saline -Foul Odor after Cleansing No -Primary Dressing Applied Aquacel AG 4x4 -Primary Dressing Covered/Secured with Dry Gauze, Secured with Tape -Aquacel AG 4x4 1 6. L lumbar back -Ulcer Cleansing Rinsed/ Irrigated with Saline -Foul Odor after Cleansing No -Other Dressing epifix/steri strips/ veil -Primary Dressing Covered/Secured with Dry Gauze, Secured with Tape Treatment Response Procedure Tolerated Well Pain Scale: 0-10 Numeric Is Patient Pain Free? Yes - Visit Discharge Discharge Condition Stable Ambulatory Status Ambulatory Transportation Private Auto Notes: dressing applied odilia Richter RN Wound debrided: middle lateral back ulcer Laterality: Left Type of Debridement: Excisional debridement Anesthesia Used: 5% Lidocaine Gel Depth: Down to and including healthy tissue, in the subcutaneous layer Percentage of wound debrided: 100 Instrument Used: 5mm curette Tissue Removed: Subcutaneous tissue and slough Severity: Limited To Skin Breakdown Amount of bleeding with debridement: Mild Bleeding Controlled with: Pressure Patient tolerated procedure well - Additional Wound Wound debrided: Flank ulcer Laterality: Right Type of Debridement: Excisional debridement Anesthesia Used: 5% Lidocaine Gel Depth: Down to and including healthy tissue, in the subcutaneous layer Percentage of wound debrided: 100 Instrument Used: 5mm curette Tissue Removed: Subcutaneous tissue and slough Severity: Fat Layer Exposed Amount of bleeding with debridement: Mild Bleeding Controlled with: Pressure, Compression and gauze Patient tolerated procedure: Patient tolerated procedure well Assessment/Plan Active Problems (Last Reviewed 12/03/19 @ 08:[address] 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 Diabetic ulcer right lateral middle back, healed. 2. Nonhealing diabetic ulcer left lateral middle back. 3. Nonhealing diabetic ulcer right posterior flank. 4. Diabetes mellitus. 5. s/p surgical preparation right lateral middle back with incision and drainage and excisional debridement nonhealing infected diabetic ulcer (66 cm2) and surgical preparation left lateral middle back with incision and drainage and excisional debridement nonhealing infected diabetic ulcer (137.75 cm2). Plan: Applied Epifix #8 (Placental connective tissue graft) today to left lateral middle back ulcer. The right lateral middle back ulcer has healed. Continue Silver dressing changes daily to the right flank. Wound culture from 11/04/19 from the right flank was positive for Staphylococcus epidermidis and Corynebacterium amycolatum. He was placed on Levaquin and Augmentin and has finished them. Labs from 07/22/19- Prealbumin 18.7 and HgA1c 5.9. Encourage nutritional supplementation with protein to help the healing process. Since the right flank ulcer has persistent pain and has reached a plateau in the healing process, will proceed with operative debridement and complex secondary wound closure after the Epifix grafts have been placed. Because of positioning on the operating table, he would like to wait until the EpiFix applications are completed and then proceed with surgery to close the right flank ulcer. Tentatively will schedule end of December or early January. Followup one week. [id number]: [id number] Pooja subq tissue 20 sq cm/< - right flank ulcer [id number]: [id number] Skin sub graft trnk/arm/leg - left middle lateral back ulcer had epifix applied
[2019-12-16 11:52] VITALS: BP 116/61; PULSE 74; RESP 16; TEMP 36.7; BMI 28.2
--- NOTE | 2019-12-16 15:33 | PCM.WC.PN ---
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 History of Wound: Surgery 07/23/19 - 1. Surgical preparation right lateral middle back with incision and drainage and excisional debridement nonhealing infected diabetic ulcer (66 cm2). 2. Surgical preparation left lateral middle back with incision and drainage and excisional debridement nonhealing infected diabetic ulcer (137.75 cm2). Wound care - Epifix #8 on left middle lateral back ulcer last week. Will do a break from the Epifix and do daily Collagen hydrogel with adaptic to the left middle lateral back ulcer. Daily silver dressing changes to right flank ulcer. He has persistent pain in the right flank ulcer and a wound culture was obtained on 09/23/19 and it showed Staphylococcus aureus. He was started on Doxycycline and has finished them. Repeat wound culture on 11/04/19 showed Staphylococcus epidermidis and Corynebacterium amycolatum. He was placed on Levaquin and Augmentin and has finished them. Operative cultures from 07/23/19 were positive for resistant Staphylococcus epidermidis (MRSE). He was started on IV Vancomycin since he had been on Doxycyline, Cleocin, and Zyvox in the past for the persistent Staph infections. He developed compromise to the healing skin grafts that necessitated HBO Treatments which he tolerated. Prealbumin from 07/22/19 was 18.7. Encourage nutritonal supplementation with protein to help the healing process. His HgbA1c from 07/22/19 was 5.9. Today he denies fever. His appetite is good. Progress of Wound: The left lateral middle back ulcer is stable and the right lateral middle back ulcer remains healed and the right flank ulcer has persistent pain. - Physical Exam Vital Signs Temp Pulse Resp BP Pulse Ox 98.1 F 74 16 116/61 97 12/16/19 11:52 12/16/19 11:52 12/16/19 11:52 12/16/19 11:52 11/16/19 00:22 General: Alert, Oriented x3, Cooperative HEENT: Atraumatic Oral: Moist Mucosa Lungs: Normal air movement Cardiovascular: Regular rate Extremities: Capillary Refill Less than 3 Seconds Skin: Ulcer/ Wound - Left lateral middle back ulcer with granulation tissue present. [place] in the center and bleeds easily with debridement. Right middle lateral back ulcer remains healed. Right flank ulcer remains pink and extremely sensitive to light touch, bleeds easily. Wound Measurements and Assessment WC - Nurse 1 - General Ulcer Measurement Start: 11/18/19 08:56 Freq: Status: Active Protocol: Activity Type Activity Date Activity User E-Sign Co-Sign Detail Recorded Client Recorded Date Recorded By Document 12/16/19 11:52 [facility] [id number] 12/16/19 12:02 [facility] 12/16/19 11:52 Wound Center Nurse 1 [Ulcer Assessment] #7 R Lower Side -Combined with other wound No -Current Size (cm) - Length 2.5 -Current Size (cm) - Width 5.3 -Current Size (cm) - Depth 0.3 -Total Square Cm 13.25 -Photo Taken No -Epithelialization None Present -Tunneling No -Undermining/Tunneling No -Circular Undermining No -Exudate Amt Small -Exudate Type Serosanguineous -Wound Margin Distinct, Outline Attached -Granulation Amt Large (67-100%) -Granulation Quality Red -Slough/Fibrin Yes -Necrosis Amt Small (1-33%) -Necrotic Tissue Type Adherent Slough -Texture (Mayra-wound Skin Appearance) Assessed, Scarring -Moisture (Mayra-wound Skin Appearance Assessed ) -Color (Mayra-wound Skin Appearance) Assessed, Erythema -Temperature (Mayra-wound Skin No Abnormality Appearance) (Pt Warm) -Tenderness on Palpation (Mayra-wound Yes Skin Appearance) -Ulcer Cleansing soapy water -Foul Odor after Cleansing No -Anesthetic Used 5% Lidocaine Gel 6. L lumbar back -Combined with other wound No -Current Size (cm) - Length 0.7 -Current Size (cm) - Width 0.6 -Current Size (cm) - Depth 0.3 -Total Square Cm 0.42 -Photo Taken No -Epithelialization Small 1-33% -Tunneling Yes -Tunneling Position (O'clock) 4 -Tunneling Distance (cm) 0.3 -Undermining/Tunneling No -Circular Undermining No -Exudate Amt Small -Exudate Type Serosanguineous -Wound Margin Flat & Intact -Granulation Amt Large (67-100%) -Granulation Quality Red -Slough/Fibrin Yes -Necrosis Amt Small (1-33%) -Necrotic Tissue Type Adherent Slough -Texture (Mayra-wound Skin Appearance) Assessed, Scarring -Moisture (Mayra-wound Skin Appearance Assessed,Dry/ ) Scaly -Color (Mayra-wound Skin Appearance) Assessed -Temperature (Mayra-wound Skin No Abnormality Appearance) (Pt Warm) -Tenderness on Palpation (Mayra-wound No Skin Appearance) -Ulcer Cleansing soapy water -Foul Odor after Cleansing No -Anesthetic Used 5% Lidocaine Gel WC - Nurse 2 - General Ulcer CM Notes Start: 12/02/19 09:45 Freq: Status: Active Protocol: Activity Type Activity Date Activity User E-Sign Co-Sign Detail Recorded Client Recorded Date Recorded By Document 12/16/19 12:08 [facility] [id number] 12/16/19 12:18 [facility] 12/16/19 12:08 Wound Center Nurse 2 [Procedure/Treatment] #7 R Lower Side -Time 12:10 -Correct Patient Yes -Correct Side, Site, Position Yes -Correct Procedure Yes -Procedure Performed Yes -Type of Procedure Debridement -Clinical Debridement Subcutaneous -Tissue Removed Subcutaneous -Post Debridement (cm) - Length 2.5 -Post Debridement (cm) - Width 6.2 -Post Debridement (cm) - Depth 0.3 -Total Square (Post) (cm) 15.50 -Area of Debridement (cm) - Length 2.5 -Area of Debridement (cm) - Width 6.2 -Total Square (Area) (cm) 15.50 -Tunneling No -Undermining/Tunneling No -Circular Undermining No -Wound/Ulcer Outcome Not Healed -Ulcer Cleansing Rinsed/ Irrigated with Saline -Foul Odor after Cleansing No -Bioengineered Tissue No -Bleeding Controlled with Pressure -Offloading No -Treatment Response Procedure Tolerated Well -Debridement - Subq, 1st 20sq cm No 6. L lumbar back -Time 12:09 -Correct Patient Yes -Correct Side, Site, Position Yes -Correct Procedure Yes -Procedure Performed Yes -Type of Procedure Debridement -Clinical Debridement Subcutaneous -Tissue Removed Subcutaneous -Post Debridement (cm) - Length 8.3 -Post Debridement (cm) - Width 3.0 -Post Debridement (cm) - Depth 0.4 -Total Square (Post) (cm) 24.90 -Area of Debridement (cm) - Length 8.3 -Area of Debridement (cm) - Width 3.0 -Total Square (Area) (cm) 24.90 -Tunneling No -Undermining/Tunneling No -Circular Undermining No -Wound/Ulcer Outcome Not Healed -Ulcer Cleansing Rinsed/ Irrigated with Saline -Foul Odor after Cleansing No -Bioengineered Tissue No -Bleeding Controlled with Pressure -Offloading No -Treatment Response Procedure Tolerated Well -Debridement - Subq, 1st 20sq cm Yes -Debridement, SubQ, ea addt'l 20sq cm 2 or part thereof [See Physician Procedure note for Specifics] Pain Scale: 0-10 Numeric [Pain] -Is Patient Pain Free? Yes - Nurse 3 - General Ulcer D/C NN Start: 12/02/19 23:14 Freq: Status: Active Protocol: Activity Type Activity Date Activity User E-Sign Co-Sign Detail Recorded Client Recorded Date Recorded By Document 12/16/19 12:31 [facility] [id number] 12/16/19 12:32 [facility] 12/16/19 12:31 Wound Care Nurse 3 [Wound Dressing] #7 R Lower Side -Ulcer Cleansing Rinsed/ Irrigated with Saline -Foul Odor after Cleansing No -Primary Dressing Applied Aquacel AG 4x4 -Primary Dressing Covered/Secured Dry Gauze, with Secured with Tape -Aquacel AG 4x4 1 6. L lumbar back -Ulcer Cleansing Rinsed/ Irrigated with Saline -Foul Odor after Cleansing No -Primary Dressing Applied C Hydrogel ($) -Primary Dressing Covered/Secured Dry Gauze, with Secured with Tape Pain Scale: 0-10 Numeric [Pain] -Is Patient Pain Free? Yes - Visit Discharge [Visit Discharge Information] -Discharge Condition Stable -Ambulatory Status Ambulatory -Transportation Private Auto -Accompanied by -Medication Reconcilliation completed Yes & provided to patient/care provider -Clinical Summary of Care Provided Yes Musculoskeletal: No Tenderness to Palpation of Joints or Extremities Neurological: Cranial nerves II-XII grossly intact Psych/Mental Status: Normal Affect, Appropriate Debridement Note Post-Debridement Measurements/Treatment WC - Nurse 2 - General Ulcer CM Notes Start: 12/02/19 09:45 Freq: Status: Active Protocol: Activity Type Activity Date Activity User E-Sign Co-Sign Detail Recorded Client Recorded Date Recorded By Document 12/02/19 10:35 PL [id number] 12/02/19 10:39 PL Document 12/09/19 09:54 [id number] 12/09/19 10:08 JF Document 12/16/19 12:08 [id number] 12/16/19 12:18 12/02/19 12/09/19 12/16/19 10:35 09:54 12:08 Wound Center Nurse 2 #7 R Lower Side -Time 09:29 09:54 12:10 -Correct Patient Yes Yes Yes -Correct Side, Site, Position Yes Yes Yes -Correct Procedure Yes Yes Yes -Procedure Performed Yes Yes Yes -Type of Procedure Debridement Debridement Debridement -Clinical Debridement Subcutaneous Subcutaneous Subcutaneous -Tissue Removed Subcutaneous Subcutaneous Subcutaneous -Post Debridement (cm) - Length 2.5 2.4 2.5 -Post Debridement (cm) - Width 5.3 5.8 6.2 -Post Debridement (cm) - Depth 0.5 0.3 0.3 -Total Square (Post) (cm) 13.25 13.92 15.50 -Area of Debridement (cm) - Length 2.5 2.4 2.5 -Area of Debridement (cm) - Width 5.3 5.8 6.2 -Total Square (Area) (cm) 13.25 13.92 15.50 -Tunneling No No No -Undermining/Tunneling No No No -Circular Undermining No No -Wound/Ulcer Outcome Not Healed Not Healed Not Healed -Ulcer Cleansing Rinsed/ Rinsed/ Rinsed/ Irrigated with Irrigated with Irrigated with Saline Saline Saline -Foul Odor after Cleansing No No No -Bioengineered Tissue No No No -Bleeding Controlled with Pressure Pressure Pressure -Offloading No No -Treatment Response Procedure Procedure Procedure Tolerated Well Tolerated Well Tolerated Well -Debridement - Subq, 1st 20sq cm Yes Yes No 6. L lumbar back -Time 09:30 09:55 12:09 -Correct Patient Yes Yes Yes -Correct Side, Site, Position Yes Yes Yes -Correct Procedure Yes Yes Yes -Procedure Performed Yes Yes Yes -Type of Procedure Debridement Debridement Debridement -Clinical Debridement Subcutaneous Subcutaneous Subcutaneous -Tissue Removed Subcutaneous Subcutaneous Subcutaneous -Post Debridement (cm) - Length 6.2 5.8 8.3 -Post Debridement (cm) - Width 3.5 3.2 3.0 -Post Debridement (cm) - Depth 0.5 0.5 0.4 -Total Square (Post) (cm) 21.70 18.56 24.90 -Area of Debridement (cm) - Length 6.2 5.8 8.3 -Area of Debridement (cm) - Width 3.5 3.2 3.0 -Total Square (Area) (cm) 21.70 18.56 24.90 -Tunneling No No -Undermining/Tunneling No No -Circular Undermining No No -Wound/Ulcer Outcome Not Healed Not Healed Not Healed -Ulcer Cleansing Rinsed/ Rinsed/ Irrigated with Irrigated with Saline Saline -Foul Odor after Cleansing No No -Bioengineered Tissue Yes Yes No -Type of Bioengineered Tissue Epifix Mesh Epifix -Expiration Date 08/15/24 07/16/24 -Product Lot Number [id number] -Percent Used 100 100 -Saline Lot Number [id number] -Bleeding Controlled with Pressure Pressure Pressure -Offloading No No No -Treatment Response Procedure Procedure Tolerated Well Tolerated Well -Debridement - Subq, 1st 20sq cm No No Yes -Debridement, SubQ, ea addt'l 20sq cm 2 2 or part thereof -Apply Skin Sub - 1st 25 sq cm - Legs 1 -Apply Skin Sub - each addt'l 25 sq cm 1 - Legs -Epifix (per sq cm) 4 -Epifix Mesh (per sq cm) 11 Pain Scale: 0-10 Numeric Is Patient Pain Free? Yes Yes Yes WC - Nurse 3 - General Ulcer D/C NN Start: 12/02/19 23:14 Freq: Status: Active Protocol: Activity Type Activity Date Activity User E-Sign Co-Sign Detail Recorded Client Recorded Date Recorded By Document 12/09/19 10:15 DL [id number] 12/09/19 10:19 DL Document 12/16/19 12:31 [facility] [id number] 12/16/19 12:32 12/09/19 12/16/19 10:15 12:31 Wound Care Nurse 3 #7 R Lower Side -Ulcer Cleansing Rinsed/ Rinsed/ Irrigated with Irrigated with Saline Saline -Foul Odor after Cleansing No No -Primary Dressing Applied Aquacel AG 4x4 Aquacel AG 4x4 -Primary Dressing Covered/Secured with Dry Gauze, Dry Gauze, Secured with Secured with Tape Tape -Aquacel AG 4x4 1 1 6. L lumbar back -Ulcer Cleansing Rinsed/ Rinsed/ Irrigated with Irrigated with Saline Saline -Foul Odor after Cleansing No No -Primary Dressing Applied C Hydrogel ($) -Other Dressing epifix/steri strips/ veil -Primary Dressing Covered/Secured with Dry Gauze, Dry Gauze, Secured with Secured with Tape Tape Treatment Response Procedure Tolerated Well Pain Scale: 0-10 Numeric Is Patient Pain Free? Yes Yes WC - Visit Discharge Discharge Condition Stable Stable Ambulatory Status Ambulatory Ambulatory Transportation Private Auto Private Auto Accompanied by Medication Reconcilliation completed & Yes provided to patient/care provider Clinical Summary of Care Provided Yes Notes: dressing applied odilia Richter RN Wound debrided: lateral middle back ulcer Laterality: Left Type of Debridement: Excisional debridement Anesthesia Used: 5% Lidocaine Gel Depth: Down to and including healthy tissue, in the subcutaneous layer Percentage of wound debrided: 100 Instrument Used: 5mm curette Tissue Removed: Subcutaneous tissue and slough Severity: Fat Layer Exposed Amount of bleeding with debridement: Mild Bleeding Controlled with: Pressure Patient tolerated procedure well - Additional Wound Wound debrided: Flank ulcer Laterality: Right Type of Debridement: Excisional debridement Anesthesia Used: 5% Lidocaine Gel Depth: Down to and including healthy tissue, in the subcutaneous layer Percentage of wound debrided: 100 Tissue Removed: Subcutaneous tissue and slough Severity: Fat Layer Exposed Amount of bleeding with debridement: Mild Bleeding Controlled with: Pressure Patient tolerated procedure: Patient did not tolerate procedure well Assessment/Plan Assessment: 1. Diabetic ulcer right lateral middle back, healed. 2. Nonhealing diabetic ulcer left lateral middle back. 3. Nonhealing diabetic ulcer right posterior flank. 4. Diabetes mellitus. 5. s/p surgical preparation right lateral middle back with incision and drainage and excisional debridement nonhealing infected diabetic ulcer (66 cm2) and surgical preparation left lateral middle back with incision and drainage and excisional debridement nonhealing infected diabetic ulcer (137.75 cm2). Plan: Wound care - Epifix #8 on left middle lateral back ulcer last week. Will do a break from the Epifix and do daily Collagen hydrogel with adaptic to the left middle lateral back ulcer. Daily silver dressing changes to right flank ulcer. With the holiday next week he will see another provider as a courtesy visit for his next Epifix application. Wound culture from 11/04/19 from the right flank was positive for Staphylococcus epidermidis and Corynebacterium amycolatum. He was placed on Levaquin and Augmentin and has finished them. Labs from 07/22/19- Prealbumin 18.7 and HgA1c 5.9. Encourage nutritional supplementation with protein to help the healing process. Since the right flank ulcer has persistent pain and has reached a plateau in the healing process, will proceed with operative debridement and complex secondary wound closure after the Epifix grafts have been placed. Because of positioning on the operating table, he would like to wait until the EpiFix applications are completed and then proceed with surgery to close the right flank ulcer. Tentatively will schedule end of December or early January. Followup one week. [id number]: [id number] Pooja subq tissue 20 sq cm/< Add On Codes: 18291 Pooja subq tissue add-on - x2
== END 2019-12-16 23:59 ==
LOC: WC 11:30
PROVIDERS: Family Provider Family Medicine; PCP Surgery; Referring Provider Nurse Practitioner Family; Visit Provider Nurse Practitioner Family
DX: T81.31XA Disruption of external operation (surgical) wound, not elsewhere classified, initial encounter (principal); L98.422 Non-pressure chronic ulcer of back with fat layer exposed; E11.622 Type 2 diabetes mellitus with other skin ulcer; L98.492 Non-pressure chronic ulcer of skin of other sites with fat layer exposed; L98.421 Non-pressure chronic ulcer of back limited to breakdown of skin
CPT/HCPCS: 11042; 11045; 15271; Q4186

== ENCOUNTER 2020-01-13 09:15 | Outpatient (RCR) | payer OTHER, SELFPAY ==
[2019-12-17 00:28] VITALS: BP 116/61; PULSE 74; RESP 16; TEMP 36.7; O2SAT 97
[2019-12-24 10:10] VITALS: BP 124/68; PULSE 84; RESP 16; TEMP 36.1; BMI 28.2
--- NOTE | 2019-12-24 12:36 | PCM.WC.PN ---
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 Comment: Nonhealing ulcers right lateral middle back and left lateral middle back (2) Dehiscence of external surgical wound Status: Chronic Current Visit: Yes Qualifiers: Code(s): T81.31XA - Disruption of external operation (surgical) wound, not elsewhere classified, initial encounter (3) Type 2 diabetes mellitus Status: Chronic Current Visit: Yes Qualifiers: Code(s): E11.9 - Type 2 diabetes mellitus without complications Type of Wound Date of Service: 12/24/19 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: Nonhealing diabetic ulcers left lateral middle back and right lateral middle back and nonhealing diabetic ulcer right flank. History of Wound: Surgery 07/23/19 - 1. Surgical preparation right lateral middle back with incision and drainage and excisional debridement nonhealing infected diabetic ulcer (66 cm2). 2. Surgical preparation left lateral middle back with incision and drainage and excisional debridement nonhealing infected diabetic ulcer (137.75 cm2). Wound care - Epifix #9 on left middle lateral back ulcer last week. Will do a break from the Epifix and do daily Collagen hydrogel with adaptic to the left middle lateral back ulcer. Daily silver dressing changes to right flank ulcer. He has persistent pain in the right flank ulcer and a wound culture was obtained on 09/23/19 and it showed Staphylococcus aureus. He was started on Doxycycline and has finished them. Repeat wound culture on 11/04/19 showed Staphylococcus epidermidis and Corynebacterium amycolatum. He was placed on Levaquin and Augmentin and has finished them. Operative cultures from 07/23/19 were positive for resistant Staphylococcus epidermidis (MRSE). He was started on IV Vancomycin since he had been on Doxycyline, Cleocin, and Zyvox in the past for the persistent Staph infections. He developed compromise to the healing skin grafts that necessitated HBO Treatments which he tolerated. Prealbumin from 07/22/19 was 18.7. Encourage nutritonal supplementation with protein to help the healing process. His HgbA1c from 07/22/19 was 5.9. Today he denies fever. His appetite is good. Progress of Wound: The left lateral middle back ulcer has improved and the right lateral middle back ulcer remains healed and the right flank ulcer has persistent pain. - Physical Exam Vital Signs Temp Pulse Resp BP Pulse Ox 96.9 F L 84 16 124/68 H 97 12/24/19 10:10 12/24/19 10:10 12/24/19 10:10 12/24/19 10:10 12/17/19 00:28 General: Alert, Oriented x3, Cooperative HEENT: Atraumatic Oral: Moist Mucosa Lungs: Normal air movement Cardiovascular: Regular rate Extremities: Capillary Refill Less than 3 Seconds Skin: Ulcer/ Wound - Left lateral middle back ulcer cluster with tunneling at the 2 o'clock area. Left flank is red and extremely painful to light touch. Wound Measurements and Assessment WC - Nurse 1 - General Ulcer Measurement Start: 12/24/19 10:10 Freq: Status: Active Protocol: Activity Type Activity Date Activity User E-Sign Co-Sign Detail Recorded Client Recorded Date Recorded By Document 12/24/19 10:10 [facility] [id number] 12/24/19 10:17 [facility] 12/24/19 10:10 Wound Center Nurse 1 [Ulcer Assessment] #7 R Lower Side -Combined with other wound No -Current Size (cm) - Length 3 -Current Size (cm) - Width 5.7 -Current Size (cm) - Depth 0.5 -Total Square Cm 17.1 -Photo Taken No -Epithelialization None Present -Tunneling No -Undermining/Tunneling No -Circular Undermining No -Exudate Amt Small -Exudate Type Serosanguineous -Wound Margin Thickened -Granulation Amt Large (67-100%) -Granulation Quality Red -Slough/Fibrin Yes -Necrosis Amt Small (1-33%) -Necrotic Tissue Type Adherent Slough -Texture (Mayra-wound Skin Appearance) Assessed, Scarring -Moisture (Mayra-wound Skin Appearance Assessed ) -Color (Mayra-wound Skin Appearance) Assessed, Erythema -Temperature (Mayra-wound Skin No Abnormality Appearance) (Pt Warm) -Tenderness on Palpation (Mayra-wound Yes Skin Appearance) -Ulcer Cleansing Rinsed/ Irrigated with Saline -Foul Odor after Cleansing No -Anesthetic Used 5% Lidocaine Gel 6. L lumbar back -Combined with other wound No -Current Size (cm) - Length 3.2 -Current Size (cm) - Width 6 -Current Size (cm) - Depth 0.4 -Total Square Cm 19.2 -Photo Taken No -Epithelialization Small 1-33% -Tunneling No -Undermining/Tunneling No -Circular Undermining No -Exudate Amt Small -Exudate Type Serosanguineous -Wound Margin Flat & Intact -Granulation Amt Large (67-100%) -Granulation Quality Red -Slough/Fibrin No -Necrosis Amt None Present (0 %) -Texture (Mayra-wound Skin Appearance) Assessed, Scarring -Moisture (Mayra-wound Skin Appearance Assessed ) -Color (Mayra-wound Skin Appearance) Assessed -Temperature (Mayra-wound Skin No Abnormality Appearance) (Pt Warm) -Tenderness on Palpation (Mayra-wound No Skin Appearance) -Ulcer Cleansing Rinsed/ Irrigated with Saline -Foul Odor after Cleansing No -Anesthetic Used 5% Lidocaine Gel WC - Nurse 2 - General Ulcer CM Notes Start: 12/24/19 10:10 Freq: Status: Active Protocol: Activity Type Activity Date Activity User E-Sign Co-Sign Detail Recorded Client Recorded Date Recorded By Document 12/24/19 12:26 [id number] 12/24/19 12:33 12/24/19 12:26 Wound Center Nurse 2 [Procedure/Treatment] #7 R Lower Side -Time 12:26 -Correct Patient Yes -Correct Side, Site, Position Yes -Correct Procedure Yes -Procedure Performed Yes -Type of Procedure Debridement -Clinical Debridement Subcutaneous -Tissue Removed Subcutaneous -Post Debridement (cm) - Length 3.0 -Post Debridement (cm) - Width 5.7 -Post Debridement (cm) - Depth 0.5 -Total Square (Post) (cm) 17.10 -Area of Debridement (cm) - Length 3.0 -Area of Debridement (cm) - Width 5.7 -Total Square (Area) (cm) 17.10 -Tunneling No -Undermining/Tunneling No -Circular Undermining No -Wound/Ulcer Outcome Not Healed -Ulcer Cleansing Rinsed/ Irrigated with Saline -Foul Odor after Cleansing No -Bioengineered Tissue No -Bleeding Controlled with Pressure -Offloading No -Treatment Response Procedure Tolerated Well -Debridement - Subq, 1st 20sq cm Yes 6. L lumbar back -Time 12:27 -Correct Patient Yes -Correct Side, Site, Position Yes -Correct Procedure Yes -Procedure Performed Yes -Type of Procedure Debridement -Clinical Debridement Subcutaneous -Tissue Removed Subcutaneous -Post Debridement (cm) - Length 3.2 -Post Debridement (cm) - Width 6.0 -Post Debridement (cm) - Depth 0.4 -Total Square (Post) (cm) 19.20 -Area of Debridement (cm) - Length 3.0 -Area of Debridement (cm) - Width 6.0 -Total Square (Area) (cm) 18.00 -Tunneling No -Undermining/Tunneling No -Circular Undermining No -Wound/Ulcer Outcome Not Healed -Ulcer Cleansing Rinsed/ Irrigated with Saline -Foul Odor after Cleansing No -Bioengineered Tissue Yes -Type of Bioengineered Tissue Epifix Mesh -Expiration Date 08/15/24 -Product Lot Number [id number] -Percent Used 100 -Saline Lot Number [id number] -Bleeding Controlled with Pressure -Offloading No -Debridement - Subq, 1st 20sq cm No -Apply Skin Sub - 1st 25 sq cm - Legs 1 -Epifix Mesh (per sq cm) 11 [See Physician Procedure note for Specifics] Pain Scale: 0-10 Numeric [Pain] -Is Patient Pain Free? Yes - Nurse 3 - General Ulcer D/C NN Start: 12/24/19 10:10 Freq: Status: Active Protocol: Activity Type Activity Date Activity User E-Sign Co-Sign Detail Recorded Client Recorded Date Recorded By Document 12/24/19 12:26 [id number] 12/24/19 12:33 12/24/19 12:26 -Is Patient Pain Free? Yes Wound Care Nurse 3 [Wound Dressing] #7 R Lower Side -Ulcer Cleansing Rinsed/ Irrigated with Saline -Foul Odor after Cleansing No -Primary Dressing Applied Aquacel AG 4x4 -Primary Dressing Covered/Secured Dry Gauze, with Secured with Tape -Aquacel AG 4x4 1 6. L lumbar back -Ulcer Cleansing Rinsed/ Irrigated with Saline -Foul Odor after Cleansing No -Primary Dressing Covered/Secured Dry Gauze,Other with -Other Covering abdominal pad - Visit Discharge [Visit Discharge Information] -Discharge Condition Stable -Ambulatory Status Ambulatory -Transportation Private Auto -Medication Reconcilliation completed Yes & provided to patient/care provider -Clinical Summary of Care Provided Yes Musculoskeletal: No Tenderness to Palpation of Joints or Extremities Neurological: Cranial nerves II-XII grossly intact Psych/Mental Status: Normal Affect, Appropriate Debridement Note Post-Debridement Measurements/Treatment WC - Nurse 2 - General Ulcer CM Notes Start: 12/24/19 10:10 Freq: Status: Active Protocol: Activity Type Activity Date Activity User E-Sign Co-Sign Detail Recorded Client Recorded Date Recorded By Document 12/24/19 12:26 [id number] 12/24/19 12:33 12/24/19 12:26 Wound Center Nurse 2 #7 R Lower Side -Time 12:26 -Correct Patient Yes -Correct Side, Site, Position Yes -Correct Procedure Yes -Procedure Performed Yes -Type of Procedure Debridement -Clinical Debridement Subcutaneous -Tissue Removed Subcutaneous -Post Debridement (cm) - Length 3.0 -Post Debridement (cm) - Width 5.7 -Post Debridement (cm) - Depth 0.5 -Total Square (Post) (cm) 17.10 -Area of Debridement (cm) - Length 3.0 -Area of Debridement (cm) - Width 5.7 -Total Square (Area) (cm) 17.10 -Tunneling No -Undermining/Tunneling No -Circular Undermining No -Wound/Ulcer Outcome Not Healed -Ulcer Cleansing Rinsed/ Irrigated with Saline -Foul Odor after Cleansing No -Bioengineered Tissue No -Bleeding Controlled with Pressure -Offloading No -Treatment Response Procedure Tolerated Well -Debridement - Subq, 1st 20sq cm Yes 6. L lumbar back -Time 12:27 -Correct Patient Yes -Correct Side, Site, Position Yes -Correct Procedure Yes -Procedure Performed Yes -Type of Procedure Debridement -Clinical Debridement Subcutaneous -Tissue Removed Subcutaneous -Post Debridement (cm) - Length 3.2 -Post Debridement (cm) - Width 6.0 -Post Debridement (cm) - Depth 0.4 -Total Square (Post) (cm) 19.20 -Area of Debridement (cm) - Length 3.0 -Area of Debridement (cm) - Width 6.0 -Total Square (Area) (cm) 18.00 -Tunneling No -Undermining/Tunneling No -Circular Undermining No -Wound/Ulcer Outcome Not Healed -Ulcer Cleansing Rinsed/ Irrigated with Saline -Foul Odor after Cleansing No -Bioengineered Tissue Yes -Type of Bioengineered Tissue Epifix Mesh -Expiration Date 08/15/24 -Product Lot Number [id number] -Percent Used 100 -Saline Lot Number [id number] -Bleeding Controlled with Pressure -Offloading No -Debridement - Subq, 1st 20sq cm No -Apply Skin Sub - 1st 25 sq cm - Legs 1 -Epifix Mesh (per sq cm) 11 Pain Scale: 0-10 Numeric Is Patient Pain Free? Yes WC - Nurse 3 - General Ulcer D/C NN Start: 12/24/19 10:10 Freq: Status: Active Protocol: Activity Type Activity Date Activity User E-Sign Co-Sign Detail Recorded Client Recorded Date Recorded By Document 12/24/19 12:26 [id number] 12/24/19 12:33 12/24/19 12:26 Is Patient Pain Free? Yes Wound Care Nurse 3 #7 R Lower Side -Ulcer Cleansing Rinsed/ Irrigated with Saline -Foul Odor after Cleansing No -Primary Dressing Applied Aquacel AG 4x4 -Primary Dressing Covered/Secured with Dry Gauze, Secured with Tape -Aquacel AG 4x4 1 6. L lumbar back -Ulcer Cleansing Rinsed/ Irrigated with Saline -Foul Odor after Cleansing No -Primary Dressing Covered/Secured with Dry Gauze,Other -Other Covering abdominal pad WC - Visit Discharge Discharge Condition Stable Ambulatory Status Ambulatory Transportation Private Auto Medication Reconcilliation completed & Yes provided to patient/care provider Clinical Summary of Care Provided Yes Wound debrided: lateral, middle back ulcer cluster Laterality: Left Type of Debridement: Excisional debridement Anesthesia Used: 5% Lidocaine Gel Depth: Down to and including healthy tissue, in the subcutaneous layer Percentage of wound debrided: 100 Instrument Used: 3mm curette Tissue Removed: Subcutaneous tissue and slough Severity: Fat Layer Exposed Amount of bleeding with debridement: Mild Bleeding Controlled with: Pressure Patient tolerated procedure well - Additional Wound Wound debrided: flank area Laterality: Right Type of Debridement: Excisional debridement Anesthesia Used: 5% Lidocaine Gel Depth: Down to and including healthy tissue, in the subcutaneous layer Percentage of wound debrided: 100 Instrument Used: 5mm curette Tissue Removed: Subcutaneous tissue Severity: Fat Layer Exposed Amount of bleeding with debridement: Mild Bleeding Controlled with: Pressure, Compression and gauze Patient tolerated procedure: Patient tolerated procedure well Assessment/Plan Active Problems (Last Reviewed 12/03/19 @ 08:[address] 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 Diabetic ulcer right lateral middle back, healed. 2. Nonhealing diabetic ulcer left lateral middle back. 3. Nonhealing diabetic ulcer right posterior flank. 4. Diabetes mellitus. 5. s/p surgical preparation right lateral middle back with incision and drainage and excisional debridement nonhealing infected diabetic ulcer (66 cm2) and surgical preparation left lateral middle back with incision and drainage and excisional debridement nonhealing infected diabetic ulcer (137.75 cm2). Plan: Wound care - Epifix # on left middle lateral back ulcer placed. 100% of the product was used. Daily silver dressing changes to right flank ulcer. Wound culture from 11/04/19 from the right flank was positive for Staphylococcus epidermidis and Corynebacterium amycolatum. He was placed on Levaquin and Augmentin and has finished them. Labs from 07/22/19- Prealbumin 18.7 and HgA1c 5.9. Encourage nutritional supplementation with protein to help the healing process. Since the right flank ulcer has persistent pain and has reached a plateau in the healing process, will proceed with operative debridement and complex secondary wound closure after the Epifix grafts have been placed. Because of positioning on the operating table, he would like to wait until the EpiFix applications are completed and then proceed with surgery to close the right flank ulcer. Tentatively will schedule end of December or early January. Followup one week. [id number]: [id number] Pooja subq tissue 20 sq cm/< - right flank ulcer [id number]: [id number] Skin sub graft trnk/arm/leg - left lateral middle back ulcer
[2019-12-30 08:52] VITALS: BP 111/68; PULSE 62; RESP 18; TEMP 37.1; BMI 28.2
--- NOTE | 2019-12-30 13:12 | PCM.PN.SRG ---
- Physical Exam Vitals/I&O's: Vital Signs Temp Pulse Resp BP Pulse Ox 98.7 F 62 18 111/68 97 12/30/19 08:52 12/30/19 08:52 12/30/19 08:52 12/30/19 08:52 12/17/19 00:28 Oxygen Delivery Method Room Air Body Mass Index (BMI) 28.2 Finger Stick Blood Glucose 134 Medical Necessity - Tobacco Use Smoking Status: Never smoker Tobacco Use: Non-smoker Assessment/Plan All Active Problems (Last Reviewed 12/03/19 @ 08:[address] Ryan Gandhi, DO) Cellulitis of mid back region (Acute) Bone fracture (Resolved) History of bleeding ulcers (Resolved) Sebaceous cyst (Acute) Screening for intestinal cancer (Acute)
--- NOTE | 2019-12-30 16:17 | PN.PCM_ITS ---
Type of Wound Date of Service: 12/30/19 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: Nonhealing diabetic ulcers left lateral middle back and right flank. History of Wound: Surgery 07/23/19 - 1. Surgical preparation right lateral middle back with incision and drainage and excisional debridement nonhealing infected diabetic ulcer (66 cm2). 2. Surgical preparation left lateral middle back with incision and drainage and excisional debridement nonhealing infected diabetic ulcer (137.75 cm2). Wound care - Epifix #9 on left lateral middle back ulcer. Daily silver dressing changes to right flank ulcer. He has persistent pain in the right flank ulcer and a wound culture was obtained on 09/23/19 and it showed Staphylococcus aureus. He was started on Doxycycline and has finished them. Repeat wound culture on 11/04/19 showed Staphylococcus epidermidis and Corynebacterium amycolatum. He was placed on Levaquin and Augmentin and has finished them. Operative cultures from 07/23/19 were positive for resistant Staphylococcus epidermidis (MRSE). He was started on IV Vancomycin since he had been on Doxycyline, Cleocin, and Zyvox in the past for the persistent Staph infections. He developed compromise to the healing skin grafts that necessitated HBO Treatments which he tolerated. Prealbumin from 07/22/19 was 18.7. Encourage nutritonal supplementation with protein to help the healing process. His HgbA1c from 07/22/19 was 5.9. Today he denies fever. His appetite is good. Progress of Wound: The left lateral middle back ulcer has improved and the right lateral middle back ulcer remains healed and the right flank ulcer has persistent pain. - Physical Exam Vital Signs Temp Pulse Resp BP Pulse Ox 98.7 F 62 18 111/68 97 12/30/19 08:52 12/30/19 08:52 12/30/19 08:52 12/30/19 08:52 12/17/19 00:28 Wound Measurements and Assessment WC - Nurse 1 - General Ulcer Measurement Start: 12/24/19 10:10 Freq: Status: Active Protocol: Activity Type Activity Date Activity User E-Sign Co-Sign Detail Recorded Client Recorded Date Recorded By Document 12/30/19 08:52 DL [id number] 12/30/19 08:58 DL 12/30/19 08:52 Wound Center Nurse 1 [Ulcer Assessment] #7 R flank -Current Size (cm) - Length 2.8 -Current Size (cm) - Width 6.1 -Current Size (cm) - Depth 0.3 -Total Square Cm 17.08 -Photo Taken No -Exudate Amt Small -Exudate Type Sanguineous -Wound Margin Distinct, Outline Attached -Granulation Amt Large (67-100%) -Granulation Quality Red -Necrosis Amt Small (1-33%) -Necrotic Tissue Type Adherent Slough -Structure Exposed N/A -Texture (Mayra-wound Skin Appearance) Scarring -Moisture (Mayra-wound Skin Appearance No Abnormality ) -Color (Mayra-wound Skin Appearance) No Abnormality -Temperature (Mayra-wound Skin No Abnormality Appearance) (Pt Warm) -Tenderness on Palpation (Mayra-wound Yes Skin Appearance) -Ulcer Cleansing Rinsed/ Irrigated with Saline -Foul Odor after Cleansing No -Anesthetic Used 4% Lidocaine Solution 6. L lateral middle back -Current Size (cm) - Length 0.9 -Current Size (cm) - Width 0.8 -Current Size (cm) - Depth 0.2 -Total Square Cm 0.72 -Photo Taken No -Exudate Amt Small -Exudate Type Serosanguineous -Wound Margin Distinct, Outline Attached -Granulation Amt Large (67-100%) -Granulation Quality Yermo -Necrosis Amt Small (1-33%) -Necrotic Tissue Type Adherent Slough -Texture (Mayra-wound Skin Appearance) Scarring -Moisture (Mayra-wound Skin Appearance No Abnormality ) -Color (Mayra-wound Skin Appearance) No Abnormality -Temperature (Mayra-wound Skin No Abnormality Appearance) (Pt Warm) -Tenderness on Palpation (Mayra-wound Yes Skin Appearance) -Ulcer Cleansing Rinsed/ Irrigated with Saline -Foul Odor after Cleansing No -Anesthetic Used 4% Lidocaine Solution WC - Nurse 2 - General Ulcer CM Notes Start: 12/24/19 10:10 Freq: Status: Active Protocol: Activity Type Activity Date Activity User E-Sign Co-Sign Detail Recorded Client Recorded Date Recorded By Document 12/30/19 09:28 [email or web address] [id number] 12/30/19 09:40 [facility] 12/30/19 09:28 Wound Center Nurse 2 [Procedure/Treatment] #7 R flank -Time 09:29 -Correct Patient Yes -Correct Side, Site, Position Yes -Correct Procedure Yes -Procedure Performed Yes -Type of Procedure Debridement -Clinical Debridement Subcutaneous -Tissue Removed Subcutaneous -Post Debridement (cm) - Length 2.5 -Post Debridement (cm) - Width 6.2 -Post Debridement (cm) - Depth 0.2 -Total Square (Post) (cm) 15.50 -Area of Debridement (cm) - Length 2.5 -Area of Debridement (cm) - Width 6.2 -Total Square (Area) (cm) 15.50 -Tunneling No -Undermining/Tunneling No -Circular Undermining No -Wound/Ulcer Outcome Not Healed -Ulcer Cleansing Rinsed/ Irrigated with Saline -Foul Odor after Cleansing No -Bioengineered Tissue No -Bleeding Controlled with Pressure -Offloading No -Treatment Response Procedure Tolerated Well -Debridement - Subq, 1st 20sq cm Yes 6. L lateral middle back -Time 09:37 -Correct Patient Yes -Correct Side, Site, Position Yes -Correct Procedure Yes -Procedure Performed Yes -Type of Procedure Debridement -Clinical Debridement Subcutaneous -Tissue Removed Subcutaneous -Post Debridement (cm) - Length 2.5 -Post Debridement (cm) - Width 6.4 -Post Debridement (cm) - Depth 0.2 -Total Square (Post) (cm) 16.00 -Area of Debridement (cm) - Length 2.5 -Area of Debridement (cm) - Width 6.4 -Total Square (Area) (cm) 16.00 -Tunneling Yes -Tunneling Position (O'clock) 2 -Tunneling Distance (cm) 1 -Undermining/Tunneling No -Circular Undermining No -Wound/Ulcer Outcome Not Healed -Ulcer Cleansing Rinsed/ Irrigated with Saline -Foul Odor after Cleansing No -Bioengineered Tissue Yes -Type of Bioengineered Tissue Epifix Mesh #10 -Expiration Date 08/15/24 -Product Lot Number [id number] -Percent Used 100 -Saline Lot Number [id number] -Bleeding Controlled with Pressure -Offloading No -Treatment Response Procedure Tolerated Well -Debridement - Subq, 1st 20sq cm No -Apply Skin Sub - 1st 25 sq cm - Legs 1 -Epifix Mesh (per sq cm) 11 [See Physician Procedure note for Specifics] Pain Scale: 0-10 Numeric [Pain] -Is Patient Pain Free? Yes WC - Nurse 3 - General Ulcer D/C NN Start: 12/24/19 10:10 Freq: Status: Active Protocol: Activity Type Activity Date Activity User E-Sign Co-Sign Detail Recorded Client Recorded Date Recorded By Document 12/30/19 09:52 [email or web address] [id number] 12/30/19 09:55 DL 12/30/19 09:52 Wound Care Nurse 3 [Wound Dressing] #7 R flank -Ulcer Cleansing Rinsed/ Irrigated with Saline -Foul Odor after Cleansing No -Primary Dressing Applied Aquacel AG 4x4 -Primary Dressing Covered/Secured Dry Gauze, with Secured with Tape -Aquacel AG 4x4 1 6. L lateral middle back -Ulcer Cleansing Rinsed/ Irrigated with Saline -Foul Odor after Cleansing No -Primary Dressing Covered/Secured Dry Gauze,Other with -Other Covering Epifix #10 [Post Procedure Tolerated] -Treatment Response Procedure Tolerated Well Pain Scale: 0-10 Numeric [Pain] -Is Patient Pain Free? Yes WC - Visit Discharge [Visit Discharge Information] -Discharge Condition Stable -Ambulatory Status Ambulatory -Transportation Private Auto Debridement Note Post-Debridement Measurements/Treatment WC - Nurse 2 - General Ulcer CM Notes Start: 12/24/19 10:10 Freq: Status: Active Protocol: Activity Type Activity Date Activity User E-Sign Co-Sign Detail Recorded Client Recorded Date Recorded By Document 12/24/19 12:26 [id number] 12/24/19 12:33 Document 12/30/19 09:28 [id number] 12/30/19 09:40 12/24/19 12/30/19 12:26 09:28 Wound Center Nurse 2 #7 R flank -Time 12:26 09:29 -Correct Patient Yes Yes -Correct Side, Site, Position Yes Yes -Correct Procedure Yes Yes -Procedure Performed Yes Yes -Type of Procedure Debridement Debridement -Clinical Debridement Subcutaneous Subcutaneous -Tissue Removed Subcutaneous Subcutaneous -Post Debridement (cm) - Length 3.0 2.5 -Post Debridement (cm) - Width 5.7 6.2 -Post Debridement (cm) - Depth 0.5 0.2 -Total Square (Post) (cm) 17.10 15.50 -Area of Debridement (cm) - Length 3.0 2.5 -Area of Debridement (cm) - Width 5.7 6.2 -Total Square (Area) (cm) 17.10 15.50 -Tunneling No No -Undermining/Tunneling No No -Circular Undermining No No -Wound/Ulcer Outcome Not Healed Not Healed -Ulcer Cleansing Rinsed/ Rinsed/ Irrigated with Irrigated with Saline Saline -Foul Odor after Cleansing No No -Bioengineered Tissue No No -Bleeding Controlled with Pressure Pressure -Offloading No No -Treatment Response Procedure Procedure Tolerated Well Tolerated Well -Debridement - Subq, 1st 20sq cm Yes Yes 6. L lateral middle back -Time 12:27 09:37 -Correct Patient Yes Yes -Correct Side, Site, Position Yes Yes -Correct Procedure Yes Yes -Procedure Performed Yes Yes -Type of Procedure Debridement Debridement -Clinical Debridement Subcutaneous Subcutaneous -Tissue Removed Subcutaneous Subcutaneous -Post Debridement (cm) - Length 3.2 2.5 -Post Debridement (cm) - Width 6.0 6.4 -Post Debridement (cm) - Depth 0.4 0.2 -Total Square (Post) (cm) 19.20 16.00 -Area of Debridement (cm) - Length 3.0 2.5 -Area of Debridement (cm) - Width 6.0 6.4 -Total Square (Area) (cm) 18.00 16.00 -Tunneling No Yes -Tunneling Position (O'clock) 2 -Tunneling Distance (cm) 1 -Undermining/Tunneling No No -Circular Undermining No No -Wound/Ulcer Outcome Not Healed Not Healed -Ulcer Cleansing Rinsed/ Rinsed/ Irrigated with Irrigated with Saline Saline -Foul Odor after Cleansing No No -Bioengineered Tissue Yes Yes -Type of Bioengineered Tissue Epifix Mesh Epifix Mesh #10 -Expiration Date 08/15/24 08/15/24 -Product Lot Number [id number] -Percent Used 100 100 -Saline Lot Number [id number] -Bleeding Controlled with Pressure Pressure -Offloading No No -Treatment Response Procedure Tolerated Well -Debridement - Subq, 1st 20sq cm No No -Apply Skin Sub - 1st 25 sq cm - Legs 1 1 -Epifix Mesh (per sq cm) 11 11 Pain Scale: 0-10 Numeric Is Patient Pain Free? Yes Yes WC - Nurse 3 - General Ulcer D/C NN Start: 12/24/19 10:10 Freq: Status: Active Protocol: Activity Type Activity Date Activity User E-Sign Co-Sign Detail Recorded Client Recorded Date Recorded By Document 12/24/19 12:26 [id number] 12/24/19 12:33 Document 12/30/19 09:52 DL [id number] 12/30/19 09:55 DL 12/24/19 12/30/19 12:26 09:52 Pain Scale: 0-10 Numeric Is Patient Pain Free? Yes Yes Wound Care Nurse 3 #7 R flank -Ulcer Cleansing Rinsed/ Rinsed/ Irrigated with Irrigated with Saline Saline -Foul Odor after Cleansing No No -Primary Dressing Applied Aquacel AG 4x4 Aquacel AG 4x4 -Primary Dressing Covered/Secured with Dry Gauze, Dry Gauze, Secured with Secured with Tape Tape -Aquacel AG 4x4 1 1 6. L lateral middle back -Ulcer Cleansing Rinsed/ Rinsed/ Irrigated with Irrigated with Saline Saline -Foul Odor after Cleansing No No -Primary Dressing Covered/Secured with Dry Gauze,Other Dry Gauze,Other -Other Covering abdominal pad Epifix #10 Treatment Response Procedure Tolerated Well WC - Visit Discharge Discharge Condition Stable Stable Ambulatory Status Ambulatory Ambulatory Transportation Private Auto Private Auto Medication Reconcilliation completed & Yes provided to patient/care provider Clinical Summary of Care Provided Yes Wound debrided: #6 Left lateral middle back. Laterality: Left Wound Grade/Stage: 2. Type of Debridement: Excisional debridement Anesthesia Used: 4% Lidocaine Solution Depth: Down to and including healthy tissue, in the subcutaneous layer Percentage of wound debrided: 100 Instrument Used: 3mm curette Tissue Removed: subcutaneous tissue. Severity: Fat Layer Exposed Amount of bleeding with debridement: Mild Bleeding Controlled with: Pressure Patient tolerated procedure well, - - Epifix #10 was placed today. Expiration - August 15, 2024. Lot Number - [id number]. % Used - 100%. Saline Lot Number - [id number]. - Additional Wound Wound debrided: #7 Right flank. Laterality: Right Wound Grade/Stage: 2. Type of Debridement: Excisional debridement Anesthesia Used: 4% Lidocaine Solution Depth: Down to and including healthy tissue, in the subcutaneous layer Percentage of wound debrided: 100 Instrument Used: 5mm curette Tissue Removed: subcutaneous tissue. Severity: Fat Layer Exposed Amount of bleeding with debridement: Mild Bleeding Controlled with: Pressure Patient tolerated procedure: Patient tolerated procedure well Assessment/Plan Active Problems (Last Reviewed 12/03/19 @ 08:[address] 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 Diabetic ulcer right lateral middle back, healed. 2. Nonheali ng diabetic ulcer left lateral middle back. 3. Nonhealing diabetic ulcer right posterior flank. 4. Diabetes mellitus. 5. s/p surgical preparation right lateral middle back with incision and drainage and excisional debridement nonhealing infected diabetic ulcer (66 cm2) and surgical preparation left lateral middle back with incision and drainage and excisional debridement nonhealing infected diabetic ulcer (137.75 cm2). Plan: Epifix #10 was applied to the left middle lateral back ulcer. 100% of the product was used. Continue daily silver dressing changes to right flank ulcer. Wound culture from 11/04/19 from the right flank was positive for Staphylococcus epidermidis and Corynebacterium amycolatum. He was placed on Levaquin and Augmentin and has finished them. Labs from 07/22/19- Prealbumin was 18.7. Encourage nutritional supplementation with protein to help the healing process. HgbA1c was 5.9. Since the right flank ulcer has persistent pain and has reached a plateau in the healing process, will proceed with operative debridement and complex secondary wound closure after the Epifix grafts have been placed. Today is the last day to place Epifix. Because of positioning on the operating table, he would like to wait until the EpiFix applications are completed and then proceed with surgery to close the right flank ulcer. His surgery has been sche duled for 01/17/20. It will be under general anesthesia on an outpatient basis. A drain will be placed along with AmnioFill placental connective tissue powder to help with the healing process. Patient was informed of the risks and complications of the procedure including alternatives to surgery. These were discussed with him personally. He voices understanding and wishes to proceed. Followup one week. [id number]: [id number] Pooja subq tissue 20 sq cm/< - ICD-10 - L98.492, L03.312, E11.9, T86.829 Right flank ulcer [id number]: [id number] Skin sub graft trnk/arm/leg - ICD-10 - L98.492, L03.312, E11.9, T86.829 Left lateral middle back ulcer
[2020-01-06 09:22] VITALS: BP 125/68; PULSE 60; RESP 18; TEMP 36.6; BMI 28.2
--- NOTE | 2020-01-06 12:32 | PN.PCM_ITS ---
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 History of Wound: Surgery 07/23/19 - 1. Surgical preparation right lateral middle back with incision and drainage and excisional debridement nonhealing infected diabetic ulcer (66 cm2). 2. Surgical preparation left lateral middle back with incision and drainage and excisional debridement nonhealing infected diabetic ulcer (137.75 cm2). Wound care - he has completed 10 applications of Epifix to the left lateral middle back ulcer; will start daily collagen hydrogel with Adaptic to this ulcer. Continue daily silver dressing changes to right flank ulcer until planned surgery on 01/17/[address] Lemus. He has persistent pain in the right flank ulcer and a wound culture was obtained on 09/23/19 and it showed Staphylococcus aureus. He was started on Doxycycline and has finished them. Repeat wound culture on 11/04/19 showed Staphylococcus epidermidis and Corynebacterium amycolatum. He was placed on Levaquin and Augmentin and has finished them. Operative cultures from 07/23/19 were positive for resistant Staph ylococcus epidermidis (MRSE). He was started on IV Vancomycin since he had been on Doxycyline, Cleocin, and Zyvox in the past for the persistent Staph infections. He developed compromise to the healing skin grafts that necessitated HBO Treatments which he tolerated. Prealbumin from 07/22/19 was 18.7. Encourage nutritonal supplementation with protein to help the healing process. His HgbA1c from 07/22/19 was 5.9. Today he denies fever. His appetite is good. Progress of Wound: The patient denies any fever, chills, nausea, vomiting, or diarrhea. Denies any signs of infection, including increasing pain, redness, swelling, or drainage from affected areas. The left lateral middle back ulcer has improved in appearance, though is slightly larger in size this week. The right lateral middle back ulcer remains healed. The right flank ulcer continues to have persistent pain, and has slightly increased in size. - Physical Exam Vital Signs Temp Pulse Resp BP Pulse Ox 97.8 F 60 18 125/68 H 97 01/06/20 09:22 01/06/20 09:22 01/06/20 09:22 01/06/20 09:22 12/17/19 00:28 General: Alert, Oriented x3, Cooperative, No apparent distress HEENT: Atraumatic, Normocephalic Oral: Moist Mucosa Lungs: Normal air movement Cardiovascular: Regular rate Extremities: Capillary Refill Less than 3 Seconds Skin: Ulcer/ Wound - Left lateral middle back ulcer cluster with subcutaneous layer exposed. Granulation tissue is present. Scant amount of slough and devitalized tissue present. There is tunneling from 2:00 to 5:00. There is no undermining. The right flank ulcer is red with a small amount of slough; no tunneling or undermining present; very painful to palpation. Wound Measurements and Assessment WC - Nurse 1 - General Ulcer Measurement Start: 12/24/19 10:10 Freq: Status: Active Protocol: Activity Type Activity Date Activity User E-Sign Co-Sign Detail Recorded Client Recorded Date Recorded By Document 01/06/20 09:22 DL [id number] 01/06/20 09:29 DL 01/06/20 09:22 Wound Center Nurse 1 [Ulcer Assessment] #7 R Lower Side -Current Size (cm) - Length 3.3 -Current Size (cm) - Width 6 -Current Size (cm) - Depth 0.6 -Total Square Cm 19.8 -Photo Taken No -Exudate Amt Small -Exudate Type Sanguineous -Wound Margin Distinct, Outline Attached -Granulation Amt Large (67-100%) -Granulation Quality Red -Necrosis Amt Small (1-33%) -Necrotic Tissue Type Adherent Slough -Structure Exposed N/A -Texture (Mayra-wound Skin Appearance) Scarring -Moisture (Mayra-wound Skin Appearance No Abnormality ) -Color (Mayra-wound Skin Appearance) No Abnormality -Temperature (Mayra-wound Skin No Abnormality Appearance) (Pt Warm) -Tenderness on Palpation (Mayra-wound No Skin Appearance) -Ulcer Cleansing Wound Cleanser -Foul Odor after Cleansing No 6. L lumbar back -Current Size (cm) - Length 3.3 -Current Size (cm) - Width 3.6 -Current Size (cm) - Depth 0.3 -Total Square Cm 11.88 -Photo Taken No -Exudate Amt Small -Exudate Type Serosanguineous -Wound Margin Indistinct, Non -Visible -Granulation Amt Large (67-100%) -Granulation Quality [place],Red -Necrosis Amt Small (1-33%) -Necrotic Tissue Type Adherent Slough -Structure Exposed N/A -Texture (Mayra-wound Skin Appearance) Scarring -Moisture (Mayra-wound Skin Appearance No Abnormality ) -Color (Mayra-wound Skin Appearance) No Abnormality -Temperature (Mayra-wound Skin No Abnormality Appearance) (Pt Warm) -Tenderness on Palpation (Mayra-wound No Skin Appearance) -Ulcer Cleansing Rinsed/ Irrigated with Saline -Foul Odor after Cleansing No WC - Nurse 2 - General Ulcer CM Notes Start: 12/24/19 10:10 Freq: Status: Active Protocol: Activity Type Activity Date Activity User E-Sign Co-Sign Detail Recorded Client Recorded Date Recorded By Document 01/06/20 09:36 [facility] [id number] 01/06/20 09:50 [facility] 01/06/20 09:36 Wound Center Nurse 2 [Procedure/Treatment] #7 R Lower Side -Time 09:36 -Correct Patient Yes -Correct Side, Site, Position Yes -Correct Procedure Yes -Procedure Performed Yes -Type of Procedure Debridement -Clinical Debridement Subcutaneous -Tissue Removed Subcutaneous -Post Debridement (cm) - Length 2.7 -Post Debridement (cm) - Width 6.2 -Post Debridement (cm) - Depth 0.2 -Total Square (Post) (cm) 16.74 -Area of Debridement (cm) - Length 2.7 -Area of Debridement (cm) - Width 6.2 -Total Square (Area) (cm) 16.74 -Tunneling No -Undermining/Tunneling No -Circular Undermining No -Wound/Ulcer Outcome Not Healed -Ulcer Cleansing Rinsed/ Irrigated with Saline -Foul Odor after Cleansing No -Bioengineered Tissue No -Bleeding Controlled with Pressure -Offloading No -Treatment Response Procedure Tolerated Well -Debridement - Subq, 1st 20sq cm No 6. L lumbar back -Time 09:36 -Correct Patient Yes -Correct Side, Site, Position Yes -Correct Procedure Yes -Procedure Performed Yes -Type of Procedure Debridement -Clinical Debridement Subcutaneous -Tissue Removed Subcutaneous -Post Debridement (cm) - Length 3.3 -Post Debridement (cm) - Width 5.6 -Post Debridement (cm) - Depth 0.3 -Total Square (Post) (cm) 18.48 -Area of Debridement (cm) - Length 3.3 -Area of Debridement (cm) - Width 5.6 -Total Square (Area) (cm) 18.48 -Tunneling No -Undermining/Tunneling Yes -Undermining/Tunneling Starts (O' 2 clock) -Undermining/Tunneling Ends (O'clock) 5 -Maximum Distance (cm) 0.3 -Circular Undermining No -Wound/Ulcer Outcome Not Healed -Ulcer Cleansing Rinsed/ Irrigated with Saline -Foul Odor after Cleansing No -Bioengineered Tissue No -Bleeding Controlled with Pressure -Offloading No -Treatment Response Procedure Tolerated Well -Debridement - Subq, 1st 20sq cm Yes -Debridement, SubQ, ea addt'l 20sq cm 1 or part thereof [See Physician Procedure note for Specifics] Pain Scale: 0-10 Numeric [Pain] -Is Patient Pain Free? Yes WC - Nurse 3 - General Ulcer D/C NN Start: 12/24/19 10:10 Freq: Status: Active Protocol: Activity Type Activity Date Activity User E-Sign Co-Sign Detail Recorded Client Recorded Date Recorded By Document 01/06/20 10:08 [facility] [id number] 01/06/20 10:09 [facility] 01/06/20 10:08 Wound Care Nurse 3 [Wound Dressing] #7 R Lower Side -Ulcer Cleansing Rinsed/ Irrigated with Saline -Foul Odor after Cleansing No -Primary Dressing Applied Aquacel AG 4x4 -Primary Dressing Covered/Secured Secured with with Tape,Other -Other Covering abd -Aquacel AG 4x4 1 6. L lumbar back -Ulcer Cleansing Rinsed/ Irrigated with Saline -Foul Odor after Cleansing No -Primary Dressing Applied C Hydrogel ($), NonAdherent Contact Layer -Primary Dressing Covered/Secured Secured with with Tape,Other -Other Covering abd [Post Procedure Tolerated] -Treatment Response Procedure Tolerated Well Pain Scale: 0-10 Numeric [Pain] -Is Patient Pain Free? Yes - Visit Discharge [Visit Discharge Information] -Discharge Condition Stable -Ambulatory Status Ambulatory -Transportation Private Auto Psych/Mental Status: Normal Affect, Appropriate Debridement Note Post-Debridement Measurements/Treatment - Nurse 2 - General Ulcer CM Notes Start: 12/24/19 10:10 Freq: Status: Active Protocol: Activity Type Activity Date Activity User E-Sign Co-Sign Detail Recorded Client Recorded Date Recorded By Document 12/24/19 12:26 [id number] 12/24/19 12:33 Document 12/30/19 09:28 [id number] 12/30/19 09:40 Document 01/06/20 09:36 [id number] 01/06/20 09:50 12/24/19 12/30/19 01/06/20 12:26 09:28 09:36 Wound Center Nurse 2 #7 R Lower Side -Time 12:26 09:29 09:36 -Correct Patient Yes Yes Yes -Correct Side, Site, Position Yes Yes Yes -Correct Procedure Yes Yes Yes -Procedure Performed Yes Yes Yes -Type of Procedure Debridement Debridement Debridement -Clinical Debridement Subcutaneous Subcutaneous Subcutaneous -Tissue Removed Subcutaneous Subcutaneous Subcutaneous -Post Debridement (cm) - Length 3.0 2.5 2.7 -Post Debridement (cm) - Width 5.7 6.2 6.2 -Post Debridement (cm) - Depth 0.5 0.2 0.2 -Total Square (Post) (cm) 17.10 15.50 16.74 -Area of Debridement (cm) - Length 3.0 2.5 2.7 -Area of Debridement (cm) - Width 5.7 6.2 6.2 -Total Square (Area) (cm) 17.10 15.50 16.74 -Tunneling No No No -Undermining/Tunneling No No No -Circular Undermining No No No -Wound/Ulcer Outcome Not Healed Not Healed Not Healed -Ulcer Cleansing Rinsed/ Rinsed/ Rinsed/ Irrigated with Irrigated with Irrigated with Saline Saline Saline -Foul Odor after Cleansing No No No -Bioengineered Tissue No No No -Bleeding Controlled with Pressure Pressure Pressure -Offloading No No No -Treatment Response Procedure Procedure Procedure Tolerated Well Tolerated Well Tolerated Well -Debridement - Subq, 1st 20sq cm Yes Yes No 6. L lumbar back -Time 12:27 09:37 09:36 -Correct Patient Yes Yes Yes -Correct Side, Site, Position Yes Yes Yes -Correct Procedure Yes Yes Yes -Procedure Performed Yes Yes Yes -Type of Procedure Debridement Debridement Debridement -Clinical Debridement Subcutaneous Subcutaneous Subcutaneous -Tissue Removed Subcutaneous Subcutaneous Subcutaneous -Post Debridement (cm) - Length 3.2 2.5 3.3 -Post Debridement (cm) - Width 6.0 6.4 5.6 -Post Debridement (cm) - Depth 0.4 0.2 0.3 -Total Square (Post) (cm) 19.20 16.00 18.48 -Area of Debridement (cm) - Length 3.0 2.5 3.3 -Area of Debridement (cm) - Width 6.0 6.4 5.6 -Total Square (Area) (cm) 18.00 16.00 18.48 -Tunneling No Yes No -Tunneling Position (O'clock) 2 -Tunneling Distance (cm) 1 -Undermining/Tunneling No No Yes -Undermining/Tunneling Starts (O'clock 2 ) -Undermining/Tunneling Ends (O'clock) 5 -Maximum Distance (cm) 0.3 -Circular Undermining No No No -Wound/Ulcer Outcome Not Healed Not Healed Not Healed -Ulcer Cleansing Rinsed/ Rinsed/ Rinsed/ Irrigated with Irrigated with Irrigated with Saline Saline Saline -Foul Odor after Cleansing No No No -Bioengineered Tissue Yes Yes No -Type of Bioengineered Tissue Epifix Mesh Epifix Mesh -Expiration Date 08/15/24 08/15/24 -Product Lot Number [id number] -Percent Used 100 100 -Saline Lot Number [id number] -Bleeding Controlled with Pressure Pressure Pressure -Offloading No No No -Treatment Response Procedure Procedure Tolerated Well Tolerated Well -Debridement - Subq, 1st 20sq cm No No Yes -Debridement, SubQ, ea addt'l 20sq cm 1 or part thereof -Apply Skin Sub - 1st 25 sq cm - Legs 1 1 -Epifix Mesh (per sq cm) 11 11 Pain Scale: 0-10 Numeric Is Patient Pain Free? Yes Yes Yes WC - Nurse 3 - General Ulcer D/C NN Start: 12/24/19 10:10 Freq: Status: Active Protocol: Activity Type Activity Date Activity User E-Sign Co-Sign Detail Recorded Client Recorded Date Recorded By Document 12/24/19 12:26 [id number] 12/24/19 12:33 Document 12/30/19 09:52 DL [id number] 12/30/19 09:55 DL Document 01/06/20 10:08 [facility] [id number] 01/06/20 10:09 [facility] 12/24/19 12/30/19 01/06/20 12:26 09:52 10:08 Pain Scale: 0-10 Numeric Is Patient Pain Free? Yes Yes Yes Wound Care Nurse 3 #7 R Lower Side -Ulcer Cleansing Rinsed/ Rinsed/ Rinsed/ Irrigated with Irrigated with Irrigated with Saline Saline Saline -Foul Odor after Cleansing No No No -Primary Dressing Applied Aquacel AG 4x4 Aquacel AG 4x4 Aquacel AG 4x4 -Primary Dressing Covered/Secured with Dry Gauze, Dry Gauze, Secured with Secured with Secured with Tape,Other Tape Tape -Other Covering abd -Aquacel AG 4x4 1 1 1 6. L lumbar back -Ulcer Cleansing Rinsed/ Rinsed/ Rinsed/ Irrigated with Irrigated with Irrigated with Saline Saline Saline -Foul Odor after Cleansing No No No -Primary Dressing Applied C Hydrogel ($), NonAdherent Contact Layer -Primary Dressing Covered/Secured with Dry Gauze,Other Dry Gauze,Other Secured with Tape,Other -Other Covering abdominal pad Epifix abd Treatment Response Procedure Procedure Tolerated Well Tolerated Well WC - Visit Discharge Discharge Condition Stable Stable Stable Ambulatory Status Ambulatory Ambulatory Ambulatory Transportation Private Auto Private Auto Private Auto Medication Reconcilliation completed & Yes provided to patient/care provider Clinical Summary of Care Provided Yes Wound debrided: Lateral middle back ulcer cluster Laterality: Left Type of Debridement: Excisional debridement Anesthesia Used: 5% Lidocaine Gel Depth: in the subcutaneous layer Percentage of wound debrided: 100 Instrument Used: 3mm curette Tissue Removed: Slough and devitalized tissue Severity: Fat Layer Exposed Amount of bleeding with debridement: Mild Bleeding Controlled with: Pressure Patient tolerated procedure well - Additional Wound Wound debrided: Flank area Laterality: Right Type of Debridement: Excisional debridement Anesthesia Used: 5% Lidocaine Gel Depth: in the subcutaneous layer Percentage of wound debrided: 100 Instrument Used: 7mm curette Tissue Removed: Slough and devitalized tissue Severity: Fat Layer Exposed Amount of bleeding with debridement: Mild Bleeding Controlled with: Pressure Patient tolerated procedure: Patient did not tolerate procedure well Assessment/Plan Active Problems (Last Reviewed 12/03/19 @ 08:[address] 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 Diabetic ulcer right lateral middle back, healed. 2. Nonhea ling diabetic ulcer left lateral middle back. 3. Nonhealing diabetic ulcer right posterior flank. 4. Diabetes mellitus. 5. s/p surgical preparation right lateral middle back with incision and drainage and excisional debridement nonhealing infected diabetic ulcer (66 cm2) and surgical preparation left lateral middle back with incision and drainage and excisional debridement nonhealing infected diabetic ulcer (137.75 cm2). Plan: 10 applications of Epifix to the left middle lateral back ulcer have been completed. Will begin daily dressing changes to the left middle lateral back ulcer with collagen hydrogel and Adaptic. Continue daily silver dressing changes to right flank ulcer. Wound culture from 11/04/19 from the right flank was positive for Staphylococcus epidermidis and Corynebacterium amycolatum. He was placed on Levaquin and Augmentin and has finished them. Labs from 07/22/19- Prealbumin was 18.7. Encourage nutritional supplementation with protein to help the healing process. HgbA1c was 5.9. Since the right flank ulcer has persistent pain and has reached a plateau in the healing process, will proceed with operative debridement and complex secondary wound closure on 01/17/[address] Lemus. It will be under general anesthesia on an outpatient basis. A drain will be placed along with AmnioFill placental connective tissue powder to help with the healing process. Patient was informed of the risks and complications of the procedure including alternatives to surgery. These were discussed with him personally. He voices understanding and wishes to proceed. Follow-up one week. Follow-up sooner should new symptoms arise. [id number]: [id number] Pooja subq tissue 20 sq cm/<
[2020-01-13 09:25] VITALS: BP 123/74; PULSE 66; RESP 18; TEMP 36.8; BMI 28.2
[2020-01-13 10:12] VITALS: BP 128/73; PULSE 65; RESP 16
--- NOTE | 2020-01-13 13:01 | PCM.WC.PN ---
Type of Wound Date of Service: 01/13/20 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: Nonhealing diabetic ulcers left lateral middle back and right flank. History of Wound: Surgery 07/23/19 - 1. Surgical preparation right lateral middle back with incision and drainage and excisional debridement nonhealing infected diabetic ulcer (66 cm2). 2. Surgical preparation left lateral middle back with incision and drainage and excisional debridement nonhealing infected diabetic ulcer (137.75 cm2). Wound care - he has completed 10 applications of Epifix to the left lateral middle back ulcer; will start daily collagen hydrogel with Adaptic to this ulcer. Continue daily silver dressing changes to right flank ulcer until planned surgery on 01/17/2020. He has persistent pain in the right flank ulcer and a wound culture was obtained on 09/23/19 and it showed Staphylococcus aureus. He was started on Doxycycline and has finished them. Repeat wound culture on 11/04/19 showed Staphylococcus epidermidis and Corynebacterium amycolatum. He was placed on Levaquin and Augmentin and has finished them. Operative cultures from 07/23/19 were positive for resistant Staphylococcus epidermidis (MRSE). He was started on IV Vancomycin since he had been on Doxycyline, Cleocin, and Zyvox in the past for the persistent Staph infections. He developed compromise to the healing skin grafts that necessitated HBO Treatments which he tolerated. Prealbumin from 07/22/19 was 18.7. Encourage nutritonal supplementation with protein to help the healing process. His HgbA1c from 07/22/19 was 5.9. Today he denies fever. His appetite is good. Progress of Wound: The left lateral middle back ulcer has improved. The right lateral middle back ulcer remains healed. The right flank ulcer continues to have persistent pain. - Physical Exam Vital Signs Temp Pulse Resp BP Pulse Ox 98.2 F 65 16 128/73 H 97 01/13/20 09:25 01/13/20 10:12 01/13/20 10:12 01/13/20 10:12 12/17/19 00:28 Wound Measurements and Assessment WC - Nurse 1 - General Ulcer Measurement Start: 12/24/19 10:10 Freq: Status: Active Protocol: Activity Type Activity Date Activity User E-Sign Co-Sign Detail Recorded Client Recorded Date Recorded By Document 01/13/20 09:25 DL [id number] 01/13/20 09:33 DL 01/13/20 09:25 Wound Center Nurse 1 [Ulcer Assessment] #7 R Lower Side -Combined with other wound No -Current Size (cm) - Length 2.8 -Current Size (cm) - Width 6.7 -Current Size (cm) - Depth 0.4 -Total Square Cm 18.76 -Epithelialization None Present -Tunneling No -Undermining/Tunneling No -Circular Undermining No -Exudate Amt Medium -Exudate Type Serosanguineous -Wound Margin Thickened -Granulation Amt Medium (34-66%) -Granulation Quality Red -Slough/Fibrin Yes -Necrosis Amt Medium (34-66%) -Necrotic Tissue Type Adherent Slough -Texture (Mayra-wound Skin Appearance) Assessed, Scarring -Moisture (Mayra-wound Skin Appearance Assessed ) -Color (Mayra-wound Skin Appearance) Assessed, Erythema -Temperature (Mayra-wound Skin No Abnormality Appearance) (Pt Warm) -Tenderness on Palpation (Mayra-wound Yes Skin Appearance) -Ulcer Cleansing Rinsed/ Irrigated with Saline -Foul Odor after Cleansing No -Anesthetic Used 4% Lidocaine Solution 6. L lumbar back -Combined with other wound No -Current Size (cm) - Length 2.8 -Current Size (cm) - Width 0.7 -Current Size (cm) - Depth 0.2 -Total Square Cm 1.96 -Photo Taken No -Epithelialization Small 1-33% -Tunneling No -Undermining/Tunneling Yes -Undermining/Tunneling Starts (O' 1 clock) -Undermining/Tunneling Ends (O'clock) 3 -Maximum Distance (cm) 0.3 -Circular Undermining No -Exudate Amt Small -Exudate Type Serosanguineous -Wound Margin Flat & Intact -Granulation Amt Large (67-100%) -Granulation Quality Red -Slough/Fibrin Yes -Necrosis Amt Small (1-33%) -Necrotic Tissue Type Adherent Slough -Texture (Mayra-wound Skin Appearance) Assessed, Scarring -Moisture (Mayra-wound Skin Appearance Assessed ) -Color (Mayra-wound Skin Appearance) Assessed -Temperature (Mayra-wound Skin No Abnormality Appearance) (Pt Warm) -Tenderness on Palpation (Mayra-wound No Skin Appearance) -Ulcer Cleansing Rinsed/ Irrigated with Saline -Foul Odor after Cleansing No -Anesthetic Used 4% Lidocaine Solution WC - Nurse 2 - General Ulcer CM Notes Start: 12/24/19 10:10 Freq: Status: Active Protocol: Activity Type Activity Date Activity User E-Sign Co-Sign Detail Recorded Client Recorded Date Recorded By Document 01/13/20 09:59 [id number] 01/13/20 10:03 01/13/20 09:59 Wound Center Nurse 2 [Procedure/Treatment] #7 R Lower Side -Correct Patient No -Correct Side, Site, Position No -Correct Procedure No -Procedure Performed No -Circular Undermining No -Wound/Ulcer Outcome Not Healed 6. L lumbar back -Time 10:00 -Correct Patient Yes -Correct Side, Site, Position Yes -Correct Procedure Yes -Procedure Performed Yes -Type of Procedure Debridement -Clinical Debridement Subcutaneous -Tissue Removed Subcutaneous -Post Debridement (cm) - Length 1.5 -Post Debridement (cm) - Width 4.5 -Post Debridement (cm) - Depth 0.2 -Total Square (Post) (cm) 6.75 -Area of Debridement (cm) - Length 1.5 -Area of Debridement (cm) - Width 4.5 -Total Square (Area) (cm) 6.75 -Tunneling No -Undermining/Tunneling No -Circular Undermining No -Wound/Ulcer Outcome Not Healed -Ulcer Cleansing Rinsed/ Irrigated with Saline -Foul Odor after Cleansing No -Bioengineered Tissue No -Bleeding Controlled with Pressure -Offloading No -Treatment Response Procedure Tolerated Well -Debridement - Subq, 1st 20sq cm Yes [See Physician Procedure note for Specifics] Pain Scale: 0-10 Numeric [Pain] -Is Patient Pain Free? Yes SANDEEP - Nurse 3 - General Ulcer D/C NN Start: 12/24/19 10:10 Freq: Status: Active Protocol: Activity Type Activity Date Activity User E-Sign Co-Sign Detail Recorded Client Recorded Date Recorded By Document 01/13/20 10:12 [facility] [id number] 01/13/20 10:13 [facility] 01/13/20 10:12 Wound Care Nurse 3 [Wound Dressing] #7 R Lower Side -Ulcer Cleansing Rinsed/ Irrigated with Saline -Foul Odor after Cleansing No -Primary Dressing Applied Aquacel AG 2x2 -Primary Dressing Covered/Secured Secured with with Tape,Other -Other Covering abd -Aquacel AG 2x2 1 6. L lumbar back -Ulcer Cleansing Rinsed/ Irrigated with Saline -Foul Odor after Cleansing No -Primary Dressing Applied NonAdherent Contact Layer, Other -Other Dressing hydrogel -Primary Dressing Covered/Secured Secured with with Tape,Other -Other Covering abd [Post Procedure Tolerated] -Treatment Response Procedure Tolerated Well Vital Signs [Pulse] -Pulse Rate (60-100) 65 -Pulse Location Monitor [Respirations] -Respiratory Rate (12-18) 16 -Respiratory rate source Observation -Oxygen Delivery Method Room Air [Blood Pressure] -Blood Pressure (90/60-120/80) 128/73 H -Blood Pressure Mean (mm Hg) 91 -Source Monitor -Position Sitting -Blood Pressure Location Right Arm WC - Visit Discharge [Visit Discharge Information] -Discharge Condition Stable -Ambulatory Status Ambulatory -Transportation Private Auto Debridement Note Post-Debridement Measurements/Treatment WC - Nurse 2 - General Ulcer CM Notes Start: 12/24/19 10:10 Freq: Status: Active Protocol: Activity Type Activity Date Activity User E-Sign Co-Sign Detail Recorded Client Recorded Date Recorded By Document 12/24/19 12:26 [id number] 12/24/19 12:33 Document 12/30/19 09:28 [id number] 12/30/19 09:40 Document 01/06/20 09:36 [id number] 01/06/20 09:50 Document 01/13/20 09:59 [id number] 01/13/20 10:03 12/24/19 12/30/19 01/06/20 12:26 09:28 09:36 Wound Center Nurse 2 #7 R Lower Side -Time 12:26 09:29 09:36 -Correct Patient Yes Yes Yes -Correct Side, Site, Position Yes Yes Yes -Correct Procedure Yes Yes Yes -Procedure Performed Yes Yes Yes -Type of Procedure Debridement Debridement Debridement -Clinical Debridement Subcutaneous Subcutaneous Subcutaneous -Tissue Removed Subcutaneous Subcutaneous Subcutaneous -Post Debridement (cm) - Length 3.0 2.5 2.7 -Post Debridement (cm) - Width 5.7 6.2 6.2 -Post Debridement (cm) - Depth 0.5 0.2 0.2 -Total Square (Post) (cm) 17.10 15.50 16.74 -Area of Debridement (cm) - Length 3.0 2.5 2.7 -Area of Debridement (cm) - Width 5.7 6.2 6.2 -Total Square (Area) (cm) 17.10 15.50 16.74 -Tunneling No No No -Undermining/Tunneling No No No -Circular Undermining No No No -Wound/Ulcer Outcome Not Healed Not Healed Not Healed -Ulcer Cleansing Rinsed/ Rinsed/ Rinsed/ Irrigated with Irrigated with Irrigated with Saline Saline Saline -Foul Odor after Cleansing No No No -Bioengineered Tissue No No No -Bleeding Controlled with Pressure Pressure Pressure -Offloading No No No -Treatment Response Procedure Procedure Procedure Tolerated Well Tolerated Well Tolerated Well -Debridement - Subq, 1st 20sq cm Yes Yes No 6. L lumbar back -Time 12:27 09:37 09:36 -Correct Patient Yes Yes Yes -Correct Side, Site, Position Yes Yes Yes -Correct Procedure Yes Yes Yes -Procedure Performed Yes Yes Yes -Type of Procedure Debridement Debridement Debridement -Clinical Debridement Subcutaneous Subcutaneous Subcutaneous -Tissue Removed Subcutaneous Subcutaneous Subcutaneous -Post Debridement (cm) - Length 3.2 2.5 3.3 -Post Debridement (cm) - Width 6.0 6.4 5.6 -Post Debridement (cm) - Depth 0.4 0.2 0.3 -Total Square (Post) (cm) 19.20 16.00 18.48 -Area of Debridement (cm) - Length 3.0 2.5 3.3 -Area of Debridement (cm) - Width 6.0 6.4 5.6 -Total Square (Area) (cm) 18.00 16.00 18.48 -Tunneling No Yes No -Tunneling Position (O'clock) 2 -Tunneling Distance (cm) 1 -Undermining/Tunneling No No Yes -Undermining/Tunneling Starts (O'clock 2 ) -Undermining/Tunneling Ends (O'clock) 5 -Maximum Distance (cm) 0.3 -Circular Undermining No No No -Wound/Ulcer Outcome Not Healed Not Healed Not Healed -Ulcer Cleansing Rinsed/ Rinsed/ Rinsed/ Irrigated with Irrigated with Irrigated with Saline Saline Saline -Foul Odor after Cleansing No No No -Bioengineered Tissue Yes Yes No -Type of Bioengineered Tissue Epifix Mesh Epifix Mesh -Expiration Date 08/15/24 08/15/24 -Product Lot Number [id number] -Percent Used 100 100 -Saline Lot Number [id number] -Bleeding Controlled with Pressure Pressure Pressure -Offloading No No No -Treatment Response Procedure Procedure Tolerated Well Tolerated Well -Debridement - Subq, 1st 20sq cm No No Yes -Debridement, SubQ, ea addt'l 20sq cm 1 or part thereof -Apply Skin Sub - 1st 25 sq cm - Legs 1 1 -Epifix Mesh (per sq cm) 11 11 Pain Scale: 0-10 Numeric Is Patient Pain Free? Yes Yes Yes 01/13/20 09:59 Wound Center Nurse 2 #7 R Lower Side -Time -Correct Patient No -Correct Side, Site, Position No -Correct Procedure No -Procedure Performed No -Type of Procedure -Clinical Debridement -Tissue Removed -Post Debridement (cm) - Length -Post Debridement (cm) - Width -Post Debridement (cm) - Depth -Total Square (Post) (cm) -Area of Debridement (cm) - Length -Area of Debridement (cm) - Width -Total Square (Area) (cm) -Tunneling -Undermining/Tunneling -Circular Undermining No -Wound/Ulcer Outcome Not Healed -Ulcer Cleansing -Foul Odor after Cleansing -Bioengineered Tissue -Bleeding Controlled with -Offloading -Treatment Response -Debridement - Subq, 1st 20sq cm 6. L lumbar back -Time 10:00 -Correct Patient Yes -Correct Side, Site, Position Yes -Correct Procedure Yes -Procedure Performed Yes -Type of Procedure Debridement -Clinical Debridement Subcutaneous -Tissue Removed Subcutaneous -Post Debridement (cm) - Length 1.5 -Post Debridement (cm) - Width 4.5 -Post Debridement (cm) - Depth 0.2 -Total Square (Post) (cm) 6.75 -Area of Debridement (cm) - Length 1.5 -Area of Debridement (cm) - Width 4.5 -Total Square (Area) (cm) 6.75 -Tunneling No -Tunneling Position (O'clock) -Tunneling Distance (cm) -Undermining/Tunneling No -Undermining/Tunneling Starts (O'clock ) -Undermining/Tunneling Ends (O'clock) -Maximum Distance (cm) -Circular Undermining No -Wound/Ulcer Outcome Not Healed -Ulcer Cleansing Rinsed/ Irrigated with Saline -Foul Odor after Cleansing No -Bioengineered Tissue No -Type of Bioengineered Tissue -Expiration Date -Product Lot Number -Percent Used -Saline Lot Number -Bleeding Controlled with Pressure -Offloading No -Treatment Response Procedure Tolerated Well -Debridement - Subq, 1st 20sq cm Yes -Debridement, SubQ, ea addt'l 20sq cm or part thereof -Apply Skin Sub - 1st 25 sq cm - Legs -Epifix Mesh (per sq cm) Pain Scale: 0-10 Numeric Is Patient Pain Free? Yes WC - Nurse 3 - General Ulcer D/C NN Start: 12/24/19 10:10 Freq: Status: Active Protocol: Activity Type Activity Date Activity User E-Sign Co-Sign Detail Recorded Client Recorded Date Recorded By Document 12/24/19 12:26 JF [id number] 12/24/19 12:33 JF Document 12/30/19 09:52 DL [id number] 12/30/19 09:55 DL Document 01/06/20 10:08 [facility] [id number] 01/06/20 10:09 [facility] Document 01/13/20 10:12 [facility] [id number] 01/13/20 10:13 [facility] 12/24/19 12/30/19 01/06/20 12:26 09:52 10:08 Pain Scale: 0-10 Numeric Is Patient Pain Free? Yes Yes Yes Vital Signs Pulse Rate (60-100) Pulse Location Respiratory Rate (12-18) Respiratory rate source Oxygen Delivery Method Blood Pressure (90/60-120/80) Blood Pressure Mean (mm Hg) Source Position Blood Pressure Location Wound Care Nurse 3 #7 R Lower Side -Ulcer Cleansing Rinsed/ Rinsed/ Rinsed/ Irrigated with Irrigated with Irrigated with Saline Saline Saline -Foul Odor after Cleansing No No No -Primary Dressing Applied Aquacel AG 4x4 Aquacel AG 4x4 Aquacel AG 4x4 -Primary Dressing Covered/Secured with Dry Gauze, Dry Gauze, Secured with Secured with Secured with Tape,Other Tape Tape -Other Covering abd -Aquacel AG 4x4 1 1 1 -Aquacel AG 2x2 6. L lumbar back -Ulcer Cleansing Rinsed/ Rinsed/ Rinsed/ Irrigated with Irrigated with Irrigated with Saline Saline Saline -Foul Odor after Cleansing No No No -Primary Dressing Applied C Hydrogel ($), NonAdherent Contact Layer -Other Dressing -Primary Dressing Covered/Secured with Dry Gauze,Other Dry Gauze,Other Secured with Tape,Other -Other Covering abdominal pad Epifix abd Treatment Response Procedure Procedure Tolerated Well Tolerated Well WC - Visit Discharge Discharge Condition Stable Stable Stable Ambulatory Status Ambulatory Ambulatory Ambulatory Transportation Private Auto Private Auto Private Auto Medication Reconcilliation completed & Yes provided to patient/care provider Clinical Summary of Care Provided Yes 01/13/20 10:12 Pain Scale: 0-10 Numeric Is Patient Pain Free? Vital Signs Pulse Rate (60-100) 65 Pulse Location Monitor Respiratory Rate (12-18) 16 Respiratory rate source Observation Oxygen Delivery Method Room Air Blood Pressure (90/60-120/80) 128/73 H Blood Pressure Mean (mm Hg) 91 Source Monitor Position Sitting Blood Pressure Location Right Arm Wound Care Nurse 3 #7 R Lower Side -Ulcer Cleansing Rinsed/ Irrigated with Saline -Foul Odor after Cleansing No -Primary Dressing Applied Aquacel AG 2x2 -Primary Dressing Covered/Secured with Secured with Tape,Other -Other Covering abd -Aquacel AG 4x4 -Aquacel AG 2x2 1 6. L lumbar back -Ulcer Cleansing Rinsed/ Irrigated with Saline -Foul Odor after Cleansing No -Primary Dressing Applied NonAdherent Contact Layer, Other -Other Dressing hydrogel -Primary Dressing Covered/Secured with Secured with Tape,Other -Other Covering abd Treatment Response Procedure Tolerated Well WC - Visit Discharge Discharge Condition Stable Ambulatory Status Ambulatory Transportation Private Auto Medication Reconcilliation completed & provided to patient/care provider Clinical Summary of Care Provided Wound debrided: #6 Left lateral middle back. Laterality: Left Wound Grade/Stage: 2. Type of Debridement: Excisional debridement Anesthesia Used: 4% Lidocaine Solution Depth: Down to and including healthy tissue, in the subcutaneous layer Percentage of wound debrided: 100 Instrument Used: 3mm curette Tissue Removed: subcutaneous tissue. Severity: Fat Layer Exposed Amount of bleeding with debridement: Mild Bleeding Controlled with: Pressure Patient tolerated procedure well - Additional Wound Wound debrided: #7 Right flank. Laterality: Right Wound Grade/Stage: 2. Patient tolerated procedure: - - no debridement was done today as he is having surgery on 01/17/20 with excisional debridement of this ulcer with complex secondary wound closure. Assessment/Plan Active Problems (Last Reviewed 12/03/19 @ 08:[address] 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 Diabetic ulcer right lateral middle back, healed. 2. Nonhealing diabetic ulcer left lateral middle back. 3. Nonhealing diabetic ulcer right posterior flank. 4. Diabetes mellitus. 5. s/p surgical preparation right lateral middle back with incision and drainage and excisional debridement nonhealing infected diabetic ulcer (66 cm2) and surgical preparation left lateral middle back with incision and drainage and excisional debridement nonhealing infected diabetic ulcer (137.75 cm2). Plan: Continue Collagen Hydrogel with Adaptic dressing changes to the left lateral middle back ulcer. 10 applications of Epifix to the left middle lateral back ulcer have been completed. Continue daily silver dressing changes to right flank ulcer. Wound culture from 11/04/19 from the right flank was positive for Staphylococcus epidermidis and Corynebacterium amycolatum. He was placed on Levaquin and Augmentin and has finished them. Labs from 07/22/19- Prealbumin was 18.7. Encourage nutritional supplementation with protein to help the healing process. HgbA1c was 5.9. Since the right flank ulcer has persistent pain and has reached a plateau in the healing process, will proceed with operative debridement and complex secondary wound closure on 01/17/2020. It will be under general anesthesia on an outpatient basis. A drain will be placed along with AmnioFill placental connective tissue powder to help with the healing process. Patient was informed of the risks and complications of the procedure including alternatives to surgery. These were discussed with him personally. He voices understanding and wishes to proceed. Follow-up 2 weeks. [id number]: [id number] Pooja subq tissue 20 sq cm/< - ICD-10 - L98.492, L03.312, E11.9, T86.829
== END 2020-01-15 23:59 ==
LOC: WC 09:15
PROVIDERS: Family Provider Family Medicine; PCP Family Medicine; Referring Provider Nurse Practitioner Family; Visit Provider Nurse Practitioner Family
DX: L98.492 Non-pressure chronic ulcer of skin of other sites with fat layer exposed (principal); T81.31XA Disruption of external operation (surgical) wound, not elsewhere classified, initial encounter; E11.9 Type 2 diabetes mellitus without complications
CPT/HCPCS: 11042; 11045; 15271; Q4186

== ENCOUNTER 2020-01-17 10:23 | Day surgery (SDC) | payer OTHER, SELFPAY ==
[2019-12-30 08:52] VITALS: BMI 28.2
[2020-01-10 09:09] LABS: Hematocrit 40.7 % (40-54); Mean Corp Hgb Conc 31.9 g/dL (32-36); Mean Corpuscular Hgb 28.9 pg (27.0-32.0); Mean Corpuscular Volume 90.4 fL (80-94); Mean Platelet Vol. 9.2 fl (6.2-12.0); Platelet Count 218 K/mm3 (150-450); RBC Distribution Width CV 13.4 % (11.6-14.6); RBC Distribution Width SD 44.4 fl (35.1-43.9)
--- NOTE | 2020-01-17 09:00 | HP.PCM_ITS ---
History and Physical Date of Admission: 01/17/20 HISTORY OF PRESENT ILLNESS 59 year old man presents with a persistent painful nonhealing ulcer right flank that started out as a donor site for a skin graft to ulcerations on his back. The ulcer has been cultured in the past showing Staphylococcus, most recently in October. He was treated with Levaquin and Augmentin. Wound care has been with Silver dressing changes. The ulcer has gradually increased in size and has had increasing pain as Wound Center debridements have been difficult. He presents today for surgical preparation right flank with excisional debridement nonhealing diabetic ulcer with complex secondary wound closure. PAST MEDICAL HISTORY Nonhealing ulcers right lateral middle back and left lateral middle back Diabetes mellitus Trigger finger, left ring finger Hypertension Neuroma PAST SURGICAL HISTORY surgical preparation right lateral middle back with excision 1.2 cm nonhealing diabetic ulcer and rhomboid transposition skin flap reconstruction (18 cm2) and surgical preparation left lateral middle back with excision 3 cm nonhealing diabetic ulcer and rhomboid transposition skin flap reconstruction (50 cm2) - 06/12/18 surgical preparation left lateral middle back with excisional debridement nonhealing diabetic ulcer and reconstruction with placement of Thera-skin allograft (56 cm2) and AmnioFill Placental Connective Tissue Powder (500 mg) and placement of TAYLOR NPWT and surgical preparation right lateral middle back with excisional debridement nonhealing diabetic ulcer and reconstruction with placement of Thera-skin allograft (15 cm2) and AmnioFill Placental Connective Tissue Powder (250 mg) and placement of TAYLOR NPWT - 12/25/18 Surgical preparation right lateral middle back with excision nonhealing diabetic ulcer. 2. Reconstruction with STSG from right posterior flank (21 cm2) and placement AmnioFill Placental Connective Tissue Powder (250 mg) and placement TAYLOR NPWT. 3. Surgical preparation left lateral middle back with excision nonhealing diabetic ulcer. 4. Reconstruction with STSG from left posterior flank (48 cm2) and placement of AmnioFill Placental Connective Tissue Powder (500 mg) and placement of TAYLOR NPWT - 02/18/19 Surgical preparation right lateral middle back with incision and drainage and excisional debridement nonhealing infected diabetic ulcer (66 cm2). 2. Surgical preparation left lateral middle back with incision and drainage and excisional debridement nonhealing infected diabetic ulcer (137.75 cm2) - 07/23/19 ALLERGIES No Known Allergies MEDICATIONS Albuterol. Diclofenac. Doxycycline. Acidophilus. FAMILY HISTORY Grandfather - Cancer Father - Prostate cancer Grandfather - CVA (cerebral vascular accident) SOCIAL HISTORY Smoking Status: Never smoker REVIEW OF SYSTEMS Constitutional: Denies: Chills, Fever, Weight Change. Eyes: Denies: Pain, Vis ion Change. HEENT: Denies: Difficulty Hearing, Difficulty Swallowing, Sinus Congestion. Cardiovascular: Denies: Chest Pain, Palpitations. Respiratory: Denies: Cough, Shortness of Breath. Gastrointestinal: Denies: Diarrhea, Nausea, Vomiting. Genitourinary: Denies: Dysuria, Hematuria. Skin: Reports: Wounds - See HPI. Endocrine: Denies: Heat/ Cold Intolerance, Polydipsia, Polyuria. Hematologic/ Lymphatic: Denies: Easy Bruising, Easy Bleeding PHYSICAL EXAMINATION General: Alert, Oriented x3 HEENT: PERRLA, EOMI Oral: Moist Mucosa Neck: Supple Lungs: Clear to auscultation Cardiovascular: Regular rate, Regular Rhythm Abdomen: Soft, Non-Distended. On the right flank is a nonhealing ulcer that measures 7 x 3 cm. Tender to palpation. No purulent drainage. No fluctuance. Extremities: No clubbing, No cyanosis, No edema Lymphatic: - - no axillary adenopathy. Neurological: Cranial nerves II-XII grossly intact Psych/Mental Status: Normal Affect, Appropriate ASSESSMENT 1. Nonhealing painful infected diabetic ulcer right flank. 2. History of MRSE. 3. Diabetes mellitus. PLAN Recommend surgical preparation right flank with excisional debridement nonhealing painful infected diabetic ulcer right flank with complex secondary wound closure. Tissue will be sent to Pathology for analysis to rule out carcinoma and to Microbiology for culture. A positive culture will necessitate antibiotic therapy. He has had MRSE in the past and will treat him perioperatively with Vancomycin. Surgery will be done under general anesthesia on an outpatient basis. He will have a drain in for several days and will wear an abdominal binder to minimize seroma formation. Will also place AmnioFill Placental Connective Tissue Powder in the wound to help with the healing process. His last HgbA1c was 5.9 on 12/03/19. Patient was informed of the risks and complications of the procedure including alternatives to surgery. These were discussed with the patient personally. Patient voices understanding and wishes to proceed. We discussed the current risks associated with COVID-19. While it is understood that there is a community spread of COVID-19, the risk of jennifer COVID-19 while at [facility] ([facility]) is very low; however, the risk cannot be completely mitigated because of the community spread of the disease. We discussed in detail the risk of exposure to and/or potential harm posed by the COVID-19 virus with having a surgery/procedure at this time versus the risk of delaying the surgery/procedure. It is not possible to know either the risk of delaying the surgery or procedure or chance of getting an infection with perfect accuracy, but a joint decision was made to proceed at this time with the scheduled surgery/procedure as indicated on the consent form. Patient was notified that we will need to comply with any screening or testing [facility] wishes to perform or that surgery may be delayed for any positive results. Discussed with the patient that I was tested for COVID-19 on 10/17/19 which was negative and on 10/31/19 which was negative and on 11/14/19 which was negative and on 11/28/19 which was negative and on 12/12/19 which was negative and on 01/02/20 which was negative. My testing regimen at this time is to be COVID-19 tested every 2 weeks or so. Procedure Criteria Procedure Type: Elective COVID Risk Discussion: The surgeon/proceduralist and patient have discussed in detail the risk of exposure to and/or potential harm posed by the COVID-19 virus with having a surgery/procedure at this time versus the risk of delaying the surgery/procedure. It is not possible to know either the risk of delaying the surgery or procedure or chance of getting an infection with perfect accuracy, but a joint decision was made between the patient and the surgeon/proceduralist to proceed at this time with the scheduled surgery/procedure as indicated on the consent form.
[2020-01-17 10:48] VITALS: BP 111/73; PULSE 73; RESP 16; TEMP 36.8; O2SAT 98; BMI 28.8
[2020-01-17] MEDS: Lactated Ringers 1,000 ML 75 ML IV (11:15)
--- NOTE | 2020-01-17 11:45 | UL_PTH ---
PATIENT: BILL JACQUES LOC[place] [facility] [place][id number] AGE/SX: 59/M ROOM: RE01/17/[address]: Dr. David Lemus MD : 1960 BED: DIS: 01/17/2020 SPEC #: [id number] RECD: 01/17/20 13:44 STATUS: LORAINE FILI #: [id number] DELMY: 01/17/20 11:[address]: David Lemus DEPT: SURGICAL PATHOLOGY RECD BY: Sheila Martinez ENTERED: 01/20/20 07:05 SP TYPE: ULCER OTHR DR: Dr. Ryan Gandhi, DO Tissues: ULCER Procedures: Surgery Specimen Level III HEADER OPERATION: Surgical prep flank with excisional debridement infected ulcer PRE-OP DIAGNOSIS: Nonhealing, painful, infected diabetic ulcer right flank, history of MRSE TISSUE SUBMITTED: Right flank, suture at 12 o'clock MICROSCOPIC DIAGNOSIS Skin and soft tissue of right flank, excision: Ulceration with associated acute and chronic inflammation and granulation. AM:js 01/21/20 MICROSCOPIC DESCRIPTION Slides are reviewed. GROSS DESCRIPTION Received in fixative is one container labeled with the patient's name and designated right flank skin and soft tissue. The specimen consists of an irregular fragment of light sharma excised skin measuring 13 x 4 cm that is excised to a depth of 4 cm. A suture is noted identifying the 12 o'clock position. The cutaneous surface contains an ulcer measuring 5.5 x 2 x 1 cm. Serial sections do not reveal mass lesions. Master Pilot sections are submitted in two cassettes. / AM:js 01/20/20 TC:2 CPT: 91717
--- NOTE | 2020-01-17 13:14 | PCM.OPRPT ---
Report of Operation Date of Procedure: 01/17/20 Pre-Operative Diagnosis: 1. Nonhealing painful infected diabetic ulcer right flank. 2. History of MRSE. 3. Diabetes mellitus. Post-Operative Diagnosis: Same. Surgery/Procedure Performed:: Surgical preparation right flank with excisional debridement nonhealing painful infected diabetic ulcer right flank with 17 cm complex secondary wound closure. Description of Surgical Findings:: 59 year old man presents with a persistent painful nonhealing ulcer right flank that started out as a donor site for a skin graft to ulcerations on his back. The ulcer has been cultured in the past showing Staphylococcus, most recently in October. He was treated with Levaquin and Augmentin. Wound care has been with Silver dressing changes. The ulcer has gradually increased in size and has had increasing pain as Wound Center debridements have been difficult. He presents today for surgical preparation right flank with excisional debridement nonhealing diabetic ulcer with complex secondary wound closure. Patient was informed of the risks and complications of the procedure including alternatives to surgery. These were discussed with the patient personally. Patient voices understanding and wishes to proceed. I used AmnioFill Placental Connective Tissue Powder, 1000 mg. Catalog Number - [id number]. Lot Number - [id number]. Expiration - October 16, 2023. I used Marlin absorbable hemostat. Reference Number - [id number]. Lot Number - [id number]. Expiration - September 11, 2024. psychiatric lpn: Reymundo Keller. Type of Anesthesia:: General Specimen's removed: Nonhealing painful infected diabetic ulcer right flank to Pathology and Microbiology. Drains: Romeo. Estimated Blood Loss (mL): 20 ml. Description of Procedure: Patient was taken to OR in supine position and was placed under general anesthesia. He was then placed in the lateral position. The right flank ulcer was prepped and draped in the usual fashion. SCD's were placed for DVT prophylaxis. Perioperative antibiotics were given intravenously. For the procedure, I wore an N95 mask and wore proper eyewear protection. I marked out a horiziontal ellipse around the nonhealing ulcer. Using xylocaine with epinephrine, the right flank ulcer was infiltrated. After waiting 5 minutes for the anesthetic to take effect, I excised the nonhealing ulcer in a horizontal elliptical fashion through the subcutaneous tissue and Artur's fascia down to the abdominal wall fascia. A suture was marked at 12 oclock position for pathology orientation. The ulcer was then sent to Pathology for analysis to rule out carcinoma. A small piece of the ulcer was excised and sent to Microbiology for culture. A positive culture will necessitate antibiotic therapy. The wound was irrigated with Irrisept 0.05% chlorhexidine solution and followed with saline irrigation. Hemostasis was obtained with electrocautery. I elevated the skin flaps for 2 cm to aid in would closure with minimal tension. At the base of the wound, I placed AmnioFill placental connective tissue powder to aid in wound healing. I used 1000 mg. A size 15 Romeo drain was placed through separate stab incision anteriorly and secured to the skin edge with 3-0 Nylon suture. I closed the wound with a complex secondary closure with 2-0 Vicryl figure of eight interrupted sutures for the underlying Artur's fascia. The deep dermis and subcutaneous tissue was approximated with 3-0 Monocryl interrupted sutures. At the time of the Monocryl sutures, I sprayed the subcutaneous tissue with Marlin absorbable hemostat to minimize seroma formation postoperatively. The skin was approximated with 3-0 V lock unidirectional barbed running subcuticular suture. This was followed by Histoacryl skin tissue adhesive. The length of the complex secondary wound closure was 17 cm. Kerlix gauze was applied to the incision followed by a double francisco wrap for compression to minimize seroma formation. Patient tolerated the procedure well and was sent to PACU in satisfactory condition. Patient will be sent home on antibiotics and pain medication. Patient will followup in a couple weeks at the [facility] Center for a wound check and for discussion of the pathology report and to remove the drain. When the microbiology report is available, will send antibiotic script to his Pharmacy if positive culture. Grafts/Implants Used: AmnioFill placental connective tissue powder and Marlin. - Complications None. - Admit VTE Documentation VTE Present on Admission: No VTE Mechan Device Prophylaxis: SCD's VTE Pharm Prophylaxis ordered?: No Surgery Charges CPT - 69782 ICD-10 - L98.492, A49.8, E11.9 37815 L98.492, A49.8, E11.9
[2020-01-17 13:27] VITALS: BP 104/59; BP 111/73; PULSE 71; RESP 16; TEMP 36.3; O2SAT 93
--- NOTE | 2020-01-17 13:29 | PCM.DC ---
You will use the following diet at home:: Calorie/Carbohydrate Controlled (specify 1200, 1400, etc), Other - encourage nutritional supplementation with protein to help the healing process. Discharge Activity: May not drive while taking narcotic pain medications., May Not Shower - until the drain is removed., - - no heavy lifting. May resume sexual activity in: No Restrictions Weight Bearing Status: Weight bearing as tolerated Lifting Restrictions: 20 lbs. Call your doctor if your incision/area has: Continuous Slow Oozing, Sudden Increased Bleeding, Increased Pain/ Swelling, Increased Redness, Foul Smelling Discharge, Swelling at the incision site Call your doctor if you observe: Fever of 101 or Higher, Coldness, Increased Pain, Shortness of breath, Chest pain, Calf discomfort, Uncontrolled pain Suture Line Care: - - dry dressings daily after the operative dressing is removed in two days followed by compression francisco wrap. Change Dressing in (Days):: 2 - dry dressings daily followed by compression francisco wrap. Cleanse incision/area with: - - may get incision wet in the shower after the drain is removed. Drain: Suction - janet drain to bulb suction. empty and record output daily. Allergies/Adverse Reactions: Allergies No Known Allergies Allergy (Verified 01/09/20 09:09) Medications to take at Discharge diclofenac sodium 1 % topical gel 2 g TOPICAL DAILY PRN PRN 04/25/19 Lactobacillus acidophilus 500 million cell-fructooligosac 50 mg tablet 1 tab PO BID #60 tab 10/08/19 albuterol sulfate 90 mcg/actuation aerosol inhaler 2 puff INHALATION Q6H PRN #8.5 g 12/03/19 Lisinopril 5 mg PO DAILY 01/09/20 Doxycycline [Vibramycin] 100 mg PO BID #42 cap 01/17/20 Oxycodone HCl/Acetaminophen [Oxycodone-Acetaminophen 5-325] 1 tab PO .[id number] PRN PRN 7 Days #28 tab 01/17/20 The following prescriptions were given: Oxycodone HCl/Acetaminophen [Oxycodone-Acetaminophen 5-325] 1 tab PO .[id number] PRN PRN 7 Days #28 tab PRN Reason: pain (scale score 7-10) [id number] Doxycycline [Vibramycin] 100 mg PO BID #42 cap Transmission Status: Pending to [id number] Primary Care Physician: Ryan Gandhi DO [Primary Care Provider] - Test Results: Test results from this visit will be discussed in further detail at your follow-up appointment, if applicable. Please Follow Up With: Wound Center on Monday01/20/20. - to see Wound Center Provider. Please Follow Up With: David Lemus MD - call [phone] for appt. When: Monday02/03/20 at Wound Center. Proposed Discharge Date: 01/17/20
[2020-01-17 13:30] VITALS: BP 100/58; BP 111/73; PULSE 77; RESP 16; O2SAT 99
[2020-01-17 13:45] VITALS: BP 106/61; BP 111/73; PULSE 70; RESP 16; O2SAT 97
[2020-01-17 13:55] VITALS: BP 104/64; BP 111/73; PULSE 72; RESP 16; TEMP 36.2; O2SAT 98
[2020-01-17] MEDS: Acetaminophen 325 MG Tablet PO (14:45)
[2020-01-17] MEDS: oxyCODONE 5 MG Tablet PO (14:45)
[2020-01-17 15:26] VITALS: BP 111/73; BP 117/66; PULSE 68; RESP 16; TEMP 36.3; O2SAT 100
== END 2020-01-17 15:28 | disposition home or self-care (01) ==
LOC: SDC 10:24 → AC 10:24
PROVIDERS: Anesthesiology; PCP Family Medicine; Referring Provider Surgery; Visit Provider Surgery
PROC: (CPT 11406; principal; 2020-01-17 11:30)
DX: E11.622 Type 2 diabetes mellitus with other skin ulcer (principal); L98.499 Non-pressure chronic ulcer of skin of other sites with unspecified severity; I10 Essential (primary) hypertension; G47.30 Sleep apnea, unspecified; Z79.899 Other long term (current) drug therapy; Z11.59 Encounter for screening for other viral diseases
CPT/HCPCS: 00400; 11406; 12035; 36415; 85027; 87015; 87070; 87075; 87102; 87116; 87205; 87206; 87635; 88304; C9803; J7040; J7120; J2405; U0003

== ENCOUNTER 2020-02-10 09:15 | Outpatient (RCR) | payer OTHER, SELFPAY ==
[2020-01-16 00:27] VITALS: BP 128/73; PULSE 65; RESP 16; TEMP 36.8; O2SAT 97
[2020-01-20 11:41] VITALS: BP 118/63; PULSE 70; TEMP 36.1; O2SAT 16; BMI 28.8
[2020-01-27 09:42] VITALS: BP 129/72; PULSE 76; RESP 16; BMI 28.8
--- NOTE | 2020-01-27 12:11 | PN.PCM_ITS ---
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 History of Wound: Surgery 01/17/2020?surgical preparation right flank with excisional debridement of nonhealing painful infected diabetic ulcer of the right flank with 7 cm complex secondary wound closure. The surgical incision is well approximated. The patient is emptying approximately 25 mL's per day of serosanguineous drainage from his MARIELA drain. He reports improvement in his right flank pain status post surgery. Surgery 07/23/19 - 1. Surgical preparation right lateral middle back with incision and drainage and excisional debridement nonhealing infected diabetic ulcer (66 cm2). 2. Surgical preparation left lateral middle back with incision and drainage and excisional debridement nonhealing infected diabetic ulcer (137.75 cm2). Wound care - he has completed 10 applications of Epifix to the left lateral middle back ulcer; will continue daily collagen hydrogel with Adaptic to this ulcer. He had persistent pain in the right flank ulcer and a wound culture was obtained on 09/23/19 and it showed Staphylococcus aureus. He was started on Doxycycline and has finished them. Repeat wound culture on 11/04/19 showed Staphylococcus epidermidis and Corynebacterium amycolatum. He was placed on Levaquin and Augmentin and has finished them. Operative cultures from 07/23/19 were positive for resistant Staphylococcus epidermidis (MRSE). He was started on IV Vancomycin since he had been on Doxycyline, Cleocin, and Zyvox in the past for the persistent Staph infections. He developed compromise to the healing skin grafts that necessitated HBO Treatments which he tolerated. Prealbumin from 07/22/19 was 18.7. He underwent another surgery on 01/17/2020 for his nonhealing, painful, infected diabetic ulcer of the right flank. Encourage nutritonal supplementation with protein to help the healing process. His HgbA1c from 07/22/19 was 5.9. Today he denies fever. His appetite is good. Progress of Wound: Patient underwent surgical excisional debridement of his nonhealing painful infected diabetic ulcer of the right flank with a 7 cm complex secondary wound closure on 01/17/2020. His MARIELA drain is intact and drains approximately 25 mL's per day of serosanguineous drainage. His surgical incisio n is well approximated without signs of infection. His right flank pain has greatly diminished since surgery. The right lateral middle back ulcer remains healed. The left lateral middle back ulcer has improved in appearance. - Physical Exam Vital Signs Temp Pulse Resp BP Pulse Ox 97.0 F L 76 16 129/72 H 16 01/20/20 11:41 01/27/20 09:42 01/27/20 09:42 01/27/20 09:42 01/20/20 11:41 General: Alert, Cooperative, No apparent distress HEENT: Atraumatic, Normocephalic Oral: Moist Mucosa Neck: Supple Lungs: Normal air movement Extremities: Capillary Refill Less than 3 Seconds Skin: Ulcer/ Wound - Left lateral back ulcer with subcutaneous layer exposed, and healthy granulation tissue present. There is a small amount of slough present. There is no mayra-ulcer erythema, edema, warmth, or tenderness. There is no purulent/malodorous drainage., Incision - Surgical incision well approximated with no surrounding erythema, warmth, edema or tenderness. MARIELA drain is in place and draining serosanguineous fluid. Wound Measurements and Assessment WC - Nurse 1 - General Ulcer Measurement Start: 01/20/20 11:40 Freq: Status: Active Protocol: Activity Type Activity Date Activity User E-Sign Co-Sign Detail Recorded Client Recorded Date Recorded By Document 01/27/20 09:42 [facility] [id number] 01/27/20 09:43 [facility] 01/27/20 09:42 Wound Center Nurse 1 [Ulcer Assessment] #7 R Lower Side -Combined with other wound No -Current Size (cm) - Length 0.1 -Current Size (cm) - Width 0.1 -Current Size (cm) - Depth 0.1 -Total Square Cm 0.01 6. L lumbar back -Combined with other wound No -Current Size (cm) - Length 1.1 -Current Size (cm) - Width 4.5 -Current Size (cm) - Depth 0.2 -Total Square Cm 4.95 -Photo Taken No -Epithelialization Small 1-33% -Tunneling No -Undermining/Tunneling No -Circular Undermining No -Exudate Amt Small -Exudate Type Serosanguineous -Wound Margin Distinct, Outline Attached -Granulation Amt Large (67-100%) -Granulation Quality Red -Slough/Fibrin Yes -Necrosis Amt Small (1-33%) -Necrotic Tissue Type Adherent Slough -Texture (Mayra-wound Skin Appearance) Assessed, Scarring -Moisture (Mayra-wound Skin Appearance Assessed ) -Color (Mayra-wound Skin Appearance) Assessed -Temperature (Mayra-wound Skin No Abnormality Appearance) (Pt Warm) -Tenderness on Palpation (Mayra-wound Yes Skin Appearance) -Ulcer Cleansing Rinsed/ Irrigated with Saline -Foul Odor after Cleansing No -Anesthetic Used 5% Lidocaine Gel WC - Nurse 2 - General Ulcer CM Notes Start: 01/20/20 11:40 Freq: Status: Active Protocol: Activity Type Activity Date Activity User E-Sign Co-Sign Detail Recorded Client Recorded Date Recorded By Document 01/27/20 10:07 [facility] [id number] 01/27/20 10:09 [facility] 01/27/20 10:07 Wound Center Nurse 2 [Procedure/Treatment] #7 R Lower Side -Correct Patient No -Correct Side, Site, Position No -Correct Procedure No -Procedure Performed No -Debridement - Subq, 1st 20sq cm No 6. L lumbar back -Time 10:08 -Correct Patient Yes -Correct Side, Site, Position Yes -Correct Procedure Yes -Procedure Performed Yes -Type of Procedure Debridement -Clinical Debridement Subcutaneous -Tissue Removed Subcutaneous -Post Debridement (cm) - Length 1.5 -Post Debridement (cm) - Width 4.4 -Post Debridement (cm) - Depth 0.4 -Total Square (Post) (cm) 6.60 -Area of Debridement (cm) - Length 1.5 -Area of Debridement (cm) - Width 4.4 -Total Square (Area) (cm) 6.60 -Tunneling No -Undermining/Tunneling No -Circular Undermining No -Wound/Ulcer Outcome Not Healed -Ulcer Cleansing Rinsed/ Irrigated with Saline -Foul Odor after Cleansing No -Bioengineered Tissue No -Bleeding Controlled with Pressure -Offloading No -Treatment Response Procedure Tolerated Well -Debridement - Subq, 1st 20sq cm Yes [See Physician Procedure note for Specifics] Pain Scale: 0-10 Numeric [Pain] -Is Patient Pain Free? Yes - Nurse 3 - General Ulcer D/C NN Start: 01/20/20 11:40 Freq: Status: Active Protocol: Activity Type Activity Date Activity User E-Sign Co-Sign Detail Recorded Client Recorded Date Recorded By Document 01/27/20 10:25 [facility] [id number] 01/27/20 10:25 [facility] 01/27/20 10:25 Wound Care Nurse 3 [Wound Dressing] #7 R Lower Side -Primary Dressing Covered/Secured Secured with with Tape,Other -Other Covering abd pads 6. L lumbar back -Ulcer Cleansing Rinsed/ Irrigated with Saline -Foul Odor after Cleansing No -Primary Dressing Applied NonAdherent Contact Layer, Other -Other Dressing hydrogel -Primary Dressing Covered/Secured Secured with with Tape,Other -Other Covering abd pad [Post Procedure Tolerated] -Treatment Response Procedure Tolerated Well Pain Scale: 0-10 Numeric [Pain] -Is Patient Pain Free? Yes - Visit Discharge [Visit Discharge Information] -Discharge Condition Stable -Ambulatory Status Ambulatory -Transportation Private Auto -Accompanied by Psych/Mental Status: Normal Affect, Appropriate Debridement Note Post-Debridement Measurements/Treatment - Nurse 2 - General Ulcer CM Notes Start: 01/20/20 11:40 Freq: Status: Active Protocol: Activity Type Activity Date Activity User E-Sign Co-Sign Detail Recorded Client Recorded Date Recorded By Document 01/27/20 10:07 [id number] 01/27/20 10:09 [facility] 01/27/20 10:07 Wound Center Nurse 2 #7 R Lower Side -Correct Patient No -Correct Side, Site, Position No -Correct Procedure No -Procedure Performed No -Debridement - Subq, 1st 20sq cm No 6. L lumbar back -Time 10:08 -Correct Patient Yes -Correct Side, Site, Position Yes -Correct Procedure Yes -Procedure Performed Yes -Type of Procedure Debridement -Clinical Debridement Subcutaneous -Tissue Removed Subcutaneous -Post Debridement (cm) - Length 1.5 -Post Debridement (cm) - Width 4.4 -Post Debridement (cm) - Depth 0.4 -Total Square (Post) (cm) 6.60 -Area of Debridement (cm) - Length 1.5 -Area of Debridement (cm) - Width 4.4 -Total Square (Area) (cm) 6.60 -Tunneling No -Undermining/Tunneling No -Circular Undermining No -Wound/Ulcer Outcome Not Healed -Ulcer Cleansing Rinsed/ Irrigated with Saline -Foul Odor after Cleansing No -Bioengineered Tissue No -Bleeding Controlled with Pressure -Offloading No -Treatment Response Procedure Tolerated Well -Debridement - Subq, 1st 20sq cm Yes Pain Scale: 0-10 Numeric Is Patient Pain Free? Yes - Nurse 3 - General Ulcer D/C NN Start: 01/20/20 11:40 Freq: Status: Active Protocol: Activity Type Activity Date Activity User E-Sign Co-Sign Detail Recorded Client Recorded Date Recorded By Document 01/20/20 11:41 DL [id number] 01/20/20 12:06 DL Document 01/27/20 10:25 [facility] [id number] 01/27/20 10:25 [facility] 01/20/20 01/27/20 11:41 10:25 Vital Signs Temperature (97.8 F-99.1 F) 97.0 F L Temperature Source Temporal Pulse Rate (60-100) 70 Pulse Location Monitor Pulse Oximetry 16 Oxygen Delivery Method Room Air Blood Pressure (90/60-120/80) 118/63 Blood Pressure Mean (mm Hg) 81 Source Monitor Comment R Side Post Op 3days, Incision well approx, MARIELA intact Pain Scale: 0-10 Numeric Is Patient Pain Free? Yes Yes Wound Care Nurse 3 #7 R Lower Side -Ulcer Cleansing Wound Cleanser -Foul Odor after Cleansing No -Primary Dressing Covered/Secured with Dry Gauze, Secured with Secured with Tape,Other Tape -Other Covering abd pads 6. L lumbar back -Ulcer Cleansing Wound Cleanser Rinsed/ Irrigated with Saline -Foul Odor after Cleansing No No -Primary Dressing Applied C Hydrogel ($) NonAdherent Contact Layer, Other -Other Dressing adaptaic hydrogel -Primary Dressing Covered/Secured with Dry Gauze, Secured with Secured with Tape,Other Tape -Other Covering abd pad Treatment Response Procedure Tolerated Well WC - Visit Discharge Discharge Condition Stable Stable Ambulatory Status Ambulatory Ambulatory Transportation Private Auto Private Auto Accompanied by Notes: SPoke with Radha Reeves. Instructed to Change dresssing to Surgery side for pt and apply hydrogel to Lumbar site. Incision to R side well approximated and intact. MARIELA to suction with small amt Serosanguinous drainage. Denies pain at present. Wound debrided: Left lateral middle back Laterality: Left Type of Debridement: Excisional debridement Anesthesia Used: 4% Lidocaine Solution Depth: in the subcutaneous layer Percentage of wound debrided: 100 Instrument Used: 3mm curette Tissue Removed: Slough and devitalized tissue Severity: Fat Layer Exposed Amount of bleeding with debridement: Mild Bleeding Controlled with: Pressure Patient tolerated procedure well Assessment/Plan Active Problems (Last Reviewed 12/03/19 @ 08:[address] 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 Diabetic ulcer right lateral middle back, healed. 2. Nonhealing diabetic ulcer left lateral middle back. 3. Nonhealing diabetic ulcer right posterior flank, s/p surgical excisional debridement on 01/17/2020. 4. Diabetes mellitus. 5. s/p surgical preparation right lateral middle back with incision and drainage and excisional debridement nonhealing infected diabetic ulcer (66 cm2) and surgical preparation left lateral middle back with incision and drainage and excisional debridement nonhealing infected diabetic ulcer (137.75 cm2). Plan: Continue Collagen Hydrogel with Adaptic dressing changes to the left lateral middle back ulcer. 10 applications of Epifix to the left middle lateral back ulcer have been completed. Continue dry gauze dressings to right flank ulcer. Wound culture from 11/04/19 from the right flank was positive for Staphylococcus epidermidis and Corynebacterium amycolatum. He was placed on Levaquin and Augmentin and has finished them. Labs from 07/22/19- Prealbumin was 18.7. Encourage nutritional supplementation with protein to help the healing process. HgbA1c was 5.9. Follow-up in [address] Lemus. Follow-up sooner should new or concerning symptoms arise. Note: Dragon speech recognition solar sales ambassador software was used to create portions of this document. Sound-alike and misspelled words, as well as other solar sales ambassador errors may be contained in the documentation. [id number]: [id number] Pooja subq tissue 20 sq cm/<
[2020-02-03 09:11] VITALS: BP 117/75; PULSE 81; RESP 16; TEMP 36.5; BMI 28.8
[2020-02-03 09:39] VITALS: BP 106/71; PULSE 78
--- NOTE | 2020-02-03 12:11 | PN.PCM_ITS ---
Type of Wound Date of Service: 02/03/20 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: Nonhealing diabetic ulcer left lateral middle back and nonhealing diabetic ulcer right flank recently closed 01/17/20. History of Wound: Surgery 01/17/2020?surgical preparation right flank with excisional debridement of nonhealing painful infected diabetic ulcer of the right flank with 7 cm complex secondary wound closure. Wound care - dry dressing over incision and drain site followed by abdominal binder. Operative culture - negative. He was discharged on Doxycycline and is finishing them. The surgical incision is well approximated. The patient's drainage is less than 20 ml per day. He reports improvement in his right flank pain status post surgery. Surgery 07/23/19 - 1. Surgical preparation right lateral middle back with incision and drainage and excisional debridement nonhealing infected diabetic ulcer (66 cm2). 2. Surgical preparation left lateral middle back with incision and drainage and excisional debridement nonhealing infected diabetic ulcer (137.75 cm2). Wound care - he has completed 10 applications of Epifix to the left lateral middle back ulcer. He will continue daily collagen hydrogel with Adaptic to this ulcer. He has persistent pain in the right flank ulcer and a wound culture was obtained on 09/23/19 and it showed Staphylococcus aureus. He was started on Doxycycline and has finished them. Repeat wound culture on 11/04/19 showed Staphylococcus epidermidis and Corynebacterium amycolatum. He wa s placed on Levaquin and Augmentin and has finished them. Operative cultures from 07/23/19 were positive for resistant Staphylococcus epidermidis (MRSE). He was started on IV Vancomycin since he had been on Doxycyline, Cleocin, and Zyvox in the past for the persistent Staph infections. He developed compromise to the healing skin grafts that necessitated HBO Treatments which he tolerated. Prealbumin from 07/22/19 was 18.7. Encourage nutritonal supplementation with protein to help the healing process. His HgbA1c from 07/22/19 was 5.9. Today he denies fever. His appetite is good. Progress of Wound: Left lateral middle back ulcer has improved. Right flank ulcer was surgically closed 01/17/20. - Physical Exam Vital Signs Temp Pulse Resp BP Pulse Ox 97.7 F L 78 16 106/71 16 02/03/20 09:11 02/03/20 09:39 02/03/20 09:11 02/03/20 09:39 01/20/20 11:41 Wound Measurements and Assessment WC - Nurse 1 - General Ulcer Measurement Start: 01/20/20 11:40 Freq: Status: Active Protocol: Activity Type Activity Date Activity User E-Sign Co-Sign Detail Recorded Client Recorded Date Recorded By Document 02/03/20 09:11 [facility] [id number] 02/03/20 09:13 [facility] 02/03/20 09:11 Wound Center Nurse 1 [Ulcer Assessment] #7 R Lower Side -Current Size (cm) - Length 0.1 -Current Size (cm) - Width 0.1 -Current Size (cm) - Depth 0.1 -Total Square Cm 0.01 -Photo Taken No -Exudate Amt None Present -Wound Margin Flat & Intact -Granulation Amt Large (67-100%) -Granulation Quality [place] -Necrosis Amt None Present (0 %) -Structure Exposed N/A -Texture (Mayra-wound Skin Appearance) Scarring -Moisture (Mayra-wound Skin Appearance No Abnormality ) -Color (Mayra-wound Skin Appearance) No Abnormality -Temperature (Mayra-wound Skin No Abnormality Appearance) (Pt Warm) -Tenderness on Palpation (Mayra-wound No Skin Appearance) -Ulcer Cleansing Wound Cleanser -Foul Odor after Cleansing No 6. L lumbar back -Current Size (cm) - Length 1.3 -Current Size (cm) - Width 6 -Current Size (cm) - Depth 0.4 -Total Square Cm 7.8 -Photo Taken No -Exudate Amt Small -Exudate Type Serosanguineous -Wound Margin Distinct, Outline Attached -Granulation Amt Large (67-100%) -Granulation Quality Red -Necrosis Amt None Present (0 %) -Structure Exposed N/A -Texture (Mayra-wound Skin Appearance) Scarring -Moisture (Mayra-wound Skin Appearance No Abnormality ) -Color (Mayra-wound Skin Appearance) Rubor -Temperature (Mayra-wound Skin No Abnormality Appearance) (Pt Warm) -Tenderness on Palpation (Mayra-wound Yes Skin Appearance) -Foul Odor after Cleansing Yes -Anesthetic Used 4% Lidocaine Solution SANDEEP - Nurse 2 - General Ulcer CM Notes Start: 01/20/20 11:40 Freq: Status: Active Protocol: Activity Type Activity Date Activity User E-Sign Co-Sign Detail Recorded Client Recorded Date Recorded By Document 02/03/20 09:21 [email or web address] [id number] 02/03/20 09:33 02/03/20 09:21 Wound Center Nurse 2 [Procedure/Treatment] #7 R Lower Side -Correct Patient No -Correct Side, Site, Position No -Correct Procedure No -Procedure Performed No -Post Debridement (cm) - Length 0 -Post Debridement (cm) - Width 0 -Post Debridement (cm) - Depth 0 -Total Square (Post) (cm) 0 -Area of Debridement (cm) - Length 0 -Area of Debridement (cm) - Width 0 -Total Square (Area) (cm) 0 -Wound/Ulcer Outcome Healed- Epithelialized 6. L lumbar back -Time 09:25 -Correct Patient Yes -Correct Side, Site, Position Yes -Correct Procedure Yes -Procedure Performed Yes -Type of Procedure Debridement -Clinical Debridement Subcutaneous -Tissue Removed Subcutaneous -Post Debridement (cm) - Length 1.3 -Post Debridement (cm) - Width 6.1 -Post Debridement (cm) - Depth 0.4 -Total Square (Post) (cm) 7.93 -Area of Debridement (cm) - Length 1.3 -Area of Debridement (cm) - Width 6.1 -Total Square (Area) (cm) 7.93 -Tunneling No -Undermining/Tunneling No -Circular Undermining No -Wound/Ulcer Outcome Not Healed -Ulcer Cleansing Rinsed/ Irrigated with Saline -Foul Odor after Cleansing No -Bioengineered Tissue No -Bleeding Controlled with Pressure -Offloading No -Debridement - Open, 1st 20sq cm No -Debridement - Subq, 1st 20sq cm Yes -Debridement - Muscle / Fascia, 1st No 20sq cm [See Physician Procedure note for Specifics] Pain Scale: 0-10 Numeric [Pain] -Is Patient Pain Free? Yes WC - Nurse 3 - General Ulcer D/C NN Start: 01/20/20 11:40 Freq: Status: Active Protocol: Activity Type Activity Date Activity User E-Sign Co-Sign Detail Recorded Client Recorded Date Recorded By Document 02/03/20 09:39 [email or web address] [id number] 02/03/20 09:42 DL 02/03/20 09:39 Wound Care Nurse 3 [Wound Dressing] 6. L lumbar back -Ulcer Cleansing Rinsed/ Irrigated with Saline -Foul Odor after Cleansing No -Negative Pressure Wound Therapy N/A -Primary Dressing Applied C Hydrogel ($), NonAdherent Contact Layer -Primary Dressing Covered/Secured Dry Gauze, with Secured with Tape [Post Procedure Tolerated] -Treatment Response Procedure Tolerated Well Vital Signs [Pulse] -Pulse Rate (60-100) 78 -Pulse Location Monitor [Blood Pressure] -Blood Pressure (90/60-120/80) 106/71 -Blood Pressure Mean (mm Hg) 82 -Source Monitor Pain Scale: 0-10 Numeric [Pain] -Is Patient Pain Free? Yes WC - Visit Discharge [Visit Discharge Information] -Discharge Condition Stable -Ambulatory Status Ambulatory -Transportation Private Auto -Accompanied by Debridement Note Post-Debridement Measurements/Treatment - Nurse 2 - General Ulcer CM Notes Start: 01/20/20 11:40 Freq: Status: Active Protocol: Activity Type Activity Date Activity User E-Sign Co-Sign Detail Recorded Client Recorded Date Recorded By Document 01/27/20 10:07 [id number] 01/27/20 10:09 Document 02/03/20 09:21 [id number] 02/03/20 09:33 01/27/20 02/03/20 10:07 09:21 Wound Center Nurse 2 #7 R Lower Side -Correct Patient No No -Correct Side, Site, Position No No -Correct Procedure No No -Procedure Performed No No -Post Debridement (cm) - Length 0 -Post Debridement (cm) - Width 0 -Post Debridement (cm) - Depth 0 -Total Square (Post) (cm) 0 -Area of Debridement (cm) - Length 0 -Area of Debridement (cm) - Width 0 -Total Square (Area) (cm) 0 -Wound/Ulcer Outcome Healed- Epithelialized -Debridement - Subq, 1st 20sq cm No 6. L lumbar back -Time 10:08 09:25 -Correct Patient Yes Yes -Correct Side, Site, Position Yes Yes -Correct Procedure Yes Yes -Procedure Performed Yes Yes -Type of Procedure Debridement Debridement -Clinical Debridement Subcutaneous Subcutaneous -Tissue Removed Subcutaneous Subcutaneous -Post Debridement (cm) - Length 1.5 1.3 -Post Debridement (cm) - Width 4.4 6.1 -Post Debridement (cm) - Depth 0.4 0.4 -Total Square (Post) (cm) 6.60 7.93 -Area of Debridement (cm) - Length 1.5 1.3 -Area of Debridement (cm) - Width 4.4 6.1 -Total Square (Area) (cm) 6.60 7.93 -Tunneling No No -Undermining/Tunneling No No -Circular Undermining No No -Wound/Ulcer Outcome Not Healed Not Healed -Ulcer Cleansing Rinsed/ Rinsed/ Irrigated with Irrigated with Saline Saline -Foul Odor after Cleansing No No -Bioengineered Tissue No No -Bleeding Controlled with Pressure Pressure -Offloading No No -Treatment Response Procedure Tolerated Well -Debridement - Open, 1st 20sq cm No -Debridement - Subq, 1st 20sq cm Yes Yes -Debridement - Muscle / Fascia, 1st No 20sq cm Pain Scale: 0-10 Numeric Is Patient Pain Free? Yes Yes WC - Nurse 3 - General Ulcer D/C NN Start: 01/20/20 11:40 Freq: Status: Active Protocol: Activity Type Activity Date Activity User E-Sign Co-Sign Detail Recorded Client Recorded Date Recorded By Document 01/20/20 11:41 DL [id number] 01/20/20 12:06 DL Document 01/27/20 10:25 BM [id number] 01/27/20 10:25 BMF Document 02/03/20 09:39 DL [id number] 02/03/20 09:42 DL 01/20/20 01/27/20 02/03/20 11:41 10:25 09:39 Vital Signs Temperature (97.8 F-99.1 F) 97.0 F L Temperature Source Temporal Pulse Rate (60-100) 70 78 Pulse Location Monitor Monitor Pulse Oximetry 16 Oxygen Delivery Method Room Air Blood Pressure (90/60-120/80) 118/63 106/71 Blood Pressure Mean (mm Hg) 81 82 Source Monitor Monitor Comment R Side Post Op 3days, Incision well approx, MARIELA intact Pain Scale: 0-10 Numeric Is Patient Pain Free? Yes Yes Yes Wound Care Nurse 3 #7 R Lower Side -Ulcer Cleansing Wound Cleanser -Foul Odor after Cleansing No -Primary Dressing Covered/Secured with Dry Gauze, Secured with Secured with Tape,Other Tape -Other Covering abd pads 6. L lumbar back -Ulcer Cleansing Wound Cleanser Rinsed/ Rinsed/ Irrigated with Irrigated with Saline Saline -Foul Odor after Cleansing No No No -Negative Pressure Wound Therapy N/A -Primary Dressing Applied C Hydrogel ($) NonAdherent C Hydrogel ($), Contact Layer, NonAdherent Other Contact Layer -Other Dressing adaptaic hydrogel -Primary Dressing Covered/Secured with Dry Gauze, Secured with Dry Gauze, Secured with Tape,Other Secured with Tape Tape -Other Covering abd pad Treatment Response Procedure Procedure Tolerated Well Tolerated Well WC - Visit Discharge Discharge Condition Stable Stable Stable Ambulatory Status Ambulatory Ambulatory Ambulatory Transportation Private Auto Private Auto Private Auto Accompanied by Notes: SPoke with Radha Reeves. Instructed to Change dresssing to Surgery side for pt and apply hydrogel to Lumbar site. Incision to R side well approximated and intact. MARIELA to suction with small amt Serosanguinous drainage. Denies pain at present. Wound debrided: #6 Left lateral middle back. Laterality: Left Wound Grade/Stage: 2. Type of Debridement: Excisional debridement Anesthesia Used: 4% Lidocaine Solution Depth: Down to and including healthy tissue, in the subcutaneous layer Percentage of wound debrided: 100 Instrument Used: 3mm curette Tissue Removed: subcutaneous tissue. Severity: Fat Layer Exposed Amount of bleeding with debridement: Mild Bleeding Controlled with: Pressure Patient tolerated procedure well - some discomfort noted. A wound culture was obtained today. - Additional Wound Wound debrided: #7 Right flank. Laterality: Right Wound Grade/Stage: 2. Patient tolerated procedure: - - no debridement was done today as the ulcer was surgically closed 01/17/20. Incision is dry and intact and healing satisfactory. Drain tube was removed today without difficulty. It was draining less than 20 ml per day. Continue abdominal wall binder for one more week. Assessment/Plan Assessment: 1. Diabetic ulcer right lateral middle back, healed. 2. Nonhealing diabetic ulcer left lateral middle back. 3. Nonhealing diabetic ulcer right flank, s/p surgical closure 01/17/2020. 4. Diabetes mellitus. Plan: Continue Collagen Hydrogel with Adaptic dressing changes daily to the left lateral middle back ulcer. 10 applications of Epifix to the left middle lateral back ulcer have been completed. Continue dry gauze dressings to right flank incision. Continue abdominal wall binder for one more week. Drain was removed today without difficulty. Operative culture was negative. He was treated perioperatively with Doxycycline. A wound culture was obtained from left l ateral middle back ulcer. A positive culture will necessitate antibiotic therapy. Labs from 07/22/19- Prealbumin was 18.7. Encourage nutritional supplementation with protein to help the healing process. HgbA1c was 5.9. Follow-up in 1 week. [id number]: [id number] Pooja subq tissue 20 sq cm/< - -79 Modifier ICD-10 - L98.492, A49.8, E11.9, T86.829
[2020-02-10 09:18] VITALS: BP 115/73; PULSE 75; RESP 16; TEMP 36.3; BMI 28.8
--- NOTE | 2020-02-10 15:39 | PCM.WC.PN ---
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 History of Wound: Surgery 01/17/2020?surgical preparation right flank with excisional debridement of nonhealing painful infected diabetic ulcer of the right flank with 7 cm complex secondary wound closure. Wound care - dry dressing over incision and drain site followed by abdominal binder. Operative culture - negative. He was discharged on Doxycycline and is finishing them. The surgical incision is well approximated. The patient's drainage is less than 20 ml per day. He reports improvement in his right flank pain status post surgery. Surgery 07/23/19 - 1. Surgical preparation right lateral middle back with incision and drainage and excisional debridement nonhealing infected diabetic ulcer (66 cm2). 2. Surgical preparation left lateral middle back with incision and drainage and excisional debridement nonhealing infected diabetic ulcer (137.75 cm2). Wound care - he has completed 10 applications of Epifix to the left lateral middle back ulcer. He will continue daily collagen hydrogel with Adaptic to this ulcer. He has persistent pain in the right flank ulcer and a wound culture was obtained on 09/23/19 and it showed Staphylococcus aureus. He was started on Doxycycline and has finished them. Repeat wound culture on 11/04/19 showed Staphylococcus epidermidis and Corynebacterium amycolatum. He was placed on Levaquin and Augmentin and has finished them. Operative cultures from 07/23/19 were positive for resistant Staphylococcus epidermidis (MRSE). He was started on IV Vancomycin since he had been on Doxycyline, Cleocin, and Zyvox in the past for the persistent Staph infections. He developed compromise to the healing skin grafts that necessitated HBO Treatments which he tolerated. Prealbumin from 07/22/19 was 18.7. Encourage nutritonal supplementation with protein to help the healing process. His HgbA1c from 07/22/19 was 5.9. Today he denies fever. His appetite is good. Progress of Wound: Left lateral middle back ulcer is stable. Right flank ulcer was surgically closed 01/17/20 and remains closed. Wound cultures from the left lateral middle back on 02/03/2020 were negative for aerobic and anaerobic growth. The patient denies any fever, chills, nausea, vomiting, or diarrhea. Denies any increasing pain, redness, swelling, or purulent/malodorous drainage from affected area. - Physical Exam Vital Signs Temp Pulse Resp BP Pulse Ox 97.4 F L 75 16 115/73 16 02/10/20 09:18 02/10/20 09:18 02/10/20 09:18 02/10/20 09:18 01/20/20 11:41 General: Alert, Cooperative, No apparent distress HEENT: Atraumatic, Normocephalic Oral: Moist Mucosa Neck: Supple Lungs: Normal air movement Extremities: Capillary Refill Less than 3 Seconds Skin: Ulcer/ Wound - Left lateral middle back ulcer cluster with subcutaneous layer exposed. Granulation tissue is present. Small amount of slough and devitalized tissue present. Wound Measurements and Assessment WC - Nurse 1 - General Ulcer Measurement Start: 01/20/20 11:40 Freq: Status: Active Protocol: Activity Type Activity Date Activity User E-Sign Co-Sign Detail Recorded Client Recorded Date Recorded By Document 02/10/20 09:18 [facility] [id number] 02/10/20 09:24 [facility] 02/10/20 09:18 Wound Center Nurse 1 [Ulcer Assessment] 6. L lumbar back -Combined with other wound No -Current Size (cm) - Length 1.4 -Current Size (cm) - Width 5.4 -Current Size (cm) - Depth 0.3 -Total Square Cm 7.56 -Photo Taken No -Epithelialization None Present -Tunneling No -Undermining/Tunneling No -Circular Undermining No -Exudate Amt Small -Exudate Type Serosanguineous -Wound Margin Distinct, Outline Attached -Granulation Amt Large (67-100%) -Granulation Quality Red -Slough/Fibrin Yes -Necrosis Amt Small (1-33%) -Necrotic Tissue Type Adherent Slough -Texture (Mayra-wound Skin Appearance) Assessed, Scarring -Moisture (Mayra-wound Skin Appearance Assessed ) -Color (Mayra-wound Skin Appearance) Assessed, Erythema -Temperature (Mayra-wound Skin No Abnormality Appearance) (Pt Warm) -Tenderness on Palpation (Mayra-wound No Skin Appearance) -Ulcer Cleansing Rinsed/ Irrigated with Saline -Foul Odor after Cleansing No -Anesthetic Used 5% Lidocaine Gel WC - Nurse 2 - General Ulcer CM Notes Start: 01/20/20 11:40 Freq: Status: Active Protocol: Activity Type Activity Date Activity User E-Sign Co-Sign Detail Recorded Client Recorded Date Recorded By Document 02/10/20 09:34 JF [id number] 02/10/20 09:41 JF 02/10/20 09:34 Wound Center Nurse 2 [Procedure/Treatment] -Time 09:34 -Correct Patient Yes -Correct Side, Site, Position Yes -Correct Procedure Yes -Procedure Performed Yes -Type of Procedure Debridement -Clinical Debridement Subcutaneous -Tissue Removed Subcutaneous -Post Debridement (cm) - Length 3.7 -Post Debridement (cm) - Width 5.4 -Post Debridement (cm) - Depth 0.4 -Total Square (Post) (cm) 19.98 -Area of Debridement (cm) - Length 3.7 -Area of Debridement (cm) - Width 5.4 -Total Square (Area) (cm) 19.98 -Tunneling No -Undermining/Tunneling No -Circular Undermining No -Wound/Ulcer Outcome Not Healed -Ulcer Cleansing Rinsed/ Irrigated with Saline -Foul Odor after Cleansing No -Bioengineered Tissue No -Bleeding Controlled with Pressure -Offloading No -Treatment Response Procedure Tolerated Well -Debridement - Subq, 1st 20sq cm Yes [See Physician Procedure note for Specifics] Pain Scale: 0-10 Numeric [Pain] -Is Patient Pain Free? Yes SANDEEP - Nurse 3 - General Ulcer D/C NN Start: 01/20/20 11:40 Freq: Status: Active Protocol: Activity Type Activity Date Activity User E-Sign Co-Sign Detail Recorded Client Recorded Date Recorded By Document 02/10/20 09:47 DL [id number] 02/10/20 09:49 DL 02/10/20 09:47 Wound Care Nurse 3 [Wound Dressing] 6. L lumbar back -Ulcer Cleansing Rinsed/ Irrigated with Saline -Foul Odor after Cleansing No -Primary Dressing Applied C Hydrogel ($), NonAdherent Contact Layer -Primary Dressing Covered/Secured Dry Gauze, with Secured with Tape [Post Procedure Tolerated] -Treatment Response Procedure Tolerated Well Pain Scale: 0-10 Numeric [Pain] -Is Patient Pain Free? Yes WC - Visit Discharge [Visit Discharge Information] -Discharge Condition Stable -Ambulatory Status Ambulatory -Transportation Private Auto -Notes: Dressing completed by Amber gates. Debridement Note Post-Debridement Measurements/Treatment - Nurse 2 - General Ulcer CM Notes Start: 01/20/20 11:40 Freq: Status: Active Protocol: Activity Type Activity Date Activity User E-Sign Co-Sign Detail Recorded Client Recorded Date Recorded By Document 01/27/20 10:07 [id number] 01/27/20 10:09 Document 02/03/20 09:21 [id number] 02/03/20 09:33 Document 02/10/20 09:34 [id number] 02/10/20 09:41 01/27/20 02/03/20 02/10/20 10:07 09:21 09:34 Wound Center Nurse 2 #7 R Lower Side -Correct Patient No No -Correct Side, Site, Position No No -Correct Procedure No No -Procedure Performed No No -Post Debridement (cm) - Length 0 -Post Debridement (cm) - Width 0 -Post Debridement (cm) - Depth 0 -Total Square (Post) (cm) 0 -Area of Debridement (cm) - Length 0 -Area of Debridement (cm) - Width 0 -Total Square (Area) (cm) 0 -Wound/Ulcer Outcome Healed- Epithelialized -Debridement - Subq, 1st 20sq cm No 6. L lumbar back -Time 10:08 09:25 09:34 -Correct Patient Yes Yes Yes -Correct Side, Site, Position Yes Yes Yes -Correct Procedure Yes Yes Yes -Procedure Performed Yes Yes Yes -Type of Procedure Debridement Debridement Debridement -Clinical Debridement Subcutaneous Subcutaneous Subcutaneous -Tissue Removed Subcutaneous Subcutaneous Subcutaneous -Post Debridement (cm) - Length 1.5 1.3 3.7 -Post Debridement (cm) - Width 4.4 6.1 5.4 -Post Debridement (cm) - Depth 0.4 0.4 0.4 -Total Square (Post) (cm) 6.60 7.93 19.98 -Area of Debridement (cm) - Length 1.5 1.3 3.7 -Area of Debridement (cm) - Width 4.4 6.1 5.4 -Total Square (Area) (cm) 6.60 7.93 19.98 -Tunneling No No No -Undermining/Tunneling No No No -Circular Undermining No No No -Wound/Ulcer Outcome Not Healed Not Healed Not Healed -Ulcer Cleansing Rinsed/ Rinsed/ Rinsed/ Irrigated with Irrigated with Irrigated with Saline Saline Saline -Foul Odor after Cleansing No No No -Bioengineered Tissue No No No -Bleeding Controlled with Pressure Pressure Pressure -Offloading No No No -Treatment Response Procedure Procedure Tolerated Well Tolerated Well -Debridement - Open, 1st 20sq cm No -Debridement - Subq, 1st 20sq cm Yes Yes Yes -Debridement - Muscle / Fascia, 1st No 20sq cm Pain Scale: 0-10 Numeric Is Patient Pain Free? Yes Yes Yes - Nurse 3 - General Ulcer D/C NN Start: 01/20/20 11:40 Freq: Status: Active Protocol: Activity Type Activity Date Activity User E-Sign Co-Sign Detail Recorded Client Recorded Date Recorded By Document 01/20/20 11:41 DL [id number] 01/20/20 12:06 DL Document 01/27/20 10:25 [facility] [id number] 01/27/20 10:25 [facility] Document 02/03/20 09:39 DL [id number] 02/03/20 09:42 DL Document 02/10/20 09:47 DL [id number] 02/10/20 09:49 DL 01/20/20 01/27/20 02/03/20 11:41 10:25 09:39 Vital Signs Temperature (97.8 F-99.1 F) 97.0 F L Temperature Source Temporal Pulse Rate (60-100) 70 78 Pulse Location Monitor Monitor Pulse Oximetry 16 Oxygen Delivery Method Room Air Blood Pressure (90/60-120/80) 118/63 106/71 Blood Pressure Mean (mm Hg) 81 82 Source Monitor Monitor Comment R Side Post Op 3days, Incision well approx, MARIELA intact Pain Scale: 0-10 Numeric Is Patient Pain Free? Yes Yes Yes Wound Care Nurse 3 #7 R Lower Side -Ulcer Cleansing Wound Cleanser -Foul Odor after Cleansing No -Primary Dressing Covered/Secured with Dry Gauze, Secured with Secured with Tape,Other Tape -Other Covering abd pads 6. L lumbar back -Ulcer Cleansing Wound Cleanser Rinsed/ Rinsed/ Irrigated with Irrigated with Saline Saline -Foul Odor after Cleansing No No No -Negative Pressure Wound Therapy N/A -Primary Dressing Applied C Hydrogel ($) NonAdherent C Hydrogel ($), Contact Layer, NonAdherent Other Contact Layer -Other Dressing adaptaic hydrogel -Primary Dressing Covered/Secured with Dry Gauze, Secured with Dry Gauze, Secured with Tape,Other Secured with Tape Tape -Other Covering abd pad Treatment Response Procedure Procedure Tolerated Well Tolerated Well WC - Visit Discharge Discharge Condition Stable Stable Stable Ambulatory Status Ambulatory Ambulatory Ambulatory Transportation Private Auto Private Auto Private Auto Accompanied by Notes: SPoke with Radha Reeves. Instructed to Change dresssing to Surgery side for pt and apply hydrogel to Lumbar site. Incision to R side well approximated and intact. MARIELA to suction with small amt Serosanguinous drainage. Denies pain at present. 02/10/20 09:47 Vital Signs Temperature (97.8 F-99.1 F) Temperature Source Pulse Rate (60-100) Pulse Location Pulse Oximetry Oxygen Delivery Method Blood Pressure (90/60-120/80) Blood Pressure Mean (mm Hg) Source Comment Pain Scale: 0-10 Numeric Is Patient Pain Free? Yes Wound Care Nurse 3 #7 R Lower Side -Ulcer Cleansing -Foul Odor after Cleansing -Primary Dressing Covered/Secured with -Other Covering 6. L lumbar back -Ulcer Cleansing Rinsed/ Irrigated with Saline -Foul Odor after Cleansing No -Negative Pressure Wound Therapy -Primary Dressing Applied C Hydrogel ($), NonAdherent Contact Layer -Other Dressing -Primary Dressing Covered/Secured with Dry Gauze, Secured with Tape -Other Covering Treatment Response Procedure Tolerated Well WC - Visit Discharge Discharge Condition Stable Ambulatory Status Ambulatory Transportation Private Auto Accompanied by Notes: Dressing completed by Amber gates. Wound debrided: Lateral middle back ulcer cluster Laterality: Left Type of Debridement: Excisional debridement Anesthesia Used: 4% Lidocaine Solution Depth: in the subcutaneous layer Percentage of wound debrided: 100 Instrument Used: 3mm curette Tissue Removed: Slough and devitalized tissue Severity: Fat Layer Exposed Amount of bleeding with debridement: Mild Bleeding Controlled with: Pressure Patient tolerated procedure well Assessment/Plan Assessment: 1. Diabetic ulcer right lateral middle back, healed. 2. Nonhealing diabetic ulcer left lateral middle back. 3. Nonhealing diabetic ulcer right flank, s/p surgical closure 01/17/2020. 4. Diabetes mellitus. Plan: Continue Collagen Hydrogel with Adaptic dressing changes daily to the 2 smaller left lateral middle back ulcers. Start daily Aquacel AG dressing changes to the largest left lateral middle back ulcer. 10 applications of Epifix to the left middle lateral back ulcer have been completed. Continue dry gauze dressings to right flank incision. May discontinue abdominal wall binder, but is encouraged to continue using the binder with any heavy activity. Operative culture was negative. He was treated perioperatively with Doxycycline. A wound culture was obtained from left lateral middle back ulcer on 02/03/2020, and was negative for aerobic and anaerobic bacteria. Labs from 07/22/19- Prealbumin was 18.7. Encourage nutritional supplementation with protein to help the healing process. HgbA1c was 5.9. Return to the clinic in 1 week for follow-up appointment. Return sooner if new or concerning symptoms arise. Note: [employer] speech recognition potato chip frier software was used to create portions of this document. Sound-alike and misspelled words, as well as other potato chip frier errors may be contained in the documentation. [id number]: [id number] Pooja subq tissue 20 sq cm/<
== END 2020-02-15 23:59 ==
LOC: WC 09:15
PROVIDERS: Family Provider Family Medicine; PCP Family Medicine; Referring Provider Nurse Practitioner Family; Visit Provider Nurse Practitioner Family
DX: E11.621 Type 2 diabetes mellitus with foot ulcer (principal); L97.412 Non-pressure chronic ulcer of right heel and midfoot with fat layer exposed; T86.829 Unspecified complication of skin graft (allograft) (autograft); Z79.899 Other long term (current) drug therapy
CPT/HCPCS: 11042; 87070; 87075; 87205; 99212; G0463

== ENCOUNTER 2020-03-09 09:15 | Outpatient (RCR) | payer OTHER, SELFPAY ==
[2020-02-16 00:17] VITALS: BP 115/73; PULSE 75; RESP 16; TEMP 36.3; O2SAT 16
[2020-02-17 09:21] VITALS: BP 111/72; PULSE 72; TEMP 36.2; BMI 28.8
--- NOTE | 2020-02-17 12:39 | PN.PCM_ITS ---
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 History of Wound: Surgery 01/17/2020?surgical preparation right flank with excisional debridement of nonhealing painful infected diabetic ulcer of the right flank with 7 cm complex secondary wound closure. Operative culture - negative. He was discharged on Doxycycline and has finished them. The surgical incision is well approximated. The Romeo drain was pulled last week. Surgery 07/23/19 - 1. Surgical preparation right lateral middle back with incision and drainage and excisional debridement nonhealing infected diabetic ulcer (66 cm2). 2. Surgical preparation left lateral middle back with incision and drainage and excisional debridement nonhealing infected diabetic ulcer (137.75 cm2). Wound care - he has completed 10 applications of Epifix to the left lateral middle back ulcer. He will continue daily Aquacel-Ag with Adaptic to this ulcer. He has persistent pain in the right flank ulcer and a wound culture was obtained on 09/23/19 and it showed Staphylococcus aureus. He was started on Doxycycline and has finished them. Repeat wound culture on 11/04/19 showed Staphylococcus epidermidis and Corynebacterium amycolatum. He was placed on Levaquin and Augmentin and has finished them. Operative cultures from 07/23/19 were positive for resistant Staphylococcus epidermidis (MRSE). He was started on IV Vancomycin since he had been on Doxycyline, Cleocin, and Zyvox in the past for the persistent Staph infections. He developed compromise to the healing skin grafts that necessitated HBO Treatments which he tolerated. Prealbumin from 07/22/19 was 18.7. Encourage nutritonal supplementation with protein to help the healing process. His HgbA1c from 07/22/19 was 5.9. Left lateral middle back ulcer is stable. Right flank ulcer was surgically closed 01/17/20 and remains closed. Wound cultures from the left lateral middle back on 02/03/2020 were negative for aerobic and anaerobic growth. The patient denies any fever, chills, nausea, vomiting, or diarrhea. Denies any increasing pain, redness, swelling, or purulent/malodorous drainage from affected area. Progress of Wound: Left middle lateral back is stable. Right middle back remains healed. Right flank remains closed. - Physical Exam Vital Signs Temp Pulse Resp BP Pulse Ox 97.2 F L 72 16 111/72 16 02/17/20 09:21 02/17/20 09:21 02/16/20 00:17 02/17/20 09:21 02/16/20 00:17 General: Alert, Oriented x3, Cooperative HEENT: Atraumatic Oral: Moist Mucosa Lungs: Normal air movement Cardiovascular: Regular rate Abdomen: Soft Extremities: Capillary Refill Less than 3 Seconds Skin: Ulcer/ Wound - Left middle back ulcer is beefy pink. Tender to palpation. Right middle back remains healed. Right flank incision remains closed. Wound Measurements and Assessment WC - Nurse 1 - General Ulcer Measurement Start: 02/17/20 09:21 Freq: Status: Active Protocol: Activity Type Activity Date Activity User E-Sign Co-Sign Detail Recorded Client Recorded Date Recorded By Document 02/17/20 09:21 MS [id number] 02/17/20 09:30 MS 02/17/20 09:21 Wound Center Nurse 1 [Ulcer Assessment] 6. L lumbar back -Current Size (cm) - Length 1.1 -Current Size (cm) - Width 0.5 -Current Size (cm) - Depth 0.1 -Total Square Cm 0.55 -Exudate Amt Small -Exudate Type Serosanguineous -Wound Margin Distinct, Outline Attached -Granulation Amt Large (67-100%) -Granulation Quality Hyper- granulation -Slough/Fibrin Yes -Necrosis Amt Small (1-33%) -Texture (Mayra-wound Skin Appearance) No Abnormality, Assessed -Moisture (Mayra-wound Skin Appearance No Abnormality, ) Assessed -Color (Mayra-wound Skin Appearance) No Abnormality, Assessed -Temperature (Mayra-wound Skin No Abnormality Appearance) (Pt Warm) -Tenderness on Palpation (Mayra-wound No Skin Appearance) -Ulcer Cleansing Rinsed/ Irrigated with Saline -Foul Odor after Cleansing No -Anesthetic Used 4% Lidocaine Solution - Nurse 2 - General Ulcer CM Notes Start: 02/17/20 09:21 Freq: Status: Active Protocol: Activity Type Activity Date Activity User E-Sign Co-Sign Detail Recorded Client Recorded Date Recorded By Document 02/17/20 09:46 [id number] 02/17/20 09:48 02/17/20 09:46 Wound Center Nurse 2 [Procedure/Treatment] -Time 09:46 -Correct Patient Yes -Correct Side, Site, Position Yes -Correct Procedure Yes -Procedure Performed Yes -Type of Procedure Debridement -Clinical Debridement Subcutaneous -Tissue Removed Subcutaneous -Post Debridement (cm) - Length 1.7 -Post Debridement (cm) - Width 1.7 -Post Debridement (cm) - Depth 0.4 -Total Square (Post) (cm) 2.89 -Area of Debridement (cm) - Length 1.7 -Area of Debridement (cm) - Width 1.7 -Total Square (Area) (cm) 2.89 -Tunneling No -Undermining/Tunneling No -Circular Undermining No -Wound/Ulcer Outcome Not Healed -Ulcer Cleansing Rinsed/ Irrigated with Saline -Bioengineered Tissue No -Bleeding Controlled with Pressure -Offloading No -Debridement - Subq, 1st 20sq cm Yes [See Physician Procedure note for Specifics] Pain Scale: 0-10 Numeric [Pain] -Is Patient Pain Free? Yes - Nurse 3 - General Ulcer D/C NN Start: 02/17/20 09:21 Freq: Status: Active Protocol: Activity Type Activity Date Activity User E-Sign Co-Sign Detail Recorded Client Recorded Date Recorded By Document 02/17/20 10:07 [facility] [id number] 02/17/20 10:07 [facility] 02/17/20 10:07 Wound Care Nurse 3 [Wound Dressing] 6. L lumbar back -Ulcer Cleansing Rinsed/ Irrigated with Saline -Foul Odor after Cleansing No -Primary Dressing Applied NonAdherent Contact Layer, Other -Other Dressing aquacel ag -Primary Dressing Covered/Secured Secured with with Tape,Other -Other Covering abd [Post Procedure Tolerated] -Treatment Response Procedure Tolerated Well Pain Scale: 0-10 Numeric [Pain] -Is Patient Pain Free? Yes WC - Visit Discharge [Visit Discharge Information] -Discharge Condition Stable -Ambulatory Status Ambulatory -Transportation Private Auto Musculoskeletal: No Tenderness to Palpation of Joints or Extremities Neurological: Cranial nerves II-XII grossly intact Psych/Mental Status: Normal Affect, Appropriate Debridement Note Post-Debridement Measurements/Treatment - Nurse 2 - General Ulcer CM Notes Start: 02/17/20 09:21 Freq: Status: Active Protocol: Activity Type Activity Date Activity User E-Sign Co-Sign Detail Recorded Client Recorded Date Recorded By Document 02/17/20 09:46 [id number] 02/17/20 09:48 02/17/20 09:46 Wound Center Nurse 2 6. L lumbar back -Time 09:46 -Correct Patient Yes -Correct Side, Site, Position Yes -Correct Procedure Yes -Procedure Performed Yes -Type of Procedure Debridement -Clinical Debridement Subcutaneous -Tissue Removed Subcutaneous -Post Debridement (cm) - Length 1.7 -Post Debridement (cm) - Width 1.7 -Post Debridement (cm) - Depth 0.4 -Total Square (Post) (cm) 2.89 -Area of Debridement (cm) - Length 1.7 -Area of Debridement (cm) - Width 1.7 -Total Square (Area) (cm) 2.89 -Tunneling No -Undermining/Tunneling No -Circular Undermining No -Wound/Ulcer Outcome Not Healed -Ulcer Cleansing Rinsed/ Irrigated with Saline -Bioengineered Tissue No -Bleeding Controlled with Pressure -Offloading No -Debridement - Subq, 1st 20sq cm Yes Pain Scale: 0-10 Numeric Is Patient Pain Free? Yes - Nurse 3 - General Ulcer D/C NN Start: 02/17/20 09:21 Freq: Status: Active Protocol: Activity Type Activity Date Activity User E-Sign Co-Sign Detail Recorded Client Recorded Date Recorded By Document 02/17/20 10:07 [facility] [id number] 02/17/20 10:07 [facility] 02/17/20 10:07 Wound Care Nurse 3 6. L lumbar back -Ulcer Cleansing Rinsed/ Irrigated with Saline -Foul Odor after Cleansing No -Primary Dressing Applied NonAdherent Contact Layer, Other -Other Dressing aquacel ag -Primary Dressing Covered/Secured with Secured with Tape,Other -Other Covering abd Treatment Response Procedure Tolerated Well Pain Scale: 0-10 Numeric Is Patient Pain Free? Yes WC - Visit Discharge Discharge Condition Stable Ambulatory Status Ambulatory Transportation Private Auto Wound debrided: middle lateral back ulcer Laterality: Left Type of Debridement: Excisional debridement Anesthesia Used: 5% Lidocaine Gel Depth: in the subcutaneous layer Percentage of wound debrided: 100 Instrument Used: 5mm curette Tissue Removed: Subcutaneous tissue and slough Severity: Fat Layer Exposed Amount of bleeding with debridement: Mild Bleeding Controlled with: Pressure Patient tolerated procedure well Assessment/Plan Active Problems (Last Reviewed 12/03/19 @ 08:[address] 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 Diabetic ulcer right lateral middle back, healed. 2. Nonhealing diabetic ulcer left lateral middle back. 3. Nonhealing diabetic ulcer right flank, s/p surgical closure 01/17/2020. 4. Diabetes mellitus. Plan: Patient was seen and evaluated in the wound center today. A subcutaneous debridement was performed on the left middle, lateral back ulcer. Patient tolerated it well. Wound care: Continue Aquacel AG dressing changes to the left lateral middle back ulcer. 10 applications of Epifix to the left middle lateral back ulcer have been completed. Right middle lateral back ulcer does not have to be covered at all times (he is covering it to prevent rubbing). May trial not covering to see how it is tolerated. Right flank incision is dry and intact. Use abdominal wall binder with activity. Operative culture was negative. He was treated perioperatively with Doxycycline. A wound culture was obtained from left lateral middle back ulcer on 02/03/2020, and was negative for aerobic and anaerobic bacteria. Labs from 07/22/19- Prealbumin was 18.7. Encourage nutritional supplementation with protein to help the healing process. HgbA1c was 5.9. Follow up in 1 week. 111xxx-113xx: [id number] Global Visit
[2020-02-24 09:27] VITALS: BP 134/76; PULSE 65; RESP 16; TEMP 36.2; BMI 28.8
--- NOTE | 2020-02-24 14:26 | PN.PCM_ITS ---
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 History of Wound: Surgery 01/17/2020?surgical preparation right flank with excisional debridement of nonhealing painful infected diabetic ulcer of the right flank with 7 cm complex secondary wound closure. Operative culture - negative. He was discharged on Doxycycline and has finished them. The surgical incision is well approximated. Surgery 07/23/19 - 1. Surgical preparation right lateral middle back with incision and drainage and excisional debridement nonhealing infected diabetic ulcer (66 cm2). 2. Surgical preparation left lateral middle back with incision and drainage and excisional debridement nonhealing infected diabetic ulcer (137.75 cm2). Wound care - he has completed 10 applications of Epifix to the left lateral middle back ulcer. He will continue daily Aquacel-Ag with Adaptic to this ulcer. He has persistent pain in the right flank ulcer and a wound culture was obtained on 09/23/19 and it showed Staphylococcus aureus. He was started on Doxycycline and has finished them. Repeat wound culture on 11/04/19 showed Staphylococcus epidermidis and Corynebacterium amycolatum. He was placed on Levaquin and Augmentin and has finished them. Operative cultures from 07/23/19 were positive for resistant Staphylococcus epidermidis (MRSE). He was started on IV Vancomycin since he had been on Doxycyline, Cleocin, and Zyvox in the past for the persistent Staph infections. He developed compromise to the healing skin grafts that necessitated HBO Treatments which he tolerated. Prealbumin from 07/22/19 was 18.7. Encourage nutritonal supplementation with protein to help the healing process. His HgbA1c from 07/22/19 was 5.9. Left lateral middle back ulcer is stable. Right flank ulcer was surgically closed 01/17/20 and remains closed. Wound cultures from the left lateral middle back on 02/03/2020 were negative for aerobic and anaerobic growth. The patient denies any fever, chills, nausea, vomiting, or diarrhea. Denies any increasing pain, redness, swelling, or purulent/malodorous drainage from affected area. Progress of Wound: Left middle lateral back is stable. Right middle back remains healed. Right flank remains closed and healing well, no evidence of seroma. - Physical Exam Vital Signs Temp Pulse Resp BP Pulse Ox 97.2 F L 65 16 134/76 H 16 02/24/20 09:27 02/24/20 09:27 02/24/20 09:27 02/24/20 09:27 02/16/20 00:17 General: Alert, Oriented x3, Cooperative HEENT: Atraumatic Oral: Moist Mucosa Lungs: Normal air movement Cardiovascular: Regular rate Extremities: Capillary Refill Less than 3 Seconds Skin: Ulcer/ Wound - Left middle lateral back ulcer is beefy pink, and is stable in appearance., Incision - Right flank incision is dry and intact, healing well. No evidence of seroma. Wound Measurements and Assessment WC - Nurse 1 - General Ulcer Measurement Start: 02/17/20 09:21 Freq: Status: Active Protocol: Activity Type Activity Date Activity User E-Sign Co-Sign Detail Recorded Client Recorded Date Recorded By Document 02/24/20 09:27 [facility] [id number] 02/24/20 09:32 [facility] 02/24/20 09:27 Wound Center Nurse 1 [Ulcer Assessment] 6. L lumbar back -Combined with other wound No -Current Size (cm) - Length 1.7 -Current Size (cm) - Width 1.1 -Current Size (cm) - Depth 0.2 -Total Square Cm 1.87 -Photo Taken No -Epithelialization None Present -Tunneling No -Undermining/Tunneling No -Circular Undermining No -Exudate Amt Small -Exudate Type Serosanguineous -Wound Margin Distinct, Outline Attached -Granulation Amt Large (67-100%) -Granulation Quality Red -Slough/Fibrin No -Necrosis Amt None Present (0 %) -Texture (Mayra-wound Skin Appearance) Assessed, Scarring -Moisture (Mayra-wound Skin Appearance Assessed ) -Color (Mayra-wound Skin Appearance) Assessed -Temperature (Mayra-wound Skin No Abnormality Appearance) (Pt Warm) -Tenderness on Palpation (Mayra-wound Yes Skin Appearance) -Ulcer Cleansing Rinsed/ Irrigated with Saline -Foul Odor after Cleansing No -Anesthetic Used 5% Lidocaine Gel - Nurse 2 - General Ulcer CM Notes Start: 02/17/20 09:21 Freq: Status: Active Protocol: Activity Type Activity Date Activity User E-Sign Co-Sign Detail Recorded Client Recorded Date Recorded By Document 02/24/20 10:02 [facility] [id number] 02/24/20 10:04 [facility] 02/24/20 10:02 Wound Center Nurse 2 [Procedure/Treatment] -Time 10:02 -Correct Patient Yes -Correct Side, Site, Position Yes -Correct Procedure Yes -Procedure Performed Yes -Type of Procedure Debridement -Clinical Debridement Subcutaneous -Tissue Removed Subcutaneous -Post Debridement (cm) - Length 1.7 -Post Debridement (cm) - Width 1.5 -Post Debridement (cm) - Depth 0.5 -Total Square (Post) (cm) 2.55 -Area of Debridement (cm) - Length 1.7 -Area of Debridement (cm) - Width 1.5 -Total Square (Area) (cm) 2.55 -Tunneling No -Undermining/Tunneling No -Circular Undermining No -Wound/Ulcer Outcome Not Healed -Ulcer Cleansing Rinsed/ Irrigated with Saline -Foul Odor after Cleansing No -Bioengineered Tissue No -Bleeding Controlled with Pressure -Offloading No -Treatment Response Procedure Tolerated Well -Debridement - Subq, 1st 20sq cm Yes [See Physician Procedure note for Specifics] Pain Scale: 0-10 Numeric [Pain] -Is Patient Pain Free? Yes - Nurse 3 - General Ulcer D/C NN Start: 02/17/20 09:21 Freq: Status: Active Protocol: Activity Type Activity Date Activity User E-Sign Co-Sign Detail Recorded Client Recorded Date Recorded By Document 02/24/20 11:06 [facility] [id number] 02/24/20 11:07 [facility] 02/24/20 11:06 Wound Care Nurse 3 [Wound Dressing] 6. L lumbar back -Ulcer Cleansing Rinsed/ Irrigated with Saline -Foul Odor after Cleansing No -Primary Dressing Applied C Hydrogel ($) -Primary Dressing Covered/Secured Dry Gauze & with Roll Gauze, Secured with Tape Pain Scale: 0-10 Numeric [Pain] -Is Patient Pain Free? Yes - Visit Discharge [Visit Discharge Information] -Discharge Condition Stable -Ambulatory Status Ambulatory -Transportation Private Auto -Medication Reconcilliation completed Yes & provided to patient/care provider -Clinical Summary of Care Provided Yes Musculoskeletal: No Tenderness to Palpation of Joints or Extremities Neurological: Cranial nerves II-XII grossly intact Psych/Mental Status: Normal Affect, Appropriate Debridement Note Post-Debridement Measurements/Treatment - Nurse 2 - General Ulcer CM Notes Start: 02/17/20 09:21 Freq: Status: Active Protocol: Activity Type Activity Date Activity User E-Sign Co-Sign Detail Recorded Client Recorded Date Recorded By Document 02/17/20 09:46 [id number] 02/17/20 09:48 Document 02/24/20 10:02 [id number] 02/24/20 10:04 02/17/20 02/24/20 09:46 10:02 Wound Center Nurse 2 6. L lumbar back -Time 09:46 10:02 -Correct Patient Yes Yes -Correct Side, Site, Position Yes Yes -Correct Procedure Yes Yes -Procedure Performed Yes Yes -Type of Procedure Debridement Debridement -Clinical Debridement Subcutaneous Subcutaneous -Tissue Removed Subcutaneous Subcutaneous -Post Debridement (cm) - Length 1.7 1.7 -Post Debridement (cm) - Width 1.7 1.5 -Post Debridement (cm) - Depth 0.4 0.5 -Total Square (Post) (cm) 2.89 2.55 -Area of Debridement (cm) - Length 1.7 1.7 -Area of Debridement (cm) - Width 1.7 1.5 -Total Square (Area) (cm) 2.89 2.55 -Tunneling No No -Undermining/Tunneling No No -Circular Undermining No No -Wound/Ulcer Outcome Not Healed Not Healed -Ulcer Cleansing Rinsed/ Rinsed/ Irrigated with Irrigated with Saline Saline -Foul Odor after Cleansing No -Bioengineered Tissue No No -Bleeding Controlled with Pressure Pressure -Offloading No No -Treatment Response Procedure Tolerated Well -Debridement - Subq, 1st 20sq cm Yes Yes Pain Scale: 0-10 Numeric Is Patient Pain Free? Yes Yes - Nurse 3 - General Ulcer D/C NN Start: 02/17/20 09:21 Freq: Status: Active Protocol: Activity Type Activity Date Activity User E-Sign Co-Sign Detail Recorded Client Recorded Date Recorded By Document 02/17/20 10:07 [facility] [id number] 02/17/20 10:07 [facility] Document 02/24/20 11:06 [id number] 02/24/20 11:07 [facility] 02/17/20 02/24/20 10:07 11:06 Wound Care Nurse 3 6. L lumbar back -Ulcer Cleansing Rinsed/ Rinsed/ Irrigated with Irrigated with Saline Saline -Foul Odor after Cleansing No No -Primary Dressing Applied NonAdherent C Hydrogel ($) Contact Layer, Other -Other Dressing aquacel ag -Primary Dressing Covered/Secured with Secured with Dry Gauze & Tape,Other Roll Gauze, Secured with Tape -Other Covering abd Treatment Response Procedure Tolerated Well Pain Scale: 0-10 Numeric Is Patient Pain Free? Yes Yes WC - Visit Discharge Discharge Condition Stable Stable Ambulatory Status Ambulatory Ambulatory Transportation Private Auto Private Auto Medication Reconcilliation completed & Yes provided to patient/care provider Clinical Summary of Care Provided Yes Assessment/Plan Active Problems (Last Reviewed 12/03/19 @ 08:[address] 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 Diabetic ulcer right lateral middle back, healed. 2. Nonhealing diabetic ulcer left lateral middle back. 3. Nonhealing diabetic ulcer right flank, s/p surgical closure 01/17/2020. 4. Diabetes mellitus. Plan: Patient was seen and evaluated in the wound center today. A subcutaneous debridement was performed on the left middle, lateral back ulcer. Patient tolerated it well. Wound care: Continue Aquacel AG dressing covered by adaptic to the left lateral middle back ulcer. 10 applications of Epifix to the left middle lateral back ulcer have been completed. Right middle lateral back ulcer does not have to be covered at all times (he is covering it to prevent rubbing). May trial not covering to see how it is tolerated. Right flank incision is dry and intact. Use abdominal wall binder with activity. Operative culture was negative. He was treated perioperatively with Doxycycline. A wound culture was obtained from left lateral middle back ulcer on 02/03/2020, and was negative for aerobic and anaerobic bacteria. Labs from 07/22/19- Prealbumin was 18.7. Encourage nutritional supplementation with protein to help the healing process. HgbA1c was 5.9. Follow up in 2 weeks. 111xxx-113xx: [id number] Pooja subq tissue 20 sq cm/< - 79 modifier - this is for the left lateral back ulcer
[2020-03-09 09:20] VITALS: BP 107/69; PULSE 70; RESP 18; TEMP 36.2; BMI 28.8
--- NOTE | 2020-03-09 13:04 | PN.PCM_ITS ---
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 History of Wound: Surgery 01/17/2020?surgical preparation right flank with excisional debridement of nonhealing painful infected diabetic ulcer of the right flank with 7 cm complex secondary wound closure. Operative culture - negative. He was discharged on Doxycycline and has finished them. The surgical incision is well approximated and healed. Surgery 07/23/19 - 1. Surgical preparation right lateral middle back with incision and drainage and excisional debridement nonhealing infected diabetic ulcer (66 cm2). 2. Surgical preparation left lateral middle back with incision and drainage and excisional debridement nonhealing infected diabetic ulcer (137.75 cm2). Wound care - he has completed 10 applications of Epifix to the left lateral middle back ulcer. He will continue daily Aquacel-Ag with Adaptic to this ulcer. He has persistent pain in the right flank ulcer and a wound culture was obtained on 09/23/19 and it showed Staphylococcus aureus. He was started on Doxycycline and has finished them. Repeat wound culture on 11/04/19 showed Staphylococcus epidermidis and Corynebacterium amycolatum. He was placed on Levaquin and Augmentin and has finished them. Operative cultures from 07/23/19 were positive for resistant Staphylococcus epidermidis (MRSE). He was started on IV Vancomycin since he had been on Doxycyline, Cleocin, and Zyvox in the past for the persistent Staph infections. He developed compromise to the healing skin grafts that necessitated HBO Treatments which he tolerated. Prealbumin from 07/22/19 was 18.7. Encourage nutritonal supplementation with protein to help the healing process. His HgbA1c from 07/22/19 was 5.9. Left lateral middle back ulcer is stable. Right flank ulcer was surgically closed 01/17/20 and remains closed. Wound cultures from the left lateral middle back on 02/03/2020 were negative for aerobic and anaerobic growth. The patient denies any fever, chills, nausea, vomiting, or diarrhea. Denies any increasing pain, redness, swelling, or purulent/malodorous drainage from affected area. Progress of Wound: Left middle lateral back has small improvement. Right middle back remains healed. Right flank is healed. - Physical Exam Vital Signs Temp Pulse Resp BP Pulse Ox 97.2 F L 70 18 107/69 16 03/09/20 09:20 03/09/20 09:20 03/09/20 09:20 03/09/20 09:20 02/16/20 00:17 General: Alert, Oriented x3, Cooperative HEENT: Atraumatic Oral: Moist Mucosa Lungs: Normal air movement Cardiovascular: Regular rate Extremities: No edema, Capillary Refill Less than 3 Seconds Skin: Ulcer/ Wound - Left lateral middle back ulcer is pink. Tender to palpation. Wound Measurements and Assessment WC - Nurse 1 - General Ulcer Measurement Start: 02/17/20 09:21 Freq: Status: Active Protocol: Activity Type Activity Date Activity User E-Sign Co-Sign Detail Recorded Client Recorded Date Recorded By Document 03/09/20 09: YOSELYN [id number] 03/09/20 09:24 DL 03/09/20 09:20 Wound Center Nurse 1 [Ulcer Assessment] 6. L lumbar back -Current Size (cm) - Length 2 -Current Size (cm) - Width 2 -Current Size (cm) - Depth 0.3 -Total Square Cm 4 -Photo Taken No -Exudate Amt Small -Exudate Type Serosanguineous -Wound Margin Distinct, Outline Attached -Granulation Amt Large (67-100%) -Granulation Quality Leslie,Red -Necrosis Amt Small (1-33%) -Necrotic Tissue Type Adherent Slough -Structure Exposed N/A -Texture (Mayra-wound Skin Appearance) Scarring -Moisture (Mayra-wound Skin Appearance No Abnormality ) -Color (Mayra-wound Skin Appearance) No Abnormality -Temperature (Mayra-wound Skin No Abnormality Appearance) (Pt Warm) -Tenderness on Palpation (Mayra-wound Yes Skin Appearance) -Ulcer Cleansing Wound Cleanser -Foul Odor after Cleansing No -Anesthetic Used 4% Lidocaine Solution - Nurse 2 - General Ulcer CM Notes Start: 02/17/20 09:21 Freq: Status: Active Protocol: Activity Type Activity Date Activity User E-Sign Co-Sign Detail Recorded Client Recorded Date Recorded By Document 03/09/20 09:44 [id number] 03/09/20 09:45 03/09/20 09:44 Wound Center Nurse 2 [Procedure/Treatment] -Time 09:44 -Correct Patient Yes -Correct Side, Site, Position Yes -Correct Procedure Yes -Procedure Performed Yes -Type of Procedure Debridement -Clinical Debridement Subcutaneous -Tissue Removed Subcutaneous -Post Debridement (cm) - Length 2.0 -Post Debridement (cm) - Width 2.2 -Post Debridement (cm) - Depth 0.2 -Total Square (Post) (cm) 4.40 -Area of Debridement (cm) - Length 2.0 -Area of Debridement (cm) - Width 2.2 -Total Square (Area) (cm) 4.40 -Tunneling No -Undermining/Tunneling No -Circular Undermining No -Wound/Ulcer Outcome Not Healed -Ulcer Cleansing Rinsed/ Irrigated with Saline -Foul Odor after Cleansing No -Bioengineered Tissue No -Bleeding Controlled with Pressure -Offloading No -Treatment Response Procedure Tolerated Well -Debridement - Subq, 1st 20sq cm Yes [See Physician Procedure note for Specifics] Pain Scale: 0-10 Numeric [Pain] -Is Patient Pain Free? Yes Musculoskeletal: No Tenderness to Palpation of Joints or Extremities Neurological: Cranial nerves II-XII grossly intact Psych/Mental Status: Normal Affect, Appropriate Debridement Note Post-Debridement Measurements/Treatment - Nurse 2 - General Ulcer CM Notes Start: 02/17/20 09:21 Freq: Status: Active Protocol: Activity Type Activity Date Activity User E-Sign Co-Sign Detail Recorded Client Recorded Date Recorded By Document 02/17/20 09:46 [id number] 02/17/20 09:48 Document 02/24/20 10:02 [facility] [id number] 02/24/20 10:04 Document 03/09/20 09:44 [facility] [id number] 03/09/20 09:45 02/17/20 02/24/20 03/09/20 09:46 10:02 09:44 Wound Center Nurse 2 6. L lumbar back -Time 09:46 10:02 09:44 -Correct Patient Yes Yes Yes -Correct Side, Site, Position Yes Yes Yes -Correct Procedure Yes Yes Yes -Procedure Performed Yes Yes Yes -Type of Procedure Debridement Debridement Debridement -Clinical Debridement Subcutaneous Subcutaneous Subcutaneous -Tissue Removed Subcutaneous Subcutaneous Subcutaneous -Post Debridement (cm) - Length 1.7 1.7 2.0 -Post Debridement (cm) - Width 1.7 1.5 2.2 -Post Debridement (cm) - Depth 0.4 0.5 0.2 -Total Square (Post) (cm) 2.89 2.55 4.40 -Area of Debridement (cm) - Length 1.7 1.7 2.0 -Area of Debridement (cm) - Width 1.7 1.5 2.2 -Total Square (Area) (cm) 2.89 2.55 4.40 -Tunneling No No No -Undermining/Tunneling No No No -Circular Undermining No No No -Wound/Ulcer Outcome Not Healed Not Healed Not Healed -Ulcer Cleansing Rinsed/ Rinsed/ Rinsed/ Irrigated with Irrigated with Irrigated with Saline Saline Saline -Foul Odor after Cleansing No No -Bioengineered Tissue No No No -Bleeding Controlled with Pressure Pressure Pressure -Offloading No No No -Treatment Response Procedure Procedure Tolerated Well Tolerated Well -Debridement - Subq, 1st 20sq cm Yes Yes Yes Pain Scale: 0-10 Numeric Is Patient Pain Free? Yes Yes Yes - Nurse 3 - General Ulcer D/C NN Start: 02/17/20 09:21 Freq: Status: Active Protocol: Activity Type Activity Date Activity User E-Sign Co-Sign Detail Recorded Client Recorded Date Recorded By Document 02/17/20 10:07 [facility] [id number] 02/17/20 10:07 [facility] Document 02/24/20 11:06 [id number] 02/24/20 11:07 02/17/20 02/24/20 10:07 11:06 Wound Care Nurse 3 6. L lumbar back -Ulcer Cleansing Rinsed/ Rinsed/ Irrigated with Irrigated with Saline Saline -Foul Odor after Cleansing No No -Primary Dressing Applied NonAdherent C Hydrogel ($) Contact Layer, Other -Other Dressing aquacel ag -Primary Dressing Covered/Secured with Secured with Dry Gauze & Tape,Other Roll Gauze, Secured with Tape -Other Covering abd Treatment Response Procedure Tolerated Well Pain Scale: 0-10 Numeric Is Patient Pain Free? Yes Yes WC - Visit Discharge Discharge Condition Stable Stable Ambulatory Status Ambulatory Ambulatory Transportation Private Auto Private Auto Medication Reconcilliation completed & Yes provided to patient/care provider Clinical Summary of Care Provided Yes Wound debrided: Left lateral middle back ulcer Laterality: Left Type of Debridement: Excisional debridement Anesthesia Used: 5% Lidocaine Gel Depth: Down to and including healthy tissue, in the subcutaneous layer Percentage of wound debrided: 100 Instrument Used: 5mm curette Tissue Removed: Subcutaneous tissue and slough Severity: Fat Layer Exposed Amount of bleeding with debridement: Mild Bleeding Controlled with: Pressure Patient tolerated procedure well Assessment/Plan Active Problems (Last Reviewed 12/03/19 @ 08:[address] 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 Diabetic ulcer right lateral middle back, healed. 2. Nonhealing diabetic ulcer left lateral middle back. 3. Nonhealing diabetic ulcer right flank, s/p surgical closure 01/17/2020. 4. Diabetes mellitus. Plan: Patient was seen and evaluated in the wound center today. A subcutaneous debridement was performed on the left middle, lateral back ulcer. Patient tolerated it well. Wound care: Continue Aquacel AG dressing covered by adaptic to the left lateral middle back ulcer. 10 applications of Epifix to the left middle lateral back ulcer have been completed. Right middle lateral back ulcer does not have to be covered at all times (he is covering it to prevent rubbing). May trial not covering to see how it is tolerated. Right flank incision is healed. Encouraged massage of the right flank and right middle back scar tissue to help soften scarring. Use abdominal wall binder with activity. Operative culture was negative. He was treated perioperatively with Doxycycline. A wound culture was obtained from left lateral middle back ulcer on 02/03/2020, and was negative for aerobic and anaerobic bacteria. Labs from 07/22/19- Prealbumin was 18.7. Encourage nutritional supplementation with protein to help the healing process. HgbA1c was 5.9. Follow up in 2 weeks. 111xxx-113xx: [id number] Pooja subq tissue 20 sq cm/< - 79 modifier - left middle back ulcer
== END 2020-03-16 23:59 ==
LOC: WC 09:15
PROVIDERS: Family Provider Family Medicine; PCP Family Medicine; Referring Provider Nurse Practitioner Family; Visit Provider Nurse Practitioner Family
DX: L98.492 Non-pressure chronic ulcer of skin of other sites with fat layer exposed (principal); T86.829 Unspecified complication of skin graft (allograft) (autograft); E11.9 Type 2 diabetes mellitus without complications
CPT/HCPCS: 11042

== ENCOUNTER 2020-04-06 09:15 | Outpatient (RCR) | payer OTHER, SELFPAY ==
[2020-03-17 00:19] VITALS: BP 107/69; PULSE 70; RESP 18; TEMP 36.2; O2SAT 16
[2020-03-23 09:22] VITALS: BP 128/78; PULSE 74; RESP 16; TEMP 36.4; BMI 28.8
--- NOTE | 2020-03-23 13:03 | PN.PCM_ITS ---
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 History of Wound: Surgery 01/17/2020?surgical preparation right flank with excisional debridement of nonhealing painful infected diabetic ulcer of the right flank with 7 cm complex secondary wound closure. Operative culture - negative. He was discharged on Doxycycline and has finished them. The surgical incision is well approximated and healed. Surgery 07/23/19 - 1. Surgical preparation right lateral middle back with incision and drainage and excisional debridement nonhealing infected diabetic ulcer (66 cm2). 2. Surgical preparation left lateral middle back with incision and drainage and excisional debridement nonhealing infected diabetic ulcer (137.75 cm2). Wound care - he has completed 10 applications of Epifix to the left lateral middle back ulcer. He will continue daily Aquacel-Ag with Adaptic to this ulcer. He has persistent pain in the right flank ulcer and a wound culture was obtained on 09/23/19 and it showed Staphylococcus aureus. He was started on Doxycycline and has finished them. Repeat wound culture on 11/04/19 showed Staphylococcus epidermidis and Corynebacterium amycolatum. He was placed on Levaquin and Augmentin and has finished them. Operative cultures from 07/23/19 were positive for resistant Staphylococcus epidermidis (MRSE). He was started on IV Vancomycin since he had been on Doxycyline, Cleocin, and Zyvox in the past for the persistent Staph infections. He developed compromise to the healing skin grafts that necessitated HBO Treatments which he tolerated. Prealbumin from 07/22/19 was 18.7. Encourage nutritonal supplementation with protein to help the healing process. His HgbA1c from 07/22/19 was 5.9. Left lateral middle back ulcer is stable. Right flank ulcer was surgically closed 01/17/20 and remains closed. Wound cultures from the left lateral middle back on 02/03/2020 were negative for aerobic and anaerobic growth. The patient denies any fever, chills, nausea, vomiting, or diarrhea. Denies any increasing pain, redness, swelling, or purulent/malodorous drainage from affected area. Progress of Wound: Left middle lateral back has small improvement. Right middle back remains healed. Right flank is healed. - Physical Exam Vital Signs Temp Pulse Resp BP Pulse Ox 97.5 F L 74 16 128/78 H 16 03/23/20 09:22 03/23/20 09:22 03/23/20 09:22 03/23/20 09:22 03/17/20 00:19 General: Alert, Oriented x3, Cooperative HEENT: Atraumatic Oral: Moist Mucosa Lungs: Normal air movement Cardiovascular: Regular rate Abdomen: Soft Extremities: Capillary Refill Less than 3 Seconds Skin: Ulcer/ Wound - Left lateral middle back ulcer is pink and tender to palpation., Incision - Incision on right flank is healed, there is a small area that had a blood like blister (less than a mm diameter) that most likely is from a piece of suture, when touched with pick ups it drained a scant amount of serosanguineous fluid and is now flat. Wound Measurements and Assessment WC - Nurse 1 - General Ulcer Measurement Start: 03/23/20 09:22 Freq: Status: Active Protocol: Activity Type Activity Date Activity User E-Sign Co-Sign Detail Recorded Client Recorded Date Recorded By Document 03/23/20 09:22 [facility] [id number] 03/23/20 09:29 [facility] 03/23/20 09:22 Wound Center Nurse 1 [Ulcer Assessment] 6. L lumbar back -Combined with other wound No -Current Size (cm) - Length 2.2 -Current Size (cm) - Width 2.2 -Current Size (cm) - Depth 0.3 -Total Square Cm 4.84 -Photo Taken No -Epithelialization None Present -Tunneling No -Undermining/Tunneling No -Circular Undermining No -Exudate Amt Small -Exudate Type Serosanguineous -Wound Margin Distinct, Outline Attached -Granulation Amt Large (67-100%) -Granulation Quality Red -Slough/Fibrin Yes -Necrosis Amt Small (1-33%) -Necrotic Tissue Type Adherent Slough -Texture (Mayra-wound Skin Appearance) Assessed, Scarring -Moisture (Mayra-wound Skin Appearance Assessed ) -Color (Mayra-wound Skin Appearance) Assessed -Temperature (Mayra-wound Skin No Abnormality Appearance) (Pt Warm) -Tenderness on Palpation (Mayra-wound Yes Skin Appearance) -Ulcer Cleansing Rinsed/ Irrigated with Saline -Foul Odor after Cleansing No -Anesthetic Used 4% Lidocaine Solution SANDEEP - Nurse 2 - General Ulcer CM Notes Start: 03/23/20 09:22 Freq: Status: Active Protocol: Activity Type Activity Date Activity User E-Sign Co-Sign Detail Recorded Client Recorded Date Recorded By Document 03/23/20 09:40 [id number] 03/23/20 09:48 03/23/20 09:40 Wound Center Nurse 2 [Procedure/Treatment] -Time 09:40 -Correct Patient Yes -Correct Side, Site, Position Yes -Correct Procedure Yes -Procedure Performed Yes -Type of Procedure Debridement -Clinical Debridement Subcutaneous -Tissue Removed Subcutaneous -Post Debridement (cm) - Length 2.7 -Post Debridement (cm) - Width 2.3 -Post Debridement (cm) - Depth 0.5 -Total Square (Post) (cm) 6.21 -Area of Debridement (cm) - Length 2.7 -Area of Debridement (cm) - Width 2.3 -Total Square (Area) (cm) 6.21 -Tunneling No -Undermining/Tunneling No -Circular Undermining No -Wound/Ulcer Outcome Not Healed -Ulcer Cleansing Rinsed/ Irrigated with Saline -Foul Odor after Cleansing No -Bioengineered Tissue No -Bleeding Controlled with Pressure -Offloading No -Treatment Response Procedure Tolerated Well -Debridement - Subq, 1st 20sq cm Yes [See Physician Procedure note for Specifics] Pain Scale: 0-10 Numeric [Pain] -Is Patient Pain Free? Yes SANDEEP - Nurse 3 - General Ulcer D/C NN Start: 03/23/20 09:22 Freq: Status: Active Protocol: Activity Type Activity Date Activity User E-Sign Co-Sign Detail Recorded Client Recorded Date Recorded By Document 03/23/20 09:56 [facility] [id number] 03/23/20 09:58 [facility] 03/23/20 09:56 Wound Care Nurse 3 [Wound Dressing] 6. L lumbar back -Ulcer Cleansing Rinsed/ Irrigated with Saline -Foul Odor after Cleansing No -Primary Dressing Applied NonAdherent Contact Layer, Other -Other Dressing aquacel ag -Primary Dressing Covered/Secured Secured with with Tape,Other -Other Covering abd [Post Procedure Tolerated] -Treatment Response Procedure Tolerated Well Pain Scale: 0-10 Numeric [Pain] -Is Patient Pain Free? Yes - Visit Discharge [Visit Discharge Information] -Discharge Condition Stable -Ambulatory Status Ambulatory -Transportation Private Auto Musculoskeletal: No Tenderness to Palpation of Joints or Extremities Neurological: Cranial nerves II-XII grossly intact Psych/Mental Status: Normal Affect, Appropriate Debridement Note Post-Debridement Measurements/Treatment WC - Nurse 2 - General Ulcer CM Notes Start: 03/23/20 09:22 Freq: Status: Active Protocol: Activity Type Activity Date Activity User E-Sign Co-Sign Detail Recorded Client Recorded Date Recorded By Document 03/23/20 09:40 [facility] [id number] 03/23/20 09:48 03/23/20 09:40 Wound Center Nurse 2 6. L lumbar back -Time 09:40 -Correct Patient Yes -Correct Side, Site, Position Yes -Correct Procedure Yes -Procedure Performed Yes -Type of Procedure Debridement -Clinical Debridement Subcutaneous -Tissue Removed Subcutaneous -Post Debridement (cm) - Length 2.7 -Post Debridement (cm) - Width 2.3 -Post Debridement (cm) - Depth 0.5 -Total Square (Post) (cm) 6.21 -Area of Debridement (cm) - Length 2.7 -Area of Debridement (cm) - Width 2.3 -Total Square (Area) (cm) 6.21 -Tunneling No -Undermining/Tunneling No -Circular Undermining No -Wound/Ulcer Outcome Not Healed -Ulcer Cleansing Rinsed/ Irrigated with Saline -Foul Odor after Cleansing No -Bioengineered Tissue No -Bleeding Controlled with Pressure -Offloading No -Treatment Response Procedure Tolerated Well -Debridement - Subq, 1st 20sq cm Yes Pain Scale: 0-10 Numeric Is Patient Pain Free? Yes - Nurse 3 - General Ulcer D/C NN Start: 03/23/20 09:22 Freq: Status: Active Protocol: Activity Type Activity Date Activity User E-Sign Co-Sign Detail Recorded Client Recorded Date Recorded By Document 03/23/20 09:56 [facility] [id number] 03/23/20 09:58 [facility] 03/23/20 09:56 Wound Care Nurse 3 6. L lumbar back -Ulcer Cleansing Rinsed/ Irrigated with Saline -Foul Odor after Cleansing No -Primary Dressing Applied NonAdherent Contact Layer, Other -Other Dressing aquacel ag -Primary Dressing Covered/Secured with Secured with Tape,Other -Other Covering abd Treatment Response Procedure Tolerated Well Pain Scale: 0-10 Numeric Is Patient Pain Free? Yes WC - Visit Discharge Discharge Condition Stable Ambulatory Status Ambulatory Transportation Private Auto Wound debrided: middle lateral back ulcer Laterality: Left Type of Debridement: Excisional debridement Anesthesia Used: 5% Lidocaine Gel Depth: Down to and including healthy tissue, in the subcutaneous layer Percentage of wound debrided: 100 Instrument Used: 3mm curette Tissue Removed: Subcutaneous tissue and slough Severity: Fat Layer Exposed Amount of bleeding with debridement: Mild Bleeding Controlled with: Pressure Patient tolerated procedure well Assessment/Plan Active Problems (Last Reviewed 03/18/20 @ 16:[address] 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 Diabetic ulcer right lateral middle back, healed. 2. Nonhealing diabetic ulcer left lateral middle back. 3. Nonhealing diabetic ulcer right flank, s/p surgical closure 01/17/2020. 4. Diabetes mellitus. Plan: Patient was seen and evaluated in the wound center today. A subcutaneous debridement was performed on the left middle, lateral back ulcer. Patient tolerated it well. Wound care: Continue Aquacel AG dressing covered by adaptic to the left lateral middle back ulcer. 10 applications of Epifix to the left middle lateral back ulcer have been completed. Right middle lateral back ulcer does not have to be covered at all times (he is covering it to prevent rubbing). May trial not covering to see how it is tolerated. Right flank incision is healed. Today he had a small raised area along the incision line that was less than 1 mm diameter that drained a small amount of serousanguineous fluid when touched with pick ups, most likely caused from a dissolving suture. Will place collagen hydrogel on the area, no debridement done and not painful. Encouraged massage of the right flank and right middle back scar tissue to help soften scarring. Use abdominal wall binder with activity. Operative culture was negative. He was treated perioperatively with Doxycycline. A wound culture was obtained from left lateral middle back ulcer on 02/03/2020, and was negative for aerobic and anaerobic bacteria. Labs from 07/22/19- Prealbumin was 18.7. Encourage nutritional supplementation with protein to help the healing process. HgbA1c was 5.9. He has an appointment with ID at [facility] on 04/03/20. Follow up in 2 weeks. 111xxx-113xx: [id number] Pooja subq tissue 20 sq cm/< - 79 modifier -debrided left middle, lateral back ulcer.
[2020-03-30 08:36] VITALS: BP 128/81; PULSE 76; RESP 16; TEMP 35.9; BMI 28.8
--- NOTE | 2020-03-30 12:58 | PN.PCM_ITS ---
Type of Wound Date of Service: 03/30/20 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: Nonhealing diabetic ulcer left lateral middle back and nonhealing diabetic ulcer right flank recently closed 01/17/20. History of Wound: Surgery 01/17/2020?surgical preparation right flank with excisional debridement of nonhealing painful infected diabetic ulcer of the right flank with 7 cm complex secondary wound closure. Operative culture - negative. He was discharged on Doxycycline and has finished them. The surgical incision is well approximated and healed. Surgery 07/23/19 - 1. Surgical preparation right lateral middle back with incision and drainage and excisional debridement nonhealing infected diabetic ulcer (66 cm2). 2. Surgical preparation left lateral middle back with incision and drainage and excisional debridement nonhealing infected diabetic ulcer (137.75 cm2). Wound care - he has completed 10 applications of Epifix to the left lateral middle back ulcer. He will continue dailyAquacel-Ag with Adaptic to this ulcer. He has persistent pain in the right flank ulcer and a wound culture was obtained on 09/23/19 and it showed Staphylococcus aureus. He was started on Doxycycline and has finished them. Repeat wound culture on 11/04/19 showed Staphylococcus epidermidis and Corynebacterium amycolatum. He was placed on Levaquin and Augmentin and has finished them. Operative cultures from 07/23/19 were positive for resistant Staphylococcus epidermidis (MRSE). He was started on IV Vancomycin since he had been on Doxycyline, Cleocin, and Zyvox in the past for the persistent Staph infections. He developed compromise to the healing skin grafts that necessitated HBO Treatments which he tolerated. Prealbumin from 07/22/19 was 18.7. Encourage nutritonal supplementation with protein to help the healing process. His HgbA1c from 07/22/19 was 5.9. Left lateral middle back ulcer is stable. Right flank ulcer was surgically closed 01/17/20 and remains closed. Wound cultures from the left lateral middle back on 02/03/2020 were negative for aerobic and anaerobic growth. There was a repeat culture on 03/23/20 which showed MRSE. He is currently on Clindamycin. The patient denies any fever. His appetite is ok. Progress of Wound: Left middle lateral back has small improvement. Right middle back remains healed. Right flank is healed. - Physical Exam Vital Signs Temp Pulse Resp BP Pulse Ox 96.7 F L 76 16 128/81 H 16 03/30/20 08:36 03/30/20 08:36 03/30/20 08:36 03/30/20 08:36 03/17/20 00:19 Wound Measurements and Assessment - Nurse 1 - General Ulcer Measurement Start: 03/23/20 09:22 Freq: Status: Active Protocol: Activity Type Activity Date Activity User E-Sign Co-Sign Detail Recorded Client Recorded Date Recorded By Document 03/30/20 08:36 [facility] [id number] 03/30/20 08:44 [facility] 03/30/20 08:36 Wound Center Nurse 1 [Ulcer Assessment] 6. L lumbar back -Combined with other wound No -Current Size (cm) - Length 0.9 -Current Size (cm) - Width 2 -Current Size (cm) - Depth 0.3 -Total Square Cm 1.8 -Photo Taken No -Epithelialization None Present -Tunneling No -Undermining/Tunneling No -Circular Undermining No -Exudate Amt Small -Exudate Type Serosanguineous -Wound Margin Distinct, Outline Attached -Granulation Amt Large (67-100%) -Granulation Quality Red -Slough/Fibrin Yes -Necrosis Amt Small (1-33%) -Necrotic Tissue Type Adherent Slough -Texture (Mayra-wound Skin Appearance) Assessed, Scarring -Moisture (Mayra-wound Skin Appearance Assessed ) -Color (Mayra-wound Skin Appearance) Assessed -Temperature (Mayra-wound Skin No Abnormality Appearance) (Pt Warm) -Tenderness on Palpation (Mayra-wound No Skin Appearance) -Ulcer Cleansing Rinsed/ Irrigated with Saline -Foul Odor after Cleansing No -Anesthetic Used 5% Lidocaine Gel - Nurse 2 - General Ulcer CM Notes Start: 03/23/20 09:22 Freq: Status: Active Protocol: Activity Type Activity Date Activity User E-Sign Co-Sign Detail Recorded Client Recorded Date Recorded By Document 03/30/20 09:18 [id number] 03/30/20 09:20 [facility] 03/30/20 09:18 Wound Center Nurse 2 [Procedure/Treatment] -Time 09:19 -Correct Patient Yes -Correct Side, Site, Position Yes -Correct Procedure Yes -Procedure Performed Yes -Type of Procedure Debridement -Clinical Debridement Subcutaneous -Tissue Removed Subcutaneous -Post Debridement (cm) - Length 2 -Post Debridement (cm) - Width 2 -Post Debridement (cm) - Depth 0.3 -Total Square (Post) (cm) 4 -Area of Debridement (cm) - Length 2 -Area of Debridement (cm) - Width 2 -Total Square (Area) (cm) 4 -Tunneling No -Undermining/Tunneling No -Circular Undermining No -Wound/Ulcer Outcome Not Healed -Ulcer Cleansing Rinsed/ Irrigated with Saline -Foul Odor after Cleansing No -Bioengineered Tissue No -Bleeding Controlled with Pressure -Offloading No -Treatment Response Procedure Tolerated Well -Debridement - Subq, 1st 20sq cm Yes [See Physician Procedure note for Specifics] Pain Scale: 0-10 Numeric [Pain] -Is Patient Pain Free? Yes - Nurse 3 - General Ulcer D/C NN Start: 03/23/20 09:22 Freq: Status: Active Protocol: Activity Type Activity Date Activity User E-Sign Co-Sign Detail Recorded Client Recorded Date Recorded By Document 03/30/20 09:34 [facility] [id number] 03/30/20 09:34 [facility] 03/30/20 09:34 Wound Care Nurse 3 [Wound Dressing] 6. L lumbar back -Ulcer Cleansing Rinsed/ Irrigated with Saline -Foul Odor after Cleansing No -Primary Dressing Applied Other -Other Dressing aquacel ag, adaptic -Primary Dressing Covered/Secured Secured with with Tape,Other -Other Covering abd [Post Procedure Tolerated] -Treatment Response Procedure Tolerated Well Pain Scale: 0-10 Numeric [Pain] -Is Patient Pain Free? Yes - Visit Discharge [Visit Discharge Information] -Discharge Condition Stable -Ambulatory Status Ambulatory -Transportation Private Auto Debridement Note Post-Debridement Measurements/Treatment - Nurse 2 - General Ulcer CM Notes Start: 03/23/20 09:22 Freq: Status: Active Protocol: Activity Type Activity Date Activity User E-Sign Co-Sign Detail Recorded Client Recorded Date Recorded By Document 03/23/20 09:40 [id number] 03/23/20 09:48 Document 03/30/20 09:18 [id number] 03/30/20 09:20 [facility] 03/23/20 03/30/20 09:40 09:18 Wound Center Nurse 2 6. L lumbar back -Time 09:40 09:19 -Correct Patient Yes Yes -Correct Side, Site, Position Yes Yes -Correct Procedure Yes Yes -Procedure Performed Yes Yes -Type of Procedure Debridement Debridement -Clinical Debridement Subcutaneous Subcutaneous -Tissue Removed Subcutaneous Subcutaneous -Post Debridement (cm) - Length 2.7 2 -Post Debridement (cm) - Width 2.3 2 -Post Debridement (cm) - Depth 0.5 0.3 -Total Square (Post) (cm) 6.21 4 -Area of Debridement (cm) - Length 2.7 2 -Area of Debridement (cm) - Width 2.3 2 -Total Square (Area) (cm) 6.21 4 -Tunneling No No -Undermining/Tunneling No No -Circular Undermining No No -Wound/Ulcer Outcome Not Healed Not Healed -Ulcer Cleansing Rinsed/ Rinsed/ Irrigated with Irrigated with Saline Saline -Foul Odor after Cleansing No No -Bioengineered Tissue No No -Bleeding Controlled with Pressure Pressure -Offloading No No -Treatment Response Procedure Procedure Tolerated Well Tolerated Well -Debridement - Subq, 1st 20sq cm Yes Yes Pain Scale: 0-10 Numeric Is Patient Pain Free? Yes Yes - Nurse 3 - General Ulcer D/C NN Start: 03/23/20 09:22 Freq: Status: Active Protocol: Activity Type Activity Date Activity User E-Sign Co-Sign Detail Recorded Client Recorded Date Recorded By Document 03/23/20 09:56 [facility] [id number] 03/23/20 09:58 [facility] Document 03/30/20 09:34 [facility] [id number] 03/30/20 09:34 [facility] 03/23/20 03/30/20 09:56 09:34 Wound Care Nurse 3 6. L lumbar back -Ulcer Cleansing Rinsed/ Rinsed/ Irrigated with Irrigated with Saline Saline -Foul Odor after Cleansing No No -Primary Dressing Applied NonAdherent Other Contact Layer, Other -Other Dressing aquacel ag aquacel ag, adaptic -Primary Dressing Covered/Secured with Secured with Secured with Tape,Other Tape,Other -Other Covering abd abd Treatment Response Procedure Procedure Tolerated Well Tolerated Well Pain Scale: 0-10 Numeric Is Patient Pain Free? Yes Yes - Visit Discharge Discharge Condition Stable Stable Ambulatory Status Ambulatory Ambulatory Transportation Private Auto Private Auto Wound debrided: #6 Left lateral middle back. Laterality: Left Wound Grade/Stage: 2. Type of Debridement: Excisional debridement Anesthesia Used: 4% Lidocaine Solution Depth: Down to and including healthy tissue, in the subcutaneous layer Percentage of wound debrided: 100 Instrument Used: 3mm curette Tissue Removed: subcutaneous tissue. Severity: Fat Layer Exposed Amount of bleeding with debridement: Mild Bleeding Controlled with: Pressure Patient tolerated procedure well Assessment/Plan Active Problems (Last Reviewed 03/18/20 @ 16:[address] 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 Diabetic ulcer right lateral middle back, healed. 2. Nonhealing diabetic ulcer left lateral middle back. 3. Nonhealing diabetic ulcer right flank, s/p surgical closure 01/17/2020. 4. Diabetes mellitus. Plan: Continue Aquacel AG dressing covered by adaptic to the left lateral middle back ulcer. 10 applications of Epifix to the left middle lateral back ulcer have been completed. Right middle lateral back ulcer does not have to be covered at all times (he is covering it to prevent rubbing). May trial not covering to see how it is tolerated. Right flank incision is healed. There was a small opening at the end of the incision from a suture. It has drained and appears healed today. There is also a small superficial abrasion centrally off the incision probably from the dressing. Continue collagen hydrogel to the area. Encouraged massage of the right flank and right middle back scar tissue to help soften scarring. Use abdominal wall binder with activity. Operative culture (01/17/20) was negative. He was treated perioperatively with Doxycycline. A wound culture was obtained from left lateral middle back ulcer on 02/03/2020, and was negative for aerobic and anaerobic bacteria. Another wound culture from 03/23/20 showed MRSE. He is currently on Clindamycin. Labs from 07/22/19- Prealbumin was 18.7. Encourage nutritional supplementation with protein to help the healing process. HgbA1c was 5.9. He has an appointment with ID at [facility] on 04/03/20. Follow up one week. [id number]: [id number] Pooja subq tissue 20 sq cm/< - -79 Modifier ICD-10 - L 98.492, A49.8, E11.9, T86.829
[2020-04-06 09:25] VITALS: BP 120/68; PULSE 18; RESP 18; TEMP 36.6; BMI 28.8
--- NOTE | 2020-04-06 13:22 | PN.PCM_ITS ---
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 History of Wound: Surgery 01/17/2020?surgical preparation right flank with excisional debridement of nonhealing painful infected diabetic ulcer of the right flank with 7 cm complex secondary wound closure. Operative culture - negative. He was discharged on Doxycycline and has finished them. The surgical incision is well approximated and had healed. He now has two small areas on the incision line that are opened and draining. He is placing silver and compression. Surgery 07/23/19 - 1. Surgical preparation right lateral middle back with incision and drainage and excisional debridement nonhealing infected diabetic ulcer (66 cm2). 2. Surgical preparation left lateral middle back with incision and drainage and excisional debridement nonhealing infected diabetic ulcer (137.75 cm2). Wound care - he has completed 10 applications of Epifix to the left lateral middle back ulcer. He will continue dailyAquacel-Ag with Adaptic to this ulcer. He has persistent pain in the right flank ulcer and a wound culture was obtained on 09/23/19 and it showed Staphylococcus aureus. He was started on Doxycycline and has finished them. Repeat wound culture on 11/04/19 showed Staphylococcus epidermidis and Corynebacterium amycolatum. He was placed on Levaquin and Augmentin and has finished them. Operative cultures from 07/23/19 were positive for resistant Staphylococcus epidermidis (MRSE). He was started on IV Vancomycin since he had been on Doxycyline, Cleocin, and Zyvox in the past for the persistent Staph infections. He developed compromise to the healing skin grafts that necessitated HBO Treatments which he tolerated. Prealbumin from 07/22/19 was 18.7. Encourage nutritonal supplementation with protein to help the healing process. His HgbA1c from 07/22/19 was 5.9. Left lateral middle back ulcer is stable. Right flank ulcer was surgically closed 01/17/20 and remains closed. Wound cultures from the left lateral middle back on 02/03/2020 were negative for aerobic and anaerobic growth. There was a repeat culture on 03/23/20 which showed MRSE. He has completed Clindamycin. Today he denies any fever. He states his appetite is good. Progress of Wound: Left middle lateral back has small improvement. Right middle back remains healed. Right flank has two small areas that are draining. - Physical Exam Vital Signs Temp Pulse Resp BP Pulse Ox 97.9 F 18 L 18 120/68 16 04/06/20 09:25 04/06/20 09:25 04/06/20 09:25 04/06/20 09:25 03/17/20 00:19 General: Alert, Oriented x3, Cooperative HEENT: Atraumatic Oral: Moist Mucosa Lungs: Normal air movement Cardiovascular: Regular rate Extremities: Capillary Refill Less than 3 Seconds Skin: Ulcer/ Wound - Left lateral middle back ulcer is pink but painful to touch. Right flank incision now has two small areas that have opened and are draining serosanguineous drainage. Wound Measurements and Assessment WC - Nurse 1 - General Ulcer Measurement Start: 03/23/20 09:22 Freq: Status: Active Protocol: Activity Type Activity Date Activity User E-Sign Co-Sign Detail Recorded Client Recorded Date Recorded By Document 04/06/20 09:25 DL [id number] 04/06/20 09:34 DL 04/06/20 09:25 Wound Center Nurse 1 [Ulcer Assessment] #8 Right lower side cluster -Current Size (cm) - Length 0.3 -Current Size (cm) - Width 6.9 -Current Size (cm) - Depth 0.2 -Total Square Cm 2.07 -Exudate Amt Medium -Exudate Type Serosanguineous -Wound Margin Distinct, Outline Attached -Granulation Amt None Present (0 %) -Necrosis Amt Large (67-100%) -Necrotic Tissue Type Adherent Slough -Texture (Mayra-wound Skin Appearance) Assessed, Scarring -Moisture (Mayra-wound Skin Appearance No Abnormality, ) Assessed -Color (Mayra-wound Skin Appearance) No Abnormality, Assessed -Temperature (Mayra-wound Skin No Abnormality Appearance) (Pt Warm) -Tenderness on Palpation (Mayra-wound No Skin Appearance) -Ulcer Cleansing Rinsed/ Irrigated with Saline -Foul Odor after Cleansing No -Anesthetic Used 5% Lidocaine Gel 6. L lumbar back -Current Size (cm) - Length 1.3 -Current Size (cm) - Width 1.9 -Current Size (cm) - Depth 0.4 -Total Square Cm 2.47 -Photo Taken No -Exudate Amt Small -Exudate Type Serosanguineous -Wound Margin Distinct, Outline Attached -Granulation Amt Large (67-100%) -Granulation Quality Red -Necrosis Amt Small (1-33%) -Necrotic Tissue Type Adherent Slough -Structure Exposed N/A -Texture (Mayra-wound Skin Appearance) Scarring -Moisture (Mayra-wound Skin Appearance No Abnormality ) -Color (Amyra-wound Skin Appearance) Rubor -Temperature (Mayra-wound Skin No Abnormality Appearance) (Pt Warm) -Tenderness on Palpation (Mayra-wound Yes Skin Appearance) -Ulcer Cleansing Rinsed/ Irrigated with Saline -Foul Odor after Cleansing No -Anesthetic Used 5% Lidocaine Gel WC - Nurse 2 - General Ulcer CM Notes Start: 03/23/20 09:22 Freq: Status: Active Protocol: Activity Type Activity Date Activity User E-Sign Co-Sign Detail Recorded Client Recorded Date Recorded By Document 04/06/20 10:10 [facility] [id number] 04/06/20 10:15 [facility] 04/06/20 10:10 Wound Center Nurse 2 [Procedure/Treatment] #8 Right lower side cluster -Time 10:14 -Correct Patient Yes -Correct Side, Site, Position Yes -Correct Procedure Yes -Procedure Performed Yes -Type of Procedure Debridement -Clinical Debridement Subcutaneous -Tissue Removed Subcutaneous -Post Debridement (cm) - Length 0.5 -Post Debridement (cm) - Width 0.5 -Post Debridement (cm) - Depth 0.2 -Total Square (Post) (cm) 0.25 -Area of Debridement (cm) - Length 0.5 -Area of Debridement (cm) - Width 0.5 -Total Square (Area) (cm) 0.25 -Tunneling No -Undermining/Tunneling No -Circular Undermining No -Wound/Ulcer Outcome Not Healed -Ulcer Cleansing Rinsed/ Irrigated with Saline -Foul Odor after Cleansing No -Bioengineered Tissue No -Bleeding Controlled with Pressure -Offloading No -Treatment Response Procedure Tolerated Well -Debridement - Subq, 1st 20sq cm No 6. L lumbar back -Time 10:12 -Correct Patient Yes -Correct Side, Site, Position Yes -Correct Procedure Yes -Procedure Performed Yes -Type of Procedure Debridement -Clinical Debridement Subcutaneous -Tissue Removed Subcutaneous -Post Debridement (cm) - Length 2 -Post Debridement (cm) - Width 1.7 -Post Debridement (cm) - Depth 0.3 -Total Square (Post) (cm) 3.4 -Area of Debridement (cm) - Length 2 -Area of Debridement (cm) - Width 1.7 -Total Square (Area) (cm) 3.4 -Tunneling No -Undermining/Tunneling No -Circular Undermining No -Wound/Ulcer Outcome Not Healed -Ulcer Cleansing Rinsed/ Irrigated with Saline -Foul Odor after Cleansing No -Bioengineered Tissue No -Bleeding Controlled with Pressure -Offloading No -Treatment Response Procedure Tolerated Well -Debridement - Subq, 1st 20sq cm Yes [See Physician Procedure note for Specifics] Pain Scale: 0-10 Numeric [Pain] -Is Patient Pain Free? Yes WC - Nurse 3 - General Ulcer D/C NN Start: 03/23/20 09:22 Freq: Status: Active Protocol: Activity Type Activity Date Activity User E-Sign Co-Sign Detail Recorded Client Recorded Date Recorded By Document 04/06/20 10:33 DL [id number] 04/06/20 10:34 DL 04/06/20 10:33 Wound Care Nurse 3 [Wound Dressing] #8 Right lower side cluster -Ulcer Cleansing Rinsed/ Irrigated with Saline -Foul Odor after Cleansing No -Negative Pressure Wound Therapy N/A -Primary Dressing Applied Aquacel AG 4x4 -Primary Dressing Covered/Secured Dry Gauze, with Secured with Tape -Aquacel AG 4x4 1 6. L lumbar back -Ulcer Cleansing Rinsed/ Irrigated with Saline -Foul Odor after Cleansing No -Negative Pressure Wound Therapy N/A -Primary Dressing Covered/Secured Dry Gauze, with Secured with Tape Pain Scale: 0-10 Numeric [Pain] -Is Patient Pain Free? Yes - Visit Discharge [Visit Discharge Information] -Discharge Condition Stable -Ambulatory Status Ambulatory -Transportation Private Auto Musculoskeletal: No Tenderness to Palpation of Joints or Extremities Lymphatic: No Cervical, Supraclavicular, or Inguinal Adenopathy Neurological: Cranial nerves II-XII grossly intact Psych/Mental Status: Normal Affect, Appropriate Debridement Note Post-Debridement Measurements/Treatment - Nurse 2 - General Ulcer CM Notes Start: 03/23/20 09:22 Freq: Status: Active Protocol: Activity Type Activity Date Activity User E-Sign Co-Sign Detail Recorded Client Recorded Date Recorded By Document 03/23/20 09:40 [id number] 03/23/20 09:48 Document 03/30/20 09:18 [id number] 03/30/20 09:20 Document 04/06/20 10:10 [id number] 04/06/20 10:15 03/23/20 03/30/20 04/06/20 09:40 09:18 10:10 Wound Center Nurse 2 #8 Right lower side cluster -Time 10:14 -Correct Patient Yes -Correct Side, Site, Position Yes -Correct Procedure Yes -Procedure Performed Yes -Type of Procedure Debridement -Clinical Debridement Subcutaneous -Tissue Removed Subcutaneous -Post Debridement (cm) - Length 0.5 -Post Debridement (cm) - Width 0.5 -Post Debridement (cm) - Depth 0.2 -Total Square (Post) (cm) 0.25 -Area of Debridement (cm) - Length 0.5 -Area of Debridement (cm) - Width 0.5 -Total Square (Area) (cm) 0.25 -Tunneling No -Undermining/Tunneling No -Circular Undermining No -Wound/Ulcer Outcome Not Healed -Ulcer Cleansing Rinsed/ Irrigated with Saline -Foul Odor after Cleansing No -Bioengineered Tissue No -Bleeding Controlled with Pressure -Offloading No -Treatment Response Procedure Tolerated Well -Debridement - Subq, 1st 20sq cm No 6. L lumbar back -Time 09:40 09:19 10:12 -Correct Patient Yes Yes Yes -Correct Side, Site, Position Yes Yes Yes -Correct Procedure Yes Yes Yes -Procedure Performed Yes Yes Yes -Type of Procedure Debridement Debridement Debridement -Clinical Debridement Subcutaneous Subcutaneous Subcutaneous -Tissue Removed Subcutaneous Subcutaneous Subcutaneous -Post Debridement (cm) - Length 2.7 2 2 -Post Debridement (cm) - Width 2.3 2 1.7 -Post Debridement (cm) - Depth 0.5 0.3 0.3 -Total Square (Post) (cm) 6.21 4 3.4 -Area of Debridement (cm) - Length 2.7 2 2 -Area of Debridement (cm) - Width 2.3 2 1.7 -Total Square (Area) (cm) 6.21 4 3.4 -Tunneling No No No -Undermining/Tunneling No No No -Circular Undermining No No No -Wound/Ulcer Outcome Not Healed Not Healed Not Healed -Ulcer Cleansing Rinsed/ Rinsed/ Rinsed/ Irrigated with Irrigated with Irrigated with Saline Saline Saline -Foul Odor after Cleansing No No No -Bioengineered Tissue No No No -Bleeding Controlled with Pressure Pressure Pressure -Offloading No No No -Treatment Response Procedure Procedure Procedure Tolerated Well Tolerated Well Tolerated Well -Debridement - Subq, 1st 20sq cm Yes Yes Yes Pain Scale: 0-10 Numeric Is Patient Pain Free? Yes Yes Yes WC - Nurse 3 - General Ulcer D/C NN Start: 03/23/20 09:22 Freq: Status: Active Protocol: Activity Type Activity Date Activity User E-Sign Co-Sign Detail Recorded Client Recorded Date Recorded By Document 03/23/20 09:56 [facility] [id number] 03/23/20 09:58 BM Document 03/30/20 09:34 [facility] [id number] 03/30/20 09:34 BM Document 04/06/20 10:33 DL [id number] 04/06/20 10:34 DL 03/23/20 03/30/20 04/06/20 09:56 09:34 10:33 Wound Care Nurse 3 #8 Right lower side cluster -Ulcer Cleansing Rinsed/ Irrigated with Saline -Foul Odor after Cleansing No -Negative Pressure Wound Therapy N/A -Primary Dressing Applied Aquacel AG 4x4 -Primary Dressing Covered/Secured with Dry Gauze, Secured with Tape -Aquacel AG 4x4 1 6. L lumbar back -Ulcer Cleansing Rinsed/ Rinsed/ Rinsed/ Irrigated with Irrigated with Irrigated with Saline Saline Saline -Foul Odor after Cleansing No No No -Negative Pressure Wound Therapy N/A -Primary Dressing Applied NonAdherent Other Contact Layer, Other -Other Dressing aquacel ag aquacel ag, adaptic -Primary Dressing Covered/Secured with Secured with Secured with Dry Gauze, Tape,Other Tape,Other Secured with Tape -Other Covering abd abd Treatment Response Procedure Procedure Tolerated Well Tolerated Well Pain Scale: 0-10 Numeric Is Patient Pain Free? Yes Yes Yes WC - Visit Discharge Discharge Condition Stable Stable Stable Ambulatory Status Ambulatory Ambulatory Ambulatory Transportation Private Auto Private Auto Private Auto Wound debrided: left middle lateral back ulcer Laterality: Left Type of Debridement: Excisional debridement Anesthesia Used: 5% Lidocaine Gel Depth: Down to and including healthy tissue, in the subcutaneous layer Percentage of wound debrided: 100 Instrument Used: 3mm curette Tissue Removed: Subcutaneous tissue and slough Severity: Fat Layer Exposed Amount of bleeding with debridement: Mild Bleeding Controlled with: Pressure Patient tolerated procedure well - Additional Wound Wound debrided: flank cluster Laterality: Right Type of Debridement: Excisional debridement Anesthesia Used: 5% Lidocaine Gel Depth: Down to and including healthy tissue, in the subcutaneous layer Percentage of wound debrided: 100 Instrument Used: 3mm curette Tissue Removed: Subcutaneous tissue and slough Severity: Limited To Skin Breakdown Amount of bleeding with debridement: Mild Bleeding Controlled with: Pressure Patient tolerated procedure: Patient tolerated procedure well Assessment/Plan Active Problems (Last Reviewed 03/18/20 @ 16:[address] 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 Diabetic ulcer right lateral middle back, healed. 2. Nonhealing diabetic ulcer left lateral middle back. 3. Nonhealing diabetic ulcer right flank, s/p surgical closure 01/17/2020. 4. Diabetes mellitus. Plan: Continue Aquacel AG dressing covered by adaptic to the left lateral middle back ulcer and the right flank opened areas. Wear compression over right flank with abdominal binder. 10 applications of Epifix to the left middle lateral back ulcer have been completed. Right middle lateral back ulcer remains healed. Right flank incision was healed but now has 2 small openings, most likely from where sutures were placed and are draining serosanguineous fluid. Follow up 2 weeks. He is driving to [place] for the holidays. There is also a small superficial abrasion centrally off the incision probably from the dressing. Continue collagen hydrogel to the area. Encouraged massage of the right flank and right middle back scar tissue to help soften scarring. Use abdominal wall binder with activity. Operative culture (01/17/20) was negative. He was treated perioperatively with Doxycycline. A wound culture was obtained from left lateral middle back ulcer on 02/03/2020, and was negative for aerobic and anaerobic bacteria. Another wound culture from 03/23/20 showed MRSE. He is currently on Clindamycin. Labs from 07/22/19- Prealbumin was 18.7. Encourage nutritional supplementation with protein to help the healing process. HgbA1c was 5.9. He has an appointment with ID at [facility] on 04/03/20. Follow up one week. [id number]: [id number] Pooja subq tissue 20 sq cm/< - 79 modifier - left middle lateral back ulcer
== END 2020-04-16 23:59 ==
LOC: WC 09:15
PROVIDERS: Family Provider Family Medicine; PCP Family Medicine; Referring Provider Nurse Practitioner Family; Visit Provider Nurse Practitioner Family
DX: E11.622 Type 2 diabetes mellitus with other skin ulcer (principal); L98.492 Non-pressure chronic ulcer of skin of other sites with fat layer exposed; T86.829 Unspecified complication of skin graft (allograft) (autograft)
CPT/HCPCS: 11042; 87070; 87075; 87077; 87186; 87205

== ENCOUNTER 2020-05-11 09:15 | Outpatient (RCR) | payer OTHER, SELFPAY ==
[2020-04-17 00:18] VITALS: BP 120/68; PULSE 18; RESP 18; TEMP 36.6; O2SAT 16
[2020-04-20 09:22] VITALS: BP 120/71; PULSE 80; TEMP 36.1; BMI 28.8
--- NOTE | 2020-04-20 11:45 | PCM.WC.PN ---
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 Comment: Nonhealing ulcers right lateral middle back and left lateral middle back (2) Dehiscence of external surgical wound Status: Chronic Qualifiers: Code(s): T81.31XA - Disruption of external operation (surgical) wound, not elsewhere classified, initial encounter (3) Type 2 diabetes mellitus Status: Chronic Qualifiers: Code(s): E11.9 - Type 2 diabetes mellitus without complications Type of Wound Date of Service: 04/20/20 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: Nonhealing diabetic ulcer left lateral middle back and nonhealing diabetic ulcer right flank recently closed 01/17/20. History of Wound: Surgery 01/17/2020?surgical preparation right flank with excisional debridement of nonhealing painful infected diabetic ulcer of the right flank with 7 cm complex secondary wound closure. Operative culture - negative. He was discharged on Doxycycline and has finished them. The surgical incision is well approximated and had healed. He now has two small areas on the incision line that are opened and draining. He is placing silver and compression. Surgery 07/23/19 - 1. Surgical preparation right lateral middle back with incision and drainage and excisional debridement nonhealing infected diabetic ulcer (66 cm2). 2. Surgical preparation left lateral middle back with incision and drainage and excisional debridement nonhealing infected diabetic ulcer (137.75 cm2). Wound care - he has completed 10 applications of Epifix to the left lateral middle back ulcer. He will continue dailyAquacel-Ag with Adaptic to this ulcer. He has persistent pain in the right flank ulcer and a wound culture was obtained on 09/23/19 and it showed Staphylococcus aureus. He was started on Doxycycline and has finished them. Repeat wound culture on 11/04/19 showed Staphylococcus epidermidis and Corynebacterium amycolatum. He was placed on Levaquin and Augmentin and has finished them. Operative cultures from 07/23/19 were positive for resistant Staphylococcus epidermidis (MRSE). He was started on IV Vancomycin since he had been on Doxycyline, Cleocin, and Zyvox in the past for the persistent Staph infections. He developed compromise to the healing skin grafts that necessitated HBO Treatments which he tolerated. Prealbumin from 07/22/19 was 18.7. Encourage nutritonal supplementation with protein to help the healing process. His HgbA1c from 07/22/19 was 5.9. Left lateral middle back ulcer is stable. Right flank ulcer was surgically closed 01/17/20 and remains closed. Wound cultures from the left lateral middle back on 02/03/2020 were negative for aerobic and anaerobic growth. There was a repeat culture on 03/23/20 which showed MRSE. He has completed Clindamycin. He has a consult with ID on Monday for further evaluation of why he is not healing. Today he denies any fever. He states his appetite is good. Progress of Wound: Left middle lateral back has small improvement. Right middle back remains healed. Right flank has two small areas that are draining. - Physical Exam Vital Signs Temp Pulse Resp BP Pulse Ox 97.0 F L 80 18 120/71 16 04/20/20 09:22 04/20/20 09:22 04/17/20 00:18 04/20/20 09:22 04/17/20 00:18 General: Alert, Oriented x3, Cooperative HEENT: Atraumatic Oral: Moist Mucosa Lungs: Normal air movement Cardiovascular: Regular rate Extremities: Capillary Refill Less than 3 Seconds Skin: Ulcer/ Wound - Left middle lateral back ulcer is pink and very tender top palpation. Right flank incision with 2 opening that are small and tender to palpation. Wound Measurements and Assessment WC - Nurse 1 - General Ulcer Measurement Start: 04/20/20 09:22 Freq: Status: Active Protocol: Activity Type Activity Date Activity User E-Sign Co-Sign Detail Recorded Client Recorded Date Recorded By Document 04/20/20 09:22 DURGA [id number] 04/20/20 09:26 KR 04/20/20 09:22 Wound Center Nurse 1 [Ulcer Assessment] #8 Right lower side cluster -Current Size (cm) - Length 7.4 -Current Size (cm) - Width 0.5 -Current Size (cm) - Depth 0.2 -Total Square Cm 3.70 -Exudate Amt None Present -Wound Margin Distinct, Outline Attached -Granulation Amt None Present (0 %) -Necrosis Amt None Present (0 %) -Texture (Mayra-wound Skin Appearance) Assessed, Scarring -Moisture (Mayra-wound Skin Appearance No Abnormality, ) Assessed -Color (Mayra-wound Skin Appearance) No Abnormality, Assessed -Temperature (Mayra-wound Skin No Abnormality Appearance) (Pt Warm) -Tenderness on Palpation (Mayra-wound No Skin Appearance) -Ulcer Cleansing Rinsed/ Irrigated with Saline -Foul Odor after Cleansing No -Anesthetic Used 4% Lidocaine Solution 6. L lumbar back -Current Size (cm) - Length 2.5 -Current Size (cm) - Width 2 -Current Size (cm) - Depth 0.5 -Total Square Cm 5.0 -Exudate Amt Small -Exudate Type Serosanguineous -Wound Margin Distinct, Outline Attached -Granulation Amt Medium (34-66%) -Granulation Quality Red -Necrosis Amt Medium (34-66%) -Necrotic Tissue Type Adherent Slough -Texture (Mayra-wound Skin Appearance) Assessed, Scarring -Moisture (Mayra-wound Skin Appearance No Abnormality, ) Assessed -Color (Mayra-wound Skin Appearance) No Abnormality, Assessed -Temperature (Mayra-wound Skin No Abnormality Appearance) (Pt Warm) -Tenderness on Palpation (Mayra-wound No Skin Appearance) -Ulcer Cleansing Rinsed/ Irrigated with Saline -Foul Odor after Cleansing No -Anesthetic Used 4% Lidocaine Solution - Nurse 3 - General Ulcer D/C NN Start: 04/20/20 09:22 Freq: Status: Active Protocol: Activity Type Activity Date Activity User E-Sign Co-Sign Detail Recorded Client Recorded Date Recorded By Document 04/20/20 10:02 [facility] [id number] 04/20/20 10:03 [facility] 04/20/20 10:02 Wound Care Nurse 3 [Wound Dressing] #8 Right lower side cluster -Ulcer Cleansing Rinsed/ Irrigated with Saline -Foul Odor after Cleansing No -Primary Dressing Applied Aquacel AG 4x4, NonAdherent Contact Layer -Primary Dressing Covered/Secured Secured with with Tape,Other -Other Covering abd -Aquacel AG 4x4 1 6. L lumbar back -Ulcer Cleansing Rinsed/ Irrigated with Saline -Foul Odor after Cleansing No -Primary Dressing Applied Aquacel AG 4x4 -Primary Dressing Covered/Secured Secured with with Tape,Other -Other Covering abd -Aquacel AG 4x4 0 [Post Procedure Tolerated] -Treatment Response Procedure Tolerated Well Pain Scale: 0-10 Numeric [Pain] -Is Patient Pain Free? Yes WC - Visit Discharge [Visit Discharge Information] -Discharge Condition Stable -Ambulatory Status Ambulatory -Transportation Private Auto Musculoskeletal: No Tenderness to Palpation of Joints or Extremities Neurological: Cranial nerves II-XII grossly intact Psych/Mental Status: Normal Affect, Appropriate Debridement Note Post-Debridement Measurements/Treatment WC - Nurse 3 - General Ulcer D/C NN Start: 04/20/20 09:22 Freq: Status: Active Protocol: Activity Type Activity Date Activity User E-Sign Co-Sign Detail Recorded Client Recorded Date Recorded By Document 04/20/20 10:02 [facility] [id number] 04/20/20 10:03 [facility] 04/20/20 10:02 Wound Care Nurse 3 #8 Right lower side cluster -Ulcer Cleansing Rinsed/ Irrigated with Saline -Foul Odor after Cleansing No -Primary Dressing Applied Aquacel AG 4x4, NonAdherent Contact Layer -Primary Dressing Covered/Secured with Secured with Tape,Other -Other Covering abd -Aquacel AG 4x4 1 6. L lumbar back -Ulcer Cleansing Rinsed/ Irrigated with Saline -Foul Odor after Cleansing No -Primary Dressing Applied Aquacel AG 4x4 -Primary Dressing Covered/Secured with Secured with Tape,Other -Other Covering abd -Aquacel AG 4x4 0 Treatment Response Procedure Tolerated Well Pain Scale: 0-10 Numeric Is Patient Pain Free? Yes WC - Visit Discharge Discharge Condition Stable Ambulatory Status Ambulatory Transportation Private Auto Wound debrided: middle lateral back ulcer Laterality: Left Type of Debridement: Excisional debridement Anesthesia Used: 5% Lidocaine Gel Depth: Down to and including healthy tissue, in the subcutaneous layer Percentage of wound debrided: 100 Instrument Used: 5mm curette Tissue Removed: Subcutaneous tissue and slough Severity: Fat Layer Exposed Amount of bleeding with debridement: Mild Bleeding Controlled with: Pressure Patient tolerated procedure well - Additional Wound Wound debrided: Flank anterior and posterior ulcers Laterality: Right Type of Debridement: Excisional debridement Anesthesia Used: 5% Lidocaine Gel Depth: Down to and including healthy tissue, in the subcutaneous layer Percentage of wound debrided: 100 Instrument Used: 3mm curette Tissue Removed: Subcutaneous tissue and slough to both ulcers. Severity: Fat Layer Exposed Amount of bleeding with debridement: Mild Bleeding Controlled with: Pressure Patient tolerated procedure: Patient tolerated procedure well Assessment/Plan Assessment: 1. Diabetic ulcer right lateral middle back, healed. 2. Nonhealing diabetic ulcer left lateral middle back. 3. Nonhealing diabetic ulcer right flank, s/p surgical closure 01/17/2020. 4. Diabetes mellitus. Plan: Continue Aquacel AG dressing covered by adaptic to the left lateral middle back ulcer and the right flank opened areas. Wear compression over right flank with abdominal binder. 10 applications of Epifix to the left middle lateral back ulcer have been completed. Right middle lateral back ulcer remains healed. Right flank incision was healed but now has 2 small openings, most likely from where sutures were placed and are draining. He was supposed to see ID at [facility] but it got cancelled. He has an appointment on Monday with Dr. Seymour, ID, for further evaluation on why his healing has been so delayed. Follow up 2 weeks. [id number]: [id number] Pooja subq tissue 20 sq cm/<
[2020-05-04 09:33] VITALS: BP 123/73; PULSE 75; RESP 18; TEMP 36.2; BMI 28.8
--- NOTE | 2020-05-04 20:18 | PN.PCM_ITS ---
Type of Wound Date of Service: 05/04/20 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: Nonhealing diabetic ulcer left lateral middle back and right flank. History of Wound: Surgery 01/17/2020?surgical preparation right flank with excisional debridement of nonhealing painful infected diabetic ulcer of the right flank with 7 cm complex secondary wound closure. Operative culture - negative. He was discharged on Doxycycline and has finished them. Wound care - he has completed 10 applications of Epifix to the left lateral middle back ulcer. He will continue dailyAquacel-Ag with Adaptic to this ulcer. Prealbumin from 07/22/19 was 18.7. Encourage nutritonal supplementation with protein to help the healing process. His HgbA1c from 07/22/19 was 5.9. Right flank ulcer was surgically closed 01/17/20 and has developed some painful ulcerations. Wound culture from the left lateral middle back on 02/03/2020 was negative for aerobic and anaerobic growth. There was a repeat culture on 03/23/20 which showed MRSE. He was placed on Clindamycin and is finishing them. The patient denies any fever. His appetite is ok. He has an appointment to see an Demurrage Clerk tomorrow. Progress of Wound: Left middle lateral back ulcer has small improvement. Right middle lateral back ulcer remains healed. Right flank ulcer has two areas that are draining. - Physical Exam Vital Signs Temp Pulse Resp BP Pulse Ox 97.2 F L 75 18 123/73 H 16 05/04/20 09:33 05/04/20 09:33 05/04/20 09:33 05/04/20 09:33 04/17/20 00:18 Wound Measurements and Assessment WC - Nurse 1 - General Ulcer Measurement Start: 04/20/20 09:22 Freq: Status: Active Protocol: Activity Type Activity Date Activity User E-Sign Co-Sign Detail Recorded Client Recorded Date Recorded By Document 05/04/20 09:33 DL [id number] 05/04/20 09:41 DL 05/04/20 09:33 Wound Center Nurse 1 [Ulcer Assessment] #9 R Lower Side Posterior -Current Size (cm) - Length 0.9 -Current Size (cm) - Width 1.6 -Current Size (cm) - Depth 0.3 -Total Square Cm 1.44 -Photo Taken No -Exudate Amt Small -Exudate Type Serosanguineous -Wound Margin Distinct, Outline Attached -Granulation Amt Medium (34-66%) -Granulation Quality Red -Necrosis Amt Medium (34-66%) -Necrotic Tissue Type Adherent Slough -Structure Exposed N/A -Texture (Mayra-wound Skin Appearance) Scarring -Moisture (Mayra-wound Skin Appearance No Abnormality ) -Color (Mayra-wound Skin Appearance) Erythema,Rubor -Temperature (Mayra-wound Skin No Abnormality Appearance) (Pt Warm) -Tenderness on Palpation (Mayra-wound No Skin Appearance) -Ulcer Cleansing Wound Cleanser -Foul Odor after Cleansing No -Anesthetic Used 5% Lidocaine Gel #8 Right lower side Anterior -Current Size (cm) - Length 0.6 -Current Size (cm) - Width 1 -Current Size (cm) - Depth 0.2 -Total Square Cm 0.6 -Photo Taken No -Exudate Amt Small -Exudate Type Serosanguineous -Wound Margin Distinct, Outline Attached -Granulation Amt Medium (34-66%) -Granulation Quality Red -Necrosis Amt Medium (34-66%) -Necrotic Tissue Type Adherent Slough -Structure Exposed N/A -Texture (Mayra-wound Skin Appearance) Scarring -Moisture (Mayra-wound Skin Appearance Dry/Scaly ) -Color (Mayra-wound Skin Appearance) No Abnormality, Rubor -Temperature (Mayra-wound Skin No Abnormality Appearance) (Pt Warm) -Tenderness on Palpation (Mayra-wound No Skin Appearance) -Ulcer Cleansing Wound Cleanser -Foul Odor after Cleansing No -Anesthetic Used 4% Lidocaine Solution 6. L lumbar back -Current Size (cm) - Length 2.7 -Current Size (cm) - Width 2 -Current Size (cm) - Depth 0.5 -Total Square Cm 5.4 -Photo Taken No -Exudate Amt Small -Exudate Type Serosanguineous -Wound Margin Distinct, Outline Attached -Granulation Amt Medium (34-66%) -Granulation Quality Red -Necrosis Amt Medium (34-66%) -Necrotic Tissue Type Adherent Slough -Structure Exposed N/A -Texture (Mayra-wound Skin Appearance) Scarring -Moisture (Mayra-wound Skin Appearance No Abnormality ) -Color (Mayra-wound Skin Appearance) Rubor -Temperature (Mayra-wound Skin No Abnormality Appearance) (Pt Warm) -Tenderness on Palpation (Mayra-wound No Skin Appearance) -Ulcer Cleansing Wound Cleanser -Foul Odor after Cleansing No -Anesthetic Used 4% Lidocaine Solution WC - Nurse 3 - General Ulcer D/C NN Start: 04/20/20 09:22 Freq: Status: Active Protocol: Activity Type Activity Date Activity User E-Sign Co-Sign Detail Recorded Client Recorded Date Recorded By Document 05/04/20 10:34 DURGA [id number] 05/04/20 10:35 DURGA 05/04/20 10:34 Wound Care Nurse 3 [Wound Dressing] #9 R Lower Side Posterior -Ulcer Cleansing Rinsed/ Irrigated with Saline -Primary Dressing Applied Promogran Christie Matter -Primary Dressing Covered/Secured Dry Gauze, with Secured with Tape -Promogran Christie Matter 1 #8 Right lower side Anterior -Ulcer Cleansing Rinsed/ Irrigated with Saline -Primary Dressing Covered/Secured Dry Gauze, with Secured with Tape 6. L lumbar back -Ulcer Cleansing Rinsed/ Irrigated with Saline -Primary Dressing Covered/Secured Dry Gauze, with Secured with Tape Pain Scale: 0-10 Numeric [Pain] -Is Patient Pain Free? Yes WC - Visit Discharge [Visit Discharge Information] -Discharge Condition Stable -Ambulatory Status Ambulatory -Transportation Private Auto Debridement Note Post-Debridement Measurements/Treatment SANDEEP - Nurse 2 - General Ulcer CM Notes Start: 04/20/20 09:22 Freq: Status: Active Protocol: Activity Type Activity Date Activity User E-Sign Co-Sign Detail Recorded Client Recorded Date Recorded By Document 04/20/20 12:14 SHEFALI [id number] 04/20/20 12:17 PL 04/20/20 12:14 Wound Center Nurse 2 #9 R Lower Side Posterior -Time 09:40 -Correct Patient Yes -Correct Side, Site, Position Yes -Correct Procedure Yes -Procedure Performed Yes -Type of Procedure Debridement -Clinical Debridement Subcutaneous -Tissue Removed Subcutaneous -Post Debridement (cm) - Length 0.7 -Post Debridement (cm) - Width 1.1 -Post Debridement (cm) - Depth 0.2 -Total Square (Post) (cm) 0.77 -Area of Debridement (cm) - Length 0.7 -Area of Debridement (cm) - Width 1.1 -Total Square (Area) (cm) 0.77 -Tunneling No -Undermining/Tunneling No -Circular Undermining No -Wound/Ulcer Outcome Not Healed -Ulcer Cleansing Rinsed/ Irrigated with Saline -Foul Odor after Cleansing No -Bioengineered Tissue No -Debridement - Subq, 1st 20sq cm No #8 Right lower side Anterior -Time 09:40 -Correct Patient Yes -Correct Side, Site, Position Yes -Correct Procedure Yes -Procedure Performed Yes -Type of Procedure Debridement -Clinical Debridement Subcutaneous -Tissue Removed Subcutaneous -Post Debridement (cm) - Length 0.3 -Post Debridement (cm) - Width 0.7 -Post Debridement (cm) - Depth 0.3 -Total Square (Post) (cm) 0.21 -Area of Debridement (cm) - Length 0.3 -Area of Debridement (cm) - Width 0.7 -Total Square (Area) (cm) 0.21 -Tunneling No -Undermining/Tunneling No -Circular Undermining No -Wound/Ulcer Outcome Not Healed -Ulcer Cleansing Rinsed/ Irrigated with Saline -Foul Odor after Cleansing No -Bioengineered Tissue No -Debridement - Subq, 1st 20sq cm No 6. L lumbar back -Time 09:40 -Correct Patient Yes -Correct Side, Site, Position Yes -Correct Procedure Yes -Procedure Performed Yes -Type of Procedure Debridement -Clinical Debridement Subcutaneous -Tissue Removed Subcutaneous -Post Debridement (cm) - Length 2.5 -Post Debridement (cm) - Width 2.0 -Post Debridement (cm) - Depth 0.5 -Total Square (Post) (cm) 5.00 -Area of Debridement (cm) - Length 2.5 -Area of Debridement (cm) - Width 2.0 -Total Square (Area) (cm) 5.00 -Tunneling No -Undermining/Tunneling No -Circular Undermining No -Wound/Ulcer Outcome Not Healed -Ulcer Cleansing Rinsed/ Irrigated with Saline -Foul Odor after Cleansing No -Bioengineered Tissue No -Debridement - Subq, 1st 20sq cm Yes Pain Scale: 0-10 Numeric Is Patient Pain Free? Yes WC - Nurse 3 - General Ulcer D/C NN Start: 04/20/20 09:22 Freq: Status: Active Protocol: Activity Type Activity Date Activity User E-Sign Co-Sign Detail Recorded Client Recorded Date Recorded By Document 04/20/20 10:02 [facility] [id number] 04/20/20 10:03 [facility] Document 05/04/20 10:34 KR [id number] 01/18/21 10:35 KR 04/20/20 05/04/20 10:02 10:34 Wound Care Nurse 3 #9 R Lower Side Posterior -Ulcer Cleansing Rinsed/ Irrigated with Saline -Primary Dressing Applied Promogran Christie Matter -Primary Dressing Covered/Secured with Dry Gauze, Secured with Tape -Promogran Christie Matter 1 #8 Right lower side Anterior -Ulcer Cleansing Rinsed/ Rinsed/ Irrigated with Irrigated with Saline Saline -Foul Odor after Cleansing No -Primary Dressing Applied Aquacel AG 4x4, NonAdherent Contact Layer -Primary Dressing Covered/Secured with Secured with Dry Gauze, Tape,Other Secured with Tape -Other Covering abd -Aquacel AG 4x4 1 6. L lumbar back -Ulcer Cleansing Rinsed/ Rinsed/ Irrigated with Irrigated with Saline Saline -Foul Odor after Cleansing No -Primary Dressing Applied Aquacel AG 4x4 -Primary Dressing Covered/Secured with Secured with Dry Gauze, Tape,Other Secured with Tape -Other Covering abd -Aquacel AG 4x4 0 Treatment Response Procedure Tolerated Well Pain Scale: 0-10 Numeric Is Patient Pain Free? Yes Yes WC - Visit Discharge Discharge Condition Stable Stable Ambulatory Status Ambulatory Ambulatory Transportation Private Auto Private Auto Wound debrided: #6 Left lateral middle back. Laterality: Left Wound Grade/Stage: 2. Type of Debridement: Excisional debridement Anesthesia Used: 4% Lidocaine Solution Depth: Down to and including healthy tissue, in the subcutaneous layer Percentage of wound debrided: 100 Instrument Used: 3mm curette Tissue Removed: subcutaneous tissue. Severity: Fat Layer Exposed Amount of bleeding with debridement: Mild Bleeding Controlled with: Pressure Patient tolerated procedure well - Additional Wound Wound debrided: #8 Right flank, anterior. Laterality: Right Wound Grade/Stage: 2. Type of Debridement: Excisional debridement Anesthesia Used: 4% Lidocaine Solution Depth: Down to and including healthy tissue, in the subcutaneous layer Percentage of wound debrided: 100 Instrument Used: 3mm curette Tissue Removed: subcutaneous tissue. Severity: Fat Layer Exposed Amount of bleeding with debridement: Mild Bleeding Controlled with: Pressure Patient tolerated procedure: Patient tolerated procedure well, - - A wound culture was obtained today. - Additional Wound Wound debrided: #9 Right flank, posterior. Laterality: Right Wound Grade/Stage: 2. Type of Debridement: Excisional debridement Anesthesia Used: 4% Lidocaine Solution Depth: Down to and including healthy tissue, in the subcutaneous layer Percentage of wound debrided: 100 Instrument Used: 3mm curette Tissue Removed: subcutaneous tissue. Severity: Fat Layer Exposed Amount of bleeding with debridement: Mild Bleeding Controlled with: Pressure Patient tolerated procedure: Patient tolerated procedure well Assessment/Plan Active Problems (Last Reviewed 03/18/20 @ 16:[address] 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 Nonhealing diabetic ulcer left lateral middle back. 2. Nonhealing diabetic ulcer right flank, s/p surgical closure 01/17/2020. 3. Diabetes mellitus. Plan: Change wound care to Promogran dressing changes daily. Wear compression over right flank with abdominal binder. 10 applications of Epifix to the left middle lateral back ulcer have been completed. Right middle lateral back ulcer remains healed. He is scheduled to see the Demurrage Clerk tomorrow. He saw ID last week. He is finishing Clindamycin for a culture done on 03/23/20 that showed MRSE. Another wound culture was obtained today. A positive culture will necessitate antibiotic therapy. Follow up one week. [id number]: [id number] Pooja subq tissue 20 sq cm/< - ICD-10 - L98.492, A49.8, E11.9, T86.829
[2020-05-11 09:22] VITALS: BP 128/75; PULSE 74; TEMP 35.6; BMI 28.8
--- NOTE | 2020-05-11 10:45 | PCM.WC.PN ---
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 Comment: Nonhealing ulcers right lateral middle back and left lateral middle back (2) Dehiscence of external surgical wound Status: Chronic Qualifiers: Code(s): T81.31XA - Disruption of external operation (surgical) wound, not elsewhere classified, initial encounter (3) Type 2 diabetes mellitus Status: Chronic Qualifiers: Code(s): E11.9 - Type 2 diabetes mellitus without complications Type of Wound Date of Service: 05/11/20 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: Nonhealing diabetic ulcer left lateral middle back and right flank. History of Wound: Surgery 01/17/2020?surgical preparation right flank with excisional debridement of nonhealing painful infected diabetic ulcer of the right flank with 7 cm complex secondary wound closure. Operative culture - negative. He was discharged on Doxycycline and has finished them. Wound care - he has completed 10 applications of Epifix to the left lateral middle back ulcer. He will continue dailyAquacel-Ag with Adaptic to this ulcer. Prealbumin from 07/22/19 was 18.7. Encourage nutritonal supplementation with protein to help the healing process. His HgbA1c from 07/22/19 was 5.9. Right flank ulcer was surgically closed 01/17/20 and has developed some painful ulcerations. Wound culture from the left lateral middle back on 02/03/2020 was negative for aerobic and anaerobic growth. There was a repeat culture on 03/23/20 which showed MRSE. He was placed on Clindamycin and has completed them. Wound cultures from 05/04/20 the right flank was negative for bacterial growth. The left back was positive for resistant Staphylococcus epidermidis and Corynebacterium amycolatum. Cultures were discussed with Dr. Lemus before speaking with patient, and a plan of care was developed. Dr. Lemus would like the patient to consider doing IV antibiotics for the resistant bacteria, since this has been recurrent multiple times. Will start on Linzolid for the time being and the patient will think about his options and discuss them with his . Today he denies any fevers and states his appetite is good. Progress of Wound: Left middle lateral back ulcer stable. Right middle lateral back ulcer remains healed. Right flank ulcer has two areas that are stable. - Physical Exam Vital Signs Temp Pulse Resp BP Pulse Ox 96.0 F L 74 18 128/75 H 16 05/11/20 09:22 05/11/20 09:22 05/04/20 09:33 05/11/20 09:22 04/17/20 00:18 General: Alert, Oriented x3, Cooperative HEENT: Atraumatic Oral: Moist Mucosa Lungs: Normal air movement Cardiovascular: Regular rate Abdomen: Soft Extremities: Capillary Refill Less than 3 Seconds Skin: Ulcer/ Wound - Left lateral middle back ulcer with increased biofilm today. Very sensitive, especially when debridment is performed. Right flank ulcers are stable but continue to be open and draining. Wound Measurements and Assessment WC - Nurse 1 - General Ulcer Measurement Start: 04/20/20 09:22 Freq: Status: Active Protocol: Activity Type Activity Date Activity User E-Sign Co-Sign Detail Recorded Client Recorded Date Recorded By Document 05/11/20 09:22 [facility] [id number] 05/11/20 09:28 DURGA 05/11/20 09:22 Wound Center Nurse 1 [Ulcer Assessment] #9 R Lower Side Posterior -Current Size (cm) - Length 1 -Current Size (cm) - Width 2 -Current Size (cm) - Depth 0.3 -Total Square Cm 2 -Exudate Amt Medium -Exudate Type Serosanguineous -Wound Margin Distinct, Outline Attached -Granulation Amt Medium (34-66%) -Granulation Quality Red -Necrosis Amt Medium (34-66%) -Necrotic Tissue Type Adherent Slough -Texture (Mayra-wound Skin Appearance) Assessed, Scarring -Moisture (Mayra-wound Skin Appearance No Abnormality, ) Assessed -Color (Mayra-wound Skin Appearance) No Abnormality, Assessed -Temperature (Mayra-wound Skin No Abnormality Appearance) (Pt Warm) -Tenderness on Palpation (Mayra-wound No Skin Appearance) -Ulcer Cleansing Rinsed/ Irrigated with Saline -Foul Odor after Cleansing No -Anesthetic Used 4% Lidocaine Solution #8 Right lower side Anterior -Current Size (cm) - Length 0.7 -Current Size (cm) - Width 1 -Current Size (cm) - Depth 0.3 -Total Square Cm 0.7 -Exudate Amt Medium -Exudate Type Serosanguineous -Wound Margin Distinct, Outline Attached -Granulation Amt Medium (34-66%) -Granulation Quality Red -Necrosis Amt Medium (34-66%) -Necrotic Tissue Type Adherent Slough -Texture (Mayra-wound Skin Appearance) Assessed, Scarring -Moisture (Mayra-wound Skin Appearance No Abnormality, ) Assessed -Color (Mayra-wound Skin Appearance) No Abnormality, Assessed -Temperature (Mayra-wound Skin No Abnormality Appearance) (Pt Warm) -Tenderness on Palpation (Mayra-wound No Skin Appearance) -Ulcer Cleansing Rinsed/ Irrigated with Saline -Foul Odor after Cleansing No -Anesthetic Used 4% Lidocaine Solution 6. L lumbar back -Current Size (cm) - Length 2.8 -Current Size (cm) - Width 1.8 -Current Size (cm) - Depth 0.4 -Total Square Cm 5.04 -Undermining/Tunneling Starts (O' 5 clock) -Undermining/Tunneling Ends (O'clock) 6 -Maximum Distance (cm) 0.2 -Exudate Amt Medium -Exudate Type Serosanguineous -Wound Margin Distinct, Outline Attached -Texture (Mayra-wound Skin Appearance) Assessed, Scarring -Moisture (Mayra-wound Skin Appearance No Abnormality, ) Assessed -Color (Mayra-wound Skin Appearance) No Abnormality, Assessed -Temperature (Mayra-wound Skin No Abnormality Appearance) (Pt Warm) -Tenderness on Palpation (Mayra-wound Yes Skin Appearance) -Ulcer Cleansing Rinsed/ Irrigated with Saline -Foul Odor after Cleansing No -Anesthetic Used 4% Lidocaine Solution WC - Nurse 2 - General Ulcer CM Notes Start: 04/20/20 09:22 Freq: Status: Active Protocol: Activity Type Activity Date Activity User E-Sign Co-Sign Detail Recorded Client Recorded Date Recorded By Document 05/11/20 09:48 [facility] [id number] 05/11/20 09:57 [facility] 05/11/20 09:48 Wound Center Nurse 2 [Procedure/Treatment] #9 R Lower Side Posterior -Time 09:49 -Correct Patient Yes -Correct Side, Site, Position Yes -Correct Procedure Yes -Procedure Performed Yes -Type of Procedure Debridement -Clinical Debridement Subcutaneous -Tissue Removed Subcutaneous -Post Debridement (cm) - Length 0.7 -Post Debridement (cm) - Width 3.3 -Post Debridement (cm) - Depth 0.4 -Total Square (Post) (cm) 2.31 -Area of Debridement (cm) - Length 0.7 -Area of Debridement (cm) - Width 3.3 -Total Square (Area) (cm) 2.31 -Tunneling No -Undermining/Tunneling No -Circular Undermining No -Wound/Ulcer Outcome Not Healed -Ulcer Cleansing Rinsed/ Irrigated with Saline -Foul Odor after Cleansing No -Bioengineered Tissue No -Bleeding Controlled with Pressure -Offloading No -Treatment Response Procedure Tolerated Well -Debridement - Subq, 1st 20sq cm No #8 Right lower side Anterior -Time 09:51 -Correct Patient Yes -Correct Side, Site, Position Yes -Correct Procedure Yes -Procedure Performed Yes -Type of Procedure Debridement -Clinical Debridement Subcutaneous -Tissue Removed Subcutaneous -Post Debridement (cm) - Length 0.7 -Post Debridement (cm) - Width 1.8 -Post Debridement (cm) - Depth 0.4 -Total Square (Post) (cm) 1.26 -Area of Debridement (cm) - Length 0.7 -Area of Debridement (cm) - Width 1.8 -Total Square (Area) (cm) 1.26 -Tunneling No -Undermining/Tunneling No -Circular Undermining No -Wound/Ulcer Outcome Not Healed -Ulcer Cleansing Rinsed/ Irrigated with Saline -Foul Odor after Cleansing No -Bioengineered Tissue No -Bleeding Controlled with Pressure -Offloading No -Treatment Response Procedure Tolerated Well -Debridement - Subq, 20sq cm No 6. L lumbar back -Time 09:52 -Correct Patient Yes -Correct Side, Site, Position Yes -Correct Procedure Yes -Procedure Performed Yes -Type of Procedure Debridement -Clinical Debridement Subcutaneous -Tissue Removed Subcutaneous -Post Debridement (cm) - Length 2.7 -Post Debridement (cm) - Width 2.5 -Post Debridement (cm) - Depth 0.4 -Total Square (Post) (cm) 6.75 -Area of Debridement (cm) - Length 2.7 -Area of Debridement (cm) - Width 2.5 -Total Square (Area) (cm) 6.75 -Tunneling No -Undermining/Tunneling No -Circular Undermining No -Wound/Ulcer Outcome Not Healed -Ulcer Cleansing Rinsed/ Irrigated with Saline -Foul Odor after Cleansing No -Bioengineered Tissue No -Bleeding Controlled with Pressure -Offloading No -Treatment Response Procedure Tolerated Well -Debridement - Subq, 1st 20sq cm Yes [See Physician Procedure note for Specifics] Pain Scale: 0-10 Numeric [Pain] -Is Patient Pain Free? Yes - Nurse 3 - General Ulcer D/C NN Start: 04/20/20 09:22 Freq: Status: Active Protocol: Activity Type Activity Date Activity User E-Sign Co-Sign Detail Recorded Client Recorded Date Recorded By Document 05/11/20 10:14 DL [id number] 05/11/20 10:15 DL 05/11/20 10:14 Wound Care Nurse 3 [Wound Dressing] #9 R Lower Side Posterior -Ulcer Cleansing Rinsed/ Irrigated with Saline -Foul Odor after Cleansing No -Primary Dressing Covered/Secured Dry Gauze, with Secured with Tape #8 Right lower side Anterior -Ulcer Cleansing Rinsed/ Irrigated with Saline -Foul Odor after Cleansing No -Primary Dressing Covered/Secured Dry Gauze, with Secured with Tape 6. L lumbar back -Ulcer Cleansing Rinsed/ Irrigated with Saline -Foul Odor after Cleansing No -Primary Dressing Covered/Secured Dry Gauze, with Secured with Tape [Post Procedure Tolerated] -Treatment Response Procedure Tolerated Well Pain Scale: 0-10 Numeric [Pain] -Is Patient Pain Free? Yes - Visit Discharge [Visit Discharge Information] -Discharge Condition Stable -Ambulatory Status Ambulatory -Transportation Private Auto Musculoskeletal: No Tenderness to Palpation of Joints or Extremities Neurological: Cranial nerves II-XII grossly intact Psych/Mental Status: Normal Affect, Appropriate Debridement Note Post-Debridement Measurements/Treatment - Nurse 2 - General Ulcer CM Notes Start: 04/20/20 09:22 Freq: Status: Active Protocol: Activity Type Activity Date Activity User E-Sign Co-Sign Detail Recorded Client Recorded Date Recorded By Document 04/20/20 12:14 PL [id number] 04/20/20 12:17 PL Document 05/04/20 09:30 JF [id number] 05/06/20 16:37 JF Document 05/11/20 09:48 JF [id number] 05/11/20 09:57 JF 04/20/20 05/04/20 05/11/20 12:14 09:30 09:48 Wound Center Nurse 2 #9 R Lower Side Posterior -Time 09:40 16:31 09:49 -Correct Patient Yes Yes Yes -Correct Side, Site, Position Yes Yes Yes -Correct Procedure Yes Yes Yes -Procedure Performed Yes Yes Yes -Type of Procedure Debridement Debridement Debridement -Clinical Debridement Subcutaneous Subcutaneous Subcutaneous -Tissue Removed Subcutaneous Subcutaneous Subcutaneous -Post Debridement (cm) - Length 0.7 0.8 0.7 -Post Debridement (cm) - Width 1.1 1.8 3.3 -Post Debridement (cm) - Depth 0.2 0.3 0.4 -Total Square (Post) (cm) 0.77 1.44 2.31 -Area of Debridement (cm) - Length 0.7 0.8 0.7 -Area of Debridement (cm) - Width 1.1 1.8 3.3 -Total Square (Area) (cm) 0.77 1.44 2.31 -Tunneling No No No -Undermining/Tunneling No No No -Circular Undermining No No No -Wound/Ulcer Outcome Not Healed Not Healed Not Healed -Ulcer Cleansing Rinsed/ Rinsed/ Rinsed/ Irrigated with Irrigated with Irrigated with Saline Saline Saline -Foul Odor after Cleansing No No No -Bioengineered Tissue No No No -Bleeding Controlled with Pressure Pressure -Offloading No No -Treatment Response Procedure Procedure Tolerated Well Tolerated Well -Debridement - Subq, 1st 20sq cm No Yes No #8 Right lower side Anterior -Time 09:40 16:32 09:51 -Correct Patient Yes Yes Yes -Correct Side, Site, Position Yes Yes Yes -Correct Procedure Yes Yes Yes -Procedure Performed Yes Yes Yes -Type of Procedure Debridement Debridement Debridement -Clinical Debridement Subcutaneous Subcutaneous Subcutaneous -Tissue Removed Subcutaneous Subcutaneous Subcutaneous -Post Debridement (cm) - Length 0.3 0.8 0.7 -Post Debridement (cm) - Width 0.7 1 1.8 -Post Debridement (cm) - Depth 0.3 0.3 0.4 -Total Square (Post) (cm) 0.21 0.8 1.26 -Area of Debridement (cm) - Length 0.3 0.8 0.7 -Area of Debridement (cm) - Width 0.7 1 1.8 -Total Square (Area) (cm) 0.21 0.8 1.26 -Tunneling No No No -Undermining/Tunneling No No No -Circular Undermining No No No -Wound/Ulcer Outcome Not Healed Not Healed Not Healed -Ulcer Cleansing Rinsed/ Rinsed/ Rinsed/ Irrigated with Irrigated with Irrigated with Saline Saline Saline -Foul Odor after Cleansing No No No -Bioengineered Tissue No No No -Bleeding Controlled with Pressure Pressure -Offloading No No -Treatment Response Procedure Procedure Tolerated Well Tolerated Well -Debridement - Subq, 1st 20sq cm No No No 6. L lumbar back -Time 09:40 16:32 09:52 -Correct Patient Yes Yes Yes -Correct Side, Site, Position Yes Yes Yes -Correct Procedure Yes Yes Yes -Procedure Performed Yes Yes Yes -Type of Procedure Debridement Debridement Debridement -Clinical Debridement Subcutaneous Subcutaneous Subcutaneous -Tissue Removed Subcutaneous Subcutaneous Subcutaneous -Post Debridement (cm) - Length 2.5 2.5 2.7 -Post Debridement (cm) - Width 2.0 1.7 2.5 -Post Debridement (cm) - Depth 0.5 0.5 0.4 -Total Square (Post) (cm) 5.00 4.25 6.75 -Area of Debridement (cm) - Length 2.5 2.5 2.7 -Area of Debridement (cm) - Width 2.0 1.7 2.5 -Total Square (Area) (cm) 5.00 4.25 6.75 -Tunneling No No No -Undermining/Tunneling No No No -Circular Undermining No No No -Wound/Ulcer Outcome Not Healed Not Healed Not Healed -Ulcer Cleansing Rinsed/ Rinsed/ Rinsed/ Irrigated with Irrigated with Irrigated with Saline Saline Saline -Foul Odor after Cleansing No No No -Bioengineered Tissue No No No -Bleeding Controlled with Pressure Pressure -Offloading No No -Treatment Response Procedure Procedure Tolerated Well Tolerated Well -Debridement - Subq, 1st 20sq cm Yes No Yes Pain Scale: 0-10 Numeric Is Patient Pain Free? Yes Yes Yes WC - Nurse 3 - General Ulcer D/C NN Start: 04/20/20 09:22 Freq: Status: Active Protocol: Activity Type Activity Date Activity User E-Sign Co-Sign Detail Recorded Client Recorded Date Recorded By Document 04/20/20 10:02 [facility] [id number] 04/20/20 10:03 BMF Document 05/04/20 10:34 KR [id number] 05/04/20 10:35 KR Document 05/11/20 10:14 DL [id number] 05/11/20 10:15 DL 04/20/20 05/04/20 05/11/20 10:02 10:34 10:14 Wound Care Nurse 3 #9 R Lower Side Posterior -Ulcer Cleansing Rinsed/ Rinsed/ Irrigated with Irrigated with Saline Saline -Foul Odor after Cleansing No -Primary Dressing Applied Promogran Christie Matter -Primary Dressing Covered/Secured with Dry Gauze, Dry Gauze, Secured with Secured with Tape Tape -Promogran Christie Matter 1 #8 Right lower side Anterior -Ulcer Cleansing Rinsed/ Rinsed/ Rinsed/ Irrigated with Irrigated with Irrigated with Saline Saline Saline -Foul Odor after Cleansing No No -Primary Dressing Applied Aquacel AG 4x4, NonAdherent Contact Layer -Primary Dressing Covered/Secured with Secured with Dry Gauze, Dry Gauze, Tape,Other Secured with Secured with Tape Tape -Other Covering abd -Aquacel AG 4x4 1 6. L lumbar back -Ulcer Cleansing Rinsed/ Rinsed/ Rinsed/ Irrigated with Irrigated with Irrigated with Saline Saline Saline -Foul Odor after Cleansing No No -Primary Dressing Applied Aquacel AG 4x4 -Primary Dressing Covered/Secured with Secured with Dry Gauze, Dry Gauze, Tape,Other Secured with Secured with Tape Tape -Other Covering abd -Aquacel AG 4x4 0 Treatment Response Procedure Procedure Tolerated Well Tolerated Well Pain Scale: 0-10 Numeric Is Patient Pain Free? Yes Yes Yes WC - Visit Discharge Discharge Condition Stable Stable Stable Ambulatory Status Ambulatory Ambulatory Ambulatory Transportation Private Auto Private Auto Private Auto Wound debrided: lateral middle back ulcer Laterality: Left Type of Debridement: Excisional debridement Anesthesia Used: 5% Lidocaine Gel Depth: Down to and including healthy tissue, in the subcutaneous layer Percentage of wound debrided: 100 Instrument Used: 5mm curette Tissue Removed: Subcutaneous tissue and slough (increased slough this week) Severity: Fat Layer Exposed Amount of bleeding with debridement: Mild Bleeding Controlled with: Pressure, Compression and gauze Patient tolerated procedure well - Additional Wound Wound debrided: Flank ulcers Laterality: Right Type of Debridement: Excisional debridement Anesthesia Used: 5% Lidocaine Gel Depth: Down to and including healthy tissue, in the subcutaneous layer Percentage of wound debrided: 100 Instrument Used: 3mm curette Tissue Removed: Subcutaneous tissue and slough Severity: Fat Layer Exposed Amount of bleeding with debridement: Mild Bleeding Controlled with: Pressure Patient tolerated procedure: Patient tolerated procedure well Assessment/Plan Active Problems (Last Reviewed 03/18/20 @ 16:[address] 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 Nonhealing diabetic ulcer left lateral middle back. 2. Nonhealing diabetic ulcer right flank, s/p surgical closure 01/17/2020. 3. Diabetes mellitus. Plan: Change wound care to Promogran dressing changes daily. Wear compression over right flank with abdominal binder. 10 applications of Epifix to the left middle lateral back ulcer have been completed. Right middle lateral back ulcer remains healed. He is scheduled to see the Health Social Work Professor tomorrow. He saw ID last week. He finished Clindamycin for a culture done on 03/23/20 that showed MRSE. Wound cultures from 05/04/20 the right flank was negative for bacterial growth. The left back was positive for resistant Staphylococcus epidermidis and Corynebacterium amycolatum. Will start on Linezolid because of the resistant Staph. Discussed plan of care with patient and would like him to consider having a PICC line for better coverage. Patient will let me know at his next visit what he and his decide. Follow up one week. [id number]: [id number] Pooja subq tissue 20 sq cm/<
== END 2020-05-17 23:59 ==
LOC: WC 09:15
PROVIDERS: Family Provider Family Medicine; PCP Family Medicine; Referring Provider Nurse Practitioner Family; Visit Provider Nurse Practitioner Family
DX: E11.622 Type 2 diabetes mellitus with other skin ulcer (principal); L98.492 Non-pressure chronic ulcer of skin of other sites with fat layer exposed; T81.31XA Disruption of external operation (surgical) wound, not elsewhere classified, initial encounter
CPT/HCPCS: 11042; 87070; 87075; 87077; 87186; 87205

== ENCOUNTER 2020-06-08 09:30 | Outpatient (RCR) | payer OTHER, SELFPAY ==
[2020-05-13 21:56] VITALS: BMI 27.8
[2020-05-18 00:18] VITALS: BP 128/75; PULSE 74; RESP 18; TEMP 35.6; O2SAT 16
[2020-05-18 09:35] VITALS: BP 130/78; PULSE 84; RESP 20; TEMP 36.8; BMI 27.8
--- NOTE | 2020-05-18 14:33 | PN.PCM_ITS ---
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 Comment: Nonhealing ulcers right lateral middle back and left lateral middle back (2) Type 2 diabetes mellitus Status: Chronic Qualifiers: Code(s): E11.9 - Type 2 diabetes mellitus without complications Type of Wound Date of Service: 05/18/20 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: Nonhealing diabetic ulcer left lateral middle back and right flank. History of Wound: Surgery 01/17/2020?surgical preparation right flank with excisional debridement of nonhealing painful infected diabetic ulcer of the right flank with 7 cm complex secondary wound closure. Operative culture - negative. He was discharged on Doxycycline and has finished them. Wound care - he has completed 10 applications of Epifix to the left lateral middle back ulcer. He will continue daily Promogran covered by gauze. Taking a break from products with silver to see if he is being sensitive to silver. Prealbumin from 07/22/19 was 18.7. Encourage nutritonal supplementation with protein to help the healing process. His HgbA1c from 07/22/19 was 5.9. Right flank ulcer was surgically closed 01/17/20 and has developed some painful ulcerations. Wound culture from the left lateral middle back on 02/03/2020 was negative for aerobic and anaerobic growth. There was a repeat culture on 03/23/20 which showed MRSE. He was placed on Clindamycin and has completed them. Wound cultures from the right flank was negative for bacterial growth. The left back was positive for resistant Staphylococcus epidermidis and Corynebacterium amycolatum. Cultures were discussed with Dr. Lemus before speaking with patient, and a plan of care was developed. Dr. Lemus would like the patient to consider doing IV antibiotics for the resistant bacteria, since this has been recurrent multiple times. Will start on Linzolid for the time being and the patient will think about his options and discuss them with his . Today he denies any fevers and states his appetite is good. Progress of Wound: Left middle lateral back ulcer stable. Right middle lateral back ulcer remains healed. Right flank ulcer has two areas that are stable. - Physical Exam Vital Signs Temp Pulse Resp BP Pulse Ox 98.2 F 84 20 H 130/78 H 16 05/18/20 09:35 05/18/20 09:35 05/18/20 09:35 05/18/20 09:35 05/18/20 00:18 General: Alert, Oriented x3, Cooperative HEENT: Atraumatic Oral: Moist Mucosa Lungs: Normal air movement Cardiovascular: Regular rate Extremities: Capillary Refill Less than 3 Seconds Skin: Ulcer/ Wound - Left lateral middle back ulcer is pink and very painful to palpation. Right flank ulcers are stable but also painful to palpation. Wound Measurements and Assessment WC - Nurse 1 - General Ulcer Measurement Start: 05/18/20 09:31 Freq: Status: Active Protocol: Activity Type Activity Date Activity User E-Sign Co-Sign Detail Recorded Client Recorded Date Recorded By Document 05/18/20 09:35 DL [id number] 05/18/20 09:42 DL 05/18/20 09:35 Wound Center Nurse 1 [Ulcer Assessment] #9 R Lower Side Posterior -Current Size (cm) - Length 0.9 -Current Size (cm) - Width 1.1 -Current Size (cm) - Depth 0.3 -Total Square Cm 0.99 -Photo Taken No -Exudate Amt Medium -Exudate Type Serosanguineous -Wound Margin Distinct, Outline Attached -Granulation Amt Medium (34-66%) -Granulation Quality Red -Necrosis Amt Medium (34-66%) -Necrotic Tissue Type Adherent Slough -Structure Exposed N/A -Texture (Mayra-wound Skin Appearance) Scarring -Moisture (Mayra-wound Skin Appearance No Abnormality ) -Color (Mayra-wound Skin Appearance) No Abnormality, Rubor -Temperature (Mayra-wound Skin No Abnormality Appearance) (Pt Warm) -Tenderness on Palpation (Mayra-wound No Skin Appearance) -Ulcer Cleansing Wound Cleanser -Foul Odor after Cleansing No -Anesthetic Used 4% Lidocaine Solution #8 Right lower side Anterior -Current Size (cm) - Length 1 -Current Size (cm) - Width 3.6 -Current Size (cm) - Depth 0.2 -Total Square Cm 3.6 -Photo Taken No -Exudate Amt Medium -Exudate Type Serosanguineous -Wound Margin Fibrotic Scar, Thickened Scar -Granulation Amt Medium (34-66%) -Granulation Quality Red -Necrosis Amt Medium (34-66%) -Necrotic Tissue Type Adherent Slough -Structure Exposed N/A -Texture (Mayra-wound Skin Appearance) Scarring -Moisture (Mayra-wound Skin Appearance No Abnormality ) -Color (Mayra-wound Skin Appearance) No Abnormality -Tenderness on Palpation (Mayra-wound No Skin Appearance) -Ulcer Cleansing Wound Cleanser -Foul Odor after Cleansing No -Anesthetic Used 4% Lidocaine Solution 6. L lumbar back -Current Size (cm) - Length 2.8 -Current Size (cm) - Width 2.6 -Current Size (cm) - Depth 0.3 -Total Square Cm 7.28 -Photo Taken No -Exudate Amt Medium -Exudate Type Serosanguineous -Wound Margin Distinct, Outline Attached -Granulation Amt Medium (34-66%) -Granulation Quality Red -Necrosis Amt Medium (34-66%) -Necrotic Tissue Type Adherent Slough -Structure Exposed N/A -Texture (Mayra-wound Skin Appearance) Scarring -Moisture (Mayra-wound Skin Appearance No Abnormality ) -Color (Mayra-wound Skin Appearance) No Abnormality -Temperature (Mayra-wound Skin No Abnormality Appearance) (Pt Warm) -Tenderness on Palpation (Mayra-wound No Skin Appearance) -Ulcer Cleansing Wound Cleanser -Foul Odor after Cleansing No -Anesthetic Used 4% Lidocaine Solution WC - Nurse 2 - General Ulcer CM Notes Start: 05/18/20 09:31 Freq: Status: Active Protocol: Activity Type Activity Date Activity User E-Sign Co-Sign Detail Recorded Client Recorded Date Recorded By Document 05/18/20 09:53 [facility] [id number] 05/18/20 10:01 [facility] 05/18/20 09:53 Wound Center Nurse 2 [Procedure/Treatment] #9 R Lower Side Posterior -Time 09:55 -Correct Patient Yes -Correct Side, Site, Position Yes -Correct Procedure Yes -Procedure Performed Yes -Type of Procedure Debridement -Clinical Debridement Subcutaneous -Tissue Removed Subcutaneous -Post Debridement (cm) - Length 1.2 -Post Debridement (cm) - Width 3.5 -Post Debridement (cm) - Depth 0.2 -Total Square (Post) (cm) 4.20 -Area of Debridement (cm) - Length 1.2 -Area of Debridement (cm) - Width 3.5 -Total Square (Area) (cm) 4.20 -Tunneling No -Undermining/Tunneling No -Circular Undermining No -Wound/Ulcer Outcome Not Healed -Ulcer Cleansing Rinsed/ Irrigated with Saline -Foul Odor after Cleansing No -Bioengineered Tissue No -Bleeding Controlled with Pressure -Offloading No -Treatment Response Procedure Tolerated Well -Debridement - Subq, 1st 20sq cm No #8 Right lower side Anterior -Time 09:55 -Correct Patient Yes -Correct Side, Site, Position Yes -Correct Procedure Yes -Procedure Performed Yes -Type of Procedure Debridement -Clinical Debridement Subcutaneous -Tissue Removed Subcutaneous -Post Debridement (cm) - Length 0.8 -Post Debridement (cm) - Width 2 -Post Debridement (cm) - Depth 0.5 -Total Square (Post) (cm) 1.6 -Area of Debridement (cm) - Length 0.8 -Area of Debridement (cm) - Width 2 -Total Square (Area) (cm) 1.6 -Tunneling No -Undermining/Tunneling No -Circular Undermining No -Wound/Ulcer Outcome Not Healed -Ulcer Cleansing Rinsed/ Irrigated with Saline -Foul Odor after Cleansing No -Bioengineered Tissue No -Bleeding Controlled with Pressure -Offloading No -Treatment Response Procedure Tolerated Well -Debridement - Subq, 1st 20sq cm No 6. L lumbar back -Time 09:54 -Correct Patient Yes -Correct Side, Site, Position Yes -Correct Procedure Yes -Procedure Performed Yes -Type of Procedure Debridement -Clinical Debridement Subcutaneous -Tissue Removed Subcutaneous -Post Debridement (cm) - Length 2.9 -Post Debridement (cm) - Width 2.6 -Post Debridement (cm) - Depth 0.6 -Total Square (Post) (cm) 7.54 -Area of Debridement (cm) - Length 2.9 -Area of Debridement (cm) - Width 2.6 -Total Square (Area) (cm) 7.54 -Tunneling No -Undermining/Tunneling No -Circular Undermining No -Wound/Ulcer Outcome Not Healed -Ulcer Cleansing Rinsed/ Irrigated with Saline -Foul Odor after Cleansing No -Bioengineered Tissue No -Bleeding Controlled with Pressure -Offloading No -Treatment Response Procedure Tolerated Well -Debridement - Subq, 1st 20sq cm Yes [See Physician Procedure note for Specifics] Pain Scale: 0-10 Numeric [Pain] -Is Patient Pain Free? Yes WC - Nurse 3 - General Ulcer D/C NN Start: 05/18/20 09:31 Freq: Status: Active Protocol: Activity Type Activity Date Activity User E-Sign Co-Sign Detail Recorded Client Recorded Date Recorded By Document 05/18/20 10:14 [email or web address] [id number] 05/18/20 10:15 DL 05/18/20 10:14 Wound Care Nurse 3 [Wound Dressing] #9 R Lower Side Posterior -Ulcer Cleansing Rinsed/ Irrigated with Saline -Foul Odor after Cleansing No -Other Dressing promogran -Primary Dressing Covered/Secured Dry Gauze, with Secured with Tape #8 Right lower side Anterior -Ulcer Cleansing Rinsed/ Irrigated with Saline -Foul Odor after Cleansing No -Other Dressing promogran -Primary Dressing Covered/Secured Dry Gauze, with Secured with Tape 6. L lumbar back -Ulcer Cleansing Rinsed/ Irrigated with Saline -Foul Odor after Cleansing No -Other Dressing promogran -Primary Dressing Covered/Secured Dry Gauze, with Secured with Tape [Post Procedure Tolerated] -Treatment Response Procedure Tolerated Well Pain Scale: 0-10 Numeric [Pain] -Is Patient Pain Free? Yes - Visit Discharge [Visit Discharge Information] -Discharge Condition Stable -Ambulatory Status Ambulatory -Transportation Private Auto Musculoskeletal: No Tenderness to Palpation of Joints or Extremities Neurological: Cranial nerves II-XII grossly intact Psych/Mental Status: Normal Affect, Appropriate Debridement Note Post-Debridement Measurements/Treatment WC - Nurse 2 - General Ulcer CM Notes Start: 05/18/20 09:31 Freq: Status: Active Protocol: Activity Type Activity Date Activity User E-Sign Co-Sign Detail Recorded Client Recorded Date Recorded By Document 05/18/20 09:53 [facility] [id number] 05/18/20 10:01 05/18/20 09:53 Wound Center Nurse 2 #9 R Lower Side Posterior -Time 09:55 -Correct Patient Yes -Correct Side, Site, Position Yes -Correct Procedure Yes -Procedure Performed Yes -Type of Procedure Debridement -Clinical Debridement Subcutaneous -Tissue Removed Subcutaneous -Post Debridement (cm) - Length 1.2 -Post Debridement (cm) - Width 3.5 -Post Debridement (cm) - Depth 0.2 -Total Square (Post) (cm) 4.20 -Area of Debridement (cm) - Length 1.2 -Area of Debridement (cm) - Width 3.5 -Total Square (Area) (cm) 4.20 -Tunneling No -Undermining/Tunneling No -Circular Undermining No -Wound/Ulcer Outcome Not Healed -Ulcer Cleansing Rinsed/ Irrigated with Saline -Foul Odor after Cleansing No -Bioengineered Tissue No -Bleeding Controlled with Pressure -Offloading No -Treatment Response Procedure Tolerated Well -Debridement - Subq, 1st 20sq cm No #8 Right lower side Anterior -Time 09:55 -Correct Patient Yes -Correct Side, Site, Position Yes -Correct Procedure Yes -Procedure Performed Yes -Type of Procedure Debridement -Clinical Debridement Subcutaneous -Tissue Removed Subcutaneous -Post Debridement (cm) - Length 0.8 -Post Debridement (cm) - Width 2 -Post Debridement (cm) - Depth 0.5 -Total Square (Post) (cm) 1.6 -Area of Debridement (cm) - Length 0.8 -Area of Debridement (cm) - Width 2 -Total Square (Area) (cm) 1.6 -Tunneling No -Undermining/Tunneling No -Circular Undermining No -Wound/Ulcer Outcome Not Healed -Ulcer Cleansing Rinsed/ Irrigated with Saline -Foul Odor after Cleansing No -Bioengineered Tissue No -Bleeding Controlled with Pressure -Offloading No -Treatment Response Procedure Tolerated Well -Debridement - Subq, 1st 20sq cm No 6. L lumbar back -Time 09:54 -Correct Patient Yes -Correct Side, Site, Position Yes -Correct Procedure Yes -Procedure Performed Yes -Type of Procedure Debridement -Clinical Debridement Subcutaneous -Tissue Removed Subcutaneous -Post Debridement (cm) - Length 2.9 -Post Debridement (cm) - Width 2.6 -Post Debridement (cm) - Depth 0.6 -Total Square (Post) (cm) 7.54 -Area of Debridement (cm) - Length 2.9 -Area of Debridement (cm) - Width 2.6 -Total Square (Area) (cm) 7.54 -Tunneling No -Undermining/Tunneling No -Circular Undermining No -Wound/Ulcer Outcome Not Healed -Ulcer Cleansing Rinsed/ Irrigated with Saline -Foul Odor after Cleansing No -Bioengineered Tissue No -Bleeding Controlled with Pressure -Offloading No -Treatment Response Procedure Tolerated Well -Debridement - Subq, 1st 20sq cm Yes Pain Scale: 0-10 Numeric Is Patient Pain Free? Yes WC - Nurse 3 - General Ulcer D/C NN Start: 05/18/20 09:31 Freq: Status: Active Protocol: Activity Type Activity Date Activity User E-Sign Co-Sign Detail Recorded Client Recorded Date Recorded By Document 05/18/20 10:14 [email or web address] [id number] 05/18/20 10:15 DL 05/18/20 10:14 Wound Care Nurse 3 #9 R Lower Side Posterior -Ulcer Cleansing Rinsed/ Irrigated with Saline -Foul Odor after Cleansing No -Other Dressing promogran -Primary Dressing Covered/Secured with Dry Gauze, Secured with Tape #8 Right lower side Anterior -Ulcer Cleansing Rinsed/ Irrigated with Saline -Foul Odor after Cleansing No -Other Dressing promogran -Primary Dressing Covered/Secured with Dry Gauze, Secured with Tape 6. L lumbar back -Ulcer Cleansing Rinsed/ Irrigated with Saline -Foul Odor after Cleansing No -Other Dressing promogran -Primary Dressing Covered/Secured with Dry Gauze, Secured with Tape Treatment Response Procedure Tolerated Well Pain Scale: 0-10 Numeric Is Patient Pain Free? Yes WC - Visit Discharge Discharge Condition Stable Ambulatory Status Ambulatory Transportation Private Auto Wound debrided: lateral middle back ulcer Laterality: Left Type of Debridement: Excisional debridement Anesthesia Used: 4% Lidocaine Solution, 5% Lidocaine Gel, Cetacaine Depth: Down to and including healthy tissue, in the subcutaneous layer Percentage of wound debrided: 100 Instrument Used: 5mm curette Tissue Removed: Subcutaneous tissue and slough Severity: Fat Layer Exposed Amount of bleeding with debridement: Moderate Bleeding Controlled with: Pressure, Compression and gauze Patient tolerated procedure well - Additional Wound Wound debrided: flank ulcer Laterality: Right Type of Debridement: Excisional debridement Anesthesia Used: 4% Lidocaine Solution, 5% Lidocaine Gel, Cetacaine Depth: Down to and including healthy tissue, in the subcutaneous layer Percentage of wound debrided: 100 Instrument Used: 3mm curette Tissue Removed: Subcutaneous tissue and slough ulcer Severity: Fat Layer Exposed Amount of bleeding with debridement: Moderate Bleeding Controlled with: Pressure, Compression and gauze Assessment/Plan Assessment: 1. Nonhealing diabetic ulcer left lateral middle back. 2. Nonhealing diabetic ulcer right flank, s/p surgical closure 01/17/2020. 3. Diabetes mellitus. Plan: Wound care is Promogran dressing changes daily. Wear compression over right flank with abdominal binder. 10 applications of Epifix to the left middle lateral back ulcer have been completed. Right middle lateral back ulcer remains healed. He spoke with facilities and grounds director and he is referring him to another person. He is seeing a [facility] chiropracter/facilities and grounds director. He finished Clindamycin for a culture done on 03/23/20 that showed MRSE. Wound cultures from 05/04/20 the right flank was negative for bacterial growth. The left back was positive for resistant Staphylococcus epidermidis and Corynebacterium amycolatum. Will start on Linezolid because of the resistant Staph. Discussed plan of care with patient and would like him to consider having a PICC line for better coverage. Continue Linezolid. Follow up one week. [id number]: [id number] Pooja subq tissue 20 sq cm/<
[2020-05-25 09:17] VITALS: BP 120/65; PULSE 74; TEMP 36.5; BMI 27.8
--- NOTE | 2020-05-25 12:19 | PCM.WC.PN ---
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 Comment: Nonhealing ulcers right lateral middle back and left lateral middle back (2) Type 2 diabetes mellitus Status: Chronic Qualifiers: Code(s): E11.9 - Type 2 diabetes mellitus without complications Type of Wound Date of Service: 05/25/20 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: Nonhealing diabetic ulcer left lateral middle back and right flank. History of Wound: Surgery 01/17/2020?surgical preparation right flank with excisional debridement of nonhealing painful infected diabetic ulcer of the right flank with 7 cm complex secondary wound closure. Operative culture - negative. He was discharged on Doxycycline and has finished them. Wound care - he has completed 10 applications of Epifix to the left lateral middle back ulcer. He will do daily moistened Aquacel Ag covered by gauze. We took a break from products with silver to see if he is being sensitive to silver, there was no change in his wound with the Promogram which he has finished, will use Silver that he has at home. Prealbumin from 07/22/19 was 18.7. Encourage nutritonal supplementation with protein to help the healing process. His HgbA1c from 07/22/19 was 5.9. Right flank ulcer was surgically closed 01/17/20 and has developed some painful ulcerations. Wound culture from the left lateral middle back on 02/03/2020 was negative for aerobic and anaerobic growth. There was a repeat culture on 03/23/20 which showed MRSE. He was placed on Clindamycin and has completed them. Wound cultures from 05/04/20 the right flank was negative for bacterial growth. The left back was positive for resistant Staphylococcus epidermidis and Corynebacterium amycolatum. Cultures were discussed with Dr. Lemus before speaking with patient, and a plan of care was developed. Dr. Lemus would like the patient to consider doing IV antibiotics for the resistant bacteria, since this has been recurrent multiple times. Will start on Linzolid for the time being and the patient will think about his options and discuss them with his . Today he denies any fevers and states his appetite is good. Progress of Wound: Left middle lateral back ulcer stable. Right middle lateral back ulcer remains healed. Right flank ulcer has two areas that are stable. - Physical Exam Vital Signs Temp Pulse Resp BP Pulse Ox 97.7 F L 74 20 H 120/65 16 05/25/20 09:17 05/25/20 09:17 05/18/20 09:35 05/25/20 09:17 05/18/20 00:18 General: Alert, Oriented x3, Cooperative HEENT: Atraumatic Oral: Moist Mucosa Lungs: Normal air movement Cardiovascular: Regular rate Extremities: Capillary Refill Less than 3 Seconds Skin: Ulcer/ Wound - Left lateral, middle back ulcer with increased biofilm. Also very tender to palpation and debridement. Right flank ulcers are stable. There is a small purplish/bruised area posterior to the posterior ulcer on the right flank. Will monitor this closely. Wound Measurements and Assessment WC - Nurse 1 - General Ulcer Measurement Start: 05/18/20 09:31 Freq: Status: Active Protocol: Activity Type Activity Date Activity User E-Sign Co-Sign Detail Recorded Client Recorded Date Recorded By Document 05/25/20 09:17 DURGA [id number] 05/25/20 09:24 DURGA 05/25/20 09:17 Wound Center Nurse 1 [Ulcer Assessment] #9 R Lower Side Posterior -Current Size (cm) - Length 0.8 -Current Size (cm) - Width 1.8 -Current Size (cm) - Depth 0.3 -Total Square Cm 1.44 -Exudate Amt Medium -Exudate Type Serosanguineous -Wound Margin Distinct, Outline Attached -Granulation Amt Medium (34-66%) -Granulation Quality Red -Necrosis Amt Medium (34-66%) -Necrotic Tissue Type Adherent Slough -Texture (Mayra-wound Skin Appearance) Assessed, Scarring -Moisture (Mayra-wound Skin Appearance No Abnormality, ) Assessed -Color (Mayra-wound Skin Appearance) No Abnormality, Assessed -Temperature (Mayra-wound Skin No Abnormality Appearance) (Pt Warm) -Tenderness on Palpation (Mayra-wound Yes Skin Appearance) -Ulcer Cleansing Rinsed/ Irrigated with Saline -Foul Odor after Cleansing No -Anesthetic Used 4% Lidocaine Solution #8 Right lower side Anterior -Current Size (cm) - Length 1.5 -Current Size (cm) - Width 3.7 -Current Size (cm) - Depth 0.2 -Total Square Cm 5.55 -Exudate Amt Medium -Exudate Type Serosanguineous -Wound Margin Distinct, Outline Attached -Granulation Amt Medium (34-66%) -Granulation Quality Red -Necrosis Amt Medium (34-66%) -Necrotic Tissue Type Adherent Slough -Texture (Mayra-wound Skin Appearance) Assessed, Scarring -Moisture (Mayra-wound Skin Appearance No Abnormality, ) Assessed -Color (Mayra-wound Skin Appearance) No Abnormality, Assessed -Temperature (Mayra-wound Skin No Abnormality Appearance) (Pt Warm) -Tenderness on Palpation (Mayra-wound Yes Skin Appearance) -Ulcer Cleansing Rinsed/ Irrigated with Saline -Foul Odor after Cleansing No -Anesthetic Used 4% Lidocaine Solution 6. L lumbar back -Current Size (cm) - Length 3 -Current Size (cm) - Width 2.2 -Current Size (cm) - Depth 0.3 -Total Square Cm 6.6 -Exudate Amt Medium -Exudate Type Serosanguineous -Wound Margin Distinct, Outline Attached -Granulation Amt Medium (34-66%) -Granulation Quality Red -Necrosis Amt Medium (34-66%) -Necrotic Tissue Type Adherent Slough -Texture (Mayra-wound Skin Appearance) Assessed, Scarring -Moisture (Mayra-wound Skin Appearance No Abnormality, ) Assessed -Color (Mayra-wound Skin Appearance) No Abnormality, Assessed -Temperature (Mayra-wound Skin No Abnormality Appearance) (Pt Warm) -Tenderness on Palpation (Mayra-wound Yes Skin Appearance) -Ulcer Cleansing Rinsed/ Irrigated with Saline -Foul Odor after Cleansing No -Anesthetic Used 4% Lidocaine Solution WC - Nurse 2 - General Ulcer CM Notes Start: 05/18/20 09:31 Freq: Status: Active Protocol: Activity Type Activity Date Activity User E-Sign Co-Sign Detail Recorded Client Recorded Date Recorded By Document 05/25/20 09:38 [facility] [id number] 05/25/20 09:51 JF 05/25/20 09:38 Wound Center Nurse 2 [Procedure/Treatment] #9 R Lower Side Posterior -Time 09:49 -Correct Patient Yes -Correct Side, Site, Position Yes -Correct Procedure Yes -Procedure Performed Yes -Type of Procedure Debridement -Clinical Debridement Subcutaneous -Tissue Removed Subcutaneous -Post Debridement (cm) - Length 1.2 -Post Debridement (cm) - Width 3.6 -Post Debridement (cm) - Depth 0.2 -Total Square (Post) (cm) 4.32 -Area of Debridement (cm) - Length 1.2 -Area of Debridement (cm) - Width 3.6 -Total Square (Area) (cm) 4.32 -Tunneling No -Undermining/Tunneling No -Circular Undermining No -Wound/Ulcer Outcome Not Healed -Ulcer Cleansing Rinsed/ Irrigated with Saline -Foul Odor after Cleansing No -Bioengineered Tissue No -Bleeding Controlled with Pressure -Offloading No -Treatment Response Procedure Tolerated Well -Debridement - Subq, 1st 20sq cm No #8 Right lower side Anterior -Time 09:50 -Correct Patient Yes -Correct Side, Site, Position Yes -Correct Procedure Yes -Procedure Performed Yes -Type of Procedure Debridement -Clinical Debridement Subcutaneous -Tissue Removed Subcutaneous -Post Debridement (cm) - Length 0.9 -Post Debridement (cm) - Width 1.9 -Post Debridement (cm) - Depth 0.3 -Total Square (Post) (cm) 1.71 -Area of Debridement (cm) - Length 0.9 -Area of Debridement (cm) - Width 1.9 -Total Square (Area) (cm) 1.71 -Tunneling No -Undermining/Tunneling No -Circular Undermining No -Wound/Ulcer Outcome Not Healed -Ulcer Cleansing Rinsed/ Irrigated with Saline -Foul Odor after Cleansing No -Bioengineered Tissue No -Bleeding Controlled with Pressure -Offloading No -Treatment Response Procedure Tolerated Well -Debridement - Subq, 20sq cm No 6. L lumbar back -Time 09:45 -Correct Patient Yes -Correct Side, Site, Position Yes -Correct Procedure Yes -Procedure Performed Yes -Type of Procedure Debridement -Clinical Debridement Subcutaneous -Tissue Removed Subcutaneous -Post Debridement (cm) - Length 3 -Post Debridement (cm) - Width 2.5 -Post Debridement (cm) - Depth 0.4 -Total Square (Post) (cm) 7.5 -Area of Debridement (cm) - Length 3 -Area of Debridement (cm) - Width 2.5 -Total Square (Area) (cm) 7.5 -Tunneling No -Undermining/Tunneling No -Circular Undermining No -Wound/Ulcer Outcome Not Healed -Ulcer Cleansing Rinsed/ Irrigated with Saline -Foul Odor after Cleansing No -Bioengineered Tissue No -Bleeding Controlled with Pressure -Offloading No -Treatment Response Procedure Tolerated Well -Debridement - Subq, 20sq cm Yes [See Physician Procedure note for Specifics] Pain Scale: 0-10 Numeric [Pain] -Is Patient Pain Free? Yes - Nurse 3 - General Ulcer D/C NN Start: 05/18/20 09:31 Freq: Status: Active Protocol: Activity Type Activity Date Activity User E-Sign Co-Sign Detail Recorded Client Recorded Date Recorded By Document 05/25/20 09:59 [facility] [id number] 05/25/20 10:01 DURGA 05/25/20 09:59 Wound Care Nurse 3 [Wound Dressing] #9 R Lower Side Posterior -Ulcer Cleansing Rinsed/ Irrigated with Saline -Foul Odor after Cleansing No -Primary Dressing Applied Aquacel AG 4x4, NonAdherent Contact Layer -Primary Dressing Covered/Secured Secured with with Tape,Other -Other Covering abd -Aquacel AG 4x4 1 #8 Right lower side Anterior -Ulcer Cleansing Rinsed/ Irrigated with Saline -Foul Odor after Cleansing No -Primary Dressing Applied Aquacel AG 4x4 -Primary Dressing Covered/Secured Secured with with Tape,Other -Other Covering abd -Aquacel AG 4x4 0 6. L lumbar back -Ulcer Cleansing Rinsed/ Irrigated with Saline -Foul Odor after Cleansing No -Primary Dressing Applied Aquacel AG 4x4, NonAdherent Contact Layer -Primary Dressing Covered/Secured Secured with with Tape,Other -Other Covering abd -Aquacel AG 4x4 0 [Post Procedure Tolerated] -Treatment Response Procedure Tolerated Well Pain Scale: 0-10 Numeric [Pain] -Is Patient Pain Free? Yes - Visit Discharge [Visit Discharge Information] -Discharge Condition Stable -Ambulatory Status Ambulatory -Transportation Private Auto Musculoskeletal: Tenderness Neurological: Cranial nerves II-XII grossly intact Psych/Mental Status: Normal Affect, Appropriate Debridement Note Post-Debridement Measurements/Treatment - Nurse 2 - General Ulcer CM Notes Start: 05/18/20 09:31 Freq: Status: Active Protocol: Activity Type Activity Date Activity User E-Sign Co-Sign Detail Recorded Client Recorded Date Recorded By Document 05/18/20 09:53 [facility] [id number] 05/18/20 10:01 JF Document 05/25/20 09:38 [facility] [id number] 05/25/20 09:51 JF 05/18/20 05/25/20 09:53 09:38 Wound Center Nurse 2 #9 R Lower Side Posterior -Time 09:55 09:49 -Correct Patient Yes Yes -Correct Side, Site, Position Yes Yes -Correct Procedure Yes Yes -Procedure Performed Yes Yes -Type of Procedure Debridement Debridement -Clinical Debridement Subcutaneous Subcutaneous -Tissue Removed Subcutaneous Subcutaneous -Post Debridement (cm) - Length 1.2 1.2 -Post Debridement (cm) - Width 3.5 3.6 -Post Debridement (cm) - Depth 0.2 0.2 -Total Square (Post) (cm) 4.20 4.32 -Area of Debridement (cm) - Length 1.2 1.2 -Area of Debridement (cm) - Width 3.5 3.6 -Total Square (Area) (cm) 4.20 4.32 -Tunneling No No -Undermining/Tunneling No No -Circular Undermining No No -Wound/Ulcer Outcome Not Healed Not Healed -Ulcer Cleansing Rinsed/ Rinsed/ Irrigated with Irrigated with Saline Saline -Foul Odor after Cleansing No No -Bioengineered Tissue No No -Bleeding Controlled with Pressure Pressure -Offloading No No -Treatment Response Procedure Procedure Tolerated Well Tolerated Well -Debridement - Subq, 1st 20sq cm No No #8 Right lower side Anterior -Time 09:50 -Correct Patient Yes Yes -Correct Side, Site, Position Yes Yes -Correct Procedure Yes Yes -Procedure Performed Yes Yes -Type of Procedure Debridement Debridement -Clinical Debridement Subcutaneous Subcutaneous -Tissue Removed Subcutaneous Subcutaneous -Post Debridement (cm) - Length 0.8 0.9 -Post Debridement (cm) - Width 2 1.9 -Post Debridement (cm) - Depth 0.5 0.3 -Total Square (Post) (cm) 1.6 1.71 -Area of Debridement (cm) - Length 0.8 0.9 -Area of Debridement (cm) - Width 2 1.9 -Total Square (Area) (cm) 1.6 1.71 -Tunneling No No -Undermining/Tunneling No No -Circular Undermining No No -Wound/Ulcer Outcome Not Healed Not Healed -Ulcer Cleansing Rinsed/ Rinsed/ Irrigated with Irrigated with Saline Saline -Foul Odor after Cleansing No No -Bioengineered Tissue No No -Bleeding Controlled with Pressure Pressure -Offloading No No -Treatment Response Procedure Procedure Tolerated Well Tolerated Well -Debridement - Subq, 1st 20sq cm No No 6. L lumbar back -Time 09:54 09:45 -Correct Patient Yes Yes -Correct Side, Site, Position Yes Yes -Correct Procedure Yes Yes -Procedure Performed Yes Yes -Type of Procedure Debridement Debridement -Clinical Debridement Subcutaneous Subcutaneous -Tissue Removed Subcutaneous Subcutaneous -Post Debridement (cm) - Length 2.9 3 -Post Debridement (cm) - Width 2.6 2.5 -Post Debridement (cm) - Depth 0.6 0.4 -Total Square (Post) (cm) 7.54 7.5 -Area of Debridement (cm) - Length 2.9 3 -Area of Debridement (cm) - Width 2.6 2.5 -Total Square (Area) (cm) 7.54 7.5 -Tunneling No No -Undermining/Tunneling No No -Circular Undermining No No -Wound/Ulcer Outcome Not Healed Not Healed -Ulcer Cleansing Rinsed/ Rinsed/ Irrigated with Irrigated with Saline Saline -Foul Odor after Cleansing No No -Bioengineered Tissue No No -Bleeding Controlled with Pressure Pressure -Offloading No No -Treatment Response Procedure Procedure Tolerated Well Tolerated Well -Debridement - Subq, 1st 20sq cm Yes Yes Pain Scale: 0-10 Numeric Is Patient Pain Free? Yes Yes WC - Nurse 3 - General Ulcer D/C NN Start: 05/18/20 09:31 Freq: Status: Active Protocol: Activity Type Activity Date Activity User E-Sign Co-Sign Detail Recorded Client Recorded Date Recorded By Document 05/18/20 10:14 DL [id number] 05/18/20 10:15 DL Document 05/25/20 09:59 KR [id number] 05/25/20 10:01 KR 05/18/20 05/25/20 10:14 09:59 Wound Care Nurse 3 #9 R Lower Side Posterior -Ulcer Cleansing Rinsed/ Rinsed/ Irrigated with Irrigated with Saline Saline -Foul Odor after Cleansing No No -Primary Dressing Applied Aquacel AG 4x4, NonAdherent Contact Layer -Other Dressing promogran -Primary Dressing Covered/Secured with Dry Gauze, Secured with Secured with Tape,Other Tape -Other Covering abd -Aquacel AG 4x4 1 #8 Right lower side Anterior -Ulcer Cleansing Rinsed/ Rinsed/ Irrigated with Irrigated with Saline Saline -Foul Odor after Cleansing No No -Primary Dressing Applied Aquacel AG 4x4 -Other Dressing promogran -Primary Dressing Covered/Secured with Dry Gauze, Secured with Secured with Tape,Other Tape -Other Covering abd -Aquacel AG 4x4 0 6. L lumbar back -Ulcer Cleansing Rinsed/ Rinsed/ Irrigated with Irrigated with Saline Saline -Foul Odor after Cleansing No No -Primary Dressing Applied Aquacel AG 4x4, NonAdherent Contact Layer -Other Dressing promogran -Primary Dressing Covered/Secured with Dry Gauze, Secured with Secured with Tape,Other Tape -Other Covering abd -Aquacel AG 4x4 0 Treatment Response Procedure Procedure Tolerated Well Tolerated Well Pain Scale: 0-10 Numeric Is Patient Pain Free? Yes Yes WC - Visit Discharge Discharge Condition Stable Stable Ambulatory Status Ambulatory Ambulatory Transportation Private Auto Private Auto Wound debrided: lateral, middle back ulcer Laterality: Left Type of Debridement: Excisional debridement Anesthesia Used: 5% Lidocaine Gel, Cetacaine Depth: Down to and including healthy tissue, in the subcutaneous layer Percentage of wound debrided: 100 Instrument Used: 5mm curette Tissue Removed: Subcutaneous tissue and slough Severity: Fat Layer Exposed Amount of bleeding with debridement: Mild Bleeding Controlled with: Pressure, Compression and gauze Patient tolerated procedure well - Additional Wound Wound debrided: Flank ulcers Laterality: Right Type of Debridement: Excisional debridement Anesthesia Used: 5% Lidocaine Gel, Cetacaine Depth: Down to and including healthy tissue, in the subcutaneous layer Percentage of wound debrided: 100 Instrument Used: 3mm curette Tissue Removed: Subcutaneous tissue and slough Severity: Fat Layer Exposed Amount of bleeding with debridement: Mild Bleeding Controlled with: Pressure, Compression and gauze Patient tolerated procedure: Patient tolerated procedure well Assessment/Plan Active Problems (Last Reviewed 03/18/20 @ 16:[address] 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 Nonhealing diabetic ulcer left lateral middle back. 2. Nonhealing diabetic ulcer right flank, s/p surgical closure 01/17/2020. 3. Diabetes mellitus. Plan: Wound care, stop Promogran since he has run out and will restart Aquace-Ag, moistened with adaptic dressing changes daily. Wear compression over right flank with abdominal binder. 10 applications of Epifix to the left middle lateral back ulcer have been completed. Right middle lateral back ulcer remains healed. He spoke with delivery tech and he is referring him to another person. He is seeing a [employer] chiropracter/delivery tech. He finished Clindamycin for a culture done on 03/23/20 that showed MRSE. Wound cultures from 05/04/20 the right flank was negative for bacterial growth. The left back was positive for resistant Staphylococcus epidermidis and Corynebacterium amycolatum. Will start on Linezolid because of the resistant Staph. Discussed plan of care with patient and would like him to consider having a PICC line for better coverage. Continue Linezolid. Follow up one week. [id number]: [id number] Pooja subq tissue 20 sq cm/<
[2020-06-01 09:31] VITALS: RESP 18; TEMP 36.5; BMI 27.8
--- NOTE | 2020-06-01 23:36 | PN.PCM_ITS ---
Type of Wound Date of Service: 06/01/20 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: Nonhealing diabetic ulcer left lateral middle back and right flank. History of Wound: Surgery 01/17/2020?surgical preparation right flank with excisional debridement of nonhealing painful infected diabetic ulcer of the right flank with 7 cm complex secondary wound closure. Operative culture - negative. He was discharged on Doxycycline and has finished them. Wound care - he has completed 10 applications of Epifix to the left lateral middle back ulcer. Silver dressing changes. Prealbumin from 07/22/19 was 18.7. Encourage nutritonal supplementation with protein to help the healing process. His HgbA1c from 07/22/19 was 5.9. Right flank ulcer was surgically closed 01/17/20 and has developed some painful ulcerations. Wound culture from the left lateral middle back on 02/03/2020 was negative for aerobic and anaerobic growth. There was a repeat culture on 03/23/20 which showed MRSE. He was placed on Clindamycin and has completed them. Wound cultures from 05/04/20 from the right flank was negative for bacterial growth. The left back was positive MRSE and Corynebacterium amycolatum. He was started on Linzolid for the time being and the patient will think about his options and discuss them with his . Other option includes IV antibiotics. Today he denies any fevers and states his appetite is good. He is scheduled to see an Enrollment Consultant next month. Progress of Wound: Left middle lateral back ulcer stable. Right middle lateral back ulcer remains healed. Right flank ulcer has two areas that are stable. - Physical Exam Vital Signs Temp Pulse Resp BP Pulse Ox 97.7 F L 74 18 120/65 16 06/01/20 09:31 05/25/20 09:17 06/01/20 09:31 05/25/20 09:17 05/18/20 00:18 Wound Measurements and Assessment WC - Nurse 1 - General Ulcer Measurement Start: 05/18/20 09:31 Freq: Status: Active Protocol: Activity Type Activity Date Activity User E-Sign Co-Sign Detail Recorded Client Recorded Date Recorded By Document 06/01/20 09:31 DL [id number] 06/01/20 09:38 DL 06/01/20 09:31 Wound Center Nurse 1 [Ulcer Assessment] #9 R Lower Side Posterior -Current Size (cm) - Length 1.3 -Current Size (cm) - Width 4 -Current Size (cm) - Depth 0.2 -Total Square Cm 5.2 -Photo Taken No -Exudate Amt Medium -Exudate Type Serosanguineous -Wound Margin Distinct, Outline Attached -Granulation Amt Large (67-100%) -Granulation Quality Red -Necrosis Amt Small (1-33%) -Necrotic Tissue Type Adherent Slough -Structure Exposed N/A -Texture (Mayra-wound Skin Appearance) Scarring -Moisture (Mayra-wound Skin Appearance No Abnormality ) -Color (Mayra-wound Skin Appearance) Rubor -Temperature (Mayra-wound Skin No Abnormality Appearance) (Pt Warm) -Tenderness on Palpation (Mayra-wound No Skin Appearance) -Ulcer Cleansing Rinsed/ Irrigated with Saline -Foul Odor after Cleansing No -Anesthetic Used 4% Lidocaine Solution #8 Right lower side Anterior -Current Size (cm) - Length 0.9 -Current Size (cm) - Width 2 -Current Size (cm) - Depth 0.2 -Total Square Cm 1.8 -Photo Taken No -Exudate Amt Medium -Exudate Type Serosanguineous -Wound Margin Distinct, Outline Attached -Granulation Amt Large (67-100%) -Granulation Quality Red -Necrosis Amt Small (1-33%) -Necrotic Tissue Type Adherent Slough -Structure Exposed N/A -Texture (Mayra-wound Skin Appearance) Scarring -Moisture (Mayra-wound Skin Appearance No Abnormality ) -Color (Mayra-wound Skin Appearance) No Abnormality, Rubor -Temperature (Mayra-wound Skin No Abnormality Appearance) (Pt Warm) -Tenderness on Palpation (Mayra-wound No Skin Appearance) -Ulcer Cleansing Rinsed/ Irrigated with Saline -Foul Odor after Cleansing No -Anesthetic Used 4% Lidocaine Solution 6. L lumbar back -Current Size (cm) - Length 3 -Current Size (cm) - Width 2.5 -Current Size (cm) - Depth 0.2 -Total Square Cm 7.5 -Photo Taken No -Exudate Amt Medium -Exudate Type Serosanguineous -Wound Margin Distinct, Outline Attached -Granulation Amt Large (67-100%) -Granulation Quality Red -Necrosis Amt Small (1-33%) -Necrotic Tissue Type Adherent Slough -Structure Exposed N/A -Texture (Mayra-wound Skin Appearance) Scarring -Moisture (Mayra-wound Skin Appearance No Abnormality ) -Color (Mayra-wound Skin Appearance) No Abnormality -Temperature (Mayra-wound Skin No Abnormality Appearance) (Pt Warm) -Tenderness on Palpation (Mayra-wound No Skin Appearance) -Ulcer Cleansing Rinsed/ Irrigated with Saline -Foul Odor after Cleansing No -Anesthetic Used 4% Lidocaine Solution WC - Nurse 2 - General Ulcer CM Notes Start: 05/18/20 09:31 Freq: Status: Active Protocol: Activity Type Activity Date Activity User E-Sign Co-Sign Detail Recorded Client Recorded Date Recorded By Document 06/01/20 10:12 [facility] [id number] 06/01/20 10:22 [facility] 06/01/20 10:12 Wound Center Nurse 2 [Procedure/Treatment] #9 R Lower Side Posterior -Time 10:12 -Correct Patient Yes -Correct Side, Site, Position Yes -Correct Procedure Yes -Procedure Performed Yes -Type of Procedure Debridement -Clinical Debridement Subcutaneous -Tissue Removed Subcutaneous -Post Debridement (cm) - Length 1 -Post Debridement (cm) - Width 4 -Post Debridement (cm) - Depth 0.3 -Total Square (Post) (cm) 4 -Area of Debridement (cm) - Length 1 -Area of Debridement (cm) - Width 4 -Total Square (Area) (cm) 4 -Tunneling No -Undermining/Tunneling No -Circular Undermining No -Wound/Ulcer Outcome Not Healed -Ulcer Cleansing Rinsed/ Irrigated with Saline -Foul Odor after Cleansing No -Bioengineered Tissue No -Bleeding Controlled with Pressure -Offloading No -Treatment Response Procedure Tolerated Well -Debridement - Subq, 1st 20sq cm No #8 Right lower side Anterior -Time 10:13 -Correct Patient Yes -Correct Side, Site, Position Yes -Correct Procedure Yes -Procedure Performed Yes -Type of Procedure Debridement -Clinical Debridement Subcutaneous -Tissue Removed Subcutaneous -Post Debridement (cm) - Length 0.9 -Post Debridement (cm) - Width 2 -Post Debridement (cm) - Depth 0.3 -Total Square (Post) (cm) 1.8 -Area of Debridement (cm) - Length 0.9 -Area of Debridement (cm) - Width 2 -Total Square (Area) (cm) 1.8 -Tunneling No -Undermining/Tunneling No -Circular Undermining No -Wound/Ulcer Outcome Not Healed -Ulcer Cleansing Rinsed/ Irrigated with Saline -Foul Odor after Cleansing No -Bioengineered Tissue No -Bleeding Controlled with Pressure -Offloading No -Treatment Response Procedure Tolerated Well -Debridement - Subq, 1st 20sq cm No 6. L lumbar back -Time 10:13 -Correct Patient Yes -Correct Side, Site, Position Yes -Correct Procedure Yes -Procedure Performed Yes -Type of Procedure Debridement -Clinical Debridement Subcutaneous -Tissue Removed Subcutaneous -Post Debridement (cm) - Length 3 -Post Debridement (cm) - Width 2.5 -Post Debridement (cm) - Depth 0.5 -Total Square (Post) (cm) 7.5 -Area of Debridement (cm) - Length 3 -Area of Debridement (cm) - Width 2.5 -Total Square (Area) (cm) 7.5 -Tunneling No -Undermining/Tunneling No -Circular Undermining No -Wound/Ulcer Outcome Not Healed -Ulcer Cleansing Rinsed/ Irrigated with Saline -Foul Odor after Cleansing No -Bioengineered Tissue No -Bleeding Controlled with Pressure -Offloading No -Treatment Response Procedure Tolerated Well -Debridement - Subq, 1st 20sq cm Yes [See Physician Procedure note for Specifics] Pain Scale: 0-10 Numeric [Pain] -Is Patient Pain Free? Yes WC - Nurse 3 - General Ulcer D/C NN Start: 05/18/20 09:31 Freq: Status: Active Protocol: Activity Type Activity Date Activity User E-Sign Co-Sign Detail Recorded Client Recorded Date Recorded By Document 06/01/20 10:26 DL [id number] 06/01/20 10:31 DL 06/01/20 10:26 Wound Care Nurse 3 [Wound Dressing] #9 R Lower Side Posterior -Ulcer Cleansing Rinsed/ Irrigated with Saline -Foul Odor after Cleansing No -Primary Dressing Applied Aquacel AG 4x4 -Primary Dressing Covered/Secured Dry Gauze, with Secured with Tape -Aquacel AG 4x4 1 #8 Right lower side Anterior -Ulcer Cleansing Rinsed/ Irrigated with Saline -Foul Odor after Cleansing No -Other Dressing aquacel ag -Primary Dressing Covered/Secured Dry Gauze, with Secured with Tape 6. L lumbar back -Ulcer Cleansing Rinsed/ Irrigated with Saline -Foul Odor after Cleansing No -Other Dressing aquacel ag -Primary Dressing Covered/Secured Dry Gauze, with Secured with Tape [Post Procedure Tolerated] -Treatment Response Procedure Tolerated Well Pain Scale: 0-10 Numeric [Pain] -Is Patient Pain Free? Yes - Visit Discharge [Visit Discharge Information] -Discharge Condition Stable -Ambulatory Status Ambulatory -Transportation Private Auto Debridement Note Post-Debridement Measurements/Treatment - Nurse 2 - General Ulcer CM Notes Start: 05/18/20 09:31 Freq: Status: Active Protocol: Activity Type Activity Date Activity User E-Sign Co-Sign Detail Recorded Client Recorded Date Recorded By Document 05/18/20 09:53 [id number] 05/18/20 10:01 Document 05/25/20 09:38 [id number] 05/25/20 09:51 Document 06/01/20 10:12 [id number] 06/01/20 10:22 05/18/20 05/25/20 06/01/20 09:53 09:38 10:12 Wound Center Nurse 2 #9 R Lower Side Posterior -Time 09:55 09:49 10:12 -Correct Patient Yes Yes Yes -Correct Side, Site, Position Yes Yes Yes -Correct Procedure Yes Yes Yes -Procedure Performed Yes Yes Yes -Type of Procedure Debridement Debridement Debridement -Clinical Debridement Subcutaneous Subcutaneous Subcutaneous -Tissue Removed Subcutaneous Subcutaneous Subcutaneous -Post Debridement (cm) - Length 1.2 1.2 1 -Post Debridement (cm) - Width 3.5 3.6 4 -Post Debridement (cm) - Depth 0.2 0.2 0.3 -Total Square (Post) (cm) 4.20 4.32 4 -Area of Debridement (cm) - Length 1.2 1.2 1 -Area of Debridement (cm) - Width 3.5 3.6 4 -Total Square (Area) (cm) 4.20 4.32 4 -Tunneling No No No -Undermining/Tunneling No No No -Circular Undermining No No No -Wound/Ulcer Outcome Not Healed Not Healed Not Healed -Ulcer Cleansing Rinsed/ Rinsed/ Rinsed/ Irrigated with Irrigated with Irrigated with Saline Saline Saline -Foul Odor after Cleansing No No No -Bioengineered Tissue No No No -Bleeding Controlled with Pressure Pressure Pressure -Offloading No No No -Treatment Response Procedure Procedure Procedure Tolerated Well Tolerated Well Tolerated Well -Debridement - Subq, 1st 20sq cm No No No #8 Right lower side Anterior -Time 09:55 09:50 10:13 -Correct Patient Yes Yes Yes -Correct Side, Site, Position Yes Yes Yes -Correct Procedure Yes Yes Yes -Procedure Performed Yes Yes Yes -Type of Procedure Debridement Debridement Debridement -Clinical Debridement Subcutaneous Subcutaneous Subcutaneous -Tissue Removed Subcutaneous Subcutaneous Subcutaneous -Post Debridement (cm) - Length 0.8 0.9 0.9 -Post Debridement (cm) - Width 2 1.9 2 -Post Debridement (cm) - Depth 0.5 0.3 0.3 -Total Square (Post) (cm) 1.6 1.71 1.8 -Area of Debridement (cm) - Length 0.8 0.9 0.9 -Area of Debridement (cm) - Width 2 1.9 2 -Total Square (Area) (cm) 1.6 1.71 1.8 -Tunneling No No No -Undermining/Tunneling No No No -Circular Undermining No No No -Wound/Ulcer Outcome Not Healed Not Healed Not Healed -Ulcer Cleansing Rinsed/ Rinsed/ Rinsed/ Irrigated with Irrigated with Irrigated with Saline Saline Saline -Foul Odor after Cleansing No No No -Bioengineered Tissue No No No -Bleeding Controlled with Pressure Pressure Pressure -Offloading No No No -Treatment Response Procedure Procedure Procedure Tolerated Well Tolerated Well Tolerated Well -Debridement - Subq, 1st 20sq cm No No No 6. L lumbar back -Time 09:54 09:45 10:13 -Correct Patient Yes Yes Yes -Correct Side, Site, Position Yes Yes Yes -Correct Procedure Yes Yes Yes -Procedure Performed Yes Yes Yes -Type of Procedure Debridement Debridement Debridement -Clinical Debridement Subcutaneous Subcutaneous Subcutaneous -Tissue Removed Subcutaneous Subcutaneous Subcutaneous -Post Debridement (cm) - Length 2.9 3 3 -Post Debridement (cm) - Width 2.6 2.5 2.5 -Post Debridement (cm) - Depth 0.6 0.4 0.5 -Total Square (Post) (cm) 7.54 7.5 7.5 -Area of Debridement (cm) - Length 2.9 3 3 -Area of Debridement (cm) - Width 2.6 2.5 2.5 -Total Square (Area) (cm) 7.54 7.5 7.5 -Tunneling No No No -Undermining/Tunneling No No No -Circular Undermining No No No -Wound/Ulcer Outcome Not Healed Not Healed Not Healed -Ulcer Cleansing Rinsed/ Rinsed/ Rinsed/ Irrigated with Irrigated with Irrigated with Saline Saline Saline -Foul Odor after Cleansing No No No -Bioengineered Tissue No No No -Bleeding Controlled with Pressure Pressure Pressure -Offloading No No No -Treatment Response Procedure Procedure Procedure Tolerated Well Tolerated Well Tolerated Well -Debridement - Subq, 1st 20sq cm Yes Yes Yes Pain Scale: 0-10 Numeric Is Patient Pain Free? Yes Yes Yes WC - Nurse 3 - General Ulcer D/C NN Start: 05/18/20 09:31 Freq: Status: Active Protocol: Activity Type Activity Date Activity User E-Sign Co-Sign Detail Recorded Client Recorded Date Recorded By Document 05/18/20 10:14 DL [id number] 05/18/20 10:15 DL Document 05/25/20 09:59 KR [id number] 05/25/20 10:01 KR Document 06/01/20 10:26 DL [id number] 06/01/20 10:31 DL 05/18/20 05/25/20 06/01/20 10:14 09:59 10:26 Wound Care Nurse 3 #9 R Lower Side Posterior -Ulcer Cleansing Rinsed/ Rinsed/ Rinsed/ Irrigated with Irrigated with Irrigated with Saline Saline Saline -Foul Odor after Cleansing No No No -Primary Dressing Applied Aquacel AG 4x4, Aquacel AG 4x4 NonAdherent Contact Layer -Other Dressing promogran -Primary Dressing Covered/Secured with Dry Gauze, Secured with Dry Gauze, Secured with Tape,Other Secured with Tape Tape -Other Covering abd -Aquacel AG 4x4 1 1 #8 Right lower side Anterior -Ulcer Cleansing Rinsed/ Rinsed/ Rinsed/ Irrigated with Irrigated with Irrigated with Saline Saline Saline -Foul Odor after Cleansing No No No -Primary Dressing Applied Aquacel AG 4x4 -Other Dressing promogran aquacel ag -Primary Dressing Covered/Secured with Dry Gauze, Secured with Dry Gauze, Secured with Tape,Other Secured with Tape Tape -Other Covering abd -Aquacel AG 4x4 0 6. L lumbar back -Ulcer Cleansing Rinsed/ Rinsed/ Rinsed/ Irrigated with Irrigated with Irrigated with Saline Saline Saline -Foul Odor after Cleansing No No No -Primary Dressing Applied Aquacel AG 4x4, NonAdherent Contact Layer -Other Dressing promogran aquacel ag -Primary Dressing Covered/Secured with Dry Gauze, Secured with Dry Gauze, Secured with Tape,Other Secured with Tape Tape -Other Covering abd -Aquacel AG 4x4 0 Treatment Response Procedure Procedure Procedure Tolerated Well Tolerated Well Tolerated Well Pain Scale: 0-10 Numeric Is Patient Pain Free? Yes Yes Yes WC - Visit Discharge Discharge Condition Stable Stable Stable Ambulatory Status Ambulatory Ambulatory Ambulatory Transportation Private Auto Private Auto Private Auto Wound debrided: #6 Left lateral middle back. Laterality: Left Wound Grade/Stage: 2. Type of Debridement: Excisional debridement Anesthesia Used: 4% Lidocaine Solution Depth: Down to and including healthy tissue, in the subcutaneous layer Percentage of wound debrided: 100 Instrument Used: 3mm curette Tissue Removed: subcutaneous tissue. Severity: Fat Layer Exposed Amount of bleeding with debridement: Mild Bleeding Controlled with: Pressure Patient tolerated procedure well - Additional Wound Wound debrided: #8 Right flank, anterior. Laterality: Right Wound Grade/Stage: 2. Type of Debridement: Excisional debridement Anesthesia Used: 4% Lidocaine Solution Depth: Down to and including healthy tissue, in the subcutaneous layer Percentage of wound debrided: 100 Instrument Used: 3mm curette Tissue Removed: subcutaneous tissue. Severity: Fat Layer Exposed Amount of bleeding with debridement: Mild Bleeding Controlled with: Pressure Patient tolerated procedure: Patient tolerated procedure well - Additional Wound Wound debrided: #9 Right flank, posterior. Laterality: Right Wound Grade/Stage: 2. Type of Debridement: Excisional debridement Anesthesia Used: 4% Lidocaine Solution Depth: Down to and including healthy tissue, in the subcutaneous layer Percentage of wound debrided: 100 Instrument Used: 3mm curette Tissue Removed: subcutaneous tissue. Severity: Fat Layer Exposed Amount of bleeding with debridement: Mild Bleeding Controlled with: Pressure Patient tolerated procedure: Patient tolerated procedure well Assessment/Plan Active Problems (Last Reviewed 03/18/20 @ 16:[address] 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 Nonhealing diabetic ulcer left lateral middle back. 2. Nonhealing diabetic ulcers right flank, s/p surgical closure 01/17/2020. 3. Diabetes mellitus. Plan: Continue Silver dressing changes daily. Wear compression over right flank with abdominal binder. 10 applications of Epifix to the left middle lateral back ulcer have been completed. Right middle lateral back ulcer remains healed. He spoke with sales and service officer and he is referring him to another person. He is seeing a Tobacco Primer Machine Operator chiropracter/sales and service officer next month. He finished Clindamycin for a culture done on 03/23/20 that showed MRSE. Wound culture from 05/04/20 in the right flank was negative for bacterial growth. Wpound culture from the left lateral middle back was positive for MRSE and Corynebacterium amycolatum. He was started on Linezolid because of the resistant Staph and will continue them. Discussed with the patient about IV antibiotics through a PICC line. He will think about IV antibiotics and wants to wait until after his Enrollment Consultant vist billfo re deciding. Prealbumin from 07/22/19 was 18.7. Encourage nutritonal supplementation with protein to help the healing process. His HgbA1c from 07/22/19 was 5.9. Followup one week. [id number]: [id number] Pooja subq tissue 20 sq cm/< - ICD-10 - L98.492, A49.8, E11.9, T86.829
[2020-06-08 09:46] VITALS: BP 104/67; PULSE 80; RESP 18; TEMP 36.6; BMI 27.8
--- NOTE | 2020-06-08 13:04 | PN.PCM_ITS ---
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 Comment: Nonhealing ulcers right lateral middle back and left lateral middle back (2) Type 2 diabetes mellitus Status: Chronic Qualifiers: Code(s): E11.9 - Type 2 diabetes mellitus without complications Type of Wound Date of Service: 06/08/20 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: Nonhealing diabetic ulcer left lateral middle back and right flank. History of Wound: Surgery 01/17/2020?surgical preparation right flank with excisional debridement of nonhealing painful infected diabetic ulcer of the right flank with 7 cm complex secondary wound closure. Operative culture - negative. He was discharged on Doxycycline and has finished them. Wound care - he has completed 10 applications of Epifix to the left lateral middle back ulcer. Silver dressing changes. Using chlorhexidine twice weekly. Prealbumin from 07/22/19 was 18.7. Encourage nutritonal supplementation with protein to help the healing process. His HgbA1c from 07/22/19 was 5.9. Right flank ulcer was surgically closed 01/17/20 and has developed some painful ulcerations. Wound culture from the left lateral middle back on 02/03/2020 was negative for aerobic and anaerobic growth. There was a repeat culture on 03/23/20 which showed MRSE. He was placed on Clindamycin and has completed them. Wound cultures from 05/04/20 from the right flank was negative for bacterial growth. The left back w as positive MRSE and Corynebacterium amycolatum. He was started on Linzolid for the time being and the patient will think about his options and discuss them with his . Other option includes IV antibiotics. Today he denies any fevers and states his appetite is good. He is scheduled to see an Director Of Quality Control next month. Progress of Wound: Left middle lateral back ulcer stable. Right middle lateral back ulcer remains healed. Right flank ulcer has two areas that are stable. - Physical Exam Vital Signs Temp Pulse Resp BP Pulse Ox 97.9 F 80 18 104/67 16 06/08/20 09:46 06/08/20 09:46 06/08/20 09:46 06/08/20 09:46 05/18/20 00:18 General: Alert, Oriented x3, Cooperative HEENT: Atraumatic Oral: Moist Mucosa Lungs: Normal air movement Cardiovascular: Regular rate Extremities: No edema, Capillary Refill Less than 3 Seconds Skin: Ulcer/ Wound - Left lateral, middle back ulcer is stable, there may be a small area of granuation tissue present on the lateral edge. The right flank clusters are stable. Both areas are very sensitive to touch. Wound Measurements and Assessment WC - Nurse 1 - General Ulcer Measurement Start: 05/18/20 09:31 Freq: Status: Active Protocol: Activity Type Activity Date Activity User E-Sign Co-Sign Detail Recorded Client Recorded Date Recorded By Document 06/08/20 09:46 DL [id number] 06/08/20 09:55 DL 06/08/20 09:46 Wound Center Nurse 1 [Ulcer Assessment] #9 R Lower Side Posterior -Current Size (cm) - Length 1 -Current Size (cm) - Width 2 -Current Size (cm) - Depth 0.3 -Total Square Cm 2 -Photo Taken No -Exudate Amt Medium -Exudate Type Sanguineous -Wound Margin Distinct, Outline Attached -Granulation Amt Large (67-100%) -Granulation Quality Red -Necrosis Amt Small (1-33%) -Necrotic Tissue Type Adherent Slough -Structure Exposed N/A -Texture (Mayra-wound Skin Appearance) Scarring -Moisture (Mayra-wound Skin Appearance No Abnormality ) -Color (Mayra-wound Skin Appearance) No Abnormality -Temperature (Mayra-wound Skin No Abnormality Appearance) (Pt Warm) -Tenderness on Palpation (Mayra-wound No Skin Appearance) -Ulcer Cleansing Wound Cleanser -Foul Odor after Cleansing No -Anesthetic Used 4% Lidocaine Solution,5% Lidocaine Gel #8 Right lower side Anterior -Current Size (cm) - Length 1 -Current Size (cm) - Width 5.6 -Current Size (cm) - Depth 0.3 -Total Square Cm 5.6 -Photo Taken No -Exudate Amt Medium -Exudate Type Serosanguineous -Wound Margin Distinct, Outline Attached -Granulation Amt Large (67-100%) -Granulation Quality Red -Necrosis Amt Small (1-33%) -Necrotic Tissue Type Adherent Slough -Structure Exposed N/A -Texture (Mayra-wound Skin Appearance) Scarring -Moisture (Mayra-wound Skin Appearance Dry/Scaly ) -Color (Mayra-wound Skin Appearance) No Abnormality -Temperature (Mayra-wound Skin No Abnormality Appearance) (Pt Warm) -Tenderness on Palpation (Mayra-wound No Skin Appearance) -Ulcer Cleansing Wound Cleanser -Foul Odor after Cleansing No -Anesthetic Used 4% Lidocaine Solution,5% Lidocaine Gel 6. L lumbar back -Current Size (cm) - Length 3.3 -Current Size (cm) - Width 2.5 -Current Size (cm) - Depth 0.3 -Total Square Cm 8.25 -Photo Taken No -Exudate Amt Medium -Exudate Type Sanguineous -Wound Margin Distinct, Outline Attached -Granulation Amt Large (67-100%) -Granulation Quality Red -Necrosis Amt Small (1-33%) -Necrotic Tissue Type Adherent Slough -Structure Exposed N/A -Texture (Mayra-wound Skin Appearance) Scarring -Moisture (Mayra-wound Skin Appearance No Abnormality ) -Color (Mayra-wound Skin Appearance) No Abnormality -Temperature (Mayra-wound Skin No Abnormality Appearance) (Pt Warm) -Tenderness on Palpation (Mayra-wound No Skin Appearance) -Ulcer Cleansing Wound Cleanser -Foul Odor after Cleansing No -Anesthetic Used 4% Lidocaine Solution WC - Nurse 2 - General Ulcer CM Notes Start: 05/18/20 09:31 Freq: Status: Active Protocol: Activity Type Activity Date Activity User E-Sign Co-Sign Detail Recorded Client Recorded Date Recorded By Document 06/08/20 10:04 [facility] [id number] 06/08/20 10:12 [facility] 06/08/20 10:04 Wound Center Nurse 2 [Procedure/Treatment] #9 R Lower Side Posterior -Time 10:09 -Correct Patient Yes -Correct Side, Site, Position Yes -Correct Procedure Yes -Procedure Performed Yes -Type of Procedure Debridement -Clinical Debridement Subcutaneous -Tissue Removed Subcutaneous -Post Debridement (cm) - Length 1 -Post Debridement (cm) - Width 5.8 -Post Debridement (cm) - Depth 0.2 -Total Square (Post) (cm) 5.8 -Area of Debridement (cm) - Length 1 -Area of Debridement (cm) - Width 5.8 -Total Square (Area) (cm) 5.8 -Tunneling No -Undermining/Tunneling No -Circular Undermining No -Wound/Ulcer Outcome Not Healed -Ulcer Cleansing Rinsed/ Irrigated with Saline -Foul Odor after Cleansing No -Bioengineered Tissue No -Bleeding Controlled with Pressure -Offloading No -Treatment Response Procedure Tolerated Well -Debridement - Subq, 1st 20sq cm Yes #8 Right lower side Anterior -Time 10:10 -Correct Patient Yes -Correct Side, Site, Position Yes -Correct Procedure Yes -Procedure Performed Yes -Type of Procedure Debridement -Clinical Debridement Subcutaneous -Tissue Removed Subcutaneous -Post Debridement (cm) - Length 1.2 -Post Debridement (cm) - Width 2.3 -Post Debridement (cm) - Depth 0.4 -Total Square (Post) (cm) 2.76 -Area of Debridement (cm) - Length 1.2 -Area of Debridement (cm) - Width 2.3 -Total Square (Area) (cm) 2.76 -Tunneling No -Undermining/Tunneling No -Circular Undermining No -Wound/Ulcer Outcome Not Healed -Ulcer Cleansing Rinsed/ Irrigated with Saline -Foul Odor after Cleansing No -Bioengineered Tissue No -Bleeding Controlled with Pressure -Offloading No -Treatment Response Procedure Tolerated Well -Debridement - Subq, 1st 20sq cm No 6. L lumbar back -Time 10:08 -Correct Patient Yes -Correct Side, Site, Position Yes -Correct Procedure Yes -Procedure Performed Yes -Type of Procedure Debridement -Clinical Debridement Subcutaneous -Tissue Removed Subcutaneous -Post Debridement (cm) - Length 3.1 -Post Debridement (cm) - Width 2.5 -Post Debridement (cm) - Depth 0.4 -Total Square (Post) (cm) 7.75 -Area of Debridement (cm) - Length 3.1 -Area of Debridement (cm) - Width 2.5 -Total Square (Area) (cm) 7.75 -Tunneling No -Undermining/Tunneling No -Circular Undermining No -Wound/Ulcer Outcome Not Healed -Ulcer Cleansing Rinsed/ Irrigated with Saline -Foul Odor after Cleansing No -Bioengineered Tissue No -Bleeding Controlled with Pressure -Offloading No -Treatment Response Procedure Tolerated Well -Debridement - Subq, 20sq cm No [See Physician Procedure note for Specifics] WC - Nurse 3 - General Ulcer D/C NN Start: 05/18/20 09:31 Freq: Status: Active Protocol: Activity Type Activity Date Activity User E-Sign Co-Sign Detail Recorded Client Recorded Date Recorded By Document 06/08/20 10:21 MS [id number] 06/08/20 10:23 MS 06/08/20 10:21 Wound Care Nurse 3 [Wound Dressing] #9 R Lower Side Posterior -Ulcer Cleansing Rinsed/ Irrigated with Saline -Foul Odor after Cleansing No -Primary Dressing Applied Aquacel AG 4x4 -Primary Dressing Covered/Secured Dry Gauze, with Secured with Tape -Other Covering abd -Aquacel AG 4x4 1 #8 Right lower side Anterior -Ulcer Cleansing Rinsed/ Irrigated with Saline -Foul Odor after Cleansing No -Primary Dressing Applied Aquacel AG 4x4 -Primary Dressing Covered/Secured Dry Gauze, with Secured with Tape -Other Covering abd -Aquacel AG 4x4 0 6. L lumbar back -Ulcer Cleansing Rinsed/ Irrigated with Saline -Foul Odor after Cleansing No -Primary Dressing Applied Aquacel AG 4x4 -Other Dressing abd -Primary Dressing Covered/Secured Dry Gauze, with Secured with Tape -Aquacel AG 4x4 0 Pain Scale: 0-10 Numeric [Pain] -Is Patient Pain Free? Yes - Visit Discharge [Visit Discharge Information] -Discharge Condition Stable -Ambulatory Status Ambulatory Musculoskeletal: No Tenderness to Palpation of Joints or Extremities Neurological: Cranial nerves II-XII grossly intact Psych/Mental Status: Normal Affect, Appropriate Debridement Note Post-Debridement Measurements/Treatment - Nurse 2 - General Ulcer CM Notes Start: 05/18/20 09:31 Freq: Status: Active Protocol: Activity Type Activity Date Activity User E-Sign Co-Sign Detail Recorded Client Recorded Date Recorded By Document 05/18/20 09:53 [id number] 05/18/20 10:01 Document 05/25/20 09:38 [id number] 05/25/20 09:51 Document 06/01/20 10:12 [id number] 06/01/20 10:22 Document 06/08/20 10:04 [id number] 06/08/20 10:12 05/18/20 05/25/20 06/01/20 09:53 09:38 10:12 Wound Center Nurse 2 #9 R Lower Side Posterior -Time 09:55 09:49 10:12 -Correct Patient Yes Yes Yes -Correct Side, Site, Position Yes Yes Yes -Correct Procedure Yes Yes Yes -Procedure Performed Yes Yes Yes -Type of Procedure Debridement Debridement Debridement -Clinical Debridement Subcutaneous Subcutaneous Subcutaneous -Tissue Removed Subcutaneous Subcutaneous Subcutaneous -Post Debridement (cm) - Length 1.2 1.2 1 -Post Debridement (cm) - Width 3.5 3.6 4 -Post Debridement (cm) - Depth 0.2 0.2 0.3 -Total Square (Post) (cm) 4.20 4.32 4 -Area of Debridement (cm) - Length 1.2 1.2 1 -Area of Debridement (cm) - Width 3.5 3.6 4 -Total Square (Area) (cm) 4.20 4.32 4 -Tunneling No No No -Undermining/Tunneling No No No -Circular Undermining No No No -Wound/Ulcer Outcome Not Healed Not Healed Not Healed -Ulcer Cleansing Rinsed/ Rinsed/ Rinsed/ Irrigated with Irrigated with Irrigated with Saline Saline Saline -Foul Odor after Cleansing No No No -Bioengineered Tissue No No No -Bleeding Controlled with Pressure Pressure Pressure -Offloading No No No -Treatment Response Procedure Procedure Procedure Tolerated Well Tolerated Well Tolerated Well -Debridement - Subq, 1st 20sq cm No No No #8 Right lower side Anterior -Time 09:55 09:50 10:13 -Correct Patient Yes Yes Yes -Correct Side, Site, Position Yes Yes Yes -Correct Procedure Yes Yes Yes -Procedure Performed Yes Yes Yes -Type of Procedure Debridement Debridement Debridement -Clinical Debridement Subcutaneous Subcutaneous Subcutaneous -Tissue Removed Subcutaneous Subcutaneous Subcutaneous -Post Debridement (cm) - Length 0.8 0.9 0.9 -Post Debridement (cm) - Width 2 1.9 2 -Post Debridement (cm) - Depth 0.5 0.3 0.3 -Total Square (Post) (cm) 1.6 1.71 1.8 -Area of Debridement (cm) - Length 0.8 0.9 0.9 -Area of Debridement (cm) - Width 2 1.9 2 -Total Square (Area) (cm) 1.6 1.71 1.8 -Tunneling No No No -Undermining/Tunneling No No No -Circular Undermining No No No -Wound/Ulcer Outcome Not Healed Not Healed Not Healed -Ulcer Cleansing Rinsed/ Rinsed/ Rinsed/ Irrigated with Irrigated with Irrigated with Saline Saline Saline -Foul Odor after Cleansing No No No -Bioengineered Tissue No No No -Bleeding Controlled with Pressure Pressure Pressure -Offloading No No No -Treatment Response Procedure Procedure Procedure Tolerated Well Tolerated Well Tolerated Well -Debridement - Subq, 1st 20sq cm No No No 6. L lumbar back -Time 09:54 09:45 10:13 -Correct Patient Yes Yes Yes -Correct Side, Site, Position Yes Yes Yes -Correct Procedure Yes Yes Yes -Procedure Performed Yes Yes Yes -Type of Procedure Debridement Debridement Debridement -Clinical Debridement Subcutaneous Subcutaneous Subcutaneous -Tissue Removed Subcutaneous Subcutaneous Subcutaneous -Post Debridement (cm) - Length 2.9 3 3 -Post Debridement (cm) - Width 2.6 2.5 2.5 -Post Debridement (cm) - Depth 0.6 0.4 0.5 -Total Square (Post) (cm) 7.54 7.5 7.5 -Area of Debridement (cm) - Length 2.9 3 3 -Area of Debridement (cm) - Width 2.6 2.5 2.5 -Total Square (Area) (cm) 7.54 7.5 7.5 -Tunneling No No No -Undermining/Tunneling No No No -Circular Undermining No No No -Wound/Ulcer Outcome Not Healed Not Healed Not Healed -Ulcer Cleansing Rinsed/ Rinsed/ Rinsed/ Irrigated with Irrigated with Irrigated with Saline Saline Saline -Foul Odor after Cleansing No No No -Bioengineered Tissue No No No -Bleeding Controlled with Pressure Pressure Pressure -Offloading No No No -Treatment Response Procedure Procedure Procedure Tolerated Well Tolerated Well Tolerated Well -Debridement - Subq, 1st 20sq cm Yes Yes Yes Pain Scale: 0-10 Numeric Is Patient Pain Free? Yes Yes Yes 06/08/20 10:04 Wound Center Nurse 2 #9 R Lower Side Posterior -Time 10:09 -Correct Patient Yes -Correct Side, Site, Position Yes -Correct Procedure Yes -Procedure Performed Yes -Type of Procedure Debridement -Clinical Debridement Subcutaneous -Tissue Removed Subcutaneous -Post Debridement (cm) - Length 1 -Post Debridement (cm) - Width 5.8 -Post Debridement (cm) - Depth 0.2 -Total Square (Post) (cm) 5.8 -Area of Debridement (cm) - Length 1 -Area of Debridement (cm) - Width 5.8 -Total Square (Area) (cm) 5.8 -Tunneling No -Undermining/Tunneling No -Circular Undermining No -Wound/Ulcer Outcome Not Healed -Ulcer Cleansing Rinsed/ Irrigated with Saline -Foul Odor after Cleansing No -Bioengineered Tissue No -Bleeding Controlled with Pressure -Offloading No -Treatment Response Procedure Tolerated Well -Debridement - Subq, 1st 20sq cm Yes #8 Right lower side Anterior -Time 10:10 -Correct Patient Yes -Correct Side, Site, Position Yes -Correct Procedure Yes -Procedure Performed Yes -Type of Procedure Debridement -Clinical Debridement Subcutaneous -Tissue Removed Subcutaneous -Post Debridement (cm) - Length 1.2 -Post Debridement (cm) - Width 2.3 -Post Debridement (cm) - Depth 0.4 -Total Square (Post) (cm) 2.76 -Area of Debridement (cm) - Length 1.2 -Area of Debridement (cm) - Width 2.3 -Total Square (Area) (cm) 2.76 -Tunneling No -Undermining/Tunneling No -Circular Undermining No -Wound/Ulcer Outcome Not Healed -Ulcer Cleansing Rinsed/ Irrigated with Saline -Foul Odor after Cleansing No -Bioengineered Tissue No -Bleeding Controlled with Pressure -Offloading No -Treatment Response Procedure Tolerated Well -Debridement - Subq, 1st 20sq cm No 6. L lumbar back -Time 10:08 -Correct Patient Yes -Correct Side, Site, Position Yes -Correct Procedure Yes -Procedure Performed Yes -Type of Procedure Debridement -Clinical Debridement Subcutaneous -Tissue Removed Subcutaneous -Post Debridement (cm) - Length 3.1 -Post Debridement (cm) - Width 2.5 -Post Debridement (cm) - Depth 0.4 -Total Square (Post) (cm) 7.75 -Area of Debridement (cm) - Length 3.1 -Area of Debridement (cm) - Width 2.5 -Total Square (Area) (cm) 7.75 -Tunneling No -Undermining/Tunneling No -Circular Undermining No -Wound/Ulcer Outcome Not Healed -Ulcer Cleansing Rinsed/ Irrigated with Saline -Foul Odor after Cleansing No -Bioengineered Tissue No -Bleeding Controlled with Pressure -Offloading No -Treatment Response Procedure Tolerated Well -Debridement - Subq, 1st 20sq cm No Pain Scale: 0-10 Numeric Is Patient Pain Free? WC - Nurse 3 - General Ulcer D/C NN Start: 05/18/20 09:31 Freq: Status: Active Protocol: Activity Type Activity Date Activity User E-Sign Co-Sign Detail Recorded Client Recorded Date Recorded By Document 05/18/20 10:14 DL [id number] 05/18/20 10:15 DL Document 05/25/20 09:59 KR [id number] 05/25/20 10:01 KR Document 06/01/20 10:26 DL [id number] 06/01/20 10:31 DL Document 06/08/20 10:21 MS [id number] 06/08/20 10:23 MS 05/18/20 05/25/20 06/01/20 10:14 09:59 10:26 Wound Care Nurse 3 #9 R Lower Side Posterior -Ulcer Cleansing Rinsed/ Rinsed/ Rinsed/ Irrigated with Irrigated with Irrigated with Saline Saline Saline -Foul Odor after Cleansing No No No -Primary Dressing Applied Aquacel AG 4x4, Aquacel AG 4x4 NonAdherent Contact Layer -Other Dressing promogran -Primary Dressing Covered/Secured with Dry Gauze, Secured with Dry Gauze, Secured with Tape,Other Secured with Tape Tape -Other Covering abd -Aquacel AG 4x4 1 1 #8 Right lower side Anterior -Ulcer Cleansing Rinsed/ Rinsed/ Rinsed/ Irrigated with Irrigated with Irrigated with Saline Saline Saline -Foul Odor after Cleansing No No No -Primary Dressing Applied Aquacel AG 4x4 -Other Dressing promogran aquacel ag -Primary Dressing Covered/Secured with Dry Gauze, Secured with Dry Gauze, Secured with Tape,Other Secured with Tape Tape -Other Covering abd -Aquacel AG 4x4 0 6. L lumbar back -Ulcer Cleansing Rinsed/ Rinsed/ Rinsed/ Irrigated with Irrigated with Irrigated with Saline Saline Saline -Foul Odor after Cleansing No No No -Primary Dressing Applied Aquacel AG 4x4, NonAdherent Contact Layer -Other Dressing promogran aquacel ag -Primary Dressing Covered/Secured with Dry Gauze, Secured with Dry Gauze, Secured with Tape,Other Secured with Tape Tape -Other Covering abd -Aquacel AG 4x4 0 Treatment Response Procedure Procedure Procedure Tolerated Well Tolerated Well Tolerated Well Pain Scale: 0-10 Numeric Is Patient Pain Free? Yes Yes Yes WC - Visit Discharge Discharge Condition Stable Stable Stable Ambulatory Status Ambulatory Ambulatory Ambulatory Transportation Private Auto Private Auto Private Auto 06/08/20 10:21 Wound Care Nurse 3 #9 R Lower Side Posterior -Ulcer Cleansing Rinsed/ Irrigated with Saline -Foul Odor after Cleansing No -Primary Dressing Applied Aquacel AG 4x4 -Other Dressing -Primary Dressing Covered/Secured with Dry Gauze, Secured with Tape -Other Covering abd -Aquacel AG 4x4 1 #8 Right lower side Anterior -Ulcer Cleansing Rinsed/ Irrigated with Saline -Foul Odor after Cleansing No -Primary Dressing Applied Aquacel AG 4x4 -Other Dressing -Primary Dressing Covered/Secured with Dry Gauze, Secured with Tape -Other Covering abd -Aquacel AG 4x4 0 6. L lumbar back -Ulcer Cleansing Rinsed/ Irrigated with Saline -Foul Odor after Cleansing No -Primary Dressing Applied Aquacel AG 4x4 -Other Dressing abd -Primary Dressing Covered/Secured with Dry Gauze, Secured with Tape -Other Covering -Aquacel AG 4x4 0 Treatment Response Pain Scale: 0-10 Numeric Is Patient Pain Free? Yes WC - Visit Discharge Discharge Condition Stable Ambulatory Status Ambulatory Transportation Wound debrided: Lateral, middle back ulcer Laterality: Left Type of Debridement: Excisional debridement Anesthesia Used: 5% Lidocaine Gel Depth: Down to and including healthy tissue, in the subcutaneous layer Percentage of wound debrided: 100 Instrument Used: 5mm curette Tissue Removed: Subcutaneous tissue and slough Severity: Fat Layer Exposed Amount of bleeding with debridement: Mild Bleeding Controlled with: Pressure, Compression and gauze Patient tolerated procedure well - Additional Wound Wound debrided: Flank cluster ulcer Laterality: Right Type of Debridement: Excisional debridement Anesthesia Used: 5% Lidocaine Gel Depth: Down to and including healthy tissue, in the subcutaneous layer Percentage of wound debrided: 100 Instrument Used: 3mm curette Tissue Removed: Subcutaneous tissue and slough Severity: Fat Layer Exposed Amount of bleeding with debridement: Mild Bleeding Controlled with: Pressure, Compression and gauze Patient tolerated procedure: Patient tolerated procedure well Assessment/Plan Active Problems (Last Reviewed 03/18/20 @ 16:[address] 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 Nonhealing diabetic ulcer left lateral middle back. 2. Nonhealing diabetic ulcers right flank, s/p surgical closure 01/17/2020. 3. Diabetes mellitus. Plan: Continue moistened Silver covered by adaptic dressing changes daily. Wear compression over right flank with abdominal binder. Use chlorhexidine wash twice weekly. 10 applications of Epifix to the left middle lateral back ulcer have been completed. Right middle lateral back ulcer remains healed. He spoke with junior paralegal and he is referring him to another person. He is seeing a [employer] Officer chiropracter/junior paralegal next month. We'll refer him to Dr. Jerez, our medical management trainer at the wound center for further evaluation to make sure there isn't anything further we should be doing to care for his ulcers. He finished Clindamycin for a culture done on 03/23/20 that showed MRSE. Wound culture from 05/04/20 in the right flank was negative for bacterial growth. Wpound culture from the left lateral middle back was positive for MRSE and Corynebacterium amycolatum. He was started on Linezolid because of the resistant Staph and will continue them. Discussed with the patient about IV antibiotics through a PICC line. He will think about IV antibiotics and wants to wait until after his Director Of Quality Control vist before deciding. Prealbumin from 07/22/19 was 18.7. Encourage nutritonal supplementation with protein to help the healing process. His HgbA1c from 07/22/19 was 5.9. Followup one week. [id number]: [id number] Pooja subq tissue 20 sq cm/<
== END 2020-06-14 23:59 ==
LOC: WC 09:30
PROVIDERS: Family Provider Family Medicine; PCP Family Medicine; Referring Provider Nurse Practitioner Family; Visit Provider Nurse Practitioner Family
DX: E11.622 Type 2 diabetes mellitus with other skin ulcer (principal); L98.422 Non-pressure chronic ulcer of back with fat layer exposed; L98.492 Non-pressure chronic ulcer of skin of other sites with fat layer exposed
CPT/HCPCS: 11042

== ENCOUNTER → 2020-07-01 09:13 | Outpatient (CLI) | payer OTHER, SELFPAY ==
[2020-07-01 08:36] VITALS: BMI 29.2
[2020-07-01 12:36] LABS: Absolute Lymphocyte Count 0.93 X10^3/uL (0.83-4.51); Absolute Neutrophil Count 3.4 X10^3/uL (2.0-7.7); Basophil# 0.03 X10^3/uL; Basophil% 0.6 % (0-1); Eosinophil# 0.09 X10^3/uL; Eosinophils% 1.8 % (0-5); Hematocrit 40.4 % (40-54); Hemoglobin 12.5 g/dL (13.0-16.5); Lymphocyte # 0.93 X10^3/ul (4.0); Lymphocyte % 18.8 % (19-41); Mean Corp Hgb Conc 30.9 g/dL (32-36); Mean Corpuscular Hgb 28.8 pg (27.0-32.0); Mean Corpuscular Volume 93.1 fL (80-94); Mean Platelet Vol. 9.4 fl (6.2-12.0); Monocyte# 0.51 X10^3/uL; Monocyte% 10.3 % (0-10); NRBC Flagged by Analyzer 0 % (0-5); Neutrophil # 3.39 X10^3/uL (2.7-7.7); Neutrophil % 68.3 % (47-70); Platelet Count 247 K/mm3 (150-450); RBC Distribution Width CV 14.7 % (11.6-14.6); RBC Distribution Width SD 50.4 fl (35.1-43.9); Red Blood Count 4.34 M/mm3 (4.6-6.2)
[2020-07-01 12:49] LABS: Anion Gap 4 (5-15); BUN 19 mg/dL (7-18); BUN/Creat Ratio 17.9 RATIO (10-20); Calcium,Total 9.2 mg/dL (8.5-10.1); Chloride 105 mmol/L (98-107); Creatinine, Serum 1.06 mg/dL (0.70-1.30); EST Glomerular Filtration Rate 76 mL/min (>60); Est Glom Filt Rate - Afr Amer 91 mL/min (>60); Glucose 102 mg/dL (74-106); Potassium 4.4 mmol/L (3.5-5.1); Sodium Level 140 mmol/L (136-145)
[2020-07-01 13:01] LABS: Hemoglobin A1c 5.8 % (3.8-5.6)
== END ==
PROVIDERS: PCP Family Medicine; Referring Provider Family Medicine; Visit Provider Family Medicine
DX: I10 Essential (primary) hypertension (principal); T81.89XA Other complications of procedures, not elsewhere classified, initial encounter
CPT/HCPCS: 36415; 80048; 83036; 85025

== ENCOUNTER 2020-07-06 09:15 | Outpatient (RCR) | payer OTHER, SELFPAY ==
[2020-06-15 00:17] VITALS: BP 104/67; PULSE 80; RESP 18; TEMP 36.6; O2SAT 16
[2020-06-16 09:20] VITALS: BP 116/66; PULSE 73; RESP 16; TEMP 35.7; BMI 27.8
--- NOTE | 2020-06-16 13:54 | PCM.WC.HP ---
(1) Skin ulcer of multiple sites of trunk with fat layer exposed Status: Chronic Code(s): L98.492 - Non-pressure chronic ulcer of skin of other sites with fat layer exposed (2) RTS (radial tunnel syndrome) Status: Resolved Code(s): G56.30 - Lesion of radial nerve, unspecified upper limb (3) Chronic renal insufficiency, stage I Status: Chronic Code(s): N18.1 - Chronic kidney disease, stage 1 (4) Dehiscence of external surgical wound Status: Chronic Qualifiers: Encounter type: subsequent encounter Qualified Code(s): T81.31XD - Disruption of external operation (surgical) wound, not elsewhere classified, subsequent encounter Code(s): T81.31XA - Disruption of external operation (surgical) wound, not elsewhere classified, initial encounter (5) Hypertension Status: Chronic Code(s): I10 - Essential (primary) hypertension (6) Non-pressure chronic ulcer of skin of other sites with fat layer exposed Status: Chronic Code(s): L98.492 - Non-pressure chronic ulcer of skin of other sites with fat layer exposed Comment: Nonhealing ulcers right lateral middle back and left lateral middle back (7) Nonhealing surgical wound Status: Chronic Qualifiers: Code(s): T81.89XA - Other complications of procedures, not elsewhere classified, initial encounter Comment: right lateral middle back and left lateral middle back after excision of nonhealing diabetic ulcers with skin flap reconstruction (8) LEYDI (obstructive sleep apnea) Status: Chronic Code(s): G47.33 - Obstructive sleep apnea (adult) (pediatric) (9) Type 2 diabetes mellitus Status: Chronic Qualifiers: Code(s): E11.9 - Type 2 diabetes mellitus without complications (10) 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 His medical records have been reviewed in detail. He has been cared for at the [facility] for over 2 years. He has multiple wounds, which have failed to heal. In some cases, his wounds have become worse. They began as sebaceous cysts, which were surgically excised by his primary care physician in the office setting. Proper healing never occurred. Several surgical procedures have been performed, including a skin grafting procedure. A variety of treatment measures have been instituted all of which have been unsuccessful. These measures have included local wound care, skin substitutes, negative pressure wound therapy, hyperbaric oxygen therapy, serial debridements, antibiotic administration and response to positive culture results, etc. Wound biopsies have been performed, all of which have been negative for malignancy. A multidisciplinary approach has been implemented, and has included evaluation by the Plastic Surgery service and evaluation by specialist to evaluate possible autoimmune causes. Current management includes the use of Aquacel silver. The patient is currently taking linezolid for recent cultures positive for MRSE and corynebacterium species. Patient's medication list has been reviewed, and none of his current medications suggest wound healing inhibition. Patient is currently in the midst of evaluation by an arcgis developer as relates to his chronic, nonhealing wounds. The following portion of the patient's history is pre-existing and is as follows: Surgery 01/17/2020?surgical preparation right flank with excisional debridement of nonhealing painful infected diabetic ulcer of the right flank with 7 cm complex secondary wound closure. Operative culture - negative. He was discharged on Doxycycline and has finished them. Wound care - he has completed 10 applications of Epifix to the left lateral middle back ulcer. Silver dressing changes. Using chlorhexidine twice weekly. Prealbumin from 07/22/19 was 18.7. Encourage nutritonal supplementation with protein to help the healing process. His HgbA1c from 07/22/19 was 5.9. Right flank ulcer was surgically closed 01/17/20 and has developed some painful ulcerations. Wound culture from the left lateral middle back on 02/03/2020 was negative for aerobic and anaerobic growth. There was a repeat culture on 03/23/20 which showed MRSE. He was placed on Clindamycin and has completed them. Wound cultures from 05/04/20 from the right flank was negative for bacterial growth. The left back was positive MRSE and Corynebacterium amycolatum. He was started on Linzolid for the time being and the patient will think about his options and discuss them with his . Past Medical History Past Medical History: Chronic Problems (Last Reviewed 03/18/20 @ 16:[address] Ryan Gandhi, ) Skin ulcer of multiple sites of trunk with fat layer exposed (Chronic) Chronic renal insufficiency, stage I (Chronic) Dehiscence of external surgical wound (Chronic) Unspecified complication of skin graft (allograft) (autograft) (Chronic) LEYDI (obstructive sleep apnea) (Chronic) Diabetes (Chronic) Hearing problem (Chronic) 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 Trigger finger, left ring finger (Chronic) Hypertension (Chronic) Neuroma (Chronic) Past Medical History: The patient denies a history of cerebrovascular accident, myocardial infarction, cancer, and pulmonary disease. Surgical History: - - Patient is undergone right radial tunnel syndrome surgery, umbilical hernia repair, and 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 Allergies/Adverse Reactions: Allergies No Known Allergies Allergy (Verified 03/18/20 16:33) Home Medications: Ambulatory Orders Medication Instructions Recorded diclofenac sodium 1 % topical gel 2 g TOPICAL DAILY PRN PRN 04/25/19 Lactobacillus acidophilus 500 1 tab PO BID #60 tab 10/08/19 million cell-fructooligosac 50 mg tablet albuterol sulfate 90 mcg/actuation 2 puff INHALATION Q6H PRN #8.5 g 12/03/19 aerosol inhaler Lisinopril 5 mg PO DAILY 01/09/20 Kenalog 40 mg/mL suspension for 20 mg INTRAARTIC ONCE #0.5 ml NS 03/18/20 injection ascorbate calcium (vitamin C) 500 500 mg PO DAILY 04/30/20 mg tablet cholecalciferol (vitamin D3) 25 25 mcg PO DAILY 04/30/20 mcg (1,000 unit) capsule gabapentin 300 mg capsule 300 mg PO TID 30 Days #90 cap 05/06/20 linezolid 600 mg tablet 600 mg PO Q12H 21 Days #42 tab 06/01/20 - Family History Paternal Family History: Family History (Last Reviewed 03/18/20 @ 16:[address] 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 Lives: Spouse/ Significant Other Smoking Status: Never smoker Tobacco Use: Non-smoker Alcohol: None Drugs: None Review of Systems Constitutional: Denies: Chills, Fever, Weight Change Eyes: Denies: Pain, Vision Change HEENT: Denies: Difficulty Hearing, Difficulty Swallowing, Sinus Congestion Cardiovascular: Denies: Chest Pain, Palpitations Respiratory: Denies: Cough, Shortness of Breath Gastrointestinal: Denies: Diarrhea, Nausea, Vomiting Genitourinary: Denies: Dysuria, Hematuria Endocrine: Denies: Heat/ Cold Intolerance, Polydipsia, Polyuria Hematologic/ Lymphatic: Denies: Easy Bruising, Easy Bleeding - Physical Exam Vital Signs Temp Pulse Resp BP Pulse Ox 96.3 F L 73 16 116/66 16 06/16/20 09:20 06/16/20 09:20 06/16/20 09:20 06/16/20 09:20 06/15/20 00:17 General: Alert, Oriented x3, Cooperative, No apparent distress, Well developed, Well nourished, - - The patient is very pleasant and interactive. HEENT: Atraumatic, PERRLA, EOMI, Normocephalic Oral: Moist Mucosa Neck: No JVD Lungs: Normal air movement Abdomen: Non-Distended Extremities: No clubbing, No cyanosis, No edema, No Calf Tenderness Addt'l Wound Findings: Patient has multiple open wounds on his back and flanks. There is an open wound on the mid back. There is a healed wound on the right posterior thorax. A donor site from prior skin grafting is noted on the left flank, which is healed. There is an open wound on the right flank. Dimensions of the open wounds are noted elsewhere. There is bioburden and a small amount of nonviable tissue. There is no obvious sign of infection or cellulitis. Skin: No rashes Wound Measurements and Assessment WC - Nurse 1 - General Ulcer Measurement Start: 06/16/20 09:20 Freq: Status: Active Protocol: Activity Type Activity Date Activity User E-Sign Co-Sign Detail Recorded Client Recorded Date Recorded By Document 06/16/20 09:20 MW [id number] 06/16/20 09:26 MW 06/16/20 09:20 Wound Center Nurse 1 [Ulcer Assessment] #9 R Lower Side Posterior -Combined with other wound No -Current Size (cm) - Length 1.9 -Current Size (cm) - Width 5.9 -Current Size (cm) - Depth 0.2 -Total Square Cm 11.21 -Photo Taken No -Epithelialization None Present -Tunneling No -Undermining/Tunneling No -Circular Undermining No -Exudate Amt Medium -Exudate Type Serosanguineous -Wound Margin Flat & Intact -Granulation Amt Large (67-100%) -Granulation Quality Red -Slough/Fibrin Yes -Necrosis Amt Small (1-33%) -Necrotic Tissue Type Adherent Slough -Structure Exposed N/A -Texture (Mayra-wound Skin Appearance) Assessed, Scarring -Moisture (Mayra-wound Skin Appearance No Abnormality, ) Assessed -Color (Mayra-wound Skin Appearance) No Abnormality, Assessed -Temperature (Mayra-wound Skin No Abnormality Appearance) (Pt Warm) -Tenderness on Palpation (Mayra-wound Yes Skin Appearance) -Ulcer Cleansing Rinsed/ Irrigated with Saline -Foul Odor after Cleansing No -Anesthetic Used 5% Lidocaine Gel #8 Right lower side Anterior -Combined with other wound No -Current Size (cm) - Length 1.0 -Current Size (cm) - Width 2.3 -Current Size (cm) - Depth 0.3 -Total Square Cm 2.30 -Epithelialization None Present -Tunneling No -Undermining/Tunneling No -Circular Undermining No -Exudate Amt Medium -Exudate Type Serosanguineous -Wound Margin Flat & Intact -Granulation Amt Large (67-100%) -Granulation Quality Red -Slough/Fibrin Yes -Necrosis Amt Small (1-33%) -Necrotic Tissue Type Adherent Slough -Structure Exposed N/A -Texture (Mayra-wound Skin Appearance) Assessed, Scarring -Moisture (Mayra-wound Skin Appearance No Abnormality, ) Assessed -Color (Mayra-wound Skin Appearance) No Abnormality, Assessed -Temperature (Mayra-wound Skin No Abnormality Appearance) (Pt Warm) -Tenderness on Palpation (Mayra-wound Yes Skin Appearance) -Ulcer Cleansing Rinsed/ Irrigated with Saline -Foul Odor after Cleansing No -Anesthetic Used 5% Lidocaine Gel 6. L lumbar back -Combined with other wound No -Current Size (cm) - Length 3.2 -Current Size (cm) - Width 2.9 -Current Size (cm) - Depth 0.1 -Total Square Cm 9.28 -Photo Taken No -Epithelialization None Present -Tunneling No -Undermining/Tunneling No -Circular Undermining No -Exudate Amt Medium -Exudate Type Serosanguineous -Wound Margin Flat & Intact -Granulation Amt Large (67-100%) -Granulation Quality Red -Slough/Fibrin Yes -Necrosis Amt Small (1-33%) -Necrotic Tissue Type Adherent Slough -Structure Exposed N/A -Texture (Mayra-wound Skin Appearance) Assessed, Scarring -Moisture (Mayra-wound Skin Appearance No Abnormality, ) Assessed -Color (Mayra-wound Skin Appearance) No Abnormality, Assessed -Temperature (Mayra-wound Skin No Abnormality Appearance) (Pt Warm) -Tenderness on Palpation (Mayra-wound Yes Skin Appearance) -Ulcer Cleansing Rinsed/ Irrigated with Saline -Foul Odor after Cleansing No -Anesthetic Used 5% Lidocaine Gel WC - Nurse 3 - General Ulcer D/C NN Start: 06/16/20 09:20 Freq: Status: Active Protocol: Activity Type Activity Date Activity User E-Sign Co-Sign Detail Recorded Client Recorded Date Recorded By Document 06/16/20 10:30 MW [id number] 06/16/20 10:31 MW 06/16/20 10:30 Wound Care Nurse 3 [Wound Dressing] #9 R Lower Side Posterior -Ulcer Cleansing Rinsed/ Irrigated with Saline -Foul Odor after Cleansing No -Negative Pressure Wound Therapy N/A -Other Dressing aquacel ag -Primary Dressing Covered/Secured Secured with with Tape -Other Covering abd #8 Right lower side Anterior -Ulcer Cleansing Rinsed/ Irrigated with Saline -Foul Odor after Cleansing No -Negative Pressure Wound Therapy N/A -Other Dressing aquacel ag -Primary Dressing Covered/Secured Secured with with Tape -Other Covering abd 6. L lumbar back -Ulcer Cleansing Rinsed/ Irrigated with Saline -Foul Odor after Cleansing No -Negative Pressure Wound Therapy N/A -Other Dressing aquacel ag -Primary Dressing Covered/Secured Secured with with Tape -Other Covering abd [Post Procedure Tolerated] -Treatment Response Procedure Tolerated Well Pain Scale: 0-10 Numeric [Pain] -Is Patient Pain Free? Yes Teaching: Wound Center [Wound Center Education] (Items with an * have Printed Materials Available- Please identify what is given to patient under the Teaching materials given to patient and caregiver Section. Dressing Your Wound -Person Taught Patient -Teaching Method Discussion, Demonstration -Response to teaching Verbalize understanding WC - Visit Discharge [Visit Discharge Information] -Discharge Condition Stable -Ambulatory Status Ambulatory -Transportation Private Auto -Accompanied by self -Medication Reconcilliation completed No & provided to patient/care provider -Clinical Summary of Care Provided Yes Musculoskeletal: No Muscle Wasting Neurological: Cranial nerves II-XII grossly intact, Neuro grossly intact Psych/Mental Status: Normal Affect, Appropriate, Alert and oriented to time, place, person, mood and affect Debridement Note Post-Debridement Measurements/Treatment WC - Nurse 3 - General Ulcer D/C NN Start: 06/16/20 09:20 Freq: Status: Active Protocol: Activity Type Activity Date Activity User E-Sign Co-Sign Detail Recorded Client Recorded Date Recorded By Document 06/16/20 10:30 MW [id number] 06/16/20 10:31 MW 06/16/20 10:30 Wound Care Nurse 3 #9 R Lower Side Posterior -Ulcer Cleansing Rinsed/ Irrigated with Saline -Foul Odor after Cleansing No -Negative Pressure Wound Therapy N/A -Other Dressing aquacel ag -Primary Dressing Covered/Secured with Secured with Tape -Other Covering abd #8 Right lower side Anterior -Ulcer Cleansing Rinsed/ Irrigated with Saline -Foul Odor after Cleansing No -Negative Pressure Wound Therapy N/A -Other Dressing aquacel ag -Primary Dressing Covered/Secured with Secured with Tape -Other Covering abd 6. L lumbar back -Ulcer Cleansing Rinsed/ Irrigated with Saline -Foul Odor after Cleansing No -Negative Pressure Wound Therapy N/A -Other Dressing aquacel ag -Primary Dressing Covered/Secured with Secured with Tape -Other Covering abd Treatment Response Procedure Tolerated Well Pain Scale: 0-10 Numeric Is Patient Pain Free? Yes Teaching: Wound Center Dressing Your Wound -Person Taught Patient -Teaching Method Discussion, Demonstration -Response to teaching Verbalize understanding WC - Visit Discharge Discharge Condition Stable Ambulatory Status Ambulatory Transportation Private Auto Accompanied by self Medication Reconcilliation completed & No provided to patient/care provider Clinical Summary of Care Provided Yes No debridement was completed today Assessment/Plan Assessment: This is a 59-year-old male with an open wound/ulceration on his mid back and on the right flank. Despite numerous conservative treatment measures and interventions, these wounds have failed to heal. In addition, surgical measures, and skin grafting, including the use of skin graft substitutes, all have been unsuccessful in achieving healing. In many instances, the wounds have increased in size. Biopsies have been negative for malignancy. Cultures, wound positive, have been used to direct antibiotic therapy. Local wound care measures, topical products, negative pressure wound therapy, serial debridements, etc., have all been unsuccessful in achieving healing. It does not appear as though the patient is taking any medications that would account for his chronic nonhealing wounds. Plan: It appears as though a variety of treatment measures have been implemented, all of which have been unsuccessful. The patient has been cared for at the [facility] for over 2 years, without achieving healing of the patient's wounds. At this juncture, consultation was requested for further ideas as to possible management options. An alternative to the measures which have been previously implemented might be to consider that the patient's wounds may be the result of pyoderma gangrenosum, or a similar entity. Such as diagnosis is one by exclusion. Today, no specific diagnostic test has definitively identified the etiology of the patient's wounds. Virtually all treatments thus far have been unsuccessful in achieving wound healing. It is generally considered that entities such as pyoderma gangrenosum do not respond to mechanical debridements, and in some cases may be exacerbated. Therefore, it may be reasonable to consider proceeding by an alternative pathway, discontinuing serial debridements and aggressive local wound care measures, and treating the patient more systemically by means of immunosuppressive therapy. This could take the form of topical steroids, tacrolimus ointment, etc. alternatively, systemic steroids, cyclosporine, azathioprine, methotrexate, dapsone, or other immunosuppressive medications may be considered. I have discussed this approach as an alternative with the patient. He appears to be open minded to this approach as an alternative to the unsuccessful methods employed previously. All there is no assurance, and some risk involved, this alternative approach may prove to be of benefit. Thus far, the traditional treatment approaches have not been successful, and an alternative course could be of benefit. This approach has been briefly discussed with Yamileth Reeves NP, the patient's regular provider. Will defer management in this regard to her in regard to specific measures. While some risk may be assumed with regard to immunosuppression treatment, there is little to be lost in terms of the wound status, given that little has been achieved in this regard for quite some time. The patient is not a smoker. Influenza vaccine was not administered today. The patient weighs 210 pounds. He stands 6 feet 0 inches tall. His BMI is 28.5. Total time: 50 minutes.
--- NOTE | 2020-06-16 20:34 | HP.PCM_ITS ---
(1) Skin ulcer of multiple sites of trunk with fat layer exposed Status: Chronic Code(s): L98.492 - Non-pressure chronic ulcer of skin of other sites with fat layer exposed (2) RTS (radial tunnel syndrome) Status: Resolved Code(s): G56.30 - Lesion of radial nerve, unspecified upper limb (3) Chronic renal insufficiency, stage I Status: Chronic Code(s): N18.1 - Chronic kidney disease, stage 1 (4) Dehiscence of external surgical wound Status: Chronic Qualifiers: Encounter type: subsequent encounter Qualified Code(s): T81.31XD - Disruption of external operation (surgical) wound, not elsewhere classified, subsequent encounter Code(s): T81.31XA - Disruption of external operation (surgical) wound, not elsewhere classified, initial encounter (5) Hypertension Status: Chronic Code(s): I10 - Essential (primary) hypertension (6) Non-pressure chronic ulcer of skin of other sites with fat layer exposed Status: Chronic Code(s): L98.492 - Non-pressure chronic ulcer of skin of other sites with fat layer exposed Comment: Nonhealing ulcers right lateral middle back and left lateral middle back (7) Nonhealing surgical wound Status: Chronic Qualifiers: Code(s): T81.89XA - Other complications of procedures, not elsewhere classified, initial encounter Comment: right lateral middle back and left lateral middle back after excision of nonhealing diabetic ulcers with skin flap reconstruction (8) LEYDI (obstructive sleep apnea) Status: Chronic Code(s): G47.33 - Obstructive sleep apnea (adult) (pediatric) (9) Type 2 diabetes mellitus Status: Chronic Qualifiers: Code(s): E11.9 - Type 2 diabetes mellitus without complications (10) 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 His medical records have been reviewed in detail. He has been cared for at the [facility] for over 2 years. He has multiple wounds, which have failed to heal. In some cases, his wounds have become worse. They began as sebaceous cysts, which were surgically excised by his primary care physician in the office setting. Proper healing never occurred. Several surgical procedures have been performed, including a skin grafting procedure. A variety of treatment measures have been instituted all of which have been unsuccessful. These measures have included local wound care, skin substitutes, negative pressure wound therapy, hyperbaric oxygen therapy, serial debridements, antibiotic administration and response to positive culture results, etc. Wound biopsies have been performed, all of which have been negative for malignancy. A multidisciplinary approach has been implemented, and has included evaluation by the Plastic Surgery service and evaluation by specialist to evaluate possible autoimmune causes. Current management includes the use of Aquacel silver. The patient is currently taking linezolid for recent cultures positive for MRSE and corynebacterium species. Patient's medication list has been reviewed, and none of his current medications suggest wound healing inhibition. Patient is currently in the midst of evaluation by an registered art therapist as relates to his chronic, nonhealing wounds. The following portion of the patient's history is pre-existing and is as follows: Surgery 01/17/2020?surgical preparation right flank with excisional debridement of nonhealing painful infected diabetic ulcer of the right flank with 7 cm complex secondary wound closure. Operative culture - negative. He was discharged on Doxycycline and has finished them. Wound care - he has completed 10 applications of Epifix to the left lateral middle back ulcer. Silver dressing changes. Using chlorhexidine twice weekly. Prealbumin from 07/22/19 was 18.7. Encourage nutritonal supplementation with protein to help the healing process. His HgbA1c from 07/22/19 was 5.9. Right flank ulcer was surgically closed 01/17/20 and has developed some painful ulcerations. Wound culture from the left lateral middle back on 02/03/2020 was negative for aerobic and anaerobic growth. There was a repeat culture on 03/23/20 which showed MRSE. He was placed on Clindamycin and has completed them. Wound cultures from 05/04/20 from the right flank was negative for bacterial growth. The left back was positive MRSE and Corynebacterium amycolatum. He was started on Linzolid for the time being and the patient will think about his options and discuss them with his . Past Medical History Past Medical History: Chronic Problems (Last Reviewed 03/18/20 @ 16:[address] Ryan Gandhi DO) Skin ulcer of multiple sites of trunk with fat layer exposed (Chronic) Chronic renal insufficiency, stage I (Chronic) Dehiscence of external surgical wound (Chronic) Unspecified complication of skin graft (allograft) (autograft) (Chronic) LEYDI (obstructive sleep apnea) (Chronic) Diabetes (Chronic) Hearing problem (Chronic) 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 Trigger finger, left ring finger (Chronic) Hypertension (Chronic) Neuroma (Chronic) Surgical History: - - Patient is undergone right radial tunnel syndrome surgery, umbilical hernia repair, and 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 Allergies/Adverse Reactions: Allergies No Known Allergies Allergy (Verified 03/18/20 16:33) Home Medications: Ambulatory Orders Medication Instructions Recorded diclofenac sodium 1 % topical gel 2 g TOPICAL DAILY PRN PRN 04/25/19 Lactobacillus acidophilus 500 1 tab PO BID #60 tab 10/08/19 million cell-fructooligosac 50 mg tablet albuterol sulfate 90 mcg/actuation 2 puff INHALATION Q6H PRN #8.5 g 12/03/19 aerosol inhaler Lisinopril 5 mg PO DAILY 01/09/20 Kenalog 40 mg/mL suspension for 20 mg INTRAARTIC ONCE #0.5 ml NS 03/18/20 injection ascorbate calcium (vitamin C) 500 500 mg PO DAILY 04/30/20 mg tablet cholecalciferol (vitamin D3) 25 25 mcg PO DAILY 04/30/20 mcg (1,000 unit) capsule gabapentin 300 mg capsule 300 mg PO TID 30 Days #90 cap 05/06/20 linezolid 600 mg tablet 600 mg PO Q12H 21 Days #42 tab 06/01/20 - Family History Paternal Family History: Family History (Last Reviewed 03/18/20 @ 16:[address] Ryan Gandhi DO) Grandfather Cancer Father Prostate cancer Grandfather CVA (cerebral vascular accident) Cancer, - Lives: Spouse/ Significant Other Smoking Status: Never smoker Tobacco Use: Non-smoker Alcohol: None Drugs: None - Physical Exam Vital Signs Temp Pulse Resp BP Pulse Ox 96.3 F L 73 16 116/66 16 06/16/20 09:20 06/16/20 09:20 06/16/20 09:20 06/16/20 09:20 06/15/20 00:17 Wound Measurements and Assessment WC - Nurse 1 - General Ulcer Measurement Start: 06/16/20 09:20 Freq: Status: Active Protocol: Activity Type Activity Date Activity User E-Sign Co-Sign Detail Recorded Client Recorded Date Recorded By Document 06/16/20 09:20 MW [id number] 06/16/20 09:26 MW 06/16/20 09:20 Wound Center Nurse 1 [Ulcer Assessment] #9 R Lower Side Posterior -Combined with other wound No -Current Size (cm) - Length 1.9 -Current Size (cm) - Width 5.9 -Current Size (cm) - Depth 0.2 -Total Square Cm 11.21 -Photo Taken No -Epithelialization None Present -Tunneling No -Undermining/Tunneling No -Circular Undermining No -Exudate Amt Medium -Exudate Type Serosanguineous -Wound Margin Flat & Intact -Granulation Amt Large (67-100%) -Granulation Quality Red -Slough/Fibrin Yes -Necrosis Amt Small (1-33%) -Necrotic Tissue Type Adherent Slough -Structure Exposed N/A -Texture (Mayra-wound Skin Appearance) Assessed, Scarring -Moisture (Mayra-wound Skin Appearance No Abnormality, ) Assessed -Color (Mayra-wound Skin Appearance) No Abnormality, Assessed -Temperature (Mayra-wound Skin No Abnormality Appearance) (Pt Warm) -Tenderness on Palpation (Mayra-wound Yes Skin Appearance) -Ulcer Cleansing Rinsed/ Irrigated with Saline -Foul Odor after Cleansing No -Anesthetic Used 5% Lidocaine Gel #8 Right lower side Anterior -Combined with other wound No -Current Size (cm) - Length 1.0 -Current Size (cm) - Width 2.3 -Current Size (cm) - Depth 0.3 -Total Square Cm 2.30 -Epithelialization None Present -Tunneling No -Undermining/Tunneling No -Circular Undermining No -Exudate Amt Medium -Exudate Type Serosanguineous -Wound Margin Flat & Intact -Granulation Amt Large (67-100%) -Granulation Quality Red -Slough/Fibrin Yes -Necrosis Amt Small (1-33%) -Necrotic Tissue Type Adherent Slough -Structure Exposed N/A -Texture (Mayra-wound Skin Appearance) Assessed, Scarring -Moisture (Mayra-wound Skin Appearance No Abnormality, ) Assessed -Color (Mayra-wound Skin Appearance) No Abnormality, Assessed -Temperature (Mayra-wound Skin No Abnormality Appearance) (Pt Warm) -Tenderness on Palpation (Mayra-wound Yes Skin Appearance) -Ulcer Cleansing Rinsed/ Irrigated with Saline -Foul Odor after Cleansing No -Anesthetic Used 5% Lidocaine Gel 6. L lumbar back -Combined with other wound No -Current Size (cm) - Length 3.2 -Current Size (cm) - Width 2.9 -Current Size (cm) - Depth 0.1 -Total Square Cm 9.28 -Photo Taken No -Epithelialization None Present -Tunneling No -Undermining/Tunneling No -Circular Undermining No -Exudate Amt Medium -Exudate Type Serosanguineous -Wound Margin Flat & Intact -Granulation Amt Large (67-100%) -Granulation Quality Red -Slough/Fibrin Yes -Necrosis Amt Small (1-33%) -Necrotic Tissue Type Adherent Slough -Structure Exposed N/A -Texture (Mayra-wound Skin Appearance) Assessed, Scarring -Moisture (Mayra-wound Skin Appearance No Abnormality, ) Assessed -Color (Mayra-wound Skin Appearance) No Abnormality, Assessed -Temperature (Mayra-wound Skin No Abnormality Appearance) (Pt Warm) -Tenderness on Palpation (Mayra-wound Yes Skin Appearance) -Ulcer Cleansing Rinsed/ Irrigated with Saline -Foul Odor after Cleansing No -Anesthetic Used 5% Lidocaine Gel WC - Nurse 3 - General Ulcer D/C NN Start: 06/16/20 09:20 Freq: Status: Active Protocol: Activity Type Activity Date Activity User E-Sign Co-Sign Detail Recorded Client Recorded Date Recorded By Document 06/16/20 10:30 MW [id number] 06/16/20 10:31 MW 06/16/20 10:30 Wound Care Nurse 3 [Wound Dressing] #9 R Lower Side Posterior -Ulcer Cleansing Rinsed/ Irrigated with Saline -Foul Odor after Cleansing No -Negative Pressure Wound Therapy N/A -Other Dressing aquacel ag -Primary Dressing Covered/Secured Secured with with Tape -Other Covering abd #8 Right lower side Anterior -Ulcer Cleansing Rinsed/ Irrigated with Saline -Foul Odor after Cleansing No -Negative Pressure Wound Therapy N/A -Other Dressing aquacel ag -Primary Dressing Covered/Secured Secured with with Tape -Other Covering abd 6. L lumbar back -Ulcer Cleansing Rinsed/ Irrigated with Saline -Foul Odor after Cleansing No -Negative Pressure Wound Therapy N/A -Other Dressing aquacel ag -Primary Dressing Covered/Secured Secured with with Tape -Other Covering abd [Post Procedure Tolerated] -Treatment Response Procedure Tolerated Well Pain Scale: 0-10 Numeric [Pain] -Is Patient Pain Free? Yes Teaching: Wound Center [Wound Center Education] (Items with an * have Printed Materials Available- Please identify what is given to patient under the Teaching materials given to patient and caregiver Section. Dressing Your Wound -Person Taught Patient -Teaching Method Discussion, Demonstration -Response to teaching Verbalize understanding WC - Visit Discharge [Visit Discharge Information] -Discharge Condition Stable -Ambulatory Status Ambulatory -Transportation Private Auto -Accompanied by self -Medication Reconcilliation completed No & provided to patient/care provider -Clinical Summary of Care Provided Yes Debridement Note Post-Debridement Measurements/Treatment WC - Nurse 3 - General Ulcer D/C NN Start: 06/16/20 09:20 Freq: Status: Active Protocol: Activity Type Activity Date Activity User E-Sign Co-Sign Detail Recorded Client Recorded Date Recorded By Document 06/16/20 10:30 MW [id number] 06/16/20 10:31 MW 06/16/20 10:30 Wound Care Nurse 3 #9 R Lower Side Posterior -Ulcer Cleansing Rinsed/ Irrigated with Saline -Foul Odor after Cleansing No -Negative Pressure Wound Therapy N/A -Other Dressing aquacel ag -Primary Dressing Covered/Secured with Secured with Tape -Other Covering abd #8 Right lower side Anterior -Ulcer Cleansing Rinsed/ Irrigated with Saline -Foul Odor after Cleansing No -Negative Pressure Wound Therapy N/A -Other Dressing aquacel ag -Primary Dressing Covered/Secured with Secured with Tape -Other Covering abd 6. L lumbar back -Ulcer Cleansing Rinsed/ Irrigated with Saline -Foul Odor after Cleansing No -Negative Pressure Wound Therapy N/A -Other Dressing aquacel ag -Primary Dressing Covered/Secured with Secured with Tape -Other Covering abd Treatment Response Procedure Tolerated Well Pain Scale: 0-10 Numeric Is Patient Pain Free? Yes Teaching: Wound Center Dressing Your Wound -Person Taught Patient -Teaching Method Discussion, Demonstration -Response to teaching Verbalize understanding WC - Visit Discharge Discharge Condition Stable Ambulatory Status Ambulatory Transportation Private Auto Accompanied by self Medication Reconcilliation completed & No provided to patient/care provider Clinical Summary of Care Provided Yes Assessment/Plan Active Problems (Last Reviewed 03/18/20 @ 16:[address] Ryan Gandhi, DO) Skin ulcer of multiple sites of trunk with fat layer exposed (Chronic) Chronic renal insufficiency, stage I (Chronic) Dehiscence of external surgical wound (Chronic) Unspecified complication of skin graft (allograft) (autograft) (Chronic) LEYDI (obstructive sleep apnea) (Chronic) 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 Hypertension (Chronic) Assessment: This is a 59-year-old male with an open wound/ulceration on his mid back and on the right flank. Despite numerous conservative treatment measures and interventions, these wounds have failed to heal. In addition, surgical measures, and skin grafting, including the use of skin graft substitutes, all have been unsuccessful in achieving healing. In many instances, the wounds have increased in size. Biopsies have been negative for malignancy. Cultures, wound positive, have been used to direct antibiotic therapy. Local wound care measures, topical products, negative pressure wound therapy, serial debridements, etc., have all been unsuccessful in achieving healing. It does not appear as though the patient is taking any medications that would account for his chronic nonhealing wounds. Plan: It appears as though a variety of treatment measures have been implemented, all of which have been unsuccessful. The patient has been cared for at the [facility] for over 2 years, without achieving healing of the patient's wounds. It seems as though few other conventional treatment measures remain. At this juncture, consultation was requested for further ideas as to possible management options. An alternative to the measures which have been previously implemented might be to consider that the patient's wounds may be the result of pyoderma gangrenosum, or a related entity. Such a diagnosis is one by exclusion. To date, no specific diagnostic test has definitively identified the etiology of the patient's wounds. Virtually all treatments thus far have been unsuccessful in achieving wound healing. It is generally considered that an entity such as pyoderma gangrenosum does not respond to mechanical debridements, and in some cases may be exacerbated. Therefore, it may be reasonable to consider proceeding by an alternative pathway, discontinuing serial debridements and aggressive local wound care measures, and treating the patient more systemically by means of immunosuppressive therapy. This could take the form of topical steroids, tacrolimus ointment, etc. Alternatively, systemic steroids, cyclosporine, azathioprine, methotrexate, dapsone, or other immunosuppressive medications may be considered. I have discussed this approach as an alternative with the patient. He appears to be open minded to this approach as an alternative to the unsuccessful methods employed previously. Although there is no assurance, and some risk involved, this alternative approach may prove to be of benefit. Thus far, the traditional treatment approaches have not been successful, and an alternative course could be of benefit. This approach has been briefly discussed with Yamileth Reeves NP, the patient's regular provider. Will defer management in this regard to her in regard to specific measures. While some risk may be assumed with regard to immunosuppression treatment, there is little to be lost in terms of the wound status, given that little has been achieved in this regard for quite some time. The patient is not a smoker. Influenza vaccine was not administered today. The patient weighs 210 pounds. He stands 6 feet 0 inches tall. His BMI is 28.5. Total time: 50 minutes. . If the option described above is to be implemented, it would best be conducted by means of a multidisciplinary approach. It would be envisioned that a specialist or specialists be involved who are familiar with the systemic medications related to immunosuppressive therapy, so as to focus on achieving the desired result, while minimizing the risk of complications. Knowledge of the actions, pharmacology, and pharmacodynamics of any of the implemented medications should be a prerequisite, as well as serial monitoring of their effects on the patient with respect to body systems. Furthermore, the patient should be fully informed of any risks involved in the implementation of such medications, with appropriate granted consent.
[2020-06-22 14:16] VITALS: BP 128/70; PULSE 96; RESP 18; TEMP 36.8; BMI 27.8
--- NOTE | 2020-06-22 15:27 | PCM.WC.PN ---
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 Operative culture - negative. He was discharged on Doxycycline and has finished them. Wound care - he has completed 10 applications of Epifix to the left lateral middle back ulcer. Daily collagen hydrogel covered with adaptic. He saw a services host, Dr. Wilmer Hicks at [facility] this morning. She would like to do patch testing. I spoke with her staff and they stated she has treated Pyroderma Gangrenosum in the past with other patients. Will hold off on referring him to Rheumatology until after his patch testing to see if she has another diagnosis besides Pyroderma Gangrenosum. She instructed him to place vasoline on the ulcers, but I recommend collagen hydrogel and told her nurse about that recommendation. Prealbumin from 07/22/19 was 18.7. Encourage nutritonal supplementation with protein to help the healing process. His HgbA1c from 07/22/19 was 5.9. Right flank ulcer was surgically closed 01/17/20 and has developed some painful ulcerations. Wound culture from the left lateral middle back on 02/03/2020 was negative for aerobic and anaerobic growth. There was a repeat culture on 03/23/20 which showed MRSE. He was placed on Clindamycin and has completed them. Wound cultures from 05/04/20 from the right flank was negative for bacterial growth. The left back was positive MRSE and Corynebacterium amycolatum. He was started on Linzolid for the time being and the patient will think about his options and discuss them with his . Other option includes IV antibiotics. Today he denies any fevers and states his appetite is good. From Dr. Jerez's consult on 06/15/20: This is a 59-year-old male who has a very lengthy and complicated past medical history. His medical records have been reviewed in detail. He has been cared for at the [facility] for over 2 years. He has multiple wounds, which have failed to heal. In some cases, his wounds have become worse. They began as sebaceous cysts, which were surgically excised by his primary care physician in the office setting. Proper healing never occurred. Several surgical procedures have been performed, including a skin grafting procedure. A variety of treatment measures have been instituted all of which have been unsuccessful. These measures have included local wound care, skin substitutes, negative pressure wound therapy, hyperbaric oxygen therapy, serial debridements, antibiotic administration and response to positive culture results, etc. Wound biopsies have been performed, all of which have been negative for malignancy. A multidisciplinary approach has been implemented, and has included evaluation by the Plastic Surgery service and evaluation by specialist to evaluate possible autoimmune causes. Current management includes the use of Aquacel silver. The patient is currently taking linezolid for recent cultures positive for MRSE and corynebacterium species. Patient's medication list has been reviewed, and none of his current medications suggest wound healing inhibition. Patient is currently in the midst of evaluation by an photographic reproduction technician as relates to his chronic, nonhealing wounds. The following portion of the patient's history is pre-existing and is as follows: Surgery 01/17/2020?surgical preparation right flank with excisional debridement of nonhealing painful infected diabetic ulcer of the right flank with 7 cm complex secondary wound closure. Operative culture - negative. He was discharged on Doxycycline and has finished them. Wound care - he has completed 10 applications of Epifix to the left lateral middle back ulcer. Silver dressing changes. Using chlorhexidine twice weekly. Prealbumin from 07/22/19 was 18.7. Encourage nutritonal supplementation with protein to help the healing process. His HgbA1c from 07/22/19 was 5.9. Right flank ulcer was surgically closed 01/17/20 and has developed some painful ulcerations. Wound culture from the left lateral middle back on 02/03/2020 was negative for aerobic and anaerobic growth. There was a repeat culture on 03/23/20 which showed MRSE. He was placed on Clindamycin and has completed them. Wound cultures from 05/04/20 from the right flank was negative for bacterial growth. The left back was positive MRSE and Corynebacterium amycolatum. He was started on Linzolid for the time being and the patient will think about his options and discuss them with his . Progress of Wound: Left middle lateral back ulcer stable. Right middle lateral back ulcer remains healed. Right flank ulcer has multiple areas that are open and appear larger than two weeks ago. - Physical Exam Vital Signs Temp Pulse Resp BP Pulse Ox 98.3 F 96 18 128/70 H 16 06/22/20 14:16 06/22/20 14:16 06/22/20 14:16 06/22/20 14:16 06/15/20 00:17 General: Alert, Oriented x3, Cooperative HEENT: Atraumatic Oral: Moist Mucosa Lungs: Normal air movement Cardiovascular: Regular rate Extremities: Capillary Refill Less than 3 Seconds Skin: Ulcer/ Wound - Left lateral middle back ulcer and right flank ulcer clusters. Wound Measurements and Assessment WC - Nurse 1 - General Ulcer Measurement Start: 06/16/20 09:20 Freq: Status: Active Protocol: Activity Type Activity Date Activity User E-Sign Co-Sign Detail Recorded Client Recorded Date Recorded By Document 06/22/20 14:16 DL [id number] 06/22/20 14:24 DL 06/22/20 14:16 Wound Center Nurse 1 [Ulcer Assessment] #9 R Lower Side Posterior -Current Size (cm) - Length 1 -Current Size (cm) - Width 1.5 -Current Size (cm) - Depth 0.3 -Total Square Cm 1.5 -Photo Taken No -Exudate Amt Medium -Exudate Type Serosanguineous -Wound Margin Distinct, Outline Attached -Granulation Amt Large (67-100%) -Granulation Quality Red -Necrosis Amt Small (1-33%) -Necrotic Tissue Type Adherent Slough -Structure Exposed N/A -Texture (Mayra-wound Skin Appearance) Scarring -Moisture (Mayra-wound Skin Appearance No Abnormality ) -Color (Mayra-wound Skin Appearance) No Abnormality, Rubor -Temperature (Mayra-wound Skin No Abnormality Appearance) (Pt Warm) -Tenderness on Palpation (Mayra-wound No Skin Appearance) -Ulcer Cleansing Wound Cleanser -Foul Odor after Cleansing No -Anesthetic Used 4% Lidocaine Solution #8 Right lower side Anterior -Current Size (cm) - Length 1.1 -Current Size (cm) - Width 6 -Current Size (cm) - Depth 0.3 -Total Square Cm 6.6 -Photo Taken No -Exudate Amt Medium -Exudate Type Serosanguineous -Wound Margin Distinct, Outline Attached -Granulation Amt Medium (34-66%) -Granulation Quality Red -Necrosis Amt Medium (34-66%) -Necrotic Tissue Type Adherent Slough -Structure Exposed N/A -Texture (Mayra-wound Skin Appearance) Scarring -Moisture (Mayra-wound Skin Appearance No Abnormality ) -Color (Mayra-wound Skin Appearance) No Abnormality -Temperature (Mayra-wound Skin No Abnormality Appearance) (Pt Warm) -Tenderness on Palpation (Mayra-wound No Skin Appearance) -Ulcer Cleansing Wound Cleanser -Foul Odor after Cleansing No -Anesthetic Used 4% Lidocaine Solution 6. L lumbar back -Current Size (cm) - Length 3.2 -Current Size (cm) - Width 2.4 -Current Size (cm) - Depth 0.3 -Total Square Cm 7.68 -Photo Taken No -Exudate Amt Medium -Exudate Type Serosanguineous -Wound Margin Distinct, Outline Attached -Granulation Amt Medium (34-66%) -Granulation Quality Red -Necrosis Amt Medium (34-66%) -Necrotic Tissue Type Adherent Slough -Structure Exposed N/A -Texture (Mayra-wound Skin Appearance) Scarring -Moisture (Mayra-wound Skin Appearance No Abnormality ) -Color (Mayra-wound Skin Appearance) No Abnormality -Temperature (Mayra-wound Skin No Abnormality Appearance) (Pt Warm) -Tenderness on Palpation (Mayra-wound No Skin Appearance) -Ulcer Cleansing Wound Cleanser WC - Nurse 2 - General Ulcer CM Notes Start: 06/16/20 09:20 Freq: Status: Active Protocol: Activity Type Activity Date Activity User E-Sign Co-Sign Detail Recorded Client Recorded Date Recorded By Document 06/22/20 14:34 [facility] [id number] 06/22/20 14:39 [facility] 06/22/20 14:34 Wound Center Nurse 2 [Procedure/Treatment] #9 R Lower Side Posterior -Correct Patient No -Correct Side, Site, Position No -Correct Procedure No -Procedure Performed No -Wound/Ulcer Outcome Not Healed #8 Right lower side Anterior -Correct Patient No -Correct Side, Site, Position No -Correct Procedure No -Procedure Performed No -Wound/Ulcer Outcome Not Healed 6. L lumbar back -Correct Patient No -Correct Side, Site, Position No -Correct Procedure No -Procedure Performed No -Wound/Ulcer Outcome Not Healed [See Physician Procedure note for Specifics] Pain Scale: 0-10 Numeric [Pain] -Is Patient Pain Free? Yes - Nurse 3 - General Ulcer D/C NN Start: 06/16/20 09:20 Freq: Status: Active Protocol: Activity Type Activity Date Activity User E-Sign Co-Sign Detail Recorded Client Recorded Date Recorded By Document 06/22/20 14:57 [facility] [id number] 06/22/20 14:59 [facility] 06/22/20 14:57 Wound Care Nurse 3 [Wound Dressing] #9 R Lower Side Posterior -Ulcer Cleansing Rinsed/ Irrigated with Saline -Foul Odor after Cleansing No -Primary Dressing Applied C Hydrogel ($), Other -Other Dressing drsgsl per d jake hand printed circuit board assembler -Primary Dressing Covered/Secured Dry Gauze & with Roll Gauze, Secured with Tape #8 Right lower side Anterior -Ulcer Cleansing Rinsed/ Irrigated with Saline -Foul Odor after Cleansing No -Primary Dressing Applied Other -Other Dressing hydrogel -Primary Dressing Covered/Secured Dry Gauze, with Secured with Tape -Other Covering drsgs per d jake hand printed circuit board assembler 6. L lumbar back -Ulcer Cleansing Rinsed/ Irrigated with Saline -Foul Odor after Cleansing No -Primary Dressing Applied Other -Other Dressing hydrogel -Primary Dressing Covered/Secured Dry Gauze, with Secured with Tape -Other Covering drsgs per d jake hand printed circuit board assembler [Post Procedure Tolerated] -Treatment Response Procedure Tolerated Well Pain Scale: 0-10 Numeric [Pain] -Is Patient Pain Free? Yes - Visit Discharge [Visit Discharge Information] -Discharge Condition Stable -Ambulatory Status Ambulatory -Transportation Private Auto Musculoskeletal: No Tenderness to Palpation of Joints or Extremities Neurological: Cranial nerves II-XII grossly intact Psych/Mental Status: Normal Affect, Appropriate Debridement Note Post-Debridement Measurements/Treatment - Nurse 2 - General Ulcer CM Notes Start: 06/16/20 09:20 Freq: Status: Active Protocol: Activity Type Activity Date Activity User E-Sign Co-Sign Detail Recorded Client Recorded Date Recorded By Document 06/22/20 14:34 [id number] 06/22/20 14:39 06/22/20 14:34 Wound Center Nurse 2 #9 R Lower Side Posterior -Correct Patient No -Correct Side, Site, Position No -Correct Procedure No -Procedure Performed No -Wound/Ulcer Outcome Not Healed #8 Right lower side Anterior -Correct Patient No -Correct Side, Site, Position No -Correct Procedure No -Procedure Performed No -Wound/Ulcer Outcome Not Healed 6. L lumbar back -Correct Patient No -Correct Side, Site, Position No -Correct Procedure No -Procedure Performed No -Wound/Ulcer Outcome Not Healed Pain Scale: 0-10 Numeric Is Patient Pain Free? Yes WC - Nurse 3 - General Ulcer D/C NN Start: 06/16/20 09:20 Freq: Status: Active Protocol: Activity Type Activity Date Activity User E-Sign Co-Sign Detail Recorded Client Recorded Date Recorded By Document 06/16/20 10:30 MW [id number] 06/16/20 10:31 MW Document 06/22/20 14:57 [facility] [id number] 06/22/20 14:59 [facility] 06/16/20 06/22/20 10:30 14:57 Wound Care Nurse 3 #9 R Lower Side Posterior -Ulcer Cleansing Rinsed/ Rinsed/ Irrigated with Irrigated with Saline Saline -Foul Odor after Cleansing No No -Negative Pressure Wound Therapy N/A -Primary Dressing Applied C Hydrogel ($), Other -Other Dressing aquacel ag drsgsl per d jake hand printed circuit board assembler -Primary Dressing Covered/Secured with Secured with Dry Gauze & Tape Roll Gauze, Secured with Tape -Other Covering abd #8 Right lower side Anterior -Ulcer Cleansing Rinsed/ Rinsed/ Irrigated with Irrigated with Saline Saline -Foul Odor after Cleansing No No -Negative Pressure Wound Therapy N/A -Primary Dressing Applied Other -Other Dressing aquacel ag hydrogel -Primary Dressing Covered/Secured with Secured with Dry Gauze, Tape Secured with Tape -Other Covering abd drsgs per d jake hand printed circuit board assembler 6. L lumbar back -Ulcer Cleansing Rinsed/ Rinsed/ Irrigated with Irrigated with Saline Saline -Foul Odor after Cleansing No No -Negative Pressure Wound Therapy N/A -Primary Dressing Applied Other -Other Dressing aquacel ag hydrogel -Primary Dressing Covered/Secured with Secured with Dry Gauze, Tape Secured with Tape -Other Covering danny joseph lpn Treatment Response Procedure Procedure Tolerated Well Tolerated Well Pain Scale: 0-10 Numeric Is Patient Pain Free? Yes Yes Teaching: Wound Center Dressing Your Wound -Person Taught Patient -Teaching Method Discussion, Demonstration -Response to teaching Verbalize understanding WC - Visit Discharge Discharge Condition Stable Stable Ambulatory Status Ambulatory Ambulatory Transportation Private Auto Private Auto Accompanied by self Medication Reconcilliation completed & No provided to patient/care provider Clinical Summary of Care Provided Yes No debridement was completed today Assessment/Plan Active Problems (Last Reviewed 03/18/20 @ 16:[address] 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 Nonhealing diabetic ulcer left lateral middle back. 2. Nonhealing diabetic ulcers right flank, s/p surgical closure 01/17/2020. 3. Diabetes mellitus. 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 Wound care - he has completed 10 applications of Epifix to the left lateral middle back ulcer. Daily collagen hydrogel covered with adaptic. He saw a services host, Dr. Wilmer Hicks at [facility] this morning. She would like to do patch testing. I spoke with her staff and they stated she has treated Pyroderma Gangrenosum in the past with other patients. Will hold off on referring him to Rheumatology until after his patch testing to see if she has another diagnosis besides Pyroderma Gangrenosum. She instructed him to place vasoline on the ulcers, but I recommend collagen hydrogel and told her nurse about that recommendation. 10 applications of Epifix to the left middle lateral back ulcer have been completed. Right middle lateral back ulcer remains healed. He spoke with photographic reproduction technician and he is referring him to another person. He is seeing a Custom Seamstress chiropracter/photographic reproduction technician next month. We'll refer him to Dr. Jerez, our medical transcriber at the wound center for further evaluation to make sure there isn't anything further we should be doing to care for his ulcers. He finished Clindamycin for a culture done on 03/23/20 that showed MRSE. Wound culture from 05/04/20 in the right flank was negative for bacterial growth. Wpound culture from the left lateral middle back was positive for MRSE and Corynebacterium amycolatum. He was started on Linezolid because of the resistant Staph and will continue them. Discussed with the patient about IV antibiotics through a PICC line. He will think about IV antibiotics and wants to wait until after his Vehicle Monitor Technician vist before deciding. Prealbumin from 07/22/19 was 18.7. Encourage nutritonal supplementation with protein to help the healing process. His HgbA1c from 07/22/19 was 5.9. Followup two weeks. Dr. Jerez's plan from 06/15/20: It appears as though a variety of treatment measures have been implemented, all of which have been unsuccessful. The patient has been cared for at the [facility] for over 2 years, without achieving healing of the patient's wounds. It seems as though few other conventional treatment measures remain. At this juncture, consultation was requested for further ideas as to possible management options. An alternative to the measures which have been previously implemented might be to consider that the patient's wounds may be the result of pyoderma gangrenosum, or a related entity. Such a diagnosis is one by exclusion. To date, no specific diagnostic test has definitively identified the etiology of the patient's wounds. Virtually all treatments thus far have been unsuccessful in achieving wound healing. It is generally considered that an entity such as pyoderma gangrenosum does not respond to mechanical debridements, and in some cases may be exacerbated. Therefore, it may be reasonable to consider proceeding by an alternative pathway, discontinuing serial debridements and aggressive local wound care measures, and treating the patient more systemically by means of immunosuppressive therapy. This could take the form of topical steroids, tacrolimus ointment, etc. Alternatively, systemic steroids, cyclosporine, azathioprine, methotrexate, dapsone, or other immunosuppressive medications may be considered. I have discussed this approach as an alternative with the patient. He appears to be open minded to this approach as an alternative to the unsuccessful methods employed previously. Although there is no assurance, and some risk involved, this alternative approach may prove to be of benefit. Thus far, the traditional treatment approaches have not been successful, and an alternative course could be of benefit. This approach has been briefly discussed with Shabana Reeves NP, the patient's regular provider. Will defer management in this regard to her in regard to specific measures. While some risk may be assumed with regard to immunosuppression treatment, there is little to be lost in terms of the wound status, given that little has been achieved in this regard for quite some time. The patient is not a smoker. Influenza vaccine was not administered today. The patient weighs 210 pounds. He stands 6 feet 0 inches tall. His BMI is 28.5. Total time: 50 minutes. . If the option described above is to be implemented, it would best be conducted by means of a multidisciplinary approach. It would be envisioned that a specialist or specialists be involved who are familiar with the systemic medications related to immunosuppressive therapy, so as to focus on achieving the desired result, while minimizing the risk of complications. Knowledge of the actions, pharmacology, and pharmacodynamics of any of the implemented medications should be a prerequisite, as well as serial monitoring of their effects on the patient with respect to body systems. Furthermore, the patient should be fully informed of any risks involved in the implementation of such medications, with appropriate granted consent. Office Visits / Consults: [id number] OV L3 Est
[2020-07-06 09:15] VITALS: BP 127/81; PULSE 68; RESP 16; TEMP 36.6; BMI 27.8
--- NOTE | 2020-07-06 11:55 | PCM.WC.PN ---
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 Operative culture - negative. He was discharged on Doxycycline and has finished them. Wound care - he has completed 10 applications of Epifix to the left lateral middle back ulcer. Daily collagen hydrogel covered with adaptic. He saw a construction administrator, Dr. Wilmer Hicks at [facility]. She would like to do patch testing. I spoke with her last week and she stated she wants to do the patch testing, but believes this most likely is Pyroderma Gangrenosum. She has started him on Tacrolimus 0.1% to be used on his ulcers daily. Prealbumin from 07/22/19 was 18.7. Encourage nutritonal supplementation with protein to help the healing process. His HgbA1c from 07/22/19 was 5.9. Right flank ulcer was surgically closed 01/17/20 and has developed some painful ulcerations. Wound culture from the left lateral middle back on 02/03/2020 was negative for aerobic and anaerobic growth. There was a repeat culture on 03/23/20 which showed MRSE. He was placed on Clindamycin and has completed them. Wound cultures from 05/04/20 from the right flank was negative for bacterial growth. The left back was positive MRSE and Corynebacterium amycolatum. He was started on Linzolid for the time being and the patient will think about his options and discuss them with his . Other option includes IV antibiotics. Today he denies any fevers and states his appetite is good. From Dr. Jerez's consult on 06/15/20: This is a 59-year-old male who has a very lengthy and complicated past medical history. His medical records have been reviewed in detail. He has been cared for at the [facility] for over 2 years. He has multiple wounds, which have failed to heal. In some cases, his wounds have become worse. They began as sebaceous cysts, which were surgically excised by his primary care physician in the office setting. Proper healing never occurred. Several surgical procedures have been performed, including a skin grafting procedure. A variety of treatment measures have been instituted all of which have been unsuccessful. These measures have included local wound care, skin substitutes, negative pressure wound therapy, hyperbaric oxygen therapy, serial debridements, antibiotic administration and response to positive culture results, etc. Wound biopsies have been performed, all of which have been negative for malignancy. A multidisciplinary approach has been implemented, and has included evaluation by the Plastic Surgery service and evaluation by specialist to evaluate possible autoimmune causes. Current management includes the use of Aquacel silver. The patient is currently taking linezolid for recent cultures positive for MRSE and corynebacterium species. Patient's medication list has been reviewed, and none of his current medications suggest wound healing inhibition. Patient is currently in the midst of evaluation by an lard renderer as relates to his chronic, nonhealing wounds. The following portion of the patient's history is pre-existing and is as follows: Surgery 01/17/2020?surgical preparation right flank with excisional debridement of nonhealing painful infected diabetic ulcer of the right flank with 7 cm complex secondary wound closure. Operative culture - negative. He was discharged on Doxycycline and has finished them. Wound care - he has completed 10 applications of Epifix to the left lateral middle back ulcer. Silver dressing changes. Using chlorhexidine twice weekly. Prealbumin from 07/22/19 was 18.7. Encourage nutritonal supplementation with protein to help the healing process. His HgbA1c from 07/22/19 was 5.9. Right flank ulcer was surgically closed 01/17/20 and has developed some painful ulcerations. Wound culture from the left lateral middle back on 02/03/2020 was negative for aerobic and anaerobic growth. There was a repeat culture on 03/23/20 which showed MRSE. He was placed on Clindamycin and has completed them. Wound cultures from 05/04/20 from the right flank was negative for bacterial growth. The left back was positive MRSE and Corynebacterium amycolatum. He was started on Linzolid for the time being and the patient will think about his options and discuss them with his . Progress of Wound: Left middle lateral back ulcer stable. Right middle lateral back ulcer remains healed. Right flank ulcer has multiple areas that are open with a new purple area on the posterior portion of flank that looks bruised. This is how his other areas started before they opened and ulcerated. Will continue to monitor. - Physical Exam Vital Signs Temp Pulse Resp BP Pulse Ox 97.8 F 68 16 127/81 H 16 07/06/20 09:15 07/06/20 09:15 07/06/20 09:15 07/06/20 09:15 06/15/20 00:17 General: Alert, Oriented x3, Cooperative HEENT: Atraumatic Oral: Moist Mucosa Lungs: Normal air movement Cardiovascular: Regular rate Extremities: No edema, Capillary Refill Less than 3 Seconds Skin: Ulcer/ Wound - ulLeft middle, lateral back ulcer is stable. Right lateral flank cluster is pink. He has as purple spot approx 1-2 mm on the posterior portion of the right flank incision. It is not opened but this is how his other ulcers started. All the ulcerated areas do look less angry red. Wound Measurements and Assessment WC - Nurse 1 - General Ulcer Measurement Start: 06/16/20 09:20 Freq: Status: Active Protocol: Activity Type Activity Date Activity User E-Sign Co-Sign Detail Recorded Client Recorded Date Recorded By Document 07/06/20 09:15 [facility] [id number] 07/06/20 09:23 [facility] 07/06/20 09:15 Wound Center Nurse 1 [Ulcer Assessment] #9 R Lower Side Posterior -Combined with other wound No -Current Size (cm) - Length 2.5 -Current Size (cm) - Width 6.4 -Current Size (cm) - Depth 0.2 -Total Square Cm 16.00 -Photo Taken No -Epithelialization Small 1-33% -Tunneling No -Undermining/Tunneling No -Circular Undermining No -Exudate Amt Medium -Exudate Type Serosanguineous -Wound Margin Distinct, Outline Attached -Granulation Amt Medium (34-66%) -Granulation Quality Red -Slough/Fibrin Yes -Necrosis Amt Medium (34-66%) -Necrotic Tissue Type Adherent Slough -Texture (Mayra-wound Skin Appearance) Assessed, Scarring -Moisture (Mayra-wound Skin Appearance Assessed ) -Color (Mayra-wound Skin Appearance) Assessed -Temperature (Mayra-wound Skin No Abnormality Appearance) (Pt Warm) -Tenderness on Palpation (Mayra-wound Yes Skin Appearance) -Ulcer Cleansing Rinsed/ Irrigated with Saline -Foul Odor after Cleansing No #8 Right lower side Anterior -Combined with other wound No -Current Size (cm) - Length 1 -Current Size (cm) - Width 2.4 -Current Size (cm) - Depth 0.3 -Total Square Cm 2.4 -Photo Taken No -Epithelialization Small 1-33% -Tunneling No -Undermining/Tunneling No -Circular Undermining No -Exudate Amt Medium -Exudate Type Serosanguineous -Wound Margin Distinct, Outline Attached -Granulation Amt Medium (34-66%) -Granulation Quality Red -Slough/Fibrin Yes -Necrosis Amt Small (1-33%) -Necrotic Tissue Type Adherent Slough -Texture (Mayra-wound Skin Appearance) Assessed, Scarring -Moisture (Mayra-wound Skin Appearance Assessed ) -Color (Mayra-wound Skin Appearance) Assessed, Erythema -Temperature (Mayra-wound Skin No Abnormality Appearance) (Pt Warm) -Tenderness on Palpation (Mayra-wound Yes Skin Appearance) -Ulcer Cleansing Rinsed/ Irrigated with Saline -Foul Odor after Cleansing No 6. L lumbar back -Combined with other wound No -Current Size (cm) - Length 3.5 -Current Size (cm) - Width 2.4 -Current Size (cm) - Depth 0.3 -Total Square Cm 8.40 -Photo Taken No -Epithelialization Small 1-33% -Tunneling No -Undermining/Tunneling No -Circular Undermining No -Exudate Amt Small -Exudate Type Serosanguineous -Wound Margin Distinct, Outline Attached -Granulation Amt Large (67-100%) -Granulation Quality Red -Slough/Fibrin Yes -Necrosis Amt Small (1-33%) -Necrotic Tissue Type Adherent Slough -Texture (Mayra-wound Skin Appearance) Assessed, Scarring -Moisture (Mayra-wound Skin Appearance Assessed ) -Color (Mayra-wound Skin Appearance) Assessed -Temperature (Mayra-wound Skin No Abnormality Appearance) (Pt Warm) -Tenderness on Palpation (Mayra-wound No Skin Appearance) -Ulcer Cleansing Rinsed/ Irrigated with Saline -Foul Odor after Cleansing No WC - Nurse 2 - General Ulcer CM Notes Start: 06/16/20 09:20 Freq: Status: Active Protocol: Activity Type Activity Date Activity User E-Sign Co-Sign Detail Recorded Client Recorded Date Recorded By Document 07/06/20 09:36 [id number] 07/06/20 09:37 07/06/20 09:36 Wound Center Nurse 2 [Procedure/Treatment] #9 R Lower Side Posterior -Correct Patient No -Correct Side, Site, Position No -Correct Procedure No -Procedure Performed No -Wound/Ulcer Outcome Not Healed #8 Right lower side Anterior -Correct Patient No -Correct Side, Site, Position No -Correct Procedure No -Procedure Performed No -Wound/Ulcer Outcome Not Healed 6. L lumbar back -Correct Patient No -Correct Side, Site, Position No -Correct Procedure No -Procedure Performed No -Wound/Ulcer Outcome Not Healed [See Physician Procedure note for Specifics] Pain Scale: 0-10 Numeric [Pain] -Is Patient Pain Free? Yes WC - Nurse 3 - General Ulcer D/C NN Start: 06/16/20 09:20 Freq: Status: Active Protocol: Activity Type Activity Date Activity User E-Sign Co-Sign Detail Recorded Client Recorded Date Recorded By Document 07/06/20 09:44 [facility] [id number] 07/06/20 09:45 [facility] 07/06/20 09:44 Wound Care Nurse 3 [Wound Dressing] #9 R Lower Side Posterior -Ulcer Cleansing Rinsed/ Irrigated with Saline -Foul Odor after Cleansing No -Primary Dressing Applied Other -Other Dressing TACROLIMUS OINT -Primary Dressing Covered/Secured Secured with with Tape,Other -Other Covering ABD, DRSG PER D DINH ARCHITECT NAVAL #8 Right lower side Anterior -Ulcer Cleansing Rinsed/ Irrigated with Saline -Foul Odor after Cleansing No -Primary Dressing Applied Other -Other Dressing TACROLIMUS -Primary Dressing Covered/Secured Secured with with Tape,Other -Other Covering ABD, DRSG PER D DINH ARCHITECT NAVAL 6. L lumbar back -Ulcer Cleansing Rinsed/ Irrigated with Saline -Foul Odor after Cleansing No -Primary Dressing Applied Other -Other Dressing TACROLIMUS, -Primary Dressing Covered/Secured Secured with with Tape,Other -Other Covering ABD; DRSG PER Valery TAO ARCHITECT NAVAL [Post Procedure Tolerated] -Treatment Response Procedure Tolerated Well Pain Scale: 0-10 Numeric [Pain] -Is Patient Pain Free? Yes - Visit Discharge [Visit Discharge Information] -Discharge Condition Stable -Ambulatory Status Ambulatory -Transportation Private Auto Musculoskeletal: No Tenderness to Palpation of Joints or Extremities Neurological: Cranial nerves II-XII grossly intact Psych/Mental Status: Normal Affect, Appropriate Debridement Note Post-Debridement Measurements/Treatment - Nurse 2 - General Ulcer CM Notes Start: 06/16/20 09:20 Freq: Status: Active Protocol: Activity Type Activity Date Activity User E-Sign Co-Sign Detail Recorded Client Recorded Date Recorded By Document 06/22/20 14:34 [id number] 06/22/20 14:39 Document 07/06/20 09:36 [id number] 07/06/20 09:37 06/22/20 07/06/20 14:34 09:36 Wound Center Nurse 2 #9 R Lower Side Posterior -Correct Patient No No -Correct Side, Site, Position No No -Correct Procedure No No -Procedure Performed No No -Wound/Ulcer Outcome Not Healed Not Healed #8 Right lower side Anterior -Correct Patient No No -Correct Side, Site, Position No No -Correct Procedure No No -Procedure Performed No No -Wound/Ulcer Outcome Not Healed Not Healed 6. L lumbar back -Correct Patient No No -Correct Side, Site, Position No No -Correct Procedure No No -Procedure Performed No No -Wound/Ulcer Outcome Not Healed Not Healed Pain Scale: 0-10 Numeric Is Patient Pain Free? Yes Yes - Nurse 3 - General Ulcer D/C NN Start: 06/16/20 09:20 Freq: Status: Active Protocol: Activity Type Activity Date Activity User E-Sign Co-Sign Detail Recorded Client Recorded Date Recorded By Document 06/16/20 10:30 MW [id number] 06/16/20 10:31 MW Document 06/22/20 14:57 BMF [id number] 06/22/20 14:59 BMF Document 07/06/20 09:44 BMF [id number] 07/06/20 09:45 BMF 06/16/20 06/22/20 07/06/20 10:30 14:57 09:44 Wound Care Nurse 3 #9 R Lower Side Posterior -Ulcer Cleansing Rinsed/ Rinsed/ Rinsed/ Irrigated with Irrigated with Irrigated with Saline Saline Saline -Foul Odor after Cleansing No No No -Negative Pressure Wound Therapy N/A -Primary Dressing Applied C Hydrogel ($), Other Other -Other Dressing aquacel ag drsgsl per d TACROLIMUS OINT dinh conservation engineer -Primary Dressing Covered/Secured with Secured with Dry Gauze & Secured with Tape Roll Gauze, Tape,Other Secured with Tape -Other Covering abd ABD, DRSG PER D DINH ARCHITECT NAVAL #8 Right lower side Anterior -Ulcer Cleansing Rinsed/ Rinsed/ Rinsed/ Irrigated with Irrigated with Irrigated with Saline Saline Saline -Foul Odor after Cleansing No No No -Negative Pressure Wound Therapy N/A -Primary Dressing Applied Other Other -Other Dressing aquacel ag hydrogel TACROLIMUS -Primary Dressing Covered/Secured with Secured with Dry Gauze, Secured with Tape Secured with Tape,Other Tape -Other Covering abd drsgs per d ABD, DRSG PER D dinh conservation engineer DINH ARCHITECT NAVAL 6. L lumbar back -Ulcer Cleansing Rinsed/ Rinsed/ Rinsed/ Irrigated with Irrigated with Irrigated with Saline Saline Saline -Foul Odor after Cleansing No No No -Negative Pressure Wound Therapy N/A -Primary Dressing Applied Other Other -Other Dressing aquacel ag hydrogel TACROLIMUS, -Primary Dressing Covered/Secured with Secured with Dry Gauze, Secured with Tape Secured with Tape,Other Tape -Other Covering abd drsgs per d ABD; DRSG PER D dinh conservation engineer DINH ARCHITECT NAVAL Treatment Response Procedure Procedure Procedure Tolerated Well Tolerated Well Tolerated Well Pain Scale: 0-10 Numeric Is Patient Pain Free? Yes Yes Yes Teaching: Wound Center Dressing Your Wound -Person Taught Patient -Teaching Method Discussion, Demonstration -Response to teaching Verbalize understanding WC - Visit Discharge Discharge Condition Stable Stable Stable Ambulatory Status Ambulatory Ambulatory Ambulatory Transportation Private Auto Private Auto Private Auto Accompanied by self Medication Reconcilliation completed & No provided to patient/care provider Clinical Summary of Care Provided Yes No debridement was completed today Assessment/Plan Active Problems (Last Reviewed 07/01/20 @ 08:36 by Allison Thornton) Chronic renal insufficiency, stage I (Chronic) Dehiscence of external surgical wound (Chronic) 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 Nonhealing diabetic ulcer left lateral middle back. 2. Nonhealing diabetic ulcers right flank, s/p surgical closure 01/17/2020. 3. Diabetes mellitus. 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 Wound care - he has completed 10 applications of Epifix to the left lateral middle back ulcer. The construction administrator has started him on Tacrolimus 0.1% daily. I spoke with the construction administrator, Dr. Wilmer Hicks at [facility], she would like to do patch testing, but she is thinking this most likely is Pyoderma Gangrenosum. She will treat him with the Tacrolimus 0.1%. I will hold off on referring him to Rheumatology until after his patch testing to see if she has another diagnosis besides Pyroderma Gangrenosum. 10 applications of Epifix to the left middle lateral back ulcer have been completed. Right middle lateral back ulcer remains healed. He spoke with lard renderer and he is referring him to another person. He is seeing a [facility] chiropracter/lard renderer next month. We'll refer him to Dr. Jerez, our biomedical scientist at the wound center for further evaluation to make sure there isn't anything further we should be doing to care for his ulcers. He finished Clindamycin for a culture done on 03/23/20 that showed MRSE. Wound culture from 05/04/20 in the right flank was negative for bacterial growth. Wpound culture from the left lateral middle back was positive for MRSE and Corynebacterium amycolatum. He was started on Linezolid because of the resistant Staph and will continue them. Discussed with the patient about IV antibiotics through a PICC line. He will think about IV antibiotics and wants to wait until after his Hand Braille Transcriber vist before deciding. Prealbumin from 07/22/19 was 18.7. Encourage nutritonal supplementation with protein to help the healing process. His HgbA1c from 07/22/19 was 5.9. Follow up one month. Please contact us sooner if there are any issues. Dr. Jerez's plan from 06/15/20: It appears as though a variety of treatment measures have been implemented, all of which have been unsuccessful. The patient has been cared for at the [facility] for over 2 years, without achieving healing of the patient's wounds. It seems as though few other conventional treatment measures remain. At this juncture, consultation was requested for further ideas as to possible management options. An alternative to the measures which have been previously implemented might be to consider that the patient's wounds may be the result of pyoderma gangrenosum, or a related entity. Such a diagnosis is one by exclusion. To date, no specific diagnostic test has definitively identified the etiology of the patient's wounds. Virtually all treatments thus far have been unsuccessful in achieving wound healing. It is generally considered that an entity such as pyoderma gangrenosum does not respond to mechanical debridements, and in some cases may be exacerbated. Therefore, it may be reasonable to consider proceeding by an alternative pathway, discontinuing serial debridements and aggressive local wound care measures, and treating the patient more systemically by means of immunosuppressive therapy. This could take the form of topical steroids, tacrolimus ointment, etc. Alternatively, systemic steroids, cyclosporine, azathioprine, methotrexate, dapsone, or other immunosuppressive medications may be considered. I have discussed this approach as an alternative with the patient. He appears to be open minded to this approach as an alternative to the unsuccessful methods employed previously. Although there is no assurance, and some risk involved, this alternative approach may prove to be of benefit. Thus far, the traditional treatment approaches have not been successful, and an alternative course could be of benefit. This approach has been briefly discussed with Shabana Reeves NP, the patient's regular provider. Will defer management in this regard to her in regard to specific measures. While some risk may be assumed with regard to immunosuppression treatment, there is little to be lost in terms of the wound status, given that little has been achieved in this regard for quite some time. The patient is not a smoker. Influenza vaccine was not administered today. The patient weighs 210 pounds. He stands 6 feet 0 inches tall. His BMI is 28.5. Total time: 50 minutes. . If the option described above is to be implemented, it would best be conducted by means of a multidisciplinary approach. It would be envisioned that a specialist or specialists be involved who are familiar with the systemic medications related to immunosuppressive therapy, so as to focus on achieving the desired result, while minimizing the risk of complications. Knowledge of the actions, pharmacology, and pharmacodynamics of any of the implemented medications should be a prerequisite, as well as serial monitoring of their effects on the patient with respect to body systems. Furthermore, the patient should be fully informed of any risks involved in the implementation of such medications, with appropriate granted consent. Office Visits / Consults: [id number] Est
== END 2020-07-15 23:59 ==
LOC: WC 09:15
PROVIDERS: Family Provider Family Medicine; PCP Family Medicine; Referring Provider Nurse Practitioner Family; Visit Provider Nurse Practitioner Family
DX: L98.492 Non-pressure chronic ulcer of skin of other sites with fat layer exposed (principal); T86.829 Unspecified complication of skin graft (allograft) (autograft); E11.9 Type 2 diabetes mellitus without complications; G47.33 Obstructive sleep apnea (adult) (pediatric); I12.9 Hypertensive chronic kidney disease with stage 1 through stage 4 chronic kidney disease, or unspecified chronic kidney disease; E11.22 Type 2 diabetes mellitus with diabetic chronic kidney disease; N18.1 Chronic kidney disease, stage 1; Z82.3 Family history of stroke; Z98.890 Other specified postprocedural states
CPT/HCPCS: 99213; G0463

== ENCOUNTER 2020-08-03 09:15 | Outpatient (RCR) | payer OTHER, SELFPAY ==
[2020-07-08 15:12] VITALS: BMI 29.2
[2020-07-16 00:29] VITALS: BP 127/81; PULSE 68; RESP 16; TEMP 36.6; O2SAT 16
[2020-08-03 09:16] VITALS: BP 119/63; PULSE 72; RESP 16; TEMP 36.6; BMI 29.2
--- NOTE | 2020-08-03 11:31 | PCM.WC.PN ---
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 Operative culture - negative. He was discharged on Doxycycline and has finished them. Wound care - he has completed 10 applications of Epifix to the left lateral middle back ulcer. Daily collagen hydrogel covered with adaptic. He saw a therapeutic massage technician, Dr. Wilmer Hicks at [facility]. She did patch testing last week. He is allergic to Bee's wax. 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 She has started him on Tacrolimus 0.1% to be used on his ulcers daily. Prealbumin from 07/22/19 was 18.7. Encourage nutritonal supplementation with protein to help the healing process. His HgbA1c from 07/22/19 was 5.9. Right flank ulcer was surgically closed 01/17/20 and has developed some painful ulcerations. Wound culture from the left lateral middle back on 02/03/2020 was negative for aerobic and anaerobic growth. There was a repeat culture on 03/23/20 which showed MRSE. He was placed on Clindamycin and has completed them. Wound cultures from 05/04/20 from the right flank was negative for bacterial growth. The left back was positive MRSE and Corynebacterium amycolatum. He was started on Linzolid for the time being and the patient will think about his options and discuss them with his . Other option includes IV antibiotics. Today he denies any fevers and states his appetite is good. From Dr. Jerez's consult on 06/15/20: This is a 59-year-old male who has a very lengthy and complicated past medical history. His medical records have been reviewed in detail. He has been cared for at the [facility] for over 2 years. He has multiple wounds, which have failed to heal. In some cases, his wounds have become worse. They began as sebaceous cysts, which were surgically excised by his primary care physician in the office setting. Proper healing never occurred. Several surgical procedures have been performed, including a skin grafting procedure. A variety of treatment measures have been instituted all of which have been unsuccessful. These measures have included local wound care, skin substitutes, negative pressure wound therapy, hyperbaric oxygen therapy, serial debridements, antibiotic administration and response to positive culture results, etc. Wound biopsies have been performed, all of which have been negative for malignancy. A multidisciplinary approach has been implemented, and has included evaluation by the Plastic Surgery service and evaluation by specialist to evaluate possible autoimmune causes. Current management includes the use of Aquacel silver. The patient is currently taking linezolid for recent cultures positive for MRSE and corynebacterium species. Patient's medication list has been reviewed, and none of his current medications suggest wound healing inhibition. Patient is currently in the midst of evaluation by an medical records specialist as relates to his chronic, nonhealing wounds. The following portion of the patient's history is pre-existing and is as follows: Surgery 01/17/2020?surgical preparation right flank with excisional debridement of nonhealing painful infected diabetic ulcer of the right flank with 7 cm complex secondary wound closure. Operative culture - negative. He was discharged on Doxycycline and has finished them. Wound care - he has completed 10 applications of Epifix to the left lateral middle back ulcer. Silver dressing changes. Using chlorhexidine twice weekly. Prealbumin from 07/22/19 was 18.7. Encourage nutritonal supplementation with protein to help the healing process. His HgbA1c from 07/22/19 was 5.9. Right flank ulcer was surgically closed 01/17/20 and has developed some painful ulcerations. Wound culture from the left lateral middle back on 02/03/2020 was negative for aerobic and anaerobic growth. There was a repeat culture on 03/23/20 which showed MRSE. He was placed on Clindamycin and has completed them. Wound cultures from 05/04/20 from the right flank was negative for bacterial growth. The left back was positive MRSE and Corynebacterium amycolatum. He was started on Linzolid for the time being and the patient will think about his options and discuss them with his . Progress of Wound: Left middle lateral back ulcer is improved. Right middle lateral back ulcer remains healed. Right flank ulcer has multiple areas that are open but are starting to improve using the Tacrolimus. - Physical Exam Vital Signs Temp Pulse Resp BP Pulse Ox 98 F 72 16 119/63 16 08/03/20 09:16 08/03/20 09:16 08/03/20 09:16 08/03/20 09:16 07/16/20 00:29 General: Alert, Oriented x3, Cooperative HEENT: Atraumatic Oral: Moist Mucosa Lungs: Normal air movement Cardiovascular: Regular rate Abdomen: Bowel Sounds Present, Soft Extremities: No edema, Capillary Refill Less than 3 Seconds Skin: Ulcer/ Wound - Left lateral middle back ulcer is showing improvement. It is shallow, and decreasing in size. Wound Measurements and Assessment WC - Nurse 1 - General Ulcer Measurement Start: 08/03/20 09:16 Freq: Status: Active Protocol: Activity Type Activity Date Activity User E-Sign Co-Sign Detail Recorded Client Recorded Date Recorded By Document 08/03/20 09:16 [facility] [id number] 08/03/20 09:26 [facility] 08/03/20 09:16 Wound Center Nurse 1 [Ulcer Assessment] #9 R Lower Side Posterior -Combined with other wound No -Current Size (cm) - Length 0.1 -Current Size (cm) - Width 0.1 -Current Size (cm) - Depth 0.1 -Total Square Cm 0.01 -Photo Taken No -Epithelialization Large 67-100% -Tunneling No -Undermining/Tunneling No -Circular Undermining No -Exudate Amt Small -Exudate Type Serosanguineous -Wound Margin Distinct, Outline Attached -Texture (Mayra-wound Skin Appearance) Assessed, Scarring -Moisture (Mayra-wound Skin Appearance Assessed ) -Color (Mayra-wound Skin Appearance) Assessed -Temperature (Mayra-wound Skin No Abnormality Appearance) (Pt Warm) -Tenderness on Palpation (Mayra-wound No Skin Appearance) -Ulcer Cleansing Rinsed/ Irrigated with Saline -Foul Odor after Cleansing No #8 Right lower side Anterior -Combined with other wound No -Current Size (cm) - Length 0.7 -Current Size (cm) - Width 2.1 -Current Size (cm) - Depth 0.3 -Total Square Cm 1.47 -Photo Taken No -Epithelialization Medium 34-66% -Tunneling No -Undermining/Tunneling No -Circular Undermining No -Exudate Amt Small -Exudate Type Serosanguineous -Wound Margin Distinct, Outline Attached -Granulation Amt Medium (34-66%) -Granulation Quality Red -Slough/Fibrin Yes -Necrosis Amt Medium (34-66%) -Necrotic Tissue Type Adherent Slough -Texture (Mayra-wound Skin Appearance) Assessed, Scarring -Moisture (Mayra-wound Skin Appearance Assessed ) -Color (Mayra-wound Skin Appearance) Assessed -Temperature (Mayra-wound Skin No Abnormality Appearance) (Pt Warm) -Tenderness on Palpation (Mayra-wound No Skin Appearance) -Ulcer Cleansing Rinsed/ Irrigated with Saline 6. L lumbar back -Combined with other wound No -Current Size (cm) - Length 0.5 -Current Size (cm) - Width 1.3 -Current Size (cm) - Depth 0.2 -Total Square Cm 0.65 -Photo Taken No -Epithelialization Medium 34-66% -Tunneling No -Undermining/Tunneling No -Circular Undermining No -Exudate Amt Small -Exudate Type Serosanguineous -Wound Margin Distinct, Outline Attached -Granulation Amt Medium (34-66%) -Granulation Quality Red -Slough/Fibrin Yes -Necrosis Amt Medium (34-66%) -Texture (Mayra-wound Skin Appearance) Assessed, Scarring -Moisture (Mayra-wound Skin Appearance Assessed ) -Color (Mayra-wound Skin Appearance) Assessed -Temperature (Mayra-wound Skin No Abnormality Appearance) (Pt Warm) -Tenderness on Palpation (Mayra-wound Yes Skin Appearance) -Ulcer Cleansing Rinsed/ Irrigated with Saline -Foul Odor after Cleansing No WC - Nurse 2 - General Ulcer CM Notes Start: 08/03/20 09:16 Freq: Status: Active Protocol: Activity Type Activity Date Activity User E-Sign Co-Sign Detail Recorded Client Recorded Date Recorded By Document 08/03/20 09:42 [email or web address] [id number] 08/03/20 09:43 [facility] 08/03/20 09:42 Wound Center Nurse 2 [Procedure/Treatment] #9 R Lower Side Posterior -Correct Patient No -Correct Side, Site, Position No -Correct Procedure No -Procedure Performed No -Wound/Ulcer Outcome Not Healed #8 Right lower side Anterior -Correct Patient No -Correct Side, Site, Position No -Correct Procedure No -Procedure Performed No -Wound/Ulcer Outcome Not Healed 6. L lumbar back -Correct Patient No -Correct Side, Site, Position No -Correct Procedure No -Procedure Performed No -Wound/Ulcer Outcome Not Healed [See Physician Procedure note for Specifics] Pain Scale: 0-10 Numeric [Pain] -Is Patient Pain Free? Yes - Nurse 3 - General Ulcer D/C NN Start: 08/03/20 09:16 Freq: Status: Active Protocol: Activity Type Activity Date Activity User E-Sign Co-Sign Detail Recorded Client Recorded Date Recorded By Document 08/03/20 10:01 [facility] [id number] 08/03/20 10:02 [facility] 08/03/20 10:01 Wound Care Nurse 3 [Wound Dressing] #9 R Lower Side Posterior -Ulcer Cleansing Rinsed/ Irrigated with Saline -Foul Odor after Cleansing No -Other Dressing TACROLIMUS OINT -Primary Dressing Covered/Secured Secured with with Tape,Other -Other Covering ABD #8 Right lower side Anterior -Ulcer Cleansing Rinsed/ Irrigated with Saline -Foul Odor after Cleansing No -Primary Dressing Applied Other -Other Dressing TACROLIMUS -Primary Dressing Covered/Secured Secured with with Tape,Other -Other Covering ABD 6. L lumbar back -Ulcer Cleansing Rinsed/ Irrigated with Saline -Foul Odor after Cleansing No -Primary Dressing Applied Other -Other Dressing TACROLIMUS -Primary Dressing Covered/Secured Secured with with Tape,Other -Other Covering ABD [Post Procedure Tolerated] -Treatment Response Procedure Tolerated Well - Visit Discharge [Visit Discharge Information] -Discharge Condition Stable -Ambulatory Status Ambulatory -Transportation Private Auto Debridement Note Post-Debridement Measurements/Treatment - Nurse 2 - General Ulcer CM Notes Start: 08/03/20 09:16 Freq: Status: Active Protocol: Activity Type Activity Date Activity User E-Sign Co-Sign Detail Recorded Client Recorded Date Recorded By Document 08/03/20 09:42 [id number] 08/03/20 09:43 08/03/20 09:42 Wound Center Nurse 2 #9 R Lower Side Posterior -Correct Patient No -Correct Side, Site, Position No -Correct Procedure No -Procedure Performed No -Wound/Ulcer Outcome Not Healed #8 Right lower side Anterior -Correct Patient No -Correct Side, Site, Position No -Correct Procedure No -Procedure Performed No -Wound/Ulcer Outcome Not Healed 6. L lumbar back -Correct Patient No -Correct Side, Site, Position No -Correct Procedure No -Procedure Performed No -Wound/Ulcer Outcome Not Healed Pain Scale: 0-10 Numeric Is Patient Pain Free? Yes - Nurse 3 - General Ulcer D/C NN Start: 08/03/20 09:16 Freq: Status: Active Protocol: Activity Type Activity Date Activity User E-Sign Co-Sign Detail Recorded Client Recorded Date Recorded By Document 08/03/20 10:01 [facility] [id number] 08/03/20 10:02 [facility] 08/03/20 10:01 Wound Care Nurse 3 #9 R Lower Side Posterior -Ulcer Cleansing Rinsed/ Irrigated with Saline -Foul Odor after Cleansing No -Other Dressing TACROLIMUS OINT -Primary Dressing Covered/Secured with Secured with Tape,Other -Other Covering ABD #8 Right lower side Anterior -Ulcer Cleansing Rinsed/ Irrigated with Saline -Foul Odor after Cleansing No -Primary Dressing Applied Other -Other Dressing TACROLIMUS -Primary Dressing Covered/Secured with Secured with Tape,Other -Other Covering ABD 6. 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 Nonhealing diabetic ulcer left lateral middle back. 2. Nonhealing diabetic ulcers right flank, s/p surgical closure 01/17/2020. 3. Diabetes mellitus. Plan: Will be holding off on debridements at this time as he works with the [employer] at [facility]. His patch testing was done and it was found he was allergic to Bee's wax. Wound care - he has completed 10 applications of Epifix to the left lateral middle back ulcer. The therapeutic massage technician has started him on Tacrolimus 0.1% daily. It is improving his ulcer on both his left lateral middle back and right flank area. I spoke with the therapeutic massage technician, Dr. Wilmer Hicks at [facility], she would like to do patch testing, but she is thinking this most likely is Pyoderma Gangrenosum. She will treat him with the Tacrolimus 0.1%. I will hold off on referring him to Rheumatology until after his patch testing to see if she has another diagnosis besides Pyroderma Gangrenosum. 10 applications of Epifix to the left middle lateral back ulcer have been completed. Right middle lateral back ulcer remains healed. He has seen a [place] chiropracter/medical records specialist. He saw Dr. Jerez as a second opinion on the wound care in June. Follow up one month. Please contact us sooner if there are any issues. Dr. Jerez's plan from 06/15/20: It appears as though a variety of treatment measures have been implemented, all of which have been unsuccessful. The patient has been cared for at the [facility] for over 2 years, without achieving healing of the patient's wounds. It seems as though few other conventional treatment measures remain. At this juncture, consultation was requested for further ideas as to possible management options. An alternative to the measures which have been previously implemented might be to consider that the patient's wounds may be the result of pyoderma gangrenosum, or a related entity. Such a diagnosis is one by exclusion. To date, no specific diagnostic test has definitively identified the etiology of the patient's wounds. Virtually all treatments thus far have been unsuccessful in achieving wound healing. It is generally considered that an entity such as pyoderma gangrenosum does not respond to mechanical debridements, and in some cases may be exacerbated. Therefore, it may be reasonable to consider proceeding by an alternative pathway, discontinuing serial debridements and aggressive local wound care measures, and treating the patient more systemically by means of immunosuppressive therapy. This could take the form of topical steroids, tacrolimus ointment, etc. Alternatively, systemic steroids, cyclosporine, azathioprine, methotrexate, dapsone, or other immunosuppressive medications may be considered. I have discussed this approach as an alternative with the patient. He appears to be open minded to this approach as an alternative to the unsuccessful methods employed previously. Although there is no assurance, and some risk involved, this alternative approach may prove to be of benefit. Thus far, the traditional treatment approaches have not been successful, and an alternative course could be of benefit. This approach has been briefly discussed with Shabana Reeves NP, the patient's regular provider. Will defer management in this regard to her in regard to specific measures. While some risk may be assumed with regard to immunosuppression treatment, there is little to be lost in terms of the wound status, given that little has been achieved in this regard for quite some time. The patient is not a smoker. Influenza vaccine was not administered today. The patient weighs 210 pounds. He stands 6 feet 0 inches tall. His BMI is 28.5. Total time: 50 minutes. . If the option described above is to be implemented, it would best be conducted by means of a multidisciplinary approach. It would be envisioned that a specialist or specialists be involved who are familiar with the systemic medications related to immunosuppressive therapy, so as to focus on achieving the desired result, while minimizing the risk of complications. Knowledge of the actions, pharmacology, and pharmacodynamics of any of the implemented medications should be a prerequisite, as well as serial monitoring of their effects on the patient with respect to body systems. Furthermore, the patient should be fully informed of any risks involved in the implementation of such medications, with appropriate granted consent. Office Visits / Consults: [id number] OV [id number] Est
== END 2020-08-14 23:59 ==
LOC: WC 09:15
PROVIDERS: Family Provider Family Medicine; PCP Family Medicine; Referring Provider Nurse Practitioner Family; Visit Provider Nurse Practitioner Family
DX: L98.492 Non-pressure chronic ulcer of skin of other sites with fat layer exposed (principal); T86.829 Unspecified complication of skin graft (allograft) (autograft); E11.9 Type 2 diabetes mellitus without complications
CPT/HCPCS: 99213; G0463

== ENCOUNTER → 2020-08-18 | Outpatient (CLI) | payer OTHER, SELFPAY ==
[2020-08-18 15:28] VITALS: BMI 29.2
== END | disposition home or self-care (01) ==
LOC: LABSPEC 08-19 13:54
PROVIDERS: PCP Family Medicine; Visit Provider Nurse Practitioner Family
DX: T14.8XXA Other injury of unspecified body region, initial encounter (principal)
CPT/HCPCS: 87070; 87075; 87077; 87205

== ENCOUNTER 2020-09-08 13:00 | Outpatient (RCR) | payer OTHER, SELFPAY ==
[2020-08-15 00:29] VITALS: BP 119/63; PULSE 72; RESP 16; TEMP 36.6; O2SAT 16
[2020-08-18 15:28] VITALS: BP 120/68; PULSE 92; RESP 18; TEMP 37.2; BMI 29.2
--- NOTE | 2020-08-19 21:31 | PCM.WC.PN ---
History of Present Illness Date of Service: 08/18/20 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: Nonhealing ulcerations of the middle back and flanks History of Wound: Surgery 01/17/2020?surgical preparation right flank with excisional debridement of nonhealing painful infected diabetic ulcer of the right flank with 7 cm complex secondary wound closure. Operative culture - negative. He was discharged on Doxycycline and has finished them. Wound care - he has completed 10 applications of Epifix to the left lateral middle back ulcer. Daily collagen hydrogel covered with adaptic. He saw a lap maker, Dr. Wilmer Hicks at [facility]. She did patch testing on him. He is allergic to Bee's wax. 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 She has started him on Tacrolimus 0.1% to be used on his ulcers daily. Prealbumin from 07/22/19 was 18.7. Encourage nutritonal supplementation with protein to help the healing process. His HgbA1c from 07/22/19 was 5.9. Right flank ulcer was surgically closed 01/17/20 and has developed some painful ulcerations. Wound culture from the left lateral middle back on 02/03/2020 was negative for aerobic and anaerobic growth. There was a repeat culture on 03/23/20 which showed MRSE. He was placed on Clindamycin and has completed them. Wound cultures from 05/04/20 from the right flank was negative for bacterial growth. The left back was positive MRSE and Corynebacterium amycolatum. He was started on Linzolid which he has completed. He comes in today with increased pain. Wound cultures obtained, 08/18/20. Today he denies any fevers and states his appetite is good. From Dr. Jerez's consult on 06/15/20: This is a 59-year-old male who has a very lengthy and complicated past medical history. His medical records have been reviewed in detail. He has been cared for at the [facility] for over 2 years. He has multiple wounds, which have failed to heal. In some cases, his wounds have become worse. They began as sebaceous cysts, which were surgically excised by his primary care physician in the office setting. Proper healing never occurred. Several surgical procedures have been performed, including a skin grafting procedure. A variety of treatment measures have been instituted all of which have been unsuccessful. These measures have included local wound care, skin substitutes, negative pressure wound therapy, hyperbaric oxygen therapy, serial debridements, antibiotic administration and response to positive culture results, etc. Wound biopsies have been performed, all of which have been negative for malignancy. A multidisciplinary approach has been implemented, and has included evaluation by the Plastic Surgery service and evaluation by specialist to evaluate possible autoimmune causes. Current management includes the use of Aquacel silver. The patient is currently taking linezolid for recent cultures positive for MRSE and corynebacterium species. Patient's medication list has been reviewed, and none of his current medications suggest wound healing inhibition. Patient is currently in the midst of evaluation by an armor reconnaissance vehicle driver as relates to his chronic, nonhealing wounds. The following portion of the patient's history is pre-existing and is as follows: Surgery 01/17/2020?surgical preparation right flank with excisional debridement of nonhealing painful infected diabetic ulcer of the right flank with 7 cm complex secondary wound closure. Operative culture - negative. He was discharged on Doxycycline and has finished them. Wound care - he has completed 10 applications of Epifix to the left lateral middle back ulcer. Silver dressing changes. Using chlorhexidine twice weekly. Prealbumin from 07/22/19 was 18.7. Encourage nutritonal supplementation with protein to help the healing process. His HgbA1c from 07/22/19 was 5.9. Right flank ulcer was surgically closed 01/17/20 and has developed some painful ulcerations. Wound culture from the left lateral middle back on 02/03/2020 was negative for aerobic and anaerobic growth. There was a repeat culture on 03/23/20 which showed MRSE. He was placed on Clindamycin and has completed them. Wound cultures from 05/04/20 from the right flank was negative for bacterial growth. The left back was positive MRSE and Corynebacterium amycolatum. He was started on Linzolid for the time being and the patient will think about his options and discuss them with his . Progress of Wound: Left middle lateral back ulcer is improved.? Right middle lateral back ulcer remains healed. Right flank ulcer has multiple areas that are open but are starting to improve using the Tacrolimus. Subjective Subjective: He comes in today with increasing pain and discomfort at his ulcer sites, especially on the right anterior flank ulcer. He is concerned he is getting an infection. 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 His patch testing was done and it was found he was allergic to Bee's wax.??Wound care - he has completed 10 applications of Epifix to the left lateral middle back ulcer.? The lap maker has started him on Tacrolimus 0.1% daily.? It is improving his ulcer on both his left lateral middle back and right flank area.? I spoke with the lap maker, Dr. Wilmer Hicks at [facility], she completed patch testing which showed he is allergic to Bee wax, but she is thinking this most likely is Pyoderma Gangrenosum.? She will treat him with the Tacrolimus 0.1%.? 10 applications of Epifix to the left middle lateral back ulcer have been completed.? Right middle lateral back ulcer remains healed.? He has seen a [employer] chiropracter/armor reconnaissance vehicle driver.? He saw Dr. Jerez as a second opinion on the wound care in June, his plan is below.? He came in today with concerns about possible infection due to increased pain.? Selective debridement performed with saline moistened gauze to try to get biofilm before wound culture obtained on 08/18/20.? Depending on the results of the wound culture, it may necessitate the need for treatment with antibiotics. .? Follow up two weeks.? Please contact us sooner if there are any issues.?? Dr. Jerez's plan from 06/15/20:? It appears as though a variety of treatment measures have been implemented, all of which have been unsuccessful.? The patient has been cared for at the [facility] for over 2 years, without achieving healing of the patient's wounds.? It seems as though few other conventional treatment measures remain.? At this juncture, consultation was requested for further ideas as to possible management options.? An alternative to the measures which have been previously implemented might be to consider that the patient's wounds may be the result of pyoderma gangrenosum, or a related entity.? Such a diagnosis is one by exclusion.? To date, no specific diagnostic test has definitively identified the etiology of the patient's wounds.? Virtually all treatments thus far have been unsuccessful in achieving wound healing.? It is generally considered that an entity such as pyoderma gangrenosum does not respond to mechanical debridements, and in some cases may be exacerbated.? Therefore, it may be reasonable to consider proceeding by an alternative pathway, discontinuing serial debridements and aggressive local wound care measures, and treating the patient more systemically by means of immunosuppressive therapy.? This could take the form of topical steroids, tacrolimus ointment, etc. Alternatively, systemic steroids, cyclosporine, azathioprine, methotrexate, dapsone, or other immunosuppressive medications may be considered.? I have discussed this approach as an alternative with the patient.? He appears to be open minded to this approach as an alternative to the unsuccessful methods employed previously.? Although there is no assurance, and some risk involved, this alternative approach may prove to be of benefit. Thus far, the traditional treatment approaches have not been successful, and an alternative course could be of benefit.? This approach has been briefly discussed with Shabana Reeves NP, the patient's regular provider.? Will defer management in this regard to her in regard to specific measures.? While some risk may be assumed with regard to immunosuppression treatment, there is little to be lost in terms of the wound status, given that little has been achieved in this regard for quite some time.? The patient is not a smoker.? Charges/Coding Addendum Addendum: Selective debridement - 43735 Physical Exam Const alert and oriented x3 General Appearance: cooperative HEENT normocephalic Head and Scalp: atraumatic Eyes PERRL Lymph Lymphatic: no lymphadenopathy noted Resp normal respiratory effort Cardio regular rate GI non-tender and non-distended Skin No no wounds Wounds: wounds noted Wound Narrative: Left middle back ulcer has increased sensitivity with light touch.? No odor.? Color is pink.? Overall appears stable. Right flank ulcer cluster is extremely tender to light palpation, especially the anterior portion.? There are areas with dark purple spots (approx 1-2 mm diameter) that are extremely tender.? No odor.? Wound culture obtained from both ulcers. Neuro CN's II-XII intact bilaterally Psych affect normal Appearance: grossly normal and well kempt Debridement Note Debridement Note Post-Debridement Measurements and Additional Note: Post-Debridement Measurements/Treatment WC - Nurse 2 - General Ulcer CM Notes Start: 08/18/20 15:27 Freq: Status: Active Protocol: Activity Type Activity Date Activity User E-Sign Co-Sign Detail Recorded Client Recorded Date Recorded By Document 08/18/20 15:59 PL [id number] 08/18/20 16:03 PL 08/18/20 15:59 Wound Center Nurse 2 #9 R Lower Side Posterior -Time 15:35 -Correct Patient Yes -Correct Side, Site, Position Yes -Correct Procedure Yes -Procedure Performed Yes -Type of Procedure Debridement -Clinical Debridement Epidermis / Dermis -Tissue Removed Subcutaneous -Post Debridement (cm) - Length 2.7 -Post Debridement (cm) - Width 15.8 -Post Debridement (cm) - Depth 0.2 -Total Square (Post) (cm) 42.66 -Area of Debridement (cm) - Length 2.7 -Area of Debridement (cm) - Width 15.8 -Total Square (Area) (cm) 42.66 -Tunneling No -Undermining/Tunneling No -Circular Undermining No -Wound/Ulcer Outcome Not Healed -Ulcer Cleansing Rinsed/ Irrigated with Saline -Foul Odor after Cleansing No -Bioengineered Tissue No -Bleeding Controlled with Pressure -Treatment Response Procedure Tolerated Well -Debridement - Open, 1st 20sq cm Yes -Debridement, Open, ea addt'l 20sq cm 2 or part thereof -Debridement - Subq, 1st 20sq cm No 6. L lumbar back -Time 15:35 -Correct Patient Yes -Correct Side, Site, Position Yes -Correct Procedure Yes -Procedure Performed Yes -Type of Procedure Debridement -Clinical Debridement Subcutaneous -Tissue Removed Subcutaneous -Post Debridement (cm) - Length 4.4 -Post Debridement (cm) - Width 1.2 -Post Debridement (cm) - Depth 0.2 -Total Square (Post) (cm) 5.28 -Area of Debridement (cm) - Length 4.4 -Area of Debridement (cm) - Width 1.2 -Total Square (Area) (cm) 5.28 -Tunneling No -Undermining/Tunneling No -Circular Undermining No -Wound/Ulcer Outcome Not Healed -Ulcer Cleansing Rinsed/ Irrigated with Saline -Foul Odor after Cleansing No -Bioengineered Tissue No -Debridement - Subq, 1st 20sq cm No Pain Scale: 0-10 Numeric Is Patient Pain Free? Yes Wound debrided: Left middle back ulcer Laterality: Left Type of Debridement: Selective debridement Depth: in the subcutaneous layer Percentage of wound debrided: 100 Instrument Used: - Severity: Fat Layer Exposed Amount of bleeding with debridement: None Debridement Free Text: Selective debridement with saline moistened gauze to attempt to get any skin contaminant removed before culturing the ulcer. Additional Wound Wound debrided: Right flank ulcer cluster Laterality: Right Type of Debridement: Selective debridement Depth: in the subcutaneous layer Percentage of wound debrided: 100 Instrument Used: - (saline moistened gauze. ) Tissue Removed: Selective debridement with saline moistened gauze to attempt to get any ski Severity: Fat Layer Exposed Amount of bleeding with debridement: Mild Bleeding Controlled with: Pressure Patient tolerated procedure: Patient tolerated procedure well
[2020-08-24 08:22] VITALS: BP 125/70; PULSE 94; RESP 20; TEMP 36.6; BMI 29.2
--- NOTE | 2020-08-24 12:26 | PCM.WC.PN ---
History of Present Illness Date of Service: 08/24/20 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: Nonhealing ulcerations of the middle back and flanks History of Wound: Surgery 01/17/2020?surgical preparation right flank with excisional debridement of nonhealing painful infected diabetic ulcer of the right flank with 7 cm complex secondary wound closure. Operative culture - negative. He was discharged on Doxycycline and has finished them. Wound care - he has completed 10 applications of Epifix to the left lateral middle back ulcer. Daily collagen hydrogel covered with adaptic. He saw a community educator, Dr. Wilmer Hicks at [facility]. She did patch testing on him. He is allergic to Bee's wax. 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 She has started him on Tacrolimus 0.1% to be used on his ulcers daily. Wound culture obtained on 08/18/20 due to increased pain of both the middle left back ulcer and the right flank ulcer cluster. Culture results positive for Corynebacterium amycolatum. Will start him on Augmentin for 14 days. Prealbumin from 07/22/19 was 18.7. Encourage nutritonal supplementation with protein to help the healing process. His HgbA1c from 07/22/19 was 5.9. Right flank ulcer was surgically closed 01/17/20 and has developed some painful ulcerations. Wound culture from the left lateral middle back on 02/03/2020 was negative for aerobic and anaerobic growth. There was a repeat culture on 03/23/20 which showed MRSE. He was placed on Clindamycin and has completed them. Wound cultures from 05/04/20 from the right flank was negative for bacterial growth. The left back was positive MRSE and Corynebacterium amycolatum. He was started on Linzolid which he has completed. He comes in today with increased pain. Wound cultures obtained, 08/18/20. Today he denies any fevers and states his appetite is good. From Dr. Jerez's consult on 06/15/20: This is a 59-year-old male who has a very lengthy and complicated past medical history. His medical records have been reviewed in detail. He has been cared for at the [facility] for over 2 years. He has multiple wounds, which have failed to heal. In some cases, his wounds have become worse. They began as sebaceous cysts, which were surgically excised by his primary care physician in the office setting. Proper healing never occurred. Several surgical procedures have been performed, including a skin grafting procedure. A variety of treatment measures have been instituted all of which have been unsuccessful. These measures have included local wound care, skin substitutes, negative pressure wound therapy, hyperbaric oxygen therapy, serial debridements, antibiotic administration and response to positive culture results, etc. Wound biopsies have been performed, all of which have been negative for malignancy. A multidisciplinary approach has been implemented, and has included evaluation by the Plastic Surgery service and evaluation by specialist to evaluate possible autoimmune causes. Current management includes the use of Aquacel silver. The patient is currently taking linezolid for recent cultures positive for MRSE and corynebacterium species. Patient's medication list has been reviewed, and none of his current medications suggest wound healing inhibition. Patient is currently in the midst of evaluation by an cad design engineer as relates to his chronic, nonhealing wounds. The following portion of the patient's history is pre-existing and is as follows: Surgery 01/17/2020?surgical preparation right flank with excisional debridement of nonhealing painful infected diabetic ulcer of the right flank with 7 cm complex secondary wound closure. Operative culture - negative. He was discharged on Doxycycline and has finished them. Wound care - he has completed 10 applications of Epifix to the left lateral middle back ulcer. Silver dressing changes. Using chlorhexidine twice weekly. Prealbumin from 07/22/19 was 18.7. Encourage nutritonal supplementation with protein to help the healing process. His HgbA1c from 07/22/19 was 5.9. Right flank ulcer was surgically closed 01/17/20 and has developed some painful ulcerations. Wound culture from the left lateral middle back on 02/03/2020 was negative for aerobic and anaerobic growth. There was a repeat culture on 03/23/20 which showed MRSE. He was placed on Clindamycin and has completed them. Wound cultures from 05/04/20 from the right flank was negative for bacterial growth. The left back was positive MRSE and Corynebacterium amycolatum. He was started on Linzolid for the time being and the patient will think about his options and discuss them with his . Progress of Wound: Left middle lateral back ulcer is improved.? Right middle lateral back ulcer remains healed. Right flank ulcer has multiple areas that are open, the anterior ulcer has increased purple color to the center and is very sensitive to light palpation. Objective Data Objective Data Vital Signs: Vital Signs Temp Pulse Resp BP Pulse Ox 97.9 F 94 20 H 125/70 H 16 08/24/20 08:22 08/24/20 08:22 08/24/20 08:22 08/24/20 08:22 08/15/20 00:29 Body Mass Index (BMI) 29.2 Finger Stick Blood Glucose 134 Lab / Micro Data Micro: Microbiology 08/18/20 15:45 Wound Abcess - Other Gram Stain - Final 08/18/20 15:45 Wound Abcess - Other Wound Culture - Final Corynebacterium amycolatum 08/18/20 15:45 Wound Abcess - Other Anaerobic Culture - Preliminary Assessment & Plan Assessment/Plan 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: (2) Unspecified complication of skin graft (allograft) (autograft): (3) Type 2 diabetes mellitus: PLAN: Will be holding off on debridements at this time as he works with the [employer] at [facility]. His patch testing was done and it was found he was allergic to Bee's wax.??Wound care - he has completed 10 applications of Epifix to the left lateral middle back ulcer.? The community educator has started him on Tacrolimus 0.1% daily.? It is improving his ulcer on both his left lateral middle back and right flank area.? I spoke with the community educator, Dr. Wilmer Hicks at [facility], she completed patch testing which showed he is allergic to Bee wax, but she is thinking this most likely is Pyoderma Gangrenosum.?Right middle lateral back ulcer remains healed.? He has seen a Can Repairer chiropractor/cad design engineer.? He saw Dr. Jerez as a second opinion on the wound care in June, his plan is below.?Wound culture from each ulcer obtained on 08/18/20 due to increased pain. Both the left middle back ulcer and the right flank ulcer cluster positive for Corynebacterium amycolatum. Anaerobic cultures still pending at this time. He was started on Augmentin for 14 days.? Follow up 2 weeks. He sees Derm 09/07/20.?? Dr. Jerez's plan from 06/15/20:? It appears as though a variety of treatment measures have been implemented, all of which have been unsuccessful.? The patient has been cared for at the [facility] for over 2 years, without achieving healing of the patient's wounds.? It seems as though few other conventional treatment measures remain.? At this juncture, consultation was requested for further ideas as to possible management options.? An alternative to the measures which have been previously implemented might be to consider that the patient's wounds may be the result of pyoderma gangrenosum, or a related entity.? Such a diagnosis is one by exclusion.? To date, no specific diagnostic test has definitively identified the etiology of the patient's wounds.? Virtually all treatments thus far have been unsuccessful in achieving wound healing.? It is generally considered that an entity such as pyoderma gangrenosum does not respond to mechanical debridements, and in some cases may be exacerbated.? Therefore, it may be reasonable to consider proceeding by an alternative pathway, discontinuing serial debridements and aggressive local wound care measures, and treating the patient more systemically by means of immunosuppressive therapy.? This could take the form of topical steroids, tacrolimus ointment, etc. Alternatively, systemic steroids, cyclosporine, azathioprine, methotrexate, dapsone, or other immunosuppressive medications may be considered.? I have discussed this approach as an alternative with the patient.? He appears to be open minded to this approach as an alternative to the unsuccessful methods employed previously.? Although there is no assurance, and some risk involved, this alternative approach may prove to be of benefit. Thus far, the traditional treatment approaches have not been successful, and an alternative course could be of benefit.? This approach has been briefly discussed with Shabana Reeves NP, the patient's regular provider.? Will defer management in this regard to her in regard to specific measures.? While some risk may be assumed with regard to immunosuppression treatment, there is little to be lost in terms of the wound status, given that little has been achieved in this regard for quite some time.? The patient is not a smoker.? Charges/Coding Visit Charges Office Visits / Consults: 90086 OV L3 Est Physical Exam Const alert and oriented x3 General Appearance: cooperative HEENT normocephalic Eyes PERRL Resp normal respiratory effort Cardio regular rate Extremity normal capillary refill Skin Wound Narrative: Left middle back ulcer is stable, continues to be sensitive to light palpation. There are areas that are healing in a lace like pattern. Right flank cluster ulcers are increased in sensitivity to palpation. The anterior portion has a purple tone to it with small, dark purple [place] areas, almost like large petechia. Neuro CN's II-XII intact bilaterally Psych Appearance: grossly normal and well kempt Debridement Note Debridement Note Post-Debridement Measurements and Additional Note: Post-Debridement Measurements/Treatment WC - Nurse 1 - General Ulcer Assessment Start: 08/18/20 15:27 Freq: Status: Active Protocol: ASHLEY Activity Type Activity Date Activity User E-Sign Co-Sign Detail Recorded Client Recorded Date Recorded By Document 08/18/20 15:28 PL [id number] 08/18/20 15:59 PL Document 08/24/20 08:22 DL [id number] 08/24/20 08:30 DL 08/18/20 08/24/20 15:28 08:22 - Today's Visit Information Type of service Follow-up Visit Follow-up Visit (Physician/HOUSEKEEPER AND LAUNDRY ASSISTANT (Physician/HOUSEKEEPER AND LAUNDRY ASSISTANT ) ) Arrival Mode Ambulatory Ambulatory Transfer Assistance None None Patient Identification Verified (Name & Yes ) Patient Requires Transmission-Based No No Precautions Safety Precautions NA Height and Weight Body Mass Index (BMI) 29.2 29.2 BMI Classification Overweight Overweight Vital Signs Temperature (97.8 F-99.1 F) 99.0 F 97.9 F Temperature Source Temporal Temporal Pulse Rate (60-100) 92 94 Pulse Location Monitor Respiratory Rate (12-18) 18 20 H Respiratory rate source Observation Blood Pressure (90/60-120/80) 120/68 125/70 H Blood Pressure Mean (mm Hg) 85 88 Source Monitor History Since Last Visit- (Skip if this is Patient's initial visit) Have you changed medications since your No No last visit? Any new allergies or adverse reactions No No Had a fall/change in ADL's that may No No increase risk of falls Signs or symptoms of abuse and/or No No neglect since last visit Have you been in the hospital since your No No last visit? Has dressing in place as prescribed No Yes Has compression in place as prescribed N/A N/A Has offloadiing in place as prescribed N/A N/A Experienced any changes in pain level or No No management Pain Scale: 0-10 Numeric Is Patient Pain Free? Yes Yes WC - Nurse 1 - General Ulcer Measurement Start: 08/18/20 15:27 Freq: Status: Active Protocol: Activity Type Activity Date Activity User E-Sign Co-Sign Detail Recorded Client Recorded Date Recorded By Document 08/24/20 08:22 DL [id number] 08/24/20 08:30 DL 08/24/20 08:22 Wound Center Nurse 1 #9 R Lower Side Posterior -Current Size (cm) - Length 9.4 -Current Size (cm) - Width 2.3 -Current Size (cm) - Depth 0.1 -Total Square Cm 21.62 -Photo Taken No -Exudate Amt Small -Wound Margin Indistinct, Non -Visible -Granulation Amt Large (67-100%) -Granulation Quality Red -Necrosis Amt None Present (0 %) -Structure Exposed N/A -Texture (Mayra-wound Skin Appearance) Scarring -Moisture (Mayra-wound Skin Appearance) No Abnormality -Color (Mayra-wound Skin Appearance) Erythema,Rubor -Temperature (Myara-wound Skin No Abnormality Appearance) (Pt Warm) -Tenderness on Palpation (Mayra-wound No Skin Appearance) -Ulcer Cleansing Wound Cleanser -Foul Odor after Cleansing No #8 Right lower side Anterior -Current Size (cm) - Length 2.2 -Current Size (cm) - Width 1.1 -Current Size (cm) - Depth 0.1 -Total Square Cm 2.42 -Photo Taken No -Exudate Amt Small -Exudate Type Serosanguineous -Wound Margin Indistinct, Non -Visible -Granulation Amt Large (67-100%) -Granulation Quality Red -Necrosis Amt None Present (0 %) -Structure Exposed N/A -Texture (Mayra-wound Skin Appearance) Scarring -Moisture (Mayra-wound Skin Appearance) No Abnormality -Color (Mayra-wound Skin Appearance) Hemosiderin Staining,Rubor -Temperature (Mayra-wound Skin No Abnormality Appearance) (Pt Warm) -Tenderness on Palpation (Mayra-wound No Skin Appearance) -Ulcer Cleansing Wound Cleanser -Foul Odor after Cleansing No 6. L lumbar back -Current Size (cm) - Length 3 -Current Size (cm) - Width 1.2 -Current Size (cm) - Depth 0.1 -Total Square Cm 3.6 -Photo Taken No -Exudate Amt Small -Exudate Type Serosanguineous -Wound Margin Indistinct, Non -Visible -Granulation Amt Large (67-100%) -Granulation Quality Red -Necrosis Amt None Present (0 %) -Necrotic Tissue Type Adherent Slough -Texture (Mayra-wound Skin Appearance) Scarring -Moisture (Mayra-wound Skin Appearance) No Abnormality -Color (Mayra-wound Skin Appearance) Erythema,Rubor -Temperature (Mayra-wound Skin No Abnormality Appearance) (Pt Warm) -Tenderness on Palpation (Mayra-wound No Skin Appearance) -Ulcer Cleansing Wound Cleanser -Foul Odor after Cleansing No WC - Nurse 2 - General Ulcer CM Notes Start: 08/18/20 15:27 Freq: Status: Active Protocol: Activity Type Activity Date Activity User E-Sign Co-Sign Detail Recorded Client Recorded Date Recorded By Document 08/18/20 15:59 PL [id number] 08/18/20 16:03 PL Document 08/24/20 08:38 [id number] 08/24/20 08:41 08/18/20 08/24/20 15:59 08:38 Wound Center Nurse 2 #9 R Lower Side Posterior -Time 15:35 -Correct Patient Yes No -Correct Side, Site, Position Yes No -Correct Procedure Yes No -Procedure Performed Yes No -Type of Procedure Debridement -Clinical Debridement Epidermis / Dermis -Tissue Removed Subcutaneous -Post Debridement (cm) - Length 2.7 -Post Debridement (cm) - Width 15.8 -Post Debridement (cm) - Depth 0.2 -Total Square (Post) (cm) 42.66 -Area of Debridement (cm) - Length 2.7 -Area of Debridement (cm) - Width 15.8 -Total Square (Area) (cm) 42.66 -Tunneling No -Undermining/Tunneling No -Circular Undermining No -Wound/Ulcer Outcome Not Healed Not Healed -Ulcer Cleansing Rinsed/ Irrigated with Saline -Foul Odor after Cleansing No -Bioengineered Tissue No -Bleeding Controlled with Pressure -Treatment Response Procedure Tolerated Well -Debridement - Open, 1st 20sq cm Yes -Debridement, Open, ea addt'l 20sq cm 2 or part thereof -Debridement - Subq, 1st 20sq cm No #8 Right lower side Anterior -Correct Patient No -Correct Side, Site, Position No -Correct Procedure No -Procedure Performed No -Wound/Ulcer Outcome Not Healed 6. L lumbar back -Time 15:35 -Correct Patient Yes No -Correct Side, Site, Position Yes No -Correct Procedure Yes No -Procedure Performed Yes No -Type of Procedure Debridement -Clinical Debridement Subcutaneous -Tissue Removed Subcutaneous -Post Debridement (cm) - Length 4.4 -Post Debridement (cm) - Width 1.2 -Post Debridement (cm) - Depth 0.2 -Total Square (Post) (cm) 5.28 -Area of Debridement (cm) - Length 4.4 -Area of Debridement (cm) - Width 1.2 -Total Square (Area) (cm) 5.28 -Tunneling No -Undermining/Tunneling No -Circular Undermining No -Wound/Ulcer Outcome Not Healed Not Healed -Ulcer Cleansing Rinsed/ Irrigated with Saline -Foul Odor after Cleansing No -Bioengineered Tissue No -Debridement - Subq, 1st 20sq cm No Pain Scale: 0-10 Numeric Is Patient Pain Free? Yes Yes - Nurse 3 - General Ulcer D/C NN Start: 08/18/20 15:27 Freq: Status: Active Protocol: Activity Type Activity Date Activity User E-Sign Co-Sign Detail Recorded Client Recorded Date Recorded By Document 08/24/20 09:02 [email or web address] [id number] 08/24/20 09:03 YOSELYN 08/24/20 09:02 Wound Care Nurse 3 #9 R Lower Side Posterior -Ulcer Cleansing Rinsed/ Irrigated with Saline -Primary Dressing Covered/Secured with Dry Gauze, Secured with Tape 6. L lumbar back -Primary Dressing Covered/Secured with Dry Gauze, Secured with Tape Pain Scale: 0-10 Numeric Is Patient Pain Free? Yes - Visit Discharge Discharge Condition Stable Ambulatory Status Ambulatory Transportation Private Auto No debridement was completed: No debridement was completed today
--- NOTE | 2020-09-08 15:59 | PCM.WC.PN ---
History of Present Illness Date of Service: 09/08/20 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: Nonhealing ulcerations of the middle back and flanks History of Wound: Surgery 01/17/2020?surgical preparation right flank with excisional debridement of nonhealing painful infected diabetic ulcer of the right flank with 7 cm complex secondary wound closure. Operative culture - negative. He was discharged on Doxycycline and has finished them. Wound care - he has completed 10 applications of Epifix to the left lateral middle back ulcer. He saw a [facility] bpm consultant, Dr. Wilmer Hicks at [facility]. She did patch testing on him. He is allergic to Bee's wax. 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 She has recently biopsied his flank on 09/07/20, awaiting those results. She has started him on Tacrolimus 0.1% to be used on his ulcers daily. Wound culture obtained on 08/18/20 due to increased pain of both the middle left back ulcer and the right flank ulcer cluster. Culture results positive for Corynebacterium amycolatum and Anaerobic cocci. Will start him on Augmentin. Prealbumin from 07/22/19 was 18.7. Encourage nutritonal supplementation with protein to help the healing process. His HgbA1c from 07/22/19 was 5.9. Right flank ulcer was surgically closed 01/17/20 and has developed some painful ulcerations. Wound culture from the left lateral middle back on 02/03/2020 was negative for aerobic and anaerobic growth. There was a repeat culture on 03/23/20 which showed MRSE. He was placed on Clindamycin and has completed them. Wound cultures from 05/04/20 from the right flank was negative for bacterial growth. The left back was positive MRSE and Corynebacterium amycolatum. He was started on Linzolid which he has completed. He comes in today with increased pain. Wound cultures obtained, 08/18/20. Today he denies any fevers and states his appetite is good. From Dr. Jerez's consult on 06/15/20: This is a 59-year-old male who has a very lengthy and complicated past medical history. His medical records have been reviewed in detail. He has been cared for at the [facility] for over 2 years. He has multiple wounds, which have failed to heal. In some cases, his wounds have become worse. They began as sebaceous cysts, which were surgically excised by his primary care physician in the office setting. Proper healing never occurred. Several surgical procedures have been performed, including a skin grafting procedure. A variety of treatment measures have been instituted all of which have been unsuccessful. These measures have included local wound care, skin substitutes, negative pressure wound therapy, hyperbaric oxygen therapy, serial debridements, antibiotic administration and response to positive culture results, etc. Wound biopsies have been performed, all of which have been negative for malignancy. A multidisciplinary approach has been implemented, and has included evaluation by the Plastic Surgery service and evaluation by specialist to evaluate possible autoimmune causes. Current management includes the use of Aquacel silver. The patient is currently taking linezolid for recent cultures positive for MRSE and corynebacterium species. Patient's medication list has been reviewed, and none of his current medications suggest wound healing inhibition. Patient is currently in the midst of evaluation by an limited radiology technician as relates to his chronic, nonhealing wounds. The following portion of the patient's history is pre-existing and is as follows: Surgery 01/17/2020?surgical preparation right flank with excisional debridement of nonhealing painful infected diabetic ulcer of the right flank with 7 cm complex secondary wound closure. Operative culture - negative. He was discharged on Doxycycline and has finished them. Wound care - he has completed 10 applications of Epifix to the left lateral middle back ulcer. Silver dressing changes. Using chlorhexidine twice weekly. Prealbumin from 07/22/19 was 18.7. Encourage nutritonal supplementation with protein to help the healing process. His HgbA1c from 07/22/19 was 5.9. Right flank ulcer was surgically closed 01/17/20 and has developed some painful ulcerations. Wound culture from the left lateral middle back on 02/03/2020 was negative for aerobic and anaerobic growth. There was a repeat culture on 03/23/20 which showed MRSE. He was placed on Clindamycin and has completed them. Wound cultures from 05/04/20 from the right flank was negative for bacterial growth. The left back was positive MRSE and Corynebacterium amycolatum. He was started on Linzolid for the time being and the patient will think about his options and discuss them with his . Progress of Wound: Left middle lateral back ulcer is improved.? Right middle lateral back ulcer remains healed. Right flank ulcer has multiple areas that are open, the anterior ulcer has increased purple color to the center and is very sensitive to light palpation. Objective Data Objective Data Vital Signs: Vital Signs Temp Pulse Resp BP Pulse Ox 97.9 F 94 20 H 125/70 H 16 08/24/20 08:22 08/24/20 08:22 08/24/20 08:22 08/24/20 08:22 08/15/20 00:29 Body Mass Index (BMI) 29.2 Lab / Micro Data Micro: Microbiology 08/18/20 15:45 Wound Abcess - Other Gram Stain - Final 08/18/20 15:45 Wound Abcess - Other Wound Culture - Final Corynebacterium amycolatum 08/18/20 15:45 Wound Abcess - Other Anaerobic Culture - Final Anaerobic cocci Charges/Coding Visit Charges Office Visits / Consults: 73132 OV L3 Est Physical Exam Const alert and oriented x3 HEENT normocephalic Eyes PERRL Resp normal respiratory effort Cardio regular rate Extremity normal capillary refill Skin Wound Narrative: Left lateral middle back ulcer is almost healed. There is a small, superficial open area. Right flank cluster is starting to improve. There is a suture in the center ulcer where his oracle bpm consultant obtained a biopsy on Monday. Neuro CN's II-XII intact bilaterally Psych Appearance: grossly normal Debridement Note Debridement Note Post-Debridement Measurements and Additional Note: Post-Debridement Measurements/Treatment WC - Nurse 1 - General Ulcer Assessment Start: 08/18/20 15:27 Freq: Status: Active Protocol: ASHLEY Activity Type Activity Date Activity User E-Sign Co-Sign Detail Recorded Client Recorded Date Recorded By Document 08/18/20 15:28 PL [id number] 08/18/20 15:59 PL Document 08/24/20 08:22 DL [id number] 08/24/20 08:30 DL 08/18/20 08/24/20 15:28 08:22 - Today's Visit Information Type of service Follow-up Visit Follow-up Visit (Physician/CHILD CARE (Physician/CHILD CARE ) ) Arrival Mode Ambulatory Ambulatory Transfer Assistance None None Patient Identification Verified (Name & Yes ) Patient Requires Transmission-Based No No Precautions Safety Precautions NA Height and Weight Body Mass Index (BMI) 29.2 29.2 BMI Classification Overweight Overweight Vital Signs Temperature (97.8 F-99.1 F) 99.0 F 97.9 F Temperature Source Temporal Temporal Pulse Rate (60-100) 92 94 Pulse Location Monitor Respiratory Rate (12-18) 18 20 H Respiratory rate source Observation Blood Pressure (90/60-120/80) 120/68 125/70 H Blood Pressure Mean (mm Hg) 85 88 Source Monitor History Since Last Visit- (Skip if this is Patient's initial visit) Have you changed medications since your No No last visit? Any new allergies or adverse reactions No No Had a fall/change in ADL's that may No No increase risk of falls Signs or symptoms of abuse and/or No No neglect since last visit Have you been in the hospital since your No No last visit? Has dressing in place as prescribed No Yes Has compression in place as prescribed N/A N/A Has offloadiing in place as prescribed N/A N/A Experienced any changes in pain level or No No management Pain Scale: 0-10 Numeric Is Patient Pain Free? Yes Yes WC - Nurse 1 - General Ulcer Measurement Start: 08/18/20 15:27 Freq: Status: Active Protocol: Activity Type Activity Date Activity User E-Sign Co-Sign Detail Recorded Client Recorded Date Recorded By Document 08/24/20 08:22 YOSELYN [id number] 08/24/20 08:30 DL 08/24/20 08:22 Wound Center Nurse 1 #9 R Lower Side Posterior -Current Size (cm) - Length 9.4 -Current Size (cm) - Width 2.3 -Current Size (cm) - Depth 0.1 -Total Square Cm 21.62 -Photo Taken No -Exudate Amt Small -Wound Margin Indistinct, Non -Visible -Granulation Amt Large (67-100%) -Granulation Quality Red -Necrosis Amt None Present (0 %) -Structure Exposed N/A -Texture (Mayra-wound Skin Appearance) Scarring -Moisture (Mayra-wound Skin Appearance) No Abnormality -Color (Mayra-wound Skin Appearance) Erythema,Rubor -Temperature (Mayra-wound Skin No Abnormality Appearance) (Pt Warm) -Tenderness on Palpation (Mayra-wound No Skin Appearance) -Ulcer Cleansing Wound Cleanser -Foul Odor after Cleansing No #8 Right lower side Anterior -Current Size (cm) - Length 2.2 -Current Size (cm) - Width 1.1 -Current Size (cm) - Depth 0.1 -Total Square Cm 2.42 -Photo Taken No -Exudate Amt Small -Exudate Type Serosanguineous -Wound Margin Indistinct, Non -Visible -Granulation Amt Large (67-100%) -Granulation Quality Red -Necrosis Amt None Present (0 %) -Structure Exposed N/A -Texture (Mayra-wound Skin Appearance) Scarring -Moisture (Mayra-wound Skin Appearance) No Abnormality -Color (Mayra-wound Skin Appearance) Hemosiderin Staining,Rubor -Temperature (Mayra-wound Skin No Abnormality Appearance) (Pt Warm) -Tenderness on Palpation (Mayra-wound No Skin Appearance) -Ulcer Cleansing Wound Cleanser -Foul Odor after Cleansing No 6. L lumbar back -Current Size (cm) - Length 3 -Current Size (cm) - Width 1.2 -Current Size (cm) - Depth 0.1 -Total Square Cm 3.6 -Photo Taken No -Exudate Amt Small -Exudate Type Serosanguineous -Wound Margin Indistinct, Non -Visible -Granulation Amt Large (67-100%) -Granulation Quality Red -Necrosis Amt None Present (0 %) -Necrotic Tissue Type Adherent Slough -Texture (Mayra-wound Skin Appearance) Scarring -Moisture (Mayra-wound Skin Appearance) No Abnormality -Color (Mayra-wound Skin Appearance) Erythema,Rubor -Temperature (Mayra-wound Skin No Abnormality Appearance) (Pt Warm) -Tenderness on Palpation (Mayra-wound No Skin Appearance) -Ulcer Cleansing Wound Cleanser -Foul Odor after Cleansing No WC - Nurse 2 - General Ulcer CM Notes Start: 08/18/20 15:27 Freq: Status: Active Protocol: Activity Type Activity Date Activity User E-Sign Co-Sign Detail Recorded Client Recorded Date Recorded By Document 08/18/20 15:59 PL [id number] 08/18/20 16:03 PL Document 08/24/20 08:38 JF [id number] 08/24/20 08:41 JF Document 09/08/20 13:22 JF [id number] 09/08/20 13:23 JF 08/18/20 08/24/20 09/08/20 15:59 08:38 13:22 Wound Center Nurse 2 #9 R Lower Side Posterior -Time 15:35 -Correct Patient Yes No No -Correct Side, Site, Position Yes No No -Correct Procedure Yes No No -Procedure Performed Yes No No -Type of Procedure Debridement -Clinical Debridement Epidermis / Dermis -Tissue Removed Subcutaneous -Post Debridement (cm) - Length 2.7 -Post Debridement (cm) - Width 15.8 -Post Debridement (cm) - Depth 0.2 -Total Square (Post) (cm) 42.66 -Area of Debridement (cm) - Length 2.7 -Area of Debridement (cm) - Width 15.8 -Total Square (Area) (cm) 42.66 -Tunneling No -Undermining/Tunneling No -Circular Undermining No -Wound/Ulcer Outcome Not Healed Not Healed Not Healed -Ulcer Cleansing Rinsed/ Irrigated with Saline -Foul Odor after Cleansing No -Bioengineered Tissue No -Bleeding Controlled with Pressure -Treatment Response Procedure Tolerated Well -Debridement - Open, 1st 20sq cm Yes -Debridement, Open, ea addt'l 20sq cm 2 or part thereof -Debridement - Subq, 1st 20sq cm No #8 Right lower side Anterior -Correct Patient No No -Correct Side, Site, Position No No -Correct Procedure No No -Procedure Performed No No -Wound/Ulcer Outcome Not Healed Not Healed 6. L lumbar back -Time 15:35 -Correct Patient Yes No No -Correct Side, Site, Position Yes No No -Correct Procedure Yes No No -Procedure Performed Yes No No -Type of Procedure Debridement -Clinical Debridement Subcutaneous -Tissue Removed Subcutaneous -Post Debridement (cm) - Length 4.4 -Post Debridement (cm) - Width 1.2 -Post Debridement (cm) - Depth 0.2 -Total Square (Post) (cm) 5.28 -Area of Debridement (cm) - Length 4.4 -Area of Debridement (cm) - Width 1.2 -Total Square (Area) (cm) 5.28 -Tunneling No -Undermining/Tunneling No -Circular Undermining No -Wound/Ulcer Outcome Not Healed Not Healed Not Healed -Ulcer Cleansing Rinsed/ Irrigated with Saline -Foul Odor after Cleansing No -Bioengineered Tissue No -Debridement - Subq, 1st 20sq cm No Pain Scale: 0-10 Numeric Is Patient Pain Free? Yes Yes Yes WC - Nurse 3 - General Ulcer D/C NN Start: 08/18/20 15:27 Freq: Status: Active Protocol: Activity Type Activity Date Activity User E-Sign Co-Sign Detail Recorded Client Recorded Date Recorded By Document 08/24/20 09:02 YOSELYN [id number] 08/24/20 09:03 YOSELYN 08/24/20 09:02 Wound Care Nurse 3 #9 R Lower Side Posterior -Ulcer Cleansing Rinsed/ Irrigated with Saline -Primary Dressing Covered/Secured with Dry Gauze, Secured with Tape 6. L lumbar back -Primary Dressing Covered/Secured with Dry Gauze, Secured with Tape Pain Scale: 0-10 Numeric Is Patient Pain Free? 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 His patch testing was done and it was found he was allergic to Bee's wax.?He saw his oracle bpm consultant yesterday, 09/07/20, and she obtained a biopsy of his right flank ulcer. Wound care - he has completed 10 applications of Epifix to the left lateral middle back ulcer.? The oracle bpm consultant has started him on Tacrolimus 0.1% daily.? It is improving his ulcer on both his left lateral middle back and right flank area. He is continuing to have pain in both of the ulcer areas, especially with palpation.? I spoke with the oracle bpm consultant, Dr. Wilmer Hicks at [facility], several weeks ago and she is thinking this most likely is Pyoderma Gangrenosum.?Right middle lateral back ulcer remains healed.? He has seen a [employer] chiropractor/limited radiology technician.? He saw Dr. Jerez as a second opinion on the wound care in June, his plan is below.?Wound culture from each ulcer obtained on 08/18/20 due to increased pain.? Both the left middle back ulcer and the right flank ulcer cluster positive for Corynebacterium amycolatum and Anaerobic cocci. ? He was started on Augmentin and will refill his Percocet (14 tabs) PDMP reviewed.? Follow up 4 weeks.?
== END 2020-09-14 23:59 ==
LOC: WC 13:00
PROVIDERS: Family Provider Family Medicine; PCP Family Medicine; Referring Provider Nurse Practitioner Family; Visit Provider Nurse Practitioner Family
DX: E11.622 Type 2 diabetes mellitus with other skin ulcer (principal); L98.492 Non-pressure chronic ulcer of skin of other sites with fat layer exposed; T86.829 Unspecified complication of skin graft (allograft) (autograft)
CPT/HCPCS: 87070; 87075; 87077; 87205; 97597; 97598; 99213; G0463

== ENCOUNTER → 2020-10-06 06:55 | Outpatient (CLI) | payer OTHER, SELFPAY ==
[2020-10-02 14:12] VITALS: BMI 29.2
--- NOTE | 2020-10-06 06:58 | CT_ITS ---
ACR Level 3 findings have been noted. An addendum which confirms receipt of the report will follow. INDICATION: hemoptysis, SOB EXAMINATION: CT Chest W/ Contrast Injection TECHNIQUE: Helically acquired images were obtained of the chest following administration of IV contrast. A radiation dose optimization technique was used for this scan. 3D postprocessing images including MIPS were reviewed. IV Contrast dosage and agent: IV 100mL Isovue-300 COMPARISON: None. FINDINGS: Lungs: There is consolidation in the superior segment of the left lower lobe with surrounding clustered nodular opacities and few air bronchograms. 6 mm discrete pulmonary nodule in the right upper lobe (image 64, series 2). Mediastinum: The cardiomediastinal silhouette is not enlarged. There is left hilar adenopathy measuring 1.6 cm. No mediastinal or axillary adenopathy. Mild aortic arch and coronary artery calcifications. No obvious filling defect seen within the visualized pulmonary arteries. Pleura: Unremarkable Bones/Soft tissues: There are diffuse degenerative changes of the spine. Upper abdomen: No visualized abnormalities in the upper abdomen. CT/Chest WITH Contrast IMPRESSION: Consolidation in the superior segment of the left lower lobe with surrounding clustered nodular opacities. This is concerning for atypical infection. 6 mm discrete pulmonary nodule in the right upper lobe. Per Fleischner criteria, recommend follow-up Chest CT in 12 months. Electronically Signed: Denis Wade MD at 19:41 EDT Tel , Service support ,
[2020-10-06 08:39] LABS: CREATININE FINGERSTICK 0.9 mg/dL (0.70-1.30); EGFR FINGERSTICK > 60.0000 mL/min (>60)
== END ==
PROVIDERS: PCP Family Medicine; Referring Provider Physician Assistant; Visit Provider Physician Assistant
DX: R04.2 Hemoptysis (principal); R06.02 Shortness of breath
CPT/HCPCS: 71260; Q9967

== ENCOUNTER → 2020-10-16 14:25 | Outpatient (CLI) | payer OTHER, SELFPAY ==
[2020-10-16 13:31] VITALS: BMI 26.9
[2020-10-16 14:59] LABS: Absolute Lymphocyte Count 1.31 X10^3/uL (0.83-4.51); Absolute Neutrophil Count 3.4 X10^3/uL (2.0-7.7); Basophil# 0.04 X10^3/uL; Basophil% 0.7 % (0-1); Eosinophils% 1.9 % (0-5); Hemoglobin 11.5 g/dL (13.0-16.5); Lymphocyte # 1.31 X10^3/ul (0.83-4.51); Lymphocyte % 24.4 % (19-41); Mean Corp Hgb Conc 30.3 g/dL (32-36); Mean Corpuscular Hgb 27.1 pg (27.0-32.0); Mean Corpuscular Volume 89.4 fL (80-94); Mean Platelet Vol. 8.9 fl (6.2-12.0); Monocyte# 0.52 X10^3/uL; Monocyte% 9.7 % (0-10); NRBC Flagged by Analyzer 0 % (0-5); Neutrophil # 3.38 X10^3/uL (2.7-7.7); Neutrophil % 63.1 % (47-70); Platelet Count 270 K/mm3 (150-450); RBC Distribution Width CV 14.6 % (11.6-14.6); RBC Distribution Width SD 47.5 fl (35.1-43.9); Red Blood Count 4.25 M/mm3 (4.6-6.2); White Blood Count 5.4 K/mm3 (4.4-11.0)
== END ==
PROVIDERS: PCP Family Medicine; Referring Provider Physician Assistant; Visit Provider Physician Assistant
DX: J18.9 Pneumonia, unspecified organism (principal); R04.2 Hemoptysis
CPT/HCPCS: 36415; 85025

== ENCOUNTER → 2020-10-19 20:00 | Outpatient (CLI) | payer OTHER, SELFPAY ==
[2020-10-02 14:12] VITALS: BMI 29.2
== END ==
PROVIDERS: PCP Family Medicine; Referring Provider Physician Assistant; Visit Provider Physician Assistant
DX: G47.33 Obstructive sleep apnea (adult) (pediatric) (principal)
CPT/HCPCS: 95811

== ENCOUNTER → 2020-10-28 09:34 | Outpatient (CLI) | payer OTHER, SELFPAY ==
[2020-10-28 08:07] VITALS: BMI 26.9
--- NOTE | 2020-10-28 09:40 | RAD_ITS ---
STUDY: X-RAY CHEST REASON FOR EXAM: Male, 60 years old. pain with cough TECHNIQUE: Frontal and lateral views of the chest. COMPARISON: CT scan 10/06/2020, chest x-ray 02/26/2019. FINDINGS: Hyperexpansion of both lungs. Vague increased density projecting around the left hilum and probably located in the posterior left upper lobe is consistent with the opacity seen on CT scan. Although this could be inflammatory, neoplasm is not excluded. Recommend repeat CT with contrast. Right lung is clear. No effusions. Normal size heart. Question prominence of the left hilum. Normal visualized pulmonary arteries. Normal visualized aortic arch and descending thoracic aorta. Normal visualized thoracic spine. Normal visualized ribs, clavicles, and shoulders. There is no demonstrated abnormality of the visualized soft tissue structures of the upper abdomen. RAD/Chest PA and Lateral IMPRESSION: Probable persistent pulmonary opacity located directly behind the left hilum. This could be persistent pneumonia or mass. Recommend repeat CT of the chest with contrast. Electronically Signed: João Laughlin MD at 0:04 EDT , Service support ,
== END ==
PROVIDERS: PCP Family Medicine; Referring Provider Physician Assistant; Visit Provider Physician Assistant
DX: J18.9 Pneumonia, unspecified organism (principal); R52 Pain, unspecified; R05 Cough
CPT/HCPCS: 71046

== ENCOUNTER → 2021-01-19 08:09 | Outpatient (CLI) | payer OTHER, SELFPAY ==
--- NOTE | 2021-01-19 08:10 | CT_ITS ---
STUDY: CT Chest W/ Contrast Injection 01/19/2021 5:25 PM REASON FOR EXAM: Male, 60 years old. Consolidation mass up CT scan Individualized dose optimization techniques were used for this CT. TECHNIQUE: Transaxial imaging was performed with 75cc of ISO 350 IVIV contrast material. Comparison: 10.06.20 FINDINGS: There are degenerative changes of the shoulders. There is no pneumothorax. Resolution of the right middle lobe nodule. There is presently more of a scarlike appearance. Wedge-shaped chronic infiltrate in the superior segment of the left lower lobe. Overlying the infiltrate, there are multiple left lower lobe pulmonary nodules. These nodules measures up to 8 mm in size. There are calcifications of the coronary arteries. Normal mediastinum. Normal hilar regions. Normal pulmonary arteries. There is atherosclerotic calcification of the aortic arch with tortuosity and elongation of the aortic arch and descending thoracic aorta. There are multi-level degenerative changes of the thoracic spine. Focal wall thickening of the antrum of stomach. This can suggest a gastritis. CT/Chest WITH Contrast IMPRESSION: Gastritis. Wedge-shaped chronic infiltrate in the superior segment of the left lower lobe. Overlying the infiltrate, there are multiple left lower lobe pulmonary nodules. Overall, the findings are stable. Differential includes chronic pneumonia versus underlying neoplasm. Electronically Signed: Brian Gordon MD at 17:29 EDT , Service support ,
[2021-01-19 08:41] LABS: CREATININE FINGERSTICK 0.7 mg/dL (0.70-1.30); EGFR FINGERSTICK > 60.0000 mL/min (>60)
== END ==
PROVIDERS: PCP Family Medicine; Referring Provider Family Medicine; Visit Provider Family Medicine
DX: R93.89 Abnormal findings on diagnostic imaging of other specified body structures (principal)
CPT/HCPCS: 71260; Q9967

== ENCOUNTER 2021-04-22 11:29 | Outpatient (CLI) | payer OTHER, SELFPAY | END 2021-04-22 23:59 | disposition short-term general hospital (02) | LOC: LABSPEC 11:30 | PROVIDERS: PCP Family Medicine; Referring Provider Physician Assistant; Visit Provider Physician Assistant | DX: U07.1 COVID-19 (principal) | CPT/HCPCS: 87635; U0003; U0005 ==

== ENCOUNTER 2021-06-30 09:41 | Outpatient (CLI) | payer OTHER, SELFPAY | END 2021-06-30 23:59 | disposition home or self-care (01) | LOC: LABSPEC 09:46 | PROVIDERS: PCP Family Medicine; Visit Provider Family Medicine | DX: L98.492 Non-pressure chronic ulcer of skin of other sites with fat layer exposed (principal) | CPT/HCPCS: 87070; 87077; 87186; 87205 ==

== ENCOUNTER → 2021-09-28 | Outpatient (CLI) | payer OTHER, SELFPAY | END | disposition home or self-care (01) | LOC: LABSPEC 14:35 | PROVIDERS: PCP Family Medicine; Referring Provider Physician Assistant; Visit Provider Physician Assistant | DX: S21.209A Unspecified open wound of unspecified back wall of thorax without penetration into thoracic cavity, initial encounter (principal) | CPT/HCPCS: 87070; 87077; 87205 ==

== ENCOUNTER → 2024-03-29 | Outpatient (CLI) | payer OTHER, SELFPAY ==
[2024-03-29 11:58] LABS: Absolute Lymphocyte Count 1.12 X10^3/uL (0.83-4.51); Absolute Neutrophil Count 3.9 X10^3/uL (2.0-7.7); Basophil# 0.04 X10^3/uL; Basophil% 0.7 % (0-1); Eosinophil# 0.08 X10^3/uL; Eosinophils% 1.4 % (0-5); Hematocrit 41.7 % (40-54); Hemoglobin 12.8 g/dL (13.0-16.5); Lymphocyte # 1.12 X10^3/ul (0.83-4.51); Lymphocyte % 19.8 % (19-41); Mean Corp Hgb Conc 30.7 g/dL (32-36); Mean Corpuscular Hgb 27.9 pg (27.0-32.0); Mean Platelet Vol. 9.5 fl (6.2-12.0); Monocyte# 0.52 X10^3/uL; Monocyte% 9.2 % (0-10); NRBC Flagged by Analyzer 0 % (0-5); Neutrophil # 3.89 X10^3/uL (2.7-7.7); Neutrophil % 68.5 % (47-70); Platelet Count 243 K/mm3 (150-450); RBC Distribution Width CV 13.3 % (11.6-14.6); RBC Distribution Width SD 44.7 fl (35.1-43.9); Red Blood Count 4.58 M/mm3 (4.6-6.2); White Blood Count 5.7 K/mm3 (4.4-11.0)
[2024-03-29 12:24] LABS: ALB/GLOB Ratio 0.9 RATIO (0.9-2.4); AST(SGOT) 28 U/L (15-37); Alanine Aminotransfer ALT/SGPT 47 U/L (16-61); Albumin, Serum 3.4 g/dL (3.2-5.0); Alkaline Phosphatase 31 U/L (45-117); Anion Gap 4 (5-15); BUN 20 mg/dL (7-18); BUN/Creat Ratio 18.3 RATIO (10-20); Calcium,Total 9.4 mg/dL (8.5-10.1); Chloride 106 mmol/L (98-107); Creatinine, Serum 1.09 mg/dL (0.70-1.30); EST Glomerular Filtration Rate 72 mL/min (>60); Est Glom Filt Rate - Afr Amer 87 mL/min (>60); Globulin 3.9 g/dL (2.2-4.2); Glucose 116 mg/dL (74-106); Potassium 4.6 mmol/L (3.5-5.1); Protein, Total 7.3 g/dL (6.4-8.2); Sodium Level 139 mmol/L (136-145)
== END | disposition home or self-care (01) ==
LOC: BIMLAB 08:30
PROVIDERS: PCP Family Medicine; Referring Provider Family Medicine; Visit Provider Family Medicine
DX: L88 Pyoderma gangrenosum (principal); N18.1 Chronic kidney disease, stage 1
CPT/HCPCS: 36415; 80053; 85025

== ENCOUNTER → 2024-12-20 | Outpatient (CLI) | payer OTHER, MEDICARE, SELFPAY ==
[2024-12-20 16:47] LABS: PSA,Total - Annual Screen 0.91 ng/mL (0.02-4.00)
== END | disposition home or self-care (01) ==
LOC: BIMLAB 15:11
PROVIDERS: PCP Family Medicine; Visit Provider Physician Assistant
DX: R10.2 Pelvic and perineal pain (principal)
CPT/HCPCS: 36415; 84153; G0103

== ENCOUNTER → 2025-01-08 | Outpatient (CLI) | payer MEDICARE, OTHER, SELFPAY ==
--- NOTE | 2025-01-08 17:57 | CT_ITS ---
PROCEDURE: ABDOMEN/PELVIS WITH CONTRAST 01/08/2025 REASON FOR EXAM: ABDOMINAL PAIN TECHNIQUE: Procedure Code: [id number] Modality: CT Procedure: ABDOMEN/PELVIS WITH CONTRAST Coronal and Sagittal reconstruction series were provided. CONTRAST: Isovue 370 VOLUME: 100 mL One or more dose reduction techniques were used (e.g., Automated exposure control, adjustment of the mA and/or kV according to patient size, use of iterative reconstruction technique. RADIATION DOSE SUMMARY: CTDlvol: 31.94 mGy DLP: 1328.15 mGycm COMPARISON: None FINDINGS: Lung bases: Chronic interstitial changes in the lung bases with a noncalcified 8 mm nodule in the left lower lobe on axial image 2, there is a minimal amount of dependent atelectasis and fibrotic scarring in both lung bases. Liver: Diffuse fatty infiltration. Gallbladder: Unremarkable Spleen: Normal size. Pancreas: Normal size without evidence of mass surrounding inflammation or ductal dilation. Adrenals: Unremarkable Kidneys: No obstructive uropathy or suspicious solid renal lesion Bladder: Unremarkable Reproductive Organs: No suspicious pelvic mass Bowel: No CTA evidence of obstruction. Retained stool noted in the colon with scattered diverticula, no CT evidence of acute diverticulitis. Appendix: Normal appendix seen on coronal recon images 67 through 70 Lymph nodes: No suspicious mesenteric or retroperitoneal adenopathy Vasculature: Mild diffuse atherosclerotic calcifications are noted. Peritoneum / Retroperitoneum: No free fluid or air Bones: Degenerative bony changes in the lumbar spine and pelvis CT/Abdomen/Pelvis WITH Contrast IMPRESSION: Diffuse fatty infiltration of the liver, no discrete lesion No free intraperitoneal fluid, air, or suspicious adenopathy. Normal appendix visualized Retained stool in the colon with scattered diverticula, no CT evidence of acute diverticulitis Degenerative bony changes Reading Location: [id number]
== END | disposition home or self-care (01) ==
LOC: CT 17:56
PROVIDERS: PCP Family Medicine; Referring Provider Physician Assistant; Visit Provider Physician Assistant
DX: R10.33 Periumbilical pain (principal); R10.2 Pelvic and perineal pain
CPT/HCPCS: 74177; Q9967

== ENCOUNTER → 2025-02-11 | Outpatient (CLI) | payer MEDICARE, OTHER, SELFPAY ==
--- NOTE | 2025-02-11 13:35 | CT_ITS ---
PROCEDURE: CT/Chest WITH Contrast
== END | disposition home or self-care (01) ==
LOC: CT 13:26
PROVIDERS: PCP Family Medicine; Referring Provider Family Medicine; Visit Provider Family Medicine
DX: R91.8 Other nonspecific abnormal finding of lung field (principal)
CPT/HCPCS: 71260; Q9967; A4216

== ENCOUNTER → 2025-03-26 | Outpatient (CLI) | payer MEDICARE, OTHER, SELFPAY ==
--- NOTE | 2025-03-26 09:33 | RAD_ITS ---
PROCEDURE: KNEE 4 OR MORE VIEWS 03/26/2025 REASON FOR EXAM: KNEE PAIN TECHNIQUE: Procedure Code: RADKN Modality: DX Procedure: KNEE 4 OR MORE VIEWS Laterality: COMPARISON: None FINDINGS: Bones: No fracture. No suspicious bone lesion. Joints: Normal alignment. Mild degenerative changes. Effusion: No effusion. Soft tissues: Soft tissues are unremarkable. RAD/Knee 4 or More Views IMPRESSION: No acute osseous abnormality is noted in the left knee. Mild osteoarthritis of the left knee. Reading Location: [facility]
--- NOTE | 2025-03-26 09:33 | RAD_ITS ---
PROCEDURE: KNEE 4 OR MORE VIEWS 03/26/2025 REASON FOR EXAM: KNEE PAIN TECHNIQUE: Procedure Code: RADKN Modality: DX Procedure: KNEE 4 OR MORE VIEWS Laterality: Right COMPARISON: None FINDINGS: Bones: No fracture. No suspicious bone lesion. Joints: Normal alignment. Mild degenerative changes. Effusion: No effusion. Soft tissues: Soft tissues are unremarkable. RAD/Knee 4 or More Views IMPRESSION: No acute osseous abnormality in the right knee. Mild osteoarthritis of the rig ht knee. Reading Location: [facility]
== END | disposition home or self-care (01) ==
LOC: RAD 09:30
PROVIDERS: PCP Family Medicine; Referring Provider Family Medicine; Visit Provider Family Medicine
DX: M25.561 Pain in right knee (principal); M25.562 Pain in left knee
CPT/HCPCS: 73564